=== PATIENT | male | born 1950 | race Caucasian/White ===

== ENCOUNTER 2022-03-29 06:35 | Outpatient (CLI) | payer OTHER, SELFPAY | END 2022-03-29 06:36 | disposition home or self-care (01) | LOC: AMB 04-11 11:48 | PROVIDERS: Visit Provider Family Medicine | DX: R55 Syncope and collapse (principal) | CPT/HCPCS: A0425; A0427 ==

== ENCOUNTER 2022-03-29 07:03 | Observation (INO) | payer OTHER, SELFPAY ==
[2022-03-29] VITALS (44 sets, daily range): BP systolic 79–157; BP diastolic 50–88; PULSE 47–65; RESP 16–18; TEMP 36.1–36.7; O2SAT 91–99; BMI 30.6
--- NOTE | 2022-03-29 07:11 | CRLHL7_ITS ---
For Patients: As a result of the Century Cures Act, medical imaging exams and procedure reports are released immediately into your electronic medical record. You may view this report before your referring provider. If you have questions, please contact your health care provider. INDICATION: lightheadedness TECHNIQUE: Chest 1 view COMPARISON: 09/25/2012 FINDINGS: Cardiovascular and mediastinum: Cardiac silhouette upper limits of normal with slight tortuosity of the aorta and mild vascular calcifications. Lungs and pleural spaces: Lungs are clear. No sign of infiltrate or mass. No sign of pleural effusion. No pneumothorax. Bones and soft tissues: Bilateral shoulder replacement hardware. IMPRESSION: No acute cardiopulmonary disease. Dictated by Torsten Ruffin MD @ 03/29/2022 8:18:11 AM (Electronically Signed)
--- NOTE | 2022-03-29 07:13 | ED.GENADULT ---
HPI - General Adult General Time Seen by Provider: 07:13 Date Seen: 03/29/22 Chief complaint: Dizziness/Vertigo Stated complaint: Low heartrate Time Seen by Provider: 03/29/22 07:11 Source: patient, EMS and RN notes reviewed Mode of arrival: ambulatory Limitations: no limitations History of Present Illness HPI narrative: 72-year-old male history of coronary stents who presents today by EMS for lightheadedness. Patient said he was fatigued and slept all day yesterday. Today he was at work became lightheaded and sweaty. He took 2 nitroglycerin and EMS was called. Per EMS on arrival patient's heart rate was in the 50s with hypotension. Atropine was given for concern of symptomatic bradycardia the patient was brought to the emergency department. Patient denies shortness of breath, chest pain, nausea, vomiting, diarrhea, abdominal pain, lower extremity swelling. He denies recent falls or injuries. No black or tarry stools. No new medications. Does note a little bit of a cough and has a history of pneumonia a couple months ago. Related Data Home Medications Medication Instructions Recorded Confirmed albuterol sulfate 90 mcg/actuation 2 puff inhalation Q4-6H PRN 01/02/22 03/29/22 aerosol inhaler atorvastatin 80 mg tablet 80 mg PO QDAY 01/02/22 03/29/22 clopidogrel 75 mg tablet 75 mg PO QDAY 01/02/22 03/29/22 isosorbide mononitrate 60 mg 60 mg PO DAILY 01/02/22 03/29/22 tablet,extended release 24 hr lisinopril 20 mg tablet 20 mg PO QDAY 01/02/22 03/29/22 metoprolol succinate 25 mg 25 mg PO DAILY 01/02/22 03/29/22 tablet,extended release 24 hr nitroglycerin 0.4 mg sublingual 0.4 mg sublingual Q5M PRN 01/02/22 03/29/22 tablet aspirin 81 mg tablet,delayed 81 mg PO DAILY 03/29/22 03/29/22 release (Adult Low Dose Aspirin) Allergies Allergy/AdvReac Type Severity Reaction Status Date / Time No Known Allergies Allergy Unknown Unverified 01/02/22 15:10 [facility] Medical History (Updated 03/29/22 @ 08:14 by Trino Hernandez MD) Nonmalignant tumors Surgical History (Updated 01/02/22 @ 15:18 by Alicia Dean) H/O laminectomy History of appendectomy History of bladder surgery History of intravascular stent placement History of tonsillectomy History of total replacement of left shoulder joint (05/17/14) History of total replacement of right shoulder joint (05/07/13) Family History (Updated 01/02/22 @ 15:05 by Bina Dan CMA) Father Liver cancer Sister Liver cancer Brother Heart disease Social History (Updated 01/02/22 @ 15:06 by Bina Dan CMA) Smoking Status: Current every day smoker What tobacco products do you use: cigarettes Do you use any of these nicotine containing products: None Second hand tobacco smoke exposure: No How often do you have a drink containing alcohol: never AUDIT-C Alcohol total score: 0 Non-prescribed substance use: denies use Are you now , , , , never or living with a partner: Social isolation score (0-1 are the most socially isolated patients): 0 Exam Narrative: Exam Narrative: General: Well-developed and well-nourished, no acute distress Head: Atraumatic and normocephalic Eyes: Pupils are equal reactive, extraocular motions intact, conjunctiva clear ENT: External nose and ears are normal, posterior pharynx without erythema or exudate Neck: No midline cervical tenderness, full spontaneous range of motion the neck, trachea midline, no adenopathy Heart: Regular rate and rhythm no murmurs or thrills Lungs: Clear to auscultation bilaterally without wheezes or crackles Abdomen: Soft, nontender, nondistended with active bowel sounds Musculoskeletal: No tenderness, deformity, or edema Neurologic: Awake, alert, and oriented x3, no gross focal neurologic deficits, cranial nerves intact as tested Psych: Mood and affect are appropriate Skin: No rashes Const: Vital Signs, click to edit/add: Vital Signs - 24 hr 03/29/22 07:11 03/29/22 07:16 03/29/22 07:19 Temperature 96.9 F L Pulse Rate 62 63 Pulse Rate [Right Radial] 50 L Respiratory Rate 18 Blood Pressure 94/62 Blood Pressure [Ri ght Upper Arm] 113/65 Pulse Oximetry 96 92 92 Oxygen Delivery Me thod Room Air 03/29/22 07:20 03/29/22 07:25 03/29/22 07:29 Temperature Pulse Rate 65 60 61 Pulse Rate [Right Radial] Respiratory Rate Blood Pressure 79/50 L Blood Pressure [Ri ght Upper Arm] Pulse Oximetry 91 92 95 Oxygen Delivery Me thod 03/29/22 07:30 03/29/22 07:32 03/29/22 07:35 Temperature Pulse Rate 64 65 55 L Pulse Rate [Right Radial] Respiratory Rate Blood Pressure 95/57 L Blood Pressure [Ri ght Upper Arm] Pulse Oximetry 96 98 98 Oxygen Delivery Me thod 03/29/22 07:37 03/29/22 07:40 03/29/22 07:42 Temperature Pulse Rate 54 L 53 L 56 L Pulse Rate [Right Radial] Respiratory Rate Blood Pressure 108/59 L 108/59 L Blood Pressure [Ri ght Upper Arm] Pulse Oximetry 98 98 99 Oxygen Delivery Me thod 03/29/22 07:45 03/29/22 07:47 03/29/22 07:50 Temperature Pulse Rate 54 L 57 L 51 L Pulse Rate [Right Radial] Respiratory Rate Blood Pressure 108/60 Blood Pressure [Ri ght Upper Arm] Pulse Oximetry 99 99 99 Oxygen Delivery Me thod Course Course Hospital Course: Patient seen immediately on arrival, prior records reviewed. Differential diagnosis includes but not limited to acute coronary syndrome, dysrhythmia, symptomatic bradycardia, electrolyte disturbance, medication reaction, sepsis. Patient presents with near-syncope/lightheadedness at work, and also fatigue yesterday. Patient took 2 nitroglycerin prior to EMS arrival was found to be hypotensive little bradycardic. He is feeling better now, in the emergency department heart rate in the 60s and blood pressure initially 110s over 60s. No focal findings on exam. EKG and labs are ordered. Will monitor in the emergency department, IV fluids are given for hypotension although this may have been related to his self nitroglycerin administration and the bradycardia could be from vasovagal response. EKG with right bundle venus block no acute ischemic changes. Home medications reviewed include Lipitor, Plavix, Imdur, lisinopril, metoprolol, nitroglycerin Reevaluation(s) Reevaluation #1: Patient's blood pressures are drifting down although heart rate remains in the 60s. IV fluids have been initiated. Reviewed prior outpatient records, no diagnosis of heart failure, no echocardiogram but patient is not on a diuretic so in absence diagnosis of heart failure, will proceed with fluid resuscitation. Time: 07:32 Reevaluation #2: Troponin is negative, blood pressures remain 100s over 50s to 60s, heart rate stable around 50. Lactate is normal, remaining labs and chest x-ray are pending. Anticipate sign out to oncoming provider. Spoke about code status with the patient, he does not want to be intubated but would be agreeable to resuscitation otherwise. Time: 07:50 Reevaluation #3: Care discussed with Dr. Morales, patient accepted for admission. COVID test is positive which may be the source of his generalized weakness and lack of appetite. Time: 08:11 Vital Signs Vital signs: Initial Vital Signs Temperature 96.9 F L 03/29/22 07:11 Temperature Source Temporal Artery Scan 03/29/22 07:11 Pulse Rate 50 L 03/29/22 07:11 Pulse Rhythm 03/29/22 07:11 Respiratory Rate 18 03/29/22 07:11 Blood Pressure 113/65 03/29/22 07:11 Blood Pressure Mean 81 03/29/22 07:11 Blood Pressure Position Semi-Fowlers 03/29/22 07:11 Pulse Oximetry 96 03/29/22 07:11 Oxygen Delivery Method 03/29/22 07:11 Vital Signs Temperature 96.9 F L 03/29/22 07:11 Pulse Rate 50 L 03/29/22 07:11 Respiratory Rate 18 03/29/22 07:11 Blood Pressure 113/65 03/29/22 07:11 Pulse Oximetry 96 03/29/22 07:11 Oxygen Delivery Method 03/29/22 07:11 Temperature 96.9 F L 03/29/22 07:11 Pulse Rate 51 L 03/29/22 07:50 Respiratory Rate 18 03/29/22 07:11 Blood Pressure 108/60 03/29/22 07:47 Pulse Oximetry 99 03/29/22 07:50 Oxygen Delivery Method 03/29/22 07:11 Medical Decision Making Lab Data Labs: Lab Results 03/29/22 03/29/22 03/29/22 Range/Units 07:17 07:24 07:24 WBC 5.37 (4.50-11.00) K/uL RBC 4.83 (4.30-5.90) m/uL Hgb 14.3 (13.5-17.5) gm/dL Hct 42.7 (37.0-53.0) % MCV 88 (80-100) fL MCH 30 (26-34) pg MCHC 34 (32-36) gm/dL RDW Coeff of Alin 13.0 (11.5-15.5) % Plt Count 178 (140-440) K/uL Neut % (Auto) 70.2 (42.0-72.0) % Lymph % (Auto) 17.3 L (20-44) % [place] % (Auto) 11.7 H (0.0-11.0) % Eos % (Auto) 0.0 (0.0-7.0) % Baso % (Auto) 0.4 (0.0-3.0) % Neut # (Auto) 3.77 (1.7-7.0) K/uL Lymph # (Auto) 0.90 (0.90-2.90) K/uL [place] # (Auto) 0.60 (0.00-0.90) K/UL Eos # (Auto) 0.00 (0.00-0.50) K/uL Baso # (Auto) 0.02 (0.00-0.30) K/uL Abs Immat Gran (auto) 0.02 (0.00-0.30) K/uL Imm/Tot Granulo (auto) 0.4 % Sodium 137 (135-149) mmol/L Potassium 4.4 (3.6-5.1) mmol/L Chloride 104 (96-114) mmol/L Carbon Dioxide 29 (20-32) mmol/L BUN 23 (7-30) mg/dL Creatinine 1.0 (0.5-1.5) mg/dL Estimated GFR 79 ml/min Glucose 111 (60-115) mg/dL Lactate (0.5-1.9) mmol/L Calcium 8.9 (8.4-10.6) mg/dL Magnesium (1.5-2.6) mg/dL NT-Pro-B Natriuret Pep (0-125) PG/mL SARS-CoV-2 (PCR) POSITIVE SARS-CoV-2 A (Negative) Influenza Type A (PCR) Negative PCR FLU A (Negative) Influenza Type B (PCR) Negative PCR FLU B (Negative) POC Troponin I (0.01-0.04) ng/ml 03/29/22 03/29/22 03/29/22 Range/Units 07:24 07:24 07:24 WBC (4.50-11.00) K/uL RBC (4.30-5.90) m/uL Hgb (13.5-17.5) gm/dL Hct (37.0-53.0) % MCV (80-100) fL MCH (26-34) pg MCHC (32-36) gm/dL RDW Coeff of Alin (11.5-15.5) % Plt Count (140-440) K/uL Neut % (Auto) (42.0-72.0) % Lymph % (Auto) (20-44) % [place] % (Auto) (0.0-11.0) % Eos % (Auto) (0.0-7.0) % Baso % (Auto) (0.0-3.0) % Neut # (Auto) (1.7-7.0) K/uL Lymph # (Auto) (0.90-2.90) K/uL [place] # (Auto) (0.00-0.90) K/UL Eos # (Auto) (0.00-0.50) K/uL Baso # (Auto) (0.00-0.30) K/uL Abs Immat Gran (auto) (0.00-0.30) K/uL Imm/Tot Granulo (auto) % Sodium (135-149) mmol/L Potassium (3.6-5.1) mmol/L Chloride (96-114) mmol/L Carbon Dioxide (20-32) mmol/L BUN (7-30) mg/dL Creatinine (0.5-1.5) mg/dL Estimated GFR ml/min Glucose (60-115) mg/dL Lactate 1.3 (0.5-1.9) mmol/L Calcium (8.4-10.6) mg/dL Magnesium (1.5-2.6) mg/dL NT-Pro-B Natriuret Pep 206 H (0-125) PG/mL SARS-CoV-2 (PCR) (Negative) Influenza Type A (PCR) (Negative) Influenza Type B (PCR) (Negative) POC Troponin I 0.00 L (0.01-0.04) ng/ml 03/29/22 Range/Units 07:24 WBC (4.50-11.00) K/uL RBC (4.30-5.90) m/uL Hgb (13.5-17.5) gm/dL Hct (37.0-53.0) % MCV (80-100) fL MCH (26-34) pg MCHC (32-36) gm/dL RDW Coeff of Alin (11.5-15.5) % Plt Count (140-440) K/uL Neut % (Auto) (42.0-72.0) % Lymph % (Auto) (20-44) % [place] % (Auto) (0.0-11.0) % Eos % (Auto) (0.0-7.0) % Baso % (Auto) (0.0-3.0) % Neut # (Auto) (1.7-7.0) K/uL Lymph # (Auto) (0.90-2.90) K/uL [place] # (Auto) (0.00-0.90) K/UL Eos # (Auto) (0.00-0.50) K/uL Baso # (Auto) (0.00-0.30) K/uL Abs Immat Gran (auto) (0.00-0.30) K/uL Imm/Tot Granulo (auto) % Sodium (135-149) mmol/L Potassium (3.6-5.1) mmol/L Chloride (96-114) mmol/L Carbon Dioxide (20-32) mmol/L BUN (7-30) mg/dL Creatinine (0.5-1.5) mg/dL Estimated GFR ml/min Glucose (60-115) mg/dL Lactate (0.5-1.9) mmol/L Calcium (8.4-10.6) mg/dL Magnesium 1.9 (1.5-2.6) mg/dL NT-Pro-B Natriuret Pep (0-125) PG/mL SARS-CoV-2 (PCR) (Negative) Influenza Type A (PCR) (Negative) Influenza Type B (PCR) (Negative) POC Troponin I (0.01-0.04) ng/ml ECG Data Attestation: I personally reviewed and interpreted this ECG as follows: Prior ECG tracings: available for review Interpretation: Normal sinus rhythm rate 70, no acute ST elevations or depressions, normal axis, right bundle-branch block, [place] 176. Compared to prior of 2013, right bundle-branch block is new. Discharge Plan Discharge Clinical Impression: Acute hypotension, COVID, Near syncope Prescriptions: No Action clopidogrel 75 mg tablet 75 mg PO QDAY lisinopril 20 mg tablet 20 mg PO QDAY isosorbide mononitrate 60 mg tablet extended release 24 hr 60 mg PO DAILY nitroglycerin 0.4 mg tablet, sublingual 0.4 mg sublingual Q5M PRN albuterol sulfate 90 mcg/actuation HFA aerosol inhaler 2 puff inhalation Q4-6H PRN atorvastatin 80 mg tablet 80 mg PO QDAY metoprolol succinate 25 mg tablet extended release 24 hr 25 mg PO DAILY aspirin [Adult Low Dose Aspirin] 81 mg tablet,delayed release (DR/EC) 81 mg PO DAILY Follow Up/Referrals: Provider,Not a Local [Primary Care Provider] -
[2022-03-29] MEDS: 0.9 % SODIUM CHLORIDE 1000 ml 1,000 ML IV (07:22)
[2022-03-29 07:33] LABS: Lactate* 1.3 mmol/L (0.5-1.9)
[2022-03-29 07:40] LABS: Basophils Absolute Auto 0.02 K/uL (0.00-0.30); Basophils Percent Auto 0.4 % (0.0-3.0); Hematocrit 42.7 % (37.0-53.0); Hemoglobin* 14.3 gm/dL (13.5-17.5); Immature Granulocytes Abs Auto 0.02 K/uL (0.00-0.30); Immature Granulocytes Pct Auto 0.4 %; Lymphocytes Percent Auto 17.3 % (20-44); Mean Corpuscular HGB Conc 34 gm/dL (32-36); Mean Corpuscular Hemoglobin 30 pg (26-34); Mean Corpuscular Volume 88 fL (80-100); Monocytes Percent Auto 11.7 % (0.0-11.0); Neutrophils Absolute Auto 3.77 K/uL (1.7-7.0); Neutrophils Percent Auto 70.2 % (42.0-72.0); Platelet Count* 178 K/uL (140-440); Red Blood Count 4.83 m/uL (4.30-5.90); White Blood Count* 5.37 K/uL (4.50-11.00)
--- OUTSIDE RECORDS SUMMARY | 2022-03-29 07:43 | XMS_ITS | Encounter Summary ---
:1950 Author Organization [facility] Address [address] [place] [address] Care Team Providers Name Role Phone Faiza Truong D.O. Primary Care Provider [phone] Reason for Referral Outpatient (Routine) - Closed Specialty Diagnoses / Procedures Referred By Contact Refer red To Contact Diagnoses Pre[facility]am [facility] 12 Lead D.OBhavesh [address] [place] [address] [phone] Referral ID Status Reason Start Date Expiration Date Visits Requ ested Visits Authorized [id number] Closed 03/20/2022 03/20/2023 1 1 T ROOM ATTENDANT Reason for Visit Reason Comments Pre-op Exam Pre op physical for colonosc opy scheduled for 04/09/2022 at [facility] with Dr Calvin Appointment Request (Routine) - Closed Specialty Diagnoses / Procedures Referred By Contact Refer red To Contact Family Medicine Faiza Truong D.O. [address] [place] [phone] Referral ID Status Reason Start Date Expiration Date Visits Requ ested Visits Authorized [id number] Closed 01/15/2022 01/15/2023 1 Encounter Details Date Type Department Care Team Description 03/20/2022 Office Visit Department of [facility] Preoperativ e Exam (Primary Dx); Internal Medicine in , [place] Abuse Tobacco Smoking; [place], [place] [address] Coronary Stent Status Post; [address] [place], [place] Hypertensive Heart And Chron ic Kidney Disease Without Heart Failure And With Stage 2 (Mild) Chronic Kidney Disease[facility] [place] [address] Tobacco Abuse Counseling; [phone] Hyperlipidemia Social History Tobacco Use Types Packs/Day Years Used Date Smoking Tobacco: Some Days Cigarettes 0.3 52 Smokeless Tobacco: Never Tobacco Cessation: Ready to Quit: No; Co unseling Given: Yes Comments: does have a few cigarettes per week. Alcohol Use Standard Drinks/Week Comments No 0 (1 standard drink = 0.6 oz pure alcoho l) Alcohol Habits Answer Date Recorded How often do you have a drink containing alcohol? Monthly or less 04/16/2019 How many drinks containing alcohol do you have on a 1 or 2 04/16/2019 typical day when you are drinking? How often do you have six or more drinks on one Never 04/16/2019 occasion? Social Isolation Answer Date Recorded In a typical week, how many times do you talk on the phone N ever 04/16/2019 with family, friends, or neighbors? How often do you get together with friends or relatives? Twi ce a week 04/16/2019 How often do you attend jehovah's witness or confucianism services? Never 04/16/2019 Do you belong to any clubs or organizations such as jehovah's witness N o 04/16/2019 groups, unions, fraternal or athletic groups, or school groups? How often do you attend meetings of the clubs or Not asked organizations you belong to? Are you now , , , , never Not asked or living with a partner? Physical Activity Answer Date Recorded On average, how many days per week do you engage in moderate 3 days 04/16/2019 to strenuous exercise (like walking fast, running, jogging, dancing, swimming, biking, or other activities that cause a light or heavy sweat)? On average, how many minutes do you engage in exercise at No t asked this level? Financial Resource Strain Answer Date Recorded How hard is it for you to pay for the very basics like Not h renata at all 04/16/2019 food, housing, medical care, and heating? Intimate Partner Violence Answer Date Recorded Within the last year, have you been afraid of your partner o r No 04/16/2019 ex-partner? Within the last year, have you been humiliated or emotionall y No 04/16/2019 abused in other ways by your partner or ex-partner? Within the last year, have you been kicked, hit, slapped, or No 04/16/2019 otherwise physically hurt by your partner or ex-partner? Within the last year, have you been raped or forced to have any No 04/16/2019 kind of sexual activity by your partner or ex-partner? Food Insecurity Answer Date Recorded Within the past 12 months, you worried that your food would Never true 04/16/2019 run out before you got money to buy more. Within the past 12 months, the food you bought just didn't N ever true 04/16/2019 last and you didn't have money to get more. Transportation Needs Answer Date Recorded In the past 12 months, has lack of transportation kept you f rom No 04/16/2019 medical appointments or from getting medications? In the past 12 months, has lack of transportation kept you f rom No 04/16/2019 meetings, work, or getting things needed for daily living? Education Answer Date Recorded What is the highest level of school Bachelor's degree (e.g., BA, AB, 04/16/2019 you have completed or the highest BS) degree you have received? 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 documented as of this encounter Last Filed Vital Signs Vital Sign Reading Time Taken Comments Blood Pressure 133/76 03/20/2022 3:13 PM GUEST ROOM ATTENDANT Pulse 80 03/20/2022 3:13 PM GUEST ROOM ATTENDANT Temperature 36.8 ??C (98.3 ??F) 03/20/2022 3:13 PM GUEST ROOM ATTENDANT Respiratory Rate 20 03/20/2022 3:13 PM GUEST ROOM ATTENDANT Oxygen Saturation 95% 03/20/2022 3:13 PM GUEST ROOM ATTENDANT room ai r Inhaled Oxygen Concentration - - Weight 92.5 kg (203 lb 14.8 oz) 03/20/2022 3:13 PM GUEST ROOM ATTENDANT Height 172 cm (5' 7.72) 03/20/2022 3:13 PM GUEST ROOM ATTENDANT Body Mass Index 31.27 03/20/2022 3:13 PM GUEST ROOM ATTENDANT documented in this encounter Patient Instructions Patient InstructionsFaiza Truong D.O. - 03/20/2022 3:30 PM GUEST ROOM ATTENDANT Stop Plavix 5 days before procedure Continue with the aspirin due to coronary stents T ROOM ATTENDANT documented in this encounter H&P Notes Faiza Truong D.O. - 03/20/2022 3:30 PM CST INTERNAL MEDICINE PREOPERATIVE EXAM: DATE OF SERVICE 03/20/[address] [facility] CHIEF COMPLAINT/REASON FOR VISIT Preoperative exam Chief Complaint Patient presents with Pre-op Exam Pre op physical for colonoscopy scheduled for 04/09/2022 at [facility] with Dr Calvin REFERRED BY/ SURGEON: HISTORY OF PRESENT ILLNESS Seven Salazar is a pleasant 72-year-old male with a the past medical history significant for coronary disease status post stenting 2016, history of ongoing tobacco use, hyperlipidemia presents today for his preoperative evaluation to undergo screening colonoscopy. From a cardiovascular standpoint, the patient has had history of coronary disease with stable angina. He has had multiple stents placed back in 2017 this was followed by a non ST elevation IA in July of 2017 with repeat coronary angiogram revealing nonobstructive but diffuse coronary artery disease. . He has been managed with dual antiplatelet therapy Imdur beta-muna and dietary modifications. Unfortunately he continues to smoke but has decreased his tobacco use significantly to 1 pack a week. He was provided with counseling on importance of complete cessation due to his history. The patient rod his feet most of the day, continues to be active and work at [employer]. Can perform more than 4 Mets with no significant cardiopulmonary symptoms. He denies any melena or hematochezia he denies any new GI symptoms, no upper respiratory infection genitourinary symptoms. We discussed stopping Plavix 5 days prior to procedure but he will continue with aspirin. He can otherwise continue the rest of his o ther medications. No history of PE DVT no history of anesthesia reaction. 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 Per X-Ray Depression Anxiety 03/25/2016 DJD (OA) Knee Guy 09/30/2013 Elevated Sedimentation Rate 02/15/2010 Erosions Antral 07/03/2015 Hernia Diaphragmatic Without Obstruction 12/24/2011 Hyperlipidemia 05/15/2015 Hypertensive Heart And Chronic Kidney Disease Without Heart Failure And With Stage 2 (Mild) ChronicKidney Disease 03/31/2017 Impaired Fasting Glucose 04/16/2019 Insomnia 08/26/2016 Lipoma Skin 02/12/2010 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[facility]) 03/18/2010 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, status post excision Mass Kidney 03/15/2015 Migraine Headache 07/01/2011 Myalgia 04/17/2015 Non-ST Elevation Myocardial Infarction ([facility]) 03/31/2017 Obesity NOS 02/15/2010 Pain Back 07/03/2015 Polymyalgia Rheumatica ([facility]) 04/17/2015 Presbyopia 10/07/2011 Reflux Esophageal 12/24/2011 Seizure Partial Complex ([facility]) 03/23/2004 Stricture Urethra 02/05/2016 Stroke ([facility]) 03/23/2004 Past Surgical History: Procedure Laterality Date APPENDECTOMY 02/23/1968 ARTHROPLASTY OF SHOULDER Right 05/07/2013 CATARACT EXTRACTION AND INSERTION OF INTRAOCULAR LENS Right 08/16/2008 CATARACT EXTRACTION AND INSERTION OF INTRAOCULAR LENS Left 02/22/2009 CERVICAL LAMINECTOMY 05/31/1999 Left C5-C6 foraminotomy and hemilaminectomy, left C6-C7 foraminotomy and hemilaminectomy and diskectomy. COLONOSCOPY 2005 COLONOSCOPY 11/26/2011 Repeat in 10 years CORONARY STENT PLACEMENT 03/22/2017 RCA and left circumflex CORONARY STENT PLACEMENT 03/24/2017 mid LAD EXCISION LIPOMA 02/19/2010 EXCISION LIPOMA Posterior 07/16/1999 >Excision of large back lipoma. EXCISION OF LESION OF SKIN 06/04/2013 Dermal nevus on left cheek/nasolabial fold HEAD & NECK SKIN LESION EXCISIONAL BIOPSY 04/11/1998 Excision of benign lesion of scalp and neck SQUAMOUS CELL CARCINOMA EXCISION 12/31/2017 Left superior helix TRANSURETHRAL RESECTION OF BLADDER TUMOR 02/19/2010 Non invasive papillary urothelial carcinoma, Grade 1 of 3 Family History Problem Relation Age of Onset Hypertension Mother Cataracts Mother Glaucoma Mother Cancer Father Hearing loss Father Parkinsons disease Father Pancreatic cancer Father Liver cancer Father Cancer Sister Lung cancer Sister Hypertension Brother Asthma Brother Coronary artery disease Brother Heart attack Brother Social History Socioeconomic History Marital status: Spouse name: Not on file Number of children: Not on file Years of education: Not on file Highest education level: Bachelor's degree (e.g., BA, AB, BS) Occupational History Not on file Tobacco Use Smoking status: Some Days Packs/day: 0.25 Years: 52.00 Pack years: 13.00 Types: Cigarettes Smokeless tobacco: Never Tobacco comments: does have a few cigarettes per week. Vaping Use Vaping Use: never used Substance and Sexual Activity Alcohol use: No Drug use: No Sexual activity: Defer Other Topics Concern Not on file Social History Narrative Caffeine: 2 cups coffee daily Social Determinants of Health Financial Resource Strain: Not on file Food Insecurity: Not on file Transportation Needs: Not on file Physical Activity: Not on file Stress: Not on file Social Connections: Not on file Intimate Partner Violence: Not on file Housing Stability: Not on file Social History Social History Narrative Caffeine: 2 cups coffee daily Current Outpatient Medications on File Prior to Visit Medication Sig Dispense Refill albuterol 90 mcg/actuation inhaler INHALE 2 PUFFS BY MOUTH 4 TIMES DAILY NEEDED FOR WHEEZING FORSHORTNESS OF BREATH 54 g [address] tablet Take 81 mg by mouth daily. atorvastatin (LIPITOR) 80 mg tablet Take 1 tablet (80 mg total) by mouth at bedtime. 90 tablet 3 clopidogreL (PLAVIX) 75 mg tablet Take 1 tablet by mouth once daily 90 tablet 3 isosorbide mononitrate (IMDUR) 60 mg 24 hr tablet TAKE 1 TABLET BY MOUTH ONCE DAILY IN THE MORNING 90 tablet 3 lisinopriL (PRINIVIL,ZESTRIL) 20 mg tablet Take 1 tablet (20 mg total) by mouth every morning. 90 tablet 3 metoprolol succinate (TOPROL-XL) 25 mg 24 hr tablet Take 1 tablet (25 mg total) by mouth daily. Do not crush or chew. 90 tablet 3 nitroglycerin (NITROSTAT) 0.[address] 1 tablet (0.4 mg total) under the tongue every 5 (five) minutes as needed for chest pain. Place 1 tab under the tongue at first sign of chest pain. Repeat dose every 5 min up to 2 additional doses if chest pain continues. If no relief in 5 min, call 911. 25 tablet 11 No current facility-administered medications on file prior to visit. SYSTEMS REVIEW A comprehensive review of systems is negative except for those items stated within the content of the HPI. Blood pressure 133/76, pulse 80, temperature 36.8 ??C, temperature source Temporal, resp. rate 20, height 172 cm, weight 92.5 kg, SpO2 95 %. PHYSICAL EXAMINATION GENERAL: Well-nourished, well-developed 72 y.o. year old in no apparent distress. Awake, alert, age appropriate. HEENT: Head is normocephalic, atraumatic. Bilateral pupils are equal, reactive to light, and accommodation. EOMs intact. Conjunctivae and sclera are clear. Bilateral external ears nontender to manipulation with clear canals. Bilateral TMs normal. Hearing is grossly normal. Nares patent with normal mucosa. Oropharynx pink and moist without exudate or erythema. NECK: Neck is supple. Thyroid is normal size and shape. Trachea is midline. CARDIOVASCULAR: Regular rate and rhythm. S1, S2 without murmurs. No rubs or gallops. No Lower extremity edema LUNGS: Clear to auscultation in bilateral anterior and posterior chest with easy respirations. ABDOMEN: Bowel sounds present throughout. Rounded, soft, without tenderness to palpation with no organomegaly. SKIN: Warm, pink, and dry. No rashes, excoriations, open areas. MUSCULOSKELETAL: normal musculature, and joint structure, Normal range of motion in all extremities.5/5 strength in bilateral upper and lower extremities with full ROM. LYMPHATIC: No cervical, submandibular, supraclavicular adenopathy. NEUROLOGIC: Alert and oriented x 3. CN II-XII grossly intact. Bilateral brachioradialis, patellar, and Achilles tendon DTRs 2+/4+ bilaterally. Strength and tone normal in upper and lower extremities. Reflexes are symmetric DIAGNOSTICS: Lab Results Component Value Date WBC 11.2 (H) 12/09/2021 HGB 14.2 12/09/2021 HCT 41.7 12/09/2021 MCV 88 12/09/2021 PLT 211 12/09/2021 Lab Results Component Value Date NA 139 03/19/2022 CL 99 03/19/2022 CREATININE 0.98 03/19/2022 EGFR 81 03/19/2022 BUN 21 03/19/2022 ANIONGAP 10 03/19/2022 GLUCOSE 70 03/19/2022 GLUCOSE CANCELED 03/19/2022 CALCIUM 10.2 03/19/2022 Latest Reference Range & Units 03/19/22 14:56 Sodium, P 135 - 145 mmol/L 139 Potassium, P 3.6 - 5.2 mmol/L 4.6 Chloride, P 98 - 107 mmol/L 99 Bicarbonate, P 22 - 29 mmol/L 30 (H) Anion Gap, P 7 - 15 10 BUN (Blood Urea Nitrogen), P 8 - 24 mg/dL 21 Creatinine 0.74 - 1.35 mg/dL 0.98 Estimated GFR (eGFR) >=60 mL/min/BSA 81 Calcium, Total, P 8.8 - 10.2 mg/dL 10.2 Glucose 70 - 100 mg/dL 70 Glucose, P mg/dL CANCELED (H): Data is abnormally high EKG 03/20/2022: Normal sinus rhythm Premature atrial complexes Low voltage QRS Right bundle branch block with secondary ST-T abnormalities When compared with ECG of 02-MAR-2018 12:39, No significant change was found Reviewed by LETTY Singh IMPRESSION/REPORT/PLAN Seven was seen today for pre-op exam. Diagnoses and all orders for this visit: Preoperative Exam Abuse Tobacco Smoking Coronary Stent Status Post Hypertensive Heart And Chronic Kidney Disease Without Heart Failure And With Stage 2 (Mild) Chronic Kidney Disease Tobacco Abuse Counseling Hyperlipidemia rom a cardiovascular standpoint, the patient has had history of coronary disease with stable angina.He has had multiple stents placed back in 2017 this was followed by a non ST elevation IA in July of 2017 with repeat coronary angiogram revealing nonobstructive but diffuse coronary artery disease. .He has been managed with dual antiplatelet therapy Imdur beta-muna and dietary modifications. Unfortunately he continues to smoke but has decreased his tobacco use significantly to 1 pack a week. Hewas provided with counseling on importance of complete cessation due to his history. The patient is on his feet most of the day, continues to be active and work at [employer]. Can perform more than 4 Mets with no significant cardiopulmonary symptoms. He denies any melena or hematochezia he denies any newGI symptoms, no upper respiratory infection genitourinary symptoms. We discussed stopping Plavix 5 days prior to procedure but he will continue with aspirin. He can otherwise continue the rest of his ot her medications. No history of PE DVT no history of anesthesia reaction. Seven Salazar presented today for preoperative examination. Based on his history and examination they are medically optimized for surgical intervention from the perspectiveof internal medicine. No further workup is required at this time. Electronically signed by: Faiza Truong D.O. 03/20/22 3:27 PM GUEST ROOM ATTENDANT T ROOM ATTENDANT documented in this encounter Plan of Treatment Upcoming Encounters Date Type Specialty Care Team Description 04/12/2022 Office Visit Cardiovascular Disease Simone Gooden AP RN, C.N.P. [address] [address] [phone] (Wo rk) documented as of this encounter Results ECG 12 Lead (03/20/2022 4:21 PM GUEST ROOM ATTENDANT) P athologist Signature Ventricular Rate 72 BPM MUSE ECG/Min [place] Interval 194 ms MUSE QRSD Interval 130 ms MUSE QT Interval 424 ms MUSE QTC Interval 464 ms MUSE P [place] 81 degrees MUSE R [place] 20 degrees MUSE T Wave [place] 50 degrees MUSE Specimen Anatomical Collection Method Collection Time Receive d Time (Source) Location / / Volume Laterality 03/20/2022 4:21 PM 4:32 GUEST ROOM ATTENDANT PM GUEST ROOM ATTENDANT Impressions MUSE - 03/20/2022 4:32 PM GUEST ROOM ATTENDANT Normal sinus rhythm Premature atrial complexes Low voltage QRS Right bundle branch block with secondary ST-T abnormalities When compared with ECG of 02-MAR-2018 12 :39, No significant change was found Reviewed by LETTY Singh Narrative This result has an attachment that is no t available. Procedure Note Javi Dow M.D. - 03/20/2022Format ting of this note might be different from the original. IMPRESSION: Normal sinus rhythm Premature atrial complexes Low voltage QRS Right bundle branch block with secondary ST-T abnormalities When compared with ECG of 02-MAR-2018 12 :39, No significant change was found Reviewed by LETTY Singh Faiza Truong D.O. ECG ORDERABLES Performing Organization Address City/State/ZIP Code Phon e Number MUSE MUSE NA documented in this encounter Visit Diagnoses Diagnosis Preoperative Exam - Primary Abuse Tobacco Smoking Coronary Stent Status Post Hypertensive Heart And Chronic Kidney Di sease Without Heart Failure And With Stage 2 (Mild) Chronic Kidney Disease Tobacco Abuse Counseling Hyperlipidemia Preoperative Exam documented in this encounter Additional Health Concerns Assessment Noted Time PHQ-9 Depression Total Score: 3 10/31/2020 10:00 AM CD T documented as of this encounter Care Teams Travel Freight And Passenger Agent Relationship Specialty Start Date End Date Faiza Truong D.O. PCP - General Internal Medicine 10/19/19 [address] [place] [phone] documented as of this encounter
--- OUTSIDE RECORDS SUMMARY | 2022-03-29 07:43 | XMS_ITS | Encounter Summary ---
:1950 Author Organization [facility] Address [address] [place] [address] Care Team Providers Name Role Phone Faiza Truong D.O. Primary Care Provider [phone] Reason for Visit Reason Comments Med Refill Encounter Details Date Type Department Care Team Description 01/14/2022 Refill Department of Internal Jillian Gil M.D. Med Refill Medicine in [facility] [address] [place] [address] [address] [place] [address] [facility] [phone] Social History Tobacco Use Types Packs/Day Years Used Date Smoking Tobacco: Some Days Cigarettes 0.3 52 Smokeless Tobacco: Never Comments: does have a few cigarettes per [...] week 04/16/2019 How often do you attend buddhist or scientology services? 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 [address] [phone] (Wo rk) documented as of this encounter Visit Diagnoses Not on filedocumented in this encounter Additional Health Concerns Assessment Noted Time PHQ-9 Depression Total Score: 3 10/31/2020 10:00 AM CD T documented as of this encounter Care Teams [place] Relationship Specialty Start Date End Date Faiza Truong D.O. PCP - General Internal Medicine 10/19/[address] [phone] documented as of this encounter
--- OUTSIDE RECORDS SUMMARY | 2022-03-29 07:43 | XMS_ITS | Clinical Summary ---
:1950 Author Organization [facility] Address [address] [place] [address] Care Team Providers Name Role Phone Faiza Truong D.O. Primary Care Provider [phone] Source Comments Patient records contain information from all sites at [facility]. For routine questions regarding patient records, call [phone] during business hours, M-F 8:00 AM - 5:00 PM Central Time. Record requests for emergency care only can be directed to [phone] at any time.[facility] Allergies Active Allergy Reactions Severity Noted Date Comments Bupropion Hcl Other (see comments) 02/06/2015 Eliceo listed no reactions. Suic idal thoughts. Citalopram Diarrhea 06/10/2016 Influenza Virus Vaccine Other (see comments) 5 Sickness, Bivalent Eliceo listed n o reactions. Pravastatin Myalgia, Other (see 03/20/2015 comments) Medications Medication Sig Dispensed Refills Start Date End Date Status aspirin [address] Take 81 mg by 0 Active tablet mouth daily. nitroglycerin Place 1 tablet 25 tablet 11 02/13/2021 Active (NITROSTAT) 0.4 mg SL (0.4 mg total) tablet under the tongue every 5 (five) minutes as needed for chest pain. Place 1 tab under the tongue at first sign of chest pain. Repeat dose every 5 min up to 2 additional doses if chest pain continues. If no relief in 5 min, call 466. lisinopriL Take 1 tablet (20 90 tablet 3 05/01/2021 Active (PRINIVIL,ZESTRIL) 20 mg total) by mg tabletIndications: mouth every Hypertensive Heart morning. And Chronic Kidney Disease Without Heart Failure And With Stage 2 (Mild) Chronic Kidney Disease atorvastatin Take 1 tablet (80 90 tablet 3 05/01/2021 05/01/20 22 Active (LIPITOR) 80 mg mg total) by tabletIndications: mouth at bedtime. Hyperlipidemia metoprolol succinate Take 1 tablet (25 90 tablet 3 05/01/2021 Active (TOPROL-XL) 25 mg 24 mg total) by hr tabletIndications: mouth daily. Do Hypertensive Heart not crush or And Chronic Kidney chew. Disease Without Heart Failure And With Stage 2 (Mild) Chronic Kidney Disease clopidogreL (PLAVIX) Take 1 tablet by 90 tablet 3 10/26/2021 Active 75 mg tablet mouth once daily albuterol 90 INHALE 2 PUFFS BY 54 g 3 01/16/2022 Active mcg/actuation inhaler MOUTH 4 TIMES DAILY NEEDED FOR WHEEZING FOR SHORTNESS OF BREATH isosorbide TAKE 1 TABLET BY 90 tablet 3 02/26/2022 A ctive mononitrate (IMDUR) MOUTH ONCE DAILY 60 mg 24 hr IN THE MORNING tabletIndications: Coronary Stent Status Post, Hypertensive Heart And Chronic Kidney Disease Without Heart Failure And With Stage 2 (Mild) Chronic Kidney Disease Active Problems Patient Care Coordination Note Formatting of this note might be differe nt from the original. 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 Anemia 03/31/2017 Tobacco Use 03/31/2017 Hypertensive Heart And Chronic Kidney Disease Without Heart Failure And 03/31/2017 With Stage 2 (Mild) Chronic Kidney Disease Pain Epigastric 03/31/2017 Insomnia 08/26/2016 Depression Anxiety 03/25/2016 Overview: Depression Anxiety Bronchitis Chronic 07/03/2015 Overview: Bronchitis Chronic Abuse Tobacco Smoking 07/03/2015 Arthralgia 07/03/2015 Arthritis Shoulder 07/03/2015 Erosions Antral 07/03/2015 Pain Back 07/03/2015 High Risk Medication 05/15/2015 Hyperlipidemia 05/15/2015 Leukocytosis 05/15/2015 Myalgia 04/17/2015 Cyst Renal 03/15/2015 Overview: There is a 2.2 x 2.5 x 2.7 cm partially exophytic anechoic structure arising from the inferior pole of the right kidney per ultrasound on 10/21/2011. Degeneration Disc Lumbar 09/30/2013 Overview: Per X-Ray Fatigue 09/30/2013 Primary Osteoarthritis Knee Bilateral 09/30/2013 Intraocular Lens Implant Status Post 09/30/2013 Tag Skin 09/30/2013 Tumor Skin Uncertain Behavior 04/30/2013 Reflux Esophageal 12/24/2011 Hernia Diaphragmatic Without Obstruction 12/24/2011 Presbyopia 10/07/2011 Migraine Headache 07/01/2011 Dyspnea NOS 02/11/2011 Pain Shoulder 03/26/2010 Malignant Neoplasm Of Bladder Lateral Wall 03/18/2010 Overview: Malignant Neoplasm of Lateral Wall of Ur inary Bladder Degeneration Disc Cervical 02/24/2010 Overview: Per X-Ray Elevated Sedimentation Rate 02/15/2010 Obesity NOS 02/15/2010 Lipoma Skin 02/12/2010 Resolved Problems Problem Noted Date Resolved Date Annual Medicare Examination Return 01/13/201804/21 Non-ST Elevation Myocardial Infarction 03/25/2017 0 05/07/2018 Corticosteroid Treatment Corporate Quality Manager Systemic 03/14/2017 05/07/2018 Unspecified Bulbous Urethral Stricture Male 02/05/2016 11/01/2019 Polymyalgia Rheumatica 04/17/2015 05/07/2018 Overview: Polymyalgia Rheumatica (PMR) Seizure Partial Complex 03/23/2004 05/07/2018 Stroke 03/23/2004 05/07/2018 Encounters Date Type Specialty Care Team Description 03/20/2022 [facility] Laboratory Medicine Carol Preoper ative Exam Encounter Faiza ceron D.O. 03/20/2022 Office Visit Count Includes [facility] Internal Carol Preopera tive Exam (Primary Dx); Medicine Faiza ceron, Abuse Tobacco S moking; D.O. Coronary Stent Status Post; Hypertensive He art And Chronic Kidney Disease Without Heart Failure And With Stage 2 (Mild) Chronic Kidney Disease; Tobacco Abuse C ounseling; Hyperlipidemia 03/19/2022 [facility] Laboratory Medicine Carol Screeni ng Examination Diabetes Mellitus; Encounter Faiza ceron, Monitoring For Therapeutic Drug Therapy D.O. 03/05/2022 Orders Only Carol Screening Exam ination Diabetes Mellitus; Faiza ceron, Monitoring For Therapeutic Drug Therapy D.O. 02/26/2022 Refill Cardiovascular Disease Simone Gooden R efill C, WIND OPERATIONS SUPERVISOR, C.N.P. 01/28/2022 Office Visit Urology Nell, Personal Histor y Of Malignant Neoplasm Of Bladder (Primary Dx); Javid Tobias Postprocedural Bulbous Urethral Stricture Male 01/28/2022 Ancillary Procedure 2022 [facility] Laboratory Medicine Nell, Personal History Of Encounter Javid Tobias Malignant Neopl asm Of Bladder 01/14/2022 Refill Count Includes [facility] Internal Jeffery, Med Refil l Benji Maguire M.D. from Last 3 Months Immunizations Name Administration Dates Next Due BCG 08/20/2010, 05/07/2010, 04/23/2010 DTaP (Infanrix, Tripedia) 02/12/2010 HZV (ZOSTAVAX) 05/01/2021 (Deferred: Patient decision) Influenza, Seasonal, Injectable 02/04/2012 Influenza, Unspecified 03/04/2014, 02/04/2012, 07/01/2011 PCV13 01/24/2015 PPSV23 02/05/2016, 01/17/2014 SARS-COV-2 (COVID-19) - PFIZER (12 03/06/2021, 07/28/2020, 0 07/07/2020 years or older) Tdap 10/31/2020, 02/12/2010, 02/12/2010 influenza high dose (65 years or 05/01/2021 (Deferred: Patie nt decision) older) (PF) Family History Medical History Relation Name Comments Asthma Brother Coronary artery disease Brother Heart attack Brother Hypertension Brother Cancer Father Hearing loss Father Liver cancer Father Pancreatic cancer Father Parkinsons disease Father Cataracts Mother Glaucoma Mother Hypertension Mother Cancer Sister Lung cancer Sister Relation Name Status Comments Brother Father Mother Sister Social History Tobacco Use Types Packs/Day Years [...] week 04/16/2019 How often do you attend sikh or yarsani services? 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 Last Filed Vital Signs Vital Sign Reading Time Taken Comments Blood Pressure 133/76 03/20/2022 3:13 PM DISTRIBUTION TRANSFORMER ASSEMBLER Pulse 80 03/20/2022 3:13 PM DISTRIBUTION TRANSFORMER ASSEMBLER Temperature 36.8 ??C (98.3 ??F) 03/20/2022 3:13 PM DISTRIBUTION TRANSFORMER ASSEMBLER Respiratory Rate 20 03/20/2022 3:13 PM DISTRIBUTION TRANSFORMER ASSEMBLER Oxygen Saturation 95% 03/20/2022 3:13 PM DISTRIBUTION TRANSFORMER ASSEMBLER room ai r Inhaled Oxygen Concentration - - Weight 92.5 kg (203 lb 14.8 oz) 03/20/2022 3:13 PM DISTRIBUTION TRANSFORMER ASSEMBLER Height 172 cm (5' 7.72) 03/20/2022 3:13 PM DISTRIBUTION TRANSFORMER ASSEMBLER Body Mass Index 31.27 03/20/2022 3:13 PM DISTRIBUTION TRANSFORMER ASSEMBLER Plan of Treatment Upcoming Encounters Date Type Specialty Care Team Description 04/12/2022 Office Visit Cardiovascular Disease Simone Gooden AP RN, C.N.P. [address] [phone] (Wo rk) Health Maintenance Due Date Last Done Comments CT Colonography 1950 Cologuard 1950 FIT 1950 Hepatitis A Vaccines (1 of 2 - 1951 Risk 2-dose series) Zoster Vaccines (1 of 2) 1999 Hepatitis B Vaccines (1 of 3 - 2009 Risk 3-dose series) COVID-19 Vaccine (4 - Booster for 05/01/2021 03/06/2021, , Pfizer series) 07/07/2020 Colonoscopy 11/25/2021 11/26/2011 Colorectal Cancer Screening 11/25/2021 Influenza Vaccine (#1) 2022 03/04/2014, 02/04/2012, 02/04/2012, Additional history exists Creatinine Level 03/19/2023 03/19/2022, 04/30/2021, 08/23/2020, Additional history exists Fasting Glucose for Diabetes 03/19/2023 03/19/2022, 04/30/ 021, Screening 08/23/2020, Additional history exists Potassium Level 03/19/2023 03/19/2022, 04/30/2021, 08/23/2020, Additional history exists Sodium Level 03/19/2023 03/19/2022, 04/30/2021, 08/23/2020, Additional history exists Office Visit for Blood Pressure 03/20/2023 03/20/2022 Check / Re-check Tobacco Cessation counseling 03/20/2023 03/20/2022 Visit: Chronic Disease, age 18+ 03/20/2023 03/20/2022 Lipid (Cholesterol) Screening 04/30/2026 04/30/2021, 2019, 04/12/2019, Additional history exists DTaP,Tdap,and Td Vaccines (3 - Td 10/31/2030 10/31/2020, , or Tdap) 02/12/2010, Additional history exists Hepatitis C Screening Completed 07/18/2015 Pneumococcal vaccine (65+ years) Completed 02/05/2016, , 01/17/2014 Abdominal Aortic Aneurysm (AAA) Completed 03/19/2017, 06/2014, Screen 01/24/2014, Additional history exists Fall Risk Screen (Annual) Completed 12/21/2021 Depression Screening (Annual Completed 03/20/2022 PHQ-2) Medical Devices Implanted Type Area Quality Assurance Manager Device Shelf Model / Identifier Expiration Serial / Date Lot Synergy 2.75 X 38 - Fernando [id number] Cardiac [place] Implanted: Qty: 1 on 03/22/2017 Stent Scientific Description: Device Quality Assurance Manager - [employer]mo [email or web address]. Device Status Text - [id number]. Alpine Stent 3.0 X 18 - Fernando [id number] Cardiac Stent [place]eller Implanted: Qty: 1 on 03/24/2017 Description: Device Quality Assurance Manager - Abbot t Vascular. Device Status Text - [id number]. Shoulder Implant Shoulder Implant Shoulder Procedures Procedure Name Priority Date/Time Associated Diagnosis Comme nts ECG Routine 03/20/2022 4:21 PM Preoperative Exam Resu lts for this DISTRIBUTION TRANSFORMER ASSEMBLER procedure are i n the results section. BASIC METABOLIC Routine 03/19/2022 2:56 PM Monitoring For Resu lts for this PANEL, S/P DISTRIBUTION TRANSFORMER ASSEMBLER Therapeutic Drug procedure a re in Therapy the results section. GLUCOSE, FASTING, Routine 03/19/2022 2:56 PM Screening Examina tion Results for this S/P DISTRIBUTION TRANSFORMER ASSEMBLER Diabetes Mellitus procedure are in the results section. UROLOGY IMAGE EXAM Routine 01/28/2022 9:35 AM Res ults for this CDT procedure are i n the results section. CYTOLOGY NON-CUSTOMER RELATIONS ASSISTANT Routine 2022 2:55 PM Personal History O f Results for this (SCHEDULED) CDT Malignant Neoplasm Of proced ure are in Bladder the results section. from Last 3 Months Results ECG 12 Lead (03/20/2022 4:21 PM DISTRIBUTION TRANSFORMER ASSEMBLER) P athologist Signature Ventricular Rate 72 BPM MUSE ECG/Min MT Interval 194 ms MUSE QRSD Interval 130 ms MUSE QT Interval 424 ms MUSE QTC Interval 464 ms MUSE P [place] 81 degrees MUSE R [place] 20 degrees MUSE T Wave [place] 50 degrees MUSE Specimen Anatomical Collection Method Collection Time Receive d Time (Source) Location / / Volume Laterality 03/20/2022 4:21 PM 4:32 DISTRIBUTION TRANSFORMER ASSEMBLER PM DISTRIBUTION TRANSFORMER ASSEMBLER Impressions MUSE - 03/20/2022 4:32 PM DISTRIBUTION TRANSFORMER ASSEMBLER Normal sinus rhythm Premature atrial complexes Low [...] found Reviewed by LETTY Singh Faiza Truong D.OBhavesh ECG ORDERABLES Performing Organization Address City/State/ZIP Code Phon e Number MUSE MUSE NA Glucose, Fasting (03/19/2022 2:56 PM DISTRIBUTION TRANSFORMER ASSEMBLER) P athologist Signature Glucose, P 70 70 - 100 03/19/2022 [place] mg/dL 6:48 PM DISTRIBUTION TRANSFORMER ASSEMBLER Specimen Anatomical Collection Method Collection Time Receive d Time (Source) Location / / Volume Laterality Blood (Blood, 03/19/2022 2:56 PM 03/19/20 6:16 Venous) DISTRIBUTION TRANSFORMER ASSEMBLER PM DISTRIBUTION TRANSFORMER ASSEMBLER Faiza Crystal.Naldo LAB BLOOD NON ADD-ON Performing Organization Address City/State/ZIP Code Phon e Number [facility]- [address] [place] [address] [facility] [place] [address] System in [place] [address] (ABNORMAL) Basic Metabolic Panel (03/19/2022 2:56 PM DISTRIBUTION TRANSFORMER ASSEMBLER) P athologist Signature Potassium, P 4.6 3.6 - 5.2 03/19/2022 [place] mmol/L 7:00 PM DISTRIBUTION TRANSFORMER ASSEMBLER Sodium, P 139 135 - 145 03/19/2022 [place] mmol/L 7:00 PM DISTRIBUTION TRANSFORMER ASSEMBLER Chloride, P 99 98 - 107 03/19/2022 [place] mmol/L 7:00 PM DISTRIBUTION TRANSFORMER ASSEMBLER Bicarbonate, P 30 (H) 22 - 29 03/19/2022 [place] mmol/L 7:00 PM DISTRIBUTION TRANSFORMER ASSEMBLER Anion Gap, P 10 7 - 15 03/19/2022 [place] 7:00 PM DISTRIBUTION TRANSFORMER ASSEMBLER BUN (Blood Urea 21 8 - 24 03/19/2022 [place] Nitrogen), P mg/dL 7:00 PM DISTRIBUTION TRANSFORMER ASSEMBLER Creatinine 0.98 0.74 - 03/19/2022 [place] 1.35 mg/dL 7:00 PM DISTRIBUTION TRANSFORMER ASSEMBLER Estimated GFR 81 >=60 03/19/2022 [place] (eGFR) mL/min/BSA 7:00 PM DISTRIBUTION TRANSFORMER ASSEMBLER Comment: Estimated GFR calculated using the 2020 CKD_EPI creatinine equation. Calcium, Total, P 10.2 8.8 - 10.2 mg/dL 03/19/2022 7:00 PM DISTRIBUTION TRANSFORMER ASSEMBLER [facility] Glucose, P CANCELED mg/dL 03/19/2022 6:17 PM DISTRIBUTION TRANSFORMER ASSEMBLER [facility] Comment: Duplicate test request. Result canceled by the ancillary. Specimen Anatomical Collection Method Collection Time Receive d Time (Source) Location / / Volume Laterality Blood (Blood, 03/19/2022 2:56 PM 03/19/20 6:17 Venous) DISTRIBUTION TRANSFORMER ASSEMBLER PM DISTRIBUTION TRANSFORMER ASSEMBLER Faiza Crystal.Naldo LAB BLOOD ADD-ON Performing Organization Address City/State/ZIP Code Phon e Number [facility]- [address] [place] [address] [facility] [place] [address] System in [place] [address] CYSTOSCOPY-Urology Image Exam (01/28/2022 9:35 AM CDT) Specimen (Source) Anatomical Location Collection Method / Collectio n Time Received Time / Laterality Volume Narrative IIMS - 01/28/2022 2:18 PM CDT This order has been created and auto-finalized to support the import of images acquired without order. The clini ming documentation to support these images can be found on the encounter lynda t produced images. Provider Not In System IMG NON RAD IMAGING PROCEDUR ES Performing Organization Address City/State/ZIP Code Phon e Number [facility] NA Cytology Non-CUSTOMER RELATIONS ASSISTANT (Scheduled) (2022 2:55 PM CDT) Component Value Ref [facility] Method Time Signature 01/24/2022 [facility] 2:10 PM CDT Fixative 50% reagent 01/24/2022 [facility] alcohol 2:10 PM CDT Report Heidy Elliott MD 01/24/2022 [facility] electronically 2:10 PM CDT signed by I verify that I have examined all relevant slides/materials for the specimen(s) and rendered or confirmed the diagnosis. Gross Description Received 60 01/24/2022 [facility] ml of yellow 2:10 PM CDT alcohol fixed fluid. Collection urine, 01/24/2022 [facility] Procedure midstream 2:10 PM CDT Source A. Urine, 01/24/2022 [facility] Clean Catch, 2:10 PM CDT voided Clinical History Z85.51 01/24/2022 [facility] 2:10 PM CDT Interpretation A. Urine, Clean Catch, voided (cytospin): Negative f or 01/24/2022 [facility] High-Grade Urothelial Carcinoma. 2:10 PM CDT Specimen Anatomical Collection Method Collection Time Receive d Time (Source) Location / / Volume Laterality Varies (Urine, 2022 2:55 PM 022 6:54 Clean Catch) CDT AM CDT Narrative This result has an attachment that is no t available. Jatinder Camejo M.D. LAB SURG PATH ORDERABLES Performing Organization Address City/State/ZIP Code Phon e Number [facility]- [address] [place] [address] [facility] [place] [address] [facility] Cytology [address] [facility] from Last 3 Months Insurance Payer Benefit Plan / Subscriber ID Effective Dates Phone Addre ss Type Group HUMANA HUMANA CHOICE [id number] 2017-Present [phone] [address] [address] [place] [address] (Home) [phone] Randy Roberson (Work) [phone] Care Teams Physical Medicine Teacher Relationship Specialty Start Date End Date Faiza Truong D.O. PCP - General Internal Medicine 10/19/19 [address] [address]
--- OUTSIDE RECORDS SUMMARY | 2022-03-29 07:43 | XMS_ITS | Encounter Summary ---
:1950 Author Organization [facility] Address [address] [place] [address] Care Team Providers Name Role Phone Faiza Truong D.O. Primary Care Provider [phone] Encounter Details Date Type Department Care Team Description 01/28/2022 Ancillary Procedure Department of Urology Social History Tobacco Use Types Packs/Day Years [...] week 04/16/2019 How often do you attend religious or anglican services? Never 04/16/2019 Do you belong to any clubs or organizations such as religious N o 04/16/2019 groups, unions, fraternal or [...] at Date Recorded Male 06/28/2019 8:47 AM ALL ROUND LOGGER documented as of this encounter Plan of Treatment Upcoming Encounters Date Type Specialty Care Team Description 04/12/2022 Office Visit Cardiovascular Disease Simone Gooden AP RN, C.N.P. [address] [phone] (Wo rk) documented as of this encounter Procedures Procedure Name Priority Date/Time Associated Diagnosis Comme nts UROLOGY IMAGE EXAM Routine 01/28/2022 9:35 AM Res ults for this CDT procedure are i n the results section. documented in this encounter Results CYSTOSCOPY-Urology Image Exam (01/28/2022 9:35 AM CDT) [...] Organization Address City/State/ZIP Code Phon e Number [facility] NA documented in this encounter Visit Diagnoses Not on filedocumented in this encounter Additional Health Concerns Assessment Noted Time PHQ-9 Depression Total Score: 3 10/31/2020 10:00 AM CD T documented as of this encounter Care Teams Instrument Worker Relationship Specialty Start Date End Date Faiza Truong D.O. PCP - General Internal Medicine 10/19/19 [address] [place] [phone] documented as of this encounter
--- OUTSIDE RECORDS SUMMARY | 2022-03-29 07:43 | XMS_ITS | Encounter Summary ---
:1950 Author Organization [facility] Address [address] [place] [address] Care Team Providers Name Role Phone Faiza Truong D.O. Primary Care Provider [phone] Reason for Referral Outpatient (Routine) - Closed Specialty Diagnoses / Procedures Referred By Contact Refer red To Contact Diagnoses Preoperative Exam Faiza Truong [facility] Region Procedures ECG 12 Lead D.O. [address] [place] [phone] Referral ID Status Reason Start Date Expiration Date Visits Requ ested Visits Authorized [id number] Closed 03/20/2022 03/20/2023 1 1 ULAR KNIFE MACHINE CUTTER Reason for Visit Outpatient (Routine) - Closed Specialty Diagnoses / Procedures Referred By Contact Refer red To Contact Diagnoses Preoperative Exam Faiza Truong [facility] Region Procedures ECG 12 Lead D.O. [address] [place] [phone] Referral ID Status Reason Start Date Expiration Date Visits Requ ested Visits Authorized [id number] Closed 03/20/2022 03/20/2023 1 1 Encounter Details Date Type Department Care Team Description 03/20/2022 Hospital Encounter Department of Dionne Preop erative Exam Laboratory Medicine in , Yohannes Kendall [place], [place] [address] [place] [phone] Social History Tobacco Use Types Packs/Day Years [...] week 04/16/2019 How often do you attend restoration or congregation services? Never 04/16/2019 Do you belong to any clubs or organizations such as restoration N o 04/16/2019 groups, unions, fraternal or [...] at Date Recorded Male 06/28/2019 8:47 AM CIRCULAR KNIFE MACHINE CUTTER documented as of this encounter Medications at Time of Discharge Medication Sig Dispensed Refills Start Date End Date albuterol 90 INHALE 2 PUFFS BY 54 g 3 01/16/2022 mcg/actuation inhaler MOUTH 4 TIMES DAILY NEEDED FOR WHEEZING FOR SHORTNESS OF BREATH aspirin [address] tablet Take 81 mg by mouth 0 daily. atorvastatin (LIPITOR) 80 Take 1 tablet (80 mg 90 tablet 3 05/01/2021 05/01/2022 mg tabletIndications: total) by mouth at Hyperlipidemia bedtime. clopidogreL (PLAVIX) 75 Take 1 tablet by 90 tablet 3 2021 mg tablet mouth once daily isosorbide mononitrate TAKE 1 TABLET BY 90 tablet 3 022 (IMDUR) 60 mg 24 hr MOUTH ONCE DAILY IN tabletIndications: THE MORNING Coronary Stent Status Post, Hypertensive Heart And Chronic Kidney Disease Without Heart Failure And With Stage 2 (Mild) Chronic Kidney Disease lisinopriL Take 1 tablet (20 mg 90 tablet 3 05/01/2021 (PRINIVIL,ZESTRIL) 20 mg total) by mouth tabletIndications: every morning. Hypertensive Heart And Chronic Kidney Disease Without Heart Failure And With Stage 2 (Mild) Chronic Kidney Disease metoprolol succinate Take 1 tablet (25 mg 90 tablet 3 05/01 (TOPROL-XL) 25 mg 24 hr total) by mouth tabletIndications: daily. Do not crush Hypertensive Heart And or chew. Chronic Kidney Disease Without Heart Failure And With Stage 2 (Mild) Chronic Kidney Disease nitroglycerin (NITROSTAT) Place 1 tablet (0.4 25 tablet 11 1 0.4 mg SL tablet mg total) under the tongue every 5 (five) minutes as needed for chest pain. Place 1 tab under the tongue at first sign of chest pain. Repeat dose every 5 min up to 2 additional doses if chest pain continues. If no relief in 5 min, call 911. documented as of this encounter Plan of Treatment Upcoming Encounters Date Type Specialty Care Team Description 04/12/2022 Office Visit Cardiovascular Disease Simone Gooden AP RN, C.N.P. [address] [place] [phone] (Wo rk) documented as of this encounter Procedures Procedure Name Priority Date/Time Associated Diagnosis Comme nts ECG Routine 03/20/2022 4:21 PM Preoperative Exam Resu lts for this CIRCULAR KNIFE MACHINE CUTTER procedure are i n the results section . documented in this encounter Results ECG 12 Lead (03/20/2022 4:21 PM CIRCULAR KNIFE MACHINE CUTTER) P athologist Signature Ventricular Rate 72 BPM MUSE ECG/Min [place] Interval 194 ms MUSE QRSD Interval 130 ms MUSE QT Interval 424 ms MUSE QTC Interval 464 ms MUSE P [place] 81 degrees MUSE R [place] 20 degrees MUSE T Wave [place] 50 degrees MUSE Specimen Anatomical Collection Method Collection Time Receive d Time (Source) Location / / Volume Laterality 03/20/2022 4:21 PM 4:32 CIRCULAR KNIFE MACHINE CUTTER PM CIRCULAR KNIFE MACHINE CUTTER Impressions MUSE - 03/20/2022 4:32 PM CIRCULAR KNIFE MACHINE CUTTER Normal sinus rhythm Premature atrial complexes Low [...] this encounter Visit Diagnoses Diagnosis Preoperative Exam documented in this encounter Additional Health Concerns Assessment Noted Time PHQ-9 Depression Total Score: 3 10/31/2020 10:00 AM CD T documented as of this encounter Care Teams Parts Runner Relationship Specialty Start Date End Date Faiza Truong D.O. PCP - General Internal Medicine 10/19/[address] [phone] documented as of this encounter
--- OUTSIDE RECORDS SUMMARY | 2022-03-29 07:43 | XMS_ITS | Encounter Summary ---
:1950 Author Organization [facility] Address [address] [place] [address] Care Team Providers Name Role Phone Faiza Truong D.O. Primary Care Provider [phone] Reason for Referral Outpatient (Routine) - Authorized Specialty Diagnoses / Procedures Referred By Contact Refer red To Contact Diagnoses Personal History Of Malignant Neoplasm Of Bladder Jatinder Camejo M.D. [facility] Procedures Cystoscopy (specific provider) [address] [place] [phone] Referral ID Status Reason Start Date Expiration Date Visits V isits Requested Authorized [id number] Authorized 01/28/2022 01/28/2023 1 1 Reason for Visit Reason Comments Bladder Cancer Bladder cancer surveillance Appointment Request (Routine) - Closed Specialty Diagnoses / Procedures Referred By Contact Refer red To Contact Urology Diagnoses [facility] Procedures Referral ID Status Reason Start Date Expiration Date Visits Requ ested Visits Authorized [id number] Closed 01/15/2022 01/15/2023 1 1 Encounter Details Date Type Department Care Team Description 01/28/2022 Office Visit Department of Urology Jatinder Camejo Per sonal History Of Malignant Neoplasm Of Bladder (Primary Dx); in [place]av[place] Postprocedural Bulbous Urethral Strictur e Male [place] [address] [place], [place] [phone] Social History Tobacco Use Types Packs/Day Years Used Date Smoking Tobacco: Some Days Cigarettes 0.3 52 Smokeless Tobacco: Never Tobacco Cessation: Ready to Quit: Not As ked; Counseling Given: Not Answered Comments: does have a few cigarettes per [...] week 04/16/2019 How often do you attend yazidism or nondenominational services? 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 - 01/28/2022 2:00 PM CDT CHIEF COMPLAINT/REASON FOR VISIT Cystoscopy. The patient was appropriately identified with at least two separate identifiers and the correct procedure was confirmed. Verbal consent was obtained. INDICATION: Bladder cancer surveillance February 2010: Initial Resection: low-grade noninvasive, multifocal. 6 weeks induction therapy of BCG. January 02, 2015: Repeat Resection: low-grade stage TA. 2nd induction course of BCG. February 2016: Repeat Resection: grade 1, stage TA. 3rd induction course of BCG with interferon. August 21, 2017: biopsies obtained in clinic were negative, this area was cauterized. May 20, 2018: Repeat resection: low grade stage TA, Mitomycin C given October 14, 2018: Repeat resection: negative for malignancy, Mitomycin C given. Last cystoscopy: August 23 2020 which was negative. Urine cytology dated 2022 is negative for high-grade cells. INSTRUMENT: Flexible cystourethroscope. ANESTHESIA: 2% aqueous lidocaine jelly introduced into the urethra. PROCEDURE: The patient was placed in a supine position. The genitalia were prepped and draped sterilely. The urethra was anesthetized with 2% aqueous lidocaine jelly. The cystoscope was advanced into the urethra. FINDINGS: Meatus: Normal. Urethra: notable for urethral stricture not requiring dilation, stricture calibrate to [id number] [place]. This was dilated by passage of the cystoscope. Prostate: Length: 3 cm centimeters. Lateral Lobes: Mild hypertrophy with no visual obstruction. Small benign- appearing polyp in the prostatic urethra, 6 o'clock position, immediately proximal to the Veru, stable. This is suggestive of afibroepithelial polyp. Middle Lobe: absent. Bladder Neck: Normal. Residual Urine: Minimal (< 75 ml). Ureteral Orifices: Singular bilaterally, normal position on the trigone, slit- like in configuration and with clear efflux of urine noted bilaterally. Trabeculation: mild. Tumors: Multiple areas of inflammatory changes consistent with intravesical therapy. No obvious areas of malignancy or areas of concern are visualized. Essentially unchanged from prior cystoscopies. The procedure was well tolerated by the patient. He was discharged from the office in satisfactory condition. Post-cystoscopy instructions were reviewed with him. IMPRESSION: 1. History of transitional cell carcinoma the urinary bladder, low- grade and superficial. No cystoscopic, urine cytology was negative. 2. Bulbous urethral stricture, postprocedural, stable Plan: Return to clinic for bladder cancer surveillance in one year to include cytology and cystoscopy. The patient is anticipating having sequential right and left knee arthroplasties in June and July of next year. As a result I would like to obtain a urine cytology and culture shortly prior to thefirst one, recognizing we would need to wait six months after the second before we can do a routine diagnostic cystoscopy. Electronically signed by: Jatinder Camejo M.D. 01/28/22 2:15 PM CDT documented in this encounter Plan of Treatment Upcoming Encounters Date Type Specialty Care Team Description 04/12/2022 Office Visit Cardiovascular Disease Simone Gooden AP RN, C.N.P. [address] [phone] (Wo rk) Scheduled Orders Name Type Priority Associated Order Schedule Diagnoses Bacterial Culture, Microbiology Routine Personal History Of Ex pected: Aerobic + Susc, Malignant Neoplasm 2022 Urine Of Bladder (Approximate), Expires: 04/29/2023 Cytology Non-LOADING SHOVEL OILER Pathology and Routine Personal History Of Exp ected: (Scheduled) Cytology Malignant Neoplasm 3 Of Bladder (Approximate), Expires: 01/28/2023 Cytology Non-LOADING SHOVEL OILER Pathology and Routine Personal History Of Exp ected: (Scheduled) Cytology Malignant Neoplasm 3 Of Bladder (Approximate), Expires: 04/29/2023 documented as of this encounter Visit Diagnoses Diagnosis Personal History Of Malignant Neoplasm O f Bladder - Primary Postprocedural Bulbous Urethral Strictur e Male documented in this encounter Additional Health Concerns Assessment Noted Time PHQ-9 Depression Total Score: 3 10/31/2020 10:00 AM CD T documented as of this encounter Care Teams Core Drill Operator Helper Relationship Specialty Start Date End Date Faiza Truong D.O. PCP - General Internal Medicine 10/19/19 [address] [place] [address] documented as of this encounter
--- OUTSIDE RECORDS SUMMARY | 2022-03-29 07:43 | XMS_ITS | Encounter Summary ---
:1950 Author Organization [facility] Address [address] [place] [address] Care Team Providers Name Role Phone Faiza Truong D.O. Primary Care Provider [phone] Encounter Details Date Type Department Care Team Description 03/19/2022 Hospital Encounter Department of Claudio Screen ing Examination Diabetes Mellitus; Laboratory Medicine n, Ele [place] Monitoring For Therapeutic Drug Therapy in [facility] [address] [phone] Social History Tobacco Use Types Packs/Day Years [...] week 04/16/2019 How often do you attend nondenominational or mu-ism services? 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 [address] [phone] (Wo rk) documented as of this encounter Procedures Procedure Name Priority Date/Time Associated Diagnosis Comme nts GLUCOSE, FASTING, Routine 03/19/2022 2:56 PM Screening Resu lts for this S/P DOCUMENT PHOTOGRAPHER Examination Diabetes procedu re are in Mellitus the results section. BASIC METABOLIC Routine 03/19/2022 2:56 PM Monitoring For Resu lts for this PANEL, S/P DOCUMENT PHOTOGRAPHER Therapeutic Drug procedure a re in Therapy the results section. documented in this encounter Results (ABNORMAL) Basic Metabolic Panel (03/19/2022 2:56 PM DOCUMENT PHOTOGRAPHER) athologist Signature Potassium, P 4.6 3.6 - 5.2 03/19/2022 [place] mmol/L 7:00 PM DOCUMENT PHOTOGRAPHER Sodium, P 139 135 - 145 03/19/2022 [place] mmol/L 7:00 PM DOCUMENT PHOTOGRAPHER Chloride, P 99 98 - 107 03/19/2022 [place] mmol/L 7:00 PM DOCUMENT PHOTOGRAPHER Bicarbonate, P 30 (H) 22 - 29 03/19/2022 [place] mmol/L 7:00 PM DOCUMENT PHOTOGRAPHER Anion Gap, P 10 7 - 15 03/19/2022 [place] 7:00 PM DOCUMENT PHOTOGRAPHER BUN (Blood Urea 21 8 - 24 03/19/2022 [place] Nitrogen), P mg/dL 7:00 PM DOCUMENT PHOTOGRAPHER Creatinine 0.98 0.74 - 03/19/2022 [place] 1.35 mg/dL 7:00 PM DOCUMENT PHOTOGRAPHER Estimated GFR 81 >=60 03/19/2022 [place] (eGFR) mL/min/BSA 7:00 PM DOCUMENT PHOTOGRAPHER Comment: Estimated GFR calculated using the 2020 CKD_EPI creatinine equation. Calcium, Total, P 10.2 8.8 - 10.2 mg/dL 03/19/2022 7:00 PM DOCUMENT PHOTOGRAPHER [place] Glucose, P CANCELED mg/dL 03/19/2022 6:17 PM DOCUMENT PHOTOGRAPHER [place] Comment: Duplicate test request. Result canceled by the ancillary. Specimen Anatomical Collection Method Collection Time Receive d Time (Source) Location / / Volume Laterality Blood (Blood, 03/19/2022 2:56 PM 03/19/20 6:17 Venous) DOCUMENT PHOTOGRAPHER PM DOCUMENT PHOTOGRAPHER Faiza Truong D.O. LAB BLOOD ADD-ON Performing Organization Address City/State/ZIP Code Phon e Number [facility]- [address] [facility] [place] [place] [address] [place] [address] System in [place] [address] Glucose, Fasting (03/19/2022 2:56 PM DOCUMENT PHOTOGRAPHER) P athologist Signature Glucose, P 70 70 - 100 03/19/2022 [place] mg/dL 6:48 PM DOCUMENT PHOTOGRAPHER Specimen Anatomical Collection Method Collection Time Receive d Time (Source) Location / / Volume Laterality Blood (Blood, 03/19/2022 2:56 PM 03/19/20 6:16 Venous) DOCUMENT PHOTOGRAPHER PM DOCUMENT PHOTOGRAPHER Faiza Truong D.O. LAB BLOOD NON ADD-ON Performing Organization Address City/State/ZIP Code Phon e Number [facility]- [address] [place] [facility] [place] [address] [place] [address] System in [place] [address] documented in this encounter Visit Diagnoses Diagnosis Screening Examination Diabetes Mellitus Monitoring For Therapeutic Drug Therapy documented in this encounter Additional Health Concerns Assessment Noted Time PHQ-9 Depression Total Score: 3 10/31/2020 10:00 AM CD T documented as of this encounter Care Teams Stake Driver Relationship Specialty Start Date End Date Faiza Truong D.O. PCP - General Internal Medicine 10/19/[address] [place] [address] documented as of this encounter
--- OUTSIDE RECORDS SUMMARY | 2022-03-29 07:43 | XMS_ITS | Encounter Summary ---
:1950 Author Organization [facility] Address [address] [place] [address] Care Team Providers Name Role Phone Faiza Truong D.O. Primary Care Provider [phone] Encounter Details Date Type Department Care Team Description 2022 Hospital Encounter Department of Nell, Personal History Of Laboratory Medicine Javid Tobias Malignant Neoplasm Of in [place], [address] [place] [phone] Social History Tobacco Use Types Packs/Day Years [...] week 04/16/2019 How often do you attend scientologist or synagogue services? 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 isosorbide mononitrate Take 1 tablet (60 mg 90 tablet 3 04/202102/26/2022 (IMDUR) 60 mg 24 hr total) by mouth tabletIndications: every morning. Coronary Stent Status Post, Hypertensive Heart And Chronic Kidney Disease Without Heart Failure And With Stage 2 (Mild) Chronic Kidney Disease documented as of this encounter Plan of Treatment Upcoming Encounters Date Type Specialty Care Team Description 04/12/2022 Office Visit Cardiovascular Disease Simone Gooden AP RN, C.N.P. [address] [phone] (Wo rk) documented as of this encounter Procedures Procedure Name Priority Date/Time Associated Diagnosis Comme nts CYTOLOGY NON-TURNING AND BEADING MACHINE OPERATOR Routine 2022 2:55 PM Personal History O f Results for this (SCHEDULED) CDT Malignant Neoplasm procedure are in Of Bladder the results section. documented in this encounter Results Cytology Non-TURNING AND BEADING MACHINE OPERATOR (Scheduled) (2022 2:55 PM CDT) Component Value Ref Test Analysis Performed At [facility] gist Range Method Time Signature 01/24/2022 [facility] [...] Organization Address City/State/ZIP Code Phon e Number [facility]- [address] [place] [address] [place] [place] [address] [facility] Cytology [address] [place] [address] documented in this encounter Visit Diagnoses Diagnosis Personal History Of Malignant Neoplasm O f Bladder documented in this encounter Additional Health Concerns Assessment Noted Time PHQ-9 Depression Total Score: 3 10/31/2020 10:00 AM CD T documented as of this encounter Care Teams Manager File Relationship Specialty Start Date End Date Faiza Truong D.O. PCP - General Internal Medicine 10/19/[address] [phone] documented as of this encounter
--- OUTSIDE RECORDS SUMMARY | 2022-03-29 07:43 | XMS_ITS | Encounter Summary ---
:1950 Author Organization [facility] Address [address] [place] [address] Care Team Providers Name Role Phone Faiza Truong D.O. Primary Care Provider [phone] Encounter Details Date Type Department Care Team Description 03/05/2022 Orders Only [facility] [place] Truong creening Examination Diabetes Mellitus; Yohannes Kendall Monitoring For Therapeutic Drug Therapy [address] [place] [phone] Social History Tobacco Use Types Packs/Day Years [...] week 04/16/2019 How often do you attend buddhism or orthodoxy services? 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 [address] [facility] [phone] (Wo rk) documented as of this encounter Results (ABNORMAL) Basic Metabolic Panel (03/19/2022 2:56 PM DISTRICT OPERATIONS MANAGER) P athologist Signature Potassium, P 4.6 3.6 - 5.2 03/19/2022 [place] mmol/L 7:00 PM DISTRICT OPERATIONS MANAGER Sodium, P 139 135 - 145 03/19/2022 [place] mmol/L 7:00 PM DISTRICT OPERATIONS MANAGER Chloride, P 99 98 - 107 03/19/2022 [place] mmol/L 7:00 PM DISTRICT OPERATIONS MANAGER Bicarbonate, P 30 (H) 22 - 29 03/19/2022 [place] mmol/L 7:00 PM DISTRICT OPERATIONS MANAGER Anion Gap, P 10 7 - 15 03/19/2022 [place] 7:00 PM DISTRICT OPERATIONS MANAGER BUN (Blood Urea 21 8 - 24 03/19/2022 [place] Nitrogen), P mg/dL 7:00 PM DISTRICT OPERATIONS MANAGER Creatinine 0.98 0.74 - 03/19/2022 [place] 1.35 mg/dL 7:00 PM DISTRICT OPERATIONS MANAGER Estimated GFR 81 >=60 03/19/2022 [place] (eGFR) mL/min/BSA 7:00 PM DISTRICT OPERATIONS MANAGER Comment: Estimated GFR calculated using the 2020 CKD_EPI creatinine equation. Calcium, Total, P 10.2 8.8 - 10.2 mg/dL 03/19/2022 7:00 PM DISTRICT OPERATIONS MANAGER [place] Glucose, P CANCELED mg/dL 03/19/2022 6:17 PM DISTRICT OPERATIONS MANAGER [place] Comment: Duplicate test request. Result canceled by the ancillary. Specimen Anatomical Collection Method Collection Time Receive d Time (Source) Location / / Volume Laterality Blood (Blood, 03/19/2022 2:56 PM 03/19/20 6:17 Venous) DISTRICT OPERATIONS MANAGER PM DISTRICT OPERATIONS MANAGER Faiza Truong D.O. LAB BLOOD ADD-ON Performing Organization Address City/State/ZIP Code Phon e Number [facility]- [address] [facility] [place] [address] [place] [address] System in [place] [address] [facility] Glucose, Fasting (03/19/2022 2:56 PM DISTRICT OPERATIONS MANAGER) P athologist Signature Glucose, P 70 70 - 100 03/19/2022 [place] mg/dL 6:48 PM DISTRICT OPERATIONS MANAGER Specimen Anatomical Collection Method Collection Time Receive d Time (Source) Location / / Volume Laterality Blood (Blood, 03/19/2022 2:56 PM 03/19/20 6:16 Venous) DISTRICT OPERATIONS MANAGER PM DISTRICT OPERATIONS MANAGER Faiza Truong D.O. LAB BLOOD NON ADD-ON Performing Organization Address City/State/ZIP Code Phon e Number [facility]- [address] [facility] [place] [address] [place] [address] System in [place] [address] [facility] documented in this encounter Visit Diagnoses Diagnosis Screening Examination Diabetes Mellitus Monitoring For Therapeutic Drug Therapy documented in this encounter Additional Health Concerns Assessment Noted Time PHQ-9 Depression Total Score: 3 10/31/2020 10:00 AM CD T documented as of this encounter Care Teams Philosophy Professor Relationship Specialty Start Date End Date Faiza Truong D.O. PCP - General Internal Medicine 10/19/[address]199 [place] [address] documented as of this encounter
--- OUTSIDE RECORDS SUMMARY | 2022-03-29 07:43 | XMS_ITS | Encounter Summary ---
:1950 Author Organization [facility] Address [address] [place] [address] Care Team Providers Name Role Phone Faiza Truong D.O. Primary Care Provider [phone] Reason for Visit Reason Comments Med Refill Encounter Details Date Type Department Care Team Description 02/26/2022 Refill Department of Cardiovascular Simone Gooden APRN, Med Refill Diseases in [place], [place] C.N.P. [address] [place] [address] [place], [place] [phone] (Wo rk) Social History Tobacco Use Types Packs/Day Years [...] week 04/16/2019 How often do you attend shinto or sabianism services? 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 [address] [phone] (Wo rk) documented as of this encounter Visit Diagnoses Diagnosis Coronary Stent Status Post Hypertensive Heart And Chronic Kidney Di sease Without Heart Failure And With Stage 2 (Mild) Chronic Kidney Disease documented in this encounter Additional Health Concerns Assessment Noted Time PHQ-9 Depression Total Score: 3 10/31/2020 10:00 AM CD T documented as of this encounter Care Teams Clam Sorter Relationship Specialty Start Date End Date Faiza Truong D.O. PCP - General Internal Medicine 10/19/[address] [phone] documented as of this encounter
--- OUTSIDE RECORDS SUMMARY | 2022-03-29 07:43 | XMS_ITS | Encounter Summary ---
:1950 Author Organization [facility] Address [address] [place] [address] Care Team Providers Name Role Phone Faiza Truong D.O. Primary Care Provider [phone] Encounter Details Date Type Department Care Team Description 12/21/2021 Clinical Communication Department of Internal [facility] [place] D[place]O . [place] [address] [place] [phone] Social History Tobacco Use Types Packs/Day Years [...] week 04/16/2019 How often do you attend episcopalian or alevism services? 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 [address] [phone] (Wo rk) documented as of this encounter Visit Diagnoses Not on filedocumented in this encounter Additional Health Concerns Assessment Noted Time PHQ-9 Depression Total Score: 3 10/31/2020 10:00 AM CD T documented as of this encounter Care Teams Community Health Representative Relationship Specialty Start Date End Date Faiza rTuong D.O. PCP - General Internal Medicine 10/19/192199 [address] [phone] documented as of this encounter
--- OUTSIDE RECORDS SUMMARY | 2022-03-29 07:43 | XMS_ITS | Clinical Summary ---
:1950 Author Organization [facility] [place] [address] Care Team Providers Name Role Phone Ambrosiopenny Ambrosiopatrick WADE Unavailable None Primary Care Provider Unavailable Allergies Active Allergy Reactions Severity Noted Date Comments Bupropion *Unknown 09/21/2018 Citalopram Diarrhea 06/10/2016 Influenza Virus Other - Describe In 02/19/2016 Got i ll after Vaccines Comment Field vaccination Influenza Virus *Unknown 09/21/2018 Vaccines Pravastatin Myalgia 02/19/2016 Bupropion Emotional Disturbance 02/03/2015 Became suicidal and homicidal Medications Medication Sig Dispensed Refills Start Date End Date Status albuterol HFA (PRO-AIR; Inhale 2 Puffs by 0 Active VENTOLIN; PROVENTIL) 90 mouth every 4 mcg/actuation inhaler hours if needed (wheezing or shortness of breath). atorvastatin (LIPITOR) Take 80 mg by 0 Active 80 mg mouth at bedtime. tabletIndications: hyperlipidemia aspirin chewable 81 mg Chew 81 mg by 0 Active chewable mouth once daily tabletIndications: with a meal. myocardial infarction prevention nitroglycerin Place 0.4 mg 0 Act nini (NITROSTAT) 0.4 mg under the tongue sublingual every 5 minutes tabletIndications: if needed. angina lisinopril (PRINIVIL; Take 20 mg by 0 Active ZESTRIL) 20 mg mouth once daily. tabletIndications: hypertension clopidogreL (PLAVIX) 75 Take 75 mg by 0 Active mg tablet mouth once daily. metoprolol succinate Take 25 mg by 0 05/01/2021 Active (TOPROL XL) 25 mg mouth once daily. Sustained-Release tablet Active Problems Problem Noted Date DNR (do not resuscitate) 12/08/2021 Overview: wants natural Pneumonia 12/08/2021 Chest pain 12/08/2021 Severe back pain 03/07/2015 Acute cystitis with hematuria 03/07/2015 Urinary bladder cancer 02/03/2015 Overview: chemotherapy Leukocytosis 02/03/2015 Resolved Problems Problem Noted Date Resolved Date Confusion 02/03/2015 03/07/2015 Hyponatremia 02/03/2015 03/07/2015 Fever 02/03/2015 03/07/2015 Immunizations Name Administration Dates Next Due DTaP 02/12/2010 Pneumococcal Poly,23-Valent (Pneumovax) 02/05/2016 Pneumococcal conj 13-Valent (Prevnar 13) 01/24/2015 Family History Medical History Relation Name Comments Heart Disease Brother age 72 Heart Disease Mother age 92 Relation Name Status Comments Brother Father Mother Social History Tobacco Use Types Packs/Day Years Used Date Former Smoker Quit: 08/04/19 Smokeless Tobacco: Never Used Tobacco Cessation: Ready to Quit: No; Co unseling Given: No Alcohol Use Standard Drinks/Week Comments Not Currently 0 (1 standard drink = 0.6 oz pure alcoho l) 3 per week Alcohol Habits Answer Date Recorded How often do you have a drink containing alcohol? Not asked How many drinks containing alcohol do you have on a typical Not asked day when you are drinking? How often do you have six or more drinks on one occasion? No t asked Comment: 3 per week 05/20/2018 Sex Assigned at Date Recorded Not on file Obstetrics History Last Filed Vital Signs Vital Sign Reading Time Taken Comments Blood Pressure 158/82 12/09/2021 7:56 AM CDT Pulse 73 12/09/2021 7:56 AM CDT Temperature 36.7 ??C (98 ??F) 12/09/2021 7:56 AM CDT Respiratory Rate 16 12/09/2021 7:56 AM CDT Oxygen Saturation 90% 12/09/2021 7:56 AM CDT Inhaled Oxygen Concentration - - Weight 90.8 kg (200 lb 3.2 oz) 12/08/2021 4:44 AM CDT Height 172.7 cm (5' 8) 12/08/2021 1:12 AM CDT Body Mass Index 30.44 12/08/2021 1:12 AM CDT Plan of Treatment Upcoming Encounters Date Type Specialty Care Team Description 04/09/2022 Hospital Encounter Fadia Calvin MD [address] [place], [place] [phone] (Wo rk) 04/09/2022 Surgery Michael Calvin MD COLONOSCOPY [address] [place], [place] [phone] (Wo rk) Scheduled Procedures Name Priority Associated Diagnoses Date/Time COLONOSCOPY SCREENING 04/09/2022 12:04 PM REGISTERED RESPIRATORY THERAPIST Health Maintenance Due Date Last Done Comments Tdap 01/24/1960 BMI (ht and wt on same day) for age 0901/23/1967 18+ Hepatitis C screening for age 18-79 1967 Tetanus booster 1969 Colonoscopy through age 75 1994 Lipids for age 45-75 1994 Zoster (shingles) series for age 50+ 1999 (1 of 2) Depression screening for age 12+ 04/15/2018 04/15/2017 COVID-19 vaccine series (4 - Booster 05/01/2021 03/06/2021, 07/28/2020, for Pfizer series) 07/07/2020 Influenza for age 65+ 01/03/2022 Pneumococcal series for age 65+ Completed 02/05/2016, 01/04 AAA screening age 55-77 Completed 03/19/2017, 03/06/2015 Medical Devices Implanted Type Area [employer] Professor Device Shelf Model / Serial Identifier Expiration / Lot Date [id number] - [id number] Left: [employer] -[id number] / Implanted: Qty: 1 on 05/17/2014 by Semaj Ortiz MD at [facility] Shoulder / [id number] Description: UNIVERS ll Humeral head Results Not on filefrom Last 3 Months Insurance Payer Benefit Plan / Subscriber ID Effective Dates Phone Addre ss Type Group MEDICARE PART A MEDICARE PART A [id number] 2014-Present ATTN: CLAIMS - HB USE ONLY HB ONLY [address] [place] [address] HUMANA GOLD MR HUMANA CHOICE [id number] 2020-Present [address] [address] PPO NIKOLAS MARROQUIN [phone] UN IT 2 (Home) [address] [facility] [place] [address] Advance Directives Latest Code Status on File Code Status Date Activated Date Inactivated Comments DNR 12/08/2021 1:55 AM 12/09/2021 11:44 AM Code Status Discussion: Reviewed Preferences Full Code 10/14/2018 6:03 AM 10/14/2018 12:53 PM Full Code 05/20/2018 10:17 AM 05/20/2018 7:28 PM Full Code 12/31/2017 10:53 AM 12/31/2017 4:32 PM Full Code 02/21/2016 6:43 AM 02/22/2016 2:31 AM Care Teams Crime Lab Analyst Relationship Specialty Start Date End Date None PCP - General 08/23/20 . Leta Sanchez MBBS Internal Medicine 07/10/13
--- OUTSIDE RECORDS SUMMARY | 2022-03-29 07:44 | XMS_ITS | Encounter Summary ---
:1950 Author Organization [facility] Address [address] [place] [address] Care Team Providers Name Role Phone Faiza Truong D.O. Primary Care Provider [phone] Reason for Referral Specialty Diagnoses / Procedures Referred By Contact Refer red To Contact Daniel Truong D.O. [facility] [address], [place] [address] Referral ID Status Reason Start Date Expiration Date Visits Requ ested Visits Authorized Encounter Details Date Type Department Care Team Description 09/19/2021 Orders Only [facility] P[facility] Waleska Truong D.O. [address], [place] [phone] (Wo rk) Social History Tobacco Use Types Packs/Day Years Used Date Smoking Tobacco: Some Days Cigarettes 0.2 Smokeless Tobacco: Never Comments: 4 cigarettes per day Alcohol Use Standard Drinks/Week Comments No 0 [...] week 04/16/2019 How often do you attend baptism or mosque services? 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 [address] [phone] (Wo rk) Scheduled Referrals Name Type Priority Associated Order Schedule Diagnoses Covid immunization Outpatient Referral Routine Ex pected: office visit Booster 022 (Approximate), Expires: 09/19/2022 documented as of this encounter Visit Diagnoses Not on filedocumented in this encounter Additional Health Concerns Assessment Noted Time PHQ-9 Depression Total Score: 3 10/31/2020 10:00 AM CD T documented as of this encounter Care Teams Cable Armorer Operator Relationship Specialty Start Date End Date Faiza Truong D.O. PCP - General Internal Medicine 10/19/[address] [phone] documented as of this encounter
--- OUTSIDE RECORDS SUMMARY | 2022-03-29 07:44 | XMS_ITS | Encounter Summary ---
:1950 Author Organization [facility] Address [address] [place] [address] Care Team Providers Name Role Phone Faiza Truong D.O. Primary Care Provider [phone] Reason for Referral Outpatient (Routine) - Closed Specialty Diagnoses / Procedures Referred By Contact Refer red To Contact Cardiovascular Disease Simone Gooden [facility] FACILITIES CLERK, C.N.P. 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 [address] [phone] Referral ID Status Reason Start Date Expiration Date Visits Requ ested Visits Authorized [id number] Closed 02/13/2021 02/13/2022 1 1 Encounter Details Date Type Department Care Team Description 03/27/2021 Office Visit Department of Simone Gooden Coronary Arter y Disease With Stable Angina (HCC) (Primary Dx); Cardiovascular Diseases Andrez, CASEY, Abus e Tobacco Smoking; [place], [place] g[place] CatalanN.Alysa Hyperlipidemia [address] [phone] [phone] [place] [phone] Social History Tobacco Use Types Packs/Day Years [...] week 04/16/2019 How often do you attend pentecostal or sikh services? 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P. - 03/27/2021 9:00 AM CST SUBJECTIVE CHIEF COMPLAINT/REASON FOR VISIT Follow-up stable angina. HISTORY OF PRESENT ILLNESS Seven Salazar is seen today to follow-up on his underlying coronary artery disease with stable angina. At his last visit he had described an episode of epigastric discomfort that improved after theuse of sublingual nitroglycerin about 4-5 days prior to his clinic visit February 13. He has known coronary artery disease and had multiple stents placed back in 2016. This was followed by a NSTEMI in July of 2017 with a repeat coronary angiogram revealing nonobstructive but diffuse coronary artery disease. Medical management was recommended. He then had an emergency room visit in August of this year with follow-up nuclear stress testing that came back showing no evidence of ischemia or infarction. At his last visit I increased his isosorbide from 30 mg per day up to 60 mg per day and he is here for a review. He tells me that since we up the dose of his isosorbide he has done well. He has not been having any recurrent chest or epigastric chest pains. He has continued on dual anti-platelet therapy without any bleeding issues as he carries an elevated ACC DAPT risk score, mostly in the setting ofbeing a continued tobacco user. CURRENT MEDICATIONS Current Outpatient Medications: ??? albuterol sulfate (PROAIR RESPICLICK) 90 mcg/actuation aerosol powdr breath activated inhaler, Inhale 2 puffs 4 (four) times a day as needed (for shortness of breath and wheezing- Use with spacer chamber.)., Disp: 1 each, Rfl: 11 ??? aspirin [address] tablet, Take 81 mg by mouth daily., Disp: , Rfl: ??? atorvastatin (LIPITOR) 80 mg tablet, Take 1 tablet (80 mg total) by mouth at bedtime., Disp: 90 tablet, Rfl: 3 ??? clopidogreL (PLAVIX) 75 mg tablet, Take 1 tablet by mouth once daily, Disp: 90 tablet, Rfl: 3 ??? isosorbide mononitrate (IMDUR) 60 mg 24 hr tablet, Take 1 tablet (60 mg total) by mouth every morning., Disp: 90 tablet, Rfl: 3 ??? lisinopriL (PRINIVIL,ZESTRIL) 20 mg tablet, Take 1 tablet (20 mg total) by mouth every morning.,Disp: 90 tablet, Rfl: 3 ??? metoprolol succinate (TOPROL-XL) 25 mg 24 hr tablet, Take 1 tablet (25 mg total) by mouth daily., Disp: 90 tablet, Rfl: 3 ??? nitroglycerin (NITROSTAT) 0.4 mg SL tablet, Place 1 tablet (0.4 mg total) under the tongue every5 (five) minutes as needed for chest pain. Place 1 tab under the tongue at first sign of chest pain.Repeat dose every 5 min up to 2 additional doses if chest pain continues. If no relief in 5 min, call 911., Disp: 25 tablet, Rfl: 11 ALLERGIES Allergies Allergen Reactions ??? Bupropion Hcl Other (see comments) Elieco listed no reactions. Suicidal thoughts. ??? Citalopram Diarrhea ??? Influenza Virus Vaccine Bivalent Other (see comments) Sickness, Cerner listed no reactions. ??? Pravastatin Myalgia and Other (see comments) MEDICAL HISTORY Past Medical History: Diagnosis Date ??? Abuse Tobacco Smoking 07/03/2015 ??? Anemia 03/31/2017 ??? Arthralgia 07/03/2015 ??? Arthritis Shoulder 07/03/2015 ??? Bronchitis Chronic (HCC) 07/03/2015 ??? Coronary Artery Disease (Unspecified) 06/12/2017 ??? Coronary Artery Disease Cheesh-Na Vessel 06/12/2017 ??? Corticosteroid Treatment Physical Therapy Coordinator Systemic 03/14/2017 ??? Cyst Renal 02/05/2016 ??? 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 Depression Anxiety 03/25/2016 ??? DJD (OA) Knee Guy 09/30/2013 ??? Elevated Sedimentation Rate 02/15/2010 ??? Erosions Antral 07/03/2015 ??? Hernia Diaphragmatic Without Obstruction 12/24/2011 ??? Hyperlipidemia 05/15/2015 ??? Hypertensive Heart And Chronic Kidney Disease Without Heart Failure And With Stage 2 (Mild) Chronic Kidney Disease 03/31/2017 ??? Impaired Fasting Glucose 04/16/2019 ??? Insomnia 08/26/2016 ??? Lipoma Skin 02/12/2010 ??? 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HCC) 03/18/2010 ??? 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 Migraine Headache 07/01/2011 ??? Myalgia 04/17/2015 ??? Non-ST Elevation Myocardial Infarction (HCC) 03/31/2017 ??? Obesity NOS 02/15/2010 ??? Pain Back 07/03/2015 ??? Polymyalgia Rheumatica (HCC) 04/17/2015 ??? Presbyopia 10/07/2011 ??? Reflux Esophageal 12/24/2011 ??? Seizure Partial Complex (HCC) 03/23/2004 ??? 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 Stroke (HCC) 03/23/2004 SURGICAL HISTORY Past Surgical History: Procedure Laterality Date ??? APPENDECTOMY 02/23/1968 ??? ARTHROPLASTY OF SHOULDER Right 05/07/2013 ??? CATARACT EXTRACTION AND INSERTION OF INTRAOCULAR LENS Right 08/16/2008 ??? CATARACT EXTRACTION AND INSERTION OF INTRAOCULAR LENS Left 02/22/2009 ??? CERVICAL LAMINECTOMY 05/31/1999 Left C5-C6 foraminotomy and hemilaminectomy, left C6-C7 foraminotomy and hemilaminectomy and diskectomy. ??? COLONOSCOPY 2005 ??? COLONOSCOPY 11/26/2011 Repeat in 10 years ??? CORONARY STENT PLACEMENT 03/22/2017 RCA and left circumflex ??? CORONARY STENT PLACEMENT 03/24/2017 mid LAD ??? EXCISION LIPOMA 02/19/2010 ??? EXCISION LIPOMA Posterior 07/16/1999 >Excision of large back lipoma. ??? EXCISION OF LESION OF SKIN 06/04/2013 Dermal nevus on left cheek/nasolabial fold ? ? HEAD & NECK SKIN LESION EXCISIONAL BIOPSY 04/11/1998 Excision of benign lesion of scalp and neck ??? SQUAMOUS CELL CARCINOMA EXCISION 12/31/2017 Left superior helix ??? TRANSURETHRAL RESECTION OF BLADDER TUMOR 02/19/2010 Non invasive papillary urothelial carcinoma, Grade 1 of 3 OBJECTIVE VITAL SIGNS BP (!) 150/94 (BP Location: Right arm, Patient Position: Sitting, Cuff Size: Regular) Pulse 66 Temp 36.4 ??C (Temporal) Wt 95.3 kg SpO2 97% BMI 32.03 kg/m?? PHYSICAL EXAMINATION General: Well appearing in no acute distress, alert and oriented x 3. Vessels: No JVD or carotid bruits. Heart: Regular rate and rhythm. Normal S1-S2. No murmurs. Lungs: Clear bilaterally. ASSESSMENT / PLAN #1 Coronary Artery Disease With Stable Angina (HCC) #2 Abuse Tobacco Smoking #3 Hyperlipidemia He has known coronary artery disease with a history of stable angina. He is on good medical therapy without recurrences from our visit last month. We will continue with the increased dose of isosorbidealong with the rest of his medical therapy. I again advised tobacco cessation and we discussed that this is his single greatest risk factor for recurrent issues from a cardiovascular standpoint. He is also due for repeat lipid panel and I have ordered this to be completed at the time of his upcoming labs prior to his primary care visit with Dr. Serrato. I will arrange a six month follow-up with Cardiology in if he has any new or concerning symptoms in the meantime he will let me know and I will see him sooner. In case of continued stable angina not responding to medical therapy or for any concerns of unstable angina he would likely need a coronary angiogram for reassessment. 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 [address] [place] [phone] (Wo rk) Scheduled Referrals Name Type Priority Associated Order Schedule Diagnoses Cardiovascular Disease Outpatient Referral Routine Expected: office visit (clinic) 2021 (Approximate), Expires: 06/27/2022 documented as of this encounter Visit Diagnoses Diagnosis Coronary Artery Disease With Stable Gladis na (HCC) - Primary Abuse Tobacco Smoking Hyperlipidemia documented in this encounter Additional Health Concerns Assessment Noted Time PHQ-9 Depression Total Score: 3 10/31/2020 10:00 AM CD T documented as of this encounter Care Teams Doctor Of Nursing Practice Relationship Specialty Start Date End Date Faiza Truong D.O. PCP - General Internal Medicine 10/19/[address] [phone] documented as of this encounter
--- OUTSIDE RECORDS SUMMARY | 2022-03-29 07:44 | XMS_ITS | Encounter Summary ---
:1950 Author Organization [facility] Address [address] [place] [address] Care Team Providers Name Role Phone Faiza Truong D.O. Primary Care Provider [phone] Reason for Referral Outpatient (Routine) - Closed Specialty Diagnoses / Procedures Referred By Contact Refer red To Contact Diagnoses Pneumonia Faiza Truong, [facility] Region Procedures DX Chest AP or PA and Lateral 2 Views DX Chest AP or PA and Lateral 2 Views D.O. [address] [place] [phone] Referral ID Status Reason Start Date Expiration Date Visits Requ ested Visits Authorized [id number] Closed 12/14/2021 12/14/2022 1 1 Outpatient (Routine) - Closed Specialty Diagnoses / Procedures Referred By Contact Refer red To Contact Daniel Truong D.O. [facility] Region [address] [place] [phone] Referral ID Status Reason Start Date Expiration Date Visits Requ ested Visits Authorized [id number] Closed 12/14/2021 12/14/2022 1 1 Outpatient (Routine) - Closed Specialty Diagnoses / Procedures Referred By Contact Refer red To Contact Orthopedic Surgery Diagnoses [facility] K[facility] Bonilla Kendall.OBhavesh [address] [place] [address] Referral ID Status Reason Start Date Expiration Date Visits Requ ested Visits Authorized [id number] Closed 12/14/2021 12/14/2022 1 1 Scheduling Instructions Ortho internal referral panel order, karoline ging before Consult visit Outpatient (Routine) - Closed Specialty Diagnoses / Procedures Referred By Contact Refer red To Contact Diagnoses Pain Knee Left Faiza Truong [facility] Procedures DX Knee Left 3 Views D.O. [address] [place] [phone] Referral ID Status Reason Start Date Expiration Date Visits Requ ested Visits Authorized [id number] Closed 12/14/2021 12/14/2022 1 1 Reason for Visit Reason Comments Post Hospital Follow-up LLL pneumonia Appointment Request (Routine) - Closed Specialty Diagnoses / Procedures Referred By Contact Refer red To Contact Community Internal Medicine Referral ID Status Reason Start Date Expiration Date Visits Requ ested Visits Authorized [id number] Closed 12/09/2021 12/09/2022 1 Encounter Details Date Type Department Care Team Description 12/14/2021 Office Visit Department of Internal Wayne Truong (Primary Dx); Medicine in [facility] Danielga, D.O Bhavesh Pain Knee Left; [place] [address] Bronchitis Chronic (HCC); [address] [place], [place] 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 - 12/14/2021 11:30 AM CDT SUBJECTIVE CHIEF COMPLAINT / REASON FOR VISIT Seven Salazar is a 71 y.o. male who presents for evaluation of Post Hospital Follow-up (LLL pneumonia). HISTORY OF PRESENT ILLNESS Seven Salazar is a very pleasant 71-year-old male with past medical history significant for tobacco use disorder, hyperlipidemia, history of coronary artery stent, hypertension presents today to follow-up after an ER visit secondary to pneumonia. The patient presented to the emergency room with left-sided chest pain radiating to the shoulder andshortness of breath with wheezing. The patient does have a history of coronary disease and PCI. He had a thorough workup to rule out acute coronary syndrome. He was evaluated with a chest x-ray procalcitonin D-dimer CT angio serial troponins, EKG. His COVID was negative and his cardiac markers were negative. He was found to have an infiltrate concerning for community-acquired pneumonia for which he was admitted and treated. Today, he presents to the clinic for follow-up stating that his symptoms have significantly improved. He denies any shortness of breath or chest pain. His oxygen saturation is 95% now on room air his cough has subsided. He finished his treatment outpatient. We will check a chest x-ray next week to ensure resolution. He has a new concern of severe left-sided knee pain. He states in the past he has had swelling in the knee that required fluid removal. On exam, I do not appreciate a large fluid collection. He does have significant tenderness over the patellar region. He does have a history of advanced osteoarthritis. I recommended we proceed with an x-ray today and possibly a visit with Orthopedics if they do have availability. He has been using occasional Tylenol ibuprofen. He is able to bear weight and walk on the knee without difficulty. In fact he states walking on it does not hurt it is, trying to bend it that is painful. The following portions of the patient's history were reviewed and updated as appropriate: allergies,current medications, family history, medical history, social history, surgical history, and problem list. REVIEW OF SYSTEMS A ten point ROS is otherwise negative OBJECTIVE BP (!) 166/77 (BP Location: Right arm, Patient Position: Sitting, Cuff Size: Regular) Pulse 64 Temp 36.3 ??C (Temporal) Resp 20 Wt 90.8 kg SpO2 95% BMI 30.51 kg/m?? PHYSICAL EXAM General: Patient alert and oriented, appearing in no acute distress. Well groomed and dressed appropriately. Head: Normocephalic, atraumatic. Eyes: Sclerae clear without injection. Conjunctivae without drainage, erythema or matting. Ears/Nose/Throat: External ear canals patent. TMs pearly chanel bilaterally. Neck: Supple without lymphadenopathy. Trachea midline. Respiratory: Clear to auscultation bilaterally posteriorly without rhonchi, wheezes, or crackles. Nocough on exam today. Respirations are easy and unlabored. Cardiac: S1 and S2 present with regular rate and rhythm. No murmurs or S3, S4 auscultated. No carotid bruits Abdomen:Soft, nondistended and nontender to palpation without palpable masses or organomegaly. Normoactive bowel sounds. Musculoskeletal: Slight knee swelling noted on the left side, he does have some redness over the patellar region but no temperature change concerning for cellulitis., he does have difficulty with flexion extension at the knee joint. He can bear weight on the knee. Neurologic: Alert and Oriented x3. Responds appropriately to questions. Follows commands without difficulty. Pupils equal and reactive to light. Cranial nerves II through XII grossly intact. EOMs intact. No unilateral or focal weakness, no involuntary movements. Adequate coordination. Skin: Warm and dry. Intact and without rashes on visible areas. 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 The patient does have a history of coronary disease and PCI. He had a thorough workup to rule out acute coronary syndrome. He was evaluated with a chest x-ray procalcitonin D-dimer CT angio serial troponins, EKG. His COVID was negative and his cardiac markers were negative. He was found to have an infiltrate concerning for community-acquired pneumonia for which he was admitted and treated. Today, he presents to the clinic for follow-up stating that his symptoms have significantly improved. He denies any shortness of breath or chest pain. His oxygen saturation is 95% now on room air his cough has subsided. He finished his treatment outpatient. We will check a chest x-ray next week to ensure resolution. He has a new concern of severe left-sided knee pain. He states in the past he has had swelling in the knee that required fluid removal. On exam, I do not appreciate a large fluid collection. He does have significant tenderness over the patellar region. He does have a history of advanced osteoarthritis. I recommended we proceed with an x-ray today and possibly a visit with Orthopedics if they do have availability. He has been using occasional Tylenol ibuprofen. He is able to bear weight and walk on the knee without difficulty. In fact he states walking on it does not hurt it is, trying to bend it that is painful. Orders Placed This Encounter DX Knee Left 3 Views Standing Status: Future Number of Occurrences: 1 Standing Expiration Date: 03/16/2023 Order Specific Question: Clinical question to be answered Answer: Left knee pain Order Specific Question: Select View Answer: Per Protocol Order Specific Question: Select Position Answer: Per Protocol Order Specific Question: Region Answer: [facility] [[id number]] Order Specific Question: Should the communication of this result to the patient???s portal be released immediately? Answer: Release Immediately DX Chest AP or PA and Lateral 2 Views Standing Status: Future Standing Expiration Date: 12/14/2022 Order Specific Question: Clinical question to be answered Answer: pneumonia follow up Order Specific Question: Region: Answer: [facility] [[id number]] Order Specific Question: Should the communication of this result to the patient???s portal be released immediately? Answer: Release Immediately Orthopedic Surgery - Knee non surgical consult (clinic) Standing Status: Future Number of Occurrences: 1 Standing Expiration Date: 03/16/2023 Referral Priority: Routine Referral Type: Outpatient Referral Location: [facility] Requested Specialty: Orthopedic Surgery Number of Visits Requested: 1 Primary Care nurse visit (clinic) - [facility]; Vital signs, BP check; BP check w/ education(RN) Blood pressure evaluation Standing Status: Future Standing Expiration Date: 03/16/2023 Referral Priority: Routine Referral Type: Outpatient Referral Location: [facility] Number of Visits Requested: 1 Symptoms: if symptoms are getting worse or patient develops fever/chills or new symptoms: advise patient to come back and see a provider immediately. PATIENT EDUCATION Patient Education: Ready to learn, no apparent learning barriers were identified; learning preferences include listening. Explained diagnosis and treatment plan; patient expressed understanding of the content. Time spent 36 minutes Electronically signed by: Faiza Truong D.O. 12/14/21 4:45 PM CDT documented in this encounter Plan of Treatment Upcoming Encounters Date Type Specialty Care Team Description 04/12/2022 Office Visit Cardiovascular Disease Simone Gooden AP RN, C.N.P. [address] [place] [phone] (Wo rk) Scheduled Referrals Name Type Priority Associated Order Schedule Diagnoses Orthopedic Surgery - Outpatient Referral Routine Pain Knee Lef t Expected: Knee non surgical 12/14/2021 consult (clinic) (Approximat e), Expires: 03/16/2023 Primary Care nurse Outpatient Referral Routine Ex pected: visit (clinic) - 12/21/2021 [facility] Region; (Approxim ate), Vital signs, BP Expires: check; BP check w 3 education (RN) documented as of this encounter Results DX Chest AP or PA and Lateral 2 Views (12/21/2021 10:52 AM CDT) Anatomical Region Laterality Modality Chest, Thoracic RST LOS, Thoracic ARZ LOS, Thoracic N/A Digital Radiography FLA LOS Specimen (Source) Anatomical Collection Method Collection Time Re ceived Time Location / / Volume Laterality 12/21/2021 12:06 PM CDT Impressions 12/21/2021 12:07 PM CDT AP portable technique. No definite change. No dense consolidation. No pleural effusion. Cardiac silhouette and pulmonary vascula rity within normal limits. No pneumothorax. Aortic calcification. Postoperative change both shoulders. Thoracic spondylosis. Chronic trace wedging of lower thoracic vertebra. Comparison with 06/14/2019. Narrative 12/21/2021 12:07 PM CDT EXAM: DX CHEST AP OR PA AND LATERAL 2 VIEWS Procedure Note Isidro Latif M.D. - 12/21/2021Formatt ing of this note might be different from the original. EXAM: DX CHEST AP OR PA AND LATERAL 2 EWS IMPRESSION: AP portable technique. No definite cook e. No dense consolidation. No pleural effusion. Cardiac silhouette and pulmonary vascula rity within normal limits. No pneumothorax. Aortic calcification. Postoperative change both shoulders. Thoracic spondylosis. Chronic trace wedging of lower thoracic vertebra. Comparison with 06/14/2019. Faiza Truong D.O. [facility] PROC ED[facility] DX Knee Left 3 Views (12/14/2021 12:35 PM CDT) Anatomical Region Laterality Modality Lower Extremity, Knee, Musculoskeletal RST LOS, Left Digital Radiography Musculoskeletal ARZ LOS, Muskuloskeletal FLA LOS Specimen (Source) Anatomical Collection Method Collection Time Re ceived Time Location / / Volume Laterality 12/14/2021 2:07 PM CDT Impressions 12/14/2021 2:07 PM CDT Advanced bilateral knee medial compartment osteoarthritis. Bilateral knee chondrocalcinosis, right greater than le ft. Moderate bilateral patellofemoral degeneration. Zodn-hf-[id number] bilateral knee lateral compartment degeneration. Moderate left knee joint effusion. Scattered vascular calcifications. No di slocation. Negative for acute fracture. Narrative 12/14/2021 2:07 PM CDT EXAM: DX KNEE LEFT 3 VIEWS Procedure Note Simone Guzman M.D. - 12/14/2021Formattin g of this note might be different from the original. EXAM: DX KNEE LEFT 3 VIEWS IMPRESSION: Advanced bilateral knee medial compartme nt osteoarthritis. Bilateral knee chondrocalcinosis, right greater than le ft. Moderate bilateral patellofemoral degeneration. Gybm-cb-gqsspbrr bilateral knee lateral compartment degeneration. Moderate left knee joint effusion. Scattered vascular calcifications. No di slocation. Negative for acute fracture. Faiza [facility] PROC EDURES documented in this encounter Visit Diagnoses Diagnosis Pneumonia - Primary Pain Knee Left Bronchitis Chronic (HCC) Malignant Neoplasm Of Bladder Lateral Wa ll (HCC) History Of Falling Tobacco Use Pain Knee Left Pneumonia documented in this encounter Additional Health Concerns Assessment Noted Time PHQ-9 Depression Total Score: 3 10/31/2020 10:00 AM CD T documented as of this encounter Care Teams Corrections Lieutenant Relationship Specialty Start Date End Date Faiza Truong D.O. PCP - General Internal Medicine 10/19/19 [address] [place] [phone] documented as of this encounter
--- OUTSIDE RECORDS SUMMARY | 2022-03-29 07:44 | XMS_ITS | Encounter Summary ---
:1950 Author Organization [facility] Address [address] [place] [address] Care Team Providers Name Role Phone Fiaza Truong D.O. Primary Care Provider [phone] Reason for Visit Reason Comments Hypertension Outpatient (Routine) - Closed Specialty Diagnoses / Procedures Referred By Contact Refer red To Contact Daniel Truong D.O. [facility] [address] [place] [address] Referral ID Status Reason Start Date Expiration Date Visits Requ ested Visits Authorized [id number] Closed 12/14/2021 12/14/2022 1 1 Encounter Details Date Type Department Care Team Description 12/21/2021 Nurse Only Department of Family Faiza Weller D.O. [address] [place] [phone] Hypertension Medicine, [facility], Anni Ace R.NBhavesh in [facility] [address], [place] [phone] Social History Tobacco Use Types Packs/Day Years [...] week 04/16/2019 How often do you attend sikhism or mandaen services? 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 - 12/21/2021 10:00 AM CDT Mik is seen today for a blood pressure visit as ordered by Dr. Serrato. Visit was conducted in clinic. Today's blood pressure reading and prior two readings: BP Readings from Last 3 Encounters: 12/21/21 123/73 12/14/21 (!) 166/77 09/25/21 129/68 . Medication list was reconciled, and patient is taking their blood pressure medication as prescribed. The patient reports no acute symptoms of hypertension Patient's blood pressure goal is 140/90. Blood pressure has decreased since last visit. Medication Compliance: has been taking medications as prescribed. Patient identified the following lifestyle choices they would like to focus on during this visit Diet: does not add salt to food, rarely eats out, drinks 5 cups of coffee/ caffeine per day, and tries to eat chicken, fish, turkey, fruits and vegetables. Exercise: Yes Tobacco Use: Yes, smokes a few cigarettes per week. Stress management: denies stressors. Patient identified the following personal goals at this visit: patient wants to continue to be active and eat fairly well. Recommendations given to: limit caffeine intake and continue to get exercise and try to eat a healthy diet. The provider will be notified of today's visit and the patient was dismissed. Patient is requested to follow up with provider as recommended. documented in this encounter Plan of Treatment Upcoming Encounters Date Type Specialty Care Team Description 04/12/2022 Office Visit Cardiovascular Disease Simone Gooden AP RN, C.N.P. [address], [place] [phone] (Wo rk) documented as of this encounter Visit Diagnoses Diagnosis Elevated Blood Pressure - Primary documented in this encounter Additional Health Concerns Assessment Noted Time PHQ-9 Depression Total Score: 3 10/31/2020 10:00 AM CD T documented as of this encounter Care Teams Oven Attendant Relationship Specialty Start Date End Date Faiza Truong D.O. PCP - General Internal Medicine 10/19/19 [address] [phone] documented as of this encounter
--- OUTSIDE RECORDS SUMMARY | 2022-03-29 07:44 | XMS_ITS | Encounter Summary ---
:1950 Author Organization [facility] Address [address] [place] [address] Care Team Providers Name Role Phone Faiza Truong D.O. Primary Care Provider [phone] Reason for Visit Reason Comments Med Refill Encounter Details Date Type Department Care Team Description 10/22/2021 Refill Department of Internal Medicine Faiza Atkinson, Med Refill in [place], Mame ta D.O. [address] [place] [address] [place] [phone] (Wo rk) Social History Tobacco Use Types [...] week 04/16/2019 How often do you attend christian or gnosticism services? 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 - 10/22/2021 6:35 PM CDT All prescriptions approved. Telephone Encounter - Michael Jones - 10/22/2021 1:52 PM CDT Images from the original note were not included. Nurse review: Unable to forward request to provider; Drug Change Request Primary Provider: Faiza Truong D.O. documented in this encounter Plan of Treatment Upcoming Encounters Date Type Specialty Care Team Description 04/12/2022 Office Visit Cardiovascular Disease Simone Gooden AP RN, C.N.P. [address] [phone] (Wo rk) documented as of this encounter Visit Diagnoses Not on filedocumented in this encounter Additional Health Concerns Assessment Noted Time PHQ-9 Depression Total Score: 3 10/31/2020 10:00 AM CD T documented as of this encounter Care Teams Fabrication Mig Welder Relationship Specialty Start Date End Date Faiza Truong D.O. PCP - General Internal Medicine 10/19/[address] [phone] documented as of this encounter
--- OUTSIDE RECORDS SUMMARY | 2022-03-29 07:44 | XMS_ITS | Encounter Summary ---
:1950 Author Organization [facility] Address [address] [place] [address] Care Team Providers Name Role Phone Faiza Truong D.O. Primary Care Provider [phone] Encounter Details Date Type Department Care Team Description 02/20/2021 Orders Only [facility] - Luis Manuel Truong, [address] , [facility] [address] [place] [address] [phone] [place] [address] (Wo rk) Social History Tobacco Use [...] week 04/16/2019 How often do you attend lutheran or buddhist services? 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 [address] [phone] (Wo rk) documented as of this encounter Visit Diagnoses Not on filedocumented in this encounter Additional Health Concerns Assessment Noted Time PHQ-9 Depression Total Score: 3 10/31/2020 10:00 AM CD T documented as of this encounter Care Teams Public Relations Assistant Relationship Specialty Start Date End Date Faiza Truong D.O. PCP - General Internal Medicine 10/19/[address] [phone] documented as of this encounter
--- OUTSIDE RECORDS SUMMARY | 2022-03-29 07:44 | XMS_ITS | Encounter Summary ---
:1950 Author Organization [facility] Address [address] [place] [address] Care Team Providers Name Role Phone Faiza Truong D.O. Primary Care Provider [phone] Encounter Details Date Type Department Care Team Description 03/06/2021 Immunization Department of [facility] Kathryn Koo M.D. [facility], [facility] [address] [place] [phone] [place] [address] [place] [address] [facility] [phone] Social History Tobacco Use Types Packs/Day Years [...] week 04/16/2019 How often do you attend rastafarian or christian services? 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 [address] [phone] (Wo rk) documented as of this encounter Visit Diagnoses Not on filedocumented in this encounter Additional Health Concerns Assessment Noted Time PHQ-9 Depression Total Score: 3 10/31/2020 10:00 AM CD T documented as of this encounter Care Teams Advanced Practice Nurse Psychotherapist Relationship Specialty Start Date End Date Faiza Truong D.O. PCP - General Internal Medicine 10/19/[address] [phone] documented as of this encounter
--- OUTSIDE RECORDS SUMMARY | 2022-03-29 07:44 | XMS_ITS | Encounter Summary ---
:1950 Author Organization [facility] Address [address] [place] [address] Care Team Providers Name Role Phone Faiza Truong D.O. Primary Care Provider [phone] Encounter Details Date Type Department Care Team Description 02/16/2021 Orders Only Pharmacy Prior Auth [place] Dionne, Yohannes Kendall [address] [place] [address] (Wo rk) Social History Tobacco [...] week 04/16/2019 How often do you attend anglican or anglican services? 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 [address] [phone] (Wo rk) documented as of this encounter Visit Diagnoses Not on filedocumented in this encounter Additional Health Concerns Assessment Noted Time PHQ-9 Depression Total Score: 3 10/31/2020 10:00 AM CD T documented as of this encounter Care Teams Clinic Lpn Relationship Specialty Start Date End Date Faiza Truong D.O. PCP - General Internal Medicine 10/19/[address] [phone] documented as of this encounter
--- OUTSIDE RECORDS SUMMARY | 2022-03-29 07:44 | XMS_ITS | Encounter Summary ---
:1950 Author Organization [facility] Address [address] [place] [address] Care Team Providers Name Role Phone Faiza Truong D.O. Primary Care Provider [phone] Reason for Referral Outpatient (Routine) - Closed Specialty Diagnoses / Procedures Referred By Contact Refer red To Contact Diagnoses Pain Knee Left Faiza Truong [facility] [place] [facility] Procedures DX Knee Left 3 Views D.O. [address] [place] [address] Referral ID Status Reason Start Date Expiration Date Visits Requ ested Visits Authorized [id number] Closed 12/14/2021 12/14/2022 1 1 Reason for Visit Outpatient (Routine) - Closed Specialty Diagnoses / Procedures Referred By Contact Refer red To Contact Diagnoses Pain Knee Left Faiza Truong [facility] [place] [facility] Procedures DX Knee Left 3 Views D.O. [address] [place] [address] Referral ID Status Reason Start Date Expiration Date Visits Requ ested Visits Authorized [id number] Closed 12/14/2021 12/14/2022 1 1 Encounter Details Date Type Department Care Team Description 12/14/2021 Hospital Encounter Department of Radiology Rahul chávez, Pain Knee Left in [place] White D.O. [address] [phone] [place] [phone] [address] Social History Tobacco Use Types Packs/Day Years Used Date Smoking Tobacco: Former Cigarettes Smokeless Tobacco: Never Comments: Quit in August 2021 - does occa sionally have 1 or 2 per week [...] week 04/16/2019 How often do you attend amish or latter day services? 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 albuterol (ProAir HFA) 90 Inhale 2 puffs 4 18 g 3 10/0401/15/2022 mcg/actuation inhaler (four) times a day as needed for wheezing or shortness of breath. isosorbide mononitrate Take 1 tablet (60 mg [...] Cardiovascular Disease Simone Gooden AP RN, C.N.P. [address] [phone] (Wo rk) documented as of this encounter Procedures Procedure Name Priority Date/Time Associated Comments Diagnosis DX KNEE LEFT 3 RAD - Routine 12/14/2021 12:35 Pain Knee Left Result s for this VIEWS (most inpatients PM CDT procedure a re in and all the results outpatients) section. documented in this encounter Results DX Knee Left 3 Views (12/14/2021 12:35 [...] than le ft. Moderate bilateral patellofemoral degeneration. Hwwb-kx-[id number] bilateral knee lateral compartment degeneration. Moderate left [...] than le ft. Moderate bilateral patellofemoral degeneration. Morb-se-zpbmxrgi bilateral knee lateral compartment degeneration. Moderate left knee joint effusion. Scattered vascular calcifications. No di slocation. Negative for acute fracture. Faiza Truong D.O. [facility] PROC EDURES documented in this encounter Visit Diagnoses Diagnosis Pain Knee Left documented in this encounter Additional Health Concerns Assessment Noted Time PHQ-9 Depression Total Score: 3 10/31/2020 10:00 AM CD T documented as of this encounter Care Teams Inside Tester Relationship Specialty Start Date End Date Faiza Truong D.O. PCP - General Internal Medicine 10/19/19 [address] [place] [phone] documented as of this encounter
--- OUTSIDE RECORDS SUMMARY | 2022-03-29 07:44 | XMS_ITS | Encounter Summary ---
:1950 Author Organization [facility] Address [address] [place] [address] Care Team Providers Name Role Phone Faiza Truong D.O. Primary Care Provider [phone] Reason for Visit Reason Comments Follow-up 6 month bladder cancer surve illance Outpatient (Routine) - Canceled Specialty Diagnoses / Procedures Referred By Contact Refer red To Contact Diagnoses Malignant Neoplasm Of Bladder (HCC) Jatinder Camejo M.D. [facility] Procedures Cystoscopy (specific provider) [address] [place] [phone] Referral ID Status Reason Start Date Expiration Date Visits V isits Requested Authorized [id number] Canceled 07/09/2021 07/09/2022 1 1 Encounter Details Date Type Department Care Team Description 08/23/2021 Office Visit Department of Urology Jatinder Camejo Per rory History Of Malignant Neoplasm Of Bladder (Primary Dx); in [place] Postprocedural Bulbous Urethral Strictur e Male [place] [address] [place], [place] [phone] Social History Tobacco Use Types Packs/Day Years [...] week 04/16/2019 How often do you attend denominational or spiritism services? 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 - 08/23/2021 3:30 PM CDT CHIEF COMPLAINT/REASON FOR VISIT Cystoscopy. ?? The patient was appropriately identified with at least two separate identifiers and the correct procedure was confirmed. ??Verbal consent was obtained. ?? INDICATION: ??Bladder cancer surveillance ?? February 2010:??Initial Resection:??low-grade noninvasive, multifocal. ?? 6 weeks induction therapy of BCG. ?? January 02, 2015: Repeat Resection:??low-grade stage TA. ?? 2nd induction course of BCG. ?? February 2016: Repeat Resection:??grade 1, stage TA. ?? 3rd induction course of BCG with interferon. August 21, 2017:?biopsies obtained in clinic were negative,??this area was cauterized. May 20, 2018: Repeat resection: low grade stage TA, Mitomycin C given October 14, 2018: ??Repeat resection: negative for malignancy, Mitomycin C given. Last cystoscopy: ?January 29, 2021 which was negative. ?? Urine cytology dated?? August 16, 2021 is negative for high-grade cells. ? INSTRUMENT: ??Flexible cystourethroscope. ANESTHESIA: ??2% aqueous lidocaine jelly introduced into the urethra. ?? PROCEDURE: ??The patient was placed in a supine position. ??The genitalia were prepped and draped sterilely. ??The urethra was anesthetized with 2% aqueous lidocaine jelly. ??The cystoscope was advanced into the urethra. ?? FINDINGS: ?? Meatus: ??Normal. ?? Urethra: ??notable for urethral stricture not requiring dilation,??stricture calibrate to approximately 14-16??Khmer.?This was dilated by passage of the cystoscope. Prostate: Length: ??3 cm??centimeters. ?Lateral Lobes: ??Mild hypertrophy with no visual obstruction. ??Small benign-appearing polyp in the prostatic urethra, 6 o'clock position, immediately proximal to the Veru, stable.?This is suggestive of a fibroepithelial polyp. ?Middle Lobe: ?absent. ?? Bladder Neck: ??Normal. ?Residual Urine: ??Minimal (<??75 ml). ?? Ureteral Orifices: Singular bilaterally, normal position on the trigone, slit- like in configuration and with clear efflux of urine noted bilaterally. ?? Trabeculation: ??mild. ? Tumors: ?Multiple areas of inflammatory changes consistent with intravesical therapy. ??No obvious areas of malignancy or areas of concern are visualized.?Essentially unchanged from prior cystoscopies. ?? The procedure was well tolerated by the patient. ? He was discharged from the office in satisfactory condition. ??Post-cystoscopy instructions were reviewed with him. ?? IMPRESSION: ?1.??History of transitional cell carcinoma the urinary bladder, low-grade and superficial. ??No cystoscopic,??urine cytology was negative. 2. Bulbous urethral stricture, postprocedural, stable? Plan:?return to clinic for bladder cancer surveillance to include urine cytology and cystoscopyin 9-12 months. Electronically signed by: Jatinder Camejo M.D. 08/23/21 3:42 PM CDT documented in this encounter Plan of Treatment Upcoming Encounters Date Type Specialty Care Team Description 04/12/2022 Office Visit Cardiovascular Disease Simone Gooden AP RN, C.N.P. [address] [phone] (Wo rk) documented as of this encounter Results Cytology Non-HYDROLOGY TEACHER (Scheduled) (2022 2:55 PM CDT) Component Value Ref Test Analysis Performed At [facility] Range Method Time Signature 01/24/2022 HKCY 2:10 [...] Organization Address City/State/ZIP Code Phon e Number [facility]- [address] [place], [place] [id number] [place] [address] [place] [address] [facility] Cytology [address] [facility] documented in this encounter Visit Diagnoses Diagnosis Personal History Of Malignant Neoplasm O f Bladder - Primary Postprocedural Bulbous Urethral Strictur e Male documented in this encounter Additional Health Concerns Assessment Noted Time PHQ-9 Depression Total Score: 3 10/31/2020 10:00 AM CD T documented as of this encounter Care Teams Car Chaser Relationship Specialty Start Date End Date Faiza Truong D.O. PCP - General Internal Medicine 10/19/[address] [phone] documented as of this encounter
--- OUTSIDE RECORDS SUMMARY | 2022-03-29 07:44 | XMS_ITS | Encounter Summary ---
:1950 Author Organization [facility] Address [address] [place] [address] Care Team Providers Name Role Phone Faiza Truong D.O. Primary Care Provider [phone] Reason for Referral Outpatient (Routine) - Authorized Specialty Diagnoses / Procedures Referred By Contact Refer red To Contact Cardiovascular Disease Simone Gooden [facility], C.N.P. [address] [phone] Referral ID Status Reason Start Date Expiration Date Visits V isits Requested Authorized [id number] Authorized 09/25/2021 09/25/2022 1 1 Reason for Visit Reason Comments Coronary Artery Disease Outpatient (Routine) - Closed Specialty Diagnoses / Procedures Referred By Contact Refer red To Contact Cardiovascular Disease Simone Gooden [facility], C.N.P. [address] [address] Referral ID Status Reason Start Date Expiration Date Visits Requ ested Visits Authorized [id number] Closed 03/27/2021 03/27/2022 1 1 Encounter Details Date Type Department Care Team Description 09/25/2021 Office Visit Department of Simone Gooden Coronary Arter y Disease With Stable Angina (HCC) (Primary Dx); Cardiovascular Diseases CASEY Maguire Coro nary Stent Status Post; in [place] gopal C.N.P. Abuse Tobacco Smoking; [address] Hyperlipidemia; [place] [phone] Hypertensive Heart And Chronic Kidney Di sease Without Heart Failure And With Stage 2 (Mild) Chronic Kidney Disease [phone] [place] [phone] Social History Tobacco Use Types Packs/Day [...] week 04/16/2019 How often do you attend roman catholic or taoism services? 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 - 09/25/2021 2:30 PM CDT SUBJECTIVE CHIEF COMPLAINT/REASON FOR VISIT Follow-up coronary artery disease. HISTORY OF PRESENT ILLNESS Seven Salazar is seen today to follow-up on his underlying coronary artery disease and stable angina. I last saw him back in March. He reports that he has been feeling well over the last six months without any significant spells that would be consistent with angina. He denies any sublingual nitroglycerin use over the last six months. He continues to feel that he is an active person and is working at [employer] on a regular basis. He reports recently being able to do a bunch of yard work to [place] from the winter and he has tolerated this well without any significant cardiopulmonary symptoms. He denies any recent problems with chest pains, palpitations, shortness of breath, PND or orthopnea. He is on isosorbide for angina control and he has continued with dual anti-platelet therapy though his last stents were placed back in 2016. He has not had any problems with bleeding or bruising in as preferred to continue with dual anti- platelet therapy secondary to his increased risk of recurrent ischemic heart disease and continued tobacco use. He has known coronary artery disease and his heart history dates back to March of 2017. At that time he was seen for epigastric abdominal discomfort and ended up having an abnormal ECG and abnormal troponin level in the outpatient setting. He was sent directly to [facility] Emergency Room where he had ST changes in the inferior leads and a coronary angiogram revealed obstructive disease in the LAD, RCA and circumflex arteries. 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 He presented again in July of 2017 with symptoms of unstable angina and was diagnosed with an NSTEMI with a repeat coronary angiogram that revealed diffuse coronary artery disease but no focal areas of stenosis for intervention. CURRENT MEDICATIONS Current Outpatient Medications: ??? albuterol [...] mouth once daily, Disp: 90 tablet, Rfl: 0 ??? isosorbide mononitrate (IMDUR) 60 mg 24 hr tablet, Take 1 tablet (60 mg total) by mouth every morning., Disp: 90 tablet, Rfl: 3 ??? lisinopriL (PRINIVIL,ZESTRIL) 20 mg tablet, Take 1 tablet (20 mg total) by mouth every morning.,Disp: 90 tablet, Rfl: 3 ??? metoprolol succinate (TOPROL-XL) 25 mg 24 hr tablet, Take 1 tablet (25 mg total) by mouth daily.Do not crush or chew., Disp: 90 tablet, Rfl: 3 ??? nitroglycerin [...] Reactions ??? Bupropion Hcl Other (see comments) Ceranusha listed no reactions. Suicidal thoughts. ??? Citalopram [...] Disease (Unspecified) 06/12/2017 ??? Coronary Artery Disease [place] Vessel 06/12/2017 ??? Corticosteroid Treatment Half-Way Systemic 03/14/2017 ??? Cyst Renal 02/05/2016 ??? [...] 03/23/2004 ??? 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 Stroke ([facility]) 03/23/2004 SURGICAL HISTORY Past Surgical History: Procedure [...] 1 of 3 OBJECTIVE VITAL SIGNS BP 129/68 (BP Location: Right arm, Patient Position: Sitting, Cuff Size: Regular) Pulse 75 Wt 98kg SpO2 95% BMI 32.93 kg/m?? PHYSICAL EXAMINATION General: Well-appearing in no acute distress, alert and oriented x 3. Vessels: No JVD or carotid bruits. Heart: Regular rate and rhythm. Normal S1-S2. No murmurs. Lungs: Scattered rhonchi, no rales or wheezing. Abdomen: Nondistended. Extremities: Warm without pitting edema. DIAGNOSTICS Lab Results Component Value Date CREATININE 0.95 04/30/2021 BUN 20 04/30/2021 NA 136 04/30/2021 KSERUM 4.0 08/23/2020 KPLASMA 4.6 04/30/2021 CL 99 04/30/2021 CO2 27 08/23/2020 Lab Results Component Value Date CHOL 121 04/30/2021 Lab Results Component Value Date HDL 46 04/30/2021 Lab Results Component Value Date LDLCALC 61 04/30/2021 Lab Results Component Value Date TRIG 70 04/30/2021 Lab Results Component Value Date TTLCHOLHDLRT 2.08 04/26/2015 ASSESSMENT / PLAN #1 Coronary Artery Disease With Stable Angina (HCC) #2 Coronary Stent Status Post He seems to be doing well over the last six months. He has not had any problems with angina and has not been utilizing sublingual nitroglycerin. He continues to be active both at home and at work without any exertional symptoms. He remains on high-intensity statin therapy along with dual anti-platelettherapy. We have previously discussed the potential benefits and risks of continued dual anti-platelet therapy since his last stent intervention in 2016. With his continued tobacco use and prior history of multiple stenting he does have an elevated ACC DAPT score and prefers to continue with dual anti-platelet therapy. If he develops any issues with bleeding his Plavix should be discontinued. We willcontinue to reassess this issue at future follow-up visits. #3 Abuse Tobacco Smoking Tobacco cessation has been reviewed inpatient continues to be an active tobacco user. #4 Hyperlipidemia His lipid panel from April of 2021 was reviewed and his LDL is excellent at 61. The rest of his numbers are at goal. 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 He will continue his current medications and we will plan for a follow-up visit again in six months. documented in this encounter Plan of Treatment Upcoming Encounters Date Type Specialty Care Team Description 04/12/2022 Office Visit Cardiovascular Disease Simone Gooden, KELLY RN, C.N.P. [address] [phone] (Wo rk) Scheduled Referrals Name Type Priority Associated Order Schedule Diagnoses Cardiovascular Disease Outpatient Referral Routine Expected: office visit (clinic) 2021 (Approximate), Expires: 12/26/2022 documented as of this encounter Visit Diagnoses Diagnosis Coronary Artery Disease With Stable Gladis na (HCC) - Primary Coronary Stent Status Post Abuse Tobacco Smoking Hyperlipidemia Hypertensive Heart And Chronic Kidney Di sease Without Heart Failure And With Stage 2 (Mild) Chronic Kidney Disease documented in this encounter Additional Health Concerns Assessment Noted Time PHQ-9 Depression Total Score: 3 10/31/2020 10:00 AM CD T documented as of this encounter Care Teams Oven Equipment Repairer Relationship Specialty Start Date End Date Faiza Truong D.O. PCP - General Internal Medicine 10/19/[address] [phone] documented as of this encounter
--- OUTSIDE RECORDS SUMMARY | 2022-03-29 07:44 | XMS_ITS | Encounter Summary ---
:1950 Author Organization [facility] Address [address] [place] [address] Care Team Providers Name Role Phone Faiza Truong D.O. Primary Care Provider [phone] Encounter Details Date Type Department Care Team Description 02/19/2021 Orders Only Pharmacy Prior Auth RO Dionne, Yohannes Kendall [address] [place] [address] (Wo rk) Social History Tobacco [...] week 04/16/2019 How often do you attend yazidi or alevism services? 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 [address] [phone] (Wo rk) documented as of this encounter Visit Diagnoses Not on filedocumented in this encounter Additional Health Concerns Assessment Noted Time PHQ-9 Depression Total Score: 3 10/31/2020 10:00 AM CD T documented as of this encounter Care Teams Scale Operator Relationship Specialty Start Date End Date Faiza Truong D.O. PCP - General Internal Medicine 10/19/[address] [phone] documented as of this encounter
--- OUTSIDE RECORDS SUMMARY | 2022-03-29 07:44 | XMS_ITS | Encounter Summary ---
:1950 Author Organization [facility] Address [address] [place] [address] Care Team Providers Name Role Phone Faiza Truong D.O. Primary Care Provider [phone] Encounter Details Date Type Department Care Team Description 04/30/2021 Hospital Encounter Department of Carol Nelson nsumm Essential Primary; Laboratory Medicine Faiza ceron Screenin g Examination Prostate Cancer; in [place] Screening Examination Diabetes Mellitus; [place] [address] Coronary Artery Disease With Stable Angina (HCC); [address] [facility] [place] [phone] Social History Tobacco Use Types Packs/Day [...] week 04/16/2019 How often do you attend mosque or gnosticist services? 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 [address] 1 tablet (0.4 25 tablet 11 02/13/2021 (NITROSTAT) 0.4 mg SL mg total) under the tablet tongue every 5 (five) minutes as needed for chest pain. Place 1 tab under the tongue at first sign of chest pain. Repeat dose every 5 min up to 2 additional doses if chest pain continues. If no relief in 5 min, call 911. albuterol sulfate Inhale 2 puffs 4 1 each 11 02/13/2021 0 10/22/2021 (PROAIR RESPICLICK) 90 (four) times a day as mcg/actuation aerosol needed (for shortness powdr breath activated of breath and inhaler wheezing- Use with spacer chamber.). atorvastatin (LIPITOR) Take 1 tablet (80 mg 90 tablet 3 05/01/2021 80 mg tablet total) by mouth at bedtime. clopidogreL (PLAVIX) 75 Take 1 tablet by 90 tablet 3 202008/01/2021 mg tablet mouth once daily isosorbide mononitrate Take 1 tablet (60 mg 90 tablet 3 04/202102/26/2022 (IMDUR) 60 mg 24 hr total) by mouth every tabletIndications: morning. 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 metoprolol succinate Take 1 tablet by 90 tablet 3 1 05/01/2021 (TOPROL-XL) 25 mg 24 hr mouth once daily tabletIndications: Hypertensive Heart And Chronic Kidney Disease Without Heart Failure And With Stage 2 (Mild) Chronic Kidney Disease documented as of this encounter Plan of Treatment Upcoming Encounters Date Type Specialty Care Team Description 04/12/2022 Office Visit Cardiovascular Disease Brandl, Simone C, AP RN, C.N.P. [address] [phone] (Wo rk) documented as of this encounter Procedures Procedure Name Priority Date/Time Associated Diagnosis Comme nts LIPID PANEL, S Routine 04/30/2021 1:42 PM Coronary Artery Resu lts for this GAS ANALYST Disease With Stable procedur e are in Angina (HCC) the results Hyperlipidemia section. PROSTATE-SPECIFIC Routine 04/30/2021 1:42 PM Screening Examina tion Results for this AG (PSA) SCRN, S GAS ANALYST Prostate Cancer procedur e are in the results section. GLUCOSE, FASTING, Routine 04/30/2021 1:42 PM Screening Examina tion Results for this S/P GAS ANALYST Diabetes Mellitus procedure are in the results section. BASIC METABOLIC Routine 04/30/2021 1:42 PM Hypertension Result s for this PANEL, S/P GAS ANALYST Essential Primary procedure are in the results section. documented in this encounter Results Lipid Panel (04/30/2021 1:42 PM GAS ANALYST) athologist Signature Cholesterol, 121 mg/dL 04/30/2021 [place] Total 4:18 PM GAS ANALYST Comment: ----REFERENCE VALUE---- Desirable: < 200 Borderline high: 200 - 239 High: > or = 240 Triglycerides 70 mg/dL 04/30/2021 4:18 PM GAS ANALYST O[place] T Comment: ----REFERENCE VALUE---- Normal: <150 Borderline high: 150-199 High: 200-499 Very high: > or =500 Cholesterol, HDL 46 >=40 mg/dL 04/30/2021 4:18 PM GAS ANALYST [place] Calculated LDL 61 mg/dL 04/30/2021 4:18 PM GAS ANALYST [place] Comment: ----REFERENCE VALUE---- Desirable: <100 mg/dL Above Desirable: 100-129 mg/dL Borderline High: 130-159 mg/dL High: 160-189 mg/dL Very High: >=190 mg/dL Cholesterol, Non-HDL, Calculated 75 mg/dL 021 4:18 PM GAS ANALYST [place] Comment: ----REFERENCE VALUE---- Desirable: <130 Above Desirable: 130-159 Borderline high: 160-189 High: 190-219 Very high: > or =220 Specimen Anatomical Collection Method Collection Time Receive d Time (Source) Location / / Volume Laterality Blood (Blood, 04/30/2021 1:42 PM 04/30/20 3:36 Venous) GAS ANALYST PM GAS ANALYST Simone Gooden APRN, C.N.P. LAB BLOOD ADD-ON Performing Organization Address City/State/ZIP Code Phon e Number [facility] [address] [place] [address] [place] [address] System in [place] [address] Glucose, Fasting (04/30/2021 1:42 PM GAS ANALYST) athologist Signature Glucose, P 78 70 - 100 04/30/2021 [place] mg/dL 4:30 PM GAS ANALYST Last Intake 22 hr 04/30/2021 [place] 3:37 PM GAS ANALYST Specimen Anatomical Collection Method Collection Time Receive d Time (Source) Location / / Volume Laterality Blood (Blood, 04/30/2021 1:42 PM 04/30/20 3:37 Venous) GAS ANALYST PM GAS ANALYST Faiza Truong D.O. LAB BLOOD NON ADD-ON Performing Organization Address City/State/ZIP Code Phon e Number [facility]- [address] [place] [address] [place] [address] System in [place] [address] PSA (Prostate-Specific Antigen) Screen (04/30/2021 1:42 PM GAS ANALYST) athologist Signature Prostate-Specif 2.0 <=6.5 ng/mL 04/30/2021 [place] ic Ag 4:15 PM GAS ANALYST Comment: ----ADDITIONAL INFORMATION---- The testing method is an electrochemilum inescence assay manufactured by [employer] and performed on the Modular or Alexis system . Values obtained with different assay met hods or kits may be different and cannot be used inte rchangeably. Test results cannot be interpreted as ab solute evidence for the presence or absence of malignant disease. Specimen Anatomical Collection Method Collection Time Receive d Time (Source) Location / / Volume Laterality Blood (Blood, 04/30/2021 1:42 PM 04/30/20 3:37 Venous) GAS ANALYST PM GAS ANALYST Faiza Truong D.O. LAB BLOOD ADD-ON Performing Organization Address City/State/ZIP Code Phon e Number [facility]- [address] [place] [address] [place] [address] System in [place] [address] Metabolic Panel (04/30/2021 1:42 PM GAS ANALYST) P athologist Signature Potassium, P 4.6 3.6 - 5.2 04/30/2021 [place] mmol/L 4:19 PM GAS ANALYST Sodium, P 136 135 - 145 04/30/2021 [place] mmol/L 4:19 PM GAS ANALYST Chloride, P 99 98 - 107 04/30/2021 [place] mmol/L 4:19 PM GAS ANALYST Bicarbonate, P 28 22 - 29 04/30/2021 [place] mmol/L 4:18 PM GAS ANALYST Anion Gap, P 9 7 - 15 04/30/2021 [place] 4:19 PM GAS ANALYST BUN (Blood Urea 20 8 - 24 04/30/2021 [place] Nitrogen), P mg/dL 4:18 PM GAS ANALYST Creatinine 0.95 0.74 - 04/30/2021 [place] 1.35 mg/dL 4:18 PM GAS ANALYST eGFR-Black/Afric >90 >=60 04/30/2021 [place] an Afghan mL/min/BSA 4:18 PM GAS ANALYST Comment: ----ADDITIONAL INFORMATION---- Estimated GFR calculated using the 2009 CKD_EPI creatinine equation. eGFR Non-Black/ 80 >=60 mL/min/BSA 4:18 PM GAS ANALYST [place] Comment: ----ADDITIONAL INFORMATION---- Estimated GFR calculated using the 2009 CKD_EPI creatinine equation. Calcium, Total, P 9.8 8.8 - 10.2 mg/dL 04/30/2021 4:18 PM GAS ANALYST [place] Glucose, P CANCELED mg/dL 04/30/2021 3:37 PM GAS ANALYST [place] Comment: Test not performed. See Fasting Glucose result. Result canceled by the ancillary. Specimen Anatomical Collection Method Collection Time Receive d Time (Source) Location / / Volume Laterality Blood (Blood, 04/30/2021 1:42 PM 04/30/20 3:36 Venous) GAS ANALYST PM GAS ANALYST Faiza Truong D.O. LAB BLOOD ADD-ON Performing Organization Address City/State/ZIP Code Phon e Number [facility] [address] [place] [address] [place] [address] System in [place] [address] documented in this encounter Visit Diagnoses Diagnosis Hypertension Essential Primary Screening Examination Prostate Cancer Screening Examination Diabetes Mellitus Coronary Artery Disease With Stable Gladis na (HCC) Hyperlipidemia documented in this encounter Additional Health Concerns Assessment Noted Time PHQ-9 Depression Total Score: 3 10/31/2020 10:00 AM CD T documented as of this encounter Care Teams Hand Wood Sander Relationship Specialty Start Date End Date Faiza Truong D.O. PCP - General Internal Medicine 10/19/[address] [place] [phone] documented as of this encounter
--- OUTSIDE RECORDS SUMMARY | 2022-03-29 07:44 | XMS_ITS | Encounter Summary ---
:1950 Author Organization [facility] Address [address] [place] [address] Care Team Providers Name Role Phone Faiza Truong D.O. Primary Care Provider [phone] Reason for Visit Reason Comments Med Refill Encounter Details Date Type Department Care Team Description 10/25/2021 Refill Department of Cardiovascular Simone Gooden APRN, Med Refill Diseases in [place], [place] C.N.P. [address] [place] [address] [place], [place] [phone] (Wo rk) Social History Tobacco Use [...] week 04/16/2019 How often do you attend adventism or christian services? 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 [address] [phone] (Wo rk) documented as of this encounter Visit Diagnoses Not on filedocumented in this encounter Additional Health Concerns Assessment Noted Time PHQ-9 Depression Total Score: 3 10/31/2020 10:00 AM CD T documented as of this encounter Care Teams Recruiting And Selection Consultant Relationship Specialty Start Date End Date Faiza Truong D.O. PCP - General Internal Medicine 10/19/[address] [phone] documented as of this encounter
--- OUTSIDE RECORDS SUMMARY | 2022-03-29 07:44 | XMS_ITS | Encounter Summary ---
:1950 Author Organization [facility] Address [address] [place] [address] Care Team Providers Name Role Phone Faiza Truong D.O. Primary Care Provider [phone] Reason for Visit Reason Comments Med Refill Encounter Details Date Type Department Care Team Description 07/31/2021 Refill Department of Cardiovascular Simone Gooden APRN, Med Refill Diseases in [place], [place] C.N.P. [address] [place] [address] [place], [place] [phone] (Wo rk) Social History Tobacco Use [...] week 04/16/2019 How often do you attend yarsanism or gnosticism services? 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 [address] [phone] (Wo rk) documented as of this encounter Visit Diagnoses Not on filedocumented in this encounter Additional Health Concerns Assessment Noted Time PHQ-9 Depression Total Score: 3 10/31/2020 10:00 AM CD T documented as of this encounter Care Teams Adult Caregiver Relationship Specialty Start Date End Date Faiza Truong D.O. PCP - General Internal Medicine 10/19/[address] [phone] documented as of this encounter
--- OUTSIDE RECORDS SUMMARY | 2022-03-29 07:44 | XMS_ITS | Encounter Summary ---
:1950 Author Organization [facility] Address [address] [place] [address] Care Team Providers Name Role Phone Faiza Truong D.O. Primary Care Provider [phone] Reason for Referral Outpatient (Routine) - Closed Specialty Diagnoses / Procedures Referred By Contact Refer red To Contact Diagnoses Pneumonia Faiza Truong [facility] [place] [facility] Procedures DX Chest AP or PA and Lateral 2 Views DX Chest AP or PA and Lateral 2 Views D.O. [address] [place] [phone] Referral ID Status Reason Start Date Expiration Date Visits Requ ested Visits Authorized [id number] Closed 12/14/2021 12/14/2022 1 1 Reason for Visit Outpatient (Routine) - Closed Specialty Diagnoses / Procedures Referred By Contact Refer red To Contact Diagnoses Pneumonia Faiza Truong [facility] [place] [facility] Procedures DX Chest AP or PA and Lateral 2 Views DX Chest AP or PA and Lateral 2 Views D.O. [address] [place] [phone] Referral ID Status Reason Start Date Expiration Date Visits Requ ested Visits Authorized [id number] Closed 12/14/2021 12/14/2022 1 1 Encounter Details Date Type Department Care Team Description 12/21/2021 Hospital Encounter Department of Radiology Rahul chávez, Pneumonia in [place] gopal Kendall D.O. [address] [phone] [place] [phone] Social History Tobacco Use Types Packs/Day [...] week 04/16/2019 How often do you attend rastafari or congregation services? 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 - 12/26/2021 12:29 PM CDT Good news, your chest x-ray looks stable. Electronically signed by: Faiza Truong D.O. 12/26/21 12:29 PM CDT documented in this encounter Plan of Treatment Upcoming Encounters Date Type Specialty Care Team Description 04/12/2022 Office Visit Cardiovascular Disease Simone Gooden AP RN, C.N.P. [address] [phone] (Wo rk) documented as of this encounter Procedures Procedure Name Priority Date/Time Associated Comments Diagnosis DX CHEST AP OR PA RAD - Routine 12/21/2021 10:52 Pneumonia Resul ts for this AND LATERAL 2 (most inpatients AM CDT procedure are in VIEWS and all the results outpatients) section. documented in this encounter Results DX Chest AP or [...] vertebra. Comparison with 06/14/2019. Faiza Truong D.O. IM DIAGNOSTIC IMAGING PROC EDURES documented in this encounter Visit Diagnoses Diagnosis Pneumonia documented in this encounter Additional Health Concerns Assessment Noted Time PHQ-9 Depression Total Score: 3 10/31/2020 10:00 AM CD T documented as of this encounter Care Teams Tea Blender Relationship Specialty Start Date End Date Faiza Truong D.O. PCP - General Internal Medicine 10/19/19 [address], [place] [phone] documented as of this encounter
--- OUTSIDE RECORDS SUMMARY | 2022-03-29 07:44 | XMS_ITS | Encounter Summary ---
:1950 Author Organization [facility] Address [address] [place] [address] Care Team Providers Name Role Phone Faiza Truong D.O. Primary Care Provider [phone] Reason for Visit Reason Comments Diabetes Mellitus Hypertension Outpatient (Routine) - Closed Specialty Diagnoses / Procedures Referred By Contact Refer red To Contact Community Internal YAIR Truong [facility] Yohannes Kendall [address], [place] [address] Referral ID Status Reason Start Date Expiration Date Visits Requ ested Visits Authorized [id number] Closed 10/31/2020 10/31/2021 1 1 Encounter Details Date Type Department Care Team Description 05/01/2021 Office Visit Department of Internal Andrez Truong oronary Artery Disease Without Angina Pectoris (Primary Dx); Medicine in Faiza Tirado D.O . Abuse Tobacco Smoking; [place] [address] [place] [address] Hyperlipidemia; [address] [place], [place] Hypertensive Heart And Chron ic Kidney Disease Without Heart Failure And With Stage 2 (Mild) Chronic Kidney Disease; [place] [address] Counseling Diet [phone] Social History Tobacco Use Types Packs/Day [...] week 04/16/2019 How often do you attend yazdanism or hinduism services? 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 documented as of this encounter Last Filed Vital Signs Vital Sign Reading Time Taken Comments Blood Pressure 137/73 05/01/2021 12:59 PM CONSUMER LOAN SPECIALIST Pulse 75 05/01/2021 12:59 PM CONSUMER LOAN SPECIALIST Temperature 36.8 ??C (98.2 ??F) 05/01/2021 12:59 PM CONSUMER LOAN SPECIALIST Respiratory Rate - - Oxygen Saturation 96% 05/01/2021 12:59 PM CONSUMER LOAN SPECIALIST Inhaled Oxygen Concentration - - Weight 96.1 kg (211 lb 13.8 oz) 05/01/2021 12:59 PM CONSUMER LOAN SPECIALIST Height - - Body Mass Index 32.3 10/31/2020 10:43 AM CDT documented in this encounter Progress Notes Faiza Truong D.O. - 05/01/2021 1:00 PM CST SUBJECTIVE CHIEF COMPLAINT / REASON FOR VISIT Seven Salazar is a 71 y.o. male who presents for evaluation of Diabetes Mellitus and Hypertension. HISTORY OF PRESENT ILLNESS Seven Salazar is a 71 y.o. male with past medical history significant for coronary artery disease with stable angina, history of coronary artery stenting, hypertension, CKD stage 2, impaired fasting glucose,??and??tobacco use who presents today for follow-up multiple medical issues. Right now he has mild nasal/chest congestion, but is otherwise doing well. Right away in the morninghe has more congestion but it improves throughout the day as he gets moving. He has been using his inhaler occasionally. He is not taking anything over the counter for this. He had been eating a sweet roll every morning for breakfast, but 3 months ago he cut this out. He has also cut back on all sweets in his diet. For exercise he walks and remains active with full-time work. Since October 2020 he has lost 3.9 kg The following portions of the patient's history were reviewed and updated as appropriate: allergies,current medications, family history, medical history, social history, surgical history, and problem list. REVIEW OF SYSTEMS A ten point ROS is otherwise negative OBJECTIVE BP 137/73 (BP Location: Right arm, Patient Position: Sitting, Cuff Size: Regular) Pulse 75 Temp 36.8 ??C (Temporal) Wt 96.1 kg SpO2 96% BMI 32.30 kg/m?? PHYSICAL EXAMINATION General Appearance: healthy, alert, no distress. Skin: skin color, texture, turgor normal, no suspicious rashes or lesions. Head: normocephalic, no masses, lesions, tenderness or abnormalities. Neck: Supple, no adenopathy; thyroid symmetric, normal size, no bruits. Lungs: clear to auscultation, no wheezing or rhonchi. Upper airway congestion. Heart: RRR without murmur, gallop, or rubs. No ectopy, No carotid bruits. Extremities: DTRs: Patella and Achilles 2+ bilaterally and symmetric. No edema, cyanosis or calf tenderness.. Hospital Outpatient Visit on 04/30/2021 Component Date Value Ref Range Status ??? Potassium, P 04/30/2021 4.6 3.6 - 5.2 mmol/L Final ??? Sodium, P 04/30/2021 136 135 - 145 mmol/L Final ??? Chloride, P 04/30/2021 99 98 - 107 mmol/L Final ??? Bicarbonate, P 04/30/2021 28 22 - 29 mmol/L Final ??? Anion Gap, P 04/30/2021 9 7 - 15 Final ??? BUN (Blood Urea Nitrogen), P 04/30/2021 20 8 - 24 mg/dL Final ??? Creatinine, P 04/30/2021 0.95 0.74 - 1.35 mg/dL Final ? ? eGFR-Black/ 04/30/2021 >90 >=60 mL/min/BSA Final ? ? eGFR Non-Black/ 04/30/2021 80 >=60 mL/min/BSA Final ??? Calcium, Total, P 04/30/2021 9.8 8.8 - 10.2 mg/dL Final ??? Glucose, P 04/30/2021 CANCELED mg/dL Final ? ? Prostate-Specific Ag 04/30/2021 2.0 <=6.5 ng/mL Final ??? Glucose, P 04/30/2021 78 70 - 100 mg/dL Final ??? Last Intake 04/30/2021 22 hr Final ??? Cholesterol, Total, P 04/30/2021 121 mg/dL Final ??? Triglycerides, Fasting, P 04/30/2021 70 mg/dL Final ? ? Cholesterol, HDL, P 04/30/2021 46 >=40 mg/dL Final ??? Calculated LDL 04/30/2021 61 mg/dL Final ??? Non HDL Cholesterol 04/30/2021 75 mg/dL Final ASSESSMENT / PLAN #1 Coronary Artery Disease Without Angina Pectoris Asymptomatic. He denies any chest pain, shortness of breath. He remains active with regular walking and with work. PLAN: Continue aggressive risk factor modification- on statin, aspirin, Plavix, Imdur. Also on beta-muna and ANTHONY-I. Encouraged smoking cessation. #2 Abuse Tobacco Smoking PLAN: Encouraged smoking cessation. He can reach at out any point if he would like assistance. #3 Hyperlipidemia on treatment #4 Counseling Diet Well controlled with lipid panel 04/30/2021- LDL 61, total cholesterol 121. PLAN: Continue atorvastatin 80 mg daily. Commended him on dietary changes and reducing sweets. 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 PLAN: Continue metoprolol succinate 25 mg daily and lisinopril 20 mg daily. He denies any chest pain, shortness of breath, or headaches. Continue to monitor blood pressure, goal less than 140/80. Last creatinine 0.95 on 04/30/2021. - lisinopriL (PRINIVIL,ZESTRIL) 20 mg tablet; Take 1 tablet (20 mg total) by mouth every morning., Starting Fri05/01/2021, Normal - metoprolol succinate (TOPROL-XL) 25 mg 24 hr tablet; Take 1 tablet (25 mg total) by mouth daily. Do not crush or chew., Starting Fri05/01/2021, Normal #5 Follow-up Visit PLAN: Return to the clinic in 6 months. PATIENT EDUCATION Patient Education: Ready to learn, no apparent learning barriers were identified; learning preferences include listening. Explained diagnosis and treatment plan; patient expressed understanding of the context. This document serves as a record of services personally performed by Faiza Truong D.O.. Itwas created on their behalf by Jillian Aguirre, a trained manager of medical. The creation of this record is based on the scribe remotely listening to the visit and the provider's statements to them. This document has been checked and approved by the attending provider. Time spent 31 minutes UMER LOAN SPECIALIST documented in this encounter Plan of Treatment Upcoming Encounters Date Type Specialty Care Team Description 04/12/2022 Office Visit Cardiovascular Disease Simone Gooden AP RN, C.N.P. [address] [phone] (Wo rk) documented as of this encounter Visit Diagnoses Diagnosis Coronary Artery Disease Without Angina P ectoris - Primary Abuse Tobacco Smoking Hyperlipidemia Hypertensive Heart And Chronic Kidney Di sease Without Heart Failure And With Stage 2 (Mild) Chronic Kidney Disease Counseling Diet documented in this encounter Additional Health Concerns Assessment Noted Time PHQ-9 Depression Total Score: 3 10/31/2020 10:00 AM CD T documented as of this encounter Care Teams Cae Engineer Relationship Specialty Start Date End Date Faiza Truong D.O. PCP - General Internal Medicine 10/19/[address] [phone] documented as of this encounter
--- OUTSIDE RECORDS SUMMARY | 2022-03-29 07:44 | XMS_ITS | Encounter Summary ---
:1950 Author Organization [facility] Address [address] [place] [address] Care Team Providers Name Role Phone Faiza Truong D.O. Primary Care Provider [phone] Encounter Details Date Type Department Care Team Description 08/23/2021 Ancillary Procedure Department of Urology Social History [...] week 04/16/2019 How often do you attend mu-ism or shinto services? 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 [address] [phone] (Wo rk) documented as of this encounter Procedures Procedure Name Priority Date/Time Associated Diagnosis Comme nts UROLOGY IMAGE EXAM Routine 08/23/2021 11:15 AM Re sults for this CDT procedure are i n the results section. documented in this encounter Results CYSTOSCOPY-Urology Image Exam (08/23/2021 11:15 AM CDT) Specimen (Source) Anatomical Location Collection Method / Collectio n Time Received Time / Laterality Volume Narrative IIMS - 08/23/2021 3:52 PM CDT This order has been created [...] documented as of this encounter Care Teams Hospital Staff Pharmacist Relationship Specialty Start Date End Date Faiza Truong D.O. PCP - General Internal Medicine 10/19/19 [address] [place] [phone] documented as of this encounter
--- OUTSIDE RECORDS SUMMARY | 2022-03-29 07:44 | XMS_ITS | Encounter Summary ---
:1950 Author Organization [facility] Address [address] [place] [address] Care Team Providers Name Role Phone Faiza Truong D.O. Primary Care Provider [phone] Encounter Details Date Type Department Care Team Description 08/16/2021 Hospital Encounter Department of Dawna Camejo Neoplasm Of Laboratory Medicine Javid Tobias Bladder (HCC) in [facility] [address] [phone] [phone] Social History Tobacco Use Types Packs/Day Years [...] How often do you attend religious or zoroastrianism services? 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 atorvastatin (LIPITOR) 80 Take 1 tablet (80 mg 90 tablet 3 05/01/2021 05/01/2022 mg tabletIndications: total) by mouth at Hyperlipidemia bedtime. lisinopriL Take 1 tablet (20 mg 90 [...] in 5 min, call 911. albuterol sulfate (PROAIR Inhale 2 puffs 4 1 each 11 02/0210/22/2021 RESPICLICK) 90 (four) times a day mcg/actuation aerosol as needed (for powdr breath activated shortness of breath inhaler and wheezing- Use with spacer chamber.). clopidogreL (PLAVIX) 75 Take 1 tablet by 90 tablet 0 202110/26/2021 mg tablet mouth once daily isosorbide mononitrate [...] Disease Brandl, Simone C, AP RN, C.N.P. [address] [phone] (Wo rk) documented as of this encounter Procedures Procedure Name Priority Date/Time Associated Diagnosis Comme nts CYTOLOGY NON-FRAME STRIPPER Routine 08/16/2021 2:56 PM Malignant Neoplasm Results for this (SCHEDULED) CDT Of Bladder (HCC) procedure a re in the results section. documented in this encounter Results Cytology Non-FRAME STRIPPER (Scheduled) (08/16/2021 2:56 PM CDT) Component Value Ref Test Analysis Performed At [facility] Range Method Time Signature 08/17/2021 [facility] 1:43 PM CDT Fixative Yes 08/17/2021 [facility] 1:43 PM CDT Report Lucius Mancia MD 08/17/2021 [facility] electronically 1:43 PM CDT signed by I verify that I have examined all relevant slides/materials for the specimen(s) and rendered or confirmed the diagnosis. Gross Description Received 60 08/17/2021 [facility] cc's of 1:43 PM CDT anderson yellow alcohol fixed fluid. Collection voided 08/17/2021 [facility] Procedure 1:43 PM CDT Source A. Urine, 08/17/2021 [facility] voided 1:43 PM CDT Clinical History C67.9 08/17/2021 [facility] 1:43 PM CDT Interpretation A. Urine, voided (cytospin): Negative for High-Grade 08/17/2021 [facility] Urothelial Carcinoma. 1:43 PM CDT Specimen Anatomical Collection Method Collection Time Receive d Time (Source) Location / / Volume Laterality Varies 08/16/2021 2:56 PM CDT 10:25 AM CDT Narrative This result has an attachment that is no t available. Jatinder Camejo M.D. LAB SURG PATH ORDERABLES Performing Organization Address City/State/ZIP Code Phon e Number [facility]- [address] [place] [id number] [place] [address] [employer] [facility] [address] [place] [address] documented in this encounter Visit Diagnoses Diagnosis Malignant Neoplasm Of Bladder (HCC) documented in this encounter Additional Health Concerns Assessment Noted Time PHQ-9 Depression Total Score: 3 10/31/2020 10:00 AM CD T documented as of this encounter Care Teams Seconds Inspector Relationship Specialty Start Date End Date Faiza Truong D.O. PCP - General Internal Medicine 10/19/[address] [phone] documented as of this encounter
--- OUTSIDE RECORDS SUMMARY | 2022-03-29 07:44 | XMS_ITS | Encounter Summary ---
:1950 Author Organization [facility] Address [address] [place] [address] Care Team Providers Name Role Phone Faiza Truong D.O. Primary Care Provider [phone] Encounter Details Date Type Department Care Team Description 02/15/2021 Clinical Communication Department of Internal Nakia Dockery Medicine [place] D[place] . [place] [address] [place] [phone] Social History Tobacco Use Types Packs/Day Years [...] How often do you attend buddhist or worship services? 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 - 02/16/2021 2:14 PM CDT Called and spoke to pharmacy- I provided v/o for inhaler per directions in the EMR. They will fill rx and notify pt when it is ready. Telephone Encounter - Aurora Palomino - 02/16/2021 2:02 PM CDT Patient received last message. The pharmacy says they cannot fill the rx for him to pay out of pocket because they have not received it yet. Please call patient back. Ok to leave a detailed message. Telephone Encounter - Narda Tineo - 02/15/2021 4:14 PM CDT Reason for Communication: Patient called regarding the inhaler that was denied coverage from his insurance, he would like it sent to the pharmacy and will pay for it out of pocket Current Can Nursing/Provider leave a detailed message?: yes Did the patient refuse triage through Nurse line? (for symptom based concerns): na Action Needed: please advise when it has been sent over to [facility] in [place] Name of Medication (if relevant): albuterol sulfate (PROAIR RESPICLICK) 90 mcg/actuation aerosol powdr breath activated inhaler Please send all scheduling replies to scheduling pool. documented in this encounter Plan of Treatment Upcoming Encounters Date Type Specialty Care Team Description 04/12/2022 Office Visit Cardiovascular Disease Simone Gooden AP RN, C.N.P. [address] [phone] (Wo rk) documented as of this encounter Visit Diagnoses Not on filedocumented in this encounter Additional Health Concerns Assessment Noted Time PHQ-9 Depression Total Score: 3 10/31/2020 10:00 AM CD T documented as of this encounter Care Teams Room Service Waiter/Waitress Relationship Specialty Start Date End Date Faiza Truong D.O. PCP - General Internal Medicine 10/19/[address] [phone] documented as of this encounter
--- OUTSIDE RECORDS SUMMARY | 2022-03-29 07:44 | XMS_ITS | Encounter Summary ---
:1950 Author Organization [facility] Address [address] [place] [address] Care Team Providers Name Role Phone Faiza Truong D.O. Primary Care Provider [phone] Encounter Details Date Type Department Care Team Description 07/09/2021 Clinical Communication Department of Urology Jatinder Camejo in [place]ame Tirado M.D. [address] [place] [address] [place], [place] [phone] Social History Tobacco Use Types Packs/Day [...] How often do you attend restoration or uatsdin services? 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 - 07/09/2021 4:00 PM CST Patient is due to see Dr. Camejo end of July 2021 for a 6 month bladder cancer surveillance. Willforward to schedulers to contact patient, schedule appointment with Dr. Camejo and non charge rn cytology urine test to be done one week prior to Dr. Camejo appointment. ER Telephone Encounter - Narda Tineo - 07/09/2021 3:38 PM CST Reason for Communication: Patient called stating he is due to have a cytology and cystoscopy but no orders are available for scheduling Current Can Nursing/Provider leave a detailed message?: yes Did the patient refuse triage through Nurse line? (for symptom based concerns): na Action Needed: please place appropriate orders and inform the patient when the orders are ready for scheduling Name of Medication (if relevant): Please send all scheduling replies to scheduling pool. ER documented in this encounter Plan of Treatment Upcoming Encounters Date Type Specialty Care Team Description 04/12/2022 Office Visit Cardiovascular Disease Simone Gooden AP RN, C.N.P. [address], [place] [phone] (Wo rk) documented as of this encounter Visit Diagnoses Not on filedocumented in this encounter Additional Health Concerns Assessment Noted Time PHQ-9 Depression Total Score: 3 10/31/2020 10:00 AM CD T documented as of this encounter Care Teams Investigator Operator Relationship Specialty Start Date End Date Faiza Truong D.O. PCP - General Internal Medicine [address], [place] [address] [phone] (work) documented as of this encounter
--- OUTSIDE RECORDS SUMMARY | 2022-03-29 07:44 | XMS_ITS | Encounter Summary ---
:1950 Author Organization [facility] Address [address] [place] [address] Care Team Providers Name Role Phone Faiza Truong D.O. Primary Care Provider [phone] Encounter Details Date Type Department Care Team Description 02/16/2021 Orders Only Pharmacy Prior Auth [place] [phone] Yohannes Kendall [address] [place] [phone] (Wo rk) Social History Tobacco [...] How often do you attend rastafarian or zoroastrianism services? 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 [address] [phone] (Wo rk) documented as of this encounter Visit Diagnoses Not on filedocumented in this encounter Additional Health Concerns Assessment Noted Time PHQ-9 Depression Total Score: 3 10/31/2020 10:00 AM CD T documented as of this encounter Care Teams Noodle Catalyst Maker Relationship Specialty Start Date End Date Faiza Truong D.O. PCP - General Internal Medicine 10/19/[address] [phone] documented as of this encounter
--- OUTSIDE RECORDS SUMMARY | 2022-03-29 07:44 | XMS_ITS | Encounter Summary ---
:1950 Author Organization [facility] Address [address] [place] [address] Care Team Providers Name Role Phone Faiza Truong D.O. Primary Care Provider [phone] Reason for Visit Reason Comments Pain Outpatient (Routine) - Closed Specialty Diagnoses / Procedures Referred By Contact Refer red To Contact Orthopedic Surgery Diagnoses Pain Knee Left YAIR Truong [facility] Yohannes Kendall [address] [place] [address] Referral ID Status Reason Start Date Expiration Date Visits Requ ested Visits Authorized [id number] Closed 12/14/2021 12/14/2022 1 1 Encounter Details Date Type Department Care Team Description 12/14/2021 Comprehensive Visit Department of Torsten Handley, Pain Knee Left Orthopedic Surgery in [place], [place] [address] [place] [address] [address] [place] [phone] Social History Tobacco Use Types Packs/Day Years [...] How often do you attend episcopalian or islam services? 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 - 12/14/2021 2:30 PM CDT Seven Salazar is seen at the request of Dr. Truong for left knee pain. HISTORY OF PRESENT ILLNESS Patient is a 71-year-old male who has had left knee pain, throbbing, kind of constant achy pain evenwith sitting over the last week or 2. It has bothered him on and off before that. 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 There is a real tender spot there. No redness or warmth or swelling. Allergies, past medical/surgical history, and medications were reviewed as per chart. He is on Plavix. OBJECTIVE PHYSICAL EXAMINATION General : He is a well-developed, well-nourished, pleasant, 71-year-old male, no acute distress. Oriented x3. Mood and affect are normal. Vital Signs: As per nurse's note that were taken today. Extremities: Left knee has range of motion 0 to about 100 degrees. It is painful to palpation right over his patella, more kind of mid superior part, no redness or warmth. The ligaments are stable. He has some varus malalignment to the left knee. No specific joint line tenderness. Good range of motionof his left hip. Motor and sensation are intact in bilateral lower extremities. Bilateral feet are pink and warm. ASSESSMENT / PLAN Anterior knee pain, which is more of a prepatellar bursitis pain. I think probably a superficial nerve is probably very irritated. Nothing surgical. I would recommend ice or heat or Voltaren gel. Give it time to resolve. He does not have any arthritic symptoms right now, but he does have those at times. I will see him back if his whole knee pain worsens. documented in this encounter Plan of Treatment Upcoming Encounters Date Type Specialty Care Team Description 04/12/2022 Office Visit Cardiovascular Disease Simone Gooden AP RN, C.N.P. [address], [place] [phone] (Wo rk) documented as of this encounter Visit Diagnoses Diagnosis Pain Knee Left documented in this encounter Additional Health Concerns Assessment Noted Time PHQ-9 Depression Total Score: 3 10/31/2020 10:00 AM CD T documented as of this encounter Care Teams Commission Associate Relationship Specialty Start Date End Date Faiza Truong D.O. PCP - General Internal Medicine 10/19/[address] [phone] documented as of this encounter
--- OUTSIDE RECORDS SUMMARY | 2022-03-29 07:44 | XMS_ITS | Encounter Summary ---
:1950 Author Organization [facility] Address [address] [place] [address] Care Team Providers Name Role Phone Faiza Truong D.O. Primary Care Provider [phone] Encounter Details Date Type Department Care Team Description 08/23/2021 Clinical Communication Department of Urology Jatinder Camejo in [place]ame Tirado M.D. [address] [place] [address] [place], [place] [phone] Social History Tobacco Use Types Packs/Day [...] How often do you attend sikh or taoism services? 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 [address] [phone] (Wo rk) documented as of this encounter Visit Diagnoses Not on filedocumented in this encounter Additional Health Concerns Assessment Noted Time PHQ-9 Depression Total Score: 3 10/31/2020 10:00 AM CD T documented as of this encounter Care Teams Inoculator Relationship Specialty Start Date End Date Faiza Truong D.O. PCP - General Internal Medicine 10/19/[address] [phone] documented as of this encounter
--- OUTSIDE RECORDS SUMMARY | 2022-03-29 07:44 | XMS_ITS | Encounter Summary ---
:1950 Author Organization [facility] Address [address] [place] [address] Care Team Providers Name Role Phone Faiza Truong D.O. Primary Care Provider [phone] Reason for Visit Reason Comments Med Refill Encounter Details Date Type Department Care Team Description 04/24/2021 Refill Department of Internal Medicine Faiza Atkinson, Med Refill in [place], Mame ta D.O. [address] [place] [address] [place] [phone] (Wo rk) Social History Tobacco Use Types [...] week 04/16/2019 How often do you attend hindu or amish services? 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 PCP - General Internal Medicine 10/19/[address] [phone] documented as of this encounter
[2022-03-29 07:45] LABS: Slide Review Reflex No
--- OUTSIDE RECORDS SUMMARY | 2022-03-29 07:45 | XMS_ITS | Encounter Summary ---
:1950 Author Organization [facility] Address [address] [place] [address] Care Team Providers Name Role Phone Faiza Truong D.O. Primary Care Provider [phone] Reason for Referral Outpatient (Routine) - Closed Specialty Diagnoses / Procedures Referred By Contact Refer red To Contact Cardiovascular Disease Diagnoses Simone Gooden [facility] Procedures VOCATIONAL CHILDCARE TEACHER, C.N.P. [address] [address] Referral ID Status Reason Start Date Expiration Date Visits Requ ested Visits Authorized [id number] Closed 05/18/2020 05/18/2021 1 1 ACE TAPPER Reason for Visit Reason Comments Follow-up Outpatient (Routine) - Closed Specialty Diagnoses / Procedures Referred By Contact Refer red To Contact Cardiovascular Disease Diagnoses par Simone Gooden [facility] VOCATIONAL CHILDCARE TEACHER, C.N.P. [address] [address] Referral ID Status Reason Start Date Expiration Date Visits Requ ested Visits Authorized [id number] Closed 07/12/2019 07/11/2020 1 1 Encounter Details Date Type Department Care Team Description 05/18/2020 Office Visit Department of Simone Gooden Coronary Arter y Disease With Stable Angina (HCC) (Primary Dx); Cardiovascular Diseases CASEY Maguire Coro nary Stent Status Post; in [place]ame White gopal CatalanNTonja Hypertension Essential Primary; [address] Hyperlipidemia; [place] [phone] Abuse Tobacco Smoking [phone] [place] [address] Social History Tobacco Use [...] How often do you attend yarsanism or mosque services? Never 04/16/2019 Do you [...] at Date Recorded Male 06/28/2019 8:47 AM FURNACE TAPPER documented as of this encounter Last Filed Vital Signs Vital Sign Reading Time Taken Comments Blood Pressure 138/70 05/18/2020 8:17 AM FURNACE TAPPER Pulse 61 05/18/2020 8:17 AM FURNACE TAPPER Temperature - - Respiratory Rate - - Oxygen Saturation 96% 05/18/2020 8:17 AM FURNACE TAPPER Inhaled Oxygen Concentration - - Weight 99.4 kg (219 lb 2.2 oz) 05/18/2020 8:17 AM FURNACE TAPPER Height - - Body Mass Index 33.6 04/16/2019 9:50 AM FURNACE TAPPER documented in this encounter Progress Notes Simone Goodne, CASEY, C.N.P. - 05/18/2020 8:30 AM CST SUBJECTIVE CHIEF COMPLAINT/REASON FOR VISIT Follow-up heart disease HISTORY OF PRESENT ILLNESS Seven Garret Salazar is seen today for follow-up. We were planning on a six month follow-up from our last visit in July but the patient postpone this until today. He tells me that he has been feeling well and has not developed any new symptoms. He does have a history of chronic stable angina any reportsthat he has had at most, two episodes of angina in the last year. His last episode occurred about two and half months ago. He states that he gets his typical epigastric to substernal chest pressure that is typically fairly quickly relieved with a sublingual nitroglycerin. He continues to try to be active. He lifts light weights 2-3 days a week and he walks about 2-1/2 miles daily. He has not had any exertional chest pains. He also denies any shortness of breath, palpitations, PND, or orthopnea. He does tell me that he continues to smoke about 4-5 cigarettes per day. His heart history dates back to March of 2017. He had been following with his primary care physician for epigastric abdominal pain and as part of this evaluation he had an ECG and troponin level. These both came back abnormal and he was sent to the emergency room and subsequently transferred to [facility]. He had an elevated troponin and ST changes in the inferior leads on his ECG. A coronary angiogram revealed obstructive disease in the LAD, RCA, and circumflex arteries. He had PTCA and stenting to the RCA and circumflex on March 22, 2017 and then returned to the recyclable materials distributor on March 24, 2017 for a staged stenting in the LAD. He did well until July of 2017 when he presented with symptoms of unstable angina. He was diagnosedwith an NSTEMI at that time and a repeat coronary angiogram revealed diffuse coronary artery diseasebut no focal areas of stenosis for intervention. Shortly after his angiogram he tested positive for influenza A after becoming fever I will while in the hospital. He has been treated medically since. CURRENT MEDICATIONS Current Outpatient Medications: ??? albuterol sulfate 90 mcg/actuation aerosol powdr breath activated, Inhale 2 puffs 4 (four) timesa day as needed (for shortness of breath and wheezing- Use with spacer chamber.)., Disp: 1 each, Rfl: 11 ??? aspirin [address] tablet, Take 81 mg by mouth daily., Disp: , Rfl: ??? atorvastatin (LIPITOR) 80 mg tablet, Take 1 tablet (80 mg total) by mouth at bedtime., Disp: 90 tablet, Rfl: 3 ??? clopidogreL (PLAVIX) 75 mg tablet, Take 1 tablet (75 mg total) by mouth daily., Disp: 90 tablet,Rfl: 3 ??? isosorbide mononitrate (IMDUR) 30 mg 24 hr tablet, Take 1 tablet (30 mg total) by mouth every morning., Disp: 90 tablet, Rfl: 3 ??? lisinopriL (PRINIVIL,ZESTRIL) 20 mg tablet, TAKE 1 TABLET BY MOUTH ONCE DAILY IN THE MORNING, Disp: 90 tablet, Rfl: 3 ??? metoprolol succinate [...] Reactions ??? Bupropion Hcl Other (see comments) Eliceo listed no reactions. Suicidal thoughts. ??? Citalopram Diarrhea ??? Influenza Virus Vaccine Bivalent Other (see comments) Sickness, Ceranusha listed no reactions. ??? Pravastatin Myalgia and Other (see comments) MEDICAL HISTORY Past Medical History: Diagnosis Date ??? Abuse Tobacco Smoking 07/03/2015 ??? Anemia 03/31/2017 ??? Arthralgia 07/03/2015 ??? Arthritis Shoulder 07/03/2015 ??? Bronchitis Chronic (HCC) 07/03/2015 ??? Coronary Artery Disease (Unspecified) 06/12/2017 ??? Coronary Artery Disease [place] Vessel 06/12/2017 ??? Corticosteroid Treatment Half-Way Systemic [...] Reflux Esophageal 12/24/2011 ??? Seizure Partial Complex ([facility]) 03/23/2004 ??? 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 Stroke ([facility]) 03/23/2004 Past Surgical History: Procedure Laterality Date ??? [...] 1 of 3 OBJECTIVE VITAL SIGNS BP 138/70 (BP Location: Right arm, Patient Position: Sitting, Cuff Size: Large) Pulse 61 Wt 99.4kg SpO2 96% BMI 33.60 kg/m?? PHYSICAL EXAMINATION General: Well-developed male in no acute distress, alert and oriented x3. Vessels: No JVD. Heart: Regular rate and rhythm. Normal S1-S2. No murmurs. Lungs: Clear bilaterally. Abdomen: Nondistended. Extremities: Warm without pitting edema. DIAGNOSTICS Lab Results Component Value Date CREATININE 1.07 04/17/2020 BUN 21 04/17/2020 NA 140 04/17/2020 KSERUM 4.3 04/12/2019 KPLASMA 5.0 04/17/2020 CL 103 04/17/2020 CO2 27 03/04/2017 Lab Results Component Value Date WBC 6.5 04/17/2020 HGB 15.8 04/17/2020 HCT 47.2 04/17/2020 MCV 87.6 04/17/2020 PLT 251 04/17/2020 Lab Results Component Value Date CHOL 107 04/17/2020 Lab Results Component Value Date HDL 47 04/17/2020 Lab Results Component Value Date LDLCALC 50 04/17/2020 Lab Results Component Value Date TRIG 48 04/17/2020 Lab Results Component Value Date TTLCHOLHDLRT 2.08 04/26/2015 ASSESSMENT / PLAN #1 Coronary Artery Disease With Stable Angina (HCC) #2 Coronary Stent Status Post He has been doing fairly well with some infrequent episodes of angina without repeated exertional angina. He knows he can do a bit better with his diet but he feels that he is doing an excellent job with activity level/exercise and I would agree. We discussed the importance of tobacco cessation but heis a bit ambivalent to developing a plan. He continues on dual anti-platelet therapy and we are going to rediscuss this last fall but he postponed his visit until today. His DAPT risk score is three, particularly because he continues to smoke. His risk factors remains suboptimally managed. We again discussed the potential benefits verses risk of continuing with dual anti-platelet therapy. After discus sing these risks, it is his preference to continue with aspirin and clopidogrel. If at any point in time he has any bleeding problems, we will discontinue the clopidogrel otherwise we will rediscuss this again in follow-up next year. I strongly advised that he quit smoking in the meantime. His nitroglycerin was renewed and he was educated again on its use. If he has any unstable type symptoms he will present to the emergency room, if he has an increase in frequency of his angina, or if he begins to experience exertional angina, he is to let me know so that he has follow-up promptly. #3 Hypertension Essential Primary His blood pressure is borderline elevated today but he has seen better numbers outside of the clinicand he was in a few weeks ago and his blood pressure was in the normal range. This can be monitored,would recommend changes to his medication regimen if blood pressure is consistently greater than 130/80. #4 Hyperlipidemia I reviewed his lipid panel with him from last month and his numbers are excellent. He will continue with the 80 mg of atorvastatin and this was renewed for him today. #5 Abuse Tobacco Smoking We spent time discussing tobacco cessation and I counseled him on this. He is not ready to develop aquit plan but has gotten himself down to 4-5 cigarettes per day. He is in an ideal position to make a quit attempt. [id number] patient visit today 35 minutes. Plan for follow-up: Recommend follow-up by Simone Gooden APRN, C.N.P. in one year. ACE TAPPER documented in this encounter Plan of Treatment Upcoming Encounters Date Type Specialty Care Team Description 04/12/2022 Office Visit Cardiovascular Disease Simone Gooden AP RN, C.N.P. [address] [phone] (Wo rk) Scheduled Referrals Name Type Priority Associated Order Schedule Diagnoses Cardiovascular Disease Outpatient Referral Routine Expected: office visit (clinic) 2021 (Approximate), Expires: 05/18/2023 documented as of this encounter Visit Diagnoses Diagnosis Coronary Artery Disease With Stable Gladis na (HCC) - Primary Coronary Stent Status Post Hypertension Essential Primary Hyperlipidemia Abuse Tobacco Smoking documented in this encounter Additional Health Concerns Assessment Noted Time PHQ-9 Depression Total Score: 12 04/16/2019 9:45 AM CS T documented as of this encounter Care Teams Integration Manager Relationship Specialty Start Date End Date Faiza Truong D.O. PCP - General Internal Medicine 10/19/[address] [phone] documented as of this encounter
--- OUTSIDE RECORDS SUMMARY | 2022-03-29 07:45 | XMS_ITS | Encounter Summary ---
:[address] [facility] Address [address] [place] [address] Care Team Providers Name Role Phone Faiza Truong D.O. Primary Care Provider [phone] Reason for Visit Reason Comments Med Refill Encounter Details Date Type Department Care Team Description 08/07/2020 Refill Department of Cardiovascular Hel Mukul de jesus D.O. Med Refill Diseases in [place], [place] [address] [place] [address] [place] [address] [phone] Social History Tobacco Use Types Packs/Day Years [...] week 04/16/2019 How often do you attend pentecostalism or moravian services? Never 04/16/2019 Do you belong to any clubs or organizations such as pentecostalism N o 04/16/2019 groups, unions, fraternal or [...] at Date Recorded Male 06/28/2019 8:47 AM CITY SECRETARY documented as of this encounter Plan of Treatment Upcoming Encounters Date Type Specialty Care Team Description 04/12/2022 Office Visit Cardiovascular Disease Simone Gooden AP RN, C.N.P. [address] [phone] (Wo rk) documented as of this encounter Visit Diagnoses Not on filedocumented in this encounter Additional Health Concerns Assessment Noted Time PHQ-9 Depression Total Score: 12 04/16/2019 9:45 AM CS T documented as of this encounter Care Teams Senior Software Developer Relationship Specialty Start Date End Date Faiza Truong D.O. PCP - General Internal Medicine 10/19/192[address] [address] documented as of this encounter
--- OUTSIDE RECORDS SUMMARY | 2022-03-29 07:45 | XMS_ITS | Encounter Summary ---
:1950 Author Organization [facility] Address [address] [place] [address] Care Team Providers Name Role Phone Faiza Truong D.O. Primary Care Provider [phone] Encounter Details Date Type Department Care Team Description 01/22/2021 Hospital Encounter Department of Dawna Camejo Neoplasm Of Laboratory Medicine Javid Tobias Bladder (HCC) in [facility] [address] [phone] [phone] Social History Tobacco Use Types Packs/Day Years [...] week 04/16/2019 How often do you attend jainism or church services? Never 04/16/2019 Do you belong to any clubs or organizations such as jainism N o 04/16/2019 groups, unions, fraternal or [...] at Date Recorded Male 06/28/2019 8:47 AM PLATFORM MAN documented as of this encounter Medications at Time of Discharge Medication Sig Dispensed Refills Start Date End Date aspirin [address] tablet Take 81 mg by mouth 0 daily. albuterol sulfate 90 Inhale 2 puffs 4 1 each 11 7 02/13/2021 mcg/actuation aerosol (four) times a day as powdr breath activated needed (for shortness of breath and wheezing- Use with spacer chamber.). atorvastatin (LIPITOR) Take 1 tablet (80 mg 90 tablet 3 05/01/2021 80 mg tablet total) by mouth at bedtime. clopidogreL (PLAVIX) 75 Take 1 tablet by 90 tablet 3 202008/01/2021 mg tablet mouth once daily isosorbide mononitrate Take 1 tablet (30 mg 90 tablet 3 02/13/2021 (IMDUR) 30 mg 24 hr total) by mouth every tabletIndications: morning. 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 metoprolol succinate Take 1 tablet (25 mg 90 tablet 3 04/2104/25/2021 (TOPROL-XL) 25 mg 24 hr total) by mouth tabletIndications: daily. 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 [address], [place] [phone] (Wo rk) documented as of this encounter Procedures Procedure Name Priority Date/Time Associated Diagnosis Comme nts CYTOLOGY NON-TISSUE RECOVERY TECHNICIAN Routine 01/22/2021 10:50 AM Malignant Neoplas m Results for this (SCHEDULED) CDT Of Bladder (HCC) procedure a re in the results section. documented in this encounter Results Cytology Non-TISSUE RECOVERY TECHNICIAN (Scheduled) (01/22/2021 10:50 AM CDT) Component Value Ref Test Analysis Performed At [facility] gist Range Method Time Signature 2021 [facility] 9:28 AM CDT Fixative 50% reagent 2021 [facility] alcohol 9:28 AM CDT Report Miroslava LEXY Weems. Ch.B. 2021 [facility] electronically 9:28 AM CDT signed by I verify that I have examined all relevant slides/materials for the specimen(s) and rendered or confirmed the diagnosis. Gross Description Received 90 2021 [facility] ml of pale 9:28 AM CDT yellow alcohol fixed fluid. Collection urine void 2021 [facility] Procedure 9:28 AM CDT Source A. Urine, 2021 [facility] Clean Catch, 9:28 AM CDT voided Clinical History c67.9 2021 [facility] 9:28 AM CDT Interpretation A. Urine, Clean Catch, voided (cytospin): Negative f or 2021 [facility] High-Grade Urothelial Carcinoma. 9:28 AM CDT Specimen Anatomical Collection Method Collection Time Receive d Time (Source) Location / / Volume Laterality Varies (Urine, 01/22/2021 10:50 7:18 Clean Catch) AM CDT AM CDT Narrative This result has an attachment that is no t available. Jatinder Camejo M.D. LAB SURG PATH ORDERABLES Performing Organization Address City/State/ZIP Code Phon e Number [facility] [place] [address] [place] [address] [facility] Cytology [facility] documented in this encounter Visit Diagnoses Diagnosis Malignant Neoplasm Of Bladder (HCC) documented in this encounter Additional Health Concerns Assessment Noted Time PHQ-9 Depression Total Score: 3 10/31/2020 10:00 AM CD T documented as of this encounter Care Teams Artist'S Model Relationship Specialty Start Date End Date Faiza Truong D.O. PCP - General Internal Medicine 10/19/[address] [phone] documented as of this encounter
--- OUTSIDE RECORDS SUMMARY | 2022-03-29 07:45 | XMS_ITS | Encounter Summary ---
:1950 Author Organization [facility] Address [address] [place] [address] Care Team Providers Name Role Phone Faiza Truong D.O. Primary Care Provider [phone] Reason for Visit Reason Comments Rx Prior Authorization PA DENIED PROAIR RESPICLICK Encounter Details Date Type Department Care Team Description 02/14/2021 Clinical Communication Department of [facility] Internal Medicine Faiza rea Authorizat ion (PA in [place] DBhaveshOBhavesh DENIED PROAIR [place] [address] ) [address] [place] [phone] Social History Tobacco Use Types Packs/Day [...] week 04/16/2019 How often do you attend jain or episcopalian services? 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 The patient's health insurer has denied prior authorization for PROAIR RESPICLICK . A quick view of the denial reason is in this communication message. To view the electronic denial message: 1. Go to Snapshot 2. Go to the purple Medications box 3. Click on the blue Prior Authorizations link 4. Under Denied, click on the blue medication link to open and view the attachment. As the prescriber, your options are: ??? Appeal the decision by contacting the insurer directly. We have not received a denial letter containing appeal information at this time. ??? Write a new Rx for an alternative medication therapy. ??? Release the Rx to the pharmacy so the patient can pay out of pocket if they desire. To Release Rx: Open this encounter, go to Meds & Orders, click on the medication, and click the blue ???Release Rx?? button. PLEASE NOTE: If the ???Release Rx?? button is not visible, the Rx has already been released to the pharmacy. If you have questions, please reply via QuickNote to Wayne MATUTE. Thank you, The OPP[facility] Team documented in this encounter Plan of Treatment Upcoming Encounters Date Type Specialty Care Team Description 04/12/2022 Office Visit Cardiovascular Disease Simone Gooden AP RN, C.N.P. [address] [phone] (Wo rk) documented as of this encounter Visit Diagnoses Not on filedocumented in this encounter Additional Health Concerns Assessment Noted Time PHQ-9 Depression Total Score: 3 10/31/2020 10:00 AM CD T documented as of this encounter Care Teams Typo Machine Operator Relationship Specialty Start Date End Date Bakkali-Derksen, Salwa, D.O. PCP - General Internal Medicine 10/19/[address] [phone] documented as of this encounter
--- OUTSIDE RECORDS SUMMARY | 2022-03-29 07:45 | XMS_ITS | Encounter Summary ---
:1950 Author Organization [facility] Address [address] [place] [address] Care Team Providers Name Role Phone Faiza Truong D.O. Primary Care Provider [phone] Reason for Visit Reason Comments Bladder Cancer no concerns today with any urination Follow-up 6 month Outpatient (Routine) - Closed Specialty Diagnoses / Procedures Referred By Contact Refer red To Contact Diagnoses Malignant Neoplasm Of Bladder (HCC) Jatinder Camejo M.D. [facility] Procedures Cystoscopy (specific provider) [address] [place] [phone] Referral ID Status Reason Start Date Expiration Date Visits Requ ested Visits Authorized [id number] Closed 07/20/2020 07/20/2021 1 1 Encounter Details Date Type Department Care Team Description 01/29/2021 Office Visit Department of Urology Jatinder Camejo Pos tprocedural Bulbous Urethral Stricture Male (Primary Dx); in Javid White Malignant Neoplasm Of Bladder (HCC) [place] [address] [place], [place] [phone] Social History Tobacco Use Types Packs/Day Years [...] How often do you attend denominational or buddhism services? 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 - 01/29/2021 9:15 AM CDT CHIEF COMPLAINT/REASON FOR VISIT Cystoscopy. ?? [...] for malignancy, Mitomycin C given. Last cystoscopy: ?July 20, 2020 which was negative. ?? Urine cytology dated?? 2020 which was negative. ? INSTRUMENT: ??Flexible cystourethroscope. ANESTHESIA: ??2% aqueous lidocaine jelly introduced into the urethra. ?? PROCEDURE: ??The patient was placed in a supine position. ??The genitalia were prepped and draped sterilely. ??The urethra was anesthetized with 2% aqueous lidocaine jelly. ??The cystoscope was advanced into the urethra. ?? FINDINGS: ?? Meatus: ??Normal. ?? Urethra: ??notable for urethral stricture not requiring dilation,??stricture calibrate to approximately 14-16??Romanian.?This was dilated by passage of the cystoscope. Prostate: Length: ??3 cm??centimeters. ?Lateral Lobes: ??Mild hypertrophy with no visual obstruction. ??Small benign-appearing polyp in the prostatic urethra, 6 o'clock position, immediately proximal to the Veru.?Middle Lobe: ?absent. ?? Bladder Neck: ??Normal. ?Residual [...] negative. 2. Bulbous urethral stricture, postprocedural, stable? Plan: ?? return to clinic for bladder cancer surveillance to include urine cytology and cystoscopy in 6 months. Electronically signed by: Jatinder Camejo M.D. 01/29/21 9:18 AM CDT documented in this encounter Plan of Treatment Upcoming Encounters Date Type Specialty Care Team Description 04/12/2022 Office Visit Cardiovascular Disease Simone Gooden AP RN, C.N.P. [address] [phone] (Wo rk) documented as of this encounter Visit Diagnoses Diagnosis Postprocedural Bulbous Urethral Strictur e Male - Primary Malignant Neoplasm Of Bladder (HCC) documented in this encounter Additional Health Concerns Assessment Noted Time PHQ-9 Depression Total Score: 3 10/31/2020 10:00 AM CD T documented as of this encounter Care Teams [place] Gold Attendant Relationship Specialty Start Date End Date Faiza Truong D.O. PCP - General Internal Medicine 10/19/[address] [phone] documented as of this encounter
--- OUTSIDE RECORDS SUMMARY | 2022-03-29 07:45 | XMS_ITS | Encounter Summary ---
:1950 Author Organization [facility] Address [address] [place] [address] Care Team Providers Name Role Phone Faiza Truong D.O. Primary Care Provider [phone] Encounter Details Date Type Department Care Team Description 07/06/2020 Hospital Encounter Department of Dawna Camejo Neoplasm Of Laboratory Medicine Javid Tobias Bladder (HCC) in [facility] [address] [phone] Social History Tobacco Use Types Packs/Day Years [...] week 04/16/2019 How often do you attend latter-day or shinto services? Never 04/16/2019 Do you belong to any clubs or organizations such as latter-day N o 04/16/2019 groups, unions, fraternal or [...] at Date Recorded Male 06/28/2019 8:47 AM ACCOUNT COORDINATOR documented as of this encounter Medications at [...] bedtime. clopidogreL (PLAVIX) 75 Take 1 tablet (75 mg 90 tablet 3 08/09/2020 mg tablet total) by mouth daily. isosorbide mononitrate Take 1 tablet (30 mg 90 tablet 3 02/13/2021 (IMDUR) 30 mg 24 hr total) by mouth every tabletIndications: morning. Coronary Stent Status Post, Hypertensive Heart And Chronic Kidney Disease Without Heart Failure And With Stage 2 (Mild) Chronic Kidney Disease lisinopriL TAKE 1 TABLET BY 90 tablet 3 07/08/2019 08/04/19 21 (PRINIVIL,ZESTRIL) 20 mg MOUTH ONCE DAILY IN tablet THE MORNING metoprolol succinate Take 1 tablet (25 mg [...] Simone Gooden, KELLY RN, C.N.P. [address], [place] [phone] (Wo rk) documented as of this encounter Procedures Procedure Name Priority Date/Time Associated Diagnosis Comme nts CYTOLOGY NON-STREETCAR REPAIRER HELPER Routine 07/06/2020 10:30 AM Malignant Neoplas m Results for this (SCHEDULED) ACCOUNT COORDINATOR Of Bladder (HCC) procedure a re in the results section. documented in this encounter Results Cytology Non-STREETCAR REPAIRER HELPER (Scheduled) (07/06/2020 10:30 AM ACCOUNT COORDINATOR) Component Value Ref Test Analysis Performed At [facility] gist Range Method Time Signature 07/11/2020 [facility] 1:52 PM ACCOUNT COORDINATOR Fixative 50% reagent 07/11/2020 [facility] alcohol 1:52 PM ACCOUNT COORDINATOR Report Azeb Gustafson MD 07/11/2020 [facility] electronically I verify that I have examined all relevant slides/ma terials 1:52 PM ACCOUNT COORDINATOR signed by for the specimen(s) and rendered or confirmed the diagnosis. Gross Description 100 ml of 07/11/2020 [facility] clear, anderson 1:52 PM ACCOUNT COORDINATOR yellow alcohol fixed fluid received. Collection urine, clean 07/11/2020 [facility] Procedure catch 1:52 PM ACCOUNT COORDINATOR Source A. Urine, 07/11/2020 [facility] Clean Catch, 1:52 PM ACCOUNT COORDINATOR voided Clinical History Malignant 07/11/2020 [facility] Neoplasm Of 1:52 PM ACCOUNT COORDINATOR Bladder Interpretation A. 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 1:52 PM ACCOUNT COORDINATOR Specimen Anatomical Collection Method Collection Time Receive d Time (Source) Location / / Volume Laterality Varies (Urine, 07/06/2020 10:30 6:42 Clean Catch) AM ACCOUNT COORDINATOR AM ACCOUNT COORDINATOR Narrative This result has an attachment that is no t available. Jatinder Camejo M.D. LAB SURG PATH ORDERABLES Performing Organization Address City/State/ZIP Code Phon e Number [facility] [address] [place] [address] CYTOLOGY [facility] [place] [id number] [place] [address] [place] [address] documented in this encounter Visit Diagnoses Diagnosis Malignant Neoplasm Of Bladder (HCC) documented in this encounter Additional Health Concerns Assessment Noted Time PHQ-9 Depression Total Score: 12 04/16/2019 9:45 AM CS T documented as of this encounter Care Teams Braider Tender Relationship Specialty Start Date End Date Faiza Truong D.O. PCP - General Internal Medicine 10/19/[address] [phone] documented as of this encounter
--- OUTSIDE RECORDS SUMMARY | 2022-03-29 07:45 | XMS_ITS | Encounter Summary ---
:1950 Author Organization [facility] Address [address] [place] [address] Care Team Providers Name Role Phone Faiza Truong D.O. Primary Care Provider [phone] Reason for Visit Reason Comments Follow-up stress test Encounter Details Date Type Department Care Team Description 08/28/2020 Office Visit Department of Simone Gooden, Coronary Ar precious Disease With Stable Angina (HCC) (Primary Dx); Cardiovascular Diseases SURFACE WATER MANAGER, C. N.P. Diarrhea in [facility] trav [address] [place] [phone] Social History Tobacco Use Types Packs/Day [...] How often do you attend sikh or restorationism services? 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 - 08/28/2020 8:30 AM CDT SUBJECTIVE CHIEF COMPLAINT/REASON FOR VISIT ER follow-up chest pain HISTORY OF PRESENT ILLNESS Seven Salazar is seen today for an ER follow-up. I last saw him on May 18, 2020 and he was doing fairly well at that time. He does have known coronary artery disease and chronic stable angina for which he will occasionally utilize some sublingual nitroglycerin. He is also on long-acting isosorbide. His heart history dates back to March of 2017 when he was seen for epigastric abdominal pain and had an abnormal ECG and troponin in the outpatient setting. He was transferred to the emergency room in [facility] where he had ST changes in the inferior leads and a coronary angiogram revealed obstructive disease in the LAD, RCA, and circumflex arteries. 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 He presented again in July of 2017 with symptoms of unstable angina and was diagnosed with an NSTEMI and a repeat coronary angiogram revealed diffuse coronary artery disease but no focal areas of stenosis for intervention. More recently, he developed diarrhea. Also associated with his diarrhea was a feeling of diaphoresisand some chest discomfort. Due to the concern that he may have recurrent issues with his coronary arteries he went to the emergency room August 23, 2020. His evaluation was unremarkable for acute coronary syndrome with normal cardiac troponin x2, normal BNP, and an unchanged ECG along with stable basiclabs otherwise. The emergency room physician spoke with the television technician on-call at [facility] who felt that he could be best managed as an outpatient. He was set up for a stress test and ishere today to follow-up. He reports that he has not had any further episodes since dismissal from the emergency room. He denies any chest pains, palpitations, or new exertional dyspnea. He also has not had any further episodesof lightheadedness, diaphoresis, or diarrhea. CURRENT MEDICATIONS Current Outpatient Medications: ??? albuterol [...] tablet, Rfl: 3 ??? isosorbide mononitrate (IMDUR) 30 mg [...] Reactions ??? Bupropion Hcl Other (see comments) Cerner listed no reactions. Suicidal thoughts. ??? Citalopram [...] Disease (Unspecified) 06/12/2017 ??? Coronary Artery Disease [place] Vessel 06/12/2017 ??? Corticosteroid Treatment Atg Java Developer Systemic 03/14/2017 ??? Cyst Renal 02/05/2016 ??? [...] Stricture Urethra 02/05/2016 ??? Stroke (HCC) 03/23/2004 Past Surgical History: Procedure Laterality Date [...] 1 of 3 OBJECTIVE VITAL SIGNS BP 120/58 (BP Location: Left arm, Patient Position: Sitting, Cuff Size: Large) Pulse 66 Wt 98 kg SpO2 96% BMI 33.13 kg/m?? PHYSICAL EXAMINATION General: Well-developed male in no acute distress, alert and oriented x3. Vessels: No JVD. Heart: Regular rate and rhythm. Normal S1-S2. No murmurs. Lungs: Clear bilaterally. Abdomen: Nondistended. Extremities: No pitting edema. DIAGNOSTICS Labs as outlined in the HPI from [place] emergency room visit August 23, 2020 Nuclear stress test at [facility] August 25, 2020 FINDINGS: ??There is good uptake of activity by the left ventricle. ??No left ventricular enlargement is noted. ?? There is mild soft tissue attenuation. ??No other significant fixed or reversible defects are identified. ? 1. ??There is no evidence of significant myocardial ischemia or infarction. 2. ??Normal left ventricular ejection fraction of approximately 65 percent. ASSESSMENT / PLAN #1 Coronary Artery Disease With Stable Angina (HCC) #2 Diarrhea He had a bout of diarrhea with associated symptoms that included chest discomfort and diaphoresis. His evaluation for acute coronary syndrome in the ER came back negative, and a nuclear stress test came back negative for cardiac ischemia or infarction. It would seem unlikely that his symptoms were related to a cardiac event at this point in time. He is back to being active again and has not had any recurrent symptoms. At this point in time I think wecan continue with his medical management and I would ask him to follow up as previously planned (May 2021). He can certainly return sooner if any new symptoms develop. Patient visit today with a majority of the time spent in [id number] chart review of his ER visit and subsequent stress testin minutes documented in this encounter Plan of Treatment Upcoming Encounters Date Type Specialty Care Team Description 04/12/2022 Office Visit Cardiovascular Disease Simone Gooden, KELLY RN, C.N.P. [address] [phone] (Wo rk) documented as of this encounter Visit Diagnoses Diagnosis Coronary Artery Disease With Stable Gladis na (HCC) - Primary Diarrhea documented in this encounter Additional Health Concerns Assessment Noted Time PHQ-9 Depression Total Score: 12 04/16/2019 9:45 AM CS T documented as of this encounter Care Teams Grades 7 8 Tutor Relationship Specialty Start Date End Date Faiza Truong D.O. PCP - General Internal Medicine 10/19/[address] [phone] documented as of this encounter
--- OUTSIDE RECORDS SUMMARY | 2022-03-29 07:45 | XMS_ITS | Encounter Summary ---
:1950 Author Organization [facility] Address [address] [place] [address] Care Team Providers Name Role Phone Faiza Truong D.O. Primary Care Provider [phone] Reason for Referral Outpatient (Routine) - Closed Specialty Diagnoses / Procedures Referred By Contact Refer kendall To Contact [facility] Internal YAIR Truong [facility] Medicine Yohannes Kendall [address] [place] [address] Referral ID Status Reason Start Date Expiration Date Visits Requ ested Visits Authorized [id number] Closed 10/31/2020 10/31/2021 1 1 Reason for Visit Reason Comments Annual Exam 70 years old Appointment Request (Routine) - Closed Specialty Diagnoses / Procedures Referred By Contact Refer kendall To Contact [facility] Internal Medicine Referral ID Status Reason Start Date Expiration Date Visits Requ ested Visits Authorized [id number] Closed 09/29/2020 09/29/2021 1 1 Encounter Details Date Type Department Care Team Description 10/31/2020 Comprehensive Visit Department of Carol Lehman ing Examination Prostate Cancer (Primary Dx); Internal Medicine in [place], Abuse T obacco Smoking; [place], [place] D.O. Hypertension Essential Primary; [address] Coronary Stent Status Post; [facility] Hypertensive Heart And Chronic Kidney Di sease Without Heart Failure And With Stage 2 (Mild) Chronic Kidney Disease; [id number] JAYNA Tirado Screening Examination Diabet es Mellitus; [phone] [id number] Bronchitis Chronic (HCC); [phone] Coronary Artery Disease With Stable Angina (HCC); (Work) Myalgia Social History Tobacco Use Types Packs/Day Years [...] How often do you attend scientologist or yazidism services? 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 - 10/31/2020 11:00 AM CDT Images from the original note were not included. Patient Education Advanced Leg Exercises Do these exercises holding on to a counter top, table or back of a chair. ?? Repeat each exercise 10 to 20 times. ?? Do each exercise slow and controlled. ?? Do each exercise with both legs. Holding a stable object, rise up on your toes. Now rock back on your heels. Standing straight, move your leg back as far as possible. Bring your leg back to starting position. Standing straight, slowly bring one leg out to the side. Bring your leg slowly back to center. Standing straight, march in place lifting your knees as high as you can. With your feet shoulder-width apart, bend your knees to a comfortable position. Return to start. Straighten your leg and try to hold it for two seconds. Use 1 to 5 pounds on your ankle. Repeat withyour other leg. This material is for your education and information only. This content does not replace medical advice, diagnosis or treatment. New medical research may change this information. If you have questions about a medical condition, always talk with your health care provider. ? 2016 [employer] ([employer]). All rights reserved. [id number] documented in this encounter H&P Notes Faiza Truong D.O. - 10/31/2020 11:00 AM CDT SUBJECTIVE INTERNAL MEDICINE ROUTINE ANNUAL PHYSICAL EXAMINATION DATE OF EXAMINATION 10/31/2020 LOCATION OF EXAMINATION [facility] CHIEF COMPLAINT/REASON FOR VISIT Annual examination. HISTORY OF PRESENT ILLNESS Seven Salazar presents today for routine annual physical examination. Seven Salazar is a 70 y.o. male with past medical history significant for coronary artery disease with stable angina, history of coronary artery stenting, hypertension, CKD stage 2, impaired fasting glucose, and abuse tobacco smoking who presents today for a complete physical examination. I last saw the patient on 04/21/2020. 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 He is on his feet all day. At the end of the day he finds that he has increased leg achiness and they feel very heavy.The patient does not have any numbness or tingling in the feet. No radiculopathy symptoms or low back pain. We discussed that this is likely sec ondary to deconditioning and not working those muscles specifically. Seven mentions mainly his quads and difficulties at the end the day. The patient and I discussed multiple stretches that he can do to work on strengthening his legs. We reviewed his preventive health maintenance, and updated screening tests. We also, conducted rectal exam with no significant findings. There are no further concerns at this time. Advanced Care plan on file : not on file. History of Diabetes: none. History of Hypertension: yes, blood pressure today of 140/72 mmHg. History of Hyperlipidemia: on Lipitor 80 mg by mouth daily. History of depression : yes; doing well off of medication. History of Tobacco use : current every day smoker. Last Colonoscopy : Due for repeat in 2021. Prostate Cancer screening history: PSA within normal limits on 04/17/2020. Special diets : none. Exercise : none. Home safety concerns : none. Sexual Health concerns : none. IMMUNIZATIONS Reviewed and updated on medication list per EMR. Social History Socioeconomic History ??? Marital status: Spouse name: None ??? Number of children: None ??? Years of education: None ??? Highest education level: Bachelor's degree (e.g., BA, AB, BS) Occupational History ??? None Tobacco Use ??? Smoking status: Current Some Day Smoker Packs/day: 0.20 Types: Cigarettes ??? Smokeless tobacco: Never Used ??? Tobacco comment: 4 cigarettes per day Substance and Sexual Activity ??? Alcohol use: No ??? Drug use: No ??? Sexual activity: Defer Other Topics Concern ??? None Social History Narrative Caffeine: 2 cups coffee daily Social Determinants of Health Financial Resource Strain: ??? Difficulty of Paying Living Expenses: Food Insecurity: ??? Worried About Running Out of Food in the Last Year: ??? Ran Out of Food in the Last Year: Transportation Needs: ??? Lack of Transportation (Medical): ??? Lack of Transportation (Non-Medical): Physical Activity: ??? Days of Exercise per Week: ??? Minutes of Exercise per Session: Stress: ??? Feeling of Stress : Social Connections: ??? Frequency of Communication with Friends and Family: ??? Frequency of Social Gatherings with Friends and Family: ??? Attends Orthodoxy Services: ??? Active Member of Clubs or Organizations: ??? Attends Club or Organization Meetings: ??? Marital Status: Intimate Partner Violence: ??? Fear of Current or Ex-Partner: ??? Emotionally Abused: ??? Physically Abused: ??? Sexually Abused: Family History Problem Relation Age of Onset ??? Hypertension Mother ??? Cataracts Mother ??? Glaucoma Mother ??? Hypertension Brother ??? Asthma Brother ??? Coronary artery disease Brother ??? Heart attack Brother ??? Hearing loss Father ??? Parkinsons disease Father ??? Pancreatic cancer Father ??? Liver cancer Father ??? Lung cancer Sister Past Medical History: Diagnosis Date ??? Abuse Tobacco Smoking 07/03/2015 ??? Anemia 03/31/2017 ??? Arthralgia 07/03/2015 ??? Arthritis Shoulder 07/03/2015 ??? Bronchitis Chronic (HCC) 07/03/2015 ??? Coronary Artery Disease (Unspecified) 06/12/2017 ??? Coronary Artery Disease [place] Vessel 06/12/2017 ??? 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 Cyst Renal 02/05/2016 ??? 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 Depression Anxiety 03/25/2016 ??? DJD (OA) Knee Ugy 09/30/2013 ??? Elevated Sedimentation Rate 02/15/2010 ??? [...] Reflux Esophageal 12/24/2011 ??? Seizure Partial Complex ([facility]) 03/23/2004 ??? 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 Stroke ([facility]) 03/23/2004 Current Outpatient Medications on File Prior to Visit Medication Sig Dispense Refill ??? albuterol sulfate 90 mcg/actuation aerosol powdr breath activated Inhale 2 puffs 4 (four) times a day as needed (for shortness of breath and wheezing- Use with spacer chamber.). 1 each ??? aspirin [address] tablet Take 81 mg by mouth daily. ??? atorvastatin (LIPITOR) 80 mg tablet Take 1 tablet (80 mg total) by mouth at bedtime. 90 tablet 3 ??? clopidogreL (PLAVIX) 75 mg tablet Take 1 tablet by mouth once daily 90 tablet 3 ??? isosorbide mononitrate (IMDUR) 30 mg 24 hr tablet Take 1 tablet (30 mg total) by mouth every morning. 90 tablet 3 ??? lisinopriL (PRINIVIL,ZESTRIL) 20 mg tablet Take 1 tablet (20 mg total) by mouth every morning. 90 tablet 3 ??? metoprolol succinate (TOPROL-XL) 25 mg 24 hr tablet Take 1 tablet (25 mg total) by mouth daily. 90 tablet 3 ??? nitroglycerin (NITROSTAT) 0.[address] 1 tablet (0.4 mg total) under the tongue every 5 (five) minutes as needed for chest pain. Place 1 tab under the tongue at first sign of chest pain. Repeat dose every 5 min up to 2 additional doses if chest pain continues. If no relief in 5 min, [id number]. 25 tablet 11 No current facility-administered medications on file prior to visit. Allergies Allergen Reactions ??? Bupropion Hcl Other (see comments) Otilioner listed no reactions. Suicidal thoughts. ??? Citalopram Diarrhea ??? Influenza Virus Vaccine Bivalent Other (see comments) Sickness, Cerner listed no reactions. ??? Pravastatin Myalgia and Other (see comments) REVIEW OF SYSTEMS: GENERAL: No fever, chills, or fatigue ENDOCRINE: No weight loss or weight gain. No heat or cold intolerances. No increased thirst. HEENT: No problems with head, eyes, ears, nose, throat. No colds. No visual changes. No troubles hearing. No troubles swallowing. RESPIRATORY: No cough or shortness of breath HEART: No fast or slow heart rate. No chest pain. MUSCULOSKELETAL: No aches or pains. No numbness or tingling. ABDOMEN: No abdominal pain. GI: No nausea, vomiting, diarrhea, or constipation. No change in bowel movements. No black or tarry stools or blood in the stool. : No increased frequency or urgency. No hematuria. PSYCH: No anxiety or depression. No suicidal ideation. SKIN: No rashes or lesions. NEURO: Denies numbness or tingling of extremities. Denies migraines or history of TIA or CVA. OBJECTIVE PHYSICAL EXAMINATION Blood pressure 140/72, pulse 70, temperature 36.8 ??C, temperature source Temporal, height 172.5 cm,weight 100 kg, SpO2 96 %. Body mass index is 33.64 kg/m??. GENERAL: Healthy, alert, no distress. EYES: Eyelids, conjunctiva, and sclera were normal. Pupils were normal. Cornea, iris, and lens were normal bilaterally. HEAD, EARS, NOSE, MOUTH, AND THROAT: Head and face were normal. Hearing was normal to voice and the ears were normal to external exam. NECK: Neck appearance was normal. There were no neck masses and the thyroid was not enlarged. Trachea midline. RESPIRATORY: Breathing pattern was normal and the chest moved symmetrically. Lung sounds were normalwithout crackles, wheezes or rales. CARDIOVASCULAR: Heart rate and rhythm were normal. S1 and S2 were normal and there were no extra sounds or murmurs. Peripheral pulses in arms and legs were normal. Jugular venous pressure was normal. There was no peripheral edema. GASTROINTESTINAL: The abdomen was normal in contour. Bowel sounds were present. Percussion detected no organ enlargement or tenderness. Palpation detected no tenderness, mass, or enlarged organs. RECTAL: Good sphincter tone without palpable masses. Prostate normal in size without induration or nodules. MUSCULOSKELETAL: Skeletal configuration was normal and muscle mass was normal for age. Joint appearance was overall normal. LYMPHATIC: No occipital, cervical, submandibular, or supraclavicular adenopathy SKIN/HAIR/NAILS: Skin color was normal. There were no skin lesions. Hair and nails were normal. NEUROLOGIC: The patient was alert and oriented to person, place, time, and circumstance. Speech was normal. Cranial nerves were normal. Motor strength was normal for age. The patient was normally coordinated. PSYCHIATRIC: Mood and affect were normal and the patient had normal recent and remote memory. The patient's judgment and insight were normal. ASSESSMENT / PLAN #1 General Medical Examination. #2 Screening Examination Prostate Cancer #3 Screening Examination Diabetes Mellitus PLAN: The following labs are ordered today: - PSA (Prostate-Specific Antigen) Screen; Future; Expected date: 05/02/2021 - Glucose, Fasting; Future; Expected date: 05/02/2021 The patient will be notified of the results when available. Immunizations are reviewed. Tdap updatedtoday [10/31/2020]. Encouraged annual influenza vaccinations. Colonoscopy has been reviewed and is up to date at this time; due for repeat in 2021. Prostate cancer screening guidelines were also discussed and after an informed decision making conversation the patient has elected to perform ANALI, and PSA testing at this time. Age appropriate screening and preventative care have been addressed today. Patient has been advised to follow a balanced diet with reduction in cholesterol, and reasonable portion sizes. They have been advised to undertake routine aerobic activity and they were counseled on healthy weight maintenance. They will follow up for annual physical again in one year. #4 Coronary Artery Disease With Stable Angina (HCC) #5 Coronary Stent Status Post #6 Hypertensive Heart And Chronic Kidney Disease Without Heart Failure And With Stage 2 (Mild) Chronic Kidney Disease PLAN: Stable. No signs of volume overload. Blood pressure today is 140/72 mmHg. He denies any chest pain, shortness of breath, or headaches. Continue on current regimen including Plavix 75 mg by mouth daily, Imdur 30 mg by mouth daily, lisinopril 20 mg by mouth daily and metoprolol succinate 25 mg by mouth daily as well as Lipitor 80 mg by mouth daily. Continue risk factor modifications including smoking cessation. Encouraged pushing fluids [greater than 64 ounces of water] and avoiding NSAIDs. Creatinine was 0.87 on 08/23/2020. Follow-up with Cardiology per their recommendations. Follow-up with stephany 6 months. #7 Hypertension Essential Primary; well controlled. PLAN: Blood pressure today is 140/72 mmHg. He denies any chest pain, shortness of breath, or headaches. Doing well on current regimen of lisinopril 20 mg by mouth daily and metoprolol succinate 25 mg by mouth daily. Continue to monitor blood pressure readings with a goal of <140/80 mmHg. Creatininewas 0.87 on 08/23/2020. Repeat BMP is ordered to be completed prior to our follow-up in 6 months: - Basic Metabolic Panel; Future; Expected date: 05/02/2021 (Before next visit) #8 Hyperlipidemia; on statin. PLAN: Continue Lipitor 80 mg by mouth daily. Encouraged ongoing efforts at aggressive lifestyle modifications including regular exercise and a healthy diet. #9 Abuse Tobacco Smoking. PLAN: Strongly encouraged smoking cessation. Patient remains precontemplative. Offered assistance atany time. #10 Bronchitis Chronic (HCC). PLAN: Stressed importance of smoking cessation. Continue on current medication regimen. #11 Personal History Of Malignant Neoplasm Of Bladder #12 Cyst Renal PLAN: PSA was within normal limits on 04/17/2020. Follow-up with Urology per their recommendations. #13 Deconditioning. #14 Myalgias; lower extremities. PLAN: We discussed that this is likely secondary to deconditioning and not working those muscles specifically. He does not have any numbness or tingling in the feet. No radiculopathy symptoms or low back pain. The patient and I discussed multiple stretches that he can do to work on strengthening his legs. A hand out of information was provided for his review. Notify me with any questions or concerns. PATIENT EDUCATION Patient Education: Ready to learn, no apparent learning barriers were identified; learning preferences include listening. Explained diagnosis and treatment plan; patient expressed understanding of the context. This document serves as a record of services personally performed by Faiza Truong D.O.. Itwas created on their behalf by Janina Hoover, a trained medical data analyst. The creation of this recordis based on the scribe remotely listening to the visit and the provider's statements to them. This do cument has been checked and approved by the attending provider. Electronically signed by: Faiza Truong D.O. 10/31/20 2:24 PM CDT documented in this encounter Plan of Treatment Upcoming Encounters Date Type Specialty Care Team Description 04/12/2022 Office Visit Cardiovascular Disease Simone Gooden AP RN, C.N.P. [address] [place], [place] [phone] (Wo rk) Scheduled Referrals Name Type Priority Associated Diagnoses Order S [facility] Internal Outpatient Referral Routine Ex pected: Medicine office 05/02/2021 visit (clinic) (Approximate) , Expires: 11/01/2023 documented as of this encounter Results Glucose, Fasting (04/30/2021 1:42 PM TOP LIFTER) athologist Signature Glucose, P 78 70 - 100 04/30/2021 [place] mg/dL 4:30 PM TOP LIFTER Last Intake 22 hr 04/30/2021 [place] 3:37 PM TOP LIFTER Specimen Anatomical Collection Method Collection Time Receive d Time (Source) Location / / Volume Laterality Blood (Blood, 04/30/2021 1:42 PM 04/30/20 3:37 Venous) TOP LIFTER PM TOP LIFTER Faiza Truong D.O. LAB BLOOD NON ADD-ON Performing Organization Address City/State/ZIP Code Phon e Number [facility]- [address] [place] [address] [facility] [place] [address] System in [place] [address] PSA (Prostate-Specific Antigen) Screen (04/30/2021 1:42 PM TOP LIFTER) athologist Signature Prostate-Specif 2.0 <=6.5 ng/mL 04/30/2021 [place] ic Ag 4:15 PM TOP LIFTER Comment: ----ADDITIONAL INFORMATION---- The testing method is [...] (Blood, 04/30/2021 1:42 PM 04/30/20 3:37 Venous) TOP LIFTER PM TOP LIFTER Faiza Truong D.O. LAB BLOOD ADD-ON Performing Organization Address City/State/ZIP Code Phon e Number [facility]- [address] [place] [address] [place] [address] System in [place] [address] [facility] Basic Metabolic Panel (04/30/2021 1:42 PM TOP LIFTER) P athologist Signature Potassium, P 4.6 3.6 - 5.2 04/30/2021 [place] mmol/L 4:19 PM TOP LIFTER Sodium, P 136 135 - 145 04/30/2021 [place] mmol/L 4:19 PM TOP LIFTER Chloride, P 99 98 - 107 04/30/2021 [place] mmol/L 4:19 PM TOP LIFTER Bicarbonate, P 28 22 - 29 04/30/2021 [place] mmol/L 4:18 PM TOP LIFTER Anion Gap, P 9 7 - 15 04/30/2021 [place] 4:19 PM TOP LIFTER BUN (Blood Urea 20 8 - 24 04/30/2021 [place] Nitrogen), P mg/dL 4:18 PM TOP LIFTER Creatinine 0.95 0.74 - 04/30/2021 [place] 1.35 mg/dL 4:18 PM TOP LIFTER eGFR-Black/Afric >90 >=60 04/30/2021 [place] an Citizen Of [place] mL/min/BSA 4:18 PM TOP LIFTER Comment: ----ADDITIONAL INFORMATION---- Estimated GFR calculated using the 2009 CKD_EPI creatinine equation. eGFR Non-Black/ 80 >=60 mL/min/BSA 4:18 PM TOP LIFTER [place] Comment: ----ADDITIONAL INFORMATION---- Estimated GFR calculated using the 2009 CKD_EPI creatinine equation. Calcium, Total, P 9.8 8.8 - 10.2 mg/dL 04/30/2021 4:18 PM TOP LIFTER [place] Glucose, P CANCELED mg/dL 04/30/2021 3:37 PM TOP LIFTER [place] Comment: Test not performed. See Fasting Glucose result. Result canceled by the ancillary. Specimen Anatomical Collection Method Collection Time Receive d Time (Source) Location / / Volume Laterality Blood (Blood, 04/30/2021 1:42 PM 04/30/20 3:36 Venous) TOP LIFTER PM TOP LIFTER Faiza Truong D.O. LAB BLOOD ADD-ON Performing Organization Address City/State/ZIP Code Phon e Number [facility]- [address] [place] [address] 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 PCP - General Internal Medicine 10/19/[address] [place] [id number] documented as of this encounter
--- OUTSIDE RECORDS SUMMARY | 2022-03-29 07:45 | XMS_ITS | Encounter Summary ---
:1950 Author Organization [facility] Address [address] [place] [address] Care Team Providers Name Role Phone Faiza Truong D.O. Primary Care Provider [phone] Reason for Visit Reason Onset Date Comments Outpatient COVID-19 Testing 01/12/2021 Encounter Details Date Type Department Care Team Description 01/12/2021 External Outreach Department of Mukul Mcfarland And Internal Medicine in J, D.O. (Suspected) Exposure [place], [place] [address] [facility] [facility] [address] To COVID-19 (Primary [address] [place], [place] Dx) [place] [phone] Social History Tobacco Use Types Packs/Day Years [...] week 04/16/2019 How often do you attend confucianism or mandaen services? 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 - 01/12/2021 8:44 AM CDT Encounter created for COVID-19 screening. documented in this encounter Plan of Treatment Upcoming Encounters Date Type Specialty Care Team Description 04/12/2022 Office Visit Cardiovascular Disease Simone Gooden AP RN, C.N.P. [address] [phone] (Wo rk) documented as of this encounter Procedures Procedure Name Priority Date/Time Associated Diagnosis Comme nts SARS CORONAVIRUS-2 Routine 01/12/2021 10:30 AM Contact With An d Results for this RNA, V CDT (Suspected) Exposure procedu re are in To COVID-19 the results section. documented in this encounter Results SARS Coronavirus-2 RNA, V Asymptomatic (01/12/2021 10:30 AM CDT) [facility] Method Time Signature SARS-CoV-2 Swab, 01/13/2021 [facility] Specimen Nasopharynx 2:04 AM CDT Source SARS CoV-2 Undetected Undetected 01/13/2021 [facility] RNA, TMA 2:04 AM CDT Comment: SARS-CoV-2 RNA absent. This result does not rule out COVID-19 in the patient, as the sensitivity of the test depends o n the timing of the specimen collection and the quality of the specim en. Result should be correlated with patient's history and clinical presentat ion. ----ADDITIONAL INFORMATION---- This molecular amplification test was pe rformed using the Aptima SARS-CoV-2 assay ([employer] on the Go2call.coms tem under emergency use authorization (EUA) by the U.S. Food and Drug Administ ration. Fact sheets for this EUA assay can be fo und at the following links: For Healthcare Providers: https://www.fd a.gov/media/096240/download For Patients: https://www.fda.gov/media/ 815333/download Specimen Anatomical Collection Method Collection Time Receive d Time (Source) Location / / Volume Laterality Varies 01/12/2021 10:30 01/12/2021 3:01 (Nasopharynx) AM CDT PM CDT Mukul Mcfarland D.O. LAB MICROBIOLOGY - GENERAL O RDERABLES Performing Organization Address City/State/ZIP [facility] Phon e Number [facility]- [address] [place] [address] [place] [address] [address] documented in this encounter Visit Diagnoses Diagnosis Contact With And (Suspected) Exposure To COVID-19 - Primary documented in this encounter Additional Health Concerns Infection Onset Date Last Indicated Resolved Time COVID19 Pending 01/12/2021 01/12/2021 01/13/2021 2:04 AM CDT Assessment Noted Time PHQ-9 Depression Total Score: 3 10/31/2020 10:00 AM CD T documented as of this encounter Care Teams Stenographic Court Reporter Relationship Specialty Start Date End Date Faiza Truong D.O. PCP - General Internal Medicine 10/19/[address] [phone] documented as of this encounter
--- OUTSIDE RECORDS SUMMARY | 2022-03-29 07:45 | XMS_ITS | Encounter Summary ---
:1950 Author Organization [facility] Address [address] [place] [address] Care Team Providers Name Role Phone Faiza Truong D.O. Primary Care Provider Encounter Details Date Type Department Care Team Description 01/29/2021 Ancillary Procedure Department of Urology Social History [...] week 04/16/2019 How often do you attend baptist or congregation services? 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 [address] [phone] (Wo rk) documented as of this encounter Procedures Procedure Name Priority Date/Time Associated Diagnosis Comme nts UROLOGY IMAGE EXAM Routine 01/29/2021 9:10 AM Res ults for this CDT procedure are i n the results section. documented in this encounter Results CYSTOSCOPY-Urology Image Exam (01/29/2021 9:10 AM CDT) Specimen (Source) Anatomical Collection Method Collection Time Re ceived Time Location / / Volume Laterality 01/29/2021 9:08 AM CDT Narrative [facility] - 01/29/2021 9:21 AM CDT This order has been created and [...] documented as of this encounter Care Teams Director Of First Impressions Relationship Specialty Start Date End Date Faiza Truong D.O. PCP - General Internal Medicine 10/19/19 [address] [place] [phone] documented as of this encounter
--- OUTSIDE RECORDS SUMMARY | 2022-03-29 07:45 | XMS_ITS | Encounter Summary ---
:1950 Author Organization [facility] Address [address] [place] [address] Care Team Providers Name Role Phone Faiza Truong D.O. Primary Care Provider [phone] Encounter Details Date Type Department Care Team Description 08/03/2020 Clinical Communication Department of Internal Nakia Dockery Medicine in [place] D.O . [place] [address] [place] [address] [phone] Social History Tobacco Use Types Packs/Day Years [...] week 04/16/2019 How often do you attend uatsdin or christianity services? 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 Next availableis 09/08/20. Patient stated that he is needing to be seen before then. Patient stated that he is having reoccurring flare up's and would like to know if he can be fit in. Please advise. Current Can Nursing/Provider leave a detailed message?: yes Did the patient refuse triage through Nurse line? (for symptom based concerns): na Action Needed: Please call Name of Medication (if relevant): na documented in this encounter Plan of Treatment Upcoming Encounters Date Type Specialty Care Team Description 04/12/2022 Office Visit Cardiovascular Disease Simone Gooden AP RN, C.N.P. [address] [phone] (Wo rk) documented as of this encounter Visit Diagnoses Not on filedocumented in this encounter Additional Health Concerns Assessment Noted Time PHQ-9 Depression Total Score: 12 04/16/2019 9:45 AM CS T documented as of this encounter Care Teams Administrative Office Manager Relationship Specialty Start Date End Date Faiza Truong D.O. PCP - General Internal Medicine 10/19/[address] [phone] documented as of this encounter
--- OUTSIDE RECORDS SUMMARY | 2022-03-29 07:45 | XMS_ITS | Encounter Summary ---
:1950 Author Organization [facility] Address [address] [place] [address] Care Team Providers Name Role Phone Faiza Truong D.O. Primary Care Provider [phone] Reason for Visit Reason Comments Med Refill Encounter Details Date Type Department Care Team Description 08/03/2020 Refill Department of Internal Medicine Faiza Atkinson, Med Refill in [place], Mame ta D.O. [address] [place] [address] [address] [place] [phone] (Wo rk) Social History Tobacco Use Types [...] week 04/16/2019 How often do you attend temple or bahai services? 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 [address] [phone] (Wo rk) documented as of this encounter Visit Diagnoses Not on filedocumented in this encounter Additional Health Concerns Assessment Noted Time PHQ-9 Depression Total Score: 12 04/16/2019 9:45 AM CS T documented as of this encounter Care Teams House Builder Relationship Specialty Start Date End Date Faiza Truong D.O. PCP - General Internal Medicine 10/19/[address] [phone] documented as of this encounter
--- OUTSIDE RECORDS SUMMARY | 2022-03-29 07:45 | XMS_ITS | Encounter Summary ---
:1950 Author Organization [facility] Address [address] [place] [address] Care Team Providers Name Role Phone Faiza Truong D.O. Primary Care Provider [phone] Encounter Details Date Type Department Care Team Description 07/18/2020 Hospital Encounter Department of Claudio Hypert ensive Heart Laboratory Medicine n, Ele [place] And Chronic Kidney in [place] Disease With[address] t Heart [place] [address] Failure And With [address] [place], [place] Stage 2 (Mild) [place] [address] Chronic Kidney [address] Disease Social History Tobacco Use Types Packs/Day Years [...] How often do you attend sikh or anabaptism services? 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 [address] [phone] (Wo rk) documented as of this encounter Procedures Procedure Name Priority Date/Time Associated Diagnosis Comme nts RENAL FUNCTION Routine 07/18/2020 8:23 AM Hypertensive Heart R esults for this PANEL, S CDT And Chronic Kidney procedure are in Disease Without Heart the re sults Failure And With section. Stage 2 (Mild) Chronic Kidney Disease documented in this encounter Results (ABNORMAL) Renal Function Panel (07/18/2020 8:23 AM CDT) P athologist Signature Potassium, P 4.6 3.6 - 5.2 07/18/2020 [place] mmol/L 10:46 AM CDT Sodium, P 138 135 - 145 07/18/2020 [place] mmol/L 10:46 AM CDT Chloride, P 102 98 - 107 07/18/2020 [place] mmol/L 10:57 AM CDT Bicarbonate, P 30 (H) 22 - 29 07/18/2020 [place] mmol/L 10:46 AM CDT Anion Gap, P 6 (L) 7 - 15 07/18/2020 [place] 10:57 AM CDT BUN (Blood Urea 16 8 - 24 07/18/2020 [place] Nitrogen), P mg/dL 10:46 AM CDT Creatinine 0.92 0.74 - 07/18/2020 [place] 1.35 mg/dL 10:46 AM CDT eGFR-Black/Afri >90 >=60 07/18/2020 [facility] can Lithuanian mL/min/BSA 10:46 AM CDT Comment: ----ADDITIONAL INFORMATION---- Estimated GFR calculated using the 2009 CKD_EPI creatinine equation. eGFR Non-Black/ 83 >=60 mL/min/BSA 07/18/2020 10:46 AM CDT [facility] Comment: ----ADDITIONAL INFORMATION---- Estimated GFR calculated using the 2009 CKD_EPI creatinine equation. Calcium, Total, P 9.5 8.8 - 10.2 mg/dL 07/18/2020 10:4 6 AM CDT [place] Glucose, P 85 70 - 140 mg/dL 07/18/2020 10:46 AM CDT [place] Albumin, P 4.2 3.5 - 5.0 g/dL 07/18/2020 10:46 AM CDT [facility] Phosphorus (Inorganic), P 3.1 2.5 - 4.5 mg/dL 07/19/19 4:33 PM CDT [facility] Specimen Anatomical Collection Method Collection Time Receive d Time (Source) Location / / Volume Laterality Blood (Blood, 07/18/2020 8:23 AM 07/19/19 Venous) CDT 10:23 AM CDT Narrative [facility] - 07/18/2020 4:33 PM CDT Specimen Information: Specimen ID: [id number] Specimen Type: Blood Specimen Collection Start Date: 07/19/19 ??8:23 AM Specimen Received Date: 07/18/2020 10:23 AM Specimen ID: [id number] Specimen Type: Blood Specimen Collection Start Date: 07/19/19 ??8:23 AM Specimen Received Date: 07/18/2020 ??3:5 7 PM Faiza Truong D.O. 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 PCP - General Internal Medicine 10/19/[address], [place] [address] documented as of this encounter
--- OUTSIDE RECORDS SUMMARY | 2022-03-29 07:45 | XMS_ITS | Encounter Summary ---
:1950 Author Organization [facility] Address [address] [place] [address] Care Team Providers Name Role Phone Faiza Truong D.O. Primary Care Provider [phone] Reason for Visit Reason Comments Chest Pain Encounter Details Date Type Department Care Team Description 08/23/2020 Nurse Triage Department of Internal Velvet Niño , Chest Pain Medicine in [facility] [address] [place] [address] [facility] [phone] Social History Tobacco Use Types Packs/Day Years [...] How often do you attend mu-ism or buddhism services? 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 - 08/23/2020 8:20 AM CDT Chief Complaint / Reason for Call Patient is a 70 y.o. male calling regarding Chest Pain. Assessment Concern: Caller started having chest pain last night at 1900. He reports he has been sweating, lightheaded and has had diarrhea. The pain radiates to his neck. The pain comes and goes and is a 7/10 when he has the pain. The episodes lasted 20 at at time. He feels like he is was having heartburn. He states this is how he felt when he has his heart attack and had 6 stents placed. Present for: 13 hours Home cares tried: None Calling to request: Appointment The recommended disposition is Call EMS 911 Now. Care Advice Patient/Caregiver understands and will follow care advice?: Yes, able to teach back CALL EMS 911 NOW: Reason for Disposition ? ? [1] Chest pain lasts > 5 minutes AND [2] age > 50 Protocols used: CHEST [id number] documented in this encounter Plan of Treatment Upcoming Encounters Date Type Specialty Care Team Description 04/12/2022 Office Visit Cardiovascular Disease Simone Gooden AP RN, C.N.P. [address] [place] [phone] (Wo rk) documented as of this encounter Visit Diagnoses Not on filedocumented in this encounter Additional Health Concerns Assessment Noted Time PHQ-9 Depression Total Score: 12 04/16/2019 9:45 AM CS T documented as of this encounter Care Teams Plugman Relationship Specialty Start Date End Date Faiza Truong D.O. PCP - General Internal Medicine 10/19/19 [address] [place] [phone] documented as of this encounter
--- OUTSIDE RECORDS SUMMARY | 2022-03-29 07:45 | XMS_ITS | Encounter Summary ---
:1950 Author Organization [facility] Address [address] [place] [address] Care Team Providers Name Role Phone Faiza Truong D.O. Primary Care Provider [phone] Encounter Details Date Type Department Care Team Description 02/13/2021 Clinical Communication Department of Internal Nakia Dockery Medicine in [place] D.O . [place] [address] [place] [phone] [phone] Social History Tobacco Use Types Packs/Day Years [...] week 04/16/2019 How often do you attend yarsani or cheondoism services? 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 [address] [phone] (Wo rk) documented as of this encounter Visit Diagnoses Not on filedocumented in this encounter Additional Health Concerns Assessment Noted Time PHQ-9 Depression Total Score: 3 10/31/2020 10:00 AM CD T documented as of this encounter Care Teams Publications Editor Relationship Specialty Start Date End Date Faiza Truong D.O. PCP - General Internal Medicine 10/19/[address] [phone] documented as of this encounter
--- OUTSIDE RECORDS SUMMARY | 2022-03-29 07:45 | XMS_ITS | Encounter Summary ---
:1950 Author Organization [facility] Address [address] [place] [address] Care Team Providers Name Role Phone Faiza Truong D.O. Primary Care Provider [phone] Encounter Details Date Type Department Care Team Description 06/29/2020 Orders Only [facility] PCP [facility] Sa sarahi Bae M.D. [address] [place], [place] [phone] (Wo rk) Social History Tobacco Use Types [...] week 04/16/2019 How often do you attend adventist or hindu services? 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 [address], [place] [phone] (Wo rk) documented as of this encounter Visit Diagnoses Not on filedocumented in this encounter Additional Health Concerns Assessment Noted Time PHQ-9 Depression Total Score: 04/16/2019 9:45 AM CS T documented as of this encounter Care Teams Speed Belt Sander Tender Relationship Specialty Start Date End Date Faiza Truong D.O. PCP - General Internal Medicine 10/[address] [phone] documented as of this encounter
--- OUTSIDE RECORDS SUMMARY | 2022-03-29 07:45 | XMS_ITS | Encounter Summary ---
:1950 Author Organization [facility] Address [address] [place] [address] Care Team Providers Name Role Phone Faiza Truong D.O. Primary Care Provider [phone] Encounter Details Date Type Department Care Team Description 05/09/2020 Clinical Communication Department of Internal Simone Gooden, Medicine in [facility] [address] [place] [phone] Social History Tobacco Use Types Packs/Day Years [...] week 04/16/2019 How often do you attend cheondoism or scientologist services? 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 documented as of this encounter Miscellaneous Notes Telephone Encounter - Kamlesh Veronica Randy - 05/09/2020 8:26 AM CST What is the purpose of the call?: Standard Appointment Process Standard Appointment Process Have you tested positive for COVID-19 in the last 20 days OR do you have a pending COVID-19 test because you had symptoms?: No, neither apply What region is the appointment being requested?: Less than 20 days [facility], SWWI or [facility] In the past 14 days are any of the following symptoms new to you and not related to an existing health condition?: No symptoms noted In the past 14 days have you had close contact* with a person who has a LABORATORY CONFIRMED case ofCOVID-19?: No exposure noted, follow appt process (End Screening) Testing Recommendation Endpoint Is testing recommended? : Not recommended to test Plan: Endpoint recommendation: Followed regional OTG *Reminder if sending patient for testing in [facility] or [facility], route encounter to the correct testing pool. CHUTE CROWN SEWER documented in this encounter Plan of Treatment Upcoming Encounters Date Type Specialty Care Team Description 04/12/2022 Office Visit Cardiovascular Disease Simone Gooden AP RN, C.N.P. [address] [place] [phone] (Wo rk) documented as of this encounter Visit Diagnoses Not on filedocumented in this encounter Additional Health Concerns Assessment Noted Time PHQ-9 Depression Total Score: 12 04/16/2019 9:45 AM CS T documented as of this encounter Care Teams Contact Center Associate Relationship Specialty Start Date End Date Faiza Truong D.O. PCP - General Internal Medicine 10/19/[address] [phone] documented as of this encounter
--- OUTSIDE RECORDS SUMMARY | 2022-03-29 07:45 | XMS_ITS | Encounter Summary ---
:1950 Author Organization [facility] Address [address] [place] [address] Care Team Providers Name Role Phone Faiza Truong D.O. Primary Care Provider [phone] Reason for Visit Reason Comments Med Refill Encounter Details Date Type Department Care Team Description 05/02/2020 Refill Department of Cardiovascular [place] Lucius anderson M.D. Med Refill Diseases in [place], [place] [address] [facility] [address] [place] [phone] [phone] (Wo rk) Social History Tobacco Use Types [...] week 04/16/2019 How often do you attend worship or mormon services? 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 [address] [place] [phone] (Wo rk) documented as of this encounter Visit Diagnoses Not on filedocumented in this encounter Additional Health Concerns Assessment Noted Time PHQ-9 Depression Total Score: 12 04/16/2019 9:45 AM CS T documented as of this encounter Care Teams Police Aide Relationship Specialty Start Date End Date Faiza Truong D.O. PCP - General Internal Medicine 10/19/[address] [phone] documented as of this encounter
--- OUTSIDE RECORDS SUMMARY | 2022-03-29 07:45 | XMS_ITS | Encounter Summary ---
:1950 Author Organization [facility] Address [address] [place] [address] Care Team Providers Name Role Phone Faiza Truong D.O. Primary Care Provider [phone] Reason for Referral Specialty Diagnoses / Procedures Referred By Contact Refer red To Contact Jillian Koo M.D. [facility] Region [address] [place] [address] Referral ID Status Reason Start Date Expiration Date Visits Requ ested Visits Authorized Encounter Details Date Type Department Care Team Description 01/29/2021 Orders Only [facility] PCP [facility] Sa sarahi Koo M.D. [address] [place] [address] [phone] (Wo rk) Social History Tobacco [...] week 04/16/2019 How often do you attend druze or anabaptism services? 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 [address] [phone] (Wo rk) Scheduled Referrals Name Type Priority Associated Order Schedule Diagnoses Covid immunization Outpatient Referral Routine Ex pected: office visit Booster 021 (Approximate), Expires: 01/29/2022 documented as of this encounter Visit Diagnoses Not on filedocumented in this encounter Additional Health Concerns Assessment Noted Time PHQ-9 Depression Total Score: 3 10/31/2020 10:00 AM CD T documented as of this encounter Care Teams Railcar Brake Operator Relationship Specialty Start Date End Date Faiza Truong D.O. PCP - General Internal Medicine 10/19/[address] [phone] documented as of this encounter
--- OUTSIDE RECORDS SUMMARY | 2022-03-29 07:45 | XMS_ITS | Encounter Summary ---
:1950 Author Organization [facility] Address [address] [place] [address] Care Team Providers Name Role Phone Faiza Truong D.O. Primary Care Provider [phone] Reason for Visit Reason Comments Follow-up Outpatient (Routine) - Closed Specialty Diagnoses / Procedures Referred By Contact Refer red To Contact Community Internal YAIR Truong JAYNA R egion Medicine Yohannes Kendall [address] [phone] Referral ID Status Reason Start Date Expiration Date Visits Requ ested Visits Authorized [id number] Closed 10/19/2019 10/18/2020 1 1 Encounter Details Date Type Department Care Team Description 04/21/2020 Office Visit Department of Internal Andrez Truong oronary Stent Status Post (Primary Dx); Medicine in Faiza Tirado D.O . Hypertensive Heart And Chronic Kidney Di sease Without Heart Failure And With Stage 2 (Mild) Chronic Kidney Disease [place] [address] [phone] Social History Tobacco Use Types Packs/Day Years Used Date Smoking Tobacco: Some Days Cigarettes 0.2 Smokeless Tobacco: Never Tobacco Cessation: Ready to Quit: No; Co unseling Given: No Comments: 4 cigarettes per day Alcohol Use [...] week 04/16/2019 How often do you attend samaritan or pentecostal services? 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 SPECIALIST documented as of this encounter Last Filed Vital Signs Vital Sign Reading Time Taken Comments Blood Pressure 122/72 04/21/2020 10:22 AM CHILD DEVELOPMENT SPECIALIST Pulse 92 04/21/2020 11:20 AM CHILD DEVELOPMENT SPECIALIST Temperature 36.1 ??C (97 ??F) 04/21/2020 10:22 AM CHILD DEVELOPMENT SPECIALIST Respiratory Rate - - Oxygen Saturation 96% 04/21/2020 10:22 AM CHILD DEVELOPMENT SPECIALIST Inhaled Oxygen Concentration - - Weight 99.7 kg (219 lb 12.8 oz) 04/21/2020 10:22 AM CHILD DEVELOPMENT SPECIALIST Height - - Body Mass Index 33.7 04/16/2019 9:50 AM CHILD DEVELOPMENT SPECIALIST documented in this encounter Progress Notes Faiza Truong D.O. - 04/21/2020 10:30 AM CST SUBJECTIVE CHIEF COMPLAINT / REASON FOR VISIT Seven Salazar is a 70 y.o. male who presents for evaluation of Follow-up. Seven Salazar is a 70 y.o. male with past medical history significant for coronary artery disease with stable angina, history of coronary artery stenting, hypertension, CKD stage 2, impaired fasting glucose, and abuse tobacco smoking who presents today for a medication review and follow-up. I lastsaw the patient on 10/19/2019 at which time we established care. Today the patient states that he is doing well overall. He has been working 16 hours a week at [employer]. 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 From the standpoint of his cardiac health, he denies any chest pain or shortness of breath. When working at [employer] he walks approximately 4 miles a day and he also has been lifting light weights athome. During the holiday season and the pandemic he has been indulging in sweets today. It is noted that his best friend of 58 years in March which has started to hit him harder this morning than it had any of the past days. He is coping relatively well but just notes that he is missing him particularly well today. There are no further concerns at this time. The following portions of the patient's history were reviewed and updated as appropriate: allergies,current medications, family history, medical history, social history, surgical history, and problem list. REVIEW OF SYSTEMS A ten point ROS is otherwise negative. OBJECTIVE BP 122/72 (BP Location: Right arm, Patient Position: Sitting, Cuff Size: Large) Pulse 104 Temp 36.1 ??C (Temporal) Wt 99.7 kg SpO2 96% BMI 33.70 kg/m?? PHYSICAL EXAMINATION General Appearance: healthy, alert, no distress. Skin: skin color, texture, turgor normal, no suspicious rashes or lesions. Head: normocephalic, no masses, lesions, tenderness or abnormalities. ENT: There is a moderate amount of cerumen noted in his ears bilaterally. Neck: Supple, no adenopathy; thyroid symmetric, normal size, no bruits. Lungs: clear to auscultation, no wheezing or rhonchi. Heart: RRR without murmur, gallop, or rubs. No ectopy, No carotid bruits. Extremities: DTRs: Patella and Achilles 2+ bilaterally and symmetric. No edema, cyanosis or calf tenderness.. DIAGNOSTICS Component Latest Ref Rng & Units 04/17/2020 Potassium, P 3.6 - 5.2 mmol/L 5.0 Sodium, P 135 - 145 mmol/L 140 Chloride, P 98 - 107 mmol/L 103 Bicarbonate, P 22 - 29 mmol/L 29 Anion Gap, P 7 - 15 8 BUN, P 8 - 24 mg/dL 21 Creatinine, P 0.74 - 1.35 mg/dL 1.07 eGFR Black >=60 mL/min/BSA 80 eGFR Non-Black >=60 mL/min/BSA 69 Calcium, Total, P 8.8 - 10.2 mg/dL 9.6 Glucose, P 70 - 140 mg/dL 99 Hemoglobin 13.2 - 16.6 g/dL 15.8 Hematocrit 38.3 - 48.6 % 47.2 Erythrocytes 4.35 - 5.65 x10(12)/L 5.39 MCV 78.2 - 97.9 fL 87.6 RBC Distrib Width 11.8 - 14.5 % 14.1 Platelet Count 135 - 317 x10(9)/L 251 White Blood Cell Count 3.4 - 9.6 x10(9)/L 6.5 Cholesterol, Total, P mg/dL 107 Triglycerides, Fasting, P mg/dL 48 Cholesterol, HDL, P >=40 mg/dL 47 Calculated LDL mg/dL 50 Non HDL Cholesterol mg/dL 60 Testosterone, Free, S 3.28 - 12.2 ng/dL 12.1 Testosterone, Total by Mass Spectrometry, Serum 240 - 950 ng/dL 576 Prostate-Specific Ag <=6.5 ng/mL 1.9 ASSESSMENT / PLAN #1. Coronary Artery Disease With Stable Angina (HCC); stable. #2. Coronary Stent Status Post. PLAN: Continue risk factor modifications. Blood pressure is well controlled. Continue to monitor. Seven is provided with a refill for Imdur 30 mg by mouth daily AM: - isosorbide mononitrate (IMDUR) 30 mg 24 hr tablet; Take 1 tablet (30 mg total) by mouth every morning., Starting Fri04/21/2020, Until 04/21/2021, Normal Reviewed the way this medication works and possible side effects. Follow-up with Cardiology per their recommendations. Discussed signs and symptoms that would prompt immediate re-evaluation. Follow-up with me in 3 months. Notify me with any questions or concerns. #3. 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 PLAN: Blood pressure is well controlled. Continue on his current medication regimen. A refill for Metoprolol 25 mg by mouth daily is given today: - metoprolol succinate (TOPROL-XL) 25 mg 24 hr tablet; Take 1 tablet (25 mg total) by mouth daily., Starting Fri04/21/2020, Until 04/21/2021, Normal Encouraged the patient to push fluids [at least 64 ounces of water daily] and the importance of avoiding NSAID use. Creatinine was 1.07 on 04/17/2020. Will repeat Renal Function labs prior to our next appointment: - Renal Function Panel; Future; Expected date: 07/20/2020 #4. Hyperlipidemia PLAN: Reviewed Fasting lipid panel from 04/17/2020. This is well controlled. Continue on Lipitor 80 mg by mouth at bedtime. Continue efforts at consuming a healthy diet and regular exercise. #5. Impaired Fasting Glucose PLAN: His last Hemoglobin A1c was 5.8% on 10/15/2019. Encouraged ongoing efforts at aggressive lifestyle modifications including regular exercise and a healthy diet. #6. Abuse Tobacco Smoking PLAN: Strongly encouraged smoking cessation; especially in light of his cardiac history. Patient remains precontemplative. Offered assistance at any time. #7. Personal History Of Malignant Neoplasm Of Bladder. PLAN: This is followed by Dr. Camejo [Urology]. Continue to follow-up with them per their recommendations. #8. Dysfunction Erectile PLAN: We previously discussed that some of his medications [Imdur, Lisinopril, and Metoprolol] are associated with decreased libido or erectile issues; although low percentages. In addition, increased age, obesity, smoking, and impaired fasting glucose are all contributing factors. Reviewed his lab work from 04/17/2020. Seven had been referred to the erectile dysfunction Clinic in [place]. It is noted that he is not a good candidate for Viagra, Cialis, or other phosphodiesterase type 5 inhibitorsdue to his cardiac history. This document serves as a record of services personally performed by Faiza Truong D.O.. Itwas created on their behalf by Janina Hoover, a trained medical technician assistant. The creation of this recordis based on the scribe remotely listening to the visit and the provider's statements to them. This do cument has been checked and approved by the attending provider. Electronically signed by: Faiza Truong D.O. 04/21/20 5:34 PM CHILD DEVELOPMENT SPECIALIST D DEVELOPMENT SPECIALIST documented in this encounter Plan of Treatment Upcoming Encounters Date Type Specialty Care Team Description 04/12/2022 Office Visit Cardiovascular Disease Simone Gooden AP RN, C.N.P. [address] [phone] (Wo rk) documented as of this encounter Results (ABNORMAL) Renal Function Panel [...] CDT eGFR-Black/Afri >90 >=60 07/18/2020 OWAT can [place] mL/min/BSA 10:46 AM CDT Comment: ----ADDITIONAL INFORMATION---- [...] 07/19/19 Venous) CDT 10:23 AM CDT Narrative [facility] - 07/18/2020 4:33 PM CDT Specimen Information: Specimen ID: [id number] Specimen Type: Blood Specimen Collection Start Date: 07/19/19 ??8:23 AM Specimen Received Date: 07/18/2020 10:23 AM Specimen ID: [id number] Specimen Type: Blood Specimen Collection Start Date: 07/19/19 ??8:23 AM Specimen Received Date: 07/18/2020 ??3:5 7 PM Faiza Truong D.O. LAB BLOOD ADD-ON Performing Organization Address City/State/ZIP Code Phon e Number [facility]- [address] [place] [address] [place] [address] System in [place] [address] [facility] - [address] documented in this encounter Visit Diagnoses Diagnosis Coronary Stent Status Post - Primary Hypertensive Heart And Chronic Kidney Di sease Without Heart Failure And With Stage 2 (Mild) Chronic Kidney Disease Hypertensive Heart And Chronic Kidney Di sease Without Heart Failure And With Stage 2 (Mild) Chronic Kidney Disease documented in this encounter Additional Health Concerns Assessment Noted Time PHQ-9 Depression Total Score: 12 04/16/2019 9:45 AM CS T documented as of this encounter Care Teams Exhibits Manager Relationship Specialty Start Date End Date Faiza Truong D.O. PCP - General Internal Medicine 10/19/[address] [place] [phone] documented as of this encounter
--- OUTSIDE RECORDS SUMMARY | 2022-03-29 07:45 | XMS_ITS | Encounter Summary ---
:1950 Author Organization [facility] Address [address] [place] [address] Care Team Providers Name Role Phone Faiza Truong D.O. Primary Care Provider [phone] Encounter Details Date Type Department Care Team Description 07/20/2020 Ancillary Procedure Department of Urology Social History [...] How often do you attend jainism or religion services? Never 04/16/2019 Do you belong to [...] at Date Recorded Male 06/28/2019 8:47 AM SHOT MAN documented as of this encounter Plan of Treatment Upcoming Encounters Date Type Specialty Care Team Description 04/12/2022 Office Visit Cardiovascular Disease Simone Gooden AP RN, C.N.P. [address] [phone] (Wo rk) documented as of this encounter Procedures Procedure Name Priority Date/Time Associated Diagnosis Comme nts UROLOGY IMAGE EXAM Routine 07/20/2020 9:05 AM Res ults for this CDT procedure are i n the results section. documented in this encounter Results CYSTOSCOPY-Urology Image Exam (07/20/2020 9:05 AM CDT) Specimen (Source) Anatomical Collection Method Collection Time Re ceived Time Location / / Volume Laterality 07/20/2020 9:01 AM CDT Narrative [facility] - 07/20/2020 9:10 AM CDT This order has been created [...] documented as of this encounter Care Teams Burglar Alarm Mechanic Relationship Specialty Start Date End Date Faiza Truong D.O. PCP - General Internal Medicine 10/19/19 [address] [place] [phone] documented as of this encounter
--- OUTSIDE RECORDS SUMMARY | 2022-03-29 07:45 | XMS_ITS | Encounter Summary ---
:1950 Author Organization [facility] Address [address] [place] [address] Care Team Providers Name Role Phone Faiza Truong D.O. Primary Care Provider [phone] Encounter Details Date Type Department Care Team Description 01/12/2021 Admin Visit Department of Family Medicine, [address] [phone] [facility] [phone] Social History Tobacco Use Types Packs/Day Years [...] week 04/16/2019 How often do you attend gnosticist or nondenominational services? 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 [address] [place] [phone] (Wo rk) documented as of this encounter Visit Diagnoses Not on filedocumented in this encounter Additional Health Concerns Infection Onset Date Last Indicated Resolved Time COVID19 Pending 01/12/2021 01/12/2021 01/13/2021 2:04 AM CDT Assessment Noted Time PHQ-9 Depression Total Score: 3 10/31/2020 10:00 AM CD T documented as of this encounter Care Teams Ferryboat Operator Relationship Specialty Start Date End Date Faiza Truong D.O. PCP - General Internal Medicine 10/19/[address] [phone] documented as of this encounter
--- OUTSIDE RECORDS SUMMARY | 2022-03-29 07:45 | XMS_ITS | Encounter Summary ---
:1950 Author Organization [facility] Address [address] [place] [address] Care Team Providers Name Role Phone Faiza Truong D.O. Primary Care Provider [phone] Reason for Referral Outpatient (Routine) - Closed Specialty Diagnoses / Procedures Referred By Contact Refer red To Contact Cardiovascular Disease Diagnoses Simone Gooden [facility] BOOKKEEPER, C.N.P. [address] [phone] Referral ID Status Reason Start Date Expiration Date Visits Requ ested Visits Authorized [id number] Closed 02/13/2021 02/13/2022 1 1 Reason for Visit Reason Comments Hyperlipidemia Hypertension Coronary Artery Disease Outpatient (Routine) - Closed Specialty Diagnoses / Procedures Referred By Contact Refer red To Contact Cardiovascular Disease Diagnoses Simone Gooden [facility] Procedures BOOKKEEPER, C.N.P. [address] [phone] Referral ID Status Reason Start Date Expiration Date Visits Requ ested Visits Authorized [id number] Closed 05/18/2020 05/18/2021 1 1 Encounter Details Date Type Department Care Team Description 02/13/2021 Office Visit Department of Simone Gooden Arter y Disease With Stable Angina (HCC) (Primary Dx); Cardiovascular Diseases CASEY Maguire Coro nary Stent Status Post; in aMme White gopal C.N.PBhavesh Hypertensive Heart And Chronic Kidney Di sease Without Heart Failure And With Stage 2 (Mild) Chronic Kidney Disease; [address] Abuse Tobacco Smoking; J[place] WHITE [phone] Hyperlipidemia [phone] [place] White [phone] Social History Tobacco Use Types Packs/Day Years [...] How often do you attend nondenominational or shinto services? 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 - 02/13/2021 8:45 AM CDT SUBJECTIVE CHIEF COMPLAINT/REASON FOR VISIT Follow-up heart disease. HISTORY OF PRESENT ILLNESS Seven Salazar is seen today for follow-up on his underlying heart disease. I last saw him on August 28, 2020 after he had been to the emergency room for an episode of chest discomfort. He has known coronary artery disease and his heart history dates back to March of 2017. At that time he was seen for epigastric abdominal discomfort and ended up having an abnormal ECG and abnormal troponin levelin the outpatient setting. He was sent directly to [facility] where he had ST changes in the inferior leads and a coronary angiogram revealed obstructive disease in the LAD, RCA and circumflex arteries. He had PTCA and stenting to the RCA and circumflex on March 22, 2017 and then return to the drop crew laborer on March 24, 2017 for a staged stenting to the LAD. He presented again in July of 2017 with symptoms of unstable angina and was diagnosed with an NSTEMI with a repeat coronary angiogram that revealed diffuse coronary artery disease but no focal areas of stenosis for intervention. After his emergency room visit back in August he was sent for a nuclear stress test. His nuclear stress test came back negative for evidence of ischemia or infarction. He had a normal LV size with an LVEF of 65%. This stress test was done at the [facility] in [place]. He tells me that he has done fairly well since that time frame but he did have another episode of epigastric discomfort that improved with the use of sublingual nitroglycerin about four or five days ago. He has not had any recurrences since. He described this discomfort as a pressure with some associat ed lightheadedness but no diaphoresis or shortness of breath. He is on isosorbide at 30 mg daily andhe had been taking his medications regularly. He also continues on dual anti-platelet therapy due toa DAPT risk score of three and a low bleeding risk. Unfortunately, he continues to be an active tobacco user smoking approximately 4-5 cigarettes per day. CURRENT MEDICATIONS Current Outpatient Medications: ??? albuterol [...] Disease (Unspecified) 06/12/2017 ??? Coronary Artery Disease [place] Vessel 06/12/2017 ??? Corticosteroid Treatment Ad Operations Specialist Systemic 03/14/2017 ??? Cyst Renal 02/05/2016 ??? [...] 03/23/2004 ??? 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 Stroke ([facility]) 03/23/2004 SURGICAL HISTORY Past Surgical History: [...] 1 of 3 OBJECTIVE VITAL SIGNS BP 127/67 (BP Location: Right arm, Patient Position: Sitting, Cuff Size: Large) Pulse (!) 56 Wt 96.6 kg BMI 32.46 kg/m?? PHYSICAL EXAMINATION General: Well-appearing in no acute distress, alert and oriented x 3. Vessels: No JVD or carotid bruits. Heart: Regular rate and rhythm. Normal S1-S2. No murmurs. Lungs: Clear bilaterally. Abdomen: Nondistended. Extremities: No edema. DIAGNOSTICS Nuclear stress test at [facility] August 25, 2020 FINDINGS: ??There is good uptake of activity by the left ventricle. ??No left ventricular enlargement is noted. ?? There is mild soft tissue attenuation. ??No other significant fixed or reversible defects are identified. ? 1. ??There is no evidence of significant myocardial ischemia or infarction. 2. ??Normal left ventricular ejection fraction of approximately 65 percent. 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 This episode just happens to have occurred within the last week. He has not had any recurrences since. He continues to be active and he works at [employer] without regularly triggering chest pain episodes. His most recent event did occur her with exertion when he was sweeping his garage. I also reviewed his stress test with him from August of this year as well as his coronary angiogram from 2018 that did show nonobstructive coronary artery disease but also a residual LAD lesion at 60%. His stress test did not show any ischemia in the LAD territory back in August. I would like to try to further optimize his medical management by increasing his isosorbide up to 60 mg daily and if this iswell tolerated we could go up to 90 or 120 mg daily if we want to. His symptom is most consistent with angina and so if medical management fails to alleviate symptoms I think a repeat coronary angiogram would be reasonable to reassess the LAD in particular. I also stressed the importance of tobacco cessation. I again discussed the pathophysiology of continued tobacco use and ASCVD. We discussed that this also may contribute to ongoing angina. I have askedhim to schedule a six week follow- up with myself and we can discuss continued medical management verses an invasive assessment at that time. We discussed what types of symptoms to look out for regarding unstable angina and how he should present to the emergency room if he experiences that situation. He will be due for repeat lipid panel this April and is numbers last year were at goal. Continue the 80 mg of atorvastatin. His blood pressure is slightly above goal on several recent clinic visits and so the increase in isosorbide may help this as well. PLAN FOR FOLLOW-UP: Recommend follow-up by Simone Gooden in six week. documented in this encounter Plan of Treatment Upcoming Encounters Date Type Specialty Care Team Description 04/12/2022 Office Visit Cardiovascular Disease Simone Gooden AP RN, C.N.P. [address] [phone] (Wo rk) Scheduled Referrals Name Type Priority Associated Order Schedule Diagnoses Cardiovascular Disease Outpatient Referral Routine Expected: office visit (clinic) 2020 (Approximate), Expires: 02/14/2024 documented as of this encounter Results Lipid Panel (04/30/2021 1:42 PM LABOR EXPEDITER) P athologist Signature Cholesterol, 121 mg/dL 04/30/2021 [place] Total 4:18 PM LABOR EXPEDITER Comment: ----REFERENCE VALUE---- Desirable: < 200 Borderline high: 200 - 239 High: > or = 240 Triglycerides 70 mg/dL 04/30/2021 4:18 PM LABOR EXPEDITER OWA T Comment: ----REFERENCE VALUE---- Normal: <150 Borderline high: 150-199 High: 200-499 Very high: > or =500 Cholesterol, HDL 46 >=40 mg/dL 04/30/2021 4:18 PM LABOR EXPEDITER [place] Calculated LDL 61 mg/dL 04/30/2021 4:18 PM LABOR EXPEDITER OW AT Comment: ----REFERENCE VALUE---- Desirable: <100 mg/dL Above Desirable: 100-129 mg/dL Borderline High: 130-159 mg/dL High: 160-189 mg/dL Very High: >=190 mg/dL Cholesterol, Non-HDL, Calculated 75 mg/dL 021 4:18 PM LABOR EXPEDITER [place] Comment: ----REFERENCE VALUE---- Desirable: <130 Above Desirable: 130-159 Borderline high: 160-189 High: 190-219 Very high: > or =220 Specimen Anatomical Collection Method Collection Time Receive d Time (Source) Location / / Volume Laterality Blood (Blood, 04/30/2021 1:42 PM 04/30/20 3:36 Venous) LABOR EXPEDITER PM LABOR EXPEDITER Simone Gooden APRN, C.N.P. 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 PCP - General Internal Medicine 10/19/[address] [place] [phone] documented as of this encounter
--- OUTSIDE RECORDS SUMMARY | 2022-03-29 07:45 | XMS_ITS | Encounter Summary ---
:1950 Author Organization [facility] Address [address] [place] [address] Care Team Providers Name Role Phone Faiza Truong D.O. Primary Care Provider [phone] Reason for Referral Outpatient (Routine) - Closed Specialty Diagnoses / Procedures Referred By Contact Refer red To Contact Diagnoses Malignant Neoplasm Of Bladder (HCC) Jatinder Camejo M.D. [facility] [place] [facility] Procedures Cystoscopy (specific provider) [address] [place] [address] Referral ID Status Reason Start Date Expiration Date Visits Requ ested Visits Authorized [id number] Closed 07/20/2020 07/20/2021 1 1 Reason for Visit Reason Comments Follow-up 4 month bladder cancer Outpatient (Routine) - Closed Specialty Diagnoses / Procedures Referred By Contact Refer red To Contact Diagnoses Malignant Neoplasm Of Bladder (HCC) Postprocedural Bulbous Urethral Stricture Male Jatinder Camejo M.D. [facility] [place] [facility] Procedures Cystoscopy (specific provider) [address] [place] [address] Referral ID Status Reason Start Date Expiration Date Visits Requ ested Visits Authorized [id number] Closed 03/06/2020 03/06/2021 1 1 Encounter Details Date Type Department Care Team Description 07/20/2020 Office Visit Department of Urology Jatinder Camejo Mal ignant Neoplasm Of Bladder (HCC); in [place] Postprocedural Bulbous Urethral Strictur e Male [place] [address] [place] [phone] Social History Tobacco Use Types Packs/Day Years [...] How often do you attend scientologist or zoroastrianism services? 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 - 07/20/2020 8:45 AM CDT CHIEF COMPLAINT/REASON FOR VISIT Cystoscopy. ?? The patient was appropriately identified with at least two separate identifiers and the correct procedure was confirmed. ??Verbal consent was obtained. ?? INDICATION: ??Bladder cancer surveillance February 2010:??Initial Resection:??low-grade noninvasive, multifocal. ?? 6 [...] for malignancy, Mitomycin C given. Last cystoscopy: ?March 06, 2020 which was negative. ?? Urine cytology dated July 06, 2020 which was negative. ? INSTRUMENT: ??Flexible [...] stricture not requiring dilation,??stricture calibrate to approximately 14-16??Albanian.?This was dilated by passage of the cystoscope. Prostate: Length: ??3 cm??centimeters. ?Lateral Lobes: ??Mild hypertrophy with no visual obstruction. ?Middle Lobe: ?absent. ?? Bladder Neck: ??Normal. [...] are visualized. Essentially unchanged from prior cystoscopies. ?? The procedure was well tolerated by the patient. ? He was discharged from the office in satisfactory condition. ??Post-cystoscopy instructions were reviewed with him. ?? IMPRESSION: ?1.??History of transitional cell carcinoma the urinary bladder, low-grade and superficial. ??No cystoscopic, urine cytology was atypical. 2. Bulbous urethral stricture, postprocedural, stable? Plan: return to clinic for bladder cancer surveillance to include urine cytology and cystoscopy in 6months. Electronically signed by: Jatinder Camejo M.D. 07/20/20 9:11 AM CDT documented in this encounter Plan of Treatment Upcoming Encounters Date Type Specialty Care Team Description 04/12/2022 Office Visit Cardiovascular Disease Simone Gooden AP RN, C.N.P. [address] [place] [phone] (Wo rk) documented as of this encounter Results Cytology Non-DIRECTOR SEARCH (Scheduled) (01/22/2021 10:50 AM CDT) Component Value Ref Test Analysis Performed At [facility] Method Time Signature 2021 HKCY 9:28 AM [...] Organization Address City/State/ZIP Code Phon e Number [facility] [address] [place], [place] [phone] [place] [address] [place] [phone] [place] [address] Cytology [facility] documented in this encounter Visit Diagnoses Diagnosis Malignant Neoplasm Of Bladder (HCC) Postprocedural Bulbous Urethral Strictur e Male documented in this encounter Additional Health Concerns Assessment Noted Time PHQ-9 Depression Total Score: 12 04/16/2019 9:45 AM CS T documented as of this encounter Care Teams Mgmt Analyst Relationship Specialty Start Date End Date Faiza Truong D.O. PCP - General Internal Medicine 10/19/[address] [phone] documented as of this encounter
--- OUTSIDE RECORDS SUMMARY | 2022-03-29 07:46 | XMS_ITS | Encounter Summary ---
:1950 Author Organization [facility] Address [address] [place] [address] Care Team Providers Name Role Phone Leta Sanchez M.D. Primary Care Provider Reason for Referral Outpatient (Routine) - Closed Specialty Diagnoses / Procedures Referred By Contact Refer red To Contact Cardiovascular Disease Diagnoses Simone Levin [facility] FERTILIZER MIXER, C.N.P. [address] [phone] Referral ID Status Reason Start Date Expiration Date Visits Requ ested Visits Authorized [id number] Closed 07/12/2019 07/11/2020 1 1 Reason for Visit Reason Comments Coronary Artery Disease Outpatient (Routine) - Closed Specialty Diagnoses / Procedures Referred By Contact Refer red To Contact Cardiovascular Disease Diagnoses Simone Levin [facility] FERTILIZER MIXER, C.N.P. 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 Hyperlipidemia; [address] Hypertension Essential Prima ry; J[place]ITE [phone] Abuse Tobacco Smoking [phone] [place] [phone] Social History Tobacco Use [...] week 04/16/2019 How often do you attend advent or orthodox services? 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 - 07/12/2019 1:30 PM CDT SUBJECTIVE CHIEF COMPLAINT/REASON FOR VISIT Coronary artery disease HISTORY OF PRESENT ILLNESS Seven Salazar is seen today to follow-up on his coronary artery disease.His history of heart disease dates back to March of 2017. He had been following with his primary care physician for abdominal pain and as part of that evaluation is sounds like he had an ECG and a troponin. The ECG was abnormal along with an abnormal troponin and he was told to go to the emergency room. [facility] with a significantly elevated troponin and ST-T changes in the inferior leads on his ECG. His coronary angiogram showed obstructive disease in the LAD, RCA and circumflex. He received PTCA and stenting to the RCA and circumflex on March 22, 2019 and he was brought back to the [facility] on March 24, 2019 where he received stenting to the LAD. He did well on medical therapy until July of 2017 when he presented with symptoms concerning for unstable angina and was hospitalized. He had a repeat coronary angiogram showing diffuse coronary arthrosclerosis but no focal stenosis. He was diagnosed with the NSTEMI in the setting of influenza A (he u ltimately tested positive for influenza A after he became febrile). He has been treated with medical management since. He reports that he has felt well since our last visit in January of 2019. He considers himself to be active. 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 He has had no symptoms of chest pain and denies any shortness of breath, PND orthopnea. He does wonder how long he should be taking Plavix because his current prescription is about to . MEDICATIONS Current Outpatient Medications: ??? albuterol sulfate [...] bedtime., Disp: 90 tablet, Rfl: 3 ??? isosorbide dinitrate (ISORDIL) 10 mg tablet, Take 1 tablet (10 mg total) by mouth 2 (two) times a day. Take 1 tablet in the morning and another 6 hr apart at noon., Disp: 180 tablet, Rfl: 3 ??? lisinopriL (PRINIVIL,ZESTRIL) 20 mg tablet, TAKE 1 TABLET BY MOUTH ONCE DAILY IN THE MORNING, Disp: 90 tablet, Rfl: 3 ??? metoprolol succinate (TOPROL-XL) 25 mg 24 hr tablet, Take 1 tablet (25 mg total) by mouth at bedtime., Disp: 90 tablet, Rfl: 3 ??? traZODone (DESYREL) 50 mg tablet, Take 2 tablets (100 mg total) by mouth at bedtime., Disp: 180 tablet, Rfl: 3 ??? clopidogreL (PLAVIX) 75 mg tablet, Take 1 tablet (75 mg total) by mouth daily., Disp: 90 tablet,Rfl: 1 ??? nitroglycerin (for_NITROSTAT) 0.4 mg SL tablet, Place 0.4 mg under the tongue every 5 (five) minutes as needed for chest pain. Place 1 tab under the tongue at first sign of chest pain. If no reliefin 5 min, call 911. Repeat dose every 5 min up to 2 additional doses if chest pain continues., Disp:, Rfl: ALLERGIES Allergies Allergen Reactions ??? Bupropion Hcl Other (see comments) Cerner listed no reactions. Suicidal thoughts. ??? Citalopram Diarrhea ??? Influenza Virus Vaccine Bivalent Other (see comments) Sickness, Cerner listed no reactions. ??? Pravastatin Myalgia and Other (see comments) PAST MEDICAL/SURGICAL HISTORY Past Medical History: Diagnosis Date ??? Abuse Tobacco Smoking 07/03/2015 ??? Anemia 03/31/2017 ??? Arthralgia 07/03/2015 ??? Arthritis Shoulder 07/03/2015 ??? Bronchitis Chronic (HCC) 07/03/2015 ??? Coronary Artery Disease (Unspecified) 06/12/2017 ??? Coronary Artery Disease [place] Vessel 06/12/2017 ??? Corticosteroid Treatment Long-Term Systemic 03/14/2017 ??? Cyst Renal 02/05/2016 ??? [...] 03/23/2004 ??? 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 Stroke ([facility]) 03/23/2004 Past Surgical History: Procedure Laterality Date [...] 1 of 3 OBJECTIVE VITAL SIGNS BP 138/66 (BP Location: Right arm, Patient Position: Sitting, Cuff Size: Large) Pulse 76 Wt 98.6kg BMI 33.33 kg/m?? PHYSICAL EXAMINATION GENERAL: Pleasant well-developed male in no acute distress, alert and oriented x3 VESSELS: No JVD HEART: Regular rate and rhythm, normal S1-S2. No murmurs LUNGS: Slightly diminished posteriorly bilaterally. No rales, rhonchi or wheezing ABDOMEN: Nondistended EXTREMITIES: Warm without pitting edema DIAGNOSTICS Lab Results Component Value Date CREATININE 0.90 04/12/2019 BUN 16 04/12/2019 NA 137 04/12/2019 K 4.3 04/12/2019 CL 98 04/12/2019 CO2 27 03/04/2017 Lab Results Component Value Date CHOL 115 04/12/2019 Lab Results Component Value Date HDL 41 04/12/2019 Lab Results Component Value Date LDLCALC 61 04/12/2019 Lab Results Component Value Date TRIG 66 04/12/2019 Lab Results Component Value Date TTLCHOLHDLRT 2.08 04/26/2015 IMPRESSION/REPORT/PLAN #1 Atherosclerotic Heart Disease [place] Coronary Artery With Other Forms 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 He has not been experiencing any significant symptoms of chest pains like he has previously. 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 We discussed ongoing lifestyle modification and the need to quit smoking. I reviewed his prior coronary angiograms and is residual moderate coronary artery disease. I reviewed with him continuing dual anti-platelet therapy verses discontinuing the Plavix and remaining on a low-dose aspirin. After calculating benefits and risks of bleeding, he carries a DAPT score of 3 and continuesto use tobacco products. After weighing the benefits and risks, he would like to continue with DAPT and I think this is reasonable. I have extended his prescription six months and we will discuss againat his next follow-up. #3 Hyperlipidemia I reviewed his lipid numbers from a couple of months ago and they are excellent. Continue with lifestyle modification and his 80 mg of atorvastatin. #4 Hypertension Essential Primary Blood pressure is borderline today, we would like to see a consistent blood pressure less than 130/80 and have room to increase his lisinopril if necessary. He has plans to lose 10 lb in the next couple of months which may continue to improve his blood pressure. He should check his blood pressure at least a couple of times per week and notify the clinic if blood pressures are consistently greater than 130/80. #5 Abuse Tobacco Smoking I educated and counseled today again on tobacco cessation. He is currently smoking about 1/2 to 3/4 of a pack of cigarettes per week then I would advise complete tobacco cessation. He is not ready to make a quit plan yet. documented in this encounter Plan of Treatment Upcoming Encounters Date Type Specialty Care Team Description 04/12/2022 Office Visit Cardiovascular Disease Simone Gooden AP RN, C.N.P. [address] [phone] ([facility]) Scheduled Referrals Name Type Priority Associated Order Schedule Diagnoses Cardiovascular Disease Outpatient Referral Routine Expected: office visit (clinic) 2019 (Approximate), Expires: 07/11/2022 documented as of this encounter Visit Diagnoses Diagnosis Atherosclerotic Heart Disease [place] Cor onary Artery With Other Forms Angina Pectoris (Stable Angina/Angina Of Exertion) ([facility]) - Primary Coronary Stent Status Post Hyperlipidemia Hypertension Essential Primary Abuse Tobacco Smoking documented in this encounter Additional Health Concerns Assessment Noted Time PHQ-9 Depression Total Score: 12 04/16/2019 9:45 AM CS T documented as of this encounter Care Teams Traffic Chief Relationship Specialty Start Date End Date Leta Sanchez M.D. PCP - General 10/17/16 10/18/19 documented as of this encounter
--- OUTSIDE RECORDS SUMMARY | 2022-03-29 07:46 | XMS_ITS | Encounter Summary ---
:1950 Author Organization [facility] Address [address] [place] [address] Care Team Providers Name Role Phone Faiza Truong D.O. Primary Care Provider [phone] Encounter Details Date Type Department Care Team Description 11/01/2019 Ancillary Procedure Department of Urology Social History [...] week 04/16/2019 How often do you attend voodoo or gnosticism services? 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 [address] [phone] ([place]) documented as of this encounter Procedures Procedure Name Priority Date/Time Associated Diagnosis Comme nts UROLOGY IMAGE EXAM Routine 11/01/2019 4:40 AM Res ults for this CDT procedure are i n the results section. documented in this encounter Results CYSTOSCOPY-Urology Image Exam (11/01/2019 4:40 AM CDT) Specimen (Source) Anatomical Collection Method Collection Time Re ceived Time Location / / Volume Laterality 11/01/2019 4:39 AM CDT Narrative [facility] - 11/01/2019 8:17 AM CDT This order has been created [...] documented as of this encounter Care Teams Composition Siding Worker Relationship Specialty Start Date End Date Faiza Truong D.O. PCP - General Internal Medicine 10/19/19 [address] [place] [phone] documented as of this encounter
--- OUTSIDE RECORDS SUMMARY | 2022-03-29 07:46 | XMS_ITS | Encounter Summary ---
:1950 Author Organization [facility] Address [address] [place] [address] Care Team Providers Name Role Phone Faiza Truong D.O. Primary Care Provider [phone] Encounter Details Date Type Department Care Team Description 02/28/2020 Hospital Encounter Department of Dawna Camejo Neoplasm Of Laboratory Medicine Javid Tobias Bladder (HCC) in [facility] [address] [facility] [address] [place] [phone] Social History Tobacco Use Types Packs/Day Years [...] How often do you attend pentecostalism or adventist services? 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 albuterol sulfate 90 Inhale 2 puffs 4 1 each 11 7 02/13/2021 mcg/actuation aerosol (four) times a day powdr breath activated as needed (for shortness of breath and wheezing- Use with spacer chamber.). atorvastatin (LIPITOR) Take 1 tablet (80 mg 90 tablet 3 06/201805/18/2020 80 mg tablet total) by mouth at bedtime. clopidogreL (PLAVIX) 75 Take 1 tablet by 90 tablet 0 201905/04/2020 mg tablet mouth once daily isosorbide dinitrate Take 1 tablet (10 mg 180 tablet 3 04/1604/21/2020 (ISORDIL) 10 mg total) by mouth 2 tabletIndications: (two) times a day. Coronary Artery Disease Take 1 tablet in the With Stable Angina (HCC) morning and another 6 hr apart at noon. isosorbide mononitrate Take 1 tablet (30 mg 90 tablet 3 12/201904/21/2020 (IMDUR) 30 mg 24 hr total) by mouth tablet every morning. lisinopriL TAKE 1 TABLET BY 90 tablet 3 07/08/2019 08/04/19 21 (PRINIVIL,ZESTRIL) 20 mg MOUTH ONCE DAILY IN tablet THE MORNING metoprolol succinate Take 1 tablet (25 mg 90 tablet 3 09/0804/21/2020 (TOPROL-XL) 25 mg 24 hr total) by mouth at tablet bedtime. nitroglycerin Place 0.4 mg under 0 (for_NITROSTAT) 0.4 mg the tongue every 5 SL tablet (five) minutes as needed for chest pain. Place 1 tab under the tongue at first sign of chest pain. If no relief in 5 min, call 911. Repeat dose every 5 min up to 2 additional doses if chest pain continues. traZODone (DESYREL) 50 Take 2 tablets (100 180 tablet 3 04/0404/21/2020 mg tabletIndications: mg total) by mouth Depression Anxiety, at bedtime. Insomnia documented as of this encounter Plan of Treatment Upcoming Encounters Date Type Specialty Care Team Description 04/12/2022 Office Visit Cardiovascular Disease Simone Gooden AP RN, C.N.P. [address] [phone] (Wo r[place]) documented as of this encounter Procedures Procedure Name Priority Date/Time Associated Diagnosis Comme nts CYTOLOGY NON-LUMBER STRAIGHTENED Routine 02/28/2020 8:05 AM Malignant Neoplasm Results for this (SCHEDULED) CDT Of Bladder (HCC) procedure a re in the results section. documented in this encounter Results (ABNORMAL) Cytology Non-LUMBER STRAIGHTENED (Scheduled) (02/28/2020 8:05 AM CDT) Component Value Ref Test Analysis Performed At [facility] gist Range Method Time Signature 02/29/2020 [facility] (A) 2:14 PM CDT Fixative 50% Alcohol 02/29/2020 [facility] (A) 2:14 PM CDT Report Azeb Gustafson MD 02/29/2020 [facility] electronically I verify that I have examined all relevant slides/ma terials 2:14 PM CDT signed by for the specimen(s) and rendered or confirmed the diagnosis. (A) Gross Description Received 100 02/29/2020 [facility] ml of yellow 2:14 PM CDT alcohol fixed fluid (A) Collection Urine (A) 02/29/2020 [facility] Procedure 2:14 PM CDT Source A. Urine, 02/29/2020 [facility] Clean Catch, 2:14 PM CDT voided (A) Clinical History Unknown (A) 02/29/2020 [facility] 2:14 PM CDT Interpretation A. Urine, Clean Catch, voided (cytospin): Atypical 02/29/2020 [facility] urothelial cells. 2:14 PM CDT (A) Specimen Anatomical Collection Method Collection Time Receive d Time (Source) Location / / Volume Laterality Varies (Urine, 02/28/2020 8:05 AM 020 7:22 Clean Catch) CDT AM CDT Narrative This result has an attachment that is no t available. Jatinder Camejo M.D. LAB SURG PATH ORDERABLES Performing Organization Address City/State/ZIP Code Phon e Number [facility] [address] [place] [address] [facility] [place] [address] [facility] [address] [facility] documented in this encounter Visit Diagnoses Diagnosis Malignant Neoplasm Of Bladder (HCC) documented in this encounter Additional Health Concerns Assessment Noted Time PHQ-9 Depression Total Score: 12 04/16/2019 9:45 AM CS T documented as of this encounter Care Teams Hearing Health Technician Relationship Specialty Start Date End Date Faiza Truong D.O. PCP - General Internal Medicine 10/19/[address] [phone] documented as of this encounter
--- OUTSIDE RECORDS SUMMARY | 2022-03-29 07:46 | XMS_ITS | Encounter Summary ---
:1950 Author Organization [facility] Address [address] [place] [address] Care Team Providers Name Role Phone Faiza Truong D.O. Primary Care Provider Encounter Details Date Type Department Care Team Description 04/17/2020 Hospital Encounter Department of Claudio Dysfun ction Erectile Laboratory Medicine n, [place] in [facility] [address] [address] [phone] Social History Tobacco Use Types Packs/Day Years [...] week 04/16/2019 How often do you attend faith or baptism services? Never 04/16/2019 Do you belong to any clubs or organizations such as faith N o 04/16/2019 groups, unions, fraternal or [...] at Date Recorded Male 06/28/2019 8:47 AM BOOK SHELVER documented as of this encounter Medications at [...] Cardiovascular Disease Simone Gooden AP RN, C.N.P. [address] [phone] (Wo rk) documented as of this encounter Procedures Procedure Name Priority Date/Time Associated Diagnosis Comme nts LIPID PANEL, S Routine 04/17/2020 8:06 AM Dysfunction Erectile Results for this BOOK SHELVER procedure are i n the results section. CBC WITHOUT Routine 04/17/2020 8:06 AM Dysfunction Erectile R esults for this DIFFERENTIAL, B BOOK SHELVER procedure ar e in the results section. TESTOSTERONE, TOT Routine 04/17/2020 8:06 AM Dysfunction Erect ile Results for this AND FR, S BOOK SHELVER procedure are i n the results section. PROSTATE-SPECIFIC Routine 04/17/2020 8:06 AM Dysfunction Erect ile Results for this AG (PSA) BOOK SHELVER procedure are i n DIAGNOSTIC, S the results section. BASIC METABOLIC Routine 04/17/2020 8:06 AM Dysfunction Erectil e Results for this PANEL, S/P BOOK SHELVER procedure are i n the results section. documented in this encounter Results PSA (Prostate-Specific Antigen), Diagnostic (04/17/2020 8:06 AM BOOK SHELVER) P athologist Signature Prostate-Specif 1.9 <=6.5 ng/mL 04/17/2020 OW[facility] ic Ag 10:59 AM BOOK SHELVER Comment: Biotin has been identified by the heri ellisonr as a potential interfering substance. ??Higher concentr ations of biotin may be found in multivitamins, hair/nail supple ments, and workout supplements. ??If the result does not [facility] clinical observations, repeat testing after patient refrains fr om the use of supplements for at least 12 hours. ----ADDITIONAL INFORMATION---- The testing method is an [...] Location / / Volume Laterality Blood (Blood, 04/17/2020 8:06 AM 04/17/20 20 Venous) BOOK SHELVER 10:26 AM BOOK SHELVER Faiza Truong D.O. LAB BLOOD ADD-ON Performing Organization Address City/State/ZIP Code Phon e Number [facility]- [address] [place] [address] [facility] [place] [address] System in [place] [address] Lipid Panel (04/17/2020 8:06 AM BOOK SHELVER) P athologist Signature Cholesterol, 107 mg/dL 04/17/2020 [facility] Total 10:47 AM BOOK SHELVER Comment: ----REFERENCE VALUE---- Desirable: < 200 Borderline high: 200 - 239 High: > or = 240 Triglycerides 48 mg/dL 04/17/2020 10:47 AM BOOK SHELVER OW [facility] Comment: ----REFERENCE VALUE---- Normal: <150 Borderline high: 150-199 High: 200-499 Very high: > or =500 Cholesterol, HDL 47 >=40 mg/dL 04/17/2020 10:47 AM CS T OW[facility] Calculated LDL 50 mg/dL 04/17/2020 10:47 AM BOOK SHELVER O SARAH Comment: ----REFERENCE VALUE---- Desirable: <100 Above Desirable: 100-129 Borderline high: 130-159 High: 160-189 Very high: > or =190 Cholesterol, Non-HDL, Calculated 60 mg/dL 020 10:47 AM BOOK SHELVER [facility] Comment: ----REFERENCE VALUE---- Desirable: <130 Above Desirable: 130-159 Borderline high: 160-189 High: 190-219 Very high: > or =220 Specimen Anatomical Collection Method Collection Time Receive d Time (Source) Location / / Volume Laterality Blood (Blood, 04/17/2020 8:06 AM 04/17/20 20 Venous) BOOK SHELVER 10:26 AM BOOK SHELVER Faiza Truong D.O. LAB BLOOD ADD-ON Performing Organization Address City/State/ZIP Code Phon e Number [facility]- [address] [place] [address] [facility] [place] [address] System in [place] [address] CBC without Differential (04/17/2020 8:06 AM BOOK SHELVER) athologist Signature Hemoglobin 15.8 13.2 - 04/17/2020 FB60 16.6 g/dL 9:01 AM BOOK SHELVER Hematocrit 47.2 38.3 - 04/17/2020 FB60 48.6 % 9:01 AM BOOK SHELVER Erythrocytes 5.39 4.35 - 04/17/2020 FB60 5.65 9:01 AM BOOK SHELVER x10(12)/L MCV 87.6 78.2 - 04/17/2020 FB60 97.9 fL 9:01 AM BOOK SHELVER RBC Distrib Width 14.1 11.8 - 04/17/2020 FB60 14.5 % 9:01 AM BOOK SHELVER Platelet Count 251 135 - 317 04/17/2020 FB60 x10(9)/L 9:01 AM BOOK SHELVER Leukocytes 6.5 3.4 - 9.6 04/17/2020 FB60 x10(9)/L 9:01 AM BOOK SHELVER Specimen Anatomical Collection Method Collection Time Receive d Time (Source) Location / / Volume Laterality Blood (Blood, 04/17/2020 8:06 AM 04/17/20 20 8:08 Venous) BOOK SHELVER AM BOOK SHELVER Faiza Truong D.O. LAB BLOOD ADD-ON Performing Organization Address City/State/ZIP Code Phon e Number [facility]- [address] [place] [address] [facility] [place] [address] Basic Metabolic Panel (04/17/2020 8:06 AM BOOK SHELVER) athologist Signature Potassium, P 5.0 3.6 - 5.2 04/17/2020 [facility] mmol/L 10:47 AM BOOK SHELVER Sodium, P 140 135 - 145 04/17/2020 [facility] mmol/L 10:47 AM BOOK SHELVER Chloride, P 103 98 - 107 04/17/2020 [facility] mmol/L 10:47 AM BOOK SHELVER Bicarbonate, P 29 22 - 29 04/17/2020 [facility] mmol/L 10:47 AM BOOK SHELVER Anion Gap, P 8 7 - 15 04/17/2020 [facility] 10:47 AM BOOK SHELVER BUN (Blood Urea 21 8 - 24 04/17/2020 OW[facility] Nitrogen), P mg/dL 10:47 AM BOOK SHELVER Creatinine 1.07 0.74 - 04/17/2020 [facility] 1.35 mg/dL 10:47 AM BOOK SHELVER eGFR-Black/Afric 80 >=60 04/17/2020 OW[facility] an [place] Zealander mL/min/BSA 10:47 AM BOOK SHELVER Comment: ----ADDITIONAL INFORMATION---- Estimated GFR calculated using the 2009 CKD_EPI creatinine equation. eGFR Non-Black/ 69 >=60 mL/min/BSA 04/17/2020 10:47 AM BOOK SHELVER OW[facility] Comment: ----ADDITIONAL INFORMATION---- Estimated GFR calculated using the 2009 CKD_EPI creatinine equation. Calcium, Total, P 9.6 8.8 - 10.2 mg/dL 04/17/2020 10:4 7 AM BOOK SHELVER [facility] Glucose, P 99 70 - 140 mg/dL 04/17/2020 10:47 AM BOOK SHELVER OW[facility] Specimen Anatomical Collection Method Collection Time Receive d Time (Source) Location / / Volume Laterality Blood (Blood, 04/17/2020 8:06 AM 04/17/20 20 Venous) BOOK SHELVER 10:26 AM BOOK SHELVER Faiza Truong D.O. LAB BLOOD ADD-ON Performing Organization Address City/State/ZIP Code Phon e Number [facility]- [address] [place] [address] [place] [address] System in [place] [address] Testosterone, Total and Free (04/17/2020 8:06 AM BOOK SHELVER) athologist Signature Testosterone, 12.1 3.28 - 12.2 04/19/2020 [facility] Free, S ng/dL 11:43 AM BOOK SHELVER Comment: ----ADDITIONAL INFORMATION---- Testing performed by Mary Jane Hammondi pablo. This test was developed and its performa nce characteristics determined by [facility] in a manner consistent with CLIA requirements. This test has not been cleared or approved by the [place] d and Drug Administration. Testosterone, Total by Mass 576 240 - 950 ng/dL 2019 4:13 PM BOOK SHELVER [facility]SC Spectrometry, Serum Comment: ----ADDITIONAL INFORMATION---- Testing performed by Liquid Chromatograp hy-Tandem Mass Spectrometry (LC-MS/MS). This test was developed and its performa nce characteristics determined by [facility] in a manner consistent with CLIA requirements. This test has not been cleared or approved by the [place] d and Drug Administration. Specimen Anatomical Collection Method Collection Time Receive d Time (Source) Location / / Volume Laterality Blood (Blood, 04/17/2020 8:06 AM 04/18/20 6:36 Venous) BOOK SHELVER AM BOOK SHELVER Faiza Truong D.O. LAB BLOOD NON ADD-ON Performing Organization Address City/State/ZIP Code Phon e Number [facility] [address] [place] [address] SU[facility] CENTER [facility] [place] [address] Laboratory Medicine and Pathology [address] [place] documented in this encounter Visit Diagnoses Diagnosis Dysfunction Erectile documented in this encounter Additional Health Concerns Assessment Noted Time PHQ-9 Depression Total Score: 12 04/16/2019 9:45 AM CS T documented as of this encounter Care Teams Channel Development Director Relationship Specialty Start Date End Date Faiza Truong D.O. PCP - General Internal Medicine 10/19/19 [address] [place] [address] documented as of this encounter
--- OUTSIDE RECORDS SUMMARY | 2022-03-29 07:46 | XMS_ITS | Encounter Summary ---
:1950 Author Organization [facility] Address [address] [place] [address] Care Team Providers Name Role Phone Leta Sanchez M.D. Primary Care Provider Reason for Visit Reason Comments Bladder Cancer Follow-up 4 month Outpatient (Routine) - Canceled Specialty Diagnoses / Procedures Referred By Contact Refer red To Contact Diagnoses Malignant Neoplasm Of Bladder (HCC) PAR Jatinder Camejo M.D. [facility] Procedures Cystoscopy (specific provider) [address] [place] [address] Referral ID Status Reason Start Date Expiration Date Visits V isits Requested Authorized [id number] Canceled 02/18/2019 02/18/2020 1 1 Encounter Details Date Type Department Care Team Description 06/28/2019 Procedure visit Department of Urology Jatinder Camejo, Unspecified Bulbous Urethral Stricture Male (Primary Dx); in Javid Tirado Malignant Neoplasm Of Bladder (HCC) [place] [address] [facility] [place] [phone] Social History Tobacco Use Types Packs/Day Years [...] week 04/16/2019 How often do you attend religion or zoroastrianism services? Never 04/16/2019 Do you belong to any clubs or organizations such as religion N o 04/16/2019 groups, unions, fraternal or [...] Date Recorded Male 06/28/2019 8:47 AM SUPERVISOR ENGINE ASSEMBLY documented as of this encounter Last Filed Vital Signs Vital Sign Reading Time Taken Comments Blood Pressure 132/71 06/28/2019 8:45 AM SUPERVISOR ENGINE ASSEMBLY Pulse 74 06/28/2019 8:45 AM SUPERVISOR ENGINE ASSEMBLY Temperature 36.9 ??C (98.4 ??F) 06/28/2019 8:45 AM SUPERVISOR ENGINE ASSEMBLY Respiratory Rate - - Oxygen Saturation - - Inhaled Oxygen Concentration - - Weight - - Height - - Body Mass Index - - documented in this encounter Procedure Notes Jatinder Camejo M.D. - 06/28/2019 9:00 AM CST CHIEF COMPLAINT/REASON FOR VISIT Cystoscopy. ?? The [...] for malignancy, Mitomycin C given. Last cystoscopy: February 18, 2019, negative. ? INSTRUMENT: ??Flexible cystourethroscope. ANESTHESIA: ??2% [...] stricture not requiring dilation,??stricture calibrate to approximately 14-16??Faroese.?This was dilated by passage of the cystoscope. [...] malignancy or areas of concern are visualized. ?? The procedure was well tolerated by the patient. ? He was discharged from the office in satisfactory condition. ??Post-cystoscopy instructions were reviewed with him. ?? IMPRESSION: ?1. History of transitional cell carcinoma the urinary bladder, low-grade and superficial. No cystoscopic evidence of recurrent disease. 2. Bulbous urethral stricture, postprocedural, stable ?? PLAN: Send an aliquot of urine for cytology. If this is negative, repeat bladder cancer surveillancein 4 months. Electronically signed by: Jatinder Camejo M.D. 06/28/19 9:05 AM SUPERVISOR ENGINE ASSEMBLY RVISOR ENGINE ASSEMBLY documented in this encounter Plan of Treatment Upcoming Encounters Date Type Specialty Care Team Description 04/12/2022 Office Visit Cardiovascular Disease Simone Gooden AP RN, C.N.P. [address] [phone] (Wo rk) documented as of this encounter Procedures Procedure Name Priority Date/Time Associated Diagnosis Comme nts CYTOLOGY NON-SALES MANAGEMENT INTERN Routine 06/28/2019 9:15 AM Malignant Neoplasm Results for this SUPERVISOR ENGINE ASSEMBLY Of Bladder (HCC) procedure a re in the results section. documented in this encounter Results Cytology Non-SALES MANAGEMENT INTERN (Scheduled) (10/26/2019 11:02 AM CDT) Component Value Ref Test Analysis Performed At [facility] gist Range Method Time Signature 10/27/2019 [facility] 9:24 AM CDT Fixative 50% Reagent 10/27/2019 [facility] Alcohol 9:24 AM CDT Report Oh Varma MD 10/27/2019 [facility] electronically I verify that I have examined all relevant slides/ma terials 9:24 AM CDT signed by for the specimen(s) and rendered or confirmed the diagnosis. Gross Description Received 80 10/27/2019 [facility] ml of yellow 9:24 AM CDT alcohol fixed fluid Collection Urine Void 10/27/2019 [facility] Procedure 9:24 AM CDT Source A. Urine, 10/27/2019 [facility] voided 9:24 AM CDT Clinical History C67.9 10/27/2019 [facility] 9:24 AM CDT Interpretation A. Urine, voided (cytospin): Negative for High-Grade 10/27/2019 [facility] Urothelial Carcinoma. 9:24 AM CDT Specimen Anatomical Collection Method Collection Time Receive d Time (Source) Location / / Volume Laterality Varies (Urine, 10/26/2019 11:02 0 6:39 Clean Catch) AM CDT AM CDT Narrative This result has an attachment that is no t available. Jatinder Camejo M.D. LAB SURG PATH ORDERABLES Performing Organization Address City/State/ZIP Code Phon e Number [facility]- [address] [place] [address] [facility] [place] [address] [facility] [address] [facility] (ABNORMAL) Cytology Non-SALES MANAGEMENT INTERN (06/28/2019 9:15 AM SUPERVISOR ENGINE ASSEMBLY) Component Value Ref Test Analysis Performed At [facility] gist Range Method Time Signature (A) 06/29/2019 [facility] 10:10 AM SUPERVISOR ENGINE ASSEMBLY Fixative 50% Reagent 06/29/2019 [facility] Alcohol (A) 10:10 AM SUPERVISOR ENGINE ASSEMBLY Report Lucius Mancia MD 06/29/2019 [facility] electronically I verify that I have examined all relevant slides/ma terials 10:10 AM signed by for the specimen(s) and rendered or confirmed the diagnosis. SUPERVISOR ENGINE ASSEMBLY (A) Gross Description Received 90 06/29/2019 [facility] ml of yellow 10:10 AM alcohol fixed SUPERVISOR ENGINE ASSEMBLY fluid. (A) Collection void (A) 06/29/2019 [facility] Procedure 10:10 AM SUPERVISOR ENGINE ASSEMBLY Source A. Urine, 06/29/2019 [facility] voided (A) 10:10 AM SUPERVISOR ENGINE ASSEMBLY Clinical History bladder 06/29/2019 [facility] cancer (A) 10:10 AM SUPERVISOR ENGINE ASSEMBLY Interpretation A. Urine, 06/29/2019 [facility] voided 10:10 AM (cytospin): SUPERVISOR ENGINE ASSEMBLY Atypical urothelial cells. (A) Specimen Anatomical Collection Method Collection Time Receive d Time (Source) Location / / Volume Laterality Varies 06/28/2019 9:15 AM 0 7:34 SUPERVISOR ENGINE ASSEMBLY AM SUPERVISOR ENGINE ASSEMBLY Narrative This result has an attachment that is no t available. Jatinder Camejo M.D. LAB SURG PATH ORDERABLES Performing Organization Address City/State/ZIP Code Phon e Number [facility]- [address] [place] [id number] [place] [address] [place] [address] [facility] [address] [place] [address] documented in this encounter Visit Diagnoses Diagnosis Unspecified Bulbous Urethral Stricture M adolph - Primary Malignant Neoplasm Of Bladder (HCC) documented in this encounter Additional Health Concerns Assessment Noted Time PHQ-9 Depression Total Score: 12 04/16/2019 9:45 AM CS T documented as of this encounter Care Teams Senior Security Analyst Relationship Specialty Start Date End Date Leta Sanchez M.D. PCP - General 10/17/16 10/18/19 documented as of this encounter
--- OUTSIDE RECORDS SUMMARY | 2022-03-29 07:46 | XMS_ITS | Encounter Summary ---
:1950 Author Organization [facility] Address [address] [place] [address] Care Team Providers Name Role Phone Leta Sanchez M.D. Primary Care Provider Reason for Visit Reason Comments Med Refill Encounter Details Date Type Department Care Team Description 08/11/2019 Refill Department of [facility] Amb[facility]io Sanchez M.D. Med Refill Internal Medicine in [address] [place] [address], [facility] [address] [place] [address] [address] [facility] [address] Social History Tobacco Use Types Packs/Day Years [...] week 04/16/2019 How often do you attend catholic or oriental orthodox services? Never 04/16/2019 Do you belong to any clubs or organizations such as catholic N o 04/16/2019 groups, unions, fraternal [...] at Date Recorded Male 06/28/2019 8:47 AM UTILIZATION MANAGER documented as of this encounter Miscellaneous Notes Telephone Encounter - Radha Collier R.N. - 08/11/2019 9:50 AM CDT SUBJECTIVE CHIEF COMPLAINT / REASON FOR CALL Med Refill Information Discussed Unable to pend medication as patient states that he takes 1/2 tablet (15mg) by mouth every morning. Please verify correct dose and send in refill. PLAN Disposition/Recommendation: notified provider and awaiting recommendations Information/Education: patient/caller able to teach back Caller agreeable to plan of care: yes The following references were used: nursing clinical judgment Telephone Encounter - Tanika Gonsalves - 08/11/2019 9:31 AM CDT Nurse Review: Unable to reconcile; directions differ from med list-see frequency Primary Provider: Leta Sanchez M.D. documented in this encounter Plan of Treatment Upcoming Encounters Date Type Specialty Care Team Description 04/12/2022 Office Visit Cardiovascular Disease Simone Gooden AP RN, C.N.P. [address] [phone] (Wo rk) documented as of this encounter Visit Diagnoses Not on filedocumented in this encounter Additional Health Concerns Assessment Noted Time PHQ-9 Depression Total Score: 12 04/16/2019 9:45 AM CS T documented as of this encounter Care Teams Surface Grinding Machine Hand Relationship Specialty Start Date End Date Leta Sanchez M.D. PCP - General 10/17/16 10/18/19 documented as of this encounter
--- OUTSIDE RECORDS SUMMARY | 2022-03-29 07:46 | XMS_ITS | Encounter Summary ---
:[address] [facility] Address [address] [place] [address] Care Team Providers Name Role Phone Leta Sanchez M.D. Primary Care Provider Reason for Visit Reason Comments Med Refill Encounter Details Date Type Department Care Team Description 07/08/2019 Refill [facility] Sanchez M.D. Med Refill Internal Medicine in [address] [place] [address], [facility] [address] [place] [address] 300 [facility] [address] Social History Tobacco Use Types [...] week 04/16/2019 How often do you attend bahai or alevism services? Never 04/16/2019 Do you belong to any clubs or organizations such as bahai N o 04/16/2019 groups, unions, fraternal or [...] for the very basics like Not h ernata at all 04/16/2019 food, housing, medical care, [...] at Date Recorded Male 06/28/2019 8:47 AM RAW SAMPLER documented as of this encounter Miscellaneous Notes Telephone Encounter - Courtney Randall - 07/08/2019 9:53 AM CST Nurse review: Unable to forward request to provider sent via [employer]; Clopidogrel is not on medication list. Note that a RX for lisinopril was just completed 06/14/2019 so he should not need a new RX at this time. Primary Provider: Leta Sanchez M.D. SAMPLER documented in this encounter Plan of Treatment Upcoming Encounters Date Type Specialty Care Team Description 04/12/2022 Office Visit Cardiovascular Disease Simone Gooden AP RN, C.N.P. [address] [phone] (Wo rk) documented as of this encounter Visit Diagnoses Not on filedocumented in this encounter Additional Health Concerns Assessment Noted Time PHQ-9 Depression Total Score: 12 04/16/2019 9:45 AM CS T documented as of this encounter Care Teams Edge Baster Relationship Specialty Start Date End Date Leta Sanchez M.D. PCP - General 10/17/16 10/18/19 documented as of this encounter
--- OUTSIDE RECORDS SUMMARY | 2022-03-29 07:46 | XMS_ITS | Encounter Summary ---
:1950 Author Organization [facility] Address [address] [place] [address] Care Team Providers Name Role Phone Faiza Truong D.O. Primary Care Provider Encounter Details Date Type Department Care Team Description 12/15/2019 Clinical Communication Department of Internal [facility]ia [facility]ery Medicine [place] . [place] [address] [place] [address] [phone] Social History Tobacco Use Types Packs/Day Years [...] week 04/16/2019 How often do you attend moravian or alevism services? Never 04/16/2019 Do you belong to any clubs or organizations such as moravian N o 04/16/2019 groups, unions, fraternal or [...] at Date Recorded Male 06/28/2019 8:47 AM LENS CLEANER documented as of this encounter Miscellaneous Notes Telephone Encounter - Shira Benito - 12/15/2019 1:03 PM CDT ([facility]ST and [place] [facility] locations only: If the patient is not having symptoms and is requesting COVID-19 Nasal Swab testing only, use the process listed in the COVID-19 Patient Requesting COVID PCR Test OTG COVID-19 [place] Patient Requesting COVID PCR Test). 1. Do you have a pending COVID test because you had symptoms or exposure to someone with COVID or you have tested positive for COVID in the last 30 days? no 2. In the past 14 days, do you, anyone in the household, or anyone you have had prolonged exposure have any of the following? a. Fever greater than or equal to 37.8 C (100.0 F)? no b. New symptoms (Specifically: headache, cough, shortness of breath, respiratory distress, sore throat, diarrhea, nausea, vomiting, chills and repeated shaking with chills, myalgia's (muscle aches), loss of smell, or change or loss of taste sensation)? no Route reply to: Scheduling Contact Number: documented in this encounter Plan of Treatment Upcoming Encounters Date Type Specialty Care Team Description 04/12/2022 Office Visit Cardiovascular Disease Simone Gooden AP RN, C.N.P. [address] [place] [phone] (Wo rk) documented as of this encounter Visit Diagnoses Not on filedocumented in this encounter Additional Health Concerns Assessment Noted Time PHQ-9 Depression Total Score: 12 04/16/2019 9:45 AM CS T documented as of this encounter Care Teams Painter And Body Mechanic Apprentice Relationship Specialty Start Date End Date Faiza Truong D.O. PCP - General Internal Medicine 10/19/[address] [phone] documented as of this encounter
--- OUTSIDE RECORDS SUMMARY | 2022-03-29 07:46 | XMS_ITS | Encounter Summary ---
:1950 Author Organization [facility] Address [address] [place] [address] Care Team Providers Name Role Phone Faiza Truong D.O. Primary Care Provider [phone] Reason for Referral Outpatient (Routine) - Closed Specialty Diagnoses / Procedures Referred By Contact Refer red To Contact Community Internal YAIR Truong [facility] access hospital Medicine Yohannes Kendall [address] [place] [phone] Referral ID Status Reason Start Date Expiration Date Visits Requ ested Visits Authorized [id number] Closed 10/19/2019 10/18/2020 1 1 Outpatient (Routine) - Closed Specialty Diagnoses / Procedures Referred By Contact Refer red To Contact Urology Diagnoses Dysfunction Erectile Faiza Truong [place] D.OBhavesh [address] [place] [phone] Referral ID Status Reason Start Date Expiration Date Visits Requ ested Visits Authorized [id number] Closed 10/19/2019 10/18/2020 1 1 Reason for Visit Reason Comments Follow-up Outpatient (Routine) - Closed Specialty Diagnoses / Procedures Referred By Contact Refer red To Contact Community Internal Diagnoses Annual Medicare Examination Return Bronchitis Chronic With Acute Exacerbation (HCC) Coronary Artery Disease With Stable Angina (HCC) Coronary Stent Status Post Leta Sanchez M.D. [facility] Medicine Hypertensive Heart And Chron ic Kidney Disease Without Heart Failure And With Stage 2 (Mild) Chronic Kidney Disease Hyperlipidemia Impaired Fasting Glucose Depression Anxiety Insomnia Abuse Tobacco Smoking [address], Personal History Of Malignan t Neoplasm Of Bladder Cyst Renal Leukocytosis Elevated Sedimentation Rate High Risk Medication [place] [address] [place] [address] Referral ID Status Reason Start Date Expiration Date Visits Requ ested Visits Authorized [id number] Closed 04/16/2019 04/15/2020 1 1 Encounter Details Date Type Department Care Team Description 10/19/2019 Office Visit Department of Internal Bonilla Truong ysfunction Erectile (Primary Dx); [place] . Coronary Artery Disease With Stable Gladis na (HCC); [place] [address] [facility] Coronary Stent Status Post; [address] [place], [place] Hypertensive Heart And Chron ic Kidney Disease Without Heart Failure And With Stage 2 (Mild) Chronic Kidney Disease; [place] [address] Hyperlipidemia; [phone] Impaired Fasting Glucose; Abuse Tobacco Smoking; [phone] Personal Histor y Of Malignant Neoplasm Of Bladder; (Fax) Cyst Renal Social History Tobacco Use Types Packs/Day Years Used Date Smoking Tobacco: Some Days Cigarettes 0.2 Smokeless Tobacco: Never Tobacco Cessation: Ready to Quit: No; Co unseling Given: Yes Comments: 4 cigarettes per day Alcohol Use [...] week 04/16/2019 How often do you attend jewish or christian services? Never 04/16/2019 Do you belong to any clubs or organizations such as jewish N o 04/16/2019 groups, unions, fraternal or [...] at Date Recorded Male 06/28/2019 8:47 AM LEGAL TRANSCRIBER documented as of this encounter Last Filed Vital Signs Vital Sign Reading Time Taken Comments Blood Pressure 116/63 10/19/2019 3:03 PM CDT Pulse 83 10/19/2019 3:03 PM CDT Temperature 36.7 ??C (98.1 ??F) 10/19/2019 3:03 PM CDT Respiratory Rate - - Oxygen Saturation 97% 10/19/2019 3:03 PM CDT Inhaled Oxygen Concentration - - Weight 97.1 kg (214 lb 1.1 oz) 10/19/2019 3:03 PM CDT Height - - Body Mass Index 32.82 04/16/2019 9:50 AM LEGAL TRANSCRIBER documented in this encounter Progress Notes Faiza Truong D.O. - 10/19/2019 3:30 PM CDT SUBJECTIVE CHIEF COMPLAINT / REASON FOR VISIT Seven Salazar is a 69 y.o. male who presents for evaluation of Follow-up. HISTORY OF PRESENT ILLNESS Seven is a pleasant 69-year-old male with past medical history significant for coronary coronary artery disease with stable angina, history of coronary artery stenting, hypertension, CKD stage 2, impaired fasting glucose, abuse tobacco smoking, presents today for medication review, lab review, establish care with new provider, and to discuss erectile dysfunction. In regards to patient chronic medical comorbidities, and recent blood work, patient has been stable he has no signs of anemia, normal CBC, his sodium potassium and kidney function are stable, his hemoglobin A1c has improved now to 5.8. Patient and I discussed dietary modifications and importance of weight loss. Denies any shortness of breath or chest pain. He has been stable from cardiac standpoint. We also discussed importance of tobacco cessation. Patient is attempting to decrease smoking. The patient has recently lost his primary care provider in [place]. He is interested in establishing care with Internal Medicine in [place]. He does have a history of malignant neoplasm of the bladder which she has been following up with Dr. Hernandez is with no evidence of recurrence. His main concern today is erectile dysfunction issues. The patient states that at time he is able tohave an maintaining erection other times he is unable to. We discussed that some of his medications including the Imdur lisinopril and metoprolol all other associated with decreased libido or erectile issues. Although, low percentages. In addition, increased age, obesity, smoking, and impaired fastingglucose are all contributing factors. We will check lipid panel, testosterone level and PSA, and refer patient erectile dysfunction Clinic in [place]. Unfortunately, he is not a good candidate for Viagra Cialis or other phosphodiesterase type 5 inhibitors due to his cardiac history. The following portions of the patient's history were reviewed and updated as appropriate: allergies,current medications, family history, medical history, social history, surgical history and problem list. REVIEW OF SYSTEMS A ten point ROS is otherwise negative OBJECTIVE BP 116/63 (BP Location: Right arm, Patient Position: Sitting, Cuff Size: Large) Pulse 83 Temp 36.7 ??C Wt 97.1 kg SpO2 97% BMI 32.82 kg/m?? PHYSICAL EXAM General Appearance: healthy. Skin: skin color, texture, turgor normal, no suspicious rashes or lesions. Head: normocephalic, no masses, lesions, tenderness or abnormalities. Lungs: clear to auscultation, no wheezing or rhonchi. Heart: RRR without murmur, gallop, or rubs. No ectopy, No carotid bruits. Extremities: No edema, cyanosis or calf tenderness. Musculoskeletal: No joint swelling, deformity, or tenderness. ASSESSMENT / PLAN #1 Coronary Artery Disease With Stable Angina (HCC #2 Coronary Stent Status Post #3 Hypertensive Heart And Chronic Kidney Disease Without Heart Failure And With Stage 2 (Mild) Chronic Kidney Disease #4 Hyperlipidemia #5 Impaired Fasting Glucose #6 Abuse Tobacco Smoking #7 Personal History Of Malignant Neoplasm Of Bladder #8 Cyst Renal #9 Dysfunction Erectile Seven is a pleasant 69-year-old male with past medical history significant for coronary coronary artery disease with stable angina, history of coronary artery stenting, hypertension, CKD stage 2, impaired fasting glucose, abuse tobacco smoking, presents today for medication review, lab review, establish care with new provider, and to discuss erectile dysfunction. In regards to patient chronic medical comorbidities, and recent blood work, patient has been stable he has no signs of anemia, normal CBC, his sodium potassium and kidney function are stable, his hemoglobin A1c has improved now to 5.8. Patient and I discussed dietary modifications and importance of weight loss. Denies any shortness of breath or chest pain. He has been stable from cardiac standpoint. We also discussed importance of tobacco cessation. Patient is attempting to decrease smoking. The patient has recently lost his primary care provider in [place]. He is interested in establishing care with Internal Medicine in [place]. He does have a history of malignant neoplasm of the bladder which she has been following up with Dr. Hernandez is with no evidence of recurrence. His main concern today is erectile dysfunction issues. The patient states that at time he is able tohave an maintaining erection other times he is unable to. We discussed that some of his medications including the Imdur lisinopril and metoprolol all other associated with decreased libido or erectile issues. Although, low percentages. In addition, increased age, obesity, smoking, and impaired fastingglucose are all contributing factors. We will check lipid panel, testosterone level and PSA, and refer patient erectile dysfunction Clinic in [place]. Unfortunately, he is not a good candidate for Viagra Cialis or other phosphodiesterase type 5 inhibitors due to his cardiac history. - Testosterone, Total and Free; Future; Expected date: 10/19/2019 - Basic Metabolic Panel; Future; Expected date: 10/18/2020 (Before next visit) - Urology - Male - sexual dysfunction consult (clinic); Future; Expected date: 10/19/2019 (Semi Urg - F2F only) - CBC without Differential; Future; Expected date: 10/19/2019 - Lipid Panel; Future; Expected date: 10/19/2019 - PSA (Prostate-Specific Antigen), Diagnostic; Future; Expected date: 10/19/2019 Other orders - Community Internal Medicine office visit (clinic) - Community Internal Medicine office visit (clinic); Future; Expected date: 04/19/2020 - Community Internal Medicine office visit (clinic); Future; Expected date: 04/19/2020 Electronically signed by: Faiza Truong D.O. 10/19/19 5:10 PM CDT documented in this encounter Plan of Treatment Upcoming Encounters Date Type Specialty Care Team Description 04/12/2022 Office Visit Cardiovascular Disease Simone Gooden AP RN, C.N.P. [address] [place], [place] [phone] (Wo rk) Scheduled Referrals Name Type Priority Associated Diagnoses Order S chedule Urology - Male - Outpatient Referral Routine Dysfunction Erect ile Expected: sexual dysfunction 0 consult (clinic) (Approximat e), Expires: 10/18/2022 Community Internal Outpatient Referral Routine Ex pected: Medicine office 04/19/2020 visit (clinic) (Approximate) , Expires: 10/18/2022 documented as of this encounter Results PSA (Prostate-Specific Antigen), Diagnostic (04/17/2020 8:06 AM LEGAL TRANSCRIBER) P athologist Signature Prostate-Specif 1.9 <=6.5 ng/mL 04/17/2020 [place] ic Ag 10:59 AM LEGAL TRANSCRIBER Comment: Biotin has been identified by the heri garcia as a potential interfering substance. ??Higher concentr ations of biotin may be found in multivitamins, hair/nail supple ments, and workout supplements. ??If the result does not [facility] clinical observations, repeat testing after patient [...] (Blood, 04/17/2020 8:06 AM 04/17/20 20 Venous) LEGAL TRANSCRIBER 10:26 AM LEGAL TRANSCRIBER Faiza Truong D.O. LAB BLOOD ADD-ON Performing Organization Address City/State/ZIP Code Phon e Number [facility]- [address] [place] [address] [place] [address] System in [place] [address] [facility] Lipid Panel (04/17/2020 8:06 AM LEGAL TRANSCRIBER) athologist Signature Cholesterol, 107 mg/dL 04/17/2020 [facility] Total 10:47 AM LEGAL TRANSCRIBER Comment: ----REFERENCE VALUE---- Desirable: < 200 Borderline high: 200 - 239 High: > or = 240 Triglycerides 48 mg/dL 04/17/2020 10:47 AM LEGAL TRANSCRIBER [facility] Comment: ----REFERENCE VALUE---- Normal: <150 Borderline high: 150-199 High: 200-499 Very high: > or =500 Cholesterol, HDL 47 >=40 mg/dL 04/17/2020 10:47 AM CS T [facility] Calculated LDL 50 mg/dL 04/17/2020 10:47 AM LEGAL TRANSCRIBER O SARAH Comment: ----REFERENCE VALUE---- Desirable: <100 Above Desirable: 100-129 Borderline high: 130-159 High: 160-189 Very high: > or =190 Cholesterol, Non-HDL, Calculated 60 mg/dL 020 10:47 AM LEGAL TRANSCRIBER [facility] Comment: ----REFERENCE VALUE---- Desirable: <130 Above Desirable: 130-159 Borderline high: 160-189 High: 190-219 Very high: > or =220 Specimen Anatomical Collection Method Collection Time Receive d Time (Source) Location / / Volume Laterality Blood (Blood, 04/17/2020 8:06 AM 04/17/20 20 Venous) LEGAL TRANSCRIBER 10:26 AM LEGAL TRANSCRIBER Faiza Truong D.O. LAB BLOOD ADD-ON Performing Organization Address City/State/ZIP Code Phon e Number [facility]- [address] [place] [address] [facility] [place] [address] System in [place] [address] [facility] CBC without Differential (04/17/2020 8:06 AM LEGAL TRANSCRIBER) athologist Signature Hemoglobin 15.8 13.2 - 04/17/2020 FB60 16.6 g/dL 9:01 AM LEGAL TRANSCRIBER Hematocrit 47.2 38.3 - 04/17/2020 FB60 48.6 % 9:01 AM LEGAL TRANSCRIBER Erythrocytes 5.39 4.35 - 04/17/2020 FB60 5.65 9:01 AM LEGAL TRANSCRIBER x10(12)/L MCV 87.6 78.2 - 04/17/2020 FB60 97.9 fL 9:01 AM LEGAL TRANSCRIBER RBC Distrib Width 14.1 11.8 - 04/17/2020 FB60 14.5 % 9:01 AM LEGAL TRANSCRIBER Platelet Count 251 135 - 317 04/17/2020 FB60 x10(9)/L 9:01 AM LEGAL TRANSCRIBER Leukocytes 6.5 3.4 - 9.6 04/17/2020 FB60 x10(9)/L 9:01 AM LEGAL TRANSCRIBER Specimen Anatomical Collection Method Collection Time Receive d Time (Source) Location / / Volume Laterality Blood (Blood, 04/17/2020 8:06 AM 04/17/20 20 8:08 Venous) LEGAL TRANSCRIBER AM LEGAL TRANSCRIBER Faiza Truong D.O. LAB BLOOD ADD-ON Performing Organization Address City/State/ZIP Code Phon e Number [facility]- [address] [place] [address] [facility] [place] [address] Basic Metabolic Panel (04/17/2020 8:06 AM LEGAL TRANSCRIBER) P athologist Signature Potassium, P 5.0 3.6 - 5.2 04/17/2020 [place] mmol/L 10:47 AM LEGAL TRANSCRIBER Sodium, P 140 135 - 145 04/17/2020 [place] mmol/L 10:47 AM LEGAL TRANSCRIBER Chloride, P 103 98 - 107 04/17/2020 [place] mmol/L 10:47 AM LEGAL TRANSCRIBER Bicarbonate, P 29 22 - 29 04/17/2020 [place] mmol/L 10:47 AM LEGAL TRANSCRIBER Anion Gap, P 8 7 - 15 04/17/2020 [place] 10:47 AM LEGAL TRANSCRIBER BUN (Blood Urea 21 8 - 24 04/17/2020 [facility] Nitrogen), P mg/dL 10:47 AM LEGAL TRANSCRIBER Creatinine 1.07 0.74 - 04/17/2020 [place] 1.35 mg/dL 10:47 AM LEGAL TRANSCRIBER eGFR-Black/Afric 80 >=60 04/17/2020 [facility] an Ecuadorean mL/min/BSA 10:47 AM LEGAL TRANSCRIBER Comment: ----ADDITIONAL INFORMATION---- Estimated GFR calculated using the 2009 CKD_EPI creatinine equation. eGFR Non-Black/ 69 >=60 mL/min/BSA 04/17/2020 10:47 AM LEGAL TRANSCRIBER [facility] Comment: ----ADDITIONAL INFORMATION---- Estimated GFR calculated using the 2009 CKD_EPI creatinine equation. Calcium, Total, P 9.6 8.8 - 10.2 mg/dL 04/17/2020 10:4 7 AM LEGAL TRANSCRIBER [facility] Glucose, P 99 70 - 140 mg/dL 04/17/2020 10:47 AM LEGAL TRANSCRIBER [facility] Specimen Anatomical Collection Method Collection Time Receive d Time (Source) Location / / Volume Laterality Blood (Blood, 04/17/2020 8:06 AM 04/17/20 20 Venous) LEGAL TRANSCRIBER 10:26 AM LEGAL TRANSCRIBER Faiza Truong D.O. LAB BLOOD ADD-ON Performing Organization Address City/State/ZIP Code Phon e Number [facility]- [address] [place] [address] [facility] [place] [address] System in [place] [address] Testosterone, Total and Free (04/17/2020 8:06 AM LEGAL TRANSCRIBER) athologist Signature Testosterone, 12.1 3.28 - 12.2 04/19/2020 [facility] Free, S ng/dL 11:43 AM LEGAL TRANSCRIBER Comment: ----ADDITIONAL INFORMATION---- Testing performed by Mary Jane thomas This test was developed and its performa nce characteristics determined by [facility] in a manner consistent with CLIA requirements. This test has not been cleared or approved by the [place] d and Drug Administration. Testosterone, Total by Mass 576 240 - 950 ng/dL 2019 4:13 PM LEGAL TRANSCRIBER [facility] Spectrometry, Serum Comment: ----ADDITIONAL INFORMATION---- Testing performed by Liquid Chromatograp hy-Tandem Mass Spectrometry (LC-MS/MS). This test was developed and its performa nce characteristics determined by [facility] in a manner consistent with CLIA requirements. This test has not been cleared or approved by the [place] d and Drug Administration. Specimen Anatomical Collection Method Collection Time Receive d Time (Source) Location / / Volume Laterality Blood (Blood, 04/17/2020 8:06 AM 04/18/20 6:36 Venous) LEGAL TRANSCRIBER AM LEGAL TRANSCRIBER Faiza Truong D.O. LAB BLOOD NON ADD-ON Performing Organization Address City/State/ZIP Code Phon e Number [facility] [address] [place], [place] [address] [address] [facility] [place] [place] [address] Laboratory Medicine and Pathology [address] [place] documented in this encounter Visit Diagnoses Diagnosis Dysfunction Erectile - Primary Coronary Artery Disease With Stable Gladis na (HCC) Coronary Stent Status Post Hypertensive Heart And Chronic Kidney Di sease Without Heart Failure And With Stage 2 (Mild) Chronic Kidney Disease Hyperlipidemia Impaired Fasting Glucose Abuse Tobacco Smoking Personal History Of Malignant Neoplasm O f Bladder Cyst Renal documented in this encounter Additional Health Concerns Assessment Noted Time PHQ-9 Depression Total Score: 12 04/16/2019 9:45 AM CS T documented as of this encounter Care Teams Fast Food Assistant Restaurant Manager Relationship Specialty Start Date End Date Faiza Truong D.O. PCP - General Internal Medicine 10/19/[address] [phone] documented as of this encounter
--- OUTSIDE RECORDS SUMMARY | 2022-03-29 07:46 | XMS_ITS | Encounter Summary ---
:1950 Author Organization [facility] Address [address] [place] [address] Care Team Providers Name Role Phone Faiza Truong D.O. Primary Care Provider [phone] Encounter Details Date Type Department Care Team Description 03/06/2020 Ancillary Procedure Department of Urology Social History [...] week 04/16/2019 How often do you attend restorationist or religion services? Never 04/16/2019 Do you belong to any clubs or organizations such as restorationist N o 04/16/2019 groups, unions, fraternal or [...] at Date Recorded Male 06/28/2019 8:47 AM [employer] OPERATOR documented as of this encounter Plan of Treatment Upcoming Encounters Date Type Specialty Care Team Description 04/12/2022 Office Visit Cardiovascular Disease Simone Gooden AP RN, C.N.P. [address] [phone] (Wo rk) documented as of this encounter Procedures Procedure Name Priority Date/Time Associated Diagnosis Comme nts UROLOGY IMAGE EXAM Routine 03/06/2020 9:25 AM Res ults for this [employer] OPERATOR procedure are i n the results section. documented in this encounter Results CYSTOSCOPY-Urology Image Exam (03/06/2020 9:25 AM [employer] OPERATOR) Specimen (Source) Anatomical Collection Method Collection Time Re ceived Time Location / / Volume Laterality 03/06/2020 10:16 AM [employer] OPERATOR Narrative [facility] - 03/06/2020 9:25 AM [employer] OPERATOR This order has been created and auto-finalized [...] documented as of this encounter Care Teams Real Property Appraiser Relationship Specialty Start Date End Date Faiza Truong D.O. PCP - General Internal Medicine 10/19/19 [address] [place] [phone] documented as of this encounter
--- OUTSIDE RECORDS SUMMARY | 2022-03-29 07:46 | XMS_ITS | Encounter Summary ---
:1950 Author Organization [facility] Address [address] [place] [address] Care Team Providers Name Role Phone Faiza Truong D.O. Primary Care Provider [phone] Reason for Referral Outpatient (Routine) - Closed Specialty Diagnoses / Procedures Referred By Contact Refer red To Contact Diagnoses Malignant Neoplasm Of Bladder (HCC) Postprocedural Bulbous Urethral Stricture Male Jatinder Camejo M.D. [facility] [place] [facility] Procedures Cystoscopy (specific provider) [address] [place] [phone] Referral ID Status Reason Start Date Expiration Date Visits Requ ested Visits Authorized [id number] Closed 03/06/2020 03/06/2021 1 1 LINING BANDER Reason for Visit Reason Comments Bladder Cancer 4 month no concerns today Follow-up Outpatient (Routine) - Closed Specialty Diagnoses / Procedures Referred By Contact Refer red To Contact Diagnoses Malignant Neoplasm Of Bladder (HCC) Postprocedural Bulbous Urethral Stricture Male Jatinder Camejo M.D. [facility] [place] [facility] Procedures Cystoscopy (specific provider) [address] [place] [address] [phone] Referral ID Status Reason Start Date Expiration Date Visits Requ ested Visits Authorized [id number] Closed 11/01/2019 10/31/2020 1 1 Encounter Details Date Type Department Care Team Description 03/06/2020 Procedure visit Department of Sneiders, Malignant N eoplasm Of Bladder (HCC); Urology in Jatinder White M.D. Postprocedural Bulbous Urethral Strictur e Male [place] [address] [facility] [place] [phone] Social History Tobacco Use Types Packs/Day Years [...] How often do you attend scientologist or church services? Never 04/16/2019 Do you [...] at Date Recorded Male 06/28/2019 8:47 AM BAND LINING BANDER documented as of this encounter Last Filed Vital Signs Vital Sign Reading Time Taken Comments Blood Pressure - - Pulse 72 03/06/2020 8:41 AM BAND LINING BANDER Temperature 36.6 ??C (97.9 ??F) 03/06/2020 8:41 AM BAND LINING BANDER Respiratory Rate - - Oxygen Saturation 97% 03/06/2020 8:41 AM BAND LINING BANDER Inhaled Oxygen Concentration - - Weight - - Height - - Body Mass Index - - documented in this encounter Procedure Notes Jatinder Camejo M.D. - 03/06/2020 8:45 AM CST Signed INDICATION: ??Bladder cancer surveillance ?? February 2010:??Initial [...] for malignancy, Mitomycin C given. Last cystoscopy: ?? November 01, 2019, negative. ?? Urine cytology dated February 28, 2020 was atypical. ? INSTRUMENT: ??Flexible cystourethroscope. ANESTHESIA: ??2% aqueous lidocaine jelly introduced into the urethra. ?? PROCEDURE: ??The patient was placed in a supine position. ??The genitalia were prepped and draped sterilely. ??The urethra was anesthetized with 2% aqueous lidocaine jelly. ??The cystoscope was advanced into the urethra. ?? FINDINGS: ?? Meatus: ??Normal. ?? Urethra: ??notable for urethral stricture not requiring dilation,??stricture calibrate to approximately 14-16??Indonesian.?This was dilated by passage of the cystoscope. [...] concern are visualized. Essentially unchanged from prior cystoscopy. ?? The procedure was well tolerated by the patient. ? He was discharged from the office in satisfactory condition. ??Post-cystoscopy instructions were reviewed with him. ?? IMPRESSION: ?1.??History of transitional cell carcinoma the urinary bladder, low-grade and superficial. ??No cystoscopic, urine cytology was atypical. 2. Bulbous urethral stricture, postprocedural, stable?? Plan: 1. Repeat urine cytology 2. If the next urine cytology is atypical, repeat was 1 more time. 3. Bladder cancer surveillance in 4 months to include cystoscopy and cytology. Electronically signed by: Jatinder Camejo M.D. 03/06/20 9:24 AM BAND LINING BANDER LINING BANDER documented in this encounter Plan of Treatment Upcoming Encounters Date Type Specialty Care Team Description 04/12/2022 Office Visit Cardiovascular Disease Simone Gooden AP RN, C.N.P. [address] [phone] (Wo rk) documented as of this encounter Procedures Procedure Name Priority Date/Time Associated Diagnosis Comme nts CYTOLOGY NON-SECURITY ALARM INSTALLER Routine 03/06/2020 9:27 AM Malignant Neoplasm Results for this BAND LINING BANDER Of Bladder (HCC) procedure are in Postprocedural the results Bulbous Urethral section. Stricture Male documented in this encounter Results Cytology Non-SECURITY ALARM INSTALLER (Scheduled) (07/06/2020 10:30 AM BAND LINING BANDER) Component Value Ref Test Analysis Performed At [facility] Range Method Time Signature 07/11/2020 [facility] 1:52 PM BAND LINING BANDER Fixative 50% reagent 07/11/2020 [facility] alcohol 1:52 PM BAND LINING BANDER Report Azeb Gustafson MD 07/11/2020 [facility] electronically I verify that I have examined all relevant slides/ma terials 1:52 PM BAND LINING BANDER signed by for the specimen(s) and rendered or confirmed the diagnosis. Gross Description 100 ml of 07/11/2020 [facility] clear, anderson 1:52 PM BAND LINING BANDER yellow alcohol fixed fluid received. Collection urine, clean 07/11/2020 [facility] Procedure catch 1:52 PM BAND LINING BANDER Source A. Urine, 07/11/2020 [facility] Clean Catch, 1:52 PM BAND LINING BANDER voided Clinical History Malignant 07/11/2020 [facility] Neoplasm Of 1:52 PM BAND LINING BANDER Bladder Interpretation A. 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 1:52 PM BAND LINING BANDER Specimen Anatomical Collection Method Collection Time Receive d Time (Source) Location / / Volume Laterality Varies (Urine, 07/06/2020 10:30 1 6:42 Clean Catch) AM BAND LINING BANDER AM BAND LINING BANDER Narrative This result has an attachment that is no t available. Jatinder Camejo M.D. LAB SURG PATH ORDERABLES Performing Organization Address City/State/ZIP Code Phon e Number [facility]- [address] CYTOLOGY [facility] [address] Cytology [address] [place] [address] Cytology Non-SECURITY ALARM INSTALLER (03/06/2020 9:27 AM BAND LINING BANDER) Component Value Ref Test Analysis Performed At [facility] gist Range Method Time Signature 03/07/2020 [facility] 10:42 AM BAND LINING BANDER Fixative none 03/07/2020 [facility] 10:42 AM BAND LINING BANDER Report Miroslava LEXY Weems. Ch.B. 03/07/2020 [facility] electronically I verify that I have examined all relevant slides/ma terials 10:42 AM signed by for the specimen(s) and rendered or confirmed the diagnosis. BAND LINING BANDER Gross Description Received 80 03/07/2020 [facility] ml of pale 10:42 AM yellow BAND LINING BANDER alcohol fixed fluid Collection Voided 03/07/2020 [facility] Procedure 10:42 AM BAND LINING BANDER Source A. Urine, 03/07/2020 [facility] voided 10:42 AM BAND LINING BANDER Clinical History Bladder 03/07/2020 [facility] Cancer 10:42 AM BAND LINING BANDER Interpretation A. Urine, voided (cytospin): Negative for High-Grade 03/07/2020 [facility] Urothelial Carcinoma. 10:42 AM BAND LINING BANDER Specimen Anatomical Collection Method Collection Time Receive d Time (Source) Location / / Volume Laterality Varies 03/06/2020 9:27 AM 0 7:05 BAND LINING BANDER AM BAND LINING BANDER Narrative This result has an attachment that is no t available. Jatinder Camejo M.D. LAB SURG PATH ORDERABLES Performing Organization Address City/State/ZIP Code Phon e Number [facility]- [address] [place] [address] [place] [address] [facility] Cytology [address] [facility] documented in this encounter Visit Diagnoses Diagnosis Malignant Neoplasm Of Bladder (HCC) Postprocedural Bulbous Urethral Strictur e Male documented in this encounter Additional Health Concerns Assessment Noted Time PHQ-9 Depression Total Score: 12 04/16/2019 9:45 AM CS T documented as of this encounter Care Teams Drug Enforcement Agent Relationship Specialty Start Date End Date Faiza Truong D.O. PCP - General Internal Medicine 10/19/19 [address] [place] [phone] documented as of this encounter
--- OUTSIDE RECORDS SUMMARY | 2022-03-29 07:46 | XMS_ITS | Encounter Summary ---
:1950 Author Organization [facility] Address [address] [place] [address] Care Team Providers Name Role Phone Faiza Truong D.O. Primary Care Provider [phone] Reason for Referral Outpatient (Routine) - Closed Specialty Diagnoses / Procedures Referred By Contact Refer red To Contact Diagnoses Malignant Neoplasm Of Bladder (HCC) Postprocedural Bulbous Urethral Stricture Male Jatinder Camejo M.D. [facility] Procedures Cystoscopy (specific provider) [address] [place] [phone] Referral ID Status Reason Start Date Expiration Date Visits Requ ested Visits Authorized [id number] Closed 11/01/2019 10/31/2020 1 1 Reason for Visit Reason Comments Bladder Cancer 4 month cystoscopy no concer ns today Outpatient (Routine) - Canceled Specialty Diagnoses / Procedures Referred By Contact Refer red To Contact Diagnoses Malignant Neoplasm Of Bladder (HCC) [facility]. [facility] Procedures Cystoscopy (specific provider) [address] [place] [phone] Referral ID Status Reason Start Date Expiration Date Visits V isits Requested Authorized [id number] Canceled 06/28/2019 06/27/2020 1 1 Encounter Details Date Type Department Care Team Description 11/01/2019 Procedure visit Department of Sneiders, Malignant N eoplasm Of Bladder (HCC); Urology in Jatinder White M.D. Postprocedural Bulbous Urethral Strictur e Male [place] [address] [facility] [place] [phone] Social History Tobacco Use Types Packs/Day Years [...] How often do you attend jainism or yazidism services? Never 04/16/2019 Do you [...] at Date Recorded Male 06/28/2019 8:47 AM NURSE CASE MANAGER documented as of this encounter Last Filed Vital Signs Vital Sign Reading Time Taken Comments Blood Pressure - - Pulse 65 11/01/2019 8:03 AM CDT Temperature 36.6 ??C (97.9 ??F) 11/01/2019 8:03 AM CDT Respiratory Rate - - Oxygen Saturation 97% 11/01/2019 8:03 AM CDT Inhaled Oxygen Concentration - - Weight - - Height - - Body Mass Index - - documented in this encounter Procedure Notes Jatinder Camejo M.D. - 11/01/2019 8:15 AM CDT INDICATION: ??Bladder cancer surveillance ?? February 2010:??Initial [...] for malignancy, Mitomycin C given. Last cystoscopy: June 28, 2019, negative. Urine cytology dated October 26, 2019 is negative. ? INSTRUMENT: ??Flexible cystourethroscope. ANESTHESIA: ??2% [...] stricture not requiring dilation,??stricture calibrate to approximately 14-16??Yakut.?This was dilated by passage of the cystoscope. [...] the urinary bladder, low-grade and superficial. ??No cystoscopic or urine cytology evidence of recurrent disease. 2. Bulbous urethral stricture, postprocedural, stable ? PLAN:?Repeat bladder cancer surveillance to include cystoscopy and urine cytology in 4 months. Electronically signed by: Jatinder Camejo M.D. 11/01/19 8:17 AM CDT documented in this encounter Plan of Treatment Upcoming Encounters Date Type Specialty Care Team Description 04/12/2022 Office Visit Cardiovascular Disease Simone Gooden AP RN, C.N.P. [address] [phone] (Wo rk) documented as of this encounter Results (ABNORMAL) Cytology Non-DEBURRING MACHINE OPERATOR (Scheduled) (02/28/2020 8:05 AM CDT) Component Value Ref Test Analysis Performed At [facility] Range Method Time Signature 02/29/2020 [facility] (A) 2:14 PM CDT Fixative 50% Alcohol 02/29/2020 [facility] (A) 2:14 PM CDT Report Azeb Gustafson MD 02/29/2020 [facility] electronically I verify that I have examined all relevant slides/ma terials 2:14 PM CDT signed by for the specimen(s) and rendered or confirmed the diagnosis. (A) Gross Description Received 100 02/29/2020 [facility] ml of yellow 2:14 PM CDT alcohol fixed fluid (A) Collection Urine (A) 02/29/2020 [facility] Procedure 2:14 PM CDT Source A. Urine, 02/29/2020 [facility] Clean Catch, 2:14 PM CDT voided (A) Clinical History Unknown (A) 02/29/2020 [facility] 2:14 PM CDT Interpretation A. Urine, Clean Catch, voided (cytospin): Atypical 02/29/2020 [facility] urothelial cells. 2:14 PM CDT (A) Specimen Anatomical Collection Method Collection Time Receive d Time (Source) Location / / Volume Laterality Varies (Urine, 02/28/2020 8:05 AM 020 7:22 Clean Catch) CDT AM CDT Narrative This result has an attachment that is no t available. Jatinder Camejo M.D. LAB SURG PATH ORDERABLES Performing Organization Address City/State/ZIP Code Phon e Number [facility]- [facility] [place] [address] [facility] [place] [address] [facility] Cytology [address] [place] [address] documented in this encounter Visit Diagnoses Diagnosis Malignant Neoplasm Of Bladder (HCC) Postprocedural Bulbous Urethral Strictur e Male documented in this encounter Additional Health Concerns Assessment Noted Time PHQ-9 Depression Total Score: 12 04/16/2019 9:45 AM CS T documented as of this encounter Care Teams Robot Technician Relationship Specialty Start Date End Date Faiza Truong D.O. PCP - General Internal Medicine 10/19/[address] [phone] documented as of this encounter
--- OUTSIDE RECORDS SUMMARY | 2022-03-29 07:46 | XMS_ITS | Encounter Summary ---
:1950 Author Organization [facility] Address [address] [place] [address] Care Team Providers Name Role Phone Leta Sanchez M.D. Primary Care Provider Encounter Details Date Type Department Care Team Description 06/28/2019 Ancillary Procedure Department of Urology Social History [...] How often do you attend mu-ism or temple services? Never 04/16/2019 Do you belong to [...] at Date Recorded Male 06/28/2019 8:47 AM SINTER PRESS OPERATOR documented as of this encounter Plan of Treatment Upcoming Encounters Date Type Specialty Care Team Description 04/12/2022 Office Visit Cardiovascular Disease Simone Gooden, KELLY RN, C.N.P. [address] [phone] (Wo rk) documented as of this encounter Procedures Procedure Name Priority Date/Time Associated Diagnosis Comme nts UROLOGY IMAGE EXAM Routine 06/28/2019 6:40 AM Res ults for this SINTER PRESS OPERATOR procedure are i n the results section. documented in this encounter Results CYSTOSCOPY-Urology Image Exam (06/28/2019 6:40 AM SINTER PRESS OPERATOR) Specimen (Source) Anatomical Collection Method Collection Time Re ceived Time Location / / Volume Laterality 06/28/2019 6:37 AM SINTER PRESS OPERATOR Narrative [facility] - 06/28/2019 9:08 AM SINTER PRESS OPERATOR This order has been created and [...] documented as of this encounter Care Teams Enamel Drier Relationship Specialty Start Date End Date Leta Sanchez M.D. PCP - General 10/17/16 10/18/19 documented as of this encounter
--- OUTSIDE RECORDS SUMMARY | 2022-03-29 07:46 | XMS_ITS | Encounter Summary ---
:1950 Author Organization [facility] Address [address] [place] [address] Care Team Providers Name Role Phone Leta Sanchez M.D. Primary Care Provider Encounter Details Date Type Department Care Team Description 10/15/2019 Hospital Encounter Department of Leta Sanchez, Coronary Artery Disease With Stable Angina (HCC); Laboratory Medicine [place] Hypertensive Heart And Chronic Kidney Di sease Without Heart Failure And With Stage 2 (Mild) Chronic Kidney Disease; in [address] High Risk Med ication; [facility], [facility] 204 Hyperlipidemia; [address] [facility], [place] Impaired Fasting Glucose; [place] [address] Elevated Sedimentation Rate [phone] Social History Tobacco Use Types Packs/Day [...] week 04/16/2019 How often do you attend orthodox or rastafarian services? 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 isosorbide dinitrate Take 1 tablet (10 mg [...] Cardiovascular Disease Simone Gooden AP RN, C.N.P. [address] [place], [place] [phone] (Wo rk) documented as of this encounter Procedures Procedure Name Priority Date/Time Associated Diagnosis Comme nts SEDIMENTATION RATE, B Routine 10/15/2019 3:36 Elevated Res ults for this PM CDT Sedimentation Ra te procedure are in High Risk Medication the res ults section. CBC WITHOUT Routine 10/15/2019 3:36 Coronary Artery Results f or this DIFFERENTIAL, B PM CDT Disease With Stable proce dure are in Angina (HCC) the results Hypertensive Heart section. And Chronic Kidney Disease Without Heart Failure And With Stage 2 (Mild) Chronic Kidney Disease High Risk Medication C-REACTIVE PROTEIN Routine 10/15/2019 3:36 Elevated Result s for this (CRP), S/P PM CDT Sedimentation Ra te procedure are in High Risk Medication the res ults section. ALANINE AMINOTRANSFERASE Routine 10/15/2019 3:36 Coronary Rosita ry Results for this (ALT), S/P PM CDT Disease With Stable procedur e are in Angina (HCC) the results Hypertensive Heart section. And Chronic Kidney Disease Without Heart Failure And With Stage 2 (Mild) Chronic Kidney Disease Hyperlipidemia High Risk Medication ASPARTATE Routine 10/15/2019 3:36 Coronary Artery Results f or this AMINOTRANSFERASE (AST), PM CDT Disease With Stab le procedure are in S/P Angina (HCC) the results Hypertensive Heart section. And Chronic Kidney Disease Without Heart Failure And With Stage 2 (Mild) Chronic Kidney Disease Hyperlipidemia High Risk Medication HEMOGLOBIN A1C, B Routine 10/15/2019 3:36 Impaired Fasting Res ults for this PM CDT Glucose procedure are in High Risk Medication the res ults section. CREATINE KINASE (CK), S Routine 10/15/2019 3:36 Coronary Arter y Results for this PM CDT Disease With Stable procedur e are in Angina (HCC) the results Hypertensive Heart section. And Chronic Kidney Disease Without Heart Failure And With Stage 2 (Mild) Chronic Kidney Disease Hyperlipidemia High Risk Medication BASIC METABOLIC PANEL, Routine 10/15/2019 3:36 Coronary Artery Results for this S/P PM CDT Disease With Stable procedur e are in Angina (HCC) the results Hypertensive Heart section. And Chronic Kidney Disease Without Heart Failure And With Stage 2 (Mild) Chronic Kidney Disease High Risk Medication documented in this encounter Results Sedimentation Rate (10/15/2019 3:36 PM CDT) Analysis Performed At Patho logist Time Signature Sedimentation 19 0 - 22 10/15/2019 FB[facility] Rate, B mm/1 h 4:14 PM CDT Specimen Anatomical Collection Method Collection Time Receive d Time (Source) Location / / Volume Laterality Blood (Blood, 10/15/2019 3:36 PM 10/15/19 20 3:37 Venous) CDT PM CDT Leta Sanchez M.D. LAB BLOOD ADD-ON Performing Organization Address City/State/ZIP Code Phon e Number [facility] [address] [place] [address] [facility] [place] [address] System [address] (ABNORMAL) CRP (C-Reactive Protein) (10/15/2019 3:36 PM CDT) athologist Signature C-Reactive 13.6 (H) <=8.0 mg/L 10/15/2019 [facility] Protein (CRP), 6:05 PM CDT Specimen Anatomical Collection Method Collection Time Receive d Time (Source) Location / / Volume Laterality Blood (Blood, 10/15/2019 3:36 PM 10/15/19 20 5:51 Venous) CDT PM CDT Leta Sanchez M.D. LAB BLOOD ADD-ON Performing Organization Address City/State/ZIP Code Phon e Number [facility]- [address] [place] [address] [facility] [address] System in [place] [address] (ABNORMAL) Hemoglobin A1c (10/15/2019 3:36 PM CDT) athologist Signature Hemoglobin A1c, 5.8 (H) 4.2 - 5.6 10/15/2019 [facility] B % 6:08 PM CDT Comment: Hemoglobin A1c values of 5.7-6.4 percent indicate an increased risk for developing diabetes m ellitus. In diabetic patients, HbA1c goals should be discussed with healthcare provider. Specimen Anatomical Collection Method Collection Time Receive d Time (Source) Location / / Volume Laterality Blood (Blood, 10/15/2019 3:36 PM 10/15/19 20 5:51 Venous) CDT PM CDT Phunt Phyo M.D. LAB BLOOD ADD-ON Performing Organization Address City/State/ZIP Code Phon e Number [facility]- [address] [place] [address] [facility] [place] [address] System in [place] [address] CK (Creatine Kinase) (10/15/2019 3:36 PM CDT) P athologist Signature Creatine 104 39 - 308 10/15/2019 [facility] Kinase, P U/L 9:47 PM CDT Specimen Anatomical Collection Method Collection Time Receive d Time (Source) Location / / Volume Laterality Blood (Blood, 10/15/2019 3:36 PM 10/15/19 20 9:34 Venous) CDT PM CDT Phunt Phyo M.D. LAB BLOOD ADD-ON Performing Organization Address City/State/ZIP Code Phon e Number [facility]- [address] [place] [address] [facility] [address] [facility] [address] ALT (Alanine Aminotransferase) (10/15/2019 3:36 PM CDT) Patholo gist Method Time Signature Alanine 17 7 - 55 10/15/2019 [facility] Aminotransferase U/L 6:05 PM CDT (ALT), P Specimen Anatomical Collection Method Collection Time Receive d Time (Source) Location / / Volume Laterality Blood (Blood, 10/15/2019 3:36 PM 10/15/19 20 5:51 Venous) CDT PM CDT Phunt Phyo M.D. LAB BLOOD ADD-ON Performing Organization Address City/State/ZIP Code Phon e Number [facility]- [address] [place] [address] [facility] [address] System in [place] [address] [facility] AST (Aspartate Aminotransferase) (10/15/2019 3:36 PM CDT) Patholo gist Method Time Signature Aspartate 30 8 - 48 10/15/2019 [facility] Aminotransferase U/L 6:05 PM CDT (AST), P Specimen Anatomical Collection Method Collection Time Receive d Time (Source) Location / / Volume Laterality Blood (Blood, 10/15/2019 3:36 PM 10/15/19 20 5:51 Venous) CDT PM CDT Leta Sanchez M.D. LAB BLOOD ADD-ON Performing Organization Address City/State/ZIP Code Phon e Number [facility]- [address] [place] [address] [facility] [address] System in [place] [address] [facility] Basic Metabolic Panel (10/15/2019 3:36 PM CDT) P athologist Signature Potassium, P 4.4 3.6 - 5.2 10/15/2019 [facility] mmol/L 6:05 PM CDT Sodium, P 135 135 - 145 10/15/2019 [facility] mmol/L 6:05 PM CDT Chloride, P 99 98 - 107 10/15/2019 [facility] mmol/L 6:05 PM CDT Bicarbonate, P 25 22 - 29 10/15/2019 [facility] mmol/L 6:05 PM CDT Anion Gap, P 11 7 - 15 10/15/2019 [facility] 6:05 PM CDT BUN (Blood Urea 20 8 - 24 10/15/2019 [facility] Nitrogen), P mg/dL 6:05 PM CDT Creatinine 0.91 0.74 - 10/15/2019 [facility] 1.35 mg/dL 6:05 PM CDT eGFR-Black/Afric >90 >=60 10/15/2019 [facility] an [place]ican mL/min/BSA 6:05 PM CDT Comment: ----ADDITIONAL INFORMATION---- Estimated GFR calculated using the 2009 CKD_EPI creatinine equation. eGFR Non-Black/ 85 >=60 mL/min/BSA 6:05 PM CDT [facility] Comment: ----ADDITIONAL INFORMATION---- Estimated GFR calculated using the 2009 CKD_EPI creatinine equation. Calcium, Total, P 9.4 8.8 - 10.2 mg/dL 10/15/2019 6:05 PM CDT [facility] Glucose, P 100 70 - 140 mg/dL 10/15/2019 6:05 PM CDT O SARAH Specimen Anatomical Collection Method Collection Time Receive d Time (Source) Location / / Volume Laterality Blood (Blood, 10/15/2019 3:36 PM 10/15/19 20 5:51 Venous) CDT PM CDT Leta Sanchez M.D. LAB BLOOD ADD-ON Performing Organization Address City/State/ZIP Code Phon e Number [facility]- [address] [place] [address] [place] [place] [address] System in [place] [address] (ABNORMAL) CBC without Differential (10/15/2019 3:36 PM CDT) [facility] gist Method Time Signature Hemoglobin 14.9 13.2 - 10/15/2019 FB60 16.6 g/dL 4:05 PM CDT Hematocrit 44.6 38.3 - 10/15/2019 FB60 48.6 % 4:05 PM CDT Erythrocytes 5.09 4.35 - 10/15/2019 FB60 5.65 4:05 PM CDT x10(12)/L MCV 87.6 78.2 - 10/15/2019 FB60 97.9 fL 4:05 PM CDT RBC Distrib Width 14.7 (H) 11.8 - 10/15/2019 FB60 14.5 % 4:05 PM CDT Platelet Count 229 135 - 317 10/15/2019 FB60 x10(9)/L 4:05 PM CDT Leukocytes 9.7 (H) 3.4 - 9.6 10/15/2019 FB60 x10(9)/L 4:05 PM CDT Specimen Anatomical Collection Method Collection Time Receive d Time (Source) Location / / Volume Laterality Blood (Blood, 10/15/2019 3:36 PM 10/15/19 20 3:37 Venous) CDT PM CDT Leta Sanchez M.D. 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 PCP - General 10/17/16 10/18/19 documented as of this encounter
--- OUTSIDE RECORDS SUMMARY | 2022-03-29 07:46 | XMS_ITS | Encounter Summary ---
:1950 Author Organization [facility] Address [address] [place] [address] Care Team Providers Name Role Phone Leta Sanchez M.D. Primary Care Provider Encounter Details Date Type Department Care Team Description 07/14/2019 Clinical Communication Department of Urology Jatinder Camejo in [place], [place] M.D. [address] [place] [address] [place], [place] [phone] Social History Tobacco Use Types Packs/Day Years [...] week 04/16/2019 How often do you attend orthodoxy or zoroastrian services? 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 - 07/14/2019 3:46 PM CDT Patient was called back, rescheduled non motivational speaker 07/13/19 to 07/20/19 in [facility]. Telephone Encounter - Tania Booker - 07/14/2019 1:34 PM CDT Reason for Communication: Patient is calling to schedule labs that he was informed that Dr. Galvan placed, but there is nothing to schedule for labs in active requests. Current Can Nursing/Provider leave a detailed message: Action Needed: Please review and call back patient. Name of Medication (if relevant): documented in this encounter Plan of Treatment Upcoming Encounters Date Type Specialty Care Team Description 04/12/2022 Office Visit Cardiovascular Disease Simone Gooden AP RN, C.N.P. [address] [place] [phone] (Wo rk) documented as of this encounter Visit Diagnoses Not on filedocumented in this encounter Additional Health Concerns Assessment Noted Time PHQ-9 Depression Total Score: 12 04/16/2019 9:45 AM CS T documented as of this encounter Care Teams Wrapper Operator Relationship Specialty Start Date End Date Leta Sanchez M.D. PCP - General 10/17/16 10/18/19 documented as of this encounter
--- OUTSIDE RECORDS SUMMARY | 2022-03-29 07:46 | XMS_ITS | Encounter Summary ---
:1950 Author Organization [facility] Address [address] [place] [address] Care Team Providers Name Role Phone Faiza Truong D.O. Primary Care Provider [phone] Reason for Visit Reason Comments Med Refill Encounter Details Date Type Department Care Team Description 01/11/2020 Refill Department of Cardiovascular Simone Gooden APRN, Med Refill Diseases in [place], [place] C.N.P. [address] [place] [address] [place], [place] [phone] (Wo rk) Social History Tobacco Use [...] How often do you attend yarsani or voodoo services? 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 [address] [phone] (Wo rk) documented as of this encounter Visit Diagnoses Not on filedocumented in this encounter Additional Health Concerns Assessment Noted Time PHQ-9 Depression Total Score: 12 04/16/2019 9:45 AM CS T documented as of this encounter Care Teams Electric Meter Technician Relationship Specialty Start Date End Date Faiza Truong D.O. PCP - General Internal Medicine 10/19/[address]199 [address] [phone] documented as of this encounter
--- OUTSIDE RECORDS SUMMARY | 2022-03-29 07:46 | XMS_ITS | Encounter Summary ---
:1950 Author Organization [facility] Address [address] [place] [address] Care Team Providers Name Role Phone Leta Sanchez M.D. Primary Care Provider Encounter Details Date Type Department Care Team Description 07/20/2019 Hospital Encounter Department of Dawna Camejo Neoplasm Of Laboratory Medicine Javid Tobias Bladder Lateral Wall in [place], [address] ([facility]) [address] [phone] [phone] Social History Tobacco Use Types Packs/Day Years [...] week 04/16/2019 How often do you attend taoism or christian services? 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 albuterol sulfate 90 Inhale 2 puffs 4 1 each 7 02/13/2021 mcg/actuation aerosol (four) times a [...] and another 6 hr apart at noon. lisinopriL TAKE 1 TABLET BY 90 tablet [...] Simone Gooden AP RN, C.N.P. [address] [place], [place] [phone] (Wo rk) documented as of this encounter Procedures Procedure Name Priority Date/Time Associated Diagnosis Comme nts CYTOLOGY NON-WAISTLINE JOINER LOCKSTITCH Routine 07/20/2019 2:03 PM Malignant Neoplasm Results for this (SCHEDULED) CDT Of Bladder Lateral procedure are in Wall (HCC) the results section. documented in this encounter Results Cytology Non-WAISTLINE JOINER LOCKSTITCH (Scheduled) (07/20/2019 2:03 PM CDT) Component Value Ref Test Analysis Performed At [facility] gist Range Method Time Signature 07/21/2019 [facility] 2:07 PM CDT Fixative Yes 07/21/2019 [facility] 2:07 PM CDT Report Azeb Gustafson MD 07/21/2019 [facility] electronically I verify that I have examined all relevant slides/ma terials 2:07 PM CDT signed by for the specimen(s) and rendered or confirmed the diagnosis. Gross Description Received 80 07/21/2019 [facility] ml of yellow 2:07 PM CDT alcohol fixed fluid Collection voided 07/21/2019 [facility] Procedure 2:07 PM CDT Source A. Urine, 07/21/2019 [facility] voided 2:07 PM CDT Clinical History C67.2 07/21/2019 [facility] 2:07 PM CDT Interpretation A. Urine, voided (cytospin): Negative for High-Grade 07/21/2019 [facility] Urothelial Carcinoma. 2:07 PM CDT Specimen Anatomical Collection Method Collection Time Receive d Time (Source) Location / / Volume Laterality Varies (Urine, 07/20/2019 2:03 PM 020 8:37 Clean Catch) CDT AM CDT Narrative This result has an attachment that is no t available. Jatinder Camejo M.D. 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 PCP - General 10/17/16 10/18/19 documented as of this encounter
--- OUTSIDE RECORDS SUMMARY | 2022-03-29 07:46 | XMS_ITS | Encounter Summary ---
:1950 Author Organization [facility] Address [address] [place] [address] Care Team Providers Name Role Phone Leta Sanchez M.D. Primary Care Provider Reason for Visit Reason Comments Med Refill Encounter Details Date Type Department Care Team Description 07/21/2019 Refill Department of [facility] Ambrosio Sanchez M.D. Med Refill Internal Medicine in [address] [place] [address], [facility] [address] [place] [address] 300 [facility] [place] [address] Social History Tobacco Use Types [...] How often do you attend voodoo or sikhism services? 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 04/05/2019 #90 3 refills documented in this encounter Plan of Treatment Upcoming Encounters Date Type Specialty Care Team Description 04/12/2022 Office Visit Cardiovascular Disease Simone Gooden AP RN, C.N.P. [address] [phone] (Wo rk) documented as of this encounter Visit Diagnoses Not on filedocumented in this encounter Additional Health Concerns Assessment Noted Time PHQ-9 Depression Total Score: 04/16/2019 9:45 AM CS T documented as of this encounter Care Teams Resin Filterer Relationship Specialty Start Date End Date Leta Sanchez M.D. PCP - General 10/17/16 10/18/19 documented as of this encounter
--- OUTSIDE RECORDS SUMMARY | 2022-03-29 07:46 | XMS_ITS | Encounter Summary ---
:1950 Author Organization [facility] Address [address] [place] [address] Care Team Providers Name Role Phone Leta Sanchez M.D. Primary Care Provider Encounter Details Date Type Department Care Team Description 06/29/2019 Orders Only Department of Urology Jatinder Camejo Mal ignant Neoplasm Of in Mame Tirado M.D. Bladder Lateral Wall [address] (HCC) (Primary Dx) [place] [address] [address] [place] [phone] [phone] Social History Tobacco Use Types Packs/Day [...] How often do you attend gnosticism or mu-ism services? 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 [address] [place] [phone] (Wo rk) documented as of this encounter Results Cytology Non-SOCIAL SCIENCE TEACHER (Scheduled) (07/20/2019 2:03 PM CDT) Component Value Ref Test Analysis Performed At [facility] gist Range Method Time Signature 07/21/2019 [facility] 2:07 PM CDT Fixative Yes 07/21/2019 [facility] 2:07 PM CDT Report Azeb Gustafson MD [...] Urine, voided (cytospin): Negative for High-Grade 07/21/2019 [facility] Urothelial Carcinoma. 2:07 PM CDT Specimen Anatomical Collection Method Collection Time Receive d Time (Source) Location / / Volume Laterality Varies (Urine, 07/20/2019 2:03 PM 020 8:37 Clean Catch) CDT AM CDT Narrative This result has an attachment that is no t available. Jatinder Camejo M.D. 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 PCP - General 10/17/16 10/18/19 documented as of this encounter
--- OUTSIDE RECORDS SUMMARY | 2022-03-29 07:46 | XMS_ITS | Encounter Summary ---
:1950 Author Organization [facility] Address [address] [place] [address] Care Team Providers Name Role Phone Faiza Truong D.O. Primary Care Provider [phone] Encounter Details Date Type Department Care Team Description 10/26/2019 Hospital Encounter Department of Dawna Camejo Neoplasm Of Laboratory Medicine Javid Tobias Bladder (HCC) in [facility] [address] [place] [address] [address] [place] [phone] Social History Tobacco Use Types Packs/Day Years [...] How often do you attend gnosticism or alevism services? 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 [address] [phone] (Wo rk) documented as of this encounter Procedures Procedure Name Priority Date/Time Associated Diagnosis Comme nts CYTOLOGY NON-CLOUD SECURITY ARCHITECT Routine 10/26/2019 11:02 AM Malignant Neoplas m Results for this (SCHEDULED) CDT Of Bladder (HCC) procedure a re in the results section. documented in this encounter Results Cytology Non-CLOUD SECURITY ARCHITECT (Scheduled) (10/26/2019 11:02 AM CDT) Component Value Ref Test Analysis Performed At [facility] gist Range Method Time Signature 10/27/2019 [facility] 9:24 AM CDT Fixative 50% Reagent 10/27/2019 [facility] Alcohol 9:24 AM CDT Report Oh Varma MD 10/27/2019 [facility] electronically I verify that I have examined all relevant slides/ma terials 9:24 AM CDT signed by for the specimen(s) and rendered or confirmed the diagnosis. Gross Description Received 80 10/27/2019 [facility] of yellow 9:24 AM CDT alcohol fixed fluid Collection Urine Void 10/27/2019 [facility] Procedure 9:24 AM CDT Source A. Urine, 10/27/2019 [facility] voided 9:24 AM CDT Clinical History C67.9 10/27/2019 [facility] 9:24 AM CDT Interpretation A. Urine, voided (cytospin): Negative for High-Grade 10/27/2019 [facility] Urothelial Carcinoma. 9:24 AM CDT Specimen Anatomical Collection Method Collection Time Receive d Time (Source) Location / / Volume Laterality Varies (Urine, 10/26/2019 11:02 0 6:39 Clean Catch) AM CDT AM CDT Narrative This result has an attachment that is no t available. Jatinder Camejo M.D. LAB SURG PATH ORDERABLES Performing Organization Address City/State/ZIP Code Phon e Number [facility] [address] [place] [address] [facility] [place] [address] [facility] [address] [facility] documented in this encounter Visit Diagnoses Diagnosis Malignant Neoplasm Of Bladder (HCC) documented in this encounter Additional Health Concerns Assessment Noted Time PHQ-9 Depression Total Score: 12 04/16/2019 9:45 AM CS T documented as of this encounter Care Teams Jointer Machine Operator Relationship Specialty Start Date End Date Faiza Truong D.O. PCP - General Internal Medicine 10/19/[address] [phone] documented as of this encounter
--- OUTSIDE RECORDS SUMMARY | 2022-03-29 07:46 | XMS_ITS | Encounter Summary ---
:1950 Author Organization [facility] Address [address] [place] [address] Care Team Providers Name Role Phone Leta Sanchez M.D. Primary Care Provider Encounter Details Date Type Department Care Team Description 06/14/2019 Hospital Encounter Department of Leta Sanchez M.D. Imbalance Non Orthopedic; Radiology in [address] [place] Bronchitis Chr onic (HCC); Romi Thibodeaux, [place] [address] Tobacco Use [address] [address] JAYNA THIBODEAUX [phone] [address] (Fax) [phone] Social History Tobacco Use Types Packs/Day Years [...] week 04/16/2019 How often do you attend methodist or jain services? 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 isosorbide dinitrate Take 1 tablet (10 mg 180 tablet 3 04/1604/21/2020 (ISORDIL) 10 mg total) by mouth 2 tabletIndications: (two) times a day. Coronary Artery Disease Take 1 tablet in the With Stable Angina (HCC) morning and another 6 hr apart at noon. lisinopril Take 1 tablet (20 mg 90 tablet 3 06/14/2019 03/0 09/2019 (PRINIVIL,ZESTRIL) 20 mg total) by mouth tablet every morning. metoprolol succinate Take 1 tablet (25 [...] Simone Gooden AP RN, C.N.P. [address] [phone] (Wo rk) documented as of this encounter Procedures Procedure Name Priority Date/Time Associated Comments Diagnosis DX CHEST AP OR PA RAD - Routine 06/14/2019 4:29 Imbalance Non Resul ts for this AND LATERAL 2 (most inpatients PM CUSTOMS INSPECTOR Orthopedic procedure are in VIEWS and all Bronchitis the results outpatients) Chronic (HCC) section. Tobacco Use documented in this encounter Results DX Chest AP or PA and Lateral 2 Views (06/14/2019 4:29 PM CUSTOMS INSPECTOR) Anatomical Region Laterality Modality Chest, Thoracic RST LOS, Thoracic ARZ LOS, Thoracic N/A Digital Radiography FLA LOS Specimen (Source) Anatomical Collection Method Collection Time Re ceived Time Location / / Volume Laterality 06/14/2019 4:40 PM CUSTOMS INSPECTOR Impressions 06/14/2019 4:42 PM CUSTOMS INSPECTOR IMPRESSION: Chronic changes. No evidence of acute cardiopulmonary process. Narrative 06/14/2019 4:42 PM CUSTOMS INSPECTOR EXAM: DX CHEST AP OR PA AND LATERAL 2 VIEWS COMPARISON: Plain film images of the [facility] dated March 02, 2018, September 21, 2017, March 21, 2017. FINDINGS: The heart is normal in size. N o evidence of pneumothorax or pleural effusion. Previous bilateral shoulder ar throdesis. There are spondylitic changes throughout and these are greater in the lower thoracic spine toward the right. Suggestion of a large body habitus. Procedure Note Monserrat Coates M.D. - 06/14/2019Forma tting of this note might be different from the original. EXAM: DX CHEST AP OR PA AND LATERAL 2 EWS COMPARISON: Plain film images of the [facility] dated March 02, 2018, September 21, 2017, March 21, 2017. FINDINGS: The heart is normal in size. N o evidence of pneumothorax or pleural effusion. Previous bilateral shoulder ar throdesis. There are spondylitic changes throughout and these are greater in the lower thoracic spine toward the right. Suggestion of a large body habitus. IMPRESSION: IMPRESSION: Chronic changes. No evidenc e of acute cardiopulmonary process. Leta Sanchez M.D. IMG DIAGNOSTIC IMAGING PROCE DIMITRIOS documented in this encounter Visit Diagnoses Diagnosis Imbalance Non Orthopedic Bronchitis Chronic (HCC) Tobacco Use documented in this encounter Additional Health Concerns Assessment Noted Time PHQ-9 Depression Total Score: 12 04/16/2019 9:45 AM CS T documented as of this encounter Care Teams Corporate Development Associate Relationship Specialty Start Date End Date Leta Sanchez M.D. PCP - General 10/17/16 10/18/19 documented as of this encounter
--- OUTSIDE RECORDS SUMMARY | 2022-03-29 07:47 | XMS_ITS | Encounter Summary ---
:[address] [facility] Address [address] [place] [address] Care Team Providers Name Role Phone Leta Sanchez M.D. Primary Care Provider Reason for Visit Reason Onset Date Comments R knee swelling 01/13/2019 Encounter Details Date Type Department Care Team Description 01/13/2019 Clinical Department of Physical Brendan, Denny Hutchins kn ee swelling Communication Medicine and D.O. [place] in [id number] [place] [address] [place] [phone] Social History Tobacco Use Types Packs/Day Years [...] week 04/16/2019 How often do you attend congregation or voodoo services? Never 04/16/2019 Do you belong to any clubs or organizations such as congregation N o 04/16/2019 groups, unions, fraternal or [...] or getting things needed for daily living? 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 - 01/13/2019 10:22 AM CDT See previous note Telephone Encounter - Tania Booker - 01/13/2019 8:20 AM CDT Reason for Communication: Patient called in with concerns of swelling within his R knee. Patient is wanting to see Dr. Cardona for this concern. Needing an order to schedule off of. Patient has previously seen Dr. Cardona. Current Can Nursing/Provider leave a detailed message: Action Needed: Please place order and advise when ready for scheudling. Name of Medication (if relevant): documented in this encounter Plan of Treatment Upcoming Encounters Date Type Specialty Care Team Description 04/12/2022 Office Visit Cardiovascular Disease Simone Gooden AP RN, C.N.P. [address] [phone] (Wo rk) documented as of this encounter Visit Diagnoses Not on filedocumented in this encounter Additional Health Concerns Assessment Noted Time PHQ-9 Depression Total Score: 18 06/23/2018 8:30 AM CS T documented as of this encounter Care Teams Appraiser Real Estate Relationship Specialty Start Date End Date Leta Sanchez M.D. PCP - General 10/17/16 10/18/19 documented as of this encounter
--- OUTSIDE RECORDS SUMMARY | 2022-03-29 07:47 | XMS_ITS | Encounter Summary ---
:1950 Author Organization [facility] Address [address] [place] [address] Care Team Providers Name Role Phone Leta Sanchez M.D. Primary Care Provider Encounter Details Date Type Department Care Team Description 12/17/2018 Nurse Triage Department of [facility] Jeri James , [facility], [facility], R.N. in [place], [place] [address] [place] [address] [place] [address] [place] [address] [phone] Social History Tobacco Use Types Packs/Day Years [...] How often do you attend gnosticist or temple services? 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 [address] [phone] (Wo rk) documented as of this encounter Visit Diagnoses Not on filedocumented in this encounter Additional Health Concerns Assessment Noted Time PHQ-9 Depression Total Score: 18 06/23/2018 8:30 AM CS T documented as of this encounter Care Teams Pasteurizing Machine Operator Relationship Specialty Start Date End Date Leta Sanchez M.D. PCP - General 10/17/16 10/18/19 documented as of this encounter
--- OUTSIDE RECORDS SUMMARY | 2022-03-29 07:47 | XMS_ITS | Encounter Summary ---
:1950 Author Organization [facility] Address [address] [place] [address] Care Team Providers Name Role Phone Leta Sanchez M.D. Primary Care Provider Reason for Referral Medication Prior Authorization (Routine) - Closed Specialty Diagnoses / Procedures Referred By Contact Refer red To Contact Leta Sanchez M.D. [address], [facility] [address] [place] [address] Referral ID Status Reason Start Date Expiration Date Visits Requ ested Visits Authorized [id number] Closed TRONIC SCANNER OPERATOR Encounter Details Date Type Department Care Team Description 04/16/2019 Clinical Communication Department of Gareth Sanchez M.D. Community Internal [address]os, [facility] in [address] [facility] [id number] [place] [phone] Social History Tobacco Use Types Packs/Day [...] week 04/16/2019 How often do you attend caodaism or sikh services? 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 - 04/16/2019 12:12 PM ELECTRONIC SCANNER OPERATOR SUBJECTIVE CHIEF COMPLAINT / REASON FOR CALL No chief complaint on file. Information Discussed Called and spoke with pharmacist at [facility]. Informed her of the typo and that their was a new prescription on the way. PLAN Disposition/Recommendation: fill script with a #7 Information/Education: patient/caller able to teach back Caller agreeable to plan of care: yes The following references were used: provider Laura TRONIC SCANNER OPERATOR Telephone Encounter - Leta Sanchez M.D. - 04/16/2019 12:09 PM CST Please call. It should be 7 tablets. Not 77 tablets. It was typo error. I sent a new prescription. TRONIC SCANNER OPERATOR Telephone Encounter - Gerardo Couch - 04/16/2019 11:25 AM CST Reason for Communication: [facility] in [place] called in. They have questions regarding the recent script for prednisone. The quantity prescribed does not make sense with the directions given. Current Can Nursing/Provider leave a detailed message: Did the patient refuse triage through Nurse line? (for symptom based concerns): Action Needed: Please call [facility] [place] back and advise. Name of Medication (if relevant): Prednisone TRONIC SCANNER OPERATOR documented in this encounter Plan of Treatment Upcoming Encounters Date Type Specialty Care Team Description 04/12/2022 Office Visit Cardiovascular Disease Simone Gooden AP RN, C.N.P. [address] [phone] (Wo rk) documented as of this encounter Visit Diagnoses Not on filedocumented in this encounter Additional Health Concerns Assessment Noted Time PHQ-9 Depression Total Score: 12 04/16/2019 9:45 AM CS T documented as of this encounter Care Teams Insulation Cutter And Former Relationship Specialty Start Date End Date Leta Sanchez M.D. PCP - General 10/17/16 10/18/19 documented as of this encounter
--- OUTSIDE RECORDS SUMMARY | 2022-03-29 07:47 | XMS_ITS | Encounter Summary ---
:1950 Author Organization [facility] Address [address] [place] [address] Care Team Providers Name Role Phone Leta Sanchez M.D. Primary Care Provider Reason for Referral Outpatient (Routine) - Closed Specialty Diagnoses / Procedures Referred By Contact Refer red To Contact Cardiovascular Disease Diagnoses PAR Simone Gooden [facility] MACHINE OPERATOR, C.N.P. [address] [place] [address] Referral ID Status Reason Start Date Expiration Date Visits Requ ested Visits Authorized [id number] Closed 01/11/2019 01/11/2020 1 1 Reason for Visit Reason Comments Coronary Artery Disease Outpatient (Routine) - Closed Specialty Diagnoses / Procedures Referred By Contact Refer red To Contact Cardiovascular Disease Diagnoses PAR REVIEW Salomón Ruiz [facility] Procedures CVD EST LONG M.DBhavesh [address] [place] [address] Referral ID Status Reason Start Date Expiration Date Visits Requ ested Visits Authorized [id number] Closed 08/07/2018 08/07/2019 1 1 Encounter Details Date Type Department Care Team Description 01/11/2019 Office Visit Department of Simone Gooden Arter y Disease With Stable Angina (HCC) (Primary Dx); Cardiovascular Diseases Andrez, MACHINE OPERATOR, Abus e Tobacco Smoking; in [facility] gopal C.N.P. Hyperlipidemia; [address] NW Hypertensive Heart And Chron ic Kidney Disease Without Heart Failure And With Stage 2 (Mild) Chronic Kidney Disease JAYNA WHITE [phone] [phone] JAYNA White [phone] Social History Tobacco Use Types Packs/Day Years [...] How often do you attend moravian or sikh services? 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 - 01/11/2019 11:00 AM CDT SUBJECTIVE CHIEF COMPLAINT/REASON FOR VISIT Coronary artery disease HISTORY OF PRESENT ILLNESS Seven Salazar seen today to follow-up on his underlying coronary artery disease. This is my 1st time meeting him, he had been followed by Dr. Ruiz with his most recent visit August 07, 2018. His history of heart disease dates back to March of 2017. He had been following with his primary care physician for abdominal pain and as part of that evaluation is sounds like he had an ECG and a troponin. The ECG was abnormal along with an abnormal troponin and he was told to go to the emergency room.He was subsequently sent to [facility] in [place] with a significantly elevated troponin and ST-T changes in the inferior leads on his ECG. His coronary angiogram showed obstructive disease in the LAD, RCA and circumflex. He received PTCA and stenting to the RCA and circumflex on March 22, 2019and he was brought back to the [facility] on March 24, 2019 where he received stenting to the LAD. He did well on medical therapy until July of 2017 when he presented with symptoms concerning for unst able angina and was hospitalized. He had a repeat coronary angiogram showing diffuse coronary arthrosclerosis but no focal stenosis. He was diagnosed with the NSTEMI in the setting of influenza A (he ultimately tested positive for influenza A after he became febrile). He had some chest pain symptoms and underwent a stress test in March 2018 this showed a small area of ischemia in the apex (stress test done at [facility]). When he saw Dr. Ruiz in March of 2018 for follow-up, medical management was recommended. He had been intolerant of Imdur due to headaches but was switched to isosorbide dinitrate and has tolerated it well since. He has had very little anginal symptoms since the 2018. He does report two occasions in the last month where he used to sublingual nitroglycerin. Both times he experienced the same ???heaviness?? in his chest and bothtimes required two sublingual nitroglycerin to resolve the symptom. He had been essentially at rest during these episodes, but was at work. He works at [employer] and states that he walks about 6 miles during his shift. He has not been experiencing any exertional symptoms. Since the time of his episodes of chest heaviness, he has had no recurrence and has maintained at least a moderate level of physicalactivity without any new symptoms. He denies lightheadedness, dizziness, palpitations, PND, orthopnea or new lower extremity edema. He is an active tobacco user but reports he is still trying to quit. He states he has smoked about four cigarettes in the last eight days. He has continued on dual anti-platelet therapy without any side effects. He has been followed by Urology for bladder cancer but has had no recent problems with bleeding. MEDICATIONS Current Outpatient Medications: ??? albuterol sulfate 90 mcg/actuation aerosol powdr breath activated, Inhale 2 puffs 4 (four) timesa day as needed (for shortness of breath and wheezing- Use with spacer chamber.)., Disp: 1 each, Rfl: 11 ??? aspirin 81 mg chewable tablet, Chew 81 mg daily., Disp: , Rfl: ??? atorvastatin (LIPITOR) [...] noon., Disp: 180 tablet, Rfl: 3 ??? lisinopril (PRINIVIL,ZESTRIL) 20 mg tablet, Take 1 tablet (20 mg total) by mouth every morning.,Disp: 90 tablet, Rfl: 3 ??? metoprolol succinate (TOPROL-XL) 25 mg 24 hr tablet, Take 1 tablet (25 mg total) by mouth at bedtime., Disp: 90 tablet, Rfl: 3 ??? nitroglycerin (for_NITROSTAT) 0.4 mg SL tablet, Place 0.4 mg under the tongue every 5 (five) minutes as needed for chest pain. Place 1 tab under the tongue at first sign of chest pain. If no reliefin 5 min, call 911. Repeat dose every 5 min up to 2 additional doses if chest pain continues., Disp:, Rfl: ??? traZODone (DESYREL) 50 mg tablet, Take 1 tablet (50 mg total) by mouth at bedtime as needed for sleep., Disp: , Rfl: ALLERGIES Allergies Allergen Reactions ??? Bupropion [...] Disease (Unspecified) 06/12/2017 ??? Coronary Artery Disease [place] 06/12/2017 ??? Corticosteroid Treatment Help Desk Intern Systemic 03/14/2017 ??? Cyst Renal 02/05/2016 ??? [...] 2 (Mild) Chronic Kidney Disease 03/31/2017 ??? Insomnia 08/26/2016 ??? Lipoma Skin 02/12/2010 [...] Reflux Esophageal 12/24/2011 ??? Seizure Partial Complex ([facility]) 03/23/2004 ??? 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 Stroke ([facility]) 03/23/2004 Past Surgical History: [...] 1 of 3 OBJECTIVE VITAL SIGNS BP 126/64 (BP Location: Right arm, Patient Position: Sitting, Cuff Size: Large) Pulse (!) 56 Resp 20 Wt 95.4 kg BMI 31.88 kg/m?? PHYSICAL EXAMINATION GENERAL: Well-developed male in no acute distress, alert and oriented x3 VESSELS: No JVD HEART: Regular rate, regular rhythm with occasional ectopy. Normal S1-S2. No murmurs LUNGS: Diminished in the bases bilaterally. 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 He had two episodes of chest pain in the last six months and they were somewhat atypical. He has otherwise maintained at least a moderate level of exertional capacity without any exertional symptoms in the last six months. Encourage ongoing lifestyle modification and secondary prevention. His greatest risk factor for recurrent vascular disease is his ongoing tobacco use. I strongly encouraged complete cessation. His blood pressure appears to be well controlled in the clinic, I do not think we need to make any additional medication changes. He is on high-dose, high-intensity statin therapy and will be due for a lipid panel next month.This has been ordered by his primary care physician already. He knows to remain on low-dose aspirin indefinitely. We will plan to see him back again in six months for follow-up, sooner if needed. He is educated on what types of symptoms to look out for with regard to progressive or unstable angina. He states he knows when to seek emergency care. documented in this encounter Plan of Treatment Upcoming Encounters Date Type Specialty Care Team Description 04/12/2022 Office Visit Cardiovascular Disease Simone Gooden, KELLY RN, C.N.P. [address] [phone] (Wo rk) Scheduled Referrals Name Type Priority Associated Order Schedule Diagnoses Cardiovascular Disease Outpatient Referral Routine Expected: office visit (clinic) 2019 (Approximate), Expires: 01/11/2022 documented as of this encounter Visit Diagnoses Diagnosis Coronary Artery Disease With Stable Gladis na (HCC) - Primary Abuse Tobacco Smoking Hyperlipidemia Hypertensive Heart And Chronic Kidney Di sease Without Heart Failure And With Stage 2 (Mild) Chronic Kidney Disease documented in this encounter Additional Health Concerns Assessment Noted Time PHQ-9 Depression Total Score: 18 06/23/2018 8:30 AM CS T documented as of this encounter Care Teams Registered Representative Relationship Specialty Start Date End Date Leta Sanchez M.D. PCP - General 10/17/16 10/18/19 documented as of this encounter
--- OUTSIDE RECORDS SUMMARY | 2022-03-29 07:47 | XMS_ITS | Encounter Summary ---
:1950 Author Organization [facility] Address [address] [place] [address] Care Team Providers Name Role Phone Leta Sanchez M.D. Primary Care Provider Encounter Details Date Type Department Care Team Description 12/02/2018 Hospital Encounter Department of Gil Cardona, Pain Kn ee Bilateral Radiology in [place], [address] [place], [place] [address] [address] [facility] [place] [phone] (Work) [phone] Social History Tobacco Use Types Packs/Day Years [...] How often do you attend sikhism or restorationist services? 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 aspirin 81 mg chewable Chew 81 mg daily. 0 04/16/2019 tablet atorvastatin (LIPITOR) Take 1 tablet (80 mg 90 tablet 3 04/05/2019 80 mg tablet total) by mouth at bedtime. isosorbide dinitrate Take 1 tablet (10 mg 180 tablet 3 03/1604/16/2019 (ISORDIL) 10 mg tablet total) by mouth 2 (two) times a day. Take 1 tablet in the morning and another 6 hr apart at noon. lisinopril Take 1 tablet (20 mg 90 tablet 3 05/28/201806/05 (PRINIVIL,ZESTRIL) 20 mg total) by mouth tablet [...] chest pain continues. traZODone (DESYREL) 50 Take 1 tablet (50 mg 0 07/201804/16/2019 mg tabletIndications: total) by mouth at Depression Anxiety, bedtime as needed Insomnia for sleep. documented as of this encounter Plan of Treatment Upcoming Encounters Date Type Specialty Care Team Description 04/12/2022 Office Visit Cardiovascular Disease Simone Gooden AP RN, C.N.P. [address] [phone] (Wo rk) documented as of this encounter Procedures Procedure Name Priority Date/Time Associated Comments Diagnosis DX KNEE RIGHT 3 RAD - Routine 12/02/2018 4:47 Pain Knee Results for this VIEWS (most inpatients PM CDT Bilateral procedure a re in and all the results outpatients) section. documented in this encounter Results DX Knee Right 3 Views (12/02/2018 4:47 PM CDT) Anatomical Region Laterality Modality Lower Extremity, Knee, Musculoskeletal RST LOS, Right Digital Radiography Musculoskeletal ARZ LOS, Muskuloskeletal FLA LOS Specimen (Source) Anatomical Collection Method Collection Time Re ceived Time Location / / Volume Laterality 12/02/2018 4:49 PM CDT Impressions 12/02/2018 4:50 PM CDT Moderate right knee joint effusion or synovitis. Degenerative arthritis of the right knee with medial compartment joint space loss and tricompartmental spurring. Chondrocalcin osis. Vascular calcifications. Narrative 12/02/2018 4:50 PM CDT EXAM: DX KNEE RIGHT 3 VIEWS Procedure Note Rey Caceres M.D. - 12/02/2018For matting of this note might be different from the original. EXAM: DX KNEE RIGHT 3 VIEWS IMPRESSION: Moderate right knee joint effusion or sy novitis. Degenerative arthritis of the right knee with medial compartment joint space loss and tricompartmental spurring. Chondrocalcin osis. Vascular calcifications. Gil [facility] PROCE DIMITRIOS documented in this encounter Visit Diagnoses Diagnosis Pain Knee Bilateral documented in this encounter Additional Health Concerns Assessment Noted Time PHQ-9 Depression Total Score: 18 06/23/2018 8:30 AM CS T documented as of this encounter Care Teams Warehouse Distribution Associate Relationship Specialty Start Date End Date Leta Sanchez M.D. PCP - General 10/17/16 10/18/19 documented as of this encounter
--- OUTSIDE RECORDS SUMMARY | 2022-03-29 07:47 | XMS_ITS | Encounter Summary ---
:1950 Author Organization [facility] Address [address] [place] [address] Care Team Providers Name Role Phone Leta Sanchez M.D. Primary Care Provider Encounter Details Date Type Department Care Team Description 04/12/2019 Hospital Encounter Department of Leta Sanchez M.D. 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 [address] [place] [phone] (Wo rk) documented as of this encounter Procedures Procedure Name Priority Date/Time Associated Comments Diagnosis LIPID PANEL, S Routine 04/12/2019 8:01 Coronary Artery Results for this AM LIGHT ARMORED RECONNAISSANCE OFFICER Disease With Stable procedur e are in Angina (HCC) the results Hyperlipidemia section. SEDIMENTATION RATE, B Routine 04/12/2019 8:01 Hypertensive Hea rt Results for this AM LIGHT ARMORED RECONNAISSANCE OFFICER And Chronic Kidney procedure are in Disease Without the results Heart Failure And section. With Stage 2 (Mild) Chronic Kidney Disease 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HCC) CBC WITHOUT Routine 04/12/2019 8:01 Coronary Artery Results f or this DIFFERENTIAL, B AM LIGHT ARMORED RECONNAISSANCE OFFICER Disease With Stable proce dure are in Angina (HCC) the results Hypertensive Heart section. 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 Medication Hyperlipidemia ASPARTATE Routine 04/12/2019 8:01 Coronary Artery Results f or this AMINOTRANSFERASE (AST), AM LIGHT ARMORED RECONNAISSANCE OFFICER Disease With Stab le procedure are in S/P Angina (HCC) the results High Risk section. Medication Hyperlipidemia THYROID-STIMULATING Routine 04/12/2019 8:01 Coronary Artery Re sults for this HORMONE-SENSITIVE AM LIGHT ARMORED RECONNAISSANCE OFFICER Disease With Stable pro cedure are in (S-TSH) Angina (HCC) the results Hypertensive Heart section. 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 HEMOGLOBIN A1C, B Routine 04/12/2019 8:01 Coronary Artery Resu lts for this AM LIGHT ARMORED RECONNAISSANCE OFFICER Disease With Stable procedur e are in Angina (HCC) the results Hypertensive Heart section. 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 Medication Hyperlipidemia BASIC METABOLIC PANEL, Routine 04/12/2019 8:01 Coronary Artery Results for this S/P AM LIGHT ARMORED RECONNAISSANCE OFFICER Disease With Stable procedur e are in Angina (HCC) the results Hypertensive Heart section. 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 ??Higher concentr ations of biotin may be found in multivitamins, hair/nail supple ments, and workout supplements. ??If the result does not ma [facility] clinical observations, repeat testing after patient refrains [...] Location / / Volume Laterality Blood (Blood, 04/12/2019 8:01 AM 04/12/20 19 Venous) LIGHT ARMORED RECONNAISSANCE OFFICER 11:18 AM LIGHT ARMORED RECONNAISSANCE OFFICER Leta Sanchez M.D. LAB BLOOD ADD-ON Performing Organization Address City/[facility]/ZIP Code Phon e Number [facility]- [address] [place] [address] [place] [address] System in [place] [address] (ABNORMAL) Sedimentation Rate (04/12/2019 8:01 AM LIGHT ARMORED RECONNAISSANCE OFFICER) Patholo gist Method Time Signature Sedimentation 35 (H) 0 - 22 04/12/2019 FB60 Rate, B mm/1 h 9:32 AM LIGHT ARMORED RECONNAISSANCE OFFICER Specimen Anatomical Collection Method Collection Time Receive d Time (Source) Location / / Volume Laterality Blood (Blood, 04/12/2019 8:01 AM 04/12/20 19 8:01 Venous) LIGHT ARMORED RECONNAISSANCE OFFICER AM LIGHT ARMORED RECONNAISSANCE OFFICER Leta Sanchez M.D. LAB BLOOD ADD-ON Performing Organization Address City/[facility]/ZIP Code Phon e Number [facility]- [address] [place] [address] [facility] [place] [address] System in [place] [address] S-TSH (Thyroid-Stimulating Hormone - Sensitive) (04/12/2019 8:01 AM LIGHT ARMORED RECONNAISSANCE OFFICER) athologist Signature TSH, Sensitive 1.5 0.3 - 4.2 04/12/2019 OWAT mIU/L 12:24 PM LIGHT ARMORED RECONNAISSANCE OFFICER Comment: Biotin has been identified by the heri garcia as a potential interfering substance. ??Higher concentr ations of biotin may be found in multivitamins, hair/nail supple ments, and workout supplements. ??If the result does not ma tch clinical observations, repeat testing after patient refrains fr om the use of supplements for at least 12 hours. Specimen Anatomical Collection Method Collection Time Receive d Time (Source) Location / / Volume Laterality Blood (Blood, 04/12/2019 8:01 AM 04/12/20 19 Venous) LIGHT ARMORED RECONNAISSANCE OFFICER 11:18 AM LIGHT ARMORED RECONNAISSANCE OFFICER Leta Sanchez M.D. LAB BLOOD ADD-ON Performing Organization Address City/State/ZIP Code Phon e Number [facility]- [address] [place] [address] [facility] [address] System in [place] [address] [facility] Lipid Panel (04/12/2019 8:01 AM LIGHT ARMORED RECONNAISSANCE OFFICER) athologist Signature Cholesterol, 115 mg/dL 04/12/2019 OW[place] Total 12:58 PM LIGHT ARMORED RECONNAISSANCE OFFICER Comment: ----REFERENCE VALUE---- Desirable: < 200 Borderline high: 200 - 239 High: > or = 240 Triglycerides 66 mg/dL 04/12/2019 12:58 PM LIGHT ARMORED RECONNAISSANCE OFFICER OW AT Comment: ----REFERENCE VALUE---- Normal: <150 Borderline high: 150-199 High: 200-499 Very high: > or =500 Cholesterol, HDL, S 41 >=40 mg/dL 04/12/2019 12:58 PM LIGHT ARMORED RECONNAISSANCE OFFICER OWAT Calculated LDL 61 mg/dL 04/12/2019 12:58 PM LIGHT ARMORED RECONNAISSANCE OFFICER O SARAH Comment: ----REFERENCE VALUE---- Desirable: <100 Above Desirable: 100-129 Borderline high: 130-159 High: 160-189 Very high: > or =190 Cholesterol, Non-HDL, Calculated 74 mg/dL 019 12:58 PM LIGHT ARMORED RECONNAISSANCE OFFICER OWAT Comment: ----REFERENCE VALUE---- Desirable: <130 Above Desirable: 130-159 Borderline high: 160-189 High: 190-219 Very high: > or =220 Specimen Anatomical Collection Method Collection Time Receive d Time (Source) Location / / Volume Laterality Blood (Blood, 04/12/2019 8:01 AM 04/12/20 Venous) LIGHT ARMORED RECONNAISSANCE OFFICER 11:18 AM LIGHT ARMORED RECONNAISSANCE OFFICER Leta Sanchez M.D. LAB BLOOD ADD-ON Performing Organization Address City/State/ZIP Code Phon e Number [facility]- [address] [place] [address] [facility] [place] [address] System in [place] [address] (ABNORMAL) Hemoglobin A1c (04/12/2019 8:01 AM LIGHT ARMORED RECONNAISSANCE OFFICER) P athologist Signature Hemoglobin A1c, 6.0 (H) 4.2 - 5.6 04/12/2019 OW[place] B % 12:13 PM LIGHT ARMORED RECONNAISSANCE OFFICER Comment: Hemoglobin A1c values of 5.7-6.4 percent indicate an increased risk for developing diabetes m ellitus. In diabetic patients, HbA1c goals should be discussed with healthcare provider. Specimen Anatomical Collection Method Collection Time Receive d Time (Source) Location / / Volume Laterality Blood (Blood, 04/12/2019 8:01 AM 04/12/20 Venous) LIGHT ARMORED RECONNAISSANCE OFFICER 11:16 AM LIGHT ARMORED RECONNAISSANCE OFFICER Leta Sanchez M.D. LAB BLOOD ADD-ON Performing Organization Address City/State/ZIP Code Phon e Number [facility]- [address] [place] [address] [facility] [facility] [place] [address] System in [place] [address] CK (Creatine Kinase) (04/12/2019 8:01 AM LIGHT ARMORED RECONNAISSANCE OFFICER) P athologist Signature Creatine Kinase 78 39 - 308 04/12/2019 AUST (CK), S U/L 4:38 PM LIGHT ARMORED RECONNAISSANCE OFFICER Specimen Anatomical Collection Method Collection Time Receive d Time (Source) Location / / Volume Laterality Blood (Blood, 04/12/2019 8:01 AM 04/12/20 4:04 Venous) LIGHT ARMORED RECONNAISSANCE OFFICER PM LIGHT ARMORED RECONNAISSANCE OFFICER Phunt Phyo M.D. LAB BLOOD ADD-ON Performing Organization Address City/State/ZIP Code Phon e Number [facility]- [address] [place] [address] [facility] [place] [address] [facility] [address] ALT (Alanine Aminotransferase) (04/12/2019 8:01 AM LIGHT ARMORED RECONNAISSANCE OFFICER) [facility] gist Method Time Signature Alanine 14 7 - 55 04/12/2019 OW[place] Aminotransferase U/L 12:58 PM LIGHT ARMORED RECONNAISSANCE OFFICER (ALT), S Specimen Anatomical Collection Method Collection Time Receive d Time (Source) Location / / Volume Laterality Blood (Blood, 04/12/2019 8:01 AM 04/12/20 Venous) LIGHT ARMORED RECONNAISSANCE OFFICER 11:18 AM LIGHT ARMORED RECONNAISSANCE OFFICER Phunt Phyo M.D. LAB BLOOD ADD-ON Performing Organization Address City/[facility]/ZIP Code Phon e Number [facility]- [address] [place] [address] [place] [address] System in [place] [address] AST (Aspartate Aminotransferase) (04/12/2019 8:01 AM LIGHT ARMORED RECONNAISSANCE OFFICER) [facility] gist Method Time Signature Aspartate 22 8 - 48 04/12/2019 [place] Aminotransferase U/L 12:58 PM LIGHT ARMORED RECONNAISSANCE OFFICER (AST), S Specimen Anatomical Collection Method Collection Time Receive d Time (Source) Location / / Volume Laterality Blood (Blood, 04/12/2019 8:01 AM 04/12/20 Venous) LIGHT ARMORED RECONNAISSANCE OFFICER 11:18 AM LIGHT ARMORED RECONNAISSANCE OFFICER Phunt Phyo M.D. LAB BLOOD ADD-ON Performing Organization Address City/State/ZIP Code Phon e Number [facility]- [address] [place] [address] [place] [address] System in [place] [address] Basic Metabolic Panel (04/12/2019 8:01 AM LIGHT ARMORED RECONNAISSANCE OFFICER) P athologist Signature Potassium, S 4.3 3.6 - 5.2 04/12/2019 OW[place] mmol/L 12:58 PM LIGHT ARMORED RECONNAISSANCE OFFICER Sodium, S 137 135 - 145 04/12/2019 OWAT mmol/L 12:58 PM LIGHT ARMORED RECONNAISSANCE OFFICER Chloride, S 98 98 - 107 04/12/2019 OW[place] mmol/L 12:58 PM LIGHT ARMORED RECONNAISSANCE OFFICER Bicarbonate, S 29 22 - 29 04/12/2019 OW[place] mmol/L 12:58 PM LIGHT ARMORED RECONNAISSANCE OFFICER Anion Gap 10 7 - 15 04/12/2019 OWAT 12:58 PM LIGHT ARMORED RECONNAISSANCE OFFICER BUN (Blood Urea 16 8 - 24 04/12/2019 OWAT Nitrogen), S mg/dL 12:58 PM LIGHT ARMORED RECONNAISSANCE OFFICER Creatinine 0.90 0.74 - 04/12/2019 [place] 1.35 mg/dL 12:58 PM LIGHT ARMORED RECONNAISSANCE OFFICER eGFR-Non 86 >=60 04/12/2019 OWAT Black/ mL/min/BSA 12:58 PM LIGHT ARMORED RECONNAISSANCE OFFICER Jamaican Comment: ----ADDITIONAL INFORMATION---- Estimated GFR calculated using the 2009 CKD_EPI creatinine equation. eGFR-Black/ >90 >=60 mL/min/BSA 2018 12:58 PM LIGHT ARMORED RECONNAISSANCE OFFICER OW[place] Comment: ----ADDITIONAL INFORMATION---- Estimated GFR calculated using the 2009 CKD_EPI creatinine equation. Calcium, Total, S 9.9 8.8 - 10.2 mg/dL 04/12/2019 12:5 8 PM LIGHT ARMORED RECONNAISSANCE OFFICER OWAT Glucose, S 90 70 - 140 mg/dL 04/12/2019 12:58 PM LIGHT ARMORED RECONNAISSANCE OFFICER OWAT Specimen Anatomical Collection Method Collection Time Receive d Time (Source) Location / / Volume Laterality Blood (Blood, 04/12/2019 8:01 AM 04/12/20 19 Venous) LIGHT ARMORED RECONNAISSANCE OFFICER 11:18 AM LIGHT ARMORED RECONNAISSANCE OFFICER Leta Sanchez M.D. LAB BLOOD ADD-ON Performing Organization Address City/State/ZIP Code Phon e Number [facility]- [address] [place] [address] [place] [address] System in [place] [address] (ABNORMAL) CBC without Differential (04/12/2019 8:01 AM LIGHT ARMORED RECONNAISSANCE OFFICER) [facility] gist Method Time Signature Hemoglobin 15.6 13.2 - 04/12/2019 FB60 16.6 g/dL 9:19 AM LIGHT ARMORED RECONNAISSANCE OFFICER Hematocrit 48.5 38.3 - 04/12/2019 FB60 48.6 % 9:19 AM LIGHT ARMORED RECONNAISSANCE OFFICER Erythrocytes 5.47 4.35 - 04/12/2019 FB60 5.65 9:19 AM LIGHT ARMORED RECONNAISSANCE OFFICER x10(12)/L MCV 88.7 78.2 - 04/12/2019 FB60 97.9 fL 9:19 AM LIGHT ARMORED RECONNAISSANCE OFFICER RBC Distrib Width 14.1 11.8 - 04/12/2019 FB60 14.5 % 9:19 AM LIGHT ARMORED RECONNAISSANCE OFFICER Platelet Count 315 135 - 317 04/12/2019 FB60 x10(9)/L 9:19 AM LIGHT ARMORED RECONNAISSANCE OFFICER Leukocytes 10.6 (H) 3.4 - 9.6 04/12/2019 FB60 x10(9)/L 9:19 AM LIGHT ARMORED RECONNAISSANCE OFFICER Specimen Anatomical Collection Method Collection Time Receive d Time (Source) Location / / Volume Laterality Blood (Blood, 04/12/2019 8:01 AM 04/12/20 8:01 Venous) LIGHT ARMORED RECONNAISSANCE OFFICER AM LIGHT ARMORED RECONNAISSANCE OFFICER Leta Sanchez M.D. LAB BLOOD ADD-ON Performing Organization Address City/State/ZIP Code Phon e Number [address] [place] [address] [facility] [address] [place] [address] System [address] documented in this encounter Visit Diagnoses Diagnosis Coronary Artery Disease With Stable Gladis na (HCC) Hypertensive Heart And Chronic Kidney Di sease Without Heart Failure And With Stage 2 (Mild) Chronic Kidney Disease Hyperlipidemia High Risk Medication Malignant Neoplasm Of Bladder Lateral Wa ll (HCC) documented in this encounter Additional Health Concerns Assessment Noted Time PHQ-9 Depression Total Score: 18 06/23/2018 8:30 AM CS T documented as of this encounter Care Teams Coin Machine Collector Supervisor Relationship Specialty Start Date End Date Leta Sanchez M.D. PCP - General 10/17/16 10/18/19 documented as of this encounter
--- OUTSIDE RECORDS SUMMARY | 2022-03-29 07:47 | XMS_ITS | Encounter Summary ---
:1950 Author Organization [facility] Address [address] [place] [address] Care Team Providers Name Role Phone Leta Sanchez M.D. Primary Care Provider Encounter Details Date Type Department Care Team Description 12/28/2018 Clinical Communication Department of [facility] Leta Sanchez M.D. [address], [id number] [place] [phone] Social History Tobacco Use Types Packs/Day [...] How often do you attend scientologist or quaker services? 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 [address] [place], [place] [phone] (Wo rk) documented as of this encounter Visit Diagnoses Not on filedocumented in this encounter Additional Health Concerns Assessment Noted Time PHQ-9 Depression Total Score: 18 06/23/2018 8:30 AM CS T documented as of this encounter Care Teams Metal Refiner Relationship Specialty Start Date End Date Leta Sanchez M.D. PCP - General 10/17/16 10/18/19 documented as of this encounter
--- OUTSIDE RECORDS SUMMARY | 2022-03-29 07:47 | XMS_ITS | Encounter Summary ---
:1950 Author Organization [facility] Address [address] [place] [address] Care Team Providers Name Role Phone Leta Sanchez M.D. Primary Care Provider Reason for Visit Reason Comments Injection Visit bilateral knee with possible aspiration Outpatient (Routine) - Closed Specialty Diagnoses / Procedures Referred By Contact Refer red To Contact Diagnoses Pain Knee Bilateral Arthritis Knee Chondrocalcinosis Knee Left Gil Cardona, D.O. [facility] Region Procedures PMR Peripheral injection/USGI (Procedure Only) [id number] [place] [address] Referral ID Status Reason Start Date Expiration Date Visits Requ ested Visits Authorized [id number] Closed 12/02/2018 12/02/2019 1 1 Encounter Details Date Type Department Care Team Description 12/07/2018 Procedure visit Department of Gil Cardona Pain Knee Bilateral (Primary Dx); Physical Medicine and D.O. Arthritis Knee; [place] [address] Jas alcinosis Knee Left; [place], [place] Chondrocalcinosis Knee Right; [address] [place], [place] Swelling Knee Left; [place] [address] Swelling Knee Right [id number] Social History Tobacco Use Types Packs/Day [...] How often do you attend taoism or nondenominational services? 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 - 12/07/2018 11:15 AM CDT Follow-Up Plan: ?? __ Prescription medications: None ?? __ Weight loss ?? __ Referrals/labs/imaging/procedures/DME (orders): Proceed with ordered formal physical therapy and initiate home exercises for further treatment purposes; bilateral knee intra-articular aspirations/corticosteroid injections with ultrasound guidance completed in clinic today ?? __ Follow-up phone call: 2 weeks with results of pain log to review to determine appropriate furthermedical care moving forward ?? __ Follow-up clinic appointment: As needed at this time for further evaluation/medical care ?? __ Scheduling desk Post Procedure Home Care Instructions Activity: -Avoid strenuous activity for 24-48 hours -Return to work today if you feel comfortable doing so -Resume normal day to day activities and physical therapy/home exercises if applicable tomorrow -May shower, however no swimming, tub baths, or hot tubs for 24-48 hours following the procedure Pain: -May experience injection site soreness for 1-2 days -Use ice 20 minutes every hour as needed for the first 24-48 hours -Do not apply heat to the area -May use Acetaminophen up to 3-4 grams/day, Ibuprofen 3200 mg/day, or other pain medications as directed Common Side Effects: -Increased blood sugars in diabetic patients, flushed face, feeling of warmth, etc Contact Office: -Fevers, signs of infection (fevers, chills, redness, warmth, swelling, or draining), etc. -If you need immediate attention, recommend hospital emergency room evaluation or dialing 911 documented in this encounter Procedure Notes Gil Cardona D.O. - 12/07/2018 11:15 AM CDTAssociated Order(s): PMR Peripheral injection/USGI (Procedure Only): Bilat knee joint Pre-Procedure Diagnose(s): Pain Knee Bilateral; Arthritis Knee; Chondrocalcinosis Knee Left Post-Procedure Diagnose(s): Pain Knee Bilateral; Arthritis Knee; Chondrocalcinosis Knee Left Knee site- Bilat knee joint : aspiration and diagnostic-therapeutic injection Date/Time: 12/07/2018 11:10 AM Performed by: Gil Cardona D.O. Authorized by: Gil Cardona D.O. PROCEDURE DETAILS Pre procedure pain score: 2/10 Post procedure pain score: 0/10 Procedure Location knee Knee site: Bilat knee joint Patient position: supine Procedural approach: anterior Procedure performed: aspiration and diagnostic-therapeutic injection Needle gauge: 19 G, length: 2 in Image guidance Ultrasound The use of direct ultrasound visualization of the needle was required (rather than a non-guided injection) to ensure accurate injection delivery and to maximize clinical benefit beyond that obtained with a non-guided injection. Additionally, there can be diagnostic specificity when evaluating effectiveness of the injection, and for safety purposes to minimize risk of bleeding or injury to surroundingstructures. Images saved: yes Pre-procedure image guidance used to localize target and identify at risk structures, and plan approach and site was marked using indelible marker. Probe: linear high-frequency Needle approach: lateral to medial Ultrasound visualization: in-plane SPECIMENS Aspirate volume right (mL): 27, appearance: straw color Right aspirate sent for: no testing requested Aspirate volume left (mL): 69, appearance: straw color Left aspirate sent for: no testing requested Procedural Medication The following medications were administered at the target site(s) On the right: Local anesthetic: 4 mL ropivacaine (PF) 2 mg/mL (0.2 %) Corticosteroid: 40 mg methylPREDNISolone acetate 40 mg/mL On the left: Local anesthetic: 4 mL ropivacaine (PF) 2 mg/mL (0.2 %) Corticosteroid: 40 mg methylPREDNISolone acetate 40 mg/mL CONSENT Consent obtained: written PRE-PROCEDURE DETAILS Procedure purpose: therapeutic Skin preparation: chlorhexidine SEDATION / ANESTHESIA Anesthesia method: local infiltration Local infiltrate type: lidocaine POST-PROCEDURE DETAILS Procedure completed successfully: yes Complications: no apparent complications Post-procedure instructions: avoid strenuous activity for 2 days, avoid submersion of procedure sitefor 48 hours and post-procedure activity instructions provided documented in this encounter Plan of Treatment Upcoming Encounters Date Type Specialty Care Team Description 04/12/2022 Office Visit Cardiovascular Disease Simone Gooden AP RN, C.N.P. [address] [place] [address] [phone] (Wo rk) documented as of this encounter Procedures Procedure Name Priority Date/Time Associated Diagnosis Comme nts NV ARTHCS ASP/INJ Routine 12/07/2018 11:15 AM Pain Knee Bilateral Results for this [facility] JT W US CDT Arthritis Knee procedure are in Chondrocalcinosis the result s Knee Left section. documented in this encounter Results NV ARTHCS ASP/INJ [facility] JT W US (12/07/2018 11:15 AM CDT) Specimen (Source) Anatomical Location Collection Method / Collectio n Time Received Time / Laterality Volume Narrative MMODAL - 12/07/2018 11:15 AM CDT Gil Cardona D.O. ? 12/07/2018 12:20 PM Knee site- Bilat knee joint : aspiration and diagnostic-therapeutic injection Date/Time: 12/07/2018 11:10 AM Performed by: Gil Cardona D.O. Authorized by: Gil Cardona D.O. PROCEDURE DETAILS Pre procedure pain score: 2/10 Post procedure pain score: 0/10 Procedure Location knee Knee site: Bilat knee joint Patient position: supine Procedural approach: anterior Procedure performed: aspiration and diag nostic-therapeutic injection Needle gauge: 19 G, length: 2 in Image guidance Ultrasound The use of direct ultrasound visualizati on of the needle was required (rather than a non-guided injection) to ensure accurate injection delivery and to maximize clinical benefit beyond that obtained with a non-guided injection. ??Additionally, there can be diagnostic specificity when evaluating effectiveness of the injectio n, and for safety purposes to minimize risk of bleeding or injury to s urrounding structures. Images saved: yes Pre-procedure image guidance used to loc graciela target and identify at risk structures, and plan approach and site w as marked using indelible marker. Probe: linear high-frequency Needle approach: lateral to medial Ultrasound visualization: in-plane SPECIMENS Aspirate volume right (mL): 27, appearan ce: straw color Right aspirate sent for: no testing requ ested Aspirate volume left (mL): 69, appearanc e: straw color Left aspirate sent for: no testing reque sted Procedural Medication The following medications were administe red at the target site(s) On the right: Local anesthetic: 4 mL ropivacaine (PF) 2 mg/mL (0.2 %) Corticosteroid: 40 mg methylPREDNISolone acetate 40 mg/mL On the left: Local anesthetic: 4 mL ropivacaine (PF) 2 mg/mL (0.2 %) Corticosteroid: 40 mg methylPREDNISolone acetate 40 mg/mL CONSENT Consent obtained: written PRE-PROCEDURE DETAILS Procedure purpose: therapeutic Skin preparation: chlorhexidine SEDATION / ANESTHESIA Anesthesia method: local infiltration Local infiltrate type: lidocaine POST-PROCEDURE DETAILS Procedure completed successfully: yes Complications: no apparent complications ?? Post-procedure instructions: avoid stren uous activity for 2 days, avoid submersion of procedure site for 48 hour s and post-procedure activity instructions provided Gil Cardona D.O. PROCEDURE/MINOR SURGICAL ORD ERABLES Performing Organization Address City/State/ZIP Code Phon e Number MMODAL MMODAL NA documented in this encounter Visit Diagnoses Diagnosis Pain Knee Bilateral - Primary Arthritis Knee Chondrocalcinosis Knee Left Chondrocalcinosis Knee Right Swelling Knee Left Swelling Knee Right documented in this encounter Administered Medications Inactive Administered Medications - up to 3 most recent administrations Medication Order MAR Action Action Date Dose Rate Site methylPREDNISolone acetate Given 12/07/2018 11:10 AM CDT 40 mg injection 40 mg (DEPO-Medrol) 40 mg, intra-articular, One-Time Injection, Starting on Fri12/07/18 at 1110, For 1 dose methylPREDNISolone acetate injection 40 mg Given 12/07/2018 11:1 0 AM CDT 40 mg (DEPO-Medrol) 40 mg, intra-articular, One-Time Injection, Starting on Fri12/07/18 at 1110, For 1 dose ropivacaine (PF) 2 mg/mL (0.2 %) injection 4 Given 9 11:10 AM CDT 4 mL mL (NAROPIN) 4 mL, One-Time Injection, Starting on Fri12/07/18 at 1110, For 1 dose ropivacaine (PF) 2 mg/mL (0.2 %) injection 4 Given 9 11:10 AM CDT 4 mL mL (NAROPIN) 4 mL, One-Time Injection, Starting on Fri12/07/18 at 1110, For 1 dose documented in this encounter Additional Health Concerns Assessment Noted Time PHQ-9 Depression Total Score: 18 06/23/2018 8:30 AM CS T documented as of this encounter Care Teams Music Adapter Relationship Specialty Start Date End Date Leta Sanchez M.D. PCP - General 10/17/16 10/18/19 documented as of this encounter
--- OUTSIDE RECORDS SUMMARY | 2022-03-29 07:47 | XMS_ITS | Encounter Summary ---
:1950 Author Organization [facility] Address [address] [place] [address] Care Team Providers Name Role Phone Leta Sanchez M.D. Primary Care Provider Encounter Details Date Type Department Care Team Description 02/18/2019 Ancillary Procedure Department of Urology Social History [...] How often do you attend jain or holiness services? 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 [address] [phone] (Wo rk) documented as of this encounter Procedures Procedure Name Priority Date/Time Associated Diagnosis Comme nts UROLOGY IMAGE EXAM Routine 02/18/2019 1:50 PM Res ults for this CDT procedure are i n the results section. documented in this encounter Results CYSTOSCOPY-Urology Image Exam (02/18/2019 1:50 PM CDT) Specimen (Source) Anatomical Collection Method Collection Time Re ceived Time Location / / Volume Laterality 02/18/2019 1:49 PM CDT Narrative [facility] - 02/18/2019 1:53 PM CDT This order has been created [...] documented as of this encounter Care Teams Stave Block Roller Relationship Specialty Start Date End Date Leta Sanchez M.D. PCP - General 10/17/16 10/18/19 documented as of this encounter
--- OUTSIDE RECORDS SUMMARY | 2022-03-29 07:47 | XMS_ITS | Encounter Summary ---
:1950 Author Organization [facility] Address [address] [place] [address] Care Team Providers Name Role Phone Leta Sanchez M.D. Primary Care Provider Reason for Referral Outpatient (Routine) - Closed Specialty Diagnoses / Procedures Referred By Contact Refer red To Contact Physical Therapy Diagnoses Imbalance Non Orthopedic Tremor Weakness Leg Leta Sanchez M.D. 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 Imbalance Non Orthopedic (Primary Dx); Community Internal [address]; Medicine in [facility] [address] Tremor; [place], [place] Bronchitis Chronic (HCC); [place] [address] [address] Tobacco Use; [place], [place] Hyperten sive Heart And Chronic Kidney Disease Without Heart Failure And With Stage 2 (Mild) Chronic Kidney Disease [id number] Social History Tobacco Use Types Packs/Day [...] week 04/16/2019 How often do you attend mandaen or sikhism services? 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 - 06/14/2019 4:15 PM CST SUBJECTIVE CHIEF COMPLAINT/ REASON FOR VISIT 1. Problem with balance and lower extremities weakness 2. Bilateral hand tremors HISTORY OF PRESENT ILLNESS Seven Salazar is a 69 y.o. male who presents to the clinic today for above complaints. He is having balance issue with lower extremity weakness for the last 6 months. He also complaining of tremor in both hands. He is physically active. He does not have problem with physical activity. He has problem with balance when he stands for a while. He also noticed weakness in lower extremity and he has tograb something to prevent fall. He does not have recent injury or trauma. He denies low back pain, hip pain or knee pain. He has family history of Parkinson. He drinks enough water. He denies dizziness, lightheadedness, chest pain, shortness of breath or palpitation. He has bronchitis and he continuedto smoke tobacco. There is no increased cough or hemoptysis. He has good appetite. There is no weight loss. He has hypertension and he takes antihypertensive medication. He has urinary bladder cancer and follow with Urology. I reviewed and updated medical record. Medication reconciliation was done. I answered all of their questions. Patient does not have additional questions, concerns, or complaints. MEDICATIONS Current Outpatient Medications Medication Sig Dispense Refill ??? albuterol sulfate 90 mcg/actuation aerosol powdr breath activated Inhale 2 puffs 4 (four) times a day as needed (for shortness of breath and wheezing- Use with spacer chamber.). 1 each 11 ??? aspirin [address] tablet Take 81 mg by mouth daily. ??? atorvastatin (LIPITOR) 80 mg tablet Take 1 tablet (80 mg total) by mouth at bedtime. 90 tablet 3 ??? isosorbide dinitrate (ISORDIL) 10 mg tablet Take 1 tablet (10 mg total) by mouth 2 (two) times aday. Take 1 tablet in the morning and another 6 hr apart at noon. 180 tablet 3 ??? metoprolol succinate (TOPROL-XL) 25 mg 24 hr tablet Take 1 tablet (25 mg total) by mouth at bedtime. 90 tablet 3 ??? nitroglycerin (for_NITROSTAT) 0.[address] 0.4 mg under the tongue every 5 (five) minutes as needed for chest pain. Place 1 tab under the tongue at first sign of chest pain. If no relief in 5 min, call 911. Repeat dose every 5 min up to 2 additional doses if chest pain continues. ??? traZODone (DESYREL) 50 mg tablet Take 2 tablets (100 mg total) by mouth at bedtime. 180 tablet 3 ??? lisinopril (PRINIVIL,ZESTRIL) 20 mg tablet Take 1 tablet (20 mg total) by mouth every morning. 90 tablet 3 No current facility-administered medications for this visit. ALLERGIES/CONTRAINDICATIONS Allergies Allergen Reactions ??? Bupropion Hcl Other (see comments) Eliceo listed no reactions. Suicidal thoughts. ??? Citalopram Diarrhea ??? Influenza Virus Vaccine Bivalent Other (see comments) Sickness, Cerner listed no reactions. ??? Pravastatin Myalgia and Other (see comments) SYSTEMS REVIEW Please see history of present illness for pertinent positives, otherwise rest of review of systems negative. MEDICAL HISTORY Past Medical History: Diagnosis Date ??? Abuse Tobacco Smoking 07/03/2015 ??? Anemia 03/31/2017 ??? Arthralgia 07/03/2015 ??? Arthritis Shoulder 07/03/2015 ??? Bronchitis Chronic (HCC) 07/03/2015 ??? Coronary Artery Disease (Unspecified) 06/12/2017 ??? Coronary Artery Disease [place] Vessel 06/12/2017 ??? 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 Cyst Renal 02/05/2016 ??? [...] papillary urothelial carcinoma, Grade 1 of 3 SOCIAL HISTORY Social History Socioeconomic History ??? Marital status: Spouse name: None ??? Number of children: None ??? Years of education: None ??? Highest education level: Bachelor's degree (e.g., BA, AB, BS) Occupational History ??? None Social Needs ??? Financial resource strain: Not hard at all ??? Food insecurity Worry: Never true Inability: Never true ??? Transportation needs Medical: No Non-medical: No Tobacco Use ??? Smoking status: Current Some Day Smoker Packs/day: 0.20 Types: Cigarettes ??? Smokeless tobacco: Never Used ??? Tobacco comment: 4 cigarettes per day Substance and Sexual Activity ??? Alcohol use: No Frequency: Monthly or less Drinks per session: 1 or 2 Binge frequency: Never ??? Drug use: No ??? Sexual activity: Defer Lifestyle ??? Physical activity Days per week: 3 days Minutes per session: None ??? Stress: None Relationships ??? Social connections Talks on phone: Never Gets together: Twice a week Attends sikhism service: Never Active member of club or organization: No Attends meetings of clubs or organizations: None Relationship status: None ??? Intimate partner violence Fear of current or ex partner: No Emotionally abused: No Physically abused: No Forced sexual activity: No Other Topics Concern ??? None Social History Narrative Caffeine: 2 cups coffee daily Social History Substance and Sexual Activity Drug Use No Social History Substance and Sexual Activity Alcohol Use No ??? Frequency: Monthly or less ??? Drinks per session: 1 or 2 ??? Binge frequency: Never FAMILY HISTORY Family History Problem Relation Age of Onset ??? Hypertension Mother ??? Cataracts Mother ??? Glaucoma Mother ??? Hypertension Brother ??? Asthma Brother ??? Coronary artery disease Brother ??? Heart attack Brother ??? Hearing loss Father ??? Parkinsons disease Father ??? Pancreatic cancer Father ??? Liver cancer Father ??? Lung cancer Sister OBJECTIVE VITAL SIGNS Vitals: 06/14/19 1556 BP: 134/67 Patient Position: Sitting Pulse: 64 Resp: 20 Weight: 99.9 kg PHYSICAL EXAMINATION General: Patient is sitting. No distress. Able to talk without interruption. Head: No facial rash or asymmetry. Eyes: PERRLA. EOMI. No pallor, icterus or conjunctivitis. ENT: No nasal congestion, discharge or bleeding. Tongue is moist and midline. No oral lesions. Lymph nodes: No cervical or supraclavicular lymphadenopathy. Peripheral vessels: Good radial pulses. Heart: No carotid bruit. No JVD. Regular rhythm. There is no S3, gallop, murmur or thrill. Lungs: Normal respiratory effort. Clear to auscultation. Abdomen: Moves with respiration. Bowel sounds present. Soft. No rebound tenderness, guarding or rigidity. Extremities: No clubbing, cyanosis, edema, infection or calf tenderness. There is no obvious hand tremors. Gait: No abnormal gait. Mental: Alert and oriented x 3. Normal mood and affect. Neuro: Intact cranial nerves. Grossly intact sensory and motor. Grossly nonfocal exam. ASSESSMENT / PLAN #1 Imbalance Non Orthopedic #2 Weakness Leg Bilateral #3 Tremor Hands He does not have arthritis pain. We discussed possibly etiologies, further evaluation and management. It was decided to get physical therapy evaluation and treatment for imbalance and bilateral leg weakness. Advised him to make an appointment to see Neurology for further evaluation. 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 Advised him to continue current medications, sodium restriction diet and cardiovascular risk factor modification. Blood pressure goal should be less than 130/80 mm Hg. #7 Today Studies Following studies were done today: Chest x-ray. #8 Referral And Future Studies Physical therapy and neurology consultation. #9 Follow-up Visit Return to the clinic after physical therapy and neurology consultation. GION TEACHER documented in this encounter Plan of Treatment Upcoming Encounters Date Type Specialty Care Team Description 04/12/2022 Office Visit Cardiovascular Disease Simone Gooden AP RN, C.N.P. [address] [phone] (Wo rk) documented as of this encounter Results DX Chest AP or PA and Lateral 2 Views (06/14/2019 4:29 PM RELIGION TEACHER) Anatomical Region Laterality Modality Chest, Thoracic RST LOS, Thoracic ARZ LOS, Thoracic N/A Digital Radiography FLA LOS Specimen (Source) Anatomical Collection Method Collection Time Re ceived Time Location / / Volume Laterality 06/14/2019 4:40 PM RELIGION TEACHER Impressions 06/14/2019 4:42 PM RELIGION TEACHER IMPRESSION: Chronic changes. No evidence of acute cardiopulmonary process. Narrative 06/14/2019 4:42 PM RELIGION TEACHER EXAM: DX CHEST AP OR PA AND LATERAL 2 VIEWS COMPARISON: Plain film images of the [facility] dated March 02, 2018, September 21, [...] EWS COMPARISON: Plain film images of the [facility] dated March 02, 2018, September 21, [...] Leta Sanchez M.D. IMG DIAGNOSTIC IMAGING PROCE DURHANNAH documented in this encounter Visit Diagnoses Diagnosis Imbalance Non Orthopedic - Primary Weakness Leg Tremor Bronchitis Chronic (HCC) Tobacco Use Hypertensive Heart And Chronic Kidney Di sease Without Heart Failure And With Stage 2 (Mild) Chronic Kidney Disease Imbalance Non Orthopedic Bronchitis Chronic (HCC) Tobacco Use documented in this encounter Additional Health Concerns Assessment Noted Time PHQ-9 Depression Total Score: 12 04/16/2019 9:45 AM CS T documented as of this encounter Care Teams Developmental Services Worker Relationship Specialty Start Date End Date Leta Sanchez M.D. PCP - General 10/17/16 10/18/19 documented as of this encounter
--- OUTSIDE RECORDS SUMMARY | 2022-03-29 07:47 | XMS_ITS | Encounter Summary ---
:1950 Author Organization [facility] Address [address] [place] [address] Care Team Providers Name Role Phone Leta Sanchez M.D. Primary Care Provider Reason for Referral Outpatient (Routine) - Closed Specialty Diagnoses / Procedures Referred By Contact Refer red To Contact Community Internal Diagnoses Annual Medicare Examination Return Bronchitis Chronic With Acute Exacerbation (HCC) Coronary Artery Disease With Stable Angina (HCC) Coronary Stent Status Post Leta Sanchez M.D. 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 Need blood tests fe w days before appointment. TMENT COORDINATOR Reason for Visit Reason Comments Medicare Annual Wellness Visit Subsequent Outpatient (Routine) - Closed Specialty Diagnoses / Procedures Referred By Contact Refer red To Contact Community Internal Diagnoses par Leta Sanchez M.D. [facility] [address], [address] [place] [address] Referral ID Status Reason Start Date Expiration Date Visits Requ ested Visits Authorized [id number] Closed 01/07/2019 01/07/2020 1 1 Encounter Details Date Type Department Care Team Description 04/16/2019 Comprehensive Visit Department of Phyo, Leta, Annual Medicare Examination Return (Primary Dx); Community Internal M.D. Bronchitis Chronic With Acute Exacerbati on (HCC); Medicine in [address] Coronary Arter y Disease With Stable Angina (HCC); [address] [place], [address] Coronary Stent Status Post; [facility] [place] [place] Hypertensive Heart And Chron ic Kidney Disease Without Heart Failure And With Stage 2 (Mild) Chronic Kidney Disease; [address] [address] Hyperlipidemia; ANASTASIIAARCHANA JAYNA [phone] Impaired Fasti ng Glucose; [phone] (Fax) Depression Anxiety; [phone] Insomnia; Abuse Tobacco S moking; Personal Histor y Of Malignant Neoplasm Of Bladder; Cyst Renal; Leukocytosis; Elevated Sedime ntation Rate; High Risk Medic ation Social History Tobacco Use Types Packs/Day Years [...] How often do you attend gnosticism or jainism services? Never 04/16/2019 Do you belong to [...] at Date Recorded Male 06/28/2019 8:47 AM TREATMENT COORDINATOR documented as of this encounter Last Filed Vital Signs Vital Sign Reading Time Taken Comments Blood Pressure 115/65 04/16/2019 9:50 AM TREATMENT COORDINATOR Pulse 110 04/16/2019 9:50 AM TREATMENT COORDINATOR Temperature - - Respiratory Rate 12 04/16/2019 9:50 AM TREATMENT COORDINATOR Oxygen Saturation 96% 04/16/2019 9:50 AM TREATMENT COORDINATOR Inhaled Oxygen Concentration - - Weight 96.3 kg (212 lb 4.9 oz) 04/16/2019 9:50 AM TREATMENT COORDINATOR Height 172 cm (5' 7.72) 04/16/2019 9:50 AM TREATMENT COORDINATOR Body Mass Index 32.55 04/16/2019 9:50 AM TREATMENT COORDINATOR documented in this encounter H&P Notes Leta Sanchez M.D. - 04/16/2019 10:15 AM CST SUBJECTIVE CHIEF COMPLAINT/REASON FOR VISIT 1. Medicare annual wellness visit 2. Review medical problems 3. Discuss test results 4. Renew medication HISTORY OF PRESENT ILLNESS Seven Salazar is a 69 y.o. male who presents to the clinic today for above complaints. We discussed Medicare annual wellness visit preventative screening services. He had Prevnar 13 on 01/24/2015, Pneumovax 23 on 02/05/2016 and Tetanus vaccine on 02/12/2010. He had colonoscopy on 11/26/2011. He was advised to repeat screening colonoscopy in 10 years. He had negative hepatitis C virus antibody screening on 07/18/2015. Because of cold symptoms, he is coughing and he has fever. He hasn't smoked cigarettes for 7 days. He has chronic bronchitis. He has coronary artery disease. He denies exertional chest pain or increased shortness of breath. He had coronary artery stent placement. He has hypertension. He denies dizziness or lightheadedness. He has been eating. He has fatigue and sinus congestion. He has discomfort in chest with excessive coughing. He has joint aches and pain. He has urinary frequency. He denies dysuria. He takes atorvastatin for hyperlipidemia. He has impaired fasting glucose. He has depression, anxiety and insomnia. Today PHQ-9 score is 12. He does not have suicidal or homicidal idea. He would like to continue current medication. He does not want to adjust the medication. He takes trazodone for sleep which seemed to help. 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 He had history of polymyalgia rheumatica. We monitor sedimentation rate. He does not have significant problem with neck pain or neck stiffness. We discussed lab results from 04/12/2019. WBC was 10.6. Sedimentation rate was slightly high at 35. Hemoglobin A1c was 6. PSA was marlee l. TSH was normal. He does not have problem with hearing. He does not need assistance to do daily activities. He fell once in last 12 months. There are throw rugs on the floor at home. There are hand rails on steps and stairs in his house. There are grab bars in the bathroom. There are functioning smoke alarms at home. He has a working fire extinguisher at home. He uses seatbelts when traveling in a car. His dentist was retired recently. He hasn't seen eye doctor for a while. I reviewed and updated medical record. Medication reconciliation was done. I answered all of their questions. Patient does not have additional questions, concerns, or complaints. MEDICATIONS Current Outpatient Medications Medication Sig Dispense Refill ??? aspirin [address] tablet Take 81 mg by mouth daily. ??? albuterol sulfate 90 mcg/actuation aerosol powdr breath activated Inhale 2 puffs 4 (four) times a day as needed (for shortness of breath and wheezing- Use with spacer chamber.). 1 each 11 ??? atorvastatin (LIPITOR) 80 mg tablet Take 1 tablet (80 mg total) by mouth at bedtime. 90 tablet 3 ??? azithromycin (Zithromax Z-Handy) 250 mg tablet Take 2 tablets the first day, then 1 tablet daily for 4 days. 6 tablet 0 ??? isosorbide dinitrate (ISORDIL) 10 mg tablet Take 1 tablet (10 mg total) by mouth 2 (two) times aday. Take 1 tablet in the morning and another 6 hr apart at noon. 180 tablet 3 ??? lisinopril (PRINIVIL,ZESTRIL) 20 [...] additional doses if chest pain continues. ??? predniSONE (DELTASONE) 50 mg tablet Take 1 tablet (50 mg total) by mouth daily for 7 days. With food 7 tablet 0 ??? traZODone (DESYREL) 50 mg tablet Take 2 tablets (100 mg total) by mouth at bedtime. 180 tablet 3 No current facility-administered medications for [...] Disease (Unspecified) 06/12/2017 ??? Coronary Artery Disease [place] Vessel 06/12/2017 ??? Corticosteroid Treatment [employer] 03/14/2017 ??? Cyst Renal 02/05/2016 ??? [...] 12/24/2011 ??? Seizure Partial Complex ([facility]) 03/23/2004 ??? 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 Stroke ([facility]) 03/23/2004 SURGICAL HISTORY Past Surgical History: Procedure [...] papillary urothelial carcinoma, Grade 1 of 3 PREVENTIVE SERVICES Immunization History Administered Date(s) Administered ??? BCG 04/23/2010, 05/07/2010, 08/20/2010 ??? DTaP (Infanrix, [employer]) 02/12/2010 ??? Influenza, Seasonal, Injectable 02/04/2012 ??? Influenza, Unspecified 07/01/2011, 02/04/2012, 03/04/2014 ??? PCV13 01/24/2015 ??? PPSV23 01/17/2014, 02/05/2016 ??? Tdap 02/12/2010, 02/12/2010 Health Maintenance Topic Date Due ??? Influenza Vaccine (1) 02/02/2019 ??? Zoster Vaccines (1 of 2) 05/19/2019 (Originally 1999) ??? Depression Monitoring (PHQ-9) 08/16/2019 ??? DTaP,Tdap,and Td Vaccines (2 - Td) 02/13/2020 ??? Creatinine Level 04/12/2020 ??? Potassium Level 04/12/2020 ??? Fasting Glucose for Diabetes Screening 04/12/2020 ??? Office Visit for Blood Pressure Check / Re-check 04/16/2020 ??? Colon Cancer Screening/Surveillance 11/25/2021 ??? Fasting Lipid Panel 04/12/2024 ??? Fall Risk Screen (Annual) Completed ??? Pneumococcal vaccine (65+ years) Completed ??? Abdominal Aortic Aneurysm (AAA) Screen Completed ??? Hepatitis C Screening Completed SOCIAL HISTORY Social History Socioeconomic History ??? [...] Never Gets together: Twice a week Attends jainism service: Never Active member of club or [...] Lung cancer Sister OBJECTIVE VITAL SIGNS Vitals: 04/16/19 0950 BP: 115/65 Patient Position: Sitting Pulse: 110 Resp: 12 Height: 172 cm Weight: 96.3 kg SpO2: 96% PHYSICAL EXAM General: Patient is sitting. No distress. Able to talk without interruption. Skin: No rash, bruise or nodules. Head: No facial rash, asymmetry or sinus tenderness. Eyes: PERRLA. EOMI. No pallor, icterus or conjunctivitis. ENT: No nasal congestion, discharge or bleeding. There is no ear infection or discharge. No mastoid tenderness. Tongue is moist and midline. No oral lesions. Lymph nodes: No cervical, supraclavicular, axillary, inguinal or femoral lymphadenopathy. Thyroid: No thyromegaly. No thyroid thrill or bruit. Breasts: No palpable breast mass or tenderness. Peripheral vessels: Good radial and pedal pulses. Heart: No carotid bruit. No JVD. Regular rhythm. There is no S3, gallop, murmur or thrill. Lungs: Normal respiratory effort. Clear to auscultation. Abdomen: Moves with respiration. Bowel sounds present. Soft. No rebound tenderness, guarding or rigidity. No organomegaly. Genitalia: No urethral discharge. Normal testicles. No hydrocele or hernia. Extremities: No clubbing, cyanosis, edema, infection or calf tenderness. Gait: No abnormal gait. Mental: Alert and oriented x 3. Normal mood and affect. Neuro: Intact cranial nerves. Grossly intact sensory and motor. Grossly nonfocal exam. ASSESSMENT / PLAN #1 Annual Medicare Examination Return We discussed Medicare annual wellness visit preventive screening services. He needs to eat healthy diet and exercise regularly to maintain healthy body weight and body mass index. Today his Body mass index is 32.55 kg/m??. PHQ-9 score is 12. His immunization record is up to date except for influenza vaccination and Shingrix. Need to repeat screening colonoscopy on or after 11/26/2021. Advised to see eye doctor once a year and dentist every six months. He needs health maintenance exam every year. #2 Bronchitis Chronic With Acute Exacerbation (HCC) Advised him to take Z-Handy for 5 days and prednisone 50 mg by mouth daily for 7 days with food. He should continue albuterol inhaler as needed. He should drink plenty of fluid. Advised him not to smoke cigarette. He should contact our office if he has worsening of symptoms. #3 Coronary Artery Disease With Stable Angina (HCC) #4 Coronary Stent Status Post He is stable from cardiac standpoint. There is no angina. Needs to continue current medication and cardiovascular risk factor modification. #5 Hypertensive Heart And Chronic Kidney Disease Without Heart Failure And With Stage 2 (Mild) Chronic Kidney Disease His blood pressure is controlled. Advised him to continue current medications, sodium restriction diet and cardiovascular risk factor modification. Blood pressure goal should be less than 130/80 mm Hg. #6 Hyperlipidemia We discussed lipid profile from 04/12/2019. He will continue low-cholesterol diet, low-fat diet, regular exercise and atorvastatin. Need to repeat lipid profile after 04/13/2020. #7 Impaired Fasting Glucose There is no symptom and sign suggestive of diabetes mellitus. Today his Body mass index is 32.55 kg/m??. He will cut back calories, carbohydrates and portion of meals. He needs to do regular exercise to maintain healthy body weight and body mass index. We should check hemoglobin A1c every 6 months. #8 Depression Anxiety #9 Insomnia It is stable with current medications. He does not want to adjust medication. He will continue current medications. #10 Abuse Tobacco Smoking We discussed smoking cessation. #11 Personal History Of Malignant Neoplasm Of Bladder #12 Cyst Renal He saw Urology on 02/18/2019. He has cystoscopy on the day. He will follow with urologist. #13 Leukocytosis It is most likely due to infection. Need to monitor. #14 Elevated Sedimentation Rate He had slightly elevated sed rate. It is most likely due to infection. We need to monitor. #15 Renew Medications The following medications were renewed: Trazodone. #16 Discussed Test Results I reviewed test results from 04/12/2019. All questions were answered. #17 Follow-up Visit Return to the clinic in 1 month to do following test: CBC, C reactive protein and sedimentation rate. six months for review medical problems and discuss test results. He needs to do following tests fewdays before the appointment: ALT, AST, BMP, CBC, CK, C reactive protein, hemoglobin A1c and sedimentation rate. TMENT COORDINATOR documented in this encounter Plan of Treatment Upcoming Encounters Date Type Specialty Care Team Description 04/12/2022 Office Visit Cardiovascular Disease Simone Gooden AP RN, C.N.P. [address] [phone] (Wo rk) Scheduled Referrals Name Type Priority Associated Diagnoses Order S [facility] Internal Outpatient Referral Routine Annual Medicare Expected: Medicine office Examination Retu rn 10/16/2019 visit (clinic) Bronchitis Chronic (Approx imate), With Acute Expires: Exacerbation (HC C) 04/16/2022 Coronary Artery Disease With Stable Angina (HCC) Coronary Stent Status Post Hypertensive Heart And Chronic Kidney Disease Without Heart Failure And With Stage 2 (Mild) Chronic Kidney Disease Hyperlipidemia Impaired Fasting Glucose Depression Anxie ty Insomnia Abuse Tobacco Sm oking Personal History Of Malignant Neoplasm Of Bladder Cyst Renal Leukocytosis Elevated Sedimentation Rate High Risk Medication documented as of this encounter Results Sedimentation Rate (10/15/2019 3:36 [...] Organization Address City/State/ZIP Code Phon e Number [facility]- [address] [place] [address] [facility] [address] [place] [address] System in [place] [address] (ABNORMAL) CRP (C-Reactive Protein) (10/15/2019 3:36 PM CDT) P athologist Signature C-Reactive 13.6 (H) <=8.0 mg/L 10/15/2019 [facility] Protein (CRP), 6:05 PM CDT P Specimen Anatomical Collection Method Collection Time Receive d Time (Source) Location / / Volume Laterality Blood (Blood, 10/15/2019 3:36 PM 10/15/19 20 5:51 Venous) CDT PM CDT Phunt Ambrosioyo M.D. LAB BLOOD ADD-ON Performing Organization Address City/State/ZIP Code Phon e Number [facility]- [address] [place] [address] [place] [address] System in [place] [address] (ABNORMAL) Hemoglobin A1c (10/15/2019 3:36 [...] 10/15/19 20 5:51 Venous) CDT PM CDT Phpatrick Phyo M.D. LAB BLOOD ADD-ON Performing Organization Address City/[facility]/ZIP Code Phon e Number [facility]- [address] [place] [address] [place] [address] System in [place] [address] CK (Creatine Kinase) [...] Organization Address City/State/ZIP Code Phon e Number [facility]- [address] [place] [address] [facility] [place] [address] [facility] [address] ALT (Alanine [...] Organization Address City/State/ZIP Code Phon e Number [facility]- [address] [place] [address] [place] [address] System in [place] [address] AST (Aspartate Aminotransferase) (10/15/2019 3:36 PM CDT) [facility] Method Time Signature Aspartate 30 8 - 48 10/15/2019 [place] Aminotransferase U/L 6:05 PM CDT (AST), P Specimen Anatomical Collection Method Collection Time Receive d Time (Source) Location / / Volume Laterality Blood (Blood, 10/15/2019 3:36 PM 10/15/19 20 5:51 Venous) CDT PM CDT Leta Sanchez M.D. LAB BLOOD ADD-ON Performing Organization Address City/State/ZIP Code Phon e Number [facility]- [address] [place] [address] [place] [address] System in [place] [address] Basic Metabolic Panel (10/15/2019 3:36 PM CDT) [...] CDT eGFR-Black/Afric >90 >=60 10/15/2019 [place] an Maltese mL/min/BSA 6:05 PM CDT Comment: ----ADDITIONAL INFORMATION---- [...] Organization Address City/State/ZIP Code Phon e Number [facility]- [address] [place] [address] [place] [address] System in [place] [address] (ABNORMAL) CBC without Differential (10/15/2019 3:36 PM CDT) [facility] Method Time Signature Hemoglobin 14.9 13.2 - [...] Laterality Blood (Blood, 10/15/2019 3:36 PM 10/15/19 3:37 Venous) CDT PM CDT Leta Sanchez M.D. LAB BLOOD ADD-ON Performing Organization Address City/State/ZIP Code Phon e Number [facility] [address] [place] [address] [facility] [address] [place] [address] System in [place] [address] [facility] [address] documented in this encounter Visit Diagnoses Diagnosis Annual Medicare Examination Return - Ceci alla Bronchitis Chronic With Acute Exacerbati on (HCC) Coronary Artery Disease With Stable Gladis na (HCC) Coronary Stent Status Post Hypertensive Heart And Chronic Kidney Di sease Without Heart Failure And With Stage 2 (Mild) Chronic Kidney Disease Hyperlipidemia Impaired Fasting Glucose Depression Anxiety Insomnia Abuse Tobacco Smoking Personal History Of Malignant Neoplasm O f Bladder Cyst Renal Leukocytosis Elevated Sedimentation Rate High Risk Medication documented in this encounter Additional Health Concerns Assessment Noted Time PHQ-9 Depression Total Score: 12 04/16/2019 9:45 AM CS T documented as of this encounter Care Teams Pot Press Operator Relationship Specialty Start Date End Date Leta Sanchez M.D. PCP - General 10/17/16 10/18/19 documented as of this encounter
--- OUTSIDE RECORDS SUMMARY | 2022-03-29 07:47 | XMS_ITS | Encounter Summary ---
:1950 Author Organization [facility] Address [address] [place] [address] Care Team Providers Name Role Phone Leta Sanchez M.D. Primary Care Provider Reason for Referral Outpatient (Routine) - Closed Specialty Diagnoses / Procedures Referred By Contact Refer red To Contact [facility] Internal Diagnoses par Leta Sanchez M.D. [facility] [address], [facility] [address] [place] [address] Referral ID Status Reason Start Date Expiration Date Visits Requ ested Visits Authorized [id number] Closed 01/07/2019 01/07/2020 1 1 Scheduling Instructions Annual physical, review medical problems and renew Rx. Need fasting blood tests few days before appointment. Reason for Visit Reason Comments Follow-up 10/05/18 Outpatient (Routine) - Closed Specialty Diagnoses / Procedures Referred By Contact Sherri argueta To Contact [facility] Internal Leta Sanchez M.D. [facility] [address], [place] [address] [place] [address] Referral ID Status Reason Start Date Expiration Date Visits Requ ested Visits Authorized [id number] Closed 10/05/2018 10/05/2019 1 1 Encounter Details Date Type Department Care Team Description 01/07/2019 Office Visit Department of Leta Sanchez M.D . Coronary Artery Disease With Stable Gladis na (HCC) (Primary Dx); [facility] Internal [address], Cor onary Stent Status Post; Medicine in [place] [address] Hypertensive Heart And Chronic Kidney Di sease Without Heart Failure And With Stage 2 (Mild) Chronic Kidney Disease; [place], [place], [place] Malignant Neoplasm Of Bladde r Lateral Wall (HCC); [address] [address] Bronchitis Chronic (HCC); JAYNA THIBODEAUX Abuse To bacco Smoking; [id number] Insomnia; [phone] Primary Osteoar thritis Knee Bilateral; Hyperlipidemia; High Risk Medic ation Social History Tobacco [...] How often do you attend pentecostalism or yazdanism services? 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 - 01/07/2019 10:45 AM CDT SUBJECTIVE CHIEF COMPLAINT/ REASON FOR VISIT 1. Follow-up medical problems HISTORY OF PRESENT ILLNESS Seven Salazar is a 68 y.o. male who presents to the clinic today for above complaint. I saw him on 08/07/2018. He is doing fine. He does not have acute complaint. He is still having problem with knee pain. He saw Dr. Cardona, physical medicine and rehabilitation physician on 12/07/2018. He had bilateral knee joint aspiration and injection. He notice improvement for few days then he started having knee pain again. He did not make follow-up appointment with Dr. Cardona yet. 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 He has coronary artery disease with stent placement. He denies exertional chest pain. He has follow-up appointment with Cardiology on 01/11/2019. Hesmoked tobacco. He has not smoked since Friday. He has chronic bronchitis. There is no recent exacerbation. He does not need to use albuterol inhaler. He takes trazodone for insomnia and it is helping.He takes atorvastatin for hyperlipidemia. I reviewed and updated medical record. Medication [...] 1 each 11 ??? aspirin 81 mg chewable tablet Chew 81 mg daily. ??? atorvastatin (LIPITOR) 80 mg tablet [...] ??? traZODone (DESYREL) 50 mg tablet Take 1 tablet (50 mg total) by mouth at bedtime as needed for sleep. No current facility-administered medications for this visit. [...] Disease (Unspecified) 06/12/2017 ??? Coronary Artery Disease [place] Vessel 06/12/2017 ??? 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 Cyst Renal 02/05/2016 ??? [...] ??? Pain Back 07/03/2015 ??? Polymyalgia Rheumatica ([facility]) 04/17/2015 ??? Presbyopia 10/07/2011 ??? Reflux Esophageal 12/24/2011 ??? Seizure Partial Complex ([facility]) 03/23/2004 ??? 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 Stroke ([facility]) 03/23/2004 SURGICAL HISTORY Past Surgical History: [...] of education: None ??? Highest education level: None Occupational History ??? None Social Needs ??? Financial resource strain: None ??? Food insecurity: Worry: None Inability: None ??? Transportation needs: Medical: None Non-medical: None Tobacco Use ??? Smoking status: Current Some Day Smoker Packs/day: 0.20 Types: Cigarettes ??? Smokeless tobacco: Never Used ??? Tobacco comment: 4 cigarettes per day Substance and Sexual Activity ??? Alcohol use: No ??? Drug use: No ??? Sexual activity: Defer Lifestyle ??? Physical activity: Days per week: None Minutes per session: None ??? Stress: None Relationships ??? Social connections: Talks on phone: None Gets together: None Attends yazdanism service: None Active member of club or organization: None Attends meetings of clubs or organizations: None Relationship status: None ??? Intimate partner violence: Fear of current or ex partner: None Emotionally abused: None Physically abused: None Forced sexual activity: None Other Topics Concern ??? None Social History Narrative Caffeine: 2 cups coffee daily Social History Substance and Sexual Activity Drug Use No Social History Substance and Sexual Activity Alcohol Use No FAMILY HISTORY Family History Problem Relation Age of Onset ??? Hypertension Mother ??? Cataracts Mother ??? Glaucoma Mother ??? Hypertension Brother ??? Asthma Brother ??? Coronary artery disease Brother ??? Heart attack Brother ??? Hearing loss Father ??? Parkinsons disease Father ??? Pancreatic cancer Father ??? Liver cancer Father ??? Lung cancer Sister OBJECTIVE VITAL SIGNS Vitals: 01/07/19 1025 01/07/19 1030 BP: 141/62 129/64 Patient Position: Sitting Sitting Pulse: 71 Resp: 20 Weight: 96.5 kg PHYSICAL EXAMINATION General: Obese. Patient is sitting. No distress. Able to talk without interruption. Head: No facial rash, asymmetry or sinus tenderness. Eyes: PERRLA. EOMI. No pallor, icterus or conjunctivitis. Bilateral knee Joints: He has small joint effusion. No decreased range of motion. Extremities: No clubbing, cyanosis, edema, infection or calf tenderness. Mental: Alert and oriented x 3. Normal mood and affect. ASSESSMENT / PLAN #1 Coronary Artery Disease With Stable Angina (HCC) #2 Coronary Stent Status Post He is stable from cardiac standpoint. There is no angina. Needs to continue current medication and cardiovascular risk factor modification. He will follow with Cardiology on 01/11/2019. 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 Advised him to continue current medications, sodium restriction diet and cardiovascular risk factor modification. Blood pressure goal should be less than 130/80 mm Hg. 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 Advised him to quit smoking tobacco. #5 Bronchitis Chronic (HCC) #6 Abuse Tobacco Smoking He is stable from respiratory standpoint. He does not need to use albuterol inhaler. Advised him to quit smoking tobacco. #7 Insomnia He will continue current dose of trazodone. #8 Primary Osteoarthritis Knee Bilateral He saw Dr. Cardona, physical medicine and rehabilitation physician on 12/07/2018. He had bilateral knee joint aspiration and intra-articular steroid injection. He continued to have knee pain. We discussed management of osteoarthritis. He should follow with Dr. Cardona. He needs to lose weight. Today his Body mass index is 32.24 kg/m??. #9 Hyperlipidemia He will continue low-cholesterol diet, low-fat diet, regular exercise and atorvastatin. Need to repeat lipid profile in 3 months. #10 Follow-up Visit Return to the clinic in three months for annual physical exam, review medical problems, discuss testresults and renew medication. He needs to do following tests few days before the appointment: ALT, AST, BMP, CBC, CK, hemoglobin A1c, lipid panel, PSA, TSH and sedimentation rate. documented in this encounter Plan of Treatment Upcoming Encounters Date Type Specialty Care Team Description 04/12/2022 Office Visit Cardiovascular Disease Simone Gooden AP RN, C.N.P. [address] [phone] (Wo rk) Scheduled Referrals Name Type Priority Associated Diagnoses Order S [facility] Internal Outpatient Referral Routine Ex pected: Medicine office 04/08/2019 visit (clinic) (Approximate) , Expires: 01/07/2022 documented as of this encounter Results PSA (Prostate-Specific Antigen), Diagnostic (04/12/2019 8:01 AM SALES AND PRODUCTION MANAGER) P athologist Signature Prostate-Specif 2.3 <=6.5 ng/mL 04/12/2019 [place] ic Ag 12:24 PM SALES AND PRODUCTION MANAGER Comment: Biotin has been identified by the heri garcia as a potential interfering substance. ??Higher concentr ations of biotin may be found in multivitamins, hair/nail supple ments, and workout supplements. ??If the result does not ma [facility] clinical observations, repeat testing after patient refrains [...] (Blood, 04/12/2019 8:01 AM 04/12/20 19 Venous) SALES AND PRODUCTION MANAGER 11:18 AM SALES AND PRODUCTION MANAGER Leta Sanchez M.D. LAB BLOOD ADD-ON Performing Organization Address City/State/ZIP Code Phon e Number [facility]- [address] [place] [address] [facility] [place] [address] System in [place] [address] (ABNORMAL) Sedimentation Rate (04/12/2019 8:01 AM SALES AND PRODUCTION MANAGER) Patholo gist Method Time Signature Sedimentation 35 (H) 0 - 22 04/12/2019 FB60 Rate, B mm/1 h 9:32 AM SALES AND PRODUCTION MANAGER Specimen Anatomical Collection Method Collection Time Receive d Time (Source) Location / / Volume Laterality Blood (Blood, 04/12/2019 8:01 AM 04/12/20 19 8:01 Venous) SALES AND PRODUCTION MANAGER AM SALES AND PRODUCTION MANAGER Leta Sanchez M.D. LAB BLOOD ADD-ON Performing Organization Address City/[facility]/ZIP Code Phon e Number [facility]- [address] [place] [address] [facility] [address] [place] [address] System [address] S-TSH (Thyroid-Stimulating Hormone - Sensitive) (04/12/2019 8:01 AM SALES AND PRODUCTION MANAGER) P athologist Signature TSH, Sensitive 1.5 0.3 - 4.2 04/12/2019 [place] mIU/L 12:24 PM SALES AND PRODUCTION MANAGER Comment: Biotin has been identified by the heri garcia as a potential interfering substance. ??Higher concentr ations of biotin may be found in multivitamins, hair/nail supple ments, and workout supplements. ??If the result does not ma [facility] clinical observations, repeat testing after patient refrains fr om the use of supplements for at least 12 hours. Specimen Anatomical Collection Method Collection Time Receive d Time (Source) Location / / Volume Laterality Blood (Blood, 04/12/2019 8:01 AM 04/12/20 19 Venous) SALES AND PRODUCTION MANAGER 11:18 AM SALES AND PRODUCTION MANAGER Leta Sanchez M.D. LAB BLOOD ADD-ON Performing Organization Address City/State/ZIP Code Phon e Number [facility]- [address] [place] [address] [facility] [place] [address] System in [place] [address] [facility] Lipid Panel (04/12/2019 8:01 AM SALES AND PRODUCTION MANAGER) athologist Signature Cholesterol, 115 mg/dL 04/12/2019 [place] Total 12:58 PM SALES AND PRODUCTION MANAGER Comment: ----REFERENCE VALUE---- Desirable: < 200 Borderline high: 200 - 239 High: > or = 240 Triglycerides 66 mg/dL 04/12/2019 12:58 PM SALES AND PRODUCTION MANAGER OW AT Comment: ----REFERENCE VALUE---- Normal: <150 Borderline high: 150-199 High: 200-499 Very high: > or =500 Cholesterol, HDL, S 41 >=40 mg/dL 04/12/2019 12:58 PM SALES AND PRODUCTION MANAGER [place] Calculated LDL 61 mg/dL 04/12/2019 12:58 PM SALES AND PRODUCTION MANAGER O SARAH Comment: ----REFERENCE VALUE---- Desirable: <100 Above Desirable: 100-129 Borderline high: 130-159 High: 160-189 Very high: > or =190 Cholesterol, Non-HDL, Calculated 74 mg/dL 019 12:58 PM SALES AND PRODUCTION MANAGER [place] Comment: ----REFERENCE VALUE---- Desirable: <130 Above Desirable: 130-159 Borderline high: 160-189 High: 190-219 Very high: > or =220 Specimen Anatomical Collection Method Collection Time Receive d Time (Source) Location / / Volume Laterality Blood (Blood, 04/12/2019 8:01 AM 04/12/20 19 Venous) SALES AND PRODUCTION MANAGER 11:18 AM SALES AND PRODUCTION MANAGER Leta Sanchez M.D. LAB BLOOD ADD-ON Performing Organization Address City/State/ZIP Code Phon e Number [facility]- [address] [place] [address] [facility] [place] [address] System in [place] [address] (ABNORMAL) Hemoglobin A1c (04/12/2019 8:01 AM SALES AND PRODUCTION MANAGER) athologist Signature Hemoglobin A1c, 6.0 (H) 4.2 - 5.6 04/12/2019 [place] B % 12:13 PM SALES AND PRODUCTION MANAGER Comment: Hemoglobin A1c values of 5.7-6.4 percent indicate an increased risk for developing diabetes m ermabrodie. In diabetic patients, HbA1c goals should be discussed with healthcare provider. Specimen Anatomical Collection Method Collection Time Receive d Time (Source) Location / / Volume Laterality Blood (Blood, 04/12/2019 8:01 AM 04/12/20 19 Venous) SALES AND PRODUCTION MANAGER 11:16 AM SALES AND PRODUCTION MANAGER Phunt Phyo M.D. LAB BLOOD ADD-ON Performing Organization Address City/State/ZIP Code Phon e Number [facility]- [address] [place] [address] [facility] [place] [address] System in [place] [address] CK (Creatine Kinase) (04/12/2019 8:01 AM SALES AND PRODUCTION MANAGER) athologist Signature Creatine Kinase 78 39 - 308 04/12/2019 AUST (CK), S U/L 4:38 PM SALES AND PRODUCTION MANAGER Specimen Anatomical Collection Method Collection Time Receive d Time (Source) Location / / Volume Laterality Blood (Blood, 04/12/2019 8:01 AM 04/12/20 19 4:04 Venous) SALES AND PRODUCTION MANAGER PM SALES AND PRODUCTION MANAGER Phunt Phyo M.D. LAB BLOOD ADD-ON Performing Organization Address City/State/ZIP Code Phon e Number [facility]- [address] [place] [address] [facility] [place] [address] [facility] [address] ALT (Alanine Aminotransferase) (04/12/2019 8:01 AM SALES AND PRODUCTION MANAGER) Patholo gist Method Time Signature Alanine 14 7 - 55 04/12/2019 [place] Aminotransferase U/L 12:58 PM SALES AND PRODUCTION MANAGER (ALT), S Specimen Anatomical Collection Method Collection Time Receive d Time (Source) Location / / Volume Laterality Blood (Blood, 04/12/2019 8:01 AM 04/12/20 19 Venous) SALES AND PRODUCTION MANAGER 11:18 AM SALES AND PRODUCTION MANAGER Leta Sanchez M.D. LAB BLOOD ADD-ON Performing Organization Address City/State/ZIP Code Phon e Number [facility]- [address] [place] [address] [facility] [place] [address] System in [place] [address] AST (Aspartate Aminotransferase) (04/12/2019 8:01 AM SALES AND PRODUCTION MANAGER) Patholo gist Method Time Signature Aspartate 22 8 - 48 04/12/2019 [place] Aminotransferase U/L 12:58 PM SALES AND PRODUCTION MANAGER (AST), S Specimen Anatomical Collection Method Collection Time Receive d Time (Source) Location / / Volume Laterality Blood (Blood, 04/12/2019 8:01 AM 04/12/20 19 Venous) SALES AND PRODUCTION MANAGER 11:18 AM SALES AND PRODUCTION MANAGER Leta Sanchez M.D. LAB BLOOD ADD-ON Performing Organization Address City/State/[facility] Code Phon e Number [facility]- [address] [place] [address] [place] [place] [address] System in [place] [address] Basic Metabolic Panel (04/12/2019 8:01 AM SALES AND PRODUCTION MANAGER) P athologist Signature Potassium, S 4.3 3.6 - 5.2 04/12/2019 [place] mmol/L 12:58 PM SALES AND PRODUCTION MANAGER Sodium, S 137 135 - 145 04/12/2019 [place] mmol/L 12:58 PM SALES AND PRODUCTION MANAGER Chloride, S 98 98 - 107 04/12/2019 [place] mmol/L 12:58 PM SALES AND PRODUCTION MANAGER Bicarbonate, S 29 22 - 29 04/12/2019 [place] mmol/L 12:58 PM SALES AND PRODUCTION MANAGER Anion Gap 10 7 - 15 04/12/2019 [place] 12:58 PM SALES AND PRODUCTION MANAGER BUN (Blood Urea 16 8 - 24 04/12/2019 [place] Nitrogen), S mg/dL 12:58 PM SALES AND PRODUCTION MANAGER Creatinine 0.90 0.74 - 04/12/2019 [place] 1.35 mg/dL 12:58 PM SALES AND PRODUCTION MANAGER eGFR-Non 86 >=60 04/12/2019 [place] Black/ mL/min/BSA 12:58 PM SALES AND PRODUCTION MANAGER [place] Comment: ----ADDITIONAL INFORMATION---- Estimated GFR calculated using the 2009 CKD_EPI creatinine equation. eGFR-Black/ >90 >=60 mL/min/BSA 2018 12:58 PM SALES AND PRODUCTION MANAGER [facility] Comment: ----ADDITIONAL INFORMATION---- Estimated GFR calculated using the 2009 CKD_EPI creatinine equation. Calcium, Total, S 9.9 8.8 - 10.2 mg/dL 04/12/2019 12:5 8 PM SALES AND PRODUCTION MANAGER [facility] Glucose, S 90 70 - 140 mg/dL 04/12/2019 12:58 PM SALES AND PRODUCTION MANAGER [place] Specimen Anatomical Collection Method Collection Time Receive d Time (Source) Location / / Volume Laterality Blood (Blood, 04/12/2019 8:01 AM 04/12/20 19 Venous) SALES AND PRODUCTION MANAGER 11:18 AM SALES AND PRODUCTION MANAGER Leta Sanchez M.D. LAB BLOOD ADD-ON Performing Organization Address City/State/ZIP Code Phon e Number [facility]- [address] [place] [address] [facility] [address] System in [place] [address] (ABNORMAL) CBC without Differential (04/12/2019 8:01 AM SALES AND PRODUCTION MANAGER) [facility] gist Method Time Signature Hemoglobin 15.6 13.2 - 04/12/2019 FB60 16.6 g/dL 9:19 AM SALES AND PRODUCTION MANAGER Hematocrit 48.5 38.3 - 04/12/2019 FB60 48.6 % 9:19 AM SALES AND PRODUCTION MANAGER Erythrocytes 5.47 4.35 - 04/12/2019 FB60 5.65 9:19 AM SALES AND PRODUCTION MANAGER x10(12)/L MCV 88.7 78.2 - 04/12/2019 FB60 97.9 fL 9:19 AM SALES AND PRODUCTION MANAGER RBC Distrib Width 14.1 11.8 - 04/12/2019 FB60 14.5 % 9:19 AM SALES AND PRODUCTION MANAGER Platelet Count 315 135 - 317 04/12/2019 FB60 x10(9)/L 9:19 AM SALES AND PRODUCTION MANAGER Leukocytes 10.6 (H) 3.4 - 9.6 04/12/2019 FB60 x10(9)/L 9:19 AM SALES AND PRODUCTION MANAGER Specimen Anatomical Collection Method Collection Time Receive d Time (Source) Location / / Volume Laterality Blood (Blood, 04/12/2019 8:01 AM 04/12/20 8:01 Venous) SALES AND PRODUCTION MANAGER AM SALES AND PRODUCTION MANAGER Leta Sanchez M.D. LAB BLOOD ADD-ON Performing Organization Address City/State/ZIP Code Phon e Number [facility] [address] [place] [address] [facility] [address] [place] [address] System [address] documented in this encounter Visit Diagnoses Diagnosis Coronary Artery Disease With Stable Gladis na (HCC) - Primary Coronary Stent Status Post Hypertensive Heart And Chronic Kidney Di sease Without Heart Failure And With Stage 2 (Mild) Chronic Kidney Disease Malignant Neoplasm Of Bladder Lateral Wa ll (HCC) Bronchitis Chronic (HCC) Abuse Tobacco Smoking Insomnia Primary Osteoarthritis Knee Bilateral Hyperlipidemia High Risk Medication documented in this encounter Additional Health Concerns Assessment Noted Time PHQ-9 Depression Total Score: 18 06/23/2018 8:30 AM CS T documented as of this encounter Care Teams Citizenship Teacher Relationship Specialty Start Date End Date Leta Sanchez M.D. PCP - General 10/17/16 10/18/19 documented as of this encounter
--- OUTSIDE RECORDS SUMMARY | 2022-03-29 07:47 | XMS_ITS | Encounter Summary ---
:1950 Author Organization [facility] Address [address] [place] [address] Care Team Providers Name Role Phone Leta Sanchez M.D. Primary Care Provider Reason for Visit Reason Onset Date Comments injection follow up 12/23/2018 Encounter Details Date Type Department Care Team Description 12/23/2018 Clinical Department of Physical greg Quinn follow Communication Medicine and [facility] in [place], [place] [address] [place] [phone] Social History Tobacco Use Types Packs/Day [...] How often do you attend uatsdin or anglican services? 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 - 12/31/2018 9:59 AM CDT Message left for patient to return my call. Letter mailed to patient as well. Telephone Encounter - Kenia Quinn L.P.N. - 12/30/2018 11:58 AM CDT Message left for patient to return my call. Telephone Encounter - Mary Melendez - 12/28/2018 2:53 PM CDT Reason for Communication: Patient returned your call Current Can Nursing/Provider leave a detailed message: Did the patient refuse triage through Nurse line? (for symptom based concerns): Action Needed: Please call again Name of Medication (if relevant): Telephone Encounter - Kenia Quinn L.P.N. - 12/23/2018 2:10 PM CDT Message left for patient to return my call. documented in this encounter Plan of Treatment Upcoming Encounters Date Type Specialty Care Team Description 04/12/2022 Office Visit Cardiovascular Disease Simone Gooden AP RN, C.N.P. [address] [place] [phone] (Wo rk) documented as of this encounter Visit Diagnoses Not on filedocumented in this encounter Additional Health Concerns Assessment Noted Time PHQ-9 Depression Total Score: 18 06/23/2018 8:30 AM CS T documented as of this encounter Care Teams Demo Event Specialist Relationship Specialty Start Date End Date Leta Sanchez M.D. PCP - General 10/17/16 10/18/19 documented as of this encounter
--- OUTSIDE RECORDS SUMMARY | 2022-03-29 07:47 | XMS_ITS | Encounter Summary ---
:1950 Author Organization [facility] Address [address] [place] [address] Care Team Providers Name Role Phone Leta Sanchez M.D. Primary Care Provider Reason for Referral Physical Therapy (Routine) - Closed Specialty Diagnoses / Procedures Referred By Contact Refer red To Contact Diagnoses Pain Knee Bilateral Arthritis Knee Chondrocalcinosis Knee Left Chondrocalcinosis Knee Right Swelling Knee Right Obesity Body Mass Index 30-39.9 Adult Gil Cardona D.O. [facility] [address] [place] [address] [place] [address] Phone: [phone] Referral ID Status Reason Start Date Expiration Visits Visits Date Requested Authorized [id number] Closed Patient 01/13/2019 01/13/2020 1 1 Preference Reason for Visit Reason Comments Results Encounter Details Date Type Department Care Team Description 01/07/2019 Clinical Communication Department of Physical Anish Cardona A, Results Medicine [place] [address] [place] [place], [place] [address] [facility] [address] [facility] [place] [phone] [address] (Work) [phone] Social History Tobacco Use Types Packs/Day Years [...] How often do you attend buddhism or protestant services? 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 - 01/14/2019 8:28 AM CDT Given information. Not sure what to do going forward and wants to think it over. Will call back and let us know how he would like to proceed. Telephone Encounter - Gil Cardona D.O. - 01/13/2019 5:39 PM CDT New referral placed initiate formal physical therapy at [facility] - have him call [phone] to schedule his physical therapy appointment(s). Too soon to repeat his right knee intra-articular aspiration/corticosteroid injection with ultrasound guidance for further treatment purposes. Additional injection treatment options include a right knee intra-articular aspiration/viscosupplementation injection with ultrasound guidance and a right knee intra-articular platelet rich plasma injection with ultrasound guidance for further treatment purposes. Happy to see the patient back in clinic to address his right knee pain, but please inform that if he is interested in moving forward with a different injection treatment option that neither of these injections would be able to be completed during that same day as his next clinical visit. Would have to obtain prior authorization if interestedin doing a viscosupplementation injection for the right knee and bring in the proper equipment to complete the right knee platelet rich plasma injection with ultrasound guidance in clinic, which costs $1000 out of pocket for the patient. Please inform the patient of the above information and let me know how he would like to proceed moving forward. Gil Cardona DO, CAQSM Rice Cleaning Machine Tender Parcel Post Weigher Physical Medicine & Rehabilitation Telephone Encounter - Kenia Quinn L.P.N. - 01/13/2019 10:19 AM CDT Has not done PT. Did not like staff at [facility]. Would like to try [facility] instead if possible.No weight loss. Has been taking tylenol and using ice for pain. Right knee is worse and states it's full of fluid that he would like to have drained. Current pain level for right knee is 8-9. Left kneeis doing pretty good with a current pain level of 2-3. Would like to have an appt to address right knee and have fluid removed. Stated that it is okay to leave a detailed message on his voicemail if there is no answer. Telephone Encounter - Gil Cardona D.O. - 01/12/2019 9:16 PM CDT Please attempt to call the patient again to inform of information below. Gil Cardona DO, CAQSM Rice Cleaning Machine Tender Parcel Post Weigher Physical Medicine & Rehabilitation Telephone Encounter - Kenia Quinn L.P.N. - 01/08/2019 11:43 AM CDT Message left for patient to return my call. Telephone Encounter - Rebekah Del Real - 01/08/2019 9:31 AM CDT Patient returned call [phone] Telephone Encounter - Kenia Quinn L.P.N. - 01/07/2019 1:54 PM CDT Message left for patient to return my call. Telephone Encounter - Gil Cardona D.O. - 01/07/2019 12:53 PM CDT Pain log received from bilateral knee intra-articular aspirations/corticosteroid injections with US guidance on 12/07/2018. Pain was noted to be 5/10 before/after the procedures, 3/10 1 hour and 6 hours after procedures, and 1/10 the morning after/1 week/2 weeks after the procedures. On 01/07/2019 the patient states that his knees are hurting again, 7 sometimes worse. Recommended Tylenol/ice as needed for improvement of pain/discomfort. Avoid nonsteroidal anti-inflammatory medications because of his Zestril blood pressure medication. Asked if started physical therapy at [facility] for further treatment purposes. Ask if any weight changes since the patient's last clinical visit. Please obtain answers to the above questions to help determine appropriate further medical care moving forward. Gil Cardona DO, CAQSM Rice Cleaning Machine Tender Parcel Post Weigher Physical Medicine & Rehabilitation documented in this encounter Plan of Treatment Upcoming Encounters Date Type Specialty Care Team Description 04/12/2022 Office Visit Cardiovascular Disease Simone Gooden AP RN, C.N.P. [address] [phone] (Wo rk) documented as of this encounter Visit Diagnoses Diagnosis Pain Knee Bilateral - Primary Arthritis Knee Chondrocalcinosis Knee Left Chondrocalcinosis Knee Right Swelling Knee Right Obesity Body Mass Index 30-39.9 Adult documented in this encounter Additional Health Concerns Assessment Noted Time PHQ-9 Depression Total Score: 18 06/23/2018 8:30 AM CS T documented as of this encounter Care Teams Industrial Psychology Professor Relationship Specialty Start Date End Date Leta Sanchez M.D. PCP - General 10/17/16 10/18/19 documented as of this encounter
--- OUTSIDE RECORDS SUMMARY | 2022-03-29 07:47 | XMS_ITS | Encounter Summary ---
:1950 Author Organization [facility] Address [address] [place] [address] Care Team Providers Name Role Phone Leta Sanchez M.D. Primary Care Provider Reason for Visit Reason Comments Med Refill Encounter Details Date Type Department Care Team Description 04/05/2019 Refill Department of [facility] Ambrosio Sanchez M.D. Med Refill Internal Medicine in [address] [place] [address], [facility] [address] [place] [address] [facility] [address] Social History Tobacco Use Types [...] How often do you attend taoism or sabianist services? 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 [address] [place], [place] [phone] (Wo rk) documented as of this encounter Visit Diagnoses Not on filedocumented in this encounter Additional Health Concerns Assessment Noted Time PHQ-9 Depression Total Score: 18 06/23/2018 8:30 AM CS T documented as of this encounter Care Teams Machine Gunner Relationship Specialty Start Date End Date Leta Sanchez M.D. PCP - General 10/17/16 10/18/19 documented as of this encounter
--- OUTSIDE RECORDS SUMMARY | 2022-03-29 07:47 | XMS_ITS | Encounter Summary ---
:1950 Author Organization [facility] Address [address] [place] [address] Care Team Providers Name Role Phone Leta Sanchez M.D. Primary Care Provider Reason for Visit Reason Comments Follow-up post op bladder biopsies Outpatient (Routine) - Closed Specialty Diagnoses / Procedures Referred By Contact Refer red To Contact Urology Diagnoses PAR REVIEW Jatinder Camejo M.D. [facility] [address] [place] [address] Referral ID Status Reason Start Date Expiration Date Visits Requ ested Visits Authorized [id number] Closed 09/07/2018 09/07/2019 1 1 Encounter Details Date Type Department Care Team Description 10/19/2018 Office Visit Department of Urology Katlyn Crawford, Malignant Neoplasm Of in [facility] CASEY, C.N.P. Bladder (HCC) [place] [address] (Primary Dx) [address] [place] [address] [phone] Social History Tobacco Use Types Packs/Day Years [...] How often do you attend scientologist or mandaeism services? 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 - 10/19/2018 9:30 AM CDT SUBJECTIVE CHIEF COMPLAINT/REASON FOR VISIT Bladder Cancer, s/p bladder biopsies HISTORY OF PRESENT ILLNESS Mik is a very pleasant 68 year old male here today for a postoperative visit after bladder biopsies and mitomycin-C placement in the operating room with Dr. Camejo. He has a history of transitional cell carcinoma the urinary bladder, left lateral wall with three recurrences. He is also here to have his catheter removed. This is completed with the nursing staff, his catheteris removed and he is able to urinate without complication. Bladder Cancer History February 2010: Initial Resection: low-grade noninvasive, multifocal. ?? 6 weeks induction therapy of BCG. ?? January 02, 2015: Repeat Resection: low-grade stage TA. ?? 2nd induction course of BCG. ?? February 2016: Repeat Resection: grade 1, stage TA. ?? 3rd induction course of BCG with interferon. August 21, 2017: biopsies obtained in clinic were negative, this area was cauterized. May 20, 2018: Repeat resection: low grade stage TA, Mitomycin C given October 14, 2018: Repeat resection: negative for malignancy, Mitomycin C given. The following portions of the patient's history were reviewed and updated as appropriate: allergies,current medications, family history, medical history, social history, surgical history and problem list. REVIEW OF SYSTEMS Gastrointestinal: Negative for constipation. Genitourinary: Negative for incontinence, difficulty urinating, pain with urination, hematuria, urgency and frequent urination. OBJECTIVE Vitals: 10/19/18 0921 BP: 134/73 Patient Position: Sitting Pulse: 78 Temp: 37.1 ??C TempSrc: Temporal PHYSICAL EXAM Vitals and nursing note reviewed. General: Well developed, well nourished, well groomed male in no acute distress. Neurological: Alert, cooperative, oriented x3. Appropriate mood and affect. Head: Normal appearance, no abnormalities, normocephalic. Neck: Symmetrical and supple, trachea is midline. Cardiac: regular rate, regular rhythm Respiratory: Respirations are unlabored with normal respiratory rate and normal respiratory movements. Normal chest wall expansion without use of accessory muscles. Abdomen: Soft, non-tender, non-distended Extremities: Warm, without edema or ulcerations. PATH TISSUE EXAM Resulted: 10/15/2018 4:42 PM [facility] Component Name Value Ref Range Case Report Pathology Report?Case: [id number]? Authorizing Provider:?Jatinder Camejo MD? Collected:? 10/14/2018 0758? Ordering Location: [facility]?Received:?10/14/2018 1036? Pathologist: Tom Blount MD? Final Diagnosis A) BLADDER, SUSPICIOUS AREA LEFT LATERAL WALL, TRANSURETHRAL RESECTION: 1. Mild chronic cystitis, nonspecific 2. Sampling includes: Urothelium, lamina propria, muscularis propria 3. Negative for atypia and malignancy B) BLADDER, DOME, BIOPSY: 1. Chronic cystitis with surface ulceration and reactive urothelial atypia 2. Sampling includes: Urothelium, lamina propria 3. Negative for malignancy C) BLADDER, RIGHT LATERAL WALL, BIOPSY: 1. Mild chronic cystitis, nonspecific 2. Sampling includes: Urothelium, lamina propria, muscularis propria 3. Negative for atypia and malignancy D) PROSTATIC URETHRA, BIOPSY: 1. Mild chronic urethritis, nonspecific 2. Negative for atypia and malignancy ASSESSMENT / PLAN #1 Bladder Cancer, non-invasive papillary urothelial carcinoma, low grade He is very pleased with his biopsy results, he also received a dose of mitomycin-C. He will return to clinic in approximately 4 months for repeat cystoscopy for bladder cancer surveillance. If he has any issues prior to that time, he will contact us. Signed by: Katlyn Crawford APRN, C.N.PBhavesh 10/19/2018 9:41 AM documented in this encounter Plan of Treatment Upcoming Encounters Date Type Specialty Care Team Description 04/12/2022 Office Visit Cardiovascular Disease Simone Gooden AP RN, C.N.P. [address] [place], [place] [phone] (Wo rk) documented as of this encounter Visit Diagnoses Diagnosis Malignant Neoplasm Of Bladder (HCC) - Pr imary documented in this encounter Additional Health Concerns Assessment Noted Time PHQ-9 Depression Total Score: 18 06/23/2018 8:30 AM CS T documented as of this encounter Care Teams Assistant Printer Floor Covering Relationship Specialty Start Date End Date Leta Sanchez M.D. PCP - General 10/17/16 10/18/19 documented as of this encounter
--- OUTSIDE RECORDS SUMMARY | 2022-03-29 07:47 | XMS_ITS | Encounter Summary ---
:1950 Author Organization [facility] Address [address] [place] [address] Care Team Providers Name Role Phone Leta Sanchez M.D. Primary Care Provider Encounter Details Date Type Department Care Team Description 01/07/2019 Clinical Communication Department of Jatinder Evans Medicine, [facility], in [facility] [place], [place] [address] [facility] [place] [address] [place], [place] [phone] [address] (Work) [phone] Social History Tobacco Use Types Packs/Day Years [...] How often do you attend orthodox or cheondoism services? 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 Telephone Encounter - Ondina Powers R.N. - 01/07/2019 12:17 PM CDT Unsure why patient is scheduled for April. Per order and last urology visit note, patient is to be seen for 4 month follow up which would be mid February. April appointment should be rescheduled to mid February with Dr. Camejo. Thank you! Telephone Encounter - Aurora Man - 01/07/2019 11:35 AM CDT Mik is scheduled for a cystoscopy in April. He is currently on a wait list per call center but ishoping to be seen sooner for this since he is actually due mid-February. Please call Mik at [phone]. documented in this encounter Plan of Treatment Upcoming Encounters Date Type Specialty Care Team Description 04/12/2022 Office Visit Cardiovascular Disease Simone Gooden AP RN, C.N.P. [address] [phone] ([place]o ) documented as of this encounter Visit Diagnoses Not on filedocumented in this encounter Additional Health Concerns Assessment Noted Time PHQ-9 Depression Total Score: 18 06/23/2018 8:30 AM CS T documented as of this encounter Care Teams Machine Set Up Technician Relationship Specialty Start Date End Date Leta Sanchez M.D. PCP - General 10/17/16 10/18/19 documented as of this encounter
--- OUTSIDE RECORDS SUMMARY | 2022-03-29 07:47 | XMS_ITS | Encounter Summary ---
:1950 Author Organization [facility] Address [address] [place] [address] Care Team Providers Name Role Phone Leta Sanchez M.D. Primary Care Provider Encounter Details Date Type Department Care Team Description 12/07/2018 Ancillary Procedure Department of Physical Medicine and Rehab Social History Tobacco Use Types Packs/Day Years [...] How often do you attend denominational or yazidism services? 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 [address] [place] [phone] (Wo rk) documented as of this encounter Procedures Procedure Name Priority Date/Time Associated Diagnosis Comme [facility] PHYSICAL MEDICINE Routine 12/07/2018 10:35 AM Res ults for this AND REHAB IMAGE CDT procedure ar e in EXAM the results section. documented in this encounter Results Non-Radiology Image-Physical Medicine And Rehab Image Exam (12/07/2018 10:35 AM CDT) Specimen (Source) Anatomical Collection Method Collection Time Re ceived Time Location / / Volume Laterality 12/07/2018 10:35 AM CDT Narrative [facility] - 12/07/2018 12:11 PM CDT This order has been created and auto-finalized to support the import of images acquired without order. The clini ming documentation to support these images can be found on the encounter lynda t produced images. Provider Not In System IMG NON RAD IMAGING PROCEDUR ES Performing Organization Address City/State/ZIP Code Phon e Number [facility] NA documented in this encounter Visit Diagnoses Not on filedocumented in this encounter Additional Health Concerns Assessment Noted Time PHQ-9 Depression Total Score: 18 06/23/2018 8:30 AM CS T documented as of this encounter Care Teams Lens Assorter Relationship Specialty Start Date End Date Leta Sanchez M.D. PCP - General 10/17/16 10/18/19 documented as of this encounter
--- OUTSIDE RECORDS SUMMARY | 2022-03-29 07:47 | XMS_ITS | Encounter Summary ---
:[address] [facility] Address [address] [place] [address] Care Team Providers Name Role Phone Leta Sanchez M.D. Primary Care Provider Reason for Visit Reason Comments [facility] 4 month[facility] ([facility]) - Canceled Specialty Diagnoses / Procedures Referred By Contact Refer red To Contact Diagnoses Malignant Neoplasm Of Bladder (HCC) PAR Katlyn Crawford, MAIL HANDLER SORTER, [facility] Procedures Cystoscopy (specific provider) C.N.P. [address] [place] [address] Referral ID Status Reason Start Date Expiration Date Visits V isits Requested Authorized [id number] Canceled 10/19/2018 10/19/2019 1 1 Encounter Details Date Type Department Care Team Description 02/18/2019 Office Visit Department of Urology Jatinder Camejo Mal ignant Neoplasm Of in [facility] M.[facility]. Bladder (HCC) [address] [place] [phone] Social History Tobacco Use Types Packs/Day [...] How often do you attend jewish or voodoo services? 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 - 02/18/2019 1:45 PM CDT CHIEF COMPLAINT/REASON FOR VISIT Cystoscopy. ?? The patient was appropriately identified with at least two separate identifiers and the correct procedure was confirmed. ??Verbal consent was obtained. ?? INDICATION: ??Bladder cancer surveillance February 2010: Initial Resection: low-grade [...] resection: negative for malignancy, Mitomycin C given. ? INSTRUMENT: ??Flexible cystourethroscope. ANESTHESIA: ??2% aqueous lidocaine jelly introduced into the urethra. ?? PROCEDURE: ??The patient was placed in a supine position. ??The genitalia were prepped and draped sterilely. ??The urethra was anesthetized with 2% aqueous lidocaine jelly. ??The cystoscope was advanced into the urethra. ?? FINDINGS: ?? Meatus: ??Normal. ?? Urethra: ??notable for urethral stricture not requiring dilation,??stricture calibrate to approximately 14-16 Pashto.?? This was dilated by passage of the [...] instructions were reviewed with him. ?? IMPRESSION: ?History of transitional cell carcinoma the urinary bladder, low-grade and superficial. No cystoscopic evidence of recurrent disease. ?? PLAN: Send an aliquot of urine for cytology. If this is negative, repeat bladder cancer surveillancein 4 months. Electronically signed by: Jatinder Camejo M.D. 02/18/19 1:55 PM documented in this encounter Plan of Treatment Upcoming Encounters Date Type Specialty Care Team Description 04/12/2022 Office Visit Cardiovascular Disease Simone Gooden AP RN, C.N.P. [address] [phone] ([facility]) documented as of this encounter Procedures Procedure Name Priority Date/Time Associated Diagnosis Comme nts CYTOLOGY NON-RADIO PROGRAM CHECKER Routine 02/18/2019 2:29 PM Malignant Neoplasm Results for this CDT Of Bladder (HCC) procedure a re in the results section. documented in this encounter Results Cytology Non-RADIO PROGRAM CHECKER (02/18/2019 2:29 PM CDT) Component Value Ref Test Analysis Performed At [facility] gist Range Method Time Signature 02/19/2019 [facility] 9:33 AM CDT Fixative 50% REAGENT 02/19/2019 [facility] ALCOHOL 9:33 AM CDT Report Oh Varma MD 02/19/2019 [facility] electronically I verify that I have examined all relevant slides/ma terials 9:33 AM CDT signed by for the specimen(s) and rendered or confirmed the diagnosis. Gross Description Received 100 02/19/2019 [facility] ml of yellow 9:33 AM CDT alcohol fixed fluid Collection void 02/19/2019 [facility] Procedure 9:33 AM CDT Source A. Urine, 02/19/2019 [facility] voided 9:33 AM CDT Clinical History bladder 02/19/2019 [facility] cancer 9:33 AM CDT Interpretation A. Urine, voided (cytospin): Negative for High-Grade 02/19/2019 [facility] Urothelial Carcinoma. 9:33 AM CDT Specimen Anatomical Collection Method Collection Time Receive d Time (Source) Location / / Volume Laterality Varies 02/18/2019 2:29 PM 9 6:48 CDT AM CDT Narrative This result has an attachment that is no t available. Jatinder Camejo M.D. LAB SURG PATH ORDERABLES Performing Organization Address City/State/ZIP Code Phon e Number [facility]- [address] [place] [id number] [place] [address] [place] [address] [facility] Cytology [address] [place] [address] documented in this encounter Visit Diagnoses Diagnosis Malignant Neoplasm Of Bladder (HCC) documented in this encounter Additional Health Concerns Assessment Noted Time PHQ-9 Depression Total Score: 18 06/23/2018 8:30 AM CS T documented as of this encounter Care Teams Program Manufacturing Leader Relationship Specialty Start Date End Date Leta Sanchez M.D. PCP - General 10/17/16 10/18/19 documented as of this encounter
--- OUTSIDE RECORDS SUMMARY | 2022-03-29 07:47 | XMS_ITS | Encounter Summary ---
:1950 Author Organization [facility] Address [address] [place] [address] Care Team Providers Name Role Phone Leta Sanchez M.D. Primary Care Provider Encounter Details Date Type Department Care Team Description 04/02/2019 Orders Only Department of Family Carlene Love Ann ual Medicare Medicine, [facility], in [place], [address] (Primary Dx) [place], [place] [address] [address] [address] [place], [place] [phone] [address] (Work) [phone] Social History Tobacco Use Types Packs/Day Years [...] How often do you attend buddhism or taoist services? 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 [address] [place], [place] [phone] (Wo rk) documented as of this encounter Visit Diagnoses Diagnosis Annual Medicare Examination Return - Ceci alla documented in this encounter Additional Health Concerns Assessment Noted Time PHQ-9 Depression Total Score: 18 06/23/2018 8:30 AM CS T documented as of this encounter Care Teams Actuary Relationship Specialty Start Date End Date Leta Sanchez M.D. PCP - General 10/17/16 10/18/19 documented as of this encounter
--- OUTSIDE RECORDS SUMMARY | 2022-03-29 07:47 | XMS_ITS | Encounter Summary ---
:1950 Author Organization [facility] Address [address] [place] [address] Care Team Providers Name Role Phone Leta Sanchez M.D. Primary Care Provider Reason for Referral Physical Therapy (Routine) - Closed Specialty Diagnoses / Procedures Referred By Contact Refer red To Contact Diagnoses Pain Knee Bilateral Arthritis Knee Chondrocalcinosis Knee Left Obesity Body Mass Index 30-39.9 Adult Gil Cardona [place].O. [address] [place] [address] Referral ID Status Reason Start Date Expiration Visits Visits Date Requested Authorized [id number] Closed Patient 12/02/2018 12/02/2019 12 12 Preference utpatient (Routine) - Closed Specialty Diagnoses / Procedures Referred By Contact Refer red To Contact Diagnoses Pain Knee Bilateral Arthritis Knee Chondrocalcinosis Knee Left Gil Cardona D.O. [facility] [place] [facility] Procedures PMR Peripheral injection/USGI (Procedure Only) [address] [place] [address] Referral ID Status Reason Start Date Expiration Date Visits Requ ested Visits Authorized [id number] Closed 12/02/2018 12/02/2019 1 1 Reason for Visit Reason Comments Bilateral knee pain Ref. Osteoarthritis left knee Outpatient (Routine) - Closed Specialty Diagnoses / Procedures Referred By Referred To Contact Contact Physical Medicine and Diagnoses Primary Osteoarthritis Knee Left PAR REVIEW Leta Sanchez M.D. [facility] Rehabilitation Procedures PMR [address] [facility] [place] [address] [place] [address] Referral ID Status Reason Start Date Expiration Date Visits Requ ested Visits Authorized [id number] Closed 10/05/2018 10/05/2019 1 1 Encounter Details Date Type Department Care Team Description 12/02/2018 Comprehensive Visit Department of Gil Cardona, [place] K nee Bilateral (Primary Dx); Physical Medicine D.O. Arthritis Knee; and Rehabilitation [address] Chondro calcinosis Knee Left; in [place], [place] Swelling Knee Left; [place], [place] Swelling Knee Right; [address] [place] [address] AVE [address] Obesity Body Mass Index 30-39.9 Adult JAYNA THIBODEAUX [phone] [address] (Work) [phone] Social History Tobacco Use Types Packs/Day Years [...] How often do you attend jainism or sikhism services? 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 - 12/02/2018 3:30 PM CDT Follow-Up Plan: __ Prescription medications: None __ Weight loss __ Referrals/labs/imaging/procedures/DME (orders): [facility] - call [phone] to schedule your physical therapy appointment(s); right knee x-rays in Radiology __ Follow-up phone call/portal message: 1-2 business days upon completion of further diagnostic imaging to review results to determine appropriate further medical care moving forward __ Follow-up clinic appointment: For bilateral knee intra-articular aspirations/corticosteroid injections with ultrasound guidance __ Scheduling desk Please feel free to call ([phone]) or message me on the [facility] Patient Portal if you have any questions. I want to thank you for coming into the clinic today. I enjoyed meeting you and am happy that you have trusted us to provide medical care for you today and beyond. I take pride in getting to know to mypatients and understanding their medical history and conditions. This allows me to work with each individual patient on designing an individualized treatment plan to provide the best medical care to optimize improving pain and/or function. As a PM&R (physical medicine & rehabilitation) and sports medicine physician/tubing assembler (expert in bone, muscle, and nerve), my main goal is to help patients like you restore movement and function so you can remain as active as possible. I treat non-surgical/non-operative musculoskeletal, orthopedic, and sports medicine conditions including, but not limited to: ??? Neck pain (disc disease/arthritis, herniated disc, spinal stenosis, strain) ??? Shoulder pain (rotator cuff tears, tendonitis, bursitis, frozen shoulder, impingement) ??? Elbow pain (tennis elbow, golfers elbow, bursitis) ??? Wrist/hand pain (tendonitis, trigger finger, ganglion cysts) ??? Low back pain (disc disease/arthritis, herniated disc, spinal stenosis, strain) ??? Hip pain (bursitis, tendonitis, piriformis syndrome, impingement, strain) ??? Foot/ankle pain (sprains, tendonitis, plantar fasciitis, parra splints) ??? Fractures (stress fractures, compression fractures) ??? Arthritis (knee, shoulder, hip, wrist/hand, elbow, foot/ankle) ??? Adult and pediatric sports medicine ??? Sports-related concussions ??? Ligament, joint and tendon injuries, conditions and disorders ??? Nerve disorders (sciatica, carpal tunnel, tarsal tunnel) Advanced technology that I use to treat patients like yourself includes musculoskeletal ultrasound, steroid injections, platelet rich plasma injections, and TENEX, that have benefits that include improving pain and providing faster recovery times. For more information about the services I offer or for my full profile, I invite you to visit [email or web address]. If you are in need of a clinic appointment for any of the additional services I provide, please call to schedule an appointment at your convenience. documented in this encounter Consult Notes Gil Cardona D.O. - 12/02/2018 3:30 PM CDT Physical Medicine & Rehabilitation Clinic Note Seven Salazar (Seven) is a 68 y.o. right handed male who is seen in consultation at the request Leta Sanchez M.D. for evaluation of bilateral medial knee pain, right greater than the left SUBJECTIVE Symptoms began several years ago without acute precipitating event. Does notes several fall/injuriesover the course of time. Symptoms have been getting worse. Notes bilateral medial knee pain, right greater than the left. Pain is 9/10 at its worst and 3/10 at its best. Symptoms are worse with walkingactivities and better with ice. Notes stiffness of the bilateral knees. Notes weakness of the bilateral knees. Denies any locking, catching, clicking, bruising, swelling, redness, or warmth of the bilateral knees. Notes swelling of the bilateral knees. Notes stiffness of the knees. Notes difficulty sleeping due to pain/discomfort. Treatment has included Aleve and ice. Previously has had his knees drained bilaterally by Dr. Acuña and at [facility] and states he previously had a right kneecorticosteroid [place] [address] King with no relief of symptoms. Notes falls in the last year.. Constitutional: Negative for fever. Skin: Negative for skin rash. Eyes: Negative for visual problems. ENT: Negative for difficulty hearing. Respiratory: Negative for dyspnea. Cardiovascular: Negative for chest pain, pressure or tightness. Gastrointestinal: Negative for constipation. Genitourinary: Negative for difficulty urinating. Hematologic: Negative for bruises or bleeds easily. Musculoskeletal: Positive for joint swelling. The following portions of the patient's history were reviewed and updated as appropriate: allergies,surgical history, current medications, problem list, family history, medical history and social history OBJECTIVE Vitals: 12/02/18 1523 BP: 122/58 Pulse: 80 Resp: 20 Temp: 37.2 ??C BMI Readings from Last 3 Encounters: 10/05/18 31.78 kg/m?? 08/31/18 33.18 kg/m?? 08/07/18 33.84 kg/m?? Wt Readings from Last 3 Encounters: 10/05/18 95.1 kg 08/31/18 95.9 kg 08/07/18 97.8 kg Physical Exam General: alert, obese, and in no acute distress Skin: no suspicious lesions or rashes Psych: mentation appears normal HEENT: no scleral icterus Cardiovascular: no pedal edema Respiratory: normal respiratory effort without conversational dyspnea Neurologic: motor strength as noted below Musculoskeletal: Left knee Inspection: Swelling present without erythema or Palpation: Tenderness - medial femoral condyle No tenderness - patellar tendon, patella, lateral femoral condyle, medial joint line, lateral joint line, medial tibial plateau and lateral tibial plateau Effusion - present Patellofemoral crepitus - present Active Range of Motion: -10 0 extension Passive Range of Motion: 110 0 flexion Strength: Quadriceps - 5/5 Extensor mechanism intact Special Tests: Positive: patellar grind, ballottment and valgus stress test Negative: patella apprehension, Carol's, Nicole's and varus stress test Right knee Inspection: Swelling present without erythema or ecchymosis Palpation: Tenderness - none No tenderness - patellar tendon, patella, lateral femoral condyle, medial femoral condyle, medial joint line, lateral joint line, medial tibial plateau and lateral tibial plateau Effusion - present Patellofemoral crepitus - present Active Range of Motion: -10 0 extension Passive Range of Motion: 120 0 flexion Strength: Quadriceps - 5/5 Extensor mechanism intact Special Tests: Positive: patellar grind, ballottment, valgus stress test and varus stress test Negative: Carol's, Nicole's and bounce home Diagnostics previous film(s) were reviewed today, independent interpretation/visualization of images was completed, and results were discussed with the patient Left tibia/fibula/ankle x-rays - 08/31/2018 IMPRESSION: Chondrocalcinosis and moderate to advanced degenerative change of the left knee. Inferior/superior calcaneal spurs. Bone spurring/narrowing of the medial portion of the tibiotalar joint. Likely degenerative changes noted of the midfoot region. Vascular calcifications present. Lab Results Component Value Date HGBA1C 6.0 (H) 03/04/2017 ASSESSMENT / PLAN #1 Bilateral knee pain #2 Bilateral knee swelling #3 Left knee osteoarthrosis #4 Chondrocalcinosis of the left knee #5 Bilateral knee instability #6 Non morbid obesity Recommended Tylenol/ice as needed for improvement of pain/discomfort. Instructed to avoid nonsteroidal anti-inflammatory medications because of his Zestril blood pressure medication. Discussed formal physical therapy, aqua therapy, etc, and the [facility] with referral placed. Plain radiographs of the right knee ordered for further evaluation. Wished to proceed with bilateral knee intra-articular aspirations/corticosteroid injections with ultrasound guidance with referral placed. Discussed importance of weight loss, including decreased oral intake and increased physical activity. [facility] patient e ducation regarding Treating Your Knee Pain was given to the patient. Telephone call 1-2 business days upon completion of further diagnostic imaging to review results to determine further appropriate medical care moving forward. Follow-up for bilateral knee intra-articular aspirations/corticosteroid injections with ultrasound guidance for further treatment purposes. Gil Cardona DO, MICHAELM Biomass Plant Manager Accounting Software Specialist Department of Physical Medicine & Rehabilitation documented in this encounter Plan of Treatment Upcoming Encounters Date Type Specialty Care Team Description 04/12/2022 Office Visit Cardiovascular Disease Simone Gooden AP RN, C.N.P. [address] [phone] (Wo rk) documented as of this encounter Results ID ARTHCS ASP/INJ MJR JT W US (12/07/2018 [...] Code Phon e Number MMODAL MMODAL NA DX Knee Right 3 Views (12/02/2018 4:47 [...] tricompartmental spurring. Chondrocalcin osis. Vascular calcifications. Gil Cardona D.O. [facility] AMY PLUNKETT documented in this encounter Visit Diagnoses Diagnosis Pain Knee Bilateral - Primary Arthritis Knee Chondrocalcinosis Knee Left Swelling Knee Left Swelling Knee Right Obesity Body Mass Index 30-39.9 Adult Pain Knee Bilateral Pain Knee Bilateral - Primary Arthritis Knee Chondrocalcinosis Knee Left Chondrocalcinosis Knee Right Swelling Knee Left Swelling Knee Right documented in this encounter Additional Health Concerns Assessment Noted Time PHQ-9 Depression Total Score: 18 06/23/2018 8:30 AM CS T documented as of this encounter Care Teams Building Construction Estimator Relationship Specialty Start Date End Date Leta Sanchez M.D. PCP - General 10/17/16 10/18/19 documented as of this encounter
--- OUTSIDE RECORDS SUMMARY | 2022-03-29 07:48 | XMS_ITS | Encounter Summary ---
:1950 Author Organization [facility] Address [address] [place] [address] Care Team Providers Name Role Phone Leta Sanchez M.D. Primary Care Provider Reason for Visit Reason Comments Med Refill Encounter Details Date Type Department Care Team Description 05/28/2018 Refill Department of [facility] Ambrosio Sanchez M.D. Med Refill Internal Medicine in [address] [place] [address], [facility] [[email or web address] [address] [place] [address] [address] [facility] [place] [address] Social History Tobacco Use Types [...] How often do you attend christian or scientologist services? 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 [address] [place], [place] [phone] (Wo rk) documented as of this encounter Visit Diagnoses Not on filedocumented in this encounter Care Teams Sap Portal Architect Relationship Specialty Start Date End Date Leta Sanchez M.D. PCP - General 10/17/16 10/18/19 documented as of this encounter
--- OUTSIDE RECORDS SUMMARY | 2022-03-29 07:48 | XMS_ITS | Encounter Summary ---
:1950 Author Organization [facility] Address [address] [place] [address] Care Team Providers Name Role Phone Leta Sanchez M.D. Primary Care Provider Encounter Details Date Type Department Care Team Description 05/07/2018 Clinical Communication Department of Gareth Sanchez M.D. [facility], Medicine in [address] [facility] [address] [address] [place] [address] Social History Tobacco Use Types Packs/Day [...] week 04/16/2019 How often do you attend presybeterian or protestant services? 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 - 05/08/2018 11:01 AM CST SUBJECTIVE CHIEF COMPLAINT / REASON FOR CALL No chief complaint on file. Patient is requesting the following information: Hold rx PLAN The following information was provided : patient notifed of results and Doctors recommendations Information: patient/caller able to repeat back in their own words The following references were used: provider scout POLISHER Telephone Encounter - Edwin Gabriel C.MDale - 05/08/2018 9:18 AM LAP POLISHER Attempted to contact patient and left a voicemail with call back number. POLISHER Telephone Encounter - Edwin Gabriel C.MDale - 05/07/2018 12:45 PM LAP POLISHER Attempted to contact patient and left a voicemail with call back number. POLISHER Telephone Encounter - Leta Sanchez M.D. - 05/07/2018 12:29 PM CST Please call the patient with Dr. Ruiz's recommendations (please see below). He should continue aspirin. He needs to hold Plavix 5 days prior to the procedure, then restart after the procedure. POLISHER Telephone Encounter - Salomón Ruiz M.D. - 05/07/2018 8:30 AM CST Since his revascularization took place more than a year ago and as his subsequent coronary event occurred more than 6 months ago (managed medically), I believe he should be safe to hold Plavix for 5 days prior to surgery and continue low-dose aspirin in the perioperative period. I would recommend resum ing Plavix as soon as safe from an urological standpoint after the procedure. Thank you both for your help, Salomón POLISHER Telephone Encounter - Jatinder Camejo M.D. - 05/07/2018 8:25 AM CST I would prefer him to hold the Plavix, he can stay on the aspirin. POLISHER Telephone Encounter - Leta Sanchez M.D. - 05/07/2018 8:[address] Ruiz, He is scheduled to have Transurethral resection of bladder tumor and biopsies with mitomycin-c placement on 05/20/[address] [facility]. He takes aspirin 81 mg daily and still taking Plavix 75 mg daily. Does he need to hold aspirin and Plavix prior to procedure? Otherwise he is doing fine and there is no angina. He has been tolerating isosorbide dinitrate. Thank you. Leta POLISHER documented in this encounter Plan of Treatment Upcoming Encounters Date Type Specialty Care Team Description 04/12/2022 Office Visit Cardiovascular Disease Simone Gooden AP RN, C.N.P. [address] [phone] (Wo rk) documented as of this encounter Visit Diagnoses Not on filedocumented in this encounter Care Teams Data Modeling Architect Relationship Specialty Start Date End Date Leta Sanchez M.D. PCP - General 10/17/16 10/18/19 documented as of this encounter
--- OUTSIDE RECORDS SUMMARY | 2022-03-29 07:48 | XMS_ITS | Encounter Summary ---
:1950 Author Organization [facility] Address [address] [place] [address] Care Team Providers Name Role Phone Leta Sanchez M.D. Primary Care Provider Encounter Details Date Type Department Care Team Description 05/08/2018 Clinical Communication [facility] Juany Hebert, Internal Medicine in [place], [place] [address] [place] [phone] Social History Tobacco Use Types Packs/Day Years [...] week 04/16/2019 How often do you attend sabianist or anabaptist services? 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 - 05/08/2018 8:18 AM CST Patient's pre-op information including office note from 05/07/2018 and [facility]ANG faxed to [facility] for patient's upcoming surgery on 05/20/2018. ANICAL OPERATOR documented in this encounter Plan of Treatment Upcoming Encounters Date Type Specialty Care Team Description 04/12/2022 Office Visit Cardiovascular Disease Simone Gooden AP RN, C.N.P. [address] [phone] (Wo rk) documented as of this encounter Visit Diagnoses Not on filedocumented in this encounter Care Teams Retail Operations Manager Relationship Specialty Start Date End Date Leta Sanchez M.D. PCP - General 10/17/16 10/18/19 documented as of this encounter
--- OUTSIDE RECORDS SUMMARY | 2022-03-29 07:48 | XMS_ITS | Encounter Summary ---
:1950 Author Organization [facility] Address [address] [place] [address] Care Team Providers Name Role Phone Riley Sanchez M.D. Primary Care Provider Encounter Details Date Type Department Care Team Description 09/07/2018 Office Visit Department of Family Danyelle Parker Tag Skin (Primary Dx) Medicine, [facility], in [place], [place] [address] [place] [phone] Social History Tobacco Use Types Packs/Day Years [...] week 04/16/2019 How often do you attend restorationism or muslim services? 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 - 09/07/2018 9:00 AM CDTAssociated Order(s): SUTURE REMOVAL Post-Procedure Diagnose(s): Tag Skin Suture Removal Date/Time: 09/07/2018 2:14 PM Performed by: DANYELLE PARKER Authorized by: RILEY SANCHEZ Pre-procedure details: Sutures were placed at [facility] facility: yes Indicaton: scheduled suture removal Location: Trunk Trunk location: Back Procedure details: Wound appearance: No signs of infection Number of sutures removed: 1 Post-procedure details: Procedure completed successfully: yes Complications: no immediate complications Post-removal: No dressing applied Associated attestation - Riley Sanchez M.D. - 09/07/2018 3:16 PM CDT documented in this encounter Plan of Treatment Upcoming Encounters Date Type Specialty Care Team Description 04/12/2022 Office Visit Cardiovascular Disease Simone Gooden AP RN, C.N.P. [address] [phone] (Wo rk) documented as of this encounter Procedures Procedure Name Priority Date/Time Associated Diagnosis Comme nts SUTURE REMOVAL Routine 09/07/2018 9:00 AM Tag Skin Results for this CDT procedure are i n the results section . documented in this encounter Results SUTURE REMOVAL (09/07/2018 9:00 AM CDT) Narrative MMODAL - 09/07/2018 9:00 AM CDT Danyelle Parker, L.P.N. ? 09/07/2018 ??2:17 PM Suture Removal Date/Time: 09/07/2018 2:14 PM Performed by: DANYELLE PARKER Authorized by: RILEY SANCHEZ Pre-procedure details: ??Sutures were placed at [facility] facility: yes ?Indicaton: scheduled suture removal ?Location: ??Trunk ??Trunk location: ??Back Procedure details: ??Wound appearance: ??No signs of infec tion ??Number of sutures removed: ??1 Post-procedure details: ??Procedure completed successfully: yes ?Complications: no immediate complicat ions ?Post-removal: ??No dressing applied Riley Sanchez M.D. PROCEDURE/MINOR SURGICAL ORD ERABLES Performing Organization Address City/State/ZIP Code Phon e Number MMODAL MMODAL NA documented in this encounter Visit Diagnoses Diagnosis Tag Skin - Primary documented in this encounter Additional Health Concerns Assessment Noted Time PHQ-9 Depression Total Score: 18 06/23/2018 8:30 AM CS T documented as of this encounter Care Teams Accounts Payable Professional Relationship Specialty Start Date End Date Riley Sanchez M.D. PCP - General 10/17/16 10/18/19 documented as of this encounter
--- OUTSIDE RECORDS SUMMARY | 2022-03-29 07:48 | XMS_ITS | Encounter Summary ---
:1950 Author Organization [facility] Address [address] [place] [address] Care Team Providers Name Role Phone Leta Sanchez M.D. Primary Care Provider Reason for Visit Reason Comments Med Refill Encounter Details Date Type Department Care Team Description 09/07/2018 Refill Department of [facility] Ambrosio Sanchez M.D. Med Refill Internal Medicine in [address] [place] [address], [facility] [address] [place] [address] 300 [facility] [place] [address] Social History Tobacco Use Types [...] week 04/16/2019 How often do you attend anabaptism or oriental orthodox services? 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 [address] [place], [place] [phone] (Wo rk) documented as of this encounter Visit Diagnoses Not on filedocumented in this encounter Additional Health Concerns Assessment Noted Time PHQ-9 Depression Total Score: 18 06/23/2018 8:30 AM CS T documented as of this encounter Care Teams Gypsum Roofer Relationship Specialty Start Date End Date Leta Sanchez M.D. PCP - General 10/17/16 10/18/19 documented as of this encounter
--- OUTSIDE RECORDS SUMMARY | 2022-03-29 07:48 | XMS_ITS | Encounter Summary ---
:1950 Author Organization [facility] Address [address] [place] [address] Care Team Providers Name Role Phone Leta Sanchez M.D. Primary Care Provider Reason for Visit Reason Onset Date Comments SURGERY DATE 09/07/2018 Encounter Details Date Type Department Care Team Description 09/07/2018 Clinical Communication Department of Urology Jatinder Camejo, SURGERY DATE in Mame Tirado M.D. [address] [place] [phone] Social History Tobacco Use Types Packs/Day Years [...] How often do you attend methodist or buddhism services? 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 - 09/14/2018 11:11 AM CDT Noted in desk interstate planner. Telephone Encounter - Christelle Alcazar - 09/14/2018 10:39 AM CDT SURGEON: DR CAMEJO PRE Op: 10-05-[address] SANCHEZ SURGERY DATE: 10-14-18 (CRISTINE FROM 09/23) PROCEDURES: 1). TRANSURETHRAL RESECTION OF BLADDER TUMOR 2). RANDOM BLADDER BIOPSIES 3). MITOMYCIN-C PLACEMENT ANESTHESIA: [facility] WILL CALL WITH ARRIVAL TIME Telephone Encounter - Ondina Powers R.N. - 09/07/2018 11:57 AM CDT Noted in desk interstate planner Telephone Encounter - Christelle Alcazar - 09/07/2018 11:49 AM CDT SURGEON: DR CAMEJO PRE Op: 09-14-[address] SANCHEZ SURGERY DATE: 09-23-18 PROCEDURES: 1). TRANSURETHRAL RESECTION OF BLADDER TUMOR 2). RANDOM BLADDER BIOPSIES 3). MITOMYCIN-C PLACEMENT ANESTHESIA: [facility] WILL CALL WITH ARRIVAL TIME documented in this encounter Plan of Treatment Upcoming Encounters Date Type Specialty Care Team Description 04/12/2022 Office Visit Cardiovascular Disease Simone Gooden AP RN, C.N.P. [address] [place] [phone] (Wo rk) documented as of this encounter Visit Diagnoses Not on filedocumented in this encounter Additional Health Concerns Assessment Noted Time PHQ-9 Depression Total Score: 18 06/23/2018 8:30 AM CS T documented as of this encounter Care Teams Pot Reliner Relationship Specialty Start Date End Date Leta Sanchez M.D. PCP - General 10/17/16 10/18/19 documented as of this encounter
--- OUTSIDE RECORDS SUMMARY | 2022-03-29 07:48 | XMS_ITS | Encounter Summary ---
:1950 Author Organization [facility] Address [address] [place] [address] Care Team Providers Name Role Phone Leta Sanchez M.D. Primary Care Provider Reason for Visit Reason Comments Follow-up 4 month cancer surveillance Encounter Details Date Type Department Care Team Description 04/30/2018 Procedure visit Department of Urology Jatinder Camejo, Unspecified Bulbous Urethral Stricture Male (Primary Dx); in Javid Tirado Malignant Neoplasm Of Bladder Lateral [facility] (HCC) [place] [address] [place] [phone] Social History Tobacco Use Types [...] week 04/16/2019 How often do you attend congregational or zoroastrianism services? 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 - 04/30/2018 3:30 PM CST CHIEF COMPLAINT/REASON FOR VISIT Cystoscopy. ?? The patient was appropriately identified with at least two separate identifiers and the correct procedure was confirmed. ??Verbal consent was obtained. ?? INDICATION: ??Bladder cancer surveillance ?? 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 ??He had 6 weeks of BCG. ??He had a recurrence resected January 02, 2015 also Grade I, stage Ta. ??He then had a second 6 weeks of BCG. ??A second recurrence in February 2016, also Grade I, Stag e Ta. ??He then had 6 weeks of BCG plus alpha-interferon. ??He is known to have a wide-bore non-obstructing bulbous urethral stricture. Cystoscopy on August 21, 2017 suggested regrowth located on the left lateral wall. Biopsies were obtained in this area was cauterized. Biopsies were benign. He had a negative cystoscopy on November 24, 2017. ?? INSTRUMENT: ??Flexible cystourethroscope. ANESTHESIA: ??2% aqueous lidocaine jelly introduced into the urethra. ?? PROCEDURE: ??The patient was placed in a supine position. ??The genitalia were prepped and draped sterilely. ??The urethra was anesthetized with 2% aqueous lidocaine jelly. ??The cystoscope was advanced into the urethra. ?? FINDINGS: ?? Meatus: ??Normal. ?? Urethra: ??notable for urethral stricture not requiring dilation, stricture calibrate to approximately 16-18 Argentine. Prostate: Length: ??3 cm??centimeters. ?Lateral Lobes: ??Mild hypertrophy with no visual obstruction. ?Middle Lobe: ?absent. ?? Bladder Neck: ??Normal. ?Residual Urine: ??Minimal (< 75 ml). ?? Ureteral Orifices: Singular bilaterally, normal position on the trigone, slit- like in configuration and with clear efflux of urine noted bilaterally. ?? Trabeculation: ??mild. ? Tumors: On the right lateral wall there were several areas of concern for recurrence, the largest isperhaps 5 mm. 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 This does significantly enhance with narrow beam light. Slightly raised and has a hint of papillary appearance. ?? The procedure was well tolerated by the patient. ? He was discharged from the office in satisfactory condition. ??Post-cystoscopy instructions were reviewed with him. ?? IMPRESSION: ?? history of transitional cell carcinoma the urinary bladder, probable recurrence. ?? PLAN: ??I am recommending that we proceed to the operating room for bladder biopsies and fulguration. This will also include instillation of mitomycin-C chemotherapy. There is a possibility that this will be urothelial hyperplasia, but I am concerned that this may represent recurrent urothelial carcinoma or carcinoma in situ. The patient was informed that he may need additional intravesical therapy. If this is necessary, I would be inclined to consider gemcitabine. Given the visual findings in his bladder, I see no reason to send his urine for cytology and Urovysion??? fluorescence in situ hybridization (FISH or FUROC) as it will not change our plan of action. Electronically signed by: Jatinder Camejo M.D. 04/30/18 3:55 PM SPORTATION MANAGER documented in this encounter Plan of Treatment Upcoming Encounters Date Type Specialty Care Team Description 04/12/2022 Office Visit Cardiovascular Disease Simone Gooden AP RN, C.N.P. [address] [place], [place] [phone] (Wo rk) documented as of this encounter Visit Diagnoses Diagnosis Unspecified Bulbous Urethral Stricture M adolph - Primary Malignant Neoplasm Of Bladder Lateral Wa ll (HCC) documented in this encounter Care Teams Front Desk Associate Relationship Specialty Start Date End Date Leta Sanchez M.D. PCP - General 10/17/16 10/18/19 documented as of this encounter
--- OUTSIDE RECORDS SUMMARY | 2022-03-29 07:48 | XMS_ITS | Encounter Summary ---
:1950 Author Organization [facility] Address [address] [place] [address] Care Team Providers Name Role Phone Leta Sanchez M.D. Primary Care Provider Encounter Details Date Type Department Care Team Description 09/04/2018 Clinical Communication Department of Gareth Sanchez M.D. [facility] Internal [facility], Medicine in [address] [facility] [address] [address] [place] [address] Social History Tobacco Use Types [...] How often do you attend shinto or amish services? 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 (for symptom based concerns):na Action Needed: please call him back Name of Medication (if relevant): na documented in this encounter Plan of Treatment Upcoming Encounters Date Type Specialty Care Team Description 04/12/2022 Office Visit Cardiovascular Disease Simone Gooden AP RN, C.N.P. [address] [place] [phone] (Wo ) documented as of this encounter Visit Diagnoses Not on filedocumented in this encounter Additional Health Concerns Assessment Noted Time PHQ-9 Depression Total Score: 18 06/23/2018 8:30 AM CS T documented as of this encounter Care Teams Sr. Logistics Analyst Relationship Specialty Start Date End Date Leta Sanchez M.D. PCP - General 10/17/16 10/18/19 documented as of this encounter
--- OUTSIDE RECORDS SUMMARY | 2022-03-29 07:48 | XMS_ITS | Encounter Summary ---
:1950 Author Organization [facility] Address [address] [place] [address] Care Team Providers Name Role Phone Leta Sanchez M.D. Primary Care Provider Reason for Visit Outpatient (Routine) - Canceled Specialty Diagnoses / Procedures Referred By Contact Refer red To Contact Diagnoses Malignant Neoplasm Of Bladder (HCC) Jatinder Camejo M.D. [facility] Region Procedures [place] Fluoro Less Than 1 Hour TN FLUOROSCOPY EXAM UP TO 1 HR HC FLUOROSCOPY EXAM UP TO 1 HR TN FLUOROSCOPY EXAM UP TO 1 HR [address] [place] [phone] Referral ID Status Reason Start Date Expiration Date Visits V isits Requested Authorized [id number] Canceled 10/14/2018 10/14/2019 1 1 Encounter Details Date Type Department Care Team Description 10/14/2018 Hospital Encounter Department of Dawna Camejo Neoplasm Of Radiology in Javid Tobias Bladder (HCC) [place], [place] [address] [place] [phone] Social History Tobacco Use Types Packs/Day Years [...] How often do you attend scientologist or moravian services? 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 HYDROcodone-acetaminophe 0 05/20/2018 10/19/2018 n (NORCO) 5-325 mg per tablet isosorbide dinitrate Take 1 tablet (10 mg [...] Disease Simone Gooden AP RN, C.N.P. [address] [phone] (Wo rk) documented as of this encounter Visit Diagnoses Diagnosis Malignant Neoplasm Of Bladder (HCC) documented in this encounter Additional Health Concerns Assessment Noted Time PHQ-9 Depression Total Score: 18 06/23/2018 8:30 AM CS T documented as of this encounter Care Teams Gear Repairer Relationship Specialty Start Date End Date Leta Sanchez M.D. PCP - General 10/17/16 10/18/19 documented as of this encounter
--- OUTSIDE RECORDS SUMMARY | 2022-03-29 07:48 | XMS_ITS | Encounter Summary ---
:1950 Author Organization [facility] Address [address] [place] [address] Care Team Providers Name Role Phone Leta Sanchez M.D. Primary Care Provider Reason for Visit Reason Comments Med Refill Encounter Details Date Type Department Care Team Description 05/28/2018 Refill Department of [facility] Ambrosio Sanchez M.D. Med Refill Internal Medicine in [address] [place] [address], [facility] [address] [place] [address] 300 [facility] [place] [address] Social History Tobacco Use Types [...] week 04/16/2019 How often do you attend mormon or mandaeism services? 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 [address] [place], [place] [phone] (Wo rk) documented as of this encounter Visit Diagnoses Not on filedocumented in this encounter Care Teams Mortgage Consultant Relationship Specialty Start Date End Date Leta Sanchez M.D. PCP - General 10/17/16 10/18/19 documented as of this encounter
--- OUTSIDE RECORDS SUMMARY | 2022-03-29 07:48 | XMS_ITS | Encounter Summary ---
:1950 Author Organization [facility] Address [address] [place] [address] Care Team Providers Name Role Phone Leta Sanchez M.D. Primary Care Provider Reason for Referral Outpatient (Routine) - Closed Specialty Diagnoses / Procedures Referred By Contact Refer red To Contact Urology Diagnoses PAR REVIEW Jatinder Camejo M.D. [facility] [address] [phone] Referral ID Status Reason Start Date Expiration Date Visits Requ ested Visits Authorized [id number] Closed 09/07/2018 09/07/2019 1 1 utpatient (Routine) - Closed Specialty Diagnoses / Procedures Referred By Contact Refer red To Contact Family Medicine Diagnoses 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HCC) Jatinder Camejo M.D. [facility] [address] [phone] Referral ID Status Reason Start Date Expiration Date Visits Requ ested Visits Authorized [id number] Closed 09/07/2018 09/07/2019 1 1 Reason for Visit Reason Comments Follow-up cystoscopy, 3 month bladder cancer surveillance Appointment Request (Routine) - Closed Specialty Diagnoses / Procedures Referred By Contact Refer red To Contact Urology Diagnoses PAR Review [facility] [place] Region Procedures URO EST LONG Referral ID Status Reason Start Date Expiration Date Visits Requ ested Visits Authorized [id number] Closed 05/25/2018 05/25/2019 1 1 Encounter Details Date Type Department Care Team Description 09/07/2018 Office Visit Department of Urology Jatinder Camejo Mal ignjolie Neoplasm Of Bladder Lateral Wall (HCC) (Primary Dx); in Mame Tirado M.D. Malignant Neoplasm Of Bladder (HCC); [address] Unspecified Bulbous [place] [phone] Social History Tobacco Use Types Packs/Day Years [...] How often do you attend lutheran or yazdanism services? 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 - 09/07/2018 11:00 AM CDT CHIEF COMPLAINT/REASON FOR VISIT Cystoscopy. ?? The patient was appropriately identified with at least two separate identifiers and the correct procedure was confirmed. ??Verbal consent was obtained. ?? INDICATION: ??Bladder cancer surveillance ?? This is a 68-year-old male who has a history of transitional cell carcinoma the urinary bladder which was originally resected in February 2010. This was low- grade noninvasive, although multifocal. He received 6 weeks induction therapy of BCG. He had a 2nd resection on January 02, 2015, also low-grade stage TA. He then received a 2nd induction course of BCG. A 2nd recurrence was identified in February 2016, also grade 1, stage TA. He then had a 3rd induction course of BCG combined with interferon. Cystoscopy on August 21, 2017 suggested a regrowth on the left lateral wall, a biopsies obtained in the clinic were negative in this area was cauterized. On May 20, 2018 he was taken to the operating roomfor a repeat resection. He is here to review the pathology. Mitomycin-C was given. This is his initial cystoscopy, following the resection of May 20, 2018. He reports dark colored urine starting this morning. Urine was collected for cytology this morning, on my inspection it looks light pink. ?? INSTRUMENT: ??Flexible cystourethroscope. ANESTHESIA: ??2% aqueous [...] not requiring dilation,??stricture calibrate to approximately 14-16 Marshallese.?? This was dilated by passage of the cystoscope. Prostate: Length: ??3 cm??centimeters. ?Lateral Lobes: ??Mild hypertrophy with no visual obstruction. ?Middle Lobe: ?absent. ?? Bladder Neck: ??Normal. ?Residual Urine: ??Minimal (<??75 ml). ?? Ureteral Orifices: Singular bilaterally, normal position on the trigone, slit- like in configuration and with clear efflux of urine noted bilaterally. ?? Trabeculation: ??mild. ? 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 A portion of this area appears to be actively bleeding. This does significantly enhance with narrow beam light. Slightly rais ed and has a hint of papillary appearance. ?? The procedure was well tolerated by the patient. ? He was discharged from the office in satisfactory condition. ??Post-cystoscopy instructions were reviewed with him. ?? IMPRESSION: ? history of transitional cell carcinoma the urinary bladder, probable recurrence. ?? PLAN: ??I am recommending that we proceed to the operating room for bladder biopsies and fulguration. This will also include instillation of mitomycin-C chemotherapy. There is a possibility that this will be urothelial hyperplasia, but I am concerned that this may represent recurrent urothelial carcinoma or carcinoma in situ. ?? The patient was informed that he may need additional intravesical therapy. If this is necessary, I will recommend gemcitabine. ?? We will send a cytology. Electronically signed by: Jatinder Camejo M.D. 09/07/18 11:24 AM documented in this encounter Plan of Treatment Upcoming Encounters Date Type Specialty Care Team Description 04/12/2022 Office Visit Cardiovascular Disease Simone Gooden AP RN, C.N.P. [address] [phone] (Wo rk) Scheduled Referrals Name Type Priority Associated Diagnoses Order S chedule Primary Care - CAPRICE Outpatient Referral Routine Malignant Neopl asm Expected: consult (clinic) Of Bladder Lateral 09/07 [place] (HCC) (Approximate), Expires: 09/07/2021 Urology office Outpatient Referral Routine Expect ed: visit (clinic) - 09/28/2018 PRIS[place]A (Approximate), Expires: 09/07/2021 documented as of this encounter Procedures Procedure Name Priority Date/Time Associated Diagnosis Comme nts CYTOLOGY NON-CRATER AND PACKER Routine 09/07/2018 11:27 AM Malignant Neoplas m Results for this CDT Of Bladder Lateral procedure are in Wall (HCC) the results section. documented in this encounter Results (ABNORMAL) Cytology Non-CRATER AND PACKER (09/07/2018 11:27 AM CDT) Component Value Ref Test Analysis Performed At [facility] Range Method Time Signature Gross Description Received 100 09/08/2018 [place] [facility] ml of dark 1:27 PM CDT [facility] alcohol fixed [place] fluid (A) CYTOLOGY Collection voided (A) 09/08/2018 [facility] Procedure 1:27 PM [facility] CYTOLOGY Fixative none (A) 09/08/2018 [facility] 1:27 PM [facility] CYTOLOGY Source A. Urine, 09/08/2018 [facility] voided (A) 1:27 PM [facility] CYTOLOGY Clinical History bladder 09/08/2018 [facility] cancer (A) 1:27 PM [facility] CYTOLOGY Report Azeb Gustafson MD 09/08/2018 [place] [facility] electronically I verify that I have examined all relevant slides/ma terials 1:27 PM [facility] signed by for the specimen(s) and rendered or confirmed the [facility]osi [facility] ([facility]) [place] CYTOLOGY (A) 09/08/2018 [facility] 1:27 PM [facility] CYTOLOGY Interpretation A. Urine, voided (cytospin): Atypical urothelial jordan ls. 09/08/2018 [facility] Blood present. 1:27 PM [facility] (A) [facility] CYTOLOGY Specimen Anatomical Collection Method Collection Time Receive d Time (Source) Location / / Volume Laterality Varies 09/07/2018 11:27 09/07/2018 2:46 AM CDT PM CDT Narrative This result has an attachment that is no t available. Jatinder Camejo M.D. LAB SURG PATH ORDERABLES Performing Organization Address City/State/ZIP Code Phon e Number [facility] [address] [place] [address] CYTOLOGY documented in this encounter Visit Diagnoses Diagnosis Malignant Neoplasm Of Bladder Lateral Wa ll (HCC) - Primary Malignant Neoplasm Of Bladder (HCC) Unspecified Bulbous Urethral Stricture M adolph documented in this encounter Additional Health Concerns Assessment Noted Time PHQ-9 Depression Total Score: 18 06/23/2018 8:30 AM CS T documented as of this encounter Care Teams Crate Liner Relationship Specialty Start Date End Date Leta Sanchez M.D. PCP - General 10/17/16 10/18/19 documented as of this encounter
--- OUTSIDE RECORDS SUMMARY | 2022-03-29 07:48 | XMS_ITS | Encounter Summary ---
:[address] [facility] Address [address] [place] [address] Care Team Providers Name Role Phone Leta Sanchez M.D. Primary Care Provider Reason for Referral Outpatient (Routine) - Closed Specialty Diagnoses / Procedures Referred By Contact Refer red To Contact Cardiovascular Disease Diagnoses PAR REVIEW Salomón Ruiz [facility] Procedures CVD EST LONG M.DBhavesh [address] [place] [address] Referral ID Status Reason Start Date Expiration Date Visits Requ ested Visits Authorized [id number] Closed 08/07/2018 08/07/2019 1 1 Reason for Visit Reason Comments Coronary Artery Disease Hypertension Hyperlipidemia Outpatient (Routine) - Closed Specialty Diagnoses / Procedures Referred By Contact Refer red To Contact Cardiovascular Disease Diagnoses par Salomón Ruiz [facility] Procedures cvd M.D. [address] [place] [address] Referral ID Status Reason Start Date Expiration Date Visits Requ ested Visits Authorized [id number] Closed 03/16/2018 03/16/2019 1 1 Encounter Details Date Type Department Care Team Description 08/07/2018 Office Visit Department of Salomón Ruiz Tobac co Smoking (Primary Dx); Cardiovascular Diseases S, M.DBhavesh [facility]) [facility] [address] [place], [place] [phone] Social History Tobacco Use Types Packs/Day Years [...] How often do you attend mosque or religion services? 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 - 08/07/2018 12:00 PM CDT ASSESSMENT / PLAN 1. ??Coronary artery disease. ?- NSTEMI 07/2017 (C 07/2017 80% Dx2, otherwise, <70% stenosis; medical Rx; type 2 [facility] in the setting of flu) and 03/2017 (s/p RENETTA to the RCA, LCX, mid and pLAD). - NST 03/05/2018 [facility]: small area of mild ischemia at the apex, LVEF 68%.? - Headaches on higher dosages of isosorbide mononitrate, able to tolerate isosorbide dinitrate. Aware of the need to avoid combining PDE 5 inhibitors (which he currently does not take) with nitrates. 2. ??Hypertension. 3. ??Hyperlipidemia. 4. ??Influenza A on 07/2017. 5. ??Chronic bronchitis. 6. ??Tobacco use. 7. ??Post prandial epigastric pain, resolved since his coronary revascularization 03/2017 (as per patient). 8. ??Depression/Anxiety. 9. ??Obesity, BMI 34. 10. ??Ectopy, atrial. 11. ??Polymyalgia rheumatica, as per chart 03/2017. 12. ??Bladder cancer, diagnosed 2009. - Recurrences in 2014, 2015 and 2018, status post resections.? 13. GERD. ?? Coronary artery disease. ??Residual obstructive coronary disease on the 2nd diagonal. Recurrence chest discomfort reported during our last visit has been managed medically. He has not had any recurrences since. He is doing well, active without limitations. Compliant with medication without problems. In case of recurrences, I will consider further up titration nitrates or even the addition of ranolazine to his regimen. No significant bleeding abnormalities. Continue dual antiplatelet therapy. This was briefly stopped for his bladder surgery but has since been resumed. No cardiovascular complicationsduring that procedure. Irregular pulse, chronic issue. This is secondary to atrial ectopy as documented on his latest electrocardiogram. As previously discussed, atrial ectopy is unlikely to cause cardiomyopathy and an echocardiogram is not needed as new symptoms develop. This is not currently the case. ?? Hypertension. Levels are elevated in the office today but apparently well controlled in the outpatient setting. Patient states that he monitors his blood pressure pharmacy and adequate ranges reported,see below. Continue follow-up and management with primary care provider. ??Hyperlipidemia. ??Excellent lipids last year on high-intensity statin therapy. His LDL was 46. He will be seeing Dr. Leta Sanchez M.D. the later on today and labs may be updated at that time. ?? Tobacco use disorder. ??Complete smoking cessation strongly encouraged again today. He states he smoking only 4-5 cigarettes a day and is interested in quitting. A will discuss this in more detail withhis internal medicine doctor today. ? PLAN: 1. Continue current cardiovascular therapy. 2. Follow up with my colleague, Simone Gooden, in 6 months or call us sooner in case of questions concerns or problems. The patient expressed understanding and agreement with the plan. CARDIOLOGY SUBSEQUENT VISIT Location: [facility] CHIEF COMPLAINT Office follow-up. HISTORY OF PRESENT ILLNESS Mr. Seven Salazar is a very pleasant 68 y.o. male who presents to [facility] for follow up. His primary care provider is Leta Sanchez M.D.. Last seen by me on March 2018. Presenting unaccompanied by family. The patient presents today for follow-up stating that he is doing extremely well. He has not had anycardiovascular problems over the past couple of months. He is active without limitations. He works part-time [employer]. He likes [employer] and states that the spring is his time of the year. He was seen by primary care provider May 2018 for preoperative assessment prior to surgical removal of malignancy of his a bladder wall. He checked with me in regards to antiplatelet therapy. Clopidogrel was briefly discontinued without complications. Aspirin was continued throughout perioperative period. The patient did have bleeding issues but did not require transfusion. No cardiovascular complications the perioperative period have been reported. 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 Mitomycin C administered. Seen by primary practitioner June 2018 in view of insomnia with depression. Trazodone was initiated. Patient states he monitors his blood pressure regularly at the pharmacy and generally ranges from 95-100 10/50 to 60 mmHg. PERTINENT CARDIAC (OR RELATED) STUDIES REVIEWED: Electrocardiogram February 2018: Poor data quality Sinus bradycardia, 58 ppm, Premature atrial complexes Low voltage QRS Right bundle branch block Nonspecific ST and T wave abnormality When compared with ECG of 13-OCT-2017 11:22, Right bundle branch block has replaced Incomplete right bundle branch block. Current Outpatient Medications Medication Sig ??? albuterol sulfate 90 mcg/actuation aerosol powdr breath activated Inhale 2 puffs 4 (four) times a day as needed (for shortness of breath and wheezing- Use with spacer chamber.). ??? aspirin 81 mg chewable tablet Chew 81 mg daily. ??? atorvastatin (LIPITOR) 80 mg tablet Take 1 tablet (80 mg total) by mouth at bedtime. ??? clopidogrel (PLAVIX) 75 mg tablet Take 1 tablet (75 mg total) by mouth daily. ??? HYDROcodone-acetaminophen (NORCO) 5-325 mg per tablet ??? isosorbide dinitrate (ISORDIL) 10 mg tablet Take 1 tablet (10 mg total) by mouth 2 (two) times aday. Take 1 tablet in the morning and another 6 hr apart at noon. ??? lisinopril (PRINIVIL,ZESTRIL) 20 mg tablet Take 1 tablet (20 mg total) by mouth every morning. ??? nitroglycerin (for_NITROSTAT) 0.4 mg SL tablet [...] tablet (50 mg total) by mouth at bedtime. ??? metoprolol succinate (for_TOPROL-XL) 25 mg 24 hr tablet Take 1 tablet (25 mg total) by mouth at bedtime. Do not crush or chew. Allergies Allergen Reactions ??? Bupropion Hcl Other (see comments) Eliceo listed no reactions. Suicidal thoughts. ??? Citalopram Diarrhea ??? Influenza Virus Vaccine Bivalent Other (see comments) Sickness, Eliceo listed no reactions. ??? Pravastatin Myalgia and Other (see comments) REVIEW OF SYSTEMS The following systems were negative: Constitutional, Skin, Eyes, ENT, CV, Respiratory, GI, , Hematologic, Musculoskeletal, Neuro, Psych The following portions of the patient's history were reviewed and updated as appropriate: allergies,current medications, family history, medical history, social history, surgical history and problem list. OBJECTIVE Vitals: 08/07/18 1151 08/07/18 1155 08/07/18 1158 BP: 153/62 148/57 (!) 139/52 BP Location: Right arm Left arm Right arm Patient Position: Sitting Sitting Sitting Cuff Size: Large Large Large Pulse: (!) 58 (!) 50 SpO2: 97% Weight: 97.8 kg Height: 170 cm BP Readings from Last 3 Encounters: 08/07/18 (!) 139/52 06/23/18 114/65 05/25/18 150/62 Body mass index is 33.84 kg/m??. PHYSICAL EXAMINATION GENERAL: Patient is awake, alert, oriented x3. No acute distress. EYES: No pallor. No icterus. CHEST/LUNGS: No chest deformity. Normal respiratory effort. Coarse breath sounds with coarse anterior crackles on left hemithorax, mobilized by cough. CARDIOVASCULAR: Normal rate and regular rhythm with ectopy. Normal S1 and S2. No murmurs, rubs, or gallops. LOWER EXTREMITIES: Lower extremity warm with trace edema. UPPER EXTREMITIES: 2+ Radial pulses bilaterally. Normal capillary refill. No cyanosis. DIAGNOSTICS I have reviewed the patient's current laboratory, imaging, and other diagnostic studies. Pertinent laboratory studies have been reviewed and are notable for: Hospital Outpatient Visit on 07/22/2018 Component Date Value ??? Hemoglobin 07/22/2018 14.9 ??? Hematocrit 07/22/2018 44.4 ??? Erythrocytes 07/22/2018 5.12 ??? MCV 07/22/2018 86.7 ??? RBC Distrib Width 07/22/2018 14.8* ??? Platelet Count 07/22/2018 266 ??? Leukocytes 07/22/2018 8.6 ??? Potassium, S 07/22/2018 4.6 ??? Sodium, S 07/22/2018 137 ??? Chloride, S 07/22/2018 101 ??? Bicarbonate, S 07/22/2018 26 ??? Anion Gap 07/22/2018 10 ??? Bld Urea Nitrog(BUN), S 07/22/2018 27* ??? Creatinine, S 07/22/2018 1.18 ??? eGFR-Non Black 07/22/2018 63 ??? eGFR-Black 07/22/2018 72 ??? Calcium, Total 07/22/2018 9.9 ??? Glucose, S 07/22/2018 99 ??? Bilirubin, Total, S 07/22/2018 0.4 ? ? Bilirubin, Direct, S 07/22/2018 <0.2 ??? Aspartate Aminotransfera* 07/22/2018 20 ??? Alanine Aminotransferase* 07/22/2018 15 ??? Alkaline Phosphatase, S 07/22/2018 115 ??? Albumin, S 07/22/2018 4.5 ??? Protein, Total, S 07/22/2018 7.0 ??? Creatine Kinase (CK), S 07/22/2018 122 ??? Sedimentation Rate, B 07/22/2018 24* Office Visit on 03/02/2018 Component Date Value ??? Hemoglobin 03/02/2018 13.7 ??? Hematocrit 03/02/2018 41.8 ??? Erythrocytes 03/02/2018 4.76 ??? MCV 03/02/2018 87.8 ??? RBC Distrib Width 03/02/2018 14.7* ??? Platelet Count 03/02/2018 262 ??? Leukocytes 03/02/2018 7.7 ??? Potassium, S 03/02/2018 4.6 ??? Sodium, S 03/02/2018 141 ??? Chloride, S 03/02/2018 102 ??? Bicarbonate, S 03/02/2018 30* ??? Anion Gap 03/02/2018 9 ??? Bld Urea Nitrog(BUN), S 03/02/2018 15 ??? Creatinine, S 03/02/2018 0.96 ??? eGFR-Non Black 03/02/2018 80 ? ? eGFR-Black 03/02/2018 >90 ??? Calcium, Total 03/02/2018 9.5 ??? Glucose, S 03/02/2018 79 ??? Ventricular Rate ECG/Min 03/02/2018 58 ??? IN Interval 03/02/2018 190 ??? QRSD Interval 03/02/2018 122 ??? QT Interval 03/02/2018 452 ??? QTC Interval 03/02/2018 443 ??? P [place] 03/02/2018 55 ??? R [place] 03/02/2018 30 ??? T Wave [place] 03/02/2018 37 ??? Test Name 03/02/2018 Troponin I ??? Result 03/02/2018 See Scanned Report Lab Results Component Value Date CHOL 92 07/22/2017 TRIG 75 07/22/2017 HDL 31 (L) 07/22/2017 HDL 78 04/26/2015 IMPRESSION/REPORT/PLAN See above. documented in this encounter Plan of Treatment Upcoming Encounters Date Type Specialty Care Team Description 04/12/2022 Office Visit Cardiovascular Disease Simone Gooden AP RN, C.N.P. [address] [phone] (Wo rk) Scheduled Referrals Name Type Priority Associated Order Schedule Diagnoses Cardiovascular Disease Outpatient Referral Routine Expected: office visit (clinic) 2018 (Approximate), Expires: 08/07/2021 documented as of this encounter Visit Diagnoses Diagnosis Abuse Tobacco Smoking - Primary Coronary Artery Disease (Unspecified) documented in this encounter Additional Health Concerns Assessment Noted Time PHQ-9 Depression Total Score: 18 06/23/2018 8:30 AM CS T documented as of this encounter Care Teams Soaking Pits Supervisor Relationship Specialty Start Date End Date Leta Sanchez M.D. PCP - General 10/17/16 10/18/19 documented as of this encounter
--- OUTSIDE RECORDS SUMMARY | 2022-03-29 07:48 | XMS_ITS | Encounter Summary ---
:1950 Author Organization [facility] Address [address] [place] [address] Care Team Providers Name Role Phone Leta Sanchez M.D. Primary Care Provider Reason for Visit Reason Comments Follow-up one week post op, bladder bi opsies Appointment Request (Routine) - Closed Specialty Diagnoses / Procedures Referred By Contact Refer red To Contact Urology Diagnoses par [facility] Procedures post op Referral ID Status Reason Start Date Expiration Date Visits Requ ested Visits Authorized [id number] Closed 05/01/2018 05/01/2019 1 1 Encounter Details Date Type Department Care Team Description 05/25/2018 Office Visit Department of Urology Jatinder Camejo Mal ignant Neoplasm Of in Mame Tirado M.D. Bladder (HCC) (Primary [address] Dx) [place] [phone] Social History Tobacco Use Types Packs/Day Years [...] How often do you attend catholic or taoist services? 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 - 05/25/2018 9:15 AM CST CHIEF COMPLAINT/REASON FOR VISIT Bladder cancer ?? HISTORY OF PRESENT ILLNESS This is a 68-year-old male who has [...] review the pathology. Mitomycin-C was given. This was his 1st course of mitomycin. ?? MEDICATIONS Current Outpatient Prescriptions Medication Sig Dispense Refill ??? albuterol sulfate 90 mcg/actuation aerosol powdr breath activated Inhale 2 puffs 4 (four) times a day as needed (for shortness of breath and wheezing- Use with spacer chamber.). 1 each ??? aspirin 81 mg chewable tablet Chew 81 mg daily. ??? atorvastatin (for_LIPITOR) 80 mg tablet Take 1 tablet (80 mg total) by mouth at bedtime. From [facility] on 03/25. 90 tablet 3 ??? cefUROXime (CEFTIN) 250 mg tablet Take 250 mg by mouth. ??? isosorbide dinitrate (ISORDIL) 10 mg tablet Take 1 tablet (10 mg total) by mouth 2 (two) times aday. Take 1 tablet in the morning and another 6 hr apart at noon. 180 tablet 3 ??? lisinopril (for_PRINIVIL,ZESTRIL) 20 mg tablet Take 1 tablet (20 mg total) by mouth every morning. 90 tablet 3 ??? metoprolol succinate (for_TOPROL-XL) 25 mg 24 hr tablet Take 1 tablet (25 mg total) by mouth at bedtime. Do not crush or chew. 90 tablet 3 ??? nitroglycerin (for_NITROSTAT) 0.[address] 0.4 mg under the tongue every 5 (five) minutes as needed for chest pain. Place 1 tab under the tongue at first sign of chest pain. If no relief in 5 min, call 911. Repeat dose every 5 min up to 2 additional doses if chest pain continues. ??? clopidogrel (for_PLAVIX) 75 mg tablet Take 1 tablet (75 mg total) by mouth daily. For 1 year until 03/24/2018. 90 tablet 3 ??? HYDROcodone-acetaminophen (NORCO) 5-325 mg per tablet No current facility-administered medications for this visit. ?? ALLERGIES Allergies Allergen Reactions ??? Bupropion Hcl Other (see comments) Eliceo listed no reactions. Suicidal thoughts. ??? Citalopram Diarrhea ??? Influenza Virus Vaccine Bivalent Other (see comments) Sickness, Eliceo listed no reactions. ??? Pravastatin Myalgia and Other (see comments) ? VITAL SIGNS BP 150/62 (BP Location: Right arm, Patient Position: Sitting, Cuff Size: Large) Pulse 64 Temp 37??C The patient's bladder was filled, via his catheter, with approximately 100 mL of fluid. This irrigated light pink. He was then given the opportunity to void any voided essentially all of the fluid witha residual of approximately 30 mL. ) URINARY BLADDER, RIGHT LATERAL WALL, BIOPSY: 1. Polypoid chronic cystitis, nonspecific 2. Sampling includes: Urothelium, lamina propria, muscularis propria 3. No evidence of atypia or malignancy B) URINARY BLADDER, ANTERIOR WALL, RANDOM, BIOPSY: 1. Mild chronic cystitis, nonspecific, with largely denuded urothelial layer 2. Sampling includes: Urothelium, lamina propria, muscularis propria 3. Negative for atypia or malignancy C) URINARY BLADDER, POSTERIOR WALL, RANDOM, BIOPSY: 1. No diagnostic alterations 2. Sampling includes: Urothelium, lamina propria, muscularis propria 3. Negative for atypia or malignancy D) URINARY BLADDER, LEFT LATERAL WALL CONCERNING AREA, TRANSURETHRAL RESECTION: 1. Non-invasive papillary urothelial carcinoma, low grade ? (WHO 2016 terminology) 2. Muscularis propria: Present 3. Negative for associated flat carcinoma in situ ? IMPRESSION/REPORT/PLAN Urothelial carcinoma of the urinary bladder, left lateral wall, recurrent, low- grade, noninvasive. Would appear that this is resistant to BCG therapy. ?? PLAN: Given that he received a course of mitomycin, and this is low-grade, I have asked the patient to return to clinic in 3 months for bladder cancer surveillance to include cystoscopy. If he has a relatively frequent recurrence, I would be inclined to recommend either more mitomycin-C or gemcitabine intrav esical therapy. Electronically signed by: Jatinder Camejo M.D. 05/25/18 9:24 AM Answers for HPI/ROS submitted by the patient on 05/25/2018 No general issues: Yes No eye issues: Yes No ENT issues: Yes No heart issues: Yes No respiratory issues: Yes No GI issues: Yes No muscle/bone issues: Yes No skin issues: Yes No neurologic issues: Yes No mental health issues: Yes No blood/lymph issues: Yes No urinary/reproductive issues: Yes GER PLAN documented in this encounter Plan of Treatment Upcoming Encounters Date Type Specialty Care Team Description 04/12/2022 Office Visit Cardiovascular Disease Simone Gooden AP RN, C.N.P. [address] [phone] (Wo rk) documented as of this encounter Visit Diagnoses Diagnosis Malignant Neoplasm Of Bladder (HCC) - Pr imary documented in this encounter Care Teams Steel Wheel Engraver Relationship Specialty Start Date End Date Leta Sanchez M.D. PCP - General 10/17/16 10/18/19 documented as of this encounter
--- OUTSIDE RECORDS SUMMARY | 2022-03-29 07:48 | XMS_ITS | Encounter Summary ---
:[address] [facility] Address [address] [place] [address] Care Team Providers Name Role Phone Leta Sanchez M.D. Primary Care Provider Encounter Details Date Type Department Care Team Description 07/22/2018 Hospital Encounter Department of Leta Sanchez M.D. 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 clopidogrel (PLAVIX) 75 Take 1 tablet (75 mg 90 tablet 3 10/05/2018 mg tablet total) by mouth daily. HYDROcodone-acetaminophe 0 05/20/2018 10/19/2018 n (NORCO) 5-325 [...] 1 tablet (25 mg 90 tablet 3 07/2809/07/2018 (for_TOPROL-XL) 25 mg 24 total) by mouth at hr tablet bedtime. Do not crush or chew. nitroglycerin Place 0.4 mg under 0 (for_NITROSTAT) [...] (DESYREL) 50 Take 1 tablet (50 mg 30 tablet 11 10/05/2018 mg tabletIndications: total) by mouth at Depression Anxiety, bedtime. Insomnia documented as of this encounter Plan of Treatment Upcoming Encounters Date Type Specialty Care Team Description 04/12/2022 Office Visit Cardiovascular Disease Simone Gooden AP RN, C.N.P. [address] [facility] [place] [place] [phone] (Wo rk) documented as of this encounter Procedures Procedure Name Priority Date/Time Associated Diagnosis Comme nts HEPATIC FUNCTION Routine 07/22/2018 2:27 Coronary Artery Resul ts for this PANEL, S PM CDT Disease procedure are i n (Unspecified) the results Hyperlipidemia section. High Risk Medication SEDIMENTATION RATE, B Routine 07/22/2018 2:27 Polymyalgia Res ults for this PM CDT Rheumatica (HCC) procedure a re in the results section. CBC WITHOUT Routine 07/22/2018 2:27 Anemia Results for this DIFFERENTIAL, B PM CDT Hypertensive Heart proced ure are in And Chronic Kidney the resul ts Disease Without section. Heart Failure And With Stage 2 (Mild) Chronic Kidney Disease Coronary Artery Disease (Unspecified) CREATINE KINASE (CK), Routine 07/22/2018 2:27 Coronary Artery Results for this S PM CDT Disease procedure are i n (Unspecified) the results Hyperlipidemia section. High Risk Medication BASIC METABOLIC PANEL, Routine 07/22/2018 2:27 Hypertensive He art Results for this S/P PM CDT And Chronic Kidney procedure are in Disease Without the results Heart Failure And section. With Stage 2 (Mild) Chronic Kidney Disease Coronary Artery Disease (Unspecified) Hyperlipidemia documented in this encounter Results (ABNORMAL) Sedimentation Rate (07/22/2018 2:27 PM CDT) Patholo gist Method Time Signature Sedimentation 24 (H) 0 - 22 07/22/2018 [facility] Rate, B mm/1 h 3:09 PM CDT [facility] Specimen Anatomical Collection Method Collection Time Receive d Time (Source) Location / / Volume Laterality Blood (Blood, 07/22/2018 2:27 PM 07/23/19 19 2:27 Venous) CDT PM CDT Leta Sanchez M.D. LAB BLOOD ADD-ON Performing Organization Address City/State/ZIP Code Phon e Number [facility] [address] [place] [address] LAB CK (Creatine Kinase) (07/22/2018 2:27 PM CDT) athologist Signature Creatine Kinase 122 39 - 308 07/22/2018 [facility] (CK), S U/L 9:29 PM CDT [facility] [place] LAB Specimen Anatomical Collection Method Collection Time Receive d Time (Source) Location / / Volume Laterality Blood (Blood, 07/22/2018 2:27 PM 07/23/19 19 9:09 Venous) CDT PM CDT Leta Sanchez M.D. LAB BLOOD ADD-ON Performing Organization Address City/State/ZIP Code Phon e Number [facility]- [address] [place] [address] [place] LAB Hepatic Function Panel (07/22/2018 2:27 PM CDT) [facility] gist Method Time Signature Bilirubin, Total, S 0.4 <=1.2 07/22/2018 [facility] mg/dL 7:01 PM CDT [facility] [place] [facility] Bilirubin, Direct, S <0.2 0.0 - 0.3 07/22/2018 [facility] mg/dL 7:29 PM CDT [facility] [place] [facility] Aspartate 20 8 - 48 07/22/2018 [facility] Aminotransferase U/L 7:01 PM CDT [facility] [place] [facility] Alanine 15 7 - 55 07/22/2018 [facility] Aminotransferase U/L 7:[address] [facility] [place] [facility] Alkaline 115 40 - 129 07/22/2018 [facility] Phosphatase, S U/L 7:01 PM T [facility] [place] [facility] Albumin, S 4.5 3.5 - 5.0 07/22/2018 [facility] g/dL 7:01 PM CDT [facility] [place] [facility] Protein, Total, S 7.0 6.3 - 7.9 07/22/2018 [facility] g/dL 7:01 PM T [facility] Specimen Anatomical Collection Method Collection Time Receive d Time (Source) Location / / Volume Laterality Blood (Blood, 07/22/2018 2:27 PM 07/23/19 19 6:48 Venous) CDT PM CDT Leta Sanchez M.D. LAB BLOOD ADD-ON Performing Organization Address City/State/ZIP Code Phon e Number [facility] [place] [address] [place] [address] LAB (ABNORMAL) Basic Metabolic Panel (07/22/2018 2:27 PM CDT) P athologist Signature Potassium, S 4.6 3.6 - 5.2 07/22/2018 [facility] mmol/L 7:01 PM [facility] Sodium, S 137 135 - 145 07/22/2018 [facility] mmol/L 7:01 PM [facility] Chloride, S 101 98 - 107 07/22/2018 [facility] mmol/L 7:01 PM [facility] Bicarbonate, S 26 22 - 29 07/22/2018 [facility] mmol/L 7:01 PM [facility] Anion Gap 10 7 - 15 07/22/2018 [facility] 7:01 PM [facility] BUN (Blood Urea 27 (H) 8 - 24 07/22/2018 [facility] Nitrogen), S mg/dL 7:01 PM [facility] Creatinine 1.18 0.74 - 07/22/2018 [facility] 1.35 mg/dL 7:01 PM [facility] eGFR-Non 63 >=60 07/22/2018 [facility] Black/ mL/min/BSA 7:01 PM [facility] [place] [facility] Comment: ----ADDITIONAL INFORMATION---- Estimated GFR calculated using the 2009 CKD_EPI creatinine equation. eGFR-Black/ 72 >=60 mL/min/BSA 2018 7:01 PM [facility] [place] [facility] Comment: ----ADDITIONAL INFORMATION---- Estimated GFR calculated using the 2009 CKD_EPI creatinine equation. Calcium, Total, S 9.9 8.8 - 10.2 mg/dL 07/22/2018 7 :01 PM T [facility] Glucose, S 99 70 - 140 mg/dL 07/22/2018 7:[address] [facility] [place] Specimen Anatomical Collection Method Collection Time Receive d Time (Source) Location / / Volume Laterality Blood (Blood, 07/22/2018 2:27 PM 07/23/19 19 6:48 Venous) CDT PM CDT Leta Sanchez M.D. LAB BLOOD ADD-ON Performing Organization Address City/State/ZIP Code Phon e Number [facility] [address] [place] [address] LAB (ABNORMAL) CBC without Differential (07/22/2018 2:27 PM CDT) [facility] gist Method Time Signature Hemoglobin 14.9 13.2 - 07/22/2018 [facility] 16.6 g/dL 2:35 PM CDT [facility] Hematocrit 44.4 38.3 - 07/22/2018 [facility] 48.6 % 2:36 PM CDT [facility] LAB Erythrocytes 5.12 4.35 - 07/22/2018 [facility] 5.65 2:36 PM CDT HEALTH x10(12)/L [facility] MCV 86.7 78.2 - 07/22/2018 [facility] 97.9 fL 2:36 PM CDT [facility] LAB RBC Distrib Width 14.8 (H) 11.8 - 07/22/2018 [facility] 14.5 % 2:36 PM CDT [facility] LAB Platelet Count 266 135 - 317 07/22/2018 [facility] x10(9)/L 2:36 PM CDT [facility] LAB Leukocytes 8.6 3.4 - 9.6 07/22/2018 [facility] x10(9)/L 2:36 PM CDT [facility] LAB Specimen Anatomical Collection Method Collection Time Receive d Time (Source) Location / / Volume Laterality Blood (Blood, 07/22/2018 2:27 PM 07/23/19 19 2:27 Venous) CDT PM CDT Leta Sanchez M.D. LAB BLOOD ADD-ON Performing Organization Address City/State/ZIP Code Phon e Number [facility] [address] [place] [address] LAB documented in this encounter Visit Diagnoses Diagnosis Anemia Hypertensive Heart And Chronic Kidney Di sease Without Heart Failure And With Stage 2 (Mild) Chronic Kidney Disease Coronary Artery Disease (Unspecified) Hyperlipidemia High Risk Medication Polymyalgia Rheumatica (HCC) documented in this encounter Additional Health Concerns Assessment Noted Time PHQ-9 Depression Total Score: 18 06/23/2018 8:30 AM CS T documented as of this encounter Care Teams Lumber Sales Supervisor Relationship Specialty Start Date End Date Leta Sanchez M.D. PCP - General 10/17/16 10/18/19 documented as of this encounter
--- OUTSIDE RECORDS SUMMARY | 2022-03-29 07:48 | XMS_ITS | Encounter Summary ---
:1950 Author Organization [facility] Address [address] [place] [address] Care Team Providers Name Role Phone Leta Sanchez M.D. Primary Care Provider Reason for Referral Outpatient (Routine) - Closed Specialty Diagnoses / Procedures Referred By Contact Refer red To Contact Community Internal Diagnoses CIM EST Leta Sanchez M.D. [facility] Medicine [address], [place] [address] [place] [address] Referral ID Status Reason Start Date Expiration Date Visits Requ ested Visits Authorized [id number] Closed 08/07/2018 08/07/2019 1 1 Scheduling Instructions To remove skin tag on mid back Reason for Visit Reason Comments Follow-up 6 month follow up.Labs done 07/22/18 Encounter Details Date Type Department Care Team Description 08/07/2018 Office Visit Department of Leta Sanchez M.D . Hypertensive Heart And Chronic Kidney Di sease Without Heart Failure And With Stage 2 (Mild) Chronic Kidney Disease (Primary Dx); Community Internal [address], Cor onary Artery Disease [place] Vessel; Medicine in [place] [address] Coronary Stent Status Post; [facility] [place] Abuse Tobacco Smoking; [address] [address] Insomnia; JAYNA THIBODEAUX Cancer B ladder Personal History; [address] Elevated Sedimentation Rate; [phone] Tag Skin Social History Tobacco Use Types Packs/Day Years [...] week 04/16/2019 How often do you attend sabianism or synagogue services? 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 - 08/07/2018 3:30 PM CDT SUBJECTIVE CHIEF COMPLAINT/ REASON FOR VISIT 1. Follow-up medical problems 2. Discuss test results HISTORY OF PRESENT ILLNESS Seven Salazar is a 68 y.o. male who presents to the clinic today for above complaints. I saw himon 01/15/2018 for Medicare annual wellness visit and review medical problems. He had transurethral resection of bladder tumor and biopsy with mitomycin-c placement on 05/20/2018 at the [facility] for recurrence bladder wall cancer. He saw Urology on 05/25/2018. He was advised to come back in 3 months for bladder cancer surveillance and repeat cystoscopy. It should be noted that he continued tosmoke cigarette. He saw Maritza Banda on 06/23/2018. He does not notice improvement from citalopram therapy, which he takes for depression. He is given trazodone and he feels better. He would like to continue trazodone. He had blood tests on 07/22/2018. He saw , cardiology today. I reviewed fiberglass boat builder recommendations. He was advised to come back in 6 months for cardiology follow-up. He isdoing fine today. He denies chest pain or decreased exercise tolerance. His blood pressure is slightly high. He takes medication regularly. He has a skin tag on mid back, which is irritating. He would like to have it removed. We discussed lab results from 07/22/2018. CBC was normal. Sedimentation rate was 24. Basic metabolicpanel and hepatic function panel were normal. CK was normal. I reviewed and updated medical record. Medication reconciliation was done. I answered all of their questions. Patient does not have additional questions, concerns, or complaints. MEDICATIONS Current Outpatient Prescriptions Medication Sig Dispense [...] mouth at bedtime. 90 tablet 3 ??? clopidogrel (PLAVIX) 75 mg tablet Take 1 tablet (75 mg total) by mouth daily. 90 tablet 3 ??? HYDROcodone-acetaminophen (NORCO) 5-325 [...] (50 mg total) by mouth at bedtime. 30 tablet 11 No current facility-administered medications for this visit. [...] Disease (Unspecified) 06/12/2017 ??? Coronary Artery Disease [place] Vessel 06/12/2017 ??? Corticosteroid Treatment Real Estate Teacher Systemic 03/14/2017 ??? Cyst Renal 02/05/2016 ??? [...] 1 of 3 SOCIAL HISTORY Social History Social History ??? Marital status: Spouse name: N/A ??? Number of children: N/A ??? Years of education: N/A Social History Main Topics ??? Smoking status: Current Some Day Smoker Packs/day: 0.20 Types: Cigarettes ??? Smokeless tobacco: Never Used Comment: 4 cigarettes per day ??? Alcohol use No ??? Drug use: Unknown ??? Sexual activity: Defer Other Topics Concern ??? None Social History Narrative Caffeine: 2 cups coffee daily History Drug Use Unknown History Alcohol Use No FAMILY HISTORY Family History Problem Relation Age of Onset ??? Hypertension Mother ??? Cataracts Mother ??? Glaucoma Mother ??? Hypertension Brother ??? Asthma Brother ??? Coronary artery disease Brother ??? Heart attack Brother ??? Hearing loss Father ??? Parkinsons disease Father ??? Pancreatic cancer Father ??? Liver cancer Father ??? Lung cancer Sister OBJECTIVE VITAL SIGNS Vitals: 08/07/18 1504 08/07/18 1509 08/07/18 1525 BP: (!) 172/67 (!) 168/59 136/60 Patient Position: Sitting Sitting Sitting Pulse: (!) 49 (!) 46 Resp: 20 PHYSICAL EXAMINATION General: Patient is sitting. No distress. Able to talk without interruption. Skin: No rash, bruise or nodules. He has skin tag on mid back. Head: No facial rash, asymmetry or sinus tenderness. Eyes: PERRLA. EOMI. No pallor, icterus or conjunctivitis. ENT: No nasal congestion, discharge or bleeding. There is no ear infection or discharge. No mastoid tenderness. Tongue is moist and midline. No oral lesions. Lymph nodes: No cervical or supraclavicular lymphadenopathy. Heart: No carotid bruit. No JVD. Regular rhythm. There is no S3, gallop, murmur or thrill. Lungs: Normal respiratory effort. Clear to auscultation. Abdomen: Moves with respiration. Bowel sounds present. Soft. No rebound tenderness, guarding or rigidity. Extremities: No clubbing, cyanosis, edema, infection or calf tenderness. Mental: Alert and oriented x 3. Normal mood and affect. Neuro: Grossly nonfocal exam. DIAGNOSTICS LABORATORY: 07/22/2018 14:27 Hemoglobin 14.9 HEMATOCRIT 44.4 Erythrocytes 5.12 MCV 86.7 RBC Distrib Width 14.8 (H) Platelet Count 266 White Blood Cell Count 8.6 Sedimentation Rate, B 24 (H) Sodium, S 137 Potassium, S 4.6 Chloride, S 101 Bicarbonate, S 26 Anion Gap 10 Bld Urea Nitrog(BUN), S 27 (H) Creatinine, S 1.18 eGFR-Non Black 63 eGFR-Black 72 Calcium, Total 9.9 Glucose, S 99 Bilirubin, Total, S 0.4 Bilirubin, Direct, S <0.2 Alanine Aminotransferase (ALT), S 15 Aspartate Aminotransferase (AST), S 20 Alkaline Phosphatase, S 115 Protein, Total, S 7.0 Albumin, S 4.5 Creatine Kinase (CK), S 122 ASSESSMENT / PLAN #1 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 Repeated blood pressure is fairly controlled. Advised him to continue current medications, sodium restriction diet and cardiovascular risk factor modification. Blood pressure goal should be less than 130/80 mm Hg. He will follow with fiberglass boat builder. #2 Coronary Artery Disease [place] Vessel #3 Coronary Stent Status Post He is stable from cardiac standpoint. There is no angina. Needs to continue current medication and cardiovascular risk factor modification. Advised him to follow with fiberglass boat builder. #4 Abuse Tobacco Smoking We discussed smoking cessation. He is not ready to quit yet. He is trying to cut back amount of Sacred he is smoking. #5 Insomnia It is better since he has been taking trazodone. He will continue 50 mg by mouth daily at bedtime. If it is needed he can increase to 100 mg by mouth daily at bedtime. #6 Cancer Bladder Personal History He had transurethral resection of bladder tumor and biopsies with mitomycin-c placement on 05/20/2018 at the [facility]. He is aware that he needs to quit smoking. He will follow with Dr. Camejo, urology. #7 Elevated Sedimentation Rate Sed rate is just above normal. Will monitor. #8 Tag Skin Mid Back He would like to come back to removed skin tag because of irritation. #9 Discussed Test Results I reviewed test results from 07/22/2018. All questions were answered. #10 Follow-up Visit Return to the clinic to remove skin tag. He needs to come back in six months for follow-up. documented in this encounter Plan of Treatment Upcoming Encounters Date Type Specialty Care Team Description 04/12/2022 Office Visit Cardiovascular Disease Simone Gooden AP RN, C.N.P. [address] [address] [phone] (Wo rk) Scheduled Referrals Name Type Priority Associated Diagnoses Order S [facility] Internal Outpatient Referral Routine Ex pected: Medicine office 08/07/2018 visit (clinic) (Approximate) , Expires: 08/07/2021 documented as of this encounter Visit Diagnoses Diagnosis Hypertensive Heart And Chronic Kidney Di sease Without Heart Failure And With Stage 2 (Mild) Chronic Kidney Disease - Primary Coronary Artery Disease [place] Vessel Coronary Stent Status Post Abuse Tobacco Smoking Insomnia Personal History Of Malignant Neoplasm O f Bladder Elevated Sedimentation Rate Tag Skin documented in this encounter Additional Health Concerns Assessment Noted Time PHQ-9 Depression Total Score: 18 06/23/2018 8:30 AM CS T documented as of this encounter Care Teams Ceramist Relationship Specialty Start Date End Date Leta Sanchez M.D. PCP - General 10/17/16 10/18/19 documented as of this encounter
--- OUTSIDE RECORDS SUMMARY | 2022-03-29 07:48 | XMS_ITS | Encounter Summary ---
:1950 Author Organization [facility] Address [address] [place] [address] Care Team Providers Name Role Phone Leta Sanchez M.D. Primary Care Provider Reason for Visit Reason Onset Date Comments return call 05/08/2018 Encounter Details Date Type Department Care Team Description 05/08/2018 Clinical Communication Department of [facility] Leta Sanchez M.D. return call [address], in [address], [place] [address] [address] [place] [address] Social History Tobacco Use Types [...] week 04/16/2019 How often do you attend muslim or jew services? 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 - 05/08/2018 11:01 AM CST See other message ROAD POLICE OFFICER Telephone Encounter - Mary Melnedez - 05/08/2018 10:35 AM CST Reason for Communication: Patient returned your call please call again Current Can Nursing/Provider leave a detailed message: No Did the patient refuse triage through Nurse line? (for symptom based concerns)NA Action Needed: please call Name of Medication (if relevant): see note ROAD POLICE OFFICER documented in this encounter Plan of Treatment Upcoming Encounters Date Type Specialty Care Team Description 04/12/2022 Office Visit Cardiovascular Disease Simone Gooden AP RN, C.N.P. [address] [phone] (Wo rk) documented as of this encounter Visit Diagnoses Not on filedocumented in this encounter Care Teams Cargo Vessel Stewardess Relationship Specialty Start Date End Date Leta Sanchez M.D. PCP - General 10/17/16 10/18/19 documented as of this encounter
--- OUTSIDE RECORDS SUMMARY | 2022-03-29 07:48 | XMS_ITS | Encounter Summary ---
:1950 Author Organization [facility] Address [address] [place] [address] Care Team Providers Name Role Phone Leta Sanchez M.D. Primary Care Provider Reason for Visit Reason Comments Pre-op Exam transuretheral resection of bladder tumor/biopsies/mitomycin-c placement with Dr. Camejo on 019 at the [facility] Appointment Request (Routine) - Closed Specialty Diagnoses / Procedures Referred By Contact Refer red To Contact Family Medicine Diagnoses FAM EST [facility] Region Procedures [facility] EST Referral ID Status Reason Start Date Expiration Date Visits Requ ested Visits Authorized [id number] Closed 04/30/2018 04/30/2019 1 1 Encounter Details Date Type Department Care Team Description 05/07/2018 Office Visit Department of Leta Sanchez M.D . Preoperative Exam (Primary Dx); Community Internal [address], [place] ign[place] Neoplasm Of Bladder Lateral Wall (HCC); Medicine in [facility] [place] 204 Bronchitis Chronic (HCC); [place], [place], [place] Coronary Artery Disease; [address] [address] Coronary Stent Status Post; JAYNA THIBODEAUX Hyperten sive Heart And Chronic Kidney Disease Without Heart Failure And With Stage 2 (Mild) Chronic Kidney Disease; [address] Abuse Tobacco Smoking [phone] Social History Tobacco Use Types Packs/Day Years [...] How often do you attend gnosticist or mandaeism services? Never 04/16/2019 Do you [...] at Date Recorded Male 06/28/2019 8:47 AM SECONDARY SET UP MAN documented as of this encounter Last Filed Vital Signs Vital Sign Reading Time Taken Comments Blood Pressure 108/55 05/07/2018 7:48 AM SECONDARY SET UP MAN Pulse 63 05/07/2018 7:48 AM SECONDARY SET UP MAN Temperature 36.4 ??C (97.6 ??F) 05/07/2018 7:48 AM SECONDARY SET UP MAN Respiratory Rate 16 05/07/2018 7:48 AM SECONDARY SET UP MAN Oxygen Saturation 98% 05/07/2018 7:48 AM SECONDARY SET UP MAN Inhaled Oxygen Concentration - - Weight 95.1 kg (209 lb 10.5 oz) 05/07/2018 7:48 AM SECONDARY SET UP MAN Height 170 cm (5' 6.93) 05/07/2018 7:48 AM SECONDARY SET UP MAN Body Mass Index 32.91 05/07/2018 7:48 AM SECONDARY SET UP MAN documented in this encounter Patient Instructions Patient InstructionsLeta Sanchez M.D. - 05/07/2018 8:00 AM CST We will check with Dr. Ruiz, cardiology regarding aspirin and Plavix therapy prior to surgery. We will contact you with form grader operator's recommendations. Please continue current medications for now. Return to clinic as previously scheduled on 07/17/2018. NDARY SET UP MAN documented in this encounter Consult Notes Leta Sanchez M.D. - 05/07/2018 8:00 AM CST SUBJECTIVE CHIEF COMPLAINT/REASON FOR VISIT Proposed surgery date: 05/20/2018 Surgeon: Dr. Camejo Proposed surgery: Transurethral resection of bladder tumor biopsies and mitomycin-c placement Location: [facility] HISTORY OF PRESENT ILLNESS Seven Salazar is a 68 y.o. male who presents to the clinic today for a preanesthetic medical evaluation. I am asked by Dr. Camejo to assess whether Seven Salazar is an adequate candidate for anesthesia for transurethral resection of bladder tumor biopsies and mitomycin-c placement on 05/20/2018. They discussed with Dr. Camejo regarding risks, benefits, alternative therapy. Patient is willing to proceed because the benefits outweigh the risks. He has history of bladder cancer. He has been followed with Urology regularly. He had cystoscopy on 04/30/2018. He was noted to have tumors on the right lateral wall which were concern for recurrence of bladder cancer. He continues to smoke tobacco. He does not have hematuria, dysuria or problem with urination at this time. He saw Cardiology on 03/16/2018 for follow-up. He had non ST elevation myocardial infarction on 03/21/2017. He underwent successful PCI with RENETTA to the RCA and the LCx on 03/22/2017. He was admitted [facility] on 07/22/2017. He underwent cardiac catheterization on 07/24/2017, which showed diffuse coronary arthrosclerosis without focal stenosis. At the time of discharge, he was advised to continue aspirin Plavix dual antiplatelet therapy for 1 year. He needs to take Plavix until 07/24/2018. He is doing fine. There is no exertional chest pain or shortness of breath on exertion. He is physically active. He has been tolerating isosorbide dinitrate. He denies orthopnea, paroxysmal nocturnal, palpitation, or peripheral edema. He denies dizziness or lightheadedness. He has chronic bronchitis. There is no recent exacerbation. He does not need to use bronchodilator regularly We discussed smoking cessation. He denies nausea, vomiting, abdominal pain, change in bowel movement, cough, chest congestion or wheezing. There have been no complications during or after previous surgeries. Patient denies any personal or family history intolerance to general anesthesia. He denies any reaction to blood transfusions. Thereis no personal history of hepatitis, jaundice, bleeding disorder, or drug resistant infection like MRSA or VRE. There was no family or personal history of blood clots in legs or lungs. There are no additional questions, concerns or complaints. CURRENT MEDICATIONS Current Outpatient Prescriptions Medication Sig Dispense [...] mg total) by mouth at bedtime. From [place]'s discharge on 03/25. 90 tablet 3 ??? clopidogrel (for_PLAVIX) 75 mg tablet Take 1 tablet (75 mg total) by mouth daily. For 1 year until 03/24/2018. 90 tablet 3 ??? isosorbide dinitrate (ISORDIL) [...] 2 additional doses if chest pain continues. No current facility-administered medications for this visit. ALLERGIES/CONTRAINDICATIONS Allergies Allergen Reactions ??? Bupropion Hcl Other (see comments) Cerner listed no reactions. Suicidal thoughts. ??? Citalopram Diarrhea ??? Influenza Virus Vaccine Bivalent Other (see comments) Sickness, Cerner listed no reactions. ??? Pravastatin Myalgia and Other (see comments) REVIEW OF SYSTEMS Please see history of present illness for pertinent positives, otherwise rest of review of systems negative. MEDICAL HISTORY Past Medical History: Diagnosis Date ??? Abuse Tobacco Smoking 07/03/2015 ??? Anemia 03/31/2017 ??? Arthralgia 07/03/2015 ??? Arthritis Shoulder 07/03/2015 ??? Bronchitis Chronic (HCC) 07/03/2015 ??? Coronary Artery Disease 06/12/2017 ??? Corticosteroid Treatment Group Home Systemic 03/14/2017 ??? Cyst Renal 02/05/2016 ??? [...] Reflux Esophageal 12/24/2011 ??? Seizure Partial Complex ([facility]) 03/23/2004 ??? 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 Stroke ([facility]) 03/23/2004 SURGICAL HISTORY Past Surgical [...] History Narrative Caffeine: 2 cups coffee daily FAMILY HISTORY Family History Problem Relation Age of Onset ??? Hypertension Mother ??? Cataracts Mother ??? Glaucoma Mother ??? Hypertension Brother ??? Asthma Brother ??? Coronary artery disease Brother ??? Heart attack Brother ??? Hearing loss Father ??? Parkinsons disease Father ??? Pancreatic cancer Father ??? Liver cancer Father ??? Lung cancer Sister OBJECTIVE VITAL SIGNS Vitals: 05/07/18 0748 BP: 108/55 Patient Position: Sitting Pulse: 63 Temp: 36.4 ??C Resp: 16 Height: 170 cm Weight: 95.1 kg SpO2: 98% TempSrc: Temporal PHYSICAL EXAMINATION General: Patient is sitting. No [...] rebound tenderness, guarding or rigidity. No organomegaly. Spine: No scoliosis or kyphosis. No spinous tenderness or mass. Joints: No joint swelling or deformity. No decreased range of motion. Extremities: No clubbing, cyanosis, edema, infection or calf tenderness. Gait: No abnormal gait. Mental: Alert and oriented x 3. Normal mood and affect. Neuro: Grossly nonfocal. ASSESSMENT / PLAN #1 Preoperative Exam #2 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HCC) He is scheduled to have transurethral resection of bladder tumor and biopsies with mitomycin-c placement on 05/20/2018 at the [facility] for recurrence bladder wall cancer. He is stable from a cardiac and respiratory standpoint. There is no absolute contraindication for planned procedure. He discussed with Dr. Camejo regarding risks, benefits, alternative therapy. He is willing to proceed because the benefits outweigh the risks. Because of dual antiplatelet therapy for coronary artery stentplacement on 03/22/2017, I checked with Dr. Ruiz, form grader operator regarding stopping these medications prior to the procedure. It was suggested to continue Aspirin and hold Plavix 5 days prior to the procedure and restart Plavix as soon as safe from an urological standpoint after the procedure. #3 Bronchitis Chronic (HCC) He is stable from respiratory standpoint. 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 He is stable from cardiac standpoint. He has no angina. There is no evidence of CHF. He will continue sodium controlled diet and current medications. Blood pressure goal is less than 130/80 mmHg. We need to continue cardiovascular risk factors modification. He will be notified Dr. Ruiz's recommendation about Aspirin and Plavix therapy. #7 Abuse Tobacco Smoking He needs to quit smoking. We discussed smoking cessation. #8 Followup Visit Return to the clinic in July 2018 as previously scheduled. Administrative Billing 25 minutes of this 33 minute visit was spent in face to face counseling and coordination of care. Please send a copy to Dr. Camejo and [facility]. Thank you for allowing me to participate in the care of this patient. NDARY SET UP MAN documented in this encounter Plan of Treatment Upcoming Encounters Date Type Specialty Care Team Description 04/12/2022 Office Visit Cardiovascular Disease Simone Gooden AP RN, C.N.P. [address] [phone] (Wo rk) documented as of this encounter Visit Diagnoses Diagnosis Preoperative Exam - Primary Malignant Neoplasm Of Bladder Lateral Wa ll (HCC) Bronchitis Chronic (HCC) Coronary Artery Disease (Unspecified) Coronary Stent Status Post Hypertensive Heart And Chronic Kidney Di sease Without Heart Failure And With Stage 2 (Mild) Chronic Kidney Disease Abuse Tobacco Smoking documented in this encounter Care Teams Manager Six Sigma Relationship Specialty Start Date End Date Leta Sanchez M.D. PCP - General 10/17/16 10/18/19 documented as of this encounter
--- OUTSIDE RECORDS SUMMARY | 2022-03-29 07:48 | XMS_ITS | Encounter Summary ---
:1950 Author Organization [facility] Address [address] [place] [address] Care Team Providers Name Role Phone Leta Sanchez M.D. Primary Care Provider Reason for Visit Reason Comments Follow-up Biopsy, tissue 05/20/18. Had retention issues and stomach issue(Friday, and Friday) is impr oving. Needs return to work. Appointment Request (Routine) - Closed Specialty Diagnoses / Procedures Referred By Contact Refer red To Contact [facility] Internal Diagnoses CIM EST [facility] Medicine Procedures CIM EST Referral ID Status Reason Start Date Expiration Date Visits Requ ested Visits Authorized [id number] Closed 06/18/2018 06/18/2019 1 1 Encounter Details Date Type Department Care Team Description 06/23/2018 Office Visit Department of Maritza Banda V., Depressio n Anxiety (Primary Dx); Community Internal OUTER DIAMETER TECHNICIAN, C.N.P. Insomnia Medicine in [address] [address] [place], [place] [phone] (Work) [phone] Social History Tobacco Use Types Packs/Day Years [...] week 04/16/2019 How often do you attend zoroastrianism or confucianism services? 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 documented as of this encounter Last Filed Vital Signs Vital Sign Reading Time Taken Comments Blood Pressure 114/65 06/23/2018 8:28 AM VEHICLE AND EQUIPMENT CLEANER Pulse 67 06/23/2018 8:28 AM VEHICLE AND EQUIPMENT CLEANER Temperature 36.9 ??C (98.4 ??F) 06/23/2018 8:28 AM VEHICLE AND EQUIPMENT CLEANER Respiratory Rate 20 06/23/2018 8:28 AM VEHICLE AND EQUIPMENT CLEANER Oxygen Saturation - - Inhaled Oxygen Concentration - - Weight 94.8 kg (208 lb 15.9 oz) 06/23/2018 8:28 AM VEHICLE AND EQUIPMENT CLEANER Height - - Body Mass Index 32.8 05/07/2018 7:48 AM VEHICLE AND EQUIPMENT CLEANER documented in this encounter Patient Instructions Patient InstructionsDuntMaritza fisher APRN, C.N.P. - 06/23/2018 8:30 AM VEHICLE AND EQUIPMENT CLEANER Start Trazodone 50 mg every bedtime. You may double the dose if needed. You may return to work Tuesday June 26, 2018 CLE AND EQUIPMENT CLEANER documented in this encounter Progress Notes Maritza Banda APRN, C.N.P. - 06/23/2018 8:30 AM CST Chief Complaint Patient presents with ??? Follow-up Biopsy, tissue 05/20/18. Had retention issues and stomach issue(Friday, and Friday) is improving. Needs return to work. Seven Salazar is a 68 y.o. male who presents to clinic today requesting a note to return to work. He was off of work from [employer] in [place] for treatment for bladder cancer. 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 He is also complaining of not being able to sleep and of depression. He has had depression in the past and Dr. Sanchez placed him on citalopram. He was unable to tolerate the citalopram and did not need anything else once he came off of that. He has serial followups with Dr. Hernandez is a Neurology following my mitotocin C treatment. He denies any headaches fevers chills or night sweats. Denies any cardiac complaints including chestpain, palpitations, or angina. He has no respiratory complaints including orthopnea, dyspnea PND. Hehas no abdominal complaints including nausea, vomiting, diarrhea. He has had some hematuria following the biopsies that were recently done. He states this is clearingup any has no urinary complaints. He has no musculoskeletal complaints or neurological complaints. Current Outpatient Prescriptions: ??? albuterol sulfate 90 mcg/actuation aerosol powdr [...] bedtime., Disp: 90 tablet, Rfl: 3 ??? clopidogrel (PLAVIX) 75 mg tablet, Take 1 tablet (75 mg total) by mouth daily., Disp: 90 tablet,Rfl: 3 ??? isosorbide dinitrate (ISORDIL) 10 mg tablet, Take 1 tablet (10 mg total) by mouth 2 (two) times a day. Take 1 tablet in the morning and another 6 hr apart at noon., Disp: 180 tablet, Rfl: 3 ??? lisinopril (PRINIVIL,ZESTRIL) 20 mg tablet, Take 1 tablet (20 mg total) by mouth every morning.,Disp: 90 tablet, Rfl: 3 ??? metoprolol succinate (for_TOPROL-XL) 25 mg 24 hr tablet, Take 1 tablet (25 mg total) by mouth atbedtime. Do not crush or chew., Disp: 90 tablet, [...] if chest pain continues., Disp:, Rfl: ??? HYDROcodone-acetaminophen (NORCO) 5-325 mg per tablet, , Disp: , Rfl: ??? traZODone (DESYREL) 50 mg tablet, Take 1 tablet (50 mg total) by mouth at bedtime., Disp: 30 tablet, Rfl: 11 Allergies Allergen Reactions ??? Bupropion Hcl Other (see comments) Ceranusha listed no reactions. Suicidal thoughts. ??? Citalopram Diarrhea ??? Influenza Virus Vaccine Bivalent Other (see comments) Sickness, Cerner listed no reactions. ??? Pravastatin Myalgia and Other (see comments) Past Medical History: Diagnosis Date ??? Abuse Tobacco Smoking 07/03/2015 ??? Anemia 03/31/2017 ??? Arthralgia 07/03/2015 ??? Arthritis Shoulder 07/03/2015 ??? Bronchitis Chronic (HCC) 07/03/2015 ??? Coronary Artery Disease 06/12/2017 ??? Corticosteroid Treatment Snf Systemic 03/14/2017 ??? Cyst Renal 02/05/2016 ??? [...] 03/23/2004 ??? 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 Stroke ([facility]) 03/23/2004 Past Surgical History: Procedure Laterality [...] papillary urothelial carcinoma, Grade 1 of 3 Social History Social History ??? Marital status: Spouse name: N/A ??? Number of children: N/A ??? Years of education: N/A Occupational History ??? Not on file. Social History Main Topics ??? Smoking status: Current Some Day Smoker Packs/day: 0.20 Types: Cigarettes ??? Smokeless tobacco: Never Used Comment: 4 cigarettes per day ??? Alcohol use No ??? Drug use: Unknown ??? Sexual activity: Defer Other Topics Concern ??? Not on file Social History Narrative Caffeine: 2 cups coffee daily BP 114/65 (BP Location: Left arm, Patient Position: Sitting, Cuff Size: Regular) Pulse 67 Temp 36.9 ??C (Temporal) Resp 20 Wt 94.8 kg BMI 32.80 kg/m?? 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 No edema noted Neurological: Cranial nerves II-XII grossly intact ASSESSMENT/PLAN 1. Insomnia with depression. He will be placed on trazodone 50 mg at bedtime. He may repeat the dose if needed. If he does repeatthe dose he can take 100 mg at bedtime. He will start tonight as a trial to see how he tolerates themedication before he returns to work on Friday. 2. Return to work I gave him a return to work slip following his biopsies in bladder cancer treatment. He is 2 months post biopsy. He will follow up with Dr. Hernandez is a scheduled. Answers for HPI/ROS submitted by the patient on 05/25/2018 No general issues: Yes No eye issues: Yes No ENT issues: Yes No heart issues: Yes No respiratory issues: Yes No GI issues: Yes No muscle/bone issues: Yes No skin issues: Yes No neurologic issues: Yes No mental health issues: Yes No blood/lymph issues: Yes No urinary/reproductive issues: Yes CLE AND EQUIPMENT CLEANER documented in this encounter Plan of Treatment Upcoming Encounters Date Type Specialty Care Team Description 04/12/2022 Office Visit Cardiovascular Disease Simone Gooden AP RN, C.N.P. [address] [phone] (Wo rk) documented as of this encounter Visit Diagnoses Diagnosis Depression Anxiety - Primary Insomnia documented in this encounter Additional Health Concerns Assessment Noted Time PHQ-9 Depression Total Score: 18 06/23/2018 8:30 AM CS T documented as of this encounter Care Teams Continuity Coordinator Relationship Specialty Start Date End Date Leta Sanchez M.D. PCP - General 10/17/16 10/18/19 documented as of this encounter
--- OUTSIDE RECORDS SUMMARY | 2022-03-29 07:48 | XMS_ITS | Encounter Summary ---
:1950 Author Organization [facility] Address [address] [place] [address] Care Team Providers Name Role Phone Leta Sanchez M.D. Primary Care Provider Reason for Visit Reason Onset Date Comments cancel pre-op and surgery 09/14/2018 Encounter Details Date Type Department Care Team Description 09/14/2018 Clinical Department of Leta Sanchez cancel pre-op and Communication [facility] Internal M.DBhavesh surgery Medicine in [address] [place] [address] Romi Roberson, [facility] [address] [place], [place] [address] [facility] [address] [place] [phone] [address] (Fax) [phone] Social History Tobacco Use Types Packs/Day Years [...] week 04/16/2019 How often do you attend christianity or christian services? 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 PT called to cancel pre-op this morning- with Dr Sanchez. Current Can Nursing/Provider leave a detailed message: Did the patient refuse triage through Nurse line? (for symptom based concerns): Action Needed: call to reschedule surgery/ pre-op Name of Medication (if relevant): documented in this encounter Plan of Treatment Upcoming Encounters Date Type Specialty Care Team Description 04/12/2022 Office Visit Cardiovascular Disease Simone Gooden AP RN, C.N.P. [address] [phone] (Wo rk) documented as of this encounter Visit Diagnoses Not on filedocumented in this encounter Additional Health Concerns Assessment Noted Time PHQ-9 Depression Total Score: 18 06/23/2018 8:30 AM CS T documented as of this encounter Care Teams Rail Technician Relationship Specialty Start Date End Date Leta Sanchez M.D. PCP - General 10/17/16 10/18/19 documented as of this encounter
--- OUTSIDE RECORDS SUMMARY | 2022-03-29 07:48 | XMS_ITS | Encounter Summary ---
:1950 Author Organization [facility] Address [address] [place] [address] Care Team Providers Name Role Phone Leta Sanchez M.D. Primary Care Provider Encounter Details Date Type Department Care Team Description 08/31/2018 Clinical Communication Department of Urology Jatinder Camejo in [place], [place] M.D. [address] [place] [address] [place], [place] [phone] Social History Tobacco Use Types Packs/Day Years [...] How often do you attend yazidism or zoroastrianism services? 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 - 08/31/2018 11:19 AM CDT Patient was contacted and rescheduled to 09/07/18. Telephone Encounter - Jennifer Funk - 08/31/2018 7:10 AM CDT Reason for Communication: Patient calling in and had to reschedule his appt with Dr. Camejo today 08/31/18. is booking out until 10/19/18 (which patient was ok with waiting until that date). Sending a message to see if that is ok to have patient wait that long for a f/up visit for bladder cancer survillance. Please advise. Current Can Nursing/Provider leave a detailed message: Did the patient refuse triage through Nurse line? (for symptom based concerns): Action Needed: Call back if a earlier appt is needed. Name of Medication (if relevant): documented in this encounter Plan of Treatment Upcoming Encounters Date Type Specialty Care Team Description 04/12/2022 Office Visit Cardiovascular Disease Simone Gooden AP RN, C.N.P. [address] [phone] (Wo rk) documented as of this encounter Visit Diagnoses Not on filedocumented in this encounter Additional Health Concerns Assessment Noted Time PHQ-9 Depression Total Score: 18 06/23/2018 8:30 AM CS T documented as of this encounter Care Teams Dance Instructor Relationship Specialty Start Date End Date Leta Sanchez M.D. PCP - General 10/17/16 10/18/19 documented as of this encounter
--- OUTSIDE RECORDS SUMMARY | 2022-03-29 07:48 | XMS_ITS | Encounter Summary ---
:1950 Author Organization [facility] Address [address] [place] [address] Care Team Providers Name Role Phone Leta Sanchez M.D. Primary Care Provider Reason for Visit Reason Onset Date Comments SURGERY DATE 05/01/2018 Encounter Details Date Type Department Care Team Description 05/01/2018 Clinical Communication Department of Urology Jatinder Camejo, SURGERY DATE in Mame Tirado M.D. [address] [place] [phone] Social History Tobacco Use Types Packs/Day Years [...] How often do you attend buddhism or episcopal services? Never 04/16/2019 Do you belong to [...] at Date Recorded Male 06/28/2019 8:47 AM CLINICAL TRIAL EDUCATOR documented as of this encounter Miscellaneous Notes Telephone Encounter - Ondina Powers R.N. - 05/04/2018 7:35 AM CST Noted in desk senior production planner. ICAL TRIAL EDUCATOR Telephone Encounter - YunielsherriChristelle johnston - 05/01/2018 2:03 PM CST SURGEON: DR CAMEJO PRE Op: 05-07-[address] SANCHEZ SURGERY DATE: 05-20-18 PROCEDURES: 1). TRANSURETHRAL RESECTION OF BLADDER TUMOR 2). RANDOM BLADDER BIOPSIES 3). MITOMYCIN-C PLACEMENT ANESTHESIA: GENERAL/[facility] WILL CALL WITH ARRIVAL TIME ICAL TRIAL EDUCATOR documented in this encounter Plan of Treatment Upcoming Encounters Date Type Specialty Care Team Description 04/12/2022 Office Visit Cardiovascular Disease Simone Gooden AP RN, C.N.P. [address] [phone] (Wo rk) documented as of this encounter Visit Diagnoses Not on filedocumented in this encounter Care Teams Highway Engineering Technician Relationship Specialty Start Date End Date Leta Sanchez M.D. PCP - General 10/17/16 10/18/19 documented as of this encounter
--- OUTSIDE RECORDS SUMMARY | 2022-03-29 07:48 | XMS_ITS | Encounter Summary ---
:1950 Author Organization [facility] Address [address] [place] [address] Care Team Providers Name Role Phone Leta Sanchez M.D. Primary Care Provider Encounter Details Date Type Department Care Team Description 09/07/2018 Ancillary Procedure Department of Urology Social History [...] How often do you attend scientologist or hoahaoism services? 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 [address] [phone] (Wo rk) documented as of this encounter Procedures Procedure Name Priority Date/Time Associated Diagnosis Comme nts UROLOGY IMAGE EXAM Routine 09/07/2018 8:15 AM Res ults for this CDT procedure are i n the results section. documented in this encounter Results CYST0-Urology Image Exam (09/07/2018 8:15 AM CDT) Specimen (Source) Anatomical Collection Method Collection Time Re ceived Time Location / / Volume Laterality 09/07/2018 8:13 AM CDT Narrative [facility] - 09/07/2018 11:21 AM CDT This order has been created and auto-finalized to support the import of images acquired without order. The clini ming documentation to support these images can be found on the encounter lynda t produced images. Provider Not In System IMG NON RAD IMAGING PROCEDUR ES Performing Organization Address City/State/ZIP Code Phon e Number IIVA IIVA NA documented in this encounter Visit Diagnoses Not on filedocumented in this encounter Additional Health Concerns Assessment Noted Time PHQ-9 Depression Total Score: 18 06/23/2018 8:30 AM CS T documented as of this encounter Care Teams Lumber Planer Relationship Specialty Start Date End Date Leta Sanchez M.D. PCP - General 10/17/16 10/18/19 documented as of this encounter
--- OUTSIDE RECORDS SUMMARY | 2022-03-29 07:48 | XMS_ITS | Encounter Summary ---
:1950 Author Organization [facility] Address [address] [place] [address] Care Team Providers Name Role Phone Leta Sanchez M.D. Primary Care Provider Reason for Referral Outpatient (Routine) - Closed Specialty Diagnoses / Procedures Referred By Contact Refer red To Contact Cardiovascular Disease Diagnoses par Salomón Ruiz [facility] Procedures [address] [place] [address] Referral ID Status Reason Start Date Expiration Date Visits Requ ested Visits Authorized [id number] Closed 03/16/2018 03/16/2019 1 1 NESS RELATIONSHIP MANAGER Reason for Visit Reason Comments Follow-up 10/13/17 Outpatient (Routine) - Closed Specialty Diagnoses / Referred By Contact Referred To Contact Procedures Cardiovascular Diseases / Diagnoses Coronary Artery Disease (Unspecified) Leta Sanchez M.D. [facility] Cardiovascular Disease [address] [facility] [address] [place] [address] Referral ID Status Reason Start Date Expiration Date Visits Requ ested Visits Authorized [id number] Closed 03/06/2018 03/06/2019 1 1 Encounter Details Date Type Department Care Team Description 03/16/2018 Office Visit Department of Salomón Ruiz Tobacco Use (Primary Dx); Cardiovascular Diseases S MBhaveshDBhavesh Coronary Artery Disease in [facility] [address] [place] [phone] Social History Tobacco Use Types Packs/Day Years [...] week 04/16/2019 How often do you attend episcopal or confucianism services? Never 04/16/2019 Do you belong to any clubs or organizations such as episcopal N o 04/16/2019 groups, unions, fraternal or [...] at Date Recorded Male 06/28/2019 8:47 AM BUSINESS RELATIONSHIP MANAGER documented as of this encounter Last Filed Vital Signs Vital Sign Reading Time Taken Comments Blood Pressure 135/57 03/16/2018 9:34 AM BUSINESS RELATIONSHIP MANAGER Pulse 52 03/16/2018 9:34 AM BUSINESS RELATIONSHIP MANAGER Temperature - - Respiratory Rate - - Oxygen Saturation 99% 03/16/2018 9:34 AM BUSINESS RELATIONSHIP MANAGER Inhaled Oxygen Concentration - - Weight 94.2 kg (207 lb 10.8 oz) 03/16/2018 9:34 AM BUSINESS RELATIONSHIP MANAGER Height 170 cm (5' 6.93) 03/16/2018 9:34 AM BUSINESS RELATIONSHIP MANAGER Body Mass Index 32.6 03/16/2018 9:34 AM BUSINESS RELATIONSHIP MANAGER documented in this encounter Progress Notes Salomón Ruiz M.D. - 03/16/2018 9:45 AM CST ASSESSMENT / PLAN 1. Coronary artery disease. - NSTEMI 07/2017 (C 07/2017 80% Dx2, otherwise, <70% stenosis; medical Rx) and 03/2017 (s/p RENETTA to the RCA, LCX, mid and pLAD). - NST 03/05/2018 [facility]: small area of mild ischemia in the apex, LVEF 68%.? 2. Hypertension. 3. Hyperlipidemia. 4. Influenza A on 07/2017. 5. Chronic bronchitis. 6. Tobacco use. 7. Post prandial epigastric pain, resolved since his coronary revascularization 03/2017 (as per patient). 8. Depression/Anxiety. 9. Obesity, BMI 33. 10. Ectopy, atrial. 11. Polymyalgia rheumatica, as per chart 03/2017. 12. Bladder cancer, diagnosed 2009 with to recurrences in 2014 and 2015. 13. GERD. Coronary artery disease. Status post revascularization percutaneously March [address]-elevation myocardial infarction July 2017, likely type 2 secondary to influenza A. Residual obstructive coronary disease on the 2nd diagonal. Recurrence chest discomfort is not typical for ischemia even though features of similar to his prior events. Nuclear stress test showed small area of mild ischemia and preserved ejection fraction March 2018. In view of that, we decided to further up titrate his medical therapy. He is unable to tolerate isosorbide mononitrate at higher dosage due to headaches butthat has been taking SL nitroglycerin without any side effects. In view of that, I will change the re giment to isosorbide dinitrate to see if that will help improve symptoms without worsening headaches. The patient is well aware of the need to avoid combining PDE 5 inhibitors (which he currently does not take) with nitrates. No further titration beta-muna since the patient is bradycardic. I have consider adding ranolazine to his regimen but since symptoms are not typical for ischemia we decided to postpone at this time. His QT was normal at 443 milliseconds in February. Continue dual antiplatelettherapy and risk modification, see below. We educated the patient on when to seek emergency help. Some ectopy on exam but recent electrocardiogram is reassuring. Atrial ectopy is unlikely to cause cardi omyopathy. An echocardiogram is not needed at this time but may be considered in case new symptoms such as shortness of breath or heart failure developed. ?? Hypertension. Well controlled. Hyperlipidemia. Excellent lipids on high- intensity statin therapy. Continue management with his internal medicine doctor. ?? Tobacco use disorder. Complete smoking cessation strongly encouraged again today. this is the most important residual risk factor the patient has an may adversely impact his prognosis as we discussed today. He will continue working on that. ?? PLAN: 1. Stop isosorbide mononitrate. Start isosorbide dinitrate 10 mg twice a day, in the morning and at noon time. 2. Follow up with Cardiology in 3 months or sooner if needed. May post once to 6 months if symptoms are controlled with medical therapy. Patient expressed understanding and agreement with the plan. CARDIOLOGY SUBSEQUENT VISIT Location: [facility] CHIEF COMPLAINT Office follow-up. HISTORY OF PRESENT ILLNESS Mr. Seven Salazar is a very pleasant 68 y.o. male who presents to [facility] for follow-up. His primary care provider is Leta Sanchez M.D.. Last seen by me October 2017. Presentingunaccompanied by family. Patient presents today for evaluation of chest discomfort. This has been present for past 3 months, no chest pain for the last 9 days. He describes substernal chest ???harsh?? sensation which is 4 to 5/10 intensity but not severe. No other associated symptoms. Tends to occur during the daytime when active at home work. However, he does not have chest discomfort when exercising 4 days a week or walking at a fast pace. He does exercise but lifting weight and does aerobic exercise as well without problems or limitations. When he developed chest discomfort he has use nitroglycerin up to 3 tablets but in general he requires 1-2. No headaches with that. He does have headaches with higher dose of isosorb devonte mononitrate, currently taking 15 mg daily. He states he rest and symptoms tend to resolve after 30-45 minutes. He describes some increasing discomfort with deep breathing. No shortness of breath orother symptoms associated though. He was seen by his internal medicine provider March 02, 2018 with chest discomfort, abdominal discomfort diarrhea. Nuclear stress test ordered at [facility] and to isosorbide 30 mg daily started. Labs performed including troponin was done, reassuring results. We reviewed nuclear results with the patient. No side effects with current medication regiment. No bleeding abnormalities reported. Patient continues to smoke approximately 1 pack a week. He did stop for 4 days last week though and is continuing to work on quitting. PERTINENT CARDIAC (OR RELATED) STUDIES REVIEWED: Nuclear stress test, pharmacologic 03/05/2018 [facility]: 1.?There is a small area of mild ischemia in the apex.? 2.?Normal left ventricular ejection fraction of 68 percent.? No electrocardiographic evidence of inducible ischemia. Current Outpatient Medications Medication Sig ??? albuterol sulfate 90 mcg/actuation aerosol powdr breath activated Inhale 2 puffs 4 (four) times a day as needed (for shortness of breath and wheezing- Use with spacer chamber.). ??? aspirin 81 mg chewable tablet Chew 81 mg daily. ??? atorvastatin (for_LIPITOR) 80 mg tablet Take 1 tablet (80 mg total) by mouth at bedtime. From [facility] on 03/25. ??? clopidogrel (for_PLAVIX) 75 mg tablet Take 1 tablet (75 mg total) by mouth daily. For 1 year until 03/24/2018. ??? isosorbide mononitrate (IMDUR) 30 mg 24 hr tablet Take 0.5 tablets (15 mg total) by mouth every morning. ??? lisinopril (for_PRINIVIL,ZESTRIL) 20 mg tablet Take 1 tablet (20 mg total) by mouth every morning. ??? metoprolol succinate (for_TOPROL-XL) 25 mg 24 hr tablet Take 1 tablet (25 mg total) by mouth at bedtime. Do not crush or chew. ??? nitroglycerin (for_NITROSTAT) 0.[address] 0.4 mg under the tongue every 5 (five) minutes as needed for chest pain. Place 1 tab under the tongue at first sign of chest pain. If no relief in 5 min, call 911. Repeat dose every 5 min up to 2 additional doses if chest pain continues. Allergies Allergen Reactions ??? Bupropion Hcl Other (see comments) Eliceo listed no reactions. Suicidal thoughts. ??? Citalopram Diarrhea ??? Influenza Virus Vaccine Bivalent Other (see comments) Sickness, Eliceo listed no reactions. ??? Pravastatin Myalgia and Other (see comments) REVIEW OF SYSTEMS Cardiovascular: Positive for chest pain, pressure or tightness. Gastrointestinal: Positive for diarrhea. Hematologic: Negative for bruises or bleeds easily. All other systems reviewed and are negative. The following portions of the patient's history were reviewed and updated as appropriate: allergies,current medications, family history, medical history, social history and problem list. OBJECTIVE Vitals: 03/16/18 0934 BP: 135/57 BP Location: Left arm Patient Position: Sitting Cuff Size: Regular Pulse: (!) 52 SpO2: 99% Weight: 94.2 kg Height: 170 cm BP Readings from Last 3 Encounters: 03/16/18 135/57 03/09/18 136/55 03/02/18 139/75 Body mass index is 32.6 kg/m??. PHYSICAL EXAMINATION GENERAL: Patient is awake, alert, oriented x3. No acute distress. EYES: No pallor. No icterus. No xanthelasma. NECK: No jugular venous distention. No carotid bruits. CHEST/LUNGS: No chest deformity. Normal respiratory effort. Good entry bilaterally. No adventitious sounds. CARDIOVASCULAR: Normal rate and regular rhythm. Normal S1 and S2. No murmurs, rubs, or gallops. ABDOMEN: Exam deferred. LOWER EXTREMITIES: Lower extremity warm with trace let and 1+ right pitting edema. UPPER EXTREMITIES: 2+ Radial pulses bilaterally. Normal capillary refill. No cyanosis. NEUROLOGIC: Exam deferred. DIAGNOSTICS I have reviewed the patient's current laboratory, imaging, and other diagnostic studies. Pertinent laboratory studies have been reviewed and are notable for: Office Visit on 03/02/2018 Component Date Value [...] ??? Ventricular Rate ECG/Min 03/02/2018 58 ??? CT Interval 03/02/2018 190 ??? QRSD Interval 03/02/2018 122 ??? QT Interval 03/02/2018 452 ??? QTC Interval 03/02/2018 443 ??? P [facility] 03/02/2018 55 ??? R [facility] 03/02/2018 30 ??? T Wave [facility] 03/02/2018 37 ??? Test Name 03/02/2018 Troponin I ??? Result 03/02/2018 See Scanned Report Lab Results Component Value Date CHOL 92 07/22/2017 TRIG 75 07/22/2017 HDL 31 (L) 07/22/2017 HDL 78 04/26/2015 Electrocardiogram March 02, 2018: Sinus bradycardia, 58 bpm, premature atrial complexes, Low-voltage QRS, right bundle-branch block, nonspecific ST and T-wave abnormality, When compared to October 2017, right bundle-branch block as replace incomplete right bundle-branch block. IMPRESSION/REPORT/PLAN See above. Note: Dictated portions of this note were done using [employer] front-end speech recognition software. NESS RELATIONSHIP MANAGER documented in this encounter Plan of Treatment Upcoming Encounters Date Type Specialty Care Team Description 04/12/2022 Office Visit Cardiovascular Disease Simone Gooden AP RN, C.N.P. [address] [phone] (Wo rk) Scheduled Referrals Name Type Priority Associated Order Schedule Diagnoses Cardiovascular Disease Outpatient Referral Routine Expected: office visit (clinic) 2018 (Approximate), Expires: 03/16/2021 documented as of this encounter Visit Diagnoses Diagnosis Tobacco Use - Primary Coronary Artery Disease (Unspecified) documented in this encounter Care Teams Industrial Twisting Machine Operator Relationship Specialty Start Date End Date Leta Sanchez M.D. PCP - General 10/17/16 10/18/19 documented as of this encounter
--- OUTSIDE RECORDS SUMMARY | 2022-03-29 07:48 | XMS_ITS | Encounter Summary ---
:1950 Author Organization [facility] Address [address] [place] [address] Care Team Providers Name Role Phone Leta Sanchez M.D. Primary Care Provider Encounter Details Date Type Department Care Team Description 08/31/2018 Hospital Encounter Department of Leta Sanchez M.D. Pain Leg Left; Radiology in [address] [facility]; Romi Thibodeaux, [place] [address] [place], [place] [address] [address] JAYNA THIBODEAUX [phone] (Fax) [phone] Social History Tobacco Use Types Packs/Day Years [...] How often do you attend uatsdin or temple services? 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 Insomnia documented as of this encounter Progress Notes Micheline Mart, C.M.A. - 08/31/2018 11:59 PM CDT Left message for Patient to call back Micheline Mart C.M.A. - 08/31/2018 11:59 PM CDT Name of person contacted: Patient Relationship to patient: Not applicable Call back number: [phone] Tie In Machine Operator: Not applicable Information provided: left message per patient request with results. Let him know if he has any questions to call me back at the clinic well service floorperson/patient received and understood education/information provided: Yes well service floorperson/patient agreed to the Plan of Care: Yes documented in this encounter Plan of Treatment Upcoming Encounters Date Type Specialty Care Team Description 04/12/2022 Office Visit Cardiovascular Disease Simone Gooden AP RN, C.N.P. [address] [phone] (Wo rk) documented as of this encounter Procedures Procedure Name Priority Date/Time Associated Comments Diagnosis DX ANKLE LEFT 3+ RAD - Routine 08/31/2018 4:23 Pain Leg Left Results for this VIEWS (most inpatients PM CDT Pain Ankle Left procedure are in and all History Of the results outpatients) Falling section. DX TIBIA FIBULA RAD - Routine 08/31/2018 4:23 Pain Leg Left Results for this LEFT 2 VIEWS (most inpatients PM CDT Pain Ankle Left procedure are in and all History Of the results outpatients) Falling section. documented in this encounter Results DX Tibia Fibula Left 2 Views (08/31/2018 4:23 PM CDT) Anatomical Region Laterality Modality Lower Extremity, TibFib, Musculoskeletal RST LOS, Left Digital Radiography Musculoskeletal ARZ LOS, Muskuloskeletal FLA LOS Specimen (Source) Anatomical Collection Method Collection Time Re ceived Time Location / / Volume Laterality 08/31/2018 4:42 PM CDT Impressions 08/31/2018 4:44 PM CDT IMPRESSION: Chondrocalcinosis and moderate to advanced degenerative change left knee. Narrative 08/31/2018 4:44 PM CDT EXAM: DX ANKLE LEFT 3+ VIEWS, DX TIBIA FIBULA LEFT 2 VIEWS COMPARISON: None FINDINGS: Chondrocalcinosis and moderate to advanced degenerative change left knee most prominently involving the medi al compartment. ??Scattered vascular calcifications. ??Left posterior calcane al spur. ??Left ankle otherwise unremarkable. ??No acute fracture or sof t tissue abnormality. Procedure Note Jarret Kwon M.D. - 08/31/2018Formatti ng of this note might be different from the original. EXAM: DX ANKLE LEFT 3+ VIEWS, DX TIBIA F IBULA LEFT 2 VIEWS COMPARISON: None FINDINGS: Chondrocalcinosis and moderate to advanced degenerative change left knee most prominently involving the medi al compartment. Scattered vascular calcifications. Left posterior calcaneal spur. Left ankle otherwise unremarkable. No acute fracture or soft tissue abnormality. IMPRESSION: Chondrocalcinosis and modera te to advanced degenerative change left knee. Leta Sanchez M.D. IMG DIAGNOSTIC IMAGING PROCE DIMITRIOS DX Ankle Left 3+ Views (08/31/2018 4:23 PM CDT) Anatomical Region Laterality Modality Lower Extremity, Ankle, Musculoskeletal RST LOS, Left Digital Radiography Musculoskeletal ARZ LOS, Muskuloskeletal FLA LOS Specimen (Source) Anatomical Collection Method Collection Time Re ceived Time Location / / Volume Laterality 08/31/2018 4:42 PM CDT Impressions 08/31/2018 4:44 PM CDT IMPRESSION: Chondrocalcinosis and moderate to advanced degenerative change left knee. Narrative 08/31/2018 4:44 PM CDT EXAM: DX ANKLE LEFT 3+ VIEWS, DX TIBIA FIBULA LEFT 2 VIEWS COMPARISON: None FINDINGS: Chondrocalcinosis and moderate to advanced degenerative change left knee most prominently involving the medi al compartment. ??Scattered vascular calcifications. ??Left posterior calcane al spur. ??Left ankle otherwise unremarkable. ??No acute fracture or sof t tissue abnormality. Procedure Note Jarret Kwon M.D. - 08/31/2018Formatti ng of this note might be different from the original. EXAM: DX ANKLE LEFT 3+ VIEWS, DX TIBIA F IBULA LEFT 2 VIEWS COMPARISON: None FINDINGS: Chondrocalcinosis and moderate to advanced degenerative change left knee most prominently involving the medi al compartment. Scattered vascular calcifications. Left posterior calcaneal spur. Left ankle otherwise unremarkable. No acute fracture or soft tissue abnormality. IMPRESSION: Chondrocalcinosis and modera te to advanced degenerative change left knee. Leta Sanchez M.D. IMG DIAGNOSTIC IMAGING PROCE DIMITRIOS documented in this encounter Visit Diagnoses Diagnosis Pain Leg Left Pain Ankle Left History Of Falling documented in this encounter Additional Health Concerns Assessment Noted Time PHQ-9 Depression Total Score: 18 06/23/2018 8:30 AM CS T documented as of this encounter Care Teams Manager Of Enterprise Relationship Specialty Start Date End Date Leta Sanchez M.D. PCP - General 10/17/16 10/18/19 documented as of this encounter
--- OUTSIDE RECORDS SUMMARY | 2022-03-29 07:48 | XMS_ITS | Encounter Summary ---
:1950 Author Organization [facility] Address [address] [place] [address] Care Team Providers Name Role Phone Leta Sanchez M.D. Primary Care Provider Reason for Referral Outpatient (Routine) - Closed Specialty Diagnoses / Procedures Referred By Contact Refer red To Contact Community Internal Leta Sanchez M.D. [facility] Medicine [address] [facility], [facility] [address] [place] [address] Referral ID Status Reason Start Date Expiration Date Visits Requ ested Visits Authorized [id number] Closed 10/05/2018 10/05/2019 1 1 Scheduling Instructions Three month follow-up. utpatient (Routine) - Closed Specialty Diagnoses / Procedures Referred By Referred To Contact Contact Physical Medicine and Diagnoses Primary Osteoarthritis Knee Left PAR REVIEW Let[facility] M.D. [facility] Rehabilitation Procedures PMR [address], [place] [address] [place] [address] Referral ID Status Reason Start Date Expiration Date Visits Requ ested Visits Authorized [id number] Closed 10/05/2018 10/05/2019 1 1 Reason for Visit Reason Comments Pre-op Exam Transurethral resection of b ladder tumor, bladder bx, mitomycin-C placement with Dr. Camejo on 10/14/2018 at [facility] Results would like the results of hi s x-rays Outpatient (Routine) - Closed Specialty Diagnoses / Procedures Referred By Contact Refer red To Contact Family Medicine Diagnoses 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HCC) Jatinder Camejo M.D. [facility] Region [address] [place] [address] Referral ID Status Reason Start Date Expiration Date Visits Requ ested Visits Authorized [id number] Closed 09/07/2018 09/07/2019 1 1 Encounter Details Date Type Department Care Team Description 10/05/2018 Office Visit Department of Leta Sanchez M.D . 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 - 10/05/2018 10:00 AM CDT SUBJECTIVE CHIEF COMPLAINT/REASON FOR VISIT Proposed surgery date: 10/14/2018 Surgeon: Dr. Jatinder Camejo Proposed surgery: Transurethral resection of bladder tumor with random bladder biopsies and Mitomycin-C placement Location: [facility] HISTORY OF PRESENT ILLNESS Seven Salazar is a 68 y.o. male who presents to the clinic today for a preanesthetic medical evaluation. I am asked by Dr. Jatinder Camejo to assess whether Seven Salazar is an adequate candidatefor anesthesia for Transurethral resection of bladder tumor with random bladder biopsies and Mitomycin-C placement on 10/14/2018. Patient discussed with Dr. Jatinder Camejo regarding risks, benefits, andalternative therapy. Patient is willing to proceed because the benefits outweigh the risks. He follows with Urology for recurrent bladder cancer. He continued to smoke tobacco. He is doing fine today. He does not have acute complaint. He has coronary artery disease with stable angina. He doesnot have chest pain unless he exerts himself in usually relieved by rest and sublingual nitroglycerin. He has not taken sublingual nitroglycerin for a while. He follows with electronics mechanic. He had cardiac stent placement in March 2017. He completed Plavix therapy. He takes aspirin daily. He has depression, anxiety and insomnia. He stopped taking trazodone because he is able to sleep without medication. He is complaining of pain in the left knee. He had x-ray of left tibia fibular and left ankle on 0 08/31/2018. We discussed x-ray findings. He has chondrocalcinosis and moderate to advanced degenerative changes of the left knee, scattered vascular calcification and left posterior calcaneal spur. He continued to have problem with knee joint. It was decided to get physical medicine and rehabilitation consultation. There have been no complications during or after previous surgeries. Patient denies any personal or family history intolerance to general anesthesia. Patient denies any reaction to blood transfusions. There is no personal history of hepatitis, jaundice, bleeding disorder, or drug resistant infection like MRSA or VRE. There was no family or personal history of blood clots in legs or lungs. I reviewed and updated medical record. Medication [...] additional doses if chest pain continues. ??? HYDROcodone-acetaminophen (NORCO) 5-325 mg per tablet ??? traZODone (DESYREL) 50 mg tablet Take [...] Disease (Unspecified) 06/12/2017 ??? Coronary Artery Disease [place] Vessel 06/12/2017 ??? Corticosteroid Treatment Geek Squad Manager Systemic 03/14/2017 ??? Cyst Renal 02/05/2016 ??? [...] 02/12/2010 Health Maintenance Topic Date Due ??? Fall Risk Screen (Annual) 05/05/2018 ??? Influenza Vaccine (1) 05/19/2019 (Originally 12/03/2017) ??? Zoster Vaccines (1 of 2) 05/19/2019 (Originally 1999) ??? Depression Monitoring (PHQ-9) 10/21/2018 ??? Creatinine Level 07/23/2019 ??? Potassium Level 07/23/2019 ??? Office Visit for Blood Pressure Check / Re-check 09/08/2019 ??? DTaP,Tdap,and Td Vaccines (2 - Td) 02/13/2020 ??? Fasting Glucose for Diabetes Screening 07/22/2021 ??? Colon Cancer Screening 11/25/2021 ??? Fasting Lipid Panel 07/22/2022 ??? Abdominal Aortic Aneurysm (AAA) Screen Completed ??? Pneumococcal High/Highest Risk Adult 65+ Completed ??? Hepatitis C Screening Completed SOCIAL [...] on phone: None Gets together: None Attends baptist service: None Active member of club or [...] Lung cancer Sister OBJECTIVE VITAL SIGNS Vitals: 10/05/18 0956 10/05/18 0959 BP: (!) 141/53 129/62 Patient Position: Sitting Sitting Pulse: 71 72 Temp: 36.8 ??C Resp: 16 Height: 173 cm Weight: 95.1 kg SpO2: 95% TempSrc: Temporal PHYSICAL EXAM General: Patient is sitting. No distress. Able to talk without interruption. Skin: No rash, bruise or nodules. Head: No facial rash, asymmetry or sinus tenderness. Eyes: PERRLA. EOMI. No pallor, icterus or conjunctivitis. ENT: No nasal congestion, discharge or bleeding. Tongue is moist and midline. No oral lesions. Lymph nodes: No cervical or supraclavicular lymphadenopathy. Thyroid: No thyromegaly. No thyroid thrill or bruit. Peripheral vessels: Good radial pulses. Heart: No carotid bruit. No JVD. Regular rhythm. There is no S3, gallop, murmur or thrill. Lungs: Normal respiratory effort. Clear to auscultation. Abdomen: Moves with respiration. Bowel sounds present. Soft. No rebound tenderness, guarding or rigidity. Spine: No spinous tenderness or mass. Joints: No joint swelling or deformity. No decreased range of motion. Extremities: No clubbing, cyanosis, edema, infection or calf tenderness. Mental: Alert and oriented x 3. Normal mood and affect. Neuro: Grossly nonfocal. ASSESSMENT / PLAN #1 Preoperative Exam #2 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HCC) He is here today for preoperative medical evaluation prior to Transurethral resection of bladder tumor with random bladder biopsies and Mitomycin-C placement on 10/14/2018. The patient is stable from acardiac and respiratory standpoint. There is no absolute contraindication for planned procedure. Patient discussed with Dr. Jatinder Camejo regarding risks, benefits, and alternative therapy. Patient is willing to proceed because the benefits outweigh the risks. EKG from 03/02/2018 showed sinus bradycardia with premature atrial complexes and right bundle branch block. Ventricular rate was 58 beats per minute. Need to be nothing by mouth the night before surgery. Patient will take morning medications with a sip of water the morning of surgery and restart all medications after surgery. #3 Coronary Artery Disease With Stable Angina (HCC) #4 Coronary Stent Status Post On March 2017 He is stable from cardiac standpoint. There [...] be less than 130/80 mm Hg. #6 Depression Anxiety #7 Insomnia He is doing fine. He does not need medication at this time. He can take trazodone as needed for sleep. #8 Abuse Tobacco Smoking Advised him to quit smoking tobacco. #9 Primary Osteoarthritis Knee Left We discussed x-ray findings of left tibia, fibula and left ankle. Referred him to see Dr. Cardona, physical medicine and rehabilitation physician for consultation. #10 Renew Medications The following medications were renewed: #11 Followup Visit Return to the clinic in January 2019 for follow-up. Please send a copy to Dr. Jatinder Camejo and [facility]. Thank you for allowing me to participate in the care of this patient. documented in this encounter Plan of Treatment Upcoming Encounters Date Type Specialty Care Team Description 04/12/2022 Office Visit Cardiovascular Disease Simone Gooden AP RN, C.N.P. [address] [phone] (Wo rk) Scheduled Referrals Name Type Priority Associated Diagnoses [facility] and Outpatient Routine Primary Expect ed: Rehabilitation - Referral Osteoarthritis Knee 07/2018 General consult Left (Approximate ), (clinic) Expires: 10/05/2021 Community Internal Outpatient Routine Expected: Medicine office visit Referral 2018 (clinic) (Approximate), Expires: 10/05/2021 documented as of this encounter Visit Diagnoses Diagnosis Preoperative Exam - Primary Malignant Neoplasm Of Bladder Lateral Wa ll (HCC) Coronary Artery Disease With Stable Gladis na (HCC) Coronary Stent Status Post 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 PCP - General 10/17/16 10/18/19 documented as of this encounter
--- OUTSIDE RECORDS SUMMARY | 2022-03-29 07:49 | XMS_ITS | Encounter Summary ---
:1950 Author Organization [facility] Address [address] [place] [address] Care Team Providers Name Role Phone Leta Sanchez M.D. Primary Care Provider Reason for Visit Reason Comments Follow-up Isosorbide is causing headac hes Outpatient (Routine) - Closed Specialty Diagnoses / Procedures Referred By Contact Refer red To Contact [facility] Internal Diagnoses CIM EST Leta Sanchez M.D. [facility] Medicine [address] [facility] [place] [address] [place] [address] Referral ID Status Reason Start Date Expiration Date Visits Requ ested Visits Authorized [id number] Closed 03/02/2018 03/02/2019 1 1 Encounter Details Date Type Department Care Team Description 03/09/2018 Office Visit Department of Leta Sanchez M.D . Pain Chest (Primary Dx); Community Internal [address] [place], Cor onary Artery Disease; Medicine in [email or web address] [address] Coronary Stent Status Post; [place], [place], [place] Hypertensive Heart And Chron ic Kidney Disease Without Heart Failure And With Stage 2 (Mild) Chronic Kidney Disease; [address] [address] Abuse Tobacco Smoking; JAYNA THIBODEAUX Headache [id number] Social History Tobacco Use Types Packs/Day [...] How often do you attend gnosticism or sabianism services? 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 documented as of this encounter Last Filed Vital Signs Vital Sign Reading Time Taken Comments Blood Pressure 136/55 03/09/2018 1:12 PM RECREATION SUPERVISOR Pulse 82 03/09/2018 1:12 PM RECREATION SUPERVISOR Temperature - - Respiratory Rate 16 03/09/2018 1:12 PM RECREATION SUPERVISOR Oxygen Saturation - - Inhaled Oxygen Concentration - - Weight 93.9 kg (207 lb 0.2 oz) 03/09/2018 1:12 PM RECREATION SUPERVISOR Height 170 cm (5' 6.93) 03/09/2018 1:12 PM RECREATION SUPERVISOR Body Mass Index 32.49 03/09/2018 1:12 PM RECREATION SUPERVISOR documented in this encounter Patient Instructions Patient InstructionsLeta Sanchez M.D. - 03/09/2018 1:30 PM CST You may cut back isosorbide mononitrate dose, 15 mg (1/2 tablets of 30 mg pill) by mouth daily in the morning if you have severe headache from that medication. You can take Tylenol as needed for headache. Please follow with power electronics research engineer next Friday for further evaluation management of coronary artery disease and positive stress test. Please avoid strenuous activities for the time being and take nitroglycerin under the tongue as needed, as instructed for chest pain and call 911 and go to emergency department if there is recurrent persistent chest pain. Please continue current medications and not to smoke tobacco. Return to clinic after completion of cardiology evaluation. EATION SUPERVISOR documented in this encounter Progress Notes Leta Sanchez M.D. - 03/09/2018 1:30 PM CST SUBJECTIVE CHIEF COMPLAINT/REASON FOR VISIT Discuss stress test results. HISTORY OF PRESENT ILLNESS Seven Salazar is a 68 y.o. male who presents to the clinic today to discuss stress test results. I recently saw him on 03/02/2018 for pain in his abdomen and chest. Because of his history of coronary artery disease with stents placement in 03/2017 and non- ST elevation myocardial infarction likely secondary to influenza A in 07/2017, cardiac workup and stress test were ordered. Imdur was started. Chest x-ray and labs were normal. EKG was sinus bradycardia. He had stress test on 03/04/2018. It showed a small area of mild ischemia in the apex. Ejection fraction 68%. He was contacted with results and advised to see cardiology. Patient has appointment with Dr. Salomón Ruiz, Stitch Bonding Machine Operator, next week. He had to take a couple of Nitro on Friday [03/07/2018] for chest pain, which resolved his symptoms. He is having headaches since taking Imdur. On a pain scale, his headaches are ranging from 4-8/10.He has not smoked for two days. I reviewed and updated his medication list. We discussed potential side effects. There are no additional questions, concerns, or complaints. CURRENT MEDICATIONS Current Outpatient Prescriptions [...] mg total) by mouth at bedtime. From [facility]'s discharge on 03/25. 90 tablet 3 ??? clopidogrel (for_PLAVIX) 75 mg tablet Take 1 tablet (75 mg total) by mouth daily. For 1 year until 03/24/2018. 90 tablet 3 ??? isosorbide mononitrate (IMDUR) 30 mg 24 hr tablet Take 0.5 tablets (15 mg total) by mouth every morning. 45 tablet 3 ??? lisinopril (for_PRINIVIL,ZESTRIL) 20 mg [...] Coronary Artery Disease 06/12/2017 ??? Corticosteroid Treatment Linoleum Floor Layer Systemic 03/14/2017 ??? Cyst Renal 02/05/2016 ??? [...] Complex (HCC) 03/23/2004 ??? Stricture Urethra 02/05/2016 SURGICAL HISTORY Past Surgical History: Procedure Laterality [...] Lung cancer Sister OBJECTIVE VITAL SIGNS Vitals: 03/09/18 1312 BP: 136/55 Patient Position: Sitting Pulse: 82 Resp: 16 Height: 170 cm Weight: 93.9 kg PHYSICAL EXAMINATION General: Patient is sitting. No distress. Able to talk without interruption. ASSESSMENT / PLAN #1 Pain Chest #2 Coronary Artery Disease #3 Coronary Stent Status Post PCI With RENETTA To RCA And LCx On 03/22/2017 #4 Hypertensive Heart And Chronic Kidney Disease Without Heart Failure And With Stage 2 (Mild) Chronic Kidney Disease #5 Abuse Tobacco Smoking PLAN: His stress test on 03/04/2018 showed a small area of mild ischemia in the apex. He was advisedto keep appointment with Dr. Ruiz, Stitch Bonding Machine Operator, on 03/16/2018 for further evaluation and management. Because of headaches, he can decrease Imdur to 15 mg daily. Need to continue other medication and cardiovascular risk factor modification. He needs to quit smoking completely. He was advised to take it easy. If he has recurrent chest pain, he should take Nitroglycerin every 5 minutes up to three doses. He should call 911 and go to hospital ER if he has recurrent, persistent chest pain. #6 Headache PLAN: He can decrease Imdur from 30 to 15 mg daily if he has severe headaches. Patient can take Tylenol as needed, not to exceed Acetaminophen 4000 mg in 24 hours. #7 Followup Visit PLAN: Return to the clinic after cardiology evaluation. This document serves as a record of services personally performed by Dr. Leta Sanchez. It was created on their behalf by Juan Ramos, a trained medical imaging specialist. The creation of this record is based on the scribe's personal observations and the provider's statements to them. This document has been checked and approved by the attending provider. EATION SUPERVISOR documented in this encounter Plan of Treatment Upcoming Encounters Date Type Specialty Care Team Description 04/12/2022 Office Visit Cardiovascular Disease Simone Gooden AP RN, C.N.P. 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 PCP - General 10/17/16 10/18/19 documented as of this encounter
--- OUTSIDE RECORDS SUMMARY | 2022-03-29 07:49 | XMS_ITS | Encounter Summary ---
:1950 Author Organization [facility] Address [address] [place] [address] Care Team Providers Name Role Phone Leta Sanchez M.D. Primary Care Provider Encounter Details Date Type Department Care Team Description 03/02/2018 Clinical Communication Department of Gareth Sanchez M.D. [facility], Medicine in [address] [address] [place] [address] Social History Tobacco Use Types [...] How often do you attend congregation or confucianist services? 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 - 03/02/2018 4:58 PM CDT Order completed and faxed to [facility] along with face sheet and [facility] Imaging Prior Authorization Checklist. Telephone Encounter - Leta Sanchez M.D. - 03/02/2018 11:49 AM CDT Please call [address] to schedule nuclear stress test with sestamibi scan this week. Diagnosis: Chest pain, coronary artery disease, status post coronary artery stent. documented in this encounter Plan of Treatment Upcoming Encounters Date Type Specialty Care Team Description 04/12/2022 Office Visit Cardiovascular Disease Simone Gooden AP RN, C.N.P. [address] [phone] (Wo rk) documented as of this encounter Visit Diagnoses Not on filedocumented in this encounter Care Teams Flange Turner Relationship Specialty Start Date End Date Leta Sanchez M.D. PCP - General 10/17/16 10/18/19 documented as of this encounter
--- OUTSIDE RECORDS SUMMARY | 2022-03-29 07:49 | XMS_ITS | Encounter Summary ---
:1950 Author Organization [facility] Address [address] [place] [address] Care Team Providers Name Role Phone Leta Sanchez M.D. Primary Care Provider Reason for Visit Reason Comments Injury DOI 09/28/17, fell in backyar d, hit ankle on landscaping stone Pain Injury Outpatient (Routine) - Closed Specialty Diagnoses / Procedures Referred By Contact Refer red To Contact Orthopedic Surgery Diagnoses Pain Leg Leta Sanchez M.D. [facility] Region [address] [facility], [place] [address] [place] [address] Referral ID Status Reason Start Date Expiration Date Visits Requ ested Visits Authorized [id number] Closed 10/10/2017 10/10/2018 1 1 Encounter Details Date Type Department Care Team Description 10/16/2017 Comprehensive Visit Department of Alfredo Vargas Contu sion Leg Initial Right (Primary Dx); Orthopedic Surgery M.Ele Pain Leg in [place], [address] [facility], [facility] [address] [place] [id number] [phone] Social History Tobacco Use Types Packs/Day Years Used Date Smoking Tobacco: Heavy Cigarettes Last attempted to quit: Smoker 03/27/2017 Smokeless Tobacco: Never Comments: 4 cigarettes per [...] Date Recorded 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 - 10/16/2017 2:30 PM CDT SUBJECTIVE Pain reported: Site 1 Pain Score: 3, Pain Location: Ankle, Pain Orientation: Right, Pain Descriptors: Aching, Sore, Pain Frequency: Constant/continuous, (10/16/17 1400 : Carolyn Blue L.P.N.) REASON FOR CONSULT Seven Salazar is a 67 y.o. male who presents for evaluation of Pain and Injury of the Right Ankle and Injury (DOI 09/28/17, fell in backyard, hit ankle on landscaping stone) and is under the care ofLeta Sanchez M.D.. HISTORY OF PRESENT ILLNESS This is a 67-year-old man with complaints of right lower leg pain. He had an injury about 4 weeks ago in which she fell in his right leg fell onto some landscaping type stone in material. He was able to get up and hobble around on the leg. He does think there was some swelling in the leg after this occurred. 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 Without Obstruction #18 High Risk Medication #19 Hyperlipidemia #20 Insomnia #21 Leukocytosis #22 Lipoma Skin #23 Mass Kidney #24 Migraine Headache #25 Myalgia #26 Obesity NOS #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 #28 Pain Back #29 Pain Shoulder #30 Presbyopia #31 Intraocular Lens Implant Status Post #32 Tumor Skin Uncertain Behavior #33 Tag Skin #34 Dyspnea NOS #35 Stricture Urethra #36 Non-ST Elevation Myocardial Infarction (HCC) #37 Coronary Stent Status Post #38 Anemia #39 Tobacco Use #40 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 APPENDECTOMY 02/23/1968 ??? ARTHROPLASTY OF SHOULDER Right 05/07/2013 ??? CATARACT EXTRACTION AND INSERTION OF INTRAOCULAR LENS Right 08/16/2008 ??? CATARACT EXTRACTION AND INSERTION OF INTRAOCULAR LENS Left 02/22/2009 ??? CERVICAL LAMINECTOMY 05/31/1999 Left C5-C6 foraminotomy and hemilaminectomy, left C6-C7 foraminotomy and hemilaminectomy and diskectomy. ??? COLONOSCOPY 2005 ??? COLONOSCOPY 11/26/2011 ??? EXCISION LIPOMA 02/19/2010 ??? EXCISION LIPOMA Posterior 07/16/1999 >Excision of large back lipoma. ??? EXCISION OF LESION OF SKIN 06/04/2013 Dermal nevus on left cheek/nasolabial fold ? ? HEAD & NECK SKIN LESION EXCISIONAL BIOPSY 04/11/1998 Excision of benign lesion of scalp and neck ??? TRANSURETHRAL RESECTION OF BLADDER TUMOR 02/19/2010 Non invasive papillary urothelial carcinoma, Grade 1 of 3 Tobacco history is History Smoking Status ??? Heavy Tobacco Smoker ??? Types: Cigarettes ??? Last attempt to quit: 03/27/2017 Smokeless Tobacco ??? Never Used Comment: 4 cigarettes per day . The following portions of the patient's history were reviewed and updated as appropriate: allergies,current medications, family history, medical history, social history, surgical history and problem list. REVIEW OF SYSTEMS Review of Systems OBJECTIVE PHYSICAL EXAM Ortho Exam Exam the patient is a generally fit appearing man pleasant and cooperative in no acute distress. Hisright ankle has no deformity. He has good ankle range of motion. He does have some mild pitting edema from his mid tibial region up towards his knee. He has some puft-tv-ejezavax tenderness with palpation over the distal fibular shaft. He has no medial tenderness. DIAGNOSTICS INR Date Value Ref Range Status 07/22/2017 1.2 0.9 - 1.1 Final Comment: ADDITIONAL INFORMATION Standard intensity warfarin therapeutic range: 2.0 to 3.0 High intensity warfarin therapeutic range: 2.5 to 3.5 03/21/2017 1.0 0.9 - 1.1 Final Comment: ADDITIONAL INFORMATION Standard intensity warfarin therapeutic range: 2.0 to 3.0 High intensity warfarin therapeutic range: 2.5 to 3.5 Hemoglobin A1c, B Date Value Ref Range Status 03/04/2017 6.0 (H) <=5.6 A1C Final Sedimentation Rate, B Date Value Ref Range Status 03/04/2017 33 (H) 0 - 22 MMHR Final C-Reactive Protein (CRP), S Date Value Ref Range Status 05/01/2017 39.4 (H) <=8.0 mg/L Final IMAGING Patient did have x-rays taken recently which I reviewed personally independently. There is a very tiny avulsion injury probably old involving the tip of his medial malleolus. No lateral injuries noted.He does have diffuse degenerative changes throughout his foot and also involving his knee. ASSESSMENT / PLAN #1 Pain Leg I suspect that his injuries related to a bone contusion. He is unable to take oral NSAIDs because ofof blood thinners he is on from a stent placed recently. Recommended simple conservative care with heat and ice and restriction of activity as needed. I did offer an suggest physical therapy but the patient indicated he does not have time for that. Follow-up in a couple of months if problems persist. documented in this encounter Plan of Treatment Upcoming Encounters Date Type Specialty Care Team Description 04/12/2022 Office Visit Cardiovascular Disease Smione Gooden AP RN, C.N.P. [address] [phone] (Wo rk) documented as of this encounter Visit Diagnoses Diagnosis Contusion Leg Initial Right - Primary Pain Leg documented in this encounter Additional Health Concerns Assessment Noted Time PHQ-9 Depression Total Score: 5 07/23/2017 9:28 AM CDT documented as of this encounter Care Teams Braider Operator Relationship Specialty Start Date End Date Leta Sanchez M.D. PCP - General 10/17/16 10/18/19 documented as of this encounter
--- OUTSIDE RECORDS SUMMARY | 2022-03-29 07:49 | XMS_ITS | Encounter Summary ---
:1950 Author Organization [facility] Address [address] [place] [address] Care Team Providers Name Role Phone Riley Sanchez M.D. Primary Care Provider Reason for Referral Outpatient (Routine) - Closed Specialty Diagnoses / Referred By Contact Referred To Contact Procedures Cardiovascular Diseases / Diagnoses Coronary Artery Disease (Unspecified) Riley Sanchez M.D. [facility] Cardiovascular Disease [address], [address] [address] Referral ID Status Reason Start Date Expiration Date Visits Requ ested Visits Authorized [id number] Closed 03/06/2018 03/06/2019 1 1 Encounter Details Date Type Department Care Team Description 03/05/2018 Clinical Communication Department of Gareth Sanchez M.D. [facility] [address] [facility] [address] [address] [place] [address] Social History Tobacco Use Types [...] How often do you attend cheondoism or moravian services? 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 Ruiz 03/16/18. Telephone Encounter - Micheline Mart C.M.A. - 03/06/2018 1:22 PM CDT Please call patient and schedule appt with Dr. Dahl Addendum Note - Riley Sanchez M.D. - 03/06/2018 12:21 PM CDT Addended by: RILEY SANCHEZ on: 03/06/2018 12:21 PM Modules accepted: Orders Telephone Encounter - Riley Sanchez M.D. - 03/06/2018 12:20 PM CDT Order is in EHR. Telephone Encounter - Juany Hebert L.P.N. - 03/06/2018 10:51 AM CDT SUBJECTIVE CHIEF COMPLAINT / REASON FOR CALL No chief complaint on file. INFORMATION DISCUSSED Stress Test Results. Patient advised of results and Dr. Sanchez's recommendations as listed below. Patient agreed to see Cardiology and would like to see Dr. Salvador in [place]. Please place the order for patient to schedule. PLAN Disposition/Recommendation: patient to schedule appointment Information: patient/caller able to repeat back in their own words Caller agreeable to plan of care: yes The following references were used: provider Laura Telephone Encounter - Edwin Gabriel V. C.M.A. - 03/05/2018 3:49 PM CDT Attempted to contact patient and left a voicemail with call back number. Telephone Encounter - Riley Sanchez M.D. - 03/05/2018 2:53 PM CDT Please call. Stress test from 03/04/2018 showed a small area of mild ischemia in the apex. He may have small blockage. He should see press operator assistant. If he can drive to [facility] I will refer him to see press operator assistant in [place]. Otherwise he can see 1 of the cardiologists here in [facility]. Please let me know what he decides. documented in this encounter Plan of Treatment Upcoming Encounters Date Type Specialty Care Team Description 04/12/2022 Office Visit Cardiovascular Disease Simone Gooden AP RN, C.N.P. [address] [phone] ([facility]) Scheduled Referrals Name Type Priority Associated Order Schedule Diagnoses Cardiovascular Disease Outpatient Referral Routine Coronary Ar precious Expected: - General consultative Disease 03/06 cardiology consult (Approxim ate), (clinic) Expires: 03/06/2021 documented as of this encounter Visit Diagnoses Diagnosis Coronary Artery Disease (Unspecified) - Primary documented in this encounter Care Teams Pound Attendant Relationship Specialty Start Date End Date Riley Sanchez M.D. PCP - General 10/17/16 10/18/19 documented as of this encounter
--- OUTSIDE RECORDS SUMMARY | 2022-03-29 07:49 | XMS_ITS | Encounter Summary ---
:1950 Author Organization [facility] Address [address] [place] [address] Care Team Providers Name Role Phone Leta Sanchez M.D. Primary Care Provider Encounter Details Date Type Department Care Team Description 01/15/2018 Clinical Communication Department of Gareth Sanchez M.D. [facility] Internal [facility], Medicine in [address] [address] [facility] [place] [address] Social History Tobacco Use Types [...] week 04/16/2019 How often do you attend alevism or worship services? 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 [address] [phone] (Wo rk) documented as of this encounter Visit Diagnoses Not on filedocumented in this encounter Care Teams Photographer Finish Relationship Specialty Start Date End Date Leta Sanchez M.D. PCP - General 10/17/16 10/18/19 documented as of this encounter
--- OUTSIDE RECORDS SUMMARY | 2022-03-29 07:49 | XMS_ITS | Encounter Summary ---
:1950 Author Organization [facility] Address [address] [place] [address] Care Team Providers Name Role Phone Leta Sanchez M.D. Primary Care Provider Encounter Details Date Type Department Care Team Description 03/02/2018 Hospital Encounter Department of Leta Sanchez M.D. Pain Chest; Radiology in [address] Abdominal Pain ; [place], [place] [address] Diarrhea; [place], [place] Coronary Artery Disease [address] [address] [place] [phone] [address] (Fax) [phone] Social History Tobacco Use Types Packs/Day Years [...] week 04/16/2019 How often do you attend latter day or adventism services? 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 0 04/16/2019 tablet atorvastatin Take 1 tablet (80 mg 90 tablet 3 05/20/2017 (for_LIPITOR) 80 mg total) by mouth at tablet bedtime. From [place]'s discharge on 03/25. clopidogrel (for_PLAVIX) Take 1 tablet (75 mg 90 tablet 3 0 05/20/2017 05/28/2018 75 mg tablet total) by mouth daily. For 1 year until 03/24/2018. isosorbide mononitrate Take 1 tablet (30 mg 90 tablet 3 03/09/2018 (IMDUR) 30 mg 24 hr total) by mouth every tablet morning. lisinopril Take 1 tablet (20 mg 90 tablet 3 05/20/201705/06 (for_PRINIVIL,ZESTRIL) total) by mouth every 20 mg tablet morning. metoprolol succinate Take 1 tablet [...] 2 additional doses if chest pain continues. documented as of this encounter Plan of Treatment Upcoming Encounters Date Type Specialty Care Team Description 04/12/2022 Office Visit Cardiovascular Disease Simone Gooden AP RN, C.N.P. [address] [place], [place] [phone] (Wo rk) documented as of this encounter Procedures Procedure Name Priority Date/Time Associated Comments Diagnosis DX CHEST AP OR PA RAD - Routine 03/02/2018 12:13 Pain Chest Results for this AND LATERAL 2 (most inpatients PM CDT Abdominal Pain procedure are in VIEWS and all Diarrhea the results outpatients) Coronary Artery section. Disease documented in this encounter Results DX Chest AP or PA and Lateral 2 Views (03/02/2018 12:13 PM CDT) Anatomical Region Laterality Modality Chest, Thoracic RST LOS, Thoracic ARZ LOS, Thoracic N/A Digital Radiography FLA LOS Specimen (Source) Anatomical Collection Method Collection Time Re ceived Time Location / / Volume Laterality 03/02/2018 12:18 PM CDT Impressions 03/02/2018 12:25 PM CDT IMPRESSION: No evidence of acute cardiopulmonary abnormality. No focal pulmonary consolidation or pleural effusion. Samara l heart size. Thoracic spine degeneration. Comparison July 22, 2017. Bilateral shoulder arthroplasties. Narrative 03/02/2018 12:25 PM CDT EXAM: DX CHEST AP OR PA AND LATERAL 2 VIEWS Procedure Note Simone Guzman M.D. - 03/02/2018Formattin g of this note might be different from the original. EXAM: DX CHEST AP OR PA AND LATERAL 2 EWS IMPRESSION: No evidence of acute cardiop ulmonary abnormality. No focal pulmonary consolidation or pleural effusion. Samara l heart size. Thoracic spine degeneration. Comparison July 22, 2017. Bilateral shoulder arthroplasties. Leta Sanchez M.D. [facility] AMY PLUNKETT documented in this encounter Visit Diagnoses Diagnosis Pain Chest Abdominal Pain Diarrhea Coronary Artery Disease (Unspecified) documented in this encounter Care Teams Toy Trains And Accessories Salesperson Relationship Specialty Start Date End Date Leta Sanchez M.D. PCP - General 10/17/16 10/18/19 documented as of this encounter
--- OUTSIDE RECORDS SUMMARY | 2022-03-29 07:49 | XMS_ITS | Encounter Summary ---
:1950 Author Organization [facility] Address [address] [place] [address] Care Team Providers Name Role Phone Leta Sanchez M.D. Primary Care Provider Encounter Details Date Type Department Care Team Description 10/09/2017 Hospital Encounter Department of Radiology Leta Sanchez M.D. Pain Leg in [facility] trav [address], [address] [place] [address] [place], [place] [phone] Social History Tobacco Use Types Packs/Day Years Used Date Smoking Tobacco: Heavy Cigarettes Last attempted to quit: Smoker 03/27/2017 Smokeless Tobacco: Never Alcohol Habits Answer Date Recorded How often [...] How often do you attend mormon or anabaptist services? 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 From [place]'s discharge on 03/25. clopidogrel (for_PLAVIX) Take 1 tablet (75 mg 90 tablet 3 0 05/20/2017 05/28/2018 75 mg tablet total) by mouth daily. For 1 year until 03/24/2018. lisinopril Take 1 tablet (20 mg 90 [...] 2 additional doses if chest pain continues. nortriptyline Take 1 capsule (25 mg 0 03/31/2017 10/13/2017 (for_PAMELOR) 25 mg total) by mouth at capsule bedtime. predniSONE Take 1 tablet by 0 06/10/2016 10/14/19 18 (for_DELTASONE) 5 mg mouth every morning. tablet psyllium, with Take 1 Dose by mouth 90 Dose 11 03/21/2017 01/07/2018 aspartame, 3 (three) times a (for_METAMUCIL) 3.4 day. gram/5.8 gram oral powder documented as of this encounter Progress Notes Leta Sanchez M.D. - 10/09/2017 11:59 PM CDT Please call. Right ankle x-ray show age-indeterminate, probable chronic appearing small avulsion fracture fragment near the tip of the right medial malleolus. Right tibia fibula x-ray show no acute finding. Juany Hebert L.PBhaveshN. - 10/09/2017 11:59 PM CDT Patient notified of results. Per Dr. Sanchez patient will follow with Ortho. Patient transferred to scheduling. documented in this encounter Plan of Treatment Upcoming Encounters Date Type Specialty Care Team Description 04/12/2022 Office Visit Cardiovascular Disease Simone Gooden AP RN, C.N.P. [address] [phone] (Wo rk) documented as of this encounter Procedures Procedure Name Priority Date/Time Associated Comments Diagnosis DX ANKLE RIGHT 3+ RAD - Routine 10/09/2017 5:12 Pain Leg Result s for this VIEWS (most inpatients PM CDT procedure a re in and all the results outpatients) section. DX TIBIA FIBULA RAD - Routine 10/09/2017 5:12 Pain Leg Results for this RIGHT 2 VIEWS (most inpatients PM CDT procedure are in and all the results outpatients) section. documented in this encounter Results DX Ankle Right 3+ Views (10/09/2017 5:12 PM CDT) Anatomical Region Laterality Modality Lower Extremity, Ankle, Musculoskeletal RST LOS Right Computed Radiography Specimen (Source) Anatomical Collection Method Collection Time Re ceived Time Location / / Volume Laterality 10/10/2017 6:32 AM CDT Impressions 10/10/2017 6:33 AM CDT IMPRESSION: Age-indeterminate, probable chronic appearing small avulsion fracture fragment near the tip of the ri ght medial malleolus. Narrative 10/10/2017 6:33 AM CDT EXAM: DX ANKLE RIGHT 3+ VIEWS COMPARISON: None FINDINGS: Age-indeterminate, probable ch ronic appearing small avulsion fracture fragment near the tip of the right media l malleolus. Normal mineralization. Normal appearance of the ankle joint mortise. Medium/large right calcaneal and Zenobia s heel spurs. If pain persists consider follow-up imag ing. Procedure Note Gil Louise M.D. - 10/10/2017Forma tting of this note might be different from the original. EXAM: DX ANKLE RIGHT 3+ VIEWS COMPARISON: None FINDINGS: Age-indeterminate, probable ch ronic appearing small avulsion fracture fragment near the tip of the right media l malleolus. Normal mineralization. Normal appearance of the ankle joint mortise. Medium/large right calcaneal and Zenobia s heel spurs. If pain persists consider follow-up imag ing. IMPRESSION: Age-indeterminate, probable chronic appearing small avulsion fracture fragment near the tip of the ri ght medial malleolus. Leta Sanchez M.D. I[facility] DI[facility]NO[facility] IMAG[facility] PROCE DIMITRIOS DX Tibia Fibula Right 2 Views (10/09/2017 5:12 PM CDT) Anatomical Region Laterality Modality Lower Extremity, TibFib, Musculoskeletal RST LOS Right Computed Radiography Specimen (Source) Anatomical Collection Method Collection Time Re ceived Time Location / / Volume Laterality 10/10/2017 6:37 AM CDT Impressions 10/10/2017 6:38 AM CDT IMPRESSION: No acute findings. Narrative 10/10/2017 6:38 AM CDT EXAM: DX TIBIA FIBULA RIGHT 2 VIEWS COMPARISON: March 27, 2010. FINDINGS: Chondrocalcinosis of the right medial, lateral knee joint compartments. Moderately prominent degen erative changes of the right knee with tricompartmental joint space narrowing. Evgvh-kmiofy-xobrw right knee joint effu yareli/synovitis. Medium-sized right calcaneal and Zenobia s heel spurs. No appreciable acute osseous injury of t he right tibia or fibula. If pain persists consider follow-up imag ing. Procedure Note Gil Louise M.D. - 10/10/2017Forma tting of this note might be different from the original. EXAM: DX TIBIA FIBULA RIGHT 2 VIEWS COMPARISON: March 27, 2010. FINDINGS: Chondrocalcinosis of the right medial, lateral knee joint compartments. Moderately prominent degen erative changes of the right knee with tricompartmental joint space narrowing. Hykup-lsrpbo-kmtny right knee joint effu yareli/synovitis. Medium-sized right calcaneal and Zenobia s heel spurs. No appreciable acute osseous injury of t he right tibia or fibula. If pain persists consider follow-up imag ing. IMPRESSION: No acute findings. Leta Sanchez M.D. IMG DIAGNOSTIC IMAGING AMY PLUNKETT documented in this encounter Visit Diagnoses Diagnosis Pain Leg documented in this encounter Additional Health Concerns Assessment Noted Time PHQ-9 Depression Total Score: 5 07/23/2017 9:28 AM CDT documented as of this encounter Care Teams [employer] [address] Relationship Specialty Start Date End Date Leta Sanchez M.D. PCP - General 10/17/16 10/18/19 documented as of this encounter
--- OUTSIDE RECORDS SUMMARY | 2022-03-29 07:49 | XMS_ITS | Encounter Summary ---
:1950 Author Organization [facility] Address [address] [place] [address] Care Team Providers Name Role Phone Leta Sanchez M.D. Primary Care Provider Encounter Details Date Type Department Care Team Description 10/10/2017 Clinical Communication Department of Gareth Sanchez M.D. [facility], Medicine in [address] [address] [address] [place] [address] Social History Tobacco Use Types [...] How often do you attend mu-ism or holiness services? 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 Please refer to result note dated 10/09/2017. Telephone Encounter - Anabella Phillips - 10/10/2017 12:42 PM CDT Patient is calling for the results of his x-rays - please call him back at [phone] documented in this encounter Plan of Treatment Upcoming Encounters Date Type Specialty Care Team Description 04/12/2022 Office Visit Cardiovascular Disease Simone Gooden AP RN, C.N.P. [address] [phone] (Wo rk) documented as of this encounter Visit Diagnoses Not on filedocumented in this encounter Additional Health Concerns Assessment Noted Time PHQ-9 Depression Total Score: 5 07/23/2017 9:28 AM CDT documented as of this encounter Care Teams Scouring Train Operator Chief Relationship Specialty Start Date End Date Leta Sanchez M.D. PCP - General 10/17/16 10/18/19 documented as of this encounter
--- OUTSIDE RECORDS SUMMARY | 2022-03-29 07:49 | XMS_ITS | Encounter Summary ---
:1950 Author Organization [facility] Address [address] [place] [address] Care Team Providers Name Role Phone Leta Sanchez M.D. Primary Care Provider Reason for Visit Reason Comments Pre-op Exam Nodule removed from ear. Outpatient (Routine) - Closed Specialty Diagnoses / Procedures Referred By Contact Refer red To Contact Family Medicine Diagnoses Lesion Skin Ear [facility] Kathryn Alex, [facility] [address] [phone] Referral ID Status Reason Start Date Expiration Date Visits Requ ested Visits Authorized [id number] Closed 12/15/2017 12/15/2018 1 1 Encounter Details Date Type Department Care Team Description 12/26/2017 Office Visit Department of Internal Andrez Truong erumen Impacted Bilateral (Primary Dx); Medicine in [place] . Lesion Skin Ear; [place] [address] [place] [address] Preoperative Exam [address] [place] [phone] Social History Tobacco Use Types Packs/Day Years Used Date Smoking Tobacco: Every Day Cigarettes 0.2 L ast attempted to quit: 03/27/2017 Smokeless Tobacco: Never Comments: 4 cigarettes [...] How often do you attend mosque or synagogue services? 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 The patient noticed a skin lesion on his left ear 3 months ago. He states that it first started likea scab and than started growing. 1 week ago he tried to remove it on his own with a razor but he ended having bleeding pain and stopped. The growth almost tripled in size in the three months. He denieda history of melanoma , squamous cell or basal carcinoma of the skin. Oncologic history 67-year old male with a history of [...] this area was cauterized. Biopsies were benign. Otherwise, the patient works at [employer] , he is very active. He exercises 5 times per week and liftsweighs and walks 6 miles per day. He denies a history of PE, DVT, arrythmias. No chest pain or shortness of breath. No history of anesthesia reaction , no history of post op bleeding. The patient has a history of NSTEMI on 07/2017 (([facility] 07/2017 80% Dx2, otherwise, <70% stenosis; medical Rx) )and 03/2017 S/P (s/p RENETTA to the RCA, LCX, mid and pLAD). He is on plavix . And had cardiology follow up with Dr Ruiz without issues. PMH 1. Coronary artery disease. - NSTEMI 07/2017 ([facility] 07/2017 80% Dx2, otherwise, <70% stenosis; medical Rx) and 03/2017 (s/p RENETTA to the RCA, LCX, mid and pLAD). 2. Hypertension. 3. Hyperlipidemia. 4. Influenza A on 07/2017. 5. Chronic bronchitis. 6. Tobacco use. - planned smoking cessation for November 05 2017. 7. Post prandial epigastric pain, resolved since his coronary revascularization March 2017 (as per patient). 8. Depression/Anxiety. 9. Obesity, BMI 32. 10. Ectopy. 11. Polymyalgia rheumatica, as per chart 03/2017. 12. Bladder cancer, diagnosed 2010 with to recurrences in 2014 and 2015. Past Surgical History: Procedure Laterality Date ??? [...] Liver cancer Father ??? Lung cancer Sister Social History Social History ??? Marital status: Spouse name: N/A ??? Number of children: N/A ??? Years of education: N/A Occupational History ??? Not on file. Social History Main Topics ??? Smoking status: Current Every Day Smoker Packs/day: 0.20 Types: Cigarettes Last attempt to quit: 03/27/2017 ??? Smokeless tobacco: Never Used Comment: 4 cigarettes per day ??? Alcohol use No ??? Drug use: Unknown ??? Sexual activity: Defer Other Topics Concern ??? Not on file Social History Narrative Caffeine: 2 cups coffee daily Social History Social History Narrative Caffeine: 2 cups coffee daily SYSTEMS REVIEW A comprehensive review of systems is negative except for those items stated within the content of the HPI. Blood pressure 138/66, pulse (!) 58, temperature 36.7 ??C, weight 93.9 kg. PHYSICAL EXAMINATION GENERAL: Well-nourished, well-developed 67 y.o. year old in no apparent distress. Awake, alert, age appropriate. HEENT: Head is normocephalic, atraumatic. Bilateral pupils are equal, reactive to light, and accommodation. EOMs intact. Conjunctivae and sclera are clear. Bilateral external ears nontender to manipulation with bilat cerumen. Hearing is grossly normal. Nares patent with normal mucosa. Oropharynx pink and moist without exudate or erythema. 1 cm *2 cm growth on patient Left ear with vascularity NECK: Neck is supple. Thyroid is normal [...] upper and lower extremities with full ROM. LYLMPHATIC: No cervical, submandibular, supraclavicular adenopathy. NEUROLOGIC: Alert and oriented x 3. CN II-XII grossly intact. Bilateral brachioradialis, patellar, and Achilles tendon DTRs 2+/4+ bilaterally. Strength and tone normal in upper and lower extremities. Reflexes are symmetric DIAGNOSTICS: Lab Results Component Value Date WBC 8.0 09/08/2017 HGB 12.9 (L) 09/08/2017 HCT 39.4 09/08/2017 MCV 83.3 09/08/2017 PLT 362 (H) 09/08/2017 Lab Results Component Value Date NA 143 09/08/2017 K 4.4 09/08/2017 CL 101 09/08/2017 HCO3 30 (H) 09/08/2017 CREATININE 0.88 09/08/2017 EGFR 88 09/08/2017 BUN 20 09/08/2017 ANIONGAP 12 09/08/2017 GLUCOSE 88 09/08/2017 CALCIUM 9.8 09/08/2017 EKG 12/26/2017: IMPRESSION/REPORT/PLAN Preoperative Exam 1. Lesion Skin Ear suspicious For Squamous cell The patient works at [employer] , he is very active. He exercises 5 times per week and lifts weighs andwalks 6 miles per day. He denies a history of PE, DVT, arrythmias. No chest pain or shortness of breath. No history of anesthesia reaction , no history of post op bleeding. The patient has a history of NSTEMI on 07/2017 (([facility] 07/2017 80% Dx2, otherwise, <70% stenosis; medical Rx) )and 03/2017 S/P (s/p RENETTA to the RCA, LCX, mid and pLAD). He is on plavix . And had cardiology follow up with Dr Ruiz without issues. He had an ECG on 12/26/17 which looks unchanged and stable with sinus bradycardia and RBBB. His CBC and BMP was updated 09/08/17 and was stable. Patient hasn't completed a year with his stent and therefore should continue with plavix , especially that he is undergoing a low risk surgery. He can continue taking his medications as usual unless otherwise instructed by dermatology . Cerumen Impacted Bilateral - Ear cerumen removal Seven Salazar presented today for preoperative examination. Based on his history and examination they are medically optimized for surgical intervention from the perspectiveof internal medicine. No further workup is required at this time. Electronically signed by: Faiza Truong D.O. 12/26/17 4:13 PM documented in this encounter Plan of Treatment Upcoming Encounters Date Type Specialty Care Team Description 04/12/2022 Office Visit Cardiovascular Disease Simone Gooden AP RN, C.N.P. [address] [phone] (Wo rk) Scheduled Orders Name Type Priority Associated Diagnoses Order S chedule Ear cerumen removal Procedures Routine Cerumen Impacted Orde red: 12/26/2017 Bilateral documented as of this encounter Procedures Procedure Name Priority Date/Time Associated Diagnosis Comme nts CBC WITH Routine 12/26/2017 5:10 PM Preoperative Exam Resu lts for this DIFFERENTIAL, B CDT procedure ar e in the results section. documented in this encounter Results (ABNORMAL) CBC with Differential, Blood (12/26/2017 5:10 PM CDT) [facility] Time Signature Hemoglobin 14.5 13.2 - 12/26/2017 [facility] 16.6 g/dL 5:23 PM CDT [facility] Hematocrit 43.4 38.3 - 12/26/2017 [facility] 48.6 % 5:23 PM CDT [facility] Erythrocytes 5.06 4.35 - 12/26/2017 [facility] 5.65 5:23 PM CDT [facility] MCV 85.8 78.2 - 12/26/2017 [facility] 97.9 fL 5:23 PM CDT [facility] RBC Distrib Width 14.7 (H) 11.8 - 12/26/2017 [facility] 14.5 % 5:23 PM CDT [facility] Platelet Count 329 (H) 135 - 317 12/26/2017 [facility] x10(9)/L 5:23 PM CDT [facility] Leukocytes 9.0 3.4 - 9.6 12/26/2017 [facility] x10(9)/L 5:23 PM CDT [facility] Neutrophils 5.49 1.56 - 12/26/2017 [facility] 6.45 5:23 PM CDT [facility] Lymphocytes 2.04 0.95 - 12/26/2017 [facility] 3.07 5:23 PM CDT [facility] Monocytes 0.96 (H) 0.26 - 12/26/2017 [facility] 0.81 5:23 PM CDT [facility] Eosinophils 0.41 0.03 - 12/26/2017 [facility] 0.48 5:23 PM CDT [facility] Basophils 0.06 0.01 - 12/26/2017 [facility] 0.08 5:23 PM CDT [facility] Specimen Anatomical Collection Method Collection Time Receive d Time (Source) Location / / Volume Laterality Blood (Blood, 12/26/2017 5:10 PM 12/27/19 18 5:13 Venous) CDT PM CDT Faiza Truong D.O. LAB BLOOD ADD-ON Performing Organization Address City/State/ZIP Code Phon e Number [facility] [address] [place] [address] LAB documented in this encounter Visit Diagnoses Diagnosis Cerumen Impacted Bilateral - Primary Lesion Skin Ear Preoperative Exam documented in this encounter Additional Health Concerns Assessment Noted Time PHQ-9 Depression Total Score: 6 12/26/2017 3:56 PM CDT documented as of this encounter Care Teams Toll Collector Relationship Specialty Start Date End Date Leta Sanchez M.D. PCP - General 10/17/16 10/18/19 documented as of this encounter
--- OUTSIDE RECORDS SUMMARY | 2022-03-29 07:49 | XMS_ITS | Encounter Summary ---
:1950 Author Organization [facility] Address [address] [place] [address] Care Team Providers Name Role Phone Leta Sanchez M.D. Primary Care Provider Reason for Visit Reason Onset Date Comments SURGERY DATE 12/16/2017 Encounter Details Date Type Department Care Team Description 12/16/2017 Clinical Communication Department of Jessica Hughes, SURGERY DATE Medicine, Candida Hua [facility], [facility] [address] [place], [place] [address] [address] [place], [place] [phone] (Work) [phone] Social History Tobacco Use Types Packs/Day Years [...] How often do you attend anabaptism or episcopal services? 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 - 12/16/2017 12:46 PM CDT Noted Telephone Encounter - Tanika Frazier - 12/16/2017 12:33 PM CDT PHYSICIAN: DR ELLIS REASON FOR CALL: PREOP 12-26-17 CECILIA S: SURG DATE: 12-31-[address] EAR N[address] ELLIS B: REQUEST FOR SURG: A: ANESTHESIA: GENERAL R: HOSP WILL CALL WITH TIME documented in this encounter Plan of Treatment Upcoming Encounters Date Type Specialty Care Team Description 04/12/2022 Office Visit Cardiovascular Disease Simone Gooden AP RN, C.N.P. [address] [phone] (Wo rk) documented as of this encounter Visit Diagnoses Not on filedocumented in this encounter Additional Health Concerns Assessment Noted Time PHQ-9 Depression Total Score: 5 07/23/2017 9:28 AM CDT documented as of this encounter Care Teams Financial Compliance Officer Relationship Specialty Start Date End Date Leta Sanchez M.D. PCP - General 10/17/16 10/18/19 documented as of this encounter
--- OUTSIDE RECORDS SUMMARY | 2022-03-29 07:49 | XMS_ITS | Encounter Summary ---
:[address] [facility] Address [address] [place] [address] Care Team Providers Name Role Phone Leta Sanchez M.D. Primary Care Provider Reason for Referral Outpatient (Routine) - Closed Specialty Diagnoses / Procedures Referred By Contact Refer red To Contact Orthopedic Surgery Diagnoses Pain Leg Let[facility] Sanchez M.D. [facility] [address], [facility] [address] [place] [address] Referral ID Status Reason Start Date Expiration Date Visits Requ ested Visits Authorized [id number] Closed 10/10/2017 10/10/2018 1 1 Scheduling Instructions Schedule before ortho consult utpatient (Routine) - Closed Specialty Diagnoses / Procedures Referred By Contact Refer red To Contact Community Internal Diagnoses [facility] PHYS Leta Sanchez M.D. [facility] [address], [facility] [address] [place] [address] Referral ID Status Reason Start Date Expiration Date Visits Requ ested Visits Authorized [id number] Closed 10/09/2017 10/09/2018 1 1 Scheduling Instructions Medicare annual wellness visit, review m edical problems and renew medication Reason for Visit Reason Comments Ankle Pain ankle pain and swelling for the last three weeks following a fall Encounter Details Date Type Department Care Team Description 10/09/2017 Office Visit Department of Leta Sanchez M.D . Pain Leg (Primary Dx); Community Internal [address], Shefali cannon; Medicine in [place] [address] Hypertensive Heart And Chronic Kidney Di sease Without Heart Failure And With Stage 2 (Mild) Chronic Kidney Disease; Abraham Thibodeaux [place], [place] Coronary Artery Disease; [address] [id number] Cancer Bladder Personal History; JAYNA THIBODEAUX High Ris k Medication [id number] Social History Tobacco Use Types Packs/Day [...] How often do you attend muslim or taoism services? 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 - 10/09/2017 4:15 PM CDT SUBJECTIVE CHIEF COMPLAINT/REASON FOR VISIT Right ankle pain. HISTORY OF PRESENT ILLNESS Seven Salazar is a 67 y.o. male who presents to the clinic today for right ankle pain. He has right ankle pain and swelling for the last three weeks after he fell. He was trying to push [employer] plant with his foot, which turned out to be heavier than he thought. He turned, fell, and hit his right lower leg on landscape stones. He has no problems with walking. He has pain when turning and when laying in bed. Initially, he thought it was a high ankle sprain. Overall, his pain is improving. Additionally, he had blood tests on 09/08/2017. Results were remarkable for hemoglobin 12.9, platelets 362, normal electrolytes, liver enzymes, CK, TSH, and PSA. He was due for physical exam in September buthe had to cancel due to a . He has anemia, which is stable. He denies any bleeding symptoms or chest pain. There are no additional questions, concerns, or [...] mg total) by mouth at bedtime. From [place]'s discharge on 03/25. 90 tablet 3 ??? clopidogrel (for_PLAVIX) 75 mg tablet Take 1 tablet (75 mg total) by mouth daily. For 1 year until 03/24/2018. 90 tablet 3 ??? lisinopril (for_PRINIVIL,ZESTRIL) 20 mg [...] additional doses if chest pain continues. ??? nortriptyline (for_PAMELOR) 25 mg capsule Take 1 capsule (25 mg total) by mouth at bedtime. ??? predniSONE (for_DELTASONE) 5 mg tablet Take 1 tablet by mouth every morning. ??? psyllium, with aspartame, (for_METAMUCIL) 3.4 gram/5.8 gram oral powder Take 1 Dose by mouth 3 (three) times a day. 90 Dose 11 No current facility-administered medications for this [...] otherwise rest of review of systems negative. PAST MEDICAL/SURGICAL HISTORY Past Medical History: Diagnosis Date ??? Abuse Tobacco Smoking 07/03/2015 ??? Anemia 03/31/2017 ??? Arthralgia 07/03/2015 ??? Arthritis Shoulder 07/03/2015 ??? Bronchitis Chronic (HCC) 07/03/2015 ??? Coronary Artery Disease 06/12/2017 ??? 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 Cyst Renal 02/05/2016 ??? [...] Of Bladder Lateral Wall (HCC) 03/18/2010 ??? 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 Migraine Headache 07/01/2011 ??? Myalgia 04/17/2015 ??? Non-ST Elevation Myocardial Infarction (HCC) 03/31/2017 ??? Obesity NOS 02/15/2010 ??? Pain Back 07/03/2015 ??? Polymyalgia Rheumatica (HCC) 04/17/2015 ??? Presbyopia 10/07/2011 ??? Reflux Esophageal 12/24/2011 ??? Seizure Partial Complex (HCC) 03/23/2004 ??? Stricture Urethra 02/05/2016 Past Surgical History: Procedure Laterality Date ??? [...] Social History Main Topics ??? Smoking status: Heavy Tobacco Smoker Types: Cigarettes Last attempt to quit: 03/27/2017 ??? Smokeless tobacco: Never Used ??? Alcohol use None ??? Drug use: Unknown ??? Sexual activity: Not Asked Other Topics Concern ??? None Social History Narrative ??? None FAMILY HISTORY Family History Problem Relation Age of Onset ??? Hypertension Mother ??? Cataracts Mother ??? Glaucoma Mother ??? Hypertension Brother ??? Asthma Brother ??? Coronary artery disease Brother ??? Heart attack Brother ??? Hearing loss Father ??? Parkinsons disease Father ??? Pancreatic cancer Father ??? Liver cancer Father ??? Lung cancer Sister OBJECTIVE VITAL SIGNS Vitals: 10/09/17 1554 BP: (!) 137/51 Patient Position: Sitting Pulse: 80 Resp: 16 Weight: 95.7 kg PHYSICAL EXAMINATION GENERAL: Patient is sitting. No distress. Able to talk without interruption. SKIN: He has swelling and redness on anterior aspect of right distal lower extremity. No laceration. PERIPHERAL VESSELS: Good pedal pulses. JOINTS: No joint swelling or deformity. No decreased range of motion. EXTREMITIES: No clubbing, cyanosis, edema, infection or calf tenderness. GAIT: No abnormal gait. MENTAL: Alert and oriented x 3. Normal mood and affect. NEURO: Grossly nonfocal. DIAGNOSTICS LABORATORY: 09/08/2017 07:42 Hemoglobin 12.9 (L) Hematocrit 39.4 Erythrocytes 4.73 MCV 83.3 RBC Distrib Width 16.4 (H) Platelet Count 362 (H) Leukocytes 8.0 Sodium, S 143 Potassium, S 4.4 Chloride, S 101 Bicarbonate, S 30 (H) Anion Gap 12 Bld Urea Nitrog(BUN), S 20 Creatinine, S 0.88 eGFR-Non Black 88 eGFR-Black >90 Calcium, Total 9.8 Glucose, S 88 Bilirubin, Total, S 0.2 Bilirubin, Direct, S <0.2 Alanine Aminotransferase (ALT), S 10 Aspartate Aminotransferase (AST), S 19 Alkaline Phosphatase, S 108 Protein, Total, S 6.9 Albumin, S 4.0 Creatine Kinase (CK), S 130 TSH, Sensitive, S 1.9 Prostate-Specific Ag Screen, S 1.5 ASSESSMENT / PLAN #1 Pain Leg Right Distal It is gradually improving. We will check x-rays of the right ankle, tibia, and fibula today and follow these results. He was advised to rest, ice, and elevate his ankle. Patient can take Tylenol as needed, not to exceed Acetaminophen 4000 mg in 24 hours. He should contact me if there is no improvementor worsening of symptoms. #2 Anemia It is stable. There was no evidence of bleeding. Need to watch for bleeding. We will monitor CBC at subsequent visit. 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 Patient is stable from a cardiac standpoint. Need to continue sodium controlled diet and current medications. Monitor blood pressure regularly at home. Blood pressure goal is less than 140/90 mmHg. Need to continue cardiovascular risk factors modification. #4 Coronary Artery Disease He is stable from a cardiac standpoint. There is no angina. Patient does not need to take Nitroglycerin. Need to continue current medications and cardiovascular risk factor modification. He will followwith Dr. Ruiz, Leadlighter, on 10/13/2017. #5 Cancer Bladder Personal History He will follow with Dr. Camejo, Urologist, on 11/24/2017 for cystoscopy. He needs to quit smoking tobacco. #6 Discussed Test Results I reviewed test results from 09/08/2017. All questions were answered. #7 Today Studies Patient had following studies done today: Right tibia/fibula x-ray and Right ankle x-ray. Patient will be notified with results & recommendations. #8 Followup Visit Return to the clinic in 3 months for Medicare annual wellness exam, review medical problems, medication renewal, and following tests prior to appointment: ALT, AST, BMP, CBC, and CK. This document serves as a record of services personally performed by Dr. Leta Sanchez. It was created on their behalf by Juan Ramos, a trained medical sales. The creation of this record is based on the scribe's personal observations and the provider's statements to them. This document has been checked and approved by the attending provider. documented in this encounter Plan of Treatment Upcoming Encounters Date Type Specialty Care Team Description 04/12/2022 Office Visit Cardiovascular Disease Simone Gooden AP RN, C.N.P. [address] [address] [phone] (Wo [phone]) Scheduled Referrals Name Type Priority Associated Order Schedule Diagnoses Community Internal Outpatient Referral Routine Ex pected: Medicine office 01/09/2018 visit (clinic) (Approximate) , Expires: 10/09/2020 Orthopedic Surgery - Outpatient Referral Routine Pain Leg Expected: Foot/Ankle non 10/10/2017, surgical consult Expires: (clinic) 10/10/2020 documented as of this encounter Results CK (Creatine Kinase) (01/13/2018 3:16 PM CDT) P athologist Signature Creatine Kinase 101 39 - 308 01/13/2018 [facility] (CK), S U/L 9:42 PM CDT [facility] Specimen Anatomical Collection Method Collection Time Receive d Time (Source) Location / / Volume Laterality Blood (Blood, 01/13/2018 3:16 PM 01/14/20 18 9:26 Venous) CDT PM CDT Phunt Phyo M.D. LAB BLOOD ADD-ON Performing Organization Address City/State/ZIP Code Phon e Number [facility] [address] [place] [address] [facility] ALT (Alanine Aminotransferase) (01/13/2018 3:16 PM CDT) [facility] Method Time Signature Alanine 15 7 - 55 01/13/2018 [facility] Aminotransferase U/L 6:18 PM CDT [facility] (ALT), S SYSTEM- [place] LAB Specimen Anatomical Collection Method Collection Time Receive d Time (Source) Location / / Volume Laterality Blood (Blood, 01/13/2018 3:16 PM 01/14/20 18 6:04 Venous) CDT PM CDT Phunt Phyo M.D. LAB BLOOD ADD-ON Performing Organization Address City/[facility]/ZIP Code Phon e Number [facility] [place] [address] [place] [address] LAB AST (Aspartate Aminotransferase) (01/13/2018 3:16 PM CDT) [facility] Method Time Signature Aspartate 23 8 - 48 01/13/2018 [facility] Aminotransferase U/L 6:18 PM CDT [facility] (AST), S SYSTEM- [facility] Specimen Anatomical Collection Method Collection Time Receive d Time (Source) Location / / Volume Laterality Blood (Blood, 01/13/2018 3:16 PM 01/14/20 18 6:04 Venous) CDT PM CDT Phunt Phyo M.D. LAB BLOOD ADD-ON Performing Organization Address City/State/ZIP Code Phon e Number [facility] [place] [address] [place] [address] LAB Basic Metabolic Panel (01/13/2018 3:16 PM CDT) P athologist Signature Potassium, S 4.4 3.6 - 5.2 01/13/2018 [facility] mmol/L 6:18 PM CDT [facility] Sodium, S 140 135 - 145 01/13/2018 [facility] mmol/L 6:18 PM CDT [facility] Chloride, S 103 98 - 107 01/13/2018 [facility] mmol/L 6:18 PM [facility] Bicarbonate, S 28 22 - 29 01/13/2018 [facility] mmol/L 6:18 PM T [facility] Anion Gap 9 7 - 15 01/13/2018 [facility] 6:18 PM CDT [facility] BUN (Blood Urea 21 8 - 24 01/13/2018 [facility] Nitrogen), S mg/dL 6:18 PM T [facility] Creatinine 1.03 0.74 - 01/13/2018 [facility] 1.35 mg/dL 6:18 PM [facility] eGFR-Non 74 >=60 01/13/2018 [facility] Black/ mL/min/BSA 6:18 PM [facility] Comment: ----ADDITIONAL INFORMATION---- Estimated GFR calculated using the 2009 CKD_EPI creatinine equation. eGFR-Black/ 86 >=60 mL/min/BSA 2017 6:18 PM [facility] LAB Comment: ----ADDITIONAL INFORMATION---- Estimated GFR calculated using the 2009 CKD_EPI creatinine equation. Calcium, Total, S 9.5 8.8 - 10.2 mg/dL 01/13/2018 6 :18 PM CDT [facility] Glucose, S 77 70 - 140 mg/dL 01/13/2018 6:[address] [facility] LAB Specimen Anatomical Collection Method Collection Time Receive d Time (Source) Location / / Volume Laterality Blood (Blood, 01/13/2018 3:16 PM 01/14/20 18 6:04 Venous) CDT PM CDT Leta Sanchez M.D. LAB BLOOD ADD-ON Performing Organization Address City/State/ZIP Code Phon e Number [facility] [address] [place] [address] LAB (ABNORMAL) CBC without Differential (01/13/2018 3:16 PM CDT) [facility] Method Time Signature Hemoglobin 13.8 13.2 - 01/13/2018 [facility] 16.6 g/dL 3:33 PM CDT [facility] Hematocrit 41.4 38.3 - 01/13/2018 [facility] 48.6 % 3:33 PM CDT [facility] Erythrocytes 4.80 4.35 - 01/13/2018 [facility] 5.65 3:33 PM CDT HEALTH x10(12)/L [facility] MCV 86.3 78.2 - 01/13/2018 [facility] 97.9 fL 3:33 PM CDT [facility] RBC Distrib Width 14.8 (H) 11.8 - 01/13/2018 [facility] 14.5 % 3:33 PM CDT [facility] Platelet Count 264 135 - 317 01/13/2018 [facility] x10(9)/L 3:33 PM CDT [facility] Leukocytes 8.8 3.4 - 9.6 01/13/2018 [facility] x10(9)/L 3:33 PM CDT [facility] Specimen Anatomical Collection Method Collection Time Receive d Time (Source) Location / / Volume Laterality Blood (Blood, 01/13/2018 3:16 PM 01/14/20 18 3:16 Venous) CDT PM CDT Leta Sanchez M.D. LAB BLOOD ADD-ON Performing Organization Address City/State/ZIP Code Phon e Number [facility] [address] [place], [place] [id number] [place] [address] LAB [facility] [address] [place], [place] [address] DX Ankle Right 3+ Views (10/09/2017 5:12 [...] ankle joint mortise. Medium/large right calcaneal and [place] s heel spurs. If pain persists consider [...] right knee with tricompartmental joint space narrowing. Pnwzd-[id number]-[id number] right knee joint effu yareli/synovitis. Medium-sized right calcaneal and [place] s heel spurs. No appreciable acute osseous [...] right knee with tricompartmental joint space narrowing. Vezif-etupzw-lcnhy right knee joint effu yareli/synovitis. Medium-sized right calcaneal and [place] s heel spurs. No appreciable acute osseous injury of t he right tibia or fibula. If pain persists consider follow-up imag ing. IMPRESSION: No acute findings. Leta Sanchez M.D. 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 PCP - General 10/17/16 10/18/19 documented as of this encounter
--- OUTSIDE RECORDS SUMMARY | 2022-03-29 07:49 | XMS_ITS | Encounter Summary ---
:1950 Author Organization [facility] Address [address] [place] [address] Care Team Providers Name Role Phone Leta Sanchez M.D. Primary Care Provider Reason for Referral Outpatient (Routine) - Closed Specialty Diagnoses / Procedures Referred By Contact Refer red To Contact Diagnoses Coronary Artery Disease (Unspecified) Salomón Ruiz M.D. [facility] Procedures ECG 12 Lead LA EKG 12 LEAD TRACE ONLY LA EKG I&R ONLY [address] [place] [phone] Referral ID Status Reason Start Date Expiration Date Visits Requ ested Visits Authorized [id number] Closed 10/13/2017 10/13/2018 1 1 Reason for Visit Reason Comments Coronary Artery Disease Encounter Details Date Type Department Care Team Description 10/13/2017 Office Visit Department of Salomón Ruiz Coronary Ar precious Disease (Primary Dx); Cardiovascular Diseases Javid Galeano Hypertensive Heart And Chronic Kidney Di sease Without Heart Failure And With Stage 2 (Mild) Chronic Kidney Disease; in [place] [facility]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 - 10/13/2017 9:45 AM CDT ASSESSMENT / PLAN 1. Coronary artery disease. [...] with to recurrences in 2014 and 2015. Coronary artery disease. Status post revascularization percutaneously March 2017. Non ST-elevation myocardial infarction July 2017, likely type 2 secondary to influenza A. No significant obstructive coronary artery disease, continue medical management and dual antiplatelet therapy (for at least 1 year, uninterruptedly), particularly since the patient is asymptomatic. Focus on risk modification, see below. No dyspnea so, no echocardiogram indicated at this time. Hypertension. Well controlled by his internal medicine doctor. No changes needed. Hyperlipidemia. Excellent lipids on high-intensity statin therapy. Continue management with his internal medicine doctor. Tobacco use disorder. Smoking cessation strongly encouraged. The patient plans on quitting November 05, 2017. This was strongly emphasized as that seems to be the 1 residual risk factor that is still to be modified. Cardiac ectopy observed on exam. Unsure if atrial or ventricular. An electrocardiogram will be performed to documented. He did have atrial ectopy on electrocardiogram done July 2017. If atrial ectopy,no additional changes or workup is recommended. However, in case of frequent ventricular ectopy the p atient could be at increased risk of PVC induced cardiomyopathy. If that is the case Holter and echocardiogram may be indicated. Follow up with Cardiology in 1 year or sooner if needed. Continue regular follow-up with his primarycare provider. The patient expressed understanding and agreement with the plan. CARDIOLOGY CONSULTATION Location: [facility] Referring Provider: Dr. Sanchez. CHIEF COMPLAINT/REASON FOR CONSULT Coronary Artery Disease HISTORY OF PRESENT ILLNESS Mr. Seven Salazar is a very pleasant 67 y.o. male who presents to [facility] for presenting to establish care post hospital discharge. His primary care provider is Leta Sanchez M.D.. Presenting unaccompanied by family. The patient presents today to establish care after admission to [facility] for possible unstable angina/non ST elevation myocardial infarction July 2017. He does not recall details of his admission very well. He states he was having diarrhea and GI problems while standing up talking to friends developed lightheadedness, diaphoresis and loss of consciousness. He was taken to the hospital and then transferred to [facility]. We reviewed admission records including his coronary angiography. He was managed medically at the time. He has not had any chest pain, shortness of breath, lightheadedness, palpitations or loss of consciousness since discharge. He is compliant with medication without side effects reported. No bleeding abnormalities on dual antiplatelet therapy. He smoking but plans on quitting November 05, 2017. The patient did have a recent the trauma to the right leg without associated loss ofconsciousness and has a fracture on the right. He will be seen orthopedics in the near future. Not cu rrently on prednisone. Cardiovascular Risk Factors: 1. Smoking status: currently smokes 0.5 packs per day 2. Type II Diabetes Mellitus: no. No components found for: HEMOGLOBIN A1C 3. Hypertension: yes 4. Dyslipidemia: yes. No components found for: LIPIDS, TOTAL, SERUM 5. Family history of early Coronary Artery Disease in a first degree relative (Male less than 55 years of age; Female less than 65 years of age): no 6. Obesity and/or Metabolic Syndrome: yes 7. Sedentary lifestyle: no 8. Menopausal status: N/A Current Outpatient Medications Medication Sig ??? albuterol sulfate 90 mcg/actuation aerosol powdr breath activated Inhale 2 puffs 4 (four) times a day as needed (for shortness of breath and wheezing- Use with spacer chamber.). ??? aspirin 81 mg chewable tablet Chew 81 mg daily. ??? atorvastatin (for_LIPITOR) 80 mg tablet Take 1 tablet (80 mg total) by mouth at bedtime. From [place]'s discharge on 03/25. ??? clopidogrel (for_PLAVIX) 75 mg tablet Take 1 tablet (75 mg total) by mouth daily. For 1 year until 03/24/2018. ??? lisinopril (for_PRINIVIL,ZESTRIL) 20 mg tablet Take [...] additional doses if chest pain continues. ??? psyllium, with aspartame, (for_METAMUCIL) 3.4 gram/5.8 gram oral powder Take 1 Dose by mouth 3 (three) times a day. Allergies Allergen Reactions ??? Bupropion Hcl Other (see comments) Eliceo listed no reactions. Suicidal thoughts. ??? Citalopram Diarrhea ??? Influenza Virus Vaccine Bivalent Other (see comments) Sickness, Cerner listed no reactions. ??? Pravastatin Myalgia and Other (see comments) Social History Social History ??? Marital status: Spouse name: N/A ??? Number of children: N/A ??? Years of education: N/A Social History Main Topics ??? Smoking status: Heavy Tobacco Smoker Types: Cigarettes Last attempt to quit: 03/27/2017 ??? Smokeless tobacco: Never Used ??? Alcohol use No ??? Drug use: Unknown ??? Sexual activity: Not Asked Other Topics Concern ??? None Social History Narrative Caffeine: 2 cups coffee daily He reports exercising 5 days a week. Family History Problem Relation Age of Onset ??? Hypertension Mother ??? Cataracts Mother ??? Glaucoma Mother ??? Hypertension Brother ??? Asthma Brother ??? Coronary artery disease Brother ??? Heart attack Brother ??? Hearing loss Father ??? Parkinsons disease Father ??? Pancreatic cancer Father ??? Liver cancer Father ??? Lung cancer Sister Brother had revascularization at age 71 dying suddenly 42 days later. REVIEW OF SYSTEMS Constitutional: Negative for fatigue, fever, weight gain of more than 10 pounds, weight loss of morethan 10 pounds and generalized weakness. Skin: Negative for skin rash. Eyes: Negative for double vision and visual problems. ENT: Negative for persistent hoarse voice. Respiratory: Negative for coughing up blood, coughing up mucus (phlegm), dry cough, dyspnea and sleep disturbances due to breathing. Cardiovascular: Negative for chest pain, pressure or tightness, swelling in the legs or feet, rapid or fluttering heart beat, pain in the calf muscles when walking and shortness of breath when lying flat. Gastrointestinal: Negative for abdominal (belly) pain or cramping, blood in stool, heartburn and difficulty swallowing. Genitourinary: Negative for hematuria. Hematologic: Negative for bruises or bleeds easily. Musculoskeletal: Positive for arthralgias, pain or stiffness in the joints and muscle pain/stiffness. Neurological: Negative for seizures, loss of consciousness, light-headedness, numbness or shooting pain in hands, arms, legs, or feet, excessive daytime sleepiness, loss of balance or tendency to fall easily, headaches and weakness in arms or legs. Psychiatric/Behavioral: Negative for excessive daytime sleepiness/tiredness, snores loudly and stop breathing, choking, or gasping while asleep. The following portions of the patient's history were reviewed and updated as appropriate: allergies,current medications, family history, medical history, social history, surgical history and problem list. OBJECTIVE Vitals: 10/13/17 0943 BP: 134/56 BP Location: Left arm Patient Position: Sitting Cuff Size: Large Pulse: 90 SpO2: 97% Weight: 95.4 kg Height: 173 cm BP Readings from Last 3 Encounters: 10/13/17 134/56 10/09/17 (!) 137/51 08/21/17 (!) 167/65 Body mass index is 31.88 kg/m??. PHYSICAL EXAMINATION GENERAL: Patient is awake, alert, oriented x3. No acute distress. EYES: Pupils are equal and symmetric in size, normal extraocular movements. No pallor. No icterus. No xanthelasma. ENT: Dentures, tongue is not enlarged. No drainage from the ear canals bilaterally. NECK: No jugular venous distention. No carotid bruits. CHEST/LUNGS: No chest deformity. Normal respiratory effort. Coarse breath sounds. No adventitious sounds. CARDIOVASCULAR: Normal rate and regular rhythm with frequent ectopy. Normal S1 and S2. No murmurs, rubs, or gallops. Negative hepatojugular reflux. ABDOMEN: Soft, nontender, nondistended. No pulsatile masses. LOWER EXTREMITIES: Lower extremity warm with trace edema on the right lower extremity, tender after fracture. UPPER EXTREMITIES: 2+ Radial pulses bilaterally. Normal capillary refill. No cyanosis. NEUROLOGIC: No focal motor findings in upper or lower extremities. DIAGNOSTICS I have reviewed the patient's current laboratory, imaging, and other diagnostic studies. Pertinent laboratory studies have been reviewed and are notable for: . Hospital Outpatient Visit on 09/08/2017 Component Date Value ??? Hemoglobin 09/08/2017 12.9* ??? Hematocrit 09/08/2017 39.4 ??? Erythrocytes 09/08/2017 4.73 ??? MCV 09/08/2017 83.3 ??? RBC Distrib Width 09/08/2017 16.4* ??? Platelet Count 09/08/2017 362* ??? Leukocytes 09/08/2017 8.0 ??? Creatine Kinase (CK), S 09/08/2017 130 ??? Potassium, S 09/08/2017 4.4 ??? Sodium, S 09/08/2017 143 ??? Chloride, S 09/08/2017 101 ??? Bicarbonate, S 09/08/2017 30* ??? Anion Gap 09/08/2017 12 ??? Bld Urea Nitrog(BUN), S 09/08/2017 20 ??? Creatinine, S 09/08/2017 0.88 ??? eGFR-Non Black 09/08/2017 88 ? ? eGFR-Black 09/08/2017 >90 ??? Calcium, Total 09/08/2017 9.8 ??? Glucose, S 09/08/2017 88 ??? Bilirubin, Total, S 09/08/2017 0.2 ? ? Bilirubin, Direct, S 09/08/2017 <0.2 ??? Aspartate Aminotransfera* 09/08/2017 19 ??? Alanine Aminotransferase* 09/08/2017 10 ??? Alkaline Phosphatase, S 09/08/2017 108 ??? Albumin, S 09/08/2017 4.0 ??? Protein, Total, S 09/08/2017 6.9 ??? TSH, Sensitive, S 09/08/2017 1.9 ??? Prostate-Specific Ag Scr* 09/08/2017 1.5 Office Visit on 08/21/2017 Component Date Value ??? Report electronically si* 08/21/2017 Lucius Mancia MD ??? Case Number 08/21/2017 [id number] ??? Specimen Received 08/21/2017 A. Bladder biopsy, Left lateral wall ??? Clinical History 08/21/2017 Malignant neoplasm of lateral bladder wall. ??? Gross Desscription 08/21/2017 Value:Submitted as left lateral wall bladder biopsy are two tiny white biopsies aggregating 0.1 cm. ESB, one block. EAEpp ??? Final Diagnosis 08/21/2017 Value:Bladder, left lateral wall biopsy: Benign urothelium. There is no muscularis propria. Electrocardiogram July 24, 2017: Sinus bradycardia, 55 BPM, Pac Low voltage in limb leads Right bundle branch block Pertinent imaging studies have been reviewed and are notable for: Coronary angiography July 2017: Coronary artery dominance is right. The middle left anterior descending artery is 60% obstructed by a tubular lesion. The first diagonal branch is 60% obstructed by a discrete lesion. The second diagonal branch is 80% obstructed by a discrete lesion. The first obtuse marginal is 50% obstructed by a discrete lesion. The proximal right coronary artery is 30% obstructed by a discrete lesion. The middle right coronary artery is 30% obstructed by a discrete lesion. IMPRESSION/REPORT/PLAN See above. Note: Dictated portions of this note were done using [employer] front-end speech recognition software. documented in this encounter Plan of Treatment Upcoming Encounters Date Type Specialty Care Team Description 04/12/2022 Office Visit Cardiovascular Disease Simone Gooden AP RN, C.N.P. [address] [phone] (Wo rk) documented as of this encounter Procedures Procedure Name Priority Date/Time Associated Diagnosis Comme nts ECG Routine 10/13/2017 11:22 AM Coronary Artery Resul ts for this CDT Disease procedure are i n the results section . documented in this encounter Results ECG 12 Lead (10/13/2017 11:22 AM CDT) P athologist Signature Ventricular Rate 50 BPM MUSE ECG/Min LA Interval 180 ms MUSE QRSD Interval 108 ms MUSE QT Interval 430 ms MUSE QTC Interval 392 ms MUSE R [place] -13 degrees MUSE T Wave [place] 24 degrees MUSE Specimen Anatomical Collection Method Collection Time Receive d Time (Source) Location / / Volume Laterality 10/13/2017 11:22 10/13/2017 AM CDT 11:31 AM CDT Impressions MUSE - 10/13/2017 11:32 AM CDT Poor data quality Sinus bradycardia Premature atrial complexes Low voltage QRS Incomplete right bundle branch block When compared with ECG of 24-JUL-2017 11 :40, No significant change in data has occurr ed Narrative This result has an attachment that is no t available. Salomón Ruiz M.D. 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 PCP - General 10/17/16 10/18/19 documented as of this encounter
--- OUTSIDE RECORDS SUMMARY | 2022-03-29 07:49 | XMS_ITS | Encounter Summary ---
:1950 Author Organization [facility] Address [address] [place] [address] Care Team Providers Name Role Phone Leta Sanchez M.D. Primary Care Provider Encounter Details Date Type Department Care Team Description 01/13/2018 Hospital Encounter Department of Leta Sanchez M.D. Anemia; Laboratory Medicine [address] Hyperte nsive Heart And Chronic Kidney Disease Without Heart Failure And With Stage 2 (Mild) Chronic Kidney Disease; [place] [facility] [address] Coronary Artery Disease; [place], [place] High Risk Medication [address] [address] [place] [phone] [address] (Fax) [phone] Social History Tobacco Use Types Packs/Day Years [...] How often do you attend voodoo or restorationist services? 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 From [place]'s discharge on 03/25. clopidogrel (for_PLAVIX) Take 1 [...] Cardiovascular Disease Simone Gooden AP RN, C.N.P. [address] [place], [place] [phone] (Wo rk) documented as of this encounter Procedures Procedure Name Priority Date/Time Associated Comments Diagnosis CBC WITHOUT Routine 01/13/2018 3:16 Anemia Results for this DIFFERENTIAL, B PM CDT Hypertensive Heart proced ure are in And Chronic Kidney the resul ts Disease Without section. Heart Failure And With Stage 2 (Mild) Chronic Kidney Disease Coronary Artery Disease ALANINE AMINOTRANSFERASE Routine 01/13/2018 3:16 Hypertensive Heart Results for this (ALT), S/P PM CDT And Chronic Kidney procedure are in Disease Without the results Heart Failure And section. With Stage 2 (Mild) Chronic Kidney Disease Coronary Artery Disease High Risk Medication ASPARTATE Routine 01/13/2018 3:16 Hypertensive Heart Result s for this AMINOTRANSFERASE (AST), PM CDT And Chronic Kidne y procedure are in S/P Disease Without the results Heart Failure And section. With Stage 2 (Mild) Chronic Kidney Disease Coronary Artery Disease High Risk Medication CREATINE KINASE (CK), S Routine 01/13/2018 3:16 Hypertensive H eart Results for this PM CDT And Chronic Kidney procedure are in Disease Without the results Heart Failure And section. With Stage 2 (Mild) Chronic Kidney Disease Coronary Artery Disease High Risk Medication BASIC METABOLIC PANEL, Routine 01/13/2018 3:16 Hypertensive He art Results for this S/P PM CDT And Chronic Kidney procedure are in Disease Without the results Heart Failure And section. With Stage 2 (Mild) Chronic Kidney Disease Coronary Artery Disease documented in this encounter Results CK (Creatine Kinase) (01/13/2018 3:16 PM CDT) athologist Signature Creatine Kinase 101 39 - 308 01/13/2018 [facility] (CK), S U/L 9:42 PM CDT [facility] LAB Specimen Anatomical Collection Method Collection Time Receive d Time (Source) Location / / Volume Laterality Blood (Blood, 01/13/2018 3:16 PM 01/14/20 18 9:26 Venous) CDT PM CDT Leta Sanchez M.D. LAB BLOOD ADD-ON Performing Organization Address City/State/ZIP Code Phon e Number [facility]- [address] [place] [address] [place] LAB ALT (Alanine Aminotransferase) (01/13/2018 3:16 PM CDT) [facility] Method Time Signature Alanine 15 7 - 55 01/13/2018 [facility] Aminotransferase U/L 6:18 PM CDT [facility] (ALT), S [facility]- [place] LAB Specimen Anatomical Collection Method Collection Time Receive d Time (Source) Location / / Volume Laterality Blood (Blood, 01/13/2018 3:16 PM 01/14/20 18 6:04 Venous) CDT PM CDT Leta Sanchez M.D. LAB BLOOD ADD-ON Performing Organization Address City/State/ZIP Code Phon e Number [facility] [place] [address] [place] [address] LAB AST (Aspartate Aminotransferase) (01/13/2018 3:16 PM CDT) Patholo gist Method Time Signature Aspartate 23 8 - 48 01/13/2018 [facility] Aminotransferase U/L 6:18 PM CDT [facility] (AST), [facility]- [place] LAB Specimen Anatomical Collection Method Collection Time Receive d Time (Source) Location / / Volume Laterality Blood (Blood, 01/13/2018 3:16 PM 01/14/20 18 6:04 Venous) CDT PM CDT Leta Sanchez M.D. LAB BLOOD ADD-ON Performing Organization Address City/State/ZIP Code Phon e Number [facility] [place] [address] [place] [address] LAB Basic Metabolic Panel (01/13/2018 3:16 PM CDT) P athologist Signature Potassium, S 4.4 3.6 - 5.2 01/13/2018 [facility] mmol/L 6:[address] [facility] [place] [facility] Sodium, S 140 135 - 145 01/13/2018 [facility] mmol/L 6:[address] [facility] [place] [facility] Chloride, S 103 98 - 107 01/13/2018 [facility] mmol/L 6:[address] [facility] [place] [facility] Bicarbonate, S 28 22 - 29 01/13/2018 [facility] mmol/L 6:[address] [facility] [place] [facility] Anion Gap 9 7 - 15 01/13/2018 [facility] 6:[address] [facility] [place] [facility] BUN (Blood Urea 21 8 - 24 01/13/2018 [facility] Nitrogen), S mg/dL 6:[address] [facility] [place] [facility] Creatinine 1.03 0.74 - 01/13/2018 [facility] 1.35 mg/dL 6:[address] [facility] [place] [facility] eGFR-Non 74 >=60 01/13/2018 [facility] Black/ mL/min/BSA 6:[address] [facility] [place] [facility] Comment: ----ADDITIONAL INFORMATION---- Estimated GFR calculated using the 2009 CKD_EPI creatinine equation. eGFR-Black/ 86 >=60 mL/min/BSA 2017 6:18 PM [facility] [place] [facility] Comment: ----ADDITIONAL INFORMATION---- Estimated GFR calculated using the 2009 CKD_EPI creatinine equation. Calcium, Total, S 9.5 8.8 - 10.2 mg/dL 01/13/2018 6 :18 PM CDT [facility] Glucose, S 77 70 - 140 mg/dL 01/13/2018 6:18 PM CDT [facility] Specimen Anatomical Collection Method Collection Time Receive d Time (Source) Location / / Volume Laterality Blood (Blood, 01/13/2018 3:16 PM 01/14/20 18 6:04 Venous) CDT PM CDT Leta Sanchez M.D. LAB BLOOD ADD-ON Performing Organization Address City/State/ZIP Code Phon e Number [facility] [address] [place] [address] LAB (ABNORMAL) CBC without Differential (01/13/2018 3:16 PM CDT) [facility] Method Time Signature Hemoglobin 13.8 13.2 - 01/13/2018 [facility] 16.6 g/dL 3:33 PM CDT [facility] LAB Hematocrit 41.4 38.3 - 01/13/2018 [facility] 48.6 % 3:33 PM CDT [email or web address] LAB Erythrocytes 4.80 4.35 - 01/13/2018 [facility] 5.65 3:33 PM CDT HEALTH x10(12)/L SYSTEM [facility] LAB MCV 86.3 78.2 - 01/13/2018 [facility] 97.9 fL 3:33 PM CDT [facility] RBC Distrib Width 14.8 (H) 11.8 - 01/13/2018 [facility] 14.5 % 3:[address] [facility] Platelet Count 264 135 - 317 01/13/2018 [facility] x10(9)/L 3:33 PM CDT [facility] Leukocytes 8.8 3.4 - 9.6 01/13/2018 [facility] x10(9)/L 3:[address] [facility] LAB Specimen Anatomical Collection Method Collection Time Receive d Time (Source) Location / / Volume Laterality Blood (Blood, 01/13/2018 3:16 PM 01/14/20 18 3:16 Venous) CDT PM CDT Leta Sanchez M.D. LAB BLOOD ADD-ON Performing Organization Address City/State/ZIP Code Phon e Number [facility] [address] [place] [address] [facility] [address] [place], [place] [address] [place] [address] [email or web address] LAB documented in this encounter Visit Diagnoses Diagnosis Anemia Hypertensive Heart And Chronic Kidney Di sease Without Heart Failure And With Stage 2 (Mild) Chronic Kidney Disease Coronary Artery Disease (Unspecified) High Risk Medication documented in this encounter Additional Health Concerns Assessment Noted Time PHQ-9 Depression Total Score: 6 12/26/2017 3:56 PM CDT documented as of this encounter Care Teams [employer]ire 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 PCP - General 10/17/16 10/18/19 documented as of this encounter
--- OUTSIDE RECORDS SUMMARY | 2022-03-29 07:49 | XMS_ITS | Encounter Summary ---
:1950 Author Organization [facility] Address [address] [place] [address] Care Team Providers Name Role Phone Leta Sanchez M.D. Primary Care Provider Reason for Visit Reason Comments Post-op 7 days post op-patient state s he is doing well Outpatient (Routine) - Closed Specialty Diagnoses / Procedures Referred By Contact Refer red To Contact Otorhinolaryngology Diagnoses PAR REVIEW Kathryn Mascorro [facility] [address] [place] [address] Referral ID Status Reason Start Date Expiration Date Visits Requ ested Visits Authorized [id number] Closed 12/15/2017 12/15/2018 1 1 Encounter Details Date Type Department Care Team Description 01/07/2018 Office Visit Department of Kathryn Mascorro Follow Up Exa mination Status Post Surgery (Primary Dx); Otorhinolaryngology in [facility], [facility] . Malignant Neoplasm Of Ear Squamous Cell [place], [place] [address] [place] [address] [place] [address] [phone] Social History Tobacco Use Types Packs/Day [...] How often do you attend yazidism or jehovah's witness services? 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 - 01/07/2018 12:00 PM CDT CHIEF COMPLAINT/REASON FOR VISIT Postop check HISTORY OF PRESENT ILLNESS Mr. Salazar presents the clinic today for 1 week postoperative check. 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 Frozen pathology revealed clear margins.He has been doing well over this last week. Pain has been minimal. No drainage or significant bleeding. He has been applying antibiotic ointment. He was quite pleased with the procedure. PHYSICAL EXAMINATION Patient is alert, in no acute distress. There is still some Dermabond both anteriorly and posteriorly over the left external ear. This was easily removed with pickups, and the simple interrupted nylon sutures were then removed without difficulty. Edges of wound are well approximated. No drainage, erythema, abnormal edema, or sign of secondary infection. This appears to be healing quite well. IMPRESSION/REPORT/PLAN 1. Postop check, left ear squamous cell carcinoma excision Patient is reassured regarding today's findings. He will see us within a week or 2 if he has concerns. We discussed signs of infection, he will let us know if any of these arise. Discussed importance of having this ear examined every 6-12 months in the future to assure that there are no lesions recurring. He agrees to have this done either by us, or at his regular checkups with his primary care provider. Kathryn Mascorro P.A.-C. documented in this encounter Plan of Treatment Upcoming Encounters Date Type Specialty Care Team Description 04/12/2022 Office Visit Cardiovascular Disease Simone Gooden AP RN, C.N.P. [address] [phone] (Wo rk) documented as of this encounter Visit Diagnoses Diagnosis Follow Up Examination Status Post Surger y - Primary Malignant Neoplasm Of Skin Of Ear Latera lity Unknown Squamous Cell documented in this encounter Additional Health Concerns Assessment Noted Time PHQ-9 Depression Total Score: 6 12/26/2017 3:56 PM CDT documented as of this encounter Care Teams Trouble Locater Relationship Specialty Start Date End Date Leta Sanchez M.D. PCP - General 10/17/16 10/18/19 documented as of this encounter
--- OUTSIDE RECORDS SUMMARY | 2022-03-29 07:49 | XMS_ITS | Encounter Summary ---
:1950 Author Organization [facility] Address [address] [place] [address] Care Team Providers Name Role Phone Leta Sanchez M.D. Primary Care Provider Encounter Details Date Type Department Care Team Description 01/26/2018 Hospital Encounter Department of Radiology Leta Sanchez M.D. 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 From [place]'s discharge on 03/25. clopidogrel (for_PLAVIX) Take 1 [...] pain continues. documented as of this encounter Progress Notes Edwin Gabriel C.MDale - 01/26/2018 11:59 PM CDT Contacted patient in regards to results, patient showed an understanding of results. Ana Su C.M.A. - 01/26/2018 2:29 PM CDT Left message for patient to call back. Leta Sanchez M.D. - 01/26/2018 1:26 PM CDT Please call. Kidney ultrasound show stable simple cyst right kidney. documented in this encounter Plan of Treatment Upcoming Encounters Date Type Specialty Care Team Description 04/12/2022 Office Visit Cardiovascular Disease Simone Gooden AP RN, C.N.P. [address] [phone] (Wo rk) documented as of this encounter Procedures Procedure Name Priority Date/Time Associated Comments Diagnosis US KIDNEYS RAD - Routine 01/26/2018 10:54 Cyst Renal Results fo r this BILATERAL WITH (most inpatients AM CDT procedure are in BLADDER and all the results outpatients) section. documented in this encounter Results US Retroperitoneum Kidney Bilateral (01/26/2018 10:54 AM CDT) Anatomical Region Laterality Modality Abdomen, Renal, Ultrasound RST LOS, Ultrasound ARZ LOS, Bila teral Ultrasound Ultrasound FLA LOS Specimen (Source) Anatomical Collection Method Collection Time Re ceived Time Location / / Volume Laterality 01/26/2018 10:58 AM CDT Impressions 01/26/2018 11:07 AM CDT IMPRESSION: Stable simple cyst right kid el. Narrative 01/26/2018 11:07 AM CDT EXAM: US RETROPERITONEUM KIDNEY BILATERAL COMPARISON: CT angiogram abdomen 05/30/17 . FINDINGS: Right kidney Length: 10.6 cm Cortical thickness: Normal Parenchymal echogenicity: Normal Collecting system: Not dilated. Masses: Stable 3.8 cm simple cyst superi or pole. No additional follow-up for this is recommended. Left kidney: Length: 10.7 cm Cortical thickness: Normal Parenchymal echogenicity: Normal Collecting system: Not dilated. Masses: None detected. Bladder: Normal. Normal bilateral ureter jets into the bl adder. Procedure Note Torsten Weldon M.D. - 01/26/2018 EXAM: US RETROPERITONEUM KIDNEY BILATERA L COMPARISON: CT angiogram abdomen 05/30/17 . FINDINGS: Right kidney Length: 10.6 cm Cortical thickness: Normal Parenchymal echogenicity: Normal Collecting system: Not dilated. Masses: Stable 3.8 cm simple cyst superi or pole. No additional follow-up for this is recommended. Left kidney: Length: 10.7 cm Cortical thickness: Normal Parenchymal echogenicity: Normal Collecting system: Not dilated. Masses: None detected. Bladder: Normal. Normal bilateral ureter jets into the bl adder. IMPRESSION: Stable simple cyst right kid el. Leta Sanchez M.D. IMG US PROCEDURES documented in this encounter Visit Diagnoses Diagnosis Cyst Renal documented in this encounter Care Teams Insurance Service Representative Relationship Specialty Start Date End Date Leta Sanchez M.D. PCP - General 10/17/16 10/18/19 documented as of this encounter
--- OUTSIDE RECORDS SUMMARY | 2022-03-29 07:49 | XMS_ITS | Encounter Summary ---
:1950 Author Organization [facility] Address [address] [place] [address] Care Team Providers Name Role Phone Leta Sanchez M.D. 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 [facility] Procedures Cystoscopy (specific provider) URO PROC CYSTOSCOPY [facility] [address] [place] [address] Referral ID Status Reason Start Date Expiration Date Visits Requ ested Visits Authorized [id number] Closed 08/21/2017 02/17/2018 1 1 Encounter Details Date Type Department Care Team Description 11/24/2017 Procedure visit Department of Urology Jatinder Camejo, Stricture Urethra (Primary Dx); in [place] Malignant Neoplasm Of Bladder Lateral Wa ll (HCC) [place] [address] [place], [place] [phone] Social History Tobacco Use Types Packs/Day Years [...] How often do you attend anabaptism or rastafarian services? 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 - 11/24/2017 9:00 AM CDT CHIEF COMPLAINT/REASON FOR VISIT Cystoscopy. ?? The patient was appropriately identified with at least two separate identifiers and the correct procedure was confirmed. Verbal consent was obtained. ?? INDICATION: Bladder cancer surveillance ?? 67-year old male with [...] this area was cauterized. Biopsies were benign. ?? INSTRUMENT: Flexible cystourethroscope. ANESTHESIA: 2% aqueous lidocaine jelly introduced into the urethra. ?? PROCEDURE: The patient was placed in a supine position. The genitalia were prepped and draped sterilely. The urethra was anesthetized with 2% aqueous lidocaine jelly. The cystoscope was advanced into the urethra. ?? FINDINGS: Meatus: Normal. 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 Prostate: Length: 3 cm centimeters. Lateral Lobes: Mild hypertrophy with no visual obstruction. Middle Lobe: absent. Bladder Neck: Normal. Residual Urine: Minimal (< 75 ml). Ureteral Orifices: Singular bilaterally, normal position on the trigone, slit- like in configuration and with clear efflux of urine noted bilaterally. Trabeculation: mild. Tumors: On the left lateral wall there is a area measuring approximately 1 cm which is suggestive ofurothelial hyperplasia, cannot entirely exclude recurrent tumor, this did not enhance with blue light cystoscopy. ?? The procedure was well tolerated by the patient. ?? He was discharged from the office in satisfactory condition. Post-cystoscopy instructions were reviewed with him. ?? IMPRESSION: history of bladder cancer.. ?? PLAN: send urine for Urovysion??? fluorescence in situ hybridization (FISH or FUROC) and urine cytology. If either test is abnormal, we will proceed with cystoscopy in the operating room to include bladder biopsies. Otherwise the patient will return to clinic in 4 months for bladder cancer surveillance. Patient is not overly anxious to proceed with biopsies in the operating room, and less absolutely necessary. Patient expresses comfort with this plan of action. Electronically signed by: Jatinder Camejo M.D. 11/24/17 9:08 AM documented in this encounter Plan of Treatment Upcoming Encounters Date Type Specialty Care Team Description 04/12/2022 Office Visit Cardiovascular Disease Simone Gooden AP RN, C.N.P. [address] [phone] (Wo rk) Scheduled Orders Name Type Priority Associated Diagnoses Order S chedule UROGYN Cystoscopy OB Routine Malignant Neoplasm Of E xpected: 03/16/2018 Bladder Lateral Wall (HCC) ( Approximate), Expires: 11/24/2020 documented as of this encounter Procedures Procedure Name Priority Date/Time Associated Diagnosis Comme nts CYTOLOGY NON-DESIGNER ARCHITECT Routine 11/24/2017 9:23 AM Malignant Neoplasm Results for this CDT Of Bladder Lateral procedure are in [place] (HCC) the results section. UROVYSION (R) FOR Routine 11/24/2017 9:23 AM Malignant Neoplas m Results for this BLADDER CANCER CDT Of Bladder Lateral procedu re are in [place] (HCC) the results section. documented in this encounter Results UroVysion for Detection of Bladder Cancer, Urine (11/24/2017 9:23 AM CDT) Component Value Ref Test Analysis Performed At [facility] Range Method Time Signature Result Summary Negative 12/02/2017 [facility] 11:28 AM LABORATORIES - [facility] Karyotype No evidence of 12/02/2017 [facility] urothelial 11:28 AM LABORATORIES - carcinoma. [facility] Reason for Evaluate for 12/02/2017 [facility] referral urothelial 11:28 AM LABORATORIES - carcinoma. [facility] Specimen Varies 12/02/2017 [facility] 11:28 AM LABORATORIES - [facility] Source Voided 12/02/2017 [facility] 11:28 AM LABORATORIES - [facility] Released By Yamilka Muller, 12/02/2017 [facility] M.[facility]. [id number] 11:28 AM [facility]ATORIES - [facility] Interpretation This test result does not rule out the possibility t hat the 12/02/2017 [facility] patient may have a low-grade (i.e. grade 1 or 2) 11:28 AM LABORATORIES - non-invasive papillary urothelial carcinoma. Some patients [facility] with low grade non-invasive papillary urothelial carcinoma CAMPUS do not have abnormalities with this FISH test. Comment: ----ADDITIONAL INFORMATION---- Fluorescence in situ hybridization (FISH ) with centromere probes for chromosomes 3 (D3Z1), 7(D7Z1), 17(D17Z1) , and a locus specific probe for 9p21. This test has been modified from the man ufacturer's instructions. Its performance characteristics were determi herbert by [facility] in a manner consistent with CLIA requirements. This test has not been cleared or approved by the U.S. Food and Drug Administration . Specimen Anatomical Collection Method Collection Time Receive d Time (Source) Location / / Volume Laterality Varies (Urine, 11/24/2017 9:23 AM 07/24/2 018 8:25 Voided) CDT AM CDT Narrative This result has an attachment that is no t available. Jatinder Camejo M.D. LAB GENETIC TESTING Performing Organization Address City/[facility]/ZIP Code Phon e Number [facility] LABORATORIES - [address] [place], [place] [address] [facility] Pathology Non-DESIGNER ARCHITECT Cytology (11/24/2017 9:23 AM CDT) Component Value Ref Test Analysis Performed At [facility] Range Method Time Signature Gross Description Received 20 11/25/2017 [facility] IC ml of yellow 11:34 AM HEALTH alcohol fixed CDT SYSTEM- fluid [facility] Collection Voided 11/25/2017 [facility] Procedure 11:34 AM HEALTH CDT [facility] Fixative no 11/25/2017 [facility] 11:34 AM JetaportT [facility] Source A. Urine, 11/25/2017 [facility] voided 11:34 AM JetaportT [facility] Clinical History History of 11/25/2017 [facility] bladder 11:34 AM OGPlanet cancer [employer] [facility] CYT[facility] Report Oh Varma MD 11/25/2017 [facility] electronically I verify that I have examined all relevant slides/ma terials 11:34 AM HEALTH signed by for the specimen(s) and rendered or confirmed the diagnosi s. [facility] 11/25/2017 [facility] 11:34 AM [employer]T [facility] CYTOLOGY Interpretation A. Urine, voided (cytospin): Negative for High-Grade 11/25/2017 [facility] Urothelial Carcinoma. 11:34 AM SMS [employer] [facility] CYTOLOGY Specimen Anatomical Collection Method Collection Time Receive d Time (Source) Location / / Volume Laterality Varies 11/24/2017 9:23 AM 8 8:22 CDT AM CDT Narrative This result has an attachment that is no t available. Jatinder Camejo M.D. LAB SURG PATH ORDERABLES Performing Organization Address City/[facility]/ZIP Code Phon e Number [facility] [address] [place] [address] CYTOLOGY documented in this encounter Visit Diagnoses Diagnosis Stricture Urethra - Primary Malignant Neoplasm Of Bladder Lateral Wa ll (HCC) documented in this encounter Additional Health Concerns Assessment Noted Time PHQ-9 Depression Total Score: 5 07/23/2017 9:28 AM CDT documented as of this encounter Care Teams Sticker On Relationship Specialty Start Date End Date Leta Sanchez M.D. PCP - General 10/17/16 10/18/19 documented as of this encounter
--- OUTSIDE RECORDS SUMMARY | 2022-03-29 07:49 | XMS_ITS | Encounter Summary ---
:1950 Author Organization [facility] Address [address] [place] [address] Care Team Providers Name Role Phone Leta Sanchez M.D. Primary Care Provider Reason for Referral Outpatient (Routine) - Closed Specialty Diagnoses / Procedures Referred By Contact Refer red To Contact Otorhinolaryngology Diagnoses Kathryn Lazo [facility] [address] [phone] Referral ID Status Reason Start Date Expiration Date Visits Requ ested Visits Authorized [id number] Closed 12/15/2017 12/15/2018 1 1 Scheduling Instructions Schedule 7-10 days post-op, please confi rm date of surgery. Outpatient (Routine) - Closed Specialty Diagnoses / Procedures Referred By Contact Refer red To Contact Family Medicine Diagnoses Lesion Skin Ear CIM Kathryn Alex [facility] [address] [address] Referral ID Status Reason Start Date Expiration Date Visits Requ ested Visits Authorized [id number] Closed 12/15/2017 12/15/2018 1 1 Reason for Visit Reason Comments Ear Problem cyst on left ear - appeared acouple of months ago - hurtful, sleeps on left side Encounter Details Date Type Department Care Team Description 12/15/2017 Comprehensive Visit Department of Subha, Lesion Skin Ear Otorhinolaryngology in Kathryn Headley, (Prim fely Dx) [place], [place] P.A.-C. [address] [place] [address] [phone] [place] [address] Social History Tobacco Use Types Packs/Day Years [...] week 04/16/2019 How often do you attend jew or mandaen services? 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 - 12/15/2017 10:00 AM CDT CHIEF COMPLAINT/REASON FOR VISIT Left ear lesion HISTORY OF PRESENT ILLNESS Mr. Salazar is a self-referred 67-year-old male here to have his ear evaluated. To 3 months ago he began to notice a lesion in the left helix. This is then increase in size. It is extremely tender, but it has not been draining or bleeding. He did try squeezing and poking at a little bit, but was not able to elicit any drainage. No personal history of skin cancer, or similar lesions. PHYSICAL EXAMINATION Patient is alert, in no acute distress. On the left superior helix he has a raised, nodular lesion approximately 1.2 x 1.3 cm in size. This is firm, with a small amount of superficial ulceration and some scabbing on the top portion. No surrounding skin erythema, no drainage, remainder of ear exam is otherwise normal. No cervical or periauricular adenopathy. IMPRESSION/REPORT/PLAN 1. Left ear skin lesion, helix Discussed involved anatomy and findings. Discussed possibility of malignancy versus other benign cystic lesion, or pyogenic granuloma. He is interested in proceeding with excision of this lesion under general anesthesia. We discussed this procedure in detail including goals, risks, and potential complications. He is aware that this is a low risk procedure. This will require a preoperative physical toassess anesthetic and surgical risk. We discussed having frozen pathology available during this procedure. His questions are answered in orders are filled out accordingly. Kathryn Mascorro P.A.-C. documented in this encounter Plan of Treatment Upcoming Encounters Date Type Specialty Care Team Description 04/12/2022 Office Visit Cardiovascular Disease Simone Gooden AP RN, C.N.P. [address] [phone] (Wo rk) Scheduled Referrals Name Type Priority Associated Order Schedule Diagnoses Primary Care - CAPRICE consult Outpatient Routine Lesion Skin Ea r Expected: (clinic) Referral 12/15/2017 (Approximate), Expires: 12/15/2020 Otorhinolaryngology office Outpatient Routine E xpected: visit (clinic) Referral 12/22/2017 (Approximate), Expires: 12/15/2020 documented as of this encounter Visit Diagnoses Diagnosis Lesion Skin Ear - Primary documented in this encounter Additional Health Concerns Assessment Noted Time PHQ-9 Depression Total Score: 5 07/23/2017 9:28 AM CDT documented as of this encounter Care Teams Mosaic Floor Layer Relationship Specialty Start Date End Date Leta Sanchez M.D. PCP - General 10/17/16 10/18/19 documented as of this encounter
--- OUTSIDE RECORDS SUMMARY | 2022-03-29 07:49 | XMS_ITS | Encounter Summary ---
:1950 Author Organization [facility] Address [address] [place] [address] Care Team Providers Name Role Phone Leta Sanchez M.D. Primary Care Provider Reason for Visit Reason Comments Follow-up Patient in for 3 month follo w up from 10/09/2017 Medicare Annual Wellness Visit Subsequent Annual Medic are Wellness Outpatient (Routine) - Closed Specialty Diagnoses / Procedures Referred By Contact Refer red To Contact Community Internal Diagnoses CIM PHYS Leta Sanchez M.D. [facility] [address] [facility] [place] [address] Referral ID Status Reason Start Date Expiration Date Visits Requ ested Visits Authorized [id number] Closed 10/09/2017 10/09/2018 1 1 Encounter Details Date Type Department Care Team Description 01/15/2018 Comprehensive Visit Department of Leta Sanchez, Annual Medicare Examination Return (Primary Dx); Community Internal MRoldan Anemia; Medicine in [address] [place] Polymyalgia Rh eumatica (HCC); Romi Roberson, [address] Bronchitis Chronic (HCC); [place], [place] Hypertensive Heart And Chron ic Kidney Disease Without Heart Failure And With Stage 2 (Mild) Chronic Kidney Disease; [address] [place] [address] [address] [id number] Coronary Artery Disease; ANASTASIIAJAYNA MAGAÑA [phone] Coronary Stent Status Post; [phone] (Fax) Hyperlipidemia; [phone] Abuse Tobacco S moking; Depression Anxi ety; Insomnia; Reflux Esophage al; Cyst Renal; Cancer Bladder Personal History; High Risk Medic ation Social History Tobacco [...] How often do you attend voodoo or uatsdin services? 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 - 01/15/2018 4:00 PM CDT Please check with pharmacist regarding insurance coverage for new shingle vaccination (Shingrix). Please continue current medications and try to quit smoking tobacco. Return to clinic in 6 months for follow-up. Please do blood test few days prior to the appointment. documented in this encounter H&P Notes Leta Sanchez M.D. - 01/15/2018 4:00 PM CDT SUBJECTIVE CHIEF COMPLAINT/REASON FOR VISIT 1. Medicare annual wellness visit. 2. Review chronic medical problems. 3. Discuss test results. HISTORY OF PRESENT ILLNESS Seven Salazar is a 67 y.o. male who presents to the clinic today for the above complaints. I last saw him on 10/09/2017. He is doing well overall. He saw Dr. Salomón Ruiz, Security Business Analyst, on 10/13/2017 to establish care. He has hypertension, hyperlipidemia, and coronary artery disease with stents placement in 03/2017 and non-ST elevation myocardial infarction in 07/2017. Medication therapy was continued and advised to return in 1 year. He deniesany chest pain or shortness of breath. He still smokes cigarettes and has had one cigarette so far today. He saw ENT on 12/15/2017 for left ear lesion. 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 We discussed test results from 01/13/2018. Results were remarkable for normal CBC and electrolytes, EGFR 74, glucose 77, and CK 101. Patient has history of bladder cancer and is followed by Dr. Camejo. He denies any problems with urination. No hematuria. He had normal PSA in September 2017. He had followup cystoscopy on 11/24/2017. We discussed Medicare annual wellness visit preventive screening services. I reviewed and updated medical and surgical history, family history, immunizations, allergies, and medications. He is overdue for eye exam. He does not see dentist regularly. His last colonoscopy was done on 11/26/2011. He is lo w risk. Need to repeat screening colonoscopy after 11/26/2021. There were no problems with bowel movement. He wants return to work note today. There are no additional questions, concerns, or [...] mg total) by mouth at bedtime. From Ponce's discharge on 03/25. 90 tablet 3 ??? [...] Coronary Artery Disease 06/12/2017 ??? 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 Cyst Renal 02/05/2016 [...] 02/12/2010 Health Maintenance Topic Date Due ??? Zoster Vaccines (1 of 2 - Shingrix) 03/31/2018 (Originally 02/22/1999) ??? Influenza Vaccine (1) 05/01/2018 (Originally 01/03/2018) ??? Depression Monitoring (PHQ-9) 05/17/2018 ??? Fall Risk Assessment 01/15/2019 ??? Blood Pressure Check / Re-check 01/15/2019 ??? DTaP,Tdap,and Td Vaccines (2 - Td) 02/13/2020 ??? Diabetes Screening 01/13/2021 ??? Colon Cancer Screening 11/25/2021 ??? Lipid Panel 07/22/2022 ??? Abdominal Aortic Aneurysm (AAA) Screen Completed ??? Pneumococcal High/Highest Risk Adult 65+ Completed ??? Hepatitis C Screening Completed SOCIAL HISTORY Social History Social History ??? [...] Lung cancer Sister OBJECTIVE VITAL SIGNS Vitals: 01/15/18 1545 01/15/18 1552 BP: (!) 127/52 (!) 120/50 Patient Position: Sitting Sitting Pulse: 72 63 Resp: 24 Height: 170 cm Weight: 92.4 kg PHYSICAL EXAMINATION General: Patient is sitting. No distress. Able to talk without interruption. Skin: No rash, bruise or nodules. Head: No facial rash, asymmetry or sinus tenderness. Eyes: PERRLA. EOMI. No pallor, icterus or conjunctivitis. He had bilateral cataract surgery. ENT: No nasal congestion, discharge or bleeding. There is no ear infection or discharge. No mastoid tenderness. Tongue is moist and midline. No oral lesions. Lymph nodes: No cervical, supraclavicular, axillary, inguinal or femoral lymphadenopathy. Thyroid: No thyromegaly. No thyroid thrill or bruit. Peripheral vessels: Good radial, femoral and pedal pulses. Heart: No carotid bruit. No JVD. Regular rhythm. There is no S3, gallop, murmur or thrill. Lungs: Normal respiratory effort. Clear to auscultation. Normal percussion. Abdomen: Moves with respiration. Bowel sounds present. Soft. No rebound tenderness, guarding or rigidity. No organomegaly. Rectum: Intact anal sphincter tone. No hemorrhoid or rectal mass. Stool guaiac negative. Prostate: Appropriate for age. No tenderness. Smooth surface. Firm in consistency. Genitalia: No urethral discharge. Normal testicles. No hydrocele or hernia. Spine: No scoliosis or kyphosis. No spinous tenderness or mass. Joints: No joint swelling or deformity. No decreased range of motion. Extremities: No clubbing, cyanosis, edema, infection or calf tenderness. Gait: No abnormal gait. Mental: Alert and oriented x 3. Normal mood and affect. Neuro: Grossly nonfocal. DIAGNOSTICS LABORATORY: 01/13/2018 15:16 Hemoglobin 13.8 HEMATOCRIT 41.4 Erythrocytes 4.80 MCV 86.3 RBC Distrib Width 14.8 (H) Platelet Count 264 Leukocytes 8.8 Sodium, S 140 Potassium, S 4.4 Chloride, S 103 Bicarbonate, S 28 Anion Gap 9 Bld Urea Nitrog(BUN), S 21 Creatinine, S 1.03 eGFR-Non Black 74 eGFR-Black 86 Calcium, Total 9.5 Glucose, S 77 Alanine Aminotransferase (ALT), S 15 Aspartate Aminotransferase (AST), S 23 Creatine Kinase (CK), S 101 ASSESSMENT / PLAN #1 Annual Medicare Examination Return PLAN: We discussed Medicare annual wellness visit preventive screening services. Patient answered patient screening questionnaire and safety screen. Mini Cog scoring was done. It is normal. Please see copies scanned into the electronic health record. Need to eat healthy diet and exercise regularly to maintain healthy body weight and BMI. Today Body mass index is 31.97 kg/m??. PHQ-9 score is 0. He will check with his insurance regarding Shingrix. Otherwise, immunization record is up to date. Advised to see eye doctor once a year and dentist every six months. Need health maintenance exam every year. #2 Anemia PLAN: It is resolved. His hemoglobin and hematocrit are normal. There was no evidence of bleeding. Need to watch for bleeding. We will monitor CBC at subsequent visit. #3 Polymyalgia Rheumatica (HCC) PLAN: It is controlled. He has no symptoms. We will monitor with sedimentation rate at subsequent visit. #4 Bronchitis Chronic (HCC) PLAN: Patient is stable from respiratory standpoint. He will continue Albuterol inhaler as needed. 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 Patient is stable from a cardiac standpoint. Need to continue sodium controlled diet and current medication. Monitor blood pressure regularly at home. Blood pressuregoal is less than 140/90 mmHg. Need to continue cardiovascular risk factors modification. #6 Coronary Artery Disease #7 Coronary Stent Status Post PLAN: He is stable from a cardiac standpoint. There is no angina. Patient does not need to take Nitroglycerin. Need to continue current medications and cardiovascular risk factor modification. He will follow with Dr. Ruiz, Security Business Analyst. #8 Hyperlipidemia PLAN: There are no side effects from Atorvastatin. Patient was advised to continue low cholesterol, low fat diet, regular exercise, and current medication. Need to check fasting lipid profile every 12 months. #9 Abuse Tobacco Smoking PLAN: I recommended complete smoking cessation. We discussed complications. #10 Depression Anxiety PLAN: It is stable. Today PHQ-9 score is 0. He should contact me if there is worsening of symptoms. #11 Insomnia PLAN: He is sleeping well. He does not need to sleep medication at this time. #12 Reflux Esophageal PLAN: It is controlled without medication. Patient will continue antireflux measures. #13 Cyst Renal Right PLAN: He has a 2.2 x 2.5 x 2.7 cm partially exophytic anechoic structure arising from the inferior pole of the right kidney per ultrasound on 10/21/2011. He is asymptomatic. Since his last ultrasound was done in 2014, it was decided to schedule kidney ultrasound at his earliest convenience. #14 Cancer Bladder Personal History PLAN: He will follow with Dr. Camejo, Urologist. He needs to quit smoking tobacco. #15 Discussed Test Results PLAN: I reviewed test results from 01/13/2018. All questions were answered. #16 Followup Visit PLAN: Return to the clinic in 6 months for followup with following tests prior to appointment: BMP, CBC, CK, HFP, and Sed rate. This document serves as a record of services personally performed by Dr. Leta Sanchez. It was created on their behalf by Juan Ramos, a trained medical doctor md. The creation of this record is based on the scribe's personal observations and the provider's statements to them. This document has been checked and approved by the attending provider. documented in this encounter Plan of Treatment Upcoming Encounters Date Type Specialty Care Team Description 04/12/2022 Office Visit Cardiovascular Disease Simone Gooden AP RN, C.N.P. [address] [phone] (Wo rk) documented as of this encounter Results (ABNORMAL) Sedimentation Rate (07/22/2018 2:27 PM CDT) [facility] gist Method Time Signature Sedimentation 24 (H) 0 - 22 07/22/2018 [facility] Rate, B mm/1 h 3:09 PM CDT [facility] LAB Specimen Anatomical Collection Method Collection Time Receive d Time (Source) Location / / Volume Laterality Blood (Blood, 07/22/2018 2:27 PM 07/23/19 19 2:27 Venous) CDT PM CDT Leta Sanchez M.D. LAB BLOOD ADD-ON Performing Organization Address City/State/ZIP Code Phon e Number [facility] [address] [place] [address] LAB CK (Creatine Kinase) (07/22/2018 2:27 PM CDT) athologist Signature Creatine Kinase 122 39 - 308 07/22/2018 [facility] (CK), S U/L 9:29 PM CDT [facility] LAB Specimen Anatomical Collection Method Collection Time Receive d Time (Source) Location / / Volume Laterality Blood (Blood, 07/22/2018 2:27 PM 07/23/19 19 9:09 Venous) CDT PM CDT Leta Sanchez M.D. LAB BLOOD ADD-ON Performing Organization Address City/State/ZIP Code Phon e Number [facility] [address] [place] [address] [facility] LAB Hepatic Function Panel (07/22/2018 2:27 PM CDT) [facility] Method Time Signature Bilirubin, Total, S 0.4 <=1.2 07/22/2018 [facility] mg/dL 7:01 PM CDT [facility] Bilirubin, Direct, S <0.2 0.0 - 0.3 07/22/2018 [facility] mg/dL 7:29 PM CDT [facility] [place] [facility] Aspartate 20 8 - 48 07/22/2018 [facility] Aminotransferase U/L 7:01 PM T [facility] Alanine 15 7 - 55 07/22/2018 [facility] Aminotransferase U/L 7:01 PM [facility] Alkaline 115 40 - 129 07/22/2018 [facility] Phosphatase, S U/L 7:01 PM [facility] Albumin, S 4.5 3.5 - 5.0 07/22/2018 [facility] g/dL 7:01 PM CDT [facility] Protein, Total, S 7.0 6.3 - 7.9 07/22/2018 [facility] g/dL 7:01 PM T [facility] LAB Specimen Anatomical Collection Method Collection Time Receive d Time (Source) Location / / Volume Laterality Blood (Blood, 07/22/2018 2:27 PM 07/23/19 19 6:48 Venous) CDT PM CDT Leta Sanchez M.D. LAB BLOOD ADD-ON Performing Organization Address City/State/ZIP Code Phon e Number [facility] [place] [address] [place] [address] LAB (ABNORMAL) Basic Metabolic Panel (07/22/2018 2:27 PM CDT) P athologist Signature Potassium, S 4.6 3.6 - 5.2 07/22/2018 [facility] mmol/L 7:01 PM [facility] [place] [facility] Sodium, S 137 135 - 145 07/22/2018 [facility] mmol/L 7:01 PM [facility] Chloride, S 101 98 - 107 07/22/2018 [facility] mmol/L 7:01 PM [facility] Bicarbonate, S 26 22 - 29 07/22/2018 [facility] mmol/L 7:01 PM [facility] Anion Gap 10 7 - 15 07/22/2018 [facility] 7:01 PM [facility] BUN (Blood Urea 27 (H) 8 - 24 07/22/2018 [facility] Nitrogen), S mg/dL 7:01 PM [facility] Creatinine 1.18 0.74 - 07/22/2018 [facility] 1.35 mg/dL 7:01 PM [facility] [place] [facility] eGFR-Non 63 >=60 07/22/2018 [facility] Black/ mL/min/BSA 7:01 PM [facility] [place] [facility] Comment: ----ADDITIONAL INFORMATION---- Estimated GFR calculated using the 2009 CKD_EPI creatinine equation. eGFR-Black/ 72 >=60 mL/min/BSA 2018 7:01 PM [facility] [place] [facility] Comment: ----ADDITIONAL INFORMATION---- Estimated GFR calculated using the 2009 CKD_EPI creatinine equation. Calcium, Total, S 9.9 8.8 - 10.2 mg/dL 07/22/2018 7 :01 PM T [facility] [place] [facility] Glucose, S 99 70 - 140 mg/dL 07/22/2018 7:01 PM T [facility] [place] [facility] Specimen Anatomical Collection Method Collection Time Receive d Time (Source) Location / / Volume Laterality Blood (Blood, 07/22/2018 2:27 PM 07/23/19 19 6:48 Venous) CDT PM CDT Phunt Phyo M.D. LAB BLOOD ADD-ON Performing Organization Address City/State/ZIP Code Phon e Number [facility] [address] [place] [address] LAB (ABNORMAL) CBC without Differential (07/22/2018 2:27 PM CDT) [facility] gist Method Time Signature Hemoglobin 14.9 13.2 - 07/22/2018 [facility] 16.6 g/dL 2:35 PM CDT [facility] LAB Hematocrit 44.4 38.3 - 07/22/2018 [facility] 48.6 % 2:36 PM CDT [facility] LAB Erythrocytes 5.12 4.35 - 07/22/2018 [facility] 5.65 2:36 PM CDT HEALTH x10(12)/L [facility] LAB MCV 86.7 78.2 - 07/22/2018 [facility] 97.9 fL 2:36 PM CDT [facility] LAB RBC Distrib Width 14.8 (H) 11.8 - 07/22/2018 [facility] 14.5 % 2:36 PM CDT [facility] LAB Platelet Count 266 135 - 317 07/22/2018 [facility] x10(9)/L 2:36 PM CDT [facility] LAB Leukocytes 8.6 3.4 - 9.6 07/22/2018 [facility] x10(9)/L 2:36 PM CDT [facility] LAB Specimen Anatomical Collection Method Collection Time Receive d Time (Source) Location / / Volume Laterality Blood (Blood, 07/22/2018 2:27 PM 07/23/19 19 2:27 Venous) CDT PM CDT Leta Sanchez M.D. LAB BLOOD ADD-ON Performing Organization Address City/[facility]/ZIP Code Phon e Number [facility] [address] [place] [address] LAB US Retroperitoneum Kidney Bilateral (01/26/2018 10:54 AM [...] Annual Medicare Examination Return - Ceci alla Anemia Polymyalgia Rheumatica (HCC) Bronchitis Chronic (HCC) Hypertensive Heart And Chronic Kidney Di sease Without Heart Failure And With Stage 2 (Mild) Chronic Kidney Disease Coronary Artery Disease (Unspecified) Coronary Stent Status Post Hyperlipidemia Abuse Tobacco Smoking Depression Anxiety Insomnia Reflux Esophageal Cyst Renal Personal History Of Malignant Neoplasm O f Bladder High Risk Medication Cyst Renal documented in this encounter Care Teams Photographer News Relationship Specialty Start Date End Date Leta Sanchez M.D. PCP - General 10/17/16 10/18/19 documented as of this encounter
--- OUTSIDE RECORDS SUMMARY | 2022-03-29 07:49 | XMS_ITS | Encounter Summary ---
:1950 Author Organization [facility] Address [address] [place] [address] Care Team Providers Name Role Phone Leta Sanchez M.D. Primary Care Provider Reason for Referral Outpatient (Routine) - Closed Specialty Diagnoses / Procedures Referred By Contact Refer red To Contact Community Internal Diagnoses CIM EST Leta Sanchez M.D. [facility] Medicine [address] [place], [facility] [address] [place] [address] Referral ID Status Reason Start Date Expiration Date Visits Requ ested Visits Authorized [id number] Closed 03/02/2018 03/02/2019 1 1 Scheduling Instructions Follow-up after nuclear stress test. utpatient (Routine) - Closed Specialty Diagnoses / Procedures Referred By Contact Refer red To Contact Diagnoses Pain Chest Abdominal Pain Diarrhea Coronary Artery Disease (Unspecified) Let[facility] M.D. [facility] Procedures ECG 12 Lead MD EKG 12 LEAD TRACE ONLY MD EKG I&R ONLY [address], [place] [address] [place] [address] Referral ID Status Reason Start Date Expiration Date Visits Requ ested Visits Authorized [id number] Closed 03/02/2018 03/02/2019 1 1 Reason for Visit Reason Comments Abdominal Pain Patient reports having stoma ch issues, says that he had the same symptoms when he had a heart attack. No nausea/cramping, some bad diarrhea on occasions withou t pain. Last this happened, he had stents put in heart due to a series of heart attack. Appointment Request (Routine) - Closed Specialty Diagnoses / Procedures Referred By Contact Refer red To Contact [facility] Internal Diagnoses [facility] Medicine Procedures CIM EST Referral ID Status Reason Start Date Expiration Date Visits Requ ested Visits Authorized [id number] Closed 02/26/2018 02/26/2019 1 1 Encounter Details Date Type Department Care Team Description 03/02/2018 Office Visit Department of Leta Sanchez M.D . Pain Chest (Primary Dx); Community Internal [address], Abd ominal Pain; Medicine in [place] [address] Diarrhea; [place], [place] Coronary Artery Disease; [address] [address] Coronary Stent Status Post; JAYNA THIBODEAUX Hyperten sive Heart And Chronic Kidney Disease Without Heart Failure And With Stage 2 (Mild) Chronic Kidney Disease; [id number] Abuse Tobacco Smoking [phone] Social History Tobacco Use Types Packs/Day Years [...] How often do you attend lutheran or anabaptism services? Never 04/16/2019 Do you [...] at Date Recorded Male 06/28/2019 8:47 AM [employer] documented as of this encounter Last Filed Vital Signs Vital Sign Reading Time Taken Comments Blood Pressure 139/75 03/02/2018 11:19 AM CDT Pulse 62 03/02/2018 11:19 AM CDT Temperature - - Respiratory Rate - - Oxygen Saturation - - Inhaled Oxygen Concentration - - Weight 94.6 kg (208 lb 8.9 oz) 03/02/2018 11:16 AM CDT Height 170 cm (5' 6.93) 03/02/2018 11:16 AM CDT Body Mass Index 32.73 03/02/2018 11:16 AM CDT documented in this encounter Patient Instructions Patient InstructionsLeta Sanchez M.D. - 03/02/2018 11:30 AM CDT Please take nitroglycerin under the tongue every 5 min up to 3 doses, for chest pain. You should call 911 and go to emergency department if you continue to have chest pain. Please start isosorbide mononitrate 30 mg by mouth daily in the morning for coronary artery disease with chest pain. Please contact our office if you notice side effect from isosorbide mononitrate. [address] [facility], time and instruction for nuclear stress test with sestamibi scan. Return to clinic after completion of stress test. documented in this encounter Progress Notes Leta Sanchez M.D. - 03/02/2018 11:30 AM CDT SUBJECTIVE CHIEF COMPLAINT/REASON FOR VISIT Abdominal pain. HISTORY OF PRESENT ILLNESS Seven Salazar is a 68 y.o. male who presents to the clinic today for abdominal pain. He has stomach discomfort and occasional diarrhea. He had similar symptoms when he had his heart attack. He has had intermittent chest discomfort. He took Nitroglycerin last week at work which resolvedhis pain. He has history of coronary artery disease with stents placement in 03/2017 and non-ST elevation myocardial infarction likely secondary to influenza A in 07/2017. I reviewed his cardiac catheterization report from 07/24/2017: Coronary artery dominance is right. The middle [...] is 30% obstructed by a discrete lesion. He needs a form filled out for work. Please see copy scanned into his medical record. I reviewed andupdated his medication list. We discussed potential side effects. There are no additional questions,concerns, or complaints. CURRENT MEDICATIONS Current Outpatient Prescriptions [...] mg total) by mouth at bedtime. From [facility] discharge on 03/25. 90 tablet 3 [...] additional doses if chest pain continues. ??? isosorbide mononitrate (IMDUR) 30 mg 24 [...] Coronary Artery Disease 06/12/2017 ??? Corticosteroid Treatment Winding Inspector Systemic 03/14/2017 ??? Cyst Renal 02/05/2016 ??? [...] Reflux Esophageal 12/24/2011 ??? Seizure Partial Complex ([facility]) 03/23/2004 ??? Stricture Urethra 02/05/2016 SURGICAL HISTORY [...] Lung cancer Sister OBJECTIVE VITAL SIGNS Vitals: 03/02/18 1116 03/02/18 1119 BP: 152/60 139/75 Patient Position: Sitting Sitting Pulse: (!) 48 62 Height: 170 cm Weight: 94.6 kg PHYSICAL EXAMINATION General: Patient is sitting. [...] Neuro: Grossly nonfocal. 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 There is no acute abdomen clinically. Since hehad similar symptoms with his myocardial infarction in July 2017, he needs cardiac workup. Need to check EKG, chest x-ray, and cardiac enzyme today. We will schedule nuclear stress test with sestamibiscan at [facility]. Patient was advised to start Imdur 30 mg daily in the morning. Need to continue current medications and cardiovascular risk factor modification. He needs toquit smoking. He should contact me if he develops side effects to new prescription medication. If hehas recurrent chest pain, he should take Nitroglycerin every 5 minutes up to three doses He should call 911 and go to hospital ER if he continues to have chest pain. #8 Today Studies PLAN: Patient had following studies done today: BMP, CBC, Troponin I, EKG, and Chest x-ray. Patient will be notified with results & recommendations. #9 Followup Visit PLAN: Return to the clinic after stress test. Administrative Billing 25 minutes of this 35 minute visit was spent in face to face counseling and coordination of care. This document serves as a record of services personally performed by Dr. Leta Sanchez. It was created on their behalf by Juan Ramos, a trained biomedical equipment technician. The creation of this record is based on the scribe's personal observations and the provider's statements to them. This document has been checked and approved by the attending provider. Edwin Gabriel C.M.A. - 03/02/2018 11:30 AM CDT Attempted to contact patient and left a voicemail with call back number. Edwin Gabriel C.M.A. - 03/02/2018 11:30 AM CDT Contacted and discussed with patient recent test results, patient did show an understanding of results. documented in this encounter Plan of Treatment Upcoming Encounters Date Type Specialty Care Team Description 04/12/2022 Office Visit Cardiovascular Disease Simone Gooden AP RN, C.N.P. [address] [address] [phone] (Wo rk) Scheduled Referrals Name Type Priority Associated Diagnoses Order S [facility] Internal Outpatient Referral Routine Ex pected: Medicine office 03/02/2018 visit (clinic) (Approximate) , Expires: 03/02/2021 documented as of this encounter Procedures Procedure Name Priority Date/Time Associated Diagnosis Comme nts MARCY THIBODEAUX STAT 03/02/2018 12:40 PM Resu lts for this [facility] 1 CDT procedure a re in the results section. ECG Routine 03/02/2018 12:39 PM Pain Chest Results for this CDT Abdominal Pain procedure are in Diarrhea the results Coronary Artery section. Disease BASIC METABOLIC Routine 03/02/2018 12:33 PM Pain Chest Results for this PANEL, S/P CDT Abdominal Pain procedure are in Diarrhea the results Coronary Artery section. Disease CBC WITHOUT Routine 03/02/2018 12:32 PM Pain Chest Results for this DIFFERENTIAL, B CDT Abdominal Pain procedure are in Diarrhea the results Coronary Artery section. Disease documented in this encounter Results Marcy Fitchibault Misc STAT Test 1 (03/02/2018 12:40 PM CDT) P athologist Signature Test Name Troponin I 03/02/[address] [facility] 1:36 PM CDT - [facility] Intermedia Result See Scanned 03/02/2018 [facility] Report 1:36 PM CDT - [facility] Specimen Anatomical Collection Method Collection Time Receive d Time (Source) Location / / Volume Laterality Varies 03/02/2018 12:40 03/02/2018 PM CDT 12:40 PM CDT Narrative This result has an attachment that is no t available. Leta Sanchez M.D. LAB MISC ORDERABLES Performing Organization Address City/[facility]/ZIP Code Phon e Number [facility] [place] [place] [phone] [phone] ECG 12 Lead (03/02/2018 12:39 PM CDT) P athologist Signature Ventricular Rate 58 BPM MUSE ECG/Min MD Interval 190 ms MUSE QRSD Interval 122 ms MUSE QT Interval 452 ms MUSE QTC Interval 443 ms MUSE P Craig 55 degrees MUSE R Craig 30 degrees MUSE T Wave Craig 37 degrees MUSE Specimen Anatomical Collection Method Collection Time Receive d Time (Source) Location / / Volume Laterality 03/02/2018 12:39 03/02/2018 PM CDT 12:48 PM CDT Impressions MUSE - 03/02/2018 12:48 PM CDT Poor data quality Sinus bradycardia Premature atrial complexes Low voltage QRS Right bundle branch block Nonspecific ST and T wave abnormality When compared with ECG of 13-OCT-2017 11 :22, Right bundle branch block has replaced I ncomplete right bundle branch block Narrative This result has an attachment that is no t available. Procedure Note Mani Whitlock M.D. - 03/02/2018Formatt ing of this note might be different from the original. IMPRESSION: Poor data quality Sinus bradycardia Premature atrial complexes Low voltage QRS Right bundle branch block Nonspecific ST and T wave abnormality When compared with ECG of 13-OCT-2017 11 :22, Right bundle branch block has replaced I ncomplete right bundle branch block Leta Sanchez M.D. ECG ORDERABLES Performing Organization Address City/State/ZIP Code Phon e Number MUSE MUSE NA (ABNORMAL) Basic Metabolic Panel (03/02/2018 12:33 PM CDT) P athologist Signature Potassium, S 4.6 3.6 - 5.2 03/02/2018 [facility] mmol/L 4:13 PM T [facility] [place] [facility] Sodium, S 141 135 - 145 03/02/2018 [facility] mmol/L 4:13 PM T [facility] [place] [facility] Chloride, S 102 98 - 107 03/02/2018 [facility] mmol/L 4:13 PM T [facility] [place] [facility] Bicarbonate, S 30 (H) 22 - 29 03/02/2018 [facility] mmol/L 4:[address] [facility] [place] [facility] Anion Gap 9 7 - 15 03/02/2018 [facility] 4:13 PM T [facility] [place] [facility] BUN (Blood Urea 15 8 - 24 03/02/2018 [facility] Nitrogen), S mg/dL 4:13 PM T [facility] [place] [facility] Creatinine 0.96 0.74 - 03/02/2018 [facility] 1.35 mg/dL 4:[address] [facility] [place] [facility] eGFR-Non 80 >=60 03/02/2018 [facility] Black/ mL/min/BSA 4:13 PM T [facility] [place] [facility] Comment: ----ADDITIONAL INFORMATION---- Estimated GFR calculated using the 2009 CKD_EPI creatinine equation. eGFR-Black/ >90 >=60 mL/min/BSA 2017 4:13 PM M [facility] [place] [facility] Comment: ----ADDITIONAL INFORMATION---- Estimated GFR calculated using the 2009 CKD_EPI creatinine equation. Calcium, Total, S 9.5 8.8 - 10.2 mg/dL 03/02/2018 4 :13 PM CDT [facility] [place] [facility] Glucose, S 79 70 - 140 mg/dL 03/02/2018 4:13 PM CDT [facility] [place] [facility] Specimen Anatomical Collection Method Collection Time Receive d Time (Source) Location / / Volume Laterality Blood (Blood, 03/02/2018 12:33 03/02/2018 3:33 Venous) PM CDT PM CDT Leta Sanchez M.D. LAB BLOOD ADD-ON Performing Organization Address City/State/ZIP Code Phon e Number [facility] [address] [place] [address] LAB (ABNORMAL) CBC without Differential (03/02/2018 12:32 PM CDT) [facility] gist Method Time Signature Hemoglobin 13.7 13.2 - 03/02/2018 [facility] 16.6 g/dL 1:01 PM CDT [facility] Hematocrit 41.8 38.3 - 03/02/2018 [facility] 48.6 % 1:01 PM CDT [facility] Erythrocytes 4.76 4.35 - 03/02/2018 [facility] 5.65 1:01 PM CDT HEALTH x10(12)/L [facility] MCV 87.8 78.2 - 03/02/2018 [facility] 97.9 fL 1:01 PM CDT [facility] RBC Distrib Width 14.7 (H) 11.8 - 03/02/2018 [facility] 14.5 % 1:01 PM CDT [facility] Platelet Count 262 135 - 317 03/02/2018 [facility] x10(9)/L 1:01 PM CDT [facility] Leukocytes 7.7 3.4 - 9.6 03/02/2018 [facility] x10(9)/L 1:01 PM CDT [facility] Specimen Anatomical Collection Method Collection Time Receive d Time (Source) Location / / Volume Laterality Blood (Blood, 03/02/2018 12:32 03/02/2018 Venous) PM CDT 12:41 PM CDT Leta Sanchez M.D. LAB BLOOD ADD-ON Performing Organization Address City/State/ZIP Code Phon e Number [facility] [address] [place] [address] LAB DX Chest AP or PA and Lateral [...] arthroplasties. Leta Sanchez M.D. IMG DIAGNOSTIC IMAGING PROCE DIMITRIOS documented in this encounter Visit Diagnoses Diagnosis Pain Chest - Primary Abdominal Pain Diarrhea Coronary Artery Disease (Unspecified) Coronary Stent Status Post Hypertensive Heart And Chronic Kidney Di sease Without Heart Failure And With Stage 2 (Mild) Chronic Kidney Disease Abuse Tobacco Smoking Pain Chest Abdominal Pain Diarrhea Coronary Artery Disease (Unspecified) documented in this encounter Care Teams Crm Marketing Executive Relationship Specialty Start Date End Date Leta Sanchez M.D. PCP - General 10/17/16 10/18/19 documented as of this encounter
--- OUTSIDE RECORDS SUMMARY | 2022-03-29 07:50 | XMS_ITS | Encounter Summary ---
:1950 Author Organization [facility] Address [address] [place] [address] Care Team Providers Name Role Phone Leta Sanchez M.D. Primary Care Provider Reason for Visit Reason Comments Communication Encounter Details Date Type Department Care Team Description 07/28/2017 Clinical Communication Department of Internal Jatinder Camejo, Communication Medicine in [place] [address] [place] [phone] Social History Tobacco Use Types Packs/Day Years [...] How often do you attend nondenominational or buddhist services? 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 - 07/29/2017 4:13 PM CDT Patient scheduled with Dr. Camejo 08-21. Telephone Encounter - Katlyn Crawford APRN, C.NTonja - 07/29/2017 1:10 PM CDT He was due for cysto in June. Telephone Encounter - Shellie Fitzgerald L.P.N. - 07/29/2017 12:39 PM CDT Patient states he did not have any urinary issues, no urgency or blood in the urine. Does patient need to up his appointment. Telephone Encounter - Pat Manzanares - 07/28/2017 3:34 PM CDT Patient is scheduled with Dr Camejo on October 02. Does this appt need to be scheduled sooner? Please advise, and contact pt with any changes needed, thank you. documented in this encounter Plan of Treatment Upcoming Encounters Date Type Specialty Care Team Description 04/12/2022 Office Visit Cardiovascular Disease Simone Gooden AP RN, C.N.P. [address] [phone] (Wo rk) documented as of this encounter Visit Diagnoses Not on filedocumented in this encounter Additional Health Concerns Assessment Noted Time PHQ-9 Depression Total Score: 5 07/23/2017 9:28 AM CDT documented as of this encounter Care Teams School Transportation Director Relationship Specialty Start Date End Date Leta Sanchez M.D. PCP - General 10/17/16 10/18/19 documented as of this encounter
--- OUTSIDE RECORDS SUMMARY | 2022-03-29 07:50 | XMS_ITS | Encounter Summary ---
:1950 Author Organization [facility] Address [address] [place] [address] Care Team Providers Name Role Phone Leta Sanchez M.D. Primary Care Provider Reason for Visit Reason Comments Follow-up one month follow-up from - nose bleed yesterday Outpatient (Routine) - Closed Specialty Diagnoses / Procedures Referred By Contact Refer red To Contact [facility] Internal Diagnoses par review Leta Sanchez M.D. [facility] Medicine Procedures CIM EST [address], [address] [place] [address] Referral ID Status Reason Start Date Expiration Date Visits Requ ested Visits Authorized [id number] Closed 05/01/2017 10/28/2017 1 1 Encounter Details Date Type Department Care Team Description 06/02/2017 Office Visit Department of Leta Sanchez M.D . Coronary Artery Disease (Primary Dx); [facility] [address], Cor onary Stent Status Post; Medicine in [place] [address] Hypertensive Heart And Chronic Kidney Di sease Without Heart Failure And With Stage 2 (Mild) Chronic Kidney Disease; [place], [place] Hyperlipidemia; [address] [address] Malignant Neoplasm Of Bladder Lateral Wa ll (HCC); [place] Screenin g Examination Prostate Cancer; [address] Screening Examination Diabet es Mellitus; [phone] High Risk Medic ation Social History Tobacco Use Types Packs/Day Years Used Date Smoking Tobacco: Some Days Cigarettes L ast attempted to quit: 03/27/2017 Smokeless Tobacco: Never Alcohol Habits Answer [...] How often do you attend adventism or latter day services? 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 documented as of this encounter Last Filed Vital Signs Vital Sign Reading Time Taken Comments Blood Pressure 135/68 06/02/2017 10:47 AM EPIC AMBULATORY ANALYSTS Pulse 75 06/02/2017 10:47 AM EPIC AMBULATORY ANALYSTS Temperature - - Respiratory Rate 16 06/02/2017 10:47 AM EPIC AMBULATORY ANALYSTS Oxygen Saturation - - Inhaled Oxygen Concentration - - Weight 96.6 kg (212 lb 15.4 oz) 06/02/2017 10:47 AM EPIC AMBULATORY ANALYSTS Height 173 cm (5' 8.11) 06/02/2017 10:50 AM EPIC AMBULATORY ANALYSTS Body Mass Index 32.28 06/02/2017 10:47 AM EPIC AMBULATORY ANALYSTS documented in this encounter Progress Notes Leta Sanchez M.D. - 06/02/2017 11:00 AM CST SUBJECTIVE CHIEF COMPLAINT/REASON FOR VISIT 1. Followup on chronic medical problems. 2. Discuss CT results. HISTORY OF PRESENT ILLNESS Seven Salazar is a 67 y.o. male who presents to the clinic today for a one month followup from 05/01/2017. At his last visit, we ordered CT angiogram of the abdomen and pelvis to look for underlying mesenteric ischemia causing epigastric pain. CT angiogram of the abdomen and pelvis from 05/30/2017 showed: 1. Widely patent celiac artery, SMA, and SYLVIA, as well as the portal and mesenteric veins. No evidence of mesenteric ischemia. 2. Mild colonic diverticulosis without evidence of diverticulitis. 3. Extensive coronary artery calcifications. He has no epigastric pain. He denies any chest pain. He goes to cardiac rehab three times a week forcoronary artery disease and lifts weights three times a week. He mentioned that he had a left-sided nosebleed yesterday morning that occurred intermittently for six hours. He used ice packs on his nose, which seemed to help. He has urinary bladder cancer and follows with urologist. He has no symptoms, but he continues to smoke tobacco. Additionally, he is due for physical exam. There are no additional questions, concerns, or [...] mg total) by mouth at bedtime. From [place] discharge on 03/25. 90 tablet 3 ??? clopidogrel (for_PLAVIX) 75 mg tablet Take 1 tablet (75 mg total) by mouth daily. For 1 year until 03/24/2018. 90 tablet 3 ??? lisinopril (for_PRINIVIL,ZESTRIL) 20 mg tablet Take 1 tablet (20 mg total) by mouth every morning. 90 tablet 3 ??? metoprolol succinate (for_TOPROL-XL) 25 mg 24 hr tablet Take 12.5 mg by mouth at bedtime. Do notcrush or chew. ??? nitroglycerin (for_NITROSTAT) 0.4 mg [...] 07/03/2015 ??? Bronchitis Chronic (HCC) 07/03/2015 ??? 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 Cyst Renal 02/05/2016 ??? [...] Kidney Disease 03/31/2017 ??? Insomnia 08/26/2016 ??? Ischemia Mesenteric Chronic (HCC) 03/31/2017 ??? Lipoma Skin 02/12/2010 ??? 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HCC) 03/18/2010 ??? 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 Migraine Headache 07/01/2011 ??? Myalgia 04/17/2015 ??? Non-ST Elevation Myocardial Infarction (HCC) 03/31/2017 ??? Obesity NOS 02/15/2010 ??? Pain Back 07/03/2015 ??? Polymyalgia Rheumatica (HCC) 04/17/2015 ??? Presbyopia 10/07/2011 ??? Reflux Esophageal 12/24/2011 ??? Stricture Urethra 02/05/2016 Past Surgical History: [...] 11/26/2011 ??? EXCISION LIPOMA 02/19/2010 ??? EXCISION OF LESION OF SKIN 06/04/2013 Dermal nevus on left cheek/nasolabial fold ??? EXCISION OF LIPOMA 07/16/1999 ? ? HEAD & NECK SKIN LESION EXCISIONAL BIOPSY 04/11/1998 Excision of benign lesion of scalp and neck ??? TRANSURETHRAL RESECTION OF BLADDER TUMOR 02/19/2010 Non invasive papillary urothelial carcinoma, Grade 1 of 3 SOCIAL HISTORY Social History ??? Marital status: Spouse name: N/A ??? Number of children: N/A ??? Years of education: N/A Social History Main Topics ??? Smoking status: Current Some Day Smoker Types: Cigarettes Last attempt to quit: 03/27/2017 ??? Smokeless tobacco: Never Used ??? Alcohol use None ??? Drug use: Unknown ??? Sexual activity: Not Asked FAMILY HISTORY Family History Problem Relation Age of Onset ??? Hypertension Mother ??? Cataracts Mother ??? Glaucoma Mother ??? Hypertension Brother ??? Asthma Brother ??? Coronary artery disease Brother ??? Heart attack Brother ??? Hearing loss Father ??? Parkinsons disease Father ??? Pancreatic cancer Father ??? Liver cancer Father ??? Lung cancer Sister OBJECTIVE VITAL SIGNS Vitals: 06/02/17 1047 06/02/17 1050 BP: 135/68 Patient Position: Sitting Pulse: 75 Resp: 16 Height: 173 cm Weight: 96.6 kg PHYSICAL EXAMINATION GENERAL: Patient is sitting. No distress. Able to talk without interruption. HEAD: No facial rash, asymmetry or sinus tenderness. ENT: No nasal congestion, discharge or bleeding. There is a speck of dried blood in left nostril. DIAGNOSTICS LABORATORY: 05/26/2017 08:33 Sodium, S 139 Potassium, S 5.0 Chloride, S 102 Bicarbonate, S 25 Anion Gap 12 Bld Urea Nitrog(BUN), S 24 Creatinine 0.96 Calcium, Total, S 9.8 Glucose 100 eGFR Non- 81 eGFR- >90 ASSESSMENT / PLAN #1 Coronary Artery Disease #2 Status Post Coronary Stent with RENETTA to the RCA and the LCX on 03/22/2017 and to proximal and middle LAD on 03/24/2017 at [facility] He is stable from a cardiac standpoint. There is no evidence of mesenteric ischemia per CT angiogramof the abdomen and pelvis. There is no angina. Patient does not need to take Nitroglycerin. Need to continue current medications and cardiovascular risk factor modification. He needs to take Plavix 75 mg daily for 1 year (until 03/24/2018). 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 Patient is stable from a cardiac standpoint. Need to continue sodium controlled diet and current medication. Monitor blood pressure regularly at home. Blood pressure goal is less than 140/90 mmHg. Need to continue cardiovascular risk factors modification. #4 Hyperlipidemia There are no side effects from Lipitor. Patient was advised to continue low cholesterol, low fat diet, regular exercise, and current medication. Need to check fasting lipid profile every 12 months. #5 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HCC) He has no symptoms. He needs to follow with Dr. Camejo, Urologist, regularly. I advised him to quit smoking. #6 Followup Visit Return to the clinic in 3 months for Medicare annual wellness exam, review medical problems, medication renewal, and following tests prior to appointment: BMP, CBC, CK, HFP, PSA, and TSH. This document serves as a record of services personally performed by Dr. Leta Sanchez. It was created on their behalf by Juan Ramos, a trained medical registrar. The creation of this record is based on the scribe's personal observations and the provider's statements to them. This document has been checked and approved by the attending provider. AMBULATORY ANALYSTS documented in this encounter Plan of Treatment Upcoming Encounters Date Type Specialty Care Team Description 04/12/2022 Office Visit Cardiovascular Disease Simone Gooden AP RN, C.N.P. [address] [phone] (Wo rk) documented as of this encounter Results PSA (Prostate-Specific Antigen) Screen (09/08/2017 7:42 AM CDT) athologist Signature Prostate-Specif 1.5 <=4.5 09/08/2017 [facility] ic Ag ng/mL 11:34 AM CDT [facility] Comment: Biotin has been identified by the heri garcia as a potential interfering substance. ??Higher concentr ations of biotin may be found in multivitamins, hair/nail supple ments, and workout supplements. ??If the result does not ma [facility] clinical observations, repeat testing after patient refrains fr om the use of supplements for at least 12 hours. ----ADDITIONAL INFORMATION---- The testing method is an electrochemilum inescence assay manufactured by [employer] and performed on the Modular or Alexis system . Values obtained with different assay met hods or kits may be different and cannot be used inte rchangeably. Test results cannot be interpreted as ab solute evidence for the presence or absence of malignant disease. Specimen Anatomical Collection Method Collection Time Receive d Time (Source) Location / / Volume Laterality Blood 09/08/2017 7:42 AM 8 CDT 10:51 AM CDT Leta Sanchez M.D. LAB BLOOD ADD-ON Performing Organization Address City/State/ZIP Code Phon e Number [facility] [address] [place] [address] LAB S-TSH (Thyroid-Stimulating Hormone - Sensitive) (09/08/2017 7:42 AM CDT) athologist Signature TSH, Sensitive 1.9 0.3 - 4.2 09/08/2017 [facility] mIU/L 11:34 AM CDT [facility] Comment: Biotin has been identified by the heri garcia as a potential interfering substance. ??Higher concentr ations of biotin may be found in multivitamins, hair/nail supple ments, and workout supplements. ??If the result does not ma [facility] clinical observations, repeat testing after patient refrains fr om the use of supplements for at least 12 hours. Specimen Anatomical Collection Method Collection Time Receive d Time (Source) Location / / Volume Laterality Blood 09/08/2017 7:42 AM 8 CDT 10:51 AM CDT Leta Sanchez M.D. LAB BLOOD ADD-ON Performing Organization Address City/State/ZIP Code Phon e Number [facility] [address] [place] [address] LAB Hepatic Function Panel (09/08/2017 7:42 AM CDT) Patholo gist Method Time Signature Bilirubin, Total, S 0.2 <=1.2 09/08/2017 [facility] mg/dL 11:46 AM CDT [facility] Bilirubin, Direct, S <0.2 0.0 - 0.3 09/08/2017 [facility] mg/dL 11:49 AM CDT [facility] Aspartate 19 8 - 48 09/08/2017 [facility] Aminotransferase U/L 11:46 AM [facility] Alanine 10 7 - 55 09/08/2017 [facility] Aminotransferase U/L 11:46 AM [facility] Alkaline 108 45 - 115 09/08/2017 [facility] Phosphatase, S U/L 11:46 AM T [facility] Albumin, S 4.0 3.5 - 5.0 09/08/2017 [facility] g/dL 11:46 AM CDT [facility] Protein, Total, S 6.9 6.3 - 7.9 09/08/2017 [facility] g/dL 11:46 AM T [facility] Specimen Anatomical Collection Method Collection Time Receive d Time (Source) Location / / Volume Laterality Blood 09/08/2017 7:42 AM 8 CDT 10:51 AM CDT Leta Sanchez M.D. LAB BLOOD ADD-ON Performing Organization Address City/State/ZIP Code Phon e Number [facility] [address] [place] [address] LAB (ABNORMAL) BMP (Basic Metabolic Panel) (09/08/2017 7:42 AM CDT) P athologist Signature Potassium, S 4.4 3.6 - 5.2 09/08/2017 [facility] mmol/L 11:46 AM [facility] [employer] [facility] Sodium, S 143 135 - 145 09/08/2017 [facility] mmol/L 11:46 AM [facility] Chloride, S 101 98 - 107 09/08/2017 [facility] mmol/L 11:46 AM [facility] [employer] [facility] Bicarbonate, S 30 (H) 22 - 29 09/08/2017 [facility] mmol/L 11:46 AM [facility] [employer] [facility] Anion Gap 12 7 - 15 09/08/2017 [facility] 11:46 AM [facility] [employer] [facility] BUN (Blood Urea 20 8 - 24 09/08/2017 [facility] Nitrogen), S mg/dL 11:46 AM [facility] [employer] Creatinine 0.88 0.74 - 09/08/2017 [facility] 1.35 mg/dL 11:46 AM [facility]- [employer] LAB eGFR-Non 88 >=60 09/08/2017 [facility] Black/ mL/min/BSA 11:46 AM [facility] [employer] [facility] [place] [employer] [facility] Comment: ----ADDITIONAL INFORMATION---- Estimated GFR calculated using the 2009 CKD_EPI creatinine equation. eGFR-Black/ >90 >=60 mL/min/BSA 2017 11:46 [facility]- [facility] Comment: ----ADDITIONAL INFORMATION---- Estimated GFR calculated using the 2009 CKD_EPI creatinine equation. Calcium, Total, S 9.8 8.8 - 10.2 mg/dL 09/08/2017 11:4 6 AM [facility] [employer] [facility] Glucose, S 88 70 - 140 mg/dL 09/08/2017 11:46 AM [facility] [employer] [facility] Specimen Anatomical Collection Method Collection Time Receive d Time (Source) Location / / Volume Laterality Blood 09/08/2017 7:42 AM 8 CDT 10:51 AM CDT Leta Sanchez M.D. LAB BLOOD ADD-ON Performing Organization Address City/State/ZIP Code Phon e Number [facility] [address] [place] [address] LAB CK (Creatine Kinase) (09/08/2017 7:42 AM CDT) P athologist Signature Creatine Kinase 130 39 - 308 09/08/2017 [facility] (CK), S U/L 2:06 PM T [facility] Specimen Anatomical Collection Method Collection Time Receive d Time (Source) Location / / Volume Laterality Blood 09/08/2017 7:42 AM 8 1:45 CDT PM CDT Leta Sanchez M.D. LAB BLOOD ADD-ON Performing Organization Address City/State/ZIP Code Phon e Number [facility]- [address] [place] [address] KIP LAB (ABNORMAL) CBC without Differential (09/08/2017 7:42 AM CDT) [facility] Method Time Signature Hemoglobin 12.9 (L) 13.2 - 09/08/2017 [facility] 16.6 g/dL 9:31 AM [facility] Hematocrit 39.4 38.3 - 09/08/2017 [facility] 48.6 % 9:31 AM [facility] Erythrocytes 4.73 4.35 - 09/08/2017 [facility] 5.65 9:31 AM [facility] x10(12)/L [facility] MCV 83.3 78.2 - 09/08/2017 [facility] 97.9 fL 9:31 AM LAB RBC Distrib Width 16.4 (H) 11.8 - 09/08/2017 [facility] 14.5 % 9:31 AM [facility] Platelet Count 362 (H) 135 - 317 09/08/2017 [facility] x10(9)/L 9:31 AM [facility] Leukocytes 8.0 3.4 - 9.6 09/08/2017 [facility] x10(9)/L 9:31 AM LAB Specimen Anatomical Collection Method Collection Time Receive d Time (Source) Location / / Volume Laterality Blood 09/08/2017 7:42 AM 8 7:44 CDT AM CDT Leta Sanchez M.D. 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 PCP - General 10/17/16 10/18/19 documented as of this encounter
--- OUTSIDE RECORDS SUMMARY | 2022-03-29 07:50 | XMS_ITS | Encounter Summary ---
:1950 Author Organization [facility] Address [address] [place] [address] Care Team Providers Name Role Phone Leta Sanchez M.D. Primary Care Provider Encounter Details Date Type Department Care Team Description 07/22/2017 Nurse Triage Department of Kelley Espinoza [facility], [facility], R.N. in [place], [place] [address] [facility] [address] [address] [place] [address] [phone] Social History Tobacco Use Types Packs/Day Years [...] How often do you attend adventism or episcopal services? 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 [address] [address] [phone] (Wo rk) documented as of this encounter Visit Diagnoses Not on filedocumented in this encounter Additional Health Concerns Assessment Noted Time PHQ-9 Depression Total Score: 2 05/01/2017 8:09 AM PICKER OPERATOR documented as of this encounter Care Teams Quality Improvement Coordinator (Rn) Relationship Specialty Start Date End Date Leta Sanchez M.D. PCP - General 10/17/16 10/18/19 documented as of this encounter
--- OUTSIDE RECORDS SUMMARY | 2022-03-29 07:50 | XMS_ITS | Encounter Summary ---
:1950 Author Organization [facility] Address [address] [place] [address] Care Team Providers Name Role Phone Leta Sanchez M.D. Primary Care Provider Reason for Visit Reason Onset Date Comments Medicare Annual Wellness Visit Subsequent 06/26/2017 Encounter Details Date Type Department Care Team Description 06/26/2017 Clinical Communication Department of Carlene Love Annual [facility] L, R.N. Wellness Visit Medicine in [address] [place], [place] [address] [facility] [place] [address] [place], [place] [phone] [address] (Work) [phone] Social History Tobacco Use Types Packs/Day Years [...] week 04/16/2019 How often do you attend tenriism or jewish services? 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 - 06/26/2017 5:27 PM CST 09/08/2017 appointment is for Medicare annual wellness visit, review medical problems and renew medications. He will do fasting blood test on 09/01/2017. STIAN SCIENCE PRACTITIONER Telephone Encounter - Carlene Love R.N. - 06/26/2017 2:58 PM CST Patient is scheduled to see you on 09/08/17. He has Labs ordered and is scheduled for Lab appointment on 09/01/17. His last Annual Wellness visit with you was on 02/05/16. His September appointment is only a 3 month check. Do you want to add any labs and change this to his annual wellness visit? STIAN SCIENCE PRACTITIONER documented in this encounter Plan of Treatment Upcoming Encounters Date Type Specialty Care Team Description 04/12/2022 Office Visit Cardiovascular Disease Simone Gooden AP RN, C.N.P. [address] [address] [phone] (Wo rk) documented as of this encounter Visit Diagnoses Not on filedocumented in this encounter Additional Health Concerns Assessment Noted Time PHQ-9 Depression Total Score: 2 05/01/2017 8:09 AM CHRISTIAN SCIENCE PRACTITIONER documented as of this encounter Care Teams Principal Process Engineer Relationship Specialty Start Date End Date Leta Sanchez M.D. PCP - General 10/17/16 10/18/19 documented as of this encounter
--- OUTSIDE RECORDS SUMMARY | 2022-03-29 07:50 | XMS_ITS | Encounter Summary ---
:1950 Author Organization [facility] Address [address] [place] [address] Care Team Providers Name Role Phone Leta Sanchez M.D. Primary Care Provider Encounter Details Date Type Department Care Team Description 09/08/2017 Hospital Encounter Department of Leta Sanchez M.D. 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 From [place] discharge on 03/25. clopidogrel (for_PLAVIX) Take 1 [...] oral powder documented as of this encounter Plan of Treatment Upcoming Encounters Date Type Specialty Care Team Description 04/12/2022 Office Visit Cardiovascular Disease Simone Gooden AP RN, C.N.P. [address] [phone] (Wo rk) documented as of this encounter Procedures Procedure Name Priority Date/Time Associated Diagnosis Comme nts HEPATIC FUNCTION Routine 09/08/2017 7:42 AM Coronary Artery Re sults for this PANEL, S CDT Disease procedure are in Hypertensive Heart the resul ts And Chronic Kidney section. Disease Without Heart Failure And With Stage 2 (Mild) Chronic Kidney Disease Hyperlipidemia High Risk Medication PROSTATE-SPECIFIC Routine 09/08/2017 7:42 AM Screening Examina tion Results for this AG (PSA) SCRN, S CDT Prostate Cancer procedur e are in the results section. CBC WITHOUT Routine 09/08/2017 7:42 AM Coronary Artery Result s for this DIFFERENTIAL, B CDT Disease procedure are in Hypertensive Heart the resul ts And Chronic Kidney section. Disease Without Heart Failure And With Stage 2 (Mild) Chronic Kidney Disease THYROID-STIMULATING Routine 09/08/2017 7:42 AM Hypertensive He art Results for this HORMONE-SENSITIVE CDT And Chronic Kidney proc edure are in (S-TSH) Disease Without Heart the re sults Failure And With section. Stage 2 (Mild) Chronic Kidney Disease Hyperlipidemia CREATINE KINASE Routine 09/08/2017 7:42 AM Coronary Artery Res ults for this (CK), S CDT Disease procedure are in Hypertensive Heart the resul ts And Chronic Kidney section. Disease Without Heart Failure And With Stage 2 (Mild) Chronic Kidney Disease Hyperlipidemia High Risk Medication BASIC METABOLIC Routine 09/08/2017 7:42 AM Coronary Artery Res ults for this PANEL, S/P CDT Disease procedure are in Hypertensive Heart the resul ts And Chronic Kidney section. Disease Without Heart Failure And With Stage 2 (Mild) Chronic Kidney Disease Hyperlipidemia High Risk Medica tion Screening Examination Diabetes Mellitus documented in this encounter Results PSA (Prostate-Specific Antigen) Screen (09/08/2017 7:42 AM CDT) P athologist Signature Prostate-Specif 1.5 <=4.5 09/08/2017 [facility] ic Ag ng/mL 11:34 AM CDT [facility] Comment: Biotin has been identified by the heri garcia as a potential interfering substance. ??Higher concentr ations of biotin may be found in multivitamins, hair/nail supple ments, and workout supplements. ??If the result does not ma tc clinical observations, repeat testing after patient refrains [...] M.D. LAB BLOOD ADD-ON Performing Organization Address [facility] Phon e Number [facility] [address] [place] [id number] LAB S-TSH (Thyroid-Stimulating Hormone - Sensitive) (09/08/2017 7:42 AM CDT) P athologist Signature TSH, Sensitive 1.9 0.3 - 4.2 09/08/2017 [facility] mIU/L 11:34 AM CDT [facility] Comment: Biotin has been identified by the heri garcia as a potential interfering substance. ??Higher concentr ations of biotin may be found in multivitamins, hair/nail supple ments, and workout supplements. ??If the result does not ma tc clinical observations, repeat testing after patient refrains fr om the use of supplements for at least 12 hours. Specimen Anatomical Collection Method Collection Time Receive d Time (Source) Location / / Volume Laterality Blood 09/08/2017 7:42 AM 8 CDT 10:51 AM CDT Leta Sanchez M.D. LAB BLOOD ADD-ON Performing Organization Address [facility] Phon e Number [facility] [address] [place] [id number] LAB Hepatic Function Panel (09/08/2017 7:42 AM CDT) Patholo gist Method Time Signature Bilirubin, Total, S 0.2 <=1.2 09/08/2017 [facility] mg/dL 11:46 AM CDT [facility] Bilirubin, Direct, S <0.2 0.0 - 0.3 09/08/2017 [facility] mg/dL 11:49 AM CDT [facility] Aspartate 19 8 - 48 09/08/2017 [facility] Aminotransferase U/L 11:46 AM CDT [facility] Alanine 10 7 - 55 09/08/2017 [facility] Aminotransferase U/L 11:46 AM CDT [facility] Alkaline 108 45 - 115 09/08/2017 [facility] Phosphatase, S U/L 11:46 AM CDT [facility] Albumin, S 4.0 3.5 - 5.0 09/08/2017 [facility] g/dL 11:46 AM T [facility] Protein, Total, S 6.9 6.3 - 7.9 09/08/2017 [facility] g/dL 11:46 AM T [facility] Specimen Anatomical Collection Method Collection Time Receive d Time (Source) Location / / Volume Laterality Blood 09/08/2017 7:42 AM 8 CDT 10:51 AM CDT Leta Sanchez M.D. LAB BLOOD ADD-ON Performing Organization Address City/State/ZIP Code Phon e Number [facility] [address] [place] [phone] LAB (ABNORMAL) BMP (Basic Metabolic Panel) (09/08/2017 7:42 AM CDT) P athologist Signature Potassium, S 4.4 3.6 - 5.2 09/08/2017 [facility] mmol/L 11:46 AM CDT [facility] Sodium, S 143 135 - 145 09/08/2017 [facility] mmol/L 11:46 AM CDT [facility] Chloride, S 101 98 - 107 09/08/2017 [facility] mmol/L 11:46 AM CDT [facility] Bicarbonate, S 30 (H) 22 - 29 09/08/2017 [facility] mmol/L 11:46 AM [facility] [employer] LAB Anion Gap 12 7 - 15 09/08/2017 [facility] 11:46 AM [facility] BUN (Blood Urea 20 8 - 24 09/08/2017 [facility] Nitrogen), S mg/dL 11:46 AM [facility] [employer] LAB Creatinine 0.88 0.74 - 09/08/2017 [facility] 1.35 mg/dL 11:46 AM [facility] eGFR-Non 88 >=60 09/08/2017 [facility] Black/ mL/min/BSA 11:46 AM [facility] [employer]two [facility] Malaysian [facility] MedicalATOImage[facility]isionA LAB Comment: ----ADDITIONAL INFORMATION---- Estimated GFR calculated using the 2009 CKD_EPI creatinine equation. eGFR-Black/ >90 >=60 mL/min/BSA 2017 11:46 [facility]- [employer] LAB Comment: ----ADDITIONAL INFORMATION---- Estimated GFR calculated using the 2009 CKD_EPI creatinine equation. Calcium, Total, S 9.8 8.8 - 10.2 mg/dL 09/08/2017 11:4 6 AM [facility] [employer] LAB Glucose, S 88 70 - 140 mg/dL 09/08/2017 11:46 AM [facility] Specimen Anatomical Collection Method Collection Time Receive d Time (Source) Location / / Volume Laterality Blood 09/08/2017 7:42 AM 8 CDT 10:51 AM CDT Leta Sanchez M.D. LAB BLOOD ADD-ON Performing Organization Address City/State/ZIP Code Phon e Number [facility] [address] [place] [address] LAB CK (Creatine Kinase) (09/08/2017 7:42 AM CDT) P athologist Signature Creatine Kinase 130 39 - 308 09/08/2017 [facility] (CK), S U/L 2:06 PM [facility] Specimen Anatomical Collection Method Collection Time Receive d Time (Source) Location / / Volume Laterality Blood 09/08/2017 7:42 AM 8 1:45 CDT PM CDT Leta Sanchez M.D. LAB BLOOD ADD-ON Performing Organization Address City/State/ZIP Code Phon e Number [facility]- [address] [place] [address] [place] LAB (ABNORMAL) CBC without Differential (09/08/2017 7:42 AM CDT) [facility] gist Method Time Signature Hemoglobin 12.9 (L) 13.2 - 09/08/2017 [facility] 16.6 g/dL 9:31 AM CDT [facility] Hematocrit 39.4 38.3 - 09/08/2017 [facility] 48.6 % 9:31 AM CDT [facility] Erythrocytes 4.73 4.35 - 09/08/2017 [facility] 5.65 9:31 AM CDT [facility] x10(12)/L [facility] MCV 83.3 78.2 - 09/08/2017 [facility] 97.9 fL 9:31 AM T [facility] [employer] LAB RBC Distrib Width 16.4 (H) 11.8 - 09/08/2017 [facility] 14.5 % 9:31 AM T [facility] [employer] LAB Platelet Count 362 (H) 135 - 317 09/08/2017 [facility] x10(9)/L 9:31 AM T [facility] Leukocytes 8.0 3.4 - 9.6 09/08/2017 [facility] x10(9)/L 9:31 AM T [facility] Specimen Anatomical Collection Method Collection Time Receive d Time (Source) Location / / Volume Laterality Blood 09/08/2017 7:42 AM 8 7:44 CDT AM CDT Leta Sanchez M.D. LAB BLOOD ADD-ON Performing Organization Address City/State/ZIP Code Phon e Number [facility]- [address] [place] [address] [place] [facility]- [address] [place], [place] [address] , [facility] documented in this encounter Visit Diagnoses Diagnosis Coronary Artery Disease (Unspecified) Hypertensive Heart And Chronic Kidney Di sease Without Heart Failure And With Stage 2 (Mild) Chronic Kidney Disease Hyperlipidemia High Risk Medication Screening Examination Diabetes Mellitus Screening Examination Prostate Cancer documented in this encounter Additional Health Concerns Assessment Noted Time PHQ-9 Depression Total Score: 5 07/23/2017 9:28 AM CDT documented as of this encounter Care Teams Pourer Relationship Specialty Start Date End Date Leta Sanchez M.D. PCP - General 10/17/16 10/18/19 documented as of this encounter
--- OUTSIDE RECORDS SUMMARY | 2022-03-29 07:50 | XMS_ITS | Encounter Summary ---
:1950 Author Organization [facility] Address [address] [place] [address] Care Team Providers Name Role Phone Leta Sanchez M.D. Primary Care Provider Reason for Visit Reason Comments Communication Encounter Details Date Type Department Care Team Description 07/25/2017 Clinical Communication Department of [facility] Leta Sanchez M.D. Communication Medicine[address] [place], [place] [address] [address] [place], [place] [phone] (Fax) [phone] Social History Tobacco Use Types Packs/Day Years [...] How often do you attend anglican or baptism services? 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 - 07/25/2017 2:42 PM CDT See post Hospital Follow up communication message dated 07/25/17. Telephone Encounter - Ra Ramiroquel Moe - 07/25/2017 2:02 PM CDT Patient returning phone call, please advise. documented in this encounter Plan of Treatment Upcoming Encounters Date Type Specialty Care Team Description 04/12/2022 Office Visit Cardiovascular Disease Simone Gooden AP RN, C.N.P. [address] [phone] ( rk) documented as of this encounter Visit Diagnoses Not on filedocumented in this encounter Additional Health Concerns Assessment Noted Time PHQ-9 Depression Total Score: 5 07/23/2017 9:28 AM CDT documented as of this encounter Care Teams Electric Deicer Assembler Relationship Specialty Start Date End Date Leta Sanchez M.D. PCP - General 10/17/16 10/18/19 documented as of this encounter
--- OUTSIDE RECORDS SUMMARY | 2022-03-29 07:50 | XMS_ITS | Encounter Summary ---
:1950 Author Organization [facility] Address [address] [place] [address] Care Team Providers Name Role Phone Leta Sanchez M.D. Primary Care Provider Reason for Visit Reason Onset Date Comments Post Hospital Follow-up 07/25/2017 [facility] - NSTEMI Encounter Details Date Type Department Care Team Description 07/25/2017 Clinical Communication Department of [facility] Internal L, R.N. Follow-up Medicine in [address] ([facility] 07/24/17 - NSTEMI) [place], [place] [address] [facility] [address] [place], [place] [phone] [phone] (Work) [phone] Social History Tobacco Use Types Packs/Day Years [...] How often do you attend pentecostalism or pentecostalism services? 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 - 07/25/2017 9:37 AM CDT SUBJECTIVE REASON FOR CALL Post-Hospital follow-up phone call with patient after [facility] Salazar discharge on 07/24/17 for NSTEMI. 1st attempt 07/25/17 @ 9:46 am. Left message to return call. General Health [facility] Salazar notes today he is feeling better than when he left the hospital. Patient confirms that the condition for which he was admitted has resolved. Home management assessment post discharge: Patient states he has no questions or concerns. Actions taken: none Infection related to a resistant organism: no Surgical/Procedural Follow-up Medication Status Medication status assessment: is taking new medications as prescribed Medication management: Patient states medication is self managed. MTM Referral warranted: no Patient's understanding of medication's side effects: Patient recalls and understands all side effects and reactions relating to new medication(s). Medications concerns: none Is patient taking any of the following: Controlled substances: no Taking as instructed: n/a Experiencing side effects: n/a Antibiotics: no Labs scheduled: n/a Taking as instructed:n/a Experiencing side effects: n/a Diabetic medications: no Type: n/a Home glucose monitoring: n/a Difficulties managing diabetes since discharge: n/a Anticoagulants: no Type: Antiplatelet therapy: Plavis and Aspirin. Taking as instructed: yes Home Care/Equipment Home care ordered: no Activities of Daily Living Has activities of daily living changed since hospitalization: no Ambulation Has ambulation changed since hospitalization: no Difficulty ambulating: no Follow-Up Appointment Follow-up appointment scheduled? yes Date of appointment: 07/28/17 Does patient plan to go to the appointment?: yes Concerns about getting to the appointment: issues getting to your appointment: none General Care and Feedback Actions: none Patient is doing well, went to work this morning, did encourage him to take it easy and get some rest. He agreed. He does want to discuss supportive measures with tobacco cessation, he is currently 5 days tobacco free. He did inquire about being overdue for his cystoscopy with Dr. Camejo, I did talk with scheduling and they are working on it, the order from [facility] did not roll over to [facility]. Will hopefully have resolution and be able to schedule when he is in on Friday. Post-Hospital Assessment: Areas for hospital feedback: Post hospital near miss assessment: none documented in this encounter Plan of Treatment Upcoming Encounters Date Type Specialty Care Team Description 04/12/2022 Office Visit Cardiovascular Disease Simone Gooden AP RN, C.N.P. [address] [phone] (Wo rk) documented as of this encounter Visit Diagnoses Not on filedocumented in this encounter Additional Health Concerns Assessment Noted Time PHQ-9 Depression Total Score: 5 07/23/2017 9:28 AM CDT documented as of this encounter Care Teams Starcher And Tenter Range Feeder Relationship Specialty Start Date End Date Leta Sanchez M.D. PCP - General 10/17/16 10/18/19 documented as of this encounter
--- OUTSIDE RECORDS SUMMARY | 2022-03-29 07:50 | XMS_ITS | Encounter Summary ---
:1950 Author Organization [facility] Address [address] [place] [address] Care Team Providers Name Role Phone Leta Sanchez M.D. Primary Care Provider Encounter Details Date Type Department Care Team Description 07/22/2017 - Hospital Encounter HX [facility] Evan Vasquez, 07/24/2017 Javid, Ph.D. [address] [place] [address] Social History Tobacco Use Types Packs/Day Years [...] How often do you attend tenriism or jain services? 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 Pulse 64 07/24/2017 2:30 PM Value from artplus. CDT Temperature - - Respiratory Rate 23 07/24/2017 3:00 PM Value from C hartplus. CDT Oxygen Saturation - - Inhaled Oxygen - - Concentration Weight 91.9 kg (202 lb 9.6 07/24/2017 7:15 AM Value fro m Chartplus. oz) CDT Height 171.5 cm (5' 7.52) 07/22/2017 3:00 PM CDT Body Mass Index 31.25 07/22/2017 3:00 PM CDT documented in this encounter Medications at Time of Discharge [...] total) by mouth at tablet bedtime. From [facility] discharge on 03/25. clopidogrel (for_PLAVIX) Take 1 tablet (75 mg 90 tablet 3 0 05/20/2017 05/28/2018 75 mg tablet total) by mouth daily. For 1 year until 03/24/2018. lisinopril Take 1 tablet (20 mg 90 tablet 3 05/20/201705/06 (for_PRINIVIL,ZESTRIL) total) by mouth every 20 mg tablet morning. metoprolol succinate Take 0.5 tablets 45 tablet 3 8 07/28/2017 (for_TOPROL-XL) 25 mg 24 (12.5 mg total) by hr tablet mouth at bedtime. Do not crush or chew. nitroglycerin [...] mg total) by mouth at capsule bedtime. oseltamivir Take 75 mg by mouth 2 0 07/23/2017 (for_TAMIFLU) 75 mg (two) times a day. capsule Prescribed at [facility] 07/24/17 predniSONE Take 1 tablet by 0 06/10/2016 [...] Gooden AP RN, C.N.P. [address] [place] [phone] (Wo rk) documented as of this encounter Procedures Procedure Name Priority Date/Time Associated Comments Diagnosis ECG Routine 07/24/2017 11:40 Results for this AM CDT procedure are i n the results section. ELECTROLYTE (CHEM 4) Routine 07/24/2017 6:35 AM R esults for this PANEL, S/P CDT procedure are i n the results section. HEPARIN LEVEL ANTI-XA Routine 07/24/2017 6:35 AM Results for this ASSAY, P CDT procedure are i n the results section. CBC WITH DIFFERENTIAL, Routine 07/24/2017 6:35 AM Results for this B CDT procedure are i n the results section. ELECTROLYTE (CHEM 4) Routine 07/23/2017 6:58 AM R esults for this PANEL, S/P CDT procedure are i n the results section. HEPARIN LEVEL ANTI-XA Routine 07/23/2017 6:58 AM Results for this ASSAY, P CDT procedure are i n the results section. CBC WITH DIFFERENTIAL, Routine 07/23/2017 6:58 AM Results for this B CDT procedure are i n the results section. MICROSCOPIC MANUAL Routine 07/23/2017 12:38 Resul ts for this AM CDT procedure are i n the results section. GRAM'S ST, U Routine 07/23/2017 12:38 Results for this AM CDT procedure are i n the results section. URINALYSIS WITH Routine 07/23/2017 12:38 Results for this MICROSCOPIC AM CDT procedure are i n the results section. PROCALCITONIN, S Routine 07/22/2017 11:05 Results for this PM CDT procedure are i n the results section. HEPARIN LEVEL ANTI-XA Routine 07/22/2017 11:05 Re sults for this ASSAY, P PM CDT procedure are i n the results section. INFLUENZA A/B AND RSV, Routine 07/22/2017 9:18 PM Results for this PCR, MISC CDT procedure are i n the results section. HX MICROBIOLOGY REPORTS Routine 07/22/2017 8:26 PM Results for this CDT procedure are i n the results section. HX MICROBIOLOGY REPORTS Routine 07/22/2017 8:12 PM Results for this CDT procedure are i n the results section. ECG Routine 07/22/2017 7:02 PM Results f or this CDT procedure are i n the results section. CARDIAC BIOMARKER Routine 07/22/2017 5:53 PM Resu lts for this PANEL, S CDT procedure are i n the results section. ECG Routine 07/22/2017 5:19 PM Results f or this CDT procedure are i n the results section. LIPID PANEL, S Routine 07/22/2017 4:53 PM Results for this CDT procedure are i n the results section. ELECTROLYTE (CHEM 4) Routine 07/22/2017 4:53 PM R esults for this PANEL, S/P CDT procedure are i n the results section. ACTIVATED PARTIAL Routine 07/22/2017 4:53 PM Resu lts for this THROMBOPLASTIN TIME CDT procedur e are in (APTT), P the results section. PROTHROMBIN TIME (PT), Routine 07/22/2017 4:53 PM Results for this P CDT procedure are i n the results section. CBC WITH DIFFERENTIAL, Routine 07/22/2017 4:53 PM Results for this B CDT procedure are i n the results section. documented in this encounter Results ECG 12 Lead (07/24/2017 11:40 AM CDT) Specimen (Source) Anatomical Collection Method Collection Time Re ceived Time Location / / Volume Laterality 07/24/2017 11:40 AM CDT Narrative HX [facility] CONVERSION - 07/24/2017 12: 21 PM CDT 24Jul2017 11:40 VENTRICULAR RATE 55 Sinus bradycardia Premature atrial complexes Low voltage QRS in limb leads Right bundle branch block When compared with ECG of 22-JUL-2017 19 :02, QRS axis has changed Revised Report [id number]^FATOUMATA DEWEY^ASHER Procedure Note Asher Whitlock M.D., Ph.D. - 8 24Jul2017 11:40 VENTRICULAR RATE 55 Sinus bradycardia Premature atrial complexes Low voltage QRS in limb leads Right bundle branch block When compared with ECG of 22-JUL-2017 19 :02, QRS axis has changed Revised Report [id number]^FATOUMATA DEWEY^ASHER Estiven Martinez M.D. ECG ORDERABLES Performing Organization Address City/State/ZIP Code Phon e Number HX [facility] Heparin Anti-Xa Assay (07/24/2017 6:35 AM CDT) athologist Signature Heparin 0.44 IU/ML [facility] Anti-Xa Assay, [facility] Comment: UFH therapeutic range: ? 0.30-0.70 IU/mL ? LMWH therapeutic range: ? 0.50-1.00 IU/mL ? 0.50-1.00 IU/mL for twice daily dosing ? 1.00-2.00 IU/mL for once daily dosing ? (sample obtained 4-6 hours following sub cutaneous injection) ? LMWH prophylactic range:0.10-0.30 IU/mL ? ADDITIONAL INFORMATIO N ? Heparin Anti-Xa is used to measure hepar in concentrations ? in patients receiving low molecular weig ht heparin (LMWH) ? or unfractionated heparin (UFH). ? Specimen Anatomical Collection Method Collection Time Receive d Time (Source) Location / / Volume Laterality 07/24/2017 6:35 AM 8 6:35 CDT AM CDT Estiven Matrinez M.D. LAB BLOOD NON ADD-ON Performing Organization Address City/State/ZIP Code Phon e Number [facility] LABORATORIES - [address] [place], [place] [address] [facility] (ABNORMAL) CBC with Differential (07/24/2017 6:35 AM CDT) [facility] gist Method Time Signature Erythrocytes 4.77 4.32 - [facility] 5.72 LABORATORIES - X10(12)/L [facility] MCV 82.4 81.2 - [facility] 95.1 FL [facility] RBC Distrib 15.0 11.8 - [facility] Width 15.6 % [facility] Platelet Count 222 150 - 450 [facility] X10(9)/L [facility] Leukocytes 2.9 (L) 3.5 - [facility] 10.5 LABORATORIES - X10(9)/L [facility] Neutrophils 1.21 (L) 1.70 - [facility] 7.00 LABORATORIES - X10(9)/L [facility] Lymphocytes 1.25 0.90 - [facility] 2.90 LABORATORIES - X10(9)/L [facility] Monocytes 0.38 0.30 - [facility] 0.90 LABORATORIES - X10(9)/L [facility] Eosinophils <0.03 (L) 0.05 - [facility] 0.50 LABORATORIES - X10(9)/L [facility] Basophils 0.03 0.00 - [facility] 0.30 LABORATORIES - X10(9)/L [facility] Hemoglobin 12.9 (L) 13.5 - [facility] 17.5 G/DL [facility] Hematocrit 39.3 38.8 - [facility] 50.0 % [facility] Specimen Anatomical Collection Method Collection Time Receive d Time (Source) Location / / Volume Laterality 07/24/2017 6:35 AM 8 6:35 CDT AM CDT Estiven Martinez M.D. LAB BLOOD ADD-ON Performing Organization Address City/[facility] Code Phon e Number [facility] LABORATORIES - [address] [place] [phone] [facility] Electrolyte (Chem 4) Panel (07/24/2017 6:35 AM CDT) Analysis Performed At Patho logist Time Signature Sodium, S 137 135 - 145 [facility] MMOL/L LABORATORIES - [facility] Potassium, S 4.7 3.6 - 5.2 [facility] MMOL/L LABORATORIES - [facility] Creatinine 1.1 0.8 - 1.3 [facility] MG/DL LABORATORIES - [facility] eGFR >60 >60 [facility] Non-Black/Afric ML/MIN/BSA LABORATORIES - [facility] Anion Gap 13 7 - 15 [facility] Glucose, S 75 70 - 140 [facility] MG/DL LABORATORIES - [facility] Chloride, S 101 98 - 107 [facility] MMOL/L LABORATORIES - [facility] HX Bicarbonate, 23 22 - 29 [facility] P/S MMOL/L LABORATORIES - [facility] eGFR >60 >60 [facility] Black/ ML/MIN/BSA LABORATORIES - [facility] BUN (Blood Urea 19 8 - 24 [facility] Nitrogen), S MG/DL [facility] - [facility] Creatinine 1.1 0.8 - 1.3 [facility] MG/DL LABORATORIES - [facility] eGFR >60 >60 [facility] Non-Black/Afric ML/MIN/BSA LABORATORIES - [facility] eGFR-Black/Afri >60 >60 [facility] can Samoan ML/MIN/BSA LABORATORIES - [facility] Specimen Anatomical Collection Method Collection Time Receive d Time (Source) Location / / Volume Laterality 07/24/2017 6:35 AM 8 6:35 CDT AM CDT Estiven Martinez M.D. LAB BLOOD ADD-ON Performing Organization Address City/[facility] Code Phon e Number [facility] LABORATORIES - [address] [place] [phone] [facility] (ABNORMAL) CBC with Differential (07/23/2017 6:58 AM CDT) Patholo gist Method Time Signature Hemoglobin 12.8 (L) 13.5 - [facility] 17.5 G/DL LABORATORIES - [facility] Hematocrit 37.9 (L) 38.8 - [facility] 50.0 % LABORATORIES - [facility] Erythrocytes 4.67 4.32 - [facility] 5.72 LABORATORIES - X10(12)/L [facility] MCV 81.2 81.2 - [facility] 95.1 FL LABORATORIES - [facility] Leukocytes 3.5 3.5 - [facility] 10.5 LABORATORIES - X10(9)/L [facility] Neutrophils 1.64 (L) 1.70 - [facility] 7.00 LABORATORIES - X10(9)/L [facility] Lymphocytes 1.07 0.90 - [facility] 2.90 LABORATORIES - X10(9)/L [facility] Monocytes 0.77 0.30 - [facility] 0.90 LABORATORIES - X10(9)/L [facility] Eosinophils <0.03 (L) 0.05 - [facility] 0.50 LABORATORIES - X10(9)/L [facility] Basophils 0.03 0.00 - [facility] 0.30 LABORATORIES - X10(9)/L [facility] RBC Distrib 15.0 11.8 - [facility] Width 15.6 % LABORATORIES - [facility] Platelet Count 202 150 - 450 [facility] X10(9)/L LABORATORIES - [facility] Specimen Anatomical Collection Method Collection Time Receive d Time (Source) Location / / Volume Laterality 07/23/2017 6:58 AM 8 6:58 CDT AM CDT Estiven Martinez M.D. LAB BLOOD ADD-ON Performing Organization Address City/State/ZIP Code Phon e Number [facility] LABORATORIES - [address] [place], [place] [address] [facility] (ABNORMAL) Electrolyte (Chem 4) Panel (07/23/2017 6:58 AM CDT) [facility] Method Time Signature Sodium, S 133 (L) 135 - 145 [facility] MMOL/L LABORATORIES - [facility] Potassium, S 4.3 3.6 - 5.2 [facility] MMOL/L LABORATORIES - [facility] Creatinine 1.2 0.8 - 1.3 [facility] MG/DL LABORATORIES - [facility] eGFR >60 >60 [facility] Non-Black/Afric ML/MIN/BS LABORATORIES - an Samoan A [facility] eGFR >60 >60 [facility] Black/ ML/MIN/BS LABORATORIES - Samoan A [facility] BUN (Blood Urea 23 8 - 24 [facility] Nitrogen), S MG/DL LABORATORIES - [facility] Anion Gap 13 7 - 15 [facility] LABORATORIES - [facility] Glucose, S 85 70 - 140 [facility] MG/DL LABORATORIES - [facility] Chloride, S 96 (L) 98 - 107 [facility] MMOL/L LABORATORIES - [facility] HX Bicarbonate, 24 22 - 29 [facility] P/S MMOL/L LABORATORIES - [facility] Creatinine 1.2 0.8 - 1.3 [facility] MG/DL LABORATORIES - [facility] eGFR >60 >60 [facility] Non-Black/Afric ML/MIN/BS LABORATORIES - an Samoan A [facility] eGFR-Black/Afri >60 >60 [facility] can Samoan ML/MIN/BS LABORATORIES - A [facility] Specimen Anatomical Collection Method Collection Time Receive d Time (Source) Location / / Volume Laterality 07/23/2017 6:58 AM 8 6:58 CDT AM CDT Estvien Martinez M.D. LAB BLOOD ADD-ON Performing Organization Address City/State/ZIP Code Phon e Number [facility] LABORATORIES - [address] [place], [place] [address] [facility] Heparin Anti-Xa Assay (07/23/2017 6:58 AM CDT) athologist Signature Heparin 0.38 IU/ML [facility] Anti-Xa Assay, LABORATORIES - P [facility] Comment: UFH therapeutic range: ? 0.30-0.70 IU/mL ? LMWH therapeutic range: ? 0.50-1.00 IU/mL ? 0.50-1.00 IU/mL for twice daily dosing ? 1.00-2.00 IU/mL for once daily dosing ? (sample obtained 4-6 hours following sub cutaneous injection) ? LMWH prophylactic range:0.10-0.30 IU/mL ? ADDITIONAL INFORMATIO N ? Heparin Anti-Xa is used to measure hepar in concentrations ? in patients receiving low molecular weig ht heparin (LMWH) ? or unfractionated heparin (UFH). ? Specimen Anatomical Collection Method Collection Time Receive d Time (Source) Location / / Volume Laterality 07/23/2017 6:58 AM 8 6:58 CDT AM CDT Estiven Martinez M.D. LAB BLOOD NON ADD-ON Performing Organization Address City/State/ZIP Code Phon e Number [facility] - [address] [place], [place] [address] [facility] (ABNORMAL) Urinalysis with Microscopic (07/23/2017 12:38 AM CDT) P athologist Signature pH, 24 HR, U 5.3 4.5 - 8.0 [facility] Comment: ? ADDITIONAL INFORMATIO N ? This test was developed and its performa nce characteristics determined by ? [facility] in a manner consistent with CLIA requirements. This test has not ? been cleared or approved by the U.S. Shira d and Drug Administration. ? Appearance Normal Normal [facility] LABORAT ORIES [facility] Protein/Osmolality 0.45 (H) <0.42 [facility] Comment: ? ADDITIONAL INFORMATIO N ? On 10/29/2016 the total protein assay me thod changed resulting ? in approximately a 15% increase in prote in values. ? Predicted 24 Hr Protein 439 MG/24 H [facility] S Predicted Range 139-1382 MG/24 H [facility] S Hemoglobin, QL Negative Negative [facility] S Source Midstream [facility] LABORATO [facility] S Osmolality, 24 HR, U 624 150 - 1150 MOSM/KG [facility] S Glucose 11 0 - 15 MG/DL [facility] S Protein, U 28 (H) <26 MG/DL [facility] LABORAT [facility] S Comment: ? ADDITIONAL INFORMATIO N ? On 10/29/2016 the total protein assay me thod changed resulting ? in approximately a 15% increase in prote in values. ? Specimen Anatomical Collection Method Collection Time Receive d Time (Source) Location / / Volume Laterality 07/23/2017 12:38 07/23/2017 AM CDT 12:38 AM CDT Rhona Roldan M.D. LAB URINE ORDERABLES Performing Organization Address City/State/ZIP Code Phon e Number [facility] LABORATORIES - [address] [place], [place] [address] [facility] Microscopic Manual (07/23/2017 12:38 AM CDT) Patholo gist Method Time Signature Microscopy Normal [facility] Blood <3 <3 /HPF [facility] WBC 1-3 1-3 [facility] (Males); LABORATORIES - 1-10 [facility] (Females[facility] /HPF Squamous 1-3 /HPF [facility] Epithelial LABORATORIES [facility] Specimen Anatomical Collection Method Collection Time Receive d Time (Source) Location / / Volume Laterality 07/23/2017 12:38 07/23/2017 AM CDT 12:38 AM CDT Rhona Roldan M.D. LAB URINE ORDERABLES Performing Organization Address City/State/ZIP Code Phon e Number [facility] LABORATORIES - [address] [place], [place] [address] [facility] Gram Stain, Urine (07/23/2017 12:38 AM CDT) [facility] gist Method Time Signature Gram's Stain, Negative [facility] Screen, U LABORATORIES - [facility] Comment: ? ADDITIONAL INFORMATIO N ? This test has been modified from the man ufvenitar's ? instructions. Its performance characteri stics were ? determined by [facility] in a manner co nsistent with ? CLIA requirements. This test has not bee n cleared or ? approved by the U.S. Food and Drug Admin istration. ? Specimen Anatomical Collection Method Collection Time Receive d Time (Source) Location / / Volume Laterality 07/23/2017 12:38 07/23/2017 AM CDT 12:38 AM CDT Rhona Roldan M.D. LAB URINE ORDERABLES Performing Organization Address City/State/ZIP Code Phon e Number [facility] LABORATORIES - [address] [place], [place] [address] [facility] Heparin Anti-Xa Assay (07/22/2017 11:05 PM CDT) athologist Signature Heparin 0.44 IU/ML [facility] Anti-Xa Assay, [facility] Comment: UFH therapeutic range: ? 0.30-0.70 IU/mL ? LMWH therapeutic range: ? 0.50-1.00 IU/mL ? 0.50-1.00 IU/mL for twice daily dosing ? 1.00-2.00 IU/mL for once daily dosing ? (sample obtained 4-6 hours following sub cutaneous injection) ? LMWH prophylactic range:0.10-0.30 IU/mL ? ADDITIONAL INFORMATIO N ? Heparin Anti-Xa is used to measure hepar in concentrations ? in patients receiving low molecular weig ht heparin (LMWH) ? or unfractionated heparin (UFH). ? Specimen Anatomical Collection Method Collection Time Receive d Time (Source) Location / / Volume Laterality 07/22/2017 11:05 07/22/2017 PM CDT 11:05 PM CDT Rhona Roldan M.D. LAB BLOOD NON ADD-ON Performing Organization Address City/State/ZIP Code Phon e Number [facility] LABORATORIES - [address] [place], [place] [address] [facility] Procalcitonin (07/22/2017 11:05 PM CDT) P athologist Signature Procalcitonin, 0.13 <=0.15 [facility] S NG/ML LABORATORIES - [facility] Specimen Anatomical Collection Method Collection Time Receive d Time (Source) Location / / Volume Laterality 07/22/2017 11:05 07/22/2017 PM CDT 11:05 PM CDT Rhona Roldan M.D. LAB BLOOD ADD-ON Performing Organization Address City/State/ZIP Code Phon e Number [facility] LABORATORIES - [address] [place], [place] [address] [facility] (ABNORMAL) Influenza A/B And RSV, PCR, [facility] (07/22/2017 9:18 PM CDT) [facility] Method Time Signature Specimen [facility] (FLU A/B RSV, LABORATORIES - [facility]) [facility] Influenza A, Positive Negative [facility] PCR (A) LABORATORIES - [facility] Influenza B, Negative Negative [facility] PCR LABORATORIES - [facility] Respiratory Negative Negative [facility] Syncytial LABORATORIES - Virus, PCR [facility] Comment: ? ADDITIONAL INFORMATIO N ? This test has been modified from the man richelle's instructions. Its ? performance characteristics were determi herbert by [facility] in a manner ? consistent with CLIA requirements. This test has not been cleared or approved ? by the U.S. Food and Drug Administration . ? Specimen Anatomical Collection Method Collection Time Receive d Time (Source) Location / / Volume Laterality 07/22/2017 9:18 PM 8 9:18 CDT PM CDT Rhona Roldan M.D. LAB MICROBIOLOGY - GENERAL O RDERABLES Performing Organization Address City/State/ZIP Code Phon e Number [facility] - [address] [place], [place] [address] [facility] Microbiology Reports (07/22/2017 8:26 PM CDT) Specimen Anatomical Collection Method Collection Time Receive d Time (Source) Location / / Volume Laterality 07/22/2017 8:26 PM 8 8:26 CDT PM CDT Narrative [facility] - 07/27/2017 9:02 PM CDT 22-JUL-2017 BLOOD, ? SoftOrd# [id number] ?(Ordered 22-JUL-2017; Collec joe 22-JUL-2017 20:26; Received 22-JUL-2017 21:01) ?[facility] ?BACTERIA/KALIA CULTURE, BLOOD ? (Reported 27-JUL-2017 21:02) FINAL ?No growth after 5 days of in cubation. Procedure Note 09/02/2017 22-JUL-2017 BLOOD, SoftOrd# [id number] (Ordered 22-JUL-2017; Collected 2017 20:26; Received 22-JUL-2017 21:01) [facility] BACTERIA/KALIA CULTURE, BLOOD (Repor joe 27-JUL-2017 21:02) FINAL No growth after 5 days of incubation. Rhona Roldan M.D. LAB MICROBIOLOGY - GENERAL O RDERABLES Performing Organization Address City/State/[facility] Code Phon e Number [facility] - [address] [place] [phone] [facility] Microbiology Reports (07/22/2017 8:12 PM CDT) Specimen Anatomical Collection Method Collection Time Receive d Time (Source) Location / / Volume Laterality 07/22/2017 8:12 PM 8 8:12 CDT PM CDT Narrative [facility] - [facility] - 07/27/2017 9:02 PM CDT 22-JUL-2017 BLOOD, ? SoftOrd# [id number] ?(Ordered 22-JUL-2017; Collec joe 22-JUL-2017 20:12; Received 22-JUL-2017 21:00) ?[facility] ?BACTERIA/KALIA CULTURE, BLOOD ? (Reported 27-JUL-2017 21:02) FINAL ?No growth after 5 days of in cubation. Procedure Note 09/02/2017 22-JUL-2017 BLOOD, SoftOrd# [id number] (Ordered 22-JUL-2017; Collected 2017 20:12; Received 22-JUL-2017 21:00) [facility] BACTERIA/KALIA CULTURE, BLOOD (Repor joe 27-JUL-2017 21:02) FINAL No growth after 5 days of incubation. Estiven Martinez M.D. LAB MICROBIOLOGY - GENERAL ORDERABLES Performing Organization Address City/State/ZIP Code Phon e Number [facility] LABORATORIES - [address] [place] [phone] [facility] ECG 12 Lead (07/22/2017 7:02 PM CDT) Specimen (Source) Anatomical Collection Method Collection Time Re ceived Time Location / / Volume Laterality 07/22/2017 7:02 PM CDT Narrative [place] CONVERSION - 07/22/2017 7:0 6 PM CDT 22Jul2017 19:02 VENTRICULAR RATE 94 Normal sinus rhythm Right superior axis deviation Premature atrial complexes Right bundle branch block with secondary ST-T abnormalities When compared with ECG of 22-JUL-2017 17 :19, QRS axis shifted left [id number]^JENNY DEWEY^GILLIAN Procedure Note Gillian Lui M.D. - 08/28/2017Forma tting of this note might be different from the original. 22Jul2017 19:02 VENTRICULAR RATE 94 Normal sinus rhythm Right superior axis deviation Premature atrial complexes Right bundle branch block with secondary ST-T abnormalities When compared with ECG of 22-JUL-2017 17 :19, QRS axis shifted left [id number]^JENNY DEWEY^GILLIAN Estiven Martinez M.D. ECG ORDERABLES Performing Organization Address City/[facility]/ZIP Code Phon e Number [place]X [place] CONVERSION (ABNORMAL) Cardiac Biomarker Panel (07/22/2017 5:53 PM CDT) [facility] Method Time Signature Troponin T, 35 (H) <=15 NG/L [facility] Baseline, 5th LABORATORIES - gen [facility] Troponin T, 2 35 (H) <=15 NG/L [facility] hr, 5th gen LABORATORIES - [facility] Troponin T, 6 . [facility] hr, 5th gen LABORATORIES - [facility] 2H Delta 0 NG/L [facility] LABORATORIES - [facility] 2H Delta No Change [facility] Interp LABORATORIES - [facility] Specimen Anatomical Collection Method Collection Time Receive d Time (Source) Location / / Volume Laterality 07/22/2017 5:53 PM 8 5:53 CDT PM CDT Estiven Mratinez M.D. LAB BLOOD ADD-ON Performing Organization Address City/[facility]/ZIP [facility] Phon e Number [facility] LABORATORIES - [address] [place], [place] [address] [facility] ECG 12 Lead (07/22/2017 5:19 PM CDT) Specimen (Source) Anatomical Collection Method Collection Time Re ceived Time Location / / Volume Laterality 07/22/2017 5:19 PM CDT Narrative [place]X [place] CONVERSION - 07/22/2017 5:2 8 PM CDT 22Jul2017 17:19 VENTRICULAR RATE 75 Sinus rhythm Premature atrial complexes Right bundle branch block with secondary ST-T abnormalities When compared with ECG of 21-MAR-2017 20 :56, No significant change was found [id number]^JENNY DEWEY^GILLIAN Procedure Note Gillian Lui M.D. - 08/28/2017Forma tting of this note might be different from the original. 22Jul2017 17:19 VENTRICULAR RATE 75 Sinus rhythm Premature atrial complexes Right bundle branch block with secondary ST-T abnormalities When compared with ECG of 21-MAR-2017 20 :56, No significant change was found [id number]^JENNY DEWEY^GILLIAN Estiven Martinez M.D. ECG ORDERABLES Performing Organization Address City/[facility] Phon e Number [facility] CONVERSION (ABNORMAL) Electrolyte (Chem 4) Panel (07/22/2017 4:53 PM CDT) [facility] Method Time Signature Chloride, S 92 (L) 98 - 107 [facility] MMOL/L LABORATORIES - [facility] HX Bicarbonate, 26 22 - 29 [facility] P/S MMOL/L LABORATORIES - [facility] Creatinine 1.2 0.8 - 1.3 [facility] MG/DL LABORATORIES - [facility] eGFR >60 >60 [facility] Non-Black/Afric ML/MIN/BS LABORATORIES - an Samoan A [facility] eGFR >60 >60 [facility] Black/ ML/MIN/BS LABORATORIES - Samoan A [facility] BUN (Blood Urea 21 8 - 24 [facility] Nitrogen), S MG/DL LABORATORIES - [facility] Anion Gap 14 7 - 15 [facility] - [facility] Glucose, S 76 70 - 140 [facility] MG/DL LABORATORIES - [facility] Sodium, S 132 (L) 135 - 145 [facility] MMOL/L LABORATORIES - [facility] Potassium, S 4.5 3.6 - 5.2 [facility] MMOL/L LABORATORIES - [facility] Creatinine 1.2 0.8 - 1.3 [facility] MG/DL LABORATORIES - [facility] eGFR >60 >60 [facility] Non-Black/Afric ML/MIN/BS LABORATORIES - Samoan A [facility] eGFR-Black/Afri >60 >60 [facility] can Samoan ML/MIN/BS LABORATORIES - [facility] Specimen Anatomical Collection Method Collection Time Receive d Time (Source) Location / / Volume Laterality 07/22/2017 4:53 PM 8 4:53 CDT PM CDT Estiven Martinez M.D. LAB BLOOD ADD-ON Performing Organization Address City/[facility]/ZIP Code Phon e Number [facility] LABORATORIES - [address] [place] [address] [facility] APTT (Activated Partial Thromboplastin Time) (07/22/2017 4:53 PM CDT) P athologist Signature APTT, P 30 25 - 37 SEC [facility] Specimen Anatomical Collection Method Collection Time Receive d Time (Source) Location / / Volume Laterality 07/22/2017 4:53 PM 8 4:53 CDT PM CDT Estiven Martinez M.D. LAB BLOOD ADD-ON Performing Organization Address City/[facility] Phon e Number [facility] LABORATORIES - [address] [place] [address] [facility] (ABNORMAL) Lipid Panel (07/22/2017 4:53 PM CDT) Patholo gist Method Time Signature Cholesterol, 92 SeeComment [facility] Total MG/DL LABORATORIES - [facility] Comment: ? REFERENCE VALUE------ ? Desirable: < 200 ? Borderline high: 200 - 239 ? High: > or = 240 ? Triglycerides 75 SeeComment MG/DL [facility] - [facility] Comment: ? REFERENCE VALUE------ ? Normal: <150 ? Borderline high: 150-199 ? High: 200-499 ? Very high: > or =500 ? Cholesterol, Non-HDL, 61 SeeComment MG/DL M [facility] - Calculated [facility] Comment: ? REFERENCE VALUE------ ? Desirable: <130 ? Above Desirable: 130-159 ? Borderline high: 160-189 ? High: 190-219 ? Very high: > or =220 ? Cholesterol, HDL, S 31 (L) >=40 MG/DL [facility] S Calculated LDL 46 SeeComment MG/DL [facility] S Comment: ? REFERENCE VALUE------ ? Desirable: <100 ? Above Desirable: 100-129 ? Borderline high: 130-159 ? High: 160-189 ? Very high: > or =190 ? Specimen Anatomical Collection Method Collection Time Receive d Time (Source) Location / / Volume Laterality 07/22/2017 4:53 PM 07/22/201 8 4:53 CDT PM CDT Estiven Martinez M.D. LAB BLOOD ADD-ON Performing Organization Address City/State/ZIP Code Phon e Number [facility] - [address] [place], [place] [address] [facility] (ABNORMAL) PT (Prothrombin Time) with INR (07/22/2017 4:53 PM CDT) [facility] Method Time Signature Prothrombin 12.8 (H) 9.4 - [facility] Time, P 12.5 SEC [facility] INR 1.2 0.9 - 1.1 [facility] Comment: ? ADDITIONAL INFORMATIO N ? Standard intensity warfarin therapeutic range: 2.0 to 3.0 ? High intensity warfarin therapeutic rang e: 2.5 to 3.5 ? Specimen Anatomical Collection Method Collection Time Receive d Time (Source) Location / / Volume Laterality 07/22/2017 4:53 PM 8 4:53 CDT PM CDT Estiven Martinez M.D. LAB BLOOD ADD-ON Performing Organization Address City/State/ZIP Code Phon e Number [facility] LABORATORIES - [address] [place], [place] [address] [facility] (ABNORMAL) CBC with Differential (07/22/2017 4:53 PM CDT) [facility] Method Time Signature Hemoglobin 13.6 13.5 - [facility] 17.5 G/DL LABORATORIES [facility] Hematocrit 40.4 38.8 - [facility] 50.0 % LABORATORIES [facility] RBC Distrib 14.8 11.8 - [facility] Width 15.6 % LABORATORIES [facility] Platelet Count 237 150 - 450 [facility] X10(9)/L LABORATORIES [facility] Lymphocytes 0.84 (L) 0.90 - [facility] 2.90 LABORATORIES - X10(9)/L [facility] Monocytes 0.93 (H) 0.30 - [facility] 0.90 LABORATORIES - X10(9)/L [facility] Erythrocytes 4.98 4.32 - [facility] 5.72 LABORATORIES - X10(12)/L [facility] MCV 81.1 (L) 81.2 - [facility] 95.1 FL LABORATORIES [facility] Leukocytes 4.2 3.5 - [facility] 10.5 LABORATORIES - X10(9)/L [facility] Neutrophils 2.44 1.70 - [facility] 7.00 LABORATORIES - X10(9)/L [facility] Eosinophils <0.03 (L) 0.05 - [facility] 0.50 LABORATORIES - X10(9)/L [facility] Basophils <0.03 0.00 - [facility] 0.30 LABORATORIES - X10(9)/L [facility] Specimen Anatomical Collection Method Collection Time Receive d Time (Source) Location / / Volume Laterality 07/22/2017 4:53 PM 8 4:53 CDT PM CDT Estiven Martinez M.D. 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 PCP - General 10/17/16 10/18/19 documented as of this encounter
--- OUTSIDE RECORDS SUMMARY | 2022-03-29 07:50 | XMS_ITS | Encounter Summary ---
:[address] [facility] Address [address] [place] [address] Care Team Providers Name Role Phone Leta Sanchez M.D. Primary Care Provider Reason for Referral Outpatient (Routine) - Closed Specialty Diagnoses / Procedures Referred By Contact Refer red To Contact Diagnoses 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HCC) - 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HCC) Jatinder Camejo M.D. [facility] Procedures Cystoscopy (specific provider) URO PROC CYSTOSCOPY SPECIAL [address] [place] [address] Referral ID Status Reason Start Date Expiration Date Visits Requ ested Visits Authorized [id number] Closed 08/21/2017 02/17/2018 1 1 Reason for Visit Reason Comments Bladder Cancer cysto Outpatient (Routine) - Closed Specialty Diagnoses / Procedures Referred By Contact Refer red To Contact Urology Diagnoses 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HCC) PAR REVIEW Leta Sanchez M.D. [facility] [place] [facility] Procedures URO EST [address], [address] [place] [address] Referral ID Status Reason Start Date Expiration Date Visits Requ ested Visits Authorized [id number] Closed 07/28/2017 01/24/2018 1 1 Encounter Details Date Type Department Care Team Description 08/21/2017 Office Visit Department of Urology Maryjo Sanchez M.D. [address], [address] [place] [address] Cancer Bladder Personal History; in Nell Tirado Alex, M.D. [address] [place] [address] Malignant Neoplasm Of Bladder Lateral Wa ll (HCC) [place] [address] [place] [address] Social History Tobacco Use Types [...] How often do you attend restorationist or moravian services? 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 - 08/21/2017 11:30 AM CDT CHIEF COMPLAINT/REASON FOR VISIT Cystoscopy. The patient was appropriately identified with at least two separate identifiers and the correct procedure was confirmed. Verbal consent was obtained. 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 He had 6 weeks of BCG. He had a recurrence resected January 02, 2015 also Grade I, stage Ta. He then had a second 6 weeks of BCG. A second recurrence in February 2016, also Grade I, Stage Ta. He then had 6 weeks of BCG plus alpha-interferon. He is known to have a wide-bore non- obstructing bulbous urethral stricture. INSTRUMENT: Flexible cystourethroscope. ANESTHESIA: 2% aqueous lidocaine jelly introduced into the urethra. PROCEDURE: The patient was placed in a supine position. The genitalia were prepped and draped sterilely. The urethra was anesthetized with 2% aqueous lidocaine jelly. The cystoscope was advanced into the urethra. FINDINGS: Meatus: Normal. Urethra: notable for urethral stricture requiring dilation, the stricture was dilated from 12 Frenchto 16 Telugu. Prostate: Length: 3 cm centimeters. Lateral Lobes: Mild hypertrophy with no visual obstruction. Middle Lobe: absent. Bladder Neck: Normal. Residual Urine: Minimal (< 75 ml). Ureteral Orifices: Singular bilaterally, normal position on the trigone, slit- like in configuration and with clear efflux of urine noted bilaterally. Trabeculation: mild. Tumors: 2 small tumors located on the left lateral wall, these are adjacent, together this represents approximately a 1 cm area. Both of the primary areas were biopsied with a cold cup biopsy forceps and sent as a single specimen. A Bugbee electrode is then introduced and the entire area is cauterized. Total cauterization area is approximately 1.5 cm in diameter. The procedure was well tolerated by the patient. He was discharged from the office in satisfactory condition. Post-cystoscopy instructions were reviewed with him. IMPRESSION: Personal history of bladder cancer, recurrent. PLAN: Send biopsy for surgical pathology. Assuming this is low-grade recurrent bladder cancer, we will anticipate repeat cystoscopy and bladder cancer surveillance in 3 months. If he goes on to have rapid recurrences will need to entertain additional intravesical treatment. If this is high-grade, willalso need to entertain additional treatment. Jatinder Camejo M.D. 08/21/17 12:06 PM documented in this encounter Plan of Treatment Upcoming Encounters Date Type Specialty Care Team Description 04/12/2022 Office Visit Cardiovascular Disease Simone Gooden AP RN, C.N.P. [address] [phone] (Wo rk) documented as of this encounter Procedures Procedure Name Priority Date/Time Associated Diagnosis Comme nts SURGICAL PATHOLOGY Routine 08/21/2017 12:05 PM Malignant Neopl asm Results for this CDT Of Bladder Lateral procedure are in Wall (HCC) the results section. documented in this encounter Results Surgical Pathology (08/21/2017 12:05 PM CDT) Component Value Ref Test Analysis Performed At [facility] Range Method Time Signature Report Lucius Mancia, 08/22/2017 [facility] electronically 12:23 PM HEALTH signed by CDT [facility] 08/22/2017 [facility] 12:23 PM HEALTH CDT [facility] Specimen Received A. Bladder 08/22/2017 [facility] biopsy, Left 12:23 PM HEALTH lateral wall CDT [facility] Clinical History Malignant 08/22/2017 [facility] neoplasm of 12:23 PM HEALTH lateral CDT SYSTEM- bladder wall. [facility] Gross Description Submitted as left lateral wall bladder biopsy are two tiny 08/22/2017 [facility] white biopsies aggregating 0.1 cm. ??ESB, one block. 12:23 PM HEALTH EAEpp CDT [facility] Interpretation Bladder, left lateral wall biopsy: ??Benign urotheli um. 08/22/2017 [facility] There is no muscularis propria. 12:23 PM HEALTH CDT [facility] Comment: Interpreted by: Lucius Mancia MD, Signed on 08/22/2017 at 12:23 Specimen Anatomical Collection Method Collection Time Receive d Time (Source) Location / / Volume Laterality Varies 08/21/2017 12:05 08/21/2017 2:34 PM CDT PM CDT Narrative This result has an attachment that is no t available. Jatinder Camejo M.D. LAB SURG PATH ORDERABLES Performing Organization Address City/State/ZIP Code Phon e Number [facility] [address] [place] [address] LAB documented in this encounter Visit Diagnoses Diagnosis Personal History Of Malignant Neoplasm O f Bladder Malignant Neoplasm Of Bladder Lateral Wa ll (HCC) documented in this encounter Additional Health Concerns Assessment Noted Time PHQ-9 Depression Total Score: 5 07/23/2017 9:28 AM CDT documented as of this encounter Care Teams Confidential Investigator Relationship Specialty Start Date End Date Leta Sanchez M.D. PCP - General 10/17/16 10/18/19 documented as of this encounter
--- OUTSIDE RECORDS SUMMARY | 2022-03-29 07:50 | XMS_ITS | Encounter Summary ---
:1950 Author Organization [facility] Address [address] [place] [address] Care Team Providers Name Role Phone Leta Sanchez M.D. Primary Care Provider Reason for Visit Reason Comments Communication Encounter Details Date Type Department Care Team Description 07/23/2017 Clinical Communication Department of [facility] Leta Sanchez M.D. Communication Medicine[address] [place], [place] [address] [address] [place], [place] [phone] [address] (Fax) [phone] Social History Tobacco Use Types Packs/Day Years [...] How often do you attend samaritan or episcopal services? 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 [address] [phone] (Wo rk) documented as of this encounter Visit Diagnoses Not on filedocumented in this encounter Additional Health Concerns Assessment Noted Time PHQ-9 Depression Total Score: 5 07/23/2017 9:28 AM CDT documented as of this encounter Care Teams Metal Riveting Machine Operator Relationship Specialty Start Date End Date Leta Sanchez M.D. PCP - General 10/17/16 10/18/19 documented as of this encounter
--- OUTSIDE RECORDS SUMMARY | 2022-03-29 07:50 | XMS_ITS | Encounter Summary ---
:1950 Author Organization [facility] Address [address] [place] [address] Care Team Providers Name Role Phone Leta Sanchez M.D. Primary Care Provider Reason for Visit Reason Comments Med Refill Encounter Details Date Type Department Care Team Description 07/16/2017 Refill Department of [facility] Ambrosio Sanchez M.D. Med Refill Internal Medicine in [address] [place] [address], [address] [place] [address] [address] [facility] [place] [address] Social History Tobacco Use [...] How often do you attend tenriism or yazidi services? 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 [address] [phone] (Wo rk) documented as of this encounter Visit Diagnoses Not on filedocumented in this encounter Additional Health Concerns Assessment Noted Time PHQ-9 Depression Total Score: 2 05/01/2017 8:09 AM CLAIMS CUSTOMER SERVICE REPRESENTATIVE documented as of this encounter Care Teams Cabinet Worker Relationship Specialty Start Date End Date Leta Sanchez M.D. PCP - General 10/17/16 10/18/19 documented as of this encounter
--- OUTSIDE RECORDS SUMMARY | 2022-03-29 07:50 | XMS_ITS | Encounter Summary ---
:1950 Author Organization [facility] Address [address] [place] [address] Care Team Providers Name Role Phone Leta Sanchez M.D. Primary Care Provider Reason for Visit Reason Onset Date Comments Blood Pressure Check 08/04/2017 Encounter Details Date Type Department Care Team Description 08/04/2017 Clinical Department of Dilcia Schulz Blood Pres sure Communication Community Internal J, L.P.N. Check Medicine in [address] [place], [place] [address] [facility] [address] [facility], [place] [phone] [address] (Work) [phone] Social History Tobacco Use Types Packs/Day Years [...] How often do you attend catholic or sikhism services? 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 - 08/04/2017 12:26 PM CDT Please call him. His blood pressure is slightly high. He needs to come back in 7-10 days to repeat blood pressure. Telephone Encounter - Dilcia Schulz L.P.N. - 08/04/2017 10:48 AM CDT Patient was in for a BP check. BP 165/59 P 54 BP 152/57 P 51 BP 146/64 P 51 documented in this encounter Plan of Treatment Upcoming Encounters Date Type Specialty Care Team Description 04/12/2022 Office Visit Cardiovascular Disease Simone Gooden AP RN, C.N.P. [address] [phone] (Wo rk) documented as of this encounter Visit Diagnoses Not on filedocumented in this encounter Additional Health Concerns Assessment Noted Time PHQ-9 Depression Total Score: 5 07/23/2017 9:28 AM CDT documented as of this encounter Care Teams Separator Tender Relationship Specialty Start Date End Date Leta Sanchez M.D. PCP - General 10/17/16 10/18/19 documented as of this encounter
--- OUTSIDE RECORDS SUMMARY | 2022-03-29 07:50 | XMS_ITS | Encounter Summary ---
:1950 Author Organization [facility] Address [address] [place] [address] Care Team Providers Name Role Phone Leta Sanchez M.D. Primary Care Provider Encounter Details Date Type Department Care Team Description 07/22/2017 Hospital Encounter HX NO MAPPING Social History Tobacco Use Types Packs/Day Years [...] How often do you attend scientologist or cheondoism services? 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 From [place]'s discharge on 03/25. clopidogrel (for_PLAVIX) Take 1 [...] Cardiovascular Disease Simone Gooden AP RN, C.N.P. [address] [phone] (Wo rk) documented as of this encounter Visit Diagnoses Not on filedocumented in this encounter Additional Health Concerns Assessment Noted Time PHQ-9 Depression Total Score: 2 05/01/2017 8:09 AM FLOORWORKER documented as of this encounter Care Teams Frame Catcher Relationship Specialty Start Date End Date Leta Sanchez M.D. PCP - General 10/17/16 10/18/19 documented as of this encounter
--- OUTSIDE RECORDS SUMMARY | 2022-03-29 07:50 | XMS_ITS | Encounter Summary ---
:1950 Author Organization [facility] Address [address] [place] [address] Care Team Providers Name Role Phone Leta Sanchez M.D. Primary Care Provider Reason for Visit Reason Comments Communication Encounter Details Date Type Department Care Team Description 07/28/2017 Clinical Communication Department of Gareth Sanchez M.D. Communication [facility] Internal [address] 300 [facility] [address] [place], [place] [phone] [address] (Fax) [phone] Social History Tobacco Use Types Packs/Day Years [...] How often do you attend christianity or adventism services? 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 [address] [phone] (Wo rk) documented as of this encounter Visit Diagnoses Not on filedocumented in this encounter Additional Health Concerns Assessment Noted Time PHQ-9 Depression Total Score: 5 07/23/2017 9:28 AM CDT documented as of this encounter Care Teams Senior Civil Engineer Relationship Specialty Start Date End Date Leta Sanchez M.D. PCP - General 10/17/16 10/18/19 documented as of this encounter
--- OUTSIDE RECORDS SUMMARY | 2022-03-29 07:50 | XMS_ITS | Encounter Summary ---
:1950 Author Organization [facility] Address [address] [place] [address] Care Team Providers Name Role Phone Leta Sanchez M.D. 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 [facility] Procedures URO EST [address], [facility] [address] [place] [address] Referral ID Status Reason Start Date Expiration Date Visits Requ ested Visits Authorized Closed 07/28/2017 01/24/2018 1 1 Scheduling Instructions Please schedule with Dr. 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 [facility] Medicine Procedures CIM EST NURSE [address], [place] [address] [place] [address] Referral ID Status Reason Start Date Expiration Date Visits Requ ested Visits Authorized Closed 07/28/2017 01/24/2018 1 1 Reason for Visit Reason Comments TCM Encounter Details Date Type Department Care Team Description 07/28/2017 Office Visit Department of Leta Sanchez M.D . Non-ST Elevation Myocardial Infarction ( HCC) (Primary Dx); Community Internal [address], [place] christopherhitis Chronic (HCC); Medicine in [place] [address] Hypertensive Heart And Chronic Kidney Di sease Without Heart Failure And With Stage 2 (Mild) Chronic Kidney Disease; Abraham Roberson [place], [place] Hyperlipidemia; [address] [address] Influenza; [place] Abuse To bacco Smoking; [id number] Malignant Neoplasm Of Bladde r Lateral Wall (HCC); [phone] High Risk Medic ation Social History Tobacco [...] week 04/16/2019 How often do you attend quaker or buddhism services? 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 - 07/28/2017 3:00 PM CDT SUBJECTIVE CHIEF COMPLAINT/REASON FOR VISIT Post hospital follow-up HISTORY OF PRESENT ILLNESS Seven Salazar is a 67 y.o. male who presents to the clinic today for post hospital follow-up. Kearas admitted to [facility] on 07/22/[address] elevation myocardial infarction. He was discharged on 07/24/2017. Carlene Love R.N from our office contacted himon 07/25/2017 for post hospital follow-up phone call. I review interval history including dismissal summary and lab results from [facility]. He is doing well since discharge from hospital. He does not have exertional chest pain or dyspnea exertion. He has been taking medication regularly as prescribed. He denies dizziness, lightheadedness, orthopnea, proximal nocturnal dyspnea, palpitation or peripheral edema. During hospitalization EKG showed no acute ischemic changes. He was noted to have elevated troponin I without significant change at 2 hours. He was diagnosed with influenza A infection and treated withTamiflu. He was started on heparin infusion along with aspirin and loading dose of Plavix. He underwent cardiac catheterization on 07/24/2017. He has diffuse coronary arthrosclerosis but no focal stenosis. There was no stent placed. He completed Tamiflu therapy. He had fasting lipid profile at [facility] on 07/22/2017. He does not want cardiac rehabilitation. He will like to go back to work with no restriction. He has follow-up appointment to see hunter guide at [facility] in [place] on 10/13/2017. He has history of urinary bladder wall cancer. He missed follow-up appointment with urologist. He needs to reschedule. I review and updated his past medical history, past surgical history, social history and family history. Medication reconciliation was done. I answered all of his questions. He does not have additionalquestion, concern or complaint. CURRENT MEDICATIONS Current Outpatient Prescriptions Medication Sig [...] mg total) by mouth at bedtime. From [place]'s discharge on 03/25. 90 tablet 3 ??? [...] Virus Vaccine Bivalent Other (see comments) Sickness, Otilioner listed no reactions. ??? Pravastatin Myalgia and [...] Coronary Artery Disease 06/12/2017 ??? Corticosteroid Treatment Detailer Systemic 03/14/2017 ??? Cyst Renal 02/05/2016 ??? [...] benign lesion of scalp and neck ??? OTHER CONVERTED SHX (SEE COMMENT) N/A 05/31/1999 >Partial hemilaminectomy, fifth-cervical. Total hemilaminectomy, sixth-cervical. ??? OTHER CONVERTED SHX (SEE COMMENT) N/A 07/16/1999 >Excision of large back lipoma. ??? TRANSURETHRAL RESECTION OF BLADDER TUMOR 02/19/2010 [...] Lung cancer Sister OBJECTIVE VITAL SIGNS Vitals: 07/28/17 1446 07/28/17 1450 BP: 142/61 130/69 Patient Position: Sitting Sitting Pulse: 99 Resp: 24 Weight: 93.5 kg PHYSICAL EXAMINATION GENERAL: Patient is sitting. No distress. Able to talk without interruption. SKIN: No rash, bruise or nodules. HEAD: No facial rash, asymmetry or sinus tenderness. EYES: PERRLA. EOMI. No pallor, icterus or conjunctivitis. ENT: No nasal congestion, discharge or bleeding. There is no ear infection or discharge. No mastoid tenderness. Tongue is moist and midline. No oral lesions. LYMPH NODES: No cervical or supraclavicular lymphadenopathy. THYROID: No thyromegaly. No thyroid thrill or bruit. PERIPHERAL VESSELS: Good radial pulses. HEART: No carotid bruit. No JVD. Regular rhythm. There is no S3, gallop, murmur or thrill. LUNGS: Normal respiratory effort. Clear to auscultation. Normal percussion. ABDOMEN: Moves with respiration. Bowel sounds present. Soft. No rebound tenderness, guarding or rigidity. No organomegaly. SPINE: No scoliosis or kyphosis. No spinous tenderness or mass. JOINTS: No joint swelling or deformity. No decreased range of motion. EXTREMITIES: No clubbing, cyanosis, edema, infection or calf tenderness. GAIT: No abnormal gait. MENTAL: Alert and oriented x 3. Normal mood and affect. NEURO: Grossly nonfocal. DIAGNOSTICS CORONARY DIAGNOSTIC SUMMARY 07/24/2017 Coronary artery dominance is right. The middle [...] is 30% obstructed by a discrete lesion. 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 I review dismissal summary and hunter guide recommendation. He no longer has chest pain. He denies dyspnea exertion. His blood pressure was slightly high on arrival. Repeated blood pressure is good. He needs to take Bea vix for 1 year. He needs to take aspirin indefinitely. He should continue atorvastatin, we need to up titrate is inhibitor and beta muna as tolerated. He declined cardiac rehabilitation. He would like to go back to work with no restriction. He will continue current medications and cardiovascular risk factor modification. We discussed smoking cessation. He will follow with hunter guide at [facility] in [place] on 10/13/2017. #3 Bronchitis Chronic (HCC) #4 Influenza A He is stable from respiratory standpoint. Currently he has no symptom. He completed Tamiflu therapy. #5 Hyperlipidemia He needs to continue atorvastatin 80 mg by mouth daily. Lipid profile was done at [facility] on 07/22/2017. Total cholesterol 92, triglycerides 75, HDL 31 and LDL 46. We need to repeat lipidprofile every 12 months. #6 Abuse Tobacco Smoking We discussed smoking cessation. He is planning to quit. 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 Again it is very important for him to quit smoking tobacco. #8 Renew Medication Metoprolol succinate was renewed. #9 Follow-up Visit Return to clinic in September 2017 for Medicare annual wellness visit, review medical problems and renew medication. He needs to do following blood tests few days prior to the appointment: Complete blood count, CK, basic metabolic panel, hepatic function panel, TSH and screening PSA. documented in this encounter Plan of Treatment Upcoming Encounters Date Type Specialty Care Team Description 04/12/2022 Office Visit Cardiovascular Disease Simone Gooden AP RN, C.N.P. [address], [place] [phone] (Wo rk) Scheduled Referrals Name Type Priority Associated Diagnoses Order S [facility] Internal Outpatient Referral Routine Hypertensive He art Expected: Medicine nurse And Chronic Kidney 018 visit (clinic) Disease Without Heart (Stephan roximate), Failure And With Expires: Stage 2 (Mild) 07/28/2020 Chronic Kidney Disease Urology - Oncology Outpatient Referral Routine Malignant Neopl asm Of Expected: - bladder / urethra Bladder Lateral Wall 07/28/2017 consult (clinic) (HCC) (Approximat e), Expires: 07/28/2020 documented as of this encounter Visit Diagnoses Diagnosis Non-ST Elevation Myocardial Infarction ( HCC) - Primary Bronchitis Chronic (HCC) Hypertensive Heart And Chronic Kidney Di sease Without Heart Failure And With Stage 2 (Mild) Chronic Kidney Disease Hyperlipidemia Influenza Abuse Tobacco Smoking Malignant Neoplasm Of Bladder Lateral Wa ll (HCC) High Risk Medication documented in this encounter Additional Health Concerns Assessment Noted Time PHQ-9 Depression Total Score: 5 07/23/2017 9:28 AM CDT documented as of this encounter Care Teams Yarn Washer Relationship Specialty Start Date End Date Leta Sanchez M.D. PCP - General 10/17/16 10/18/19 documented as of this encounter
--- OUTSIDE RECORDS SUMMARY | 2022-03-29 07:50 | XMS_ITS | Encounter Summary ---
:1950 Author Organization [facility] Address [address] [place] [address] Care Team Providers Name Role Phone Leta Sanchez M.D. 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 [facility] Medicine Procedures CIM EST NURSE [address] [place] [address] [place] [address] Referral ID Status Reason Start Date Expiration Date Visits Requ ested Visits Authorized [id number] Closed 07/28/2017 01/24/2018 1 1 Encounter Details Date Type Department Care Team Description 08/04/2017 Nurse Only Department of Family eLta Sanchez M.D. [address] [facility] [address] [place] [address] Blood Pressure Check Medicine, [place] Dilcia Schulz L.PBhaveshNBhavesh [address] [phone] [facility], in [place] [address] [place] [address] Social History Tobacco Use Types Packs/Day [...] How often do you attend amish or scientology services? 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 [address] [phone] (Wo rk) documented as of this encounter Visit Diagnoses Diagnosis Hypertensive Heart And Chronic Kidney Di sease Without Heart Failure And With Stage 2 (Mild) Chronic Kidney Disease documented in this encounter Additional Health Concerns Assessment Noted Time PHQ-9 Depression Total Score: 5 07/23/2017 9:28 AM CDT documented as of this encounter Care Teams Director Biostatistics Relationship Specialty Start Date End Date Leta Sanchez M.D. PCP - General 10/17/16 10/18/19 documented as of this encounter
--- OUTSIDE RECORDS SUMMARY | 2022-03-29 07:51 | XMS_ITS | Encounter Summary ---
:1950 Author Organization [facility] Address [address] [place] [address] Care Team Providers Name Role Phone Leta Sanchez M.D. Primary Care Provider Reason for Visit Reason Comments Med Refill Encounter Details Date Type Department Care Team Description 04/24/2017 Refill Department of [facility] Ambrosio Sanchez M.D. Med Refill Internal Medicine in [address] [place] [address], [facility] [address] [place] [address] 300 [facility] [place] [address] Social History Tobacco Use Types Packs/Day Years Used Date Smoking Tobacco: Former Cigarettes Quit : 03/27/2017 Smokeless Tobacco: Never Alcohol Habits Answer [...] How often do you attend jain or synagogue services? 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 [address] [phone] (Wo rk) documented as of this encounter Visit Diagnoses Not on filedocumented in this encounter Additional Health Concerns Assessment Noted Time PHQ-9 Depression Total Score: 3 03/21/2017 11:44 AM CS T documented as of this encounter Care Teams Information And Data Architect Analyst Relationship Specialty Start Date End Date Leta Sanchez M.D. PCP - General 10/17/16 10/18/19 documented as of this encounter
--- OUTSIDE RECORDS SUMMARY | 2022-03-29 07:51 | XMS_ITS | Encounter Summary ---
:1950 Author Organization [facility] Address [address] [place] [address] Care Team Providers Name Role Phone Riley Sanchez M.D. Primary Care Provider Reason for Visit Reason Comments Med Refill Encounter Details Date Type Department Care Team Description 04/25/2017 Refill Department of [facility] Ambrosio Sanchez M.D. Med Refill Internal Medicine in [address] [place] [address], [facility] [address] [place] [address] 300 [facility] ANASTASIIAABRA[facility] [place] [address] Social History Tobacco Use [...] How often do you attend pentecostalism or latter-day services? 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 - 04/25/2017 5:32 PM CST Pharmacy will notify patient of prescription refill. IOLOGY TECHNICIAN Addendum Note - Riley Sanchez M.D. - 04/25/2017 5:27 PM CARDIOLOGY TECHNICIAN Addended by: RILEY SANCHEZ on: 04/25/2017 05:27 PM Modules accepted: Orders IOLOGY TECHNICIAN Telephone Encounter - Riley Sanchez M.D. - 04/25/2017 5:26 PM CST Please call him. I sent new prescription for albuterol inhaler. IOLOGY TECHNICIAN Telephone Encounter - Sanaz Webster R.N. - 04/25/2017 3:17 PM CST Please see message IOLOGY TECHNICIAN Telephone Encounter - Vira Jeong - 04/25/2017 2:48 PM CST Nurse Review: Pharmacy Communication Provider: Dr. Sanchez Medication: ProAir Respimat Inhaler Pharmacy Comment: Respimat inhaler not covered by insurance. Can we please get a new Rx for regular ProAir or Ventolin? Please advise. Thank you. IOLOGY TECHNICIAN documented in this encounter Plan of Treatment Upcoming Encounters Date Type Specialty Care Team Description 04/12/2022 Office Visit Cardiovascular Disease Simone Gooden AP RN, C.N.P. [address] [phone] (Wo rk) documented as of this encounter Visit Diagnoses Not on filedocumented in this encounter Additional Health Concerns Assessment Noted Time PHQ-9 Depression Total Score: 3 03/21/2017 11:44 AM CS T documented as of this encounter Care Teams Telecommunications Officer Relationship Specialty Start Date End Date Riley Sanchez M.D. PCP - General 10/17/16 10/18/19 documented as of this encounter
--- OUTSIDE RECORDS SUMMARY | 2022-03-29 07:51 | XMS_ITS | Encounter Summary ---
:1950 Author Organization [facility] Address [address] [place] [address] Care Team Providers Name Role Phone Leta Sanchez M.D. Primary Care Provider Reason for Visit Reason Comments Communication Encounter Details Date Type Department Care Team Description 03/26/2017 Clinical Communication Department of Sandhya Cheng, Communication Medicine, [place], R.NBhavesh [facility], in [address] [phone] Social History Tobacco Use Types Packs/Day Years Used Date Smoking Tobacco: Every Day Cigarettes Smokeless Tobacco: Never Alcohol Habits Answer Date [...] How often do you attend sikhism or spiritism services? Never 04/16/2019 Do you [...] Date Recorded Male 06/28/2019 8:47 AM LEAD CARGOMAN documented as of this encounter Miscellaneous Notes Telephone Encounter - Xenia Young - 03/26/2017 2:13 PM CST Pt called, please call Back CARGOMAN Telephone Encounter - Eva Rodriguez - 03/26/2017 10:53 AM CST Patient returned call. Please call [phone] CARGOMAN Telephone Encounter - Aury Hebert RJames. - 03/26/2017 9:46 AM CST @SUBJECTIVEBEGIN@ REASON FOR CALL Post-Hospital follow-up phone call with patient after Seven Salazar discharge on 03/25/2017 for NSTEMI. Attempted to call patient 03/26 @ 947 & 03/26 @ 130. Follow-Up Appointment Follow-up appointment scheduled? yes Date of appointment: 03/31/2017 @ 945 CARGOMAN documented in this encounter Plan of Treatment Upcoming Encounters Date Type Specialty Care Team Description 04/12/2022 Office Visit Cardiovascular Disease Simone Gooden AP RN, C.N.P. [address] [place] [phone] (Wo rk) documented as of this encounter Visit Diagnoses Not on filedocumented in this encounter Additional Health Concerns Assessment Noted Time PHQ-9 Depression Total Score: 3 03/21/2017 11:44 AM CS T documented as of this encounter Care Teams Slate Roofer Relationship Specialty Start Date End Date Leta Sanchez M.D. PCP - General 10/17/16 10/18/19 documented as of this encounter
--- OUTSIDE RECORDS SUMMARY | 2022-03-29 07:51 | XMS_ITS | Encounter Summary ---
:1950 Author Organization [facility] Address [address] [place] [address] Care Team Providers Name Role Phone Leta Sanchez M.D. Primary Care Provider Reason for Visit Reason Comments Communication Encounter Details Date Type Department Care Team Description 05/06/2017 Clinical Communication Department of [facility] Mart [facility] Internal C.M.A. Medicine in [address] [place], [place] 300 [facility] [address] [place], [place] [phone] [address] (Work) [phone] Social History Tobacco Use Types Packs/Day Years [...] How often do you attend worship or samaritan services? Never 04/16/2019 Do you belong to [...] at Date Recorded Male 06/28/2019 8:47 AM BRAND MARKETING INTERN documented as of this encounter Miscellaneous Notes Telephone Encounter - Elvia Whitley - 05/06/2017 2:58 PM BRAND MARKETING INTERN Done. D MARKETING INTERN Telephone Encounter - Micheline Mart C.M.A. - 05/06/2017 2:18 PM CST Ok to put BMP on 05/26/17 labs D MARKETING INTERN Telephone Encounter - Leta Sanchez M.D. - 05/06/2017 2:15 PM CST It is okay to wait until 05/26/2017. In that case, we need to hold CT angiogram until the time. D MARKETING INTERN Telephone Encounter - Micheline Mart C.M.A. - 05/06/2017 2:06 PM CST Please advise if ok to wait for BMP on May 26 D MARKETING INTERN Telephone Encounter - Elvia Whitley - 05/06/2017 1:42 PM BRAND MARKETING INTERN He has labs scheduled for May 26. Is it ok to add this BMP lab to that appointment? D MARKETING INTERN Telephone Encounter - Micheline Mart C.M.A. - 05/06/2017 1:31 PM CST Please call patient and schedule labs he needs to do a BMP orders are in. D MARKETING INTERN documented in this encounter Plan of Treatment Upcoming Encounters Date Type Specialty Care Team Description 04/12/2022 Office Visit Cardiovascular Disease Simone Gooden AP RN, C.N.P. [address] [place] [phone] (Wo rk) documented as of this encounter Visit Diagnoses Not on filedocumented in this encounter Additional Health Concerns Assessment Noted Time PHQ-9 Depression Total Score: 2 05/01/2017 8:09 AM BRAND MARKETING INTERN documented as of this encounter Care Teams Bike Technician Relationship Specialty Start Date End Date Leta Sanchez M.D. PCP - General 10/17/16 10/18/19 documented as of this encounter
--- OUTSIDE RECORDS SUMMARY | 2022-03-29 07:51 | XMS_ITS | Encounter Summary ---
:1950 Author Organization [facility] Address [address] [place] [address] Care Team Providers Name Role Phone Leta Sanchez M.D. Primary Care Provider Reason for Visit Reason Comments Communication Encounter Details Date Type Department Care Team Description 05/20/2017 Clinical Communication Department of Gareth Sanchez M.D. Communication Formerly [facility] Internal [facility] [facility] [address] [place], [place] [phone] (Fax) [phone] Social History Tobacco Use Types Packs/Day Years [...] week 04/16/2019 How often do you attend evangelical or taoism services? Never 04/16/2019 Do you belong to any clubs or organizations such as evangelical N o 04/16/2019 groups, unions, fraternal or [...] at Date Recorded Male 06/28/2019 8:47 AM HOG RINGER documented as of this encounter Miscellaneous Notes Telephone Encounter - Juany Hebert L.P.N. - 05/20/2017 6:28 PM CST Patient notified of Dr. Sanchez's recommendatons. RINGER Telephone Encounter - Leta Sanchez M.D. - 05/20/2017 5:52 PM CST Please call him to come in this week to 2 basic metabolic profile. We need to check it few days prior to CT angiogram of the abdomen. Order is in EHR. RINGER documented in this encounter Plan of Treatment Upcoming Encounters Date Type Specialty Care Team Description 04/12/2022 Office Visit Cardiovascular Disease Simone Gooden AP RN, C.N.P. [address] [phone] ([facility]) documented as of this encounter Visit Diagnoses Diagnosis Hypertensive Heart And Chronic Kidney Di sease Without Heart Failure And With Unspecified Stage Chronic Kidney Disease - Primary documented in this encounter Additional Health Concerns Assessment Noted Time PHQ-9 Depression Total Score: 2 05/01/2017 8:09 AM HOG RINGER documented as of this encounter Care Teams Motor Grader Operator Relationship Specialty Start Date End Date Leta Sanchez M.D. PCP - General 10/17/16 10/18/19 documented as of this encounter
--- OUTSIDE RECORDS SUMMARY | 2022-03-29 07:51 | XMS_ITS | Encounter Summary ---
:1950 Author Organization [facility] Address [address] [place] [address] Care Team Providers Name Role Phone Leta Sanchez M.D. Primary Care Provider Reason for Visit Reason Comments Communication Encounter Details Date Type Department Care Team Description 05/01/2017 Clinical Communication Department of Lucretia Zuleta [facility] Laboratory Medicine R, BILINGUAL INSIDE SALES REPRESENTATIVE(ASCP) in [facility] [address] [place], [place] [address] [facility] [place] [address] [place], [place] [phone] (Work) [phone] Social History Tobacco Use Types Packs/Day Years [...] How often do you attend yarsani or nondenominational services? Never 04/16/2019 Do you [...] at Date Recorded Male 06/28/2019 8:47 AM RECRUITING AND SELECTION CONSULTANT documented as of this encounter Miscellaneous Notes Telephone Encounter - Juany Hebert L.P.N. - 05/09/2017 8:44 AM CST Called and spoke with patient. Patient states his pharmacy was able to fill Ventolin for him which he has been using and it is working well. UITING AND SELECTION CONSULTANT Telephone Encounter - Leta Sanchez M.D. - 05/08/2017 8:11 PM CST Please call the patient and inform him about his insurance denial. Please check with pharmacy regarding alternative medications. UITING AND SELECTION CONSULTANT Telephone Encounter - Leta Sanchez M.D. - 05/08/2017 8:11 PM CST ----- Message from Alessandro [place] sent at 05/08/2017 3:55 PM RECRUITING AND SELECTION CONSULTANT ----- Regarding: DENIAL The patients??? health insurance provider has denied the medication prior authorization for the following medication: PROAIR RESPICLICK INHALER. SHORTNESS OF BREATH IS NOT AN FDA APPROVED OFF-LABEL USEOF THIS DRUG . You may choose to appeal the decision by: Reaching out to the patients??? insurer directly (see prior auth history for appeal information.) Consider changing the patient???s medication therapy. Patient may choose to pay out of pocket; however, clinician must release new medication to the pharmacy. Thank you UITING AND SELECTION CONSULTANT documented in this encounter Plan of Treatment Upcoming Encounters Date Type Specialty Care Team Description 04/12/2022 Office Visit Cardiovascular Disease Simone Gooden AP RN, C.N.P. [address] [phone] (Wo rk) documented as of this encounter Visit Diagnoses Not on filedocumented in this encounter Additional Health Concerns Assessment Noted Time PHQ-9 Depression Total Score: 2 05/01/2017 8:09 AM RECRUITING AND SELECTION CONSULTANT documented as of this encounter Care Teams Environmental Field Technician Relationship Specialty Start Date End Date Leta Sanchez M.D. PCP - General 10/17/16 10/18/19 documented as of this encounter
--- OUTSIDE RECORDS SUMMARY | 2022-03-29 07:51 | XMS_ITS | Encounter Summary ---
:1950 Author Organization [facility] Address [address] [place] [address] Care Team Providers Name Role Phone Leta Sanchez M.D. Primary Care Provider Encounter Details Date Type Department Care Team Description 05/04/2017 Orders Only Department of Leta Sanchez M.D . Hypertension [facility] Internal [address] Cec[address]lanos (Primary Dx) Medicine in [address] [address] [facility] [place] [address] Social History Tobacco Use Types [...] How often do you attend religion or restorationist services? Never 04/16/2019 Do you [...] at Date Recorded Male 06/28/2019 8:47 AM NEUROLOGY SPECIALIST documented as of this encounter Plan of Treatment Upcoming Encounters Date Type Specialty Care Team Description 04/12/2022 Office Visit Cardiovascular Disease Simone Gooden AP RN, C.N.P. [address] [phone] (Wo rk) documented as of this encounter Results BMP (Basic Metabolic Panel) (05/26/2017 8:33 AM NEUROLOGY SPECIALIST) P athologist Signature Potassium, S 5.0 3.6 - 5.2 05/26/2017 [facility] mmol/L 12:07 PM [facility] [place] Sodium, S 139 135 - 145 05/26/2017 [facility] mmol/L 12:07 PM [facility] [place] [facility] Chloride, S 102 98 - 107 05/26/2017 [facility] mmol/L 12:[address] [facility] Bicarbonate, S 25 22 - 29 05/26/2017 [facility] mmol/L 12:07 PM [facility] [place] Anion Gap 12 7 - 15 05/26/2017 [facility] 12:[address] [facility] [place] BUN (Blood Urea 24 8 - 24 05/26/2017 [facility] Nitrogen), S mg/dL 12:[address] [facility] Creatinine 0.96 0.74 - 05/26/2017 [facility] 1.35 mg/dL 12:07 PM [facility] [place] [facility] eGFR 81 >=60 05/26/2017 [facility] Non-Black/Afric mL/min/BSA 12:07 PM [facility] [place] [facility] Comment: ----ADDITIONAL INFORMATION---- Estimated GFR calculated using the 2009 CKD_EPI creatinine equation. eGFR Black/ >90 >=60 mL/min/BSA 05/26/2017 12:0 7 PM [facility] [place] [facility] Comment: ----ADDITIONAL INFORMATION---- Estimated GFR calculated using the 2009 CKD_EPI creatinine equation. Calcium, Total, S 9.8 8.9 - 10.1 mg/dL 05/26/2017 12:0 7 PM [facility] [place] [facility] Glucose, S 100 70 - 140 mg/dL 05/26/2017 12:07 PM [facility] [place] [facility] Specimen Anatomical Collection Method Collection Time Receive d Time (Source) Location / / Volume Laterality Blood 05/26/2017 8:33 AM 8 NEUROLOGY SPECIALIST 11:26 AM NEUROLOGY SPECIALIST Leta Sanchez M.D. LAB BLOOD ADD-ON Performing Organization Address City/State/ZIP Code Phon e Number [facility] [address] [place] [address] LAB documented in this encounter Visit Diagnoses Diagnosis Hypertension Essential Primary - Primary documented in this encounter Additional Health Concerns Assessment Noted Time PHQ-9 Depression Total Score: 2 05/01/2017 8:09 AM NEUROLOGY SPECIALIST documented as of this encounter Care Teams Nurse Practitioner Manager Relationship Specialty Start Date End Date Leta Sanchez M.D. PCP - General 10/17/16 10/18/19 documented as of this encounter
--- OUTSIDE RECORDS SUMMARY | 2022-03-29 07:51 | XMS_ITS | Encounter Summary ---
:[address] [facility] Address [address] [place] [address] Care Team Providers Name Role Phone Leta Sanchez M.D. Primary Care Provider Reason for Referral Outpatient (Routine) - Closed Specialty Diagnoses / Procedures Referred By Contact Sherri argueta To Contact Community Internal Diagnoses PAR Review Leta Sanchez M.D. [place] [phone] [facility] [address] [place] [address] Referral ID Status Reason Start Date Expiration Date Visits Requ ested Visits Authorized [id number] Closed 03/31/2017 09/27/2017 1 1 Scheduling Instructions 1 month follow up. Need fasting blood te sts before appt. EF OPERATOR Reason for Visit Reason Comments Post Hospital Follow-up TCM- [facility]- discharged on 03/25/2017- NSTEMI Heartburn Appointment Request (Routine) - Closed Specialty Diagnoses / Procedures Referred By Contact Sherri argueta To Contact Community Internal Diagnoses PAR Review [facility] Procedures [facility] Referral ID Status Reason Start Date Expiration Date Visits Requ ested Visits Authorized [id number] Closed 03/24/2017 09/20/2017 1 1 Encounter Details Date Type Department Care Team Description 03/31/2017 Office Visit Department of Torsten Stout M.D. [address] [place] [id number] Non-ST Elevation Myocardial Infarction ( HCC) (Primary Dx); Community Internal Leta Sanchez M.D. [address], [place] [address] [place] [address] Ischemia Mesenteric Chronic (HCC); Medicine in Polymyalgia Rhe umatica (HCC); [place], [place] Coronary Stent Status Post; [address] Hypertensive Heart And Chron ic Kidney Disease Without Heart Failure And With Stage 2 (Mild) Chronic Kidney Disease; [place], [place] Hyperlipidemia ; [address] Pain Epigastric; [phone] Anemia; Tobacco Use; High Risk Medic ation Social History Tobacco [...] How often do you attend shinto or denominational services? Never 04/16/2019 Do you belong to [...] at Date Recorded Male 06/28/2019 8:47 AM RELIEF OPERATOR documented as of this encounter Last Filed Vital Signs Vital Sign Reading Time Taken Comments Blood Pressure 129/55 03/31/2017 10:07 AM RELIEF OPERATOR Pulse - - Temperature 37.2 ??C (99 ??F) 03/31/2017 10:07 AM RELIEF OPERATOR Respiratory Rate 16 03/31/2017 10:07 AM RELIEF OPERATOR Oxygen Saturation 97% 03/31/2017 10:07 AM RELIEF OPERATOR Inhaled Oxygen Concentration - - Weight 101 kg (221 lb 10.8 oz) 03/31/2017 10:07 AM RELIEF OPERATOR Height 173 cm (5' 8.11) 03/31/2017 10:07 AM RELIEF OPERATOR Body Mass Index 33.6 03/31/2017 10:07 AM RELIEF OPERATOR documented in this encounter Progress Leta Sauer M.D. - 03/31/2017 10:15 AM CST CHIEF COMPLAINT/REASON FOR VISIT 1. Hospital followup. 2. Transitional care management within 7 days after hospital discharge. HISTORY OF PRESENT ILLNESS Seven Salazar is a 67 y.o. male who presents to the clinic today for a hospital followup. He was hospitalized at [facility] [place], from 03/21/2017 to 03/25/2017 fornon-ST elevation myocardial infarction. He had hospitalization followup phone call on 03/26/2017. I am seeing him today for followup. He was sent to [facility] ER on 03/21/2017 because of positive troponin. EKG showed normal sinus rhythm, stable right bundle branch block, new T wave inversions. Troponins ranged from 4.38 to 3.65. He was given Aspirin and Nitroglycerin but continued to have chest pain and wasgiven Morphine. He was transferred to [facility] [place] for acute coronary syndrome. On admission to [facility] [place], he was hemodynamically stable. He was diagnosed with NSTEMI and left heart catheterization was scheduled. On 03/22/2017 during left heart catheterization, he underwent successful drug eluting stent placement with 3 in the right coronary artery and 1 in the circumflex artery. He required further intervention and underwent successful drug eluting stent placement to left anterior descending artery on 03/24/2017. He tolerated procedures well and considered medically stable for discharge. He was started on Aspirin 81 mg daily, Plavix 75 mg daily for 1 year, and Atorvastatin 80 mg daily. Lisinopril was changed to 20 mg daily and Toprol-XL 12.5 mg twice a day. Hydrochlorothiazide was discontinued. I reviewed hospital record and recommendations. He is feeling better today. He still has minor indigestion. He mentioned that he usually hiccups about ten times after eating. He quit smoking a few days ago. He finds that he becomes tired after walking and working. He mentioned that his brother 42 days after stent placement and is worried aboutthat. Reassurance was given. There was no orthopnea, paroxysmal nocturnal dyspnea, palpitation, or peripheral edema. Because of epigastric pain related to meals it was suggested to have further evaluation for chronic mesenteric ischemia. It was decided to have workup in subsequent visit because there is potential risk of kidney damage with repeat CT scan with IV contrast dye. He has no problem with urination. He was started on generic Lipitor 80 mg by mouth daily at bedtime. So far he does not notice any side effects. We need to repeat lipid profile in subsequent visit. I reviewed and updated his medication list. We discussed potential side effects. There are no additional questions, concerns, or complaints. MEDICATIONS Current Outpatient Prescriptions Medication Sig Dispense Refill ??? albuterol sulfate 90 mcg/actuation aerosol powdr breath activated Inhale 2 puffs every 4 (four) hours as needed. ??? aspirin 81 mg chewable tablet Chew 81 mg daily. ??? atorvastatin (for_LIPITOR) 80 mg tablet Take 80 mg by mouth at bedtime. ??? clopidogrel (for_PLAVIX) 75 mg tablet Take 75 mg by mouth daily. For 1 year until [...] (three) times a day. 90 Dose 11 ??? metoprolol succinate (for_TOPROL-XL) 25 mg 24 hr tablet Take 12.5 mg by mouth at bedtime. Do notcrush or chew. ALLERGIES Allergies Allergen Reactions ??? Bupropion Hcl [...] Bronchitis Chronic (HCC) 07/03/2015 ??? Corticosteroid Treatment [facility] 03/14/2017 ??? Cyst Renal 02/05/2016 ??? [...] Social History Main Topics ??? Smoking status: Former Smoker Types: Cigarettes Quit date: 03/27/2017 ??? Smokeless tobacco: Never Used ??? [...] Liver cancer Father ??? Lung cancer Sister VITAL SIGNS Vitals: 03/31/17 [facility] BP: 129/55 Patient Position: Sitting Temp: 37.2 ??C Resp: 16 Height: 173 cm Weight: 100.5 kg SpO2: 97% PHYSICAL EXAMINATION GENERAL: Patient is sitting. No [...] LYMPH NODES: No cervical or supraclavicular lymphadenopathy. PERIPHERAL VESSELS: Good radial pulses. HEART: No carotid bruit. No JVD. Regular rhythm. There is no S3, gallop, murmur or thrill. LUNGS: Normal respiratory effort. Clear to auscultation. Normal percussion. ABDOMEN: Moves with respiration. Bowel sounds present. Soft. No rebound tenderness, guarding or rigidity. No organomegaly. EXTREMITIES: No clubbing, cyanosis, edema, infection or calf tenderness. MENTAL: Alert and oriented x 3. Normal mood and affect. NEURO: Grossly nonfocal. ASSESSMENT / PLAN #1 Non-ST Elevation Myocardial Infarction (HCC) #2 Status Post Coronary Stent with RENETTA to the RCA and the LCx on 03/22/2017 and to proximal and middle LAD on 03/24/2017 at [facility]. I reviewed hospital summary and recommendations. He is doing well today. Patient is stable from a cardiac standpoint. There is no angina. Patient does not need to take Nitroglycerin. He needs to continue Aspirin 81 mg daily, Atorvastatin 80 mg daily, and Plavix 75 mg daily for 1 year (until 03/24/2018). We will set up cardiac rehabilitation. He was given return to work note. Need to continue cardiovascular risk factor modifications. #3 Ischemia Mesenteric Chronic (HCC) #4 Pain Epigastric His abdominal pain is improved. Specialists are [facility] thought it may be due to mesenteric ischemia or peptic ulcer disease. It was recommended to schedule CT angiography of the abdomen.We will hold for now. We need to repeat renal function before proceeding CT angiography of the abdomen. #5 Polymyalgia Rheumatica (HCC) He will continue Prednisone 5 mg daily. If he does not have polymyalgia rheumatica symptoms??along with normal inflammatory markers, we may cut back prednisone dose 1 mg every month. 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 Patient is stable from a cardiac standpoint. Need to continue sodium controlled diet and current medications. Monitor blood pressure regularly at home. Blood pressure goalis less than 140/90 mmHg. Need to continue cardiovascular risk factors modification. #7 Hyperlipidemia He was started on Atorvastatin 80 mg daily in the hospital. There are no side effects from medication. Patient was advised to continue low cholesterol, low fat diet, regular exercise, and current medication. Need to check fasting lipid profile again in 1 month. #8 Anemia He has anemia. Last hemoglobin was 12 and hematocrit was 35.5 on 03/24/2017. There was no evidence of bleeding. Need to watch for bleeding. We will monitor CBC at subsequent visit. #9 Tobacco Use He quit smoking a few days ago. I congratulated him on this. He needs to stay quit. #10 Followup Visit Return to the clinic in 1 month for followup with following tests prior to appointment: CBC, CK, CRP, HFP, and Lipids. This document serves as a record of services personally performed by Dr. Leta Sanchez. It was created on their behalf by Juan Ramos, a trained medical aides teacher. The creation of this record is based on the scribe's personal observations and the provider's statements to them. This document has been checked and approved by the attending provider. EF OPERATOR documented in this encounter Plan of Treatment Upcoming Encounters Date Type Specialty Care Team Description 04/12/2022 Office Visit Cardiovascular Disease Simone Gooden AP RN, C.N.P. [address] [place] [address] [phone] (Wo rk) Scheduled Referrals Name Type Priority Associated Diagnoses Order S [facility] Internal Outpatient Referral Routine Ex pected: Medicine office 04/30/2017 visit (clinic) (Approximate) , Expires: 03/31/2020 documented as of this encounter Results (ABNORMAL) CRP (C-Reactive Protein) (05/01/2017 9:05 AM RELIEF OPERATOR) athologist Signature C-Reactive 39.4 (H) <=8.0 mg/L 05/01/2017 [facility] Protein (CRP), 1:56 PM [facility] Specimen Anatomical Collection Method Collection Time Receive d Time (Source) Location / / Volume Laterality Blood (Blood, 05/01/2017 9:05 AM 05/01/20 17 Venous) RELIEF OPERATOR 12:48 PM RELIEF OPERATOR Leta Sanchez M.D. LAB BLOOD ADD-ON Performing Organization Address City/State/ZIP Code Phon e Number [facility] [address] [place] [address] [place] [facility] Hepatic Function Panel (05/01/2017 9:05 AM RELIEF OPERATOR) [facility] Method Time Signature Bilirubin, Total, S 0.4 <=1.2 05/01/2017 [facility] mg/dL 11:45 AM [facility] Bilirubin, Direct, S <0.2 0.0 - 0.3 05/01/2017 [facility] mg/dL 11:45 AM [facility] Aspartate 19 8 - 48 05/01/2017 [facility] Aminotransferase U/L 11:45 AM [facility] Alanine 9 7 - 55 05/01/2017 [facility] Aminotransferase U/L 11:45 AM [facility] ([facility] Alkaline 99 45 - 115 05/01/2017 [facility] Phosphatase, S U/L 11:45 AM [facility] Albumin, S 4.0 3.5 - 5.0 05/01/2017 [facility] g/dL 11:45 AM [facility] Protein, Total, S 6.9 6.3 - 7.9 05/01/2017 [facility] g/dL 11:45 AM [facility] Specimen Anatomical Collection Method Collection Time Receive d Time (Source) Location / / Volume Laterality Blood (Blood, 05/01/2017 9:05 AM 05/01/20 17 Venous) RELIEF OPERATOR 10:53 AM RELIEF OPERATOR Leta Sanchez M.D. LAB BLOOD ADD-ON Performing Organization Address City/State/ZIP Code Phon e Number [facility] [address] [place] [address] LAB CK (Creatine Kinase) (05/01/2017 9:05 AM RELIEF OPERATOR) athologist Signature Creatine Kinase 93 52 - 336 05/01/2017 [facility] (CK), S U/L 1:56 PM [facility] Specimen Anatomical Collection Method Collection Time Receive d Time (Source) Location / / Volume Laterality Blood (Blood, 05/01/2017 9:05 AM 05/01/20 17 Venous) RELIEF OPERATOR 12:48 PM RELIEF OPERATOR Leta Phyo MBhaveshDBhavesh LAB BLOOD ADD-ON Performing Organization Address City/State/ZIP Code Phon e Number [facility] [address] [place] [address] [place] [facility] (ABNORMAL) CBC without Differential (05/01/2017 9:05 AM RELIEF OPERATOR) [facility] Method Time Signature Hemoglobin 12.2 (L) 13.2 - 05/01/2017 [facility] 16.6 g/dL 9:22 AM [facility] Hematocrit 37.6 (L) 38.3 - 05/01/2017 [facility] 48.6 % 9:22 AM [facility] [employer] [facility] Erythrocytes 4.31 (L) 4.35 - 05/01/2017 [facility] 5.65 9:22 AM [facility] x10(12)/L [facility] [employer] [facility] MCV 87.2 78.2 - 05/01/2017 [facility] 97.9 fL 9:22 AM [facility] RBC Distrib Width 14.1 11.8 - 05/01/2017 [facility] 14.5 % 9:22 AM [facility] Platelet Count 354 (H) 135 - 317 05/01/2017 [facility] x10(9)/L 9:22 AM [facility] Leukocytes 7.2 3.4 - 9.6 05/01/2017 [facility] x10(9)/L 9:22 AM [facility] Specimen Anatomical Collection Method Collection Time Receive d Time (Source) Location / / Volume Laterality Blood (Blood, 05/01/2017 9:05 AM 05/01/20 17 9:07 Venous) RELIEF OPERATOR AM [facility] Leta Sanchez M.D. LAB BLOOD ADD-ON Performing Organization Address City/State/ZIP Code Phon e Number [facility] [address] [place] [address] [place] [facility]- [address] [place] [address] [place], [place] [address] [facility] (ABNORMAL) Lipid Panel (05/01/2017 9:05 AM [facility]) athologist Signature Cholesterol, 93 mg/dL 05/01/2017 [facility] Total 11:45 AM [facility] [place] [facility] Comment: ----REFERENCE VALUE---- Desirable: < 200 Borderline high: 200 - 239 High: > or = 240 Triglycerides 88 mg/dL 05/01/2017 11:45 AM [facility] [place] [facility] Comment: ----REFERENCE VALUE---- Normal: <150 Borderline high: 150-199 High: 200-499 Very high: > or =500 Cholesterol, HDL, S 34 (L) >=40 mg/dL 05/01/2017 11:45 AM [facility] [place] [facility] Calculated LDL 41 mg/dL 05/01/2017 11:45 AM [address] [facility] [place] [facility] Comment: ----REFERENCE VALUE---- Desirable: <100 Above Desirable: 100-129 Borderline high: 130-159 High: 160-189 Very high: > or =190 Cholesterol, Non-HDL, 59 mg/dL 05/01/2017 11:45 A M RELIEF OPERATOR [facility] [place] [facility] Comment: ----REFERENCE VALUE---- Desirable: <130 Above Desirable: 130-159 Borderline high: 160-189 High: 190-219 Very high: > or =220 Specimen Anatomical Collection Method Collection Time Receive d Time (Source) Location / / Volume Laterality Blood (Blood, 05/01/2017 9:05 AM 05/01/20 17 Venous) RELIEF OPERATOR 10:53 AM RELIEF OPERATOR Leta Sanchez M.D. LAB BLOOD ADD-ON Performing Organization Address City/State/ZIP Code Phon e Number [facility] [address] [place] [address] LAB documented in this encounter Visit Diagnoses Diagnosis Non-ST Elevation Myocardial Infarction ( HCC) - Primary Ischemia Mesenteric Chronic (HCC) Polymyalgia Rheumatica (HCC) Coronary Stent Status Post Hypertensive Heart And Chronic Kidney Di sease Without Heart Failure And With Stage 2 (Mild) Chronic Kidney Disease Hyperlipidemia Pain Epigastric Anemia Tobacco Use High Risk Medication documented in this encounter Additional Health Concerns Assessment Noted Time PHQ-9 Depression Total Score: 3 03/21/2017 11:44 AM CS T documented as of this encounter Care Teams Air Chipper Relationship Specialty Start Date End Date Leta Sanchez M.D. PCP - General 10/17/16 10/18/19 documented as of this encounter
--- OUTSIDE RECORDS SUMMARY | 2022-03-29 07:51 | XMS_ITS | Encounter Summary ---
:1950 Author Organization [facility] Address [address] [place] [address] Care Team Providers Name Role Phone Leta Sanchez M.D. Primary Care Provider Reason for Visit Reason Comments Communication Encounter Details Date Type Department Care Team Description 05/23/2017 Clinical Communication Department of [facility] Leta Sanchez M.D. Communication Medicine[address] [place], [place] [address] [address] [place], [place] [phone] (Fax) [phone] Social History Tobacco Use Types Packs/Day Years [...] How often do you attend congregation or sabianist services? Never 04/16/2019 Do you [...] at Date Recorded Male 06/28/2019 8:47 AM RHIC SYSTEMS SAFETY ENGINEER documented as of this encounter Miscellaneous Notes Telephone Encounter - Juany Hebert L.P.N. - 05/23/2017 1:[address] Sanchez called and spoke with patient personally. Patient was advised he needed to have kidney functions assessed prior to his CT Urogram. SYSTEMS SAFETY ENGINEER Telephone Encounter - Carlene Webster - 05/23/2017 11:07 AM CST Patient called back unable able to reach nurse. He said he was retuning a call to Juany. SYSTEMS SAFETY ENGINEER documented in this encounter Plan of Treatment Upcoming Encounters Date Type Specialty Care Team Description 04/12/2022 Office Visit Cardiovascular Disease Simone Gooden AP RN, C.N.P. [address] [phone] ( rk) documented as of this encounter Visit Diagnoses Not on filedocumented in this encounter Additional Health Concerns Assessment Noted Time PHQ-9 Depression Total Score: 2 05/01/2017 8:09 AM RHIC SYSTEMS SAFETY ENGINEER documented as of this encounter Care Teams Pilot Control Operator Relationship Specialty Start Date End Date Leta Sanchez M.D. PCP - General 10/17/16 10/18/19 documented as of this encounter
--- OUTSIDE RECORDS SUMMARY | 2022-03-29 07:51 | XMS_ITS | Encounter Summary ---
:1950 Author Organization [facility] Address [address] [place] [address] Care Team Providers Name Role Phone Leta Sanchez M.D. Primary Care Provider Encounter Details Date Type Department Care Team Description 05/08/2017 Orders Only [facility], Tamiko Phelps D.O. [facility], [address] [phone] Social History Tobacco Use Types Packs/Day Years [...] How often do you attend anabaptism or tenriism services? 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 [address] [phone] (Wo rk) documented as of this encounter Visit Diagnoses Not on filedocumented in this encounter Additional Health Concerns Assessment Noted Time PHQ-9 Depression Total Score: 2 05/01/2017 8:09 AM INSPECTOR WATCH TRAIN documented as of this encounter Care Teams Saxophone Teacher Relationship Specialty Start Date End Date Leta Sanchez M.D. PCP - General 10/17/16 10/18/19 documented as of this encounter
--- OUTSIDE RECORDS SUMMARY | 2022-03-29 07:51 | XMS_ITS | Encounter Summary ---
:1950 Author Organization [facility] Address [address] [place] [address] Care Team Providers Name Role Phone Leta Sanchez M.D. 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 - 05/12/2017 2:40 PM CST Spoke with Jatinder and he notes that the patient's Respiclick inhaler is now on the formulary list and he can get it without a PA or appeal. Per conversation with Juany on 05/09/17, patient's medication was changed to Ventolin and is working well. Nothing else is needed at this time. TRONICS ENGINEERING PROFESSOR Telephone Encounter - Tiffany Joe - 05/12/2017 12:01 PM CST Jatinder is calling to state that the pt does not need a PA for this inhaler for the year 2017. He wouldlike a call back as to what it is you would like to do with the PA request. Please call Jatinder at [phone] ext [phone] TRONICS ENGINEERING PROFESSOR documented in this encounter Plan of Treatment Upcoming Encounters Date Type Specialty Care Team Description 04/12/2022 Office Visit Cardiovascular Disease Simone Gooden AP RN, C.N.P. [address] [phone] (Wo rk) documented as of this encounter Visit Diagnoses Not on filedocumented in this encounter Additional Health Concerns Assessment Noted Time PHQ-9 Depression Total Score: 2 05/01/2017 8:09 AM ELECTRONICS ENGINEERING PROFESSOR documented as of this encounter Care Teams Industrial Safety And Health Specialist Relationship Specialty Start Date End Date Leta Sanchez M.D. PCP - General 10/17/16 10/18/19 documented as of this encounter
--- OUTSIDE RECORDS SUMMARY | 2022-03-29 07:51 | XMS_ITS | Encounter Summary ---
:1950 Author Organization [facility] Address [address] [place] [address] Care Team Providers Name Role Phone Leta Sanchez M.D. Primary Care Provider Encounter Details Date Type Department Care Team Description 05/26/2017 Hospital Encounter Department of Leta Sanchez M.D. Hypertension Laboratory Medicine 1518 [facility] in [place], [place], [facility] [id number] [place], [place] [address] [phone] (Fax) [phone] Social History Tobacco Use Types Packs/Day Years [...] week 04/16/2019 How often do you attend hoahaoism or alevism services? 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 From [facility] discharge on 03/25. clopidogrel (for_PLAVIX) Take 1 tablet (75 mg 90 tablet 3 0 05/20/2017 05/28/2018 75 mg tablet total) by mouth daily. For 1 year until 03/24/2018. lisinopril Take 1 tablet (20 mg 90 tablet 3 05/20/201705/06 (for_PRINIVIL,ZESTRIL) total) by mouth every 20 mg tablet morning. metoprolol succinate Take 12.5 mg by mouth 0 07/16/2017 (for_TOPROL-XL) 25 mg 24 at bedtime. Do not hr tablet crush or chew. nitroglycerin Place 0.4 mg [...] documented as of this encounter Progress Notes Juany Hebert, L.P.N. - 05/26/2017 11:59 PM CST Patient notified of results and Dr. Sanchez's recommendations. Patient expressed understanding. Leta Newton M.D. - 05/26/2017 12:41 PM CST Please call him. Electrolytes and kidney functions are normal. He needs to drink plenty of fluid before and after CT angiogram to check mesenteric ischemia. ICAL TESTING SUPERVISOR documented in this encounter Plan of Treatment Upcoming Encounters Date Type Specialty Care Team Description 04/12/2022 Office Visit Cardiovascular Disease Simone Gooden AP RN, C.N.P. 0[address], [place] [phone] (Wo rk) documented as of this encounter Procedures Procedure Name Priority Date/Time Associated Diagnosis Comme nts BASIC METABOLIC Routine 05/26/2017 8:33 AM Hypertension Result s for this PANEL, S/P PHYSICAL TESTING SUPERVISOR Essential Primary procedure are in the results section. documented in this encounter Results BMP (Basic Metabolic Panel) (05/26/2017 8:33 AM PHYSICAL TESTING SUPERVISOR) athologist Signature Potassium, S 5.0 3.6 - 5.2 05/26/[address] [facility] mmol/L 12:07 PM [facility] Sodium, S 139 135 - 145 05/26/[address] [facility] mmol/L 12:07 PM [facility] Chloride, S 102 98 - 107 05/26/[address] [facility] mmol/L 12:07 PM [facility] Bicarbonate, S 25 22 - 29 05/26/[address] [facility] mmol/L 12:07 PM [facility] Anion Gap 12 7 - 15 05/26/[address] [facility] 12:07 PM [facility] BUN (Blood Urea 24 8 - 24 05/26/[address] [facility] Nitrogen), S mg/dL 12:07 PM [facility] Creatinine 0.96 0.74 - 05/26/[address] [facility] 1.35 mg/dL 12:07 PM [facility] eGFR 81 >=60 05/26/[address] [facility] Non-Black/Afric mL/min/BSA 12:07 PM PHYSICAL TESTING SUPERVISOR [facility] [place] Comment: ----ADDITIONAL INFORMATION---- Estimated GFR calculated using the 2009 CKD_EPI creatinine equation. eGFR Black/ >90 >=60 mL/min/BSA 05/26/2017 12:0 7 PM [facility] [place] [facility] Comment: ----ADDITIONAL INFORMATION---- Estimated GFR calculated using the 2009 CKD_EPI creatinine equation. Calcium, Total, S 9.8 8.9 - 10.1 mg/dL 05/26/2017 12:0 7 PM [facility] [place] [facility] Glucose, S 100 70 - 140 mg/dL 05/26/2017 12:07 PM [facility] [place] [facility] Specimen Anatomical Collection Method Collection Time Receive d Time (Source) Location / / Volume Laterality Blood 05/26/2017 8:33 AM 8 PHYSICAL TESTING SUPERVISOR 11:26 AM PHYSICAL TESTING SUPERVISOR Leta Sanchez M.D. LAB BLOOD ADD-ON Performing Organization Address City/State/ZIP Code Phon e Number [facility] [address] [place] [id number] LAB documented in this encounter Visit Diagnoses Diagnosis Hypertension Essential Primary documented in this encounter Additional Health Concerns Assessment Noted Time PHQ-9 Depression Total Score: 2 05/01/2017 8:09 AM PHYSICAL TESTING SUPERVISOR documented as of this encounter Care Teams Infrastructure Solutions Architect Relationship Specialty Start Date End Date Leta Sanchez M.D. PCP - General 10/17/16 10/18/19 documented as of this encounter
--- OUTSIDE RECORDS SUMMARY | 2022-03-29 07:51 | XMS_ITS | Encounter Summary ---
:1950 Author Organization [facility] Address [address] [place] [address] Care Team Providers Name Role Phone Leta Sanchez M.D. Primary Care Provider Reason for Visit Reason Comments Communication returning call Encounter Details Date Type Department Care Team Description 05/21/2017 Clinical Department of Leta Sanchez, Communication Communication Family MedicineJavid (returning call) [facility], [address] [place] [address] in [facility] [id number] [place] [address] [phone] (Fax) [phone] Social History Tobacco Use Types Packs/Day Years [...] How often do you attend druze or oriental orthodox services? 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 - 05/21/2017 1:42 PM ROBOTIC WELDER Patient calling in regards to checking on medication refills. [facility] No further questions. TIC WELDER Telephone Encounter - Taryn Estrella - 05/21/2017 12:27 PM CST Patient returning nurses call, know's Dr. Sanchez out today. TIC WELDER documented in this encounter Plan of Treatment Upcoming Encounters Date Type Specialty Care Team Description 04/12/2022 Office Visit Cardiovascular Disease Simone Gooden AP RN, C.N.P. [address] [phone] (Wo rk) documented as of this encounter Visit Diagnoses Not on filedocumented in this encounter Additional Health Concerns Assessment Noted Time PHQ-9 Depression Total Score: 2 05/01/2017 8:09 AM ROBOTIC WELDER documented as of this encounter Care Teams Transportation Museum Helper Relationship Specialty Start Date End Date Leta Sanchez M.D. PCP - General 10/17/16 10/18/19 documented as of this encounter
--- OUTSIDE RECORDS SUMMARY | 2022-03-29 07:51 | XMS_ITS | Encounter Summary ---
:1950 Author Organization [facility] Address [address] [place] [address] Care Team Providers Name Role Phone Leta Sanchez M.D. Primary Care Provider Reason for Visit Reason Comments Communication Encounter Details Date Type Department Care Team Description 03/31/2017 Clinical Communication Department of Gareth Sanchez M.D. Communication [facility]ly [facility], [facility] Internal [facility] [address] [facility] [address] [place], [place] [phone] (Fax) [phone] Social History Tobacco Use Types Packs/Day Years [...] How often do you attend pentecostal or yarsanism services? 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 - 03/31/2017 1:06 PM CST Created for letter. T METAL SHOP SUPERVISOR documented in this encounter Plan of Treatment Upcoming Encounters Date Type Specialty Care Team Description 04/12/2022 Office Visit Cardiovascular Disease Simone Gooden AP RN, C.N.P. [address] [phone] (Wo rk) documented as of this encounter Visit Diagnoses Not on filedocumented in this encounter Additional Health Concerns Assessment Noted Time PHQ-9 Depression Total Score: 3 03/21/2017 11:44 AM CS T documented as of this encounter Care Teams Ecotherapist Relationship Specialty Start Date End Date Leta Sanchez M.D. PCP - General 10/17/16 10/18/19 documented as of this encounter
--- OUTSIDE RECORDS SUMMARY | 2022-03-29 07:51 | XMS_ITS | Encounter Summary ---
:1950 Author Organization [facility] Address [address] [place] [address] Care Team Providers Name Role Phone Leta Sanchez M.D. Primary Care Provider Reason for Referral Outpatient (Routine) - Closed Specialty Diagnoses / Procedures Referred By Contact Refer kendall To Contact Community Internal Diagnoses par review Leta Sanchez M.D. [facility] Medicine Procedures CIM EST [address], [place] [address] [place] [address] Referral ID Status Reason Start Date Expiration Date Visits Requ ested Visits Authorized [id number] Closed 05/01/2017 10/28/2017 1 1 Scheduling Instructions 1 month follow up. MIX OPERATOR Reason for Visit Reason Comments Follow-up follow-up from 03/31/2017 - DC on 03/22/2017 - one week ago had a day where his heart was pounding, so me SOB, and chest pain- nitro and baby aspirin gave no relief. pain resolve d on its own the next day Outpatient (Routine) - Closed Specialty Diagnoses / Procedures Referred By Contact Refer kendall To Contact Community Internal Diagnoses PAR Review Leta Sanchez M.D. [facility] Medicine [address], [place] [address] [place] [address] Referral ID Status Reason Start Date Expiration Date Visits Requ ested Visits Authorized [id number] Closed 03/31/2017 09/27/2017 1 1 Encounter Details Date Type Department Care Team Description 05/01/2017 Office Visit Department of Leta Sanchez M.D . Non-ST Elevation Myocardial Infarction ( HCC) (Primary Dx); Community Internal [address], Cor onary Stent Status Post; Medicine in [place] [address] Pain Chest; [place], [place], [place] Ischemia Mesenteric Chronic (HCC); [address] [address] Pain Epigastric; JAYNA THIBODEAUX Polymyal daniel Rheumatica (HCC); [id number] Hypertensive Heart And Chron ic Kidney Disease Without Heart Failure And With Stage 2 (Mild) Chronic Kidney Disease; [phone] Anemia; Abuse Tobacco S moking; Hyperlipidemia; High Risk Medic ation Social History [...] How often do you attend buddhism or jewish services? 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 MIX OPERATOR documented as of this encounter Last Filed Vital Signs Vital Sign Reading Time Taken Comments Blood Pressure 132/63 05/01/2017 8:04 AM BATH MIX OPERATOR Pulse 69 05/01/2017 8:04 AM BATH MIX OPERATOR Temperature - - Respiratory Rate 16 05/01/2017 8:04 AM BATH MIX OPERATOR Oxygen Saturation - - Inhaled Oxygen Concentration - - Weight 99.7 kg (219 lb 12.8 oz) 05/01/2017 8:04 AM BATH MIX OPERATOR Height 173 cm (5' 8.11) 05/01/2017 8:04 AM BATH MIX OPERATOR Body Mass Index 33.31 05/01/2017 8:04 AM BATH MIX OPERATOR documented in this encounter Patient Instructions Patient InstructionsLeta Sanchez M.D. - 05/01/2017 8:15 AM CST We will do blood tests today including blood tests for heart attack. Please take 4 tablets of chewable aspirin when you have chest pain along with sublingual nitroglycerin every 5 minutes up to 3 dosesand call 911 if you continue to have chest pain. We will schedule CT scan with IV contrast at [facility] if your kidney function is withinnormal range, to look for underlying mesenteric ischemia causing epigastric pain. Return to clinic in 1 month for follow-up. MIX OPERATOR documented in this encounter Progress Notes Leta Sanchez M.D. - 05/01/2017 8:15 AM CST SUBJECTIVE CHIEF COMPLAINT/REASON FOR VISIT Followup on chronic medical problems. HISTORY OF PRESENT ILLNESS Seven Salazar is a 67 y.o. male who presents to the clinic today for a one month followup from 03/31/2017. At his last visit, he was seen for a hospital followup after non-ST elevation myocardial infarction with placement of stents . One week ago, he had throbbing pain in his anterior chest. He took two Nitro about two hours apart without relief. He also took a baby Aspirin. His chest pain resolved on its own the next day. He denies any chest pain or shortness of breath today. He smokes a few cigarettes occasionally. His blood pressure is controlled. His stomach pain is almost gone. He denies any problems with bowel movement. We discussed scheduling CT scan for workup of mesenteric ischemia. We need to check his kidney function today. In terms of his polymyalgia rheumatica, he feels it is controlled. He is on Prednisone. There are noadditional questions, concerns, or complaints. CURRENT MEDICATIONS Current [...] (three) times a day. 90 Dose 11 ALLERGIES/CONTRAINDICATIONS Allergies Allergen Reactions ??? Bupropion Hcl [...] Bronchitis Chronic (HCC) 07/03/2015 ??? Corticosteroid Treatment Wig Stylist Systemic 03/14/2017 ??? Cyst Renal 02/05/2016 ??? [...] Lung cancer Sister OBJECTIVE VITAL SIGNS Vitals: 05/01/17 0804 BP: 132/63 Patient Position: Sitting Pulse: 69 Resp: 16 Height: 173 cm Weight: 99.7 kg PHYSICAL EXAMINATION GENERAL: Patient is sitting. [...] proximal and middle LAD on 03/24/2017 at [facility] #3 Chest Pain He had throbbing chest pain one week ago. He took Nitro and Aspirin without relief. His symptoms resolved the next day. He has no recurrent chest pain since then. We discussed that he should take 4 chewable Aspirin and sublingual Nitroglycerin every 5 minutes up to 3 doses as needed for chest pain. Cartereeds to call 911 and go to the hospital at that time. It was decided to check troponin I and CK today. Patient is stable from a cardiac standpoint on exam. He needs to continue Aspirin 81 mg daily, Atorvastatin 80 mg daily, and Plavix 75 mg daily for 1 year (until 03/24/2018). He will continue cardiac rehabilitation. Need to continue cardiovascular risk factor modifications. #4 Ischemia Mesenteric Chronic (HCC) Possible #5 Pain Epigastric His abdominal pain is improved. We will schedule CT scan of the abdomen with IV contrast at [facility] if his kidney function is within normal range, to look for underlying mesenteric ischemia causing epigastric pain. #6 Polymyalgia Rheumatica (HCC) He will continue Prednisone 5 mg daily. If he does not have polymyalgia rheumatica symptoms??along with normal inflammatory markers, we may cut back prednisone dose 1 mg every month. We will check CRP today. 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 Need to continue sodium controlled diet and current medication. Monitor blood pressure regularly at home. Blood pressure goal is less than 140/90 mmHg. Need to continue cardiovascular risk factors modification. #8 Anemia There was no evidence of bleeding. Need to watch for bleeding. We will check CBC today. #9 Abuse Tobacco Smoking He smokes cigarettes very occasionally. He needs to quit completely. We discussed complications. #10 Hyperlipidemia There are no side effects from Atorvastatin. Patient was advised to continue low cholesterol, low fat diet, regular exercise, and current medication. Need to check lipid profile again today. #11 Renew Medications The following medications were renewed: Albuterol sulfate. #12 Today Studies Patient had following studies done today: CBC, CK, CRP, HFP, Lipids, and Troponin I. Patient will benotified with results & recommendations. #13 Followup Visit Return to the clinic in 1 month for followup. This document serves as a record of services personally performed by Dr. Leta Sanchez. It was created on their behalf by Juan Ramos, a trained medical dosimetrist. The creation of this record is based on the scribe's personal observations and the provider's statements to them. This document has been checked and approved by the attending provider. MIX OPERATOR Leta Sanchez M.D. - 05/01/2017 8:15 AM CST Please call him. Troponin I and CK are normal. There is no evidence of heart attack. C reactive protein is still high, but improved from a month ago. He needs to continue current dose of prednisone. Cholesterols are okay. Liver enzymes are normal. Blood counts show slightly low hemoglobin and hematocrit. He needs to watch for bleeding. We need to do basic metabolic profile, which was not done. Pleasetell him to come in to do basic metabolic profile this week. Order is in EHR. We need to schedule CTangiogram of abdomen at [address] if renal function is normal, to look for mesenteric ischemia. MIX OPERATOR documented in this encounter Plan of Treatment Upcoming Encounters Date Type Specialty Care Team Description 04/12/2022 Office Visit Cardiovascular Disease Simone Gooden AP RN, C.N.P. [address] [phone] (Wo rk) Scheduled Referrals Name Type Priority Associated Diagnoses Order S [facility] Internal Outpatient Referral Routine Ex pected: Medicine office 07/30/2017 visit (clinic) (Approximate) , Expires: 05/01/2020 documented as of this encounter Procedures Procedure Name Priority Date/Time Associated Diagnosis Comme nts MARCY SEAMANULT Routine 05/01/2017 9:07 AM Resul ts for this MISC STAT TEST 1 BATH MIX OPERATOR procedure a re in the results section. LIPID PANEL, S Routine 05/01/2017 9:05 AM Non-ST Elevation Res ults for this BATH MIX OPERATOR Myocardial procedure are i n Infarction (HCC) the results section. HEPATIC FUNCTION Routine 05/01/2017 9:05 AM Non-ST Elevation R esults for this PANEL, S BATH MIX OPERATOR Myocardial procedure are i n Infarction (HCC) the results Hyperlipidemia section. High Risk Medication CBC WITHOUT Routine 05/01/2017 9:05 AM Non-ST Elevation Resul ts for this DIFFERENTIAL, B BATH MIX OPERATOR Myocardial procedure ar e in Infarction (HCC) the results Anemia section. C-REACTIVE PROTEIN Routine 05/01/2017 9:05 AM Polymyalgia Res ults for this (CRP), S/P BATH MIX OPERATOR Rheumatica (HCC) procedure a re in the results section. CREATINE KINASE Routine 05/01/2017 9:05 AM Non-ST Elevation Re sults for this (CK), S BATH MIX OPERATOR Myocardial procedure are i n Infarction (HCC) the results Hyperlipidemia section. High Risk Medication documented in this encounter Results Marcy Thibodeaux Misc STAT Test 1 (05/01/2017 9:07 AM BATH MIX OPERATOR) athologist Signature Test Name TROPONIN 05/01/2017 [facility] 10:35 AM BATH MIX OPERATOR - [employer] Result See Scanned 05/01/2017 [facility] Report 10:35 AM BATH MIX OPERATOR - [employer] Specimen Anatomical Collection Method Collection Time Receive d Time (Source) Location / / Volume Laterality Varies 05/01/2017 9:07 AM 7 9:07 BATH MIX OPERATOR AM BATH MIX OPERATOR Narrative This result has an attachment that is no t available. Leta Sanchez M.D. LAB MISC ORDERABLES Performing Organization Address City/State/ZIP Code Phon e Number [facility] - [employer] [address] [place], [place] [phone] (ABNORMAL) CRP (C-Reactive Protein) (05/01/2017 9:05 AM BATH MIX OPERATOR) athologist [facility] C-Reactive 39.4 (H) <=8.0 mg/L 05/01/2017 [facility] Protein (CRP), 1:56 PM [facility] [employer]oom [facility] LAB Specimen Anatomical Collection Method Collection Time Receive d Time (Source) Location / / Volume Laterality Blood (Blood, 05/01/2017 9:05 AM 05/01/20 17 Venous) BATH MIX OPERATOR 12:48 PM BATH MIX OPERATOR Leta Sanchez M.D. LAB BLOOD ADD-ON Performing Organization Address City/State/ZIP Code Phon e Number [facility]- [address] [place] [address] KIP LAB Hepatic Function Panel (05/01/2017 9:05 AM BATH MIX OPERATOR) [facility] gist Method Time Signature Bilirubin, Total, S 0.4 <=1.2 05/01/2017 [facility] mg/dL 11:45 AM [facility] [employer] LAB Bilirubin, Direct, S <0.2 0.0 - 0.3 05/01/2017 [facility] mg/dL 11:45 AM [facility] [employer] LAB Aspartate 19 8 - 48 05/01/2017 [facility] Aminotransferase U/L 11:45 AM [facility] Et3arraf (AST), [facility] LAB Alanine 9 7 - 55 05/01/2017 [facility] Aminotransferase U/L 11:45 AM [facility] (ALT), [facility] LAB Alkaline 99 45 - 115 05/01/2017 [facility] Phosphatase, S U/L 11:45 AM [facility] LAB Albumin, S 4.0 3.5 - 5.0 05/01/2017 [facility] g/dL 11:45 AM [facility] LAB Protein, Total, S 6.9 6.3 - 7.9 05/01/2017 [facility] g/dL 11:45 AM [facility] LAB Specimen Anatomical Collection Method Collection Time Receive d Time (Source) Location / / Volume Laterality Blood (Blood, 05/01/2017 9:05 AM 05/01/20 17 Venous) BATH MIX OPERATOR 10:53 AM BATH MIX OPERATOR Leta Sanchez M.D. LAB BLOOD ADD-ON Performing Organization Address City/State/ZIP Code Phon e Number [facility] [address] [place] [address] LAB CK (Creatine Kinase) (05/01/2017 9:05 AM BATH MIX OPERATOR) P athologist Signature Creatine Kinase 93 52 - 336 05/01/2017 [facility] (CK), S U/L 1:56 PM [facility] LAB Specimen Anatomical Collection Method Collection Time Receive d Time (Source) Location / / Volume Laterality Blood (Blood, 05/01/2017 9:05 AM 05/01/20 17 Venous) BATH MIX OPERATOR 12:48 PM BATH MIX OPERATOR Leta Sanchez MRoldan LAB BLOOD ADD-ON Performing Organization Address City/State/ZIP Code Phon e Number [facility]- [address] [place] [address] KIP LAB (ABNORMAL) CBC without Differential (05/01/2017 9:05 AM BATH MIX OPERATOR) [facility] gist Method Time Signature Hemoglobin 12.2 (L) 13.2 - 05/01/2017 [facility] 16.6 g/dL 9:22 AM [facility] LAB Hematocrit 37.6 (L) 38.3 - 05/01/2017 [facility] 48.6 % 9:22 AM [facility] LAB Erythrocytes 4.31 (L) 4.35 - 05/01/2017 [facility] 5.65 9:22 AM [facility] x10(12)/L [facility] MCV 87.2 78.2 - 05/01/2017 [facility] 97.9 fL 9:22 AM [facility] RBC Distrib Width 14.1 11.8 - 05/01/2017 [facility] 14.5 % 9:22 AM [facility] LAB Platelet Count 354 (H) 135 - 317 05/01/2017 [facility] x10(9)/L 9:22 AM [facility] Leukocytes 7.2 3.4 - 9.6 05/01/2017 [facility] x10(9)/L 9:22 AM [facility] Specimen Anatomical Collection Method Collection Time Receive d Time (Source) Location / / Volume Laterality Blood (Blood, 05/01/2017 9:05 AM 05/01/20 17 9:07 Venous) BATH MIX OPERATOR AM BATH MIX OPERATOR Leta Sanchez M.D. LAB BLOOD ADD-ON Performing Organization Address City/State/ZIP Code Phon e Number [facility]- [address] [place] [address] [facility]- [address] [place], [place] [address] [employer] LAB (ABNORMAL) Lipid Panel (05/01/2017 9:05 AM [facility]) athologist Signature Cholesterol, 93 mg/dL 05/01/2017 [facility] Total 11:45 AM [facility] [place] LAB Comment: ----REFERENCE VALUE---- Desirable: < 200 Borderline high: 200 - 239 High: > or = 240 Triglycerides 88 mg/dL 05/01/2017 11:45 AM [facility] [place] [facility] Comment: ----REFERENCE VALUE---- Normal: <150 Borderline high: 150-199 High: 200-499 Very high: > or =500 Cholesterol, HDL, S 34 (L) >=40 mg/dL 05/01/2017 11:45 AM [facility] [place] [facility] Calculated LDL 41 mg/dL 05/01/2017 11:45 AM [facility] [place] [facility] Comment: ----REFERENCE VALUE---- Desirable: <100 Above Desirable: 100-129 Borderline high: 130-159 High: 160-189 Very high: > or =190 Cholesterol, Non-HDL, 59 mg/dL 05/01/2017 11:45 A M BATH MIX OPERATOR [facility] CHRISTOPHER DALJIT Lomeli Comment: ----REFERENCE VALUE---- Desirable: <130 Above Desirable: 130-159 Borderline high: 160-189 High: 190-219 Very high: > or =220 Specimen Anatomical Collection Method Collection Time Receive d Time (Source) Location / / Volume Laterality Blood (Blood, 05/01/2017 9:05 AM 05/01/20 17 Venous) BATH MIX OPERATOR 10:53 AM BATH MIX OPERATOR Leta Sanchez M.D. LAB BLOOD ADD-ON Performing Organization Address City/State/ZIP Code Phon e Number [facility] [address] [place] [address] LAB documented in this encounter Visit Diagnoses Diagnosis Non-ST Elevation Myocardial Infarction ( HCC) - Primary Coronary Stent Status Post Pain Chest Ischemia Mesenteric Chronic (HCC) Pain Epigastric Polymyalgia Rheumatica (HCC) Hypertensive Heart And Chronic Kidney Di sease Without Heart Failure And With Stage 2 (Mild) Chronic Kidney Disease Anemia Abuse Tobacco Smoking Hyperlipidemia High Risk Medication documented in this encounter Additional Health Concerns Assessment Noted Time PHQ-9 Depression Total Score: 2 05/01/2017 8:09 AM BATH MIX OPERATOR documented as of this encounter Care Teams Reception Specialist Relationship Specialty Start Date End Date Leta Sanchez M.D. PCP - General 10/17/16 10/18/19 documented as of this encounter
--- OUTSIDE RECORDS SUMMARY | 2022-03-29 07:51 | XMS_ITS | Encounter Summary ---
:1950 Author Organization [facility] Address [address] [place] [address] Care Team Providers Name Role Phone Leta Sanchez M.D. Primary Care Provider Reason for Visit Reason Comments Med Refill Encounter Details Date Type Department Care Team Description 05/20/2017 Refill Department of [facility] Ambrosio Sanchez M.D. Med Refill Internal Medicine in [address] [place] [address], [facility] [address] [place] [address] [address] [facility] [place] [address] Social History Tobacco Use [...] How often do you attend taoism or denominational services? 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 [address] [phone] (Wo rk) documented as of this encounter Visit Diagnoses Not on filedocumented in this encounter Additional Health Concerns Assessment Noted Time PHQ-9 Depression Total Score: 2 05/01/2017 8:09 AM BURIAL VAULT DELIVERER AND INSTALLER documented as of this encounter Care Teams Population Health Manager Relationship Specialty Start Date End Date Leta Sanchez M.D. PCP - General 10/17/16 10/18/19 documented as of this encounter
--- OUTSIDE RECORDS SUMMARY | 2022-03-29 07:51 | XMS_ITS | Encounter Summary ---
:1950 Author Organization [facility] Address [address] [place] [address] Care Team Providers Name Role Phone Leta Sanchez M.D. Primary Care Provider Reason for Visit Reason Comments Communication Encounter Details Date Type Department Care Team Description 05/02/2017 Clinical Communication Department of Gareth Sanchez M.D. Communication [facility] Internal [facility] 300 [facility] [address] [place], [place] [phone] [address] (Fax) [phone] Social History Tobacco Use Types Packs/Day Years [...] How often do you attend bahai or yarsanism services? Never 04/16/2019 Do you [...] at Date Recorded Male 06/28/2019 8:47 AM WARM IN WORKER documented as of this encounter Miscellaneous Notes Telephone Encounter - Micheline Mart CBhaveshM.ABhavesh - 05/06/2017 2:50 PM CST Results were all ready given see other message IN WORKER Telephone Encounter - Leta Sanchez M.D. - 05/02/2017 7:23 PM CST Please call. Troponin I is normal. IN WORKER documented in this encounter Plan of Treatment Upcoming Encounters Date Type Specialty Care Team Description 04/12/2022 Office Visit Cardiovascular Disease Simone Gooden AP RN, C.N.P. [address] [phone] (Wo rk) documented as of this encounter Visit Diagnoses Not on filedocumented in this encounter Additional Health Concerns Assessment Noted Time PHQ-9 Depression Total Score: 2 05/01/2017 8:09 AM WARM IN WORKER documented as of this encounter Care Teams Alodize Machine Helper Relationship Specialty Start Date End Date Leta Sanchez M.D. PCP - General 10/17/16 10/18/19 documented as of this encounter
--- OUTSIDE RECORDS SUMMARY | 2022-03-29 07:51 | XMS_ITS | Encounter Summary ---
:1950 Author Organization [facility] Address [address] [place] [address] Care Team Providers Name Role Phone Leta Sanchez M.D. Primary Care Provider Reason for Visit Reason Comments Communication Encounter Details Date Type Department Care Team Description 04/24/2017 Clinical Communication Department of [facility] Leta Sanchez M.D. Communication Medicine[address] [place], [place] [address] [address] [place], [place] [phone] [address] (Fax) [phone] Social History Tobacco Use Types Packs/Day Years [...] How often do you attend jainism or mandaen services? 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 - 04/24/2017 3:21 PM CST Called and informed patient that his paperwork has been completed and faxed to [employer] at [phone]. RAFT PNEUDRAULIC SYSTEMS MECHANIC Telephone Encounter - Leta Sanchez M.D. - 04/24/2017 3:20 PM CST I filled it out this morning. Please fax it he is employer. RAFT PNEUDRAULIC SYSTEMS MECHANIC Telephone Encounter - Juany Hebert L.P.N. - 04/24/2017 1:29 PM CST Please advise. RAFT PNEUDRAULIC SYSTEMS MECHANIC Telephone Encounter - Anabella Phillips - 04/24/2017 12:31 PM CST Patient called to ask about the paperwork that was dropped off on the to be completed for his employer. Please call him back at [phone] RAFT PNEUDRAULIC SYSTEMS MECHANIC documented in this encounter Plan of Treatment Upcoming Encounters Date Type Specialty Care Team Description 04/12/2022 Office Visit Cardiovascular Disease Simone Gooden AP RN, C.N.P. [address] [phone] ([facility]) documented as of this encounter Visit Diagnoses Not on filedocumented in this encounter Additional Health Concerns Assessment Noted Time PHQ-9 Depression Total Score: 3 03/21/2017 11:44 AM CS T documented as of this encounter Care Teams Property Insurance Claims Examiner Relationship Specialty Start Date End Date Leta Sanchez M.D. PCP - General 10/17/16 10/18/19 documented as of this encounter
--- OUTSIDE RECORDS SUMMARY | 2022-03-29 07:51 | XMS_ITS | Encounter Summary ---
:1950 Author Organization [facility] Address [address] [place] [address] Care Team Providers Name Role Phone Leta Sanchez M.D. Primary Care Provider Reason for Visit Reason Comments Med Refill Encounter Details Date Type Department Care Team Description 05/20/2017 Refill Department of [facility] Ambrosio Sanchez M.D. Med Refill Internal Medicine in [address] [place] [address], [facility] [address] [place] [address] [address] [facility] [place] [address] Social History Tobacco Use [...] How often do you attend denominational or holiness services? Never 04/16/2019 Do you [...] at Date Recorded Male 06/28/2019 8:47 AM LOCKMAKER documented as of this encounter Plan of Treatment Upcoming Encounters Date Type Specialty Care Team Description 04/12/2022 Office Visit Cardiovascular Disease Simone Gooden AP RN, C.N.P. [address] [phone] (Wo rk) documented as of this encounter Visit Diagnoses Not on filedocumented in this encounter Additional Health Concerns Assessment Noted Time PHQ-9 Depression Total Score: 2 05/01/2017 8:09 AM LOCKMAKER documented as of this encounter Care Teams Nipple Threader Relationship Specialty Start Date End Date Leta Sanchez M.D. PCP - General 10/17/16 10/18/19 documented as of this encounter
--- OUTSIDE RECORDS SUMMARY | 2022-03-29 07:52 | XMS_ITS | Encounter Summary ---
:1950 Author Organization [facility] Address [address] [place] [address] Care Team Providers Name Role Phone Leta Sanchez M.D. Primary Care Provider Encounter Details Date Type Department Care Team Description 11/25/2016 Hospital Encounter HX [facility] Leta Sanchez M.D. [address] [facility], [facility] [address] [place] [phone] Social History Tobacco Use Types Packs/Day Years Used Date Smoking Tobacco: Every Day Alcohol Habits Answer Date Recorded How often [...] How often do you attend pentecostal or baptism services? 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 azithromycin (ZITHROMAX) 250 Zithromax 250 mg 0 0 08/26/2016 03/14/2017 mg tablet oral tablet See Instructions, 2 tablets on day 1, then 1 tablet on day 2 to 5. PO As Directed, 6 tab(s), 0 Refill(s) hydroCHLOROthiazide Take 1 tablet by 0 06/10/2016 03/31/2017 (for_HYDRODIURIL) 25 mg mouth every tablet morning. lisinopril Take 0.5 tablets 0 06/10/2016 03/31/20 17 (for_PRINIVIL,ZESTRIL) 40 mg by mouth every tablet morning. melatonin 10 mg capsule Take 1 capsule by 0 06/1003/31/2017 mouth at bedtime. nortriptyline (for_PAMELOR) Take 2 capsules 0 10/201603/31/2017 25 mg capsule by mouth at bedtime. predniSONE (for_DELTASONE) 5 Take 1 tablet by 0 0 06/10/2016 10/13/2017 mg tablet mouth every morning. documented as of this encounter Miscellaneous Notes Miscellaneous - Leta Sanchez M.D. - 11/25/2016 2:01 PM CDT Normal Results Letter November 25, 2016 SEVEN SALAZAR [address] [facility] [address] Dear SEVEN SALAZAR, I am pleased to report that your results from the following diagnostic test(s) are stable. Please follow up with us as we discussed during your visit or sooner if you have any concerns. If you have questions or concerns, please do not hesitate to call our office. Would you like to see your lab results quickly? If you have an e-mail account, join the other [phone],000 [facility] patients who use the Patient Online Services to conveniently access their lab results by calling [phone] to sign up for an account. It just takes a few minutes! Result Name Current Result Previous Result Normal Range Sodium Lvl (mmol/L) 136 11/25/2016 137 08/13/2016 135 - 145 Potassium Lvl (mmol/L) 4.2 11/25/2016 4.5 08/13/2016 3.6 - 5.2 Chloride (mmol/L) (L) 96 11/25/2016 (L) 95 08/13/2016 98 - 107 CO2 (mmol/L) (H) 30 11/25/2016 29 08/13/2016 22 - 29 AGAP (mmol/L) 10 11/25/2016 13 08/13/2016 7 - 15 Glucose Fasting (mg/dL) (H) 103 11/25/2016 90 01/29/2016 70 - 99 Creatinine (mg/dL) 1.00 11/25/2016 1.02 08/13/2016 0.80 - 1.30 EGFR (MDRD) (mL/min/1.73m2) >60 11/25/2016 >60 08/13/2016 >=60 - EGFR (MDRD) (mL/min/1.73m2) >60 11/25/2016 >60 08/13/2016 >=60 - [id number] (mg/dL) (H) 30 11/25/2016 19 08/13/2016 8 - 24 Calcium Lvl (mg/dL) 9.9 11/25/2016 9.8 08/13/2016 8.8 - 10.3 Hgb (g/dL) 14.6 11/25/2016 15.9 11/04/2016 13.5 - 17.5 Hct (%) 42.5 11/25/2016 46.1 11/04/2016 38.8 - 50.0 WBC (x10(9)/L) (H) 12.0 11/25/2016 (H) 11.5 11/04/2016 3.5 - 10.5 RBC (x10(12)/L) 4.89 11/25/2016 5.29 11/04/2016 4.32 - 5.72 MCV (fL) 86.9 11/25/2016 87.1 11/04/2016 81.0 - 95.0 RDW (%) 14.6 11/25/2016 14.3 11/04/2016 11.8 - 15.6 Platelet (x10(9)/L) 289 11/25/2016 306 11/04/2016 150 - 450 Neutro Absolute (10(9)/L) (H) 8.10 11/25/2016 (H) 8.32 11/04/2016 1.70 - 7.00 Lymph Absolute (x10(9)/L) 2.24 11/25/2016 1.92 11/04/2016 0.90 - 2.90 [place] Absolute (x10(9)/L) (H) 1.20 11/25/2016 0.90 11/04/2016 0.30 - 0.90 Eos Absolute (x10(9)/L) 0.41 11/25/2016 0.28 11/04/2016 0.05 - 0.50 Baso Absolute (x10(9)/L) 0.05 11/25/2016 0.04 11/04/2016 0.00 - 0.30 Sed Rate (mm/hr) 15 11/25/2016 (H) 24 11/04/2016 0 - 22 Sincerely, MARYCHUY CHAUDHARI [address] [place], [place] [id number] Electronic Signature Electronically Signed By: MARYCHUY CHAUDHARI APRN, CNP On: November 25, 2016 This document has images extracted. Source: [facility] POWERCHART Document Id: [id number] Electronically signed by Conversion, [facility] Core Maker Helper [id number] at 12/04/2016 12:31 AM CDT documented in this encounter Plan of Treatment Upcoming Encounters Date Type Specialty Care Team Description 04/12/2022 Office Visit Cardiovascular Disease Simone Gooden AP RN, C.N.P. [address] [phone] (Wo rk) documented as of this encounter Procedures Procedure Name Priority Date/Time Associated Comments Diagnosis AUTOMATED Routine 11/25/2016 8:33 AM Results f or this DIFFERENTIAL, B CDT procedure ar e in the results section. SEDIMENTATION RATE, B Routine 11/25/2016 8:33 AM Results for this CDT procedure are i n the results section. CBC WITH DIFFERENTIAL, Routine 11/25/2016 8:33 AM Results for this B CDT procedure are i n the results section. BASIC METABOLIC PANEL, Routine 11/25/2016 8:33 AM Results for this S/P CDT procedure are i n the results section. documented in this encounter Results (ABNORMAL) Automated Differential (11/25/2016 8:33 AM CDT) [facility] Method Time Signature Absolute 8.10 (H) 1.70 - POWERCHART Neutrophils 7.00 109L Lymphocytes 2.24 0.90 - POWERCHART 2.90 X109L Monocytes 1.20 (H) 0.30 - POWERCHART 0.90 X109L Eosinophils 0.41 0.05 - POWERCHART 0.50 X109L Absolute 0.05 0.00 - POWERCHART Basophil 0.30 X109L Specimen Anatomical Collection Method Collection Time Receive d Time (Source) Location / / Volume Laterality Blood 11/25/2016 8:33 AM 201 7 8:33 CDT AM CDT [facility] LAB BLOOD ADD-ON Performing Organization Address City/[facility]/ZIP Code Phon e Number POWERCHART POWERCHART NA Sedimentation Rate (11/25/2016 8:33 AM CDT) Analysis Performed At [facility] Time Signature Sedimentation 15 0 - 22 POWERCHART Rate, B MMHR Specimen (Source) Anatomical Collection Method Collection Time Re ceived Time Location / / Volume Laterality Blood 11/25/2016 8:33 AM CDT Leta Sanchez M.D. LAB BLOOD ADD-ON Performing Organization Address City/[facility]/ZIP Code Phon e Number POWERCHART POWERCHART NA (ABNORMAL) CBC with Differential (11/25/2016 8:33 AM CDT) Analysis Performed At [facility] Time Signature Leukocytes 12.0 (H) 3.5 - 10.5 POWERCHART X109L Erythrocytes 4.89 4.32 - POWERCHART 5.72 [id number] Hemoglobin 14.6 13.5 - POWERCHART 17.5 GDL Hematocrit 42.5 38.8 - POWERCHART 50.0 MCV 86.9 81.0 - POWERCHART 95.0 FL HX RDW 14.6 11.8 - POWERCHART 15.6 Platelet Count 289 150 - 450 POWERCHART X109L Specimen (Source) Anatomical Collection Method Collection Time Re ceived Time Location / / Volume Laterality Blood 11/25/2016 8:33 AM CDT Phpatrick Sanchez M.D. LAB BLOOD ADD-ON Performing Organization Address City/State/ZIP Code Phon e Number POWERCHART POWERCHART NA (ABNORMAL) BMP (Basic Metabolic Panel) (11/25/2016 8:33 AM CDT) P athologist Signature Sodium, S 136 135 - 145 POWERCHART MMOLL Potassium, S 4.2 3.6 - 5.2 POWERCHART MMOLL Chloride, S 96 (L) 98 - 107 POWERCHART MMOLL CO2 Total 30 (H) 22 - 29 POWERCHART MMOLL Comment: Reference ranges have not been established for patients that are <12 months of age. Glucose, Fasting, S 103 (H) 70 - 99 MGDL POWERCH ART BUN (Blood Urea Nitrogen), S 30 (H) 8 - 24 MGDL POWERCHART Creatinine 1.00 0.80 - 1.30 MGDL POWERCHART Calcium, Total, S 9.9 8.8 - 10.3 MGDL POWERC ARIZA Anion Gap 10 7 - 15 MMOLL POWERCHART HXeGFR (MDRD) >60 >=60 [id number] POWERCHART eGFR Black/ >60 >=60 [id number] POWERCHART Specimen (Source) Anatomical Collection Method Collection Time Re ceived Time Location / / Volume Laterality Blood 11/25/2016 8:33 AM CDT Leta Sanchez M.D. LAB BLOOD ADD-ON Performing Organization Address City/State/ZIP Code Phon e Number POWERCHART POWERCHART NA documented in this encounter Visit Diagnoses Not on filedocumented in this encounter Care Teams Terrazzo Supervisor Relationship Specialty Start Date End Date Leta Sanchez M.D. PCP - General 10/17/16 10/18/19 documented as of this encounter
--- OUTSIDE RECORDS SUMMARY | 2022-03-29 07:52 | XMS_ITS | Encounter Summary ---
:1950 Author Organization [facility] Address [address] [place] [address] Care Team Providers Name Role Phone Riley Sanchez M.D. Primary Care Provider Encounter Details Date Type Department Care Team Description 03/04/2017 Hospital Encounter HX [facility] INTERNMED Riley Sanchez M.D. [address] [facility], [facility] [address] [id number] Social History Tobacco Use Types Packs/Day [...] How often do you attend yazdanism or sikhism services? 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 documented as of this encounter Progress Notes Riley Sanchez M.D. - 03/04/2017 11:09 AM CDT [id number] CHIEF COMPLAINT/REASON FOR VISIT Abdominal pain and diarrhea. HISTORY OF PRESENT ILLNESS Mik is a 67-year-old male who presents to the clinic today for abdominal pain and diarrhea. He had throbbing pain in his upper stomach a couple of months ago. He tried medication for heartburnwithout relief. About three weeks ago, he had diarrhea and sharper stomach pain, which eventually resolved. This past Friday afternoon [02/28/2017], he developed diarrhea and abdominal pain again. It continued over the weekend. It is a bit better today. He has minor throbbing abdominal pain now. He has nausea, no vomiting. He has had one bowel movement today. It was watery. No blood or mucous. He hada low grade fever occasionally. He feels weak overall. No dizziness, lightheadedness, or dry mouth. He notices that his urine is occasionally dark yellow color. He had negative cystoscopy on 02/20/2017. There is no change in diet or medication. There is no one else sick at home. He denies any recent travel outside the [place]. He has not taken antibiotic recently. He had colonoscopy on 11/26/2011, which showed diverticulosis. He feels that his anxiety and depression is pretty well controlled. His PHQ-9 score is 1 today. He smokes 4 or 5 cigarettes a day. He denies any exertional chest pain, shortness of breath, or cough. Mik feels that his polymyalgia rheumatica is controlled as well. I reviewed and updated his medication list. We discussed potential side effects. There are no additional questions, concerns, or complaints. MEDICATIONS Albuterol CFC free 90 mcg/inh 2 puffs every 4 hours as needed. Hydrochlorothiazide 25 mg by mouth daily in the morning. Levaquin 500 mg by mouth daily for 10 days. Lisinopril 40 mg by mouth daily in the morning. Melatonin 10 mg by mouth at bedtime. Nortriptyline 50 mg by mouth at bedtime Prednisone 5 mg by mouth daily in the morning. ALLERGIES Influenza vaccine. Citalopram causes diarrhea. Pravastatin causes myalgia, arthralgia. Wellbutrin causes suicidal thoughts. SYSTEMS REVIEW Please see HPI for pertinent positives, otherwise rest of ROS negative. 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 Status post transurethral resection of bladder tumor, 02/19/2010. 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 Status post bladder biopsy, 01/02/2015. History of hypokalemia. Obesity. Tobacco use. History of partial complex seizures, currently asymptomatic. History of migraine headache. Hyperlipidemia. Depression. Hypertension. Chronic bronchitis. History of enteritis, esophagitis, and peptic ulcer. History of duodenitis, gastroesophageal reflux disease, 2 cm hiatal hernia. Diverticulosis. 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 Degenerative disk disease of cervical spine and lumbar spine. History of polymyalgia rheumatica. Insomnia. History of right kidney cyst per ultrasound, 10/21/2011 and 03/17/2015. Urethra stricture. Elevated sedimentation rate. Status post circumcision. Status post appendectomy, 1967. 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 Status post left C5-C6 foraminotomy and hemilaminectomy, left C6-C7 foraminotomy and hemilaminectomyand diskectomy, 05/31/1999. Status post lipoma excision from back, 07/16/1999. Status post right cataract extraction, 08/16/2008. Status post right cataract extraction, 2008. Status post excision of lipoma from anterior abdominal wall, 02/19/2010. Status post esophagogastroduodenoscopy, 11/25 1012. Status post colonoscopy, 11/26/2011. Status post right shoulder arthroplasty, 05/07/2013. Status post excision of skin lesion on dermal nevus on left cheek/nasolabial fold, 06/04/2013. PREVENTATIVE SERVICES Colonoscopy: 11/26/2011. Repeat in 10 years. PSA: 01/29/2016. Pneumovax: 02/05/2016. Prevnar: 01/24/2015. Tetanus booster: 02/12/2010. Influenza: Declined. SOCIAL HISTORY He is single. He lives alone. He has 7 children. He has one adopted daughter that lives in [place]. He smokes cigarettes, but wants to quit. He denies drug abuse. He drinks alcohol once a week. He is physically active. He works at [employer] in [place], [place]. FAMILY HISTORY Asthma in brother. Father had liver, lung, and pancreas cancer. Lung cancer in sister. Mother has cataract and glaucoma. Hearing loss in father. Hypertension in mother and brother. Myocardial infarction in older brother. Parkinsons disease in father. No family history of colon cancer or glaucoma. VITAL SIGNS HEIGHT: 173 cm. WEIGHT: 104.9 kg. BMI: 35.05 kg/m2. TEMP: 36.6 Deg C. PULSE: 90 /min. RESP: 18 /min. O2SAT: 97 %. SYSTOLIC: 133 mmHg. DIASTOLIC: 62 mmHg. PHYSICAL EXAMINATION GENERAL: Patient is sitting. No distress. Able to talk without interruption. SKIN: No rash, bruise, or nodules. HEAD: No facial rash, asymmetry, or sinus tenderness. EYES: PERRLA. EOMI. No pallor, icterus, or conjunctivitis. ENT: No nasal congestion, discharge, or bleeding. There is no ear infection or discharge. No mastoidtenderness. Tongue is moist and midline. No oral lesions. LYMPH NODES: No cervical or supraclavicular lymphadenopathy. PERIPHERAL VESSELS: Good radial pulses. HEART: No carotid bruit. No JVD. Regular rhythm. There is no S3, gallop, murmur, or thrill. LUNGS: Normal respiratory effort. He has dry crackles at base of lungs. ABDOMEN: Moves with respiration. Bowel sounds present. Soft. No rebound tenderness, guarding, or rigidity. No organomegaly. SPINE: No scoliosis or kyphosis. No spinous tenderness or mass. JOINTS: No joint swelling or deformity. No decreased range of motion. EXTREMITIES: No clubbing, cyanosis, edema, infection, or calf tenderness. MENTAL: Alert and oriented x 3. Normal mood and affect. NEURO: Grossly nonfocal exam. IMPRESSION/REPORT/PLAN 1. Abdominal pain and diarrhea with history of diverticulosis. There is no acute abdomen clinically.We discussed possible etiologies and further evaluation and management. Most likely he has diverticulitis. We will check abdominal x-ray and GI pathogen panel today and notify him with results. Prescription was given for Levaquin 500 mg daily for 10 days to cover diverticulitis. He was advised to drink plenty of fluids like Gatorade and Pedialyte to replace electrolytes. If he continues to have diarrhea, he should stop Hydrochlorothiazide. If he continues to have problems, we need to check CT of theabdomen. 2. Urinary bladder cancer, grade 1 of 3 urothelial carcinoma. He had negative cystoscopy on 02/20/2017. He will follow with Dr. Camejo in June 2017. 3. Leukocytosis. His white blood cell has been elevated in the past secondary to Prednisone therapy.We will check WBC today. 4. Depression with anxiety. It is stable. Today PHQ-9 score is 1. He was advised to continue Nortriptyline 50 mg at bedtime. 5. Benign essential hypertension. Blood pressure is controlled. He is stable from a cardiac standpoint. Need to continue sodium controlled diet and current medication. Monitor blood pressure regularly at home. Blood pressure goal is less than 140/90 mmHg. Need to continue cardiovascular risk factors mo dification. 6. Polymyalgia rheumatica. It is controlled with medication. We discussed potential side effects. Hewill continue Prednisone 5 mg daily in the morning. We need to check sedimentation rate today. 7. Impaired fasting glucose. There are no symptoms and signs suggestive for type 2 diabetes mellitus. Patient was advised to cut back calories and carbohydrates. We will check glucose and hemoglobin A1c today. 8. Tobacco abuse. I strongly recommended smoking cessation. He is not ready yet. We discussed complications. He has dry crackles at bases of lungs today so we will check chest x-ray. Todays studies: BMP, CBC, Hemoglobin A1c, HFP, Sed rate, TSH, GI pathogen panel, Abdomen x-ray, and Chest x-ray. Patient will be notified with results & recommendations. Return to the clinic on , 03/06/2017, at 2:30 p.m. for followup. Administrative Billing 25 minutes of this 35 minute visit was spent in face to face counseling and coordination of care. This document serves as a record of services personally performed by Dr. Riley Sanchez. It was created on their behalf by Juan Ramos, a trained medical doctor. The creation of this record is based on the scribe's personal observations and the provider's statements to them. This document has been checked and approved by the attending provider. Riley Sanchez M.D./arti Electronically Signed By: RILEY SANCHEZ MD On: 03/06/2017 05:16 PM Modified by and Electronically Signed by: RILEY SANCHEZ MD On: 03/06/2017 05:16 PM Source: [facility] MHSDOLBEYNONRADSYS Document Id: [id number] documented in this encounter Miscellaneous Notes Miscellaneous - Riley Sanchez M.D. - 03/06/2017 1:37 PM CDT Follow up appointment Document Contains Addenda Addendum by STEPHANIE BLACKMON LPN on March 06, 2017 14:29:32 CDT [facility] From: RILEY SANCHEZ MD To: JOSE Sanchez Nurse; Sent: 03/06/2017 13:37:35 CDT ! Subject: Follow up appointment Actions: Notify patient- refer to General Message Please call him to find out how's he doing. I asked him to make an appointment today, 03/06/2017 for follow up diarrhea and abdominal pain. Source: [facility] POWERCHART Document Id: [id number] Telephone Encounter - Justin Zuleta MLT([facility]) - 03/05/2017 4:30 PM CDT From: JUSTIN ZULETA MLT([facility]) To: RILEY SANCHEZ MD; Sent: 03/05/2017 16:30:04 CDT Cancelled GIP panel, need to reorder as STO please and thank you Source: [facility] POWERCHART Document Id: [id number] Electronically signed by Justin Zuleta MLT([facility]) at 03/07/2017 3:14 PM CDT Miscellaneous - Riley Sanchez M.D. - 03/04/2017 4:51 PM CDT Results Notification Document Contains Addenda Addendum by ROCHELLE NIX CMA on March 05, 2017 11:47:39 CDT Spoke with: ( x ) Patient ( _ ) Parent ( _ ) Spouse ( _ ) Child ( ) Other: _ Call back telephone number: Reason for Call: -results Chief Complaint: patient notifed of results and Doctors recommendations Patient/Caller response to Education/Information given: ( _x ) Verbalizes understanding of instructions ( _ ) Provide intervention per provider instruction ( _ ) Reinforce information already given ( _ ) Reinforce Plan of Care ( _ ) Provide preprinted information by mail (if applicable) Source/Reference used (if applicable): carmen_ OK to leave message on voice mail? _ OK to send message via patient portal? _ Patient told to expect return call: ( _ ) today ( _ ) tomorrow ( _ ) next work day Callers preferred language for Healthcare discussion: macedonian Was an aerial photograph interpreter used for this call? _ Other ( --_x ) na Addendum by STEPHANIE BLACKMON LPN on March 05, 2017 09:31:53 CDT Left a message for patient to return our call From: RILEY SANCHEZ MD To: JOSE Sanchez Nurse; Sent: 03/04/2017 16:51:34 CDT Show up: 03/04/2017 16:51:00 CDT Subject: Results Notification Actions: Notify patient of results, Notify Patient of Future Order Please call him. He has borderline diabetes mellitus. It could be due to Prednisone therapy. He needs to cut back calories, carbohydrates and portion of meals. Results: Date Result Name Ind Value Ref Range 03/04/2017 12:10 Hgb A1c (H) 6.0 % A1C ( - <=5.6) 03/04/2017 12:10 Hgb 14.7 g/dL (13.5 - 17.5) 03/04/2017 12:10 Hct 45.2 % (38.8 - 50.0) 03/04/2017 12:10 WBC (H) 16.4 x10(9)/L (3.5 - 10.5) 03/04/2017 12:10 RBC 5.11 x10(12)/L (4.32 - 5.72) 03/04/2017 12:10 MCV 88.5 fL (81.0 - 95.0) 03/04/2017 12:10 RDW 14.2 % (11.8 - 15.6) 03/04/2017 12:10 Platelet 404 x10(9)/L (150 - 450) 03/04/2017 12:10 Platelet Estimate Adequate 03/04/2017 12:10 Lymph Absolute see comment x10(9)/L (0.90 - 2.90) 03/04/2017 12:10 Banner Absolute see comment x10(9)/L (0.30 - 0.90) 03/04/2017 12:10 Eos Absolute see comment x10(9)/L (0.05 - 0.50) 03/04/2017 12:10 Baso Absolute see comment x10(9)/L (0.00 - 0.30) 03/04/2017 12:10 Neutro Manual (H) 78 % (44 - 69) 03/04/2017 12:10 Lymph Manual (L) 13 % (18 - 44) 03/04/2017 12:10 Banner Manual 6 % (5 - 12) 03/04/2017 12:10 Eos Manual 3 % (1 - 3) 03/04/2017 12:10 RBC Morphology Normal Source: [facility] POWERCHART Document Id: [id number] Miscellaneous - Riley Sanchez M.D. - 03/04/2017 2:45 PM CDT Results Notification Document Contains Addenda Addendum by ALOK SINGH LPN on March 04, 2017 15:57:13 CDT Spoke with: ( _x ) Patient ( _ ) Parent ( _ ) Spouse ( _ ) Child ( ) Other: _ Call back telephone number: [phone] Reason for Call: -returned call Chief Complaint: result notification given. Patient/Caller response to Education/Information given: ( x_ ) Verbalizes understanding of instructions ( _ ) Provide intervention per provider instruction ( _ ) Reinforce information already given ( _ ) Reinforce Plan of Care ( _ ) Provide preprinted information by mail (if applicable) Source/Reference used (if applicable): _ OK to leave message on voice mail? n/a OK to send message via patient portal? n/a Patient told to expect return call: ( no further call back needed ) today ( _ ) tomorrow ( _ ) next work day Callers preferred language for Healthcare discussion: macedonian Was an aerial photograph interpreter used for this call? no Other ( --nothing further needed at this time ) Addendum by ALOK SINGH LPN on March 04, 2017 14:51:21 CDT Attempted to contact patient. Message left to return my call. From: RILEY SANCHEZ MD To: JOSE Sanchez Nurse; Sent: 03/04/2017 14:45:28 CDT Show up: 03/04/2017 14:43:00 CDT Subject: Results Notification Actions: Notify patient of results, Notify Patient of Future Order Please call. White blood cell is higher than before. It could be due to Prednisone and/or infection. Sed rate is high at this time. CXR and abdominal x-ray are OK. No pneumonia. He should take Levaquin daily as prescribed and go to ED if he has more abdominal pain with fever and chills. Otherwise, I'll see him this . Result type: XR Chest 2 Views Result date: March 04, 2017 12:40 CDT Result status: Auth (Verified) Result title: XR Chest 2 Views Performed by: GIL LOUISE MD on March 04, 2017 12:56 CDT Verified by: GIL LOUISE MD on March 04, 2017 12:56 CDT Encounter info: [id number], [facility], 03/04/2017 - * Final Report * Reason For Exam Abdominal pain. Diarrhea. Tobacco use. Hx of diverticulosis Report EXAM: XR Chest 2 Views. DEMOGRAPHICS: 67 years Male. INDICATION: Abdominal pain. Diarrhea. Tobacco use. Hx of diverticulosis. COMPARISON: February 05, 2016. FINDINGS: Normal cardiac silhouette. No focal areas consolidation. No pneumothorax. Postop changes bilateral shoulder arthroplasties. Moderately prominent scattered degenerative changes mid, lower thoracic spine. Chest otherwise negative for acute findings. IMPRESSION: No acute findings. Result type: XR Abdomen 2 Views Result date: March 04, 2017 12:40 CDT Result status: Auth (Verified) Result title: XR Abdomen 2 Views Performed by: GIL LOUISE MD on March 04, 2017 12:55 CDT Verified by: GIL LOUISE MD on March 04, 2017 12:55 CDT Encounter info: [id number], [facility], 03/04/2017 - * Final Report * Reason For Exam Abdominal pain. Diarrhea. Tobacco use. Hx of diverticulosis Report EXAM: XR Abdomen 2 Views. DEMOGRAPHICS: 67 years Male. INDICATION: Abdominal pain. Diarrhea. Tobacco use. Hx of diverticulosis. COMPARISON: October 21, 2011. FINDINGS: Nonspecific bowel gas pattern. No appreciable free intraperitoneal air. No evidence of intestinal or colonic obstruction. Multiple calcified pelvic phleboliths. Scattered degenerative changes throughout the visualized axial and appendicular skeleton. IMPRESSION: No acute findings. Results: Date Result Name Ind Value Ref Range 03/04/2017 12:10 Hgb 14.9 g/dL (13.5 - 17.5) 03/04/2017 12:10 Hct 45.1 % (38.8 - 50.0) 03/04/2017 12:10 WBC (H) 16.6 x10(9)/L (3.5 - 10.5) 03/04/2017 12:10 RBC 5.13 x10(12)/L (4.32 - 5.72) 03/04/2017 12:10 MCV 87.9 fL (81.0 - 95.0) 03/04/2017 12:10 RDW 14.5 % (11.8 - 15.6) 03/04/2017 12:10 Platelet 352 x10(9)/L (150 - 450) 03/04/2017 12:10 Neutro Absolute (H) 12.79 10(9)/L (1.70 - 7.00) 03/04/2017 12:10 Lymph Absolute 1.95 x10(9)/L (0.90 - 2.90) 03/04/2017 12:10 Banner Absolute (H) 1.12 x10(9)/L (0.30 - 0.90) 03/04/2017 12:10 Eos Absolute (H) 0.73 x10(9)/L (0.05 - 0.50) 03/04/2017 12:10 Baso Absolute 0.02 x10(9)/L (0.00 - 0.30) 03/04/2017 12:10 Sed Rate (H) 33 mm/hr (0 - 22) Source: [employer] Document Id: [id number] Miscellaneous - Riley Sanchez M.D. - 03/04/2017 11:57 AM CDT Ambulatory Patient Summary [facility] [address] [place] [address] [id number] Visit Information Name: SEVEN SALAZAR [facility] Number: [id number] Current Date: 03/04/2017 11:57:14 Physicians Attending Provider: RILEY SANCHEZ MD Primary Care Provider: RILEY SANCHEZ MD SEVEN SALAZAR has been given the following list of follow-up instructions, medication list, and patient education materials: Follow-up Instructions Your Medications Here is a list of your medications. It is important to take your medications as directed. Use a pillbox or chart to help remind you to take your medications. Please let your doctor or nurse know if you have problems taking your medications. Medication/Strength How to Take Indications/Special Instructions/Comments/Notes for Patient Medication Changes/Routing albuterol (albuterol CFC free 90 mcg/inh inhalation aerosol) 2 puff(s), Inhalation, every 4 hours asneeded for Shortness of breath / Wheezing use with spacer chamber hydroCHLOROthiazide (hydroCHLOROthiazide 25 mg oral tablet) 1 Tablet(s), Oral, once a day (in the morning) levoFLOXacin (Levaquin 500 mg oral tablet) 1 Tablet(s), Oral, once a day x 10 day(s) [place] [address] lisinopril (lisinopril 40 mg oral tablet) 1 Tablet(s), Oral, once a day (in the morning) melatonin (melatonin 10 mg oral capsule) 1 cap, Oral, once a day (at bedtime) For sleep. nortriptyline (nortriptyline 25 mg oral capsule) 2 cap, Oral, once a day (at bedtime) Dose increasedon 06/10/2016. / For depression. predniSONE (predniSONE 5 mg oral tablet) 1 Tablet(s), Oral, once a day (in the morning) with food ormilk / For polymyalgia rheumatica. May cut back to 10 mg(2 tablets of 5 mg pill) daily, 06/10/2016. Stop Taking the Following Medications: Medication list as of 03-04-17 11:57 Attention: If you have any medications at home that are not on this list, DO NOT take them until youcontact your provider for clarification. Give a copy of your medication list to your primary care provider. Update your medication list any time medications or doses are changed and carry your medication list at all times in case of emergency. Electronically Signed By: RILEY SANCHEZ MD Signed On:04-MAR-2017 11:57:09 Your Allergies & Intolerances Substance Reaction Symptoms Category Comments pravastatin Myalgia Drug pravastatin Arthralgia Drug citalopram Diarrhea Drug Wellbutrin Suicidal thoughts Drug Influenza Virus Vaccine Sickness Drug Your Problem List Problem Status Onset Comments Tobacco use Active 02/12/2010 Lipoma, Anterior abdominal wall (RLQ) Active 02/12/2010 Hypokalemia Active 02/12/2010 Malignant Neoplasm of Lateral Wall of Urinary Bladder Active 02/19/2010 Obesity, BMI 35 Active 02/15/2010 Elevated Sedimentation Rate Active 02/12/2010 Degenerative disc disease, L3-L4 through L5-S1 Active 02/12/2010 02/24/10 Per X-Ray Degenerative disc disease, C5-C6, C6-C7 Active 02/12/2010 02/24/10 Per X-Ray Pain in shoulder, Right > Left Active 03/26/2010 Weight gain due to prednison Rx Active 09/28/2010 Skin Tags Active 12/07/2010 Insomnia Active 02/11/2011 Fatigue* Active 02/11/2011 Snoring Active 02/11/2011 Weight loss Active 02/11/2011 Migraine headache Active 07/01/2011 Pseudophakia Active 10/07/2011 Presbyopia Active 10/07/2011 Renal cyst, Right 2.2 x 2.5 x 2.7 cm per USG Active 10/21/2011 Osteoarthritis, 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 GERD [Gastroesophageal reflux disease] Active Hiatal hernia, 2 cm Active Esophagitis, Per EGD Active 11/26/2011 Skin Lesion, Left nasolabial fold Active 04/30/2013 High Risk Medication Active Hypertension (HTN) Chronic Active Mass Kidney, Right upper pole Active Arthralgia Most likely due to Intravesical BCG Rx Active Polymyalgia Rheumatica (PMR) Active Myalgia NOS Active Cancer of urinary bladder, Grade 1 of 3 Urothelial carcinoma Active Hyperlipidemia NOS Active High Risk Medication Active Leukocytosis Active Erosions Antral (Antritis) Active Arthritis NOS Active Arthritis Shoulder Bilateral Active Pain Back NOS Active Bronchitis Chronic Active Malignant Neoplasm of Lateral Wall of Urinary Bladder Active Abuse Tobacco Smoking NOS Active Stricture Urethral Postoperative Male Active Hypertension (HTN) Essential Benign Active Stricture Urethra Non Obstructing Active Depression Major NOS Active Cyst Kidney Right Benign per Ultrasound 03/17/2015 Active Depression Anxiety Active Insomnia Active Cancer Bladder Pers Hx Active Your Upcoming Appointments Date Time Location Provider No Appointments found Attention: Contact your local Clinic if further appointment detail needed. Consider Using Patient Online Services Patient Online Services is a secure online and Mobile application that lets you: ?? View lab and test results ?? View portions of your medical record including clinical notes, immunizations and discharge summaries ?? Request an appointment or medication refill ?? Review your appointment schedule ?? Send secure messages to your care team Its easy to create an account if you dont have one. Go to [email or web address] and click on Create Your Account. Then, follow the directions to complete the online form. Youll be asked for your [facility] number which you can find at the top of this document. Your Goals/Additional instructions: Source: [facility] POWERCHART Document Id: [id number] Miscellaneous - Riley Sanchez M.D. - 03/04/2017 11:57 AM CDT Ambulatory Discharge Medication List [address] [id number] Visit Information Name: CHRISSILASFRANKI AVINA [facility] Number: [id number] Current Date: 03/04/2017 11:57:13 Attending Provider: RILEY SANCHEZ MD Primary Care Provider: RILEY SANCHEZ MD CHRISSILASFRANKI AVINA has been given the following list of medications: Your Medications It is important to take your medications as directed. Use a pill box or chart to help remind you to take your medications. Please let your doctor or nurse know if you have problems taking your medications. Medication/Strength How to Take Indications/Special Instructions/Comments/Notes for Patient Medication Changes/Routing albuterol (albuterol CFC free 90 mcg/inh inhalation aerosol) 2 puff(s), Inhalation, every 4 hours asneeded for Shortness of breath / Wheezing use with spacer chamber hydroCHLOROthiazide (hydroCHLOROthiazide 25 mg oral tablet) 1 Tablet(s), Oral, once a day (in the morning) levoFLOXacin (Levaquin 500 mg oral tablet) 1 Tablet(s), Oral, once a day x 10 day(s) New Routed to [address] [address] lisinopril (lisinopril 40 mg oral tablet) 1 Tablet(s), Oral, once a day (in the morning) melatonin (melatonin 10 mg oral capsule) 1 cap, Oral, once a day (at bedtime) For sleep. nortriptyline (nortriptyline 25 mg oral capsule) 2 cap, Oral, once a day (at bedtime) Dose increasedon 06/10/2016. / For depression. predniSONE (predniSONE 5 mg oral tablet) 1 Tablet(s), Oral, once a day (in the morning) with food ormilk / For polymyalgia rheumatica. May cut back to 10 mg(2 tablets of 5 mg pill) daily, 06/10/2016. Stop Taking the Following Medications: Medication list as of 03-04-17 11:57 Attention: If you have any medications at home that are not on this list, DO NOT take them until youcontact your provider for clarification. Give a copy of your medication list to your primary care provider. Update your medication list any time medications or doses are changed and carry your medication list at all times in case of emergency. Electronically Signed By: RILEY SANCHEZ MD Signed On:04-MAR-2017 11:57:09 Additional Information: Source: [employer] Document Id: [id number] Miscellaneous - Stephanie Blackmon L.P.N. - 03/04/2017 11:21 AM CDT PHQ-9 PHQ-9 Entered On: 03/04/2017 11:22 CDT Performed On: 03/04/2017 11:21 CDT by STEPHANIE BLACKMON LPN PHQ-9 Little interest or pleasure in doing things : Not at all Feeling down, depressed, or hopeless : Not at all Trouble falling or staying asleep, or sleeping too much : Not at all Feeling tired or having little energy : Not at all Poor appetite or overeating : Several days Feeling bad about yourself or that you are a failure : Not at all Trouble concentrating on things : Not at all Moving or speaking slowly; restless or fidgety : Not at all Thoughts that you would be better off /hurting self : Not at all PHQ-9 Calculated Score : 1 Problems make work, home, or dealing with others : Not difficult at all STEPHANIE BLACKMON LPN - 03/04/2017 11:21 CDT Source: [employer] Document Id: [id number] CDT!13 Miscellaneous - Stephanie Blackmon L.P.N. - 03/04/2017 11:20 AM CDT Health Assessment Health Assessment Entered On: 03/04/2017 11:21 CDT Performed On: 03/04/2017 11:20 CDT by STEPHANIE BLACKMON LPN Health Assessment Complete Health Assessment Complete or Modified : Annual Health Assessment Annual Health Assessment Completed : Yes STEPHANIE BLACKMON LPN - 03/04/2017 11:20 CDT Nutrition Nutrition Risk Factors by History Adult : None STEPHANIE BLACKMON LPN - 03/04/2017 11:20 CDT Functional Current Daily Living Assistance : None STEPHANIE BLACKMON LPN - 03/04/2017 11:20 CDT Dependent Habits Exposure to Tobacco Smoke : Patient smokes Smoking Status : Current every day smoker Tobacco 2A : Yes Tobacco Use/Currently Using : Yes Tobacco Use/Last 30 Days : Yes Tobacco Use/Last 12 months : Yes Type : Cigarettes: Less than 20 per day Tobacco Use/Advised to Quit : Yes Alcohol Use : Yes STEPHANIE BLACKMON LPN - 03/04/2017 11:20 CDT Caffeine Use Grid Caffeine Use : Current Type : Coffee, Tea Frequency : Daily Amount : 2 cup coffee/2 tea daily STEPHANIE BLACKMON LPN - 03/04/2017 11:20 CDT Recreational Drug Use Grid Drug Use : None STEPHANIE BLACKMON LPN - 03/04/2017 11:20 CDT AUDIT Tool How Often Do You Have A Drink : Monthly or less How Many Drinks in a Day When Drinking : 1 or 2 Six or More Drinks On One Occassion : Never Audit Phase 1 Score : 1 Not Able To Stop Drinking Once Started : Never Failed To Do What Is Normally Expected : Never Needed A First Drink In The Morning : Never Feeling of Guilt/Remorse After Drinking : Never Unable to Remember What Happened : Never Has Your Drinking Caused Injury : No Anyone Concerned About Your Drinking : No AUDIT Phase 2 Score : 0 AUDIT Score : 1 STEPHANIE BLACKMON LPN - 03/04/2017 11:20 CDT Psychosocial Domestic Abuse Concerns : None Behavioral Health Screen/Safety Assmt : No Orthodox Preference : Unknown STEPHANIE BLACKMON LPN - 03/04/2017 11:20 CDT Advance Directive Advanced Directives : No Advance Directive Additional Information : No STEPHANIE BLACKMON LPN - 03/04/2017 11:20 CDT Educ Needs Learning Style Preference Adult Grid Patient : None Family : None STEPHANIE BLACKMON LPN - 03/04/2017 11:20 CDT Source: [facility] POWERCHART Document Id: [id number] CDT!52 Miscellaneous - Stephanie Blackmon L.P.N. - 03/04/2017 11:18 AM CDT Adult Paperhanger Intake/History Adult Paperhanger Intake/History Entered On: 03/04/2017 11:20 CDT Performed On: 03/04/2017 11:18 CDT by STEPHANIE BLACKMON LPN Intake Chief Complaint : 1. Abd pain with diarrhea x 5 days Temperature Core : 36.6 DegC(Converted to: 97.9 DegF) Peripheral Pulse Rate : 90 /min Respiratory Rate : 18 /min Systolic Blood Pressure : 133 mmHg Diastolic Blood Pressure : 62 mmHg NIBP Mean : 86 mmHg BP Location : Left upper extremity Blood Pressure Cuff Size : Regular SpO2 : 97 % Oxygen Therapy : Room air Height : 173 cm(Converted to: 5 ft 8 inch(es), 68 inch(es)) Actual Weight : 104.90 kg(Converted to: 231 lb 4 oz) Weight Source : Standing scale Dosing Weight Clinic : 104.9 kg Clinic BSA : 2.25 Body Mass Index : 35.05 kg/m2 STEPHANIE BLACKMON LPN - 03/04/2017 11:18 CDT General Info Information Given By : Patient Preferred Communication Mode : Verbal, Written Languages : [place] Is Patient Female and 13-50 no hysterectomy : No STEPHANIE BLACKMON LPN - 03/04/2017 11:18 CDT Subjective Pain Symptoms : Yes STEPHANIE BLACKMON LPN - 03/04/2017 11:18 CDT Pain Scale Pain Scale Verbal 0-10 : Open STEPHANIE BLACKMON LPN - 03/04/2017 11:18 CDT Pain Pain Assessment Grid Pain 1 Location : Abdomen STEPHANIE BLACKMON [facility] - 03/04/2017 11:18 CDT Dependent Habits Exposure to Tobacco Smoke : Patient smokes Smoking Status : Current every day smoker Tobacco 2A : Yes Tobacco Use/Currently Using : Yes Tobacco Use/Last 30 Days : Yes Tobacco Use/Last 12 months : Yes Type : Cigarettes: Less than 20 per day Tobacco Use/Advised to Quit : Yes LORRI STEPHANIE Rosa [facility] - 03/04/2017 11:18 CDT Caffeine Use Grid Caffeine Use : Current Type : Coffee, Tea Frequency : Daily Amount : 2 cup coffee/2 tea daily LORRI STEPHANIE Rosa [facility] - 03/04/2017 11:18 CDT Recreational Drug Use Grid Drug Use : None STEPHANIE BLACKMON [employer] - 03/04/2017 11:18 CDT Source: [employer] Document Id: [id number] CDT!50 documented in this encounter Plan of Treatment Upcoming Encounters Date Type Specialty Care Team Description 04/12/2022 Office Visit Cardiovascular Disease Simone Gooden AP RN, C.N.P. [address] [phone] (Wo rk) documented as of this encounter Procedures Procedure Name Priority Date/Time Associated Comments Diagnosis HXMANUAL DIFFERENTIAL Routine 03/04/2017 12:10 Re sults for this PM CDT procedure are i n the results section. HEPATIC FUNCTION Routine 03/04/2017 12:10 Results for this PANEL, S PM CDT procedure are i n the results section. AUTOMATED Routine 03/04/2017 12:10 Results for this DIFFERENTIAL, B PM CDT procedure ar e in the results section. SEDIMENTATION RATE, B Routine 03/04/2017 12:10 Re sults for this PM CDT procedure are i n the results section. CBC WITH DIFFERENTIAL, Routine 03/04/2017 12:10 R esults for this B PM CDT procedure are i n the results section. THYROID-STIMULATING Routine 03/04/2017 12:10 Resu lts for this HORMONE-SENSITIVE PM CDT procedure are in (S-TSH) the results section. HEMOGLOBIN A1C, B Routine 03/04/2017 12:10 Result s for this PM CDT procedure are i n the results section. BASIC METABOLIC PANEL, Routine 03/04/2017 12:10 R esults for this S/P PM CDT procedure are i n the results section. DX ABDOMEN SUPINE WITH Routine 03/04/2017 12:09 R esults for this UPRIGHT OR DECUBITUS 2 PM CDT proce dure are in VIEWS the results section. DX CHEST AP OR PA AND Routine 03/04/2017 12:09 Re sults for this LATERAL 2 VIEWS PM CDT procedure ar e in the results section. documented in this encounter Results (ABNORMAL) HXMANUAL DIFFERENTIAL (03/04/2017 12:10 PM CDT) Analysis Performed At Patho logist Time Signature Absolute 78 (H) 44 - 69 POWERCHART Neutrophil Count HX Lymph Manual 13 (L) 18 - 44 POWERCHART Monocytes 6 5 - 12 POWERCHART HX Eos Manual 3 1 - 3 POWERCHART PLT Estimate Adequate POWERCHART RBC Morphology Normal POWERCHART Specimen Anatomical Collection Method Collection Time Receive d Time (Source) Location / / Volume Laterality Blood 03/04/2017 12:10 03/04/2017 PM CDT 12:56 PM CDT Phunt Phyo M.D. LAB HISTORICAL ORDERS Performing Organization Address City/[facility]/ZIP Code Phon e Number POWERCHART POWERCHART NA (ABNORMAL) Automated Differential (03/04/2017 12:10 PM CDT) Patholo gist Method Time Signature Absolute 12.79 (H) 1.70 - POWERCHART Neutrophils 7.00 109L Lymphocytes see comment 0.90 - POWERCHART 2.90 X109L Comment: see manual differential Monocytes see comment 0.30 - 0.90 X109L POWERCHART Comment: see manual differential Eosinophils see comment 0.05 - 0.50 X109L POWERCHA RT Comment: see manual differential Absolute Basophil see comment 0.00 - 0.30 X109L PO WERCHART Comment: see manual differential Specimen Anatomical Collection Method Collection Time Receive d Time (Source) Location / / Volume Laterality Blood 03/04/2017 12:10 03/04/2017 PM CDT 12:10 PM CDT Phunt Phyo M.D. LAB BLOOD ADD-ON Performing Organization Address City/State/ZIP Code Phon e Number POWERCHART POWERCHART NA (ABNORMAL) Sedimentation Rate (03/04/2017 12:10 PM CDT) Patholo gist Method Time Signature Sedimentation 33 (H) 0 - 22 POWERCHART Rate, B MMHR Specimen (Source) Anatomical Collection Method Collection Time Re ceived Time Location / / Volume Laterality Blood 03/04/2017 12:10 PM CDT Riley Sanchez M.D. LAB BLOOD ADD-ON Performing Organization Address City/[facility] Code Phon e Number POWERCHART POWERCHART NA (ABNORMAL) CBC with Differential (03/04/2017 12:10 PM CDT) Analysis Performed At Patho logist Time Signature Leukocytes 16.4 (H) 3.5 - 10.5 POWERCHART X109L Erythrocytes 5.11 4.32 - POWERCHART 5.72 [id number] Hemoglobin 14.7 13.5 - POWERCHART 17.5 GDL Hematocrit 45.2 38.8 - POWERCHART 50.0 MCV 88.5 81.0 - POWERCHART 95.0 FL HX RDW 14.2 11.8 - POWERCHART 15.6 Platelet Count 404 150 - 450 POWERCHART X109L Specimen (Source) Anatomical Collection Method Collection Time Re ceived Time Location / / Volume Laterality Blood 03/04/2017 12:10 PM CDT Riley Sanchez M.D. LAB BLOOD ADD-ON Performing Organization Address [facility] Code Phon e Number POWERCHART POWERCHART NA S-TSH (Thyroid-Stimulating Hormone - Sensitive) (03/04/2017 12:10 PM CDT) P athologist Signature TSH 0.91 0.27 - 4.20 POWERCHART (Thyrotropin) KATALINA Comment: Biotin has been identified by the heri cturer as a potential interfering substance. Higher concentrations of biotin may be found in multivitamins, hair/nail supplements, and workout supplements. If the result does not match clinical observat ions, repeat testing after patient refrains from the use of supplements for at least 12 hours. Specimen (Source) Anatomical Collection Method Collection Time Re ceived Time Location / / Volume Laterality Blood 03/04/2017 12:10 PM CDT Riley Sanchez M.D. LAB BLOOD ADD-ON Performing Organization Address City/[facility]/ZIP Code Phon e Number POWERCHART POWERCHART NA Hepatic Function Panel (03/04/2017 12:10 PM CDT) Patholo gist Method Time Signature Alanine 11 7 - 55 POWERCHART Amniotransferase, LD UNITL Albumin, S 4.2 3.2 - 5.2 POWERCHART GDL Alkaline 102 40 - 130 POWERCHART Phosphatase, S UL Aspartate 18 8 - 48 POWERCHART Aminotransferase UNITL (AST), S Bilirubin, Direct, S <0.2 <=0.3 POWERCHAR T MGDL Bilirubin, Total, S 0.2 <=1.2 POWERCHART MGDL Total Protein, S 7.5 6.4 - 8.3 POWERCHART GDL Specimen (Source) Anatomical Collection Method Collection Time Re ceived Time Location / / Volume Laterality Blood 03/04/2017 12:10 PM CDT [facility] M.D. LAB BLOOD ADD-ON Performing Organization Address [facility] Phon e Number POWERCHART POWERCHART NA (ABNORMAL) Hemoglobin A1c (03/04/2017 12:10 PM CDT) athologist Signature Hemoglobin A1c, 6.0 (H) <=5.6 A1C POWERCHART B Specimen (Source) Anatomical Collection Method Collection Time Re ceived Time Location / / Volume Laterality Blood 03/04/2017 12:10 PM CDT [facility] M.D. LAB BLOOD ADD-ON Performing Organization Address City/[facility] Phon e Number POWERCHART POWERCHART NA (ABNORMAL) BMP (Basic Metabolic Panel) (03/04/2017 12:10 PM CDT) P athologist Signature Sodium, S 138 135 - 145 POWERCHART MMOLL Potassium, S 4.6 3.6 - 5.2 POWERCHART MMOLL Chloride, S 95 (L) 98 - 107 POWERCHART MMOLL CO2 Total 27 22 - 29 POWERCHART MMOLL Comment: Reference ranges have not been established for patients that are <12 months of age. BUN (Blood Urea Nitrogen), S 26 (H) 8 - 24 MGDL POWERCHART Creatinine 1.12 0.80 - 1.30 MGDL POWERCHART Calcium, Total, S 10.1 8.8 - 10.3 MGDL POWERC ARIZA Anion Gap 16 (H) 7 - 15 MMOLL POWERCHART HXeGFR (MDRD) >60 >=60 [id number] POWERCHART eGFR Black/ >60 >=60 [id number] POWERCHART Glucose 109 70 - 139 MGDL POWERCHART Specimen (Source) Anatomical Collection Method Collection Time Re ceived Time Location / / Volume Laterality Blood 03/04/2017 12:10 PM CDT Riley Sanchez M.D. LAB BLOOD ADD-ON Performing Organization Address City/State/ZIP Code Phon e Number POWERCHART POWERCHART NA DX Abdomen Supine with Upright or Decubitus 2 Views (03/04/2017 12:09 PM CDT) Anatomical Region Laterality Modality Abdomen Right Radiographic Imaging Specimen (Source) Anatomical Collection Method Collection Time Re ceived Time Location / / Volume Laterality 03/04/2017 12:09 PM CDT Addenda Addendum by Provider, Javid Samson 03/04/2017 12:09 PM CDT RAD^^^OW XR Abdomen 2 Views 03/04/2017 12:09:31 XR Abdomen 2 Views Impressions 03/04/2017 12:55 PM CDT No acute findings. Narrative 03/04/2017 12:55 PM CDT EXAM: ??XR Abdomen 2 Views. DEMOGRAPHICS: ??67 years Male. INDICATION: ??Abdominal pain. Diarrhea. Tobacco use. Hx of diverticulosis. COMPARISON: ??October 21, 2011. FINDINGS: ??Nonspecific bowel gas patter n. No appreciable free intraperitoneal air. No evidence of inte stinal or colonic obstruction. Multiple calcified pelvic phleboliths. S cattered degenerative changes throughout the visualized axial and appe ndicular skeleton. Procedure Note Gil Louise M.D. / ProviderEverett M.D. - 03/06/2017 EXAM: XR Abdomen 2 Views. DEMOGRAPHICS: 67 years Male. INDICATION: Abdominal pain. Diarrhea. To bacco use. Hx of diverticulosis. COMPARISON: October 21, 2011. FINDINGS: Nonspecific bowel gas pattern. No appreciable free intraperitoneal air. No evidence of inte stinal or colonic obstruction. Multiple calcified pelvic phleboliths. S cattered degenerative changes throughout the visualized axial and appe ndicular skeleton. IMPRESSION: No acute findings. Radha Byrd(R), R.TBhavesh(R)(M) IMG DIAGNOSTIC IMAGING PROCEDURES DX Chest AP or PA and Lateral 2 Views (03/04/2017 12:09 PM CDT) Anatomical Region Laterality Modality Chest N/A Radiographic Imaging Specimen (Source) Anatomical Collection Method Collection Time Re ceived Time Location / / Volume Laterality 03/04/2017 12:09 PM CDT Addenda Addendum by Provider, Javid Samson 03/04/2017 12:09 PM CDT RAD^^^OW XR Chest 2 Views 03/04/2017 12:09:31 XR Chest 2 Views Impressions 03/04/2017 12:56 PM CDT No acute findings. Narrative 03/04/2017 12:56 PM CDT EXAM: ??XR Chest 2 Views. DEMOGRAPHICS: ??67 years Male. INDICATION: ??Abdominal pain. Diarrhea. Tobacco use. Hx of diverticulosis. COMPARISON: ??February 05, 2016. FINDINGS: Normal cardiac silhouette. No focal areas consolidation. No pneumothorax. Postop changes bilateral shoulder arthro plasties. Moderately prominent scattered degenerat nini changes mid, lower thoracic spine. Chest otherwise negative for acute findings. Procedure Note Gil Louise M.D. / Provider, Everett agosto M.D. - 03/06/2017 EXAM: XR Chest 2 Views. DEMOGRAPHICS: 67 years Male. INDICATION: Abdominal pain. Diarrhea. To bacco use. Hx of diverticulosis. COMPARISON: February 05, 2016. FINDINGS: Normal cardiac silhouette. No focal areas consolidation. No pneumothorax. Postop changes bilateral shoulder arthro plasties. Moderately prominent scattered degenerat nini changes mid, lower thoracic spine. Chest otherwise negative for acute findings. IMPRESSION: No acute findings. Radha Byrd(R), Rochelle(R)(M) IMG DIAGNOSTIC IMAGING PROCEDURES documented in this encounter Visit Diagnoses Not on filedocumented in this encounter Additional Health Concerns Assessment Noted Time PHQ-9 Depression Total Score: 1 03/04/2017 11:21 AM CD T documented as of this encounter Care Teams Regulator Pin Inserter Relationship Specialty Start Date End Date Riley Sanchez M.D. PCP - General 10/17/16 10/18/19 documented as of this encounter
--- OUTSIDE RECORDS SUMMARY | 2022-03-29 07:52 | XMS_ITS | Encounter Summary ---
:1950 Author Organization [facility] Address [address] [place] [address] Care Team Providers Name Role Phone Leta Sanchez M.D. Primary Care Provider Encounter Details Date Type Department Care Team Description 03/07/2017 Abstract Department of Family Medicine, Provider, Historical [facility], in [place], [place] [address] [place] [address] [facility] [phone] Social History Tobacco Use Types Packs/Day Years [...] at Date Recorded Male 06/28/2019 8:47 AM SHED HAND documented as of this encounter Plan of Treatment Upcoming Encounters Date Type Specialty Care Team Description 04/12/2022 Office Visit Cardiovascular Disease Simone Gooden AP RN, C.N.P. [address] [phone] (Wo rk) documented as of this encounter Visit Diagnoses Not on filedocumented in this encounter Additional Health Concerns Assessment Noted Time PHQ-9 Depression Total Score: 1 03/04/2017 11:21 AM CD T documented as of this encounter Care Teams Senior Executive Compensation Analyst Relationship Specialty Start Date End Date Leta Sanchez M.D. PCP - General 10/17/16 10/18/19 documented as of this encounter
--- OUTSIDE RECORDS SUMMARY | 2022-03-29 07:52 | XMS_ITS | Encounter Summary ---
:1950 Author Organization [facility] Address [address] [place] [address] Care Team Providers Name Role Phone Leta Sanchez M.D. Primary Care Provider Reason for Visit Reason Comments Follow-up CT Scan Appointment Request (Routine) - Closed Specialty Diagnoses / Procedures Referred By Contact Refer red To Contact Community Internal Medicine Referral ID Status Reason Start Date Expiration Date Visits Requ ested Visits Authorized [id number] Closed 03/17/2017 09/13/2017 1 1 Encounter Details Date Type Department Care Team Description 03/21/2017 Office Visit Department of Leta Sanchez M.D . Pain Epigastric; Community Internal [address], Div erticulitis Colon; Medicine in [place] [address] Constipation; [place], [place], [place] Diarrhea; [address] [address] Leukocytosis; JAYNA THIBODEAUX Polymyal daniel Rheumatica (HCC); [id number] Calcification Coronary Arter y [phone] Social History Tobacco Use Types Packs/Day Years Used Date Smoking Tobacco: Every Day Cigarettes Smokeless Tobacco: Never Tobacco Cessation: Ready to Quit: No; Co unseling Given: No Alcohol Habits Answer Date Recorded How often [...] How often do you attend latter-day or mormonism services? 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 - 03/21/2017 11:45 AM CST CHIEF COMPLAINT/REASON FOR VISIT 1. Followup on chronic medical problems. 2. Discuss test results. 3. Discuss CT scan results. HISTORY OF PRESENT ILLNESS Seven Salazar is a 67 y.o. male who presents to the clinic today for a followup from 03/14/2017. He had blood tests on 03/14/2017. Results were remarkable for hemoglobin 13.9, hematocrit 40.9, leukocytes 11.4, BUN 49, creatinine 1.74, calcium 10.2, EGFR 39, glucose 85, and CRP 66.6. His labs showed decline in kidney function so he was advised to stop Hydrochlorothiazide and drink Pedialyte or Gatorade for fluid replacement. We scheduled CT of the abdomen and pelvis with IV contrast at [facility] because of abdominal pain and diarrhea. Patient had CT of the abdomen and pelvis on 03/19/2017: Findings: Clear included lung bases. Coronary artery calcifications. The unenhanced liver, spleen, pancreas, partly contracted gallbladder, both adrenal glands, and left kidney are within normal limits. There terri stable 3.7 cm right renal cyst. Vascular calcifications in each renal hilus. There is a moderate-sized duodenal diverticulum arising from the 2nd or 3rd portion of the duodenum measuring 3.4 x 3.8 cmon image 56 series 2 not significantly changed. This contains particulate matter and high-density material likely oral contrast. The stomach although incompletely distended is within normal limits. There is no evidence for small or large bowel obstruction or ileus. Surgically absent appendix. The urinary bladder is largely decompressed but grossly unremarkable. Mild prostatic enlargement. Normal seminal vesicles. Degenerative disc disease of the lumbar spine. Degenerative facet arthropathy. Minor anterolisthesis of L4 in relationship to L5 likely secondary to pars defects. Impression: 1. No acute abdominopelvic process identified. 2. Moderate-sized duodenal diverticulum similar to the prior study. 3. Arterial vascular calcifications in the chest, abdomen, and pelvis. Right renal cyst. Absent appendix. He continues to have throbbing upper abdominal pain, more with exertion. He denies any diarrhea. He has not had bowel movement for the last four or five days. He has been unable to collet stool sample.No nausea, vomiting, fever, or chills. He passes gas occasionally. He had oatmeal and banana this morning. We discussed symptoms and signs of diverticulum and looked at several images on the web for assistance. He denies personal history of heart disease or heart attack. He does not recall having a stress test in the past. Because of exertional nature of his epigastric pain and coronary artery calcification per CT scan, it was decided to check cardiac enzyme to make sure he doesn't have myocardial is chemia. Mik has history of polymyalgia rheumatica and takes Prednisone 5 mg daily in the morning. Because ofhigh inflammatory marker, he needs to continue Prednisone for now. I reviewed and updated his medication list. We discussed potential side effects. There are no additional questions, concerns, or complaints. MEDICATIONS Medication Sig Dispense Refill ??? albuterol sulfate 90 mcg/actuation aerosol powdr breath activated Inhale 2 puffs every 4 (four) hours as needed. ??? lisinopril (for_PRINIVIL,ZESTRIL) 40 mg tablet Take 1 tablet by mouth every morning. ??? nortriptyline (for_PAMELOR) 25 mg capsule Take 2 capsules by mouth at bedtime. ??? predniSONE (for_DELTASONE) 5 mg tablet Take 1 tablet by mouth every morning. ??? hydroCHLOROthiazide (for_HYDRODIURIL) 25 mg tablet Take 1 tablet by mouth every morning. ??? melatonin 10 mg capsule Take 1 capsule by mouth at bedtime. ??? psyllium, with aspartame, (for_METAMUCIL) 3.4 gram/5.8 gram oral powder Take 1 Dose by mouth 3 (three) times a day. 90 Dose 11 ALLERGIES Allergen Reactions ??? Bupropion Hcl Other (see comments) Ceranusha listed no reactions. Suicidal thoughts. ??? Citalopram Diarrhea ??? Influenza Virus Vaccine Bivalent Other (see comments) Sickness, Cerner listed no reactions. ??? Pravastatin Myalgia and Other (see comments) REVIEW OF SYSTEMS Please see history of present illness for pertinent positives, otherwise rest of review of systems negative. PAST MEDICAL/SURGICAL HISTORY Diagnosis ??? Bronchitis Chronic (HCC) ??? Polymyalgia Rheumatica (HCC) ??? 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 Hypertension Chronic ??? Malignant Neoplasm Of Bladder (HCC) ??? Depression Anxiety ??? Depression Major ??? Hypertension Essential Benign ??? 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 Corticosteroid Treatment [facility] Systemic ??? Abuse Tobacco Smoking ??? Arthralgia ??? Arthritis Shoulder ??? Cancer Bladder Personal History ??? Cyst Renal ??? Degeneration Disc Cervical ??? Degeneration Disc Lumbar ??? Elevated Sedimentation Rate ??? Erosions Antral ??? Fatigue ??? Reflux Esophageal ??? Hernia Diaphragmatic Without Obstruction ??? High Risk Medication ??? Hyperlipidemia ??? Insomnia ??? Leukocytosis ??? Lipoma Skin ??? Mass Kidney ??? Migraine Headache ??? Myalgia ??? Obesity NOS ??? DJD (OA) Knee Guy ??? Pain Back ??? Pain Shoulder ??? Presbyopia ??? Intraocular Lens Implant Status Post ??? Tumor Skin Uncertain Behavior ??? Tag Skin ??? Dyspnea NOS ??? Stricture Urethra Procedure Laterality Date ??? APPENDECTOMY N/A 02/23/1968 ??? ARTHROPLASTY OF SHOULDER N/A 05/07/2013 ??? CATARACT EXTRACTION AND INSERTION OF INTRAOCULAR LENS N/A 08/16/2008 ??? CATARACT EXTRACTION AND INSERTION OF INTRAOCULAR LENS N/A 02/22/2009 ??? EXCISION LIPOMA 02/19/2010 ??? EXCISION OF LESION OF SKIN N/A 06/04/2013 ??? EXCISION OF LIPOMA N/A 07/16/1999 ??? LAMINECTOMY N/A 05/31/1999 ??? OTHER SURGICAL HISTORY N/A 04/11/1998 Excision of benign lesion of scalp and neck ??? TRANSURETHRAL RESECTION OF BLADDER NEOPLASM N/A 02/19/2010 SOCIAL HISTORY ??? Marital status: Spouse name: N/A ??? Number of children: N/A ??? Years of education: N/A Social History Main Topics ??? Smoking status: Current Every Day Smoker Types: Cigarettes ??? Smokeless tobacco: Never Used ??? Alcohol use None ??? Drug use: Unknown ??? Sexual activity: Not Asked FAMILY HISTORY Problem Relation Age of Onset ??? Hypertension Mother ??? Cataracts Mother ??? Glaucoma Mother ??? Hypertension Brother ??? Asthma Brother ??? Coronary artery disease Brother ??? Heart attack Brother ??? Hearing loss Father ??? Parkinsons disease Father ??? Pancreatic cancer Father ??? Liver cancer Father ??? Lung cancer Sister VITAL SIGNS 03/21/17 1139 BP: 104/64 Pulse: 76 Resp: 16 Weight: 104.5 kg PHYSICAL EXAMINATION GENERAL: Patient is sitting. No distress. Able to talk without interruption. HEAD: No facial rash, asymmetry or sinus tenderness. EYES: PERRLA. EOMI. No pallor, icterus or conjunctivitis. ENT: No mastoid tenderness. Tongue is moist and [...] oriented x 3. Normal mood and affect. ASSESSMENT/PLAN #1 Pain Epigastric #2 Diverticulitis Colon #3 Diarrhea #4 Constipation He continues to have throbbing epigastric abdominal pain. He no longer has diarrhea. Constipation could be contributing to his abdominal pain. He was advised to drink plenty of fluids and take Metamucil daily. There was no acute abdomen clinically. No evidence of bowel obstruction. CT of the abdomen showed duodenal diverticulum and arterial vascular calcifications in the chest, abdomen, and pelvis. To complete the workup, we need to make sure his symptoms are not related to his heart. We will check EKG and cardiac enzyme today. Need to schedule exercise stress test with Sestamibi scan as soon as possible at [facility]. We will follow these results. He should contact me if there is no improvement or worsening of symptoms. #5 Calcification Coronary Artery We discussed his abdominal CT scan results from 03/19/2017. We discussed atypical symptoms od coronary artery disease. We also discussed further evaluation and management. Need to schedule stress test as above. Need to continue cardiovascular risk factor modification. #6 Leukocytosis It is most likely related to infection and Prednisone therapy. We will monitor. #7 Polymyalgia Rheumatica (HCC) He has no complaints in this regard currently. He will continue Prednisone 5 mg daily. If he does not have polymyalgia rheumatica symptoms along with normal inflammatory markers, we may cut back prednisone dose 1 mg every month. #8 Discussed Test Results I reviewed test results from 03/14/[address] scan of abdomen and pelvis from 03/19/2017. All questions were answered. #9 Today Studies Patient had following studies done today: BMP, CBC, CK, Troponin I, an EKG. Patient will be notifiedwith results & recommendations. #10 Followup Visit Return to the clinic in 1 week for followup. This document serves as a record of services personally performed by Dr. Leta Sanchez. It was created on their behalf by Juan Ramos, a trained medical staff director. The creation of this record is based on the scribe's personal observations and the provider's statements to them. This document has been checked and approved by the attending provider. GER documented in this encounter Plan of Treatment Upcoming Encounters Date Type Specialty Care Team Description 04/12/2022 Office Visit Cardiovascular Disease Simone Gooden AP RN, C.N.P. [address] [phone] (Wo rk) documented as of this encounter Procedures Procedure Name Priority Date/Time Associated Diagnosis Comme nts ECG Routine 03/21/2017 12:51 PM Pain Epigast leesa Results for this DRAGGER Calcification procedure are in Coronary Artery the results section. CBC WITHOUT Routine 03/21/2017 12:49 PM Pain Epigast leesa Results for this DIFFERENTIAL, B DRAGGER Calcification procedure a re in Coronary Artery the results section. CREATINE KINASE Routine 03/21/2017 12:49 PM Pain Epigast leesa Results for this (CK), S DRAGGER Calcification procedure are in Coronary Artery the results section. BASIC METABOLIC Routine 03/21/2017 12:49 PM Pain Epigast leesa Results for this PANEL, S/P DRAGGER Calcification procedure are in Coronary Artery the results section. [facility] Routine 03/21/2017 12:36 PM Resu lts for this MISC STAT TEST 1 DRAGGER procedure a re in the results section. documented in this encounter Results ECG 12 Lead (03/21/2017 12:51 PM DRAGGER) Patholo gist Method Time Signature Ventricular 76 BPM MUSE Rate ECG/Min IL Interval 172 ms MUSE QRSD Interval 130 ms MUSE QT Interval 412 ms MUSE QTC Interval 463 ms MUSE P [place] 49 degrees MUSE R [place] 22 degrees MUSE T Wave [place] 10 degrees MUSE Clinical Normal sinus rhythm MUSE Diagnosis Premature atrial complexes Right bundle branch block with secondary ST-T abnormalities When compared with ECG of 12-FEB-2016 12:17, T wave inversion now evident in Inferior leads Specimen Anatomical Collection Method Collection Time Receive d Time (Source) Location / / Volume Laterality 03/21/2017 12:51 03/21/2017 1:07 PM DRAGGER PM DRAGGER Narrative This result has an attachment that is no t available. Leta Sanchez M.D. ECG ORDERABLES Performing Organization Address City/State/ZIP Code Phon e Number MUSE MUSE NA CK (Creatine Kinase) (03/21/2017 12:49 PM DRAGGER) P athologist Signature Creatine Kinase 180 52 - 336 03/21/2017 [facility] (CK), S U/L 10:21 PM [facility] LAB Specimen Anatomical Collection Method Collection Time Receive d Time (Source) Location / / Volume Laterality Blood (Blood, 03/21/2017 12:49 03/21/2017 9:50 Venous) PM DRAGGER PM DRAGGER Leta Sanchez M.D. LAB BLOOD ADD-ON Performing Organization Address City/State/ZIP Code Phon e Number [facility]- [address] [place] [address] KIP LAB (ABNORMAL) BMP (Basic Metabolic Panel) (03/21/2017 12:49 PM [facility]) P athologist Signature Potassium, S 4.4 3.6 - 5.2 03/21/2017 [facility] mmol/L 5:43 PM [facility] [place] [facility] Sodium, S 136 135 - 145 03/21/2017 [facility] mmol/L 5:43 PM [facility] [place] [facility] Chloride, S 90 (L) 98 - 107 03/21/2017 [facility] mmol/L 5:43 PM [facility] [place] [facility] Bicarbonate, S 28 22 - 29 03/21/2017 [facility] mmol/L 5:43 PM [facility] [employer] [place] [facility] Anion Gap 18 (H) 7 - 15 03/21/2017 [facility] 5:43 PM [facility] [place] [facility] BUN (Blood Urea 18 8 - 24 03/21/2017 [facility] Nitrogen), S mg/dL 5:43 PM [facility] [place] [facility] Creatinine 1.24 0.74 - 03/21/2017 [facility] 1.35 mg/dL 5:43 PM [facility] [place] [facility] eGFR 59 (L) >=60 03/21/2017 [facility] Non-Black/Afric mL/min/BSA 5:43 PM [facility] [employer] [facility] EM- an [place] [facility] Comment: ----ADDITIONAL INFORMATION---- Estimated GFR calculated using the 2009 CKD_EPI creatinine equation. eGFR-Black/ 69 >=60 mL/min/BSA 2016 5:43 PM [facility] [place] [facility] Comment: ----ADDITIONAL INFORMATION---- Estimated GFR calculated using the 2009 CKD_EPI creatinine equation. Calcium, Total, S 10.3 (H) 8.9 - 10.1 mg/dL 03/21/2017 5 :43 PM [facility] [place] [facility] Glucose, S 78 70 - 140 mg/dL 03/21/2017 5:43 PM [facility] [place] [facility] Specimen Anatomical Collection Method Collection Time Receive d Time (Source) Location / / Volume Laterality Blood (Blood, 03/21/2017 12:49 03/21/2017 3:38 Venous) PM DRAGGER PM DRAGGER Leta Sanchez M.D. LAB BLOOD ADD-ON Performing Organization Address City/[facility]/ZIP Code Phon e Number [facility] [address] [place] [address] LAB (ABNORMAL) CBC without Differential (03/21/2017 12:49 PM DRAGGER) Patholo gist Method Time Signature Hemoglobin 13.8 13.2 - 03/21/2017 [facility] 16.6 g/dL 1:08 PM [facility] Hematocrit 40.9 38.3 - 03/21/2017 [facility] 48.6 % 1:08 PM [facility] LAB Erythrocytes 4.68 4.35 - 03/21/2017 [facility] 5.65 1:08 PM [facility] x10(12)/L [facility] LAB MCV 87.4 78.2 - 03/21/2017 [facility] 97.9 fL 1:08 PM [facility] RBC Distrib Width 14.3 11.8 - 03/21/2017 [facility] 14.5 % 1:08 PM [facility] LAB Platelet Count 323 (H) 135 - 317 03/21/2017 [facility] x10(9)/L 1:08 PM [facility] LAB Leukocytes 9.5 3.4 - 9.6 03/21/2017 [facility] x10(9)/L 1:08 PM [facility] LAB Specimen Anatomical Collection Method Collection Time Receive d Time (Source) Location / / Volume Laterality Blood (Blood, 03/21/2017 12:49 03/21/2017 Venous) PM DRAGGER 12:57 PM DRAGGER Leta Sanchez M.D. LAB BLOOD ADD-ON Performing Organization Address City/State/ZIP Code Phon e Number [facility]- [address] [place] [address] [facility]- [address] [place], [place] [address] Misc STAT Test 1 (03/21/2017 12:36 PM DRAGGER) P athologist Signature Test Name Troponin I 03/21/2017 [facility] 3:36 PM DRAGGER - G4S Result See Scanned 03/21/2017 [facility] Report 3:36 PM DRAGGER - G4S Specimen Anatomical Collection Method Collection Time Receive d Time (Source) Location / / Volume Laterality Varies 03/21/2017 12:36 03/21/2017 3:35 PM DRAGGER PM DRAGGER Leta Sanchez M.D. LAB MISC ORDERABLES Performing Organization Address City/State/ZIP Code Phon e Number [facility] - [employer] [address] [place] [address] [phone] documented in this encounter Visit Diagnoses Diagnosis Pain Epigastric Diverticulitis Colon Constipation Diarrhea Leukocytosis Polymyalgia Rheumatica (HCC) Calcification Coronary Artery documented in this encounter Additional Health Concerns Assessment Noted Time PHQ-9 Depression Total Score: 3 03/21/2017 11:44 AM CS T documented as of this encounter Care Teams Global Transportation Manager Relationship Specialty Start Date End Date Leta Sanchez M.D. PCP - General 10/17/16 10/18/19 documented as of this encounter
--- OUTSIDE RECORDS SUMMARY | 2022-03-29 07:52 | XMS_ITS | Encounter Summary ---
:1950 Author Organization [facility] Address [address] [place] [address] Care Team Providers Name Role Phone Riley Sanchez M.D. Primary Care Provider Encounter Details Date Type Department Care Team Description 11/04/2016 Hospital Encounter HX [facility] Riley Sanchez M.D. [address] [facility], [facility] [address] [phone] Social History Tobacco Use Types Packs/Day [...] How often do you attend bahai or orthodoxy services? 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 - 11/04/2016 11:01 AM CDT Sed rate 24 11/04/2016 Document Contains Addenda Addendum by CHUCKY DUNCAN LPN on November 08, 2016 12:02:57 CDT After several attempts I was unable to contact patient. This message was mailed to patient requesting he respond back to us. Addendum by KEYUR ALANIZ LPN on November 07, 2016 11:31:38 CDT Attemped to call patient no answer will try again later Addendum by EVERETT LEÓN on November 07, 2016 10:20:44 CDT the patient called back.. Addendum by CHUCKY DUNCAN LPN on November 07, 2016 09:35:45 CDT Left message for patient to return my call. Addendum by KEYUR ALANIZ LPN on November 06, 2016 10:03:15 CDT message left for patient to return call Addendum by CHUCKY DUNCAN LPN on November 04, 2016 11:06:57 CDT Left message for patient to return my call. From: RILEY SANCHEZ MD To: JOSE Sanchez Nurse; Sent: 11/04/2016 11:01:13 CDT Show up: 11/04/2016 11:00:00 CDT Subject: Sed rate 24 11/04/2016 Actions: Notify patient of results, Notify Patient of Future Order Please call. Sed rate has improved, but still high. How's he doing? Any symptoms of polymyalgia rheumatica? If so, he needs to continue current dose of Prednisone Rx and recheck blood tests in 1 month. Results: Date Result Name Ind Value Ref Range 11/04/2016 10:19 Sed Rate (H) 24 mm/hr (0 - 22) Source: [facility] [employer] Document Id: [id number] Electronically signed by Rivka [facility] Pickling Operator [id number] at 11/09/2016 2:13 AM CDT Miscellaneous - Riley Sanchez M.D. - 11/04/2016 10:58 AM CDT Results Notification 11/04/2016 Document Contains Addenda Addendum by CHUCKY DUNCAN LPN on November 08, 2016 12:03:24 CDT After several attempts I was unable to contact patient. Message mailed to patient's home address. Addendum by KEYUR ALANIZ LPN on November 07, 2016 11:31:24 CDT Attemped to call patient no answer will try again later Addendum by CHUCKY DUNCAN LPN on November 07, 2016 09:35:54 CDT Left message for patient to return my call. Addendum by KEYUR ALANIZ LPN on November 06, 2016 14:10:49 CDT message left for patient to return call Addendum by CHUCKY DUNCAN LPN on November 04, 2016 11:07:09 CDT Left message for patient to return my call. From: RILEY SANCHEZ MD To: JOSE Sanchez Nurse; Sent: 11/04/2016 10:58:17 CDT Show up: 11/04/2016 10:58:00 CDT Subject: Results Notification 11/04/2016 Actions: Notify patient of results Please call. CBC is OK except for high WBC, most likely due to Prednisone Rx. Results: Date Result Name Ind Value Ref Range 11/04/2016 10:19 Hgb 15.9 g/dL (13.5 - 17.5) 11/04/2016 10:19 Hct 46.1 % (38.8 - 50.0) 11/04/2016 10:19 WBC (H) 11.5 x10(9)/L (3.5 - 10.5) 11/04/2016 10:19 RBC 5.29 x10(12)/L (4.32 - 5.72) 11/04/2016 10:19 MCV 87.1 fL (81.0 - 95.0) 11/04/2016 10:19 RDW 14.3 % (11.8 - 15.6) 11/04/2016 10:19 Platelet 306 x10(9)/L (150 - 450) 11/04/2016 10:19 Neutro Absolute (H) 8.32 10(9)/L (1.70 - 7.00) 11/04/2016 10:19 Lymph Absolute 1.92 x10(9)/L (0.90 - 2.90) 11/04/2016 10:19 [place] Absolute 0.90 x10(9)/L (0.30 - 0.90) 11/04/2016 10:19 Eos Absolute 0.28 x10(9)/L (0.05 - 0.50) 11/04/2016 10:19 Baso Absolute 0.04 x10(9)/L (0.00 - 0.30) Source: [facility] [employer] Document Id: [id number] Electronically signed by Conversion, [facility] Pickling Operator [id number] at 11/09/2016 2:13 AM CDT documented in this encounter Plan of Treatment Upcoming Encounters Date Type Specialty Care Team Description 04/12/2022 Office Visit Cardiovascular Disease Simone oGoden AP RN, C.N.P. [address] [phone] (Wo rk) documented as of this encounter Procedures Procedure Name Priority Date/Time Associated Comments Diagnosis AUTOMATED Routine 11/04/2016 10:19 Results for this DIFFERENTIAL, B AM CDT procedure ar e in the results section. SEDIMENTATION RATE, B Routine 11/04/2016 10:19 Re sults for this AM CDT procedure are i n the results section. CBC WITH DIFFERENTIAL, Routine 11/04/2016 10:19 R esults for this B AM CDT procedure are i n the results section. documented in this encounter Results (ABNORMAL) Automated Differential (11/04/2016 10:19 AM CDT) [facility] gist Method Time Signature Absolute 8.32 (H) 1.70 - POWERCHART Neutrophils 7.00 109L Lymphocytes 1.92 0.90 - POWERCHART 2.90 X109L Monocytes 0.90 0.30 - POWERCHART 0.90 X109L Eosinophils 0.28 0.05 - POWERCHART 0.50 X109L Absolute 0.04 0.00 - POWERCHART Basophil 0.30 X109L Specimen Anatomical Collection Method Collection Time Receive d Time (Source) Location / / Volume Laterality Blood 11/04/2016 10:19 11/04/2016 AM CDT 10:19 AM CDT Riley Sanchez M.D. LAB BLOOD ADD-ON Performing Organization Address City/State/ZIP Code Phon e Number POWERCHART (ABNORMAL) Sedimentation Rate (11/04/2016 10:19 AM CDT) [facility] gist Method Time Signature Sedimentation 24 (H) 0 - 22 POWERCHART Rate, B MMHR Specimen (Source) Anatomical Collection Method Collection Time Re ceived Time Location / / Volume Laterality Blood 11/04/2016 10:19 AM CDT Riley Sanchez M.D. LAB BLOOD ADD-ON Performing Organization Address City/State/ZIP Code Phon e Number POWERCHART (ABNORMAL) CBC with Differential (11/04/2016 10:19 AM CDT) Analysis Performed At Path logist Time Signature Leukocytes 11.5 (H) 3.5 - 10.5 POWERCHART X109L Erythrocytes 5.29 4.32 - POWERCHART 5.72 X5745N Hemoglobin 15.9 13.5 - POWERCHART 17.5 GDL Hematocrit 46.1 38.8 - POWERCHART 50.0 MCV 87.1 81.0 - POWERCHART 95.0 FL HX RDW 14.3 11.8 - POWERCHART 15.6 Platelet Count 306 150 - 450 POWERCHART X109L Specimen (Source) Anatomical Collection Method Collection Time Re ceived Time Location / / Volume Laterality Blood 11/04/2016 10:19 AM CDT Riley Sanchez M.D. LAB BLOOD ADD-ON Performing Organization Address City/State/ZIP Code Phon e Number POWERCHART documented in this encounter Visit Diagnoses Not on filedocumented in this encounter Care Teams Real Estate Job Titles Relationship Specialty Start Date End Date Riley Sanchez M.D. PCP - General 10/17/16 10/18/19 documented as of this encounter
--- OUTSIDE RECORDS SUMMARY | 2022-03-29 07:52 | XMS_ITS | Encounter Summary ---
:1950 Author Organization [facility] Address [address] [place] [address] Care Team Providers Name Role Phone Unavailable Primary Care Provider Unavailable Encounter Details Date Type Department Care Team Description 10/07/2016 Hospital Encounter HX [facility] Tamika Camejo M.D. [address] [place] [phone] (Wo rk) Social History Tobacco [...] How often do you attend islam or mosque services? 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 documented as of this encounter Procedure Notes Tamika Camejo M.D. - 10/07/2016 10:46 AM CDT CYSTO CHIEF COMPLAINT / REASON FOR VISIT CYSTOSCOPY REPORT INDICATION 66 year old male with a history of grade [...] a wide-bore non- obstructing bulbous urethral stricture. He is currently taking Prednisone 5 mg daily. INSTRUMENT Flexible cystoscope. ANESTHESIA 2% aqueous lidocaine jelly introduced into the urethra. PROCEDURE During this procedure the universal protocol was utilized. The patient's identity was confirmed by no less than two patient identifiers, correct procedure was verified, correct site was verified and marked as applicable and a final pause was completed. The patient was placed in a supine position. The genitalia were prepped and draped sterilely. The urethra was anesthetized with 2% aqueous lidocaine jelly. The cystoscope was advanced into the urethra. FINDINGS Meatus: Normal. Urethra: A wide-bore non-obstructing bulbous urethral stricture is noted, no additional strictures noted. Prostate: Length: 3 cm. Lateral lobes: Mild lateral lobe hypertrophy without visual obstruction. Middle lobe: Absent. Bladder neck: Unremarkable. Bladder: Residual urine: Minimal. Ureteral orifices: Singular bilaterally, normal position on the trigone, slit- like in configurationand with clear efflux of urine noted bilaterally. Trabeculation: Mild. Foreign bodies: No evidence of stones, or other foreign bodies. Mild scattered inflammation, most notably near the dome of the bladder. COMMENTS The procedure was well tolerated by the patient. He was discharged from the office in satisfactory condition. Post-cystoscopy instructions were reviewed with him. IMPRESSION / REPORT / PLAN 1. Bladder cancer, no obvious recurrent lesions 2. Urethral stricture, stable and not-obstructing PLAN: Send urine for FISH and cytology, if negative repeat cystoscopy in 3 months. Consideration for additional BCG was given;however I am reluctant to proceed with BCG given the use of prednisone and his history poor tolerance. If cytology or FISH is positive he will need biopsies in the OR, likely with Mitomycin-C. Electronically Signed By: TAMIKA CAMEJO MD On: 10/07/2016 10:47 AM Source: [facility] [employer] Document Id: [id number] documented in this encounter Miscellaneous Notes Miscellaneous - Kyaw Crawford APRN, R.N. - 10/14/2016 4:23 PM CDT Results Notification Document Contains Addenda Addendum by SHELLIE IRWIN LPN on October 14, 2016 16:29:13 CDT Patient was informed of normal results. From: KYAW CRAWFORD APRN, RN To: Urology Nurse; Sent: 10/14/2016 16:23:16 CDT ! Show up: 10/14/2016 16:23:16 CDT Subject: Results Notification Actions: Notify patient of results Reminder Comments: FISH is negative Results: Date Result Name Value 10/07/2016 10:40 FUROC Result Sum-Mas Negative 10/07/2016 10:40 FUROC Result-Mas See Comment 10/07/2016 10:40 FUROC Interp-Mas See Comment 10/07/2016 10:40 FUROC Reason for Ref-Mas See Comment 10/07/2016 10:40 FUROC Spec-Mas Varies 10/07/2016 10:40 FUROC Source-[place] Urine, NOS 10/07/2016 10:40 FUROC Released By-[place] See Comment [facility] Document Id: [id number] Electronically signed by [employer], [facility] Senior Cyber Security Analyst [id number] at 11/06/2016 9:00 AM CDT Mook - Tamika Camejo M.D. - 10/08/2016 1:07 PM CDT Results Notification Document Contains Addenda Addendum by SHELLIE IRWIN LPN on October 14, 2016 16:24:34 CDT Patient was informed of normal results. Addendum by SHELLIE IRWIN LPN on October 08, 2016 15:48:12 CDT Fish pending. From: TAMIKA CAMEJO MD To: Urology Nurse; Sent: 10/08/2016 13:07:07 CDT ! Show up: 10/08/2016 13:07:07 CDT Subject: Results Notification Actions: Notify patient of results Reminder Comments: cyto is neg Results: Date Result Type Result Name 10/08/2016 12:18 Document - DOC Non-HEATING PLANT SUPERINTENDENT Cytology Source: [employer] Document Id: [id number] Electronically signed by [employer], [facility] Senior Cyber Security Analyst [id number] at 11/06/2016 9:00 AM CDT Tamika Wallace M.D. - 10/07/2016 10:45 AM CDT Ambulatory Patient Summary [facility] [address] [place], [place] [phone] Visit Information Name: SEVEN SALAZAR [facility] Number: [id number] Current Date: 10/07/2016 10:45:55 Physicians Attending Provider: TAMIKA CAMEJO MD Primary Care Provider: RILEY SANCHEZ MD [...] breath / Wheezing use with spacer chamber azithromycin (Zithromax 250 mg oral tablet) See Instructions 2 tablets on day 1, then 1 tablet on day 2 to 5. PO As Directed hydroCHLOROthiazide (hydroCHLOROthiazide 25 mg oral tablet) 1 Tablet(s), Oral, once a day (in the morning) lisinopril (lisinopril 40 mg oral tablet) 1 [...] the Following Medications: Medication list as of 10-07-16 10:45 Attention: If you have any medications at home that are not on this list, DO NOT take them until youcontact your provider for clarification. Give a copy of your medication list to your primary care provider. Update your medication list any time medications or doses are changed and carry your medication list at all times in case of emergency. Electronically Signed By: TAMIKA CAMEJO MD Signed On:07-OCT-2016 10:45:50 Your Allergies & Intolerances Substance Reaction Symptoms [...] 03/17/2015 Active Depression Anxiety Active Insomnia Active Your Upcoming Appointments Date Time Location Provider 10/25/2016 08:15 [facility] Lab [facility] 11/25/2016 08:15 [facility] Lab [facility] 12/02/2016 08:00 [facility] Intern[facility] Riley Sanchez MD Attention: Contact your local Clinic if further [...] if you dont have one. Go to [email or web address] and click on Create Your Account. Then, follow the directions to complete the online form. Youll be asked for your [facility] number which you can find at the top of this document. Your Goals/Additional instructions: Source: [facility] [employer]ART Document Id: [id number] Miscellaneous - Tamika Camejo M.D. - 10/07/2016 10:45 AM CDT Ambulatory Discharge Medication List [facility] [address] [place] [phone] Visit Information Name: SEVEN SALAZAR [facility] Number: [id number] Current Date: 10/07/2016 10:45:54 Attending Provider: TAMIKA CAMEJO MD Primary Care Provider: RILEY SANCHEZ MD CHRISSEVEN has been given the following list of [...] breath / Wheezing use with spacer chamber azithromycin (Zithromax 250 mg oral tablet) See Instructions 2 tablets on day 1, then 1 tablet on day 2 to 5. PO As Directed hydroCHLOROthiazide (hydroCHLOROthiazide 25 mg oral tablet) 1 Tablet(s), Oral, once a day (in the morning) lisinopril (lisinopril 40 mg oral tablet) 1 [...] the Following Medications: Medication list as of 10-07-16 10:45 Attention: If you have any medications at home that are not on this list, DO NOT take them until youcontact your provider for clarification. Give a copy of your medication list to your primary care provider. Update your medication list any time medications or doses are changed and carry your medication list at all times in case of emergency. Electronically Signed By: TAMIKA CAMEJO MD Signed On:07-OCT-2016 10:45:50 Additional Information: Source: [facility] [employer]ART Document Id: [id number] Miscellaneous - Shellie Irwin, L.P.N. - 10/07/2016 10:27 AM CDT Adult Manager Net Intake/History Adult Manager Net Intake/History Entered On: 10/07/2016 10:30 CDT Performed On: 10/07/2016 10:27 CDT by SHELLIE IRWIN LPN Intake Chief Complaint : recheck cystoscopy-history of bladder cancer patient states no problems Temperature Core : 36.5 DegC(Converted to: 97.7 DegF) Peripheral Pulse Rate : 80 /min Systolic Blood Pressure : 126 mmHg Diastolic Blood Pressure : 72 mmHg NIBP Mean : 90 mmHg BP Location : Left upper extremity Blood Pressure Cuff Size : Regular Height : 173 cm(Converted to: 5 ft 8 inch(es), 68 inch(es)) SHELLIE IRWIN [facility] - 10/07/2016 10:27 CDT General Info Information Given By : Patient Preferred Communication Mode : Verbal Languages : Singaporean Is Patient Female and 13-50 no hysterectomy : No SHELLIE IRWIN [facility] - 10/07/2016 10:27 CDT Subjective Pain Symptoms : No SHELLIE IRWIN [facility] - 10/07/2016 10:27 CDT Dependent Habits Exposure to Tobacco Smoke : Other: patient had quit but is now smoking some now and then Smoking Status : Current every day smoker Tobacco 2A : Yes Tobacco Use/Currently Using : Yes Tobacco Use/Last 30 Days : Yes Tobacco Use/Last 12 months : Yes Type : Cigarettes: Less than 20 per day Tobacco Use/Advised to Quit : Yes Alcohol Use : No SHELLIE IRWIN [facility] - 10/07/2016 10:27 CDT Caffeine Use Grid Caffeine Use : Current Type : Coffee, Tea Frequency : Daily Amount : 2 cup coffee/2 tea daily DCSHELLIE Declan [facility] - 10/07/2016 10:27 CDT Recreational Drug Use Grid Drug Use : None SHELLIE IRWIN [facility] - 10/07/2016 10:27 CDT [facility] Document Id: [id number]!37 documented in this encounter Plan of Treatment Upcoming Encounters Date Type Specialty Care Team Description 04/12/2022 Office Visit Cardiovascular Disease Simone Gooden AP RN, C.N.P. [address] [phone] (Wo rk) documented as of this encounter Procedures Procedure Name Priority Date/Time Associated Comments Diagnosis UROVYSION (R) FOR Routine 10/07/2016 10:40 Result s for this BLADDER CANCER AM CDT procedure are in the results section. ZZPATHOLOGY NON-HEATING PLANT SUPERINTENDENT Routine 10/07/2016 9:27 AM Re sults for this CYTOLOGY CDT procedure are i n the results section. documented in this encounter Results UroVysion for Detection of Bladder Cancer, Urine (10/07/2016 10:40 AM CDT) [facility] gist Method Time Signature HXFUROC Result Negative POWERCHART Sum-[place] HXFUROC See Comment POWERCHART Result-[place] Comment: RESULT: No evidence of urotheli al carcinoma. Interpretation See Comment POWERCHART Comment: This test result does not rule out the p ossibility that the patient may have a low-grade (i.e. grade 1 or 2) non-invasive papillary urothelial carcin joseph. Some patients with low grade non-invasive papillary ur othelial carcinoma do not have abnormalities with this FISH test. ADDITIONAL INFORMATIO N Fluorescence in situ hybridization (FISH ) with centromere probes for chromosomes 3 (D3Z1), 7(D7Z1) , 17(D17Z1), and a locus specific probe for 9p21. This test has been modified from the [place]'s instructions. Its performance characteri stics were determined by [facility] in a manner co nsistent with CLIA requirements. This test has not been anil ared or approved by the U.S. Food and Drug Administration. HX FUROC Reason for Ref See Comment AYAKA RCHART Comment: RESULT: Evaluate for urothelial carcinoma. HXFUROC Spec-[place] Varies POWERCHART HXFUROC Source-[place] Urine, NOS POWERCHAR T HXFUROC Released By-[place] See Comment GERALDINE ERCHART Comment: RESULT: Jillian Lora M.D. Test Performed by: [facility] - [address] [address] Specimen (Source) Anatomical Collection Method Collection Time Re ceived Time Location / / Volume Laterality Urine 10/07/2016 10:40 AM CDT Tamika Camejo M.D. LAB GENETIC TESTING Performing Organization Address City/State/ZIP Code Phon e Number POWERCHART ZZPATHOLOGY NON-HEATING PLANT SUPERINTENDENT CYTOLOGY (10/07/2016 9:27 AM CDT) Specimen (Source) Anatomical Collection Method Collection Time Re ceived Time Location / / Volume Laterality 10/07/2016 9:27 AM CDT Narrative [facility] - 10/08/2016 12:18 PM CDT [facility] [address] [place], [place] ??[id number] Patient Name: SEVEN SALAZAR Patient ID #: [id number] Collected: 10/07/2016 Address: [facility]/State/Zip: [address] [place], [place] ??[address] Received: Reported: 10/08/2016 10/08/2016 Soc. Sec. #: ?/Age/Sex 1 (Age: 66) ??M Physician(s): Declan CAMEJO MD Copy To: ? [facility] ?? [id number] [address] [facility], ??[place] ??[address] CYTOPATHOLOGY NON-HEATING PLANT SUPERINTENDENT REPORT FINAL CYTOLOGIC DIAGNOSIS Urine-VOIDED: NEGATIVE FOR HIGH-GRADE UROTHELIAL CARCINOMA SATISFACTORY SPECIMEN FOR EVALUATION. Electronically Signed By [facility]/10/08/2016 YUNI SARMIENTO M.D. AM [facility](ASCP) SPECIMEN(S) RECEIVED: Urine-VOIDED CLINICAL HISTORY: HISTORY OF BLADDER CANCER GROSS DESCRIPTION: 2 CYTOSPINS PREPARED FROM 75 ML ALCOHOL- FIXED, CLEAR YELLOW FLUID. Tamika Camejo M.D. LAB PATHOLOGY/CYTOLOGY ORDER IRVIN Performing Organization Address City/[facility]/ZIP Code Phon e Number [facility] documented in this encounter Visit Diagnoses Not on filedocumented in this encounter
--- OUTSIDE RECORDS SUMMARY | 2022-03-29 07:52 | XMS_ITS | Encounter Summary ---
:1950 Author Organization [facility] Address [address] [place] [address] Care Team Providers Name Role Phone Leta Sanchez M.D. Primary Care Provider Encounter Details Date Type Department Care Team Description 02/20/2017 Hospital Encounter HX [facility] Tamika Camejo M.D. [address] [place] [address] (Wo rk) Social History Tobacco [...] How often do you attend caodaism or moravian services? 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 - 02/20/2017 10:35 AM CDT CYSTO CHIEF COMPLAINT / REASON [...] a wide-bore non- obstructing bulbous urethral stricture. INSTRUMENT Flexible cystoscope. ANESTHESIA 2% aqueous lidocaine [...] and cytology, if negative repeat cystoscopy in 4 months. Electronically Signed By: TAMIKA CAMEJO MD On: 02/20/2017 10:37 AM Source: [facility] POWERRadarChile Document Id: [id number] documented in this encounter Miscellaneous Notes Miscellaneous - Tamika Camejo M.D. - 03/03/2017 11:11 AM CDT Results Notification Document Contains Addenda Addendum by NEELIMA RDZ CNA on March 03, 2017 12:14:17 CDT results sent in mail Addendum by SHELLIE IRWIN LPN on March 03, 2017 12:01:16 CDT Left message for patient to return call to clinic. From: TAMIKA CAMEJO MD To: Urology Nurse; Sent: 03/03/2017 11:11:15 CDT ! Show up: 03/03/2017 11:11:15 CDT Subject: Results Notification Actions: Notify patient of results Reminder Comments: Urovysion??? fluorescence in situ hybridization (FISH or FUROC) is negative Results: Date Result Name Value 02/20/2017 10:10 FUROC Result Sum-Mas Negative 02/20/2017 10:10 FUROC Result-Mas See Comment 02/20/2017 10:10 FUROC Interp-Mas See Comment 02/20/2017 10:10 FUROC Reason for Ref-Mas See Comment 02/20/2017 10:10 FUROC Spec-Mas Varies 02/20/2017 10:10 FUROC Source-Mas Urine, NOS 02/20/2017 10:10 FUROC Released By-[place] See Comment Source: [facility] 71lbs Document Id: [id number] Jodicelljen - Tamika Camejo M.D. - 02/24/2017 2:02 PM CDT Results Notification Document Contains Addenda Addendum by NEELIMA RDZ CNA on March 03, 2017 12:13:54 CDT results sent in mail Addendum by SHELLIE IRWIN LPN on February 24, 2017 16:00:43 CDT Fish pending. From: TAMIKA CAMEJO MD To: Urology Nurse; Sent: 02/24/2017 14:02:25 CDT ! Show up: 02/24/2017 14:02:25 CDT Subject: Results Notification Actions: Notify patient of results Reminder Comments: cyto is neg Results: Date Result Type Result Name 02/24/2017 12:20 Document - DOC Non-ANESTHESIOLOGY FELLOW Cytology [facility] Document Id: [id number] Miscellaneous - Shellie Irwin, L.P.N. - 02/20/2017 9:59 AM CDT Adult Campground Cleaning Attendant Intake/History Adult Campground Cleaning Attendant Intake/History Entered On: 02/20/2017 10:05 CDT Performed On: 02/20/2017 9:59 CDT by SHELLIE IRWIN LPN Intake Chief Complaint : cystoscopy-history of bladder cancer patient states no urgency or blood in urine Temperature Core : 36.7 DegC(Converted to: 98.1 DegF) Peripheral Pulse Rate : 88 /min Systolic Blood Pressure : 100 mmHg Diastolic Blood Pressure : 62 mmHg NIBP Mean : 75 mmHg BP Location : Left upper extremity Blood Pressure Cuff Size : Regular Height : 173 cm(Converted to: 5 ft 8 inch(es), 68 inch(es)) SHELLIE IRWIN [facility] - 02/20/2017 9:59 CDT General Info Information Given By : Patient Preferred Communication Mode : Verbal Languages : Thai Is Patient Female and 13-50 no hysterectomy : No SHELLIE IRWIN LPN - 02/20/2017 9:59 CDT Subjective Pain Symptoms : No SHELLIE IRWIN LPN - 02/20/2017 9:59 CDT Dependent Habits Exposure to Tobacco Smoke : Other: patient had quit but is now smoking some now and then Smoking Status : Current every day smoker Tobacco 2A : Yes Tobacco Use/Currently Using : Yes Tobacco Use/Last 30 Days : Yes Tobacco Use/Last 12 months : Yes Type : Cigarettes: Less than 20 per day Tobacco Use/Advised to Quit : Yes SHELLIE IRWIN LPN - 02/20/2017 9:59 CDT Caffeine Use Grid Caffeine Use : Current Type : Coffee, Tea Frequency : Daily Amount : 2 cup coffee/2 tea daily SHELLIE IRWIN MANAGER NIGHT - 02/20/2017 9:59 CDT Recreational Drug Use Grid Drug Use : None SHELLIE IRWIN MANAGER NIGHT - 02/20/2017 9:59 CDT Source: [facility] POWERCHART Document Id: [id number]!36 documented in this encounter Plan of Treatment Upcoming Encounters Date Type Specialty Care Team Description 04/12/2022 Office Visit Cardiovascular Disease Simone Gooden AP RN, C.N.P. [address] [phone] (Wo rk) documented as of this encounter Procedures Procedure Name Priority Date/Time Associated Comments Diagnosis UROVYSION (R) FOR Routine 02/20/2017 10:10 Result s for this BLADDER CANCER AM CDT procedure are in the results section. ZZPATHOLOGY NON-ANESTHESIOLOGY FELLOW Routine 02/20/2017 9:57 AM Re sults for this CYTOLOGY CDT procedure are i n the results section. documented in this encounter Results UroVysion for Detection of Bladder Cancer, Urine (02/20/2017 10:10 AM CDT) [facility] Method Time Signature HXFUROC Result Negative POWERCHART Sum-[place] HXFUROC See Comment POWERCHART Result-[place] Comment: RESULT: No evidence of urotheli al [...] from the man ufacturer's instructions. Its performance characteri stics were determined by [facility] in a manner co nsistent with CLIA requirements. This test has not been anil ared or approved by the U.S. Food and Drug Administration. HX FUROC Reason for Ref See Comment AYAKA RCHART Comment: RESULT: Evaluate for urothelial carcinoma. HXFUROC Spec-[place] Varies POWERCHART HXFUROC Source-[place] Urine, NOS POWERCHAR T HXFUROC Released By-[place] See Comment POW ERCHART Comment: RESULT: Alexis Francis M.D. [phone] Test Performed by: [facility] - [address] [address] Specimen (Source) Anatomical Collection Method Collection Time Re ceived Time Location / / Volume Laterality Urine 02/20/2017 10:10 AM CDT Tamika Camejo M.D. LAB GENETIC TESTING Performing Organization Address City/State/ZIP Code Phon e Number POWERCHART POWERCHART NA ZZPATHOLOGY NON-ANESTHESIOLOGY FELLOW CYTOLOGY (02/20/2017 9:57 AM CDT) Specimen (Source) Anatomical Collection Method Collection Time Re ceived Time Location / / Volume Laterality 02/20/2017 9:57 AM CDT Narrative [facility] - 02/24/2017 12:20 PM CDT [facility] [address] [place] [address] ??[phone] Patient Name: SEVEN SALAZAR Patient ID #: [id number] Collected: 02/20/2017 Address: City/State/Zip: [employer] [place] [address] ??[id number] Received: Reported: 02/24/2017 02/24/2017 Soc. Sec. #: ?/Age/Sex 1950 (Age: 67) ??M Physician(s): Declan CAMEJO MD Copy To: ? [facility] ?? [id number] [address] [facility] ??[place] ??[id number] CYTOPATHOLOGY NON-ANESTHESIOLOGY FELLOW REPORT FINAL CYTOLOGIC DIAGNOSIS Urine-VOIDED: NEGATIVE FOR HIGH-GRADE UROTHELIAL CARCINOMA SATISFACTORY SPECIMEN FOR EVALUATION. Electronically Signed By eae/02/24/2017 TREVA JOYA M.D. AJ Wawrzynaik ODETTE([facility]) SPECIMEN(S) RECEIVED: Urine-VOIDED CLINICAL HISTORY: HISTORY OF BLADDER CANCER GROSS DESCRIPTION: 2 CYTOSPINS PREPARED FROM 25 ML YELLOW A LCOHOL FIXED FLUID. Tamika Camejo M.D. LAB PATHOLOGY/CYTOLOGY ORDER IRVIN Performing Organization Address City/[facility]/ZIP Code Phon e Number [facility] documented in this encounter Visit Diagnoses Not on filedocumented in this encounter Care Teams Servicenow Administrator Relationship Specialty Start Date End Date Leta Sanchez M.D. PCP - General 10/17/16 10/18/19 documented as of this encounter
--- OUTSIDE RECORDS SUMMARY | 2022-03-29 07:52 | XMS_ITS | Encounter Summary ---
:1950 Author Organization [facility] Address [address] [place] [address] Care Team Providers Name Role Phone Leta Sacnhez M.D. Primary Care Provider Reason for Visit Reason Comments Follow-up 1 week follow up Abdominal Pain Outpatient (Routine) - Closed Specialty Diagnoses / Procedures Referred By Contact Refer red To Contact [facility] Leta Sanchez M.D. Medicine [address], [place] [address] [place] [address] Referral ID Status Reason Start Date Expiration Date Visits Requ ested Visits Authorized [id number] Closed 03/04/2017 08/31/2017 1 1 Encounter Details Date Type Department Care Team Description 03/14/2017 Office Visit Department of Leta Sanchez M.D . Diverticulitis Colon; [facility] [address], [place]; Medicine in [place] [address] Pain Epigastric; [place], [place] Polymyalgia Rheumatica (HCC) ; [address] [address] Elevated Sedimentation Rate; JAYNA THIBODEAUX Abnormal C Reactive Protein; [id number] Leukocytosis [phone] Social History Tobacco Use Types Packs/Day Years [...] How often do you attend amish or mandaeism services? 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 - 03/14/2017 3:45 PM CST CHIEF COMPLAINT/REASON FOR VISIT Follow-up abdominal pain with diarrhea. HISTORY OF PRESENT ILLNESS Seven Salazar is a 67 y.o. male who presents for follow-up from 03/06/2017. He was treated with Levaquin 500 mg by mouth daily for 10 days on 03/04/2017 for possible diverticulitis of the colon. When I saw him on 03/06/2017, he does not have abdominal pain no diarrhea. His symptoms improved. Because of that he was not able to collect stool specimen. Then he was fine until yesterday. He started having diarrhea since yesterday. He has had 4 bowel movements yesterday. There was no blood in the stool. He noticed mucus in the stool. He also notice abdominal pain and nausea. He does not have fever or, chills or vomiting. He has been eating. There is no dizziness, lightheadedness, dry mouth, or decreased urination. He would like to go back to work on Friday. He would like to get return to work note. I review blood test from 03/04/2017. He was noted to have mild leukocytosis. WBC was 16.4. Sedimentation rate was slightly high at 33. Basic metabolic profile was unremarkable. Hemoglobin A1c was 6. TSH was 0.91. He has history of polymyalgia rheumatica and he takes Prednisone 5 mg by mouth daily in the morning. He wants to know whether he can cut back Prednisone dose. We discussed management of polymyalgia rheumatica. If his inflammatory markers are normal and he is asymptomatic, we can gradually decrease Prednisone dose 1 mg every month. His recent high sedimentation rate, which may be related todiarrhea with abdominal pain most likely due to diverticulitis. Because of persistent abdominal painwith diarrhea and long-term Prednisone therapy, it was decided to proceed with CT scan of abdomen and pelvis. We will contact [facility] Radiology Department to schedule CT scan of abdomen and pelvis to make sure he does not have intra abdominal pathology and infection. I advised him to collect stool if he has diarrhea again. He should go to hospital emergency department if he has significant abdominal pain associated with nausea, vomiting, diarrhea, fever and chills or decreased urine output. All of his questions were answered. He does not have additional question, concern, or complaint. MEDICATIONS Medication Sig Dispense Refill ??? albuterol sulfate 90 mcg/actuation aerosol powdr breath activated Inhale 2 puffs every 4 (four) hours as needed. ??? hydroCHLOROthiazide (for_HYDRODIURIL) 25 mg tablet Take 1 tablet by mouth every morning. ??? lisinopril (for_PRINIVIL,ZESTRIL) 40 mg tablet Take 1 tablet by mouth every morning. ??? melatonin 10 mg capsule Take 1 capsule by mouth at bedtime. ??? nortriptyline (for_PAMELOR) 25 mg capsule Take 2 capsules by mouth at bedtime. ??? predniSONE (for_DELTASONE) 5 mg tablet Take 1 tablet by mouth every morning. ALLERGIES Allergen Reactions ??? Bupropion Hcl Other (see comments) Cerner listed no reactions. Suicidal thoughts. ??? Citalopram Diarrhea ??? Influenza Virus Vaccine Bivalent Other (see comments) Sickness, Cerner listed no reactions. ??? Pravastatin Myalgia and Other (see comments) SYSTEMS REVIEW Please see history of present illness for pertinent positives, otherwise rest of review of systems negative. PAST MEDICAL / SURGICAL HISTORY Reviewed and updated as per the EHR on 03/14/2017. PREVENTIVE SERVICES Reviewed and updated as per the EHR on 03/14/2017. SOCIAL HISTORY Social History ??? Marital status: [...] Father ??? Lung cancer Sister VITAL SIGNS BP 105/58 Pulse 80 Temp 36.7 ??C Resp 16 Wt 102.3 kg BMI 34.20 kg/m?? PHYSICAL EXAMINATION GENERAL: Patient is obese. Sitting. No distress. Able to talk without interruption. [...] No thyromegaly. No thyroid thrill or bruit. HEART: No carotid bruit. No JVD. Regular rhythm. There is no S3, gallop, murmur, or thrill. LUNGS: Normal respiratory effort. Clear to auscultation. ABDOMEN: Obese. Moves with respiration. Bowel sounds present. Soft. No rebound tenderness, guarding,or rigidity. No organomegaly. SPINE: No scoliosis or kyphosis. No spinous tenderness or mass. JOINTS: No joint swelling or deformity. EXTREMITIES: No clubbing, cyanosis, edema, infection, or calf tenderness. MENTAL: Alert and oriented x 3. Normal mood and affect. NEURO: Intact cranial nerves. Intact sensory and motor. Grossly nonfocal exam. LAB RESULTS Component Value Date NA 138 03/04/2017 K 4.6 03/04/2017 CL 95 (L) 03/04/2017 CREATININE 1.12 03/04/2017 BUN 26 (H) 03/04/2017 GLUCOSE 109 03/04/2017 CALCIUM 10.1 03/04/2017 Component Value Date HGBA1C 6.0 (H) 03/04/2017 Component Value Date TSH 0.91 03/04/2017 IMPRESSION/ REPORT/ PLAN #1 Diverticulitis Of Colon #2 Diarrhea #3 Pain Epigastric He is still having diarrhea with abdominal pain. He does not have acute abdomen clinically per todayexam. There is no evidence of bowel obstruction. Because of long-term Prednisone therapy, which can mask the intra-abdominal infection. He does not have symptoms and signs suggestive of dehydration. Wediscussed possible etiologies, further evaluation and management. After discussion, it was decided to proceed with CT scan of abdomen and pelvis. We will contact [facility] Radiology Department to schedule as soon as possible. He should go to hospital emergency department if he has persistent severe abdominal pain associated with nausea, vomiting, diarrhea, fever, chills and decreased urine output. He was advised to collect stool specimen at home if he has recurrent diarrhea. Patient agree with plan. #4 Polymyalgia Rheumatica (HCC) #5 Elevated Sedimentation Rate #6 Abnormal C Reactive Protein At this time his main problem is abdominal pain with diarrhea. He does not complain about polymyalgia rheumatica. His sedimentation rate was high. It could be related to infection. We need to repeat inflammatory markers. If he does not have polymyalgia rheumatica symptoms along with normal inflammatory markers, we may cut back prednisone dose 1 mg every month. #7 Leukocytosis It could be related to infection and Prednisone therapy. We need to monitor. #8 Follow-up appointment I advised him to come back next week after completion of CT scan of abdomen and pelvis. #9 Today's study: Complete blood count and C reactive protein. LIFT TRUCK OPERATOR Leta Sanchez M.D. - 03/14/2017 3:45 PM CST Please call the patient regarding his abnormal result. He has declined kidney function. He needs to stop Hydrochlorothiazide and drinks Pedialyte or Gatorade for fluid replacement. Please call [facility] about recent EGFR and creatinine level and inform them not to use IV contrast dye for CT scan of abdomen and pelvis. LIFT TRUCK OPERATOR documented in this encounter Plan of Treatment Upcoming Encounters Date Type Specialty Care Team Description 04/12/2022 Office Visit Cardiovascular Disease Simone Gooden AP RN, C.N.P. [address] [place], [place] [phone] (Wo rk) documented as of this encounter Procedures Procedure Name Priority Date/Time Associated Diagnosis Comme nts CBC WITHOUT Routine 03/14/2017 4:40 PM Pain Epigastr ic Results for this DIFFERENTIAL, B FORKLIFT TRUCK OPERATOR Diarrhea procedure are in Polymyalgia Rheumatica the r esults (HCC) section. Leukocytosis C-REACTIVE PROTEIN Routine 03/14/2017 4:40 PM Polymyalgia Rheu matica Results for this (CRP), S/P FORKLIFT TRUCK OPERATOR (HCC) procedure are in Elevated Sedimentation the r esults Rate section. Abnormal C Reactive Protein BASIC METABOLIC Routine 03/14/2017 4:40 PM Pain Epigastr ic Results for this PANEL, S/P FORKLIFT TRUCK OPERATOR Diarrhea procedure are in Polymyalgia Rheumatica the r esults (HCC) section. documented in this encounter Results (ABNORMAL) CRP (C-Reactive Protein) (03/14/2017 4:40 PM FORKLIFT TRUCK OPERATOR) athologist Signature C-Reactive 66.6 (H) <=8.0 mg/L 03/14/2017 [facility] Protein (CRP), 10:13 PM [facility] Specimen Anatomical Collection Method Collection Time Receive d Time (Source) Location / / Volume Laterality Blood (Blood, 03/14/2017 4:40 PM 03/14/20 17 9:52 Venous) FORKLIFT TRUCK OPERATOR PM FORKLIFT TRUCK OPERATOR Leta Sanchez M.D. LAB BLOOD ADD-ON Performing Organization Address City/State/ZIP Code Phon e Number [facility]- [address] [place] [address] [facility] (ABNORMAL) BMP (Basic Metabolic Panel) (03/14/2017 4:40 PM FORKLIFT TRUCK OPERATOR) Analysis Performed At Patho logist Time Signature Potassium, S 4.6 3.6 - 5.2 03/17/2017 [facility] mmol/L 11:30 AM [facility] Sodium, S 136 135 - 145 03/17/2017 [facility] mmol/L 11:30 AM FORKLIFT TRUCK OPERATOR [facility] [place] [facility] Chloride, S 94 (L) 98 - 107 03/17/2017 [facility] mmol/L 11:30 AM [facility] Bicarbonate, S 28 22 - 29 03/17/2017 [facility] mmol/L 11:30 AM [facility] Anion Gap 14 7 - 15 03/17/2017 [facility] 11:30 AM [facility] BUN (Blood Urea 49 (H) 8 - 24 03/17/2017 [facility] Nitrogen), S mg/dL 11:30 AM [facility] Creatinine 1.74 (H) 0.74 - 03/17/2017 [facility] 1.35 mg/dL 11:30 AM [facility] LAB eGFR 39 (L) >=60 03/17/2017 [facility] Non-Black/Afric mL/min/BSA 11:30 AM [facility] Comment: ----ADDITIONAL INFORMATION---- Estimated GFR calculated using the 2009 CKD_EPI creatinine equation. eGFR-Black/ 46 (L) >=60 mL/min/BSA 03/17/2017 11:3 0 [facility] Comment: ----ADDITIONAL INFORMATION---- Estimated GFR calculated using the 2009 CKD_EPI creatinine equation. Calcium, Total, S 10.2 (H) 8.9 - 10.1 mg/dL 03/17/2017 1 1:30 AM [email or web address] Glucose, S 85 70 - 140 mg/dL 03/17/2017 11:30 AM [email or web address] Specimen Anatomical Collection Method Collection Time Receive d Time (Source) Location / / Volume Laterality Blood (Blood, 03/14/2017 4:40 PM 03/17/20 17 Venous) FORKLIFT TRUCK OPERATOR 11:28 AM [facility] Leta Sanchez M.D. LAB BLOOD ADD-ON Performing Organization Address City/State/ZIP Code Phon e Number [email or web address] [address] [place] [address] LAB (ABNORMAL) CBC without Differential (03/14/2017 4:40 PM FORKLIFT TRUCK OPERATOR) Patholo gist Method Time Signature Hemoglobin 13.9 13.2 - 03/14/2017 [facility] 16.6 g/dL 4:50 PM [facility] Hematocrit 40.9 38.3 - 03/14/2017 [facility] 48.6 % 4:50 PM [facility] Erythrocytes 4.77 4.35 - 03/14/2017 [facility] 5.65 4:50 PM [facility] x10(12)/L [facility] LAB MCV 85.7 78.2 - 03/14/2017 [facility] 97.9 fL 4:50 PM [facility] RBC Distrib Width 14.4 11.8 - 03/14/2017 [facility] 14.5 % 4:50 PM [facility] Platelet Count 246 135 - 317 03/14/2017 [facility] x10(9)/L 4:50 PM [facility] LAB Leukocytes 11.4 (H) 3.4 - 9.6 03/14/2017 [facility] x10(9)/L 4:50 PM [facility] Specimen Anatomical Collection Method Collection Time Receive d Time (Source) Location / / Volume Laterality Blood (Blood, 03/14/2017 4:40 PM 03/14/20 17 4:41 Venous) FORKLIFT TRUCK OPERATOR PM FORKLIFT TRUCK OPERATOR Leta Sanchez M.D. LAB BLOOD ADD-ON Performing Organization Address City/State/ZIP Code Phon e Number [facility]- [address] [place] [address] [facility]- [address] [place] [address] [facility] documented in this encounter Visit Diagnoses Diagnosis Diverticulitis Colon Diarrhea Pain Epigastric Polymyalgia Rheumatica (HCC) Elevated Sedimentation Rate Abnormal C Reactive Protein Leukocytosis documented in this encounter Additional Health Concerns Assessment Noted Time PHQ-9 Depression Total Score: 1 03/04/2017 11:21 AM CD T documented as of this encounter Care Teams Stereo Map Plotter Operator Relationship Specialty Start Date End Date Leta Sanchez M.D. PCP - General 10/17/16 10/18/19 documented as of this encounter
--- OUTSIDE RECORDS SUMMARY | 2022-03-29 07:52 | XMS_ITS | Encounter Summary ---
:1950 Author Organization [facility] Address [address] [place] [address] Care Team Providers Name Role Phone Leta Sanchez M.D. Primary Care Provider Reason for Referral Outpatient (Routine) - Closed Specialty Diagnoses / Procedures Referred By Contact Refer red To Contact [facility] Internal Leta Sanchez M.D. Medicine [facility] [place] [id number] Referral ID Status Reason Start Date Expiration Date Visits Requ ested Visits Authorized [id number] Closed 03/06/2017 09/02/2017 1 1 utpatient (Routine) - Closed Specialty Diagnoses / Procedures Referred By Contact Refer kendall To Contact [facility] Leta Sanchez M.D. Medicine [address] [place], [place] [address] [address] Referral ID Status Reason Start Date Expiration Date Visits Requ ested Visits Authorized [id number] Closed 03/04/2017 08/31/2017 1 1 Encounter Details Date Type Department Care Team Description 03/04/2017 Orders Only Department of [facility] Ambrosio Sanchez M.D. Hyperlipidemia; Internal Medicine in [address] [place], [place] [address] [place] [address] [place] [address] [phone] Social History Tobacco Use Types Packs/Day Years [...] How often do you attend adventism or mormon services? 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 [address] [place] [phone] (Wo rk) Scheduled Referrals Name Type Priority Associated Diagnoses Order [facility] Internal Outpatient Referral Routine Ex pected: Medicine office 03/06/2017 visit (clinic) (Approximate) , Expires: 03/10/2022 [facility] Internal Outpatient Referral Routine Ex pected: Medicine office 03/13/2017 visit (clinic) (Approximate) , Expires: 03/17/2022 documented as of this encounter Visit Diagnoses Diagnosis Hyperlipidemia Diarrhea documented in this encounter Additional Health Concerns Assessment Noted Time PHQ-9 Depression Total Score: 1 03/04/2017 11:21 AM CD T documented as of this encounter Care Teams Dress Finisher Relationship Specialty Start Date End Date Leta Sanchez M.D. PCP - General 10/17/16 10/18/19 documented as of this encounter
--- OUTSIDE RECORDS SUMMARY | 2022-03-29 07:52 | XMS_ITS | Encounter Summary ---
:1950 Author Organization [facility] Address [address] [place] [address] Care Team Providers Name Role Phone Leta Sanchez M.D. Primary Care Provider Reason for Visit Reason Comments Communication Encounter Details Date Type Department Care Team Description 03/21/2017 Clinical Communication Department of Gareth Sanchez M.D. Communication [facility] Internal [address] 300 [facility] [address] [place], [place] [phone] [address] (Fax) [phone] Social History Tobacco Use Types Packs/Day Years [...] How often do you attend uatsdin or gnosticism services? 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 - 03/24/2017 8:43 AM LEAD BLENDER Order has been cancelled. BLENDER Telephone Encounter - Leta Sanchez M.D. - 03/21/2017 6:56 PM CST Yes. Please cancel. Electronically signed by: Leta Sanchez M.D. 03/21/17 6:56 PM BLENDER Telephone Encounter - Dilcia Schulz L.P.N. - 03/21/2017 4:44 PM LEAD BLENDER Do you want to cancel the order for the Sestamibi scan? BLENDER Telephone Encounter - Dilcia Schulz L.P.N. - 03/21/2017 2:27 PM LEAD BLENDER Patient was notified BLENDER Telephone Encounter - Leta Sanchez M.D. - 03/21/2017 2:13 PM CST Please call him to go to [facility] ED right away. His troponin I level came back high, 4.382. His pain is due to heart attack. He needs to be transferred to [facility]. EKG showed no acute change. Electronically signed by: Leta Sanchez M.D. 03/21/17 2:15 PM BLENDER Telephone Encounter - Dilcia Schulz L.P.N. - 03/21/2017 1:44 PM LEAD BLENDER Order faxed BLENDER Telephone Encounter - Leta Sanchez M.D. - 03/21/2017 12:24 PM CST Please call [facility] to schedule exercise test with Sestamibi scan, BRAD. Dx: Coronary artery calcification per CT scan of abdomen and epigastric pain with exertion. BLENDER documented in this encounter Plan of Treatment Upcoming Encounters Date Type Specialty Care Team Description 04/12/2022 Office Visit Cardiovascular Disease Simone Gooden AP RN, C.N.P. [address] [phone] (Wo rk) documented as of this encounter Visit Diagnoses Not on filedocumented in this encounter Additional Health Concerns Assessment Noted Time PHQ-9 Depression Total Score: 3 03/21/2017 11:44 AM CS T documented as of this encounter Care Teams Production Support Specialist Relationship Specialty Start Date End Date Leta Sanchez M.D. PCP - General 10/17/16 10/18/19 documented as of this encounter
--- OUTSIDE RECORDS SUMMARY | 2022-03-29 07:52 | XMS_ITS | Encounter Summary ---
:1950 Author Organization [facility] Address [address] [place] [address] Care Team Providers Name Role Phone Leta Sanchez M.D. Primary Care Provider Encounter Details Date Type Department Care Team Description 02/20/2017 Hospital Encounter HX NO MAPPING Darlene Camejo M.D. [address] [place], [place] [phone] (Wo rk) Social History [...] How often do you attend yazidi or mosque services? 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 However, the narrative phrase printed from the coding software may appear abbreviated, or result in slightly different terminology. Coded By: LEONEL LORENZANA Date Saved: 03/03/2017 09:12 am Source: [facility] POWERCHART Document Id: [id number] documented in this encounter Plan of Treatment Upcoming Encounters Date Type Specialty Care Team Description 04/12/2022 Office Visit Cardiovascular Disease Simone Gooden AP RN, C.N.P. [address] [phone] (Wo rk) documented as of this encounter Visit Diagnoses Not on filedocumented in this encounter Care Teams Honey Blender Relationship Specialty Start Date End Date Leta Sanchez M.D. PCP - General 10/17/16 10/18/19 documented as of this encounter
--- OUTSIDE RECORDS SUMMARY | 2022-03-29 07:52 | XMS_ITS | Encounter Summary ---
:1950 Author Organization [facility] Address [address] [place] [address] Care Team Providers Name Role Phone Leta Sanchez M.D. Primary Care Provider Reason for Visit Reason Onset Date Comments Post Hospital Follow-up 03/24/2017 Encounter Details Date Type Department Care Team Description 03/24/2017 Clinical Communication Department of [facility] Internal Torsten Padilla M.D. Follow-up Medicine in [address] [place] [address] [facility] [phone] [place], [place] (Work) [phone] Social History Tobacco Use Types Packs/Day [...] How often do you attend muslim or zoroastrian services? 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 General Health Seven Salazar notes today he is feeling better than when he left the hospital. Patient confirms that the condition for which he was admitted has improved. Home management assessment post discharge: Patient states he is doing okay, but has a few questions and concerns. Patient had an episode of indigestion and heartburn Friday(03/26) that continued until morning and was resolved with 2 Nitro. Actions taken: appointment ordered/scheduled as per TCM guidelines Infection related to a resistant organism: no [...] any of the following: Controlled substances: no Antibiotics: no Diabetic medications: no Anticoagulants: yes Type: Plavix Taking as instructed: yes Signs/symptoms of bleeding or clotting: no Home INR monitoring: n/a Medication management provider: Primary Care Provider - Dr. Sanchez Home Care/Equipment Home care ordered: no Activities of Daily Living Has activities of daily living changed since hospitalization: no Ambulation Has ambulation changed since hospitalization: no Difficulty ambulating: no Follow-Up Appointment Follow-up appointment scheduled? yes Date of appointment: 03/31/17 @ 10 Does patient plan to go to the appointment?: yes Concerns about getting to the appointment: issues getting to your appointment: none General Care and Feedback Patient expressed some concern related to his brother passing away after having a heart attack and has some fears that this will happen to him also. Patient reassured he is taking the correct steps to having a healthier heart but to discuss his concerns with Dr. Sanchez. Patient otherwise is feeling welland eager to get back to work and back to exercising. Patient advised if he has indigestion, heartburn, chest pain, abdominal pain not to wait as long as he did Friday- before taking a nitroand if not relieved by this to seek further medical attention, patient verbalized agreement. Post-Hospital Assessment: Areas for hospital feedback: Post hospital near miss assessment: none TY PROBATION OFFICER Telephone Encounter - Fransisca Shaver - 03/28/2017 10:14 AM CST Pt returning call please call back TY PROBATION OFFICER Telephone Encounter - Tanika Stewart - 03/24/2017 11:54 AM CST Seven has a post hospital follow-up scheduled: Date/Time: 03/31/2017 9:45 check-in / 10:00 provider Provider: Dr Bonilla Stout [facility]: [facility] Cardiology in Post Discharge date: 03/25/17 Reason: NE TY PROBATION OFFICER documented in this encounter Plan of Treatment Upcoming Encounters Date Type Specialty Care Team Description 04/12/2022 Office Visit Cardiovascular Disease Simone Gooden AP RN, C.N.P. [address] [phone] (Wo rk) documented as of this encounter Visit Diagnoses Not on filedocumented in this encounter Additional Health Concerns Assessment Noted Time PHQ-9 Depression Total Score: 3 03/21/2017 11:44 AM CS T documented as of this encounter Care Teams Tile Molder Hand Relationship Specialty Start Date End Date Leta Sanchez M.D. PCP - General 10/17/16 10/18/19 documented as of this encounter
--- OUTSIDE RECORDS SUMMARY | 2022-03-29 07:52 | XMS_ITS | Encounter Summary ---
:1950 Author Organization [facility] Address [address] [place] [address] Care Team Providers Name Role Phone Leta Sanchez M.D. Primary Care Provider Encounter Details Date Type Department Care Team Description 03/14/2017 Clinical Communication Department of Gareth Sanchez M.D. Formerly [facility] Internal [facility]8 [facility], Medicine in [address] [address] [place] [address] Social History Tobacco Use Types [...] week 04/16/2019 How often do you attend scientology or rastafarian services? 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 - 03/14/2017 4:30 PM CREDENTIALING ASSISTANT Order faxed to [facility] ENTIALING ASSISTANT documented in this encounter Plan of Treatment Upcoming Encounters Date Type Specialty Care Team Description 04/12/2022 Office Visit Cardiovascular Disease Simone Gooden AP RN, C.N.P. [address] [phone] (Wo rk) documented as of this encounter Visit Diagnoses Not on filedocumented in this encounter Additional Health Concerns Assessment Noted Time PHQ-9 Depression Total Score: 1 03/04/2017 11:21 AM CD T documented as of this encounter Care Teams Clip Coater Relationship Specialty Start Date End Date Leta Sanchez M.D. PCP - General 10/17/16 10/18/19 documented as of this encounter
--- OUTSIDE RECORDS SUMMARY | 2022-03-29 07:52 | XMS_ITS | Encounter Summary ---
:1950 Author Organization [facility] Address [address] [place] [address] Care Team Providers Name Role Phone Leta Sanchez M.D. Primary Care Provider Reason for Visit Reason Comments Communication Encounter Details Date Type Department Care Team Description 03/21/2017 Clinical Communication Department of Lucretia Zuleta [facility] Laboratory Medicine R, IT ENGINEER(ASCP) in [facility] [address] [place], [place] [address] [facility] [place] [address] [place], [place] [phone] [address] (Work) [phone] Social History Tobacco Use Types Packs/Day Years [...] How often do you attend amish or samaritan services? 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 [address] [address] [phone] (Wo rk) documented as of this encounter Visit Diagnoses Not on filedocumented in this encounter Additional Health Concerns Assessment Noted Time PHQ-9 Depression Total Score: 3 03/21/2017 11:44 AM CS T documented as of this encounter Care Teams Help Desk Agent Relationship Specialty Start Date End Date Leta Sanchez M.D. PCP - General 10/17/16 10/18/19 documented as of this encounter
--- OUTSIDE RECORDS SUMMARY | 2022-03-29 07:52 | XMS_ITS | Encounter Summary ---
:1950 Author Organization [facility] Address [address] [place] [address] Care Team Providers Name Role Phone Leta Sanchez M.D. Primary Care Provider Encounter Details Date Type Department Care Team Description 03/21/2017 - 03/25/2017 Hospital Encounter HX [facility]ST [place] [facility] Social History Tobacco Use Types Packs/Day Years [...] How often do you attend episcopalian or gnosticism services? Never 04/16/2019 Do you [...] at Date Recorded Male 06/28/2019 8:47 AM TERRITORY BUSINESS MANAGER documented as of this encounter Last Filed Vital Signs Vital Sign Reading Time Taken Comments Blood Pressure 98/85 03/25/2017 11:30 NIBP - Value fr om AM TERRITORY BUSINESS MANAGER [employer]. Pulse 71 03/25/2017 11:30 Value from Rosaline [facility]plus. AM TERRITORY BUSINESS MANAGER Temperature - - Respiratory Rate 18 03/25/2017 5:15 AM Value from Andrez shaw. TERRITORY BUSINESS MANAGER Oxygen Saturation - - Inhaled Oxygen - - Concentration Weight 105 kg (231 lb 7.7 03/25/2017 7:30 AM Value from [employer]. oz) TERRITORY BUSINESS MANAGER Height 171 cm (5' 7.32) 03/21/2017 7:51 PM TERRITORY BUSINESS MANAGER Body Mass Index 35.91 03/21/2017 7:51 PM TERRITORY BUSINESS MANAGER documented in this encounter Medications at Time of Discharge Medication Sig Dispensed Refills Start Date End Date albuterol sulfate 90 Inhale 2 puffs 0 03/11/2016 04/24/2017 mcg/actuation aerosol powdr every 4 (four) breath activated hours as needed. hydroCHLOROthiazide Take 1 tablet by 0 06/10/2016 [...] 06/10/2016 10/13/2017 mg tablet mouth every morning. psyllium, with aspartame, Take 1 Dose by 90 Dose 11 201601/07/2018 (for_METAMUCIL) 3.4 gram/5.8 mouth 3 (three) gram oral powder times a day. documented as of this encounter Plan of Treatment Upcoming Encounters Date Type Specialty Care Team Description 04/12/2022 Office Visit Cardiovascular Disease Simone Gooden AP RN, C.N.P. [address] [phone] ([facility]) documented as of this encounter Procedures Procedure Name Priority Date/Time Associated Comments Diagnosis POTASSIUM, S/P Routine 03/25/2017 5:16 AM Results for this TERRITORY BUSINESS MANAGER procedure are i n the results section. CREATININE WITH EGFR, Routine 03/25/2017 5:16 AM Results for this S/P TERRITORY BUSINESS MANAGER procedure are i n the results section. ACT, POCT, B Routine 03/24/2017 4:35 PM Results f or this TERRITORY BUSINESS MANAGER procedure are i n the results section. ACT, POCT, B Routine 03/24/2017 3:49 PM Results f or this TERRITORY BUSINESS MANAGER procedure are i n the results section. ACT, POCT, B Routine 03/24/2017 3:18 PM Results f or this TERRITORY BUSINESS MANAGER procedure are i n the results section. CBC WITHOUT Routine 03/24/2017 6:02 AM Results f or this DIFFERENTIAL, B TERRITORY BUSINESS MANAGER procedure ar e in the results section. CREATININE WITH EGFR, Routine 03/24/2017 6:02 AM Results for this S/P TERRITORY BUSINESS MANAGER procedure are i n the results section. ELECTROLYTE (CHEM 4) Routine 03/23/2017 5:28 AM R esults for this PANEL, S/P TERRITORY BUSINESS MANAGER procedure are i n the results section. CBC WITH DIFFERENTIAL, Routine 03/23/2017 5:28 AM Results for this B TERRITORY BUSINESS MANAGER procedure are i n the results section. ACT, POCT, B Routine 03/22/2017 12:29 Results for this PM TERRITORY BUSINESS MANAGER procedure are i n the results section. ACT, POCT, B Routine 03/22/2017 11:48 Results for this AM TERRITORY BUSINESS MANAGER procedure are i n the results section. HEPARIN LEVEL ANTI-XA Routine 03/22/2017 10:23 Re sults for this ASSAY, P AM TERRITORY BUSINESS MANAGER procedure are i n the results section. HEPARIN LEVEL ANTI-XA Routine 03/22/2017 3:09 AM Results for this ASSAY, P TERRITORY BUSINESS MANAGER procedure are i n the results section. CBC WITHOUT Routine 03/22/2017 3:09 AM Results f or this DIFFERENTIAL, B TERRITORY BUSINESS MANAGER procedure ar e in the results section. ECG Routine 03/21/2017 8:56 PM Results f or this TERRITORY BUSINESS MANAGER procedure are i n the results section. ELECTROLYTE (CHEM 4) Routine 03/21/2017 8:55 PM R esults for this PANEL, S/P TERRITORY BUSINESS MANAGER procedure are i n the results section. CARDIAC BIOMARKER Routine 03/21/2017 8:55 PM Resu lts for this PANEL, S TERRITORY BUSINESS MANAGER procedure are i n the results section. ACTIVATED PARTIAL Routine 03/21/2017 8:55 PM Resu lts for this THROMBOPLASTIN TIME TERRITORY BUSINESS MANAGER procedur e are in (APTT), P the results section. PROTHROMBIN TIME (PT), Routine 03/21/2017 8:55 PM Results for this P TERRITORY BUSINESS MANAGER procedure are i n the results section. CBC WITH DIFFERENTIAL, Routine 03/21/2017 8:55 PM Results for this B TERRITORY BUSINESS MANAGER procedure are i n the results section. DX CHEST AP OR PA AND Routine 03/21/2017 8:43 PM Results for this LATERAL 2 VIEWS TERRITORY BUSINESS MANAGER procedure ar e in the results section. documented in this encounter Results Potassium (03/25/2017 5:16 AM TERRITORY BUSINESS MANAGER) P athologist Signature Potassium, S 4.0 3.6 - 5.2 [facility] MMOL/L LABORATORIES - [facility] Specimen Anatomical Collection Method Collection Time Receive d Time (Source) Location / / Volume Laterality 03/25/2017 5:16 AM 7 5:16 TERRITORY BUSINESS MANAGER AM TERRITORY BUSINESS MANAGER Armani Kumar CRNA A.P.N.P. LAB BLOOD ADD-ON Performing Organization Address City/[facility]/ZIP Code Phon e Number [facility] LABORATORIES - [address] [phone] [facility] Creatinine with Estimated GFR (MDRD) (03/25/2017 5:16 AM TERRITORY BUSINESS MANAGER) Analysis Performed At Patho logist Time Signature Creatinine 1.1 0.8 - 1.3 [facility] MG/DL LABORATORIES - [facility] eGFR >60 >60 [facility] Non-Black/Afric ML/MIN/BSA LABORATORIES - an Cambodian [facility] eGFR-Black/Afri >60 >60 [facility] can Camb[place]ian ML/MIN/BSA LABORATORIES - [facility] Specimen Anatomical Collection Method Collection Time Receive d Time (Source) Location / / Volume Laterality 03/25/2017 5:16 AM 7 5:16 TERRITORY BUSINESS MANAGER AM TERRITORY BUSINESS MANAGER Declan Vergara CRNA.P.N.P. LAB BLOOD ADD-ON Performing Organization Address City/[facility]/ZIP Code Phon e Number [facility] LABORATORIES - [address] [phone] [facility] (ABNORMAL) ACT (Activated Clotting Time), POCT (03/24/2017 4:35 PM TERRITORY BUSINESS MANAGER) Patholo gist Method Time Signature Activated 255 (H) 84 - 139 [facility] Clotting Time, SEC LABORATORIES - POCT [facility] Specimen Anatomical Collection Method Collection Time Receive d Time (Source) Location / / Volume Laterality 03/24/2017 4:35 PM 7 4:35 TERRITORY BUSINESS MANAGER PM TERRITORY BUSINESS MANAGER Historical Provider LAB POCT ORDERABLES - DEVICE Performing Organization Address City/[facility]/ZIP [facility] Phon e Number [facility] LABORATORIES - [address] [phone] [facility] (ABNORMAL) ACT (Activated Clotting Time), POCT (03/24/2017 3:49 PM TERRITORY BUSINESS MANAGER) [facility] Method Time Signature Activated 290 (H) 84 - 139 [facility] Clotting Time, SEC LABORATORIES - POCT [facility] Specimen Anatomical Collection Method Collection Time Receive d Time (Source) Location / / Volume Laterality 03/24/2017 3:49 PM 7 3:49 TERRITORY BUSINESS MANAGER PM TERRITORY BUSINESS MANAGER Historical Provider LAB POCT ORDERABLES - DEVICE Performing Organization Address [facility] Phon e Number [facility] LABORATORIES - [address] [address] [facility] (ABNORMAL) ACT (Activated Clotting Time), POCT (03/24/2017 3:18 PM TERRITORY BUSINESS MANAGER) [facility] Method Time Signature Activated 319 (H) 84 - 139 [facility] Clotting Time, SEC LABORATORIES - POCT [facility] Specimen Anatomical Collection Method Collection Time Receive d Time (Source) Location / / Volume Laterality 03/24/2017 3:18 PM 7 3:18 TERRITORY BUSINESS MANAGER PM TERRITORY BUSINESS MANAGER Historical Provider LAB POCT ORDERABLES - DEVICE Performing Organization Address City/[facility] Code Phon e Number [facility] LABORATORIES - [address] [phone] [facility] (ABNORMAL) CBC without Differential (03/24/2017 6:02 AM TERRITORY BUSINESS MANAGER) [facility] Method Time Signature Hemoglobin 12.0 (L) 13.5 - [facility] 17.5 G/DL [facility] - [facility] Hematocrit 35.5 (L) 38.8 - [facility] 50.0 % LABORATORIES - [facility] RBC Distrib 13.4 11.8 - [facility] Width 15.6 % LABORATORIES - [facility] Platelet Count 261 150 - 450 [facility] X10(9)/L LABORATORIES - [facility] Leukocytes 8.1 3.5 - [facility] 10.5 LABORATORIES - X10(9)/L [facility] Erythrocytes 4.08 (L) 4.32 - [facility] 5.72 LABORATORIES - X10(12)/L [facility] MCV 87.0 81.2 - [facility] 95.1 [place] LABORATORIES - [facility] Specimen Anatomical Collection Method Collection Time Receive d Time (Source) Location / / Volume Laterality 03/24/2017 6:02 AM 7 6:02 TERRITORY BUSINESS MANAGER AM TERRITORY BUSINESS MANAGER Armani Kumar CRNA, A.P.N.P. LAB BLOOD ADD-ON Performing Organization Address City/[facility]/ZIP Code Phon e Number [facility] LABORATORIES - [address] [address] [facility] Creatinine with Estimated GFR (MDRD) (03/24/2017 6:02 AM TERRITORY BUSINESS MANAGER) Analysis Performed At [facility] logist Time Signature Creatinine 1.1 0.8 - 1.3 [facility] MG/DL LABORATORIES - [facility] eGFR >60 >60 [facility] Non-Black/Afric ML/MIN/BSA LABORATORIES - an [place]ian [facility] eGFR-Black/Afri >60 >60 [facility] can [place]ian ML/MIN/BSA LABORATORIES - [facility] Specimen Anatomical Collection Method Collection Time Receive d Time (Source) Location / / Volume Laterality 03/24/2017 6:02 AM 7 6:02 TERRITORY BUSINESS MANAGER AM TERRITORY BUSINESS MANAGER Armani Kumar CRNA, A.P.N.P. LAB BLOOD ADD-ON Performing Organization Address City/[facility] Code Phon e Number [facility] LABORATORIES - [address] [phone] [facility] (ABNORMAL) CBC with Differential (03/23/2017 5:28 AM TERRITORY BUSINESS MANAGER) [facility] gist Method Time Signature Hemoglobin 10.8 (L) 13.5 - [facility] 17.5 G/DL LABORATORIES - [facility] Hematocrit 32.8 (L) 38.8 - [facility] 50.0 % LABORATORIES - [facility] RBC Distrib 13.3 11.8 - [facility] Width 15.6 % LABORATORIES - [facility] Platelet Count 263 150 - 450 [facility] X10(9)/L LABORATORIES - [facility] Lymphocytes 1.84 0.90 - [facility] 2.90 LABORATORIES - X10(9)/L [facility] Monocytes 0.84 0.30 - [facility] 0.90 LABORATORIES - X10(9)/L [facility] Erythrocytes 3.73 (L) 4.32 - [facility] 5.72 LABORATORIES - X10(12)/L [facility] MCV 87.9 81.2 - [facility] 95.1 [place] LABORATORIES - [facility] Leukocytes 7.8 3.5 - [facility] 10.5 LABORATORIES - X10(9)/L [facility] Neutrophils 5.09 1.70 - [facility] 7.00 LABORATORIES - X10(9)/L [facility] Eosinophils <0.03 (L) 0.05 - [facility] 0.50 LABORATORIES - X10(9)/L [facility] Basophils 0.03 0.00 - [facility] 0.30 LABORATORIES - X10(9)/L [facility] Specimen Anatomical Collection Method Collection Time Receive d Time (Source) Location / / Volume Laterality 03/23/2017 5:28 AM 7 5:28 TERRITORY BUSINESS MANAGER AM TERRITORY BUSINESS MANAGER Almas Kearns LAB BLOOD ADD-ON Performing Organization Address City/[facility] Phon e Number [facility] LABORATORIES - [address] [phone] [facility] Electrolyte (Chem 4) Panel (03/23/2017 5:28 AM TERRITORY BUSINESS MANAGER) Analysis Performed At [facility] logist Time Signature Chloride, S 100 98 - 107 [facility] MMOL/L LABORATORIES - [facility] HX Bicarbonate, 23 22 - 29 [facility] P/S MMOL/L LABORATORIES - [facility] eGFR-Black/Afri >60 >60 [facility] can Camb[place]ian ML/MIN/BSA LABORATORIES - [facility] BUN (Blood Urea 22 8 - 24 [facility] Nitrogen), S MG/DL LABORATORIES - [facility] Sodium, S 137 135 - 145 [facility] MMOL/L LABORATORIES - [facility] Potassium, S 3.9 3.6 - 5.2 [facility] MMOL/L LABORATORIES - [facility] Creatinine 1.1 0.8 - 1.3 [facility] MG/DL LABORATORIES - [facility] eGFR >60 >60 [facility] Non-Black/Afric ML/MIN/BSA LABORATORIES - an [place]ian [facility] Anion Gap 14 7 - 15 [facility] LABORATORIES - [facility] Glucose, S 72 70 - 140 [facility] MG/DL LABORATORIES - [facility] Specimen Anatomical Collection Method Collection Time Receive d Time (Source) Location / / Volume Laterality 03/23/2017 5:28 AM 7 5:28 TERRITORY BUSINESS MANAGER AM TERRITORY BUSINESS MANAGER Almas Kearns LAB BLOOD ADD-ON Performing Organization Address City/[facility] Phon e Number [facility] LABORATORIES - [address] [phone] [facility] (ABNORMAL) ACT (Activated Clotting Time), POCT (03/22/2017 12:29 PM TERRITORY BUSINESS MANAGER) [facility] gist Method Time Signature Activated 290 (H) 84 - 139 [facility] Clotting Time, SEC LABORATORIES - POCT [facility] Specimen Anatomical Collection Method Collection Time Receive d Time (Source) Location / / Volume Laterality 03/22/2017 12:29 03/22/2017 PM TERRITORY BUSINESS MANAGER 12:29 PM TERRITORY BUSINESS MANAGER Historical Provider LAB POCT ORDERABLES - DEVICE Performing Organization Address [facility] Phon e Number [facility] LABORATORIES - [address] [phone] [facility] (ABNORMAL) ACT (Activated Clotting Time), POCT (03/22/2017 11:48 AM TERRITORY BUSINESS MANAGER) [facility] Method Time Signature Activated 299 (H) 84 - 139 [facility] Clotting Time, SEC LABORATORIES - POCT [facility] Specimen Anatomical Collection Method Collection Time Receive d Time (Source) Location / / Volume Laterality 03/22/2017 11:48 03/22/2017 AM TERRITORY BUSINESS MANAGER 11:48 AM TERRITORY BUSINESS MANAGER Historical Provider LAB POCT ORDERABLES - DEVICE Performing Organization Address City/[facility] Phon e Number [facility] LABORATORIES - [address] [address] [facility] Heparin Anti-Xa Assay (03/22/2017 10:23 AM TERRITORY BUSINESS MANAGER) P athologist Signature Heparin 0.36 IU/ML [facility] Anti-Xa Assay, LABORATORIES - P [facility] Comment: UFH therapeutic range: ? 0.30-0.70 IU/mL [...] Time (Source) Location / / Volume Laterality 03/22/2017 10:23 03/22/2017 AM TERRITORY BUSINESS MANAGER 10:23 AM TERRITORY BUSINESS MANAGER Earle Duncan M.D. LAB BLOOD NON ADD-ON Performing Organization Address City/State/ZIP Code Phon e Number [facility] LABORATORIES - [address] [place], [place] [address] [facility] Heparin Anti-Xa Assay (03/22/2017 3:09 AM TERRITORY BUSINESS MANAGER) athologist Signature Heparin 0.49 IU/ML [facility] Anti-Xa Assay, [facility] Comment: UFH therapeutic range: ? [...] Time (Source) Location / / Volume Laterality 03/22/2017 3:09 AM 7 3:09 TERRITORY BUSINESS MANAGER AM TERRITORY BUSINESS MANAGER Barrett Manzano M.D., M.S. LAB BLOOD NON ADD-ON Performing Organization Address City/State/[facility] Code Phon e Number [facility] LABORATORIES - [address] [place], [place] [address] [facility] (ABNORMAL) CBC without Differential (03/22/2017 3:09 AM TERRITORY BUSINESS MANAGER) [facility] Method Time Signature Erythrocytes 4.02 (L) 4.32 - [facility] 5.72 LABORATORIES - X10(12)/L [facility] MCV 86.6 81.2 - [facility] 95.1 [place] LABORATORIES [facility] Hemoglobin 11.9 (L) 13.5 - [facility] 17.5 G/DL LABORATORIES [facility] Hematocrit 34.8 (L) 38.8 - [facility] 50.0 % [facility] RBC Distrib 13.7 11.8 - [facility] Width 15.6 % [facility] Platelet Count 268 150 - 450 [facility] X10(9)/L [facility] Leukocytes 7.1 3.5 - [facility] 10.5 LABORATORIES - X10(9)/L [facility] Specimen Anatomical Collection Method Collection Time Receive d Time (Source) Location / / Volume Laterality 03/22/2017 3:09 AM 7 3:09 TERRITORY BUSINESS MANAGER AM TERRITORY BUSINESS MANAGER Barrett Manzano M.D., M.S. LAB BLOOD ADD-ON Performing Organization Address City/State/ZIP Code Phon e Number [facility] LABORATORIES - [address] [place], [place] [address] [facility] ECG 12 Lead (03/21/2017 8:56 PM TERRITORY BUSINESS MANAGER) Specimen (Source) Anatomical Collection Method Collection Time Re ceived Time Location / / Volume Laterality 03/21/2017 8:56 PM TERRITORY BUSINESS MANAGER Narrative HX [place] CONVERSION - 03/21/2017 9:0 3 PM TERRITORY BUSINESS MANAGER 21Mar2017 20:56 VENTRICULAR RATE 70 Sinus rhythm Premature atrial complexes Right bundle branch block with secondary ST-T abnormalities When compared with ECG of 21-MAR-2017 12 :51, No significant change was found [id number]^FATOUMATA DEWEY^ASHER Procedure Note Asher Whitlock M.D., Ph.D. 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 ECG ORDERABLES Performing Organization Address City/[facility]/ZIP Code Phon e Number HX [place] CONVERSION (ABNORMAL) CBC with Differential (03/21/2017 8:55 PM TERRITORY BUSINESS MANAGER) [facility] Method Time Signature Hemoglobin 13.2 (L) 13.5 - [facility] 17.5 G/DL LABORATORIES - [facility] Hematocrit 39.3 38.8 - [facility] 50.0 % LABORATORIES - [facility] RBC Distrib 13.8 11.8 - [facility] Width 15.6 % LABORATORIES [facility] Platelet Count 315 150 - 450 [facility] X10(9)/L LABORATORIES [facility] Lymphocytes 1.90 0.90 - [facility] 2.90 LABORATORIES - X10(9)/L [facility] Monocytes 0.75 0.30 - [facility] 0.90 LABORATORIES - X10(9)/L [facility] Erythrocytes 4.49 4.32 - [facility] 5.72 LABORATORIES - X10(12)/L [facility] MCV 87.5 81.2 - [facility] 95.1 [place] LABORATORIES - [facility] Leukocytes 7.2 3.5 - [facility] 10.5 LABORATORIES - X10(9)/L [facility] Neutrophils 4.52 1.70 - [facility] 7.00 LABORATORIES - X10(9)/L [facility] Eosinophils <0.03 (L) 0.05 - [facility] 0.50 LABORATORIES - X10(9)/L [facility] Basophils 0.04 0.00 - [facility] 0.30 LABORATORIES - X10(9)/L [facility] Specimen Anatomical Collection Method Collection Time Receive d Time (Source) Location / / Volume Laterality 03/21/2017 8:55 PM 7 8:55 TERRITORY BUSINESS MANAGER PM TERRITORY BUSINESS MANAGER Barrett Manzano M.D., M.S. LAB BLOOD ADD-ON Performing Organization Address City/[facility]/ZIP [facility] Phon e Number [facility] LABORATORIES - [address] [address] [facility] APTT (Activated Partial Thromboplastin Time) (03/21/2017 8:55 PM TERRITORY BUSINESS MANAGER) P athologist Signature APTT, P 30 25 - 37 SEC [facility] Specimen Anatomical Collection Method Collection Time Receive d Time (Source) Location / / Volume Laterality 03/21/2017 8:55 PM 7 8:55 TERRITORY BUSINESS MANAGER PM TERRITORY BUSINESS MANAGER Barrett Manzano M.D., M.S. LAB BLOOD ADD-ON Performing Organization Address City/[facility] Code Phon e Number [facility] LABORATORIES - [address] [phone] [facility] PT (Prothrombin Time) with INR (03/21/2017 8:55 PM TERRITORY BUSINESS MANAGER) Patholo gist Method Time Signature Prothrombin 11.4 9.4 - 12.5 [facility] Time, P SEC LABORATORIES [facility] INR 1.0 0.9 - 1.1 [facility] Comment: ? ADDITIONAL INFORMATIO N ? Standard intensity warfarin therapeutic range: 2.0 to 3.0 ? High intensity warfarin therapeutic rang e: 2.5 to 3.5 ? Specimen Anatomical Collection Method Collection Time Receive d Time (Source) Location / / Volume Laterality 03/21/2017 8:55 PM 7 8:55 TERRITORY BUSINESS MANAGER PM TERRITORY BUSINESS MANAGER Barrett Manzano M.D., M.S. LAB BLOOD ADD-ON Performing Organization Address City/State/ZIP Code Phon e Number [facility] - [address] [place], [place] [address] [facility] (ABNORMAL) Cardiac Biomarker Panel (03/21/2017 8:55 PM TERRITORY BUSINESS MANAGER) Analysis Performed At Patho logist Time Signature Delta Interp Not Sig [facility] Comment: No significant delta observed. Troponin Delta % 5.9 % [facility] Troponin T 6H, S 1.8 (H) <0.01 NG/ML [facility] Delta Interp Not Sig [facility] Comment: No significant delta observed. Troponin T, S 1.7 (H) <0.01 NG/ML [facility] LA [facility] Troponin T 3H, S 1.8 (H) <0.01 NG/ML [facility] - [facility] Troponin Delta % 5.9 % [facility] Specimen Anatomical Collection Method Collection Time Receive d Time (Source) Location / / Volume Laterality 03/21/2017 8:55 PM 7 8:55 TERRITORY BUSINESS MANAGER PM TERRITORY BUSINESS MANAGER Barrett Manzano M.D., M.S. LAB BLOOD ADD-ON Performing Organization Address City/State/ZIP Code Phon e Number [facility] - [address] [place], [place] [address] [facility] (ABNORMAL) Electrolyte (Chem 4) Panel (03/21/2017 8:55 PM TERRITORY BUSINESS MANAGER) [facility] gist Method Time Signature Sodium, S 140 135 - 145 [facility] MMOL/L LABORATORIES - [facility] Potassium, S 4.3 3.6 - 5.2 [facility] MMOL/L LABORATORIES [facility] Creatinine 1.3 0.8 - 1.3 [facility] MG/DL LABORATORIES - [facility] eGFR 55 (L) >60 [facility] Non-Black/Afric ML/MIN/BSA LABORATORIES - an Cambodian [facility] eGFR-Black/Afri >60 >60 [facility] can Cambodian ML/MIN/BSA LABORATORIES - [facility] BUN (Blood Urea 17 8 - 24 [facility] Nitrogen), S MG/DL LABORATORIES - [facility] Anion Gap 15 7 - 15 [facility] LABORATORIES - [facility] Glucose, S 76 70 - 140 [facility] MG/DL [facility] - [facility] Chloride, S 98 98 - 107 [facility] MMOL/L LABORATORIES - [facility] HX Bicarbonate, 27 22 - 29 [facility] P/S MMOL/L LABORATORIES - [facility] Specimen Anatomical Collection Method Collection Time Receive d Time (Source) Location / / Volume Laterality 03/21/2017 8:55 PM 7 8:55 TERRITORY BUSINESS MANAGER PM TERRITORY BUSINESS MANAGER Barrett Manzano M.D., M.S. LAB BLOOD ADD-ON Performing Organization Address City/State/ZIP Code Phon e Number [facility] - [address] [place] [phone] [facility] DX Chest AP or PA and Lateral 2 Views (03/21/2017 8:43 PM TERRITORY BUSINESS MANAGER) Anatomical Region Laterality Modality Chest N/A Radiographic Imaging Specimen (Source) Anatomical Collection Method Collection Time Re ceived Time Location / / Volume Laterality 03/21/2017 8:43 PM TERRITORY BUSINESS MANAGER Impressions 03/22/2017 7:20 AM TERRITORY BUSINESS MANAGER ??Anterior eventration of the right hemidiaphragm. Calcified aorta. Bilateral shoulder prostheses. Hypertrophic changes of the thoracic spine. Chest otherwise negative. Electronically signed by: ?? Andrez Tran MD [phone] 21-Mar-2017 20:54 I have reviewed the films/images and agr ee with the above interpretation. Electronically signed by: ?? Kathryn Arenas MD. ??[phone] 22-Mar-2017 07:2 0 Narrative 03/22/2017 7:20 AM TERRITORY BUSINESS MANAGER 21-Mar-2017 20:43:00 ??Exam: Chest-- 2 Views Indications: [facility] ORIGINAL REPORT - 21-Mar-2017 20:54:00 EXAM: ??Chest 2 views Procedure Note Coco Arenas M.D. - 07/30/2017Fo rmatting of this note might be different from the original. 21-Mar-2017 20:43:00 Exam: Chest-- 2 Vie ws Indications: [facility] ORIGINAL REPORT - 21-Mar-2017 20:54:00 EXAM: Chest 2 views IMPRESSION: Anterior eventration of the right hemidiaphragm. Calcified aorta. Bilateral shoulder prostheses. Hypertrophic changes of the thoracic spine. Chest otherwise negative. Electronically signed by: Andrez Tran MD [phone] 21-Mar-2017 20:54 I have reviewed the films/images and agr ee with the above interpretation. Electronically signed by: Kathryn Arenas MD. [phone] 22-Mar-2017 07:20 Barrett Manzano M.D., M.S. IMDemarco DIAGNOSTIC IMAGING PROCE DIMITRIOS documented in this encounter Visit Diagnoses Not on filedocumented in this encounter Additional Health Concerns Assessment Noted Time PHQ-9 Depression Total Score: 3 03/21/2017 11:44 AM CS T documented as of this encounter Care Teams Saw Handle Assembler Relationship Specialty Start Date End Date Leta Sanchez M.D. PCP - General 10/17/16 10/18/19 documented as of this encounter
--- OUTSIDE RECORDS SUMMARY | 2022-03-29 07:52 | XMS_ITS | Encounter Summary ---
:1950 Author Organization [facility] Address [address] [place] [address] Care Team Providers Name Role Phone Unavailable Primary Care Provider Unavailable Encounter Details Date Type Department Care Team Description 09/23/2016 Hospital Encounter HX [facility] Riley Sanchez M.D. [address] [facility], [facility] [address] [phone] Social History Tobacco Use Types Packs/Day [...] How often do you attend anabaptism or mandaen services? 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 - 10/06/2016 10:32 PM CDT Results Notification 09/23/2016 Document Contains Addenda Addendum by CHUCKY DUNCAN LPN on October 08, 2016 10:13:46 CDT Spoke with: ( x ) Patient ( _ ) Parent ( _ ) Spouse ( _ ) Child ( ) Other: _ Call back telephone number: [phone] Reason for Call: -Test Results Chief Complaint: Patient notified of results and Dr. Sanchez's recommendations. Patient denies any fever or signs of infection and will call us if he develops anything. _ Patient/Caller response to Education/Information given: ( x ) Verbalizes understanding of instructions ( _ ) Provide intervention per provider instruction ( _ ) Reinforce information already given ( _ ) Reinforce Plan of Care ( _ ) Provide preprinted information by mail (if applicable) Source/Reference used (if applicable): Laura OK to leave message on voice mail? NA OK to send message via patient portal? NA Patient told to expect return call: NA ( _ ) today ( _ ) tomorrow ( _ ) next work day Callers preferred language for Healthcare discussion: Bolivian Was an insurance examining clerk used for this call? No Other ( --x ) No further action needed at this time. Addendum by KEYUR ALANIZ LPN on October 07, 2016 08:49:32 CDT message left for patient to return call From: RILEY SANCHEZ MD To: JOSE Sanchez Nurse; Sent: 10/06/2016 22:32:30 CDT ! Show up: 10/06/2016 22:32:00 CDT Subject: Results Notification 09/23/2016 Actions: Notify patient of results, Notify Patient of Future Order Please call him wih following messages. Your WBC(White blood cell) slightly high, most likely due to Prednisone. Please contact us if you have fever or any symptoms and signs of infection. Sed rate(Test for inflammation) is slightly high. Please continue current dose of Prednisone. Need to check blood tests every month. Results: Date Result Name Ind Value Ref Range 09/23/2016 08:31 Hgb 14.6 g/dL (13.5 - 17.5) 09/23/2016 08:31 Hct 43.1 % (38.8 - 50.0) 09/23/2016 08:31 WBC (H) 13.1 x10(9)/L (3.5 - 10.5) 09/23/2016 08:31 RBC 4.95 x10(12)/L (4.32 - 5.72) 09/23/2016 08:31 MCV 87.1 fL (81.0 - 95.0) 09/23/2016 08:31 RDW 14.1 % (11.8 - 15.6) 09/23/2016 08:31 Platelet 334 x10(9)/L (150 - 450) 09/23/2016 08:31 Neutro Absolute (H) 8.23 10(9)/L (1.70 - 7.00) 09/23/2016 08:31 Lymph Absolute 2.70 x10(9)/L (0.90 - 2.90) 09/23/2016 08:31 [place] Absolute (H) 1.69 x10(9)/L (0.30 - 0.90) 09/23/2016 08:31 Eos Absolute 0.44 x10(9)/L (0.05 - 0.50) 09/23/2016 08:31 Baso Absolute 0.06 x10(9)/L (0.00 - 0.30) 09/23/2016 08:31 Sed Rate (H) 30 mm/hr (0 - 22) Source: [facility] Sciences-UCHART Document Id: [id number] Miscellaneous - Riley Sanchez M.D. - 10/06/2016 10:31 PM CDT Custom Result Letter October 06, 2016 SEVEN SALAZAR [address] [facility] [address] Dear SEVEN SALAZAR, Your WBC(White blood cell) slightly high, most likely due to Prednisone. Please contact us if you have fever or any symptoms and signs of infection. Sed rate(Test for inflammation) is slightly high. Please continue current dose of Prednisone. Please follow up with us as we discussed during your visit or sooner if you have any concerns. If you have questions or concerns, please do not hesitate to call our office. Result Name Current Result Normal Range Hgb (g/dL) 14.6 09/23/2016 13.5 - 17.5 Hct (%) 43.1 09/23/2016 38.8 - 50.0 WBC (x10(9)/L) (H) 13.1 09/23/2016 3.5 - 10.5 Platelet (x10(9)/L) 334 09/23/2016 150 - 450 Sed Rate (mm/hr) (H) 30 09/23/2016 0 - 22 Sincerely, RILEY SANCHEZ [address] [place] [address] Electronic Signature Electronically Signed By: RILEY SANCHEZ MD On: October 06, 2016 This document has images extracted. Source: [employer] Document Id: [id number] documented in this encounter Plan of Treatment Upcoming Encounters Date Type Specialty Care Team Description 04/12/2022 Office Visit Cardiovascular Disease Simone Gooden AP RN, C.N.P. [address] [phone] (Wo rk) documented as of this encounter Procedures Procedure Name Priority Date/Time Associated Comments Diagnosis AUTOMATED Routine 09/23/2016 8:31 AM Results f or this DIFFERENTIAL, B CDT procedure ar e in the results section. SEDIMENTATION RATE, B Routine 09/23/2016 8:31 AM Results for this CDT procedure are i n the results section. CBC WITH DIFFERENTIAL, Routine 09/23/2016 8:31 AM Results for this B CDT procedure are i n the results section. documented in this encounter Results (ABNORMAL) Automated Differential (09/23/2016 8:31 AM CDT) [employer] gist Method Time Signature Absolute 8.23 (H) 1.70 - POWERCHART Neutrophils 7.00 109L Lymphocytes 2.70 0.90 - POWERCHART 2.90 X109L Monocytes 1.69 (H) 0.30 - POWERCHART 0.90 X109L Eosinophils 0.44 0.05 - POWERCHART 0.50 X109L Absolute 0.06 0.00 - POWERCHART Basophil 0.30 X109L Specimen Anatomical Collection Method Collection Time Receive d Time (Source) Location / / Volume Laterality Blood 09/23/2016 8:31 AM 7 8:31 CDT AM CDT Riley Sanchez M.D. LAB BLOOD ADD-ON Performing Organization Address City/State/ZIP Code Phon e Number POWER[facility]ART (ABNORMAL) Sedimentation Rate (09/23/2016 8:31 AM CDT) [employer] gist Method Time Signature Sedimentation 30 (H) 0 - 22 POWER[facility]ART Rate, B MM[facility] Specimen (Source) Anatomical Collection Method Collection Time Re ceived Time Location / / Volume Laterality Blood 09/23/2016 8:31 AM CDT Riley Sanchez M.D. LAB BLOOD ADD-ON Performing Organization Address City/State/ZIP Code Phon e Number [facility] (ABNORMAL) CBC with Differential (09/23/2016 8:31 AM CDT) Analysis Performed At Patho logist Time Signature Leukocytes 13.1 (H) 3.5 - 10.5 POWERCHART X109L Erythrocytes 4.95 4.32 - POWERCHART 5.72 [id number] Hemoglobin 14.6 13.5 - POWERCHART 17.5 GDL Hematocrit 43.1 38.8 - POWERCHART 50.0 MCV 87.1 81.0 - POWERCHART 95.0 FL HX RDW 14.1 11.8 - POWERCHART 15.6 Platelet Count 334 150 - 450 POWERCHART X109L Specimen (Source) Anatomical Collection Method Collection Time Re ceived Time Location / / Volume Laterality Blood 09/23/2016 8:31 AM CDT Riley Sanchez M.D. LAB BLOOD ADD-ON Performing Organization Address City/State/ZIP Code Phon e Number P[facility]ART documented in this encounter Visit Diagnoses Not on filedocumented in this encounter
--- OUTSIDE RECORDS SUMMARY | 2022-03-29 07:52 | XMS_ITS | Encounter Summary ---
:1950 Author Organization [facility] Address [address] [place] [address] Care Team Providers Name Role Phone Riley Sanchez M.D. Primary Care Provider Encounter Details Date Type Department Care Team Description 03/06/2017 Hospital Encounter HX [facility] INTERNMED Riley Sanchez M.D. [address] [facility], [facility] [address] [phone] Social History Tobacco Use Types Packs/Day [...] How often do you attend anabaptism or confucianist services? 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 documented as of this encounter Progress Riley Sauer M.D. - 03/06/2017 2:29 PM CDT [id number] CHIEF COMPLAINT/REASON FOR VISIT 1. Followup on abdominal pain. 2. Discuss test results. HISTORY OF PRESENT ILLNESS Mik is a 67-year-old male who presents to the clinic today for a three day followup from 03/04/2017.He was prescribed Levaquin 500 mg daily for 10 days for abdominal pain and diarrhea with history of diverticulosis. Chest x-ray and abdominal x-ray were negative. Labs on 03/04/2017 were remarkable for alkaline phosphatase 102, glucose 109, creatinine 1.12, albumin 4.2, AST 18, ALT 11, normal bilirubin, hemoglobin A1c 6.0, TSH 0.91, hemoglobin 14.7, WBC 16.4, absolute neutrophiles 12.79, and sedimentation rate 33. His diarrhea is better today. He had rice bread and plain spaghetti for lunch today. He had bowel movement twice yesterday. No blood in stool. He denies any dry mouth or dizziness. He feels weak overall. He still has abdominal pain, but this is better as well. He is passing gas occasionally. There are no additional questions, concerns, or [...] rest of ROS negative. PAST MEDICAL/SURGICAL HISTORY Reviewed and updated as per the EHR on 03/06/2017. PREVENTIVE SERVICES Reviewed and updated as per the EHR on 03/06/2017. SOCIAL HISTORY Reviewed and updated as per the EHR on 03/06/2017. FAMILY HISTORY Reviewed and updated as per the EHR on 03/06/2017. VITAL SIGNS HEIGHT: 173 cm. WEIGHT: 103.1 kg. BMI: 34.45 kg/m2. TEMP: 36.1 Deg C. PULSE: 100 /min. RESP: 16 /min. O2SAT: 96 %. SYSTOLIC: 131 mmHg. DIASTOLIC: 58 mmHg. PHYSICAL EXAMINATION GENERAL: Patient is sitting. No distress. Able to talk without interruption. HEAD: No facial rash, asymmetry, or sinus [...] rebound tenderness, guarding, or rigidity. No organomegaly. EXTREMITIES: No clubbing, cyanosis, edema, infection, or calf tenderness. IMPRESSION/REPORT/PLAN 1. Abdominal pain and diarrhea with possible diverticulitis. His symptoms are improved after taking antibiotic. There was no acute abdomen clinically. He was advised to finish Levaquin, drink plenty offluids, and eat small, easily- digestible foods. I do not think he needs CT scan right now because hefeels better. He should hold Hydrochlorothiazide if he has diarrhea. He should go to hospital ER andhave abdominal CT if his symptoms worsen. Patient can return to work on 03/10/2017. 2. Impaired fasting glucose. It could be due to Prednisone therapy. There are no symptoms and signs suggestive for type 2 diabetes mellitus. Patient was advised to cut back calories and carbohydrates. We will monitor fasting glucose and hemoglobin A1c at subsequent visit. 3. Discussed test results. I reviewed test results from 03/04/2017. All questions were answered. Return to the clinic in 1 week for followup. This document serves as a record of services personally performed by Dr. Riley Sanchez. It was created on their behalf by Juan Ramos, a trained veterinary medical officer. The creation of this record is based on the scribe's personal observations and the provider's statements to them. This document has been checked and approved by the attending provider. Riley Sanchez M.D./arti Electronically Signed By: RILEY SANCHEZ MD On: 03/06/2017 04:46 PM Modified by and Electronically Signed by: RILEY SANCHEZ MD On: 03/06/2017 04:46 PM Source: [facility] [email or web address] Document Id: [id number] documented in this encounter Miscellaneous Notes Miscellaneous - Riley Sanchez M.D. - 03/06/2017 2:57 PM CDT Ambulatory Patient Summary [address] [id number] Visit Information Name: SEVEN SALAZAR [facility] Number: [id number] Current Date: 03/06/2017 14:57:30 Physicians Attending Provider: RILEY SANCHEZ MD Primary [...] Oral, once a day x 10 day(s) lisinopril (lisinopril 40 mg oral tablet) 1 [...] the Following Medications: Medication list as of 03-06-17 14:57 Attention: If you have any medications at [...] Electronically Signed By: RILEY SANCHEZ MD Signed On:06-MAR-2017 14:57:18 Your Allergies & Intolerances Substance Reaction Symptoms [...] if you dont have one. Go to [email or web address] and click on Create Your Account. Then, follow the directions to complete the online form. Youll be asked for your [facility] number which you can find at the top of this document. Your Goals/Additional instructions: Source: [facility] POWERCHART Document Id: [id number] Miscellaneous - Riley Sanchez M.D. - 03/06/2017 2:57 PM CDT Ambulatory Discharge Medication List [address] [id number] Visit Information Name: SEVEN SALAZAR [facility] Number: [id number] Current Date: 03/06/2017 14:57:29 Attending Provider: RILEY SANCHEZ MD Primary Care [...] Oral, once a day x 10 day(s) lisinopril (lisinopril 40 mg oral tablet) 1 [...] the Following Medications: Medication list as of 03-06-17 14:57 Attention: If you have any medications at [...] Electronically Signed By: RILEY SANCHEZ MD Signed On:06-MAR-2017 14:57:18 Additional Information: Source: [employer] Document Id: [id number] Miscellaneous - Riley Sanchez M.D. 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 - 03/06/2017 2:36 PM CDT Adult Parking Enforcement Technician Intake/History Document Has Been Updated Adult Parking Enforcement Technician Intake/History Entered On: 03/06/2017 14:39 CDT Performed On: 03/06/2017 14:36 CDT by DILCIA BLACKMON LPN Intake Chief Complaint : 1. Adb pain and diarrhea Temperature Core : 36.1 DegC(Converted to: 97.0 DegF) (LOW) Peripheral Pulse Rate : 100 /min Respiratory Rate : 16 /min Systolic Blood Pressure : 131 mmHg Diastolic Blood Pressure : 58 mmHg NIBP Mean : 82 mmHg BP Location : Left upper extremity Blood Pressure Cuff Size : Regular SpO2 : 96 % Oxygen Therapy : Room air Height : 173 cm(Converted to: 5 ft 8 inch(es), 68 inch(es)) Actual Weight : 103.10 kg(Converted to: 227 lb 5 oz) Weight Source : Standing scale Dosing Weight Clinic : 103.1 kg Clinic BSA : 2.23 Body Mass Index : 34.45 kg/m2 DILCIA BLACKMON LPN - 03/06/2017 14:36 CDT General Info Information Given By : Patient Preferred Communication Mode : Verbal, Written Languages : Welsh Is Patient Female and 13-50 no hysterectomy : No DILCIA BLACKMON LPN - 03/06/2017 14:36 CDT Subjective Pain Symptoms : Yes DILCIA BLACKMON LPN - 03/06/2017 14:36 CDT Pain Scale Pain Scale Verbal 0-10 : Open DILCIA BLACKMON LPN - 03/06/2017 14:36 CDT Pain Pain Assessment Grid Pain 1 Location : Abdomen DILCIA BLACKMON LPN - 03/06/2017 14:36 CDT Dependent Habits Exposure to Tobacco Smoke : Patient smokes Smoking Status : Current every day smoker Tobacco 2A : Yes Tobacco Use/Currently Using : Yes Tobacco Use/Last 30 Days : Yes Tobacco Use/Last 12 months : Yes Type : Cigarettes: Less than 20 per day Tobacco Use/Advised to Quit : Yes DILCIA BLACKMON LPN - 03/06/2017 14:36 CDT Caffeine Use Grid Caffeine Use : Current Type : Coffee, Tea Frequency : Daily Amount : 2 cup coffee/2 tea daily DILCIA BLACKMON LPN - 03/06/2017 14:36 CDT Recreational Drug Use Grid Drug Use : None DILCIA BLACKMON LPN - 03/06/2017 14:36 CDT Allergy (As Of: 03/06/2017 14:39:36 CDT) Allergies (Active) citalopram Estimated Onset Date: Unspecified ; Reactions: Diarrhea ; Created By: RILEY SANCHEZ MD; Reaction Status: Active ; Category: Drug ; Substance: citalopram ; Type: Allergy ; Updated By: RILEY SANCHEZ MD; Reviewed Date: 03/06/2017 14:36 CDT Influenza Virus Vaccine Estimated Onset Date: Unspecified ; Reactions: Sickness ; Created By: RILEY SANCHEZ MD; Reaction Status: Active ; Category: Drug ; Substance: Influenza Virus Vaccine ; Type: Allergy ; Updated By: RILEY SANCHEZ MD; Reviewed Date: 03/06/2017 14:36 CDT pravastatin Estimated Onset Date: Unspecified ; Reactions: Myalgia, Arthralgia ; Created By: RILEY SANCHEZ MD; Reaction Status: Active ; Category: Drug ; Substance: pravastatin ; Type: Allergy ; Updated By: RILEY SANCHEZ MD; Reviewed Date: 03/06/2017 14:36 CDT Wellbutrin Estimated Onset Date: Unspecified ; Reactions: Suicidal thoughts ; Created By: CHUCKY DUNCAN LPN; Reaction Status: Active ; Category: Drug ; Substance: Wellbutrin ; Type: Allergy ; Updated By: CHUCKY DUNCAN LPN; Reviewed Date: 03/06/2017 14:36 CDT Source: [facility] The Farmer[employer]CHART Document Id: [id number] CDT!50 documented in this encounter Plan of Treatment Upcoming Encounters Date Type Specialty Care Team Description 04/12/2022 Office Visit Cardiovascular Disease Simone Gooden AP RN, C.N.P. [address] [phone] (Wo rk) documented as of this encounter Visit Diagnoses Not on filedocumented in this encounter Additional Health Concerns Assessment Noted Time PHQ-9 Depression Total Score: 1 03/04/2017 11:21 AM CD T documented as of this encounter Care Teams Swimming Coach Or Instructor Relationship Specialty Start Date End Date Riley Sanchez M.D. PCP - General 10/17/16 10/18/19 documented as of this encounter
--- OUTSIDE RECORDS SUMMARY | 2022-03-29 07:52 | XMS_ITS | Encounter Summary ---
:1950 Author Organization [facility] Address [address] [place] [address] Care Team Providers Name Role Phone Leta Sanchez M.D. Primary Care Provider Encounter Details Date Type Department Care Team Description 03/14/2017 Hospital Encounter Department of Leta Sanchez M.D. Diarrhea; Laboratory Medicine [address] in Epigastric in [facility] [address] [place], [place] [address] [address] [place] [phone] Social History Tobacco Use Types [...] How often do you attend sabianism or sikhism services? 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 documented as of this encounter Plan of Treatment Upcoming Encounters Date Type Specialty Care Team Description 04/12/2022 Office Visit Cardiovascular Disease Simone Gooden AP RN, C.N.P. [address] [phone] (Wo rk) documented as of this encounter Visit Diagnoses Diagnosis Diarrhea Pain Epigastric documented in this encounter Additional Health Concerns Assessment Noted Time PHQ-9 Depression Total Score: 1 03/04/2017 11:21 AM CD T documented as of this encounter Care Teams Gambreler Helper Relationship Specialty Start Date End Date Leta Sanchez M.D. PCP - General 10/17/16 10/18/19 documented as of this encounter
--- OUTSIDE RECORDS SUMMARY | 2022-03-29 07:52 | XMS_ITS | Encounter Summary ---
:1950 Author Organization [facility] Address [address] [place] [address] Care Team Providers Name Role Phone Leta Sanchez M.D. Primary Care Provider Reason for Visit Reason Comments Communication Encounter Details Date Type Department Care Team Description 03/17/2017 Clinical Communication Department of Gareth Sanchez M.D. Communication [facility] [address] [facility] [address] [place], [place] [phone] [address] (Fax) [phone] Social History Tobacco Use Types Packs/Day Years [...] often do you attend jehovah's witness or church services? 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 - 03/18/2017 9:17 AM CST Order was sent via fax to [facility] 03/17/17. DER SET UP OPERATOR Telephone Encounter - Leta Sanchez M.D. - 03/17/2017 5:41 PM CST Please call [facility] to schedule CT of abdomen and pelvis with IV contrast, BRAD. Dx: Abdominal pain with diarrhea. Treated with antibiotic. He takes prednisone Rx for polymyalgia rheumatica. DER SET UP OPERATOR documented in this encounter Plan of Treatment Upcoming Encounters Date Type Specialty Care Team Description 04/12/2022 Office Visit Cardiovascular Disease Simone Gooden AP RN, C.N.P. [address] [phone] (Wo rk) documented as of this encounter Visit Diagnoses Not on filedocumented in this encounter Additional Health Concerns Assessment Noted Time PHQ-9 Depression Total Score: 1 03/04/2017 11:21 AM CD T documented as of this encounter Care Teams Warp Coiler Relationship Specialty Start Date End Date Leta Sanchez M.D. PCP - General 10/17/16 10/18/19 documented as of this encounter
--- OUTSIDE RECORDS SUMMARY | 2022-03-29 07:52 | XMS_ITS | Encounter Summary ---
:1950 Author Organization [facility] Address [address] [place] [address] Care Team Providers Name Role Phone Unavailable Primary Care Provider Unavailable Encounter Details Date Type Department Care Team Description 10/07/2016 Hospital Encounter HX NO MAPPING Darlene Camejo M.D. [address] [place], [place] [phone] (Wo rk) Social History [...] How often do you attend restorationist or buddhism services? 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 [address] [place] [phone] (Wo rk) documented as of this encounter Visit Diagnoses Not on filedocumented in this encounter
--- OUTSIDE RECORDS SUMMARY | 2022-03-29 07:53 | XMS_ITS | Encounter Summary ---
:1950 Author Organization [facility] Address [address] [place] [address] Care Team Providers Name Role Phone Unavailable Primary Care Provider Unavailable Encounter Details Date Type Department Care Team Description 06/10/2016 Hospital Encounter HX NO MAPPING Darlene Camejo M.D. [address] [place], [place] [phone] (Wo rk) Social History [...] How often do you attend christian or baptism services? 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 [address] [phone] (Wo rk) documented as of this encounter Visit Diagnoses Not on filedocumented in this encounter Additional Health Concerns Assessment Noted Time PHQ-9 Depression Total Score: 6 06/10/2016 8:13 AM PERFORMANCE SPECIALIST documented as of this encounter
--- OUTSIDE RECORDS SUMMARY | 2022-03-29 07:53 | XMS_ITS | Encounter Summary ---
:1950 Author Organization [facility] Address [address] [place] [address] Care Team Providers Name Role Phone Unavailable Primary Care Provider Unavailable Encounter Details Date Type Department Care Team Description 04/16/2016 Hospital Encounter HX [facility] Tarik Camejo M.D. [address] [place], [place] [phone] (Wo rk) Social History Tobacco Use Types Packs/Day Years Used Date Smoking Tobacco: Never Assessed Alcohol Habits Answer Date Recorded How often [...] How often do you attend orthodox or druze services? 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 documented as of this encounter Plan of Treatment Upcoming Encounters Date Type Specialty Care Team Description 04/12/2022 Office Visit Cardiovascular Disease Simone Gooden AP RN, C.N.P. [address] [place] [phone] (Wo rk) documented as of this encounter Procedures Procedure Name Priority Date/Time Associated Comments Diagnosis URINALYSIS WITH Routine 04/16/2016 9:58 AM Result s for this MICROSCOPIC CRIMINAL INVESTIGATIVE AGENT procedure are i n the results section. BACTERIAL CULTURE, Routine 04/16/2016 9:58 AM Res ults for this AEROBIC, URINE CRIMINAL INVESTIGATIVE AGENT procedure are in the results section. documented in this encounter Results (ABNORMAL) Urinalysis, Complete, Includes Microscopic (04/16/2016 9:58 AM CRIMINAL INVESTIGATIVE AGENT) [facility] [employer] Method Time Signature HXUR WBC. 51-100 (A) None Seen POWERCHART HPF HXUR RBC. Occ-2 None Seen POWERCHART HPF Casts, Hyaline 11-20 (A) None Seen POWERCHART LPF HXUr Color Yellow Yellow POWERCHART Clarity Clear Clear POWERCHART Glucose Negative Negative POWERCHART HXBILIRUBIN Negative Negative POWERCHART Ketones, QL(U) Negative Negative POWERCHART Specific 1.014 1.001 - POWERCHART [place], POCT, 1.035 U Comment: Reference Range Specific [place]: 1.000-1.035 pH, POCT, Urine 6.5 POWERCHART Comment: UA pH Reference Range pH: 5.0-8.0 Protein, Ur, Dip Negative Negative POWERCHART Urobilinogen 0.2 0.2 MGDL POWERCHART Comment: Reference Range Urobilinogen: 0.2-1.0 mg/dL HXNITRITE Negative Negative POWERCHART HXBLOOD Negative Negative POWERCHART Leukocyte Esterase Moderate (A) Negative POWERCHA RT Specimen (Source) Anatomical Collection Method Collection Time Re ceived Time Location / / Volume Laterality Urine, First 04/16/2016 9:58 AM Voided CRIMINAL INVESTIGATIVE AGENT Jatinder Camejo M.D. LAB URINE ORDERABLES Performing Organization Address City/State/ZIP Code Phon e Number POWERCHART Bacterial Culture, Aerobic, Urine (04/16/2016 9:58 AM CRIMINAL INVESTIGATIVE AGENT) Patholo gist Method Time Signature Bacterial POWERCHART Culture, Aerobic, Urine HXFinal 2,000 CFU/mL POWERCHART Gram Positive Cocci HXFinal No further POWERCHART studies done. Specimen (Source) Anatomical Collection Method Collection Time Re ceived Time Location / / Volume Laterality Urine, First 04/16/2016 9:58 AM Voided CRIMINAL INVESTIGATIVE AGENT Jatinder Camejo M.D. LAB MICROBIOLOGY - GENERAL O RDERABLES Performing Organization Address City/State/ZIP Code Phon e Number POWERCHART documented in this encounter Visit Diagnoses Not on filedocumented in this encounter Additional Health Concerns Assessment Noted Time PHQ-9 Depression Total Score: 10 03/11/2016 8:34 AM CS T documented as of this encounter
--- OUTSIDE RECORDS SUMMARY | 2022-03-29 07:53 | XMS_ITS | Encounter Summary ---
:1950 Author Organization [facility] Address [address] [place] [address] Care Team Providers Name Role Phone Unavailable Primary Care Provider Unavailable Encounter Details Date Type Department Care Team Description 07/08/2016 Hospital Encounter HX [facility] Riley Sanchez M.D. 1518 [facility], [facility] [address] [place] [phone] Social History Tobacco Use Types Packs/Day [...] week 04/16/2019 How often do you attend taoist or faith services? 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 - 07/14/2016 11:53 AM CDT Results Notification 07/08/2016 Document Contains Addenda Addendum by KHAI MCKENNA LPN on July 18, 2016 13:51:40 CDT Spoke with: ( X ) Patient ( _ ) Parent ( _ ) Spouse ( _ ) Child ( ) Other: _ Call back telephone number: _ Reason for Call: lab results Chief Complaint: Patient informed of message below. _ Patient/Caller response to Education/Information given: ( X ) Verbalizes understanding of instructions ( _ ) Provide intervention per provider instruction ( _ ) Reinforce information already given ( _ ) Reinforce Plan of Care ( _ ) Provide preprinted information by mail (if applicable) Source/Reference used (if applicable): Dr. Sanchez OK to leave message on voice mail? _ OK to send message via patient portal? _ Patient told to expect return call: ( _ ) today ( _ ) tomorrow ( _ ) next work day Callers preferred language for Healthcare discussion: _ Was an basket bottom machine operator used for this call? _ Other ( --_ ) Addendum by KEYUR ALANIZ LPN on July 16, 2016 12:53:06 CDT message left for patient to return call Addendum by PHOENIX LORENZANA on July 16, 2016 12:21:08 CDT pt returned your call plz call again Addendum by KEYUR ALANIZ LPN on July 16, 2016 08:17:50 CDT message left for patient to return call Addendum by KEYUR ALANIZ LPN on July 15, 2016 14:49:06 CDT message left for patient to return call Addendum by ROCHELLE NIX CMA on July 15, 2016 08:27:19 CDT left graceege with patient to call back From: RILEY SANCHEZ MD To: JOSE Sanchez Nurse; Sent: 07/14/2016 11:53:58 CDT ! Show up: 07/14/2016 12:54:00 CDT Subject: Results Notification 07/08/2016 Actions: Notify patient of results, Notify Patient of Future Order Please call him with following messages. Your tests for electrolytes, kidney function, blood counts and inflammation(Sed rate) are OK. You can decrease Prednisone dose to 5 mg daily if you are taking 10 mg daily, currently. Please follow up with us as we discussed during your visit or sooner if you have any concerns. If you have questions orconcerns, please do not hesitate to call our office. Results: Date Result Name Ind Value Ref Range 07/08/2016 09:14 Sodium Lvl 139 mmol/L (135 - 145) 07/08/2016 09:14 Potassium Lvl 4.2 mmol/L (3.6 - 5.2) 07/08/2016 09:14 Chloride 98 mmol/L (98 - 107) 07/08/2016 09:14 CO2 29 mmol/L (22 - 29) 07/08/2016 09:14 AGAP 12 mmol/L (7 - 15) 07/08/2016 09:14 Glucose Lvl 117 mg/dL (70 - 139) 07/08/2016 09:14 Creatinine 0.92 mg/dL (0.80 - 1.30) 07/08/2016 09:14 EGFR (MDRD) >60 mL/min/1.73m2 (>=60 - ) 07/08/2016 09:14 EGFR (MDRD) >60 mL/min/1.73m2 (>=60 - ) 07/08/2016 09:14 BUN 21 mg/dL (8 - 24) 07/08/2016 09:14 Calcium Lvl 10.1 mg/dL (8.8 - 10.3) 07/08/2016 09:14 Hgb 13.7 g/dL (13.5 - 17.5) 07/08/2016 09:14 Hct 40.9 % (38.8 - 50.0) 07/08/2016 09:14 WBC 10.2 x10(9)/L (3.5 - 10.5) 07/08/2016 09:14 RBC 4.73 x10(12)/L (4.32 - 5.72) 07/08/2016 09:14 MCV 86.5 fL (81.0 - 95.0) 07/08/2016 09:14 RDW (H) 16.8 % (11.8 - 15.6) 07/08/2016 09:14 Platelet 311 x10(9)/L (150 - 450) 07/08/2016 09:14 Neutro Absolute 6.38 10(9)/L (1.70 - 7.00) 07/08/2016 09:14 Lymph Absolute 2.23 x10(9)/L (0.90 - 2.90) 07/08/2016 09:14 [place] Absolute (H) 1.13 x10(9)/L (0.30 - 0.90) 07/08/2016 09:14 Eos Absolute 0.47 x10(9)/L (0.05 - 0.50) 07/08/2016 09:14 Baso Absolute 0.04 x10(9)/L (0.00 - 0.30) 07/08/2016 09:14 Sed Rate 22 mm/hr (0 - 22) Source: [facility] POWERCHART Document Id: [id number] Electronically signed by Conversion, [facility] Mattress Renovator [id number] at 10/15/2016 6:09 AM CDT Miscellaneous - Riley Sanchez M.D. - 07/14/2016 11:53 AM CDT Custom Result Letter July 14, 2016 SEVEN SALAZAR [address] [facility] [address] Dear SEVEN SALAZAR, Your tests for electrolytes, kidney function, blood counts and inflammation(Sed rate) are OK. You can decrease Prednisone dose to 5 mg daily if you are taking 10 mg daily, currently. Please follow up with us as we discussed during your visit or sooner if you have any concerns. If you have questions orconcerns, please do not hesitate to call our office. Result Name Current Result Normal Range Sodium Lvl (mmol/L) 139 07/08/2016 135 - 145 Potassium Lvl (mmol/L) 4.2 07/08/2016 3.6 - 5.2 Chloride (mmol/L) 98 07/08/2016 98 - 107 CO2 (mmol/L) 29 07/08/2016 22 - 29 Glucose Lvl (mg/dL) 117 07/08/2016 70 - 139 Creatinine (mg/dL) 0.92 07/08/2016 0.80 - 1.30 EGFR (MDRD) (mL/min/1.73m2) >60 07/08/2016 >=60 - BUN (mg/dL) 21 07/08/2016 8 - 24 Calcium Lvl (mg/dL) 10.1 07/08/2016 8.8 - 10.3 Hgb (g/dL) 13.7 07/08/2016 13.5 - 17.5 Hct (%) 40.9 07/08/2016 38.8 - 50.0 WBC (x10(9)/L) 10.2 07/08/2016 3.5 - 10.5 [id number] (x10(9)/L) 311 07/08/2016 150 - 450 Sed Rate (mm/hr) 22 07/08/2016 0 - 22 Sincerely, RILEY SANCHEZ [address] [place], [place] [id number] Electronic Signature Electronically Signed By: RILEY SANCHEZ MD On: July 14, 2016 This document has images extracted. Source: [facility] POWERCHART Document Id: [id number] documented in this encounter Plan of Treatment Upcoming Encounters Date Type Specialty Care Team Description 04/12/2022 Office Visit Cardiovascular Disease Simone Gooden AP RN, C.N.P. [address] [phone] (Wo rk) documented as of this encounter Procedures Procedure Name Priority Date/Time Associated Comments Diagnosis AUTOMATED Routine 07/08/2016 9:14 AM Results f or this DIFFERENTIAL, B WATER RESOURCES PROGRAM DIRECTOR procedure ar e in the results section. SEDIMENTATION RATE, B Routine 07/08/2016 9:14 AM Results for this WATER RESOURCES PROGRAM DIRECTOR procedure are i n the results section. CBC WITH DIFFERENTIAL, Routine 07/08/2016 9:14 AM Results for this B WATER RESOURCES PROGRAM DIRECTOR procedure are i n the results section. BASIC METABOLIC PANEL, Routine 07/08/2016 9:14 AM Results for this S/P WATER RESOURCES PROGRAM DIRECTOR procedure are i n the results section. documented in this encounter Results (ABNORMAL) Automated Differential (07/08/2016 9:14 AM WATER RESOURCES PROGRAM DIRECTOR) Patholo gist Method Time Signature Absolute 6.38 1.70 - POWERCHART Neutrophils 7.00 109L Lymphocytes 2.23 0.90 - POWERCHART 2.90 X109L Monocytes 1.13 (H) 0.30 - POWERCHART 0.90 X109L Eosinophils 0.47 0.05 - POWERCHART 0.50 X109L Absolute 0.04 0.00 - POWERCHART Basophil 0.30 X109L Specimen Anatomical Collection Method Collection Time Receive d Time (Source) Location / / Volume Laterality Blood 07/08/2016 9:14 AM 7 9:14 WATER RESOURCES PROGRAM DIRECTOR AM WATER RESOURCES PROGRAM DIRECTOR Riley Sanchez M.D. LAB BLOOD ADD-ON Performing Organization Address City/State/[facility] Code Phon e Number POWERCHART (ABNORMAL) CBC with Differential (07/08/2016 9:14 AM WATER RESOURCES PROGRAM DIRECTOR) Analysis Performed At Patho logist Time Signature Leukocytes 10.2 3.5 - 10.5 POWERCHART X109L Erythrocytes 4.73 4.32 - POWERCHART 5.72 [id number] Hemoglobin 13.7 13.5 - POWERCHART 17.5 GDL Hematocrit 40.9 38.8 - POWERCHART 50.0 MCV 86.5 81.0 - POWERCHART 95.0 FL HX RDW 16.8 (H) 11.8 - POWERCHART 15.6 Platelet Count 311 150 - 450 POWERCHART X109L Specimen (Source) Anatomical Collection Method Collection Time Re ceived Time Location / / Volume Laterality Blood 07/08/2016 9:14 AM WATER RESOURCES PROGRAM DIRECTOR Riley Sanchez M.D. LAB BLOOD ADD-ON Performing Organization Address City/State/[facility] Code Phon e Number POWERCHART Sedimentation Rate (07/08/2016 9:14 AM WATER RESOURCES PROGRAM DIRECTOR) Analysis Performed At Patho logist Time Signature Sedimentation 22 0 - 22 POWERCHART Rate, B MMHR Specimen (Source) Anatomical Collection Method Collection Time Re ceived Time Location / / Volume Laterality Blood 07/08/2016 9:14 AM WATER RESOURCES PROGRAM DIRECTOR Riley Sanchez M.D. LAB BLOOD ADD-ON Performing Organization Address City/State/ZIP Code Phon e Number POWERCHART BMP (Basic Metabolic Panel) (07/08/2016 9:14 AM WATER RESOURCES PROGRAM DIRECTOR) P athologist Signature Sodium, S 139 135 - 145 POWERCHART MMOLL Potassium, S 4.2 3.6 - 5.2 POWERCHART MMO[facility] Chloride, S 98 98 - 107 POWERCHART [facility] CO2 Total 29 22 - 29 POWERCHART MMOLL Comment: Reference ranges have not been established for patients that are <12 months of age. BUN (Blood Urea Nitrogen), S 21 8 - 24 MGDL POWERCHART Creatinine 0.92 0.80 - 1.30 MGDL POWERCHART Calcium, Total, S 10.1 8.8 - 10.3 MGDL POWERC ARIZA Anion Gap 12 7 - 15 MMOLL POWERCHART HXeGFR (MDRD) >60 >=60 [id number] POWERCHART eGFR Black/ >60 >=60 [id number] POWERCHART Glucose 117 70 - 139 MGDL POWERCHART Specimen (Source) Anatomical Collection Method Collection Time Re ceived Time Location / / Volume Laterality Blood 07/08/2016 9:14 AM WATER RESOURCES PROGRAM DIRECTOR Riley Sanchez M.D. LAB BLOOD ADD-ON Performing Organization Address City/State/ZIP Code Phon e Number POWERCHART documented in this encounter Visit Diagnoses Not on filedocumented in this encounter Additional Health Concerns Assessment Noted Time PHQ-9 Depression Total Score: 6 06/10/2016 8:13 AM WATER RESOURCES PROGRAM DIRECTOR documented as of this encounter
--- OUTSIDE RECORDS SUMMARY | 2022-03-29 07:53 | XMS_ITS | Encounter Summary ---
:1950 Author Organization [facility] Address [address] [place] [address] Care Team Providers Name Role Phone Unavailable Primary Care Provider Unavailable Encounter Details Date Type Department Care Team Description 04/23/2016 Hospital Encounter HX [facility] Jatinder Camejo M.D. [address] [place] [phone] (Wo rk) Social History Tobacco [...] How often do you attend nondenominational or gnosticism services? Never 04/16/2019 Do you [...] at Date Recorded Male 06/28/2019 8:47 AM OPERATION SHIFT SUPERVISOR documented as of this encounter Last Filed Vital Signs Vital Sign Reading Time Taken Comments Blood Pressure 92/58 04/23/2016 10:39 AM OPERATION SHIFT SUPERVISOR Pulse 80 04/23/2016 10:39 AM OPERATION SHIFT SUPERVISOR Temperature - - Respiratory Rate - - Oxygen Saturation - - Inhaled Oxygen Concentration - - Weight - - Height 173 cm (5' 8.11) 04/23/2016 10:39 AM OPERATION SHIFT SUPERVISOR Body Mass Index - - documented in this encounter Medications at Time of Discharge Medication Sig Dispensed Refills Start Date End Date albuterol sulfate 90 Inhale 2 puffs every 0 03/1104/24/2017 mcg/actuation aerosol 4 (four) hours as powdr breath activated needed. documented as of this encounter Nursing Notes Shellie Irwin L.P.N. - 04/23/2016 10:39 AM CST Nurse Only Documentation Nurse Only Documentation Entered On: 04/23/2016 10:42 OPERATION SHIFT SUPERVISOR Performed On: 04/23/2016 10:39 OPERATION SHIFT SUPERVISOR by SHELLIE IRWIN LPN Nurse Only Documentation Nurse Only Visit Documentation : 6 of 6 BCG with interferon-patient states feels well only symptoms that he is experiencing is tiredness and headaches SHELLIE IRWIN LPN - 04/23/2016 10:39 OPERATION SHIFT SUPERVISOR Vitals/Ht/Wt Temperature Core : 36.4 DegC(Converted to: 97.5 DegF) (LOW) Peripheral Pulse Rate : 80 /min Systolic Blood Pressure : 92 mmHg Diastolic Blood Pressure : 58 mmHg NIBP Mean : 69 mmHg BP Location : Left upper extremity Blood Pressure Cuff Size : Regular Height : 173 cm(Converted to: 5 ft 8 inch(es), 68 inch(es)) SHELLIE IRWIN LPN - 04/23/2016 10:39 OPERATION SHIFT SUPERVISOR Source: [employer] POWERCHART Document Id: [id number] OPERATION SHIFT SUPERVISOR!12 ATION SHIFT SUPERVISOR documented in this encounter Plan of Treatment Upcoming Encounters Date Type Specialty Care Team Description 04/12/2022 Office Visit Cardiovascular Disease Simone Gooden AP RN, C.N.P. [address] [phone] (Wo rk) documented as of this encounter Visit Diagnoses Not on filedocumented in this encounter Additional Health Concerns Assessment Noted Time PHQ-9 Depression Total Score: 10 03/11/2016 8:34 AM CS T documented as of this encounter
--- OUTSIDE RECORDS SUMMARY | 2022-03-29 07:53 | XMS_ITS | Encounter Summary ---
:[address] [facility] Address [address] [place] [address] Care Team Providers Name Role Phone Unavailable Primary Care Provider Unavailable Encounter Details Date Type Department Care Team Description 06/10/2016 Hospital Encounter HX [facility] Riley Jimenez M.D. [address] [facility], [facility] [address] [place] [id number] [phone] Social History Tobacco Use Types Packs/Day [...] How often do you attend mandaen or oriental orthodox services? Never 04/16/2019 Do [...] at Date Recorded Male 06/28/2019 8:47 AM AMBULETTE DRIVER documented as of this encounter Last Filed Vital Signs Vital Sign Reading Time Taken Comments Blood Pressure 134/61 06/10/2016 8:16 AM AMBULETTE DRIVER Pulse 81 06/10/2016 8:10 AM AMBULETTE DRIVER Temperature - - Respiratory Rate 16 06/10/2016 8:10 AM AMBULETTE DRIVER Oxygen Saturation - - Inhaled Oxygen Concentration - - Weight 98.6 kg (217 lb 7.7 oz) 06/10/2016 8:10 AM AMBULETTE DRIVER Height 173 cm (5' 8.11) 06/10/2016 8:16 AM AMBULETTE DRIVER Body Mass Index 32.96 06/10/2016 8:10 AM AMBULETTE DRIVER documented in this encounter Medications at Time [...] encounter Progress Notes Riley Sanchez M.D. - 06/10/2016 7:54 AM CST [id number] CHIEF COMPLAINT/REASON FOR VISIT 1. Followup on chronic medical problems. 2. Discuss test results. HISTORY OF PRESENT ILLNESS Mik is a 66-year-old male who presents to the clinic today for a one month followup from 05/13/2016. He quit taking Citalopram four days ago because he had diarrhea after taking medication. He no longer has diarrhea since stopping medication. At his last visit, we added Nortriptyline 25 mg at bedtime for his depression and anxiety. He denies any side effects like dry mouth or constipation. He mentioned that he still does not fall asleep well at night. His PHQ-9 score is improved from 9 to 6. We discussed increasing Nortriptyline. He has occasional burning sensation with urination. Last episode was about one week ago. He is following with Dr. Jatinder Camejo, Urologist later today for history of carcinoma of the urinary bladder, status post BCG treatment. He denies any gross hematuria. He is still smoking and knows it is a bad habit. He smokes about 5 cigarettes a day. He used to smoke 1 pack per day. He has a slight cough today. He denies any production, shortness of breath, wheezing, chest pain, or chest congestion. We discussed test results from 05/13/2016. Results were remarkable for WBC 16.9, platelets 511, and sedimentation rate 26. In regards to his polymyalgia rheumatica, he feels that his aches and pains are controlled with Prednisone. He is currently on 15 mg daily. He denies any abdominal pain. Of note, he had normal colonoscopy in 2011. I reviewed his CT scan of the chest/abdomen/pelvis from 02/18/2011, which showed 1. Negative CT of the chest. 2. Stable right renal cyst. Otherwise negative CT of the abdomen and pelvis. 3. Not mentioned in the above report is vertebral spondylosis, especially in the lower thoracic spine. I reviewed and updated his medication list. We discussed potential side effects. There are no additional questions, concerns, or complaints. MEDICATIONS Albuterol CFC free 90 mcg/inh 2 puffs every 4 hours as needed. Hydrochlorothiazide 25 mg by mouth daily in the morning. Lisinopril 40 mg by mouth daily in the morning. Melatonin 10 mg by mouth at bedtime. Nortriptyline 50 mg by mouth at bedtime Prednisone 10 mg by mouth daily. ALLERGIES Influenza vaccine. Citalopram causing diarrhea. Pravastatin causing myalgia, arthralgia. Wellbutrin causing suicidal thoughts. SYSTEMS REVIEW Please see HPI for pertinent positives, otherwise rest of ROS negative. PAST MEDICAL/SURGICAL HISTORY Reviewed and updated as per the EHR on 06/10/2016. PREVENTIVE SERVICES Reviewed and updated as per the EHR on 06/10/2016. SOCIAL HISTORY Reviewed and updated as per the EHR on 06/10/2016. FAMILY HISTORY Reviewed and updated as per the EHR on 06/10/2016. VITAL SIGNS HEIGHT: 173 cm. WEIGHT: 98.65 kg. BMI: 32.96 kg/m2. PULSE: 81 /min. RESP: 16 /min. SYSTOLIC: 143 mmHg. DIASTOLIC: 61 mmHg. SR: 134/61 mmHg. PHYSICAL EXAMINATION GENERAL: Patient is sitting. No distress. Able to talk without interruption. HEAD: No facial rash, asymmetry, or sinus tenderness. EYES: PERRLA. EOMI. No pallor, icterus, or conjunctivitis. ENT: No nasal congestion, discharge, or bleeding. There is no ear infection or discharge. No mastoidtenderness. Tongue is moist and midline. No oral lesions. LYMPH NODES: No cervical or supraclavicular lymphadenopathy. HEART: No carotid bruit. No JVD. Regular rhythm. There is no S3, gallop, murmur, or thrill. LUNGS: Normal respiratory effort. Clear to auscultation. Normal percussion. EXTREMITIES: No clubbing, cyanosis, edema, infection, or calf tenderness. MENTAL: Alert and oriented x 3. Normal mood and affect. IMPRESSION/REPORT/PLAN 1. Anxiety and depression with insomnia. It is improved. Today PHQ-9 score is 6. Since he stopped Citalopram, it was decided to increase Nortriptyline to 50 mg daily at bedtime. We discussed potential side effects from medication, including but not limited to, sleepiness and drowsiness. If he is stillunable to sleep, he can take over the counter Melatonin. 2. Polymyalgia rheumatica. It is controlled with Prednisone. We will decrease Prednisone to 10 mg daily. If he notices more aches and pains, he can increase back to 15 mg a day. We need to check sedimentation rate monthly. 3. Leukocytosis. His white blood cell is just above normal. There is no evidence of infection clinically. We will monitor. 4. Medication management issue. He quit taking Citalopram because he was experiencing diarrhea. Citalopram was updated in his allergy list. 5. Discussed test results. I reviewed test results from 05/13/2016. All questions were answered. 6. Renew medications. The following medications were renewed: Hydrochlorothiazide, Lisinopril, Nortriptyline, and Prednisone. Todays studies: CBC and Sedimentation rate. Patient will be notified with results & recommendations. The patient will return to the clinic in 1 month for following tests: BMP, CBC, and Sedimentation rate. The patient will return to the clinic in 2 months for followup with following tests prior to appointment: BMP, CBC, and Sedimentation rate. This document serves as a record of services personally performed by Dr. Riley Sanchez. It was created on their behalf by Juan Ramos, a trained medical office technician. The creation of this record is based on the scribe's personal observations and the provider's statements to them. This document has been checked and approved by the attending provider. Riley Sanchez M.D./arti Electronically Signed By: RILEY SANCHEZ MD On: 06/10/2016 09:28 AM Modified by and Electronically Signed by: RILEY SANCHEZ MD On: 06/10/2016 09:28 AM Source: [facility] MHSDOLBEYNONRADSYS Document Id: [id number] LETTE DRIVER documented in this encounter Miscellaneous Notes Miscellaneous - Riley Sanchez M.D. - 06/10/2016 4:09 PM CST Custom Result Letter June 10, 2016 SEVEN SALAZAR [address] [facility] [address] Dear SEVEN SALAZAR, Your blood counts is OK except for just above normal range WBC(White blood cell), most likely due toPrednisone. Sed rate(Test for inflammation) is slightly high, but stable. Please continue Jxjplriyxy20 mg by mouth daily with food. We will recheck blood tests in 1 months as we discussed. Please follow up with us as we discussed during your visit or sooner if you have any concerns. If you have questions or concerns, please do not hesitate to call our office. Result Name Current Result Normal Range Hgb (g/dL) 13.6 06/10/2016 13.5 - 17.5 Hct (%) 41.7 06/10/2016 38.8 - 50.0 WBC (x10(9)/L) (H) 11.2 06/10/2016 3.5 - 10.5 Platelet (x10(9)/L) 372 06/10/2016 150 - 450 Sed Rate (mm/hr) (H) 25 06/10/2016 0 - 22 Sincerely, RILEY SANCHEZ [address] [place] [address] Electronic Signature Electronically Signed By: RILEY SANCHEZ MD On: June 10, 2016 This document has images extracted. Source: [facility] POWERCHART Document Id: [id number] Electronically signed by Conversion, [facility] Administrative Assistant Office Manager [id number] at 10/14/2016 11:43 PM CDT Miscellaneous - Riley Sanchez M.D. - 06/10/2016 4:09 PM CST Results Notification 06/10/2016 Document Contains Addenda Addendum by JUANY DUNCAN LPN on June 11, 2016 09:58:53 AMBULETTE DRIVER Spoke with: ( x ) Patient ( _ ) Parent ( _ ) Spouse ( _ ) Child ( ) Other: _ Call back telephone number: [phone] Reason for Call: -Test Results Chief Complaint: Patient notified of test results listed below. _ Patient/Caller response to Education/Information given: [...] language for Healthcare discussion: _ Was an net software architect used for this call? _ Other ( --x ) No further action needed. Addendum by JUANY DUNCAN LPN on June 10, 2016 16:20:30 AMBULETTE DRIVER Left message for patient to return my call. From: RILEY SANCHEZ MD To: JOSE Sanchez Nurse; Sent: 06/10/2016 16:09:27 AMBULETTE DRIVER Show up: 06/10/2016 16:07:00 AMBULETTE DRIVER Subject: Results Notification 06/10/2016 Actions: Notify patient of results, Notify Patient of Future Order Please call him with following messages. Your blood counts is OK except for just above normal range WBC(White blood cell), most likely due toPrednisone. Sed rate(Test for inflammation) is slightly high, but stable. Please continue [id number] mg by mouth daily with food. We will recheck blood tests in 1 months as we discussed. Please follow up with us as we discussed during your visit or sooner if you have any concerns. If you have questions or concerns, please do not hesitate to call our office. Results: Date Result Name Ind Value Ref Range 06/10/2016 09:43 Hgb 13.6 g/dL (13.5 - 17.5) 06/10/2016 09:43 Hct 41.7 % (38.8 - 50.0) 06/10/2016 09:43 WBC (H) 11.2 x10(9)/L (3.5 - 10.5) 06/10/2016 09:43 RBC 4.85 x10(12)/L (4.32 - 5.72) 06/10/2016 09:43 MCV 86.0 fL (81.0 - 95.0) 06/10/2016 09:43 RDW (H) 15.8 % (11.8 - 15.6) 06/10/2016 09:43 Platelet 372 x10(9)/L (150 - 450) 06/10/2016 09:43 Neutro Absolute (H) 8.21 10(9)/L (1.70 - 7.00) 06/10/2016 09:43 Lymph Absolute 1.84 x10(9)/L (0.90 - 2.90) 06/10/2016 09:43 Weld Absolute (H) 1.07 x10(9)/L (0.30 - 0.90) 06/10/2016 09:43 Eos Absolute (L) 0.00 x10(9)/L (0.05 - 0.50) 06/10/2016 09:43 Baso Absolute 0.04 x10(9)/L (0.00 - 0.30) 06/10/2016 09:43 Sed Rate (H) 25 mm/hr (0 - 22) Source: [facility] POWERCHART Document Id: [id number] Electronically signed by Rivka [facility] Administrative Assistant Office Manager [id number] at 10/14/2016 11:43 PM CDT Miscellaneous - Riley Sanchez M.D. - 06/10/2016 8:34 AM CST Ambulatory Patient Summary [address] [place], [place] [id number] Visit Information Name: SEVEN SALAZAR [facility] Number: [id number] Current Date: 06/10/2016 08:34:22 Physicians Attending Provider: RILEY SANCHEZ MD Primary [...] Oral, once a day (in the morning) Routed to [address] [address] lisinopril (lisinopril 40 mg oral tablet) 1 Tablet(s), Oral, once a day (in the morning) Routed to [address] [address] melatonin (melatonin 10 mg oral capsule) 1 cap, Oral, once a day (at bedtime) For sleep. New nortriptyline (nortriptyline 25 mg oral capsule) 2 cap, Oral, once a day (at bedtime) Dose increasedon 06/10/2016. / For depression. This is a CHANGE Routed to [address] [address] predniSONE (predniSONE 5 mg oral tablet) 3 Tablet(s), Oral, once a day (in the morning) with food ormilk / For polymyalgia rheumatica. May cut back to 10 mg(2 tablets of 5 mg pill) daily, 06/10/2016. This is a CHANGE Routed to [address] [address] Stop Taking the Following Medications: citalopram (citalopram 20 mg oral tablet) Medication list as of 06-10-16 08:34 Attention: If you have any medications at [...] Electronically Signed By: RILEY SANCHEZ MD Signed On:10-JUN-2016 08:34:18 Your Allergies & Intolerances Substance Reaction Symptoms [...] per Ultrasound 03/17/2015 Active Depression Anxiety Active Your Upcoming Appointments Date Time Location Provider 06/10/2016 08:45 [facility] Urology Jatinder Camejo MD Attention: Contact your local Clinic if [...] if you dont have one. Go to [email or web address] and click on Create Your Account. Then, follow the directions to complete the online form. Youll be asked for your [facility] number which you can find at the top of this document. Your Goals/Additional instructions: Source: [facility] POWERCHART Document Id: [id number] LETTE DRIVER Miscellaneous - Riley Sanchez M.D. - 06/10/2016 8:34 AM CST Ambulatory Discharge Medication List [address] [id number] Visit Information Name: SEVEN SALAZAR [facility] Number: [id number] Current Date: 06/10/2016 08:34:21 Attending Provider: RILEY SANCHEZ MD Primary Care [...] Oral, once a day (in the morning) Routed to [place] [id number] lisinopril (lisinopril 40 mg oral tablet) 1 Tablet(s), Oral, once a day (in the morning) Routed to [place] [id number] melatonin (melatonin 10 mg oral capsule) 1 cap, Oral, once a day (at bedtime) For sleep. New nortriptyline (nortriptyline 25 mg oral capsule) 2 cap, Oral, once a day (at bedtime) Dose increasedon 06/10/2016. / For depression. This [place] [address] predniSONE (predniSONE 5 mg oral tablet) 3 Tablet(s), Oral, once a day (in the morning) with food ormilk / For polymyalgia rheumatica. May cut back to 10 mg(2 tablets of 5 mg pill) daily, 06/10/2016. This is a CHANGE Routed to [address] [address] Stop Taking the Following Medications: citalopram (citalopram 20 mg oral tablet) Medication list as of 06-10-16 08:34 Attention: If you have any medications at [...] Electronically Signed By: RILEY SANCHEZ MD Signed On:10-JUN-2016 08:34:18 Additional Information: Source: [facility] POWERCHART Document Id: [id number] LETTE DRIVER Miscellaneous - Juany Duncan, L.P.N. - 06/10/2016 8:16 AM CST Ambulatory Vitals Height Weight Ambulatory Vitals Height Weight Entered On: 06/10/2016 8:16 AMBULETTE DRIVER Performed On: 06/10/2016 8:16 AMBULETTE DRIVER by JUANY DUNCAN LPN Vitals/Ht/Wt Systolic Blood Pressure : 134 mmHg Diastolic Blood Pressure : 61 mmHg NIBP Mean : 85 mmHg BP Location : Left upper extremity Blood Pressure Cuff Size : Large Height : 173 cm(Converted to: 5 ft 8 inch(es), 68 inch(es)) JUANY DUNCAN LPN - 06/10/2016 8:16 AMBULETTE DRIVER Source: [employer] Document Id: [id number] AMBULETTE DRIVER!8 LETTE DRIVER Miscellaneous - Juany Duncan, L.P.N. - 06/10/2016 8:13 AM CST PHQ-9 PHQ-9 Entered On: 06/10/2016 8:16 AMBULETTE DRIVER Performed On: 06/10/2016 8:13 AMBULETTE DRIVER by JUANY DUNCAN LPN PHQ-9 Little interest or pleasure in doing things : Not at all Feeling down, depressed, or hopeless : Not at all Trouble falling or staying asleep, or sleeping too much : Nearly every day Feeling tired or having little energy : Not at all Poor appetite or overeating : Not at all Feeling bad about yourself or that you are a failure : Nearly every day Trouble concentrating on things : Not at all Moving or speaking slowly; restless or fidgety : Not at all Thoughts that you would be better off /hurting self : Not at all PHQ-9 Calculated Score : 6 Problems make work, home, or dealing with others : Not difficult at all JUANY DUNCAN LPN - 06/10/2016 8:13 AMBULETTE DRIVER Source: [employer] Document Id: [id number] AMBULETTE DRIVER!13 LETTE DRIVER Miscellaneous - Juany Duncan L.P.N. - 06/10/2016 8:10 AM CST Adult County Historian Intake/History Adult County Historian Intake/History Entered On: 06/10/2016 8:12 AMBULETTE DRIVER Performed On: 06/10/2016 8:10 AMBULETTE DRIVER by JUANY DUNCAN LPN Intake Chief Complaint : 1. One Month follow-up from 05/13/2016 Peripheral Pulse Rate : 81 /min Respiratory Rate : 16 /min Systolic Blood Pressure : 143 mmHg (HI) Diastolic Blood Pressure : 61 mmHg NIBP Mean : 88 mmHg BP Location : Left upper extremity Blood Pressure Cuff Size : Large Height : 173 cm(Converted to: 5 ft 8 inch(es), 68 inch(es)) Actual Weight : 98.65 kg(Converted to: 217 lb 8 oz) Weight Source : Standing scale Dosing Weight Clinic : 98.65 kg Clinic BSA : 2.18 Body Mass Index : 32.96 kg/m2 JUANY DUNCAN LPN - 06/10/2016 8:10 AMBULETTE DRIVER General Info Information Given By : Patient Preferred Communication Mode : Verbal, Written Languages : Maltese Is Patient Female and 13-50 no hysterectomy : No JUANY DUNCAN LPN - 06/10/2016 8:10 AMBULETTE DRIVER Subjective Pain Symptoms : No JUANY DUNCAN LPN - 06/10/2016 8:10 AMBULETTE DRIVER Dependent Habits Exposure to Tobacco Smoke : Other: patient had quit but is now smoking some now and then Smoking Status : Current every day smoker Tobacco 2A : Yes Tobacco Use/Currently Using : Yes Tobacco Use/Last 30 Days : Yes Tobacco Use/Last 12 months : Yes Type : Cigarettes: Less than 20 per day Tobacco Use/Advised to Quit : Yes JUANY DUNCAN LPN - 06/10/2016 8:10 AMBULETTE DRIVER Caffeine Use Grid Caffeine Use : Current Type : Coffee, Tea Frequency : Daily Amount : 2 cup coffee/2 tea daily JUANY DUNCAN LPN - 06/10/2016 8:10 AMBULETTE DRIVER Recreational Drug Use Grid Drug Use : None JUANY DUNCAN LPN - 06/10/2016 8:10 AMBULETTE DRIVER [facility] [employer] POWERCHART Document Id: [id number] AMBULETTE DRIVER!41 LETTE DRIVER documented in this encounter Plan of Treatment Upcoming Encounters Date Type Specialty Care Team Description 04/12/2022 Office Visit Cardiovascular Disease Simone Gooden AP RN, C.N.P. [address] [place] [address] [phone] (Wo rk) documented as of this encounter Procedures Procedure Name Priority Date/Time Associated Comments Diagnosis AUTOMATED Routine 06/10/2016 9:43 AM Results f or this DIFFERENTIAL, B AMBULETTE DRIVER procedure ar e in the results section. SEDIMENTATION RATE, B Routine 06/10/2016 9:43 AM Results for this AMBULETTE DRIVER procedure are i n the results section. CBC WITH DIFFERENTIAL, Routine 06/10/2016 9:43 AM Results for this B AMBULETTE DRIVER procedure are i n the results section. documented in this encounter Results (ABNORMAL) Automated Differential (06/10/2016 9:43 AM AMBULETTE DRIVER) [facility] Method Time Signature Absolute 8.21 (H) 1.70 - POWERCHART Neutrophils 7.00 109L Lymphocytes 1.84 0.90 - POWERCHART 2.90 X109L Monocytes 1.07 (H) 0.30 - POWERCHART 0.90 X109L Eosinophils 0.00 (L) 0.05 - POWERCHART 0.50 X109L Absolute 0.04 0.00 - POWERCHART Basophil 0.30 X109L Specimen Anatomical Collection Method Collection Time Receive d Time (Source) Location / / Volume Laterality Blood 06/10/2016 9:43 AM 7 9:43 AMBULETTE DRIVER AM AMBULETTE DRIVER Riley Sanchez M.D. LAB BLOOD ADD-ON Performing Organization Address City/State/ZIP Code Phon e Number POWERCHART (ABNORMAL) Sedimentation Rate (06/10/2016 9:43 AM AMBULETTE DRIVER) [facility] [place] Method Time Signature Sedimentation 25 (H) 0 - 22 POWERCHART Rate, B MMHR Specimen (Source) Anatomical Collection Method Collection Time Re ceived Time Location / / Volume Laterality Blood 06/10/2016 9:43 AM AMBULETTE DRIVER Riley Sanchez M.D. LAB BLOOD ADD-ON Performing Organization Address City/State/ZIP Code Phon e Number POWERCHART (ABNORMAL) CBC with Differential (06/10/2016 9:43 AM AMBULETTE DRIVER) Analysis Performed At Patho logist Time Signature Leukocytes 11.2 (H) 3.5 - 10.5 POWERCHART X109L Erythrocytes 4.85 4.32 - POWERCHART 5.72 [id number] Hemoglobin 13.6 13.5 - POWERCHART 17.5 GDL Hematocrit 41.7 38.8 - POWERCHART 50.0 MCV 86.0 81.0 - POWERCHART 95.0 FL HX RDW 15.8 (H) 11.8 - POWERCHART 15.6 Platelet Count 372 150 - 450 POWERCHART X109L Specimen (Source) Anatomical Collection Method Collection Time Re ceived Time Location / / Volume Laterality Blood 06/10/2016 9:43 AM AMBULETTE DRIVER Riley Sanchez M.D. LAB BLOOD ADD-ON Performing Organization Address City/[facility] Code Phon e Number POWERCHART documented in this encounter Visit Diagnoses Not on filedocumented in this encounter Additional Health Concerns Assessment Noted Time PHQ-9 Depression Total Score: 6 06/10/2016 8:13 AM AMBULETTE DRIVER documented as of this encounter
--- OUTSIDE RECORDS SUMMARY | 2022-03-29 07:53 | XMS_ITS | Encounter Summary ---
:1950 Author Organization [facility] Address [address] [place] [address] Care Team Providers Name Role Phone Unavailable Primary Care Provider Unavailable Encounter Details Date Type Department Care Team Description 04/02/2016 Hospital Encounter HX [facility] Tarik Camejo M.D. [address] [place], [place] [phone] (Wo rk) Social History [...] How often do you attend buddhism or confucianist services? Never 04/16/2019 Do you [...] Date Recorded Male 06/28/2019 8:47 AM AIR LIAISON AND SPECIAL STAFF documented as of this encounter Last Filed Vital Signs Vital Sign Reading Time Taken Comments Blood Pressure - - Pulse - - Temperature - - Respiratory Rate - - Oxygen Saturation - - Inhaled Oxygen Concentration - - Weight - - Height 173 cm (5' 8.11) 04/02/2016 9:38 AM AIR LIAISON AND SPECIAL STAFF Body Mass Index - - documented in this encounter Medications at Time of Discharge Medication Sig Dispensed Refills Start Date End Date albuterol sulfate 90 Inhale 2 puffs every 0 03/1104/24/2017 mcg/actuation aerosol 4 (four) hours as powdr breath activated needed. documented as of this encounter Miscellaneous Notes Miscellaneous - Kyaw Crawford APRN, R.N. - 04/03/2016 8:37 AM AIR LIAISON AND SPECIAL STAFF Results Notification Document Contains Addenda Addendum by ADILSON IRWIN LPN on April 04, 2016 16:56:16 AIR LIAISON AND SPECIAL STAFF Left second message for patient to return call to clinic. Patient was sent out a normal results letter. Addendum by ADILSON IRWIN LPN on April 03, 2016 10:01:00 AIR LIAISON AND SPECIAL STAFF Left message for patient to return call to clinic. From: KYAW CRAWFORD APRN, RN To: Urology Nurse; Sent: 04/03/2016 08:37:10 AIR LIAISON AND SPECIAL STAFF ! Show up: 04/03/2016 08:37:10 AIR LIAISON AND SPECIAL STAFF Subject: Results Notification Actions: Notify patient of results Reminder Comments: uc ok Results: Date Result Type Ind Result Name MBO Review Culture Urine Source: [facility] [place] Document Id: [id number] Electronically signed by Conversion, [facility] Safety Instructor [id number] at 09/28/2016 11:11 PM CDT documented in this encounter Plan of Treatment Upcoming Encounters Date Type Specialty Care Team Description 04/12/2022 Office Visit Cardiovascular Disease Simone Gooden AP RN, C.N.P. [address] [phone] (Wo rk) documented as of this encounter Procedures Procedure Name Priority Date/Time Associated Comments Diagnosis URINALYSIS WITH Routine 04/02/2016 9:39 AM Result s for this MICROSCOPIC AIR LIAISON AND SPECIAL STAFF procedure are i n the results section. BACTERIAL CULTURE, Routine 04/02/2016 9:39 AM Res ults for this AEROBIC, URINE AIR LIAISON AND SPECIAL STAFF procedure are in the results section. documented in this encounter Results (ABNORMAL) Urinalysis, Complete, Includes Microscopic (04/02/2016 9:39 AM AIR LIAISON AND SPECIAL STAFF) [facility] Method Time Signature HXUR WBC. 21-30 (A) None Seen POWERCHART HPF HXUR RBC. Occ-2 None Seen POWERCHART HPF Casts, Hyaline 1-3 (A) None Seen POWERCHART LPF Squamous Occ-3 (A) None Seen POWERCHART Epithelial HPF HXUr Color Yellow Yellow POWERCHART Clarity Clear Clear POWERCHART Glucose Negative Negative POWERCHART HXBILIRUBIN Negative Negative POWERCHART Ketones, QL(U) Negative Negative POWERCHART Specific 1.014 1.001 - POWERCHART [place], POCT, 1.035 U Comment: Reference Range Specific [place]: 1.000-1.035 pH, POCT, Urine 6.0 POWERCHART Comment: UA pH Reference Range pH: 5.0-8.0 Protein, Ur, Dip Negative Negative POWERCHART Urobilinogen 0.2 0.2 MGDL POWERCHART Comment: Reference Range Urobilinogen: 0.2-1.0 mg/dL HXNITRITE Negative Negative POWERCHART HXBLOOD Negative Negative POWERCHART Leukocyte Esterase Moderate (A) Negative POWERCHA RT Specimen (Source) Anatomical Collection Method Collection Time Re ceived Time Location / / Volume Laterality Urine, First 04/02/2016 9:39 AM Voided AIR LIAISON AND SPECIAL STAFF Jatinder Camejo M.D. LAB URINE ORDERABLES Performing Organization Address City/State/ZIP Code Phon e Number POWERCHART Bacterial Culture, Aerobic, Urine (04/02/2016 9:39 AM AIR LIAISON AND SPECIAL STAFF) [facility] gist Method Time Signature Bacterial POWERCHART Culture, Aerobic, Urine HXFinal Mixed magaly. No POWERCHART further studies unless notified. HXFinal Leroy POWERCHART Microbiology laboratory [phone]. Specimen (Source) Anatomical Collection Method Collection Time Re ceived Time Location / / Volume Laterality Urine, First 04/02/2016 9:39 AM Voided AIR LIAISON AND SPECIAL STAFF Jatinder Camejo M.D. LAB MICROBIOLOGY - GENERAL O RDERABLES Performing Organization Address City/State/ZIP Code Phon e Number POWERCHART documented in this encounter Visit Diagnoses Not on filedocumented in this encounter Additional Health Concerns Assessment Noted Time PHQ-9 Depression Total Score: 10 03/11/2016 8:34 AM CS T documented as of this encounter
--- OUTSIDE RECORDS SUMMARY | 2022-03-29 07:53 | XMS_ITS | Encounter Summary ---
:1950 Author Organization [facility] Address [address] [place] [address] Care Team Providers Name Role Phone Unavailable Primary Care Provider Unavailable Encounter Details Date Type Department Care Team Description 04/02/2016 Hospital Encounter HX NO MAPPING Darlene Camejo M.D. [address] [place], [place] [phone] (Wo rk) Social History [...] How often do you attend jew or spiritism services? Never 04/16/2019 Do you [...] at Date Recorded Male 06/28/2019 8:47 AM PARENT TRAINER documented as of this encounter Medications at Time of Discharge Medication Sig Dispensed Refills Start Date End Date albuterol sulfate 90 Inhale 2 puffs every 0 03/1104/24/2017 mcg/actuation aerosol 4 (four) hours as powdr breath activated needed. documented as of this encounter Miscellaneous Notes Miscellaneous - Conversion, Historical Provider Ser - 04/02/2016 11:59 PM PARENT TRAINER Coding Summary-Paper Based CODING DATE: 04/11/[address] [facility] STATUS: * Discharged to Home or Self Care PAYOR: Medicare ADMIT DX: REASON FOR VISIT DX: FINAL DX: PRINCIPAL: C67.9 Malignant neoplasm of bladder, unspecified SECONDARY: PROCEDURES DOCTOR NAME DATE NOTE: The code number assigned matches the documented diagnosis and / or procedure in the patient's chart. However, the narrative phrase printed from the coding software may appear abbreviated, or result in slightly different terminology. Coded By: MARGE BROWNING Date Saved: 04/11/2016 10:36 am Source: [employer] Document Id: [id number] documented in this encounter Plan of Treatment Upcoming Encounters Date Type Specialty Care Team Description 04/12/2022 Office Visit Cardiovascular Disease Simone Gooden AP RN, C.N.P. [address] [phone] (Wo rk) documented as of this encounter Visit Diagnoses Not on filedocumented in this encounter Additional Health Concerns Assessment Noted Time PHQ-9 Depression Total Score: 10 03/11/2016 8:34 AM CS T documented as of this encounter
--- OUTSIDE RECORDS SUMMARY | 2022-03-29 07:53 | XMS_ITS | Encounter Summary ---
:1950 Author Organization [facility] Address [address] [place] [address] Care Team Providers Name Role Phone Unavailable Primary Care Provider Unavailable Encounter Details Date Type Department Care Team Description 03/26/2016 Hospital Encounter HX [facility] Tarik Camejo M.D. [address] [place], [place] [phone] (Wo rk) Social History [...] How often do you attend methodist or jehovah's witness services? Never 04/16/2019 Do [...] Date Recorded Male 06/28/2019 8:47 AM SENIOR SALES REPRESENTATIVE documented as of this encounter Last Filed Vital Signs Vital Sign Reading Time Taken Comments Blood Pressure - - Pulse - - Temperature - - Respiratory Rate - - Oxygen Saturation - - Inhaled Oxygen Concentration - - Weight - - Height 173 cm (5' 8.11) 03/26/2016 9:54 AM SENIOR SALES REPRESENTATIVE Body Mass Index - - documented in this encounter Medications at Time of Discharge Medication Sig Dispensed Refills Start Date End Date albuterol sulfate 90 Inhale 2 puffs every 0 03/1104/24/2017 mcg/actuation aerosol 4 (four) hours as powdr breath activated needed. documented as of this encounter Miscellaneous Notes Miscellaneous - Tamika Camejo M.D. - 03/27/2016 11:09 AM CST Results Notification Document Contains Addenda Addendum by ADILSON IRWIN LPN on March 29, 2016 08:42:09 SENIOR SALES REPRESENTATIVE Patient was mailed out normal results. Addendum by ADILSON IRWIN LPN on March 27, 2016 11:46:07 SENIOR SALES REPRESENTATIVE Left message for patient to return call to clinic. From: TAMIKA CAMEJO MD To: Urology Nurse; Sent: 03/27/2016 11:09:29 SENIOR SALES REPRESENTATIVE ! Show up: 03/27/2016 11:09:29 SENIOR SALES REPRESENTATIVE Subject: Results Notification Actions: Notify patient of results Reminder Comments: uc neg Results: Date Result Type Ind Result Name MBO Review Culture Urine Source: [facility] [place] Document Id: [id number] Electronically signed by Rivka [facility] Electronic Bench Technician [id number] at 09/28/2016 11:11 PM CDT documented in this encounter Plan of Treatment Upcoming Encounters Date Type Specialty Care Team Description 04/12/2022 Office Visit Cardiovascular Disease Simone Gooden AP RN, C.N.P. [address] [phone] (Wo rk) documented as of this encounter Procedures Procedure Name Priority Date/Time Associated Comments Diagnosis URINALYSIS WITH Routine 03/26/2016 10:00 Results for this MICROSCOPIC AM SENIOR SALES REPRESENTATIVE procedure are i n the results section. BACTERIAL CULTURE, Routine 03/26/2016 10:00 Resul ts for this AEROBIC, URINE AM SENIOR SALES REPRESENTATIVE procedure are in the results section. documented in this encounter Results (ABNORMAL) Urinalysis, Complete, Includes Microscopic (03/26/2016 10:00 AM SENIOR SALES REPRESENTATIVE) [facility] Method Time Signature HXUR WBC. 4-10 (A) None Seen POWERCHART HPF HXUR RBC. Occ-2 None Seen POWERCHART HPF Casts, Hyaline 1-3 (A) None Seen POWERCHART LPF Squamous Occ-3 (A) None Seen POWERCHART Epithelial HPF HXUr Color Yellow Yellow POWERCHART Clarity Clear Clear POWERCHART Glucose Negative Negative POWERCHART HXBILIRUBIN Negative Negative POWERCHART Ketones, QL(U) Negative Negative POWERCHART Specific 1.011 1.001 - POWERCHART [place], POCT, 1.035 U Comment: Reference Range Specific [place]: 1.000-1.035 pH, POCT, Urine 5.0 POWERCHART Comment: UA pH Reference Range pH: 5.0-8.0 Protein, Ur, Dip Negative Negative POWERCHART Urobilinogen 0.2 0.2 MGDL POWERCHART Comment: Reference Range Urobilinogen: 0.2-1.0 mg/dL HXNITRITE Negative Negative POWERCHART HXBLOOD Trace (A) Negative POWERCHART Leukocyte Esterase Small (A) Negative POWERCHART Specimen (Source) Anatomical Collection Method Collection Time Re ceived Time Location / / Volume Laterality Urine, First 03/26/2016 10:00 Voided AM SENIOR SALES REPRESENTATIVE Tamika Camejo M.D. LAB URINE ORDERABLES Performing Organization Address City/State/ZIP Code Phon e Number POWERCHART Bacterial Culture, Aerobic, Urine (03/26/2016 10:00 AM SENIOR SALES REPRESENTATIVE) Analysis Performed At Patho logist Time Signature Bacterial POWERCHART Culture, Aerobic, Urine HXFinal No growth POWERCHART Specimen (Source) Anatomical Collection Method Collection Time Re ceived Time Location / / Volume Laterality Urine, First 03/26/2016 10:00 Voided AM SENIOR SALES REPRESENTATIVE Tamika Camejo M.D. LAB MICROBIOLOGY - GENERAL O RDERABLES Performing Organization Address City/State/ZIP Code Phon e Number POWERCHART documented in this encounter Visit Diagnoses Not on filedocumented in this encounter Additional Health Concerns Assessment Noted Time PHQ-9 Depression Total Score: 10 03/11/2016 8:34 AM CS T documented as of this encounter
--- OUTSIDE RECORDS SUMMARY | 2022-03-29 07:53 | XMS_ITS | Encounter Summary ---
:1950 Author Organization [facility] Address [address] [place] [address] Care Team Providers Name Role Phone Unavailable Primary Care Provider Unavailable Encounter Details Date Type Department Care Team Description 03/25/2016 Hospital Encounter HX [facility] Riley Jimenez M.D. [address] [facility], [facility] [address] [phone] Social History Tobacco Use Types Packs/Day [...] How often do you attend anabaptist or buddhist services? Never 04/16/2019 Do you [...] at Date Recorded Male 06/28/2019 8:47 AM ASSOCIATE PROGRAMMER ANALYST documented as of this encounter Last Filed Vital Signs Vital Sign Reading Time Taken Comments Blood Pressure 110/60 03/25/2016 2:04 PM ASSOCIATE PROGRAMMER ANALYST Pulse 65 03/25/2016 1:47 PM ASSOCIATE PROGRAMMER ANALYST Temperature - - Respiratory Rate 24 03/25/2016 1:47 PM ASSOCIATE PROGRAMMER ANALYST Oxygen Saturation - - Inhaled Oxygen Concentration - - Weight 95.3 kg (210 lb 1.6 oz) 03/25/2016 1:47 PM ASSOCIATE PROGRAMMER ANALYST Height 173 cm (5' 8.11) 03/25/2016 2:04 PM ASSOCIATE PROGRAMMER ANALYST Body Mass Index 31.84 03/25/2016 1:47 PM ASSOCIATE PROGRAMMER ANALYST documented in this encounter Medications at Time of Discharge Medication Sig Dispensed Refills Start Date End Date albuterol sulfate 90 Inhale 2 puffs every 0 03/1104/24/2017 mcg/actuation aerosol 4 (four) hours as powdr breath activated needed. documented as of this encounter Progress Notes Riley Sanchez M.D. - 03/25/2016 1:40 PM CST [id number] CHIEF COMPLAINT/REASON FOR VISIT Followup on chronic medical problems. HISTORY OF PRESENT ILLNESS Mik is a 66-year-old male who presents to the clinic today for a two week followup from 03/11/2016. At his last visit, we started Citalopram 20 mg daily for anxiety and depression. He has noticed minorimprovement. He had some stomach upset initially after taking medication. He received BCG and interferon treatment on 03/19/2016 for bladder cancer. He had a headache the twodays after therapy and then resolved. He denies any hematuria. He has had 5 cigarettes over the past week. He has noticed improvement in his breathing already. Hisblood pressure is lower normal range. He denies any dizziness or lightheadedness. I reviewed his medication list. We discussed potential side effects. There are no additional questions, concerns, or complaints. MEDICATIONS Albuterol CFC free 90 mcg/inh 2 puffs every 4 hours as needed. BCG 81 mg intravesical. Citalopram 20 mg by mouth daily in the morning. Hydrochlorothiazide 25 mg by mouth daily in the morning. Interferon 50 intl. units. Lisinopril 40 mg by mouth daily in the morning. ALLERGIES Influenza vaccine. Pravastatin causing myalgia, arthralgia. Wellbutrin causing suicidal thoughts. SYSTEMS REVIEW Please see HPI for pertinent positives, otherwise rest of ROS negative. PAST MEDICAL/SURGICAL HISTORY Reviewed and updated as per the EHR on 03/25/2016. PREVENTIVE SERVICES Reviewed and updated as per the EHR on 03/25/2016. SOCIAL HISTORY Reviewed and updated as per the EHR on 03/25/2016. FAMILY HISTORY Reviewed and updated as per the EHR on 03/25/2016. VITAL SIGNS HEIGHT: 173 cm. WEIGHT: 95.3 kg. BMI: 31.84 kg/m2. TEMP: 36.4 Deg C. PULSE: 65 /min. RESP: 24 /min. SYSTOLIC: 106 mmHg. DIASTOLIC: 51 mmHg. SR: 110/60 mmHg. PHYSICAL EXAMINATION GENERAL: Patient is sitting. No distress. Able to talk without interruption. IMPRESSION/REPORT/PLAN 1. Carcinoma of the urinary bladder, grade 1 of 3. He had BCG with interferon treatment on 03/19/2016. He will follow with Dr. Camejo. 2. Anxiety with depression. He will continue Citalopram 20 mg daily. There were no side effects frommedication. If needed, we can increase medication dose. 3. Benign essential hypertension. Blood pressure is controlled. He is stable from a cardiac standpoint. Need to continue sodium controlled diet and current medication. Blood pressure goal is less than 140/90 mmHg. Need to continue cardiovascular risk factors modification. 4. Tobacco abuse. He smoked 5 cigarettes over the last 7 days. I recommended complete smoking cessation. He will try to quit smoking. We discussed complications. The patient will return to the clinic in 1 month for followup. This document serves as a record of services personally performed by Dr. Riley Sanchez. It was created on their behalf by Juan Ramos, a trained bacteriologist medical. The creation of this record is based on the scribe's personal observations and the provider's statements to them. This document has been checked and approved by the attending provider. Riley Sanchez M.D./arti Electronically Signed By: RILEY SANCHEZ MD On: 03/31/2016 08:17 PM Modified by and Electronically Signed by: RILEY SANCHEZ MD On: 03/31/2016 08:16 PM Source: [facility] MHSDOLBEYNONRADSYS Document Id: [id number] CIATE PROGRAMMER ANALYST documented in this encounter Miscellaneous Notes Miscellaneous - Riley Sanchez M.D. - 03/25/2016 2:04 PM CST Ambulatory Patient Summary [address] [id number] Visit Information Name: SEVEN SALAZAR [facility] Number: [id number] Current Date: 03/25/2016 14:04:45 Physicians Attending Provider: RILEY SANCHEZ MD Primary Care Provider: RILEY SANCHEZ MD SEVEN SALAZARY has been given the following list of [...] breath / Wheezing use with spacer chamber citalopram (citalopram 20 mg oral tablet) 1 Tablet(s), Oral, once a day (in the morning) $10.00 for 90 days. This is a CHANGE hydrochlorothiazide (hydrochlorothiazide 25 mg oral tablet) 1 Tablet(s), Oral, once a day (in the morning) lisinopril (lisinopril 40 mg oral tablet) 1 Tablet(s), Oral, once a day (in the morning) Stop Taking the Following Medications: Medication list as of 03-25-16 14:04 Attention: If you have any medications at [...] Electronically Signed By: RILEY SANCHEZ MD Signed On:25-MAR-2016 14:04:37 Your Allergies & Intolerances Substance Reaction Symptoms Category Comments pravastatin Myalgia Drug pravastatin Arthralgia Drug Wellbutrin Suicidal thoughts Drug Influenza Virus [...] Your Upcoming Appointments Date Time Location Provider 03/26/2016 09:30 [facility] Lab [facility] 03/26/2016 10:00 [facility] Urology [facility] Urology Nurse 1 04/02/2016 09:30 [facility] Lab [facility] 04/02/2016 10:00 [facility] Urology [facility] Urology Nurse 1 04/09/2016 09:30 [facility] Lab [facility] Lab 04/09/2016 10:00 [facility] Urology [facility] Urology Nurse 1 04/16/2016 09:30 OW[facility] Lab [facility] Lab 04/16/2016 10:00 OW[facility] Urology [facility] Urology Nurse 1 04/23/2016 09:30 [facility] Lab [facility] Lab 04/23/2016 10:[address] [facility] Urology Nurse 1 Attention: Contact your local Clinic if further [...] if you dont have one. Go to [email or web address] and click on Create Your Account. Then, follow the directions to complete the online form. Youll be asked for your [facility] number which you can find at the top of this document. Your Goals/Additional instructions: Source: [facility] POWERCHART Document Id: [id number] CIATE PROGRAMMER ANALYST Miscellaneous - Riley Sanchez M.D. - 03/25/2016 2:04 PM CST Ambulatory Discharge Medication List [address] [id number] Visit Information Name: SEVEN SALAZAR [facility] Number: [id number] Current Date: 03/25/2016 14:04:44 Attending Provider: RILEY SANCHEZ MD Primary Care [...] breath / Wheezing use with spacer chamber citalopram (citalopram 20 mg oral tablet) 1 Tablet(s), Oral, once a day (in the morning) $10.00 for 90 days. This is a CHANGE hydrochlorothiazide (hydrochlorothiazide 25 mg oral tablet) 1 Tablet(s), Oral, once a day (in the morning) lisinopril (lisinopril 40 mg oral tablet) 1 Tablet(s), Oral, once a day (in the morning) Stop Taking the Following Medications: Medication list as of 03-25-16 14:04 Attention: If you have any medications at [...] Electronically Signed By: RILEY SANCHEZ MD Signed On:25-MAR-2016 14:04:37 Additional Information: Source: [facility] [employer] Document Id: [id number] CIATE PROGRAMMER ANALYST Jodicelljen - Riley Sanchez M.D. - 03/25/2016 2:04 PM CST Ambulatory Vitals Height Weight Ambulatory Vitals Height Weight Entered On: 03/25/2016 14:04 ASSOCIATE PROGRAMMER ANALYST Performed On: 03/25/2016 14:04 ASSOCIATE PROGRAMMER ANALYST by RILEY SANCHEZ MD Vitals/Ht/Wt Systolic Blood Pressure : 110 mmHg Diastolic Blood Pressure : 60 mmHg NIBP Mean : 77 mmHg BP Location : Left upper extremity Blood Pressure Cuff Size : Large Height : 173 cm(Converted to: 5 ft 8 inch(es), 68 inch(es)) RILEY SANCHEZ MD - 03/25/2016 14:04 ASSOCIATE PROGRAMMER ANALYST Source: [facility] [employer] Document Id: [id number] ASSOCIATE PROGRAMMER ANALYST!8 CIATE PROGRAMMER ANALYST Jodicelljen - Micheline Mart C.M.ABhavesh - 03/25/2016 1:47 PM CST Adult Karate Black Belt Intake/History Adult Karate Black Belt Intake/History Entered On: 03/25/2016 13:51 ASSOCIATE PROGRAMMER ANALYST Performed On: 03/25/2016 13:47 ASSOCIATE PROGRAMMER ANALYST by MICHELINE MART [facility] Intake Chief Complaint : 1: two week follow up from 03/11/16 follow up chronic medical problems Temperature Core : 36.4 DegC(Converted to: 97.5 DegF) (LOW) Peripheral Pulse Rate : 65 /min Respiratory Rate : 24 /min (HI) Systolic Blood Pressure : 106 mmHg Diastolic Blood Pressure : 51 mmHg NIBP Mean : 69 mmHg BP Location : Left upper extremity Blood Pressure Cuff Size : Large Height : 173 cm(Converted to: 5 ft 8 inch(es), 68 inch(es)) Actual Weight : 95.3 kg(Converted to: 210 lb 2 oz) Weight Source : Standing scale Dosing Weight Clinic : 95.3 kg Prosthetic device on during patient weight : No Clinic BSA : 2.14 Body Mass Index : 31.84 kg/m2 MICHELINE MART [facility] - 03/25/2016 13:47 ASSOCIATE PROGRAMMER ANALYST General Info Information Given By : Patient Languages : Austrian Is Patient Female and 13-50 no hysterectomy : No MICHELINE MART [facility] - 03/25/2016 13:47 ASSOCIATE PROGRAMMER ANALYST Subjective Pain Symptoms : No MICHELINE MART [facility] - 03/25/2016 13:47 ASSOCIATE PROGRAMMER ANALYST Dependent Habits Exposure to Tobacco Smoke : Other: patient had quit but is now smoking some now and then Smoking Status : Current every day smoker Tobacco 2A : Yes Tobacco Use/Currently Using : Yes Tobacco Use/Last 30 Days : Yes Tobacco Use/Last 12 months : Yes Type : Cigarettes: Less than 20 per day Tobacco Use/Advised to Quit : Yes MICHELINE MART [facility] - 03/25/2016 13:47 ASSOCIATE PROGRAMMER ANALYST Caffeine Use Grid Caffeine Use : Current Type : Coffee, Tea Frequency : Daily Amount : 2 cup coffee/2 tea daily MICHELINE MART [facility] - 03/25/2016 13:47 ASSOCIATE PROGRAMMER ANALYST Recreational Drug Use Grid Drug Use : None MICHELINE M[facility] - 03/25/2016 13:47 ASSOCIATE PROGRAMMER ANALYST Source: [facility] POWERCHART Document Id: [id number] ASSOCIATE PROGRAMMER ANALYST!42 CIATE PROGRAMMER ANALYST documented in this encounter Plan of Treatment Upcoming Encounters Date Type Specialty Care Team Description 04/12/2022 Office Visit Cardiovascular Disease Simone Gooden, KELLY RN, C.N.P. [address] [phone] (Wo rk) documented as of this encounter Visit Diagnoses Not on filedocumented in this encounter Additional Health Concerns Assessment Noted Time PHQ-9 Depression Total Score: 10 03/11/2016 8:34 AM CS T documented as of this encounter
--- OUTSIDE RECORDS SUMMARY | 2022-03-29 07:53 | XMS_ITS | Encounter Summary ---
:1950 Author Organization [facility] Address [address] [place] [address] Care Team Providers Name Role Phone Unavailable Primary Care Provider Unavailable Encounter Details Date Type Department Care Team Description 03/26/2016 Hospital Encounter HX NO MAPPING Darlene Camejo M.D. [address] [place], [place] [phone] (Wo rk) Social History [...] How often do you attend rastafari or uatsdin services? 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 documented as of this encounter Miscellaneous Notes Miscellaneous - Conversion, Historical Provider Ser - 03/26/2016 11:59 PM AUTOMATION DEVELOPER Coding Summary-Paper Based CODING DATE: 04/05/2016 FINAL [facility] STATUS: * Discharged to Home or Self [...] terminology. Coded By: MARGE BROWNING Date Saved: 04/05/2016 07:59 am Source: [employer]iga[employer] Document Id: [id number] documented in this encounter Plan of Treatment Upcoming Encounters Date Type Specialty Care Team Description 04/12/2022 Office Visit Cardiovascular Disease Simone Gooden AP RN, C.N.P. [address] [phone] (Wo rk) documented as of this encounter Visit Diagnoses Not on filedocumented in this encounter Additional Health Concerns Assessment Noted Time PHQ-9 Depression Total Score: 10 03/11/2016 8:34 AM CS T documented as of this encounter
--- OUTSIDE RECORDS SUMMARY | 2022-03-29 07:53 | XMS_ITS | Encounter Summary ---
:1950 Author Organization [facility] Address [address] [place] [address] Care Team Providers Name Role Phone Unavailable Primary Care Provider Unavailable Encounter Details Date Type Department Care Team Description 06/10/2016 Hospital Encounter HX NO MAPPING Darlene Camejo M.D. [address] [place], [place] [phone] (Wo rk) Social History [...] How often do you attend episcopalian or muslim services? 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 [address] [phone] (Wo rk) documented as of this encounter Visit Diagnoses Not on filedocumented in this encounter Additional Health Concerns Assessment Noted Time PHQ-9 Depression Total Score: 6 06/10/2016 8:13 AM DIRECTOR OF INSTITUTIONAL RESEARCH documented as of this encounter
--- OUTSIDE RECORDS SUMMARY | 2022-03-29 07:53 | XMS_ITS | Encounter Summary ---
:1950 Author Organization [facility] Address [address] [place] [address] Care Team Providers Name Role Phone Unavailable Primary Care Provider Unavailable Encounter Details Date Type Department Care Team Description 06/10/2016 Hospital Encounter HX [facility] Tamika Camejo M.D. [address] [place] [phone] (Wo rk) Social History Tobacco [...] How often do you attend mandaen or baptist services? Never 04/16/2019 Do you [...] at Date Recorded Male 06/28/2019 8:47 AM BENEFITS ADVISOR documented as of this encounter Last Filed Vital Signs Vital Sign Reading Time Taken Comments Blood Pressure 136/74 06/10/2016 9:01 AM BENEFITS ADVISOR Pulse 80 06/10/2016 9:01 AM BENEFITS ADVISOR Temperature - - Respiratory Rate - - Oxygen Saturation - - Inhaled Oxygen Concentration - - Weight - - Height 173 cm (5' 8.11) 06/10/2016 9:01 AM BENEFITS ADVISOR Body Mass Index - - documented in [...] as of this encounter Procedure Notes Tamika Camjeo M.D. - 06/10/2016 9:31 AM CST CYSTO CHIEF COMPLAINT / REASON FOR VISIT [...] urethral stricture. He is currently taking Prednisone 15 mg daily. INSTRUMENT Flexible cystoscope. ANESTHESIA 2% [...] foreign bodies. Mild scattered inflammation, most notably on the posterior wall. COMMENTS The procedure was well tolerated by [...] Electronically Signed By: TAMIKA CAMEJO MD On: 06/10/2016 09:37 AM Source: [facility] POWERCHART Document Id: [id number] FITS ADVISOR documented in this encounter Miscellaneous Notes Miscellaneous - Kyaw Crawford APRN, R.N. - 06/13/2016 4:36 PM BENEFITS ADVISOR Results Notification Document Contains Addenda Addendum by PRUDENCIO LOVE LPN on June 13, 2016 17:21:12 BENEFITS ADVISOR Notified. From: KYAW CRAWFORD APRN, RN To: Urology Nurse; Sent: 06/13/2016 16:36:19 BENEFITS ADVISOR ! Show up: 06/13/2016 16:36:19 BENEFITS ADVISOR Subject: Results Notification Actions: Notify patient of results Reminder Comments: fish negative Results: Date Result Name Value 06/10/2016 09:00 FUROC Result Sum-Mas Negative 06/10/2016 09:00 FUROC Result-Mas See Comment 06/10/2016 09:00 FUROC Interp-Mas See Comment 06/10/2016 09:00 FUROC Reason for Ref-Philippi See Comment 06/10/2016 09:00 FUROC Spec-Mas Varies 06/10/2016 09:00 FUROC Source-Mas Urine, NOS 06/10/2016 09:00 FUROC Released By-Philippi SHANNAN PONCE [facility] Document Id: [id number] Electronically signed by Conversion, [facility] Assistant Boys Track Coach [id number] at 10/14/2016 11:43 PM CDT JodicellTamika Woodson M.D. - 06/11/2016 12:18 PM CST Results Notification Document Contains Addenda Addendum by PRUDENCIO LOVE LPN on June 13, 2016 17:21:25 BENEFITS ADVISOR Notified. Addendum by SHELLIE FITZGERALD LPN on June 11, 2016 12:41:08 BENEFITS ADVISOR Fish pending. From: TAMIKA CAMEJO MD To: Urology Nurse; Sent: 06/11/2016 12:18:52 BENEFITS ADVISOR ! Show up: 06/11/2016 12:18:52 BENEFITS ADVISOR Subject: Results Notification Actions: Notify patient of results Reminder Comments: cyto is neg Results: Date Result Type Result Name 06/11/2016 11:31 Document - DOC Non-CLAIM PROCESSING SPECIALIST Cytology Source: [employer] Document Id: [id number] Electronically signed by Conversion, [facility] Assistant Boys Track Coach [id number] at 10/14/2016 11:43 PM CDT Jodicelljen - Tamika Camejo M.D. - 06/10/2016 9:37 AM CST Ambulatory Patient Summary [facility] [address] [place] [id number] Visit Information Name: SEVEN SALAZAR [facility] Number: [id number] Current Date: 06/10/2016 09:37:20 Physicians Attending Provider: TAMIKA CAMEJO MD Primary Care Provider: RILEY RIVERA MD SEVEN SALAZAR has been given the [...] depression. predniSONE (predniSONE 5 mg oral tablet) 3 Tablet(s), Oral, once a day (in the morning) with food ormilk / For polymyalgia rheumatica. May cut back to 10 mg(2 tablets of 5 mg pill) daily, 06/10/2016. Stop Taking the Following Medications: citalopram (citalopram 20 mg oral tablet) Medication list as of 06-10-16 09:37 Attention: If you have any medications at [...] Electronically Signed By: TAMIKA CAMEJO MD Signed On:10-JUN-2016 09:37:16 Your Allergies & Intolerances Substance Reaction Symptoms [...] if you dont have one. Go to [email or web address] and click on Create Your Account. Then, follow the directions to complete the online form. Youll be asked for your [facility] number which you can find at the top of this document. Your Goals/Additional instructions: Source: [facility] POWERCHART Document Id: [id number] FITS ADVISOR Miscellaneous - Tamika Camejo M.D. - 06/10/2016 9:37 AM CST Ambulatory Discharge Medication List [address] [id number] Visit Information Name: SEVEN SALAZAR [facility] Number: [id number] Current Date: 06/10/2016 09:37:19 Attending Provider: TAMIKA CAMEJO MD Primary Care Provider: RILEY RIVERA MD SEVEN SALAZAR has been given the [...] depression. predniSONE (predniSONE 5 mg oral tablet) 3 Tablet(s), Oral, once a day (in the morning) with food ormilk / For polymyalgia rheumatica. May cut back to 10 mg(2 tablets of 5 mg pill) daily, 06/10/2016. Stop Taking the Following Medications: citalopram (citalopram 20 mg oral tablet) Medication list as of 06-10-16 09:37 Attention: If you have any medications at [...] Electronically Signed By: TAMIKA CAMEJO MD Signed On:10-JUN-2016 09:37:16 Additional Information: Source: [facility] POWERCHART Document Id: [id number] FITS ADVISOR Miscellaneous - Shellie Fitzgerald, L.P.N. - 06/10/2016 9:01 AM CST Adult Sail Lay Out Worker Intake/History Adult Sail Lay Out Worker Intake/History Entered On: 06/10/2016 9:04 BENEFITS ADVISOR Performed On: 06/10/2016 9:01 BENEFITS ADVISOR by SHELLIE FITZGERALD LPN Intake Chief Complaint : cystoscopy-history of bladder cancer patient states no problems Temperature Core : 36.4 DegC(Converted to: 97.5 DegF) (LOW) Peripheral Pulse Rate : 80 /min Systolic Blood Pressure : 136 mmHg Diastolic Blood Pressure : 74 mmHg NIBP Mean : 95 mmHg BP Location : Right upper extremity Blood Pressure Cuff Size : Regular Height : 173 cm(Converted to: 5 ft 8 inch(es), 68 inch(es)) SHELLIE FITZGERALD LPN - 06/10/2016 9:01 BENEFITS ADVISOR General Info Information Given By : Patient Preferred Communication Mode : Verbal Languages : Martiniquais Is Patient Female and 13-50 no hysterectomy : No SHELLIE FITGZERALD LPN - 06/10/2016 9:01 BENEFITS ADVISOR Subjective Pain Symptoms : No SHELLIE FITZGERALD LPN - 06/10/2016 9:01 BENEFITS ADVISOR Dependent Habits Exposure to Tobacco Smoke : [...] : Yes Alcohol Use : No SHELLIE FITZGERALD [facility] - 06/10/2016 9:01 BENEFITS ADVISOR Caffeine Use Grid Caffeine Use : Current Type : Coffee, Tea Frequency : Daily Amount : 2 cup coffee/2 tea daily SHELLIE FITZGERALD [facility] - 06/10/2016 9:01 BENEFITS ADVISOR Recreational Drug Use Grid Drug Use : None SHELLIE FITZGERALD [facility] - 06/10/2016 9:01 BENEFITS ADVISOR Source: [facility] POWERCHART Document Id: [id number] BENEFITS ADVISOR!37 FITS ADVISOR documented in this encounter Plan of Treatment Upcoming Encounters Date Type Specialty Care Team Description 04/12/2022 Office Visit Cardiovascular Disease Simone Gooden AP RN, C.N.P. [address] [place] [phone] (Wo rk) documented as of this encounter Procedures Procedure Name Priority Date/Time Associated Comments Diagnosis UROVYSION (R) FOR Routine 06/10/2016 9:00 AM Resu lts for this BLADDER CANCER BENEFITS ADVISOR procedure are in the results section. ZZPATHOLOGY NON-CLAIM PROCESSING SPECIALIST Routine 06/10/2016 7:22 AM Re sults for this CYTOLOGY BENEFITS ADVISOR procedure are i n the results section. documented in this encounter Results UroVysion for Detection of Bladder Cancer, Urine (06/10/2016 9:00 AM BENEFITS ADVISOR) [facility] Method Time Signature HXFUROC Result Negative POWERCHART [facility] HXFUROC See Comment POWERCHART Result-Philippi Comment: RESULT: No evidence of urotheli al [...] and a locus specific probe for 9p21. Reason For Referral See Comment POWERCHA RT Comment: RESULT: Evaluate for urothelial carcinoma. HXFUROC Spec-Mas Varies POWERCHART HXFUROC Source-Philippi Urine, NOS POWERCHAR T HXFUROC Released By-Philippi SHANNAN VILLALOBOS Comment: Test Performed by: [facility] [place] [address] Fabric Cutter: Adiel Toledo II, M.D., Ph.D. Specimen (Source) Anatomical Collection Method Collection Time Re ceived Time Location / / Volume Laterality Urine 06/10/2016 9:00 AM BENEFITS ADVISOR Tamika Camejo M.D. LAB GENETIC TESTING Performing Organization Address City/State/ZIP Code Phon e Number POWERCHART ZZPATHOLOGY NON-CLAIM PROCESSING SPECIALIST CYTOLOGY (06/10/2016 7:22 AM BENEFITS ADVISOR) Specimen (Source) Anatomical Collection Method Collection Time Re ceived Time Location / / Volume Laterality 06/10/2016 7:22 AM BENEFITS ADVISOR Narrative [facility] - 06/11/2016 11:31 AM BENEFITS ADVISOR [facility] in [address] ??[phone] Patient Name: SEVEN SALAZAR Patient ID #: [id number] Collected: 06/10/2016 Address: City/State/Zip: [address] [place] [address] [place], [place] ??[address] Received: Reported: 06/11/2016 06/11/2016 Soc. Sec. #: ?/Age/Sex 1 (Age: 66) ??M Physician(s): Declan CAMEJO MD Copy To: ? [facility] ??[id number] [address] [place] [address] AVE [place], ??[place] ??[address] CYTOPATHOLOGY NON-CLAIM PROCESSING SPECIALIST REPORT FINAL CYTOLOGIC DIAGNOSIS Urine: NEGATIVE FOR MALIGNANCY SATISFACTORY SPECIMEN FOR EVALUATION. Electronically Signed By eae/06/11/2016 TREVA JOYA M.D. [facility](ASCP) SPECIMEN(S) RECEIVED: Urine CLINICAL HISTORY: HISTORY OF BLADDER CANCER GROSS DESCRIPTION: 2 CYTOSPINS PREPARED FROM 60 ML OF CLEAR PALE YELLOW ALCOHOL FIXED FLUID. Tamika Camejo M.D. LAB PATHOLOGY/CYTOLOGY ORDER IRVIN Performing Organization Address City/State/ZIP Code Phon e Number [facility] documented in this encounter Visit Diagnoses Not on filedocumented in this encounter Additional Health Concerns Assessment Noted Time PHQ-9 Depression Total Score: 6 06/10/2016 8:13 AM BENEFITS ADVISOR documented as of this encounter
--- OUTSIDE RECORDS SUMMARY | 2022-03-29 07:53 | XMS_ITS | Encounter Summary ---
:1950 Author Organization [facility] Address [address] [place] [address] Care Team Providers Name Role Phone Unavailable Primary Care Provider Unavailable Encounter Details Date Type Department Care Team Description 03/26/2016 Hospital Encounter HX [facility] Jatinder Camejo M.D. [address] [place] [address] (Wo rk) Social History Tobacco [...] How often do you attend taoism or voodoo services? 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 documented as of this encounter Last Filed Vital Signs Vital Sign Reading Time Taken Comments Blood Pressure 104/58 03/26/2016 10:27 AM SOCIAL SCIENCES PROFESSOR Pulse 88 03/26/2016 10:27 AM SOCIAL SCIENCES PROFESSOR Temperature - - Respiratory Rate - - Oxygen Saturation - - Inhaled Oxygen Concentration - - Weight - - Height 173 cm (5' 8.11) 03/26/2016 10:27 AM SOCIAL SCIENCES PROFESSOR Body Mass Index - - documented in this encounter Medications at Time of Discharge Medication Sig Dispensed Refills Start Date End Date albuterol sulfate 90 Inhale 2 puffs every 0 03/1104/24/2017 mcg/actuation aerosol 4 (four) hours as powdr breath activated needed. documented as of this encounter Nursing Notes Shellie Irwin L.P.N. - 03/26/2016 10:27 AM CST Nurse Only Documentation Nurse Only Documentation Entered On: 03/26/2016 10:29 SOCIAL SCIENCES PROFESSOR Performed On: 03/26/2016 10:27 SOCIAL SCIENCES PROFESSOR by SHELLIE IRWIN LPN Nurse Only Documentation Nurse Only Visit Documentation : 2 of 6 BCG with interferon-patient states only had a headache for afew days slight nothing bad SHELLIE IRWIN LPN - 03/26/2016 10:27 SOCIAL SCIENCES PROFESSOR Vitals/Ht/Wt Temperature Core : 35.8 DegC(Converted to: 96.4 DegF) (LOW) Peripheral Pulse Rate : 88 /min Systolic Blood Pressure : 104 mmHg Diastolic Blood Pressure : 58 mmHg NIBP Mean : 73 mmHg BP Location : Left upper extremity Blood Pressure Cuff Size : Regular Height : 173 cm(Converted to: 5 ft 8 inch(es), 68 inch(es)) SHELLIE IRWIN LPN - 03/26/2016 10:27 SOCIAL SCIENCES PROFESSOR Source: [employer] POWERCHART Document Id: [id number] SOCIAL SCIENCES PROFESSOR!12 AL SCIENCES PROFESSOR documented in this encounter Plan of Treatment Upcoming Encounters Date Type Specialty Care Team Description 04/12/2022 Office Visit Cardiovascular Disease Simone Gooden AP RN, C.N.P. [address] [phone] (Wo rk) documented as of this encounter Visit Diagnoses Not on filedocumented in this encounter Additional Health Concerns Assessment Noted Time PHQ-9 Depression Total Score: 10 03/11/2016 8:34 AM CS T documented as of this encounter
--- OUTSIDE RECORDS SUMMARY | 2022-03-29 07:53 | XMS_ITS | Encounter Summary ---
:1950 Author Organization [facility] Address [address] [place] [address] Care Team Providers Name Role Phone Unavailable Primary Care Provider Unavailable Encounter Details Date Type Department Care Team Description 04/09/2016 Hospital Encounter HX [facility] Jatinder Camejo M.D. [address] [place] [address] (Wo rk) Social History Tobacco [...] How often do you attend jewish or sabianist services? Never 04/16/2019 Do you [...] at Date Recorded Male 06/28/2019 8:47 AM ARBITRATOR documented as of this encounter Last Filed Vital Signs Vital Sign Reading Time Taken Comments Blood Pressure 116/70 04/09/2016 10:32 AM ARBITRATOR Pulse 76 04/09/2016 10:32 AM ARBITRATOR Temperature - - Respiratory Rate - - Oxygen Saturation - - Inhaled Oxygen Concentration - - Weight - - Height 173 cm (5' 8.11) 04/09/2016 10:32 AM ARBITRATOR Body Mass Index - - documented in this encounter Medications at Time of Discharge Medication Sig Dispensed Refills Start Date End Date albuterol sulfate 90 Inhale 2 puffs every 0 03/1104/24/2017 mcg/actuation aerosol 4 (four) hours as powdr breath activated needed. documented as of this encounter Nursing Notes Prudencio Cannon L.P.N. - 04/09/2016 10:32 AM CST Nurse Only Documentation Nurse Only Documentation Entered On: 04/09/2016 10:36 ARBITRATOR Performed On: 04/09/2016 10:32 ARBITRATOR by PRUDENCIO CANNON LPN Nurse Only Documentation Nurse Only Visit Documentation : BCG/Interferon 4 of 6 Treatment PRUDENCIO CANNON LPN - 04/09/2016 10:32 ARBITRATOR Vitals/Ht/Wt Temperature Core : 36.3 DegC(Converted to: 97.3 DegF) (LOW) Peripheral Pulse Rate : 76 /min Systolic Blood Pressure : 116 mmHg Diastolic Blood Pressure : 70 mmHg NIBP Mean : 85 mmHg BP Location : Left upper extremity Blood Pressure Cuff Size : Regular Height : 173 cm(Converted to: 5 ft 8 inch(es), 68 inch(es)) PRUDENCIO CANNON LPN - 04/09/2016 10:32 ARBITRATOR Source: [employer] Document Id: [id number] ARBITRATOR!12 TRATOR documented in this encounter Plan of Treatment Upcoming Encounters Date Type Specialty Care Team Description 04/12/2022 Office Visit Cardiovascular Disease Simone Gooden AP RN, C.N.P. [address] [place] [address] [phone] (Wo rk) documented as of this encounter Visit Diagnoses Not on filedocumented in this encounter Additional Health Concerns Assessment Noted Time PHQ-9 Depression Total Score: 10 03/11/2016 8:34 AM CS T documented as of this encounter
--- OUTSIDE RECORDS SUMMARY | 2022-03-29 07:53 | XMS_ITS | Encounter Summary ---
:1950 Author Organization [facility] Address [address] [place] [address] Care Team Providers Name Role Phone Unavailable Primary Care Provider Unavailable Encounter Details Date Type Department Care Team Description 05/13/2016 Hospital Encounter HX [facility] Riley Jimenez M.D. [address] [facility], [facility] [address] [phone] Social History Tobacco Use Types Packs/Day [...] How often do you attend baptism or congregation services? Never 04/16/2019 Do you [...] Date Recorded Male 06/28/2019 8:47 AM REGISTERED DIET TECHNICIAN documented as of this encounter Last Filed Vital Signs Vital Sign Reading Time Taken Comments Blood Pressure 126/61 05/13/2016 8:07 AM REGISTERED DIET TECHNICIAN Pulse 65 05/13/2016 8:07 AM REGISTERED DIET TECHNICIAN Temperature - - Respiratory Rate 16 05/13/2016 8:07 AM REGISTERED DIET TECHNICIAN Oxygen Saturation - - Inhaled Oxygen Concentration - - Weight 94.3 kg (207 lb 12.5 oz) 05/13/2016 8:07 AM REGISTERED DIET TECHNICIAN Height 173 cm (5' 8.11) 05/13/2016 8:07 AM REGISTERED DIET TECHNICIAN Body Mass Index 31.49 05/13/2016 8:07 AM REGISTERED DIET TECHNICIAN documented in this encounter Medications at Time of Discharge Medication Sig Dispensed Refills Start Date End Date albuterol sulfate 90 Inhale 2 puffs every 0 03/1104/24/2017 mcg/actuation aerosol 4 (four) hours as powdr breath activated needed. documented as of this encounter Progress Notes Riley Sanchez M.D. - 05/13/2016 7:55 AM CST [id number] CHIEF COMPLAINT/REASON FOR VISIT Followup on chronic medical problems. HISTORY OF PRESENT ILLNESS Mik is a 66-year-old male who presents to the clinic today for a one month followup from 03/25/2016. He completed BCG treatment on 04/21/2016 for bladder cancer. He then developed aches and pains, especially in the knees, hips, and ribs. He has been taking some left over Prednisone 15 mg and finds relief with that. There is no loss of vision, double vision, or jaw pain. He feels that his anxiety and depression is ok. He does not feel that his medication is improving his mood that much. Currently, he is on Citalopram 20 mg daily in the morning. His PHQ-9 score is 9 today. He is sleeping pretty well. We discussed increasing medication or changing medication. He did nottake Cymbalta in the past due to expense. Patient saw a psychiatrist in [place] a long time ago, maybe 10 years ago. He mentioned that he went to anger classes for a while as well. His blood pressure is controlled today. He continues to smoke cigarettes. I reviewed and updated hismedication list. We discussed potential side effects. There are no additional questions, concerns, or complaints. MEDICATIONS Albuterol CFC free 90 mcg/inh 2 puffs every 4 hours as needed. Citalopram 20 mg by mouth daily in the morning. Hydrochlorothiazide 25 mg by mouth daily in the morning. Lisinopril 40 mg by mouth daily in the morning. Nortriptyline 25 mg by mouth at bedtime Prednisone 15 mg by mouth daily. ALLERGIES Influenza vaccine. Pravastatin causing myalgia, arthralgia. Wellbutrin causing suicidal thoughts. SYSTEMS REVIEW Please see HPI for pertinent positives, otherwise rest of ROS negative. PAST MEDICAL/SURGICAL HISTORY Reviewed and updated as per the EHR on 05/13/2016. PREVENTIVE SERVICES Reviewed and updated as per the EHR on 05/13/2016. SOCIAL HISTORY Reviewed and updated as per the EHR on 05/13/2016. FAMILY HISTORY Reviewed and updated as per the EHR on 05/13/2016. VITAL SIGNS HEIGHT: 173 cm. WEIGHT: 94.25 kg. BMI: 31.49 kg/m2. PULSE: 65 /min. RESP: 16 /min. SYSTOLIC: 126 mmHg. DIASTOLIC: 61 mmHg. PHYSICAL EXAMINATION GENERAL: Patient is sitting. No distress. Able to talk without interruption. MENTAL: Alert and oriented x 3. Normal mood and affect. IMPRESSION/REPORT/PLAN 1. Carcinoma of the urinary bladder, grade 1 of 3. He completed BCG treatment. He will follow with urology next month. 2. Anxiety with depression. It is not optimally controlled. Today PHQ-9 score is 9. I do not want toincrease Citalopram because it can cause irregular heart rhythm. He will continue Citalopram 20 mg daily in the morning. After discussion, it was decided to add Nortriptyline 25 mg at bedtime. He should contact me if he develops side effects to new prescription medication. 3. Polymyalgia rheumatica with elevated sedimentation rate. We will restart Prednisone because of aches and pains. Prescription was done for Prednisone 15 mg daily in the morning. Need to check sedimentation rate today. 4. Benign essential hypertension. Blood pressure is controlled. He is stable from a cardiac standpoint. Need to continue sodium controlled diet and current medication. Blood pressure goal is less than 140/90 mmHg. Need to continue cardiovascular risk factors modification. 5. Tobacco abuse. I recommended smoking cessation. We discussed complications. 6. Renew medications. The following medications were renewed: Prednisone. Todays studies: BMP, CBC, and Sedimentation rate. Patient will be notified with results & recommendations. The patient will return to the clinic in 1 month for followup. This document serves as a record of services personally performed by Dr. Riley Sanchez. It was created on their behalf by Juan Ramos, a trained medical office manager. The creation of this record is based on the scribe's personal observations and the provider's statements to them. This document has been checked and approved by the attending provider. Riley Sanchez M.D./arti Electronically Signed By: RILEY SANCHEZ MD On: 05/31/2016 11:04 AM Modified by and Electronically Signed by: RILEY SANCHEZ MD On: 05/31/2016 11:04 AM Source: [facility] ROSA MARIA Document Id: [id number] STERED DIET TECHNICIAN documented in this encounter Miscellaneous Notes Miscellaneous - Riley Sanchez M.D. - 05/19/2016 10:07 AM CST Results Notification 05/13/2016 Document Contains Addenda Addendum by JUANY DUNCAN LPN on May 20, 2016 13:13:40 REGISTERED DIET TECHNICIAN Spoke with: ( x ) Patient ( _ ) Parent ( _ ) Spouse ( _ ) Child ( ) Other: _ Call back telephone number: [phone] Reason for Call: -Test Results Chief Complaint: Patient notified of test results and Dr. Sanchez's recommendations listed below. _ Patient/Caller response to Education/Information given: ( x ) Verbalizes understanding of instructions ( x ) Provide intervention per provider instruction ( [...] language for Healthcare discussion: _ Was an granite polisher machine used for this call? _ Other ( --x ) No further action needed. Addendum by PHOENIX LORENZANA on May 20, 2016 12:06:42 REGISTERED DIET TECHNICIAN Patient returned your call please call again Addendum by JUANY DUNCAN LPN on May 20, 2016 10:55:50 REGISTERED DIET TECHNICIAN Left message for patient to return my call. From: RILEY SANCHEZ MD To: JOSE Sanchez Nurse; Sent: 05/19/2016 10:07:48 REGISTERED DIET TECHNICIAN ! Show up: 05/19/2016 10:08:00 REGISTERED DIET TECHNICIAN Subject: Results Notification 05/13/2016 Actions: Notify patient of results, Notify Patient of Future Order Please call him with following messages. Your tests for electrolytes and kidney function are normal. Sed rate(Test for polymyalgia rheumatica) is slightly high, but better than last time. Blood counts showed high WBC and platelets, not serious. We will monitor. See you in June 2016 and will recheck blood tests at that time. Please follow up with us as we discussed during your visit or sooner if you have any concerns. If you have questions or concerns, please do not hesitate to call our office. Results: Date Result Name Ind Value Ref Range 05/13/2016 08:51 Sodium Lvl 137 mmol/L (135 - 145) 05/13/2016 08:51 Potassium Lvl 5.0 mmol/L (3.6 - 5.2) 05/13/2016 08:51 Chloride 98 mmol/L (98 - 107) 05/13/2016 08:51 CO2 25 mmol/L (22 - 29) 05/13/2016 08:51 AGAP 14 mmol/L (7 - 15) 05/13/2016 08:51 Glucose Lvl 138 mg/dL (70 - 139) 05/13/2016 08:51 Creatinine 0.90 mg/dL (0.80 - 1.30) 05/13/2016 08:51 EGFR (MDRD) >60 mL/min/1.73m2 (>=60 - ) 05/13/2016 08:51 EGFR (MDRD) >60 mL/min/1.73m2 (>=60 - ) 05/13/2016 08:51 BUN (H) 31 mg/dL (8 - 24) 05/13/2016 08:51 Calcium Lvl 10.3 mg/dL (8.8 - 10.3) 05/13/2016 08:51 Hgb 13.5 g/dL (13.5 - 17.5) 05/13/2016 08:51 Hct 41.8 % (38.8 - 50.0) 05/13/2016 08:51 WBC (H) 16.9 x10(9)/L (3.5 - 10.5) 05/13/2016 08:51 RBC 4.85 x10(12)/L (4.32 - 5.72) 05/13/2016 08:51 MCV 86.2 fL (81.0 - 95.0) 05/13/2016 08:51 RDW 14.6 % (11.8 - 15.6) 05/13/2016 08:51 Platelet (H) 511 x10(9)/L (150 - 450) 05/13/2016 08:51 Neutro Absolute (H) 14.18 10(9)/L (1.70 - 7.00) 05/13/2016 08:51 Lymph Absolute 1.77 x10(9)/L (0.90 - 2.90) 05/13/2016 08:51 [place] Absolute 0.85 x10(9)/L (0.30 - 0.90) 05/13/2016 08:51 Eos Absolute (L) 0.00 x10(9)/L (0.05 - 0.50) 05/13/2016 08:51 Baso Absolute 0.06 x10(9)/L (0.00 - 0.30) 05/13/2016 08:51 Sed Rate (H) 26 mm/hr (0 - 22) Source: [facility] POWERCHART Document Id: [id number] Electronically signed by Conversion, [facility] Racing Secretary [id number] at 10/14/2016 9:37 PM CDT Miscellaneous - Riley Sanchez M.D. - 05/19/2016 10:07 AM CST Custom Result Letter May 19, 2016 SEVEN SALAZAR [address] [facility] [address] Dear SEVEN SALAZAR, Your tests for electrolytes and kidney function are normal. Sed rate(Test for polymyalgia rheumatica) is slightly high, but better than last time. Blood counts showed high WBC and platelets, not serious. We will monitor. See you in June 2016 and will recheck blood tests at that time. Please follow up with us as we discussed during your visit or sooner if you have any concerns. If you have questions or concerns, please do not hesitate to call our office. Result Name Current Result Normal Range Sodium Lvl (mmol/L) 137 05/13/2016 135 - 145 Potassium Lvl (mmol/L) 5.0 05/13/2016 3.6 - 5.2 Chloride (mmol/L) 98 05/13/2016 98 - 107 CO2 (mmol/L) 25 05/13/2016 22 - 29 Glucose Lvl (mg/dL) 138 05/13/2016 70 - 139 Creatinine (mg/dL) 0.90 05/13/2016 0.80 - 1.30 EGFR (MDRD) (mL/min/1.73m2) >60 05/13/2016 >=60 - BUN (mg/dL) (H) 31 05/13/2016 8 - 24 Calcium Lvl (mg/dL) 10.3 05/13/2016 8.8 - 10.3 Hgb (g/dL) 13.5 05/13/2016 13.5 - 17.5 Hct (%) 41.8 05/13/2016 38.8 - 50.0 WBC (x10(9)/L) (H) 16.9 05/13/2016 3.5 - 10.5 [id number] (x10(9)/L) (H) 511 05/13/2016 150 - 450 Sed Rate (mm/hr) (H) 26 05/13/2016 0 - 22 Sincerely, RILEY SANCHEZ [address] [place] [address] Electronic Signature Electronically Signed By: RILEY SANCHEZ MD On: May 19, 2016 This document has images extracted. Source: [facility] POWERCHART Document Id: [id number] Miscellaneous - Riley Sanchez M.D. - 05/13/2016 8:41 AM CST Ambulatory Patient Summary [facility] [address] [place], [place] [id number] Visit Information Name: SEVEN SALAZAR [facility] Number: [id number] Current Date: 05/13/2016 08:41:57 Physicians Attending Provider: RILEY SANCHEZ MD Primary [...] (in the morning) $10.00 for 90 days. hydrochlorothiazide (hydrochlorothiazide 25 mg oral tablet) 1 Tablet(s), Oral, once a day (in the morning) lisinopril (lisinopril 40 mg oral tablet) 1 Tablet(s), Oral, once a day (in the morning) nortriptyline (nortriptyline 25 mg oral capsule) 1 cap, Oral, once a day (at bedtime) For depression. New Routed to [address] [address] predniSONE (predniSONE 5 mg oral tablet) 3 Tablet(s), Oral, once a day (in the morning) with food ormilk / For polymyalgia rheumatica. New Routed to [address] [address] Stop Taking the Following Medications: Medication list as of 05-13-16 08:41 Attention: If you have any medications at [...] Electronically Signed By: RILEY SANCHEZ MD Signed On:13-MAY-2016 08:41:52 Your Allergies & Intolerances Substance Reaction Symptoms [...] if you dont have one. Go to [email or web address] and click on Create Your Account. Then, follow the directions to complete the online form. Youll be asked for your [facility] number which you can find at the top of this document. Your Goals/Additional instructions: Source: [facility] POWERCHART Document Id: [id number] STERED DIET TECHNICIAN Miscellaneous - Riley Sanchez M.D. - 05/13/2016 8:41 AM CST Ambulatory Discharge Medication List [address] [id number] Visit Information Name: SEVEN SALAZAR [facility] Number: [id number] Current Date: 05/13/2016 08:41:56 Attending Provider: RILEY SANCHEZ MD Primary Care [...] (in the morning) $10.00 for 90 days. hydrochlorothiazide (hydrochlorothiazide 25 mg oral tablet) 1 Tablet(s), Oral, once a day (in the morning) lisinopril (lisinopril 40 mg oral tablet) 1 Tablet(s), Oral, once a day (in the morning) nortriptyline (nortriptyline 25 mg oral capsule) 1 cap, Oral, once a day (at bedtime) For depression. New Routed to [address] [address] predniSONE (predniSONE 5 mg oral tablet) 3 Tablet(s), Oral, once a day (in the morning) with food ormilk / For polymyalgia rheumatica. New Routed to [address] [address] Stop Taking the Following Medications: Medication list as of 05-13-16 08:41 Attention: If you have any medications at [...] Electronically Signed By: RILEY SANCHEZ MD Signed On:13-MAY-2016 08:41:52 Additional Information: Source: [employer] Document Id: [id number] STERED DIET TECHNICIAN Miscellaneous - Juany Duncan, LBhaveshP.N. - 05/13/2016 8:11 AM CST PHQ-9 PHQ-9 Entered On: 05/13/2016 8:14 REGISTERED DIET TECHNICIAN Performed On: 05/13/2016 8:11 REGISTERED DIET TECHNICIAN by JUANY DUNCAN LPN PHQ-9 Little interest or pleasure in doing things : Several days Feeling down, depressed, or hopeless : Not at all Trouble falling or staying asleep, or sleeping too much : Several days Feeling tired or having little energy : Not at all Poor appetite or overeating : More than half the days Feeling bad about yourself or that you are a failure : More than half the days Trouble concentrating on things : More than half the days Moving or speaking slowly; restless or fidgety : Several days Thoughts that you would be better off /hurting self : Not at all PHQ-9 Calculated Score : 9 Problems make work, home, or dealing with others : Not difficult at all JUANY DUNCAN LPN - 05/13/2016 8:11 REGISTERED DIET TECHNICIAN Source: [employer] Document Id: [id number] REGISTERED DIET TECHNICIAN!13 STERED DIET TECHNICIAN Miscellaneous - Juany Duncan L.P.N. - 05/13/2016 8:07 AM CST Adult Motivational Speaker Intake/History Adult Motivational Speaker Intake/History Entered On: 05/13/2016 8:11 REGISTERED DIET TECHNICIAN Performed On: 05/13/2016 8:07 REGISTERED DIET TECHNICIAN by JUANY DUNCAN LPN Intake Chief Complaint : 1. One month follow-up from 03/25/2016 - follow-up on chronic medical problems Peripheral Pulse Rate : 65 /min Respiratory Rate : 16 /min Systolic Blood Pressure : 126 mmHg Diastolic Blood Pressure : 61 mmHg NIBP Mean : 83 mmHg BP Location : Left upper extremity Blood Pressure Cuff Size : Regular Height : 173 cm(Converted to: 5 ft 8 inch(es), 68 inch(es)) Actual Weight : 94.25 kg(Converted to: 207 lb 13 oz) Weight Source : Standing scale Dosing Weight Clinic : 94.25 kg Clinic BSA : 2.13 Body Mass Index : 31.49 kg/m2 JUANY DUNCAN LPN - 05/13/2016 8:07 REGISTERED DIET TECHNICIAN General Info Information Given By : Patient Preferred Communication Mode : Verbal, Written Languages : Turkish Is Patient Female and 13-50 no hysterectomy : No JUANY DUNCAN LPN - 05/13/2016 8:07 REGISTERED DIET TECHNICIAN Subjective Pain Symptoms : Yes JUANY DUNCAN LPN - 05/13/2016 8:07 REGISTERED DIET TECHNICIAN Pain Scale Pain Scale Verbal 0-10 : Open JUANY DUNCAN LPN - 05/13/2016 8:07 REGISTERED DIET TECHNICIAN Pain Pain Assessment Grid Pain 1 Location : Other: arthritis pain JUANY DUNCAN LPN - 05/13/2016 8:07 REGISTERED DIET TECHNICIAN Dependent Habits Exposure to Tobacco Smoke : [...] Quit : Yes JUANY DUNCAN LPN - 05/13/2016 8:07 REGISTERED DIET TECHNICIAN Caffeine Use Grid Caffeine Use : Current Type : Coffee, Tea Frequency : Daily Amount : 2 cup coffee/2 tea daily JUANY DUNCAN REHABILITATION SERVICES AIDE - 05/13/2016 8:07 REGISTERED DIET TECHNICIAN Recreational Drug Use Grid Drug Use : None JUANY DUNCAN REHABILITATION SERVICES AIDE - 05/13/2016 8:07 REGISTERED DIET TECHNICIAN Source: [facility] POWERCHART Document Id: [id number] REGISTERED DIET TECHNICIAN!47 STERED DIET TECHNICIAN documented in this encounter Plan of Treatment Upcoming Encounters Date Type Specialty Care Team Description 04/12/2022 Office Visit Cardiovascular Disease Simone Gooden AP RN, C.N.P. [address] [phone] (Wo rk) documented as of this encounter Procedures Procedure Name Priority Date/Time Associated Comments Diagnosis AUTOMATED Routine 05/13/2016 8:51 AM Results f or this DIFFERENTIAL, B REGISTERED DIET TECHNICIAN procedure ar e in the results section. SEDIMENTATION RATE, B Routine 05/13/2016 8:51 AM Results for this REGISTERED DIET TECHNICIAN procedure are i n the results section. CBC WITH DIFFERENTIAL, Routine 05/13/2016 8:51 AM Results for this B REGISTERED DIET TECHNICIAN procedure are i n the results section. BASIC METABOLIC PANEL, Routine 05/13/2016 8:51 AM Results for this S/P REGISTERED DIET TECHNICIAN procedure are i n the results section. documented in this encounter Results (ABNORMAL) Automated Differential (05/13/2016 8:51 AM REGISTERED DIET TECHNICIAN) [facility] Method Time Signature Absolute 14.18 (H) 1.70 - POWERCHART Neutrophils 7.00 109L Lymphocytes 1.77 0.90 - POWERCHART 2.90 X109L Monocytes 0.85 0.30 - POWERCHART 0.90 X109L Eosinophils 0.00 (L) 0.05 - POWERCHART 0.50 X109L Absolute 0.06 0.00 - POWERCHART Basophil 0.30 X109L Specimen Anatomical Collection Method Collection Time Receive d Time (Source) Location / / Volume Laterality Blood 05/13/2016 8:51 AM 7 8:51 REGISTERED DIET TECHNICIAN AM REGISTERED DIET TECHNICIAN Riley Sanchez M.D. LAB BLOOD ADD-ON Performing Organization Address City/[facility]/ZIP [facility] Phon e Number POWERCHART (ABNORMAL) Sedimentation Rate (05/13/2016 8:51 AM REGISTERED DIET TECHNICIAN) Patholo gist Method Time Signature Sedimentation 26 (H) 0 - 22 POWERCHART Rate, B MMHR Specimen (Source) Anatomical Collection Method Collection Time Re ceived Time Location / / Volume Laterality Blood 05/13/2016 8:51 AM REGISTERED DIET TECHNICIAN Riley Sanchez Javid LAB BLOOD ADD-ON Performing Organization Address City/[facility] Phon e Number POWERCHART (ABNORMAL) CBC with Differential (05/13/2016 8:51 AM REGISTERED DIET TECHNICIAN) Analysis Performed At Patho logist Time Signature Leukocytes 16.9 (H) 3.5 - 10.5 POWERCHART X109L Erythrocytes 4.85 4.32 - POWERCHART 5.72 [id number] Hemoglobin 13.5 13.5 - POWERCHART 17.5 GDL Hematocrit 41.8 38.8 - POWERCHART 50.0 MCV 86.2 81.0 - POWERCHART 95.0 FL HX RDW 14.6 11.8 - POWERCHART 15.6 Platelet Count 511 (H) 150 - 450 POWERCHART X109L Specimen (Source) Anatomical Collection Method Collection Time Re ceived Time Location / / Volume Laterality Blood 05/13/2016 8:51 AM REGISTERED DIET TECHNICIAN Riley Sanchez Javid LAB BLOOD ADD-ON Performing Organization Address City/[facility] Phon e Number POWERCHART (ABNORMAL) BMP (Basic Metabolic Panel) (05/13/2016 8:51 AM REGISTERED DIET TECHNICIAN) P athologist Signature Sodium, S 137 135 - 145 POWERCHART MMOLL Potassium, S 5.0 3.6 - 5.2 POWERCHART MMOLL Chloride, S 98 98 - 107 POWERCHART MMOLL CO2 Total 25 22 - 29 POWERCHART MMOLL BUN (Blood Urea 31 (H) 8 - 24 POWERCHART Nitrogen), S MGDL Creatinine 0.90 0.80 - POWERCHART 1.30 MGDL Calcium, Total, 10.3 8.8 - 10.3 POWERCHART S MGDL Anion Gap 14 7 - 15 POWERCHART MMOLL HXeGFR (MDRD) >60 >=60 POWERCHART [id number] eGFR >60 >=60 POWERCHART Black/ [id number] Chilean Glucose 138 70 - 139 POWERCHART MGDL Specimen (Source) Anatomical Collection Method Collection Time Re ceived Time Location / / Volume Laterality Blood 05/13/2016 8:51 AM REGISTERED DIET TECHNICIAN Riley Sanchez M.D. LAB BLOOD ADD-ON Performing Organization Address City/State/ZIP Code Phon e Number POWERCHART documented in this encounter Visit Diagnoses Not on filedocumented in this encounter Additional Health Concerns Assessment Noted Time PHQ-9 Depression Total Score: 9 05/13/2016 8:11 AM REGISTERED DIET TECHNICIAN documented as of this encounter
--- OUTSIDE RECORDS SUMMARY | 2022-03-29 07:53 | XMS_ITS | Encounter Summary ---
:1950 Author Organization [facility] Address [address] [place] [address] Care Team Providers Name Role Phone Unavailable Primary Care Provider Unavailable Encounter Details Date Type Department Care Team Description 04/16/2016 Hospital Encounter HX [facility] Jatinder Camejo M.D. [address] [place] [phone] (Wo rk) Social History Tobacco [...] How often do you attend latter-day or latter-day services? Never 04/16/2019 Do you [...] at Date Recorded Male 06/28/2019 8:47 AM SECURITY ORDERLY documented as of this encounter Last Filed Vital Signs Vital Sign Reading Time Taken Comments Blood Pressure 106/60 04/16/2016 10:19 AM SECURITY ORDERLY Pulse 68 04/16/2016 10:19 AM SECURITY ORDERLY Temperature - - Respiratory Rate - - Oxygen Saturation - - Inhaled Oxygen Concentration - - Weight - - Height 173 cm (5' 8.11) 04/16/2016 10:19 AM SECURITY ORDERLY Body Mass Index - - documented in this encounter Medications at Time of Discharge Medication Sig Dispensed Refills Start Date End Date albuterol sulfate 90 Inhale 2 puffs every 0 03/1104/24/2017 mcg/actuation aerosol 4 (four) hours as powdr breath activated needed. documented as of this encounter Nursing Notes Shellie Irwin L.P.N. - 04/16/2016 10:19 AM CST Nurse Only Documentation Nurse Only Documentation Entered On: 04/16/2016 10:26 SECURITY ORDERLY Performed On: 04/16/2016 10:19 SECURITY ORDERLY by SHELLIE IRWIN LPN Nurse Only Documentation Nurse Only Visit Documentation : 5 of 6 BCG with interferon-patient states no problems and is feeling good SHELLIE IRWIN LPN - 04/16/2016 10:19 SECURITY ORDERLY Vitals/Ht/Wt Temperature Core : 36.1 DegC(Converted to: 97.0 DegF) (LOW) Peripheral Pulse Rate : 68 /min Systolic Blood Pressure : 106 mmHg Diastolic Blood Pressure : 60 mmHg NIBP Mean : 75 mmHg BP Location : Left upper extremity Blood Pressure Cuff Size : Regular Height : 173 cm(Converted to: 5 ft 8 inch(es), 68 inch(es)) SHELLIE IRWIN LPN - 04/16/2016 10:19 SECURITY ORDERLY [facility] POWER[facility] Document Id: [id number] SECURITY ORDERLY!12 RITY ORDERLY documented in this encounter Plan of Treatment Upcoming Encounters Date Type Specialty Care Team Description 04/12/2022 Office Visit Cardiovascular Disease Simone Gooden AP RN, C.N.P. [address] [phone] (Wo rk) documented as of this encounter Visit Diagnoses Not on filedocumented in this encounter Additional Health Concerns Assessment Noted Time PHQ-9 Depression Total Score: 10 03/11/2016 8:34 AM CS T documented as of this encounter
--- OUTSIDE RECORDS SUMMARY | 2022-03-29 07:53 | XMS_ITS | Encounter Summary ---
:1950 Author Organization [facility] Address [address] [place] [address] Care Team Providers Name Role Phone Unavailable Primary Care Provider Unavailable Encounter Details Date Type Department Care Team Description 04/16/2016 Hospital Encounter HX NO MAPPING Darlene Camejo M.D. [address] [place], [place] [phone] (Wo rk) Social History [...] How often do you attend buddhism or methodist services? 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 documented as of this encounter Miscellaneous Notes Miscellaneous - Conversion, Historical Provider Ser - 04/16/2016 11:59 PM ADULT CROSSING GUARD Coding Summary-Paper Based CODING DATE: 04/26/2016 FINAL [facility] STATUS: * Discharged to Home or Self [...] terminology. Coded By: MARGE BROWNING Date Saved: 04/26/2016 09:34 am Source: MedTest DX Document Id: [id number] documented in this encounter Plan of Treatment Upcoming Encounters Date Type Specialty Care Team Description 04/12/2022 Office Visit Cardiovascular Disease Simone Gooden AP RN, C.N.P. [address] [phone] (Wo rk) documented as of this encounter Visit Diagnoses Not on filedocumented in this encounter Additional Health Concerns Assessment Noted Time PHQ-9 Depression Total Score: 10 03/11/2016 8:34 AM CS T documented as of this encounter
--- OUTSIDE RECORDS SUMMARY | 2022-03-29 07:53 | XMS_ITS | Encounter Summary ---
:1950 Author Organization [facility] Address [address] [place] [address] Care Team Providers Name Role Phone Unavailable Primary Care Provider Unavailable Encounter Details Date Type Department Care Team Description 04/09/2016 Hospital Encounter HX [facility] Tarik Camejo M.D. [address] [place], [place] [phone] (Wo rk) Social History [...] week 04/16/2019 How often do you attend synagogue or methodist services? 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 [address] [place] [phone] (Wo rk) documented as of this encounter Procedures Procedure Name Priority Date/Time Associated Comments Diagnosis HXUR % DYSMORPHIC RBC Routine 04/09/2016 9:46 AM Results for this TANKER SERVICE ATTENDANT procedure are i n the results section. URINALYSIS WITH Routine 04/09/2016 9:46 AM Result s for this MICROSCOPIC TANKER SERVICE ATTENDANT procedure are i n the results section. BACTERIAL CULTURE, Routine 04/09/2016 9:46 AM Res ults for this AEROBIC, URINE TANKER SERVICE ATTENDANT procedure are in the results section. documented in this encounter Results HXUR % DYSMORPHIC RBC (04/09/2016 9:46 AM TANKER SERVICE ATTENDANT) athologist Signature Dysmorphic RBC <=25 <=25 POWERCHART Specimen Anatomical Collection Method Collection Time Receive d Time (Source) Location / / Volume Laterality Urine, First 04/09/2016 9:46 AM 6 9:46 Voided TANKER SERVICE ATTENDANT AM TANKER SERVICE ATTENDANT Jatinder Camejo M.D. LAB HISTORICAL ORDERS Performing Organization Address City/State/ZIP Code Phon e Number POWERCHART (ABNORMAL) Urinalysis, Complete, Includes Microscopic (04/09/2016 9:46 AM TANKER SERVICE ATTENDANT) [facility] gist Method Time Signature HXUR WBC. 31-40 (A) None Seen POWERCHART HPF HXUR RBC. 21-30 (A) None Seen POWERCHART HPF Casts, Hyaline 11-20 (A) None Seen POWERCHART LPF Squamous 4-10 (A) None Seen POWERCHART Epithelial HPF HXUr Color Yellow Yellow POWERCHART Clarity Clear Clear POWERCHART Glucose Negative Negative POWERCHART HXBILIRUBIN Negative Negative POWERCHART Ketones, QL(U) Negative Negative POWERCHART Specific 1.016 1.001 - POWERCHART Pitkin, POCT, 1.035 U Comment: Reference Range Specific [place]: 1.000-1.035 pH, POCT, Urine 6.0 POWERCHART Comment: UA pH Reference Range pH: 5.0-8.0 Protein, Ur, Dip Negative Negative POWERCHART Urobilinogen 0.2 0.2 MGDL POWERCHART Comment: Reference Range Urobilinogen: 0.2-1.0 mg/dL HXNITRITE Negative Negative POWERCHART HXBLOOD Moderate (A) Negative POWERCHART Leukocyte Esterase Moderate (A) Negative POWERCHA RT Specimen (Source) Anatomical Collection Method Collection Time Re ceived Time Location / / Volume Laterality Urine, First 04/09/2016 9:46 AM Voided TANKER SERVICE ATTENDANT Jatinder Camejo M.D. LAB URINE ORDERABLES Performing Organization Address City/State/ZIP Code Phon e Number POWERCHART Bacterial Culture, Aerobic, Urine (04/09/2016 9:46 AM TANKER SERVICE ATTENDANT) Analysis Performed At Patho logist Time Signature Bacterial POWERCHART Culture, Aerobic, Urine HXFinal No growth POWERCHART Specimen (Source) Anatomical Collection Method Collection Time Re ceived Time Location / / Volume Laterality Urine, First 04/09/2016 9:46 AM Voided TANKER SERVICE ATTENDANT Jatinder Camejo M.D. LAB MICROBIOLOGY - GENERAL O RDERABLES Performing Organization Address City/State/ZIP Code Phon e Number POWERCHART documented in this encounter Visit Diagnoses Not on filedocumented in this encounter Additional Health Concerns Assessment Noted Time PHQ-9 Depression Total Score: 10 03/11/2016 8:34 AM CS T documented as of this encounter
--- OUTSIDE RECORDS SUMMARY | 2022-03-29 07:53 | XMS_ITS | Encounter Summary ---
:1950 Author Organization [facility] Address [address] [place] [address] Care Team Providers Name Role Phone Unavailable Primary Care Provider Unavailable Encounter Details Date Type Department Care Team Description 08/13/2016 Hospital Encounter HX [facility] Leta Sanchez M.D. 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 [address] [phone] (Wo rk) documented as of this encounter Procedures Procedure Name Priority Date/Time Associated Comments Diagnosis AUTOMATED Routine 08/13/2016 3:55 PM Results f or this DIFFERENTIAL, B CDT procedure ar e in the results section. SEDIMENTATION RATE, B Routine 08/13/2016 3:55 PM Results for this CDT procedure are i n the results section. CBC WITH DIFFERENTIAL, Routine 08/13/2016 3:55 PM Results for this B CDT procedure are i n the results section. BASIC METABOLIC PANEL, Routine 08/13/2016 3:55 PM Results for this S/P CDT procedure are i n the results section. documented in this encounter Results (ABNORMAL) Automated Differential (08/13/2016 3:55 PM CDT) [facility] gist Method Time Signature Absolute 8.02 (H) 1.70 - POWERCHART Neutrophils 7.00 109L Lymphocytes 1.79 0.90 - POWERCHART 2.90 X109L Monocytes 0.77 0.30 - POWERCHART 0.90 X109L Eosinophils 0.04 (L) 0.05 - POWERCHART 0.50 X109L Absolute 0.04 0.00 - POWERCHART Basophil 0.30 X109L Specimen Anatomical Collection Method Collection Time Receive d Time (Source) Location / / Volume Laterality Blood 08/13/2016 3:55 PM 7 3:55 CDT PM CDT Leta Sanchez M.D. LAB BLOOD ADD-ON Performing Organization Address City/[facility]/ZIP Code Phon e Number POWERCHART Sedimentation Rate (08/13/2016 3:55 PM CDT) Analysis Performed At [facility] Time Signature Sedimentation 16 0 - 22 POWERCHART Rate, B MMHR Specimen (Source) Anatomical Collection Method Collection Time Re ceived Time Location / / Volume Laterality Blood 08/13/2016 3:55 PM CDT Leta Sanchez M.D. LAB BLOOD ADD-ON Performing Organization Address City/[facility]/ZIP Code Phon e Number POWERCHART (ABNORMAL) CBC with Differential (08/13/2016 3:55 PM CDT) Analysis Performed At [facility] Time Signature Leukocytes 10.7 (H) 3.5 - 10.5 POWERCHART X109L Erythrocytes 4.76 4.32 - POWERCHART 5.72 T4109X Hemoglobin 13.9 13.5 - POWERCHART 17.5 GDL Hematocrit 41.2 38.8 - POWERCHART 50.0 MCV 86.6 81.0 - POWERCHART 95.0 FL HX RDW 15.5 11.8 - POWERCHART 15.6 Platelet Count 298 150 - 450 POWERCHART X109L Specimen (Source) Anatomical Collection Method Collection Time Re ceived Time Location / / Volume Laterality Blood 08/13/2016 3:55 PM CDT Leta Sanchez M.D. LAB BLOOD ADD-ON Performing Organization Address City/[facility]/ZIP Code Phon e Number POWERCHART (ABNORMAL) BMP (Basic Metabolic Panel) (08/13/2016 3:55 PM CDT) P athologist Signature Sodium, S 137 135 - 145 POWERCHART MMOLL Potassium, S 4.5 3.6 - 5.2 POWERCHART MMOLL Chloride, S 95 (L) 98 - 107 POWERCHART MMOLL CO2 Total 29 22 - 29 POWERCHART MMOLL Comment: Reference ranges have not been established for patients that are <12 months of age. BUN (Blood Urea Nitrogen), S 19 8 - 24 MGDL POWERCHART Creatinine 1.02 0.80 - 1.30 MGDL POWERCHART Calcium, Total, S 9.8 8.8 - 10.3 MGDL POWERC ARIZA Anion Gap 13 7 - 15 MMOLL POWERCHART HXeGFR (MDRD) >60 >=60 [id number] POWERCHART eGFR Black/ >60 >=60 [id number] POWERCHART Glucose 93 70 - 139 MGDL POWERCHART Specimen (Source) Anatomical Collection Method Collection Time Re ceived Time Location / / Volume Laterality Blood 08/13/2016 3:55 PM CDT Leta Sanchez M.D. LAB BLOOD ADD-ON Performing Organization Address City/State/ZIP Code Phon e Number POWERCHART documented in this encounter Visit Diagnoses Not on filedocumented in this encounter Additional Health Concerns Assessment Noted Time PHQ-9 Depression Total Score: 6 06/10/2016 8:13 AM GLASSBLOWER documented as of this encounter
--- OUTSIDE RECORDS SUMMARY | 2022-03-29 07:53 | XMS_ITS | Encounter Summary ---
:1950 Author Organization [facility] Address [address] [place] [address] Care Team Providers Name Role Phone Unavailable Primary Care Provider Unavailable Encounter Details Date Type Department Care Team Description 04/09/2016 Hospital Encounter HX NO MAPPING Darlene Camejo M.D. [address] [place], [place] [phone] (Wo rk) Social History [...] How often do you attend confucianism or orthodoxy services? 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 documented as of this encounter Miscellaneous Notes Miscellaneous - Conversion, Historical Provider Ser - 04/09/2016 11:59 PM ELECTRONIC WARFARE LINGUIST Coding Summary-Paper Based CODING DATE: 04/19/2016 FINAL [facility] STATUS: * Discharged to Home or Self [...] terminology. Coded By: MARGE BROWNING Date Saved: 04/19/2016 11:20 am Source: Proxsys Document Id: [id number] documented in this encounter Plan of Treatment Upcoming Encounters Date Type Specialty Care Team Description 04/12/2022 Office Visit Cardiovascular Disease Simone Gooden AP RN, C.N.P. [address] [phone] (Wo rk) documented as of this encounter Visit Diagnoses Not on filedocumented in this encounter Additional Health Concerns Assessment Noted Time PHQ-9 Depression Total Score: 10 03/11/2016 8:34 AM CS T documented as of this encounter
--- OUTSIDE RECORDS SUMMARY | 2022-03-29 07:53 | XMS_ITS | Encounter Summary ---
:1950 Author Organization [facility] Address [address] [place] [address] Care Team Providers Name Role Phone Unavailable Primary Care Provider Unavailable Encounter Details Date Type Department Care Team Description 04/02/2016 Hospital Encounter HX [facility] Jatinder Camejo M.D. [address] [place] [phone] (Wo rk) Social History Tobacco [...] How often do you attend zoroastrianism or anabaptism services? 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 documented as of this encounter Last Filed Vital Signs Vital Sign Reading Time Taken Comments Blood Pressure 111/47 04/02/2016 10:46 AM COLD MEAT CHEF Pulse 80 04/02/2016 10:46 AM COLD MEAT CHEF Temperature - - Respiratory Rate - - Oxygen Saturation - - Inhaled Oxygen Concentration - - Weight - - Height 173 cm (5' 8.11) 04/02/2016 10:46 AM COLD MEAT CHEF Body Mass Index - - documented in this encounter Medications at Time of Discharge Medication Sig Dispensed Refills Start Date End Date albuterol sulfate 90 Inhale 2 puffs every 0 03/1104/24/2017 mcg/actuation aerosol 4 (four) hours as powdr breath activated needed. documented as of this encounter Nursing Notes Shellie Irwin L.P.N. - 04/02/2016 10:46 AM CST Nurse Only Documentation Nurse Only Documentation Entered On: 04/02/2016 10:50 COLD MEAT CHEF Performed On: 04/02/2016 10:46 COLD MEAT CHEF by SHELLIE IRWIN LPN Nurse Only Documentation Nurse Only Visit Documentation : 3of 6 BCG with interferon-patient states feeling well and only sideeffect was a mild headache SHELLIE IRWIN LPN - 04/02/2016 10:46 COLD MEAT CHEF Vitals/Ht/Wt Temperature Core : 36.1 DegC(Converted to: 97.0 DegF) (LOW) Peripheral Pulse Rate : 80 /min Systolic Blood Pressure : 111 mmHg Diastolic Blood Pressure : 47 mmHg (<LLOW) NIBP Mean : 68 mmHg BP Location : Left upper extremity Blood Pressure Cuff Size : Large Height : 173 cm(Converted to: 5 ft 8 inch(es), 68 inch(es)) SHELLIE IRWIN LPN - 04/02/2016 10:46 COLD MEAT CHEF [facility] Document Id: [id number] COLD MEAT CHEF!12 MEAT CHEF documented in this encounter Plan of Treatment Upcoming Encounters Date Type Specialty Care Team Description 04/12/2022 Office Visit Cardiovascular Disease Simone Gooden AP RN, C.N.P. [address] [phone] (Wo rk) documented as of this encounter Visit Diagnoses Not on filedocumented in this encounter Additional Health Concerns Assessment Noted Time PHQ-9 Depression Total Score: 10 03/11/2016 8:34 AM CS T documented as of this encounter
--- OUTSIDE RECORDS SUMMARY | 2022-03-29 07:53 | XMS_ITS | Encounter Summary ---
:1950 Author Organization [facility] Address [address] [place] [address] Care Team Providers Name Role Phone Unavailable Primary Care Provider Unavailable Encounter Details Date Type Department Care Team Description 08/26/2016 Hospital Encounter HX [facility] Riley Jimenez M.D. [address] [facility], [facility] [address] [phone] Social History Tobacco Use Types Packs/Day [...] How often do you attend christianity or episcopalian services? 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 - 08/26/2016 10:39 AM CDT [id number] CHIEF COMPLAINT/REASON FOR VISIT 1. Followup on chronic medical problems. 2. Discuss test results. HISTORY OF PRESENT ILLNESS Mik is a 66-year-old male who presents to the clinic today for a two month followup from 06/10/2016. He is doing well overall. He caught a cold last week after being caught in the rain. He has cough with nasal congestion and nasal drip. No shortness of breath, chest congestion, dizziness, or lightheadedness. We discussed test results from 08/13/2016. Results were remarkable for WBC 10.7 and sedimentation rate 16. He is currently taking Prednisone daily for polymyalgia rheumatica, but does not take it everyday. At his last visit, we stopped Citalopram and increased Nortriptyline to 50 mg daily at bedtime. He feels good in this regard. He has been keeping busy with work at [employer], fishing, and working out. Hehas been sleeping well. Patient had cystoscopy on 06/10/2016, performed by Dr. Jatinder Camejo, Urologist. There was no recurrent bladder cancer. I reviewed and updated his medication list. We discussed potential side effects. There are no additional questions, concerns, or complaints. MEDICATIONS Albuterol CFC free 90 mcg/inh 2 puffs every 4 hours as needed. Zithromax 250 mg by mouth as directed for 5 days. Hydrochlorothiazide 25 mg by mouth daily in the morning. Lisinopril 40 mg by mouth daily in the morning. Melatonin 10 mg by mouth at bedtime. Nortriptyline 50 mg by mouth at bedtime Prednisone 5 mg by mouth daily in the morning. ALLERGIES Influenza vaccine. Citalopram causing diarrhea. Pravastatin causing myalgia, arthralgia. Wellbutrin causing suicidal thoughts. SYSTEMS REVIEW Please see HPI for pertinent positives, otherwise rest of ROS negative. PAST MEDICAL/SURGICAL HISTORY Reviewed and updated as per the EHR on 08/26/2016. PREVENTIVE SERVICES Reviewed and updated as per the EHR on 08/26/2016. SOCIAL HISTORY Reviewed and updated as per the EHR on 08/26/2016. FAMILY HISTORY Reviewed and updated as per the EHR on 08/26/2016. VITAL SIGNS HEIGHT: 173 cm. WEIGHT: 104.5 kg. BMI: 34.92 kg/m2. TEMP: 36.7 Deg C. PULSE: 88 /min. RESP: 16 /min. O2SAT: 97 %. SYSTOLIC: 136 mmHg. DIASTOLIC: 68 mmHg. PHYSICAL EXAMINATION GENERAL: Patient is sitting. No distress. Able to talk without interruption. HEAD: No facial rash or asymmetry. He has frontal sinus tenderness. EYES: PERRLA. EOMI. No pallor, icterus, or conjunctivitis. He has bilateral cataract surgery. ENT: No nasal congestion, discharge, or bleeding. There is no ear infection or discharge. No mastoidtenderness. Tongue is moist and midline. No oral lesions. LYMPH NODES: No cervical or supraclavicular lymphadenopathy. HEART: No carotid bruit. No JVD. Regular rhythm. There is no S3, gallop, murmur, or thrill. LUNGS: Normal respiratory effort. Normal percussion. He has wheezing/rhonchi, more in right lung posteriorly. ABDOMEN: Moves with respiration. Bowel sounds present. Soft. No rebound tenderness, guarding, or rigidity. No organomegaly. EXTREMITIES: No clubbing, cyanosis, edema, infection, or calf tenderness. IMPRESSION/REPORT/PLAN 1. Cough due to acute bronchitis with frontal sinusitis. He has rhonchi and wheezing on exam. Otherwise, he is stable from a respiratory standpoint. There was no hypoxemia or tachypnea. It was decided to treat with Z-Handy for 5 days. He can take over the counter antihistamine either Zyrtec or Gege or Claritin as needed. I advised him to drink enough fluids. He should contact me if there is no improvement or worsening of symptoms or develops side effects to new prescription medication. 2. Leukocytosis. His white blood cell is just above normal secondary to Prednisone. We will monitor. 3. Anxiety and depression with insomnia. It is improved. Today PHQ-9 score is 0. He was advised to continue current medication. 4. Benign essential hypertension. Blood pressure is controlled. He is stable from a cardiac standpoint. Need to continue sodium controlled diet and current medication. Monitor blood pressure regularly at home. Blood pressure goal is less than 140/90 mmHg. Need to continue cardiovascular risk factors mo dification. 5. Polymyalgia rheumatica. It is controlled with Prednisone. He needs to take Prednisone 5 mg daily.We will gradually taper off 1 mg every month as long as sedimentation rate is ok. We need to check sedimentation rate monthly. 6. Discussed test results. I reviewed test results from 08/13/2016. All questions were answered. The patient will return to the clinic in 3 months for followup with following tests prior to appointment: Fasting BMP, CBC, and Sed rate. This document serves as a record of services personally performed by Dr. Riley Sanchez. It was created on their behalf by Juan Ramos, a trained mobile paramedical examiner. The creation of this record is based on the scribe's personal observations and the provider's statements to them. This document has been checked and approved by the attending provider. Riley Sanchez M.D./arti Electronically Signed By: RILEY SANCHEZ MD On: 08/26/2016 12:59 PM Modified by and Electronically Signed by: RILEY SANCHEZ MD On: 08/26/2016 12:59 PM Source: [facility] MHSDOLBEYNONJORGESYS Document Id: [id number] documented in this encounter Miscellaneous Notes Miscellaneous - Riley Sanchez M.D. - 08/26/2016 11:18 AM CDT Ambulatory Patient Summary [address] [id number] Visit Information Name: CHRISSILASFRANKI AVINA [facility] Number: [id number] Current Date: 08/26/2016 11:18:56 Physicians Attending Provider: RILEY SANCHEZ MD Primary Care Provider: RILEY SANCHEZ MD CHRISSEVEN FABRICE has been given the following list of [...] day 2 to 5. PO As Directed New Routed to [address] [address] hydroCHLOROthiazide (hydroCHLOROthiazide 25 mg oral tablet) 1 [...] pill) daily, 06/10/2016. This is a CHANGE Stop Taking the Following Medications: Medication list as of 08-26-16 11:18 Attention: If you have any medications at [...] Electronically Signed By: RILEY SANCHEZ MD Signed On:26-AUG-2016 11:18:12 Your Allergies & Intolerances Substance Reaction Symptoms [...] Your Upcoming Appointments Date Time Location Provider 10/07/2016 10:30 [facility] Urology Jatinder Camejo MD Attention: Contact [...] if you dont have one. Go to [email or web address] and click on Create Your Account. Then, follow the directions to complete the online form. Youll be asked for your [facility] number which you can find at the top of this document. Your Goals/Additional instructions: Source: [facility] POWERCHART Document Id: [id number] Miscellaneous - Riley Sanchez M.D. - 08/26/2016 11:18 AM CDT Ambulatory Discharge Medication List [address] [id number] Visit Information Name: SEVEN SALAZAR [facility] Number: [id number] Current Date: 08/26/2016 11:18:55 Attending Provider: RILEY SANCHEZ MD Primary Care [...] day 2 to 5. PO As [place] [address] hydroCHLOROthiazide (hydroCHLOROthiazide 25 mg oral tablet) 1 [...] pill) daily, 06/10/2016. This is a CHANGE Stop Taking the Following Medications: Medication list as of 08-26-16 11:18 Attention: If you have any medications at [...] Electronically Signed By: RILEY SANCHEZ MD Signed On:26-AUG-2016 11:18:12 Additional Information: Source: [facility] iJukeboxCHART Document Id: [id number] Keyur Zimmerman L.PCarmen - 08/26/2016 10:51 AM CDT PHQ-9 PHQ-9 Entered On: 08/26/2016 10:51 CDT Performed On: 08/26/2016 10:51 CDT by KEYUR LORENZ LPN PHQ-9 Thoughts that you would be better off /hurting self : Not at all PHQ-9 Calculated Score : 0 KEYUR LORENZ LPN - 08/26/2016 11:23 CDT Little interest or pleasure in doing things [...] restless or fidgety : Not at all Problems make work, home, or dealing with others : Not difficult at all KEYUR LORENZ LPN - 08/26/2016 10:51 CDT Source: [facility] [employer] Document Id: [id number] CDT!4 Keyur Zimmerman L.P.N. - 08/26/2016 10:48 AM CDT Adult Armor Officer Intake/History Adult Armor Officer Intake/History Entered On: 08/26/2016 10:51 CDT Performed On: 08/26/2016 10:48 CDT by KEYUR LORENZ LPN Intake SpO2 : 97 % Oxygen Therapy : Room air KEYUR LORENZ LPN - 08/26/2016 10:52 CDT Chief Complaint : 2 month follow up has had cold and cough times weeks Temperature Core : 36.7 DegC(Converted to: 98.1 DegF) Peripheral Pulse Rate : 88 /min Respiratory Rate : 16 /min Heart Rhythm : Regular Systolic Blood Pressure : 136 mmHg Diastolic Blood Pressure : 68 mmHg NIBP Mean : 91 mmHg BP Location : Left upper extremity Blood Pressure Cuff Size : Large Height : 173 cm(Converted to: 5 ft 8 inch(es), 68 inch(es)) Actual Weight : 104.50 kg(Converted to: 230 lb 6 oz) Weight Source : Standing scale Dosing Weight Clinic : 104.5 kg Clinic BSA : 2.24 Body Mass Index : 34.92 kg/m2 KEYUR LORENZ POSTAL SUPERINTENDENT - 08/26/2016 10:48 CDT General Info Information Given By : Patient Languages : Amharic Is Patient Female and 13-50 no hysterectomy : No KEYUR LORENZ POSTAL SUPERINTENDENT 08/26/2016 10:48 CDT Subjective Pain Symptoms : No KEYUR LORENZ LPN - 08/26/2016 10:48 CDT Dependent Habits Exposure to Tobacco Smoke : Other: patient had quit but is now smoking some now and then Smoking Status : Current every day smoker Tobacco 2A : Yes Tobacco Use/Currently Using : Yes Tobacco Use/Last 30 Days : Yes Tobacco Use/Last 12 months : Yes Type : Cigarettes: Less than 20 per day Tobacco Use/Advised to Quit : Yes KEYUR LORENZ POSTAL SUPERINTENDENT 08/26/2016 10:48 CDT Caffeine Use Grid Caffeine Use : Current Type : Coffee, Tea Frequency : Daily Amount : 2 cup coffee/2 tea daily KEYUR LORENZ LPN - 08/26/2016 10:48 CDT Recreational Drug Use Grid Drug Use : None KEYUR LORENZ LPN 08/26/2016 10:48 CDT Source: [facility] POWERCHART Document Id: [id number] CDT!4 documented in this encounter Plan of Treatment Upcoming Encounters Date Type Specialty Care Team Description 04/12/2022 Office Visit Cardiovascular Disease Simone Gooden AP RN, C.N.P. [address] [phone] (Wo rk) documented as of this encounter Visit Diagnoses Not on filedocumented in this encounter
--- OUTSIDE RECORDS SUMMARY | 2022-03-29 07:53 | XMS_ITS | Encounter Summary ---
:1950 Author Organization [facility] Address [address] [place] [address] Care Team Providers Name Role Phone Unavailable Primary Care Provider Unavailable Encounter Details Date Type Department Care Team Description 04/23/2016 Hospital Encounter HX [facility] Tarik Camejo M.D. [address] [place], [place] [phone] (Wo rk) Social History [...] How often do you attend restorationism or sabianist services? 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 [address] [phone] (Wo rk) documented as of this encounter Procedures Procedure Name Priority Date/Time Associated Comments Diagnosis HXUR % DYSMORPHIC RBC Routine 04/23/2016 9:57 AM Results for this JAVA MOBILE DEVELOPER procedure are i n the results section. URINALYSIS WITH Routine 04/23/2016 9:57 AM Result s for this MICROSCOPIC JAVA MOBILE DEVELOPER procedure are i n the results section. documented in this encounter Results HXUR % DYSMORPHIC RBC (04/23/2016 9:57 AM JAVA MOBILE DEVELOPER) athologist Signature Dysmorphic RBC <=25 <=25 POWERCHART Specimen Anatomical Collection Method Collection Time Receive d Time (Source) Location / / Volume Laterality Urine, First 04/23/2016 9:57 AM 6 9:57 Voided JAVA MOBILE DEVELOPER AM JAVA MOBILE DEVELOPER Jatinder Camejo M.D. LAB HISTORICAL ORDERS Performing Organization Address City/State/ZIP Code Phon e Number POWERCHART (ABNORMAL) Urinalysis, Complete, Includes Microscopic (04/23/2016 9:57 AM JAVA MOBILE DEVELOPER) [facility] gist Method Time Signature HXUR WBC. 31-40 (A) None Seen POWERCHART HPF HXUR RBC. 3-10 (A) None Seen POWERCHART HPF Transitional Occ-3 (A) None Seen POWERCHART Cells HPF Squamous Occ-3 (A) None Seen POWERCHART Epithelial HPF HXUr Color Yellow Yellow POWERCHART Clarity Cloudy (A) Clear POWERCHART Glucose Negative Negative POWERCHART HXBILIRUBIN Negative Negative POWERCHART Ketones, QL(U) Negative Negative POWERCHART Specific 1.010 1.001 - POWERCHART [place], POCT, U 1.035 Comment: Reference Range Specific [place]: 1.000-1.035 pH, POCT, Urine 6.5 POWERCHART Comment: UA pH Reference Range pH: 5.0-8.0 Protein, Ur, Dip Negative Negative POWERCHART Urobilinogen 0.2 0.2 MGDL POWERCHART Comment: Reference Range Urobilinogen: 0.2-1.0 mg/dL HXNITRITE Negative Negative POWERCHART HXBLOOD Small (A) Negative POWERCHART Leukocyte Esterase Small (A) Negative POWERCHART Specimen (Source) Anatomical Collection Method Collection Time Re ceived Time Location / / Volume Laterality Urine, First 04/23/2016 9:57 AM Voided JAVA MOBILE DEVELOPER Jatinder Camejo M.D. LAB URINE ORDERABLES Performing Organization Address City/State/ZIP Code Phon e Number POWERCHART documented in this encounter Visit Diagnoses Not on filedocumented in this encounter Additional Health Concerns Assessment Noted Time PHQ-9 Depression Total Score: 10 03/11/2016 8:34 AM CS T documented as of this encounter
[2022-03-29 07:54] LABS: Chloride* 104 mmol/L (96-114); Potassium* 4.4 mmol/L (3.6-5.1); Sodium* 137 mmol/L (135-149)
--- OUTSIDE RECORDS SUMMARY | 2022-03-29 07:54 | XMS_ITS | Encounter Summary ---
:1950 Author Organization [facility] Address [address] [place] [address] Care Team Providers Name Role Phone Unavailable Primary Care Provider Unavailable Encounter Details Date Type Department Care Team Description 10/31/2015 Hospital Encounter HX [facility] Tamika Camejo M.D. [address] [place] [phone] (Wo rk) Social History Tobacco [...] How often do you attend protestant or church services? 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 - 10/31/2015 10:37 AM CDT CYSTO Document Contains Addenda Addendum by TAMIKA CAMEJO MD on October 31, 2015 10:40:16 CDT Repeat cystoscopy in 3 months; no additional BCG planned at this time. 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 He had 6 weeks of BCG. He had a recurrence resected January 02, 2015 also Grade I, stage Ta. He then had a second 6 weeks of BCG. He is known to have a wide-bore non-obstructing bulbous urethral stricture. INSTRUMENT Flexible cystoscope. ANESTHESIA [...] Mild. Foreign bodies: No evidence of stones, tumors, exophytic lesions or other foreign bodies. Mild scattered inflammation. COMMENTS The procedure was well tolerated by the patient. He was discharged from the office in satisfactory condition. Post-cystoscopy instructions were reviewed with him. IMPRESSION / REPORT / PLAN 1. Bladder cancer, no evidence of active disease 2. Urethral stricture, stable and not-obstructing PLAN: Three more BCG treatments; repeat cystoscopy in 3 months. Electronically Signed By: TAMIKA CAMEJO MD On: 10/31/2015 10:38 AM Source: 5 CUPS and some sugar Document Id: [id number] documented in this encounter Miscellaneous Notes Miscellaneous - Tamika Camejo M.D. - 11/07/2015 7:25 AM CDT Results Notification Document Contains Addenda Addendum by SHELLIE FITZGERALD LPN on November 07, 2015 12:04:10 CDT Patient was informed of normal results. From: TAMIKA CAMEJO MD To: Urology Nurse; Sent: 11/07/2015 07:25:34 CDT ! Show up: 11/07/2015 07:25:34 CDT Subject: Results Notification Actions: Notify patient of results Reminder Comments: fish is neg Results: Date Result Name Value 10/31/2015 14:28 FUROC Result [employer] Negative 10/31/2015 14:28 FUROC Result-[employer] See Comment 10/31/2015 14:28 FUROC Interp-[employer] See Comment 10/31/2015 14:28 FUROC Reason for Ref-[employer] See Comment 10/31/2015 14:28 FUROC Spec-[employer] Varies 10/31/2015 14:28 FUROC Source-[employer] Urine, NOS 10/31/2015 14:28 FUROC Released By-[employer] See Comment Source: [facility] POWERCHART Document Id: [id number] Electronically signed by Rivka [facility] Coal Shooter [id number] at 09/28/2016 5:42 PM CDT Miscellaneous - Kyaw Crawford APRN, R.N. - 11/01/2015 12:47 PM CDT Results Notification Document Contains Addenda Addendum by SHELLIE FITZGERALD LPN on November 07, 2015 12:04:29 CDT Patient was informed of normal results. Addendum by PRUDENCIO LOVE LPN on November 01, 2015 17:25:08 CDT FISH pending Addendum by MONI HUTCHISON CMA on November 01, 2015 13:33:11 CDT lmtcb From: KYAW CRAWFORD APRN, RN To: Urology Nurse; Sent: 11/01/2015 12:47:47 CDT ! Show up: 11/01/2015 12:47:47 CDT Subject: Results Notification Actions: Notify patient of results Reminder Comments: negative cyto Results: Date Result Type Result Name 11/01/2015 12:08 Document - DOC Non-LEAD PROCESS ENGINEER Cytology Source: [facility] MirDeneg Document Id: [id number] Miscellaneous - Shellie Fitzgerald, L.P.N. - 10/31/2015 11:06 AM CDT Adult Flatbed Owner Operator Intake/History Adult Flatbed Owner Operator Intake/History Entered On: 10/31/2015 11:07 CDT Performed On: 10/31/2015 11:06 CDT by SHELLIE FITZGERALD LPN Intake Chief Complaint : history of bladder cancer-patient states no symptoms Temperature Core : 36.6 DegC(Converted to: 97.9 DegF) Peripheral Pulse Rate : 80 /min Systolic Blood Pressure : 112 mmHg Diastolic Blood Pressure : 66 mmHg NIBP Mean : 81 mmHg BP Location : Right upper extremity Blood Pressure Cuff Size : Large Height : 172 cm(Converted to: 5 ft 8 inch(es), 68 inch(es)) SHELLIE FITZGERALD LPN - 10/31/2015 11:06 CDT General Info Information Given By : Patient Preferred Communication Mode : Verbal Languages : Scottish Is Patient Female and 13-50 no hysterectomy : No SHELLIE FITZGERALD LPN - 10/31/2015 11:06 CDT Subjective Pain Symptoms : No SHELLIE FITZGERALD LPN - 10/31/2015 11:06 CDT Dependent Habits Exposure to Tobacco Smoke [...] Yes Alcohol Use : No SHELLIE FITZGERALD LPN - 10/31/2015 11:06 CDT Caffeine Use Grid Caffeine Use : Current Type : Coffee, Tea Frequency : Daily Amount : 2 cup coffee/2 tea daily SHELLIE FITZGERALD INTERNATIONAL BANK MANAGER - 10/31/2015 11:06 CDT Recreational Drug Use Grid Drug Use : None JERI FITZGERALDMERCEDES Manriquez INTERNATIONAL BANK MANAGER - 10/31/2015 11:06 CDT Source: [facility] POWERCHART Document Id: [id number] CDT!37 Miscellaneous - Tamika Camejo M.D. - 10/31/2015 10:39 AM CDT Ambulatory Patient Summary [facility] [address] [place], [place] [phone] Visit Information Name: SEVEN SALAZAR [facility] Number: [id number] Current Date: 10/31/2015 10:39:07 Physicians Attending Provider: TAMIKA CAMEJO MD Primary [...] you have problems taking your medications. Medication/Strength Dose Route Frequency Indications/Special Instructions/Comments/Notes predniSONE (predniSONE 5 mg oral tablet) 2.5 mg Oral once a day (in the morning) with food. Dose decreased on 10/16/2015. albuterol (albuterol CFC free 90 mcg/inh inhalation aerosol) 2 puff(s) Inhalation every 4 hours as needed for Shortness of breath / Wheezing use with spacer chamber hydrochlorothiazide (hydrochlorothiazide 25 mg oral tablet) 25 mg Oral once a day (in the morning) lisinopril (lisinopril 40 mg oral tablet) 40 mg Oral once a day (in the morning) Attention: If you have any medications at [...] Electronically Signed By: TAMIKA CAMEJO MD Signed On:31-OCT-2015 10:39:04 Your Allergies & Intolerances Substance Reaction Symptoms [...] NOS Active Stricture Urethral Postoperative Male Active Your Upcoming Appointments Date Time Location Provider 01/29/2016 08:15 [facility] 02/05/2016 08:00 [facility] Riley Sanchez MD Attention: Contact your [...] if you dont have one. Go to [email or web address] and click on Create Your Account. Then, follow the directions to complete the online form. Youll be asked for your [facility] number which you can find at the top of this document. Your Goals/Additional instructions: Source: [facility] POWERCHART Document Id: [id number] Miscellaneous - Tamika Camejo M.D. - 10/31/2015 10:39 AM CDT Ambulatory Discharge Medication List [facility] [address] [place] [id number] Visit Information Name: CHRISSEVEN FABRICE [facility] Number: [id number] Visit Date: 10/31/2015 10:39:06 Attending Provider: TAMIKA CAMEJO MD Primary Care Provider: RILEY SANCHEZ MD CHRIS SEVEN AVINA has been given the following list of medications: Your Medications It is important to take your medications as directed. Use a pill box or chart to help remind you to take your medications. Please let your doctor or nurse know if you have problems taking your medications. Medication/Strength Dose Route Frequency Indications/Special Instructions/Comments/Notes predniSONE (predniSONE 5 mg oral tablet) 2.5 mg Oral once a day (in the morning) with food. Dose decreased on 10/16/2015. albuterol (albuterol CFC free 90 mcg/inh inhalation aerosol) 2 puff(s) Inhalation every 4 hours as needed for Shortness of breath / Wheezing use with spacer chamber hydrochlorothiazide (hydrochlorothiazide 25 mg oral tablet) 25 mg Oral once a day (in the morning) lisinopril (lisinopril 40 mg oral tablet) 40 mg Oral once a day (in the morning) Attention: If you have any medications at [...] Electronically Signed By: TAMIKA CAMEJO MD Signed On:31-OCT-2015 10:39:04 Additional Information: Source: [facility] POWERCHART Document Id: [id number] documented in this encounter Plan of Treatment Upcoming Encounters Date Type Specialty Care Team Description 04/12/2022 Office Visit Cardiovascular Disease Simone Gooden AP RN, C.N.P. [address] [phone] (Wo rk) documented as of this encounter Procedures Procedure Name Priority Date/Time Associated Comments Diagnosis UROVYSION (R) FOR Routine 10/31/2015 2:28 PM Resu lts for this BLADDER CANCER CDT procedure are in the results section. ZZPATHOLOGY NON-LEAD PROCESS ENGINEER Routine 10/31/2015 9:18 AM Re sults for this CYTOLOGY CDT procedure are i n the results section. documented in this encounter Results UroVysion for Detection of Bladder Cancer, Urine (10/31/2015 2:28 PM CDT) [facility] Method Time Signature HXFUROC Result Negative POWERCHART [facility] HXFUROC See Comment POWERCHART Result-[employer] Comment: RESULT: No evidence of urotheli al [...] and a locus specific probe for 9p21. PDF Report available at: [email or web address] Reason For Referral See Comment POWERCHA RT Comment: RESULT: Evaluate for urothelial carcinoma. HXFUROC Spec-[employer] Varies POWERCHART HXFUROC Source-[employer] Urine, NOS POWERCHAR T HXFUROC Released By-[employer] See Comment POW ERCHART Comment: RESULT: Jillian Lora M.D. Test Performed by: [place] [address] Dry Man: Adiel Toledo II, M.D., Ph.D. Specimen (Source) Anatomical Collection Method Collection Time Re ceived Time Location / / Volume Laterality Urine 10/31/2015 2:28 PM CDT Tamika Camejo M.D. LAB GENETIC TESTING Performing Organization Address City/State/ZIP Code Phon e Number POWERCHART ZZPATHOLOGY NON-LEAD PROCESS ENGINEER CYTOLOGY (10/31/2015 9:18 AM CDT) Specimen (Source) Anatomical Collection Method Collection Time Re ceived Time Location / / Volume Laterality 10/31/2015 9:18 AM CDT Narrative [facility] - 11/01/2015 12:08 PM CDT [facility] [address] [place] [address] ??[phone] Patient Name: SEVEN SALAZAR Patient ID #: [id number] Collected: 10/31/2015 Address: City/State/Zip: [address] [place], [place] ??[id number] Received: Reported: 11/01/2015 11/01/2015 Soc. Sec. #: ?/Age/Sex 1950 (Age: 65) ??M Physician(s): A GRANT Copy To: ? [facility] ?? [id number] [address] [facility], ??[place] ??[address] CYTOPATHOLOGY NON-LEAD PROCESS ENGINEER REPORT FINAL CYTOLOGIC DIAGNOSIS Urine-VOIDED: NEGATIVE FOR MALIGNANCY SATISFACTORY SPECIMEN FOR EVALUATION. Electronically Signed By [facility]/11/01/2015 YUNI SARMIENTO M.D. AM Anyi PINO(ASCP) SPECIMEN(S) RECEIVED: Urine-VOIDED CLINICAL HISTORY: GROSS DESCRIPTION: 2 CYTOSPINS PREPARED FROM 40 ML ALCOHOL- FIXED, CLEAR YELLOW FLUID. Tamika Camejo M.D. LAB PATHOLOGY/CYTOLOGY ORDER IRVIN Performing Organization Address City/State/ZIP Code Phon e Number [facility] documented in this encounter Visit Diagnoses Not on filedocumented in this encounter Additional Health Concerns Assessment Noted Time PHQ-9 Depression Total Score: 17 01/24/2015 11:26 AM C DT documented as of this encounter
--- OUTSIDE RECORDS SUMMARY | 2022-03-29 07:54 | XMS_ITS | Encounter Summary ---
:1950 Author Organization [facility] Address [address] [place] [address] Care Team Providers Name Role Phone Unavailable Primary Care Provider Unavailable Encounter Details Date Type Department Care Team Description 03/19/2016 Hospital Encounter HX [facility] Jatinder Camejo M.D. [address] [place] [phone] (Wo rk) Social History Tobacco [...] week 04/16/2019 How often do you attend confucianist or confucianist services? 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 documented as of this encounter Last Filed Vital Signs Vital Sign Reading Time Taken Comments Blood Pressure 132/78 03/19/2016 10:30 AM SCHOOL BASED THERAPIST Pulse 80 03/19/2016 10:30 AM SCHOOL BASED THERAPIST Temperature - - Respiratory Rate - - Oxygen Saturation - - Inhaled Oxygen Concentration - - Weight - - Height 173 cm (5' 8.11) 03/19/2016 10:30 AM SCHOOL BASED THERAPIST Body Mass Index - - documented in this encounter Medications at Time of Discharge Medication Sig Dispensed Refills Start Date End Date albuterol sulfate 90 Inhale 2 puffs every 0 03/1104/24/2017 mcg/actuation aerosol 4 (four) hours as powdr breath activated needed. documented as of this encounter Nursing Notes Shellie Irwin L.P.N. - 03/19/2016 10:30 AM CST Nurse Only Documentation Nurse Only Documentation Entered On: 03/19/2016 10:35 SCHOOL BASED THERAPIST Performed On: 03/19/2016 10:30 SCHOOL BASED THERAPIST by SHELLIE IRWNI LPN Nurse Only Documentation Nurse Only Visit Documentation : 1 of 6 BCG with interfon-patient feels okay and no problems SHELLIE IRWIN LPN - 03/19/2016 10:30 SCHOOL BASED THERAPIST Vitals/Ht/Wt Temperature Core : 35.8 DegC(Converted to: 96.4 DegF) (LOW) Peripheral Pulse Rate : 80 /min Systolic Blood Pressure : 132 mmHg Diastolic Blood Pressure : 78 mmHg NIBP Mean : 96 mmHg BP Location : Right upper extremity Blood Pressure Cuff Size : Regular Height : 173 cm(Converted to: 5 ft 8 inch(es), 68 inch(es)) SHELLIE IRWIN LPN - 03/19/2016 10:30 SCHOOL BASED THERAPIST [facility] POWERCHART Document Id: [id number] SCHOOL BASED THERAPIST!12 OL BASED THERAPIST documented in this encounter Plan of Treatment Upcoming Encounters Date Type Specialty Care Team Description 04/12/2022 Office Visit Cardiovascular Disease Simone Gooden AP RN, C.N.P. [address] [phone] ( rk) documented as of this encounter Visit Diagnoses Not on filedocumented in this encounter Additional Health Concerns Assessment Noted Time PHQ-9 Depression Total Score: 10 03/11/2016 8:34 AM CS T documented as of this encounter
--- OUTSIDE RECORDS SUMMARY | 2022-03-29 07:54 | XMS_ITS | Encounter Summary ---
:1950 Author Organization [facility] Address [address] [place] [address] Care Team Providers Name Role Phone Unavailable Primary Care Provider Unavailable Encounter Details Date Type Department Care Team Description 02/06/2016 Hospital Encounter HX [facility] Tamika Camejo M.D. [address] [place] [phone] (Wo rk) Social History Tobacco [...] How often do you attend congregation or gnosticist services? 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 - 02/06/2016 9:41 AM CDT CYSTO & ANALI CHIEF COMPLAINT / REASON FOR VISIT CYSTOSCOPY [...] cystoscope was advanced into the urethra. FINDINGS Prostate ANALI: 35-40 grams, smooth, symmetric, no nodules. No able to feel seminal vesicles. Meatus: Normal. Urethra: A wide-bore non-obstructing bulbous [...] stones, or other foreign bodies. Mild scattered inflammation. Concerning area left lateral wall, 2-2.5 cm in greatest diameter, a few small surrounding lesions too. COMMENTS The procedure was well tolerated by the patient. He was discharged from the office in satisfactory condition. Post-cystoscopy instructions were reviewed with him. IMPRESSION / REPORT / PLAN 1. Bladder cancer, possible evidence of active disease 2. Urethral stricture, stable and not-obstructing PLAN: Proceed with biopsies in the OR. Return post biopsies to review pathology. Electronically Signed By: TAMIKA CAMEJO MD On: 02/06/2016 09:44 AM [facility] Document Id: [id number] documented in this encounter Miscellaneous Notes Miscellaneous - Tamika Camejo M.D. - 02/06/2016 9:41 AM CDT Ambulatory Patient Summary [facility] [address] [facility] [place] [phone] Visit Information Name: SEVEN SALAZAR [facility] Number: [id number] Current Date: 02/06/2016 09:41:13 Physicians Attending Provider: TAMIKA CAMEJO MD Primary Care Provider: RILEY RIVERA MD CHRIS SEVEN AVINA has been given [...] breath / Wheezing use with spacer chamber DULoxetine (DULoxetine 20 mg oral delayed release capsule) 1 cap, Oral, once a day hydrochlorothiazide (hydrochlorothiazide 25 mg oral tablet) 1 Tablet(s), Oral, once a day (in the morning) lisinopril (lisinopril 40 mg oral tablet) 1 Tablet(s), Oral, once a day (in the morning) Stop Taking the Following Medications: Medication list as of 02-06-16 09:41 Attention: If you have any medications at [...] Electronically Signed By: TAMIKA CAMEJO MD Signed On:06-FEB-2016 09:41:09 Your Allergies & Intolerances Substance Reaction Symptoms [...] Kidney Right Benign per Ultrasound 03/17/2015 Active Your Upcoming Appointments Date Time Location Provider 03/04/2016 09:15 [facility] 03/11/2016 09:15 [facility] Laura DEWEY, [place]unt Attention: Contact your local Clinic if further [...] if you dont have one. Go to [email or web address] and click on Create Your Account. Then, follow the directions to complete the online form. Youll be asked for your [facility] number which you can find at the top of this document. Your Goals/Additional instructions: Source: [facility] POWERCHART Document Id: [id number] Miscellaneous - Tamika Camejo M.D. - 02/06/2016 9:41 AM CDT Ambulatory Discharge Medication List [address] [phone] Visit Information Name: SEVEN SALAZAR [facility] Number: [id number] Current Date: 02/06/2016 09:41:11 Attending Provider: TAMIKA CAMEJO MD Primary Care [...] breath / Wheezing use with spacer chamber DULoxetine (DULoxetine 20 mg oral delayed release capsule) 1 cap, Oral, once a day hydrochlorothiazide (hydrochlorothiazide 25 mg oral tablet) 1 Tablet(s), Oral, once a day (in the morning) lisinopril (lisinopril 40 mg oral tablet) 1 Tablet(s), Oral, once a day (in the morning) Stop Taking the Following Medications: Medication list as of 02-06-16 09:41 Attention: If you have any medications at [...] Electronically Signed By: TAMIKA CAMEJO MD Signed On:06-FEB-2016 09:41:09 Additional Information: Source: [facility] POWERCHART Document Id: [id number] Miscellaneous - Shellie Irwin, L.P.N. - 02/06/2016 9:14 AM CDT Adult Manufacturing Engineer Automotive Intake/History Adult Manufacturing Engineer Automotive Intake/History Entered On: 02/06/2016 9:19 CDT Performed On: 02/06/2016 9:14 CDT by SHELLIE IRWIN LPN Intake Chief Complaint : cystoscopy-history of bladder cancer patient states no problems Temperature Core : 36.7 DegC(Converted to: 98.1 DegF) Peripheral Pulse Rate : 78 /min Systolic Blood Pressure : 122 mmHg Diastolic Blood Pressure : 76 mmHg NIBP Mean : 91 mmHg BP Location : Right upper extremity Blood Pressure Cuff Size : Large Height : 174 cm(Converted to: 5 ft 9 inch(es), 69 inch(es)) SHELLIE IRWIN LPN - 02/06/2016 9:14 CDT General Info Information Given By : Patient Preferred Communication Mode : Verbal Languages : Kiswahili Is Patient Female and 13-50 no hysterectomy : No SHELLIE IRWIN LPN - 02/06/2016 9:14 CDT Subjective Pain Symptoms : No SHELLIE IRWIN LPN - 02/06/2016 9:14 CDT Dependent Habits Exposure to Tobacco Smoke [...] Yes Alcohol Use : No SHELLIE IRWIN [facility] - 02/06/2016 9:14 CDT Caffeine Use Grid Caffeine Use : Current Type : Coffee, Tea Frequency : Daily Amount : 2 cup coffee/2 tea daily SHELLIE IRWIN [facility] - 02/06/2016 9:14 CDT Recreational Drug Use Grid Drug Use : None SHELLIE IRWIN [facility] - 02/06/2016 9:14 CDT [facility] Document Id: [id number] CDT!37 documented in this encounter Plan of Treatment Upcoming Encounters Date Type Specialty Care Team Description 04/12/2022 Office Visit Cardiovascular Disease Simone Gooden AP RN, C.N.P. [address] [phone] (Wo rk) documented as of this encounter Visit Diagnoses Not on filedocumented in this encounter Additional Health Concerns Assessment Noted Time PHQ-9 Depression Total Score: 12 02/05/2016 8:08 AM CD T documented as of this encounter
--- OUTSIDE RECORDS SUMMARY | 2022-03-29 07:54 | XMS_ITS | Encounter Summary ---
:1950 Author Organization [facility] Address [address] [place] [address] Care Team Providers Name Role Phone Unavailable Primary Care Provider Unavailable Encounter Details Date Type Department Care Team Description 07/18/2015 Hospital Encounter HX [facility] Leta Sanchez M.D. [address] [facility] [address] [phone] Social History Tobacco Use Types Packs/Day [...] How often do you attend confucianist or restorationist services? 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 - 07/19/2015 9:36 AM CDT Results Notification From: ISAK GEORGE MD To: [facility] Nurse; Sent: 07/19/2015 09:36:10 CDT ! Show up: 07/19/2015 09:36:10 CDT Subject: Results Notification Actions: Notify patient of results Reminder Comments: ok Results: Date Result Name Value Ref Range 07/18/2015 09:41 HCV Ab [facility] Negative (Negative - ) Source: [facility] POWERCHART Document Id: [id number] Electronically signed by Conversion, [facility] Special Assets Officer [id number] at 09/28/2016 4:24 PM CDT Miscellaneous - Isak George M.D. - 07/18/2015 5:40 PM CDT Results Notification Document Contains Addenda Addendum by KEYUR ALANIZ LPN on July 19, 2015 08:50:56 CDT called with results From: ISAK GEORGE MD To: [facility] Nurse; Sent: 07/18/2015 17:40:12 CDT ! Show up: 07/18/2015 17:40:12 CDT Subject: Results Notification Actions: Notify patient of results Reminder Comments: OK Results: Date Result Name Ind Value Ref Range 07/18/2015 09:41 Sodium Lvl 140 mmol/L (135 - 145) 07/18/2015 09:41 Potassium Lvl 4.6 mmol/L (3.6 - 5.2) 07/18/2015 09:41 Chloride (L) 96 mmol/L (98 - 107) 07/18/2015 09:41 CO2 (H) 32 mmol/L (22 - 29) 07/18/2015 09:41 AGAP 12 mmol/L (7 - 15) 07/18/2015 09:41 Glucose Lvl 111 mg/dL (70 - 139) 07/18/2015 09:41 Creatinine 0.9 mg/dL (0.8 - 1.3) 07/18/2015 09:41 EGFR (MDRD) >60 mL/min/1.73m2 (>=60 - ) 07/18/2015 09:41 EGFR (MDRD) >60 mL/min/1.73m2 (>=60 - ) 07/18/2015 09:41 BUN 17 mg/dL (8 - 24) 07/18/2015 09:41 Calcium Lvl 10.2 mg/dL (8.8 - 10.3) 07/18/2015 09:41 Sed Rate 15 mm/hr (0 - 22) Source: [facility] POWERCHART Document Id: [id number] Electronically signed by Conversion, [facility] Special Assets Officer [id number] at 09/28/2016 4:24 PM CDT documented in this encounter Plan of Treatment Upcoming Encounters Date Type Specialty Care Team Description 04/12/2022 Office Visit Cardiovascular Disease Simone Gooden AP RN, C.N.P. [address] [phone] (Wo rk) documented as of this encounter Procedures Procedure Name Priority Date/Time Associated Comments Diagnosis HCV AB SCRN W/REFLEX Routine 07/18/2015 9:41 AM R esults for this TO HCV PCR, S CDT procedure are in the results section. SEDIMENTATION RATE, B Routine 07/18/2015 9:41 AM Results for this CDT procedure are i n the results section. BASIC METABOLIC PANEL, Routine 07/18/2015 9:41 AM Results for this S/P CDT procedure are i n the results section. documented in this encounter Results Sedimentation Rate (07/18/2015 9:41 AM CDT) Analysis Performed At Patho logist Time Signature Sedimentation 15 0 - 22 POWERCHART Rate, B MMHR Specimen (Source) Anatomical Collection Method Collection Time Re ceived Time Location / / Volume Laterality Blood 07/18/2015 9:41 AM CDT Leta Sanchez M.D. LAB BLOOD ADD-ON Performing Organization Address City/State/ZIP Code Phon e Number POWERCHART HCV Ab w/Reflex to HCV PCR, S (medicare) (07/18/2015 9:41 AM CDT) P athologist Signature HXHCV Ab Negative Negative POWERCHART [facility] Comment: Quimxw-hj-ybxpjo ratio is <1.00. Test Performed by: [address] [address] Credit Risk Analytics Manager: Adiel Toledo II, M.D., Ph.D. Specimen (Source) Anatomical Collection Method Collection Time Re ceived Time Location / / Volume Laterality Blood 07/18/2015 9:41 AM CDT Leta Sanchez M.D. LAB MICROBIOLOGY - BLOOD ORD ERABLES Performing Organization Address City/State/ZIP Code Phon e Number POWERCHART (ABNORMAL) BMP (Basic Metabolic Panel) (07/18/2015 9:41 AM CDT) P athologist Signature Sodium, S 140 135 - 145 POWERCHART [facility] Potassium, S 4.6 3.6 - 5.2 POWERCHART [facility] Chloride, S 96 (L) 98 - 107 POWERCHART [facility] CO2 Total 32 (H) 22 - 29 POWERCHART [facility] BUN (Blood Urea 17 8 - 24 POWERCHART Nitrogen), S MGDL Creatinine 0.9 0.8 - 1.3 POWERCHART MGDL Calcium, Total, 10.2 8.8 - 10.3 POWERCHART S MGDL Anion Gap 12 7 - 15 POWERCHART [facility] HXeGFR (MDRD) >60 >=60 POWERCHART [id number] eGFR >60 >=60 POWERCHART Black/ [id number] [place] Glucose 111 70 - 139 POWERCHART MGDL Specimen (Source) Anatomical Collection Method Collection Time Re ceived Time Location / / Volume Laterality Blood 07/18/2015 9:41 AM CDT Leta Sanchez M.D. LAB BLOOD ADD-ON Performing Organization Address City/State/ZIP Code Phon e Number POWERCHART documented in this encounter Visit Diagnoses Not on filedocumented in this encounter Additional Health Concerns Assessment Noted Time PHQ-9 Depression Total Score: 17 01/24/2015 11:26 AM C DT documented as of this encounter
--- OUTSIDE RECORDS SUMMARY | 2022-03-29 07:54 | XMS_ITS | Encounter Summary ---
:1950 Author Organization [facility] Address [address] [place] [address] Care Team Providers Name Role Phone Unavailable Primary Care Provider Unavailable Encounter Details Date Type Department Care Team Description 07/18/2015 Hospital Encounter HX [facility] Riley Villegas M.D. [address] [phone] Social History Tobacco Use Types Packs/Day [...] How often do you attend yarsanism or rastafarian services? 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 - 07/18/2015 8:56 AM CDT *General Message Document Contains Addenda Addendum by JOHNY GEORGE MD on July 18, 2015 17:48:54 CDT From: JOHNY GEORGE MD To: BELINDA LEROY [facility]; Sent: 07/18/2015 17:48:54 CDT Subject: RE: *General Message Second pressure has improved. From: BELINDA LEROY [facility] To: RILEY RIVERA MD; Sent: 07/18/2015 08:56:49 CDT Subject: *General Message Patient was in for B/P check. B/P 142/71 Pulse 86 Five minutes later. B/P 138/65 Pulse 85 [facility] Document Id: [id number] Electronically signed by Rivka [facility] Mackay [id number] at 09/28/2016 4:24 PM CDT Miscellaneous - Belinda Leroy, C.M.A. - 07/18/2015 8:54 AM CDT Ambulatory Vitals Height Weight Ambulatory Vitals Height Weight Entered On: 07/18/2015 8:55 CDT Performed On: 07/18/2015 8:54 CDT by BELINDA LEROY [facility] Vitals/Ht/Wt Peripheral Pulse Rate : 85 /min Systolic Blood Pressure : 138 mmHg Diastolic Blood Pressure : 65 mmHg NIBP Mean : 89 mmHg BP Location : Left upper extremity Blood Pressure Cuff Size : Regular Height : 172 cm(Converted to: 5 ft 8 inch(es), 68 inch(es)) BELINDA LEROY [facility] - 07/18/2015 8:54 CDT [facility] Document Id: [id number] CDT!9 Miscellaneous - Belinda Leroy, C.M.A. - 07/18/2015 8:51 AM CDT Ambulatory Vitals Height Weight Ambulatory Vitals Height Weight Entered On: 07/18/2015 8:51 CDT Performed On: 07/18/2015 8:51 CDT by BELINDA LEROY CMA Vitals/Ht/Wt Peripheral Pulse Rate : 86 /min Systolic Blood Pressure : 142 mmHg (HI) Diastolic Blood Pressure : 71 mmHg NIBP Mean : 95 mmHg BP Location : Left upper extremity Blood Pressure Cuff Size : Regular Height : 172 cm(Converted to: 5 ft 8 inch(es), 68 inch(es)) BELINDA LEROY CMA - 07/18/2015 8:51 CDT Source: [employer] Document Id: [id number] CDT!9 documented in this encounter Plan of Treatment Upcoming Encounters Date Type Specialty Care Team Description 04/12/2022 Office Visit Cardiovascular Disease Simone Gooden AP RN, C.N.P. [address] [phone] (Wo rk) documented as of this encounter Visit Diagnoses Not on filedocumented in this encounter Additional Health Concerns Assessment Noted Time PHQ-9 Depression Total Score: 17 01/24/2015 11:26 AM C DT documented as of this encounter
--- OUTSIDE RECORDS SUMMARY | 2022-03-29 07:54 | XMS_ITS | Encounter Summary ---
:1950 Author Organization [facility] Address [address] [place] [address] Care Team Providers Name Role Phone Unavailable Primary Care Provider Unavailable Encounter Details Date Type Department Care Team Description 02/05/2016 Hospital Encounter HX [facility] Riley Jimenez M.D. [address] [facility], [facility] [address] [phone] Social History Tobacco Use Types Packs/Day [...] How often do you attend confucianism or episcopal services? 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 - 02/05/2016 7:56 AM CDT [id number] CHIEF COMPLAINT/REASON FOR VISIT 1. Medicare annual wellness visit. 2. Review chronic medical problems. 3. Discuss test results. 4. Renew medication. HISTORY OF PRESENT ILLNESS Mik is a 65-year-old male who presents to the clinic today for the above complaints. His last physical exam was done on 01/24/2015. We discussed test results from 01/29/2016. Results were remarkable for fasting glucose 90, PSA 2.6, and sedimentation rate 41. He has been having numb, cold, and puffy feeling feet at night. It is a pin and needle sensation andis worse after walking a lot that day. It is occasionally achy. He has had these symptoms intermittently for the last 60 days. He drinks alcohol once a week. He continues to smoke, 0.5 pack of cigarettes a day. Patient has history of bladder cancer, status post resection in 2009 and 2014 and BCG treatment x 2.He has been followed by Dr. Jatinder Camejo, Urologist. He had cystoscopy on 10/31/2015. No evidence of active disease at that time. Need to repeat cystoscopy tomorrow. He denies any hematuria. He goes the bathroom twice at night. He denies any problems with urine flow. He has been trying to drink more water. His sedimentation rate is high. He has not received BCG treatment for a while. He denies coughing up phlegm. He mentioned that he often has allergy-like symptoms during this time of year. He denies any sneezing or itchy eyes. He quit taking Prednisone 01/29/2016, as well as his Hydrochlorothiazide because he thought he only had to take it with Prednisone. There were no side effects from medications. His PHQ-9 score is 12 today. We discussed question #9. He denies any suicidal intention or plan. He continues to have stress. We discussed medications (Cymbalta) and side effects. He saw a psychiatrista long time ago. When he starts to feel down, he is able to talk to a friend for support. He noticesthat physical exercise and working out seems to help him feel better. Patient mentioned that he and his children do not keep in touch as much as they should for the last 7 years. He has an adopted daughter that lives in [place] that takes care of him frequently. Patient has history of right kidney cyst per ultrasound on 03/17/2015. It is benign. He takes Lisinopril for hypertension. He denies any cough or tongue/lip swelling. He denies any chest pain or shortness of breath. Patient has history of gastroesophageal reflux disease. He does not need to take over the counter Tums. He denies any acid reflux. He has history of hyperlipidemia. He is not on statin therapy. He did not tolerate Pravastatin in the past. He has lost 10 kg since May. We discussed Medicare annual wellness visit preventive screening services. He answered patient screening questionnaire and safety screen. Mini Cog scoring was done. It is normal. Please see copies scanned into EHR. I reviewed and updated patients medical and surgical history, family history, immunizations, allergies, and medications. His last colonoscopy was done on 11/26/2011. He is low risk. There is no family history of colon cancer. No personal history of colon polyps. Need to repeat screening colonoscopy after 11/26/2021. He has not had eye exam for a while. No family history of glaucoma. He has dentures. There are no additional questions, concerns, or complaints. MEDICATIONS Albuterol CFC free 90 mcg/inh 2 puffs every 4 hours as needed. Duloxetine 20 mg by mouth daily. Hydrochlorothiazide 25 mg by mouth daily in the morning. Lisinopril 40 mg by mouth daily in the morning. Prednisone 2.5 mg by mouth daily in the morning. [...] esophagogastroduodenoscopy, 11/25 1012. Status post colonoscopy, 11/26/2011. Repeat in 10 years. Status post right shoulder arthroplasty, 05/07/2013. Status post excision of skin lesion on dermal nevus on left cheek/nasolabial fold, 06/04/2013. PREVENTATIVE SERVICES Colonoscopy: 11/26/2011. PSA: 01/29/2016. Pneumovax: 02/05/2016. Prevnar: 01/24/2015. Tetanus booster: 02/12/2010. Influenza: Declined. SOCIAL HISTORY He is single. He lives alone. He has 7 children. He has one adopted daughter that lives in [place]. He smokes cigarettes, but wants to quit. He denies drug abuse. He drinks alcohol once a week. He is physically active. He works at [employer] in [place], [place]. FAMILY HISTORY Asthma in brother. Father had liver, lung, and pancreas cancer. Lung cancer in sister. Mother has cataract and glaucoma. Hearing loss in father. Hypertension in mother and brother. Myocardial infarction in older brother. Parkinsons disease in father. No family history of colon cancer or glaucoma. VITAL SIGNS HEIGHT: 174 cm. WEIGHT: 99 kg. BMI: 32.7 kg/m2. PULSE: 72 /min. RESP: 16 /min. SYSTOLIC: 136 mmHg. DIASTOLIC: 60 mmHg. PHYSICAL EXAMINATION GENERAL: Patient is sitting. No distress. Able to talk without interruption. SKIN: No rash, bruise, or nodules. HEAD: No facial rash, asymmetry, or sinus tenderness. EYES: PERRLA. EOMI. No pallor, icterus, or conjunctivitis. He had bilateral cataract extraction. ENT: No nasal congestion, discharge, or bleeding. There is no ear infection or discharge. No mastoidtenderness. Tongue is moist and midline. No oral lesions. LYMPH NODES: No cervical, supraclavicular, axillary, inguinal, or femoral lymphadenopathy. THYROID: No thyromegaly. No thyroid thrill or bruit. BREASTS: No nipple discharge or retraction. No palpable breast mass or tenderness. PERIPHERAL VESSELS: Good radial, femoral, and pedal pulses except for slight decreased dorsalis pedis bilaterally. HEART: No carotid bruit. No JVD. Regular rhythm. There is no S3, gallop, murmur, or thrill. LUNGS: Normal respiratory effort. There is rhonchi in left lung, anteriorly and posteriorly. ABDOMEN: Moves with respiration. Bowel sounds present. Soft. No rebound tenderness, guarding, or rigidity. No organomegaly. GENITALIA: No urethral discharge. Normal testicles. No hydrocele or hernia. Status post circumcision. SPINE: No scoliosis or kyphosis. No spinous tenderness or mass. JOINTS: No joint swelling or deformity. No decreased range of motion. EXTREMITIES: No clubbing, cyanosis, edema, infection, or calf tenderness. GAIT: No abnormal gait. MENTAL: Alert and oriented x 3. Normal mood and affect. NEURO: Intact cranial nerves. Intact sensory and motor. 2+ DTRs throughout. Equal on both sides. IMPRESSION/REPORT/PLAN 1. Medicare annual wellness visit. We discussed Medicare annual wellness visit preventive screening services. He answered patient screening questionnaire and safety screen. Mini Cog scoring was done. It is normal. Please see copies scanned into EHR. He needs to eat healthy diet and exercise regularly to maintain healthy body weight and BMI. Today BMI is 32.7 kg/m2. Today PHQ-9 score is 12. He declined flu shot today. He was given Pneumovax 23 today. Advised to see eye doctor once a year and dentist every six months. He needs health maintenance exam every year. 2. Depression. It is not controlled. Today PHQ-9 score is 12. He has no suicidal plan or intention. After discussion, it was decided to start generic Cymbalta (Duloxetine) 20 mg daily. He should contact me if there is no improvement or worsening of symptoms or develops side effects to new prescriptionmedication. We will recheck his status in 1 month. 3. Bilateral foot pain with feet numbness, most likely due to peripheral neuropathy. He will take Cymbalta as above. He should contact me if he has any side effects to new medication. We will check B12and folate level in 1 month. 4. Bladder cancer, grade 1 of 3 urothelial carcinoma. He has no symptoms. He will follow with Dr. Camejo for cystoscopy tomorrow, 02/06/2016. He needs to quit smoking. Prostate rectal exam was skipped today. He was advised to discuss with Dr. Cameoj whether doing cystoscopy is enough for prostate evaluation. 5. Urethra stricture, non-obstructing. He has no problems with urination. He is followed by Dr. Owens, Urologist. 6. Hyperlipidemia. Patient was advised to continue low cholesterol, low fat diet and regular exercise. Need to check fasting lipid profile every year. 7. Benign essential hypertension. Blood pressure is controlled. He is stable from a cardiac standpoint. Need to continue sodium controlled diet and current dose of Lisinopril. Blood pressure goal is less than 140/90 mmHg. Need to continue cardiovascular risk factors modification. 8. Gastroesophageal reflux disease. It is controlled without medication. Patient will continue antireflux measures. 9. Polymyalgia rheumatica. He stopped taking Prednisone. It is controlled currently. His symptoms should also be improved with taking Cymbalta. 10. Benign right kidney cyst per ultrasound 03/17/2015. He is asymptomatic. We will monitor clinically. 11. Elevated sedimentation rate. He has no symptoms. It could be partly due to recent Prednisone therapy. Need to recheck sedimentation rate in 1 month. 12. Abnormal lung exam. He has congestion in left lung per todays physical exam. Because of history of smoking, we will check chest x-ray today and follow these results. He needs to drink plenty of fluids and quit smoking. 13. Tobacco abuse. He is smoking 10 cigarettes a day. I recommended smoking cessation. He is not ready yet. We discussed complications. 14. Discussed test results. I reviewed test results from 01/29/2016. All questions were answered. 15. Renew medications. The following medications were renewed: Lisinopril. Todays studies: Chest x-ray. Patient will be notified with results & recommendations. The patient will return to the clinic in 1 month for followup after starting Cymbalta. He needs B12,Folate, and Sedimentation rate blood tests prior to this appointment. This document serves as a record of services personally performed by Dr. Riley Sanchez. It was created on their behalf by Juan Ramos, a trained lpn medical assistant. The creation of this record is based on the scribe's personal observations and the provider's statements to them. This document has been checked and approved by the attending provider. Riley Sanchez M.D./arti Electronically Signed By: RILEY SANCHEZ MD On: 03/01/2016 12:22 PM Modified by and Electronically Signed by: RILEY SANCHEZ MD On: 03/01/2016 12:21 PM Source: [facility] MHSDOLBEYNONRADSYS Document Id: [id number] documented in this encounter Nursing Notes Chucky Duncan L.P.NBhavesh - 02/15/2016 8:55 AM CDT Pre-op information faxed to [employer] Patient's pre-op information faxed to the [facility]. Information included: dictation, sleepapnea screening from , lab work from 01/29/2016, and chest x-ray from 02/05/2016. Electronically Signed By: CHUCKY DUNCAN LPN On: 02/15/2016 08:56 AM Source: [facility] POWERCHART Document Id: [id number] Riley Sanchez M.D. - 02/05/2016 9:21 AM CDT Ambulatory Patient Education The following Patient Education Materials have been given to the patient: Patient Education Materials: Source: [facility] POWERCHART Document Id: [id number] documented in this encounter Miscellaneous Notes Miscellaneous - Riley Sanchez M.D. - 02/08/2016 4:03 PM CDT CXR 02/05/2016 Document Contains Addenda Addendum by CHUCKY DUNCAN LPN on February 09, 2016 09:58:18 CDT Patient notified of results. Addendum by SU SINGH on February 09, 2016 09:11:27 CDT Pt called back unable to reach nurse please call him back. Addendum by CHUCKY DUNCAN LPN on February 08, 2016 16:20:04 CDT Left message for patient to return my call. From: RILEY SANCHEZ MD To: [facility] Nurse; Sent: 02/08/2016 16:03:55 CDT Show up: 02/08/2016 16:03:00 CDT Subject: CXR 02/05/2016 Actions: Notify patient of results, Notify Patient of Future Order Please call. CXR showed postop changes both shoulders, moderately prominent degenerative changes of the thoracic,upper lumbar spine. Chest otherwise negative for acute findings. Result type: XR Chest 2 Views Result date: February 05, 2016 9:45 CDT Result status: Auth (Verified) Result title: XR Chest 2 Views Performed by: GIL LOUISE MD on February 05, 2016 11:27 CDT Verified by: GIL LOUISE MD on February 05, 2016 11:27 CDT Encounter info: [id number], [facility], Clinic Outpatient, 02/05/2016 - * Final Report * Reason For Exam Tobacco use. Rhonchi in left lung. No respiratory symptoms. Report EXAM: XR Chest 2 Views AGE: [age] years old. GENDER: Male. INDICATION: Tobacco use. Rhonchi in left lung. No respiratory symptoms. COMPARISON: February 17, 2014. FINDINGS: Postop changes both shoulders. Moderately prominent degenerative changes of the thoracic, upper lumbar spine. Mild eventration of the central aspect of the right hemidiaphragm. Chest otherwise negative for acute findings. IMPRESSION: Please see above dictation. Source: [facility] POWERCHART Document Id: [id number] Miscellaneous - Riley Sanchez M.D. - 02/05/2016 9:22 AM CDT Ambulatory Patient Summary [address] [place] [id number] Visit Information Name: SEVEN SALAZAR [facility] Number: [id number] Current Date: 02/05/2016 09:22:09 Physicians Attending Provider: RILEY SANCHEZ MD Primary Care Provider: RILEY SANCHEZ MD SEVEN [facility]AZ[facility] FABRICE has been given the following list of follow-up instructions, medication list, and patient education materials: Follow-up Instructions With: Address: When: Will start Duloxetine for numbness in feet and depression. Call me if you notice side effects. See you in 1 month for follow up. We need to do blood tests before appointment. Your Medications Here is a list of [...] capsule) 1 cap, Oral, once a day New Routed to [address] [place], [place] [id number] hydrochlorothiazide (hydrochlorothiazide 25 mg oral tablet) 1 Tablet(s), Oral, once a day (in the morning) Routed to [facility] [address] [place], [place] [id number] lisinopril (lisinopril 40 mg oral tablet) 1 Tablet(s), Oral, once a day (in the morning) Routed to [address] [id number] Stop Taking the Following Medications: predniSONE (predniSONE 5 mg oral tablet) Medication list as of 02-05-16 09:22 Attention: If you have any medications at [...] Electronically Signed By: RILEY SANCHEZ MD Signed On:05-FEB-2016 09:20:52 Your Allergies & Intolerances Substance Reaction Symptoms [...] Your Upcoming Appointments Date Time Location Provider 02/06/2016 09:00 [facility] Urology Jatinder Camejo MD Attention: Contact your [...] if you dont have one. Go to [email or web address] and click on Create Your Account. Then, follow the directions to complete the online form. Youll be asked for your [facility] number which you can find at the top of this document. Your Goals/Additional instructions: Source: [facility] POWERCHART Document Id: [id number] Miscellaneous - Riley Sanchez M.D. - 02/05/2016 9:22 AM CDT Ambulatory Discharge Medication List [address] [id number] Visit Information Name: SE[facility] Number: [id number] Visit Date: 02/05/2016 09:22:08 Attending Provider: RILEY SANCHEZ MD Primary Care [...] capsule) 1 cap, Oral, once a day New Routed to [address] [id number] hydrochlorothiazide (hydrochlorothiazide 25 mg oral tablet) 1 Tablet(s), Oral, once a day (in the morning) Routed to [address] [id number] lisinopril (lisinopril 40 mg oral tablet) 1 Tablet(s), Oral, once a day (in the morning) Routed to [address] [id number] Stop Taking the Following Medications: predniSONE (predniSONE 5 mg oral tablet) Medication list as of 02-05-16 09:22 Attention: If you have any medications at [...] Electronically Signed By: RILEY SANCHEZ MD Signed On:05-FEB-2016 09:20:52 Additional Information: Source: [facility] POWERCHART Document Id: [id number] Miscellaneous - Chucky Duncan L.P.N. - 02/05/2016 8:23 AM CDT Adult Event Marketing Representative Intake/History Adult Event Marketing Representative Intake/History Entered On: 02/05/2016 8:26 CDT Performed On: 02/05/2016 8:23 CDT by CHUCKY DUNCAN LPN Intake Chief Complaint : 1. Medicare Annual Wellness 2. Numbness, pain, and coldness to feet bilaterally worse at night time Peripheral Pulse Rate : 72 /min Respiratory Rate : 16 /min Systolic Blood Pressure : 136 mmHg Diastolic Blood Pressure : 60 mmHg NIBP Mean : 85 mmHg BP Location : Right upper extremity Blood Pressure Cuff Size : Regular Height : 174 cm(Converted to: 5 ft 9 inch(es), 69 inch(es)) Actual Weight : 99 kg(Converted to: 218 lb 4 oz) Weight Source : Standing scale Dosing Weight Clinic : 99 kg Clinic BSA : 2.19 Body Mass Index : 32.7 kg/m2 CHUCKY DUNCAN SINDHU STATON - 02/05/2016 8:23 CDT General Info Information Given By : Patient Preferred Communication Mode : Verbal, Written Languages : Fijian Is Patient Female and 13-50 no hysterectomy : No CHUCKY DUNCAN LPN - 02/05/2016 8:23 CDT Subjective Pain Symptoms : Yes JOSE LUISAARON SheppardIJEOMA MANLEY LPN - 02/05/2016 8:23 CDT Pain Scale Pain Scale Verbal 0-10 : Open CHUCKY DUNCAN LPN - 02/05/2016 8:23 CDT Pain Pain Assessment Grid Pain 1 Location : Foot Laterality : Bilateral CHUCKY DUNCAN SINDHU STATON - 02/05/2016 8:23 CDT Dependent Habits Exposure to Tobacco Smoke [...] Quit : Yes Alcohol Use : Yes CHUCKY DUNCAN LPN - 02/05/2016 8:23 CDT Caffeine Use Grid Caffeine Use : Current Type : Coffee, Tea Frequency : Daily Amount : 2 cup coffee/2 tea daily CHUCKY DUNCAN LPN - 02/05/2016 8:23 CDT Recreational Drug Use Grid Drug Use : None CHUCKY DUNCAN LPN - 02/05/2016 8:23 CDT Source: [facility] POWERCHART Document Id: [id number] CDT!49 Miscellaneous - Chucky Duncan L.P.N. - 02/05/2016 8:20 AM CDT Health Assessment Health Assessment Entered On: 02/05/2016 8:22 CDT Performed On: 02/05/2016 8:20 CDT by CHUCKY DUNCAN LPN Health Assessment Complete Health Assessment Complete or Modified : Annual Health Assessment Annual Health Assessment Completed : Yes CHUCKY DUNCAN LPN - 02/05/2016 8:20 CDT Nutrition Nutrition Risk Factors by History Adult : None CHUCKY DUNCAN LPN - 02/05/2016 8:20 CDT Functional Living Situation : Home independently Current Daily Living Assistance : CHUCKY Davis LPN - 02/05/2016 8:20 CDT Dependent Habits Exposure to Tobacco Smoke [...] Quit : Yes Alcohol Use : Yes CHUCKY DUNCAN LPN - 02/05/2016 8:20 CDT Caffeine Use Grid Caffeine Use : Current Type : Coffee, Tea Frequency : Daily Amount : 2 cup coffee/2 tea daily CHUCKY DUNCAN LPN - 02/05/2016 8:20 CDT Recreational Drug Use Grid Drug Use : None CHUCKY DUNCAN LPN - 02/05/2016 8:20 CDT AUDIT Tool How Often Do You Have A Drink : Monthly or less How Many Drinks in a Day When Drinking : 3 or 4 Six or More Drinks On One Occassion : Never Audit Phase 1 Score : 2 CHUCKY DUNCAN LPN - 02/05/2016 8:20 CDT Psychosocial Domestic Abuse Concerns : None Behavioral Health Screen/Safety Assmt : No Mandaeism Preference : Unknown CHUCKY DUNCAN LPN - 02/05/2016 8:20 CDT Advance Directive Advanced Directives : No Advance Directive Additional Information : No CHUCKY DUNCAN SINDHU STATON - 02/05/2016 8:20 CDT Educ Needs Learning Style Preference Adult Grid Patient : Printed materials, Verbal explanation Family : None CHUCKY DUNCAN SINDHU STATON - 02/05/2016 8:20 CDT Source: [employer] Document Id: [id number] CDT!44 Miscellaneous - Chucky Duncan L.P.N. - 02/05/2016 8:08 AM CDT PHQ-9 PHQ-9 Entered On: 02/05/2016 8:09 CDT Performed On: 02/05/2016 8:08 CDT by CHUCKY DUNCAN LPN PHQ-9 Little interest or pleasure in doing things : More than half the days Feeling down, depressed, or hopeless : Several days Trouble falling or staying asleep, or sleeping too much : More than half the days Feeling tired or having little energy [...] would be better off /hurting self : Several days PHQ-9 Calculated Score : 12 Problems make work, home, or dealing with others : Somewhat difficult AARON DUNCANIJEOMA MANLEY LPN - 02/05/2016 8:08 CDT Source: [employer] Document Id: [id number] CDT!13 documented in this encounter Plan of Treatment Upcoming Encounters Date Type Specialty Care Team Description 04/12/2022 Office Visit Cardiovascular Disease Simone Gooden, KELLY RN, C.N.P. [address] [address] [phone] (Wo rk) documented as of this encounter Procedures Procedure Name Priority Date/Time Associated Diagnosis Comme nts DX CHEST AP OR PA Routine 02/05/2016 9:05 AM Resu lts for this AND LATERAL 2 VIEWS CDT procedur e are in the results section. documented in this encounter Results DX Chest Anterior Posterior or Posterior Anterior and Lateral 2 Views (02/05/2016 9:05 AM CDT) Anatomical Region Laterality Modality Chest N/A Radiographic Imaging Specimen (Source) Anatomical Collection Method Collection Time Re ceived Time Location / / Volume Laterality 02/05/2016 9:05 AM CDT Addenda Addendum by Provider, Javid Samson 02/05/2016 9:05 AM CDT RAD^^^OW XR Chest 2 Views 02/05/2016 09:05:20 Impressions 02/05/2016 11:27 AM CDT ??Please see above dictation. Narrative 02/05/2016 11:27 AM CDT EXAM: ??XR Chest 2 Views AGE: ??65 years old. GENDER: ??Male. INDICATION: ??Tobacco use. Rhonchi in le ft lung. No respiratory symptoms. COMPARISON: ??February 17, 2014. FINDINGS: ??Postop changes both shoulder s. Moderately prominent degenerative change s of the thoracic, upper lumbar spine. Mild eventration of the central aspect o f the right hemidiaphragm. Chest otherwise negative for acute findi ngs. Procedure Note Gil Louise M.D. / Provider, Everett agosto M.D. - 09/07/2016 EXAM: XR Chest 2 Views AGE: [age] years old. GENDER: Male. INDICATION: Tobacco use. Rhonchi in left lung. No respiratory symptoms. COMPARISON: February 17, 2014. FINDINGS: Postop changes both shoulders. Moderately prominent degenerative change s of the thoracic, upper lumbar spine. Mild eventration of the central aspect o f the right hemidiaphragm. Chest otherwise negative for acute findi ngs. IMPRESSION: Please see above dictation. Jennifer Erazo R.T.(R), R.T.(R)(M) IMG DIAGNOSTIC IM AGING PROCEDURES documented in this encounter Visit Diagnoses Not on filedocumented in this encounter Additional Health Concerns Assessment Noted Time PHQ-9 Depression Total Score: 12 02/05/2016 8:08 AM CD T documented as of this encounter
--- OUTSIDE RECORDS SUMMARY | 2022-03-29 07:54 | XMS_ITS | Encounter Summary ---
:1950 Author Organization [facility] Address [address] [place] [address] Care Team Providers Name Role Phone Unavailable Primary Care Provider Unavailable Encounter Details Date Type Department Care Team Description 02/21/2016 Hospital Encounter HX NO MAPPING Darlene Camejo M.D. [address] [place], [place] [phone] (Wo rk) Social History [...] How often do you attend evangelical or yazidism services? 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 [address] [phone] (Wo rk) documented as of this encounter Procedures Procedure Name Priority Date/Time Associated Diagnosis Comme [facility] SURGICAL PATHOLOGY Routine 02/21/2016 12:00 AM Re sults for this CDT procedure are i n the results section. SURGICAL PATHOLOGY Routine 02/21/2016 12:00 AM Re sults for this CDT procedure are i n the results section. documented in this encounter Results Pathology Surgical Pathology (02/21/2016 12:00 AM CDT) Specimen (Source) Anatomical Location Collection Method / Collectio n Time Received Time / Laterality Volume 02/21/[address] [facility] - 02/26/20 16 8:05 AM CDT Historical Provider LAB SURG PATH ORDERABLES Performing Organization Address City/[facility] Code Phon e Number [facility] NA Pathology Surgical Pathology (02/21/2016 12:00 AM CDT) Specimen (Source) Anatomical Location Collection Method / Collectio n Time Received Time / Laterality Volume 02/21/2016 [facility] - 02/26/20 16 8:05 AM CDT PATIENT IMAGES Choose the Image button to view related documents. Historical Provider LAB SURG PATH ORDERABLES Performing Organization Address City/[facility] Code Phon e Number [facility] NA documented in this encounter Visit Diagnoses Not on filedocumented in this encounter Additional Health Concerns Assessment Noted Time PHQ-9 Depression Total Score: 6 02/12/2016 11:18 AM CD T documented as of this encounter
--- OUTSIDE RECORDS SUMMARY | 2022-03-29 07:54 | XMS_ITS | Encounter Summary ---
:1950 Author Organization [facility] Address [address] [place] [address] Care Team Providers Name Role Phone Unavailable Primary Care Provider Unavailable Encounter Details Date Type Department Care Team Description 01/29/2016 Hospital Encounter HX [facility] Leta Sanchez M.D. [address] [facility], [facility] [address] [phone] Social History Tobacco Use Types Packs/Day [...] How often do you attend anglican or moravian services? 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 [address] [phone] (Wo rk) documented as of this encounter Procedures Procedure Name Priority Date/Time Associated Comments Diagnosis HEPATIC FUNCTION Routine 01/29/2016 8:15 AM Resul ts for this PANEL, S CDT procedure are i n the results section. PROSTATE-SPECIFIC AG Routine 01/29/2016 8:15 AM R esults for this (PSA) SCRN, S CDT procedure are in the results section. AUTOMATED Routine 01/29/2016 8:15 AM Results f or this DIFFERENTIAL, B CDT procedure ar e in the results section. SEDIMENTATION RATE, B Routine 01/29/2016 8:15 AM Results for this CDT procedure are i n the results section. CBC WITH DIFFERENTIAL, Routine 01/29/2016 8:15 AM Results for this B CDT procedure are i n the results section. THYROID-STIMULATING Routine 01/29/2016 8:15 AM Re sults for this HORMONE-SENSITIVE CDT procedure are in (S-TSH) the results section. BASIC METABOLIC PANEL, Routine 01/29/2016 8:15 AM Results for this S/P CDT procedure are i n the results section. documented in this encounter Results (ABNORMAL) Automated Differential (01/29/2016 8:15 AM CDT) [facility] Primekss Method Time Signature Absolute 4.92 1.70 - POWERCHART Neutrophils 7.00 109L Lymphocytes 2.02 0.90 - POWERCHART 2.90 X109L Monocytes 0.98 (H) 0.30 - POWERCHART 0.90 X109L Eosinophils 0.36 0.05 - POWERCHART 0.50 X109L Absolute 0.04 0.00 - POWERCHART Basophil 0.30 X109L Specimen Anatomical Collection Method Collection Time Receive d Time (Source) Location / / Volume Laterality Blood 01/29/2016 8:15 AM 6 8:15 CDT AM CDT Leta Sanchez M.D. LAB BLOOD ADD-ON Performing Organization Address City/State/ZIP Code Phon e Number POWERCHART (ABNORMAL) Sedimentation Rate (01/29/2016 8:15 AM CDT) [facility] gist Method Time Signature Sedimentation 41 (H) 0 - 22 POWERCHART Rate, B MMHR Specimen (Source) Anatomical Collection Method Collection Time Re ceived Time Location / / Volume Laterality Blood 01/29/2016 8:15 AM CDT [facility]io [place]. LAB BLOOD ADD-ON Performing Organization Address City/State/[facility] Code Phon e Number POWERCHART CBC with Differential (01/29/2016 8:15 AM CDT) P athologist Signature Leukocytes 8.3 3.5 - 10.5 POWERCHART X109L Erythrocytes 4.54 4.32 - 5.72 POWERCHART [id number] Hemoglobin 13.9 13.5 - 17.5 POWERCHART GDL Hematocrit 40.7 38.8 - 50.0 POWERCHART MCV 89.6 81.0 - 95.0 POWERCHART FL Platelet Count 333 150 - 450 POWERCHART X109L HX RDW 13.6 11.8 - 15.6 POWERCHART Specimen (Source) Anatomical Collection Method Collection Time Re ceived Time Location / / Volume Laterality Blood 01/29/2016 8:15 AM CDT Leta [facility] Javid LAB BLOOD ADD-ON Performing Organization Address City/[facility] Phon e Number POWERCHART Thyroid-Stimulating Hormone-Sensitive (s-TSH) (01/29/2016 8:15 AM CDT) P athologist Signature TSH 1.64 0.27 - 4.20 POWERCHART (Thyrotropin) MIUL Comment: Biotin has been identified by the heri garcia as a potential interfering substance. Higher concentrations of biotin may be found in multivitamins, hair/nail supplements, and workout supplements. If the result does not match clinical observat ions, repeat testing after patient refrains from the use of supplements for at least 12 hours. Specimen (Source) Anatomical Collection Method Collection Time Re ceived Time Location / / Volume Laterality Blood 01/29/2016 8:15 AM CDT [facility].[place]. LAB BLOOD ADD-ON Performing Organization Address City/[facility] Code Phon e Number POWERCHART PSA (Prostate-Specific Antigen) Screen (01/29/2016 8:15 AM CDT) P athologist Signature Prostate-Specif 2.6 0.0 - 4.5 POWERCHART ic Ag NGML Comment: Biotin has been identified by the [facility] cturer as a potential interfering substance. Higher concentrations of biotin may be found in multivitamins, hair/nail supplements, and workout supplements. If the result does not match clinical observat ions, repeat testing after patient refrains from the use of supplements for at least 12 hours. Specimen (Source) Anatomical Collection Method Collection Time Re ceived Time Location / / Volume Laterality Blood 01/29/2016 8:15 [facility] Performing Organization Address City/State/ZIP Code Phon e Number POWERCHART Hepatic Function Panel (01/29/2016 8:15 AM CDT) Patholo gist Method Time Signature Alanine 12 7 - 55 POWERCHART Amniotransferase, LD UNITL Albumin, S 4.3 3.2 - 5.2 POWERCHART GDL Alkaline 72 45 - 115 POWERCHART Phosphatase, S UNITL Aspartate 20 8 - 48 POWERCHART Aminotransferase UNITL (AST), S Bilirubin, Direct, S <0.20 <=0.30 POWERCHAR T MGDL Bilirubin, Total, S 0.3 <=1.2 POWERCHART MGDL Total Protein, S 7.0 6.3 - 7.9 POWERCHART GDL Specimen (Source) Anatomical Collection Method Collection Time Re ceived Time Location / / Volume Laterality Blood 01/29/2016 8:15 AM CDT [facility] Performing Organization Address City/[facility] Code Phon e Number POWERCHART (ABNORMAL) BMP (Basic Metabolic Panel) (01/29/2016 8:15 AM CDT) P athologist Signature Sodium, S 137 135 - 145 POWERCHART MMOLL Potassium, S 4.2 3.6 - 5.2 POWERCHART MMOLL Chloride, S 97 (L) 98 - 107 POWERCHART MMOLL CO2 Total 27 22 - 29 POWERCHART MMOLL Glucose, 90 70 - 99 POWERCHART Fasting, S MGDL BUN (Blood Urea 17 8 - 24 POWERCHART Nitrogen), S MGDL Creatinine 0.94 0.80 - POWERCHART 1.30 MGDL Calcium, Total, 10.0 8.8 - 10.3 POWERCHART S MGDL Anion Gap 13 7 - 15 POWERCHART MMOLL HXeGFR (MDRD) >60 >=60 POWERCHART [id number] eGFR >60 >=60 POWERCHART Black/ [id number] [place] Citizen Specimen (Source) Anatomical Collection Method Collection Time Re ceived Time Location / / Volume Laterality Blood 01/29/2016 8:15 AM CDT Leta Sanchez M.D. LAB BLOOD ADD-ON Performing Organization Address City/State/ZIP Code Phon e Number POWERCHART documented in this encounter Visit Diagnoses Not on filedocumented in this encounter Additional Health Concerns Assessment Noted Time PHQ-9 Depression Total Score: 17 01/24/2015 11:26 AM C DT documented as of this encounter
--- OUTSIDE RECORDS SUMMARY | 2022-03-29 07:54 | XMS_ITS | Encounter Summary ---
:1950 Author Organization [facility] Address [address] [place] [address] Care Team Providers Name Role Phone Unavailable Primary Care Provider Unavailable Encounter Details Date Type Department Care Team Description 07/24/2015 Hospital Encounter HX NO MAPPING Darlene Camejo M.D. [address] [place], [place] [phone] (Wo rk) Social History [...] How often do you attend confucianism or voodoo services? 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 [address] [phone] (Wo rk) documented as of this encounter Visit Diagnoses Not on filedocumented in this encounter Additional Health Concerns Assessment Noted Time PHQ-9 Depression Total Score: 17 01/24/2015 11:26 AM C DT documented as of this encounter
--- OUTSIDE RECORDS SUMMARY | 2022-03-29 07:54 | XMS_ITS | Encounter Summary ---
:1950 Author Organization [facility] Address [address] [place] [address] Care Team Providers Name Role Phone Unavailable Primary Care Provider Unavailable Encounter Details Date Type Department Care Team Description 10/09/2015 Hospital Encounter HX [facility] Riley Jimenez M.D. [address] [facility], [facility] [address] [phone] Social History Tobacco Use Types Packs/Day [...] How often do you attend congregation or pentecostal services? 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 - 10/09/2015 7:54 AM CDT [id number] CHIEF COMPLAINT/REASON FOR VISIT Followup on chronic medical problems. HISTORY OF PRESENT ILLNESS Mik is a 65-year-old male who presents to the clinic today for a three month followup from 07/03/2015. He is doing well. He is on Prednisone 5 mg daily for polymyalgia rheumatica. He has some aches in his knees. He denies any stomach upset or blood in stool. His blood pressure is controlled today. At his last visit, we started Hydrochlorothiazide 25 mg daily in the morning. He denies any gout attack. He continues to smoke cigarettes, 8-10 a day. He walks acouple of miles every day and is on his feet most of the day. He hasnt noticed any significant weight loss. 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 He had cystoscopy with Dr. Jatinder Camejo, Urologist on 07/24/2015. Cystoscopy was negative; no evidence of active disease. He denies any hematuria. Patient mentioned that he caught a cold last week. He is feeling better now. There are no additionalquestions, concerns, or complaints. MEDICATIONS Albuterol CFC 90 mcg/inh 2 puffs every 4 hours as needed. Hydrochlorothiazide 25 mg by mouth daily in the morning. Lisinopril 40 mg by mouth daily in the morning. Prednisone 5 mg by mouth daily in the morning. ALLERGIES Influenza vaccine. Pravastatin causing myalgia, arthralgia. Wellbutrin causing suicidal thoughts. SYSTEMS REVIEW Please see HPI for pertinent positives, otherwise rest of ROS negative. PAST MEDICAL/SURGICAL HISTORY Reviewed and updated as per the EHR on 10/09/2015. PREVENTIVE SERVICES Reviewed and updated as per the EHR on 10/09/2015. SOCIAL HISTORY Reviewed and updated as per the EHR on 10/09/2015. FAMILY HISTORY Reviewed and updated as per the EHR on 10/09/2015. VITAL SIGNS HEIGHT: 172 cm. WEIGHT: 107 kg. BMI: 36.17 kg/m2. PULSE: 90 /min. RESP: 18 /min. SYSTOLIC: 131 mmHg. DIASTOLIC: 78 mmHg. PHYSICAL EXAMINATION GENERAL: Patient is sitting. No distress. Able to talk without interruption. HEAD: No facial rash, asymmetry, or sinus tenderness. EYES: PERRLA. EOMI. No pallor, icterus, or conjunctivitis. He had bilateral cataract surgery. ENT: No nasal congestion, discharge, or bleeding. There is no ear infection or discharge. No mastoidtenderness. Tongue is moist and midline. No oral lesions. LYMPH NODES: No cervical or supraclavicular lymphadenopathy. HEART: No carotid bruit. No JVD. Regular rhythm. There is no S3, gallop, murmur, or thrill. LUNGS: Normal respiratory effort. Normal percussion. There is slight wheezing. EXTREMITIES: No clubbing, cyanosis, edema, infection, or calf tenderness. MENTAL: Alert and oriented x 3. Normal mood and affect. IMPRESSION/REPORT/PLAN 1. Bladder cancer, grade 1 of 3. He is asymptomatic. He had negative cystoscopy on 07/24/2015. He needs to quit smoking. Patient will follow with Dr. Camejo on 10/30/2015. 2. Leukocytosis. He has history of intermittent slight leukocytosis. There is no evidence of infection clinically. We will monitor. 3. Hypertension. Blood pressure is controlled. He is stable from a cardiac standpoint. Need to continue sodium controlled diet and current medication. Blood pressure goal is less than 140/90 mmHg. Needto continue cardiovascular risk factors modification. 4. Polymyalgia rheumatica. It is stable with Prednisone 5 mg daily. There were no side effects. We need to monitor BMP, CBC, and Sedimentation rate every month. 5. Tobacco abuse. I recommended smoking cessation. He is not ready yet. We discussed complications. Todays studies: BMP, CBC, and Sed rate. Patient will be notified with results & recommendations. The patient will return to the clinic in 4 months for Medicare annual wellness exam, review medical problems, renew medication, and following tests prior to appointment: Fasting BMP, CBC, HFP, PSA, Sedrate, and TSH. This document serves as a record of services personally performed by Dr. Riley Sanchez. It was created on their behalf by Juan Ramos, a trained medical records specialist. The creation of this record is based on the scribe's personal observations and the provider's statements to them. This document has been checked and approved by the attending provider. Riley Sanchez M.D./arti Electronically Signed By: RILEY SANCHEZ MD On: 10/09/2015 09:22 AM Modified by and Electronically Signed by: RILEY SANCHEZ MD On: 10/09/2015 09:22 AM Source: [facility] MHSDOLBEYNONRADSYS Document Id: [id number] documented in this encounter Miscellaneous Notes Telephone Encounter - Chucky Duncan L.P.N. - 11/21/2015 12:54 PM CDT *Phone Message Document Contains Addenda Addendum by CARISA JONES RN on November 21, 2015 13:15:06 CDT scripts filled From: CHUCKY DUNCAN LPN ([facility] Nurse) To: [facility] Medication Refill; Sent: 11/21/2015 12:54:03 CDT Subject: *Phone Message Caller is: ( x ) Patient ( ) Mother ( ) Father ( ) Spouse ( ) Daughter ( ) Son ( ) Pharmacy ( ) Other: Physician: Patient MRN #: Reason for Call: Message: Patient is requesting refills on his lisinopril and his hydrochlorothiazide. He would like this sent to [facility] in [place]. Advice/Action: Source used: ( ) Verbalizes understanding of instructions ( ) Instructed to call back if symptoms worsen or do not resolve ( ) Refused to see provider ( ) Appointment Scheduled ( ) OK to leave message on voice mail ( ) Patient told to expect return call: ( ) today ( ) tomorrow ( ) next work day ( ) Patient's email ( ) Patient told physician out of office, will call upon return call on ( ) ( ) Patient told physician out of office, routed to other physician ( ) Other ( ) Call back telephone number ( ) Call back cell phone number ( ) Source: [facility] POWERCHART Document Id: [id number] Electronically signed by Rivka [facility] Fre[facility] And Passenger Agent [id number] at 09/28/2016 8:24 PM CDT Miscellaneous - Riley Sanchez M.D. - 10/15/2015 8:09 PM CDT Results Notification 10/09/2015 Document Contains Addenda Addendum by CHUCKY DUNCAN LPN on October 17, 2015 10:12:17 CDT Patient notified. Addendum by RILEY SANCHEZ MD on October 16, 2015 20:08:34 CDT From: RILEY SANCHEZ MD To: Laura Nurse; Sent: 10/16/2015 20:08:34 CDT Show up: 10/16/2015 20:08:00 CDT Subject: RE: Results Notification 10/09/2015 Actions: Notify Patient of Future order I sent new Rx to [facility]. Addendum by CHUCKY DUNCAN LPN on October 16, 2015 12:01:53 CDT Patient notified of results and instructions for his prednisone. Patient would like a new prescription for prednisone sent to [facility] in [place]. Please advise. From: RILEY SANCHEZ MD To: [facility] Nurse; Sent: 10/15/2015 20:09:11 CDT Show up: 10/15/2015 20:08:00 CDT Subject: Results Notification 10/09/2015 Actions: Notify patient of results, Notify Patient of Future Order Please call him with following messages. Your tests for electrolytes, kidney function and blood counts are OK. Sed rate(Test for inflammation) is normal. Please cut back Prednisone dose to 2.5 mg(One half tablet of 5 mg pill) daily. We need to check Sed rate as every month, as we discussed. Results: Date Result Name Ind Value Ref Range 10/09/2015 09:01 Sodium Lvl 139 mmol/L (135 - 145) 10/09/2015 09:01 Potassium Lvl 4.0 mmol/L (3.6 - 5.2) 10/09/2015 09:01 Chloride (L) 95 mmol/L (98 - 107) 10/09/2015 09:01 CO2 (H) 31 mmol/L (22 - 29) 10/09/2015 09:01 AGAP 13 mmol/L (7 - 15) 10/09/2015 09:01 Glucose Lvl 109 mg/dL (70 - 139) 10/09/2015 09:01 Creatinine 1.0 mg/dL (0.8 - 1.3) 10/09/2015 09:01 EGFR (MDRD) >60 mL/min/1.73m2 (>=60 - ) 10/09/2015 09:01 EGFR (MDRD) >60 mL/min/1.73m2 (>=60 - ) 10/09/2015 09:01 BUN 16 mg/dL (8 - 24) 10/09/2015 09:01 Calcium Lvl 10.2 mg/dL (8.8 - 10.3) 10/09/2015 09:01 Hgb 16.0 g/dL (13.5 - 17.5) 10/09/2015 09:01 Hct 47.3 % (38.8 - 50.0) 10/09/2015 09:01 WBC 9.6 x10(9)/L (3.5 - 10.5) 10/09/2015 09:01 RBC 5.41 x10(12)/L (4.32 - 5.72) 10/09/2015 09:01 MCV 87.4 fL (81.0 - 95.0) 10/09/2015 09:01 RDW 14.5 % (11.8 - 15.6) 10/09/2015 09:01 Platelet 315 x10(9)/L (150 - 450) 10/09/2015 09:01 Neutro Absolute 6.43 10(9)/L (1.70 - 7.00) 10/09/2015 09:01 Lymph Absolute 1.86 x10(9)/L (0.90 - 2.90) 10/09/2015 09:01 [place] Absolute (H) 1.03 x10(9)/L (0.30 - 0.90) 10/09/2015 09:01 Eos Absolute 0.26 x10(9)/L (0.05 - 0.50) 10/09/2015 09:01 Baso Absolute 0.03 x10(9)/L (0.00 - 0.30) 10/09/2015 09:01 Sed Rate 18 mm/hr (0 - 22) Source: [facility] POWERCHART Document Id: [id number] Electronically signed by Conversion, [facility] Freight And Passenger Agent [id number] at 09/28/2016 8:24 PM CDT Miscellaneous - Riley Sanchez M.D. - 10/15/2015 8:07 PM CDT Custom Result Letter October 15, 2015 SEVEN [address]AR [address] [place] [id number] Dear SEVEN SALAZAR, Your tests for electrolytes, kidney function and blood counts are OK. Sed rate(Test for inflammation) is normal. Please cut back Prednisone dose to 2.5 mg(One half tablet of 5 mg pill) daily. We need to check Sed rate as every month, as we discussed. Please follow up with us as we discussed during your visit or sooner if you have any concerns. If you have questions or concerns, please do not hesitate to call our office. Result Name Current Result Normal Range Sodium Lvl (mmol/L) 139 10/09/2015 135 - 145 Potassium Lvl (mmol/L) 4.0 10/09/2015 3.6 - 5.2 Chloride (mmol/L) (L) 95 10/09/2015 98 - 107 CO2 (mmol/L) (H) 31 10/09/2015 22 - 29 Glucose Lvl (mg/dL) 109 10/09/2015 70 - 139 Creatinine (mg/dL) 1.0 10/09/2015 0.8 - 1.3 EGFR (MDRD) (mL/min/1.73m2) >60 10/09/2015 >=60 - BUN (mg/dL) 16 10/09/2015 8 - 24 Calcium Lvl (mg/dL) 10.2 10/09/2015 8.8 - 10.3 Hgb (g/dL) 16.0 10/09/2015 13.5 - 17.5 Hct (%) 47.3 10/09/2015 38.8 - 50.0 WBC (x10(9)/L) 9.6 10/09/2015 3.5 - 10.5 [id number] (x10(9)/L) 315 10/09/2015 150 - 450 Sed Rate (mm/hr) 18 10/09/2015 0 - 22 Sincerely, RILEY SANCHEZ [address] [place] [address] Electronic Signature Electronically Signed By: RILEY SANCHEZ MD On: October 15, 2015 This document has images extracted. Source: [facility] POWERCHART Document Id: [id number] Miscellaneous - Riley Sanchez M.D. - 10/09/2015 8:29 AM CDT Ambulatory Patient Summary [address] [facility] [place] [id number] Visit Information Name: SEVEN SALAZAR [facility] Number: [id number] Current Date: 10/09/2015 08:29:35 Physicians Attending Provider: RILEY SANCHEZ MD Primary [...] chamber hydrochlorothiazide (hydrochlorothiazide 25 mg oral tablet) 1 Tablet(s), Oral, once a day (in the morning) lisinopril (lisinopril 40 mg oral tablet) 1 Tablet(s), Oral, once a day (in the morning) predniSONE (predniSONE 5 mg oral tablet) 1 Tablet(s), Oral, once a day (in the morning) with food. Dose decreased on 08/16/2015. Stop Taking the Following Medications: Medication list as of 10-09-15 08:29 Attention: If you have any medications at [...] Electronically Signed By: RILEY SANCHEZ MD Signed On:09-OCT-2015 08:29:30 Your Allergies & Intolerances Substance Reaction Symptoms [...] Your Upcoming Appointments Date Time Location Provider 10/30/2015 14:15 [facility] Jatinder Camejo MD Attention: Contact [...] if you dont have one. Go to [email or web address] and click on Create Your Account. Then, follow the directions to complete the online form. Youll be asked for your [facility] number which you can find at the top of this document. Your Goals/Additional instructions: Source: [facility] POWERCHART Document Id: [id number] Miscellaneous - Riley Sanchez M.D. - 10/09/2015 8:29 AM CDT Ambulatory Discharge Medication List [address] [id number] Visit Information Name: SEVEN SALAZAR [facility] Number: [id number] Visit Date: 10/09/2015 08:29:34 Attending Provider: RILEY SANCHEZ MD Primary Care [...] chamber hydrochlorothiazide (hydrochlorothiazide 25 mg oral tablet) 1 Tablet(s), Oral, once a day (in the morning) lisinopril (lisinopril 40 mg oral tablet) 1 Tablet(s), Oral, once a day (in the morning) predniSONE (predniSONE 5 mg oral tablet) 1 Tablet(s), Oral, once a day (in the morning) with food. Dose decreased on 08/16/2015. Stop Taking the Following Medications: Medication list as of 10-09-15 08:29 Attention: If you have any medications at [...] Electronically Signed By: RILEY SANCHEZ MD Signed On:09-OCT-2015 08:29:30 Additional Information: Source: [facility] POWERCHART Document Id: [id number] Miscellaneous - Eder Qureshi, C.MDale - 10/09/2015 7:59 AM CDT Adult Holter Technician Intake/History Adult Holter Technician Intake/History Entered On: 10/09/2015 8:03 CDT Performed On: 10/09/2015 7:59 CDT by EDER QURESHI [facility] Intake Chief Complaint : 3 month follow up Peripheral Pulse Rate : 90 /min Respiratory Rate : 18 /min Heart Rhythm : Regular Systolic Blood Pressure : 131 mmHg Diastolic Blood Pressure : 78 mmHg NIBP Mean : 96 mmHg BP Location : Right upper extremity Blood Pressure Cuff Size : Large Height : 172 cm(Converted to: 5 ft 8 inch(es), 68 inch(es)) Actual Weight : 107 kg(Converted to: 235 lb 14 oz) Weight Source : Standing scale Dosing Weight Clinic : 107 kg Clinic BSA : 2.26 Body Mass Index : 36.17 kg/m2 EDER QURESHI CMA - 10/09/2015 7:59 CDT General Info Information Given By : Patient Preferred Communication Mode : Verbal Languages : Georgian Is Patient Female and 13-50 no hysterectomy : No EDER QURESHI CMA - 10/09/2015 7:59 CDT Subjective Pain Symptoms : No NITESH EDER Padilla [facility] - 10/09/2015 7:59 CDT Dependent Habits Exposure to Tobacco Smoke : Other: patient had quit but is now smoking some now and then Smoking Status : Current every day smoker Tobacco 2A : Yes Tobacco Use/Currently Using : Yes Tobacco Use/Last 30 Days : Yes Tobacco Use/Last 12 months : Yes Type : Cigarettes: Less than 20 per day Tobacco Use/Advised to Quit : Yes EDER QURESHI [facility] - 10/09/2015 7:59 CDT Caffeine Use Grid Caffeine Use : Current Type : Coffee, Tea Frequency : Daily Amount : 2 cup coffee/2 tea daily EDER QURESHI [facility] - 10/09/2015 7:59 CDT Recreational Drug Use Grid Drug Use : None EDER QURESHI [facility] - 10/09/2015 7:59 CDT Source: [facility] Idle GamingCHART Document Id: [id number] CDT!42 documented in this encounter Plan of Treatment Upcoming Encounters Date Type Specialty Care Team Description 04/12/2022 Office Visit Cardiovascular Disease Simone Gooden AP RN, C.N.P. [address] [phone] (Wo rk) documented as of this encounter Procedures Procedure Name Priority Date/Time Associated Comments Diagnosis AUTOMATED Routine 10/09/2015 9:01 AM Results f or this DIFFERENTIAL, B CDT procedure ar e in the results section. SEDIMENTATION RATE, B Routine 10/09/2015 9:01 AM Results for this CDT procedure are i n the results section. CBC WITH DIFFERENTIAL, Routine 10/09/2015 9:01 AM Results for this B CDT procedure are i n the results section. BASIC METABOLIC PANEL, Routine 10/09/2015 9:01 AM Results for this S/P CDT procedure are i n the results section. documented in this encounter Results (ABNORMAL) Automated Differential (10/09/2015 9:01 AM CDT) [facility] Method Time Signature Absolute 6.43 1.70 - POWERCHART Neutrophils 7.00 109L Lymphocytes 1.86 0.90 - POWERCHART 2.90 X109L Monocytes 1.03 (H) 0.30 - POWERCHART 0.90 X109L Eosinophils 0.26 0.05 - POWERCHART 0.50 X109L Absolute 0.03 0.00 - POWERCHART Basophil 0.30 X109L Specimen Anatomical Collection Method Collection Time Receive d Time (Source) Location / / Volume Laterality Blood 10/09/2015 9:01 AM 6 9:01 CDT AM CDT Riley Sanchez M.D. LAB BLOOD ADD-ON Performing Organization Address City/State/ZIP Code Phon e Number POWERCHART Sedimentation Rate (10/09/2015 9:01 AM CDT) Analysis Performed At Patho logist Time Signature Sedimentation 18 0 - 22 POWERCHART Rate, B MMHR Specimen (Source) Anatomical Collection Method Collection Time Re ceived Time Location / / Volume Laterality Blood 10/09/2015 9:01 AM CDT Riley Valente M.Bonilla. LAB BLOOD ADD-ON Performing Organization Address City/[facility] Code Phon e Number POWERCHART CBC with Differential (10/09/2015 9:01 AM CDT) P athologist Signature Leukocytes 9.6 3.5 - 10.5 POWERCHART X109L Erythrocytes 5.41 4.32 - 5.72 POWERCHART [id number] Hemoglobin 16.0 13.5 - 17.5 POWERCHART GDL Hematocrit 47.3 38.8 - 50.0 POWERCHART MCV 87.4 81.0 - 95.0 POWERCHART [place] Platelet Count 315 150 - 450 POWERCHART X109L HX RDW 14.5 11.8 - 15.6 POWERCHART Specimen (Source) Anatomical Collection Method Collection Time Re ceived Time Location / / Volume Laterality Blood 10/09/2015 9:01 AM CDT Riley Sanchez M.D. LAB BLOOD ADD-ON Performing Organization Address City/State/ZIP Code Phon e Number POWERCHART (ABNORMAL) BMP (Basic Metabolic Panel) (10/09/2015 9:01 AM CDT) P athologist Signature Sodium, S 139 135 - 145 POWERCHART MMOLL Potassium, S 4.0 3.6 - 5.2 POWERCHART MMOLL Chloride, S 95 (L) 98 - 107 POWERCHART MMOLL CO2 Total 31 (H) 22 - 29 POWERCHART MMOLL BUN (Blood Urea 16 8 - 24 POWERCHART Nitrogen), S MGDL Creatinine 1.0 0.8 - 1.3 POWERCHART MGDL Calcium, Total, 10.2 8.8 - 10.3 POWERCHART S MGDL Anion Gap 13 7 - 15 POWERCHART MMOLL HXeGFR (MDRD) >60 >=60 POWERCHART [id number] eGFR >60 >=60 POWERCHART Black/ [id number] [place] Glucose 109 70 - 139 POWERCHART MGDL Specimen (Source) Anatomical Collection Method Collection Time Re ceived Time Location / / Volume Laterality Blood 10/09/2015 9:01 AM CDT Riley Sanchez M.D. LAB BLOOD ADD-ON Performing Organization Address City/State/ZIP Code Phon e Number POWERCHART documented in this encounter Visit Diagnoses Not on filedocumented in this encounter Additional Health Concerns Assessment Noted Time PHQ-9 Depression Total Score: 17 01/24/2015 11:26 AM C DT documented as of this encounter
--- OUTSIDE RECORDS SUMMARY | 2022-03-29 07:54 | XMS_ITS | Encounter Summary ---
:1950 Author Organization [facility] Address [address] [place] [address] Care Team Providers Name Role Phone Unavailable Primary Care Provider Unavailable Encounter Details Date Type Department Care Team Description 08/14/2015 Hospital Encounter HX [facility] Riley Sanchez M.D. [address] [facility], [place] [address] [phone] Social History Tobacco Use Types Packs/Day [...] How often do you attend orthodox or episcopalian services? 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 - 08/16/2015 4:04 PM CDT Results Notification 08/14/2015 Document Contains Addenda Addendum by KEYUR ALANIZ LPN on August 16, 2015 16:25:53 CDT patient called From: RILEY SANCHEZ MD To: JOSE Sanchez Nurse; Sent: 08/16/2015 16:04:45 CDT Show up: 08/16/2015 16:03:00 CDT Subject: Results Notification 08/14/2015 Actions: Notify patient of results, Notify Patient of Future Order Please call. Sed rate is normal. He can decrease Prednisone dose to 5 mg daily. Tests for electrolytes and kidney function are OK. CBC is OK except for just above normal WBC, due to Prednisone Rx. Will recheck blood tests again on 09/11/2015. Results: Date Result Name Ind Value Ref Range 08/14/2015 09:15 Sodium Lvl 139 mmol/L (135 - 145) 08/14/2015 09:15 Potassium Lvl 4.4 mmol/L (3.6 - 5.2) 08/14/2015 09:15 Chloride (L) 96 mmol/L (98 - 107) 08/14/2015 09:15 CO2 (H) 33 mmol/L (22 - 29) 08/14/2015 09:15 AGAP 10 mmol/L (7 - 15) 08/14/2015 09:15 Glucose Lvl 114 mg/dL (70 - 139) 08/14/2015 09:15 Creatinine 0.9 mg/dL (0.8 - 1.3) 08/14/2015 09:15 EGFR (MDRD) >60 mL/min/1.73m2 (>=60 - ) 08/14/2015 09:15 EGFR (MDRD) >60 mL/min/1.73m2 (>=60 - ) 08/14/2015 09:15 BUN 16 mg/dL (8 - 24) 08/14/2015 09:15 Calcium Lvl 10.2 mg/dL (8.8 - 10.3) 08/14/2015 09:15 Hgb 15.3 g/dL (13.5 - 17.5) 08/14/2015 09:15 Hct 45.8 % (38.8 - 50.0) 08/14/2015 09:15 WBC (H) 10.6 x10(9)/L (3.5 - 10.5) 08/14/2015 09:15 RBC 5.13 x10(12)/L (4.32 - 5.72) 08/14/2015 09:15 MCV 89.3 fL (81.0 - 95.0) 08/14/2015 09:15 RDW 13.9 % (11.8 - 15.6) 08/14/2015 09:15 Platelet 322 x10(9)/L (150 - 450) 08/14/2015 09:15 Neutro Absolute (H) 7.95 10(9)/L (1.70 - 7.00) 08/14/2015 09:15 Lymph Absolute 1.61 x10(9)/L (0.90 - 2.90) 08/14/2015 09:15 [place] Absolute 0.88 x10(9)/L (0.30 - 0.90) 08/14/2015 09:15 Eos Absolute 0.16 x10(9)/L (0.05 - 0.50) 08/14/2015 09:15 Baso Absolute 0.03 x10(9)/L (0.00 - 0.30) 08/14/2015 09:15 Sed Rate 22 mm/hr (0 - 22) Source: [facility] POWERCHART Document Id: [id number] Electronically signed by Conversion, [facility] Warehouse General Laborer [id number] at 09/28/2016 6:59 PM CDT documented in this encounter Plan of Treatment Upcoming Encounters Date Type Specialty Care Team Description 04/12/2022 Office Visit Cardiovascular Disease Simone Gooden AP RN, C.N.P. [address] [phone] (Wo rk) documented as of this encounter Procedures Procedure Name Priority Date/Time Associated Comments Diagnosis AUTOMATED Routine 08/14/2015 9:15 AM Results f or this DIFFERENTIAL, B CDT procedure ar e in the results section. SEDIMENTATION RATE, B Routine 08/14/2015 9:15 AM Results for this CDT procedure are i n the results section. CBC WITH DIFFERENTIAL, Routine 08/14/2015 9:15 AM Results for this B CDT procedure are i n the results section. BASIC METABOLIC PANEL, Routine 08/14/2015 9:15 AM Results for this S/P CDT procedure are i n the results section. documented in this encounter Results (ABNORMAL) Automated Differential (08/14/2015 9:15 AM CDT) [facility] gist Method Time Signature Absolute 7.95 (H) 1.70 - POWERCHART Neutrophils 7.00 109L Lymphocytes 1.61 0.90 - POWERCHART 2.90 X109L Monocytes 0.88 0.30 - POWERCHART 0.90 X109L Eosinophils 0.16 0.05 - POWERCHART 0.50 X109L Absolute 0.03 0.00 - POWERCHART Basophil 0.30 X109L Specimen Anatomical Collection Method Collection Time Receive d Time (Source) Location / / Volume Laterality Blood 08/14/2015 9:15 AM 6 9:15 CDT AM CDT Riley Sanchez Javid LAB BLOOD ADD-ON Performing Organization Address [facility] [place] Phon e Number POWERCHART Sedimentation Rate (08/14/2015 9:15 AM CDT) Analysis Performed At [facility] Time Signature Sedimentation 22 0 - 22 POWERCHART Rate, B MMHR Specimen (Source) Anatomical Collection Method Collection Time Re ceived Time Location / / Volume Laterality Blood 08/14/2015 9:15 AM CDT Riley Sanchez Javid LAB BLOOD ADD-ON Performing Organization Address City[facility] [place] Phon e Number POWERCHART (ABNORMAL) CBC with Differential (08/14/2015 9:15 AM CDT) Analysis Performed At [facility] Time Signature Leukocytes 10.6 (H) 3.5 - 10.5 POWERCHART X109L Erythrocytes 5.13 4.32 - POWERCHART 5.72 [id number] Hemoglobin 15.3 13.5 - POWERCHART 17.5 GDL Hematocrit 45.8 38.8 - POWERCHART 50.0 MCV 89.3 81.0 - POWERCHART 95.0 FL Platelet Count 322 150 - 450 POWERCHART X109L HX RDW 13.9 11.8 - POWERCHART 15.6 Specimen (Source) Anatomical Collection Method Collection Time Re ceived Time Location / / Volume Laterality Blood 08/14/2015 9:15 AM CDT Riley PadillaRoldan LAB BLOOD ADD-ON Performing Organization Address City/State/ZIP Code Phon e Number POWERCHART (ABNORMAL) BMP (Basic Metabolic Panel) (08/14/2015 9:15 AM CDT) P athologist Signature Sodium, S 139 135 - 145 POWERCHART MMOLL Potassium, S 4.4 3.6 - 5.2 POWERCHART MMOLL Chloride, S 96 (L) 98 - 107 POWERCHART MMOLL CO2 Total 33 (H) 22 - 29 POWERCHART MMOLL BUN (Blood Urea 16 8 - 24 POWERCHART Nitrogen), S MGDL Creatinine 0.9 0.8 - 1.3 POWERCHART MGDL Calcium, Total, 10.2 8.8 - 10.3 POWERCHART S MGDL Anion Gap 10 7 - 15 POWERCHART MMOLL HXeGFR (MDRD) >60 >=60 POWERCHART [id number] eGFR >60 >=60 POWERCHART Black/ [id number] [place] Glucose 114 70 - 139 POWERCHART MGDL Specimen (Source) Anatomical Collection Method Collection Time Re ceived Time Location / / Volume Laterality Blood 08/14/2015 9:15 AM CDT Riley Sanchez M.D. LAB BLOOD ADD-ON Performing Organization Address City/State/ZIP Code Phon e Number POWERCHART documented in this encounter Visit Diagnoses Not on filedocumented in this encounter Additional Health Concerns Assessment Noted Time PHQ-9 Depression Total Score: 17 01/24/2015 11:26 AM C DT documented as of this encounter
--- OUTSIDE RECORDS SUMMARY | 2022-03-29 07:54 | XMS_ITS | Encounter Summary ---
:1950 Author Organization [facility] Address [address] [place] [address] Care Team Providers Name Role Phone Unavailable Primary Care Provider Unavailable Encounter Details Date Type Department Care Team Description 03/04/2016 Hospital Encounter HX [facility] LAB Riley Sanchez M.D. 1518 [facility], [facility] [address] [phone] Social History Tobacco Use Types Packs/Day [...] often do you attend roman catholic or baptist services? 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 - 03/10/2016 11:01 AM CST Results Notification 03/04/2016 Document Contains Addenda Addendum by CHUCKY DUNCAN LPN on March 11, 2016 09:51:47 RATE ANALYST Patient notified of results by Dr. Riley Sanchez. Patient was here for an office visit and results were discussed. From: RILEY SANCHEZ MD To: JOSE Sanchez Nurse; Sent: 03/10/2016 11:01:33 RATE ANALYST Show up: 03/10/2016 10:00:00 RATE ANALYST Subject: Results Notification 03/04/2016 Actions: Notify patient of results Please call. Vitamin B12 and folate are normal. Sed rate(Test for inflammation) is still high, but stable. It was41 on 01/29/2016. Results: Date Result Name Ind Value Ref Range 03/04/2016 09:11 Vitamin B12 Lvl 415 ng/L (180 - 914) 03/04/2016 09:11 Folate Lvl 13.6 mcg/L (>=4.6 - ) 03/04/2016 09:11 Sed Rate (H) 48 mm/hr (0 - 22) Source: [facility] POWERCHART Document Id: [id number] Electronically signed by Conversion, [facility] Development Rep [id number] at 09/29/2016 9:37 AM CDT documented in this encounter Plan of Treatment Upcoming Encounters Date Type Specialty Care Team Description 04/12/2022 Office Visit Cardiovascular Disease Simone Gooden AP RN, C.N.P. [address] [phone] (Wo rk) documented as of this encounter Procedures Procedure Name Priority Date/Time Associated Comments Diagnosis VITAMIN B12 AND Routine 03/04/2016 9:11 AM Result s for this FOLATE, S CDT procedure are i n the results section. SEDIMENTATION RATE, B Routine 03/04/2016 9:11 AM Results for this CDT procedure are i n the results section. documented in this encounter Results (ABNORMAL) Sedimentation Rate (03/04/2016 9:11 AM CDT) [facility] gist Method Time Signature Sedimentation 48 (H) 0 - 22 POWERCHART Rate, B MMHR Specimen (Source) Anatomical Collection Method Collection Time Re ceived Time Location / / Volume Laterality Blood 03/04/2016 9:11 AM CDT Riley Sanchez M.D. LAB BLOOD ADD-ON Performing Organization Address City/State/ZIP Code Phon e Number POWERCHART Vitamin B12 Level and Folate (03/04/2016 9:11 AM CDT) P athologist Signature Vitamin B12 415 660 - 517 POWERCHART Assay, S NGL Comment: Biotin has been identified by the [facility] ctoliviar as a potential interfering substance. Higher concentrations of biotin may be found in multivitamins, hair/nail supplements, and workout supplements. If the result does not match clinical observat ions, repeat testing after patient refrains from the use of supplements for at least 12 hours. Folate, S 13.6 >=4.6 MCGL POWERCHART Comment: Biotin has been identified by the [facility] ctoliviar as a potential interfering substance. Higher concentrations of biotin may be found in multivitamins, hair/nail supplements, and workout supplements. If the result does not match clinical observat ions, repeat testing after patient refrains from the use of supplements for at least 12 hours. Specimen (Source) Anatomical Collection Method Collection Time Re ceived Time Location / / Volume Laterality Blood 03/04/2016 9:11 AM CDT Riley Sanchez M.D. LAB BLOOD NON ADD-ON Performing Organization Address City/State/ZIP Code Phon e Number POWERCHART documented in this encounter Visit Diagnoses Not on filedocumented in this encounter Additional Health Concerns Assessment Noted Time PHQ-9 Depression Total Score: 6 02/12/2016 11:18 AM CD T documented as of this encounter
--- OUTSIDE RECORDS SUMMARY | 2022-03-29 07:54 | XMS_ITS | Encounter Summary ---
:1950 Author Organization [facility] Address [address] [place] [address] Care Team Providers Name Role Phone Unavailable Primary Care Provider Unavailable Encounter Details Date Type Department Care Team Description 06/26/2015 Hospital Encounter H[facility] LAB Tarik Camejo M.D. [address] [place], [place] [phone] (Wo rk) Social History [...] How often do you attend temple or orthodox services? 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 - 06/27/2015 10:50 AM CST Results Notification Document Contains Addenda Addendum by PRUDENCIO LOVE LPN on 27 June 2015 14:51:45 [employer]ACHUTE HARNESS RIGGER Patient notified by mail. From: TAMIKA CAMEJO MD To: Urology Nurse; Sent: 06/27/2015 10:50:23 PARACHUTE HARNESS RIGGER ! Show up: 06/27/2015 10:50:23 PARACHUTE HARNESS RIGGER Subject: Results Notification Actions: Notify patient of results Reminder Comments: ng Results: Date Result Type Ind Result Name MBO Review Culture Urine Source: [facility] POWERCHART Document Id: [id number] Electronically signed by Conversion, [facility] Manager Rn [id number] at 09/28/2016 8:18 AM CDT documented in this encounter Plan of Treatment Upcoming Encounters Date Type Specialty Care Team Description 04/12/2022 Office Visit Cardiovascular Disease Simone Gooden AP RN, C.N.P. [address] [phone] (Wo rk) documented as of this encounter Procedures Procedure Name Priority Date/Time Associated Diagnosis Comme nts BACTERIAL CULTURE, Routine 06/26/2015 8:51 AM Res ults for this AEROBIC, URINE [employer]ACH[employer] HARNESS RIGGER procedure are in the results section. documented in this encounter Results Bacterial Culture, Aerobic, Urine (06/26/2015 8:51 AM PARACHUTE HARNESS RIGGER) Analysis Performed At Patho logist Time Signature Bacterial POWERCHART Culture, Aerobic, Urine HXFinal No growth POWERCHART Specimen (Source) Anatomical Collection Method Collection Time Re ceived Time Location / / Volume Laterality Urine, First 06/26/2015 8:51 AM Voided [employer]ACHUTE HARNESS RIGGER Tamika Camejo M.D. LAB MICROBIOLOGY - GENERAL O RDERABLES Performing Organization Address City/State/ZIP Code Phon e Number POWERCHART documented in this encounter Visit Diagnoses Not on filedocumented in this encounter Additional Health Concerns Assessment Noted Time PHQ-9 Depression Total Score: 17 01/24/2015 11:26 AM C DT documented as of this encounter
--- OUTSIDE RECORDS SUMMARY | 2022-03-29 07:54 | XMS_ITS | Encounter Summary ---
:1950 Author Organization [facility] Address [address] [place] [address] Care Team Providers Name Role Phone Unavailable Primary Care Provider Unavailable Encounter Details Date Type Department Care Team Description 03/04/2016 Hospital Encounter HX NO MAPPING Raymond Palomino M.D. [address] [place], [place] [address] Social History Tobacco Use Types Packs/Day Years [...] How often do you attend anabaptist or jain services? 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 [address] [phone] (Wo rk) documented as of this encounter Visit Diagnoses Not on filedocumented in this encounter Additional Health Concerns Assessment Noted Time PHQ-9 Depression Total Score: 6 02/12/2016 11:18 AM CD T documented as of this encounter
--- OUTSIDE RECORDS SUMMARY | 2022-03-29 07:54 | XMS_ITS | Encounter Summary ---
:1950 Author Organization [facility] Address [address] [place] [address] Care Team Providers Name Role Phone Unavailable Primary Care Provider Unavailable Encounter Details Date Type Department Care Team Description 02/12/2016 Hospital Encounter HX [facility] Riley Jimenez M.D. [address] [facility], [facility] [address] [phone] Social History Tobacco Use Types Packs/Day [...] How often do you attend congregation or latter day services? 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 - 02/12/2016 11:07 AM CDT [id number] CHIEF COMPLAINT/REASON FOR VISIT Proposed surgery date: 02/21/2016. Surgeon: Dr. Jatinder Camejo. Proposed surgery: Cystoscopy with bladder biopsies. Location: [facility]. HISTORY OF PRESENT ILLNESS Mik is a 65-year-old male who presents to the clinic today for a preanesthetic medical evaluation. Neto asked by Dr. Camejo to assess whether Seven Salazar is an adequate candidate for anesthesia forcystoscopy with bladder biopsies on 02/21/2016. They discussed with Dr. Camejo regarding risks, benefits, alternative therapy. He is willing to proceed because the benefits outweigh the risks. He has history of bladder cancer, status post resection in 2009 and 2014 and BCG treatment x 2. He has been followed by Dr. Jatinder Camejo, Urologist. He had cystoscopy on 02/06/2016. There was possibleevidence of active disease with lesion on left lateral wall. It was decided to schedule cystoscopy with bladder biopsies in the OR. He denies any hematuria, dysuria, or urinary symptoms. He has been drinking more water. He needs to quit smoking. Patient mentioned that he did not start Cymbalta (Duloxetine) as recommended at his last visit because it was too expensive. He was given information pamphlet on [facility] Rx. He has had multiple cystoscopies in the past. There have been no complications during or after previous surgeries. Patient denies any personal or family history intolerance to general anesthesia. He denies any previous blood transfusions. There is no personal history of hepatitis, jaundice, bleeding di sorder, or drug resistant infection like MRSA or VRE. There was no family or personal history of blood clots in legs or lungs. Patient denies any chest pain, shortness of breath, dizziness, lightheadedness, coughing up blood or phlegm, or leg swelling. There are no additional questions, concerns, or [...] has one adopted daughter that lives in [place]. He smokes cigarettes, but wants to quit. He denies drug abuse. He drinks alcohol once a week. He is physically active. He works at [employer] in [place], [place]. FAMILY HISTORY Asthma in brother. Father had liver, lung, and pancreas cancer. Lung cancer in sister. Mother has cataract and glaucoma. Hearing loss in father. Hypertension in mother and brother. Myocardial infarction in older brother. Parkinsons disease in father. No family history of colon cancer or glaucoma. VITAL SIGNS HEIGHT: 173 cm. WEIGHT: 97 kg. BMI: 32.41 kg/m2. TEMP: 36.8 Deg C. PULSE: 86 /min. RESP: 16 /min. O2SAT: 96 %. SYSTOLIC: 119 mmHg. DIASTOLIC: 71 mmHg. PHYSICAL EXAMINATION GENERAL: Patient is sitting. [...] affect. NEURO: Grossly nonfocal exam. IMPRESSION/REPORT/PLAN 1. Preoperative medical evaluation prior to cystoscopy with bladder biopsies on 02/21/2016. The patient is stable from a cardiac and respiratory standpoint. There is no absolute contraindication for planned procedure. They discussed with Dr. Camejo regarding risks, benefits, alternative therapy. He is willing to proceed because the benefits outweigh the risks. Todays EKG showed normal sinus rhythm,premature atrial complexes, right superior axis deviation, right bundle branch block with secondary ST-T abnormalities, ventricular rate 85 BPM. He should be NPO the night before surgery. He will take no medication the morning of surgery. He can use Albuterol inhaler if needed. 2. Bladder lesion with history of bladder cancer. He had cystoscopy on 02/06/2016 that showed possible evidence of active disease. He will proceed with procedure outlined above. 3. Urethra stricture, non-obstructing. There were no problems with urination. He is followed by Dr. Camejo. 4. Benign essential hypertension. Blood pressure is controlled. He is stable from a cardiac standpoint. Chest x-ray was normal on 02/05/2016. Need to continue sodium controlled diet and current medication. Blood pressure goal is less than 140/90 mmHg. Need to continue cardiovascular risk factors modifi cation. 5. Tobacco abuse. I strongly recommended smoking cessation. He is not ready yet. We discussed complications. 6. Discussed test results. I reviewed test results from 01/29/2016. All questions were answered. Todays studies: EKG. Patient will be notified with results & recommendations. The patient will return to the clinic as previously scheduled for blood tests in February 2016 and followup in March 2016. Please send a copy to Dr. Camejo. Thank you for allowing me to participate in the care of this patient. This document serves as a record of services personally performed by Dr. Riley Sanchez. It was created on their behalf by Juan Ramos, a trained medical numerical control operator. The creation of this record is based on the scribe's personal observations and the provider's statements to them. This document has been checked and approved by the attending provider. Riley Sanchez M.D./arti Electronically Signed By: RILEY SANCHEZ MD On: 02/15/2016 08:50 AM Modified by and Electronically Signed by: RILEY SANCHEZ MD On: 02/15/2016 08:50 AM Source: [facility] MHSDOLBEYNONRADSYS Document Id: [id number] documented in this encounter Nursing Notes Riley Sanchez M.D. - 02/12/2016 11:48 AM CDT Ambulatory Patient Education The following Patient Education Materials have been given to the patient: Patient Education Materials: Source: [facility] POWERCHART Document Id: [id number] documented in this encounter Miscellaneous Notes Miscellaneous - Riley Sanchez M.D. - 02/12/2016 11:48 AM CDT Ambulatory Patient Summary [address] [id number] Visit Information Name: CHRISSILASFRANKI AVINA [facility] Number: [id number] Current Date: 02/12/2016 11:48:18 Physicians Attending Provider: RILEY SANCHEZ MD Primary Care Provider: RILEY SANCHEZ MD CHRIS SEVEN AVINA has been given the following list of follow-up instructions, medication list, and patient education materials: Follow-up Instructions With: Address: When: Do not eat or drink after 02/20/2016 midnight. Do not take oral medications on 02/21/2016 morning and take it after the surgery. You may use inhaler as needed prior to the surgery. Your Medications Here is a list of [...] the Following Medications: Medication list as of 02-12-16 11:48 Attention: If you have any medications at [...] Electronically Signed By: RILEY SANCHEZ MD Signed On:12-FEB-2016 11:46:23 Your Allergies & Intolerances Substance Reaction Symptoms [...] Your Upcoming Appointments Date Time Location Provider 02/29/2016 14:45 [facility] Jatinder Camejo MD 03/04/2016 09:15 [facility] 03/11/2016 09:15 [facility] Riley Sanchez MD Attention: Contact [...] if you dont have one. Go to [email or web address] and click on Create Your Account. Then, follow the directions to complete the online form. Youll be asked for your [facility] number which you can find at the top of this document. Your Goals/Additional instructions: Source: [facility] POWERCHART Document Id: [id number] Miscellaneous - Riley Sanchez M.D. - 02/12/2016 11:48 AM CDT Ambulatory Discharge Medication List [address] [id number] Visit Information Name: SEVEN SALAZAR [facility] Number: [id number] Current Date: 02/12/2016 11:48:17 Attending Provider: RILEY SANCHEZ MD Primary Care [...] the Following Medications: Medication list as of 02-12-16 11:48 Attention: If you have any medications at [...] Electronically Signed By: RILEY SANCHEZ MD Signed On:12-FEB-2016 11:46:23 Additional Information: Source: [employer] Document Id: [id number] Miscellaneous - Chucky Duncan L.P.N. - 02/12/2016 11:23 AM CDT Obstructive Sleep Apnea Obstructive Sleep Apnea Entered On: 02/12/2016 11:25 CDT Performed On: 02/12/2016 11:23 CDT by CHUCKY DUNCAN LPN MICKEY Screening Known Obstructive Sleep Apnea : No - NOT diagnosed with MICKEY MICKEY Score : No qualifying data available. MICKEY Results : No qualifying data available. CHUCKY DUNCAN LPN - 02/12/2016 11:23 CDT MICKEY Assessment Do you have high blood pressure or have you been told to take medication for high blood pressure? : Yes Frequency of Snoring HTN : Never Frequency of Gasping, Choking, Snorting HTN : Never Total Number of Historical Features HTN : 0 Neck Circumference - MICKEY - HTN : 46/47 Total Sleep Apnea Clinical Score HTN Calc : 21 CHUCKY DUNCAN LPN - 02/12/2016 11:23 CDT Source: [employer] Document Id: [id number] CDT!12 Mook - Chucky Duncan L.P.N. - 02/12/2016 11:18 AM CDT PHQ-9 PHQ-9 Entered On: 02/12/2016 11:20 CDT Performed On: 02/12/2016 11:18 CDT by CHUCKY DUNCAN LPN PHQ-9 Little interest or pleasure in doing things : Several days Feeling down, depressed, or hopeless : Several days Trouble falling or staying asleep, or sleeping too much : Several days Feeling tired or having little energy : Several days Poor appetite or overeating : Not at all Feeling bad about yourself or that you are a failure : Several days Trouble concentrating on things : Several days Moving or speaking slowly; restless or fidgety : Not at all Thoughts that you would be better off /hurting self : Not at all PHQ-9 Calculated Score : 6 Problems make work, home, or dealing with others : Somewhat difficult CHUCKY DUNCAN LPN - 02/12/2016 11:18 CDT Source: [employer] Document Id: [id number] CDT!13 Mook - Chucky Duncan L.PBhaveshNBhavesh - 02/12/2016 11:13 AM CDT 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 Pre-op: Cystoscopy with bladder biopsies - Dr. Camejo on 02/21/2016 at the [facility] Temperature Core : 36.8 DegC(Converted to: 98.2 DegF) Peripheral Pulse Rate : 86 /min Respiratory Rate : 16 /min Systolic Blood Pressure : 119 mmHg Diastolic Blood Pressure : 71 mmHg NIBP Mean : 87 mmHg BP Location : Left upper extremity Blood Pressure Cuff Size : Large SpO2 : 96 % Oxygen Therapy : Room air Height : 173 cm(Converted to: 5 ft 8 inch(es), 68 inch(es)) Actual Weight : 97 kg(Converted to: 213 lb 14 oz) Weight Source : Standing scale Dosing Weight Clinic : 97 kg Clinic BSA : 2.16 Body Mass Index : 32.41 kg/m2 CHUCKY DUNCAN LPN - 02/12/2016 11:13 CDT General Info Information Given By : Patient Preferred Communication Mode : Verbal, Written Languages : Sinhala Is Patient Female and 13-50 no hysterectomy : No CHUCKY DUNCAN LPN - 02/12/2016 11:13 CDT Subjective Pain Symptoms : No CHUCKY DUNCAN LPN - 02/12/2016 11:13 CDT Dependent Habits Exposure to Tobacco Smoke : Other: patient had quit but is now smoking some now and then Smoking Status : Current every day smoker Tobacco 2A : Yes Tobacco Use/Currently Using : Yes Tobacco Use/Last 30 Days : Yes Tobacco Use/Last 12 months : Yes Type : Cigarettes: Less than 20 per day Tobacco Use/Advised to Quit : Yes CHUCKY DUNCAN LPN - 02/12/2016 11:13 CDT Caffeine Use Grid Caffeine Use : Current Type : Coffee, Tea Frequency : Daily Amount : 2 cup coffee/2 tea daily CHUCKY DUNCAN [facility] - 02/12/2016 11:13 CDT Recreational Drug Use Grid Drug Use : None CHUCKY DUNCAN LPN - 02/12/2016 11:13 CDT Source: [facility] POWERCHART Document Id: [id number] CDT!44 documented in this encounter Plan of Treatment Upcoming Encounters Date Type Specialty Care Team Description 04/12/2022 Office Visit Cardiovascular Disease Simone Gooden AP RN, C.N.P. [address] [phone] (Wo rk) documented as of this encounter Procedures Procedure Name Priority Date/Time Associated Diagnosis Comme nts ECG Routine 02/12/2016 12:17 PM Results for this CDT procedure are i n the results section . documented in this encounter Results ECG 12 Lead (02/12/2016 12:17 PM CDT) Specimen (Source) Anatomical Collection Method Collection Time Re ceived Time Location / / Volume Laterality 02/12/2016 12:17 PM CDT Narrative [facility] - 02/12/2016 12:17 PM CDT Test Reason : HTN. PREOP Blood Pressure : / mmHG Vent. Rate : 085 BPM ? Atrial Rate : 085 BPM ?? P-R Int : 188 ms ?QRS D ur : 126 ms ?QT Int : 390 ms ? P-R-T Axe s : 039 195 047 degrees ?? QTc Int : 464 ms Poor data quality Normal sinus rhythm Premature atrial complexes Right superior axis deviation Right bundle branch block with secondary ST-T abnormalities When compared with ECG of 18-MAY-1999 10 :19, Significant changes have occurred ?? Referred By: RILEY SANCHEZ ? C onfirmed By:LOLI ANDERS MD Procedure Note Provider, Javid Samson - 09/19/2016F ormatting of this note might be different from the original. Test Reason : HTN. PREOP Blood Pressure : / mmHG Vent. Rate : 085 BPM Atrial Rate : 085 B PM P-R Int : 188 ms QRS Dur : 126 ms QT Int : 390 ms P-R-T Axes : 039 195 04 7 degrees QTc Int : 464 ms Poor data quality Normal sinus rhythm Premature atrial complexes Right superior axis deviation Right bundle branch block with secondary ST-T abnormalities When compared with ECG of 18-MAY-1999 10 :19, Significant changes have occurred Referred By: RILEY SANCHEZ Confirmed By:LACEY ANDERS MD Loli Anders M.D., M.B. ECG ORDERABLES Performing Organization Address City/State/ZIP Code Phon e Number [facility] [address] [place] [address] documented in this encounter Visit Diagnoses Not on filedocumented in this encounter Additional Health Concerns Assessment Noted Time PHQ-9 Depression Total Score: 6 02/12/2016 11:18 AM CD T documented as of this encounter
--- OUTSIDE RECORDS SUMMARY | 2022-03-29 07:54 | XMS_ITS | Encounter Summary ---
:1950 Author Organization [facility] Address [address] [place] [address] Care Team Providers Name Role Phone Unavailable Primary Care Provider Unavailable Encounter Details Date Type Department Care Team Description 02/29/2016 Hospital Encounter HX [facility] Tamika Camejo M.D. [address] [place] [phone] (Wo rk) Social History Tobacco [...] How often do you attend mandaen or mormonism services? 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 - 02/29/2016 2:35 PM CDT [id number] CHIEF COMPLAINT/REASON FOR VISIT Bladder cancer. 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 This was grade 1 stage TA transitional cell cancer. He had 6 weeks of BCG as inductiontherapy. The patient had a recurrence resected on January 02, 2015 which was also grade 1 stage TA and had a second 6- week course of BCG. Additionally he is known to have a wide bore bulbous urethral stricture which is not obstructing. Last week he was taken to the operating room and another lesion wasresected. This was again stage TA grade 1. It was a very early recurrence. IMPRESSION/REPORT/PLAN Bladder cancer, recurrent. This is his second recurrence. All lesions have been transitional cell carcinoma of the urinary bladder grade 1 stage TA. As I see it, there are 3 viable options. First option is continued observation with cystoscopy in 3 months. If he has a rapid recurrence proceed to options 2 or 3. [address] mit[address]-C in his bladder within the next week or so. By doing it relatively early, it would be a single instillation. We did discuss potential risks associated with this which would include bladder pain and discomfort for a few weeks to months afterward. The 3rd option is to do another 6-week induction course of intravesical BCG combined with mitomycin-C and then continuing with maintenance BCG. I would note that about a year ago while receiving BCG patient was admitted to [facility] with severe arthritic symptoms. It was not definitively confirmed whether this was simply a flare of his arthritis or whether this flare was secondary to the BCG. Patient would prefer to continue therapy with a known entity and hence has elected to proceed with BCG. Will make arrangements to start the BCG in the next week or 2. I plan on using a combination of BCG and interferon. If after the first treatment the patient's arthritic symptoms have gotten significantly worse the BCG will be discontinued and we will switch gears to a single instillation of mitomycin-C. In the event that we do the mitomycin C we will need to explore whether this can be done in theoffice setting or in ambulatory surgery at the hospital. Tamika Camejo M.D./susan cc: Riley Sanchez M.D. [facility] in [address] [place] [address]. [place] [address] Electronically Signed By: TAMIKA CAMEJO MD On: 03/04/2016 07:43 AM Source: [facility] MHSDOLBEYNONRADSYS Document Id: [id number] documented in this encounter Miscellaneous Notes Miscellaneous - Tamika Camejo M.D. - 02/29/2016 3:37 PM CDT Ambulatory Patient Summary [facility] [address] [place], [place] [id number] Visit Information Name: SEVEN SALAZAR [facility] Number: [id number] Current Date: 02/29/2016 15:37:21 Physicians Attending Provider: TAMIKA CAMEJO MD Primary [...] the Following Medications: Medication list as of 02-29-16 15:37 Attention: If you have any medications at [...] Electronically Signed By: TAMIKA CAMEJO MD Signed On:29-FEB-2016 15:37:17 Your Allergies & Intolerances Substance Reaction Symptoms [...] Appointments Date Time Location Provider 03/04/2016 09:15 [facility] 03/11/2016 09:15 [facility] Riley Sanchez MD Attention: Contact [...] if you dont have one. Go to [email or web address] and click on Create Your Account. Then, follow the directions to complete the online form. Youll be asked for your [facility] number which you can find at the top of this document. Your Goals/Additional instructions: Source: [facility] POWERCHART Document Id: [id number] Miscellaneous - Tamika Camejo M.D. - 02/29/2016 3:37 PM CDT Ambulatory Discharge Medication List [facility] [address] [place] [id number] Visit Information Name: SEVEN SALAZAR [facility] Number: [id number] Current Date: 02/29/2016 15:37:20 Attending Provider: TAMIKA CAMEJO MD Primary Care [...] the Following Medications: Medication list as of 02-29-16 15:37 Attention: If you have any medications at [...] Electronically Signed By: TAMIKA CAMEJO MD Signed On:29-FEB-2016 15:37:17 Additional Information: Source: [facility] POWERCHART Document Id: [id number] Miscellaneous - Shellie Irwin, LBhaveshP.N. 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 Adult Lab Associate Intake/History Entered On: 02/29/2016 14:49 CDT Performed On: 02/29/2016 14:45 CDT by SHELLIE IRWIN LPN Intake Chief Complaint : review pathology Temperature Core : 36.4 DegC(Converted to: 97.5 DegF) (LOW) Peripheral Pulse Rate : 80 /min Systolic Blood Pressure : 110 mmHg Diastolic Blood Pressure : 76 mmHg NIBP Mean : 87 mmHg BP Location : Left upper extremity Blood Pressure Cuff Size : Regular Height : 173 cm(Converted to: 5 ft 8 inch(es), 68 inch(es)) SHELLIE IRWIN LPN - 02/29/2016 14:45 CDT General Info Information Given By : Patient Preferred Communication Mode : Verbal Languages : [place]ese Is Patient Female and 13-50 no hysterectomy : No SHELLIE IRWIN LPN - 02/29/2016 14:45 CDT Subjective Pain Symptoms : No SHELLIE IRWIN LPN - 02/29/2016 14:45 CDT Dependent Habits Exposure to Tobacco Smoke [...] Quit : Yes Alcohol Use : Yes SHELLIE IRWIN [facility] - 02/29/2016 14:45 CDT Caffeine Use Grid Caffeine Use : Current Type : Coffee, Tea Frequency : Daily Amount : 2 cup coffee/2 tea daily SHELLIE IRWIN [facility] - 02/29/2016 14:45 CDT Recreational Drug Use Grid Drug Use : None SHELLIE IRWIN [facility] 02/29/2016 14:45 CDT Source: [employer] Document Id: [id number] CDT!37 documented in this encounter Plan of Treatment Upcoming Encounters Date Type Specialty Care Team Description 04/12/2022 Office Visit Cardiovascular Disease Simone Gooden AP RN, C.N.P. [address] [phone] (Wo rk) documented as of this encounter Visit Diagnoses Not on filedocumented in this encounter Additional Health Concerns Assessment Noted Time PHQ-9 Depression Total Score: 6 02/12/2016 11:18 AM CD T documented as of this encounter
--- OUTSIDE RECORDS SUMMARY | 2022-03-29 07:54 | XMS_ITS | Encounter Summary ---
:1950 Author Organization [facility] Address [address] [place] [address] Care Team Providers Name Role Phone Unavailable Primary Care Provider Unavailable Encounter Details Date Type Department Care Team Description 03/19/2016 Hospital Encounter HX [facility] Tarik Camejo M.D. [address] [place], [place] [phone] (Wo rk) Social History [...] How often do you attend hindu or cheondoism services? 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 documented as of this encounter Miscellaneous Notes Miscellaneous - Tamika Camejo M.D. - 03/19/2016 10:10 AM CST Results Notification Document Contains Addenda Addendum by ADILSON IRWIN LPN on March 19, 2016 11:46:41 SUBSTATION OPERATOR HELPER Patient received his BCG and interferon treatment today and was told results. From: TAMIKA CAMEJO MD To: Urology Nurse; Sent: 03/19/2016 10:10:20 SUBSTATION OPERATOR HELPER ! Show up: 03/19/2016 10:10:20 SUBSTATION OPERATOR HELPER Subject: Results Notification Actions: Notify patient of results Reminder Comments: ok, but get uc Results: Date Result Name Ind Value Ref Range 03/19/2016 09:43 UA Color Yellow (Yellow - ) 03/19/2016 09:43 UA Clarity Clear (Clear - ) 03/19/2016 09:43 UA Spec Grav 1.013 (1.001 - 1.035) 03/19/2016 09:43 UA pH 7.5 03/19/2016 09:43 UA Protein Negative (Negative - ) 03/19/2016 09:43 UA Glucose Negative (Negative - ) 03/19/2016 09:43 UA Ketones Negative (Negative - ) 03/19/2016 09:43 UA Bili Negative (Negative - ) 03/19/2016 09:43 UA Urobilinogen 0.2 mg/dL (0.2 - ) 03/19/2016 09:43 UA Blood Negative (Negative - ) 03/19/2016 09:43 UA Nitrite Negative (Negative - ) 03/19/2016 09:43 UA Leuk Est (*) Moderate (Negative - ) 03/19/2016 09:43 UR WBC (*) 11-20 /HPF (None Seen - ) 03/19/2016 09:43 UR RBC Occ-2 /HPF (None Seen - ) Source: [facility] POWERCHART Document Id: [id number] Electronically signed by Conversion, [facility] Call Center Consultant [id number] at 09/29/2016 7:15 AM CDT documented in this encounter Plan of Treatment Upcoming Encounters Date Type Specialty Care Team Description 04/12/2022 Office Visit Cardiovascular Disease Simone Gooden AP RN, C.N.P. [address] [facility] [phone] (Wo rk) documented as of this encounter Procedures Procedure Name Priority Date/Time Associated Comments Diagnosis URINALYSIS WITH Routine 03/19/2016 9:43 AM Result s for this MICROSCOPIC SUBSTATION OPERATOR HELPER procedure are i n the results section. BACTERIAL CULTURE, Routine 03/19/2016 9:43 AM Res ults for this AEROBIC, URINE SUBSTATION OPERATOR HELPER procedure are in the results section. documented in this encounter Results (ABNORMAL) Urinalysis, Complete, Includes Microscopic (03/19/2016 9:43 AM SUBSTATION OPERATOR HELPER) Patholo gist Method Time Signature HXUR WBC. 11-20 (A) None Seen POWERCHART HPF HXUR RBC. Occ-2 None Seen POWERCHART HPF HXUr Color Yellow Yellow POWERCHART Clarity Clear Clear POWERCHART Glucose Negative Negative POWERCHART HXBILIRUBIN Negative Negative POWERCHART Ketones, QL(U) Negative Negative POWERCHART Specific 1.013 1.001 - POWERCHART [place], POCT, 1.035 U Comment: Reference Range Specific [place]: 1.000-1.035 pH, POCT, Urine 7.5 POWERCHART Comment: UA pH Reference Range pH: 5.0-8.0 Protein, Ur, Dip Negative Negative POWERCHART Urobilinogen 0.2 0.2 MGDL POWERCHART Comment: Reference Range Urobilinogen: 0.2-1.0 mg/dL HXNITRITE Negative Negative POWERCHART HXBLOOD Negative Negative POWERCHART Leukocyte Esterase Moderate (A) Negative POWERCHA RT Specimen (Source) Anatomical Collection Method Collection Time Re ceived Time Location / / Volume Laterality Urine, First 03/19/2016 9:43 AM Voided SUBSTATION OPERATOR HELPER Tamika Camejo M.D. LAB URINE ORDERABLES Performing Organization Address City/State/ZIP Code Phon e Number POWERCHART Bacterial Culture, Aerobic, Urine (03/19/2016 9:43 AM SUBSTATION OPERATOR HELPER) Analysis Performed At Patho logist Time Signature Bacterial POWERCHART Culture, Aerobic, Urine HXFinal No growth POWERCHART Specimen (Source) Anatomical Collection Method Collection Time Re ceived Time Location / / Volume Laterality Urine, First 03/19/2016 9:43 AM Voided SUBSTATION OPERATOR HELPER Tamika Camejo M.D. LAB MICROBIOLOGY - GENERAL O RDERABLES Performing Organization Address City/State/ZIP Code Phon e Number POWERCHART documented in this encounter Visit Diagnoses Not on filedocumented in this encounter Additional Health Concerns Assessment Noted Time PHQ-9 Depression Total Score: 10 03/11/2016 8:34 AM CS T documented as of this encounter
--- OUTSIDE RECORDS SUMMARY | 2022-03-29 07:54 | XMS_ITS | Encounter Summary ---
:1950 Author Organization [facility] Address [address] [place] [address] Care Team Providers Name Role Phone Unavailable Primary Care Provider Unavailable Encounter Details Date Type Department Care Team Description 03/19/2016 Hospital Encounter HX NO MAPPING Darlene Camejo M.D. [address] [place], [place] [phone] (Wo rk) Social History [...] How often do you attend yarsani or caodaism services? 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 documented as of this encounter Miscellaneous Notes Miscellaneous - Conversion, Historical Provider Ser - 03/19/2016 11:59 PM RECYCLING OPERATOR Coding Summary-Paper Based CODING DATE: 03/29/2016 FINAL [facility] STATUS: * Discharged to Home or [...] terminology. Coded By: MARGE BROWNING Date Saved: 03/29/2016 06:45 am Source: Mila Document Id: [id number] documented in this encounter Plan of Treatment Upcoming Encounters Date Type Specialty Care Team Description 04/12/2022 Office Visit Cardiovascular Disease Simone Gooden AP RN, C.N.P. [address] [phone] (Wo rk) documented as of this encounter Visit Diagnoses Not on filedocumented in this encounter Additional Health Concerns Assessment Noted Time PHQ-9 Depression Total Score: 10 03/11/2016 8:34 AM CS T documented as of this encounter
--- OUTSIDE RECORDS SUMMARY | 2022-03-29 07:54 | XMS_ITS | Encounter Summary ---
:1950 Author Organization [facility] Address [address] [place] [address] Care Team Providers Name Role Phone Unavailable Primary Care Provider Unavailable Encounter Details Date Type Department Care Team Description 10/31/2015 Hospital Encounter HX NO MAPPING Darlene Camejo M.D. [address] [place], [place] [phone] (Wo rk) Social History [...] How often do you attend episcopal or hindu services? 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 [address] [place] [phone] (Wo rk) documented as of this encounter Visit Diagnoses Not on filedocumented in this encounter Additional Health Concerns Assessment Noted Time PHQ-9 Depression Total Score: 17 01/24/2015 11:26 AM C DT documented as of this encounter
--- OUTSIDE RECORDS SUMMARY | 2022-03-29 07:54 | XMS_ITS | Encounter Summary ---
:1950 Author Organization [facility] Address [address] [place] [address] Care Team Providers Name Role Phone Unavailable Primary Care Provider Unavailable Encounter Details Date Type Department Care Team Description 07/03/2015 Hospital Encounter HX [facility] Riley Jimenez M.D. [address] [facility] [address] [place] [phone] Social History Tobacco Use Types Packs/Day [...] How often do you attend restorationist or sikh services? 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 - 07/03/2015 8:03 AM CST [id number] CHIEF COMPLAINT/REASON FOR VISIT 1. Followup on chronic medical problems. 2. Discuss test results. HISTORY OF PRESENT ILLNESS Mik is a 65-year-old male who presents to the clinic today for a one month followup from 05/15/2015.We discussed test results from 06/15/2015. Results were remarkable for sedimentation rate 27. WBC was normal. He is doing well. He completed BCG treatment last 06/26/2015, for bladder cancer. He denies any hematuria. He is following with Dr. Jatinder Camejo, Urologist regularly. His aches and pains are OK. He has occasional arthritic pains. He feels some relief in muscle aches and pains after stopping Pravastatin. He is currently taking Prednisone 15 mg daily for polymyalgia rheumatica. His sedimentation rate is slightly elevated. His blood pressure is high today. He feels it is due to Prednisone. He took Lasix in the past for leg swelling. It was stopped because he no longer hat leg swelling. He also took Lisinopril-hydrochlorothiazide in the past. He was hospitalized on 02/06/2015 and after discharge, Lisinopril-hydrochlorothiazide was switched to Lisinopril only. He denies any leg swelling today. The patient denies any chest pain, shortness of breath, dizziness, lightheadedness, coughing up blood or phlegm, or leg swelling. He continues to smoke cigarettes, about five cigarettes a day. I reviewed and updated his medication list. We discussed potential side effects. There are no additional questions, concerns, or complaints. MEDICATIONS Albuterol CFC 90 mcg/inh 2 puffs every 4 hours as needed. Hydrochlorothiazide 25 mg by mouth daily in the morning. Lisinopril 40 mg by mouth daily in the morning. Prednisone 10 mg by mouth daily in the morning. ALLERGIES Influenza vaccine. Pravastatin. Wellbutrin. SYSTEMS REVIEW Please see HPI for pertinent positives, otherwise rest of ROS negative. PAST MEDICAL/SURGICAL HISTORY Reviewed and updated as per the EHR on 07/03/2015. PREVENTIVE SERVICES Reviewed and updated as per the EHR on 07/03/2015. SOCIAL HISTORY Reviewed and updated as per the EHR on 07/03/2015. FAMILY HISTORY Reviewed and updated as per the EHR on 07/03/2015. VITAL SIGNS HEIGHT: 172 cm. WEIGHT: 108 kg. BMI: 36.51 kg/m2. PULSE: 90 /min. RESP: 16 /min. SYSTOLIC: 158 mmHg. DIASTOLIC: 79 mmHg. SR: 158/93 mmHg. PHYSICAL EXAMINATION GENERAL: Patient is sitting. No distress. Able to talk without interruption. LYMPH NODES: No cervical or supraclavicular lymphadenopathy. PERIPHERAL VESSELS: Good radial pulses. HEART: No carotid bruit. No JVD. Regular rhythm. There is no S3, gallop, murmur, or thrill. LUNGS: Normal respiratory effort. Clear to auscultation. Normal percussion. EXTREMITIES: No clubbing, cyanosis, edema, infection, or calf tenderness. IMPRESSION/REPORT/PLAN 1. Urinary Bladder cancer, lateral Wall. He completed BCG therapy last week. He will follow with on 07/10/2015 with cystoscopy. 2. Leukocytosis. It is resolved. We will monitor clinically. 3. Chronic hypertension. Blood pressure is high secondary to Prednisone therapy, which can also cause weight gain, smoking, and fluid retention. He is stable from a cardiac standpoint. It was decided to start Hydrochlorothiazide 25 mg by mouth daily in the morning. We discussed potential side effects from medication, including but not limited to, gout. He will continue Lisinopril 40 mg by mouth dailyin the morning. Need to continue sodium controlled diet. Blood pressure goal is less than 140/90 mmHg. Need to continue cardiovascular risk factors modification. He will return in 2 weeks for blood pressure check with a nurse. 4. Polymyalgia rheumatica. It is stable with medication, currently Prednisone 15 mg daily. There were no side effects. We need to gradually decrease Prednisone. It was decided to decrease Prednisone to10 mg daily. If he tolerates lower dosage, we will continue to decrease Prednisone. We need to monitor BMP, CBC, and Sedimentation rate every month. 5. Tobacco abuse. He is working on cutting back. I recommended smoking cessation. We discussed complications. 6. Discussed test results. I reviewed test results from 06/15/2015. All questions were answered. The patient will return to the clinic in 2 weeks for blood pressure check and blood tests: BMP, HCV,and Sed rate. The patient will return to the clinic in 3 months for followup. This document serves as a record of services personally performed by Dr. Riley Sanchez. It was created on their behalf by Juan Ramos, a trained emergency medical service coordinator. The creation of this record is based on the scribe's personal observations and the provider's statements to them. This document has been checked and approved by the attending provider. Riley Sanchez M.D./arti Electronically Signed By: RILEY SANCHEZ MD On: 07/08/2015 10:19 PM Modified by and Electronically Signed by: RILEY SANCHEZ MD On: 07/08/2015 10:19 PM Source: [facility] [id number] Document Id: [id number] E CLERK CHECKER documented in this encounter Miscellaneous Notes Miscellaneous - Riley Sanchez M.D. - 07/03/2015 8:43 AM CST Ambulatory Patient Summary [address] [id number] Visit Information Name: [facility] Number: [id number] Current Date: 07/03/2015 08:43:15 Physicians Attending Provider: RILEY SANCHEZ MD Primary [...] Oral, once a day (in the morning) New Routed to [address] [phone] lisinopril (lisinopril 40 mg oral tablet) 1 Tablet(s), Oral, once a day (in the morning) predniSONE (predniSONE 20 mg oral tablet) 0.5 Tablet(s), Oral, once a day (in the morning) with food/ Dose decreased to 15 mg daily on 05/15/2015. predniSONE (predniSONE 5 mg oral tablet) 1 Tablet(s), Oral, once a day (in the morning) with food. Take with 0.5 tablet of 20 mg pill, total 15 mg daily. Stop Taking the Following Medications: BCG (BCG 81 mg intravesical irrigation) Misc Prescription (Misc Prescription) ubiquinone (Co-Q10 200 mg oral capsule) Medication list as of 07-03-15 08:43 Attention: If you have any medications at [...] Electronically Signed By: RILEY SANCHEZ MD Signed On:03-JUL-2015 08:43:08 Your Allergies & Intolerances Substance Reaction Symptoms [...] of Lateral Wall of Urinary Bladder Active Your Upcoming Appointments Date Time Location Provider 07/10/2015 09:45 [facility]rology Jatinder Camejo MD Attention: Contact [...] if you dont have one. Go to [email or web address] and click on Create Your Account. Then, follow the directions to complete the online form. Youll be asked for your [facility] number which you can find at the top of this document. Your Goals/Additional instructions: Source: [facility] POWERCHART Document Id: [id number] E CLERK CHECKER Miscellaneous - Riley Sanchez M.D. - 07/03/2015 8:43 AM CST Ambulatory Discharge Medication List [address] [place] [phone] Visit Information Name: [facility] Number: [id number] Visit Date: 07/03/2015 08:43:13 Attending Provider: RILEY SANCHEZ MD Primary Care [...] Oral, once a day (in the morning) New Routed to [address] [phone] lisinopril (lisinopril 40 mg oral tablet) 1 Tablet(s), Oral, once a day (in the morning) predniSONE (predniSONE 20 mg oral tablet) 0.5 Tablet(s), Oral, once a day (in the morning) with food/ Dose decreased to 15 mg daily on 05/15/2015. predniSONE (predniSONE 5 mg oral tablet) 1 Tablet(s), Oral, once a day (in the morning) with food. Take with 0.5 tablet of 20 mg pill, total 15 mg daily. Stop Taking the Following Medications: BCG (BCG 81 mg intravesical irrigation) Misc Prescription (Misc Prescription) ubiquinone (Co-Q10 200 mg oral capsule) Medication list as of 07-03-15 08:43 Attention: If you have any medications at [...] Electronically Signed By: RILEY SANCHEZ MD Signed On:03-JUL-2015 08:43:08 Additional Information: Source: [facility] YobbleCHART Document Id: [id number] E CLERK CHECKER Miscellaneous - Juany Duncan L.P.N. - 07/03/2015 8:16 AM CST Ambulatory Vitals Height Weight Ambulatory Vitals Height Weight Entered On: 07/03/2015 8:16 STORE CLERK CHECKER Performed On: 07/03/2015 8:16 STORE CLERK CHECKER by JUANY DUNCAN LPN Vitals/Ht/Wt Peripheral Pulse Rate : 88 /min Systolic Blood Pressure : 158 mmHg (HI) Diastolic Blood Pressure : 93 mmHg (>HHI) NIBP Mean : 115 mmHg BP Location : Right upper extremity Blood Pressure Cuff Size : Large Height : 172 cm(Converted to: 5 ft 8 inch(es), 68 inch(es)) JUAYN DUNCAN LPN - 07/03/2015 8:16 STORE CLERK CHECKER Source: [facility] CBTec Document Id: [id number] STORE CLERK CHECKER!9 E CLERK CHECKER Miscellaneous - Juany Duncan, L.P.N. - 07/03/2015 8:08 AM CST Adult [employer]ale [employer] Intake/History Adult [employer]ale [employer]er [employer] Intake/History Entered On: 07/03/2015 8:16 STORE CLERK CHECKER Performed On: 07/03/2015 8:08 STORE CLERK CHECKER by JUANY DUNCAN LPN Intake Chief Complaint : 1. One month follow-up from 05/15/2015 Peripheral Pulse Rate : 90 /min Respiratory Rate : 16 /min Systolic Blood Pressure : 158 mmHg (HI) Diastolic Blood Pressure : 79 mmHg NIBP Mean : 105 mmHg BP Location : Right upper extremity Blood Pressure Cuff Size : Large Height : 172 cm(Converted to: 5 ft 8 inch(es), 68 inch(es)) Actual Weight : 108 kg(Converted to: 238 lb 2 oz) Weight Source : Standing scale Dosing Weight Clinic : 108 kg Clinic BSA : 2.27 Body Mass Index : 36.51 kg/m2 JUANY DUNCAN LMSW - 07/03/2015 8:08 STORE CLERK CHECKER General Info Information Given By : Patient Preferred Communication Mode : Verbal, Written Languages : Greek Is Patient Female and 13-50 no hysterectomy : No JUANY DUNCAN LMSW - 07/03/2015 8:08 STORE CLERK CHECKER Subjective Pain Symptoms : No JUANY DUNCAN LMSW - 07/03/2015 8:08 STORE CLERK CHECKER Dependent Habits Exposure to Tobacco Smoke : Other: patient had quit but is now smoking some now and then Smoking Status : Current every day smoker Tobacco 2A : Yes Tobacco Use/Currently Using : Yes Tobacco Use/Last 30 Days : Yes Tobacco Use/Last 12 months : Yes Type : Cigarettes: Less than 20 per day Tobacco Use/Advised to Quit : Yes JUANY DUNCAN LMSW - 07/03/2015 8:08 STORE CLERK CHECKER Caffeine Use Grid Caffeine Use : Current Type : Coffee, Tea Frequency : Daily Amount : 2 cup coffee/2 tea daily JUANY DUNCAN LMSW - 07/03/2015 8:08 STORE CLERK CHECKER Recreational Drug Use Grid Drug Use : None JUANY DUNCAN LMSW - 07/03/2015 8:08 STORE CLERK CHECKER [facility] Document Id: [id number] STORE CLERK CHECKER!41 E CLERK CHECKER documented in this encounter Plan of Treatment Upcoming Encounters Date Type Specialty Care Team Description 04/12/2022 Office Visit Cardiovascular Disease Simone Gooden AP RN, C.N.P. [address] [phone] (Wo rk) documented as of this encounter Visit Diagnoses Not on filedocumented in this encounter Additional Health Concerns Assessment Noted Time PHQ-9 Depression Total Score: 17 01/24/2015 11:26 AM C DT documented as of this encounter
--- OUTSIDE RECORDS SUMMARY | 2022-03-29 07:54 | XMS_ITS | Encounter Summary ---
:1950 Author Organization [facility] Address [address] [place] [address] Care Team Providers Name Role Phone Unavailable Primary Care Provider Unavailable Encounter Details Date Type Department Care Team Description 07/24/2015 Hospital Encounter HX [facility] UROLOGY Tamika Camejo M.D. [address] [place] [phone] (Wo rk) Social History Tobacco [...] How often do you attend quaker or jainism services? 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 - 07/24/2015 9:38 AM CDT CYSTO CHIEF COMPLAINT / REASON [...] 2. Urethral stricture, stable and not-obstructing PLAN: Please see separately dictated clinic note, same date. Electronically Signed By: TAMIKA CAMEJO MD On: 07/24/2015 09:45 AM Source: [employer]al[employer] Document Id: [id number] documented in this encounter Miscellaneous Notes Miscellaneous - Tamika Camejo M.D. - 07/27/2015 1:42 PM CDT Results Notification Document Contains Addenda Addendum by PRUDENCOI CANNON LPN on August 02, 2015 12:19:27 CDT Patient aware. Addendum by SHELLIE IRWIN LPN on July 27, 2015 14:01:45 CDT Fish pending. From: TAMIKA CAMEJO MD To: Urology Nurse; Sent: 07/27/2015 13:42:59 CDT ! Show up: 07/27/2015 13:42:59 CDT Subject: Results Notification Actions: Notify patient of results Reminder Comments: cyto is neg Results: Date Result Type Result Name 07/27/2015 11:03 Document - DOC Non-MANAGER TECHNICAL Cytology Source: [employer] Document Id: [id number] Electronically signed by Conversion, [facility] Electronic Operator [id number] at 09/28/2016 3:14 PM CDT Miscellaneous - Tamika Camejo M.D. - 07/27/2015 10:40 AM CDT Results Notification Document Contains Addenda Addendum by PRUDENCIO CANNON LPN on July 27, 2015 11:31:53 CDT Patient notified by mail. From: TAMIKA CAMEJO MD To: Urology Nurse; Sent: 07/27/2015 10:40:50 CDT ! Show up: 07/27/2015 10:40:50 CDT Subject: Results Notification Actions: Notify patient of results Reminder Comments: fish is neg Results: Date Result Name Value 07/24/2015 09:46 FUROC Result Sum-Mas Negative 07/24/2015 09:46 FUROC Result-Mas See Comment 07/24/2015 09:46 FUROC Interp-Mas See Comment 07/24/2015 09:46 FUROC Reason for Ref-Mas See Comment 07/24/2015 09:46 FUROC Spec-Mas Varies 07/24/2015 09:46 FUROC Source-Mas Urine, NOS 07/24/2015 09:46 FUROC Released By-[place] See Comment Source: [employer] Document Id: [id number] Miscellaneous - Tamika Camejo M.D. - 07/24/2015 9:35 AM CDT Ambulatory Patient Summary [address] [id number] Visit Information Name: SEVEN SALAZAR [facility] Number: [id number] Current Date: 07/24/2015 09:35:56 Physicians Attending Provider: TAMIKA CAMEJO MD Primary [...] mg daily. Stop Taking the Following Medications: Medication list as of 07-24-15 09:35 Attention: If you have any medications at [...] Electronically Signed By: TAMIKA CAMEJO MD Signed On:24-JUL-2015 09:35:49 Your Allergies & Intolerances Substance Reaction Symptoms [...] Your Upcoming Appointments Date Time Location Provider 08/14/2015 08:45 [facility] 09/11/2015 08:45 [facility] 10/09/2015 08:00 [facility] Riley Sanchez MD Attention: [...] if you dont have one. Go to [email or web address] and click on Create Your Account. Then, follow the directions to complete the online form. Youll be asked for your [facility] number which you can find at the top of this document. Your Goals/Additional instructions: Source: [facility] POWERCHART Document Id: [id number] Miscellaneous - Tamika Camejo M.D. - 07/24/2015 9:35 AM CDT Ambulatory Discharge Medication List [address] [id number] Visit Information Name: CHRIS SEVEN AVINA [facility] Number: [id number] Visit Date: 07/24/2015 09:35:54 Attending Provider: TAMIKA CAMEJO MD Primary Care [...] mg daily. Stop Taking the Following Medications: Medication list as of 07-24-15 09:35 Attention: If you have any medications at [...] Electronically Signed By: TAMIKA CAMEJO MD Signed On:24-JUL-2015 09:35:49 Additional Information: Source: [facility] POWERCHART Document Id: [id number] Miscellaneous - Shellie Irwin, L.P.N. - 07/24/2015 9:16 AM CDT Adult Live Truck Technician Intake/History Adult Live Truck Technician Intake/History Entered On: 07/24/2015 9:17 CDT Performed On: 07/24/2015 9:16 CDT by SHELLIE IRWIN LPN Intake Chief Complaint : cystoscopy-history of bladder cancer Temperature Core : 36.8 DegC(Converted to: 98.2 DegF) Peripheral Pulse Rate : 88 /min Respiratory Rate : 16 /min Height : 172 cm(Converted to: 5 ft 8 inch(es), 68 inch(es)) SHELLIE IRWIN LPN - 07/24/2015 9:16 CDT General Info Information Given By : Patient Preferred Communication Mode : Verbal Languages : Estonian Is Patient Female and 13-50 no hysterectomy : No SHELLIE IRWIN LPN - 07/24/2015 9:16 CDT Subjective Pain Symptoms : No SHELLIE IRWIN LPN - 07/24/2015 9:16 CDT Dependent Habits Exposure to Tobacco Smoke [...] Yes Alcohol Use : Yes SHELLIE IRWIN SHEMAR - 07/24/2015 9:16 CDT Caffeine Use Grid Caffeine Use : Current Type : Coffee, Tea Frequency : Daily Amount : 2 cup coffee/2 tea daily SHELLIE IRWIN SHEMAR - 07/24/2015 9:16 CDT Recreational Drug Use Grid Drug Use : None SHELLIE IRWIN SHEMAR - 07/24/2015 9:16 CDT Source: [facility] [employer] Document Id: [id number] CDT!33 Miscellaneous - Prudencio Cannon L.P.N. - 07/03/2015 12:31 PM CST *General Message Document Contains Addenda Addendum by PRUDENCIO CANNON LPN on 03 July 2015 13:03:48 AUTO DAMAGE ESTIMATOR Appointment changed. From: PRUDENCIO CANNON LPN ( Urology Nurse) To: Urology Nurse; Sent: 07/03/2015 12:31:19 AUTO DAMAGE ESTIMATOR Subject: *General Message Left message to call back. Patient was ill during BCG cycle and needs to reschedule cystoscopy to .July 23 or . Source: [facility] POWERCHART Document Id: [id number] Electronically signed by [facility] Electronic Operator [id number] at 09/28/2016 3:14 PM CDT documented in this encounter Plan of Treatment Upcoming Encounters Date Type Specialty Care Team Description 04/12/2022 Office Visit Cardiovascular Disease Simone Gooden, KELLY RN, C.N.P. [address] [phone] (wo rk) documented as of this encounter Procedures Procedure Name Priority Date/Time Associated Comments Diagnosis UROVYSION (R) FOR Routine 07/24/2015 9:46 AM Resu lts for this BLADDER CANCER CDT procedure are in the results section. ZZPATHOLOGY NON-MANAGER TECHNICAL Routine 07/24/2015 8:53 AM Re sults for this CYTOLOGY CDT procedure are i n the results section. documented in this encounter Results UroVysion for Detection of Bladder Cancer, Urine (07/24/2015 9:46 AM CDT) [facility] Method Time Signature HXFUROC Result Negative POWERCHART Sum-[place] HXFUROC See Comment POWERCHART Result-[place] Comment: RESULT: No evidence of urotheli al [...] probe for 9p21. PDF Report available at: [email or web address] Reason For Referral See Comment POWERCHA RT Comment: RESULT: Evaluate for urothelial carcinoma. HXFUROC Spec-[place] Varies POWERCHART HXFUROC Source-[place] Urine, NOS POWERCHAR T HXFUROC Released By-[place] See Comment POW ERCHART Comment: RESULT: Benjamin Parada M.D., Ph.D. Test Performed by: [facility] - [address] [address] Battery Builder: Adiel Toledo II, M.D., Ph.D. Specimen (Source) Anatomical Collection Method Collection Time Re ceived Time Location / / Volume Laterality Urine 07/24/2015 9:46 AM CDT Tamika Camejo M.D. LAB GENETIC TESTING Performing Organization Address City/State/ZIP Code Phon e Number POWERCHART ZZPATHOLOGY NON-MANAGER TECHNICAL CYTOLOGY (07/24/2015 8:53 AM CDT) Specimen (Source) Anatomical Collection Method Collection Time Re ceived Time Location / / Volume Laterality 07/24/2015 8:53 AM CDT Narrative [facility] - 07/27/2015 11:03 AM CDT [facility] [place] [address] [place] [address] ??[phone] Patient Name: SEVEN SALAZAR Patient ID #: [id number] Collected: 07/24/2015 Address: City/State/Zip: [address] ??[phone] Received: Reported: 07/25/2015 07/27/2015 Soc. Sec. #: ?/Age/Sex 1950 (Age: 65) ??M Physician(s): A GRANT Copy To: ? [facility] ??[id number] [address] [facility] [place], ??[place] ??[address] CYTOPATHOLOGY NON-MANAGER TECHNICAL REPORT FINAL CYTOLOGIC DIAGNOSIS Urine-VOIDED: NEGATIVE FOR MALIGNANCY SATISFACTORY SPECIMEN FOR EVALUATION. Electronically Signed By [facility] [place]/07/27/2015 YUNI SARMIENTO M.D. AM [facility](ASCP) SPECIMEN(S) RECEIVED: Urine-VOIDED CLINICAL HISTORY: GROSS DESCRIPTION: 2 CYTOSPINS PREPARED FROM 30 ML ALCOHOL- FIXED, CLEAR YELLOW FLUID. Tamika Camejo M.D. LAB PATHOLOGY/CYTOLOGY ORDER IRVIN Performing Organization Address City/State/ZIP Code Phon e Number [facility] documented in this encounter Visit Diagnoses Not on filedocumented in this encounter Additional Health Concerns Assessment Noted Time PHQ-9 Depression Total Score: 17 01/24/2015 11:26 AM C DT documented as of this encounter
--- OUTSIDE RECORDS SUMMARY | 2022-03-29 07:54 | XMS_ITS | Encounter Summary ---
:1950 Author Organization [facility] Address [address] [place] [address] Care Team Providers Name Role Phone Unavailable Primary Care Provider Unavailable Encounter Details Date Type Department Care Team Description 03/11/2016 Hospital Encounter HX [facility] Riley Jimenez M.D. [address] [facility], [facility] [address] [phone] Social History Tobacco Use Types Packs/Day [...] How often do you attend baptist or oriental orthodox services? 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 documented as of this encounter Last Filed Vital Signs Vital Sign Reading Time Taken Comments Blood Pressure 129/57 03/11/2016 8:31 AM POWER STATION OPERATOR Pulse 68 03/11/2016 8:31 AM POWER STATION OPERATOR Temperature - - Respiratory Rate 16 03/11/2016 8:31 AM POWER STATION OPERATOR Oxygen Saturation - - Inhaled Oxygen Concentration - - Weight 95 kg (209 lb 7 oz) 03/11/2016 8:31 AM POWER STATION OPERATOR Height 173 cm (5' 8.11) 03/11/2016 8:31 AM POWER STATION OPERATOR Body Mass Index 31.74 03/11/2016 8:31 AM POWER STATION OPERATOR documented in this encounter Medications at Time of Discharge Medication Sig Dispensed Refills Start Date End Date albuterol sulfate 90 Inhale 2 puffs every 0 03/1104/24/2017 mcg/actuation aerosol 4 (four) hours as powdr breath activated needed. documented as of this encounter Progress Notes Riley Sanchez M.D. - 03/11/2016 8:11 AM CST [id number] CHIEF COMPLAINT/REASON FOR VISIT 1. Followup on chronic medical problems. 2. Discuss test results. HISTORY OF PRESENT ILLNESS Mik is a 66-year-old male who presents to the clinic today for a one month followup from 02/05/2016. He had cystoscopy with bladder biopsies on 02/21/2016, performed by Dr. Jatinder Camejo. One lesion was removed, showing recurrent grade 1 stage TA bladder cancer. It was decided to proceed with BCG and interferon treatment. He starts treatment next week, 03/19/2016. He denies any hematuria or dysuria. Patient thinks he would like to quit smoking. His quit date is 03/18. He has quit cold turkey in themist. We discussed medications and therapies. He did not tolerate Wellbutrin in the past. He tried Nicotine over 5 years ago. His PHQ-9 score is 10 today. He denies any suicidal or homicidal intention. He feels that it is improving. He felt a little down the few days after speaking with Dr. Camejo about his recurrent bladder cancer. Mik has a good friend that he speaks to often and is helpful and supportive. He feels that he has good support from family and friends. He is not taking Cymbalta because it is too expensive. We discussed test results from 03/04/2016. Results were remarkable for vitamin B12 415, folate 13.6,and sedimentation rate 48. I reviewed and updated his medication list. We discussed potential side effects. There are no additional questions, concerns, or complaints. MEDICATIONS Albuterol CFC free 90 mcg/inh 2 puffs every 4 hours as needed. Citalopram 20 mg by mouth daily. Hydrochlorothiazide 25 mg by mouth daily in the morning. Lisinopril 40 mg by mouth daily in the morning. ALLERGIES Influenza vaccine. Pravastatin causing myalgia, arthralgia. Wellbutrin causing suicidal thoughts. SYSTEMS REVIEW Please see HPI for pertinent positives, otherwise rest of ROS negative. PAST MEDICAL/SURGICAL HISTORY Reviewed and updated as per the EHR on 03/11/2016. PREVENTIVE SERVICES Reviewed and updated as per the EHR on 03/11/2016. SOCIAL HISTORY Reviewed and updated as per the EHR on 03/11/2016. FAMILY HISTORY Reviewed and updated as per the EHR on 03/11/2016. VITAL SIGNS HEIGHT: 173 cm. WEIGHT: 95 kg. BMI: 31.74 kg/m2. PULSE: 68 /min. RESP: 16 /min. SYSTOLIC: 129 mmHg. DIASTOLIC: 57 mmHg. PHYSICAL EXAMINATION GENERAL: Patient is sitting. No distress. Able to talk without interruption. MENTAL: Alert and oriented x 3. Normal mood and affect. IMPRESSION/REPORT/PLAN 1. Carcinoma of the urinary bladder, grade 1 of 3. He had cystoscopy on 02/21/2016. He will proceed with BCG and interferon treatment with Dr. Camejo. He should contact me if he develops side effectsto therapy. 2. Anxiety with depression. Today PHQ-9 score is 10. There was no suicidal or homicidal intention. He feels it is getting better. After discussion, it was decided to start Citalopram 20 mg daily. He should contact me if there is no improvement or worsening of symptoms or develops side effects to new pr escription medication. 3. Benign essential hypertension. Blood pressure is controlled. He is stable from a cardiac standpoint. Need to continue sodium controlled diet and current medication. Blood pressure goal is less than 140/90 mmHg. Need to continue cardiovascular risk factors modification. 4. Polymyalgia rheumatica. He is asymptomatic currently. If he develops symptoms, we can consider Prednisone. 5. Elevated sedimentation rate. It is due to polymyalgia rheumatica and bladder cancer. We will monitor. 6. Tobacco abuse. His quit date is 03/18. He was advised to follow through with plan. He will contact me if he wants medication to help him quit. 7. Discussed test results. I reviewed test results from 03/04/2016. All questions were answered. 8. Renew medications. The following medications were renewed: Albuterol. The patient will return to the clinic in 2 weeks for followup. This document serves as a record of services personally performed by Dr. Riley Sanchez. It was created on their behalf by Juan Ramos, a trained medical stenographer. The creation of this record is based on the scribe's personal observations and the provider's statements to them. This document has been checked and approved by the attending provider. Riley Sanchez M.D./arti Electronically Signed By: RILEY SANCHEZ MD On: 03/11/2016 10:18 AM Modified by and Electronically Signed by: RILEY SANCHEZ MD On: 03/11/2016 10:18 AM Source: [facility] [email or web address] Document Id: [id number] R STATION OPERATOR documented in this encounter Miscellaneous Notes Miscellaneous - Riley Sanchez M.D. - 03/11/2016 9:17 AM CST Ambulatory Patient Summary [address] [id number] Visit Information Name: SEVEN SALAZAR [facility] Number: [id number] Current Date: 03/11/2016 09:17:31 Physicians Attending Provider: RILEY SANCHEZ MD Primary [...] tablet) 1 Tablet(s), Oral, once a day $10.00 for 90 days. New Routed to [address] [address] hydrochlorothiazide (hydrochlorothiazide 25 mg oral tablet) 1 Tablet(s), Oral, once a day (in the morning) lisinopril (lisinopril 40 mg oral tablet) 1 Tablet(s), Oral, once a day (in the morning) Stop Taking the Following Medications: DULoxetine (DULoxetine 20 mg oral delayed release capsule) Medication list as of 03-11-16 09:17 Attention: If you have any medications at [...] Electronically Signed By: RILEY SANCHEZ MD Signed On:11-MAR-2016 09:17:21 Your Allergies & Intolerances Substance Reaction Symptoms [...] Your Upcoming Appointments Date Time Location Provider 03/19/2016 09:30 [facility] 03/19/2016 10:00 [facility] Urology [facility] Urology Nurse 1 03/26/2016 09:30 [facility] Lab [facility] Lab 03/26/2016 [...] 09:30 [facility] Lab [facility] Lab 04/23/2016 10:00 [facility] Urology [facility] Urology Nurse 1 Attention: Contact your local [...] if you dont have one. Go to [email or web address] and click on Create Your Account. Then, follow the directions to complete the online form. Youll be asked for your [facility] number which you can find at the top of this document. Your Goals/Additional instructions: Source: [facility] POWERCHART Document Id: [id number] R STATION OPERATOR Miscellaneous - Riley Sanchez M.D. - 03/11/2016 9:17 AM CST Ambulatory Discharge Medication List [address] [id number] Visit Information Name: SEVEN SALAZAR [facility] Number: [id number] Current Date: 03/11/2016 09:17:29 Attending Provider: RILEY SANCHEZ MD Primary Care [...] tablet) 1 Tablet(s), Oral, once a day $10.00 for 90 days. New Routed to [address] [address] hydrochlorothiazide (hydrochlorothiazide 25 mg oral tablet) 1 Tablet(s), Oral, once a day (in the morning) lisinopril (lisinopril 40 mg oral tablet) 1 Tablet(s), Oral, once a day (in the morning) Stop Taking the Following Medications: DULoxetine (DULoxetine 20 mg oral delayed release capsule) Medication list as of 03-11-16 09:17 Attention: If you have any medications at [...] Electronically Signed By: RILEY SANCHEZ MD Signed On:11-MAR-2016 09:17:21 Additional Information: Source: [facility] POWERCHART Document Id: [id number] R STATION OPERATOR Mook - Chucky Duncan L.P.NBhavesh - 03/11/2016 8:34 AM CST PHQ-9 PHQ-9 Entered On: 03/11/2016 8:35 POWER STATION OPERATOR Performed On: 03/11/2016 8:34 POWER STATION OPERATOR by CHUCKY DUNCAN LPN PHQ-9 Little interest or pleasure in doing things : More than half the days Feeling down, depressed, or hopeless : Several days Trouble falling or staying asleep, or sleeping too much : More than half the days Feeling tired or having little energy : More than half the days Poor appetite or overeating : Not at all Feeling bad about yourself or that you are a failure : Several days Trouble concentrating on things : Several days Moving or speaking slowly; restless or fidgety : Not at all Thoughts that you would be better off /hurting self : Several days PHQ-9 Calculated Score : 10 Problems make work, home, or dealing with others : Not difficult at all CHUCKY DUNCAN LPN - 03/11/2016 8:34 POWER STATION OPERATOR Source: [facility] DC DevicesCHART Document Id: [id number] POWER STATION OPERATOR!13 R STATION OPERATOR Mook - Chucky Duncan LBhaveshP.NBhavesh - 03/11/2016 8:31 AM CST Adult Sexologist Intake/History Adult Sexologist Intake/History Entered On: 03/11/2016 8:34 POWER STATION OPERATOR Performed On: 03/11/2016 8:31 POWER STATION OPERATOR by CHUCKY DUNCAN LPN Intake Chief Complaint : 1. One month follow-up from 02/05/2016 - patient is not taking Cymbalta it was tooexpensive. Peripheral Pulse Rate : 68 /min Respiratory Rate : 16 /min Systolic Blood Pressure : 129 mmHg Diastolic Blood Pressure : 57 mmHg NIBP Mean : 81 mmHg BP Location : Left upper extremity Blood Pressure Cuff Size : Large Height : 173 cm(Converted to: 5 ft 8 inch(es), 68 inch(es)) Actual Weight : 95 kg(Converted to: 209 lb 7 oz) Weight Source : Standing scale Dosing Weight Clinic : 95 kg Clinic BSA : 2.14 Body Mass Index : 31.74 kg/m2 PERLA CHUCKYIJEOMA MANLEY LPN - 03/11/2016 8:31 POWER STATION OPERATOR General Info Information Given By : Patient Preferred Communication Mode : Verbal, Written Languages : Spanish Is Patient Female and 13-50 no hysterectomy : No CHUCKY DUNCAN LPN - 03/11/2016 8:31 POWER STATION OPERATOR Subjective Pain Symptoms : No CHUCKY DUNCAN LPN - 03/11/2016 8:31 POWER STATION OPERATOR Dependent Habits Exposure to Tobacco Smoke : [...] Quit : Yes CHUCKY DUNCAN LPN - 03/11/2016 8:31 POWER STATION OPERATOR Caffeine Use Grid Caffeine Use : Current Type : Coffee, Tea Frequency : Daily Amount : 2 cup coffee/2 tea daily CHUCKY DUNCAN ASSET ADMINISTRATOR - 03/11/2016 8:31 POWER STATION OPERATOR Recreational Drug Use Grid Drug Use : None CHUCKY DUNCAN LPN - 03/11/2016 8:31 POWER STATION OPERATOR Source: [facility] POWERCHART Document Id: [id number] POWER STATION OPERATOR!41 R STATION OPERATOR documented in this encounter Plan of Treatment Upcoming Encounters Date Type Specialty Care Team Description 04/12/2022 Office Visit Cardiovascular Disease Simone Gooden AP RN, C.N.P. [address] [phone] (Wo rk) documented as of this encounter Visit Diagnoses Not on filedocumented in this encounter Additional Health Concerns Assessment Noted Time PHQ-9 Depression Total Score: 10 03/11/2016 8:34 AM CS T documented as of this encounter
--- OUTSIDE RECORDS SUMMARY | 2022-03-29 07:54 | XMS_ITS | Encounter Summary ---
:1950 Author Organization [facility] Address [address] [place] [address] Care Team Providers Name Role Phone Unavailable Primary Care Provider Unavailable Encounter Details Date Type Department Care Team Description 06/26/2015 Hospital Encounter HX NO MAPPING Darlene Camejo M.D. [address] [place], [place] [phone] (Wo rk) Social History [...] How often do you attend restorationism or zoroastrianism services? 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 Coded By: LEONEL LORENZANA Date Saved: 07/07/2015 10:42 am Source: [email or web address] Document Id: [id number] documented in this encounter Plan of Treatment Upcoming Encounters Date Type Specialty Care Team Description 04/12/2022 Office Visit Cardiovascular Disease Simone Gooden AP RN, C.N.P. [address] [phone] (Wo rk) documented as of this encounter Visit Diagnoses Not on filedocumented in this encounter Additional Health Concerns Assessment Noted Time PHQ-9 Depression Total Score: 17 01/24/2015 11:26 AM C DT documented as of this encounter
--- OUTSIDE RECORDS SUMMARY | 2022-03-29 07:55 | XMS_ITS | Encounter Summary ---
:1950 Author Organization [facility] Address [address] [place] [address] Care Team Providers Name Role Phone Unavailable Primary Care Provider Unavailable Encounter Details Date Type Department Care Team Description 05/29/[address] [facility] [place] Tarik Camejo M.D. [address] [place], [place] [phone] (Wo rk) Social History [...] How often do you attend samaritan or advent services? 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 [address] [phone] (Wo rk) documented as of this encounter Visit Diagnoses Not on filedocumented in this encounter Additional Health Concerns Assessment Noted Time PHQ-9 Depression Total Score: 17 01/24/2015 11:26 AM C DT documented as of this encounter
--- OUTSIDE RECORDS SUMMARY | 2022-03-29 07:55 | XMS_ITS | Encounter Summary ---
:1950 Author Organization [facility] Address [address] [place] [address] Care Team Providers Name Role Phone Unavailable Primary Care Provider Unavailable Encounter Details Date Type Department Care Team Description 05/15/2015 Hospital Encounter HX [facility] FB Riley Jimenez M.D. [address] [facility] [address] [phone] Social History Tobacco Use Types Packs/Day [...] How often do you attend religion or yarsanism services? 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 - 05/15/2015 12:53 PM CST [id number] CHIEF COMPLAINT/REASON FOR VISIT 1. Followup on chronic medical problems. 2. Discuss test results. HISTORY OF PRESENT ILLNESS Mik is a 65-year-old male who presents to the clinic today for a three month followup. I last saw him on 04/17/2015. We discussed test results from 04/26/2015, which were normal. His aches and pains are stable when he takes medication. He is currently on Prednisone 20 mg daily for polymyalgia rheumatica. We need to gradually decrease Prednisone. His blood pressure is high today and is unsure why. He has gradual weight gain since February despiteworking out more recently. He denies any constipation, fatigue, or dry skin. He continues to smoke cigarettes. The patient denies any chest pain, shortness of breath, dizziness, or leg swelling. He hasoccasional lightheadedness if he stands up too quickly. Patient has history of bladder cancer, status post BCG therapy. Per the patient, he is starting BCG therapy again next week with Dr. Jatinder Camejo, Urologist. I reviewed and updated his medication list. We discussed potential side effects. There are no additional questions, concerns, or complaints. MEDICATIONS Reviewed and updated as per the EHR on 05/15/2015. ALLERGIES Reviewed and updated as per the EHR on 05/15/2015. SYSTEMS REVIEW Please see HPI for pertinent positives, otherwise rest of ROS negative. PAST MEDICAL/SURGICAL HISTORY Reviewed and updated as per the EHR on 05/15/2015. PREVENTIVE SERVICES Reviewed and updated as per the EHR on 05/15/2015. SOCIAL HISTORY Reviewed and updated as per the EHR on 05/15/2015. FAMILY HISTORY Reviewed and updated as per the EHR on 05/15/2015. VITAL SIGNS HEIGHT: 172 cm. WEIGHT: 109 kg. BMI: 36.84 kg/m2. PULSE: 100 /min. RESP: 16 /min. SYSTOLIC: 150 mmHg. DIASTOLIC: 100 mmHg. SR: 159/91 mmHg. TR: 136/80 mmHg. PHYSICAL EXAMINATION GENERAL: Patient is sitting. No distress. Able to talk without interruption. EXTREMITIES: No clubbing, cyanosis, edema, infection, or calf tenderness. MENTAL: Alert and oriented x 3. Normal mood and affect. NEURO: Grossly nonfocal exam. IMPRESSION/REPORT/PLAN 1. Leukocytosis. His white blood cell is just above normal on 04/17/2015. There is no evidence of infection clinically. Most likely due to Prednisone therapy. We will monitor. 2. Hyperlipidemia. It is controlled. Fasting lipid profile was done on 04/26/2015. Total [id number], triglycerides 78, HDL 78, LDL 68. He didnt tolerate Pravastatin in the past. Patient was advised to continue low cholesterol, low fat diet, regular exercise, and Co-Q10. Need to check fasting lipid profile every 12 months. 3. Chronic hypertension. Blood pressure is high secondary to Prednisone therapy, weight gain, and smoking. He needs to quit smoking and lose weight. We will taper Prednisone. Otherwise, he is stable from a cardiac standpoint. Need to continue sodium controlled diet and current medication. Blood pressure goal is less than 140/90 mmHg. Need to continue cardiovascular risk factors modification. 4. Polymyalgia rheumatica. It is stable with medication, currently Prednisone 20 mg daily. He deniesany side effects. We need to gradually decrease Prednisone. It was decided to decrease Prednisone to15 mg daily. If he tolerates lower dosage, we will continue to decrease Prednisone. 5. Weight gain. He has gradual weight gain since February. He needs to lose weight. I explained to him that losing weight would also improve his blood pressure readings. Patient was advised to cut back calories, carbohydrates, and food portions. Need to exercise regularly. 6. Discussed test results. I reviewed test results from 04/26/2015. All questions were answered. 7. Renew medications. The following medications were renewed: Prednisone. The patient will return to the clinic in 1 month for followup with following tests: BMP, CBC, Sed rate, and TSH. This document serves as a record of services personally performed by Dr. Riley Sanchez. It was created on their behalf by Juan Ramos, a trained medical reimbursement specialist. The creation of this record is based on the scribe's personal observations and the provider's statements to them. This document has been checked and approved by the attending provider. Riley Sanchez M.D./arti Electronically Signed By: RILEY SANCHEZ MD On: 05/15/2015 01:40 PM Modified by and Electronically Signed by: RILEY SANCHEZ MD On: 05/15/2015 01:40 PM Source: [facility] [id number] Document Id: [id number] ESTATE ANALYST documented in this encounter Miscellaneous Notes Jodicelljen - Riley Sanchez M.D. - 05/15/2015 1:30 PM CST Prednison Rx Document Contains Addenda Addendum by JUANY DUNCAN LPN on 15 May 2015 14:50:26 REAL ESTATE ANALYST Pharmacist notified. From: RILEY SANCHEZ MD To: JOSE Sanchez Nurse; Sent: 05/15/2015 13:30:50 REAL ESTATE ANALYST Subject: Prednison Rx Please call [facility] in [place] pharmacy to give him Prednisone 5 mg, NOT Prednisolone 5 mg. Source: [facility] POWERCHART Document Id: [id number] Jodicellaneous - Riley Sanchez M.D. - 05/15/2015 1:25 PM CST Ambulatory Patient Summary [address] [id number] Visit Information Name: [facility] Number: [id number] Current Date: 05/15/2015 13:25:40 Physicians Attending Provider: RILEY SANCHEZ MD Primary [...] breath / Wheezing use with spacer chamber lisinopril (lisinopril 40 mg oral tablet) 1 Tablet(s), Oral, once a day (in the morning) Misc Prescription (Misc Prescription) BCG infusions once weekly naproxen (naproxen 500 mg oral tablet) 1 Tablet(s), Oral, two times a day with meals predniSONE (predniSONE 20 mg oral tablet) 0.5 Tablet(s), Oral, once a day (in the morning) with food/ Dose decreased to 15 mg daily on 05/15/2015. This is a CHANGE predniSONE (predniSONE 5 mg oral tablet) 1 Tablet(s), Oral, once a day (in the morning) with food. Take with 0.5 tablet of 20 mg pill, total 15 mg daily. This is a CHANGE Routed to [facility] [address] [place] [address] ubiquinone (Co-Q10 200 mg oral capsule) 1 cap, Oral, once a day Stop Taking the Following Medications: Medication list as of 05-15-15 13:25 Attention: If you have any medications at [...] Electronically Signed By: RILEY SANCHEZ MD Signed On:15-MAY-2015 13:25:33 Your Allergies & Intolerances Substance Reaction Symptoms Category Comments pravastatin Myalgia Drug pravastatin Arthralgia Drug Wellbutrin Suicidal thoughts Drug Influenza Virus Vaccine Sickness Drug Your Problem List Problem Status Onset Comments HTN [Hypertension] Active 02/12/2010 Tobacco use Active 02/12/2010 Lipoma, Anterior abdominal wall (RLQ) Active 02/12/2010 Leukocytosis Active 02/12/2010 Hypokalemia Active 02/12/2010 Malignant Neoplasm of Lateral Wall of Urinary Bladder Active 02/19/2010 Obesity, BMI 35 Active 02/15/2010 Elevated Sedimentation Rate Active 02/12/2010 Degenerative disc disease, L3-L4 through L5-S1 Active 02/12/2010 02/24/10 Per X-Ray Degenerative disc disease, C5-C6, C6-C7 Active 02/12/2010 02/24/10 Per X-Ray DJD, Right Shoulder Active 02/12/2010 02/24/10 Per X-Ray Back pain Active 03/09/2010 Cancer of urinary bladder, Grade 1 of 3 Urothelial carcinoma Active 02/19/2010 Pain in shoulder, Right > Left Active 03/26/2010 Arthritis Active 08/31/2010 Weight gain due to prednison Rx Active 09/28/2010 Skin Tags Active 12/07/2010 Insomnia Active 02/11/2011 Fatigue* Active 02/11/2011 Snoring Active 02/11/2011 Weight loss Active 02/11/2011 Migraine headache Active 07/01/2011 Pseudophakia Active 10/07/2011 Presbyopia Active 10/07/2011 Renal cyst, Right 2.2 x 2.5 x 2.7 cm per USG Active 10/21/2011 Osteoarthritis, 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 Arthritis, Bilateral shoulder Active 11/11/2011 GERD [Gastroesophageal reflux disease] Active Hiatal hernia, 2 cm Active Esophagitis, Per EGD Active 11/26/2011 Chronic Bronchitis Active Skin Lesion, Left nasolabial fold Active 04/30/2013 High Risk Medication Active Hypertension (HTN) Chronic Active Mass Kidney, Right upper pole Active Arthralgia Active Polymyalgia Rheumatica (PMR) Active Myalgia NOS Active Cancer of urinary bladder, Grade 1 of 3 Urothelial carcinoma Active Hyperlipidemia NOS Active High Risk Medication Active Leukocytosis Active Your Upcoming Appointments Date Time Location Provider 05/22/2015 08:30 [facility] 05/22/2015 08:30 [facility] 05/22/2015 09:00 [facility] Urology Nurse 1 05/29/2015 08:30 [facility] 05/29/2015 09:00 [facility] Urology Nurse 1 06/05/2015 08:30 [facility] 06/05/2015 08:30 [facility] 06/05/2015 09:00 [facility] Urology Nurse 1 07/10/2015 09:45 [facility] Jatinder Camejo MD [...] online form. Youll be asked for your [facility] number which you can find at the top of this document. Your Goals/Additional instructions: Source: [facility] POWERCHART Document Id: [id number] ESTATE ANALYST Miscellaneous - Riley Sanchez M.D. - 05/15/2015 1:25 PM CST Ambulatory Discharge Medication List [address] [id number] Visit Information Name: [facility] Number: [id number] Visit Date: 05/15/2015 13:25:38 Attending Provider: RILEY SANCHEZ MD Primary Care [...] breath / Wheezing use with spacer chamber lisinopril (lisinopril 40 mg oral tablet) 1 Tablet(s), Oral, once a day (in the morning) Misc Prescription (Misc Prescription) BCG infusions once weekly naproxen (naproxen 500 mg oral tablet) 1 Tablet(s), Oral, two times a day with meals predniSONE (predniSONE 20 mg oral tablet) 0.5 Tablet(s), Oral, once a day (in the morning) with food/ Dose decreased to 15 mg daily on 05/15/2015. This is a CHANGE predniSONE (predniSONE 5 mg oral tablet) 1 Tablet(s), Oral, once a day (in the morning) with food. Take with 0.5 tablet of 20 mg pill, total 15 mg daily. This is a CHANGE Routed to [facility] [address] [place] [address] ubiquinone (Co-Q10 200 mg oral capsule) 1 cap, Oral, once a day Stop Taking the Following Medications: Medication list as of 05-15-15 13:25 Attention: If you have any medications at [...] Electronically Signed By: RILEY SANCHEZ MD Signed On:15-MAY-2015 13:25:33 Additional Information: [facility] Document Id: [id number] ESTATE ANALYST Jodicelljen - Riley Sanchez M.D. - 05/15/2015 1:25 PM CST Ambulatory Vitals Height Weight Ambulatory Vitals Height Weight Entered On: 05/15/2015 13:25 REAL ESTATE ANALYST Performed On: 05/15/2015 13:25 REAL ESTATE ANALYST by RILEY SANCHEZ MD Vitals/Ht/Wt Systolic Blood Pressure : 136 mmHg Diastolic Blood Pressure : 80 mmHg NIBP Mean : 99 mmHg BP Location : Left upper extremity Blood Pressure Cuff Size : Large Height : 172 cm(Converted to: 5 ft 8 inch(es), 68 inch(es)) RILEY SANCHEZ MD - 05/15/2015 13:25 REAL ESTATE ANALYST Source: [facility] US Biologic Document Id: [id number] REAL ESTATE ANALYST!8 ESTATE ANALYST Miscellaneous - Juany Duncan, L.P.NBhavesh - 05/15/2015 1:06 PM CST Ambulatory Vitals Height Weight Ambulatory Vitals Height Weight Entered On: 05/15/2015 13:06 REAL ESTATE ANALYST Performed On: 05/15/2015 13:06 REAL ESTATE ANALYST by JUANY DUNCAN LPN Vitals/Ht/Wt Systolic Blood Pressure : 159 mmHg (HI) Diastolic Blood Pressure : 91 mmHg (>HHI) NIBP Mean : 114 mmHg BP Location : Right upper extremity Blood Pressure Cuff Size : Large Height : 172 cm(Converted to: 5 ft 8 inch(es), 68 inch(es)) JUANY DUNCAN LPN - 05/15/2015 13:06 REAL ESTATE ANALYST [facility] Document Id: [id number] REAL ESTATE ANALYST!8 ESTATE ANALYST Miscellaneous - Juany Duncan LBhaveshP.N. - 05/15/2015 12:58 PM CST Adult Director Digital Communications Intake/History Adult Director Digital Communications Intake/History Entered On: 05/15/2015 13:06 REAL ESTATE ANALYST Performed On: 05/15/2015 12:58 REAL ESTATE ANALYST by JUANY DUNCAN LPN Intake Chief Complaint : 1. Three month follow-up from 01/24/2015 Peripheral Pulse Rate : 100 /min Respiratory Rate : 16 /min Systolic Blood Pressure : 150 mmHg (HI) Diastolic Blood Pressure : 100 mmHg (>HHI) NIBP Mean : 117 mmHg BP Location : Right upper extremity Blood Pressure Cuff Size : Large Height : 172 cm(Converted to: 5 ft 8 inch(es), 68 inch(es)) Actual Weight : 109 kg(Converted to: 240 lb 5 oz) Weight Source : Standing scale Dosing Weight Clinic : 109 kg Clinic BSA : 2.28 Body Mass Index : 36.84 kg/m2 JUANY DUNCAN LPN - 05/15/2015 12:58 REAL ESTATE ANALYST General Info Information Given By : Patient Preferred Communication Mode : Verbal, Written Languages : Tamazight Is Patient Female and 13-50 no hysterectomy : No JUANY DUNCAN LPN - 05/15/2015 12:58 REAL ESTATE ANALYST Subjective Pain Symptoms : No JUANY DUNCAN SHEMAR - 05/15/2015 12:58 REAL ESTATE ANALYST Dependent Habits Exposure to Tobacco Smoke [...] Use/Advised to Quit : Yes JUANY DUNCAN NUCLEAR REACTOR ENGINEER - 05/15/2015 12:58 REAL ESTATE ANALYST Caffeine Use Grid Caffeine Use : Current Type : Coffee, Tea Frequency : Daily Amount : 2 cup coffee/2 tea daily JUANY DUNCAN [facility] - 05/15/2015 12:58 REAL ESTATE ANALYST Recreational Drug Use Grid Drug Use : None JUANY DUNCANLE NUCLEAR REACTOR ENGINEER - 05/15/2015 12:58 REAL ESTATE ANALYST Source: [facility] US [employer] Document Id: [id number] REAL ESTATE ANALYST!41 ESTATE ANALYST documented in this encounter Plan of Treatment Upcoming Encounters Date Type Specialty Care Team Description 04/12/2022 Office Visit Cardiovascular Disease Simone Gooden AP RN, C.N.P. [address] [phone] (Wo rk) documented as of this encounter Visit Diagnoses Not on filedocumented in this encounter Additional Health Concerns Assessment Noted Time PHQ-9 Depression Total Score: 17 01/24/2015 11:26 AM C DT documented as of this encounter
--- OUTSIDE RECORDS SUMMARY | 2022-03-29 07:55 | XMS_ITS | Encounter Summary ---
:1950 Author Organization [facility] Address [address] [place] [address] Care Team Providers Name Role Phone Unavailable Primary Care Provider Unavailable Encounter Details Date Type Department Care Team Description 06/05/2015 Hospital Encounter HX [facility] LAB Tarik Camejo M.D. [address] [place], [place] [phone] (Wo rk) Social History [...] How often do you attend pentecostalism or temple services? 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 - 06/07/2015 12:27 PM CST Results Notification Document Contains Addenda Addendum by SHERLYN HOFFMAN DAY CARE DIRECTOR on 07 June 2015 16:55:24 TEAM OTR TRUCK DRIVER Pt was notified. From: TAMIKA CAMEJO MD To: Urology Nurse; Sent: 06/07/2015 12:27:31 TEAM OTR TRUCK DRIVER ! Show up: 06/07/2015 12:27:31 TEAM OTR TRUCK DRIVER Subject: Results Notification Actions: Notify patient of results Reminder Comments: ng Results: Date Result Type Ind Result Name MBO Review Culture Urine Source: [facility] POWERCHART Document Id: [id number] Electronically signed by Conversion, [facility] Charging Manipulator [id number] at 09/28/2016 9:26 AM CDT documented in this encounter Plan of Treatment Upcoming Encounters Date Type Specialty Care Team Description 04/12/2022 Office Visit Cardiovascular Disease Simone Gooden AP RN, C.N.P. [address] [phone] (Wo rk) documented as of this encounter Procedures Procedure Name Priority Date/Time Associated Diagnosis Comme nts BACTERIAL CULTURE, Routine 06/05/2015 8:48 AM Res ults for this AEROBIC, URINE TEAM OTR TRUCK DRIVER procedure are in the results section. documented in this encounter Results Bacterial Culture, Aerobic, Urine (06/05/2015 8:48 AM TEAM OTR TRUCK DRIVER) Analysis Performed At Patho logist Time Signature Bacterial POWERCHART Culture, Aerobic, Urine HXPre No growth POWERCHART HXFinal No growth POWERCHART Specimen (Source) Anatomical Collection Method Collection Time Re ceived Time Location / / Volume Laterality Urine, First 06/05/2015 8:48 AM Voided TEAM OTR TRUCK DRIVER Tamika Camejo M.D. LAB MICROBIOLOGY - GENERAL O RDERABLES Performing Organization Address City/State/ZIP Code Phon e Number POWERCHART documented in this encounter Visit Diagnoses Not on filedocumented in this encounter Additional Health Concerns Assessment Noted Time PHQ-9 Depression Total Score: 17 01/24/2015 11:26 AM C DT documented as of this encounter
--- OUTSIDE RECORDS SUMMARY | 2022-03-29 07:55 | XMS_ITS | Encounter Summary ---
:1950 Author Organization [facility] Address [address] [place] [address] Care Team Providers Name Role Phone Unavailable Primary Care Provider Unavailable Encounter Details Date Type Department Care Team Description 02/27/2015 Hospital Encounter HX [facility] LAB Tarik Camejo M.D. [address] [place], [place] [phone] (Wo rk) Social History [...] How often do you attend baptist or worship services? Never 04/16/2019 Do you [...] - - Height 172 cm (5' 7.72) 02/27/2015 9:45 AM CDT Body Mass Index - - documented in this encounter Miscellaneous Notes Miscellaneous - Tamika Camejo M.D. - 02/28/2015 1:32 PM CDT Results Notification Document Contains Addenda Addendum by ADILSON IRWIN LPN on 28 February 2015 14:13:31 CDT Patient notified of normal results. From: TAMIKA CAMEJO MD To: Urology Nurse; Sent: 02/28/2015 13:32:06 CDT ! Show up: 02/28/2015 13:32:06 CDT Subject: Results Notification Actions: Notify patient of results Reminder Comments: uc ng Results: Date Result Type Ind Result Name MBO Review Culture Urine Source: [facility] POWERCHART Document Id: [id number] Electronically signed by Conversion, [facility] Rn Outpatient Surgery [id number] at 09/30/2016 4:10 AM CDT documented in this encounter Plan of Treatment Upcoming Encounters Date Type Specialty Care Team Description 04/12/2022 Office Visit Cardiovascular Disease Simone Gooden AP RN, C.N.P. [address] [phone] (Wo rk) documented as of this encounter Procedures Procedure Name Priority Date/Time Associated Comments Diagnosis BACTERIAL CULTURE, Routine 02/27/2015 9:52 AM Res ults for this AEROBIC, URINE CDT procedure are in the results section. URINALYSIS WITH Routine 02/27/2015 9:52 AM Result s for this MICROSCOPIC CDT procedure are i n the results section. documented in this encounter Results Bacterial Culture, Aerobic, Urine (02/27/2015 9:52 AM CDT) Analysis Performed At Patho logist Time Signature Bacterial POWERCHART Culture, Aerobic, Urine HXFinal No growth POWERCHART Specimen (Source) Anatomical Collection Method Collection Time Re ceived Time Location / / Volume Laterality Urine, First 02/27/2015 9:52 AM Voided CDT Tamika Camejo M.D. LAB MICROBIOLOGY - GENERAL O RDERABLES Performing Organization Address City/State/ZIP Code Phon e Number POWERCHART (ABNORMAL) Urinalysis, Complete, Includes Microscopic (02/27/2015 9:52 AM CDT) Patholo gist Method Time Signature HXUr Color Yellow Colorless POWERCHART Clarity Slightly Clear POWERCHART Cloudy (A) Glucose Negative Negative POWERCHART MGDL HXBILIRUBIN Negative Negative POWERCHART Ketones, QL(U) Negative Negative POWERCHART MGDL Specific 1.010 POWERCHART [place], POCT, U HXBLOOD Trace (A) Negative POWERCHART pH, POCT, Urine 6.0 <5.0 POWERCHART Protein, Ur, Negative Negative POWERCHART Dip MGDL Urobilinogen 0.2 0.2 MGDL POWERCHART HXNITRITE Negative Negative POWERCHART Leukocyte Moderate Negative POWERCHART Esterase (A) HXUR WBC. 11-20 (A) None Seen POWERCHART HPF HXUR RBC. Occ-2 None Seen POWERCHART HPF HXUR Bacteria, None Seen None Seen POWERCHART Squamous Occ-3 (A) None Seen POWERCHART Epithelial HPF Specimen (Source) Anatomical Collection Method Collection Time Re ceived Time Location / / Volume Laterality Urine, First 02/27/2015 9:52 AM Voided CDT Tamika Camejo M.D. LAB URINE ORDERABLES Performing Organization Address City/State/ZIP Code Phon e Number POWERCHART documented in this encounter Visit Diagnoses Not on filedocumented in this encounter Additional Health Concerns Assessment Noted Time PHQ-9 Depression Total Score: 17 01/24/2015 11:26 AM C DT documented as of this encounter
--- OUTSIDE RECORDS SUMMARY | 2022-03-29 07:55 | XMS_ITS | Encounter Summary ---
:1950 Author Organization [facility] Address [address] [place] [address] Care Team Providers Name Role Phone Unavailable Primary Care Provider Unavailable Encounter Details Date Type Department Care Team Description 06/05/2015 Hospital Encounter HX [facility] Tarik Camejo M.D. [address] [place], [place] [phone] (Wo rk) Social History [...] How often do you attend christian or hinduism services? Never 04/16/2019 Do you [...] at Date Recorded Male 06/28/2019 8:47 AM TEAR DOWN MAN documented as of this encounter Last Filed Vital Signs Vital Sign Reading Time Taken Comments Blood Pressure - - Pulse - - Temperature - - Respiratory Rate - - Oxygen Saturation - - Inhaled Oxygen Concentration - - Weight - - Height 172 cm (5' 7.72) 06/05/2015 8:36 AM TEAR DOWN MAN Body Mass Index - - documented in this encounter Miscellaneous Notes Miscellaneous - Tamika Camejo M.D. - 06/05/2015 8:57 AM CST Results Notification Document Contains Addenda Addendum by ADILSON IRWIN LPN on 05 June 2015 12:02:25 TEAR DOWN MAN Patient treated with BCG today From: TAMIKA CAMEJO MD To: OW Urology Nurse; Sent: 06/05/2015 08:57:39 TEAR DOWN MAN ! Show up: 06/05/2015 08:57:39 TEAR DOWN MAN Subject: Results Notification Actions: Notify patient of results Results: Date Result Name Value Ref Range 06/05/2015 08:47 UA Color Yellow (Colorless - ) 06/05/2015 08:47 UA Clarity Clear (Clear - ) 06/05/2015 08:47 UA Spec Grav 1.015 06/05/2015 08:47 UA pH 7.0 (<5.0 - ) 06/05/2015 08:47 UA Protein Negative mg/dL (Negative - ) 06/05/2015 08:47 UA Glucose Negative mg/dL (Negative - ) 06/05/2015 08:47 UA Ketones Negative mg/dL (Negative - ) 06/05/2015 08:47 UA Bili Negative (Negative - ) 06/05/2015 08:47 UA Urobilinogen 0.2 mg/dL (0.2 - ) 06/05/2015 08:47 UA Blood Negative (Negative - ) 06/05/2015 08:47 UA Nitrite Negative (Negative - ) 06/05/2015 08:47 UA Leuk Est Negative (Negative - ) 06/05/2015 08:47 UR WBC Occ-3 /HPF (None Seen - ) 06/05/2015 08:47 UR RBC None Seen /HPF (None Seen - ) Source: [facility] POWERCHART Document Id: [id number] Electronically signed by Conversion, [facility] Household Appliance Repairer [id number] at 09/28/2016 9:26 AM CDT documented in this encounter Plan of Treatment Upcoming Encounters Date Type Specialty Care Team Description 04/12/2022 Office Visit Cardiovascular Disease Simone Gooden AP RN, C.N.P. [address] [phone] (Wo rk) documented as of this encounter Procedures Procedure Name Priority Date/Time Associated Comments Diagnosis URINALYSIS WITH Routine 06/05/2015 8:47 AM Result s for this MICROSCOPIC TEAR DOWN MAN procedure are i n the results section. documented in this encounter Results Urinalysis, Complete, Includes Microscopic (06/05/2015 8:47 AM TEAR DOWN MAN) [facility] Method Time Signature Clarity Clear Clear POWERCHART HXUr Color Yellow Colorless POWERCHART Specific 1.015 POWERCHART Delong, POCT, U pH, POCT, Urine 7.0 <5.0 POWERCHART Protein, Ur, Dip Negative Negative POWERCHART MGDL Glucose Negative Negative POWERCHART MGDL Ketones, QL(U) Negative Negative POWERCHART MGDL HXBILIRUBIN Negative Negative POWERCHART HXBLOOD Negative Negative POWERCHART Leukocyte Negative Negative POWERCHART Esterase HXNITRITE Negative Negative POWERCHART Urobilinogen 0.2 0.2 MGDL POWERCHART HXUR WBC. Occ-3 None Seen POWERCHART HPF HXUR RBC. None Seen None Seen POWERCHART HPF Specimen (Source) Anatomical Collection Method Collection Time Re ceived Time Location / / Volume Laterality Urine, First 06/05/2015 8:47 AM Voided TEAR DOWN MAN Tamika Camejo M.D. LAB URINE ORDERABLES Performing Organization Address City/State/ZIP Code Phon e Number POWERCHART documented in this encounter Visit Diagnoses Not on filedocumented in this encounter Additional Health Concerns Assessment Noted Time PHQ-9 Depression Total Score: 17 01/24/2015 11:26 AM C DT documented as of this encounter
--- OUTSIDE RECORDS SUMMARY | 2022-03-29 07:55 | XMS_ITS | Encounter Summary ---
:1950 Author Organization [facility] Address [address] [place] [address] Care Team Providers Name Role Phone Unavailable Primary Care Provider Unavailable Encounter Details Date Type Department Care Team Description 04/10/2015 Hospital Encounter HX NO MAPPING Darlene Camejo M.D. [address] [place], [place] [phone] (Wo rk) Social History [...] How often do you attend pentecostal or rastafarian services? 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 However, the narrative phrase printed from the coding software may appear abbreviated, or result in slightly different terminology. Coded By: LEONORA SANDOVAL Date Saved: 04/19/2015 10:20 pm Source: [facility] Document Id: [id number] documented in this encounter Plan of Treatment Upcoming Encounters Date Type Specialty Care Team Description 04/12/2022 Office Visit Cardiovascular Disease Simone Gooden AP RN, C.N.P. [address] [phone] (Wo rk) documented as of this encounter Visit Diagnoses Not on filedocumented in this encounter Additional Health Concerns Assessment Noted Time PHQ-9 Depression Total Score: 17 01/24/2015 11:26 AM C DT documented as of this encounter
--- OUTSIDE RECORDS SUMMARY | 2022-03-29 07:55 | XMS_ITS | Encounter Summary ---
:1950 Author Organization [facility] Address [address] [place] [address] Care Team Providers Name Role Phone Unavailable Primary Care Provider Unavailable Encounter Details Date Type Department Care Team Description 06/26/2015 Hospital Encounter HX [facility] Jatinder Camejo M.D. [address] [place] [phone] (Wo rk) Social History Tobacco [...] How often do you attend denominational or voodoo services? 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 - 06/26/2015 3:40 PM CST Nurse Only Documentation Nurse Only Documentation Entered On: 06/26/2015 15:42 ASBESTOS WORKER Performed On: 06/26/2015 15:40 ASBESTOS WORKER by SHELLIE IRWIN LPN Nurse Only Documentation Nurse Only Visit Documentation : 3 of 3 BCG SHELLIE IRWIN LPN - 06/26/2015 15:40 ASBESTOS WORKER Vitals/Ht/Wt Temperature Core : 36.8 DegC(Converted to: 98.2 DegF) Peripheral Pulse Rate : 88 /min Systolic Blood Pressure : 150 mmHg (HI) Diastolic Blood Pressure : 72 mmHg NIBP Mean : 98 mmHg BP Location : Left upper extremity Blood Pressure Cuff Size : Large Height : 172 cm(Converted to: 5 ft 8 inch(es), 68 inch(es)) SHELLIE IRWIN LPN - 06/26/2015 15:40 ASBESTOS WORKER Source: [facility] POWERCHART Document Id: [id number] ASBESTOS WORKER!12 STOS WORKER documented in this encounter Plan of Treatment Upcoming Encounters Date Type Specialty Care Team Description 04/12/2022 Office Visit Cardiovascular Disease Simone Gooden AP RN, C.N.P. [address] [phone] (Wo rk) documented as of this encounter Visit Diagnoses Not on filedocumented in this encounter Additional Health Concerns Assessment Noted Time PHQ-9 Depression Total Score: 17 01/24/2015 11:26 AM C DT documented as of this encounter
--- OUTSIDE RECORDS SUMMARY | 2022-03-29 07:55 | XMS_ITS | Encounter Summary ---
:1950 Author Organization [facility] Address [address] [place] [address] Care Team Providers Name Role Phone Unavailable Primary Care Provider Unavailable Encounter Details Date Type Department Care Team Description 03/06/2015 Hospital Encounter HX NO MAPPING Darlene Camejo M.D. [address] [place], [place] [phone] (Wo rk) Social History [...] How often do you attend congregational or catholic services? 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 However, the narrative phrase printed from the coding software may appear abbreviated, or result in slightly different terminology. Coded By: LEONEL LORENZANA Date Saved: 03/16/2015 02:18 pm Source: [facility] Document Id: [id number] documented in this encounter Plan of Treatment Upcoming Encounters Date Type Specialty Care Team Description 04/12/2022 Office Visit Cardiovascular Disease Simone Gooden AP RN, C.N.P. [address] [phone] (Wo rk) documented as of this encounter Visit Diagnoses Not on filedocumented in this encounter Additional Health Concerns Assessment Noted Time PHQ-9 Depression Total Score: 17 01/24/2015 11:26 AM C DT documented as of this encounter
--- OUTSIDE RECORDS SUMMARY | 2022-03-29 07:55 | XMS_ITS | Encounter Summary ---
:1950 Author Organization [facility] Address [address] [place] [address] Care Team Providers Name Role Phone Unavailable Primary Care Provider Unavailable Encounter Details Date Type Department Care Team Description 06/26/2015 Hospital Encounter HX [facility] Jatinder Camejo M.D. [address] [place] [phone] (Wo rk) Social History Tobacco [...] How often do you attend episcopal or holiness services? 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 [address] [phone] (Wo rk) documented as of this encounter Visit Diagnoses Not on filedocumented in this encounter Additional Health Concerns Assessment Noted Time PHQ-9 Depression Total Score: 17 01/24/2015 11:26 AM C DT documented as of this encounter
--- OUTSIDE RECORDS SUMMARY | 2022-03-29 07:55 | XMS_ITS | Encounter Summary ---
:1950 Author Organization [facility] Address [address] [place] [address] Care Team Providers Name Role Phone Unavailable Primary Care Provider Unavailable Encounter Details Date Type Department Care Team Description 02/27/2015 Hospital Encounter HX NO MAPPING Darlene Camejo M.D. [address] [place], [place] [phone] (Wo rk) Social History [...] How often do you attend yarsani or zoroastrianism services? 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 Coded By: LEONEL LORENZANA Date Saved: 03/08/2015 11:33 am Source: [facility] Document Id: [id number] documented in this encounter Plan of Treatment Upcoming Encounters Date Type Specialty Care Team Description 04/12/2022 Office Visit Cardiovascular Disease Simone Gooden AP RN, C.N.P. [address] [phone] (Wo rk) documented as of this encounter Visit Diagnoses Not on filedocumented in this encounter Additional Health Concerns Assessment Noted Time PHQ-9 Depression Total Score: 17 01/24/2015 11:26 AM C DT documented as of this encounter
--- OUTSIDE RECORDS SUMMARY | 2022-03-29 07:55 | XMS_ITS | Encounter Summary ---
:1950 Author Organization [facility] Address [address] [place] [address] Care Team Providers Name Role Phone Unavailable Primary Care Provider Unavailable Encounter Details Date Type Department Care Team Description 04/10/2015 Hospital Encounter HX [facility] Tamika Camejo M.D. [address] [place] [phone] (Wo rk) Social History Tobacco [...] How often do you attend scientology or bahai services? Never 04/16/2019 Do you [...] at Date Recorded Male 06/28/2019 8:47 AM SOYBEAN GROWER documented as of this encounter Last Filed Vital Signs Vital Sign Reading Time Taken Comments Blood Pressure 136/84 04/10/2015 10:33 AM SOYBEAN GROWER Pulse 88 04/10/2015 10:33 AM SOYBEAN GROWER Temperature - - Respiratory Rate - - Oxygen Saturation - - Inhaled Oxygen Concentration - - Weight - - Height 172 cm (5' 7.72) 04/10/2015 10:33 AM SOYBEAN GROWER Body Mass Index - - documented in this encounter Procedure Notes Tamika Camejo M.D. - 04/10/2015 11:48 AM CST CYSTO Document Contains Addenda Addendum by TAMIKA CAMEJO MD on 10 April 2015 11:51:44 SOYBEAN GROWER Mild bulbous urethral stricture noted; easily dilated with the cystoscopy. Will follow at time of next cystoscopy. Modified by and Electronically Signed by: TAMIKA CAMEJO MD On: 04/10/2015 11:52 AM CHIEF COMPLAINT / REASON FOR VISIT CYSTOSCOPY REPORT INDICATION History of bladder cancer. 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 He completed six weeks of induction immunotherapy with BCG. He had a recurrence resected on Jan 02, 2015, also grade I, stage Ta. He received a s econd 6-week course of BCG which he is tolerating. INSTRUMENT Flexible cystoscope. ANESTHESIA 2% aqueous lidocaine [...] into the urethra. FINDINGS Meatus: Normal. Urethra: No strictures noted. Bulbous urethra and membranous urethra are normal. Prostate: Length: 3 cm. Lateral lobes: Mild lateral lobe hypertrophy without visual obstruction. Middle lobe: Absent. Bladder neck: Unremarkable. Bladder: Residual urine: Minimal. Ureteral orifices: Singular bilaterally, normal position on the trigone, slit- like in configurationand with clear efflux of urine noted bilaterally. Trabeculation: Mild. Foreign bodies: No evidence of stones, or other foreign bodies. No recurrent disease is seen. COMMENTS The procedure was well tolerated by the patient. He was discharged from the office in satisfactory condition. Post-cystoscopy instructions were reviewed with him. IMPRESSION / REPORT / PLAN 1. History of bladder cancer; no evidence of disease. PLAN: Send sample for cytology and FISH. If negative 3 weeks of BCG and repeat cystoscopy in 3 months. Electronically Signed By: TAMIKA CAMEJO MD On: 04/10/2015 11:51 AM Source: [facility] POWERCHART Document Id: [id number] EAN GROWER documented in this encounter Miscellaneous Notes Miscellaneous - Kyaw Crawford APRN, R.N. - 04/14/2015 4:38 PM SOYBEAN GROWER Results Notification Document Contains Addenda Addendum by ADILSON IRWIN LPN on 17 April 2015 08:43:14 SOYBEAN GROWER Patient was informed of normal results. Addendum by ADILSON IRWIN LPN on 17 April 2015 08:34:19 SOYBEAN GROWER Left message for patient to return clinic call. Addendum by ADILSON IRWIN LPN on 14 April 2015 17:39:11 SOYBEAN GROWER Left message for patient to return call to clinic. From: KYAW CRAWFORD OVERHEAD FOREMAN To: Urology Nurse; Sent: 04/14/2015 16:38:26 SOYBEAN GROWER ! Show up: 04/14/2015 16:38:26 SOYBEAN GROWER Subject: Results Notification Actions: Notify patient of results Reminder Comments: FISH is negative Results: Date Result Name Value 04/10/2015 11:15 FUROC Result [place] Negative 04/10/2015 11:15 FUROC Result-[place] See Comment 04/10/2015 11:15 FUROC Interp-[place] See Comment 04/10/2015 11:15 FUROC Reason for Ref-[place] See Comment 04/10/2015 11:15 FUROC Spec[facility] Varies 04/10/2015 11:15 FUROC Source[facility] Urine, NOS 04/10/2015 11:15 FUROC Released By[facility] DARREL BOND Source: [facility] POWERCHART Document Id: [id number] Miscellaneous - Tamika Camejo M.D. - 04/11/2015 12:31 PM CST Results Notification Document Contains Addenda Addendum by PRUDENCIO CANNON LPN on 11 April 2015 17:54:50 SOYBEAN GROWER Patient notified of cytology when BCG appointment schedule mailed. Addendum by ADILSON IRWIN LPN on 11 April 2015 13:22:13 SOYBEAN GROWER FISH pending. From: TAMIKA CAMEJO MD To: Urology Nurse; Sent: 04/11/2015 12:31:16 SOYBEAN GROWER ! Show up: 04/11/2015 12:31:16 SOYBEAN GROWER Subject: Results Notification Actions: Notify patient of results Reminder Comments: cyto is neg Results: Date Result Type Result Name 04/11/2015 12:01 Document - DOC Non-HEALTH TECHNICIAN HEARING Cytology Source: [facility] POWERCHART Document Id: [id number] Electronically signed by [facility] Sourcing Assistant [id number] at 09/30/2016 3:58 PM CDT Miscellaneous - Prudencio Cannon, LBhaveshPBhaveshN. - 04/10/2015 10:33 AM CST Adult Ged Instructor Intake/History Adult Ged Instructor Intake/History Entered On: 04/10/2015 10:41 SOYBEAN GROWER Performed On: 04/10/2015 10:33 SOYBEAN GROWER by PRUDENCIO CANNON LPN Intake Chief Complaint : cystoscopy Temperature Core : 37 DegC(Converted to: 98.6 DegF) Peripheral Pulse Rate : 88 /min Heart Rhythm : Regular Systolic Blood Pressure : 136 mmHg Diastolic Blood Pressure : 84 mmHg NIBP Mean : 101 mmHg BP Location : Right upper extremity Blood Pressure Cuff Size : Regular Height : 172 cm(Converted to: 5 ft 8 inch(es), 68 inch(es)) PRUDENCIO CANNON LPN - 04/10/2015 10:33 SOYBEAN GROWER General Info Information Given By : Patient Preferred Communication Mode : Verbal Languages : Tajik Is Patient Female and 13-50 no hysterectomy : No PRUDENCIO CANNON LPN - 04/10/2015 10:33 SOYBEAN GROWER Subjective Pain Symptoms : No PRUDENCIO CANNON LPN - 04/10/2015 10:33 SOYBEAN GROWER Dependent Habits Exposure to Tobacco Smoke : Other: patient had quit but is now smoking some now and then Smoking Status : Current every day smoker Tobacco 2A : Yes Tobacco Use/Currently Using : Yes Tobacco Use/Last 30 Days : Yes Tobacco Use/Last 12 months : Yes Type : Cigarettes: Less than 20 per day Tobacco Use/Advised to Quit : Yes PRUDENCIO CANNON LPN - 04/10/2015 10:33 SOYBEAN GROWER Caffeine Use Grid Caffeine Use : Current Type : Coffee, Tea Frequency : Daily Amount : 2 cup coffee/2 tea daily PRUDENCIO CANNON Andrez INTERNET MARKETING CONSULTANT - 04/10/2015 10:33 SOYBEAN GROWER Recreational Drug Use Grid Drug Use : None PRUDENCIO CANNON INTERNET MARKETING CONSULTANT - 04/10/2015 10:33 SOYBEAN GROWER Source: [facility] POWERCHART Document Id: [id number] SOYBEAN GROWER!37 EAN GROWER documented in this encounter Plan of Treatment Upcoming Encounters Date Type Specialty Care Team Description 04/12/2022 Office Visit Cardiovascular Disease Simone Gooden AP RN, C.N.P. [address] [phone] (Wo rk) documented as of this encounter Procedures Procedure Name Priority Date/Time Associated Comments Diagnosis UROVYSION (R) FOR Routine 04/10/2015 11:15 Result s for this BLADDER CANCER AM SOYBEAN GROWER procedure are in the results section. ZZPATHOLOGY NON-HEALTH TECHNICIAN HEARING Routine 04/10/2015 9:23 AM Re sults for this CYTOLOGY SOYBEAN GROWER procedure are i n the results section. documented in this encounter Results UroVysion for Detection of Bladder Cancer, Urine (04/10/2015 11:15 AM SOYBEAN GROWER) [facility] Method Time Signature HXFUROC Result Negative POWERCHART [facility] HXFUROC See Comment POWERCHART Result-[place] Comment: RESULT: No evidence of urotheli al [...] probe for 9p21. PDF Report available at: [email or web address] Reason For Referral See Comment POWERCHA RT Comment: RESULT: Evaluate for urothelial carcinoma. HXFUROC Spec-[place] Varies POWERCHART HXFUROC Source[facility] Urine, NOS POWERCHAR T HXFUROC Released By-[place] D[place]REL [place] Comment: Test Performed by: [facility] [place] [address] Distribution Spec: Adiel Toledo II, M.D., Ph.D. Specimen (Source) Anatomical Collection Method Collection Time Re ceived Time Location / / Volume Laterality Urine 04/10/2015 11:15 AM SOYBEAN GROWER Tamika Camejo M.D. LAB GENETIC TESTING Performing Organization Address City/State/ZIP Code Phon e Number POWERCHART ZZPATHOLOGY NON-HEALTH TECHNICIAN HEARING CYTOLOGY (04/10/2015 9:23 AM SOYBEAN GROWER) Specimen (Source) Anatomical Collection Method Collection Time Re ceived Time Location / / Volume Laterality 04/10/2015 9:23 AM SOYBEAN GROWER Narrative [facility] LAB - 04/11/2015 12:01 PM SOYBEAN GROWER [facility] in [address] ??[phone] Patient Name: SEVEN SALAZAR Patient ID #: [id number] Collected: 04/10/2015 Address: City/State/Zip: [address] [place] [address] ??[phone] Received: Reported: 04/11/2015 04/11/2015 Soc. Sec. #: ?/Age/Sex 1950 (Age: 65) ??M Physician(s): A GRANT Copy To: ? [facility] ??[id number] [address] [place] [address] A[place], ??[place] ??[address] CYTOPATHOLOGY NON-HEALTH TECHNICIAN HEARING REPORT FINAL CYTOLOGIC DIAGNOSIS Urine-VOIDED: NEGATIVE FOR MALIGNANCY SATISFACTORY SPECIMEN FOR EVALUATION. Electronically Signed By eae/04/11/2015 TREVA JOYA M.D. [facility](ASCP) SPECIMEN(S) RECEIVED: Urine-VOIDED CLINICAL HISTORY: HISTORY OF BLADDER CANCER GROSS DESCRIPTION: 2 CYTOSPINS PREPARED FROM 30 [...]
--- OUTSIDE RECORDS SUMMARY | 2022-03-29 07:55 | XMS_ITS | Encounter Summary ---
:1950 Author Organization [facility] Address [address] [place] [address] Care Team Providers Name Role Phone Unavailable Primary Care Provider Unavailable Encounter Details Date Type Department Care Team Description 06/05/2015 Hospital Encounter HX [facility] Jatinder Camejo M.D. [address] [place] [phone] (Wo rk) Social History Tobacco [...] How often do you attend quaker or druze services? Never 04/16/2019 Do you [...] Date Recorded Male 06/28/2019 8:47 AM BUSINESS CONTINUITY COORDINATOR documented as of this encounter Last Filed Vital Signs Vital Sign Reading Time Taken Comments Blood Pressure 136/78 06/05/2015 9:18 AM BUSINESS CONTINUITY COORDINATOR Pulse 84 06/05/2015 9:18 AM BUSINESS CONTINUITY COORDINATOR Temperature - - Respiratory Rate - - Oxygen Saturation - - Inhaled Oxygen Concentration - - Weight - - Height 172 cm (5' 7.72) 06/05/2015 9:18 AM BUSINESS CONTINUITY COORDINATOR Body Mass Index - - documented in this encounter Nursing Notes Prudencio Cannon L.PBhaveshN. - 06/05/2015 9:18 AM CST Nurse Only Documentation Nurse Only Documentation Entered On: 06/05/2015 9:21 BUSINESS CONTINUITY COORDINATOR Performed On: 06/05/2015 9:18 BUSINESS CONTINUITY COORDINATOR by PRUDENCIO CANNON LPN Nurse Only Documentation Nurse Only Visit Documentation : BCG 1 of 3 PRUDENCIO CANNON LPN - 06/05/2015 9:18 BUSINESS CONTINUITY COORDINATOR Vitals/Ht/Wt Temperature Core : 37 DegC(Converted to: 98.6 DegF) Peripheral Pulse Rate : 84 /min Systolic Blood Pressure : 136 mmHg Diastolic Blood Pressure : 78 mmHg NIBP Mean : 97 mmHg BP Location : Left upper extremity Blood Pressure Cuff Size : Large Height : 172 cm(Converted to: 5 ft 8 inch(es), 68 inch(es)) PRUDENCIO CANNON LPN - 06/05/2015 9:18 BUSINESS CONTINUITY COORDINATOR Source: [facility] InfobrightCHART Document Id: [id number] BUSINESS CONTINUITY COORDINATOR!12 NESS CONTINUITY COORDINATOR documented in this encounter Plan of Treatment Upcoming Encounters Date Type Specialty Care Team Description 04/12/2022 Office Visit Cardiovascular Disease Simone Gooden AP RN, C.N.P. [address] [phone] (Wo rk) documented as of this encounter Visit Diagnoses Not on filedocumented in this encounter Additional Health Concerns Assessment Noted Time PHQ-9 Depression Total Score: 17 01/24/2015 11:26 AM C DT documented as of this encounter
--- OUTSIDE RECORDS SUMMARY | 2022-03-29 07:55 | XMS_ITS | Encounter Summary ---
:1950 Author Organization [facility] Address [address] [place] [address] Care Team Providers Name Role Phone Unavailable Primary Care Provider Unavailable Encounter Details Date Type Department Care Team Description 06/26/2015 Hospital Encounter HX [facility] Tarik Camejo M.D. [address] [place], [place] [phone] (Wo rk) Social History [...] How often do you attend buddhist or adventist services? Never 04/16/2019 Do you [...] at Date Recorded Male 06/28/2019 8:47 AM CERTIFIED HYPERBARIC TECHNOLOGIST documented as of this encounter Last Filed Vital Signs Vital Sign Reading Time Taken Comments Blood Pressure - - Pulse - - Temperature - - Respiratory Rate - - Oxygen Saturation - - Inhaled Oxygen Concentration - - Weight - - Height 172 cm (5' 7.72) 06/26/2015 8:44 AM CERTIFIED HYPERBARIC TECHNOLOGIST Body Mass Index - - documented in this encounter Plan of Treatment Upcoming Encounters Date Type Specialty Care Team Description 04/12/2022 Office Visit Cardiovascular Disease Simone Gooden AP RN, C.N.P. [address] [phone] (Wo rk) documented as of this encounter Procedures Procedure Name Priority Date/Time Associated Comments Diagnosis URINALYSIS WITH Routine 06/26/2015 8:51 AM Result s for this MICROSCOPIC CERTIFIED HYPERBARIC TECHNOLOGIST procedure are i n the results section. documented in this encounter Results (ABNORMAL) Urinalysis, Complete, Includes Microscopic (06/26/2015 8:51 AM CERTIFIED HYPERBARIC TECHNOLOGIST) [facility] gist Method Time Signature Clarity Clear Clear POWERCHART HXUr Color Yellow Colorless POWERCHART Specific 1.015 POWERCHART Sumrall, POCT, U pH, POCT, Urine 7.0 <5.0 POWERCHART Protein, Ur, Dip Negative Negative POWERCHART MGDL Glucose Negative Negative POWERCHART MGDL Ketones, QL(U) Negative Negative POWERCHART MGDL HXBILIRUBIN Negative Negative POWERCHART HXBLOOD Trace (A) Negative POWERCHART Leukocyte Trace (A) Negative POWERCHART Esterase HXNITRITE Negative Negative POWERCHART Urobilinogen 0.2 0.2 MGDL POWERCHART HXUR WBC. 4-10 (A) None Seen POWERCHART HPF HXUR RBC. Occ-2 None Seen POWERCHART HPF Squamous Occ-3 (A) None Seen POWERCHART Epithelial HPF HXUR Bacteria, None Seen None Seen POWERCHART Specimen (Source) Anatomical Collection Method Collection Time Re ceived Time Location / / Volume Laterality Urine, First 06/26/2015 8:51 AM Voided CERTIFIED HYPERBARIC TECHNOLOGIST Jatinder Camejo M.D. LAB URINE ORDERABLES Performing Organization Address City/State/ZIP Code Phon e Number POWERCHART documented in this encounter Visit Diagnoses Not on filedocumented in this encounter Additional Health Concerns Assessment Noted Time PHQ-9 Depression Total Score: 17 01/24/2015 11:26 AM C DT documented as of this encounter
--- OUTSIDE RECORDS SUMMARY | 2022-03-29 07:55 | XMS_ITS | Encounter Summary ---
:1950 Author Organization [facility] Address [address] [place] [address] Care Team Providers Name Role Phone Unavailable Primary Care Provider Unavailable Encounter Details Date Type Department Care Team Description 03/06/2015 Hospital Encounter HX [facility] Jatinder Camejo M.D. [address] [place] [phone] (Wo rk) Social History Tobacco [...] How often do you attend druze or restoration services? Never 04/16/2019 Do you belong to [...] at Date Recorded Male 06/28/2019 8:47 AM INSTRUCTOR PSYCHIATRIC AIDE documented as of this encounter Last Filed Vital Signs Vital Sign Reading Time Taken Comments Blood Pressure 130/80 03/06/2015 9:21 AM INSTRUCTOR PSYCHIATRIC AIDE Pulse 88 03/06/2015 9:21 AM INSTRUCTOR PSYCHIATRIC AIDE Temperature - - Respiratory Rate 24 03/06/2015 9:21 AM INSTRUCTOR PSYCHIATRIC AIDE Oxygen Saturation - - Inhaled Oxygen Concentration - - Weight - - Height 172 cm (5' 7.72) 03/06/2015 9:21 AM INSTRUCTOR PSYCHIATRIC AIDE Body Mass Index - - documented in this encounter Nursing Notes Parul Kim L.P.N. - 03/06/2015 9:21 AM CST Nurse Only Documentation Nurse Only Documentation Entered On: 03/06/2015 9:23 INSTRUCTOR PSYCHIATRIC AIDE Performed On: 03/06/2015 9:21 INSTRUCTOR PSYCHIATRIC AIDE by PARUL KIM LPN Nurse Only Documentation Nurse Only Visit Documentation : PARUL MORELAND LPN - 03/06/2015 9:21 INSTRUCTOR PSYCHIATRIC AIDE Vitals/Ht/Wt Temperature Core : 37.4 DegC(Converted to: 99.3 DegF) Peripheral Pulse Rate : 88 /min Respiratory Rate : 24 /min (HI) Systolic Blood Pressure : 130 mmHg Diastolic Blood Pressure : 80 mmHg NIBP Mean : 97 mmHg BP Location : Left upper extremity Blood Pressure Cuff Size : Regular Oxygen Therapy : Room air Height : 172 cm(Converted to: 5 ft 8 inch(es), 68 inch(es)) PARUL KIM LPN - 03/06/2015 9:21 INSTRUCTOR PSYCHIATRIC AIDE Source: [facility] POWERCHART Document Id: [id number] INSTRUCTOR PSYCHIATRIC AIDE!14 RUCTOR PSYCHIATRIC AIDE documented in this encounter Miscellaneous Notes Telephone Encounter - Conversion, Historical Provider Ser - 03/16/2015 8:10 AM CST *Phone Message Document Contains Addenda Addendum by CHUCKY DUNCAN LPN on 16 March 2015 13:26:14 INSTRUCTOR PSYCHIATRIC AIDE Patient notified of prescription. Addendum by RILEY SANCHEZ MD on 16 March 2015 11:42:09 INSTRUCTOR PSYCHIATRIC AIDE From: RILEY SANCHEZ MD To: Laura Nurse; Sent: 03/16/2015 11:42:09 INSTRUCTOR PSYCHIATRIC AIDE Subject: RE: *Phone Message Actions: Notify patient- refer to General Message, Notify patient of Future Order Please see below ofr new Rx. Addendum by RILEY SANCHEZ MD on 16 March 2015 11:41:59 INSTRUCTOR PSYCHIATRIC AIDE Submitted: Order:predniSONE (predniSONE 20 mg oral tablet) 1 tab(s) PO Daily with food Qty: 10 tab(s) Duration: 10 day(s) Refills: 0 Substitutions Allowed Route To Pharmacy - [id number] Signed by RILEY SANCHEZ MD Addendum by CHUCKY DUNCAN LPN on 16 March 2015 11:05:32 INSTRUCTOR PSYCHIATRIC AIDE From: CHUCKY DUNCAN LPN ( Laura Nurse) To: RILEY SANCHEZ MD; Sent: 03/16/2015 11:05:32 INSTRUCTOR PSYCHIATRIC AIDE Subject: FW: *Phone Message Addendum by CHUCKY DUNCAN LPN on 16 March 2015 11:05:26 INSTRUCTOR PSYCHIATRIC AIDE Patient states that he was seen in the Emergency Room last friday for joint swelling. He was given a shot of Ketrolac and a prescription for prednisone 20mg daily. Patient completed the prednisone today. He states that it worked but by nighttime each night the swelling would start to return. Patient is scheduled to see you on Friday and would like prednisone to get him through until his appointment with you. Please advise. From: CHARMAINE RTALIFF ([facility] Agricultural Aircraft Pilot) To: JOSE Sanchez Nurse; Sent: 03/16/2015 08:10:14 INSTRUCTOR PSYCHIATRIC AIDE Subject: *Phone Message Caller is: ( x ) Patient ( ) Mother ( ) Father ( ) Spouse ( ) Daughter ( ) Son ( ) Pharmacy ( ) Other: Physician: Patient MRN #: Reason for Call: Patient needs a nurse to call him. He has questions and concerns regarding several things. [phone] Message: Advice/Action: Source used: ( ) Verbalizes understanding [...] back cell phone number ( ) Source: [facility] POWERCHART Document Id: [id number] documented in this encounter Plan of Treatment Upcoming Encounters Date Type Specialty Care Team Description 04/12/2022 Office Visit Cardiovascular Disease Simone Gooden AP RN, C.N.P. [address] [phone] (Wo rk) documented as of this encounter Visit Diagnoses Not on filedocumented in this encounter Additional Health Concerns Assessment Noted Time PHQ-9 Depression Total Score: 17 01/24/2015 11:26 AM C DT documented as of this encounter
--- OUTSIDE RECORDS SUMMARY | 2022-03-29 07:55 | XMS_ITS | Encounter Summary ---
:1950 Author Organization [facility] Address [address] [place] [address] Care Team Providers Name Role Phone Unavailable Primary Care Provider Unavailable Encounter Details Date Type Department Care Team Description 04/17/2015 Hospital Encounter HX [facility] Leta Sanchez M.D. [address] [facility] [address] [phone] Social History Tobacco Use Types Packs/Day [...] How often do you attend sabianism or taoist services? Never 04/16/2019 Do you [...] at Date Recorded Male 06/28/2019 8:47 AM LIFE GUARD documented as of this encounter Last Filed Vital Signs Vital Sign Reading Time Taken Comments Blood Pressure - - Pulse - - Temperature - - Respiratory Rate - - Oxygen Saturation - - Inhaled Oxygen Concentration - - Weight - - Height 172 cm (5' 7.72) 04/17/2015 10:07 AM LIFE GUARD Body Mass Index - - documented in this encounter Miscellaneous Notes Miscellaneous - Renee Gomez P.A.-C. - 04/20/2015 12:22 PM CST Results Notification Document Contains Addenda Addendum by CHUCKY DUNCAN LPN on 20 April 2015 13:17:42 LIFE GUARD Patient notified of results. From: RENEE GOMEZ PA-C To: JOSE Sanchez Nurse; Sent: 04/20/2015 12:22:08 LIFE GUARD ! Show up: 04/20/2015 12:22:08 LIFE GUARD Subject: Results Notification Actions: Note to Nurse Reminder Comments: OK. Follow up as scheduled Results: Date Result Name Ind Value Ref Range 04/17/2015 10:08 Sodium Lvl 140 mmol/L (135 - 145) 04/17/2015 10:08 Potassium Lvl 4.6 mmol/L (3.6 - 5.2) 04/17/2015 10:08 Chloride 99 mmol/L (98 - 107) 04/17/2015 10:08 CO2 (H) 30 mmol/L (22 - 29) 04/17/2015 10:08 AGAP 11 mmol/L (7 - 15) 04/17/2015 10:08 Glucose Lvl 89 mg/dL (70 - 139) 04/17/2015 10:08 Creatinine 0.8 mg/dL (0.8 - 1.3) 04/17/2015 10:08 EGFR (MDRD) >60 mL/min/1.73m2 (>=60 - ) 04/17/2015 10:08 EGFR (MDRD) >60 mL/min/1.73m2 (>=60 - ) 04/17/2015 10:08 BUN 19 mg/dL (8 - 24) 04/17/2015 10:08 Calcium Lvl 9.9 mg/dL (8.8 - 10.3) 04/17/2015 10:08 Hgb 14.3 g/dL (13.5 - 17.5) 04/17/2015 10:08 Hct 44.6 % (38.8 - 50.0) 04/17/2015 10:08 WBC (H) 11.2 x10(9)/L (3.5 - 10.5) 04/17/2015 10:08 RBC 5.06 x10(12)/L (4.32 - 5.72) 04/17/2015 10:08 MCV 88.1 fL (81.0 - 95.0) 04/17/2015 10:08 RDW (H) 15.8 % (11.8 - 15.6) 04/17/2015 10:08 Platelet 266 x10(9)/L (150 - 450) 04/17/2015 10:08 Neutro Absolute (H) 8.92 10(9)/L (1.70 - 7.00) 04/17/2015 10:08 Lymph Absolute 1.37 x10(9)/L (0.90 - 2.90) 04/17/2015 10:08 [place] Absolute 0.77 x10(9)/L (0.30 - 0.90) 04/17/2015 10:08 Eos Absolute 0.08 x10(9)/L (0.05 - 0.50) 04/17/2015 10:08 Baso Absolute 0.01 x10(9)/L (0.00 - 0.30) 04/17/2015 10:08 Sed Rate 19 mm/hr (0 - 22) Source: [facility] POWERCHART Document Id: [id number] Electronically signed by Conversion, [facility] Aligner Barrel And Receiver [id number] at 09/30/2016 3:58 PM CDT documented in this encounter Plan of Treatment Upcoming Encounters Date Type Specialty Care Team Description 04/12/2022 Office Visit Cardiovascular Disease Simone Gooden AP RN, C.N.P. [address] [phone] (Wo rk) documented as of this encounter Procedures Procedure Name Priority Date/Time Associated Comments Diagnosis AUTOMATED Routine 04/17/2015 10:08 Results for this DIFFERENTIAL, B AM LIFE GUARD procedure ar e in the results section. SEDIMENTATION RATE, B Routine 04/17/2015 10:08 Re sults for this AM LIFE GUARD procedure are i n the results section. CBC WITH DIFFERENTIAL, Routine 04/17/2015 10:08 R esults for this B AM LIFE GUARD procedure are i n the results section. BASIC METABOLIC PANEL, Routine 04/17/2015 10:08 R esults for this S/P AM LIFE GUARD procedure are i n the results section. documented in this encounter Results (ABNORMAL) Automated Differential (04/17/2015 10:08 AM LIFE GUARD) [facility] Method Time Signature Absolute 8.92 (H) 1.70 - POWERCHART Neutrophils 7.00 109L Lymphocytes 1.37 0.90 - POWERCHART 2.90 X109L Monocytes 0.77 0.30 - POWERCHART 0.90 X109L Eosinophils 0.08 0.05 - POWERCHART 0.50 X109L Absolute 0.01 0.00 - POWERCHART Basophil 0.30 X109L Specimen Anatomical Collection Method Collection Time Receive d Time (Source) Location / / Volume Laterality Blood 04/17/2015 10:08 04/17/2015 AM LIFE GUARD 10:08 AM LIFE GUARD patrick [facility].[place]. LAB BLOOD ADD-ON Performing Organization Address City/State/ZIP Code Phon e Number POWERCHART Sedimentation Rate (04/17/2015 10:08 AM LIFE GUARD) Analysis Performed At [facility] Signature Sedimentation 19 0 - 22 POWERCHART Rate, B MMHR Specimen (Source) Anatomical Collection Method Collection Time Re ceived Time Location / / Volume Laterality Blood 04/17/2015 10:[address] [facility].Ele LAB BLOOD ADD-ON Performing Organization Address City/[facility]/ZIP Code Phon e Number POWERCHART (ABNORMAL) CBC with Differential (04/17/2015 10:08 AM LIFE GUARD) Analysis Performed At [facility] Time Signature Leukocytes 11.2 (H) 3.5 - 10.5 POWERCHART X109L Erythrocytes 5.06 4.32 - POWERCHART 5.72 [id number] Hemoglobin 14.3 13.5 - POWERCHART 17.5 GDL Hematocrit 44.6 38.8 - POWERCHART 50.0 MCV 88.1 81.0 - POWERCHART 95.0 FL HX RDW 15.8 (H) 11.8 - POWERCHART 15.6 Platelet Count 266 150 - 450 POWERCHART X109L Specimen (Source) Anatomical Collection Method Collection Time Re ceived Time Location / / Volume Laterality Blood 04/17/2015 10:08 AM [facility] LAB BLOOD ADD-ON Performing Organization Address City/[facility]/ZIP Code Phon e Number POWERCHART (ABNORMAL) BMP (Basic Metabolic Panel) (04/17/2015 10:08 AM LIFE GUARD) athologist Signature Anion Gap 11 7 - 15 POWERCHART MMOLL BUN (Blood Urea 19 8 - 24 POWERCHART Nitrogen), S MGDL Chloride, S 99 98 - 107 POWERCHART MMOLL CO2 Total 30 (H) 22 - 29 POWERCHART MMOLL Creatinine 0.8 0.8 - 1.3 POWERCHART MGDL Glucose 89 70 - 139 POWERCHART MGDL Calcium, Total, 9.9 8.8 - 10.3 POWERCHART S MGDL Sodium, S 140 135 - 145 POWERCHART MMOLL Potassium, S 4.6 3.6 - 5.2 POWERCHART MMOLL HXeGFR (MDRD) >60 >=60 POWERCHART [id number] eGFR >60 >=60 POWERCHART Black/ [id number] Lebanese Specimen (Source) Anatomical Collection Method Collection Time Re ceived Time Location / / Volume Laterality Blood 04/17/2015 10:08 AM LIFE GUARD Leta Sanchez M.D. LAB BLOOD ADD-ON Performing Organization Address City/State/ZIP Code Phon e Number POWERCHART documented in this encounter Visit Diagnoses Not on filedocumented in this encounter Additional Health Concerns Assessment Noted Time PHQ-9 Depression Total Score: 17 01/24/2015 11:26 AM C DT documented as of this encounter
--- OUTSIDE RECORDS SUMMARY | 2022-03-29 07:55 | XMS_ITS | Encounter Summary ---
:1950 Author Organization [facility] Address [address] [place] [address] Care Team Providers Name Role Phone Unavailable Primary Care Provider Unavailable Encounter Details Date Type Department Care Team Description 02/27/2015 Hospital Encounter HX [facility] Jatinder Camejo M.D. [address] [place] [address] (Wo rk) Social History Tobacco [...] How often do you attend adventism or yarsanism services? Never 04/16/2019 Do you [...] at Date Recorded Male 06/28/2019 8:47 AM BOOTMAKER HAND documented as of this encounter Last Filed Vital Signs Vital Sign Reading Time Taken Comments Blood Pressure 126/78 02/27/2015 10:24 AM CDT Pulse 58 02/27/2015 10:24 AM CDT Temperature - - Respiratory Rate - - Oxygen Saturation - - Inhaled Oxygen Concentration - - Weight - - Height 172 cm (5' 7.72) 02/27/2015 10:24 AM CDT Body Mass Index - - documented in this encounter Nursing Notes Shellie Irwin, L.P.N. - 02/27/2015 10:24 AM CDT Nurse Only Documentation Nurse Only Documentation Entered On: 02/27/2015 10:26 CDT Performed On: 02/27/2015 10:24 CDT by SHELLIE IRWIN LPN Nurse Only Documentation Nurse Only Visit Documentation : 5 of 6 BCG SHELLIE IRWIN LPN - 02/27/2015 10:24 CDT Vitals/Ht/Wt Temperature Core : 37.1 DegC(Converted to: 98.8 DegF) Peripheral Pulse Rate : 58 /min (LOW) Systolic Blood Pressure : 126 mmHg Diastolic Blood Pressure : 78 mmHg NIBP Mean : 94 mmHg BP Location : Left upper extremity Blood Pressure Cuff Size : Regular Height : 172 cm(Converted to: 5 ft 8 inch(es), 68 inch(es)) SHELLIE IRWIN LPN - 02/27/2015 10:24 CDT Source: [place] Document Id: [id number] CDT!12 documented in this encounter Plan of Treatment Upcoming Encounters Date Type Specialty Care Team Description 04/12/2022 Office Visit Cardiovascular Disease Simone Gooden AP RN, C.N.P. [address] [phone] (Wo rk) documented as of this encounter Visit Diagnoses Not on filedocumented in this encounter Additional Health Concerns Assessment Noted Time PHQ-9 Depression Total Score: 17 01/24/2015 11:26 AM C DT documented as of this encounter
--- OUTSIDE RECORDS SUMMARY | 2022-03-29 07:55 | XMS_ITS | Encounter Summary ---
:1950 Author Organization [facility] Address [address] [place] [address] Care Team Providers Name Role Phone Unavailable Primary Care Provider Unavailable Encounter Details Date Type Department Care Team Description 04/17/2015 Hospital Encounter [facility] Riley Jimenez M.D. [address] [facility], [facility] [address] [phone] Social History Tobacco Use Types Packs/Day [...] How often do you attend islam or latter day services? Never 04/16/2019 Do [...] at Date Recorded Male 06/28/2019 8:47 AM PUBLICATIONS EDITOR documented as of this encounter Last Filed Vital Signs Vital Sign Reading Time Taken Comments Blood Pressure 138/82 04/17/2015 9:20 AM PUBLICATIONS EDITOR Pulse 89 04/17/2015 9:04 AM PUBLICATIONS EDITOR Temperature - - Respiratory Rate 16 04/17/2015 9:04 AM PUBLICATIONS EDITOR Oxygen Saturation - - Inhaled Oxygen Concentration - - Weight 107 kg (235 lb 14.3 oz) 04/17/2015 9:04 AM PUBLICATIONS EDITOR Height 172 cm (5' 7.72) 04/17/2015 9:20 AM PUBLICATIONS EDITOR Body Mass Index 36.17 04/17/2015 9:04 AM PUBLICATIONS EDITOR documented in this encounter Progress Notes Riley Sanchez M.D. - 04/17/2015 9:00 AM CST [id number] CHIEF COMPLAINT/ REASON FOR VISIT Followup of hospital stay. HISTORY OF PRESENT ILLNESS Seven is a 65-year-old male who presents to the clinic today for a two-week followup from 03/20/2015. He was hospitalized at [facility] on 03/06/2015 for severe back pain. Urine culture was abnormal, treated with Cipro 500 mg for 10 days. He was also given [place] and Naproxen for pain relief. He was discharged on 03/08/2015. This past Friday, he tried discontinuing Prednisone [on for polymyalgia rheumatica] because he does not like taking it, but had pain approximately 5-6 hours later. He notes that Prednisone does make a significant difference in his pain level. He has not had any side effects to Prednisone. Seven hasnot yet completed blood work today, specifically Sed rate. For his history of bladder cancer, he saw Dr. Camejo last week and completed cystoscopy on 04/10/2015, which was negative. His FISH testing was also negative. He was told that there was some inflammation in his urine bladder based on cystoscopy, and thus Dr. Camejo wanted to start Seven on treatment for this in 05/2015. No blood or pain in the urine. He has completed BCG therapy. He continues to smoke, stating that he is smoking and eating more with Prednisone use. He has had noticeable weight gain of 14 pounds per the patients report. He has started working out again. Intermittently, he will have leg and hand cramping. We discussed that this is most likely due to polymyalgia rheumatica or BCG therapy for history of bladder cancer. We reviewed immunizations today, and he declines flu shot given that he felt ill with previous vaccination. I reviewed and updated his medications. We discussed potential side effects. Otherwise, there are noother questions, concerns, or complaints. MEDICATIONS Reviewed and updated as per the EMR dated 04/17/2015. ALLERGIES Reviewed and updated as per the EMR dated 04/17/2015. SYSTEMS REVIEW As per the history of present illness. All other systems are reviewed and are negative. PAST MEDICAL/ SURGICAL HISTORY Reviewed and updated as per the EMR dated 04/17/2015. PREVENTIVE SERVICES Reviewed and updated as per the EMR dated 04/17/2015. SOCIAL HISTORY Reviewed and updated as per the EMR dated 04/17/2015. FAMILY HISTORY Reviewed and updated as per the EMR dated 04/17/2015. VITAL SIGNS HEIGHT: 172 cm. WEIGHT: 107 kg. BMI: 36.17 kg/m2. PULSE RATE: 89 /min. RESP RATE: 16 /min. SpO2: 99 %. SYSTOLIC: 168 mmHg. Repeat of 163 mmHg. Second repeat of 138 mmHg. DIASTOLIC: 99 mmHg. Repeat of 88 mmHg. Second repeat of 82 mmHg. PHYSICAL EXAMINATION GENERAL: Patient is sitting. No distress. Able to talk without interruption. IMPRESSION/ REPORT/ PLAN 1. Arthralgia, myalgia with history of polymyalgia rheumatica. It could be multifactorial, includingBCG therapy, Pravastatin, and recurrence polymyalgia rheumatica. Continue off Pravastatin and stay on over the counter Co-Q10 200 mg daily. We will check blood tests below. He did try discontinuing Prednisone approximately two days ago, but experienced pain five to six hours later. Ultimately, he feels better with Prednisone, and has not had any noticeable side effects to this. He will continue Prednisone 20 mg daily in the morning. 2. Hyperlipidemia. Continue on Co-Q10. Patient was advised to continue low cholesterol, low fat dietand regular exercise. 3. Hypertension. Blood pressure is high initially, but does improve with final blood pressure reading. He is a smoker and admits to smoking one cigarette prior to todays visit. He is also on Prednisonefor polymyalgia rheumatica, and we discussed that this can cause fluid retention leading to elevatedblood pressure. Advised him to watch his sodium intake. 4. History of bladder cancer. He recently had negative cystoscopy and FISH testing. As per the patient, he was told that he would need another treatment of BCG due to some inflammation noted of his urine bladder. He will check with Dr. Camejo as to why he needs another treatment of BCG therapy. 5. Cyst in right kidney, previously thought to be a kidney mass. He has no symptoms. I reviewed ultrasound report. Continue monitoring. 6. Myalgia of the hands and legs. Discussed possible etiologies today including intravesical BCG andpolymyalgia rheumatica. Continue monitoring. 7. Influenza immunization declined today. Advised him to continue with hand hygiene. 8. Renewed the following medication today: Prednisone. The patient will return to the clinic in 05/2015 for followup and will have the following labs completed prior to this visit: CK, ALT, AST, lipid panel, and BMP. Administrative Billing 40 minutes spent with greater than 50% counseling, coordination of care, answering the questions anddiscussing management of above medical problems. This document serves as a record of services personally performed by Dr. Riley Sanchez. It was created on their behalf by Eileen Stanley, a trained medical photographer. The creation of this record is based on the scribe's personal observations and the provider's statements to them. This document has been checked and approved by the attending provider. Riley Sanchez M.D./rosibel Electronically Signed By: RILEY SANCHEZ MD On: 04/25/2015 06:11 PM Modified by and Electronically Signed by: RILEY SANCHEZ MD On: 04/25/2015 06:11 PM Source: [facility] MHSDOLBEYNONRADSYS Document Id: [id number] ICATIONS EDITOR documented in this encounter Procedure Notes Riley Sanchez M.D. - 04/17/2015 9:18 AM CST Cancel Permanently Flu Vaccine Cancel Permanently Flu Vaccine Entered On: 04/17/2015 9:18 PUBLICATIONS EDITOR Performed On: 04/17/2015 9:18 PUBLICATIONS EDITOR by RILEY SANCHEZ MD Cancel Permanently Flu Vaccine Cancel Permanently Flu Vaccine : Allergy/Intolerance or interaction RILEY SANCHEZ MD - 04/17/2015 9:18 PUBLICATIONS EDITOR Source: [facility] POWERCHART Document Id: [id number] PUBLICATIONS EDITOR!3 ICATIONS EDITOR documented in this encounter Miscellaneous Notes Miscellaneous - Riley Sanchez M.D. - 04/17/2015 9:26 AM CST Ambulatory Patient Summary [place] [id number] Visit Information Name: SEVEN SALAZRA [facility] Number: [id number] Current Date: 04/17/2015 09:26:20 Physicians Attending Provider: RILEY SANCHEZ MD Primary [...] meals predniSONE (predniSONE 20 mg oral tablet) 1 Tablet(s), Oral, once a day (in the morning) with food Routed to 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 Go to [email or web address] and click on Create Your Account. Then, follow the directions to complete the online form. Youll be asked for your [facility] number which you can find at the top of this document. Your Goals/Additional instructions: Source: [facility] POWERCHART Document Id: [id number] ICATIONS EDITOR Miscellaneous - Riley Sanchez M.D. - 04/17/2015 9:26 AM CST Ambulatory Discharge Medication List [address] [id number] Visit Information Name: SEVEN SALAZAR [facility] Number: [id number] Visit Date: 04/17/2015 09:26:19 Attending Provider: RILEY SANCHEZ MD Primary Care [...] meals predniSONE (predniSONE 20 mg oral tablet) 1 Tablet(s), Oral, once a day (in the morning) with food Routed to [facility] [place] [address] ubiquinone (Co-Q10 200 mg oral capsule) 1 cap, Oral, once a day Stop Taking the Following Medications: HYDROcodone-acetaminophen (HYDROcodone-acetaminophen 5 mg-325 mg oral tablet) Medication list as of 04-17-15 09:26 Attention: If you have any medications at [...] Electronically Signed By: RILEY SANCHEZ MD Signed On:17-APR-2015 09:26:15 Additional Information: Source: [facility] POWERCHART Document Id: [id number] ICATIONS EDITOR Miscellaneous - Riley Sanchez M.D. - 04/17/2015 9:20 AM CST Ambulatory Vitals Height Weight Ambulatory Vitals Height Weight Entered On: 04/17/2015 9:21 PUBLICATIONS EDITOR Performed On: 04/17/2015 9:20 PUBLICATIONS EDITOR by RILEY SANCHEZ MD Vitals/Ht/Wt Systolic Blood Pressure : 138 mmHg Diastolic Blood Pressure : 82 mmHg NIBP Mean : 101 mmHg BP Location : Left upper extremity Blood Pressure Cuff Size : Large Height : 172 cm(Converted to: 5 ft 8 inch(es), 68 inch(es)) RILEY SANCHEZ MD - 04/17/2015 9:20 PUBLICATIONS EDITOR Source: [facility] Document Id: [id number] PUBLICATIONS EDITOR!8 ICATIONS EDITOR Miscellaneous - Juany Duncan LBhaveshP.NBhavesh - 04/17/2015 9:08 AM CST Ambulatory Vitals Height Weight Ambulatory Vitals Height Weight Entered On: 04/17/2015 9:09 PUBLICATIONS EDITOR Performed On: 04/17/2015 9:08 PUBLICATIONS EDITOR by JUANY DUNCAN LPN Vitals/Ht/Wt Systolic Blood Pressure : 163 mmHg (>HHI) Diastolic Blood Pressure : 88 mmHg NIBP Mean : 113 mmHg BP Location : Right upper extremity Blood Pressure Cuff Size : Large Height : 172 cm(Converted to: 5 ft 8 inch(es), 68 inch(es)) JUANY DUNCAN LPN - 04/17/2015 9:08 PUBLICATIONS EDITOR Source: [employer] Document Id: [id number] PUBLICATIONS EDITOR!8 ICATIONS EDITOR Jodicellaneous - Juany Duncan L.P.NBhavesh - 04/17/2015 9:04 AM CST Adult Voice Pathologist Intake/History Adult Voice Pathologist Intake/History Entered On: 04/17/2015 9:08 PUBLICATIONS EDITOR Performed On: 04/17/2015 9:04 PUBLICATIONS EDITOR by JUANY DUNCAN LPN Intake Chief Complaint : 1. Two week follow-up from 03/20/2015 Peripheral Pulse Rate : 89 /min Respiratory Rate : 16 /min Systolic Blood Pressure : 168 mmHg (>HHI) Diastolic Blood Pressure : 99 mmHg (>HHI) NIBP Mean : 122 mmHg BP Location : Right upper extremity Blood Pressure Cuff Size : Large SpO2 : 99 % Oxygen Therapy : Room air Height : 172 cm(Converted to: 5 ft 8 inch(es), 68 inch(es)) Actual Weight : 107 kg(Converted to: 235 lb 14 oz) Weight Source : Standing scale Dosing Weight Clinic : 107 kg Clinic BSA : 2.26 Body Mass Index : 36.17 kg/m2 JUANY DUNCAN [facility] - 04/17/2015 9:04 PUBLICATIONS EDITOR General Info Information Given By : Patient Preferred Communication Mode : Verbal, Written Languages : Tajik Is Patient Female and 13-50 no hysterectomy : No JUANY DUNCAN [facility] - 04/17/2015 9:04 PUBLICATIONS EDITOR Subjective Pain Symptoms : Yes JUANY DUNCAN [employer]IVE GAMES DEALER - 04/17/2015 9:04 PUBLICATIONS EDITOR Pain Scale Pain Scale Verbal 0-10 : Open JUANY DUNCAN [facility] - 04/17/2015 9:04 PUBLICATIONS EDITOR Pain Pain Assessment Grid Pain 1 Location : Other: joints JUANY DUNCAN [facility] - 04/17/2015 9:04 PUBLICATIONS EDITOR Dependent Habits Exposure to Tobacco Smoke : Other: patient had quit but is now smoking some now and then Smoking Status : Current every day smoker Tobacco 2A : Yes Tobacco Use/Currently Using : Yes Tobacco Use/Last 30 Days : Yes Tobacco Use/Last 12 months : Yes Type : Cigarettes: Less than 20 per day Tobacco Use/Advised to Quit : Yes JUANY DUNCAN [facility] - 04/17/2015 9:04 PUBLICATIONS EDITOR Caffeine Use Grid Caffeine Use : Current Type : Coffee, Tea Frequency : Daily Amount : 2 cup coffee/2 tea daily JUANY DUNCAN [facility] - 04/17/2015 9:04 PUBLICATIONS EDITOR Recreational Drug Use Grid Drug Use : None JUANY DUNCAN [facility] - 04/17/2015 9:04 PUBLICATIONS EDITOR Source: [facility] POWERCHART Document Id: [id number] PUBLICATIONS EDITOR!49 ICATIONS EDITOR documented in this encounter Plan of Treatment Upcoming Encounters Date Type Specialty Care Team Description 04/12/2022 Office Visit Cardiovascular Disease Simone Gooden AP RN, C.N.P. [address] [place] [phone] (Wo rk) documented as of this encounter Visit Diagnoses Not on filedocumented in this encounter Additional Health Concerns Assessment Noted Time PHQ-9 Depression Total Score: 17 01/24/2015 11:26 AM C DT documented as of this encounter
--- OUTSIDE RECORDS SUMMARY | 2022-03-29 07:55 | XMS_ITS | Encounter Summary ---
:1950 Author Organization [facility] Address [address] [place] [address] Care Team Providers Name Role Phone Unavailable Primary Care Provider Unavailable Encounter Details Date Type Department Care Team Description 06/15/2015 Hospital Encounter HX [facility] Riley Sanchez M.D. 15[address] [facility], [facility] [address] [phone] Social History Tobacco Use Types Packs/Day [...] How often do you attend yazdanism or yazdanism services? 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 - 06/22/2015 9:34 PM CST Custom Result Letter 22 June 2015 SEVEN SALAZAR [address] [facility] [address] [place] [id number] Dear SEVEN SALAZAR, Your tests for electrolytes, glucose, kidney function, thyroid and blood count are OK. Sed rate(Testfor inflammation) is slightly high. Please follow up with us as we discussed during your visit or sooner if you have any concerns. If you have questions or concerns, please do not hesitate to call our office. Result Name Current Result Normal Range Sodium Lvl (mmol/L) 140 06/15/2015 135 - 145 Potassium Lvl (mmol/L) 4.6 06/15/2015 3.6 - 5.2 Chloride (mmol/L) (L) 97 06/15/2015 98 - 107 CO2 (mmol/L) (H) 32 06/15/2015 22 - 29 Glucose Lvl (mg/dL) 87 06/15/2015 70 - 139 Creatinine (mg/dL) 0.9 06/15/2015 0.8 - 1.3 EGFR (MDRD) (mL/min/1.73m2) >60 06/15/2015 >=60 - BUN (mg/dL) 17 06/15/2015 8 - 24 Calcium Lvl (mg/dL) 10.1 06/15/2015 8.8 - 10.3 TSH (mIU/L) 0.98 06/15/2015 0.27 - 4.20 Hgb (g/dL) 14.8 06/15/2015 13.5 - 17.5 Hct (%) 46.3 06/15/2015 38.8 - 50.0 WBC (x10(9)/L) 10.3 06/15/2015 3.5 - 10.5 Platelet (x10(9)/L) 282 06/15/2015 150 - 450 Sed Rate (mm/hr) (H) 27 06/15/2015 0 - 22 Sincerely, RILEY SANCHEZ [address] [facility] [place] [address] Electronic Signature Electronically Signed By: RILEY SANCHEZ MD On: 22 June 2015 This document has images extracted. Source: [facility] POWERCHART Document Id: [id number] Electronically signed by Rivka [facility] Correctional Maintenance Technician [id number] at 09/28/2016 9:26 AM CDT documented in this encounter Plan of Treatment Upcoming Encounters Date Type Specialty Care Team Description 04/12/2022 Office Visit Cardiovascular Disease Simone Gooden AP RN, C.N.P. [address] [phone] (Wo rk) documented as of this encounter Procedures Procedure Name Priority Date/Time Associated Comments Diagnosis AUTOMATED Routine 06/15/2015 2:56 PM Results f or this DIFFERENTIAL, B AGRICULTURAL LOAN OFFICER procedure ar e in the results section. SEDIMENTATION RATE, B Routine 06/15/2015 2:56 PM Results for this AGRICULTURAL LOAN OFFICER procedure are i n the results section. CBC WITH DIFFERENTIAL, Routine 06/15/2015 2:56 PM Results for this B AGRICULTURAL LOAN OFFICER procedure are i n the results section. THYROID-STIMULATING Routine 06/15/2015 2:56 PM Re sults for this HORMONE-SENSITIVE AGRICULTURAL LOAN OFFICER procedure are in (S-TSH) the results section. BASIC METABOLIC PANEL, Routine 06/15/2015 2:56 PM Results for this S/P AGRICULTURAL LOAN OFFICER procedure are i n the results section. documented in this encounter Results (ABNORMAL) Automated Differential (06/15/2015 2:56 PM AGRICULTURAL LOAN OFFICER) [employer] Method Time Signature Absolute 7.23 (H) 1.70 - POWERCHART Neutrophils 7.00 109L Lymphocytes 1.88 0.90 - POWERCHART 2.90 X109L Monocytes 1.03 (H) 0.30 - POWERCHART 0.90 X109L Eosinophils 0.12 0.05 - POWERCHART 0.50 X109L Absolute 0.04 0.00 - POWERCHART Basophil 0.30 X109L Specimen Anatomical Collection Method Collection Time Receive d Time (Source) Location / / Volume Laterality Blood 06/15/2015 2:56 PM 6 2:56 AGRICULTURAL LOAN OFFICER PM AGRICULTURAL LOAN OFFICER Riley Sanchez M.D. LAB BLOOD ADD-ON Performing Organization Address City/State/ZIP Code Phon e Number POWERCHART (ABNORMAL) Sedimentation Rate (06/15/2015 2:56 PM AGRICULTURAL LOAN OFFICER) [facility] Method Time Signature Sedimentation 27 (H) 0 - 22 POWERCHART Rate, B MMHR Specimen (Source) Anatomical Collection Method Collection Time Re ceived Time Location / / Volume Laterality Blood 06/15/2015 2:56 PM AGRICULTURAL LOAN OFFICER Phunt Phyo M.D. LAB BLOOD ADD-ON Performing Organization Address City/State/ZIP Code Phon e Number POWERCHART CBC with Differential (06/15/2015 2:56 PM AGRICULTURAL LOAN OFFICER) athologist Signature Leukocytes 10.3 3.5 - 10.5 POWERCHART X109L Erythrocytes 5.24 4.32 - 5.72 POWERCHART [id number] Hemoglobin 14.8 13.5 - 17.5 POWERCHART GDL Hematocrit 46.3 38.8 - 50.0 POWERCHART MCV 88.4 81.0 - 95.0 POWERCHART FL Platelet Count 282 150 - 450 POWERCHART X109L HX RDW 15.2 11.8 - 15.6 POWERCHART Specimen (Source) Anatomical Collection Method Collection Time Re ceived Time Location / / Volume Laterality Blood 06/15/2015 2:56 PM AGRICULTURAL LOAN OFFICER Riley Sanchez M.D. LAB BLOOD ADD-ON Performing Organization Address City/[facility]/ZIP Code Phon e Number POWERCHART Thyroid-Stimulating Hormone-Sensitive (s-TSH) (06/15/2015 2:56 PM AGRICULTURAL LOAN OFFICER) athologist Signature TSH 0.98 0.27 - 4.20 POWERCHART (Thyrotropin) MIUL Specimen (Source) Anatomical Collection Method Collection Time Re ceived Time Location / / Volume Laterality Blood 06/15/2015 2:56 PM AGRICULTURAL LOAN OFFICER Riley Sanchez M.D. LAB BLOOD ADD-ON Performing Organization Address City/State/ZIP Code Phon e Number POWERCHART (ABNORMAL) BMP (Basic Metabolic Panel) (06/15/2015 2:56 PM AGRICULTURAL LOAN OFFICER) P athologist Signature Anion Gap 11 7 - 15 POWERCHART MMOLL BUN (Blood Urea 17 8 - 24 POWERCHART Nitrogen), S MGDL Chloride, S 97 (L) 98 - 107 POWERCHART MMOLL CO2 Total 32 (H) 22 - 29 POWERCHART MMOLL Creatinine 0.9 0.8 - 1.3 POWERCHART MGDL Glucose 87 70 - 139 POWERCHART MGDL Calcium, Total, 10.1 8.8 - 10.3 POWERCHART S MGDL Sodium, S 140 135 - 145 POWERCHART MMOLL Potassium, S 4.6 3.6 - 5.2 POWERCHART MMOLL HXeGFR (MDRD) >60 >=60 POWERCHART [id number] eGFR >60 >=60 POWERCHART Black/ [id number] Citizen Of [place] Specimen (Source) Anatomical Collection Method Collection Time Re ceived Time Location / / Volume Laterality Blood 06/15/2015 2:56 PM AGRICULTURAL LOAN OFFICER Riley Sanchez M.D. LAB BLOOD ADD-ON Performing Organization Address City/State/ZIP Code Phon e Number POWERCHART documented in this encounter Visit Diagnoses Not on filedocumented in this encounter Additional Health Concerns Assessment Noted Time PHQ-9 Depression Total Score: 17 01/24/2015 11:26 AM C DT documented as of this encounter
--- OUTSIDE RECORDS SUMMARY | 2022-03-29 07:55 | XMS_ITS | Encounter Summary ---
:1950 Author Organization [facility] Address [address] [place] [address] Care Team Providers Name Role Phone Unavailable Primary Care Provider Unavailable Encounter Details Date Type Department Care Team Description 03/06/2015 Hospital Encounter HX [facility] Tarik Camejo M.D. [address] [place], [place] [phone] (Wo rk) Social History [...] often do you attend jehovah's witness or uatsdin services? Never 04/16/2019 Do you [...] at Date Recorded Male 06/28/2019 8:47 AM ANALYTICS ASSOCIATE documented as of this encounter Last Filed Vital Signs Vital Sign Reading Time Taken Comments Blood Pressure - - Pulse - - Temperature - - Respiratory Rate - - Oxygen Saturation - - Inhaled Oxygen Concentration - - Weight - - Height 172 cm (5' 7.72) 03/06/2015 8:59 AM ANALYTICS ASSOCIATE Body Mass Index - - documented in this encounter Miscellaneous Notes Miscellaneous - Tamika Camejo M.D. - 03/07/2015 11:25 AM CST Results Notification Document Contains Addenda Addendum by ADILSON IRWIN LPN on 07 March 2015 12:52:38 ANALYTICS ASSOCIATE Results were mailed to patient. From: TAMIKA CAMEJO MD To: Urology Nurse; Sent: 03/07/2015 11:25:28 ANALYTICS ASSOCIATE ! Show up: 03/07/2015 11:25:28 ANALYTICS ASSOCIATE Subject: Results Notification Actions: Notify patient of results Reminder Comments: ng Results: Date Result Type Ind Result Name MBO Review Culture Urine Source: [facility] POWERCHART Document Id: [id number] Electronically signed by Conversion, [facility] Paraprofessional Aide Teacher [id number] at 09/30/2016 6:20 AM CDT documented in this encounter Plan of Treatment Upcoming Encounters Date Type Specialty Care Team Description 04/12/2022 Office Visit Cardiovascular Disease Simone Gooden AP RN, C.N.P. [address] [phone] (Wo rk) documented as of this encounter Procedures Procedure Name Priority Date/Time Associated Diagnosis Comme nts BACTERIAL CULTURE, Routine 03/06/2015 8:15 AM Res ults for this AEROBIC, URINE ANALYTICS ASSOCIATE procedure are in the results section. documented in this encounter Results Bacterial Culture, Aerobic, Urine (03/06/2015 8:15 AM ANALYTICS ASSOCIATE) Analysis Performed At [facility] Time Signature Bacterial POWERCHART Culture, Aerobic, Urine HXFinal No growth POWERCHART Specimen (Source) Anatomical Collection Method Collection Time Re ceived Time Location / / Volume Laterality Urine, First 03/06/2015 8:15 AM Voided ANALYTICS ASSOCIATE Tamika Camejo M.D. LAB MICROBIOLOGY - GENERAL O RDERABLES Performing Organization Address City/State/ZIP Code Phon e Number POWERCHART documented in this encounter Visit Diagnoses Not on filedocumented in this encounter Additional Health Concerns Assessment Noted Time PHQ-9 Depression Total Score: 17 01/24/2015 11:26 AM C DT documented as of this encounter
--- OUTSIDE RECORDS SUMMARY | 2022-03-29 07:55 | XMS_ITS | Encounter Summary ---
:1950 Author Organization [facility] Address [address] [place] [address] Care Team Providers Name Role Phone Unavailable Primary Care Provider Unavailable Encounter Details Date Type Department Care Team Description 03/06/2015 Hospital Encounter HX NO MAPPING Damian Stout M.D. [address] [place], [place] [address] (Wo rk) Social History Tobacco Use Types [...] How often do you attend sabianism or religion services? 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 [address] [phone] (Wo rk) documented as of this encounter Visit Diagnoses Not on filedocumented in this encounter Additional Health Concerns Assessment Noted Time PHQ-9 Depression Total Score: 17 01/24/2015 11:26 AM C DT documented as of this encounter
--- OUTSIDE RECORDS SUMMARY | 2022-03-29 07:55 | XMS_ITS | Encounter Summary ---
:1950 Author Organization [facility] Address [address] [place] [address] Care Team Providers Name Role Phone Unavailable Primary Care Provider Unavailable Encounter Details Date Type Department Care Team Description 03/20/2015 [facility] Riley Jimenez M.D. [address] [facility], [facility] [address] [phone] Social History Tobacco Use Types Packs/Day [...] How often do you attend congregational or jain services? Never 04/16/2019 Do you [...] Date Recorded Male 06/28/2019 8:47 AM INSURANCE ACCOUNT SPECIALIST documented as of this encounter Last Filed Vital Signs Vital Sign Reading Time Taken Comments Blood Pressure 138/81 03/20/2015 9:47 AM INSURANCE ACCOUNT SPECIALIST Pulse 92 03/20/2015 9:47 AM INSURANCE ACCOUNT SPECIALIST Temperature - - Respiratory Rate 16 03/20/2015 9:47 AM INSURANCE ACCOUNT SPECIALIST Oxygen Saturation - - Inhaled Oxygen Concentration - - Weight 101 kg (222 lb 10.6 oz) 03/20/2015 9:47 AM INSURANCE ACCOUNT SPECIALIST Height 172 cm (5' 7.72) 03/20/2015 9:47 AM INSURANCE ACCOUNT SPECIALIST Body Mass Index 34.14 03/20/2015 9:47 AM INSURANCE ACCOUNT SPECIALIST documented in this encounter Progress Notes Riley Sanchez M.D. - 03/20/2015 9:39 AM CST [id number] CHIEF COMPLAINT/REASON FOR VISIT Hospital followup. HISTORY OF PRESENT ILLNESS Mik is a pleasant 65-year-old male who presents to the clinic today for a hospital followup. He was hospitalized at [facility] on 03/06/2015 for severe back pain. Urine culturewas abnormal, treated with Cipro 500 mg for 10 days. He was also given Cary and Naproxen for pain relief. He was discharged on 03/08/2015. Abdomen/pelvis CT on 03/06/2015 was remarkable for: 1. Prostatomegaly. 2. Diffuse bladder wall thickening. Air identified in the nondependent portion the bladder. Correlate with recent catheterization or instrumentation. 3. Right L4 pars defect. 4. Grade 1 anterolisthesis of L4 over L5. His lumbar spine CT on 03/06/2015 showed: 1. No acute changes seen within the lumbar spine. 2. Degenerate changes of the lumbar spine. 3. Spinal stenosis at the L4-5 appears chronic due to annular disc protrusion posteriorly. 4. No evidence of metastatic disease. 5. 3.8 cm abnormality projecting from the upper pole of the right kidney, this could represent a benign finding, to exclude possible renal cell carcinoma, recommend IV contrast CT of the kidney or possible ultrasound. 6. Bladder gas, see discuss above. He has history of bladder cancer. It was recommended to schedule kidney ultrasound at [facility] for 3.8 cm mass from right kidney upper pole per CT of lumbar spine above. Per the patient, he had ultrasound on 03/17/2015. Patient was seen at [facility] ED on 03/11/2015 for bilateral leg pain and joint swelling. He was given Ketorolac injection and a prescription for prednisone 20 mg daily. Patient completed Prednisone on 03/16/2015. He noticed improvement in swelling with Prednisone. Prescription for Fqvewhxycn52 mg daily was renewed on 03/16. We discussed potential side effects from Prednisone, including butnot limited to, weight gain, elevated blood pressure, upset stomach, GI bleed, and bone loss. Today, he complains of pain and swelling in his feet, legs, knees, back, and neck. He had his last BCG was a week ago. He has some constant neck stiffness, but is improved. He has slight headache. He denies problems with his eyes, jaw pain, or pain over temporal arteries. His back pain is also improved today, but continues to be bothersome. He does take Pravastatin for hyperlipidemia, which can causemuscle aches and pains and weakness. He denies any hematuria. I reviewed and updated his medication list. We discussed potential side effects. Otherwise, there are no additional questions, concerns, or complaints. MEDICATIONS Reviewed and updated as per the EHR on 03/20/2015. ALLERGIES Reviewed and updated as per the EHR on 03/20/2015. SYSTEMS REVIEW Please see HPI for pertinent positives, otherwise rest of ROS negative. PAST MEDICAL/SURGICAL HISTORY Reviewed and updated as per the EHR on 03/20/2015. PREVENTIVE SERVICES Reviewed and updated as per the EHR on 03/20/2015. SOCIAL HISTORY Reviewed and updated as per the EHR on 03/20/2015. FAMILY HISTORY Reviewed and updated as per the EHR on 03/20/2015. VITAL SIGNS HEIGHT: 172 cm. WEIGHT: 101 kg. BMI: 34.14 kg/m2. TEMP: 37.0 Deg C. PULSE: 92 /min. RESP: 16 /min. SYSTOLIC: 138 mmHg. DIASTOLIC: 81 mmHg. PHYSICAL EXAMINATION GENERAL: Patient is sitting. No distress. Able to talk without interruption. HEAD: No facial rash, asymmetry, or sinus tenderness. No tenderness over temporal arteries. EYES: PERRLA. EOMI. No pallor, icterus, or [...] respiratory effort. Clear to auscultation. Normal percussion. SPINE: No scoliosis or kyphosis. No spinous tenderness or mass. JOINTS: No joint swelling or deformity. No decreased range of motion. He has tenderness over bilateral knee joints. EXTREMITIES: No clubbing, cyanosis, edema, infection, or calf tenderness. There is tenderness in bilateral thighs. He has puffiness on dorsum of feet. NEURO: Grossly nonfocal exam. IMPRESSION/REPORT/PLAN 1. Arthralgia, myalgia with history of polymyalgia rheumatica. It could be multifactorial, includingBCG therapy, Pravastatin, and recurrence polymyalgia rheumatica. We will stop Pravastatin, which cancause muscle aches and pains and weakness. Pravastatin was added to his allergy list. He was advisedto drink enough fluids, like water and cranberry juice. He can take over the counter Co- Q10 200 mg daily. We will check blood tests below. He feels better with Prednisone. We discussed side effects. Hewill continue Prednisone 20 mg daily in the morning. Prescription was filled today. There were no symptoms and signs suggestive for giant cell arteritis. 2. Hyperlipidemia. We will stop Pravastatin for the time being. He will take Co- Q10. Patient was advised to continue low cholesterol, low fat diet and regular exercise. Need to check fasting lipid profile again in 04/2015. 3. Right kidney mass per lumbar spine CT on 03/06/2015. He doesnt have symptoms. Patient has historyof bladder cancer. Need to check kidney ultrasound result from 03/17/2015 at [facility]. 4. Influenza immunization. We will hold flu shot for the time being and reevaluate in 2 weeks. Todays studies: BMP, CBC, CK, and Sed rate. Patient will be notified with results and recommendations. The patient will return to the clinic in 2 weeks for followup. This document serves as a record of services personally performed by Dr. Riley Sanchez. It was created on their behalf by Juan Ramos, a trained manager medical affairs. The creation of this record is based on the scribe's personal observations and the provider's statements to them. This document has been checked and approved by the attending provider. Riley Sanchez M.D./arti Electronically Signed By: RILEY SANCHEZ MD On: 03/20/2015 11:14 AM Modified by and Electronically Signed by: RILEY SANCHEZ MD On: 03/20/2015 11:14 AM Source: [facility] [id number] Document Id: [id number] RANCE ACCOUNT SPECIALIST documented in this encounter Miscellaneous Notes Miscellaneous - Riley Sanchez M.D. - 04/08/2015 9:19 AM CST Results Notification Document Contains Addenda Addendum by JUANY DUNCAN LPN on 10 April 2015 14:16:14 INSURANCE ACCOUNT SPECIALIST Patient notified of results and Dr. Sanchez's recommendations. Addendum by JUANY DUNCAN LPN on 10 April 2015 09:12:26 INSURANCE ACCOUNT SPECIALIST Left message for patient to return my call. From: RILEY SANCHEZ MD To: JOSE Sanchez Nurse; Sent: 04/08/2015 09:19:13 INSURANCE ACCOUNT SPECIALIST Show up: 04/08/2015 09:19:00 INSURANCE ACCOUNT SPECIALIST Subject: Results Notification Actions: Notify patient of results, Notify Patient of Future Order Please call him with following: Your tests for electrolytes, kidney function and muscle enzyme are normal. WBC(White Blood Cell) is high due to Prednisone. Sed rate(Test for inflammation) is high, which is related to polymyalgia rheumatica. Please continue current dose of Prednisone. We need to recheck blood test on 04/17/2015. Order is in EHR. Results: Date Result Name Ind Value Ref Range 03/20/2015 10:44 Sodium Lvl 135 mmol/L (135 - 145) 03/20/2015 10:44 Potassium Lvl 5.2 mmol/L (3.6 - 5.2) 03/20/2015 10:44 Chloride (L) 96 mmol/L (98 - 107) 03/20/2015 10:44 CO2 (H) 30 mmol/L (22 - 29) 03/20/2015 10:44 Glucose Lvl 106 mg/dL (70 - 139) 03/20/2015 10:44 Creatinine 0.9 mg/dL (0.8 - 1.3) 03/20/2015 10:44 EGFR (MDRD) >60 mL/min/1.73m2 (>=60 - ) 03/20/2015 10:44 EGFR (MDRD) >60 mL/min/1.73m2 (>=60 - ) 03/20/2015 10:44 BUN (H) 33 mg/dL (8 - 24) 03/20/2015 10:44 Calcium Lvl 10.3 mg/dL (8.8 - 10.3) 03/20/2015 10:44 CK (L) 37 IU/L (52 - 336) 03/20/2015 10:44 Hgb 13.7 g/dL (13.5 - 17.5) 03/20/2015 10:44 Hct 43.1 % (38.8 - 50.0) 03/20/2015 10:44 WBC (H) 18.3 x10(9)/L (3.5 - 10.5) 03/20/2015 10:44 RBC 4.94 x10(12)/L (4.32 - 5.72) 03/20/2015 10:44 MCV 87.2 fL (81.0 - 95.0) 03/20/2015 10:44 RDW 14.4 % (11.8 - 15.6) 03/20/2015 10:44 Platelet (H) 591 x10(9)/L (150 - 450) 03/20/2015 10:44 Neutro Absolute (H) 14.48 10(9)/L (1.70 - 7.00) 03/20/2015 10:44 Lymph Absolute 2.58 x10(9)/L (0.90 - 2.90) 03/20/2015 10:44 Coffee Absolute (H) 1.23 x10(9)/L (0.30 - 0.90) 03/20/2015 10:44 Eos Absolute (L) 0.03 x10(9)/L (0.05 - 0.50) 03/20/2015 10:44 Baso Absolute 0.01 x10(9)/L (0.00 - 0.30) 03/20/2015 10:44 Sed Rate (H) 59 mm/hr (0 - 22) Source: [facility] POWERCHART Document Id: [id number] Electronically signed by Conversion, [facility] Belt Maker Helper [id number] at 09/30/2016 5:16 AM CDT Miscellaneous - Riley Sanchez M.D. - 04/08/2015 9:18 AM CST Custom Result Letter 08 April 2015 SEVEN SALAZAR [address] [facility] [address] [place] [id number] Dear SEVEN SALAZAR, Your tests for electrolytes, kidney function and muscle enzyme are normal. WBC(White Blood Cell) is high due to Prednisone. Sed rate(Test for inflammation) is high, which is related to polymyalgia rheumatica. Please continue current dose of Prednisone. We need to recheck blood test on 04/17/2015. Please follow up with us as we discussed during your visit or sooner if you have any concerns. If you have questions or concerns, please do not hesitate to call our office. Result Name Current Result Normal Range Sodium Lvl (mmol/L) 135 03/20/2015 135 - 145 Potassium Lvl (mmol/L) 5.2 03/20/2015 3.6 - 5.2 Chloride (mmol/L) (L) 96 03/20/2015 98 - 107 CO2 (mmol/L) (H) 30 03/20/2015 22 - 29 Glucose Lvl (mg/dL) 106 03/20/2015 70 - 139 Creatinine (mg/dL) 0.9 03/20/2015 0.8 - 1.3 EGFR (MDRD) (mL/min/1.73m2) >60 03/20/2015 >=60 - BUN (mg/dL) (H) 33 03/20/2015 8 - 24 Calcium Lvl (mg/dL) 10.3 03/20/2015 8.8 - 10.3 CK (IU/L) (L) 37 03/20/2015 52 - 336 Hgb (g/dL) 13.7 03/20/2015 13.5 - 17.5 Hct (%) 43.1 03/20/2015 38.8 - 50.0 WBC (x10(9)/L) (H) 18.3 03/20/2015 3.5 - 10.5 Platelet (x10(9)/L) (H) 591 03/20/2015 150 - 450 Sed Rate (mm/hr) (H) 59 03/20/2015 0 - 22 Sincerely, RILEY SANCHEZ [address] [facility] [place] [address] Electronic Signature Electronically Signed By: RILEY SANCHEZ MD On: 08 April 2015 This document has images extracted. Source: [facility] POWERCHART Document Id: [id number] Electronically signed by Conversion, [facility] Belt Maker Helper [id number] at 09/30/2016 5:16 AM CDT Riley Rangel M.D. - 03/20/2015 10:34 AM CST Kidney ultrasound report from [facility] Document Contains Addenda Addendum by JUANY DUNCAN LPN on 20 March 2015 10:58:24 INSURANCE ACCOUNT SPECIALIST Requested records from [facility] they will fax over records. From: RILEY SANCHEZ MD To: JOSE Sanchez Nurse; Sent: 03/20/2015 10:34:11 INSURANCE ACCOUNT SPECIALIST Subject: Kidney ultrasound report from [facility] We need Kidney ultrasound report from [facility], which was done last 03/17/2015. Source: [facility] POWERCHART Document Id: [id number] Electronically signed by Conversion, [facility] Belt Maker Helper [id number] at 09/30/2016 5:16 AM CDT Riley Rangel M.D. - 03/20/2015 10:30 AM CST Ambulatory Patient Summary [address] [id number] Visit Information Name: SEVEN SALAZAR [facility] Number: [id number] Current Date: 03/20/2015 10:30:45 Physicians Attending Provider: RILEY SANCHEZ MD Primary [...] breath / Wheezing use with spacer chamber HYDROcodone-acetaminophen (HYDROcodone-acetaminophen 5 mg-325 mg oral tablet) 1 Tablet(s), Oral, every 4 hours as needed for Pain No more than 4,000mg acetaminophen/24hrs lisinopril (lisinopril 40 mg oral tablet) 1 Tablet(s), Oral, once a day (in the morning) Misc Prescription (Misc Prescription) BCG infusions once weekly naproxen (naproxen 500 mg oral tablet) 1 Tablet(s), Oral, two times a day with meals predniSONE (predniSONE 20 mg oral tablet) 1 Tablet(s), Oral, once a day (in the morning) with food This is a CHANGE Routed to [facility] [address] [place] [address] ubiquinone (Co-Q10 200 mg oral capsule) 1 cap, Oral, once a day Stop Taking the Following Medications: pravastatin (pravastatin 40 mg oral tablet) Medication list as of 03-20-15 10:30 Attention: If you have any medications at [...] Electronically Signed By: RILEY SANCHEZ MD Signed On:20-MAR-2015 10:30:27 Your Allergies & Intolerances Substance Reaction Symptoms Category Comments pravastatin Myalgia Drug pravastatin Arthralgia Drug Wellbutrin Suicidal thoughts Drug Your Problem List Problem Status Onset [...] Active Mass Kidney, Right upper pole Active Your Upcoming Appointments Date Time Location Provider 04/10/2015 10:30 [facility] Jatinder Camejo MD 04/26/2015 08:30 [facility] 05/08/2015 10:15 [facility] Laura DEWEY, Riley Attention: Contact your local Clinic if further appointment detail needed. Arthralgia Arthralgia is the term for pain in or around the joint. It is not a disease but a symptom. This may involve one or more joints. Sometimes arthralgias move from joint to joint. There are many causes for joint pain. These include: ?? Injury ?? Osteoarthritis (from wearing out of the joint surface) ?? Rheumatoid arthritis (an autoimmune disease) ?? Gout (inflammation of the joint due to crystals in the joint fluid) ?? Infection inside the joint ?? Bursitis (inflammation of the fluid-filled sacs around the joint) ?? Lupus and other collagen-vascular disease Home Care: ?? Rest the involved joint(s) until your symptoms improve. ?? You may use acetaminophen (Tylenol) or ibuprofen (Motrin, Advil) to control pain, unless another pain medicine was prescribed. [NOTE: If you have chronic liver or kidney disease or ever had a stomach ulcer or GI bleeding, talk with your doctor before using these medicines.] Follow Up with your doctor or as advised by our staff. [NOTE: If you had an X-ray it will be reviewed by a specialist. You will be notified of any new findings that may affect your care.] Return Promptly or contact your doctor if any of the following occurs: ?? Pain increases ?? Pain moves to other joints ?? New rash appears ?? Fever of 100.4?F (38?C) or higher, or as directed by your healthcare provider ?? [id number] [facility], [address] [place] [address], [place] [address]. All rights reserved. This information is not intended as a substitute for professional medical care. Always follow your healthcare professional's instructions. Back Care Tips These are things you can do to prevent a recurrence of acute back pain and to reduce symptoms from chronic back pain: ?? Maintain a healthy weight. If you are overweight, losing weight will help most types of back pain. ?? Exercise is an important part of recovery from most types of back pain. The back is supported by the muscles behind and in front of the spine. This means both the back muscles and the abdominal muscles must be strengthened to provide better support for your spine. ?? Swimming and brisk walking are good overall exercises to improve your fitness level. ?? Practice safe lifting methods (below). ?? Practice good posture when sitting, standing and walking. Avoid prolonged sitting. This puts morestress on the lower back than standing or walking. ?? Wear quality shoes with sufficient arch support. Foot and ankle alignment can affect back symptoms. Women should avoid high heels. ?? Therapeutic massage can help relieve acute and chronic back pain. ?? During the first two days after an acute injury or flare-up of chronic back pain, apply an ice pack to the painful area for 20 minutes every 2-4 hours. This will reduce swelling and pain. Heat (hot shower, hot bath, or heating pad) works well for muscle spasm. You can start with ice, then switch toheat after two days. Some patients feel best alternating ice and heat treatments. Use the one methodthat feels the best to you. ?? You may use acetaminophen (Tylenol) or ibuprofen (Motrin, Advil) to control pain, unless another medicine was prescribed. [NOTE: If you have chronic liver or kidney disease or ever had a stomach ulcer or GI bleeding, talk with your doctor before using these medicines.] Lumbar Stretch Here is a simple stretching exercise that will help relax muscle spasm and keep your back more limber. If exercise makes your back pain worse, dont do it. ?? Lie on your back with your knees bent and both feet on the ground. ?? Slowly raise your left knee to your chest as you flatten your lower back against the floor. Hold for 5 seconds. ?? Relax and repeat the exercise with your right knee. ?? Do 10 of these exercises for each leg. Safe Lifting Method ?? Dont bend over at the waist to lift an object off the floor. Instead, bend your knees and hips rodolfo squat. ?? Keep your back and head upright. ?? Hold the object close to your body, directly in front of you. ?? Straighten your legs to lift the object. ?? Lower the object to the floor in the reverse fashion. ?? If you must slide something across the floor, push it. Posture Tips SITTING Sit in chairs with straight backs or low-back support. Keep your knees a little higher than your hips. If necessary, use a low stool to prop your feet on, so your feet are resting on a solid surface. When driving, sit up straight. Adjust the seat forward so you are not leaning toward the steering wheel. A small pillow or rolled towel behind your lower back may help if you are driving long distances. ardSTANDING When standing for long periods, shift most of your weight to one leg at a time. Alternate legs everyfew minutes. SLEEPING The best way to sleep is on your side with your knees bent. Put a low pillow under your head to support your neck in a neutral spine position. Avoid thick pillows that bend your neck to one side. Put apillow between your legs to further relax your lower back. If you sleep on your back, put pillows under your knees to support your legs in a slightly flexed position. Use a firm mattress. If your mattress sags, replace it, or use a 1/2-inch plywood board under the mattress to add support. Follow Up with your doctor or as directed by our staff. [NOTE: If X-rays, a CT scan or an MRI scan were taken, they will be reviewed by a radiologist. You will be notified of any new findings that may affect your care.] Return Promptly or contact your doctor if any of the following occur: ?? Pain becomes worse or spreads to your arms or legs ?? Weakness or numbness in one or both arms or legs ?? Loss of bowel or bladder control ?? Numbness in the groin area ?? [id number] [facility], [address] [place] [address], [place] [address]. All rights reserved. This information is not intended as a substitute for professional medical care. Always follow your healthcare professional's instructions. Consider Using Patient Online Services Patient Online [...] if you dont have one. Go to [employer]/onlineservices and click on Create Your Account. Then, follow the directions to complete the online form. Youll be asked for your [facility] number which you can find at the top of this document. Your Goals/Additional instructions: This document has images extracted. Please consider using [employer] for all your patient education needs. Source: [facility] POWERCHART Document Id: [id number] RANCE ACCOUNT SPECIALIST Miscellaneous - Riley Sanchez M.D. - 03/20/2015 10:30 AM CST Ambulatory Discharge Medication List [address] [id number] Visit Information Name: SEVEN SALAZAR [facility] Number: [id number] Visit Date: 03/20/2015 10:30:43 Attending Provider: RILEY SANCHEZ MD Primary Care [...] breath / Wheezing use with spacer chamber HYDROcodone-acetaminophen (HYDROcodone-acetaminophen 5 mg-325 mg oral tablet) 1 Tablet(s), Oral, every 4 hours as needed for Pain No more than 4,000mg acetaminophen/24hrs lisinopril (lisinopril 40 mg oral tablet) 1 Tablet(s), Oral, once a day (in the morning) Misc Prescription (Misc Prescription) BCG infusions once weekly naproxen (naproxen 500 mg oral tablet) 1 Tablet(s), Oral, two times a day with meals predniSONE (predniSONE 20 mg oral tablet) 1 Tablet(s), Oral, once a day (in the morning) with food This is a CHANGE Routed to 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 post hospital - knee, leg, and back pain - swelling in feet Temperature Core : 37.0 DegC(Converted to: 98.6 DegF) Peripheral Pulse Rate : 92 /min Respiratory Rate : 16 /min Systolic Blood Pressure : 138 mmHg Diastolic Blood Pressure : 81 mmHg NIBP Mean : 100 mmHg Height : 172 cm(Converted to: 5 ft 8 inch(es), 68 inch(es)) Actual Weight : 101 kg(Converted to: 222 lb 11 oz) Weight Source : Standing scale Dosing Weight Clinic : 101 kg Clinic BSA : 2.2 Body Mass Index : 34.14 kg/m2 JUANY DUNCANTAMIKO STATON - 03/20/2015 9:47 INSURANCE ACCOUNT SPECIALIST General Info Information Given By : Patient Preferred Communication Mode : Verbal, Written Languages : Maltese Is Patient Female and 13-50 no hysterectomy : No JOSE LUISAARON SheppardIJEMOA MANLEY LPN - 03/20/2015 9:47 INSURANCE ACCOUNT SPECIALIST Subjective Pain Symptoms : Yes JEANNETTEREGINOJUANY Sheppard SINDHU STATON 03/20/2015 9:47 INSURANCE ACCOUNT SPECIALIST Pain Scale Pain Scale Verbal 0-10 : Open JUANY DUNCAN SINDHU STATON - 03/20/2015 9:47 INSURANCE ACCOUNT SPECIALIST Pain Pain Assessment Grid Pain 1 Location : Other: all joints JUANY DUNCAN SINDHU STATON 03/20/2015 9:47 INSURANCE ACCOUNT SPECIALIST Dependent Habits Tobacco Use/Currently Using : Yes Tobacco Use/Advised to Quit : Yes Exposure to Tobacco Smoke : Other: patient had quit but is now smoking some now and then Smoking Status : Current every day smoker JUANY DUNCAN SINDHU STATON - 03/20/2015 9:47 INSURANCE ACCOUNT SPECIALIST Tobacco Use Grid Type : Cigarettes Cigarette Use Packs/Day : 0.5 JUANY DUNCANTAMIKO STATON 03/20/2015 9:47 INSURANCE ACCOUNT SPECIALIST Caffeine Use Grid Caffeine Use : Current Type : Coffee, Tea Frequency : Daily Amount : 2 cup coffee/2 tea daily JUANY DUNCANTAMIKO STATON 03/20/2015 9:47 INSURANCE ACCOUNT SPECIALIST Recreational Drug Use Grid Drug Use : None JEANNETTEREGINOJUANY Sheppard SINDHU STATON - 03/20/2015 9:47 INSURANCE ACCOUNT SPECIALIST Source: [employer] POWERCHART Document Id: [id number] INSURANCE ACCOUNT SPECIALIST!46 RANCE ACCOUNT SPECIALIST documented in this encounter Plan of Treatment Upcoming Encounters Date Type Specialty Care Team Description 04/12/2022 Office Visit Cardiovascular Disease Simone Gooden AP RN, C.N.P. [address] [place] [phone] (Wo rk) documented as of this encounter Procedures Procedure Name Priority Date/Time Associated Comments Diagnosis AUTOMATED Routine 03/20/2015 10:44 Results for this DIFFERENTIAL, B AM INSURANCE ACCOUNT SPECIALIST procedure ar e in the results section. SEDIMENTATION RATE, B Routine 03/20/2015 10:44 Re sults for this AM INSURANCE ACCOUNT SPECIALIST procedure are i n the results section. CBC WITH DIFFERENTIAL, Routine 03/20/2015 10:44 R esults for this B AM INSURANCE ACCOUNT SPECIALIST procedure are i n the results section. CREATINE KINASE (CK), Routine 03/20/2015 10:44 Re sults for this S AM INSURANCE ACCOUNT SPECIALIST procedure are i n the results section. BASIC METABOLIC PANEL, Routine 03/20/2015 10:44 R esults for this S/P AM INSURANCE ACCOUNT SPECIALIST procedure are i n the results section. documented in this encounter Results (ABNORMAL) Automated Differential (03/20/2015 10:44 AM INSURANCE ACCOUNT SPECIALIST) [facility] gist Method Time Signature Absolute 14.48 (H) 1.70 - POWERCHART Neutrophils 7.00 109L Lymphocytes 2.58 0.90 - POWERCHART 2.90 X109L Monocytes 1.23 (H) 0.30 - POWERCHART 0.90 X109L Eosinophils 0.03 (L) 0.05 - POWERCHART 0.50 X109L Absolute 0.01 0.00 - POWERCHART Basophil 0.30 X109L Specimen Anatomical Collection Method Collection Time Receive d Time (Source) Location / / Volume Laterality Blood 03/20/2015 10:44 03/20/2015 AM INSURANCE ACCOUNT SPECIALIST 10:44 AM INSURANCE ACCOUNT SPECIALIST Riley Sanchez M.D. LAB BLOOD ADD-ON Performing Organization Address City/State/ZIP Code Phon e Number POWERCHART (ABNORMAL) CBC with Differential (03/20/2015 10:44 AM INSURANCE ACCOUNT SPECIALIST) Analysis Performed At Patho logist Time Signature Leukocytes 18.3 (H) 3.5 - 10.5 POWERCHART X109L Erythrocytes 4.94 4.32 - POWERCHART 5.72 [id number] Hemoglobin 13.7 13.5 - POWERCHART 17.5 GDL Hematocrit 43.1 38.8 - POWERCHART 50.0 MCV 87.2 81.0 - POWERCHART 95.0 FL HX RDW 14.4 11.8 - POWERCHART 15.6 Platelet Count 591 (H) 150 - 450 POWERCHART X109L Specimen (Source) Anatomical Collection Method Collection Time Re ceived Time Location / / Volume Laterality Blood 03/20/2015 10:44 AM INSURANCE ACCOUNT SPECIALIST Phunt Phyo M.D. LAB BLOOD ADD-ON Performing Organization Address City/State/ZIP Code Phon e Number POWERCHART (ABNORMAL) Sedimentation Rate (03/20/2015 10:44 AM INSURANCE ACCOUNT SPECIALIST) Patholo gist Method Time Signature Sedimentation 59 (H) 0 - 22 POWERCHART Rate, B MMHR Specimen (Source) Anatomical Collection Method Collection Time Re ceived Time Location / / Volume Laterality Blood 03/20/2015 10:44 AM INSURANCE ACCOUNT SPECIALIST Phpatrick Phyo M.D. LAB BLOOD ADD-ON Performing Organization Address City/State/ZIP Code Phon e Number POWERCHART (ABNORMAL) CK (Creatine Kinase) (03/20/2015 10:44 AM INSURANCE ACCOUNT SPECIALIST) P athologist Signature Creatine Kinase 37 (L) 52 - 336 POWERCHART (CK), S IUL Specimen (Source) Anatomical Collection Method Collection Time Re ceived Time Location / / Volume Laterality Blood 03/20/2015 10:44 AM INSURANCE ACCOUNT SPECIALIST Phunt Phyo M.D. LAB BLOOD ADD-ON Performing Organization Address City/State/ZIP Code Phon e Number POWERCHART (ABNORMAL) BMP (Basic Metabolic Panel) (03/20/2015 10:44 AM INSURANCE ACCOUNT SPECIALIST) P athologist Signature BUN (Blood Urea 33 (H) 8 - 24 POWERCHART Nitrogen), S MGDL Chloride, S 96 (L) 98 - 107 POWERCHART MMOLL CO2 Total 30 (H) 22 - 29 POWERCHART MMOLL Creatinine 0.9 0.8 - 1.3 POWERCHART MGDL Glucose 106 70 - 139 POWERCHART MGDL Calcium, Total, 10.3 8.8 - 10.3 POWERCHART S MGDL Sodium, S 135 135 - 145 POWERCHART MMOLL Potassium, S 5.2 3.6 - 5.2 POWERCHART MMOLL HXeGFR (MDRD) >60 >=60 POWERCHART [id number] eGFR >60 >=60 POWERCHART Black/ [id number] Jamaican Specimen (Source) Anatomical Collection Method Collection Time Re ceived Time Location / / Volume Laterality Blood 03/20/2015 10:44 AM INSURANCE ACCOUNT SPECIALIST Riley Sanchez M.D. LAB BLOOD ADD-ON Performing Organization Address City/State/ZIP Code Phon e Number POWERCHART documented in this encounter Visit Diagnoses Not on filedocumented in this encounter Additional Health Concerns Assessment Noted Time PHQ-9 Depression Total Score: 17 01/24/2015 11:26 AM C DT documented as of this encounter
--- OUTSIDE RECORDS SUMMARY | 2022-03-29 07:55 | XMS_ITS | Encounter Summary ---
:1950 Author Organization [facility] Address [address] [place] [address] Care Team Providers Name Role Phone Unavailable Primary Care Provider Unavailable Encounter Details Date Type Department Care Team Description 06/19/2015 Hospital Encounter HX NO MAPPING Darlene Camejo M.D. [address] [place], [place] [phone] (Wo rk) Social History [...] often do you attend roman catholic or presybeterian services? 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 Coded By: LEONEL LORENZANA Date Saved: 06/28/2015 02:02 pm [facility] Document Id: [id number] documented in this encounter Plan of Treatment Upcoming Encounters Date Type Specialty Care Team Description 04/12/2022 Office Visit Cardiovascular Disease Simone Gooden AP RN, C.N.P. [address] [phone] (Wo rk) documented as of this encounter Visit Diagnoses Not on filedocumented in this encounter Additional Health Concerns Assessment Noted Time PHQ-9 Depression Total Score: 17 01/24/2015 11:26 AM C DT documented as of this encounter
--- OUTSIDE RECORDS SUMMARY | 2022-03-29 07:55 | XMS_ITS | Encounter Summary ---
:1950 Author Organization [facility] Address [address] [place] [address] Care Team Providers Name Role Phone Unavailable Primary Care Provider Unavailable Encounter Details Date Type Department Care Team Description 04/26/2015 Hospital Encounter HX [facility] Leta Sanchez M.D. [address] [facility], [facility] [address] [place] [phone] Social History Tobacco Use Types Packs/Day [...] How often do you attend methodist or mandaeism services? 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 - 04/27/2015 12:53 PM CST Results Notification Document Contains Addenda Addendum by CHUCKY DUNCAN LPN on 02 May 2015 11:13:47 LIQUID WASTE TREATMENT PLANT OPERATOR Patient notified of results. Addendum by CHUCKY DUNCAN LPN on 02 May 2015 08:29:31 LIQUID WASTE TREATMENT PLANT OPERATOR Left message for patient to return my call. Addendum by KEYUR ALANIZ LPN on 27 April 2015 13:22:42 LIQUID WASTE TREATMENT PLANT OPERATOR Attemped to call patient no answer will try again later From: ISAK GEORGE MD [facility]; Sent: 04/27/2015 12:53:00 LIQUID WASTE TREATMENT PLANT OPERATOR ! Show up: 04/27/2015 12:53:00 LIQUID WASTE TREATMENT PLANT OPERATOR Subject: Results Notification Actions: Notify patient of results Reminder Comments: stable, seeing you in May Results: Date Result Name Ind Value Ref Range 04/26/2015 08:20 Sodium Lvl 140 mmol/L (135 - 145) 04/26/2015 08:20 Potassium Lvl 4.6 mmol/L (3.6 - 5.2) 04/26/2015 08:20 Chloride (L) 96 mmol/L (98 - 107) 04/26/2015 08:20 CO2 (H) 32 mmol/L (22 - 29) 04/26/2015 08:20 AGAP 12 mmol/L (7 - 15) 04/26/2015 08:20 Glucose Fasting 76 mg/dL (70 - 99) 04/26/2015 08:20 Creatinine 0.9 mg/dL (0.8 - 1.3) 04/26/2015 08:20 EGFR (MDRD) >60 mL/min/1.73m2 (>=60 - ) 04/26/2015 08:20 EGFR (MDRD) >60 mL/min/1.73m2 (>=60 - ) 04/26/2015 08:20 BUN 19 mg/dL (8 - 24) 04/26/2015 08:20 Calcium Lvl 10.2 mg/dL (8.8 - 10.3) 04/26/2015 08:20 AST 19 unit/L (8 - 48) 04/26/2015 08:20 ALT 17 unit/L (7 - 55) 04/26/2015 08:20 Cholesterol 162 mg/dL ( - <=199) 04/26/2015 08:20 Trig 78 mg/dL ( - <=149) 04/26/2015 08:20 HDL 78 mg/dL (>=40 - ) 04/26/2015 08:20 LDL Calculated 68 mg/dL ( - <=129) 04/26/2015 08:20 Chol/HDL Ratio 2.08 04/26/2015 08:20 LDL/HDL 1 04/26/2015 08:20 CK 82 IU/L (52 - 336) Source: [facility] POWERCHART Document Id: [id number] Electronically signed by Conversion, [facility] Neonatal Nurse Practitioner [id number] at 09/30/2016 8:27 AM CDT documented in this encounter Plan of Treatment Upcoming Encounters Date Type Specialty Care Team Description 04/12/2022 Office Visit Cardiovascular Disease Simone Gooden AP RN, C.N.P. [address] [phone] (Wo rk) documented as of this encounter Procedures Procedure Name Priority Date/Time Associated Comments Diagnosis LIPID PANEL, S Routine 04/26/2015 8:20 Results fo r this AM LIQUID WASTE TREATMENT PLANT OPERATOR procedure are i n the results section. ALANINE AMINOTRANSFERASE Routine 04/26/2015 8:20 Results for this (ALT), S/P AM LIQUID WASTE TREATMENT PLANT OPERATOR procedure are i n the results section. ASPARTATE Routine 04/26/2015 8:20 Results for this AMINOTRANSFERASE (AST), AM LIQUID WASTE TREATMENT PLANT OPERATOR proc edure are in S/P the results section. CREATINE KINASE (CK), S Routine 04/26/2015 8:20 R esults for this AM LIQUID WASTE TREATMENT PLANT OPERATOR procedure are i n the results section. BASIC METABOLIC PANEL, Routine 04/26/2015 8:20 Re sults for this S/P AM LIQUID WASTE TREATMENT PLANT OPERATOR procedure are i n the results section. documented in this encounter Results Lipid Panel (04/26/2015 8:20 AM LIQUID WASTE TREATMENT PLANT OPERATOR) P athologist Signature Calculated LDL 68 <=129 MGDL POWERCHART Comment: 2013 National Lipid Association recommen dations for LDL-C in adults ages 18 and up: Desirable <100 mg/dL Above desirable 100-129 mg/dL Borderline high 130-159 mg/dL High 160-189 mg/dL Very High 190 mg/dL 2014 National Lipid Association recommen dations for LDL-C in children ages 2 to 17. Acceptable <110 mg/dL Borderline High 110-129mg/dL High 130 mg/dL LDL-C >190mg/dL: The markedly elevated LDL level is suggestive of a genetic condition such as familial hypercholesterolemia(FH) or familial defective apolipoprotein B-100 (FDB). Molecular genetic t esting for FH and FDB is available myles leon [facility]: FH/ADH Genetic Reflex [place] el (test ADHP). Acquired (non-genetic) causes of markedly increased LDL cholesterol include cholestatic liver disease due to the presence of LpX. If a genetic form of hypercholesterolemia is suspected, family studies including biochemical testing fo r lipids (total cholesterol,triglycerides, LDL cholesterol and HDL cholesterol) are recommended. ??Please contact the laboratory at or the on-line test catalog at [employer] for information about how to order these jero ts or to speak with a genetic counselor. Further interpretation would require clinical information. Total Cholesterol/HDL Ratio 2.08 PO WERCHART Cholesterol, Total 162 <=199 MGDL POWERCHART Comment: 2014 National Lipid Association recommen dations for Total Cholesterol in adults ages 18 and up: Desirable <200 mg/dL Borderline high 200-239 mg/dL High 240 mg/dL 2014 National Lipid Association recommen dations for Total Cholesterol in children ages 2 to 17. Acceptable <170 mg/dL Borderline High 170-199 mg/dL High 200 mg/dL HX HDL 78 >=40 MGDL POWERCHART Comment: 2014 National Lipid Association recommen dations for HDL-C in adults ages 18 and up: Low <40 mg/dL (Men) Low <50 mg/dL (Women) 2014 National Lipid Association recommen dations for HDL-C in children ages 2 to 17. Low <40 mg/dL Borderline Low 40-45 mg/dL Acceptable >45 mg/dL Triglycerides 78 <=149 MGDL POWERCHART Comment: 2014 National Lipid Association recommen dations for Triglycerides in adults ages 18 and up: Normal <150 mg/dL Borderline High 150-199 mg/dL High 200-499 mg/dL Very High 500 mg/dL 2014 National Lipid Association recommen dations for Triglycerides in children ages 2 to 9. Acceptable <75 mg/dL Borderline High 75-99 mg/dL High 100 mg/dL 2014 National Lipid Association recommen dations for Triglycerides in children ages 10 to 17. Acceptable <90 mg/dL Borderline High 90-129 mg/dL High 130 mg/dL Trigs >400mg/dL: Triglycerides >400 mg/ dL. Calculated LDL cholesterol is not valid. Non-HDL cholesterol may be used for risk assessment when triglycerides are >400mg/dL. HXLDL/HDL 1 POWERCHART Specimen (Source) Anatomical Collection Method Collection Time Re ceived Time Location / / Volume Laterality Blood 04/26/2015 8:20 AM LIQUID WASTE TREATMENT PLANT OPERATOR Leta Sanchez M.D. LAB BLOOD ADD-ON Performing Organization Address City/State/ZIP Code Phon e Number POWERCHART CK (Creatine Kinase) (04/26/2015 8:20 AM LIQUID WASTE TREATMENT PLANT OPERATOR) P athologist Signature Creatine Kinase 82 52 - 336 POWERCHART (CK), S IUL Specimen (Source) Anatomical Collection Method Collection Time Re ceived Time Location / / Volume Laterality Blood 04/26/2015 8:20 AM LIQUID WASTE TREATMENT PLANT OPERATOR Leta Sanchez M.D. LAB BLOOD ADD-ON Performing Organization Address [facility]/ZIP Code Phon e Number POWERCHART ALT (Alanine Aminotransferase) (04/26/2015 8:20 AM LIQUID WASTE TREATMENT PLANT OPERATOR) P athologist Signature Alanine 17 7 - 55 POWERCHART Amniotransferas UNITL e, LD Specimen (Source) Anatomical Collection Method Collection Time Re ceived Time Location / / Volume Laterality Blood 04/26/2015 8:20 AM LIQUID WASTE TREATMENT PLANT OPERATOR Leta Sanchez M.D. LAB BLOOD ADD-ON Performing Organization Address City/[facility]/ZIP Code Phon e Number POWERCHART AST (Aspartate Aminotransferase) (04/26/2015 8:20 AM LIQUID WASTE TREATMENT PLANT OPERATOR) Patholo gist Method Time Signature Aspartate 19 8 - 48 POWERCHART Aminotransferase UNITL (AST), S Specimen (Source) Anatomical Collection Method Collection Time Re ceived Time Location / / Volume Laterality Blood 04/26/2015 8:20 AM LIQUID WASTE TREATMENT PLANT OPERATOR Leta Sanchez M.D. LAB BLOOD ADD-ON Performing Organization Address City/State/ZIP Code Phon e Number POWERCHART (ABNORMAL) BMP (Basic Metabolic Panel) (04/26/2015 8:20 AM LIQUID WASTE TREATMENT PLANT OPERATOR) P athologist Signature Anion Gap 12 7 - 15 POWERCHART MMOLL BUN (Blood Urea 19 8 - 24 POWERCHART Nitrogen), S MGDL Chloride, S 96 (L) 98 - 107 POWERCHART MMOLL CO2 Total 32 (H) 22 - 29 POWERCHART MMOLL Creatinine 0.9 0.8 - 1.3 POWERCHART MGDL Glucose, 76 70 - 99 POWERCHART Fasting, S MGDL Calcium, Total, 10.2 8.8 - 10.3 POWERCHART S MGDL Sodium, S 140 135 - 145 POWERCHART MMOLL Potassium, S 4.6 3.6 - 5.2 POWERCHART MMOLL HXeGFR (MDRD) >60 >=60 POWERCHART [id number] eGFR >60 >=60 POWERCHART Black/ [id number] Salvadorean Specimen (Source) Anatomical Collection Method Collection Time Re ceived Time Location / / Volume Laterality Blood 04/26/2015 8:20 AM LIQUID WASTE TREATMENT PLANT OPERATOR Leta Sanchez M.D. LAB BLOOD ADD-ON Performing Organization Address City/State/ZIP Code Phon e Number POWERCHART documented in this encounter Visit Diagnoses Not on filedocumented in this encounter Additional Health Concerns Assessment Noted Time PHQ-9 Depression Total Score: 17 01/24/2015 11:26 AM C DT documented as of this encounter
--- OUTSIDE RECORDS SUMMARY | 2022-03-29 07:55 | XMS_ITS | Encounter Summary ---
:1950 Author Organization [facility] Address [address] [place] [address] Care Team Providers Name Role Phone Unavailable Primary Care Provider Unavailable Encounter Details Date Type Department Care Team Description 06/19/2015 Hospital Encounter HX [facility] Jatinder Camejo M.D. [address] [place] [phone] (Wo rk) Social History Tobacco [...] How often do you attend moravian or buddhism services? 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 - 06/19/2015 9:44 AM CST Nurse Only Documentation Nurse Only Documentation Entered On: 06/19/2015 9:45 TRACK LAYING SUPERVISOR Performed On: 06/19/2015 9:44 TRACK LAYING SUPERVISOR by SHELLIE IRWIN LPN Nurse Only Documentation Nurse Only Visit Documentation : 2 of 3 BCG SHELLIE IRWIN LPN - 06/19/2015 9:44 TRACK LAYING SUPERVISOR Vitals/Ht/Wt Temperature Core : 36.8 DegC(Converted to: 98.2 DegF) Peripheral Pulse Rate : 88 /min Systolic Blood Pressure : 138 mmHg Diastolic Blood Pressure : 72 mmHg NIBP Mean : 94 mmHg BP Location : Left upper extremity Blood Pressure Cuff Size : Regular Height : 172 cm(Converted to: 5 ft 8 inch(es), 68 inch(es)) SHELLIE IRWIN LPN - 06/19/2015 9:44 TRACK LAYING SUPERVISOR [facility] Document Id: [id number] TRACK LAYING SUPERVISOR!12 K LAYING SUPERVISOR documented in this encounter Plan of Treatment Upcoming Encounters Date Type Specialty Care Team Description 04/12/2022 Office Visit Cardiovascular Disease Simone Gooden AP RN, C.N.P. [address] [phone] (Wo rk) documented as of this encounter Visit Diagnoses Not on filedocumented in this encounter Additional Health Concerns Assessment Noted Time PHQ-9 Depression Total Score: 17 01/24/2015 11:26 AM C DT documented as of this encounter
--- OUTSIDE RECORDS SUMMARY | 2022-03-29 07:55 | XMS_ITS | Encounter Summary ---
:1950 Author Organization [facility] Address [address] [place] [address] Care Team Providers Name Role Phone Unavailable Primary Care Provider Unavailable Encounter Details Date Type Department Care Team Description 05/29/2015 Hospital Encounter HX [facility] Tamika Camejo M.D. [address] [place] [phone] (Wo rk) Social History Tobacco [...] How often do you attend caodaism or yazidi services? Never 04/16/2019 Do you [...] at Date Recorded Male 06/28/2019 8:47 AM RN CCU documented as of this encounter Last Filed Vital Signs Vital Sign Reading Time Taken Comments Blood Pressure - - Pulse - - Temperature - - Respiratory Rate - - Oxygen Saturation - - Inhaled Oxygen Concentration - - Weight - - Height 172 cm (5' 7.72) 05/29/2015 8:53 AM RN CCU Body Mass Index - - documented in this encounter Miscellaneous Notes Miscellaneous - Prudencio Cannon L.P.N. - 05/29/2015 10:37 AM CST *General Message Document Contains Addenda Addendum by TAMIKA CAMEJO MD on 29 May 2015 11:11:45 RN CCU From: TAMIKA CAMEJO MD To: PRUDENCIO CANNON LPN; Sent: 05/29/2015 11:11:45 RN CCU Subject: RE: *General Message noted From: PRUDENCIO CANNON LPN To: TAMIKA CAMEJO MD; Sent: 05/29/2015 10:37:17 RN CCU Subject: *General Message Patient requested that BCG treatment scheduled today be cancelld . Patient states that he has not felt well for the past two weeks, head congestion and fever. Patient states that he thought he was better this morning but the longer he has been up the worse he feels. Patient states that he is going to see Dr Sanchez for evaluation. Source: [facility] POWERCHART Document Id: [id number] documented in this encounter Plan of Treatment Upcoming Encounters Date Type Specialty Care Team Description 04/12/2022 Office Visit Cardiovascular Disease Simone Gooden AP RN, C.N.P. [address] [phone] (Wo rk) documented as of this encounter Visit Diagnoses Not on filedocumented in this encounter Additional Health Concerns Assessment Noted Time PHQ-9 Depression Total Score: 17 01/24/2015 11:26 AM C DT documented as of this encounter
--- OUTSIDE RECORDS SUMMARY | 2022-03-29 07:55 | XMS_ITS | Encounter Summary ---
:1950 Author Organization [facility] Address [address] [place] [address] Care Team Providers Name Role Phone Unavailable Primary Care Provider Unavailable Encounter Details Date Type Department Care Team Description 06/05/2015 Hospital Encounter HX NO MAPPING Darlene Camejo M.D. [address] [place], [place] [phone] (Wo rk) Social History [...] How often do you attend quaker or shinto services? 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 STATUS: * Discharged to Home [...] terminology. Coded By: LEONEL LORENZANA Date Saved: 06/15/2015 02:17 pm Source: [facility] CENTERFind That File Document Id: [id number] documented in this encounter Plan of Treatment Upcoming Encounters Date Type Specialty Care Team Description 04/12/2022 Office Visit Cardiovascular Disease Simone Gooden AP RN, C.N.P. [address] [phone] (Wo rk) documented as of this encounter Visit Diagnoses Not on filedocumented in this encounter Additional Health Concerns Assessment Noted Time PHQ-9 Depression Total Score: 17 01/24/2015 11:26 AM C DT documented as of this encounter
--- OUTSIDE RECORDS SUMMARY | 2022-03-29 07:55 | XMS_ITS | Encounter Summary ---
:1950 Author Organization [facility] Address [address] [place] [address] Care Team Providers Name Role Phone Unavailable Primary Care Provider Unavailable Encounter Details Date Type Department Care Team Description 06/19/2015 Hospital Encounter HX [facility] LAB Tarik Camejo M.D. [address] [place], [place] [phone] (Wo rk) Social History [...] How often do you attend buddhism or mu-ism services? 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 - 06/20/2015 5:26 PM CST Results Notification Document Contains Addenda Addendum by ADILSON IRWIN LPN on 20 June 2015 17:45:43 VICE PRESIDENT PAYMENT Patient was informed of normal results. From: TAMIKA CAMEJO MD To: Urology Nurse; Sent: 06/20/2015 17:26:43 VICE PRESIDENT PAYMENT ! Show up: 06/20/2015 17:26:43 VICE PRESIDENT PAYMENT Subject: Results Notification Actions: Notify patient of results Reminder Comments: uc ng Results: Date Result Type Ind Result Name MBO Review Culture Urine Source: [facility] POWERCHART Document Id: [id number] Electronically signed by Conversion, [facility] Chain Hooker [id number] at 09/28/2016 9:26 AM CDT documented in this encounter Plan of Treatment Upcoming Encounters Date Type Specialty Care Team Description 04/12/2022 Office Visit Cardiovascular Disease Simone Gooden AP RN, C.N.P. [address] [phone] (Wo rk) documented as of this encounter Procedures Procedure Name Priority Date/Time Associated Comments Diagnosis BACTERIAL CULTURE, Routine 06/19/2015 8:35 AM Res ults for this AEROBIC, URINE VICE PRESIDENT PAYMENT procedure are in the results section. URINALYSIS WITH Routine 06/19/2015 8:34 AM Result s for this MICROSCOPIC VICE PRESIDENT PAYMENT procedure are i n the results section. documented in this encounter Results Bacterial Culture, Aerobic, Urine (06/19/2015 8:35 AM VICE PRESIDENT PAYMENT) Analysis Performed At Path logist Time Signature Bacterial POWERCHART Culture, Aerobic, Urine HXFinal No growth POWERCHART Specimen (Source) Anatomical Collection Method Collection Time Re ceived Time Location / / Volume Laterality Urine, First 06/19/2015 8:35 AM Voided VICE PRESIDENT PAYMENT Tamika Camejo M.D. LAB MICROBIOLOGY - GENERAL O RDERABLES Performing Organization Address City/State/ZIP Code Phon e Number POWERCHART (ABNORMAL) Urinalysis, Complete, Includes Microscopic (06/19/2015 8:34 AM VICE PRESIDENT PAYMENT) Patholo gist Method Time Signature Clarity Clear Clear POWERCHART HXUr Color Yellow Colorless POWERCHART Specific 1.020 POWERCHART [place], POCT, U pH, POCT, Urine 7.0 <5.0 POWERCHART Protein, Ur, Dip Negative Negative POWERCHART MGDL Glucose Negative Negative POWERCHART MGDL Ketones, QL(U) Negative Negative POWERCHART MGDL HXBILIRUBIN Negative Negative POWERCHART HXBLOOD Trace (A) Negative POWERCHART Leukocyte Negative Negative POWERCHART Esterase HXNITRITE Negative Negative POWERCHART Urobilinogen 0.2 0.2 MGDL POWERCHART HXUR WBC. Occ-3 None Seen POWERCHART HPF HXUR RBC. Occ-2 None Seen POWERCHART HPF Specimen (Source) Anatomical Collection Method Collection Time Re ceived Time Location / / Volume Laterality Urine, First 06/19/2015 8:34 AM Voided VICE PRESIDENT PAYMENT Tamika Camejo M.D. LAB URINE ORDERABLES Performing Organization Address City/State/ZIP Code Phon e Number POWERCHART documented in this encounter Visit Diagnoses Not on filedocumented in this encounter Additional Health Concerns Assessment Noted Time PHQ-9 Depression Total Score: 17 01/24/2015 11:26 AM C DT documented as of this encounter
--- OUTSIDE RECORDS SUMMARY | 2022-03-29 07:56 | XMS_ITS | Encounter Summary ---
:1950 Author Organization [facility] Address [address] [place] [address] Care Team Providers Name Role Phone Unavailable Primary Care Provider Unavailable Encounter Details Date Type Department Care Team Description 12/26/2014 Hospital Encounter HX NO MAPPING Darlene Camejo M.D. [address] [place], [place] [phone] (Wo rk) Social History [...] How often do you attend mosque or scientology services? 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 However, the narrative phrase printed from the coding software may appear abbreviated, or result in slightly different terminology. Coded By: LEONORA SANDOVAL Date Saved: 01/02/2015 02:49 pm [facility] Document Id: [id number] documented in this encounter Plan of Treatment Upcoming Encounters Date Type Specialty Care Team Description 04/12/2022 Office Visit Cardiovascular Disease Simone Gooden AP RN, C.N.P. [address] [phone] (Wo rk) documented as of this encounter Visit Diagnoses Not on filedocumented in this encounter Additional Health Concerns Assessment Noted Time PHQ-9 Depression Total Score: 3 01/17/2014 1:01 PM CDT documented as of this encounter
--- OUTSIDE RECORDS SUMMARY | 2022-03-29 07:56 | XMS_ITS | Encounter Summary ---
:1950 Author Organization [facility] Address [address] [place] [address] Care Team Providers Name Role Phone Unavailable Primary Care Provider Unavailable Encounter Details Date Type Department Care Team Description 02/13/2015 Hospital Encounter HX [facility] Jatinder Camejo M.D. [address] [place] [phone] (Wo rk) Social History Tobacco [...] How often do you attend mosque or sikhism services? 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 [address] [phone] (Wo rk) documented as of this encounter Visit Diagnoses Not on filedocumented in this encounter Additional Health Concerns Assessment Noted Time PHQ-9 Depression Total Score: 17 01/24/2015 11:26 AM C DT documented as of this encounter
--- OUTSIDE RECORDS SUMMARY | 2022-03-29 07:56 | XMS_ITS | Encounter Summary ---
:1950 Author Organization [facility] Address [address] [place] [address] Care Team Providers Name Role Phone Unavailable Primary Care Provider Unavailable Encounter Details Date Type Department Care Team Description 02/13/2015 Hospital Encounter [facility] Tarik Camejo M.D. [address] [place], [place] [phone] (Wo rk) Social History [...] How often do you attend gnosticism or sabianist services? 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 - 02/14/2015 2:14 PM CDT Results Notification Document Contains Addenda Addendum by ADILSON IRWIN LPN on 14 February 2015 15:52:24 CDT Patient notified of normal results. From: TAMIKA CAMEJO MD To: Urology Nurse; Sent: 02/14/2015 14:14:50 CDT ! Show up: 02/14/2015 14:14:50 CDT Subject: Results Notification Actions: Notify patient of results Reminder Comments: uc neg Results: Date Result Type Ind Result Name MBO Review Culture Urine Source: [facility] POWERCHART Document Id: [id number] Electronically signed by Conversion, [facility] Plastic Card Grader Cardroom [id number] at 09/30/2016 2:56 AM CDT documented in this encounter Plan of Treatment Upcoming Encounters Date Type Specialty Care Team Description 04/12/2022 Office Visit Cardiovascular Disease Simone Gooden AP RN, C.N.P. [address] [phone] (Wo rk) documented as of this encounter Procedures Procedure Name Priority Date/Time Associated Comments Diagnosis URINALYSIS WITH Routine 02/13/2015 9:36 AM Result s for this MICROSCOPIC CDT procedure are i n the results section. BACTERIAL CULTURE, Routine 02/13/2015 9:36 AM Res ults for this AEROBIC, URINE CDT procedure are in the results section. documented in this encounter Results (ABNORMAL) Urinalysis, Complete, Includes Microscopic (02/13/2015 9:36 AM CDT) [facility] Method Time Signature HXUr Color Yellow Colorless POWERCHART Clarity Clear Clear POWERCHART Glucose Negative Negative POWERCHART MGDL HXBILIRUBIN Negative Negative POWERCHART Ketones, QL(U) Negative Negative POWERCHART MGDL Specific 1.010 POWERCHART [place], POCT, U HXBLOOD Negative Negative POWERCHART pH, POCT, Urine 6.5 <5.0 POWERCHART Protein, Ur, Dip Negative Negative POWERCHART MGDL Urobilinogen 0.2 0.2 MGDL POWERCHART HXNITRITE Negative Negative POWERCHART Leukocyte Negative Negative POWERCHART Esterase HXUR WBC. Occ-3 None Seen POWERCHART HPF HXUR RBC. Occ-2 None Seen POWERCHART HPF Squamous Occ-3 (A) None Seen POWERCHART Epithelial HPF Specimen (Source) Anatomical Collection Method Collection Time Re ceived Time Location / / Volume Laterality Urine, First 02/13/2015 9:36 AM Voided CDT Tamika Camejo M.D. LAB URINE ORDERABLES Performing Organization Address City/State/ZIP Code Phon e Number POWERCHART Bacterial Culture, Aerobic, Urine (02/13/2015 9:36 AM CDT) [facility] Signature Bacterial POWERCHART Culture, Aerobic, Urine HXFinal No growth POWERCHART Specimen (Source) Anatomical Collection Method Collection Time Re ceived Time Location / / Volume Laterality Urine, First 02/13/2015 9:36 AM Voided CDT Tamika Camejo M.D. LAB MICROBIOLOGY - GENERAL O RDERABLES Performing Organization Address City/State/[facility] Code Phon e Number POWERCHART documented in this encounter Visit Diagnoses Not on filedocumented in this encounter Additional Health Concerns Assessment Noted Time PHQ-9 Depression Total Score: 17 01/24/2015 11:26 AM C DT documented as of this encounter
--- OUTSIDE RECORDS SUMMARY | 2022-03-29 07:56 | XMS_ITS | Encounter Summary ---
:1950 Author Organization [facility] Address [address] [place] [address] Care Team Providers Name Role Phone Unavailable Primary Care Provider Unavailable Encounter Details Date Type Department Care Team Description 01/30/2015 Hospital Encounter HX NO MAPPING Darlene Camejo M.D. [address] [place], [place] [phone] (Wo rk) Social History [...] How often do you attend rastafari or oriental orthodox services? 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 [address] [phone] (Wo rk) documented as of this encounter Visit Diagnoses Not on filedocumented in this encounter Additional Health Concerns Assessment Noted Time PHQ-9 Depression Total Score: 17 01/24/2015 11:26 AM C DT documented as of this encounter
--- OUTSIDE RECORDS SUMMARY | 2022-03-29 07:56 | XMS_ITS | Encounter Summary ---
:1950 Author Organization [facility] Address [address] [place] [address] Care Team Providers Name Role Phone Unavailable Primary Care Provider Unavailable Encounter Details Date Type Department Care Team Description 02/20/2015 Hospital Encounter HX NO MAPPING Darlene Camejo M.D. [address] [place], [place] [phone] (Wo rk) Social History [...] How often do you attend mu-ism or christianity services? 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 Coded By: LEONEL LORENZANA Date Saved: 03/01/2015 01:42 pm [facility] Document Id: [id number] documented in this encounter Plan of Treatment Upcoming Encounters Date Type Specialty Care Team Description 04/12/2022 Office Visit Cardiovascular Disease Simone Gooden AP RN, C.N.P. [address] [phone] (Wo rk) documented as of this encounter Visit Diagnoses Not on filedocumented in this encounter Additional Health Concerns Assessment Noted Time PHQ-9 Depression Total Score: 17 01/24/2015 11:26 AM C DT documented as of this encounter
--- OUTSIDE RECORDS SUMMARY | 2022-03-29 07:56 | XMS_ITS | Encounter Summary ---
:1950 Author Organization [facility] Address [address] [place] [address] Care Team Providers Name Role Phone Unavailable Primary Care Provider Unavailable Encounter Details Date Type Department Care Team Description 02/06/2015 Hospital Encounter HX [facility] FB Riley Jimenez M.D. [address] [facility], [place] [address] [phone] Social History Tobacco Use Types Packs/Day [...] How often do you attend rastafarian or adventist services? 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 - 02/06/2015 4:05 PM CDT [id number] CHIEF COMPLAINT/ REASON FOR VISIT Hospital followup. HISTORY OF PRESENT ILLNESS Mik is a pleasant 64-year-old male who presents to the clinic today for a hospital followup. He was seen at [facility] ED on 02/03/2015 for fever, headache, confusion, and suicidal and homicidal thoughts after starting Wellbutrin for smoking cessation. Wellbutrin was discontinued. EKG showed sinus rhythm, ventricular rate 90 BPM. His sodium was low (126), so Hydrochlorothiazide was stopped and Lisinopril was started. His WBC was high 14.3 on arrival; repeated WBC was 12.2 on02/04. Chest x-ray was normal on 02/03/2015, no evidence of infection. Head CT scan was normal on 02/03/2015. Lumbar puncture was normal. He was discharged the next day. He feels fine today. After taking Wellbutrin, he had headache, fever, and weird thoughts including suicidal and homicidal ideology. He no longer has these thoughts. He hasnt smoked for 8 days. Patient denies any loss of vision, double vision, speech impairment, jaw pain, or left or right sided weakness. He hasnt picked up prescription for Lisinopril, but has continued taking Lisinopril-Hydrochlorothiazide. His blood pressure is under control today. Patient has shortness of breath and productive cough with green phlegm for one week. He denies chestpain. He has wheezing, low grade fever, and slight headache. He denies any hematuria or dysuria. He doesnt use Tudorza inhaler. He uses Albuterol inhaler 2 puffs 3-5 times a day. I reviewed and updated his medication list. We discussed potential side effects. Otherwise, there are no additional questions, concerns, or complaints. MEDICATIONS Reviewed and updated as per the EHR on 02/06/2015. ALLERGIES Reviewed and updated as per the EHR on 02/06/2015. SYSTEMS REVIEW As per the history of present illness. All other systems are reviewed and are negative. PAST MEDICAL/ SURGICAL HISTORY Reviewed and updated as per the EHR on 02/06/2015. PREVENTIVE SERVICES Reviewed and updated as per the EHR on 02/06/2015. SOCIAL HISTORY Reviewed and updated as per the EHR on 02/06/2015. FAMILY HISTORY Reviewed and updated as per the EHR on 02/06/2015. VITAL SIGNS HEIGHT: 172 cm. WEIGHT: 98 kg. BMI: 33.13 kg/m2. TEMP: 37.4 Deg C. PULSE: 87 /min. O2SAT: 94 %. SYSTOLIC: 145 mmHg. DIASTOLIC: 82 mmHg. SR: 150/76 mmHg. PHYSICAL EXAMINATION GENERAL: Patient is sitting. [...] thrill. LUNGS: Normal respiratory effort. He has bilateral rhonchi at base of lungs, posteriorly and anteriorly. EXTREMITIES: No clubbing, cyanosis, edema, infection, or calf tenderness. MENTAL: Alert and oriented x 3. Normal mood and affect. NEURO: Grossly nonfocal exam. IMPRESSION/ REPORT/ PLAN 1. Confusion. It is resolved. I reviewed record from [facility]. All the workup done at [facility] was normal, including head CT and lumbar puncture. Probably it was related to Wellbutrin therapy. Wellbutrin was stopped. He is stable from a neurological standpoint. He was given work excuse from 02/02/2015 to 02/07/2015. He will return to work on 02/08/2015. 2. Leukocytosis. His white blood cell is just above normal while hospitalized. There is no evidence of infection clinically. We will monitor on Friday. 3. Hyponatremia. Patient is asymptomatic. It could be partly due to Hydrochlorothiazide therapy. We will stop Hydrochlorothiazide. Need to monitor electrolytes and renal function. 4. Chronic hypertension. Blood pressure is controlled. He is stable from a cardiac standpoint. Need to continue sodium controlled diet. He will stop Hydrochlorothiazide because of hyponatremia. He needs to [employer] Lisinopril prescription. Blood pressure goal is less than 140/90 mmHg. Need to continue c ardiovascular risk factors modification. 5. Acute exacerbation of chronic bronchitis with cough and dyspnea on exertion. He has bronchospasm and rhonchi. He is stable from respiratory s standpoint. There was no hypoxemia or tachypnea. We willtreat with Levaquin 500 mg by mouth daily for 7 days and Prednisone 50 mg by mouth daily with food for 7 days. I advised him to drink enough fluids. He can take over the counter Nyquil, Dayquil, or Robitussin. He uses Albuterol inhaler 2 puffs 3-5 times a day. He doesnt use Tudorza because of expense.He should contact me if there is no improvement or worsening of symptoms or develops side effects toprescription medication. The patient will return to the clinic on 02/10/2015 for followup with following tests: BMP and CBC. This document serves as a record of services personally performed by Dr. Riley Sanchez. It was created on their behalf by Juan Ramos, a trained medical billing associate. The creation of this record is based on the scribe's personal observations and the provider's statements to them. This document has been checked and approved by the attending provider. Riley Sanchez M.D./arti Electronically Signed By: RILEY SANCHEZ MD On: 02/11/2015 11:30 PM Modified by and Electronically Signed by: RILEY SANCHEZ MD On: 02/11/2015 11:30 PM Source: [facility] MHSDOLBEYNONRADSYS Document Id: [id number] documented in this encounter Miscellaneous Notes Miscellaneous - Riley Sanchez M.D. - 02/06/2015 5:16 PM CDT Ambulatory Patient Summary [address] [id number] Visit Information Name: SEVEN SALAZAR [facility] Number: [id number] Current Date: 02/06/2015 17:16:49 Physicians Attending Provider: RILEY SANCHEZ MD Primary [...] Take Indications/Special Instructions/Comments/Notes for Patient Medication Changes/Routing *aclidinium (Tudorza Pressair 400 mcg/inh inhalation powder) 1 puff(s), Inhalation, two times a day albuterol (albuterol CFC free 90 mcg/inh inhalation aerosol) 2 puff(s), Inhalation, every 4 hours asneeded for Shortness of breath / Wheezing use with spacer chamber levofloxacin (Levaquin 500 mg oral tablet) 1 Tablet(s), Oral, once a day x 7 day(s) New Routed to [address] [address] lisinopril (lisinopril 40 mg oral tablet) 1 Tablet(s), Oral, once a day pravastatin (pravastatin 40 mg oral tablet) 1 Tablet(s), Oral, once a day (at bedtime) predniSONE (predniSONE 50 mg oral tablet) 1 Tablet(s), Oral, once a day x 7 day(s) with food New Routed to [address] [address] * You have let us know that you are not taking this medication as listed. Please talk with your primary care provider or the health care provider who prescribed the medication as soon as possible. Stop Taking the Following Medications: buPROPion (Wellbutrin SR 150 mg/12 hours oral tablet, sustained release) lisinopril-hydrochlorothiazide (lisinopril-hydrochlorothiazide 20 mg-12.5 mg oral tablet) Medication list as of 02-06-15 17:16 Attention: If you have any medications at [...] Electronically Signed By: RILEY SANCHEZ MD Signed On:06-FEB-2015 17:16:33 Your Allergies & Intolerances Substance Reaction Symptoms Category Comments Wellbutrin Suicidal thoughts Drug Your Problem List [...] fold Active 04/30/2013 High Risk Medication Active Your Upcoming Appointments Date Time Location Provider 02/13/2015 10:00 [facility] 02/13/2015 10:30 [facility] Nurse 1 02/20/2015 10:00 [facility] 02/20/2015 10:30 [facility] U[facility] Nurse 1 02/23/2015 15:30 [facility] InternRiley Elizabeth MD 02/27/2015 10:00 [facility] 02/27/2015 10:30 [facility] U[facility] Nurse 1 04/10/2015 10:30 [facility] Jatinder Camejo MD 04/26/2015 08:30 [facility] Lab 05/08/2015 10:15 [facility] InternRiley Elizabeth MD Attention: Contact your local Clinic if [...] if you dont have one. Go to [email or web address] and click on Create Your Account. Then, follow the directions to complete the online form. Youll be asked for your [facility] number which you can find at the top of this document. Your Goals/Additional instructions: Source: [facility] POWERCHART Document Id: [id number] Miscellaneous - Riley Sanchez M.D. - 02/06/2015 5:16 PM CDT Ambulatory Discharge Medication List [address] [id number] Visit Information Name: SEVEN SALAZAR [facility] Number: [id number] Visit Date: 02/06/2015 17:16:47 Attending Provider: RILEY SANCHEZ MD Primary Care [...] Take Indications/Special Instructions/Comments/Notes for Patient Medication Changes/Routing *aclidinium (Tudorza Pressair 400 mcg/inh inhalation powder) 1 puff(s), Inhalation, two times a day albuterol (albuterol CFC free 90 mcg/inh inhalation aerosol) 2 puff(s), Inhalation, every 4 hours asneeded for Shortness of breath / Wheezing use with spacer chamber levofloxacin (Levaquin 500 mg oral tablet) 1 Tablet(s), Oral, once a day x 7 day(s) New Routed to [address] [address] lisinopril (lisinopril 40 mg oral tablet) 1 Tablet(s), Oral, once a day pravastatin (pravastatin 40 mg oral tablet) 1 Tablet(s), Oral, once a day (at bedtime) predniSONE (predniSONE 50 mg oral tablet) 1 Tablet(s), Oral, once a day x 7 day(s) with food New Routed to [address] [address] * You have let us know that you are not taking this medication as listed. Please talk with your primary care provider or the health care provider who prescribed the medication as soon as possible. Stop Taking the Following Medications: buPROPion (Wellbutrin SR 150 mg/12 hours oral tablet, sustained release) lisinopril-hydrochlorothiazide (lisinopril-hydrochlorothiazide 20 mg-12.5 mg oral tablet) Medication list as of 02-06-15 17:16 Attention: If you have any medications at [...] Electronically Signed By: RILEY SANCHEZ MD Signed On:06-FEB-2015 17:16:33 Additional Information: Source: [facility] POWERCHART Document Id: [id number] Jodicelljen - Riley Sanchez M.D. - 02/06/2015 5:14 PM CDT Work Excuse 06 February 2015 SEVEN [facility]AZAR [address] [id number] Dear SEVEN SALAZAR, You were examined in my office on: 02/06/2015 Reason for work excuse: Medical Illness ( X ) Yes ( _ ) No Injury ( _ ) Yes ( X ) No Is excused from all work: ( X ) Yes ( _ ) No Has work limitations: ( _ ) Yes ( _ ) No As follows: _ Limitations apply until: _ Follow-Up Appointment : ( _ ) Return to Work date: 02/08/2015. Notes: Work excuse from 02/02/2015 to 02/07/2015. Sincerely, RILEY SANCHEZ [address] [place] [address] Electronic Signature Electronically Signed By: RILEY SANCHEZ MD On: 06 February 2015 This document has images extracted. Source: [facility] [employer]Social Document Id: [id number] Electronically signed by Rivka [facility] Process Mold Technician [id number] at 09/30/2016 2:56 AM CDT Miscellaneous - Chucky Duncan, LBhaveshP.NBhavesh - 02/06/2015 4:17 PM CDT Ambulatory Vitals Height Weight Ambulatory Vitals Height Weight Entered On: 02/06/2015 16:19 CDT Performed On: 02/06/2015 16:17 CDT by CHUCKY DUNCAN LPN Vitals/Ht/Wt Peripheral Pulse Rate : 80 /min Systolic Blood Pressure : 150 mmHg (HI) Diastolic Blood Pressure : 76 mmHg NIBP Mean : 101 mmHg BP Location : Right upper extremity Blood Pressure Cuff Size : Large Height : 172 cm(Converted to: 5 ft 8 inch(es), 68 inch(es)) CHUCKY DUNCAN LPN - 02/06/2015 16:17 CDT Source: [facility] [employer] Document Id: [id number] CDT!9 Miscellaneous - Chucky Duncan L.P.N. - 02/06/2015 4:11 PM CDT Adult Nursing Aide Intake/History Adult Nursing Aide Intake/History Entered On: 02/06/2015 16:17 CDT Performed On: 02/06/2015 16:11 CDT by CHUCKY DUNCAN LPN Intake Chief Complaint : 1. Hospital Follow- up - possible reaction to Wellbutrin - caused suicidal thoughts 2. productive cough - green mucous, shortness of breath for one week Temperature Core : 37.4 DegC(Converted to: 99.3 DegF) Peripheral Pulse Rate : 87 /min Systolic Blood Pressure : 145 mmHg (HI) Diastolic Blood Pressure : 82 mmHg NIBP Mean : 103 mmHg BP Location : Right upper extremity Blood Pressure Cuff Size : Large SpO2 : 94 % Oxygen Therapy : Room air Height : 172 cm(Converted to: 5 ft 8 inch(es), 68 inch(es)) Actual Weight : 98 kg(Converted to: 216 lb 1 oz) Weight Source : Standing scale Dosing Weight Clinic : 98 kg Clinic BSA : 2.16 Body Mass Index : 33.13 kg/m2 CHUCKY DUNCAN LPN - 02/06/2015 16:11 CDT General Info Information Given By : Patient Preferred Communication Mode : Verbal, Written Languages : Filipino Is Patient Female and 13-50 no hysterectomy : No CHUCKY DUNCAN LPN - 02/06/2015 16:11 CDT Subjective Pain Symptoms : No CHUCKY DUNCAN LPN - 02/06/2015 16:11 CDT Dependent Habits Tobacco Use/Currently Using : No Tobacco Use/Last 12 months : Yes Exposure to Tobacco Smoke : Other: patient quit 8 days ago Smoking Status : Former smoker CHUCKY DUNCAN LPN - 02/06/2015 16:11 CDT Tobacco Use Grid Type : Cigarettes Cigarette Use Packs/Day : 0.5 CHUCKY DUNCAN LPN - 02/06/2015 16:11 CDT Caffeine Use Grid Caffeine Use : Current Type : Coffee, Tea Frequency : Daily Amount : 2 cup coffee/2 tea daily CHUCKY DUNCAN LPN - 02/06/2015 16:11 CDT Recreational Drug Use Grid Drug Use : None CHUCKY DUNCAN LPN - 02/06/2015 16:11 CDT [facility] Document Id: [id number] CDT!43 documented in this encounter Plan of Treatment [...]
--- OUTSIDE RECORDS SUMMARY | 2022-03-29 07:56 | XMS_ITS | Encounter Summary ---
:1950 Author Organization [facility] Address [address] [place] [address] Care Team Providers Name Role Phone Unavailable Primary Care Provider Unavailable Encounter Details Date Type Department Care Team Description 12/26/2014 Hospital Encounter HX [facility] Tamika Camejo M.D. 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 - 12/26/2014 10:21 AM CDT CYSTO CHIEF COMPLAINT / REASON FOR VISIT CYSTOSCOPY REPORT INDICATION History of bladder cancer. 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 He completed six weeks of induction immunotherapy with BCG. On his initial post-treatment cystoscopy, there were suspicious areas and he had another biopsy. There was no evidence of additional recurrence. He then went on maintenance for an additional three-week cycle. He developed some arthralgias related to the BCG and he has not had any further BCG. He denies any hematuria, dysuria, or any changes in his urination habits. INSTRUMENT Flexible cystoscope. ANESTHESIA 2% aqueous lidocaine [...] evidence of stones, or other foreign bodies. Probable early recurrence left lateral wall, area about 2-2.5 cm. COMMENTS The procedure was well tolerated by the patient. He was discharged from the office in satisfactory condition. Post-cystoscopy instructions were reviewed with him. IMPRESSION / REPORT / PLAN 1. History of bladder cancer; likely recurrence PLAN: Arrange for biopsy in the OR. Electronically Signed By: TAMIKA CAMEJO MD On: 12/26/2014 10:23 AM Source: [employer] Document Id: [id number] documented in this encounter Miscellaneous Notes Miscellaneous - Kyaw Crawford APRN, R.N. - 01/02/2015 1:13 PM CDT Work Excuse 02 January 2015 SEVEN SALAZAR [address] [facility] 2 [facility] [id number] Dear SEVEN SALAZAR, Kai underwent a procedure with Dr. Camejo on January 02, 2015 Reason for work excuse: Medical Illness ( X ) Yes ( _ ) No Injury ( _ ) Yes ( _ ) No Is excused from all work: ( X ) Yes ( _ ) No Return to Work date: January with no restrictions._ Notes: Sincerely, KYAW CRAWFORD [address] [place] [address] Electronic Signature Electronically Signed By: KYAW CRAWFORD CNP On: 02 January 2015 This document has images extracted. Source: [facility] POWERCHART Document Id: [id number] Miscellaneous - Kyaw Crawford APRN RCarmen - 01/02/2015 1:10 PM CDT Work Excuse 02 January 2015 SEVEN SALAZAR [address] [id number] Dear SEVEN SALAZAR, Kai had a procedure on January 02, [address] Camejo. Reason for work excuse: Medical Illness ( X ) Yes ( _ ) No Injury ( _ ) Yes ( _ ) No Is excused from all work: (X ) Yes ( _ ) No Return to Work date: You may return to work on January with no restrictions. Please call if you have any issues. Thank you Sincerely, KYAW CRAWFORD [address] [place] [address] Electronic Signature Electronically Signed By: KYAW CRAWFORD CNP On: 02 January 2015 This document has images extracted. Source: [facility] [employer] Document Id: [id number] Miscellaneous - Kyaw Crawford APRN RBhaveshNBhavesh - 12/27/2014 12:01 PM CDT Results Notification Document Contains Addenda Addendum by MONI HUTCHISON CMA on 28 December 2014 15:17:08 CDT noted. From: KYAW CRAWFORD [place] [employer] To: Urology Nurse; Sent: 12/27/2014 12:01:37 CDT ! Show up: 12/27/2014 12:01:37 CDT Subject: Results Notification Actions: Notify patient of results Reminder Comments: Urine cyto negative, waiting for FISH results Results: Date Result Type Result Name 12/27/2014 11:50 Document - DOC Non-SEWING LINE BALER Cytology Source: [facility] [employer] Document Id: [id number] Miscellaneous - Neelima Mays, C.N.A. - 12/26/2014 9:46 AM CDT Adult Director Mortgage Intake/History Adult Director Mortgage Intake/History Entered On: 12/26/2014 9:49 CDT Performed On: 12/26/2014 9:46 CDT by NEELIMA MAYS Intake Chief Complaint : CYSTO Temperature Core : 36.5 DegC(Converted to: 97.7 DegF) Peripheral Pulse Rate : 80 /min Respiratory Rate : 18 /min Systolic Blood Pressure : 118 mmHg Diastolic Blood Pressure : 78 mmHg NIBP Mean : 91 mmHg Height : 174 cm(Converted to: 5 ft 9 inch(es), 69 inch(es)) NEELIMA MAYS - 12/26/2014 9:46 CDT General Info Information Given By : Patient Languages : Cymro Is Patient Female and 13-50 no hysterectomy : No NEELIMA MAYS - 12/26/2014 9:46 CDT Subjective Pain Symptoms : NEELIMA Su - 12/26/2014 9:46 CDT Dependent Habits Tobacco Use/Currently Using : Yes Exposure to Tobacco Smoke : Patient smokes Smoking Status : Current every day smoker NEELIMA MAYS - 12/26/2014 9:46 CDT Tobacco Use Grid Type : Cigarettes Cigarette Use Packs/Day : 0.5 NEELIMA MAYS - 12/26/2014 9:46 CDT Caffeine Use Grid Caffeine Use : Current Type : Coffee, Tea Frequency : Daily Amount : 2 cup coffee/2 tea daily NEELIMA MAYS - 12/26/2014 9:46 CDT Recreational Drug Use Grid Drug Use : None NEELIMA MAYS - 12/26/2014 9:46 CDT Source: [employer] Document Id: [id number] CDT!33 documented in this encounter Plan of Treatment Upcoming Encounters Date Type Specialty Care Team Description 04/12/2022 Office Visit Cardiovascular Disease Simone Gooden AP RN, C.N.P. [address] [phone] (Wo rk) documented as of this encounter Procedures Procedure Name Priority Date/Time Associated Comments Diagnosis UROVYSION (R) FOR Routine 12/26/2014 9:58 AM Resu lts for this BLADDER CANCER CDT procedure are in the results section. ZZPATHOLOGY NON-SEWING LINE BALER Routine 12/26/2014 7:40 AM Re sults for this CYTOLOGY CDT procedure are i n the results section. documented in this encounter Results UroVysion for Detection of Bladder Cancer, Urine (12/26/2014 9:58 AM CDT) [facility] Method Time Signature HXFUROC Result Negative POWERCHART [facility] HXFUROC See Comment POWERCHART Result-[place] Comment: RESULT: No evidence of urotheli al [...] probe for 9p21. PDF Report available at: [email or web address] Reason For Referral See Comment POWERCHA RT Comment: RESULT: Evaluate for urothelial carcinoma. HXFUROC Spec-[place] Varies POWERCHART HXFUROC Source-[place] Urine, NOS POWERCHAR T HXFUROC Released By-[place] See Comment POW ERCHART Comment: RESULT: Benjamin Parada M.D., Ph.D. Test Performed by: [facility] [place] [address] Rn Relief Charge: Adiel Toledo II, M.D., Ph.D. Specimen (Source) Anatomical Collection Method Collection Time Re ceived Time Location / / Volume Laterality Urine 12/26/2014 9:58 AM CDT Tamika Camejo M.D. LAB GENETIC TESTING Performing Organization Address City/[facility]/ZIP Code Phon e Number POWERCHART ZZPATHOLOGY NON-SEWING LINE [facility]ER CYTOLOGY (12/26/2014 7:40 AM CDT) Specimen (Source) Anatomical Collection Method Collection Time Re ceived Time Location / / Volume Laterality 12/26/2014 7:40 AM CDT Narrative [facility] - 12/27/2014 11:50 AM CDT [facility] [address] [place], [place] ??[address] Patient Name: SEVEN SALAZAR Patient ID #: [id number] Collected: 12/26/2014 Address: [facility]/State/Zip: [address] ??[phone] Received: Reported: 12/27/2014 12/27/2014 Soc. Sec. #: ?/Age/Sex 1950 (Age: 64) ??M Physician(s): A GRANT Copy To: ? [facility] ??[id number] [address] [facility], ??[place] ??[address] CYTOPATHOLOGY NON-SEWING LINE BALER REPORT FINAL CYTOLOGIC DIAGNOSIS Urine-VOIDED: NEGATIVE FOR MALIGNANCY SATISFACTORY SPECIMEN FOR EVALUATION. Electronically Signed By [facility]/12/27/2014 YUNI SARMIENTO M.D. AM [facility](ASCP) SPECIMEN(S) RECEIVED: Urine-VOIDED CLINICAL HISTORY: GROSS DESCRIPTION: 2 CYTOSPINS PREPARED FROM 60 ML ALCOHOL- FIXED CLEAR YELLOW FLUID. Tamika Camejo M.D. LAB PATHOLOGY/CYTOLOGY ORDER IRVIN Performing Organization Address City/State/ZIP Code Phon e Number [facility] documented in this encounter Visit Diagnoses Not on filedocumented in this encounter Additional Health Concerns Assessment Noted Time PHQ-9 Depression Total Score: 3 01/17/2014 1:01 PM CDT documented as of this encounter
--- OUTSIDE RECORDS SUMMARY | 2022-03-29 07:56 | XMS_ITS | Encounter Summary ---
:1950 Author Organization [facility] Address [address] [place] [address] Care Team Providers Name Role Phone Unavailable Primary Care Provider Unavailable Encounter Details Date Type Department Care Team Description 02/20/2015 Hospital Encounter HX [facility] Tarik Camejo M.D. [address] [place], [place] [phone] (Wo rk) Social History [...] How often do you attend evangelical or zoroastrian services? 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 - 02/21/2015 11:09 AM CDT Results Notification Document Contains Addenda Addendum by ADILSON IRWIN LPN on 21 February 2015 12:17:10 CDT Patient was mailed letter with normal results. From: TAMIKA CAMEJO MD To: Urology Nurse; Sent: 02/21/2015 11:09:19 CDT ! Show up: 02/21/2015 11:09:19 CDT Subject: Results Notification Actions: Notify patient of results Reminder Comments: ng Results: Date Result Type Ind Result Name MBO Review Culture Urine Source: [facility] POWERCHART Document Id: [id number] Miscellaneous - Tamika Camejo M.D. - 02/20/2015 9:49 AM CDT Results Notification Document Contains Addenda Addendum by ADILSON IRWIN LPN on 20 February 2015 10:20:27 CDT Patient informed at appointment today. From: TAMIKA CAMEJO MD To: Urology Nurse; Sent: 02/20/2015 09:49:56 CDT ! Show up: 02/20/2015 09:49:56 CDT Subject: Results Notification Actions: Notify patient of results Reminder Comments: ok Results: Date Result Name Ind Value Ref Range 02/20/2015 09:29 UA Color Yellow (Colorless - ) 02/20/2015 09:29 UA Clarity Clear (Clear - ) 02/20/2015 09:29 UA Spec Grav 1.015 02/20/2015 09:29 UA pH 7.0 (<5.0 - ) 02/20/2015 09:29 UA Protein Negative mg/dL (Negative - ) 02/20/2015 09:29 UA Glucose Negative mg/dL (Negative - ) 02/20/2015 09:29 UA Ketones Negative mg/dL (Negative - ) 02/20/2015 09:29 UA Bili Negative (Negative - ) 02/20/2015 09:29 UA Urobilinogen 0.2 mg/dL (0.2 - ) 02/20/2015 09:29 UA Blood (*) Trace (Negative - ) 02/20/2015 09:29 UA Nitrite Negative (Negative - ) 02/20/2015 09:29 UA Leuk Est (*) Trace (Negative - ) 02/20/2015 09:29 UR WBC (*) 4-10 /HPF (None Seen - ) 02/20/2015 09:29 UR RBC Occ-2 /HPF (None Seen - ) 02/20/2015 09:29 UR Squamous Epi Cells (*) Occ-3 /HPF (None Seen - ) Source: [facility] POWERCHART Document Id: [id number] Electronically signed by Conversion, [facility] Telemetry Nurse [id number] at 09/30/2016 4:10 AM CDT documented in this encounter Plan of Treatment Upcoming Encounters Date Type Specialty Care Team Description 04/12/2022 Office Visit Cardiovascular Disease Simone Gooden AP RN, C.N.P. [address] [phone] (Wo rk) documented as of this encounter Procedures Procedure Name Priority Date/Time Associated Comments Diagnosis URINALYSIS WITH Routine 02/20/2015 9:29 AM Result s for this MICROSCOPIC CDT procedure are i n the results section. BACTERIAL CULTURE, Routine 02/20/2015 9:29 AM Res ults for this AEROBIC, URINE CDT procedure are in the results section. documented in this encounter Results (ABNORMAL) Urinalysis, Complete, Includes Microscopic (02/20/2015 9:29 AM CDT) [facility] Method Time Signature HXUR WBC. 4-10 (A) None Seen POWERCHART HPF HXUR RBC. Occ-2 None Seen POWERCHART HPF Squamous Occ-3 (A) None Seen POWERCHART Epithelial HPF HXUr Color Yellow Colorless POWERCHART Clarity Clear Clear POWERCHART Glucose Negative Negative POWERCHART MGDL HXBILIRUBIN Negative Negative POWERCHART Ketones, QL(U) Negative Negative POWERCHART MGDL Specific 1.015 POWERCHART Eugene, POCT, U HXBLOOD Trace (A) Negative POWERCHART pH, POCT, Urine 7.0 <5.0 POWERCHART Protein, Ur, Dip Negative Negative POWERCHART MGDL Urobilinogen 0.2 0.2 MGDL POWERCHART HXNITRITE Negative Negative POWERCHART Leukocyte Trace (A) Negative POWERCHART Esterase Specimen (Source) Anatomical Collection Method Collection Time Re ceived Time Location / / Volume Laterality Urine, First 02/20/2015 9:29 AM Voided CDT Tamika Camejo M.D. LAB URINE ORDERABLES Performing Organization Address City/State/ZIP Code Phon e Number POWERCHART Bacterial Culture, Aerobic, Urine (02/20/2015 9:29 AM CDT) [facility] Signature Bacterial POWERCHART Culture, Aerobic, Urine HXFinal No growth POWERCHART Specimen (Source) Anatomical Collection Method Collection Time Re ceived Time Location / / Volume Laterality Urine, First 02/20/2015 9:29 AM Voided CDT Tamika Camejo M.D. LAB MICROBIOLOGY - GENERAL O RDERABLES Performing Organization Address City/State/[facility] [[email or web address]] Code Phon e Number POWERCHART documented in this encounter Visit Diagnoses Not on filedocumented in this encounter Additional Health Concerns Assessment Noted Time PHQ-9 Depression Total Score: 17 01/24/2015 11:26 AM C DT documented as of this encounter
--- OUTSIDE RECORDS SUMMARY | 2022-03-29 07:56 | XMS_ITS | Encounter Summary ---
:1950 Author Organization [facility] Address [address] [place] [address] Care Team Providers Name Role Phone Unavailable Primary Care Provider Unavailable Encounter Details Date Type Department Care Team Description 02/20/2015 Hospital Encounter HX [facility] UROLOGY Jatinder Camejo M.D. [address] [place] [phone] (Wo rk) Social History Tobacco [...] How often do you attend baptist or orthodoxy services? 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 - 02/20/2015 10:26 AM CDT Nurse Only Documentation Nurse Only Documentation Entered On: 02/20/2015 10:29 CDT Performed On: 02/20/2015 10:26 CDT by PRUDENCIO CANNON LPN Nurse Only Documentation Nurse Only Visit Documentation : BCG 4 of 6 PRUDENCIO CANNON LPN - 02/20/2015 10:26 CDT Vitals/Ht/Wt Temperature Core : 36.5 DegC(Converted to: 97.7 DegF) Peripheral Pulse Rate : 84 /min Heart Rhythm : Regular Systolic Blood Pressure : 108 mmHg Diastolic Blood Pressure : 64 mmHg NIBP Mean : 79 mmHg BP Location : Left upper extremity Blood Pressure Cuff Size : Regular Height : 172 cm(Converted to: 5 ft 8 inch(es), 68 inch(es)) PRUDENCIO CANNON LPN - 02/20/2015 10:26 CDT Source: [employer] Document Id: [id number] CDT!13 documented in this encounter Plan of Treatment Upcoming Encounters Date Type Specialty Care Team Description 04/12/2022 Office Visit Cardiovascular Disease Simone Gooden AP RN, C.N.P. [address] [phone] (Wo rk) documented as of this encounter Visit Diagnoses Not on filedocumented in this encounter Additional Health Concerns Assessment Noted Time PHQ-9 Depression Total Score: 17 01/24/2015 11:26 AM C DT documented as of this encounter
--- OUTSIDE RECORDS SUMMARY | 2022-03-29 07:56 | XMS_ITS | Encounter Summary ---
:1950 Author Organization [facility] Address [address] [place] [address] Care Team Providers Name Role Phone Unavailable Primary Care Provider Unavailable Encounter Details Date Type Department Care Team Description 02/10/2015 Hospital Encounter [facility]X [facility] Riley Jimenez M.D. [address] [facility] [address] [phone] Social History Tobacco Use Types Packs/Day [...] How often do you attend jainism or baptism services? 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 - 02/10/2015 9:41 AM CDT [id number] CHIEF COMPLAINT/ REASON FOR VISIT Followup on chronic medical problems. HISTORY OF PRESENT ILLNESS Mik is a pleasant 64-year-old male who presents to the clinic today for a followup from 02/06/2015. He is doing well. He no longer has confusion. He was seen at [facility] ED on 02/03/2015 for fever, headache, confusion, and suicidal and homicidal thoughts after starting Wellbutrin. He has some shortness of breath, but is much better. His cough is improved as well. He deniesany chest congestion, wheezing, or dry mouth. His appetite is better. He has lost 5 pounds since January 2015. There is no stomach upset or hematuria. He returned to work on 02/08/2015 without difficulty. His systolic blood pressure is high today. He feels it is from taking Prednisone. He is taking all of his medications regularly. He denies any swelling in his feet. Patient mentioned that he smoked two cigarettes the other day. He doesnt have any cigarettes at home. Otherwise, he has quit smoking. He has COPD. He doesnt use Tudorza inhaler because it isnt covered by his insurance. We reviewed medications included in the MERCK program. I reviewed and updated his medication list. We discussed potential side effects. Otherwise, there are no additional questions, concerns, or complaints. MEDICATIONS Reviewed and updated as per the EHR on 02/10/2015. ALLERGIES Reviewed and updated as per the EHR on 02/10/2015. SYSTEMS REVIEW As per the history of present illness. All other systems are reviewed and are negative. PAST MEDICAL/ SURGICAL HISTORY Reviewed and updated as per the EHR on 02/10/2015. PREVENTIVE SERVICES Reviewed and updated as per the EHR on 02/10/2015. SOCIAL HISTORY Reviewed and updated as per the EHR on 02/10/2015. FAMILY HISTORY Reviewed and updated as per the EHR on 02/10/2015. VITAL SIGNS HEIGHT: 172 cm. WEIGHT: 98 kg. BMI: 33.13 kg/m2. PULSE: 67 /min. RESP: 20 /min. O2SAT: 95 %. SYSTOLIC: 178 mmHg. DIASTOLIC: 77 mmHg. SR: 187/88 mmHg. TR: 154/80 mmHg. PHYSICAL EXAMINATION GENERAL: Patient is sitting. No distress. Able to talk without interruption. LYMPH NODES: No cervical or supraclavicular lymphadenopathy. HEART: No carotid bruit. No JVD. Regular rhythm. There is no S3, gallop, murmur, or thrill. LUNGS: Normal respiratory effort. He has rhonchi in left posterior lung. EXTREMITIES: No clubbing, cyanosis, edema, infection, or calf tenderness. MENTAL: Alert and oriented x 3. Normal mood and affect. IMPRESSION/ REPORT/ PLAN 1. Leukocytosis. His white blood cell is just above normal while hospitalized. There is no evidence of infection clinically. CBC was rechecked today. 2. Hyponatremia. Patient is asymptomatic. Most likely from Hydrochlorothiazide; this was stopped at his last visit. BMP was done today. Need to monitor electrolytes and renal function regularly. 3. Hypertension, which is chronic. Blood pressure is high, especially systolic. It is most likely from Prednisone therapy. He is stable from a cardiac standpoint. Need to continue sodium controlled diet and current medication. Blood pressure goal is less than 140/90 mmHg. Need to continue cardiovascular risk factors modification. 4. COPD exacerbation. He is doing better. Patient is stable from respiratory standpoint. He will finish Levaquin and Prednisone therapy. He uses Albuterol inhaler 2 puffs 3-5 times a day. It is expensive. We discussed [employer] patient assistance program for Proventil inhaler instead of using Albuterol. He doesnt use Tudorza because of expense. He was given information on STRIDE program eligibility for Tudorza inhaler. He will let me know if it is covered. 5. Renew medications. The following medications were renewed: Lisinopril. Todays studies: BMP and CBC. Patient will be notified with results and recommendations. The patient will return to the clinic as previously scheduled. This document serves as a record of services personally performed by Dr. Riley Sanchez. It was created on their behalf by Jaun Ramos, a trained medical auditor. The creation of this record is based on the scribe's personal observations and the provider's statements to them. This document has been checked and approved by the attending provider. Riley Sanchez M.D./arti Electronically Signed By: RILEY SANCHEZ MD On: 02/12/2015 12:05 AM Modified by and Electronically Signed by: RILEY SANCHEZ MD On: 02/12/2015 12:05 AM Source: [facility] MHSDOLBEYNONRADSYS Document Id: [id number] documented in this encounter Miscellaneous Notes Miscellaneous - Riley Sanchez M.D. - 02/10/2015 10:50 AM CDT Ambulatory Patient Summary [address] [phone] Visit Information Name: [facility] Number: [id number] Current Date: 02/10/2015 10:50:58 Physicians Attending Provider: RILEY SANCHEZ MD Primary Care Provider: RILEY SANCHEZ MD CHRISSEVENY has been given the following list of [...] Oral, once a day x 7 day(s) lisinopril (lisinopril 40 mg oral tablet) 1 Tablet(s), Oral, once a day (in the morning) New Routed to [facility] [place] [address] pravastatin (pravastatin 40 mg oral tablet) 1 Tablet(s), Oral, once a day (at bedtime) predniSONE (predniSONE 50 mg oral tablet) 1 Tablet(s), Oral, once a day x 7 day(s) with food Stop Taking the Following Medications: aclidinium (Tudorza Pressair 400 mcg/inh inhalation powder) Medication list as of 02-10-15 10:50 Attention: If you have any medications at [...] Electronically Signed By: RILEY SANCHEZ MD Signed On:10-FEB-2015 10:50:46 Your Allergies & Intolerances Substance Reaction Symptoms [...] Risk Medication Active Hypertension (HTN) Chronic Active Your Upcoming Appointments Date Time Location Provider 02/13/2015 10:00 [facility] 02/13/2015 10:30 [facility] U[facility] Nurse 1 02/20/2015 10:00 [facility] 02/20/2015 10:30 [facility] U[facility] Nurse 1 02/23/2015 15:30 [facility] InternCarlos Sanchez MD, Phunt 02/27/2015 10:00 [facility] 02/27/2015 10:30 [facility] U[facility] Nurse 1 04/10/2015 10:30 [facility]rology Jatinder Camejo MD 04/26/2015 08:30 [facility] 05/08/2015 10:15 [facility] InternCarlos Sanchez MD, Riley Attention: Contact your local Clinic if further appointment detail needed. Bronchitis With Wheezing (Viral Or Bacterial: Adult) Bronchitis is an infection of the air passages. It often occurs during the common cold and is usually caused by a virus. Symptoms include cough with mucus (phlegm) and low-grade fever. If there is a lot of inflammation, air flow is restricted. The air passages may also go into spasm, especially if you are an asthmatic. This causes wheezing and difficulty breathing even in persons whodo not have asthma. Bronchitis usually lasts 7-14 days. The wheezing should improve with treatment during the first week. An inhaler is often prescribed to relax the air passages and stop wheezing. Antibiotics will be prescribed if your doctor thinks there is also a secondary bacterial infection. Home Care: ?? If symptoms are severe, rest at home for the first 2-3 days. When resuming activity, don't let yourself become overly tired. ?? Do not smoke and avoid exposure to the smoke of others. ?? You may use acetaminophen (Tylenol) or ibuprofen (Motrin, Advil) to control fever, unless anothermedicine was prescribed. [NOTE: If you have chronic liver or kidney disease or ever had a stomach ulcer or GI bleeding, talk with your doctor before using these medicines.] (Aspirin should never be used in anyone under 18 years of age who is ill with a fever. It may cause severe liver damage.) ?? Your appetite may be poor so a light diet is fine. Avoid dehydration by drinking 6-8 glasses of fluids per day (water, soft, drinks, juices, tea, soup, etc.). Extra fluids will help loosen secretions in the lungs. ?? Nihp-xfk-fzgzqre cough medicines that contain dextromethorphan (such as Robitussin DM) and decongestants (Actifed or Sudafed) may help relieve cough and congestion. [NOTE: Do not use decongestants if you have high blood pressure.] ?? If you were given an inhaler, use it exactly as directed. If you need to use it more often than prescribed, your condition may be worsening. Contact your doctor or this facility. ?? If prescribed, finish all antibiotic medicine, even if you are feeling better after only a few days. Follow Up With Your Doctor Or As Directed If You Are Not Starting To Feel Better After Three Days. [NOTE: If you are age 65 or older, or if you have chronic asthma or COPD, we recommend a pneumococcal vaccination every five years and a yearly influenza vaccination (flu shot) every . Ask your doctor about this. If you had an x-ray or EKG (electrocardiogram), it will be reviewed by a specialist. You will be notified of any new findings that may affect your care.] Get Prompt Medical Attention If Any Of The Following Occur: ?? Increased wheezing, shortness of breath or pain with breathing ?? Fever of 100.4?F (38?C) oral or higher, not better with fever medication ?? Coughing up blood or increasing amounts of colored sputum ?? Weakness, drowsiness, headache, facial pain, ear pain or a stiff neck ?? Lower leg swelling, tenderness, redness or pain ?? [id number] Dominic Vargas, [address] [place] [address], [place] [address]. All rights reserved. This information is not [...] if you dont have one. Go to [email or web address] and click on Create Your Account. Then, follow the directions to complete the online form. Youll be asked for your [facility] number which you can find at the top of this document. Your Goals/Additional instructions: This document has images extracted. Please consider using [employer] for all your patient education needs. Source: [facility] POWERCHART Document Id: [id number] Miscellaneous - Riley Sanchez M.D. - 02/10/2015 10:50 AM CDT Ambulatory Discharge Medication List [address] [id number] Visit Information Name: [facility] Number: [id number] Visit Date: 02/10/2015 10:50:56 Attending Provider: RILEY SANCHEZ MD Primary Care [...] Oral, once a day x 7 day(s) lisinopril (lisinopril 40 mg oral tablet) 1 Tablet(s), Oral, once a day (in the morning) New Routed to [facility] [address] [place] [address] pravastatin (pravastatin 40 mg oral tablet) 1 Tablet(s), Oral, once a day (at bedtime) predniSONE (predniSONE 50 mg oral tablet) 1 Tablet(s), Oral, once a day x 7 day(s) with food Stop Taking the Following Medications: aclidinium (Tudorza Pressair 400 mcg/inh inhalation powder) Medication list as of 02-10-15 10:50 Attention: If you have any medications at [...] Electronically Signed By: RILEY SANCHEZ MD Signed On:10-FEB-2015 10:50:46 Additional Information: Source: [facility] Document Id: [id number] Mook - Riley Sanchez M.D. - 02/10/2015 10:40 AM CDT Ambulatory Vitals Height Weight Ambulatory Vitals Height Weight Entered On: 02/10/2015 10:40 CDT Performed On: 02/10/2015 10:40 CDT by RILEY SANCHEZ MD Vitals/Ht/Wt Systolic Blood Pressure : 154 mmHg (HI) Diastolic Blood Pressure : 80 mmHg NIBP Mean : 105 mmHg BP Location : Right upper extremity Blood Pressure Cuff Size : Large Height : 172 cm(Converted to: 5 ft 8 inch(es), 68 inch(es)) RILEY SANCHEZ MD - 02/10/2015 10:40 CDT Source: [facility] Document Id: [id number] CDT!8 Mook - Juany Duncan, EmilyP.NBhavesh - 02/10/2015 9:52 AM CDT Ambulatory Vitals Height Weight Ambulatory Vitals Height Weight Entered On: 02/10/2015 9:55 CDT Performed On: 02/10/2015 9:52 CDT by JUANY DUNCAN LPN Vitals/Ht/Wt Peripheral Pulse Rate : 60 /min Systolic Blood Pressure : 187 mmHg (>HHI) Diastolic Blood Pressure : 88 mmHg NIBP Mean : 121 mmHg BP Location : Left upper extremity Blood Pressure Cuff Size : Large SpO2 : 95 % Oxygen Therapy : Room air Height : 172 cm(Converted to: 5 ft 8 inch(es), 68 inch(es)) JUANY DUNCAN LPN - 02/10/2015 9:52 CDT [facility] Document Id: [id number] CDT!11 Miscellaneous - Juany Duncan L.P.NBhavesh - 02/10/2015 9:45 AM CDT Adult Community Education Coordinator Intake/History Adult Community Education Coordinator Intake/History Entered On: 02/10/2015 9:52 CDT Performed On: 02/10/2015 9:45 CDT by JUANY DUNCAN LPN Intake Chief Complaint : 1. Follow-up from 02/06/2015 Peripheral Pulse Rate : 67 /min Respiratory Rate : 20 /min Systolic Blood Pressure : 178 mmHg (>HHI) Diastolic Blood Pressure : 77 mmHg NIBP Mean : 111 mmHg BP Location : Left upper extremity Blood Pressure Cuff Size : Large Height : 172 cm(Converted to: 5 ft 8 inch(es), 68 inch(es)) Actual Weight : 98 kg(Converted to: 216 lb 1 oz) Weight Source : Standing scale Dosing Weight Clinic : 98 kg Clinic BSA : 2.16 Body Mass Index : 33.13 kg/m2 JUANY DUNCAN LPN - 02/10/2015 9:45 CDT General Info Information Given By : Patient Preferred Communication Mode : Verbal, Written Languages : Azeri Is Patient Female and 12-50 no hysterectomy : No JUANY DUNCAN LPN - 02/10/2015 9:45 CDT Subjective Pain Symptoms : No JUANY DUNCAN LPN - 02/10/2015 9:45 CDT Dependent Habits Tobacco Use/Currently Using : No Tobacco Use/Last 12 months : Yes Exposure to Tobacco Smoke : Other: patient quit 8 days ago Smoking Status : Former smoker JUANY DUNCAN [facility] - 02/10/2015 9:45 CDT Tobacco Use Grid Type : Cigarettes Cigarette Use Packs/Day : 0.5 JUANY DUNCAN [facility] - 02/10/2015 9:45 CDT Caffeine Use Grid Caffeine Use : Current Type : Coffee, Tea Frequency : Daily Amount : 2 cup coffee/2 tea daily JUANY DUNCAN [facility] - 02/10/2015 9:45 CDT Recreational Drug Use Grid Drug Use : None JUANY DUNCAN [facility] - 02/10/2015 9:45 CDT Source: [facility] Document Id: [id number] CDT!41 documented in this encounter Plan of Treatment Upcoming Encounters Date Type Specialty Care Team Description 04/12/2022 Office Visit Cardiovascular Disease Simone Gooden AP RN, C.N.P. [address] [phone] (Wo rk) documented as of this encounter Visit Diagnoses Not on filedocumented in this encounter Additional Health Concerns Assessment Noted Time PHQ-9 Depression Total Score: 17 01/24/2015 11:26 AM C DT documented as of this encounter
--- OUTSIDE RECORDS SUMMARY | 2022-03-29 07:56 | XMS_ITS | Encounter Summary ---
:1950 Author Organization [facility] Address [address] [place] [address] Care Team Providers Name Role Phone Unavailable Primary Care Provider Unavailable Encounter Details Date Type Department Care Team Description 02/13/2015 Hospital Encounter HX NO MAPPING Darlene Camejo M.D. [address] [place], [place] [phone] (Wo rk) Social History [...] How often do you attend mormon or adventist services? 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 Coded By: LEONEL LORENZANA Date Saved: 02/25/2015 08:27 am Source: [facility]anaCHART Document Id: [id number] documented in this encounter Plan of Treatment Upcoming Encounters Date Type Specialty Care Team Description 04/12/2022 Office Visit Cardiovascular Disease Simone Gooden AP RN, C.N.P. [address] [phone] (Wo rk) documented as of this encounter Visit Diagnoses Not on filedocumented in this encounter Additional Health Concerns Assessment Noted Time PHQ-9 Depression Total Score: 17 01/24/2015 11:26 AM C DT documented as of this encounter
--- OUTSIDE RECORDS SUMMARY | 2022-03-29 07:56 | XMS_ITS | Encounter Summary ---
:1950 Author Organization [facility] Address [address] [place] [address] Care Team Providers Name Role Phone Unavailable Primary Care Provider Unavailable Encounter Details Date Type Department Care Team Description 02/10/2015 Hospital Encounter HX [facility] Leta Sanchez M.D. [address] [facility] [address] [place] [phone] Social History Tobacco Use Types Packs/Day [...] How often do you attend sikh or worship services? 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 [address] [phone] (Wo rk) documented as of this encounter Procedures Procedure Name Priority Date/Time Associated Diagnosis Comme nts AUTOMATED Routine 02/10/2015 9:43 AM Results f or this DIFFERENTIAL, B CDT procedure ar e in the results section. CBC WITH Routine 02/10/2015 9:43 AM Results f or this DIFFERENTIAL, B CDT procedure ar e in the results section. BASIC METABOLIC Routine 02/10/2015 9:43 AM Result s for this PANEL, S/P CDT procedure are i n the results section. documented in this encounter Results (ABNORMAL) Automated Differential (02/10/2015 9:43 AM CDT) Patholo gist Method Time Signature Absolute 9.96 (H) 1.70 - POWERCHART Neutrophils 7.00 109L Lymphocytes 1.36 0.90 - POWERCHART 2.90 X109L Monocytes 0.46 0.30 - POWERCHART 0.90 X109L Eosinophils 0.00 (L) 0.05 - POWERCHART 0.50 X109L Absolute 0.03 0.00 - POWERCHART Basophil 0.30 X109L Specimen Anatomical Collection Method Collection Time Receive d Time (Source) Location / / Volume Laterality Blood 02/10/2015 9:43 AM 5 9:43 CDT AM CDT Leta Sanchez M.D. LAB BLOOD ADD-ON Performing Organization Address City/State/ZIP Code Phon e Number POWERCHART (ABNORMAL) CBC with Differential (02/10/2015 9:43 AM CDT) Analysis Performed At Patho logist Time Signature Leukocytes 11.8 (H) 3.5 - 10.5 POWERCHART X109L Erythrocytes 5.25 4.32 - POWERCHART 5.72 P8733V Hemoglobin 15.2 13.5 - POWERCHART 17.5 GDL Hematocrit 45.1 38.8 - POWERCHART 50.0 MCV 85.9 81.0 - POWERCHART 95.0 FL HX RDW 13.3 11.8 - POWERCHART 15.6 Platelet Count 418 150 - 450 POWERCHART X109L Specimen (Source) Anatomical Collection Method Collection Time Re ceived Time Location / / Volume Laterality Blood 02/10/2015 9:43 AM CDT Leta Sanchez M.D. LAB BLOOD ADD-ON Performing Organization Address City/State/ZIP Code Phon e Number POWERCHART (ABNORMAL) BMP (Basic Metabolic Panel) (02/10/2015 9:43 AM CDT) Analysis Performed At [facility] Time Signature BUN (Blood Urea 15 8 - 24 POWERCHART Nitrogen), S MGDL Chloride, S 97 (L) 98 - 107 POWERCHART MMOLL CO2 Total 29 22 - 29 POWERCHART MMOLL Creatinine 0.9 0.8 - 1.3 POWERCHART MGDL Glucose 147 (H) 70 - 139 POWERCHART MGDL Calcium, Total, 10.8 (H) 8.8 - 10.3 POWERCHART S MGDL Sodium, S 137 135 - 145 POWERCHART MMOLL Potassium, S 5.0 3.6 - 5.2 POWERCHART MMOLL HXeGFR (MDRD) >60 >=60 POWERCHART [id number] eGFR >60 >=60 POWERCHART Black/ [id number] Samoan Specimen (Source) Anatomical Collection Method Collection Time Re ceived Time Location / / Volume Laterality Blood 02/10/2015 9:43 AM CDT Leta Sanchez M.D. LAB BLOOD ADD-ON Performing Organization Address City/State/ZIP Code Phon e Number POWERCHART documented in this encounter Visit Diagnoses Not on filedocumented in this encounter Additional Health Concerns Assessment Noted Time PHQ-9 Depression Total Score: 17 01/24/2015 11:26 AM C DT documented as of this encounter
--- OUTSIDE RECORDS SUMMARY | 2022-03-29 07:56 | XMS_ITS | Encounter Summary ---
:1950 Author Organization [facility] Address [address] [place] [address] Care Team Providers Name Role Phone Unavailable Primary Care Provider Unavailable Encounter Details Date Type Department Care Team Description 2015 Hospital Encounter HX [facility] Jatinder Camejo M.D. [address] [place] [phone] (Wo rk) Social History Tobacco [...] How often do you attend methodist or baptism services? 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 - 2015 10:29 AM CDT Nurse Only Documentation Nurse Only Documentation Entered On: 2015 10:33 CDT Performed On: 2015 10:29 CDT by SHELLIE IRWIN LPN Nurse Only Documentation Nurse Only Visit Documentation : 1 of 6 BCG SHELLIE IRWIN LPN - 2015 10:29 CDT Vitals/Ht/Wt Temperature Core : 36.8 DegC(Converted to: 98.2 DegF) Peripheral Pulse Rate : 80 /min Systolic Blood Pressure : 158 mmHg (HI) Diastolic Blood Pressure : 78 mmHg NIBP Mean : 105 mmHg BP Location : Left upper extremity Blood Pressure Cuff Size : Regular Height : 172 cm(Converted to: 5 ft 8 inch(es), 68 inch(es)) SHELLIE IRWIN LPN - 2015 10:29 CDT Source: [employer] POWERCHART Document Id: [id number] documented in this encounter Plan of Treatment Upcoming Encounters Date Type Specialty Care Team Description 04/12/2022 Office Visit Cardiovascular Disease Simone Gooden AP RN, C.N.P. [address] [phone] (Wo rk) documented as of this encounter Visit Diagnoses Not on filedocumented in this encounter Additional Health Concerns Assessment Noted Time PHQ-9 Depression Total Score: 3 01/17/2014 1:01 PM CDT documented as of this encounter
--- OUTSIDE RECORDS SUMMARY | 2022-03-29 07:56 | XMS_ITS | Encounter Summary ---
:1950 Author Organization [facility] Address [address] [place] [address] Care Team Providers Name Role Phone Unavailable Primary Care Provider Unavailable Encounter Details Date Type Department Care Team Description 2015 Hospital Encounter HX [facility] Tarik Camejo M.D. [address] [place], [place] [phone] (Wo rk) Social History [...] How often do you attend amish or tenriism services? 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 [address] [phone] (Wo rk) documented as of this encounter Procedures Procedure Name Priority Date/Time Associated Comments Diagnosis BACTERIAL CULTURE, Routine 2015 9:51 AM Res ults for this AEROBIC, URINE CDT procedure are in the results section. HXUR % DYSMORPHIC RBC Routine 2015 9:51 AM Results for this CDT procedure are i n the results section. URINALYSIS WITH Routine 2015 9:51 AM Result s for this MICROSCOPIC CDT procedure are i n the results section. documented in this encounter Results Bacterial Culture, Aerobic, Urine (2015 9:51 AM CDT) Analysis Performed At [facility] logist Time Signature Bacterial POWERCHART Culture, Aerobic, Urine HXFinal No growth POWERCHART Specimen (Source) Anatomical Collection Method Collection Time Re ceived Time Location / / Volume Laterality Urine, First 2015 9:51 AM Voided CDT Jatinder Camejo M.D. LAB MICROBIOLOGY - GENERAL O RDERABLES Performing Organization Address City/State/ZIP Code Phon e Number POWERCHART HXUR % DYSMORPHIC RBC (2015 9:51 AM CDT) athologist Signature Dysmorphic RBC <=25 <=25 POWERCHART Specimen Anatomical Collection Method Collection Time Receive d Time (Source) Location / / Volume Laterality Urine, First 2015 9:51 AM 5 9:51 Voided CDT AM CDT Jatinder Camejo M.D. LAB HISTORICAL ORDERS Performing Organization Address City/[facility]/ZIP Code Phon e Number POWERCHART (ABNORMAL) Urinalysis, Complete, Includes Microscopic (2015 9:51 AM CDT) [facility] gist Method Time Signature HXUr Color Yellow Colorless POWERCHART Clarity Slightly Clear POWERCHART Cloudy (A) Glucose Negative Negative POWERCHART MGDL HXBILIRUBIN Negative Negative POWERCHART Ketones, QL(U) Negative Negative POWERCHART MGDL Specific 1.015 POWERCHART [place], POCT, U HXBLOOD Small (A) Negative POWERCHART pH, POCT, Urine 7.0 <5.0 POWERCHART Protein, Ur, Negative Negative POWERCHART Dip MGDL Urobilinogen 0.2 0.2 MGDL POWERCHART HXNITRITE Negative Negative POWERCHART Leukocyte Small (A) Negative POWERCHART Esterase HXUR WBC. 4-10 (A) None Seen POWERCHART HPF HXUR RBC. 3-10 (A) None Seen POWERCHART HPF HXUR Bacteria, None Seen None Seen POWERCHART Squamous Occ-3 (A) None Seen POWERCHART Epithelial HPF Specimen (Source) Anatomical Collection Method Collection Time Re ceived Time Location / / Volume Laterality Urine, First 2015 9:51 AM Voided CDT Jatinder Camejo M.D. LAB URINE ORDERABLES Performing Organization Address City/State/ZIP Code Phon e Number POWERCHART documented in this encounter Visit Diagnoses Not on filedocumented in this encounter Additional Health Concerns Assessment Noted Time PHQ-9 Depression Total Score: 3 01/17/2014 1:01 PM CDT documented as of this encounter
--- OUTSIDE RECORDS SUMMARY | 2022-03-29 07:56 | XMS_ITS | Encounter Summary ---
:1950 Author Organization [facility] Address [address] [place] [address] Care Team Providers Name Role Phone Unavailable Primary Care Provider Unavailable Encounter Details Date Type Department Care Team Description 02/03/2015 Hospital Encounter HX NO MAPPING Damian Stout M.D. [address] [place], [place] [address] (Wo rk) Social History [...] How often do you attend temple or lutheran services? 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 [address] [phone] (Wo rk) documented as of this encounter Visit Diagnoses Not on filedocumented in this encounter Additional Health Concerns Assessment Noted Time PHQ-9 Depression Total Score: 17 01/24/2015 11:26 AM C DT documented as of this encounter
--- OUTSIDE RECORDS SUMMARY | 2022-03-29 07:56 | XMS_ITS | Encounter Summary ---
:1950 Author Organization [facility] Address [address] [place] [address] Care Team Providers Name Role Phone Unavailable Primary Care Provider Unavailable Encounter Details Date Type Department Care Team Description 2015 Hospital Encounter HX NO MAPPING Darlene Camejo M.D. [address] [place], [place] [phone] (Wo rk) Social History [...] How often do you attend sikh or zoroastrian services? 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 However, the narrative phrase printed from the coding software may appear abbreviated, or result in slightly different terminology. Coded By: LEONEL LORENZANA Date Saved: 02/01/2015 03:43 pm Source: [facility] CENTEROpen Air Publishing Document Id: [id number] documented in this encounter Plan of Treatment Upcoming Encounters Date Type Specialty Care Team Description 04/12/2022 Office Visit Cardiovascular Disease Simone Gooden AP RN, C.N.P. [address] [phone] (Wo rk) documented as of this encounter Visit Diagnoses Not on filedocumented in this encounter Additional Health Concerns Assessment Noted Time PHQ-9 Depression Total Score: 3 01/17/2014 1:01 PM CDT documented as of this encounter
--- OUTSIDE RECORDS SUMMARY | 2022-03-29 07:56 | XMS_ITS | Encounter Summary ---
:1950 Author Organization [facility] Address [address] [place] [address] Care Team Providers Name Role Phone Unavailable Primary Care Provider Unavailable Encounter Details Date Type Department Care Team Description 02/23/2015 Hospital Encounter HX [facility] Riley Jimenez M.D. [address] [facility] [place], [facility] [address] [phone] Social History Tobacco Use Types Packs/Day [...] How often do you attend rastafari or nondenominational services? 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 - 02/23/2015 3:04 PM CDT [id number] CHIEF COMPLAINT/ REASON FOR VISIT 1. Followup on chronic medical problems. 2. Discuss test results. HISTORY OF PRESENT ILLNESS Mik is a pleasant 65-year-old male who presents to the clinic today for a one month followup. We discussed test results from 02/10/2015. Results were remarkable for calcium 10.8 and WBC 11.8. Patient is doing well. He has history of COPD. He received medication insurance assistance for inhalers. His breathing and cough seem to be improving. He denies any fever or loss of appetite. He is sleeping better. His stress has improved as well. He is smoking once in a while. He has urge to smoke on days after BCG treatment. He has BCG every week, for two more weeks. He will receive influenza immunization after completion of BCG treatment. Otherwise, there are no additional questions, concerns, or complaints. MEDICATIONS Reviewed and updated as per the EHR on 02/23/2015. ALLERGIES Reviewed and updated as per the EHR on 02/23/2015. SYSTEMS REVIEW Please see HPI for pertinent positives, otherwise rest of ROS negative. PAST MEDICAL/ SURGICAL HISTORY Reviewed and updated as per the EHR on 02/23/2015. PREVENTIVE SERVICES Reviewed and updated as per the EHR on 02/23/2015. SOCIAL HISTORY Reviewed and updated as per the EHR on 02/23/2015. FAMILY HISTORY Reviewed and updated as per the EHR on 02/23/2015. VITAL SIGNS HEIGHT: 172 cm. WEIGHT: 100 kg. BMI: 33.8 kg/m2. PULSE: 81 /min. RESP: 16 /min. SYSTOLIC: 121 mmHg. DIASTOLIC: 62 mmHg. PHYSICAL EXAMINATION GENERAL: Patient is sitting. No distress. Able to talk without interruption. HEART: No carotid bruit. No JVD. Regular rhythm. There is no S3, gallop, murmur, or thrill. LUNGS: Normal respiratory effort. Clear to auscultation. Normal percussion. EXTREMITIES: No clubbing, cyanosis, edema, infection, or calf tenderness. MENTAL: Alert and oriented x 3. Normal mood and affect. IMPRESSION/ REPORT/ PLAN 1. Leukocytosis. His white blood cell is just above normal, but improved. There is no evidence of infection clinically. We will continue to monitor. 2. Hypercalcemia. He is asymptomatic. His calcium is just above normal range. Patient needs to drinkenough water. We will monitor electrolytes at subsequent visit. 3. COPD. His breathing is improved. Patient is stable from respiratory standpoint. There is no COPD exacerbation. He forgot to bring medication program assistance form for Proventil and Tudorza inhaler. He will bring forms on Friday. 4. Tobacco abuse. He smokes once in a while. I recommended smoking cessation. He is not ready yet. We discussed complications. 5. Influenza immunization. It was not given because of BCG treatment. We will wait 2 more weeks. 6. Discussed test results. I reviewed test results from 02/10/2015. All questions were answered. Todays studies: BMP and CBC. Patient will be notified with results and recommendations. The patient will return to the clinic as previously scheduled. This document serves as a record of services personally performed by Dr. Riley Sanchez. It was created on their behalf by Juan Ramos, a trained medical records coordinator. The creation of this record is based on the scribe's personal observations and the provider's statements to them. This document has been checked and approved by the attending provider. Riley Sanchez M.D./arti Electronically Signed By: RILEY SANCHEZ MD On: 02/23/2015 04:35 PM Modified by and Electronically Signed by: RILEY SANCHEZ MD On: 02/23/2015 04:35 PM Riley Sanchez M.D./arti Electronically Signed By: RILEY SANCHEZ MD On: 02/23/2015 04:35 PM Modified by and Electronically Signed by: RILEY SANCHEZ MD On: 02/23/2015 04:35 PM Source: [facility] MHSDOLBEYNONRADSYS Document Id: [id number] documented in this encounter Miscellaneous Notes Miscellaneous - Riley Sanchez M.D. - 03/24/2015 12:09 PM CST Kidney ultrasound 03/17/2015 at [facility] Document Contains Addenda Addendum by JUANY DUNCAN LPN on 24 March 2015 12:54:35 FILM WRITER Patient notified of results. From: RILEY SANCHEZ MD To: Laura Nurse; Sent: 03/24/2015 12:09:25 FILM WRITER Subject: Kidney ultrasound 03/17/2015 at [facility] Actions: Notify patient of results Please call him. Kidney ultrasound showed benign right kidney cyst. No kidney mass. FINDINGS: Right kidney: 11.4 x 5.5 x 6.2 cm. Benign 3.4 cm cyst anterior superior pole. Normal echotexture andcortex. No masses, stones, or hydronephrosis. Left kidney: 11.2 x 5.4 x 5.1 cm. Normal echotexture and cortex. No masses, stones, or hydronephrosis. Bladder: Normal in caliber and appearance. Prevoid volume 212 mL. Postvoid 24 mL. IMPRESSION: 1. Benign right renal cyst. Both kidneys are otherwise normal. No renal mass identified. 2. Bladder is normal in appearance. Source: [facility] POWERCHART Document Id: [id number] Miscellaneous - Riley Sanchez M.D. - 03/15/2015 11:[address] of lumbar spine done at [facility] 03/06/2015 Document Contains Addenda Addendum by EDER DOWLING CMA on 15 March 2015 11:26:07 FILM WRITER Patient was notified. He was sent to scheduling to schedule his kidney ultrasound. From: RILEY SANCHEZ MD To: Laura Nurse; Sent: 03/15/2015 11:19:44 FILM WRITER ! Subject: CT of lumbar spine done at [facility] 03/06/2015 Actions: Notify patient- refer to General Message, Notify patient of Future Order Please call him. He had CT of lumbar spine done at [facility] on 03/06/2015. He has 3.8 cm mass from right kidney upper pole. He had this before and ultrasound was done on 10/21/2011. We need to repeat kidney ultrasound. Order is in EHR. Source: [facility] POWERCHART Document Id: [id number] Electronically signed by Conversion, [facility] C D Still Operator [id number] at 09/30/2016 4:10 AM CDT Miscellaneous - Riley Sanchez M.D. - 02/25/2015 2:15 PM CDT Normal Results Letter 25 February 2015 SEVEN SALAZAR [address] [facility] [address] [place] [id number] Dear SEVEN SALAZAR, I am pleased to report that your tests for electrolytes, glucose, kidney function and blood count are normal. Please follow up with us as we discussed during your visit or sooner if you have any concerns. If you have questions or concerns, please do not hesitate to call our office. Result Name Current Result Normal Range Sodium Lvl (mmol/L) 140 02/23/2015 135 - 145 Potassium Lvl (mmol/L) 4.7 02/23/2015 3.6 - 5.2 Chloride (mmol/L) 99 02/23/2015 98 - 107 CO2 (mmol/L) (H) 31 02/23/2015 22 - 29 Glucose Lvl (mg/dL) 97 02/23/2015 70 - 139 Creatinine (mg/dL) 1.0 02/23/2015 0.8 - 1.3 EGFR (MDRD) (mL/min/1.73m2) >60 02/23/2015 >=60 - BUN (mg/dL) 20 02/23/2015 8 - 24 Calcium Lvl (mg/dL) 10.0 02/23/2015 8.8 - 10.3 Hgb (g/dL) 14.1 02/23/2015 13.5 - 17.5 Hct (%) 43.5 02/23/2015 38.8 - 50.0 WBC (x10(9)/L) 9.3 02/23/2015 3.5 - 10.5 Platelet (x10(9)/L) 315 02/23/2015 150 - 450 Sincerely, RILEY SANCHEZ [address] [place] [address] [place] [address] Electronic Signature Electronically Signed By: RILEY SANCHEZ MD On: 25 February 2015 This document has images extracted. Source: [facility] POWERCHART Document Id: [id number] Miscellaneous - Riley Sanchez M.D. - 02/23/2015 4:04 PM CDT Ambulatory Patient Summary [address] [place], [place] [phone] Visit Information Name: SEVEN SALAZAR FABRICE [facility] Number: [id number] Current Date: 02/23/2015 16:04:02 Physicians Attending Provider: RILEY SANCHEZ MD Primary Care Provider: RILEY SANCHEZ MD CHRISSEVEN PARSONS FABRICE has been given the following list [...] Prescription (Misc Prescription) BCG infusions once weekly pravastatin (pravastatin 40 mg oral tablet) 1 Tablet(s), Oral, once a day (at bedtime) Stop Taking the Following Medications: Medication list as of 02-23-15 16:04 Attention: If you have any medications at [...] Electronically Signed By: RILEY SANCHEZ MD Signed On:23-FEB-2015 16:03:56 Your Allergies & Intolerances Substance Reaction Symptoms [...] Your Upcoming Appointments Date Time Location Provider 02/27/2015 10:00 [facility] 02/27/2015 10:30 [facility] U[facility] Nurse 1 03/06/2015 09:30 [facility] 03/06/2015 10:00 [facility] Urology Nurse 1 04/10/2015 10:30 [facility] Jatinder Camejo MD 04/26/2015 08:30 [facility] 05/08/2015 10:15 [facility] Riley Sanchez MD Attention: Contact [...] you dont have one. Go to [email or web address] and click on Create Your Account. Then, follow the directions to complete the online form. Youll be asked for your [facility] number which you can find at the top of this document. Your Goals/Additional instructions: Source: [facility] POWERCHART Document Id: [id number] Miscellaneous - Riley Sanchez M.D. - 02/23/2015 4:04 PM CDT Ambulatory Discharge Medication List [address] [id number] Visit Information Name: SEVEN SALAZAR [facility] Number: [id number] Visit Date: 02/23/2015 16:04:00 Attending Provider: RILEY SANCHEZ MD Primary Care [...] Prescription (Misc Prescription) BCG infusions once weekly pravastatin (pravastatin 40 mg oral tablet) 1 Tablet(s), Oral, once a day (at bedtime) Stop Taking the Following Medications: Medication list as of 02-23-15 16:04 Attention: If you have any medications at [...] Electronically Signed By: RILEY SANCHEZ MD Signed On:23-FEB-2015 16:03:56 Additional Information: Source: [facility] POWERCHART Document Id: [id number] Miscellaneous - Juany Duncan L.P.NBhavesh - 02/23/2015 3:25 PM CDT Adult General Claims Agent Intake/History Adult General Claims Agent Intake/History Entered On: 02/23/2015 15:29 CDT Performed On: 02/23/2015 15:25 CDT by JUANY DUNCAN LPN Intake Chief Complaint : 1. One month follow-up from 01/24/2015 Peripheral Pulse Rate : 81 /min Respiratory Rate : 16 /min Systolic Blood Pressure : 121 mmHg Diastolic Blood Pressure : 62 mmHg NIBP Mean : 82 mmHg BP Location : Right upper extremity Blood Pressure Cuff Size : Large Height : 172 cm(Converted to: 5 ft 8 inch(es), 68 inch(es)) Actual Weight : 100 kg(Converted to: 220 lb 7 oz) Weight Source : Standing scale Dosing Weight Clinic : 100 kg Clinic BSA : 2.19 Body Mass Index : 33.8 kg/m2 JUANY DUNCAN LPN - 02/23/2015 15:25 CDT General Info Information Given By : Patient Preferred Communication Mode : Verbal, Written Languages : Sammarinese Is Patient Female and 13-50 no hysterectomy : No JUANY DUNCAN SHEMAR - 02/23/2015 15:25 CDT Subjective Pain Symptoms : No JUANY DUNCAN DIRECTOR MUSEUM OR ZOO - 02/23/2015 15:25 CDT Dependent Habits Tobacco Use/Currently Using : Yes Tobacco Use/Advised to Quit : Yes Exposure to Tobacco Smoke : Other: patient had quit but is now smoking some now and then Smoking Status : Current some day smoker JUANY DUNCAN DIRECTOR MUSEUM OR ZOO - 02/23/2015 15:25 CDT Tobacco Use Grid Type : Cigarettes Cigarette Use Packs/Day : 0.5 JUANY DUNCAN SHEMAR - 02/23/2015 15:25 CDT Caffeine Use Grid Caffeine Use : Current Type : Coffee, Tea Frequency : Daily Amount : 2 cup coffee/2 tea daily JUANY DUNCAN DIRECTOR MUSEUM OR ZOO - 02/23/2015 15:25 CDT Recreational Drug Use Grid Drug Use : None JUANY DUNCAN DIRECTOR MUSEUM OR ZOO - 02/23/2015 15:25 CDT Source: [employer] Document Id: [id number] CDT!41 documented in this encounter Plan of Treatment Upcoming Encounters Date Type Specialty Care Team Description 04/12/2022 Office Visit Cardiovascular Disease Simone Gooden AP RN, C.N.P. [address] [phone] (Wo rk) documented as of this encounter Procedures Procedure Name Priority Date/Time Associated Diagnosis Comme nts AUTOMATED Routine 02/23/2015 4:10 PM Results f or this DIFFERENTIAL, B CDT procedure ar e in the results section. CBC WITH Routine 02/23/2015 4:10 PM Results f or this DIFFERENTIAL, B CDT procedure ar e in the results section. BASIC METABOLIC Routine 02/23/2015 4:10 PM Result s for this PANEL, S/P CDT procedure are i n the results section. documented in this encounter Results (ABNORMAL) Automated Differential (02/23/2015 4:10 PM CDT) Patholo gist Method Time Signature Absolute 6.02 1.70 - POWERCHART Neutrophils 7.00 109L Lymphocytes 1.89 0.90 - POWERCHART 2.90 X109L Monocytes 1.06 (H) 0.30 - POWERCHART 0.90 X109L Eosinophils 0.31 0.05 - POWERCHART 0.50 X109L Absolute 0.02 0.00 - POWERCHART Basophil 0.30 X109L Specimen Anatomical Collection Method Collection Time Receive d Time (Source) Location / / Volume Laterality Blood 02/23/2015 4:10 PM 5 4:10 CDT PM CDT [facility].D. LAB BLOOD ADD-ON Performing Organization Address City/State/ZIP Code Phon e Number POWERCHART CBC with Differential (02/23/2015 4:10 PM CDT) athologist Signature Leukocytes 9.3 3.5 - 10.5 POWERCHART X109L Erythrocytes 4.95 4.32 - 5.72 POWERCHART [id number] Hemoglobin 14.1 13.5 - 17.5 POWERCHART GDL Hematocrit 43.5 38.8 - 50.0 POWERCHART MCV 87.9 81.0 - 95.0 POWERCHART FL HX RDW 14.2 11.8 - 15.6 POWERCHART Platelet Count 315 150 - 450 POWERCHART X109L Specimen (Source) Anatomical Collection Method Collection Time Re ceived Time Location / / Volume Laterality Blood 02/23/2015 4:10 PM CDT [facility].D. LAB BLOOD ADD-ON Performing Organization Address City/State/ZIP Code Phon e Number POWERCHART (ABNORMAL) BMP (Basic Metabolic Panel) (02/23/2015 4:10 PM CDT) P athologist Signature BUN (Blood Urea 20 8 - 24 POWERCHART Nitrogen), S MGDL Chloride, S 99 98 - 107 POWERCHART MMOLL CO2 Total 31 (H) 22 - 29 POWERCHART MMOLL Creatinine 1.0 0.8 - 1.3 POWERCHART MGDL Glucose 97 70 - 139 POWERCHART MGDL Calcium, Total, 10.0 8.8 - 10.3 POWERCHART S MGDL Sodium, S 140 135 - 145 POWERCHART MMOLL Potassium, S 4.7 3.6 - 5.2 POWERCHART MMOLL HXeGFR (MDRD) >60 >=60 POWERCHART [id number] eGFR >60 >=60 POWERCHART Black/ [id number] [place] Specimen (Source) Anatomical Collection Method Collection Time Re ceived Time Location / / Volume Laterality Blood 02/23/2015 4:10 PM CDT Riley Sanchez M.D. LAB BLOOD ADD-ON Performing Organization Address City/State/ZIP Code Phon e Number POWERCHART documented in this encounter Visit Diagnoses Not on filedocumented in this encounter Additional Health Concerns Assessment Noted Time PHQ-9 Depression Total Score: 17 01/24/2015 11:26 AM C DT documented as of this encounter
--- OUTSIDE RECORDS SUMMARY | 2022-03-29 07:56 | XMS_ITS | Encounter Summary ---
:1950 Author Organization [facility] Address [address] [place] [address] Care Team Providers Name Role Phone Unavailable Primary Care Provider Unavailable Encounter Details Date Type Department Care Team Description 01/30/2015 Hospital Encounter HX [facility] Tarik Camejo M.D. [address] [place], [place] [phone] (Wo rk) Social History [...] How often do you attend catholic or druze services? 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 - 01/31/2015 9:36 AM CDT Results Notification Document Contains Addenda Addendum by PRUDENCIO LOVE LPN on 02 February 2015 13:23:34 CDT Patient aware. Addendum by PRUDENCIO LOVE LPN on 31 January 2015 17:08:37 CDT Left message to call back. From: TAMIKA CAMEJO MD To: Urology Nurse; Sent: 01/31/2015 09:36:34 CDT ! Show up: 01/31/2015 09:36:34 CDT Subject: Results Notification Actions: Notify patient of results Reminder Comments: uc ng Results: Date Result Type Ind Result Name MBO Review Culture Urine Source: [facility] POWERCHART Document Id: [id number] Electronically signed by Rivka, [facility] Bindery Cutter Operator [id number] at 09/30/2016 10:34 AM CDT documented in this encounter Plan of Treatment Upcoming Encounters Date Type Specialty Care Team Description 04/12/2022 Office Visit Cardiovascular Disease Simone Gooden AP RN, C.N.P. [address] [phone] (Wo rk) documented as of this encounter Procedures Procedure Name Priority Date/Time Associated Comments Diagnosis URINALYSIS WITH Routine 01/30/2015 9:30 AM Result s for this MICROSCOPIC CDT procedure are i n the results section. BACTERIAL CULTURE, Routine 01/30/2015 9:30 AM Res ults for this AEROBIC, URINE CDT procedure are in the results section. documented in this encounter Results (ABNORMAL) Urinalysis, Complete, Includes Microscopic (01/30/2015 9:30 AM CDT) [facility] Method Time Signature HXUr Color Yellow Colorless POWERCHART Clarity Clear Clear POWERCHART Glucose Negative Negative POWERCHART MGDL HXBILIRUBIN Negative Negative POWERCHART Ketones, QL(U) Negative Negative POWERCHART MGDL Specific 1.015 POWERCHART [place], POCT, U HXBLOOD Trace (A) Negative POWERCHART pH, POCT, Urine 6.0 <5.0 POWERCHART Protein, Ur, Dip Negative Negative POWERCHART MGDL Urobilinogen 0.2 0.2 MGDL POWERCHART HXNITRITE Negative Negative POWERCHART Leukocyte Small (A) Negative POWERCHART Esterase HXUR WBC. 4-10 (A) None Seen POWERCHART HPF HXUR RBC. Occ-2 None Seen POWERCHART HPF Specimen (Source) Anatomical Collection Method Collection Time Re ceived Time Location / / Volume Laterality Urine, First 01/30/2015 9:30 AM Voided CDT Tamika Camejo M.D. LAB URINE ORDERABLES Performing Organization Address City/State/ZIP Code Phon e Number POWERCHART Bacterial Culture, Aerobic, Urine (01/30/2015 9:30 AM CDT) [facility] Signature Bacterial POWERCHART Culture, Aerobic, Urine HXFinal No growth POWERCHART Specimen (Source) Anatomical Collection Method Collection Time Re ceived Time Location / / Volume Laterality Urine, First 01/30/2015 9:30 AM Voided CDT Tamika Camejo M.D. LAB MICROBIOLOGY - GENERAL O RDERABLES Performing Organization Address City/State/ZIP Code Phon e Number POWERCHART documented in this encounter Visit Diagnoses Not on filedocumented in this encounter Additional Health Concerns Assessment Noted Time PHQ-9 Depression Total Score: 17 01/24/2015 11:26 AM C DT documented as of this encounter
--- OUTSIDE RECORDS SUMMARY | 2022-03-29 07:56 | XMS_ITS | Encounter Summary ---
:1950 Author Organization [facility] Address [address] [place] [address] Care Team Providers Name Role Phone Unavailable Primary Care Provider Unavailable Encounter Details Date Type Department Care Team Description 01/24/2015 Hospital Encounter HX [facility] Riley Jimenez M.D. [address] [facility], [facility] [address] [phone] Social History Tobacco Use Types Packs/Day [...] How often do you attend mormon or anabaptism services? 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 - 01/24/2015 11:01 AM CDT [id number] CHIEF COMPLAINT/ REASON FOR VISIT 1. Medicare annual wellness visit. 2. Review chronic medical problems. 3. Discuss test results. 4. Renew medication. HISTORY OF PRESENT ILLNESS Mik is a 64-year-old male who presents to the clinic today for the above complaints. His last physical exam was done on 01/17/2014. We discussed his test results from 01/19/2015, which were normal. We discussed Medicare visit preventive services. I updated his medical and surgical history, immunization record, family and social history, allergies, and medication list. He declines influenza immunization because he feels they dont work for him. He was given Prevnar 13 vaccine today. He needs Pneumovaxnext year because previous dose was given before age 64. His last colonoscopy was done on 11/26/2011. He is low risk. There is no family history of colon cancer. No personal history of colon polyps. Need to repeat screening colonoscopy after 11/26/2021. He is due to see eye doctor at [facility]. Patient last saw his dentist 1-1.5 years ago. He is active. He walks every day and exercises five times a week. There was no exertional chest pain or shortness of breath. He is pretty emotional today because his older brother recently due to a heart attack. Today, his PHQ-9 score was 17. He denies any homicidal or suicidal ideology. He feels that he has had issues with depression since . He feels sad, down and lethargic the past couple of months. He denies having depression in the past or taking medication for depression. We discussed possible etiologies, including but not limited to, thyroid disorder and electrolyte imbalance. TSH was normal on 01/19/2015. I reviewed with him possible medications and their side effects. He also wants to quit smoking. We discussed quit options. Patient saw Dr. Jatinder Camejo, Urologist on 01/10/2015 for followup on bladder cancer. BCG immunotherapy was restarted. His first, of six, BCG treatments was done on 2015. He needs screening for prostate cancer every year. His PSA was 4.3 on 01/19/2015. We reviewed his lipid profile and lipid profile goals. I discussed his ASCVD risk score of having heart attack/heart disease in the next 10 years. His risk score is 19.6%. If optimized, risk is 8.8%. If he quits smoking, risk decreases to 14.3%. If cholesterol is 160 and HDL is increased to 60, risk improves to 11.3%. We discussed starting medication to improve cholesterol and to decrease inflammation. Patient was advised to cut back calories, carbohydrates, and food portions. I reviewed and updated his medication list. We discussed potential side effects. Otherwise, there are no additional questions, concerns, or complaints. MEDICATIONS Tudorza 1 puff inhalation twice daily. Albuterol inhaler 2 puffs 4 times a day as needed. Wellbutrin 150 mg by mouth twice a day. Lisinopril/hydrochlorothiazide 20 mg/12.5 mg 2 tablets by mouth daily in the morning. Pravastatin 40 mg by mouth daily at bedtime. ALLERGIES No known drug allergies. SYSTEMS REVIEW As per the history of present illness. All other systems are reviewed and are negative. PAST MEDICAL/SURGICAL HISTORY History of right kidney cyst per ultrasound, 10/21/2011. 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 History of hypokalemia. Obesity. Tobacco use. History of partial complex seizures, currently asymptomatic. History of migraine headache. Hypertension. History of enteritis, esophagitis, and peptic ulcer. History of duodenitis, gastroesophageal reflux disease, 2 cm hiatal hernia. Diverticulosis. 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 Degenerative disk disease of cervical spine and lumbar spine. History of polymyalgia rheumatica. Insomnia. Elevated sedimentation rate. Status post appendectomy, 1967. 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 Status post left C5-C6 foraminotomy and hemilaminectomy, left C6-C7 foraminotomy and hemilaminectomyand diskectomy, 05/31/1999. Status post lipoma excision from back, 07/16/1999. Status post right cataract extraction, 08/16/2008. Status post right cataract extraction, 2008. Status post excision of lipoma from anterior abdominal wall, 02/19/2010. Status post transurethral resection of bladder tumor, 02/19/2010. 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 Status post esophagogastroduodenoscopy, 11/25 1012. Status post colonoscopy, 11/26/2011. Status post cystoscopy and bladder biopsy 02/01/2013. Status post right shoulder arthroplasty, 05/07/2013. Status post excision of skin lesion on dermal nevus on left cheek/nasolabial fold, 06/04/2013. PREVENTATIVE SERVICES Colonoscopy: 11/26/2011. PSA: 01/19/2015. Pneumovax: 01/17/2014. Tetanus booster: 02/12/2010. Influenza: Declined. Zostavax: N/A. SOCIAL HISTORY He is single. He lives alone. He smokes cigarettes, but wants to quit. He denies drug abuse. He drinks alcohol twice a month. He is physically active. He works at [employer] in [place], [place]. FAMILY HISTORY Asthma in brother. Father had liver, lung, and pancreas cancer. Lung cancer in sister. Mother has cataract and glaucoma. Hearing loss in father. Hypertension in mother and brother. Myocardial infarction in older brother. Parkinsons disease in father. VITAL SIGNS HEIGHT: 172 cm. WEIGHT: 100.5 kg. BMI: 33.97 kg/m2. PULSE: 76 /min. RESP: 16 /min. SYSTOLIC: 127 mmHg. DIASTOLIC: 68 mmHg. PHYSICAL EXAMINATION GENERAL: [...] PERIPHERAL VESSELS: Good radial, femoral, and pedal pulses. HEART: No carotid bruit. No JVD. Regular rhythm. There is no S3, gallop, murmur, or thrill. LUNGS: Normal respiratory effort. Clear to auscultation. Normal percussion. ABDOMEN: Moves with respiration. Bowel sounds present. Soft. No rebound tenderness, guarding, or rigidity. No organomegaly. RECTUM: Intact anal sphincter tone. No hemorrhoid or rectal mass. Stool guaiac negative. PROSTATE: Appropriate for age, slightly enlarged. No tenderness. Smooth surface. Firm in consistency. GENITALIA: No urethral discharge. Normal testicles. No hydrocele or hernia. SPINE: No scoliosis or kyphosis. No spinous tenderness or mass. JOINTS: No joint swelling or deformity. No decreased range of motion. EXTREMITIES: No clubbing, cyanosis, edema, infection, or calf tenderness. GAIT: No abnormal gait. MENTAL: Alert and oriented x 3. Normal mood and affect. NEURO: Intact cranial nerves. Intact sensory and motor. Grossly nonfocal exam. IMPRESSION/ REPORT/ PLAN 1. Medicare annual wellness visit. We discussed Medicare annual wellness visit preventive screening services. He answered patient screening questionnaire and safety screen. Mini Cog scoring was done. It is normal. Please see copies scanned into EHR. He needs to eat healthy diet and exercise regularly to maintain healthy body weight and BMI. Today BMI is 33.97 kg/m2. Today PHQ-9 score is 17. He declined influenza immunization today. Prevnar 13 vaccine was administered today. Advised to see eye doctoronce a year and dentist every six months. He needs health maintenance every year. 2. Hyperlipidemia. It is not controlled. Fasting lipid profile was done on 01/19/2015. Total cholesterol 185, triglycerides 89, HDL 47, LDL 120. We discussed his ASCVD risk score of having heart attack/heart disease in the next 10 years. His risk score is 19.6%. If optimized, risk is 8.8%. If he quits smoking, risk decreases to 14.3%. If cholesterol is 160 and HDL is increased to 60, risk decreases to 11.3%. We discussed starting medication to improve cholesterol and to decrease inflammation. It wasdecided to start Pravastatin 40 mg daily in the evening. He should contact me if he has side effectsor intolerance to new medication. Patient was advised to continue low cholesterol, low fat diet or regular exercise. Need to check fasting lipid profile again in 3 months after staring new medication. 3. Tobacco use. He wants to quit because of recurrent bladder cancer and his brother . Wediscussed quitting options. After discussion, it was decided to start Wellbutrin 150 mg by mouth twice a day. We discussed potential side effects from medication. 4. Adjustment disorder with depressed mood. He is feeling sad because of recurrent bladder cancer and passing of his brother. Today PHQ-9 score is 17. There were no homicidal or suicidal ideas or intention. He will take Wellbutrin as above. I initially wrote prescription for Sertraline but decided to do Wellbutrin to help him quit smoking. 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 We will recheck his status in 1 month. 5. Preventative services. He declined influenza immunization. He was given Prevnar 13 vaccine today. 6. Discussed test results. I reviewed test results from 01/19/2015. All questions were answered. The patient will return to the clinic in 1 month for followup. The patient will return to the clinic in 3 months for followup with following tests: ALT, AST, Fasting BMP, CK, and Lipid. This document serves as a record of services personally performed by Dr. Riley Sanchez. It was created on their behalf by Juan Ramos, a trained pediatric medical assistant. The creation of this record is based on the scribe's personal observations and the provider's statements to them. This document has been checked and approved by the attending provider. Riley Sanchez M.D./arti Electronically Signed By: RILEY SANCHEZ MD On: 02/11/2015 09:43 PM Modified by and Electronically Signed by: RILEY SANCHEZ MD On: 02/11/2015 09:43 PM Source: [facility] MHSDOLBEYNONRADSYS Document Id: [id number] documented in this encounter Miscellaneous Notes Miscellaneous - Riley Sanchez M.D. - 01/24/2015 12:23 PM CDT Ambulatory Patient Summary [address] [id number] Visit Information Name: CHRISSILASFRANKI REIDY [facility] Number: [id number] Current Date: 01/24/2015 12:23:27 Physicians Attending Provider: RILEY SANCHEZ MD Primary [...] Take Indications/Special Instructions/Comments/Notes for Patient Medication Changes/Routing aclidinium (Tudorza Pressair 400 mcg/inh inhalation powder) 1 puff(s), Inhalation, two times a day albuterol (albuterol CFC free 90 mcg/inh inhalation aerosol) 2 puff(s), Inhalation, every 4 hours asneeded for Shortness of breath / Wheezing use with spacer chamber buPROPion (Wellbutrin SR 150 mg/12 hours oral tablet, sustained release) 1 Tablet(s), Oral, two times a day New Routed to [facility] [address] [place] [address] lisinopril-hydrochlorothiazide (lisinopril-hydrochlorothiazide 20 mg-12.5 mg oral tablet) See Instructions 2 tab(s) PO Daily in AM. / (Zestoretic) pravastatin (pravastatin 40 mg oral tablet) 1 Tablet(s), Oral, once a day (at bedtime) New Routed [facility] [place] [address] Stop Taking the Following Medications: Medication list as of 01-24-15 12:23 Attention: If you have any medications at [...] Electronically Signed By: RILEY SANCHEZ MD Signed On:24-JAN-2015 12:23:15 Your Allergies & Intolerances Substance Reaction Symptoms Category Comments No Known Allergies Drug Your Problem List Problem Status Onset [...] Your Upcoming Appointments Date Time Location Provider 01/30/2015 10:00 [facility] 01/30/2015 10:30 [facility] U[facility] Nurse 1 02/06/2015 10:00 [facility] 02/06/2015 10:30 [facility] Urology Nurse 1 02/13/2015 10:00 [facility] 02/13/2015 10:30 [facility] U[facility] Nurse 1 02/20/2015 10:00 [facility] 02/20/2015 10:30 [facility] Urology Nurse 1 02/27/2015 10:00 [facility] 02/27/2015 10:30 [facility] Urology Nurse 1 04/10/2015 10:30 [facility] Jatinder Camejo MD Attention: Contact your local Clinic if further appointment detail needed. Grief Reaction Grief is the feeling that we all have when we lose someone that has been important in our life. Grief can last from months to years. The amount of time depends on different factors. These include how close the person was to you, and how much support you have through the grief process. Normal physical reactions to grief include loss of appetite or overeating, changes in weight, trouble getting to sleep or staying asleep, hair loss, stomach upset, cramping, diarrhea. Normal emotional reactions to grief include sadness, anxiety, feeling depressed or helpless, and difficulty concentrating. There may be a tendency to want to overwork or become so busy that you distract yourself from the intense pain you feel. Or you may lose all interest in work. Home Care: ?? Allow yourself to feel the pain of your loss. For some, this can be a graff part of healing grief. Talk about your pain with others who understand. Share good memories that involve the person you lost. ?? Take time for yourself. Make it a point to do things that you enjoy (gardening, walking in nature, going to a movie, etc.). ?? Take care of your physical body. Eat a balanced diet (low in saturated fat and high in fruits andvegetables) and establish an exercise plan at least 3 times a week for 30 minutes. Even mild-moderate exercise (like brisk walking) can make you feel better. Get plenty of sleep. ?? Avoid the use of alcohol and drugs to cover your emotional pain. This only slows down the emotional healing process. ?? Do not isolate yourself from others. Have daily contact with family or friends. Talk about your loss to those closest to you. ?? For additional support, meet with your galvanizing pot runner/professional shopper/rabbi, a counselor or therapist, or your owndoctor. ?? Consider joining a grief support group. Ask your doctor or our staff for information on how to find one in your area. ?? If you have been prescribed a medicine to help with your symptoms, take it only as directed. Do not use it with alcohol. Follow Up with your doctor or as advised by our staff if you feel that your grief reaction is not responding to self-help measures. You may benefit from working with a trained counselor or therapist. Get Prompt Medical Attention if any of the following occur: ?? Worsening symptoms ?? Unable to eat or sleep for three days in a row ?? Feeling extreme depression, fear, anxiety, or anger toward yourself or others ?? Feeling out of control ?? Feeling that you may try to harm yourself ?? [id number] [facility], [address] [place] [address], [place] [address]. All rights reserved. This information is not intended as a substitute for professional medical care. Always follow your healthcare professional's instructions. Health Effects of Smoking Health studies have shown that smoking can affect your heart as well as your lungs. Smoking also raises your risk of certain cancers. These are all good reasons to quit. How Smoking Affects Your Body Smoking has been linked with many serious illnesses. It also has been shown to increase signs of aging. A few of the health effects of smoking are listed below. Smoking can: ?? Increase your risk of lung cancer, bladder cancer, and cervical cancer. ?? Raise blood pressure, which increases your risk of heart attack or stroke. ?? Reduce blood flow, which can slow healing and cause wrinkles. ?? In women, cause bleeding problems, miscarriage, stillbirth, or defects. ?? In men, cause problems with erections. Facing Facts When you smoke, your breathing becomes shallow and your lungs fill with smoke. Smoking cigarettes also fills your body with chemicals, such as nicotine and tar. Smoke Cigarette smoke contains carbon monoxide. This gas takes the place of oxygen in your blood. Nicotine This drug raises your blood pressure and heart rate. It reduces blood flow to your arms and legs, and slows digestion. Tar Tar is whats left after tobacco is smoked. This sticky brown material gums up your lungs, so less oxygen gets into your bloodstream. Other Chemicals Cigarette smoke contains over 4,000 other chemicals, including formaldehyde, arsenic, and lead. Dozens of these chemicals are known to cause cancer. ?? [id number] [place] [address]. All rights reserved. This information is not [...] if you dont have one. Go to [facility]/onlineservices and click on Create Your Account. Then, follow the directions to complete the online form. Youll be asked for your [facility] number which you can find at the top of this document. Your Goals/Additional instructions: This document has images extracted. Please consider using [employer] for all your patient education needs. Source: [facility] POWERCHART Document Id: [id number] Miscellaneous - Riley Sanchez M.D. - 01/24/2015 12:23 PM CDT Ambulatory Discharge Medication List [address] [id number] Visit Information Name: SEVEN SALAZAR [facility] Number: [id number] Visit Date: 01/24/2015 12:23:25 Attending Provider: RILEY SANCHEZ MD Primary Care [...] Take Indications/Special Instructions/Comments/Notes for Patient Medication Changes/Routing aclidinium (Tudorza Pressair 400 mcg/inh inhalation powder) 1 puff(s), Inhalation, two times a day albuterol (albuterol CFC free 90 mcg/inh inhalation aerosol) 2 puff(s), Inhalation, every 4 hours asneeded for Shortness of breath / Wheezing use with spacer chamber buPROPion (Wellbutrin SR 150 mg/12 hours oral tablet, sustained release) 1 Tablet(s), Oral, two times a day New Routed to [facility] [address] [place], [place] [id number] lisinopril-hydrochlorothiazide (lisinopril-hydrochlorothiazide 20 mg-12.5 mg oral tablet) See Instructions 2 tab(s) PO Daily in AM. / (Zestoretic) pravastatin (pravastatin 40 mg oral tablet) 1 Tablet(s), Oral, once a day (at bedtime) New Routed [address] [id number] Stop Taking the Following Medications: Medication list as of 01-24-15 12:23 Attention: If you have any medications at [...] Electronically Signed By: RILEY SANCHEZ MD Signed On:24-JAN-2015 12:23:15 Additional Information: Source: [facility] POWERCHART Document Id: [id number] Miscellaneous - Chucky Duncan, L.P.N. - 01/24/2015 11:30 AM CDT Adult Director Surface Transportation Intake/History Adult Director Surface Transportation Intake/History Entered On: 01/24/2015 11:37 CDT Performed On: 01/24/2015 11:30 CDT by CHUCKY DUNCAN LPN Intake Chief Complaint : 1. Medicare Anual Wellness Visit Peripheral Pulse Rate : 76 /min Respiratory Rate : 16 /min Systolic Blood Pressure : 127 mmHg Diastolic Blood Pressure : 68 mmHg NIBP Mean : 88 mmHg Height : 172 cm(Converted to: 5 ft 8 inch(es), 68 inch(es)) Actual Weight : 100.5 kg(Converted to: 221 lb 9 oz) Weight Source : Standing scale Dosing Weight Clinic : 100.5 kg Clinic BSA : 2.19 Body Mass Index : 33.97 kg/m2 CHUCKY DUNCAN LPN - 01/24/2015 11:30 CDT General Info Information Given By : Patient Preferred Communication Mode : Verbal, Written Languages : Citizen Of [place] Is Patient Female and 13-50 no hysterectomy : No CHUCKY DUNCAN LPN - 01/24/2015 11:30 CDT Subjective Pain Symptoms : No CHUCKY DUNCAN LPN - 01/24/2015 11:30 CDT Dependent Habits Tobacco Use/Currently Using : Yes Tobacco Use/Advised to Quit : Yes Exposure to Tobacco Smoke : Patient smokes Smoking Status : Current every day smoker CHUCKY DUNCAN LPN - 01/24/2015 11:30 CDT Tobacco Use Grid Type : Cigarettes Cigarette Use Packs/Day : 0.5 CHUCKY DUNCAN LPN - 01/24/2015 11:30 CDT Caffeine Use Grid Caffeine Use : Current Type : Coffee, Tea Frequency : Daily Amount : 2 cup coffee/2 tea daily CHUCKY DUNCAN LPN - 01/24/2015 11:30 CDT Recreational Drug Use Grid Drug Use : None CHUCKY DUNCAN LPN - 01/24/2015 11:30 CDT Source: [facility] Document Id: [id number] CDT!39 Miscellaneous - Chucky Duncan, L.P.N. - 01/24/2015 11:26 AM CDT PHQ-9 PHQ-9 Entered On: 01/24/2015 11:28 CDT Performed On: 01/24/2015 11:26 CDT by CHUCKY DUNCAN LPN PHQ-9 Little interest or pleasure in doing things : Nearly every day Feeling down, depressed, or hopeless : Nearly every day Trouble falling or staying asleep, or sleeping too much : Nearly every day Feeling tired or having little energy : Nearly every day Poor appetite or overeating : Nearly every day Feeling bad about yourself or that you are a failure : Several days Trouble concentrating on things : Several days Moving or speaking slowly; restless or fidgety : Not at all Thoughts that you would be better off /hurting self : Not at all PHQ-9 Calculated Score : 17 Problems make work, home, or dealing with others : Somewhat difficult CHUCKY DUNCAN LPN - 01/24/2015 11:26 CDT [facility] Document Id: [id number] CDT!13 Miscellaneous - Chucky Duncan [email or web address].[email or web address] - 01/24/2015 11:22 AM CDT Health Assessment Health Assessment Entered On: 01/24/2015 11:25 CDT Performed On: 01/24/2015 11:22 CDT by CHUCKY DUNCAN LPN Health Assessment Complete Health Assessment Complete or Modified : Annual Health Assessment Annual Health Assessment Completed : Yes CHUCKY DUNCAN LPN - 01/24/2015 11:22 CDT Nutrition Nutrition Risk Factors by History Adult : None CHUCKY DUNCAN LPN - 01/24/2015 11:22 CDT Functional Current Daily Living Assistance : None CHUCKY DUNCAN LPN - 01/24/2015 11:22 CDT Dependent Habits Tobacco Use/Currently Using : Yes Tobacco Use/Advised to Quit : Yes Exposure to Tobacco Smoke : Patient smokes Smoking Status : Current every day smoker CHUCKY DUNCAN LPN - 01/24/2015 11:22 CDT Tobacco Use Grid Type : Cigarettes Cigarette Use Packs/Day : 0.5 CHUCKY DUNCAN LPN - 01/24/2015 11:22 CDT Caffeine Use Grid Caffeine Use : Current Type : Coffee, Tea Frequency : Daily Amount : 2 cup coffee/2 tea daily CHUCKY DUNCAN LPN - 01/24/2015 11:22 CDT Recreational Drug Use Grid Drug Use : None CHUCKY DUNCAN LPN - 01/24/2015 11:22 CDT Psychosocial Domestic Abuse Concerns : None Behavioral Health Screen/Safety Assmt : No Pentecostalism Preference : Unknown CHUCKY DUNCAN SHEMAR - 01/24/2015 11:22 CDT Advance Directive Advanced Directives : No Advance Directive Additional Information : No CHUCKY DUNCAN SHEMAR - 01/24/2015 11:22 CDT Educ Needs Learning Style Preference Adult Grid Patient : Printed materials, Verbal explanation Family : None JOSE LUISCHUCKY Sheppard SINDHU STATON - 01/24/2015 11:22 CDT Source: [facility] AcademyCH[facility] Document Id: [id number] CDT!37 documented in this encounter Plan of Treatment Upcoming Encounters Date Type Specialty Care Team Description 04/12/2022 Office Visit Cardiovascular Disease Simone Gooden, KELLY RN, C.N.P. [address] [phone] (Wo rk) documented as of this encounter Visit Diagnoses Not on filedocumented in this encounter Additional Health Concerns Assessment Noted Time PHQ-9 Depression Total Score: 17 01/24/2015 11:26 AM C DT documented as of this encounter
--- OUTSIDE RECORDS SUMMARY | 2022-03-29 07:56 | XMS_ITS | Encounter Summary ---
:1950 Author Organization [facility] Address [address] [place] [address] Care Team Providers Name Role Phone Unavailable Primary Care Provider Unavailable Encounter Details Date Type Department Care Team Description 02/13/2015 Hospital Encounter HX [facility] Jatinder Camejo M.D. [address] [place] [address] (Wo rk) Social History Tobacco [...] How often do you attend scientologist or gnosticism services? 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 - 02/13/2015 10:22 AM CDT Nurse Only Documentation Nurse Only Documentation Entered On: 02/13/2015 10:25 CDT Performed On: 02/13/2015 10:22 CDT by SHELLIE IRWIN LPN Nurse Only Documentation Nurse Only Visit Documentation : Bcg 3 of 4 last treatment patient no complaints SHELLIE IRWIN LPN - 02/13/2015 10:22 CDT Vitals/Ht/Wt Temperature Core : 36.8 DegC(Converted to: 98.2 DegF) Peripheral Pulse Rate : 88 /min Systolic Blood Pressure : 138 mmHg Diastolic Blood Pressure : 86 mmHg NIBP Mean : 103 mmHg BP Location : Left upper extremity Blood Pressure Cuff Size : Regular Height : 172 cm(Converted to: 5 ft 8 inch(es), 68 inch(es)) SHELLIE IRWIN LPN - 02/13/2015 10:22 CDT Source: [employer] Document Id: [id number] CDT!12 documented in this encounter Plan of Treatment Upcoming Encounters Date Type Specialty Care Team Description 04/12/2022 Office Visit Cardiovascular Disease Simone Gooden AP RN, C.N.P. [address] [phone] (Wo rk) documented as of this encounter Visit Diagnoses Not on filedocumented in this encounter Additional Health Concerns Assessment Noted Time PHQ-9 Depression Total Score: 17 01/24/2015 11:26 AM C DT documented as of this encounter
--- OUTSIDE RECORDS SUMMARY | 2022-03-29 07:56 | XMS_ITS | Encounter Summary ---
:1950 Author Organization [facility] Address [address] [place] [address] Care Team Providers Name Role Phone Unavailable Primary Care Provider Unavailable Encounter Details Date Type Department Care Team Description 01/10/2015 Hospital Encounter HX [facility] Tamika Camejo M.D. 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 - 01/10/2015 10:05 AM CDT [id number] CHIEF COMPLAINT/REASON FOR VISIT Bladder cancer. HISTORY OF PRESENT ILLNESS This is a 64-year-old male who has a history of grade I, stage TA, transitional cell carcinoma of the urinary bladder. He was taken to the operating room a week ago because of a recurrence. Biopsies revealed a minute focus of recurrent superficial bladder cancer on the left wall of the bladder. The patient previously had BCG. He completed his initial 6-week induction course and then was on maintenance. The patient complained to his primary physician about arthralgias and the possible relationship between these two led to his discontinuing the BCG after a total of approximately 9 treatments. The patient is of the opinion that his arthralgias did not improve or get worse as a result of the BCG and he would like to restart it. 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 PLAN: Restart BCG immunotherapy. He will need to restart induction with 6 weekly courses. We will plan on repeating office-based cystoscopy in 3 months' time. Tamika Camejo M.D./susan cc: Riley Sanchez M.D. [facility] in [address] [address] Electronically Signed By: TAMIKA CAMEJO MD On: 01/10/2015 01:39 PM Source: [facility] MHSDOLBEYNONRADSYS Document Id: [id number] documented in this encounter Miscellaneous Notes Miscellaneous - Tamika Camejo M.D. - 01/10/2015 10:34 AM CDT Ambulatory Patient Summary [facility] [address] [place], [place] [phone] Visit Information Name: SEVEN SALAZAR [facility] Number: [id number] Current Date: 01/10/2015 10:34:36 Physicians Attending Provider: TAMIKA CAMEJO MD Primary [...] breath / Wheezing use with spacer chamber lisinopril-hydrochlorothiazide (lisinopril-hydrochlorothiazide 20 mg-12.5 mg oral tablet) See Instructions 2 tab(s) PO Daily in AM. / (Zestoretic) Stop Taking the Following Medications: Medication list as of 01-10-15 10:34 Attention: If you have any medications at [...] Electronically Signed By: TAMIKA CAMEJO MD Signed On:10-JAN-2015 10:34:31 Your Allergies & Intolerances Substance Reaction Symptoms [...] Your Upcoming Appointments Date Time Location Provider 01/19/2015 08:45 [facility] 01/19/2015 09:15 [facility] Nurse Only [facility] Special Services Nurse 1 01/24/2015 11:15 [facility] Riley Sanchez MD Attention: Contact [...] if you dont have one. Go to [email or web address] and click on Create Your Account. Then, follow the directions to complete the online form. Youll be asked for your [facility] number which you can find at the top of this document. Your Goals/Additional instructions: Source: [facility] POWERCHART Document Id: [id number] Miscellaneous - Tamika Camejo M.D. - 01/10/2015 10:34 AM CDT Ambulatory Discharge Medication List [facility] [address] [place], [place] [id number] Visit Information Name: SEVEN SALAZAR [facility] Number: [id number] Visit Date: 01/10/2015 10:34:34 Attending Provider: TAMIKA CAMEJO MD Primary Care [...] breath / Wheezing use with spacer chamber lisinopril-hydrochlorothiazide (lisinopril-hydrochlorothiazide 20 mg-12.5 mg oral tablet) See Instructions 2 tab(s) PO Daily in AM. / (Zestoretic) Stop Taking the Following Medications: Medication list as of 01-10-15 10:34 Attention: If you have any medications at [...] Electronically Signed By: TAMIKA CAMEJO MD Signed On:10-JAN-2015 10:34:31 Additional Information: Source: [facility] POWERCHART Document Id: [id number] Miscellaneous - Shellie Irwin L.P.N. 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 Intake/History Entered On: 01/10/2015 10:21 CDT Performed On: 01/10/2015 10:16 CDT by SHELLIE IRWIN LPN Intake Chief Complaint : follow up results Temperature Core : 36.8 DegC(Converted to: 98.2 DegF) Peripheral Pulse Rate : 88 /min Systolic Blood Pressure : 132 mmHg Diastolic Blood Pressure : 78 mmHg NIBP Mean : 96 mmHg Height : 172 cm(Converted to: 5 ft 8 inch(es), 68 inch(es)) SHELLIE IRWIN [facility] - 01/10/2015 10:16 CDT General Info Information Given By : Patient Preferred Communication Mode : Verbal Languages : Kyrgyz Is Patient Female and 13-50 no hysterectomy : No SHELLIE IRWIN [facility] - 01/10/2015 10:16 CDT Subjective Pain Symptoms : No SHELLIE IRWIN [facility] - 01/10/2015 10:16 CDT Dependent Habits Tobacco Use/Currently Using : Yes Tobacco Use/Advised to Quit : Yes Exposure to Tobacco Smoke : Patient smokes Smoking Status : Current every day smoker SHELLIE IRWIN [facility] - 01/10/2015 10:16 CDT Tobacco Use Grid Type : Cigarettes Cigarette Use Packs/Day : 0.5 SHELLIE IRWIN [facility] - 01/10/2015 10:16 CDT Alcohol Use : Yes SHELLIE IRWIN [facility] - 01/10/2015 10:16 CDT Caffeine Use Grid Caffeine Use : Current Type : Coffee, Tea Frequency : Daily Amount : 2 cup coffee/2 tea daily SHELLIE IRWIN [facility] - 01/10/2015 10:16 CDT Recreational Drug Use Grid Drug Use : None SHELLIE IRWIN [facility] - 01/10/2015 10:16 CDT Source: [facility] POWERCHART Document Id: [id number] CDT!35 documented in this encounter Plan of Treatment Upcoming Encounters Date Type Specialty Care Team Description 04/12/2022 Office Visit Cardiovascular Disease Simone Gooden AP RN, C.N.P. [address] [phone] (Wo rk) documented as of this encounter Visit Diagnoses Not on filedocumented in this encounter Additional Health Concerns Assessment Noted Time PHQ-9 Depression Total Score: 3 01/17/2014 1:01 PM CDT documented as of this encounter
--- OUTSIDE RECORDS SUMMARY | 2022-03-29 07:56 | XMS_ITS | Encounter Summary ---
:1950 Author Organization [facility] Address [address] [place] [address] Care Team Providers Name Role Phone Unavailable Primary Care Provider Unavailable Encounter Details Date Type Department Care Team Description 01/30/2015 Hospital Encounter HX [facility] Jatinder Camejo M.D. [address] [place] [address] (Wo rk) Social History Tobacco [...] week 04/16/2019 How often do you attend judaism or episcopalian services? 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 - 01/30/2015 10:33 AM CDT Nurse Only Documentation Nurse Only Documentation Entered On: 01/30/2015 10:34 CDT Performed On: 01/30/2015 10:33 CDT by SHELLIE IRWIN LPN Nurse Only Documentation Nurse Only Visit Documentation : 2 of 3 BCG SHELLIE IRWIN LPN - 01/30/2015 10:33 CDT Vitals/Ht/Wt Temperature Core : 36.8 DegC(Converted to: 98.2 DegF) Peripheral Pulse Rate : 70 /min Systolic Blood Pressure : 110 mmHg Diastolic Blood Pressure : 68 mmHg NIBP Mean : 82 mmHg BP Location : Left upper extremity Blood Pressure Cuff Size : Regular Height : 172 cm(Converted to: 5 ft 8 inch(es), 68 inch(es)) SHELLIE IRWIN LPN - 01/30/2015 10:33 CDT Source: [facility] Document Id: [id number] CDT!12 documented in this encounter Plan of Treatment Upcoming Encounters Date Type Specialty Care Team Description 04/12/2022 Office Visit Cardiovascular Disease Simone Gooden AP RN, C.N.P. [address] [phone] (Wo rk) documented as of this encounter Visit Diagnoses Not on filedocumented in this encounter Additional Health Concerns Assessment Noted Time PHQ-9 Depression Total Score: 17 01/24/2015 11:26 AM C DT documented as of this encounter
--- OUTSIDE RECORDS SUMMARY | 2022-03-29 07:56 | XMS_ITS | Encounter Summary ---
:1950 Author Organization [facility] Address [address] [place] [address] Care Team Providers Name Role Phone Unavailable Primary Care Provider Unavailable Encounter Details Date Type Department Care Team Description 01/02/2015 Hospital Encounter HX NO MAPPING Darlene Camejo M.D. [address] [place], [place] [phone] (Wo rk) Social [...] How often do you attend restorationist or hinduism services? 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 [address] [phone] (Wo rk) documented as of this encounter Procedures Procedure Name Priority Date/Time Associated Diagnosis Comme [facility] SURGICAL PATHOLOGY Routine 01/02/2015 12:00 AM Re sults for this CDT procedure are i n the results section. SURGICAL PATHOLOGY Routine 01/02/2015 12:00 AM Re sults for this CDT procedure are i n the results section. documented in this encounter Results Pathology Surgical Pathology (01/02/2015 12:00 AM CDT) Specimen (Source) Anatomical Location Collection Method / Collectio n Time Received Time / Laterality Volume 01/02/2015 Narrative [facility] - 01/05/20 15 5:39 PM CDT Historical Provider LAB SURG PATH ORDERABLES Performing Organization Address City/[facility]/ZIP Code Phon e Number [facility] Pathology Surgical Pathology (01/02/2015 12:00 AM CDT) Specimen (Source) Anatomical Location Collection Method / Collectio n Time Received Time / Laterality Volume 01/02/2015 [facility] - 01/05/20 15 5:39 PM CDT PATIENT IMAGES Choose the Image button to view related documents. Historical Provider LAB SURG PATH ORDERABLES Performing Organization Address City/[facility]/ZIP Code Phon e Number [facility] documented in this encounter Visit Diagnoses Not on filedocumented in this encounter Additional Health Concerns Assessment Noted Time PHQ-9 Depression Total Score: 3 01/17/2014 1:01 PM CDT documented as of this encounter
--- OUTSIDE RECORDS SUMMARY | 2022-03-29 07:56 | XMS_ITS | Encounter Summary ---
:1950 Author Organization [facility] Address [address] [place] [address] Care Team Providers Name Role Phone Unavailable Primary Care Provider Unavailable Encounter Details Date Type Department Care Team Description 12/29/2014 Hospital Encounter HX [facility] Joaquín Fenton M.D. [address] [place], [place] [address] (Wo rk) Social History [...] How often do you attend lutheran or holiness services? 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 - 12/29/2014 9:43 AM CDT [id number] This is a patient of Dr. Calderon who is having a cystoscopy and potential biopsy under the aegis of Dr. Camejo on January 03. Patient has a history of bladder cancer. MEDICATIONS Lisinopril and hydrochlorothiazide 20/12.5, he takes 2 pills or 40/25 once a day. Tudorza 1 puff 2 times a day. Albuterol 2 puffs every 4 hours as needed. ALLERGIES None known to medicines. SYSTEMS REVIEW Specific presurgical review of systems: He is allergic to no known medications. He has no history ofbleeding complications or bleeding diatheses. No recent cortisone or prednisone. He has never had DVT or pulmonary emboli. No familial history of untoward reaction to anesthesia. The patient does not have glaucoma or use eyedrops. He does treat for hypertension and blood pressure is well controlled. He does not have angina, orthopnea, PND or palpitation. He has no pulmonary symptomatology currently, but he does have pulmonary disease and takes inhalers for it. Spirometry report from January 17, 2014, shows normal FEV1 to FVC ratio of 78%, and diminished FEV1 and FEC suggestive but not diagnostic of restrictive lung disease. No infective symptomatology. PAST MEDICAL/SURGICAL HISTORY He has had cystoscopies and biopsy before. He has had 2 shoulders replaced over the last 2 years without any operative complication. FAMILY HISTORY No untoward reactions to anesthesia anywhere in the family. SOCIAL HISTORY He does smoke about half a pack of cigarettes a day. PHYSICAL EXAMINATION VITAL SIGNS: Temperature is 36.8. Heart rate is 80. Respiratory rate is 16. Blood pressure 118/70. O2 saturation 97% room air. BMI 33.8. Sleep apnea score 15.0. HEENT: Eyes: Conjunctivae and lids normal. Pupils equal, round, reactive to light and accommodation.Extraocular movements normal. Sclerae nonicteric. Ophthalmologic exam grossly normal. ENT: Tympanic membranes look okay bilaterally. Nares without erythema or congestion. Mouth without erythema or exudate, no leuko or erythroplakia. [place] teeth top and bottom. Mallampati grade 3. NECK: Full extension and flexion of the neck. Carotid upstrokes brisk and without bruits. LUNGS: Clear to auscultation and percussion. Respiratory rate and effort are normal. CARDIAC: CVP is normal. Heart tones are in sinus rhythm without significant murmur, gallop or rub. ABDOMEN: Obese, soft, nondistended. No organomegaly. No focal mass or tenderness. EXTREMITIES: Warm, dry, noncyanotic. No clubbing or peripheral edema. NEUROLOGICAL: He is alert, oriented and grossly nonfocal. IMPRESSION/REPORT/PLAN Patient is [place] [employer]esthesi[employer] class 3 for surgery. He has no preoperative defectsthat require correction prior to surgery. His hypertension is well treated and so is his pulmonary disease. The instructions to the patient: 1. Medicines may be taken up through the day before surgery. 2. After midnight on the morning of surgery may take his inhalers, but otherwise be nothing by mouthand take no medication. Simply present to the hospital with an empty stomach. 3. Call promptly for any intercurrent medical illness between now and the time of surgery. 4. Any preoperative defects on his laboratories will be corrected prior to surgery. The patient did have a point of care BMP today, a CBC, a UA with micro and an EKG. These tests will be reviewed and he will be called with the results. 5. Listen very carefully to the instructions of surgeon on discharge as this will be a same-day surgery and follow them to the letter. Martha Stout M.D./susan Electronically Signed By: MARTHA STOUT MD On: 12/29/2014 10:55 AM Source: [facility] MHSDOLBEYNONRADSYS Document Id: [id number] documented in this encounter Nursing Notes Keyur Lorenz L.P.N. - 12/29/2014 1:36 PM CDT pre-op pre-op faxed to [facility] Electronically Signed By: KEYUR LORENZ LPN On: 12/29/2014 01:36 PM Source: [facility] POWERCHART Document Id: [id number] documented in this encounter Miscellaneous Notes Miscellaneous - Martha Stout M.D. - 12/29/2014 1:30 PM CDT Results Notification Document Contains Addenda Addendum by KEYUR LORENZ LPN on 29 December 2014 13:35:44 CDT called with results From: MARTHA STOUT MD To: JOSE Stout Nurse; Sent: 12/29/2014 13:30:15 CDT ! Show up: 12/29/2014 13:30:15 CDT Subject: Results Notification Actions: Notify patient of results Reminder Comments: ok Results: Date Result Name Ind Value Ref Range 12/29/2014 10:19 Hgb 15.2 g/dL (13.5 - 17.5) 12/29/2014 10:19 Hct 45.1 % (38.8 - 50.0) 12/29/2014 10:19 Hct 45.1 % (38.8 - 50.0) 12/29/2014 10:19 WBC 7.9 x10(9)/L (3.5 - 10.5) 12/29/2014 10:19 RBC 5.21 x10(12)/L (4.32 - 5.72) 12/29/2014 10:19 MCV 86.6 fL (81.0 - 95.0) 12/29/2014 10:19 RDW 14.0 % (11.8 - 15.6) 12/29/2014 10:19 Platelet 286 x10(9)/L (150 - 450) 12/29/2014 10:19 Neutro Absolute 5.27 10(9)/L (1.70 - 7.00) 12/29/2014 10:19 Lymph Absolute 1.77 x10(9)/L (0.90 - 2.90) 12/29/2014 10:19 [place] Absolute 0.82 x10(9)/L (0.30 - 0.90) 12/29/2014 10:19 Eos Absolute (L) 0.02 x10(9)/L (0.05 - 0.50) 12/29/2014 10:19 Baso Absolute 0.03 x10(9)/L (0.00 - 0.30) Source: [facility] POWERCHART Document Id: [id number] Miscellaneous - Martha Stout M.D. - 12/29/2014 10:39 AM CDT Results Notification Document Contains Addenda Addendum by KEYUR LORENZ LPN on 29 December 2014 13:34:59 CDT called with results From: MARTHA STOUT MD To: JOSE Stout Nurse; Sent: 12/29/2014 10:39:10 CDT ! Show up: 12/29/2014 10:39:10 CDT Subject: Results Notification Actions: Notify patient of results Reminder Comments: very high sugar see DR. Sanchez after surgery regarding aodm Results: Date Result Name Ind Value Ref Range 12/29/2014 10:19 Sodium Lvl (L) 135 mmol/L (138 - 146) 12/29/2014 10:19 Potassium Lvl 3.8 mmol/L (3.5 - 4.9) 12/29/2014 10:19 Chloride (L) 93 mmol/L (98 - 109) 12/29/2014 10:19 CO2 (H) 30 mmol/L (24 - 29) 12/29/2014 10:19 Glucose Lvl (H) 197 mg/dL (70 - 140) 12/29/2014 10:19 Creatinine 1.1 mg/dL (0.6 - 1.3) 12/29/2014 10:19 EGFR (MDRD) >60 mL/min/1.73m2 (>=60 - ) 12/29/2014 10:19 EGFR (MDRD) >60 mL/min/1.73m2 (>=60 - ) 12/29/2014 10:19 BUN 19 mg/dL (8 - 26) 12/29/2014 10:19 Calcium Ionized 4.7 mg/dL (4.5 - 5.3) Source: [facility] [employer] Document Id: [id number] Electronically signed by Conversion, [facility] Career Professional [id number] at 09/30/2016 1:35 AM CDT Martha Joshi M.D. - 12/29/2014 10:34 AM CDT Results Notification Document Contains Addenda Addendum by KEYUR LORENZ LPN on 29 December 2014 13:35:51 CDT called with results From: MARTHA STOUT MD To: JOSE Stout Nurse; Sent: 12/29/2014 10:34:05 CDT ! Show up: 12/29/2014 10:34:05 CDT Subject: Results Notification Actions: Notify patient of results Reminder Comments: ok Results: Date Result Name Ind Value Ref Range 12/29/2014 10:21 UA Color Yellow (Colorless - ) 12/29/2014 10:21 UA Clarity Clear (Clear - ) 12/29/2014 10:21 UA Spec Grav 1.015 12/29/2014 10:21 UA pH 7.0 (<5.0 - ) 12/29/2014 10:21 UA Protein Negative mg/dL (Negative - ) 12/29/2014 10:21 UA Glucose Negative mg/dL (Negative - ) 12/29/2014 10:21 UA Ketones Negative mg/dL (Negative - ) 12/29/2014 10:21 UA Bili Negative (Negative - ) 12/29/2014 10:21 UA Urobilinogen 1.0 mg/dL (0.2 - ) 12/29/2014 10:21 UA Blood Negative (Negative - ) 12/29/2014 10:21 UA Nitrite Negative (Negative - ) 12/29/2014 10:21 UA Leuk Est (*) Trace (Negative - ) [facility]: [facility] Document Id: [id number] Electronically signed by Conversion, [facility] Career Professional [id number] at 09/30/2016 1:35 AM CDT Martha Joshi M.D. - 12/29/2014 10:01 AM CDT Ambulatory Patient Summary [id number] [place], [place] [id number] Visit Information Name: [facility] Number: [id number] Current Date: 12/29/2014 10:01:30 Physicians Attending Provider: MARTHA STOUT MD Primary Care Provider: RILEY SANCHEZ MD [...] the Following Medications: Medication list as of 12-29-14 10:01 Attention: If you have any medications at home that are not on this list, DO NOT take them until youcontact your provider for clarification. Give a copy of your medication list to your primary care provider. Update your medication list any time medications or doses are changed and carry your medication list at all times in case of emergency. Electronically Signed By: MARTHA STOUT MD Signed On:29-DEC-2014 10:00:56 Your Allergies & Intolerances Substance Reaction Symptoms [...] [facility] Lab 01/19/2015 09:15 [facility] Nurse Only HB Special Services Nurse 1 01/24/2015 11:15 [facility] Laura DEWEY, Phunt Attention: Contact your local Clinic if further appointment detail needed. Grading of Bladder Cancer Once cancer has been diagnosed, the next step is to choose the best way to treat it. To help do this, your doctor checks what the cancer cells look like (the cancer grade). Grade: What the Cancer Cells Look Like The grade of bladder cancer is found by looking at cancer cells under a microscope. The grade is based on what the cancer cells look like and how many cells are multiplying. The higher the grade, the more uneven the cells are and the more cells are multiplying. High-grade cancers are more likely to grow and spread quickly. Knowing the grade can help your doctor predict how fast the cancer will grow and spread. keepnLow Grade Low-grade (well-differentiated) cells look relatively normal. A few of the cells vary in size. Some of the cells are multiplying. High Grade High-grade (poorly differentiated) cells are very uneven in shape. They vary widely in size. Almost all of the cells are multiplying. ?? [id number] [facility], [address] [place] [address], [place] [address]. All rights reserved. This information is not [...] you dont have one. Go to [email or web address] and click on Create Your Account. Then, follow the directions to complete the online form. Youll be asked for your [facility] number which you can find at the top of this document. Your Goals/Additional instructions: This document has images extracted. Please consider using [employer] for all your patient education needs. Source: [facility] POWERCHART Document Id: [id number] Miscellaneous - Martha Stout M.D. - 12/29/2014 10:01 AM CDT Ambulatory Discharge Medication List [address] [id number] Visit Information Name: [facility] Number: [id number] Visit Date: 12/29/2014 10:01:28 Attending Provider: MARTHA STOUT MD Primary Care Provider: RILEY SANCHEZ MD [...] the Following Medications: Medication list as of 12-29-14 10:01 Attention: If you have any medications at home that are not on this list, DO NOT take them until youcontact your provider for clarification. Give a copy of your medication list to your primary care provider. Update your medication list any time medications or doses are changed and carry your medication list at all times in case of emergency. Electronically Signed By: MARTHA STOUT MD Signed On:29-DEC-2014 10:00:56 Additional Information: Source: [facility] POWERCHART Document Id: [id number] Miscellaneous - Keyur Lorenz L.P.N. - 12/29/2014 9:51 AM CDT Obstructive Sleep Apnea Obstructive Sleep Apnea Entered On: 12/29/2014 9:52 CDT Performed On: 12/29/2014 9:51 CDT by KEYUR LORENZ LPN MICKEY Screening Known Obstructive Sleep Apnea : No - NOT diagnosed with MICKEY MICKEY Score : No qualifying data available. MICKEY Results : No qualifying data available. KEYUR LORENZ LPN - 12/29/2014 9:51 CDT MICKEY Assessment Do you have high blood pressure or have you been told to take medication for high blood pressure? : Yes Frequency of Snoring HTN : Never Frequency of Gasping, Choking, Snorting HTN : Never Total Number of Historical Features HTN : 0 Neck Circumference - MICKEY - HTN : 44/45 Total Sleep Apnea Clinical Score HTN Calc : 15 KEYUR LORENZ LPN - 12/29/2014 9:51 CDT [facility]: [facility] Document Id: [id number] CDT!12 Miscellaneous - Keyur Lorenz L.P.N. - 12/29/2014 9:48 AM CDT Adult Nurse Ortho Intake/History Adult Nurse Ortho Intake/History Entered On: 12/29/2014 9:51 CDT Performed On: 12/29/2014 9:48 CDT by KEYUR LORENZ LPN Intake Chief Complaint : pre-op Dr Hilliard 01/02/15 Temperature Core : 36.8 DegC(Converted to: 98.2 DegF) Peripheral Pulse Rate : 80 /min Respiratory Rate : 16 /min Heart Rhythm : Regular Systolic Blood Pressure : 118 mmHg Diastolic Blood Pressure : 70 mmHg NIBP Mean : 86 mmHg BP Location : Left upper extremity Blood Pressure Cuff Size : Large SpO2 : 97 % Oxygen Therapy : Room air Height : 172 cm(Converted to: 5 ft 8 inch(es), 68 inch(es)) Actual Weight : 100 kg(Converted to: 220 lb 7 oz) Weight Source : Standing scale Dosing Weight Clinic : 100 kg Clinic BSA : 2.19 Body Mass Index : 33.8 kg/m2 KEYUR LORENZ LPN - 12/29/2014 9:48 CDT General Info Information Given By : Patient Languages : Danish Is Patient Female and 13-50 no hysterectomy : No KEYUR LORENZ LPN - 12/29/2014 9:48 CDT Subjective Pain Symptoms : No KEYUR LORENZ LPN - 12/29/2014 9:48 CDT Dependent Habits Tobacco Use/Currently Using : Yes Tobacco Use/Advised to Quit : Yes Exposure to Tobacco Smoke : Patient smokes Smoking Status : Current every day smoker KEYUR LORENZ LPN - 12/29/2014 9:48 CDT Tobacco Use Grid Type : Cigarettes Cigarette Use Packs/Day : 0.5 KEYUR LORENZ PRODUCTION CLERK - 12/29/2014 9:48 CDT Alcohol Use : No KEYUR LORENZ PRODUCTION CLERK - 12/29/2014 9:48 CDT Caffeine Use Grid Caffeine Use : Current Type : Coffee, Tea Frequency : Daily Amount : 2 cup coffee/2 tea daily KEYUR LORENZ PRODUCTION CLERK - 12/29/2014 9:48 CDT Recreational Drug Use Grid Drug Use : None KEYUR LORENZ PRODUCTION CLERK - 12/29/2014 9:48 CDT Source: [facility] POWERCHART Document Id: [id number] CDT!45 documented in this encounter Plan of Treatment Upcoming Encounters Date Type Specialty Care Team Description 04/12/2022 Office Visit Cardiovascular Disease Simone Gooden AP RN, C.N.P. [phone] [phone] (Wo rk) documented as of this encounter Procedures Procedure Name Priority Date/Time Associated Comments Diagnosis URINALYSIS WITH Routine 12/29/2014 10:21 Results for this MICROSCOPIC AM CDT procedure are i n the results section. AUTOMATED Routine 12/29/2014 10:19 Results for this DIFFERENTIAL, B AM CDT procedure ar e in the results section. BASIC METABOLIC PANEL Routine 12/29/2014 10:19 Re sults for this (BMP), POCT, B AM CDT procedure are in the results section. CBC WITH Routine 12/29/2014 10:19 Results for this DIFFERENTIAL, B AM CDT procedure ar e in the results section. documented in this encounter Results (ABNORMAL) Urinalysis, Complete, Includes Microscopic (12/29/2014 10:21 AM CDT) [facility] Method Time Signature HXUr Color Yellow Colorless POWERCHART Clarity Clear Clear POWERCHART Glucose Negative Negative POWERCHART MGDL HXBILIRUBIN Negative Negative POWERCHART Ketones, QL(U) Negative Negative POWERCHART MGDL Specific 1.015 POWERCHART [place], POCT, U HXBLOOD Negative Negative POWERCHART pH, POCT, Urine 7.0 <5.0 POWERCHART Protein, Ur, Dip Negative Negative POWERCHART MGDL Urobilinogen 1.0 0.2 MGDL POWERCHART HXNITRITE Negative Negative POWERCHART Leukocyte Trace (A) Negative POWERCHART Esterase HXUR WBC. Occ-3 None Seen POWERCHART HPF HXUR RBC. Occ-2 None Seen POWERCHART HPF HXUR Bacteria, None Seen None Seen POWERCHART Squamous Occ-3 (A) None Seen POWERCHART Epithelial HPF Specimen (Source) Anatomical Collection Method Collection Time Re ceived Time Location / / Volume Laterality Urine, First 12/29/2014 10:21 Voided AM CDT Martha Stout M.D. LAB URINE ORDERABLES Performing Organization Address City/State/ZIP Code Phon e Number POWERCHART (ABNORMAL) Automated Differential (12/29/2014 10:19 AM CDT) Patholo gist Method Time Signature Absolute 5.27 1.70 - POWERCHART Neutrophils 7.00 109L Lymphocytes 1.77 0.90 - POWERCHART 2.90 X109L Monocytes 0.82 0.30 - POWERCHART 0.90 X109L Eosinophils 0.02 (L) 0.05 - POWERCHART 0.50 X109L Absolute 0.03 0.00 - POWERCHART Basophil 0.30 X109L Specimen Anatomical Collection Method Collection Time Receive d Time (Source) Location / / Volume Laterality Blood 12/29/2014 10:19 12/29/2014 AM CDT 10:19 AM CDT Martha Stout M.D. LAB BLOOD ADD-ON Performing Organization Address City/State/ZIP Code Phon e Number POWERCHART CBC with Differential (12/29/2014 10:19 AM CDT) P athologist Signature Leukocytes 7.9 3.5 - 10.5 POWERCHART X109L Erythrocytes 5.21 4.32 - 5.72 POWERCHART F1349N Hemoglobin 15.2 13.5 - 17.5 POWERCHART GDL Hematocrit 45.1 38.8 - 50.0 POWERCHART MCV 86.6 81.0 - 95.0 POWERCHART FL HX RDW 14.0 11.8 - 15.6 POWERCHART Platelet Count 286 150 - 450 POWERCHART X109L Specimen (Source) Anatomical Collection Method Collection Time Re ceived Time Location / / Volume Laterality Blood 12/29/2014 10:19 AM CDT Martha Stout M.D. LAB BLOOD ADD-ON Performing Organization Address City/State/ZIP Code Phon e Number POWERCHART BMP (Basic Metabolic Panel), POCT (12/29/2014 10:19 AM CDT) P athologist Signature Hematocrit 45.1 38.8 - 50.0 POWERCHART Specimen (Source) Anatomical Collection Method Collection Time Re ceived Time Location / / Volume Laterality Blood 12/29/2014 10:19 AM CDT Martha Stuot M.D. LAB POCT ORDERABLES - DEVICE Performing Organization Address City/State/ZIP Code Phon e Number POWERCHART documented in this encounter Visit Diagnoses Not on filedocumented in this encounter Additional Health Concerns Assessment Noted Time PHQ-9 Depression Total Score: 3 01/17/2014 1:01 PM CDT documented as of this encounter
--- OUTSIDE RECORDS SUMMARY | 2022-03-29 07:56 | XMS_ITS | Encounter Summary ---
:1950 Author Organization [facility] Address [address] [place] [address] Care Team Providers Name Role Phone Unavailable Primary Care Provider Unavailable Encounter Details Date Type Department Care Team Description 01/19/2015 Hospital Encounter HX [facility] Leta Sanchez M.D. [address] [facility], [facility] [address] [phone] Social History Tobacco Use Types Packs/Day [...] week 04/16/2019 How often do you attend zoroastrian or gnosticism services? 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 [address] [phone] (Wo rk) documented as of this encounter Procedures Procedure Name Priority Date/Time Associated Diagnosis Comme nts LIPID PANEL, S Routine 01/19/2015 8:46 AM Results for this CDT procedure are i n the results section. HEPATIC FUNCTION Routine 01/19/2015 8:46 AM Resul ts for this PANEL, S CDT procedure are i n the results section. PROSTATE-SPECIFIC Routine 01/19/2015 8:46 AM Resu lts for this AG (PSA) SCRN, S CDT procedure a re in the results section. AUTOMATED Routine 01/19/2015 8:46 AM Results f or this DIFFERENTIAL, B CDT procedure ar e in the results section. CBC WITH Routine 01/19/2015 8:46 AM Results f or this DIFFERENTIAL, B CDT procedure ar e in the results section. THYROID-STIMULATING Routine 01/19/2015 8:46 AM Re sults for this HORMONE-SENSITIVE CDT procedure are in (S-TSH) the results section. BASIC METABOLIC Routine 01/19/2015 8:46 AM Result s for this PANEL, S/P CDT procedure are i n the results section. documented in this encounter Results (ABNORMAL) Automated Differential (01/19/2015 8:46 AM CDT) Patholo gist Method Time Signature Absolute 4.51 1.70 - POWERCHART Neutrophils 7.00 109L Lymphocytes 1.90 0.90 - POWERCHART 2.90 X109L Monocytes 1.09 (H) 0.30 - POWERCHART 0.90 X109L Eosinophils 0.38 0.05 - POWERCHART 0.50 X109L Absolute 0.01 0.00 - POWERCHART Basophil 0.30 X109L Specimen Anatomical Collection Method Collection Time Receive d Time (Source) Location / / Volume Laterality Blood 01/19/2015 8:46 AM 5 8:46 CDT AM CDT Leta Sanchez M.D. LAB BLOOD ADD-ON Performing Organization Address City/State/ZIP Code Phon e Number POWERCHART CBC with Differential (01/19/2015 8:46 AM CDT) P athologist Signature Leukocytes 7.9 3.5 - 10.5 POWERCHART X109L Erythrocytes 5.25 4.32 - 5.72 POWERCHART [id number] Hemoglobin 15.5 13.5 - 17.5 POWERCHART GDL Hematocrit 45.7 38.8 - 50.0 POWERCHART MCV 87.0 81.0 - 95.0 POWERCHART FL HX RDW 13.8 11.8 - 15.6 POWERCHART Platelet Count 300 150 - 450 POWERCHART X109L Specimen (Source) Anatomical Collection Method Collection Time Re ceived Time Location / / Volume Laterality Blood 01/19/2015 8:46 AM CDT Leta Sanchez M.D. LAB BLOOD ADD-ON Performing Organization Address City/State/ZIP Code Phon e Number POWERCHART PSA (Prostate-Specific Antigen) Screen (01/19/2015 8:46 AM CDT) P athologist Signature Prostate-Specif 4.3 0.0 - 4.5 POWERCHART ic Ag NGML Specimen (Source) Anatomical Collection Method Collection Time Re ceived Time Location / / Volume Laterality Blood 01/19/2015 8:46 AM CDT Leta Sanchez M.D. LAB BLOOD ADD-ON Performing Organization Address City/State/ZIP Code Phon e Number POWERCHART Thyroid-Stimulating Hormone-Sensitive (s-TSH) (01/19/2015 8:46 AM CDT) P athologist Signature TSH 0.89 0.27 - 4.20 POWERCHART (Thyrotropin) MIUL Specimen (Source) Anatomical Collection Method Collection Time Re ceived Time Location / / Volume Laterality Blood 01/19/2015 8:46 AM CDT Leta Sanchez M.D. LAB BLOOD ADD-ON Performing Organization Address City/State/ZIP Code Phon e Number POWERCHART Lipid Panel (01/19/2015 8:46 AM CDT) P athologist Signature Calculated LDL 120 <=129 MGDL POWERCHART Comment: 2014 National Lipid Association [...] FH and FDB is available [facility]: FH/ADH Genetic Reflex [place] el (test ADHP). Acquired (non-genetic) causes of markedly increased LDL cholesterol include cholestatic liver disease due to the presence of LpX. If a genetic form of hypercholesterolemia is suspected, family studies including biochemical testing fo r lipids (total cholesterol,triglycerides, LDL cholesterol and HDL cholesterol) are recommended. ??Please contact the laboratory at or the on-line test catalog at [employer] for information about how to order these jero ts or to speak with a genetic counselor. Further interpretation would require clinical information. Total Cholesterol/HDL Ratio 3.94 PO WERCHART Cholesterol, Total 185 <=199 MGDL POWERCHART Comment: 2014 National Lipid Association recommen dations for Total Cholesterol in adults ages 18 and up: Desirable <200 mg/dL Borderline high 200-239 mg/dL High 240 mg/dL 2014 National Lipid Association recommen dations for Total Cholesterol in children ages 2 to 17. Acceptable <170 mg/dL Borderline High 170-199 mg/dL High 200 mg/dL HX HDL 47 >=40 MGDL POWERCHART Comment: 2014 National Lipid Association recommen dations for HDL-C in adults ages 18 and up: Low <40 mg/dL (Men) Low <50 mg/dL (Women) 2014 National Lipid Association recommen dations for HDL-C in children ages 2 to 17. Low <40 mg/dL Borderline Low 40-45 mg/dL Acceptable >45 mg/dL Triglycerides 89 <=149 MGDL POWERCHART Comment: 2014 National Lipid [...] risk assessment when triglycerides are >400mg/dL. HXLDL/HDL 3 POWERCHART Specimen (Source) Anatomical Collection Method Collection Time Re ceived Time Location / / Volume Laterality Blood 01/19/2015 8:46 AM [facility]T [facility] BLOOD ADD-ON Performing Organization Address City/State/ZIP Code Phon e Number POWERCHART Hepatic Function Panel (01/19/2015 8:46 AM CDT) Patholo gist Method Time Signature Alkaline 87 45 - 115 POWERCHART Phosphatase, S UNITL Alanine 12 7 - 55 POWERCHART Amniotransferase, LD UNITL Aspartate 20 8 - 48 POWERCHART Aminotransferase UNITL (AST), S Bilirubin, Direct, S <0.20 <=0.30 POWERCHAR T MGDL Bilirubin, Total, S 0.4 0.1 - 1.0 POWERCHART MGDL Total Protein, S 7.1 6.3 - 7.9 POWERCHART GDL Albumin, S 4.5 3.2 - 5.2 POWERCHART GDL HXGlobulin 3 POWERCHART Specimen (Source) Anatomical Collection Method Collection Time Re ceived Time Location / / Volume Laterality Blood 01/19/2015 8:46 AM CDT [facility] BLOOD ADD-ON Performing Organization Address City/[facility] Code Phon e Number POWERCHART (ABNORMAL) BMP (Basic Metabolic Panel) (01/19/2015 8:46 AM CDT) P athologist Signature BUN (Blood Urea 12 8 - 24 POWERCHART Nitrogen), S MGDL Chloride, S 96 (L) 98 - 107 POWERCHART MMOLL CO2 Total 29 22 - 29 POWERCHART MMOLL Creatinine 1.0 0.8 - 1.3 POWERCHART MGDL Glucose, 97 70 - 99 POWERCHART Fasting, S MGDL Calcium, Total, 9.7 8.8 - 10.3 POWERCHART S MGDL Sodium, S 137 135 - 145 POWERCHART MMOLL Potassium, S 4.2 3.6 - 5.2 POWERCHART MMOLL HXeGFR (MDRD) >60 >=60 POWERCHART [id number] eGFR >60 >=60 POWERCHART Black/ [id number] [place]ran Specimen (Source) Anatomical Collection Method Collection Time Re ceived Time Location / / Volume Laterality Blood 01/19/2015 8:46 AM CDT Leta Sanchez M.D. LAB BLOOD ADD-ON Performing Organization Address City/State/ZIP Code Phon e Number POWERCHART documented in this encounter Visit Diagnoses Not on filedocumented in this encounter Additional Health Concerns Assessment Noted Time PHQ-9 Depression Total Score: 3 01/17/2014 1:01 PM CDT documented as of this encounter
[2022-03-29 07:57] LABS: Blood Urea Nitrogen* 23 mg/dL (7-30); Calcium* 8.9 mg/dL (8.4-10.6); Carbon Dioxide* 29 mmol/L (20-32); Estimated Glomerular Filt Rate 79 ml/min; Glucose* 111 mg/dL (60-115)
--- OUTSIDE RECORDS SUMMARY | 2022-03-29 07:57 | XMS_ITS | Encounter Summary ---
:1950 Author Organization [facility] Address [address] [place] [address] Care Team Providers Name Role Phone Unavailable Primary Care Provider Unavailable Encounter Details Date Type Department Care Team Description 03/07/2014 Hospital Encounter HX [facility] Tamika Camejo M.D. 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 - 03/07/2014 2:09 PM CST CYSTO CHIEF COMPLAINT / REASON FOR [...] cm. Lateral lobes: Mild lateral lobe hypertrophy withou visual obstruction. Middle lobe: Absent. Bladder neck: Unremarkable. Bladder: Residual urine: Minimal. Ureteral orifices: Singular bilaterally, normal position on the trigone, slit- like in configurationand with clear efflux of urine noted bilaterally. Trabeculation: Mild. Foreign bodies: No evidence of stones, tumors, exophytic lesions or other foreign bodies. COMMENTS The procedure was well tolerated by the patient. He was discharged from the office in satisfactory condition. Post-cystoscopy instructions were reviewed with him. IMPRESSION / REPORT / PLAN 1. History of bladder cancer; no evidence of recurrent disease PLAN: Send urine for cytology and FISH; if negative repeat cystoscopy in 9 months. Electronically Signed By: TAMIKA CAMEJO MD On: 03/07/2014 02:12 PM Source: BPT Document Id: [id number] ISTICAL DEVELOPER documented in this encounter Miscellaneous Notes Miscellaneous - Delaney Baer P.A.-C. - 03/10/2014 4:49 PM CST Normal Results Letter 10 March 2014 SEVEN SALAZAR [address] [id number] Dear SEVEN SALAZAR, I am pleased to report that your results from the following diagnostic test(s) are normal. Please follow up with us as we discussed during your visit or sooner if you have any concerns. If you have questions or concerns, please do not hesitate to call our office. Result Name Current Result Cyto U Accn-Crumrod [id number] 03/07/2014 Cyto U FnlDiag-Crumrod See Comment 03/07/2014 Cyto U Sng Path-Crumrod See Comment 03/07/2014 Spec Desc-Crumrod See Comment 03/07/2014 UroCancer Spec-Crumrod Urine 03/07/2014 UroCancer SpecID-Crumrod 1,005,593 03/07/2014 UroCancer OrdDt-Crumrod See Comment 03/07/2014 UroCancer Method-Crumrod See Comment 03/07/2014 UroCancer Rsn-Crumrod See Comment 03/07/2014 UroCancer Rslt-Crumrod Negative. 03/07/2014 UroCancer Intrp-Crumrod See Comment 03/07/2014 UroCancer Cnslt-Crumrod See Comment 03/07/2014 UroCancer RptDt-Crumrod See Comment 03/07/2014 Sincerely, DELANEY BAER [address] [place] [id number] Electronic Signature Electronically Signed By: DELANEY BAER PAC On: 10 March 2014 This document has images extracted. Source: [facility] POWERCHART Document Id: [id number] Electronically signed by Rivka [facility] Senior Asic Design Engineer [id number] at 10/01/2016 8:57 PM CDT Miscellaneous - Delaney Baer P.A.-C. - 03/10/2014 4:39 PM CST Results Notification From: BENJAMINRYLIECEDSurya Headley PAC Sent: 03/10/2014 16:39:20 STATISTICAL DEVELOPER ! Show up: 03/10/2014 16:39:20 STATISTICAL DEVELOPER Subject: Results Notification Actions: Notify patient of results Reminder Comments: Neg Cyto/ Neg FISH Results: Date Result Name Value 03/07/2014 13:56 UroCancer Cnslt-Mas See Comment 03/07/2014 13:56 UroCancer Intrp-Mas See Comment 03/07/2014 13:56 UroCancer Method-Mas See Comment 03/07/2014 13:56 UroCancer OrdDt-Mas See Comment 03/07/2014 13:56 UroCancer RptDt-Mas See Comment 03/07/2014 13:56 UroCancer Rslt-Mas Negative. 03/07/2014 13:56 UroCancer Rsn-Mas See Comment 03/07/2014 13:56 UroCancer Spec-Mas Urine 03/07/2014 13:56 UroCancer SpecID-Mas 1,005,593 03/07/2014 13:56 Spec Desc-Mas See Comment 03/07/2014 13:56 Cyto U Accn-Mas [id number] 03/07/2014 13:56 Cyto U FnlDiag-Mas See Comment 03/07/2014 13:56 Cyto U Sng Path-Crumrod See Comment Source: [facility] POWERCHART Document Id: [id number] Electronically signed by Rivka [facility] Senior Asic Design Engineer [id number] at 10/01/2016 8:57 PM CDT Miscellaneous - Tamika Camejo M.D. - 03/07/2014 2:13 PM CST Ambulatory Patient Summary [facility] [address] [place] [id number] Visit Information Name: SEVEN SALAZAR [facility] Number: [id number] Current Date: 03/07/2014 14:13:29 Physicians Attending Provider: TAMIKA CAMEJO MD Primary [...] breath / Wheezing use with spacer chamber APAP/ASA/caffeine (Excedrin Migraine) 3 Tablet(s), Oral, once as needed for Headache calcium-vitamin D (Caltrate 600 with D 600 mg-400 intl units oral tablet) 1 Tablet(s), Oral, two times a day with food with plenty of water furosemide (furosemide 20 mg oral tablet) 1 Tablet(s), Oral, once a day (in the morning) lisinopril-hydrochlorothiazide (lisinopril-hydrochlorothiazide 20 mg-12.5 mg oral tablet) See Instructions 2 tab(s) PO Daily in AM. 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 Your Goals/Additional instructions: Source: [facility] POWERCHART Document Id: [id number] ISTICAL DEVELOPER Miscellaneous - Tamika Camejo M.D. - 03/07/2014 2:13 PM CST Ambulatory Discharge Medication List [address] [id number] Visit Information Name: SEVEN SALAZAR [facility] Number: [id number] Visit Date: 03/07/2014 14:13:27 Attending Provider: TAMIKA CAMEJO MD Primary Care [...] breath / Wheezing use with spacer chamber APAP/ASA/caffeine (Excedrin Migraine) 3 Tablet(s), Oral, once as needed for Headache calcium-vitamin D (Caltrate 600 with D 600 mg-400 intl units oral tablet) 1 Tablet(s), Oral, two times a day with food with plenty of water furosemide (furosemide 20 mg oral tablet) 1 Tablet(s), Oral, once a day (in the morning) lisinopril-hydrochlorothiazide (lisinopril-hydrochlorothiazide 20 mg-12.5 mg oral tablet) See Instructions 2 tab(s) PO Daily in AM. / (Zestoretic) Stop Taking the Following Medications: Medication list as of 03-07-14 14:13 Attention: If you have any medications at [...] Electronically Signed By: TAMIKA CAMEJO MD Signed On:07-MAR-2014 14:13:19 Additional Information: Source: [facility] POWERCHART Document Id: [id number] ISTICAL DEVELOPER Miscellaneous - Prudencio Cannon L.PBhaveshN. - 03/07/2014 1:48 PM CST Adult [facility] Intake/History Adult [facility] Intake/History Entered On: 03/07/2014 13:54 STATISTICAL DEVELOPER Performed On: 03/07/2014 13:48 STATISTICAL DEVELOPER by PRUDENCIO CANNON Intake Chief Complaint : cystoscopy Temperature Core : 36.9 DegC(Converted to: 98.4 DegF) Peripheral Pulse Rate : 84 /min Heart Rhythm : Regular Systolic Blood Pressure : 128 mmHg Diastolic Blood Pressure : 70 mmHg NIBP Mean : 89 mmHg BP Location : Right upper extremity Blood Pressure Cuff Size : Regular Height : 172 cm(Converted to: 5 ft 8 inch(es), 68 inch(es)) PRUDENCIO CANNON - 03/07/2014 13:48 STATISTICAL DEVELOPER General Info Information Given By : Patient Preferred Communication Mode : Verbal Languages : Frisian Is Patient Female and 13-50 no hysterectomy : No PRUDENCIO CANNON 03/07/2014 13:48 STATISTICAL DEVELOPER Subjective Pain Symptoms : No PRUDENCIO CANNON 03/07/2014 13:48 STATISTICAL DEVELOPER Dependent Habits Tobacco Use/Currently Using : Yes Tobacco Use/Advised to Quit : Yes Exposure to Tobacco Smoke : Patient smokes Smoking Status : Current every day smoker PRUDENCIO CANNON - 03/07/2014 13:48 STATISTICAL DEVELOPER Tobacco Use Grid Type : Cigarettes Cigarette Use Packs/Day : 0.5 Last Use : today PRUDENCIO CANNON 03/07/2014 13:48 STATISTICAL DEVELOPER Caffeine Use Grid Caffeine Use : Current Type : Coffee, Tea Frequency : Daily Amount : 2 cup coffee/2 tea daily PRUDENCIO CANNON - 03/07/2014 13:48 STATISTICAL DEVELOPER Recreational Drug Use Grid Drug Use : None PRUDENCIO CANNON 03/07/2014 13:48 STATISTICAL DEVELOPER ID Screen Drug Resistant Organism : No Travel Within Last 21 Days : No PRUDENCIO CANNON 03/07/2014 13:48 STATISTICAL DEVELOPER Source: [facility] POWERCHART Document Id: [id number] STATISTICAL DEVELOPER!41 ISTICAL DEVELOPER documented in this encounter Plan of Treatment Upcoming Encounters Date Type Specialty Care Team Description 04/12/2022 Office Visit Cardiovascular Disease Simone Gooden AP RN, C.N.P. [address] [phone] (Wo rk) documented as of this encounter Procedures Procedure Name Priority Date/Time Associated Diagnosis Comme nts UROVYSION (R) FOR Routine 03/07/2014 1:56 PM Resu lts for this BLADDER CANCER STATISTICAL DEVELOPER procedure are in the results section. CYTOLOGY, U Routine 03/07/2014 1:56 PM Results f or this STATISTICAL DEVELOPER procedure are i n the results section. documented in this encounter Results Cytology, Urine (03/07/2014 1:56 PM STATISTICAL DEVELOPER) [facility] Method Time Signature HX Spec See Comment POWERCHART [facility] Comment: RESULT: A. ??Urine, NOS: ??Received 35cc of yellow urine in PreservCyt Test Performed by: [place] [address] Payroll Technician: Randy Wooten Specimen (Source) Anatomical Collection Method Collection Time Re ceived Time Location / / Volume Laterality Urine 03/07/2014 1:56 PM STATISTICAL DEVELOPER Tamika Camejo M.D. LAB URINE ORDERABLES Performing Organization Address City/State/ZIP Code Phon e Number POWERCHART [facility] for Detection of Bladder Cancer, Urine (03/07/2014 1:56 PM STATISTICAL DEVELOPER) [facility] Method Time Signature HXUroCancer Urine POWERCHART Spec-Crumrod HXUroCancer [id number] [facility] HXUroCancer See Comment POWERCHART [facility] Comment: RESULT: 08 Mar 2014 07:48 Method See Comment POWERCHART Comment: Fluorescence in situ hybridization (FISH ) with centromere probes for chromosome 3 (D3Z1), 7 (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 HXUroCancer [facility] See Comment POWERCH ART Comment: RESULT: Rule out urothelial car cinoma [facility]Cancer ltFormerly [facility] Negative. POWERCHA RT [facility]Cancer IntrpFormerly [facility] See Comment POWER CHART Comment: No evidence of urothelial carcinoma. ??T his test result does not rule out the possibility that the pa tient may have a low grade (i.e. grade 1 or 2) non invasive p apillary urothelial carcinoma. ??Some patients with low grad e non invasive papillary urothelial carcinoma do not polanco ve abnormalities with this FISH test. In previous urinary tract specimens the results were: Date ?? %Abnormal ?Result 07/05/2013 ?? 0% ?Negative 01/25/2013 ?? 0% ?Negative 05/04/2012 ?? 0% ?Negative 10/07/2011 ?? 0% ?Negative 02/25/2011 ?? 0% ?Negative HXUroCancer Cnslt-Crumrod See Comment POWER CHART Comment: RESULT: Jillian Lora MD HXUroCancer RptDt-Crumrod See Comment POWER CHART Comment: RESULT: 10 Mar 2014 16:11 Test Performed by: [place] [address] Payroll Technician: Randy Wooten Specimen (Source) Anatomical Collection Method Collection Time Re ceived Time Location / / Volume Laterality Urine 03/07/2014 1:56 PM STATISTICAL DEVELOPER Tamika Camejo M.D. LAB GENETIC TESTING Performing Organization Address City/State/ZIP Code Phon e Number POWERCHART documented in this encounter Visit Diagnoses Not on filedocumented in this encounter Additional Health Concerns Assessment Noted Time PHQ-9 Depression Total Score: 3 01/17/2014 1:01 PM CDT documented as of this encounter
--- OUTSIDE RECORDS SUMMARY | 2022-03-29 07:57 | XMS_ITS | Encounter Summary ---
:1950 Author Organization [facility] Address [address] [place] [address] Care Team Providers Name Role Phone Unavailable Primary Care Provider Unavailable Encounter Details Date Type Department Care Team Description 04/30/2013 Hospital Encounter HX [facility] Riley Jimenez M.D. [address] [facility], [facility] [address] [id number] [phone] Social History Tobacco Use Types Packs/Day [...] How often do you attend jewish or holiness services? Never 04/16/2019 Do you [...] Date Recorded Male 06/28/2019 8:47 AM SUPERVISOR MOLDING documented as of this encounter Last Filed Vital Signs Vital Sign Reading Time Taken Comments Blood Pressure 118/60 04/30/2013 12:58 PM SUPERVISOR MOLDING Pulse 89 04/30/2013 12:58 PM SUPERVISOR MOLDING Temperature - - Respiratory Rate 20 04/30/2013 12:58 PM SUPERVISOR MOLDING Oxygen Saturation - - Inhaled Oxygen Concentration - - Weight 102 kg (225 lb 15.5 oz) 04/30/2013 12:58 PM SUPERVISOR MOLDING Height 173 cm (5' 8.11) 04/30/2013 12:58 PM SUPERVISOR MOLDING Body Mass Index 34.25 04/30/2013 12:58 PM SUPERVISOR MOLDING documented in this encounter H&P Notes Phyo, Phunt, M.D. - 04/30/2013 12:43 PM CST [id number] CHIEF COMPLAINT/REASON FOR VISIT This is a preoperative medical evaluation requested by Semaj Acuña MD orthopedic [facility]. HISTORY OF PRESENT ILLNESS Mr. Salazar is a 63-year-old man who came in today for preoperative medical evaluation. He has been followed with Dr. Semaj Acuña, orthopedic for bilateral shoulder pain. He has more problem with right shoulder than the left. He was seen by Dr. Acuña; he had MRI of right shoulder. He was advised to proceed with shoulder surgery. I do not have any record from [facility]. He believes he is going to have shoulder replacement surgery. We contacted [facility],request information to be sent to my office. He saw Dr. Acuña on December 24, 2012. He had MRI of right shoulder on December 28, 2012. MRI showed moderate supraspinatus, infraspinatus and subscapularis tendinopathy. There was no evidence of discrete tear. He has severe osteoarthritis of glenohumeral joint. Moderately advance AC joint arthrosis with moderate inferior hypertrophic changes. Intra-articularbiceps tendinosis. As per Dr. Acuña progress note, most likely he is scheduled to have total shoulder arthroplasty. Patient lives in [place], surgery was scheduled in [facility]. Patient discussed with Dr. Acuña regarding risks, benefits, alternative therapy. He is willing to proceed because benefits outweigh the risks. He has had surgical operations in the past. There was no armond- or postoperative complications. He denies history of hepatitis, jaundice, bleeding tendencies blood transfusions or drug resistant infection. He did not use steroid long time. Patient smoke tobacco. He does not use bronchodilator therapy. Recently he get over cold. There was no exertional chest pain, short of breath, orthopnea, paroxysmal nocturnal dyspnea palpitations, peripheral edema. There was no chest congestion, wheezing. He does not have fever or chills. He has been eating, no nausea, vomiting, abdominal pain. There was no dysuria or hematuria. He has been followed with Jatinder Camejo M.D. urologist for recurrent urinary bladder cancer. MEDICATIONS 1. Albuterol inhaler 2 puffs 4 times a day as needed. 2. Combivent inhaler 1 puff 4 times a day. 3. Lisinopril/hydrochlorothiazide 20 mg/12.5 mg 2 tablets by mouth daily in the morning. 4. Calcium with vitamin D 1 tablet by mouth twice a day. ALLERGIES No known drug allergies. SYSTEMS REVIEW As per the history of present illness. Other systems are reviewed and are negative. PAST MEDICAL/SURGICAL HISTORY 1. History of right kidney cyst per ultrasound, 10/21/2011. 2. 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 3. History of hypokalemia. 4. Obesity. 5. Tobacco use. 6. History of partial complex seizures, currently asymptomatic. 7. History of migraine headache. 8. Hypertension. 9. History of enteritis, esophagitis, and peptic ulcer. 10. History of duodenitis, gastroesophageal reflux disease, 2 cm hiatal hernia. 11. Diverticulosis. 12. Degenerative joint disease of the shoulder. 13. Degenerative joint disease of knee joint. 14. Degenerative disk disease of cervical spine and lumbar spine. 15. History of polymyalgia rheumatica. 16. Insomnia. 17. Elevated sedimentation rate. 18. Status post appendectomy, 1967. 19. 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 20. Status post left C5-C6 foraminotomy and hemilaminectomy, left C6-C7 foraminotomy and hemilaminectomy and diskectomy, 05/31/1999. 21. Status post lipoma excision from back, 07/16/1999. 22. Status post right cataract extraction, 08/16/2008. 23. Status post right cataract extraction, 2008. 24. Status post excision of lipoma from anterior abdominal wall, 02/19/2010. 25. Status post transurethral resection of bladder tumor, 02/19/2010. 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 26. Status post esophagogastroduodenoscopy, 11/25 1012. 27. Status post colonoscopy, 11/26/2011. 28. Status post cystoscopy with biopsy of urinary bladder lesions 02/01/2013. PREVENTIVE SERVICES: Reviewed and updated as per the EMR. SOCIAL HISTORY He is single. He lives alone. He smokes cigarettes. He denies alcohol or drug abuse. He does not do exercise but he is physically active. He is still working at [employer] [place], [place]. FAMILY HISTORY Asthma in brother. Father had liver and pancreas cancer, lung cancer in sister. Mother has cataract and glaucoma, hearing loss in father. Hypertension in mother and brother. Parkinson disease in father. VITAL SIGNS HEIGHT: 173 cm. WEIGHT: 102.5 kg. BMI: 34.25. TEMPERATURE: 36.6. PULSE: 89. RESPIRATIONS: 20. OXYGEN SATURATION: 95% room air. BLOOD PRESSURE: 118/60, left arm, sitting. PHYSICAL EXAMINATION GENERAL: Patient is sitting. No distress. Able to talk without interruption. SKIN: No rash, bruise or nodules. HEAD: No facial rash, asymmetry or sinus tenderness. EYES: PERRLA. EOMI. No pallor, icterus or conjunctivitis. Status post cataract extractions. ENT: No nasal congestion, discharge or bleeding. There is no ear infection or discharge. No mastoid tenderness. Tongue is moist and midline. No oral lesions. LYMPH NODES: No cervical or supraclavicular lymphadenopathy. THYROID: No thyromegaly. No thyroid thrill or bruit. BREASTS: No nipple discharge or retraction. No palpable breast mass or tenderness. PERIPHERAL VESSELS: Good radial, femoral and pedal pulses. HEART: No carotid bruit. No JVD. Regular rhythm. There is no S3, gallop, murmur or thrill. LUNGS: Normal respiratory effort. Clear to auscultation. Normal percussion. ABDOMEN: Moves with respiration. Bowel sounds present. Soft. No rebound tenderness, guarding or rigidity. No organomegaly. JOINTS: He has discomfort in shoulder joints with active and passive movement with decreased range of motion. EXTREMITIES: No clubbing, cyanosis, edema, infection or calf tenderness. GAIT: No abnormal gait. MENTAL: Alert and oriented x 3. Normal mood and affect. NEURO: Intact cranial nerves intact sensory and motor grossly nonfocal exam. IMPRESSION/REPORT/PLAN 1. Preoperative medical evaluation prior to right shoulder arthroplasty. He is stable from cardiac and respiratory standpoint. There is no absolute contraindication for planned procedure. He discussed with Dr. Semaj Acuña regarding risk, benefits, alternative therapy. He is willing to proceed because benefits outweigh the risks. He had EKG done on December 10, 2012, which shows sinus rhythm with sinus arrhythmia. Ventricular rate 86 beat per minute, no acute changes. According to patient he is goingto have blood test done at [facility] on May 03, 2013, because of that there was no blood test was obtained today. He should have nothing by mouth after May 06, 2013, midnight. He should take Combivent inhaler along with lisinopril/hydrochlorothiazide in the morning of surgery with sip of water. Need to closely monitor oxygen saturation armond- and postoperative period closely. He should restart all the medications following after surgery. Advised him not to take aspirin, asit-[id number]-[id number] NSAIDs for the time being. 2. Hypertension. Blood pressure is controlled. He is stable from cardiac standpoint. 3. Tobacco use. He continues to smoke cigarettes. He was advised to quit. He is not ready to quit atthis point. Advised him to use bronchodilator therapy regularly. 4. Gastroesophageal reflux disease. Currently he does not have symptoms. 5. Skin lesions on left nasolabial fold. Patient will be referred to Ivan Lieberman M.D. [facility] for excisional biopsy. All of his questions were answered. Thank you for allowing me to participate in care of this patient. Riley Sanchez M.D./brian cc: [facility] [place] Semaj Acuña M.D. [address] [place] [address]. [place] [address] Electronically Signed By: RILEY SANCHEZ MD On: 04/30/2013 03:28 PM Modified by and Electronically Signed by: RILEY SANCHEZ MD On: 04/30/2013 03:28 PM Source: [facility] MHSDOLBEYNONRADSYS Document Id: [id number] RVISOR MOLDING documented in this encounter Miscellaneous Notes Miscellaneous - Sanaz Singh R.N. - 11/24/2013 10:15 AM CDT *Medication Refill Msg Document Contains Addenda Addendum by RILEY SANCHEZ MD on 25 November 2013 12:06:41 CDT From: RILEY SANCHEZ MD To: SANAZ SINGH; Sent: 11/25/2013 12:06:41 CDT Subject: RE: *Medication Refill Msg Actions: Notify patient- refer to General Message OK. Please see below for new Rx. Addendum by RILEY SANCHEZ MD on 25 November 2013 12:06:25 CDT Submitted: Order:lisinopril-hydrochlorothiazide (lisinopril-hydrochlorothiazide 20 mg-12.5 mg oral tablet) See Instructions 2 tab(s) PO Daily in AM. Dose increased on 08/31/2012. Qty: 180 tab(s) Refills: 3 Substitutions Allowed Route To Pharmacy - [facility] #[id number] (Zestoretic) Signed by RILEY SANCHEZ MD 11/25/2013 12:06:05 From: SANAZ SINGH To: RILEY SANCHEZ MD; Sent: 11/24/2013 10:15:49 CDT Subject: *Medication Refill Msg Caller is: ( ) Patient ( ) Mother ( ) Father ( ) Spouse ( ) Daughter ( ) Son ( ) Pharmacy ( ) Other: Provider: Pharmacy:[facility] Name of Medications Needing Refill:lisinpril-HCTZ - patient wants rx transferred to [facility] Last Refill Date: Additional Information:on 08-31-12 you stated you increased his lisinopril -HCTZ 20-25mg 1.5 tabs daily to lisinopril -HCTZ 20-12.5 tabs - 2 tabs daily in am. wouldn't that be lisinpril - HCTZ 30-37.5 to lisinopril -HCTZ 40 -25. Last / Future Appointment: Disposition: ( ) Send to Pharmacy ( ) Call to Pharmacy ( ) Patient will grape picker Script ( ) Mail Rx to Patient Source: [facility] POWER[facility]ART Document Id: [id number] Electronically signed by Conversion, [facility] [employer] Channeler [id number] at 10/02/2016 8:37 PM CDT Miscellaneous - Conversion, Historical Provider Ser - 05/04/2013 1:29 PM SUPERVISOR MOLDING General Message From: CLEO MAJOR LPN To: RLIEY SANCHEZ MD; Sent: 05/04/2013 13:29:58 SUPERVISOR MOLDING Subject: General Message [facility] [place] Pre-op has been faxed to Dr. Acuña at [phone] and the [facility] Pre-op Dept. at [phone]. This has also been given to Mary Means [facility] Document Id: [id number] Miscellaneous - Riley Sanchez M.D. - 04/30/2013 1:17 PM CST Work Excuse 30 April 2013 SEVEN SALAZAR [address] [place] [phone] Dear SEVEN SALAZAR, You were examined in my office on: 04/30/2013 Reason for work excuse: Medical Illness ( X ) Yes ( _ ) No Injury ( _ ) Yes ( X ) No Is excused from all work: ( X ) Yes ( _ ) No Has work limitations: ( _ ) Yes ( _ ) No As follows: _ Limitations apply until: _ Follow-Up Appointment : ( After Shoulder surgery. ) Return to Work date: _ Notes: _ Sincerely, RILEY SANCHEZ [address] [place] [address] Electronic Signature Electronically Signed By: RILEY SANCHEZ MD On: 30 April 2013 This document has images extracted. Source: [facility] Document Id: [id number] Electronically signed by Conversion, [facility] [employer] Channeler [id number] at 10/02/2016 8:37 PM CDT Miscellaneous - Conversion, Historical Provider Ser - 04/30/2013 12:58 PM SUPERVISOR MOLDING Adult Consulting Practice Director Intake/History Adult Consulting Practice Director Intake/History Entered On: 04/30/2013 13:01 SUPERVISOR MOLDING Performed On: 04/30/2013 12:58 SUPERVISOR MOLDING by CLEO MAJOR LPN Intake Chief Complaint : Pre-op visit for surgery on 05-07-13. Temperature Core : 36.6 DegC(Converted to: 97.9 DegF) Peripheral Pulse Rate : 89 /min Respiratory Rate : 20 /min Systolic Blood Pressure : 118 mmHg Diastolic Blood Pressure : 60 mmHg NIBP Mean : 79 mmHg BP Location : Left upper extremity Blood Pressure Cuff Size : Thigh SpO2 : 95 % Oxygen Therapy : Room air Height : 173 cm(Converted to: 5 ft 8 inch(es), 68.11 inch(es)) Actual Weight : 102.5 kg(Converted to: 226 lb 0 oz) Weight Source : Standing scale Dosing Weight Clinic : 102.5 kg Clinic BSA : 2.22 Body Mass Index : 34.25 kg/m2 CLEO MAJOR ANGIE STATON - 04/30/2013 12:58 SUPERVISOR MOLDING General Info Information Given By : Patient Languages : Occitan CLEO MAJOR SHEMAR - 04/30/2013 12:58 SUPERVISOR MOLDING Subjective Pain Symptoms : Yes CLEO MAJOR ANGIE SHEMAR - 04/30/2013 12:58 SUPERVISOR MOLDING Pain Pain Assessment Grid Pain 1 Location : Generalized CLEO MAJOR ANGIE STATON - 04/30/2013 12:58 SUPERVISOR MOLDING Dependent Habits Tobacco Use/Currently Using : Yes Exposure to Tobacco Smoke : Patient smokes Smoking Status : Current every day smoker CLEO MAJOR ANGIE STATON - 04/30/2013 12:58 SUPERVISOR MOLDING Tobacco Use Grid Type : Cigarettes Cigarette Use Packs/Day : 0.5 Last Use : today CLEO MAJOR ANIGE STATON - 04/30/2013 12:58 SUPERVISOR MOLDING Caffeine Use Grid Caffeine Use : Current Type : Coffee, Tea Frequency : Daily Amount : 2 cup coffee/2 tea daily CLEO MAJOR ANGIE STATON - 04/30/2013 12:58 SUPERVISOR MOLDING Recreational Drug Use Grid Drug Use : None CLEO MAJOR ANGIE STATON - 04/30/2013 12:58 SUPERVISOR MOLDING Source: [facility] Document Id: [id number] SUPERVISOR MOLDING!46 Miscellaneous - Alessandra Marie L.P.NBhavesh - 04/29/2013 11:41 AM CST PHQ-9 Document Contains Addenda Addendum by ALESSANDRA MARIE LPN on 01 June 2013 07:48:38 SUPERVISOR MOLDING Seven has appointment on 06/14/[address] Sanchez will complete a PHQ-9 at that time. Addendum by CLEO MAJOR LPN on 19 May 2013 13:57:41 SUPERVISOR MOLDING From: CLEO MAJOR LPN To: ALESSANDRA MARIE LPN; Sent: 05/19/2013 13:57:41 SUPERVISOR MOLDING Show up: 05/19/2013 13:57:00 SUPERVISOR MOLDING Subject: RE: PHQ-9 Alessandra, could you route this to someone else? Thanks. Addendum by CLEO MAJOR LPN on 18 May 2013 09:12:00 SUPERVISOR MOLDING No answer , message left to call back. From: ALESSANDRA MARIE LPN To: CLEO MAJOR LPN; Sent: 04/29/2013 11:41:14 SUPERVISOR MOLDING Show up: 05/14/2013 11:41:00 SUPERVISOR MOLDING Subject: PHQ-9 Due Date/Time: 06/12/2013 11:40:00 SUPERVISOR MOLDING Please Remember to: PHQ-9 due within 30 days of 06/12/2013. Can be done by phone. If patient scores 9 or greater advise a follow up with provider. PATIENT: ( x ) Call Patient ( ) Ask Patient to ( ) ( ) Call Relative ( ) Schedule Patient ( ) ( ) Call for Tree Faller ( ) Follow up on Results ( ) Other: PROVIDER: ( ) Call Physician ( ) Call Pharmacist ( ) Call Lab ( ) Other: Special Instructions: Comments: Source: [facility] Document Id: [id number] Electronically signed by Rivka, [facility] [employer] Channeler [id number] at 10/02/2016 8:37 PM CDT documented in this encounter Plan of Treatment Upcoming Encounters Date Type Specialty Care Team Description 04/12/2022 Office Visit Cardiovascular Disease Simone Gooden AP RN, C.N.P. [address] [place] [address] [phone] (Wo rk) documented as of this encounter Visit Diagnoses Not on filedocumented in this encounter Additional Health Concerns Assessment Noted Time PHQ-9 Depression Total Score: 12 12/10/2012 8:45 AM CD T documented as of this encounter
--- OUTSIDE RECORDS SUMMARY | 2022-03-29 07:57 | XMS_ITS | Encounter Summary ---
:1950 Author Organization [facility] Address [address] [place] [address] Care Team Providers Name Role Phone Unavailable Primary Care Provider Unavailable Encounter Details Date Type Department Care Team Description 05/09/2014 Hospital Encounter HX [facility] FB Riley Jimenez M.D. [address] [facility], [facility] [address] [phone] Social History Tobacco Use Types Packs/Day [...] How often do you attend amish or congregational services? Never 04/16/2019 Do you belong to [...] at Date Recorded Male 06/28/2019 8:47 AM CMV DRIVER documented as of this encounter Last Filed Vital Signs Vital Sign Reading Time Taken Comments Blood Pressure 144/70 05/09/2014 11:57 AM CMV DRIVER Pulse - - Temperature - - Respiratory Rate 16 05/09/2014 11:23 AM CMV DRIVER Oxygen Saturation - - Inhaled Oxygen Concentration - - Weight 101 kg (222 lb 10.6 oz) 05/09/2014 11:23 AM CMV DRIVER Height 174.5 cm (5' 8.7) 05/09/2014 11:57 AM CMV DRIVER Body Mass Index 33.17 05/09/2014 11:23 AM CMV DRIVER documented in this encounter H&P Notes Riley Sanchez M.D. - 05/09/2014 11:14 AM CST [id number] CHIEF COMPLAINT/REASON FOR VISIT Proposed surgery date: 05/17/2014. Surgeon: Dr. Acuña. Proposed surgery: Left shoulder arthroplasty. Location: [facility]. HISTORY OF PRESENT ILLNESS Mik is a 64-year-old male who presents to the clinic today for a preanesthetic medical evaluation. Neto asked by Dr. Acuña to assess whether Seven Salazar is an adequate candidate for anesthesia for left shoulder arthroplasty on 05/17/2014. He had right shoulder arthroplasty on 05/07/2013. The patient denies any chest pain, shortness of breath, dizziness, lightheadedness, or paroxysmal nocturnal dyspnea. He has occasional wheezing. Patient denies any personal or family history intolerance to general anesthesia. There have been no complications during or after previous surgeries. He denies any reaction to blood transfusions. There is no personal history of hepatitis, jaundice, bleeding disorder, or drug resistant infection. His blood pressure is high today. He has been taking medication regularly. His blood pressure has been around 115/76 mmHg at home. His TSA clinical score was 29 today. We need to monitor his oxygen saturation during and after surgery. He should hold NSAIDs and Excedrin migraine 7 days before surgery. He should be NPO the night before surgery. He can take Lisinopril with a sip of water the morning of surgery. We will restart all medication after surgery. His BMP and CBC results from today were unremarkable. I reviewed and updated his medication list. Wediscussed potential side effects. There are no further concerns at this time. MEDICATIONS Tudorza Pressair 1 puff inhalation twice daily. Albuterol inhaler 2 puffs 4 times a day as needed. Excedrin Migraine 3 tablets by mouth as needed for headache. Calcium with vitamin D 600 mg/400 units 1 tablet by mouth twice a day. Furosemide 20 mg by mouth daily in the morning. Lisinopril/hydrochlorothiazide 20 mg/12.5 mg 2 tablets by mouth daily in the morning. ALLERGIES No known drug allergies. SYSTEMS REVIEW [...] bladder biopsy 02/01/2013. Status post right shoulder arthroplasty 05/07/2013. Status post excision of skin lesion on dermal nevus on left cheek/nasolabial fold 06/04/2013. PREVENTATIVE SERVICES Colonoscopy: 11/26/2011. PSA: 12/10/2012. Pneumovax: 01/17/2014. Tetanus booster: 02/12/2010. Influenza: 03/04/2014. Zostavax: N/A. SOCIAL HISTORY He is single. He lives alone. He smokes cigarettes. He denies drug abuse. He drinks alcohol twice a month. He does not do exercise but he is physically active. He is still working at [employer] in [place], [place]. FAMILY HISTORY Asthma in brother. Father had liver, lung, and pancreas cancer. Lung cancer in sister. Mother has cataract and glaucoma. Hearing loss in father. Hypertension in mother and brother. Parkinsons disease in father. VITAL SIGNS HEIGHT: 174.5 cm. WEIGHT: 101 kg. BMI: 33.17 kg/m2. PULSE: 64 /min. RESP: 16 /min. O2SAT: 97%. SYSTOLIC: 170 mmHg. DIASTOLIC: 89 mmHg. SR: 175/85 mmHg. TR: 144/70 mmHg. PHYSICAL EXAMINATION GENERAL: Patient is sitting. No distress. Able to talk without interruption. HEAD: No facial rash, asymmetry or sinus tenderness. EYES: PERRLA. EOMI. No pallor, icterus or conjunctivitis. He has bilateral cataract surgery. ENT: No nasal congestion, discharge or bleeding. There is no ear infection or discharge. He has somewax in right ear. No mastoid tenderness. Tongue is moist and midline. No oral lesions. LYMPH NODES: No cervical or supraclavicular lymphadenopathy. THYROID: No thyromegaly. No thyroid thrill or bruit. PERIPHERAL VESSELS: Good radial, femoral and pedal pulses. HEART: No carotid bruit. No JVD. Regular rhythm. There is no S3, gallop, murmur or thrill. LUNGS: Normal respiratory effort. Clear to auscultation. Normal percussion. ABDOMEN: Moves with respiration. Bowel sounds present. Soft. No rebound tenderness, guarding or rigidity. No organomegaly. JOINTS: No joint swelling or deformity. He has decreased range of motion in left shoulder. EXTREMITIES: No clubbing, cyanosis, edema, infection or calf tenderness. MENTAL: Alert and oriented x 3. Normal mood and affect. NEURO: Grossly nonfocal. IMPRESSION/REPORT/PLAN 1. Preoperative medical evaluation prior to left shoulder arthroplasty on 05/17/2014. The patient isstable from a cardiac and respiratory standpoint. There is no absolute contraindication for planned procedure. They discussed with Dr. Acuña regarding risks, benefits, alternative therapy. He is willing to proceed because the benefits outweigh the risks. EKG was last done on 01/17/2014 which shows normal sinus rhythm with frequent premature atrial complexes and right bundle branch block. Ventricularrate was 77 bpm, no acute changes. We need to monitor his oxygen saturation during and after surgery. He should hold NSAIDs and Excedrin migraine 7 days before surgery. He should be NPO the night before surgery. He can take Lisinopril with a sip of water the morning of surgery. We will restart all medication after surgery. 2. Hypertension. Blood pressure is high, possibly secondary to left should pain. Otherwise, he is stable from a cardiac standpoint. Advised to continue sodium controlled diet and current medication. Blood pressure goal is less than 140/90 mmHg. Need to continue cardiovascular risk factors modification. 3. Chronic bronchitis. It is improved. Patient is stable from respiratory standpoint. He needs to use inhaler regularly. He needs to quit smoking. Todays studies: BMP and CBC. He will be notified with results. I do thank Dr. Acuña for allowing me to participate in care of this patient. Please send copy to Dr. Acuña and [facility]. The patient will return to the clinic as previously scheduled. This document serves as a record of services personally performed by Dr. Riley Sanchez. It was created on their behalf by Juan Ramos, a trained nuclear medical tech. The creation of this record is based on the scribe's personal observations and the provider's statements to them. This document has been checked and approved by the attending provider. Riley Sanchez M.D./arti Electronically Signed By: RILEY SANCHEZ MD On: 05/15/2014 06:04 PM Modified by and Electronically Signed by: RILEY SANCHEZ MD On: 05/15/2014 06:04 PM Source: [facility] MHSDOLBEYNONRADSYS Document Id: [id number] DRIVER documented in this encounter Nursing Notes Mattie Pacheco - 09/01/2014 9:22 AM CDT panel management Pt had elevated BP on last visit. Attempted to contact pt to offer a no-cost nurse visit for BP check. Message left for pt to return call. Electronically Signed By: MATTIE PACHECO RATE AND COST ANALYST On: 09/01/2014 09:24 AM Source: [facility] POWERCHART Document Id: [id number] Chucky Duncan L.P.N. - 05/09/2014 4:19 PM CST Pre-op Dictation from 05/09/2014, EKG, and lab results faxed to [facility] for patient's upcoming surgery. Electronically Signed By: CHUCKY DUNCAN LPN On: 05/09/2014 04:22 PM Source: [facility] POWERCHART Document Id: [id number] DRIVER documented in this encounter Miscellaneous Notes Miscellaneous - Beatriz Jones R.N. - 10/07/2014 3:02 PM CDT lasix Document Contains Addenda Addendum by JOSÉ ANTONIO HOWARD on 07 October 2014 15:56:20 CDT From: JOSÉ ANTONIO HOWARD ( [facility] [employer]) To: [facility] [address] [employer]; Sent: 10/07/2014 15:56:20 CDT Subject: FW: lasix Patient has been scheduled for follow up Addendum by DAVINA SINGH on 07 October 2014 15:34:52 CDT From: DAVINA SINGH ( [facility]) [facility]; Sent: 10/07/2014 15:34:52 CDT Subject: FW: meliza please call patient to make a followup appointment with Dr. Laura thomas. Addendum by RILEY SANCHEZ MD on 07 October 2014 15:15:23 CDT From: RILEY SANCHEZ MD To: [facility]; Sent: 10/07/2014 15:15:23 CDT Subject: RE: lasvida Actions: Notify patient- refer to General Message, Notify patient of Future Order Please see below for new Rx. Also call him and remind him to make follow up appointment. Addendum by RILEY SANCHEZ MD on 07 October 2014 15:14:49 CDT Submitted: Order:furosemide (furosemide 20 mg oral tablet) 1 tab(s) PO Daily AM Needs follow up appointment. Qty: 30 tab(s) Refills: 0 Substitutions Allowed Route To Pharmacy - [facility] #[id number] Signed by RILEY SANCHEZ MD 10/07/2014 15:14:28 From: BEATRIZ JONES ( [facility]) To: RILEY SANCHEZ MD; Sent: 10/07/2014 15:02:36 CDT Subject: lasix Caller is: ( ) Patient ( ) Mother ( ) Father ( ) Spouse ( ) Daughter ( ) Son ( silva/carlos ) Pharmacy ( ) Other: Provider: laura Pharmacy: Name of Medications Needing Refill: lasix 20 mg Last Refill Date: 02/24/14 qty 14 Additional Information: 1 tab po daily...Pt has not refilled since feb. this was first time you gaveto him...Do you want him to continue. Last / Future Appointment: 05/09/14 Disposition: (x ) Send to Pharmacy ( ) Call to Pharmacy ( ) Patient will pharmacy picking tech Script ( ) Mail Rx to Patient Source: [facility] POWERCHART Document Id: [id number] Electronically signed by Conversion, [facility] Consultant Nurse [id number] at 09/29/2016 8:48 PM CDT Miscellaneous - Riley Sanchez M.D. - 05/13/2014 8:46 AM CST Lab from 05/09/2014 Document Contains Addenda Addendum by CHUCKY DUNCAN LPN on 13 May 2014 09:36:25 CMV DRIVER Patient informed of results. Information has already been sent to [facility]. From: RILEY SANCHEZ MD To: JOSE Sanchez Nurse; Sent: 05/13/2014 08:46:27 CMV DRIVER Show up: 05/13/2014 08:46:00 CMV DRIVER Subject: Lab from 05/09/2014 Actions: Notify patient of results Please call. BMP and CBC are OK. Please fax results to hospital for Pre-op. Results: Date Result Name Ind Value Ref Range 05/09/2014 12:10 Sodium Lvl 138 mmol/L (135 - 145) 05/09/2014 12:10 Potassium Lvl 4.4 mmol/L (3.5 - 4.8) 05/09/2014 12:10 Chloride (L) 97 mmol/L (100 - 108) 05/09/2014 12:10 CO2 (H) 34 mmol/L (22 - 30) 05/09/2014 12:10 Glucose Lvl 106 05/09/2014 12:10 Creatinine 0.9 mg/dL (0.9 - 1.4) 05/09/2014 12:10 EGFR (MDRD) >60 mL/min 05/09/2014 12:10 EGFR (MDRD) >60 mL/min/1.73m2 (>=60 - ) 05/09/2014 12:10 BUN 18 mg/dL (7 - 23) 05/09/2014 12:10 Calcium Lvl 10.4 mg/dL (8.5 - 10.5) 05/09/2014 12:10 Hgb 16.1 g/dL (13.5 - 17.5) 05/09/2014 12:10 Hct 47.7 % (38.8 - 50.0) 05/09/2014 12:10 WBC 7.8 x10(9)/L (3.5 - 10.5) 05/09/2014 12:10 RBC 5.48 x10(12)/L (4.32 - 5.72) 05/09/2014 12:10 MCV 87.0 fL (81.0 - 95.0) 05/09/2014 12:10 RDW 13.8 % (11.8 - 15.6) 05/09/2014 12:10 Platelet 263 x10(9)/L (150 - 450) 05/09/2014 12:10 Neutro Absolute 4.67 10(9)/L (1.70 - 7.00) 05/09/2014 12:10 Lymph Absolute 2.04 x10(9)/L (0.90 - 2.90) 05/09/2014 12:10 Hoke Absolute 0.81 x10(9)/L (0.30 - 0.90) 05/09/2014 12:10 Eos Absolute 0.24 x10(9)/L (0.05 - 0.50) 05/09/2014 12:10 Baso Absolute 0.05 x10(9)/L (0.00 - 0.30) 05/09/2014 12:10 Differential? Auto Source: [facility] POWERCHART Document Id: [id number] Electronically signed by Rivka [facility] Consultant Nurse [id number] at 09/29/2016 8:48 PM CDT Miscellaneous - Riley Sanchez M.D. - 05/09/2014 12:02 PM CST Ambulatory Patient Summary [address] [id number] Visit Information Name: SEVEN SALAZAR [facility] Number: [id number] Current Date: 05/09/2014 12:02:29 Physicians Attending Provider: RILEY SANCHEZ MD Primary [...] the Following Medications: Medication list as of 05-09-14 12:02 Attention: If you have any medications at [...] Electronically Signed By: RILEY SANCHEZ MD Signed On:09-MAY-2014 12:02:22 Your Allergies & Intolerances Substance Reaction Symptoms [...] appointment detail needed. Your Goals/Additional instructions: Source: [facility] POWERCHART Document Id: [id number] DRIVER Miscellaneous - Riley Sanchez M.D. - 05/09/2014 12:02 PM CST Ambulatory Discharge Medication List [address] [id number] Visit Information Name: CHRIS SEVEN AVINA [facility] Number: [id number] Visit Date: 05/09/2014 12:02:27 Attending Provider: RILEY SANCHEZ MD Primary Care [...] the Following Medications: Medication list as of 05-09-14 12:02 Attention: If you have any medications at [...] Electronically Signed By: RILEY SANCHEZ MD Signed On:09-MAY-2014 12:02:22 Additional Information: Source: [facility] [email or web address] Document Id: [id number] DRIVER Riley Rangel M.D. - 05/09/2014 11:57 AM CST Ambulatory Vitals Height Weight Ambulatory Vitals Height Weight Entered On: 05/09/2014 11:58 CMV DRIVER Performed On: 05/09/2014 11:57 CMV DRIVER by RILEY SANCHEZ MD Vitals/Ht/Wt Systolic Blood Pressure : 144 mmHg (HI) Diastolic Blood Pressure : 70 mmHg NIBP Mean : 95 mmHg BP Location : Left upper extremity Blood Pressure Cuff Size : Large Height : 174.5 cm(Converted to: 5 ft 9 inch(es), 69 inch(es)) RILEY SANCHEZ MD - 05/09/2014 11:57 CMV DRIVER Source: [facility] [email or web address] Document Id: [id number] CMV DRIVER!8 DRIVER Mook - Chucky Duncan L.P.NBhavesh - 05/09/2014 11:43 AM CST Obstructive Sleep Apnea Obstructive Sleep Apnea Entered On: 05/09/2014 11:45 CMV DRIVER Performed On: 05/09/2014 11:43 CMV DRIVER by CHUCKY DUNCAN LPN MICKEY Screening Known Obstructive Sleep Apnea : No - NOT diagnosed with MICKEY CHUCKY DUNCAN LPN - 05/09/2014 11:43 CMV DRIVER MICKEY Assessment Do you have high blood pressure or have you been told to take medication for high blood pressure? : Yes Frequency of Snoring HTN : Rarely (1-2 times per year) Frequency of Gasping, Choking, Snorting HTN : Never Total Number of Historical Features HTN : 0 Neck Circumference - MICKEY - HTN : 48/49 Total Sleep Apnea Clinical Score HTN Calc : 29 CHUCKY DUNCAN LPN - 05/09/2014 11:43 CMV DRIVER Source: [employer] Document Id: [id number] CMV DRIVER!10 DRIVER Jodicelljen - Chucky Duncan L.P.N. - 05/09/2014 11:41 AM CST Ambulatory Vitals Height Weight Ambulatory Vitals Height Weight Entered On: 05/09/2014 11:42 CMV DRIVER Performed On: 05/09/2014 11:41 CMV DRIVER by CHUCKY DUNCAN LPN Vitals/Ht/Wt Systolic Blood Pressure : 175 mmHg (>HHI) Diastolic Blood Pressure : 85 mmHg NIBP Mean : 115 mmHg BP Location : Right upper extremity Blood Pressure Cuff Size : Large SpO2 : 97 % Oxygen Therapy : Room air Height : 174.5 cm(Converted to: 5 ft 9 inch(es), 69 inch(es)) CHUCKY DUNCAN LPN - 05/09/2014 11:41 CMV DRIVER Source: [employer] Document Id: [id number] CMV DRIVER!10 DRIVER Nicoleaneous - Chucky Duncan LBhaveshP.N. - 05/09/2014 11:23 AM CST Adult Federal Agent Intake/History Adult Federal Agent Intake/History Entered On: 05/09/2014 11:41 CMV DRIVER Performed On: 05/09/2014 11:23 CMV DRIVER by CHUCKY DUNCAN LPN Intake Chief Complaint : Pre-op: surgery with Dr. Acuña on 05/17/2014 at [facility] - Left Shoulder. Apical Heart Rate : 64 /min Respiratory Rate : 16 /min Systolic Blood Pressure : 170 mmHg (>HHI) Diastolic Blood Pressure : 89 mmHg NIBP Mean : 116 mmHg BP Location : Right upper extremity Blood Pressure Cuff Size : Large Height : 174.5 cm(Converted to: 5 ft 9 inch(es), 69 inch(es)) Actual Weight : 101 kg(Converted to: 222 lb 11 oz) Weight Source : Standing scale Dosing Weight Clinic : 101 kg Clinic BSA : 2.21 Body Mass Index : 33.17 kg/m2 PERLA CHUCKY MANLEY LPN - 05/09/2014 11:23 CMV DRIVER General Info Information Given By : Patient Preferred Communication Mode : Verbal, Written Languages : Yakut Is Patient Female and 13-50 no hysterectomy : No CHUCKY DUNCAN LPN - 05/09/2014 11:23 CMV DRIVER Subjective Pain Symptoms : Yes CHUCKY DUNCAN RATE AND COST ANALYST - 05/09/2014 11:23 CMV DRIVER Pain Scale Pain Scale Verbal 0-10 : Open CHCUKY DUNCAN LPN - 05/09/2014 11:23 CMV DRIVER Pain Pain Assessment Grid Pain 1 Location : Shoulder Laterality : Left PERLA CHUCKY MANLEY [facility] - 05/09/2014 11:23 CMV DRIVER Dependent Habits Tobacco Use/Currently Using : Yes Exposure to Tobacco Smoke : Patient smokes Smoking Status : Current some day smoker PERLA CHUCKY MANLEY RATE AND COST ANALYST - 05/09/2014 11:23 CMV DRIVER Tobacco Use Grid Type : Cigarettes Cigarette Use Packs/Day : 0.5 Last Use : today PERLA CHUCKY MANLEY [facility] 05/09/2014 11:23 CMV DRIVER Caffeine Use Grid Caffeine Use : Current Type : Coffee, Tea Frequency : Daily Amount : 2 cup coffee/2 tea daily PERLA CHUCKY MANLEY [facility] - 05/09/2014 11:23 CMV DRIVER Recreational Drug Use Grid Drug Use : None PERLA CHUCKY MANLEY RATE AND COST ANALYST - 05/09/2014 11:23 CMV DRIVER ID Screen Drug Resistant Organism : No Travel Within Last 21 Days : No CHUCKY DUNCAN LPN 05/09/2014 11:23 CMV DRIVER [facility] Document Id: [id number] CMV DRIVER!51 DRIVER documented in this encounter Plan of Treatment Upcoming Encounters Date Type Specialty Care Team Description 04/12/2022 Office Visit Cardiovascular Disease Simone Gooden AP RN, C.N.P. [phone] [phone] (Wo rk) documented as of this encounter Procedures Procedure Name Priority Date/Time Associated Diagnosis Comme nts AUTOMATED Routine 05/09/2014 12:10 PM Results for this DIFFERENTIAL, B CMV DRIVER procedure ar e in the results section. CBC WITH Routine 05/09/2014 12:10 PM Results for this DIFFERENTIAL, B CMV DRIVER procedure ar e in the results section. BASIC METABOLIC Routine 05/09/2014 12:10 PM Resul ts for this PANEL, S/P CMV DRIVER procedure are i n the results section. documented in this encounter Results Automated Differential (05/09/2014 12:10 PM CMV DRIVER) P athologist Signature Absolute 4.67 1.70 - POWERCHART Neutrophils 7.00 109L Lymphocytes 2.04 0.90 - POWERCHART 2.90 X109L Monocytes 0.81 0.30 - POWERCHART 0.90 X109L Eosinophils 0.24 0.05 - POWERCHART 0.50 X109L Absolute 0.05 0.00 - POWERCHART Basophil 0.30 X109L Specimen Anatomical Collection Method Collection Time Receive d Time (Source) Location / / Volume Laterality Blood 05/09/2014 12:10 05/09/2014 PM CMV DRIVER 12:10 PM CMV DRIVER Riley Sanchez M.D. LAB BLOOD ADD-ON Performing Organization Address City/State/ZIP Code Phon e Number POWERCHART CBC with Differential (05/09/2014 12:10 PM CMV DRIVER) P athologist Signature Leukocytes 7.8 3.5 - 10.5 POWERCHART X109L Erythrocytes 5.48 4.32 - POWERCHART 5.72 [id number] Hemoglobin 16.1 13.5 - POWERCHART 17.5 GDL Hematocrit 47.7 38.8 - POWERCHART 50.0 MCV 87.0 81.0 - POWERCHART 95.0 FL Platelet Count 263 150 - 450 POWERCHART X109L HX RDW 13.8 11.8 - POWERCHART 15.6 HXDifferential? Auto POWERCHART Specimen (Source) Anatomical Collection Method Collection Time Re ceived Time Location / / Volume Laterality Blood 05/09/2014 12:10 PM CMV DRIVER Riley Sanchez M.D. LAB BLOOD ADD-ON Performing Organization Address City/State/ZIP Code Phon e Number POWERCHART (ABNORMAL) BMP (Basic Metabolic Panel) (05/09/2014 12:10 PM CMV DRIVER) P athologist Signature BUN (Blood Urea 18 7 - 23 POWERCHART Nitrogen), S MGDL Creatinine 0.9 0.9 - 1.4 POWERCHART MGDL Glucose 106 POWERCHART Potassium, S 4.4 3.5 - 4.8 POWERCHART MMOLL Sodium, S 138 135 - 145 POWERCHART MMOLL Chloride, S 97 (L) 100 - 108 POWERCHART MMOLL CO2 Total 34 (H) 22 - 30 POWERCHART MMOLL Calcium, Total, 10.4 8.5 - 10.5 POWERCHART S MGDL HXeGFR (MDRD) >60 MLMIN POWERCHART eGFR >60 >=60 POWERCHART Black/ [id number] [place]er Specimen (Source) Anatomical Collection Method Collection Time Re ceived Time Location / / Volume Laterality Blood 05/09/2014 12:10 PM CMV DRIVER Riley Sanchez M.D. LAB BLOOD ADD-ON Performing Organization Address City/State/ZIP Code Phon e Number POWERCHART documented in this encounter Visit Diagnoses Not on filedocumented in this encounter Additional Health Concerns Assessment Noted Time PHQ-9 Depression Total Score: 3 01/17/2014 1:01 PM CDT documented as of this encounter
--- OUTSIDE RECORDS SUMMARY | 2022-03-29 07:57 | XMS_ITS | Encounter Summary ---
:1950 Author Organization [facility] Address [address] [place] [address] Care Team Providers Name Role Phone Unavailable Primary Care Provider Unavailable Encounter Details Date Type Department Care Team Description 06/18/2013 Hospital Encounter HX [facility] Riley Jimenez M.D. [address] [facility], [facility] [address] [phone] Social History Tobacco Use Types Packs/Day [...] How often do you attend buddhism or hoahaoism services? 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 - 06/18/2013 2:17 PM CST [id number] CHIEF COMPLAINT/REASON FOR VISIT Six month followup. HISTORY OF PRESENT ILLNESS Mr. Salazar is a 63-year-old man who came in today for followup. He had right shoulder arthroplasty at [facility] on May 06, 2013. He is being followed with Dr. Acuña, [facility]oped[facility]. He no longer wears sling. He still has pain in the left shoulder. He is going to have surgery this winter. He has hypertension. He has been taking medication. Blood pressure is controlled. He does not have side effects from medication. Patient has chronic bronchitis. Currently he does not use any inhaler. Sometimes he has cough, especially in the morning. We discussed symptoms and signs of COPD exacerbation and management of chronic bronchitis. Patient continues to smoke cigarettes. Advised him to cut back or quit smoking cigarettes. In the past, he was given a Combivent inhaler which no longer available. After discussion, it was decided to try Tudorza inhaler. He will use 1 puff twice a day. He should contact me if there is side effects or intolerance to medication. Otherwise he does not have additional questions, concerns or complaints. He has bladder cancer. He is being followed with Dr. Camejo, urologist. He does not notice blood in his urine. MEDICATIONS Reviewed and updated as per the EMR. ALLERGIES Reviewed and updated as per the EMR. SYSTEMS REVIEW As per the history of present illness. Other systems are reviewed and are negative. PAST MEDICAL/SURGICAL HISTORY Reviewed and updated as per the EMR. PREVENTIVE SERVICES: Reviewed and updated as per the EMR. VITAL SIGNS Reviewed as per the EMR. PHYSICAL EXAMINATION GENERAL: Patient is sitting. No distress. Able to talk without interruption. HEAD: No facial rash, asymmetry or sinus tenderness. EYES: PERRLA. EOMI. No pallor, icterus or conjunctivitis. HEART: No carotid bruit. No JVD. Regular rhythm. There is no S3, gallop, murmur or thrill. LUNGS: Normal respiratory effort. Clear to auscultation. Normal percussion. EXTREMITIES: No clubbing, cyanosis, edema, infection or calf tenderness. IMPRESSION/REPORT/PLAN 1. Hypertension. Blood pressure is controlled. He is stable from cardiac standpoint. He will continue current medications along with sodium restriction diet. So far he does not have side effects from medications. On arrival, his heart rate was 108 beats per minute. It has decreased to 98 with rest. 2. Chronic bronchitis. Patient continues to smoke cigarettes. We discussed symptoms and signs of COPD exacerbation and management of COPD. After discussion, it was decided to try Tudorza inhaler. He will use 1 puff twice a day. Prescription for albuterol inhaler was given. He should use 2 puffs every 4 hour as needed for shortness of breath and wheezing. Strongly encouraged him to quit smoking cigarettes. 3. Degenerative joint disease of the shoulder. He underwent right shoulder arthroplasty at [facility] on May 06, 2013. It has improved. He is being followed with Dr. Acuña from [facility]. He has plan to proceed with left shoulder surgery in winter 2013. All of his questions were answered. Return to clinic in 6 months for Medicare Annual Wellness Visit, review chronic medical problems karlynew medications. Riley Sanchez M.D./[facility] Electronically Signed By: RILEY SANCHEZ MD On: 06/22/2013 10:25 AM Modified by and Electronically Signed by: RILEY SANCHEZ MD On: 06/22/2013 10:25 AM Source: [facility] [id number] Document Id: [id number] MACHINE OPERATOR documented in this encounter Miscellaneous Notes Miscellaneous - Riley Sanchez M.D. - 06/19/2013 3:58 PM CST Follow up cystoscopy for urinary bladder cancer Document Contains Addenda Addendum by PRUDENCIO LOVE on 21 June 2013 15:14:58 TAB MACHINE OPERATOR Left message to call back. Addendum by MARGARITA VENEGAS CMA on 21 June 2013 13:32:48 TAB MACHINE OPERATOR Called patient let him know message below. Addendum by TAMIKA CAMEJO MD on 21 June 2013 10:54:36 TAB MACHINE OPERATOR From: TAMIKA CAMEJO MD To: Urology Nurse; Sent: 06/21/2013 10:54:36 TAB MACHINE OPERATOR Subject: FW: Follow up cystoscopy for urinary bladder cancer Addendum by RILEY SANCHEZ MD on 21 June 2013 10:42:18 TAB MACHINE OPERATOR From: RILEY SANCHEZ MD To: Internal Medicine Nurse; Cc: TAMIKA CAMEJO MD; Sent: 06/21/2013 10:42:18 TAB MACHINE OPERATOR Subject: FW: Follow up cystoscopy for urinary bladder cancer Actions: Notify patient- refer to General Message Please call Mr. Salazar that he needs to see Dr. Camejo for follow up appointment. Addendum by TAMIKA CAMEJO MD on 21 June 2013 07:13:54 TAB MACHINE OPERATOR From: TAMIKA CAMEJO MD To: RILEY SANCHEZ MD; Sent: 06/21/2013 07:13:54 TAB MACHINE OPERATOR Subject: RE: Follow up cystoscopy for urinary bladder cancer Yes, he would be due now or very soon. From: RILEY SANCHEZ MD To: TAMIKA CAMEJO MD; Sent: 06/19/2013 15:58:02 TAB MACHINE OPERATOR Subject: Follow up cystoscopy for urinary bladder cancer Dr. Camejo, Does he need follow up appointment with you for cystoscopy? Thank you. Source: [facility] POWERCHART Document Id: [id number] Electronically signed by Conversion, [facility] Managed Security Sales Consultant [id number] at 10/01/2016 2:17 PM CDT Miscellaneous - Riley Sanchez M.D. - 06/18/2013 3:12 PM CST Ambulatory Patient Summary [address] [address] Visit Information Name: SEVEN SALAZAR [facility] Number: [id number] Current Date: 06/18/2013 15:11:59 Physicians Attending Provider: RILEY SANCHEZ MD Primary [...] breath / Wheezing use with spacer chamber This is a CHANGE Routed to [facility] [address] [place] [address] APAP/ASA/caffeine (Excedrin Migraine) 3 Tablet(s), Oral, once as needed for Headache calcium-vitamin D (Caltrate 600 with D 600 mg-400 intl units oral tablet) 1 Tablet(s), Oral, two times a day with food with plenty of water lisinopril-hydrochlorothiazide (lisinopril-hydrochlorothiazide 20 mg-12.5 mg oral tablet) See Instructions 2 tab(s) PO Daily in AM. Dose increased on 08/31/2012. / (Zestoretic) Stop Taking the Following Medications: Medication list as of 06-18-13 15:12 Attention: If you have any medications at home that are not on this list, DO NOT take them until youcontact your provider for clarification. Give a copy of your medication list to your primary care provider. Update your medication list any time medications or doses are changed and carry your medication list at all times in case of emergency. 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 HTN [Hypertension] Active 02/12/2010 Abdominal pain RLQ Active 02/12/2010 Tobacco use Active 02/12/2010 Lipoma, [...] gain due to prednison Rx Active 09/28/2010 Arthralgia, Most likely due to Intravesical BCG Rx Active 09/28/2010 Skin Tags Active 12/07/2010 [...] disease] Active Hiatal hernia, 2 cm Active Diverticulosis* Active Esophagitis, Per EGD Active 11/26/2011 Duodenitis per EGD Active 11/26/2011 Antritis per EGD Active 11/26/2011 Peptic ulcer, Linear ulcer in mid antrum per EGD Active 11/26/2011 High Risk Meds Active Chronic Bronchitis Active Skin Lesion, Left nasolabial fold Active 04/30/2013 Your Upcoming Appointments Date Time Location Reason Provider No Appointments found Attention: Contact your local Clinic if further appointment detail needed. Your Goals/Additional instructions: Source: [facility] POWERCHART Document Id: [id number] MACHINE OPERATOR Miscellaneous - Riley Sanchez M.D. - 06/18/2013 3:11 PM CST Ambulatory Depart Summary [address] [address] Visit Information Name: SEVEN SALAZAR [facility] Number: [id number] Visit Date: 06/18/2013 15:11:57 Attending Provider: RILEY SANCHEZ MD Primary Care [...] breath / Wheezing use with spacer chamber This is a CHANGE Routed to [facility] [address] [place] [address] APAP/ASA/caffeine (Excedrin Migraine) 3 Tablet(s), Oral, once as needed for Headache calcium-vitamin D (Caltrate 600 with D 600 mg-400 intl units oral tablet) 1 Tablet(s), Oral, two times a day with food with plenty of water lisinopril-hydrochlorothiazide (lisinopril-hydrochlorothiazide 20 mg-12.5 mg oral tablet) See Instructions 2 tab(s) PO Daily in AM. Dose increased on 08/31/2012. / (Zestoretic) Stop Taking the Following Medications: Medication list as of 06-18-13 15:11 Attention: If you have any medications at home that are not on this list, DO NOT take them until youcontact your provider for clarification. Give a copy of your medication list to your primary care provider. Update your medication list any time medications or doses are changed and carry your medication list at all times in case of emergency. Additional Information: Source: [facility] POWERCHART Document Id: [id number] MACHINE OPERATOR Miscellaneous - Riley Sanchez M.D. - 06/18/2013 3:00 PM CST Ambulatory Vitals Height Weight Ambulatory Vitals Height Weight Entered On: 06/18/2013 15:01 TAB MACHINE OPERATOR Performed On: 06/18/2013 15:00 TAB MACHINE OPERATOR by RILEY SANCHEZ MD Vitals/Ht/Wt Peripheral Pulse Rate : 98 /min RILEY SANCHEZ MD - 06/18/2013 15:00 TAB MACHINE OPERATOR Source: [facility] POWERCHART Document Id: [id number] TAB MACHINE OPERATOR!3 MACHINE OPERATOR Miscellaneous - Margarita Venegas C.M.A. - 06/18/2013 2:39 PM CST Adult Party Chief Intake/History Adult Party Chief Intake/History Entered On: 06/18/2013 14:47 TAB MACHINE OPERATOR Performed On: 06/18/2013 14:39 TAB MACHINE OPERATOR by MARGARITA VENEGAS [facility] Intake Peripheral Pulse Rate : 108 /min (HI) Respiratory Rate : 24 /min (HI) Heart Rhythm : Regular Systolic Blood Pressure : 134 mmHg Diastolic Blood Pressure : 74 mmHg NIBP Mean : 94 mmHg BP Location : Right upper extremity Blood Pressure Cuff Size : Large Actual Weight : 102 kg(Converted to: 224 lb 14 oz) Weight Source : Standing scale Dosing Weight Clinic : 102 kg MARGARITA VENEGAS [facility] - 06/18/2013 14:39 TAB MACHINE OPERATOR General Info Information Given By : Patient Languages : Macedonian MARGARITA VENEGAS [facility] - 06/18/2013 14:39 TAB MACHINE OPERATOR Subjective Pain Symptoms : Yes MARGARITA VENEGAS [facility] 06/18/2013 14:39 TAB MACHINE OPERATOR Pain Pain Assessment Grid Pain 1 Location : Shoulder Laterality : Bilateral MARGARITA VENEGAS [facility] 06/18/2013 14:39 TAB MACHINE OPERATOR Dependent Habits Tobacco Use/Advised to Quit : Yes MARGARITA VENEGAS [facility] 06/18/2013 14:47 TAB MACHINE OPERATOR Tobacco Use/Currently Using : Yes Exposure to Tobacco Smoke : Patient smokes Smoking Status : Current every day smoker MARGARITA VENEGAS [facility] 06/18/2013 14:39 TAB MACHINE OPERATOR Tobacco Use Grid Type : Cigarettes Cigarette Use Packs/Day : 0.5 Last Use : today MARGARITA VENEGAS [facility] 06/18/2013 14:39 TAB MACHINE OPERATOR Caffeine Use Grid Caffeine Use : Current Type : Coffee, Tea Frequency : Daily Amount : 2 cup coffee/2 tea daily MARGARITA VENEGAS [facility] - 06/18/2013 14:39 TAB MACHINE OPERATOR Recreational Drug Use Grid Drug Use : None MARGARITA VENEGAS [facility] - 06/18/2013 14:39 TAB MACHINE OPERATOR Source: [facility] POWERCHART Document Id: [id number] TAB MACHINE OPERATOR!3 MACHINE OPERATOR documented in this encounter Plan of Treatment Upcoming Encounters Date Type Specialty Care Team Description 04/12/2022 Office Visit Cardiovascular Disease Simone Gooden AP RN, C.N.P. [address] [phone] (Wo rk) documented as of this encounter Visit Diagnoses Not on filedocumented in this encounter Additional Health Concerns Assessment Noted Time PHQ-9 Depression Total Score: 12/10/2012 8:45 AM CD T documented as of this encounter
--- OUTSIDE RECORDS SUMMARY | 2022-03-29 07:57 | XMS_ITS | Encounter Summary ---
:1950 Author Organization [facility] Address [address] [place] [address] Care Team Providers Name Role Phone Unavailable Primary Care Provider Unavailable Encounter Details Date Type Department Care Team Description 02/01/2013 Hospital Encounter HX NO MAPPING Darlene Camejo M.D. [address] [place], [place] [phone] (Wo rk) Social History [...] How often do you attend quaker or baptist services? 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 [address] [phone] (Wo rk) documented as of this encounter Visit Diagnoses Not on filedocumented in this encounter Additional Health Concerns Assessment Noted Time PHQ-9 Depression Total Score: 12 12/10/2012 8:45 AM CD T documented as of this encounter
--- OUTSIDE RECORDS SUMMARY | 2022-03-29 07:57 | XMS_ITS | Encounter Summary ---
:1950 Author Organization [facility] Address [address] [place] [address] Care Team Providers Name Role Phone Unavailable Primary Care Provider Unavailable Encounter Details Date Type Department Care Team Description 07/08/2013 Hospital Encounter [facility] Riley Jimenez M.D. [address] [facility], [facility] [address] [phone] Social History Tobacco Use Types Packs/Day [...] How often do you attend moravian or oriental orthodox services? Never 04/16/2019 Do [...] at Date Recorded Male 06/28/2019 8:47 AM GERIATRIC PHYSICAL THERAPIST documented as of this encounter Last Filed Vital Signs Vital Sign Reading Time Taken Comments Blood Pressure 110/64 07/08/2013 1:08 PM GERIATRIC PHYSICAL THERAPIST Pulse 90 07/08/2013 1:08 PM GERIATRIC PHYSICAL THERAPIST Temperature - - Respiratory Rate 24 07/08/2013 1:08 PM GERIATRIC PHYSICAL THERAPIST Oxygen Saturation - - Inhaled Oxygen Concentration - - Weight 101 kg (223 lb 12.3 oz) 07/08/2013 1:08 PM GERIATRIC PHYSICAL THERAPIST Height 172 cm (5' 7.72) 07/08/2013 1:08 PM GERIATRIC PHYSICAL THERAPIST Body Mass Index 34.31 07/08/2013 1:08 PM GERIATRIC PHYSICAL THERAPIST documented in this encounter H&P Notes Phyo, Phunt, M.D. - 07/08/2013 1:02 PM CST [id number] CHIEF COMPLAINT/REASON FOR VISIT Proposed surgery date: July 12, 2013. Surgeon: Dr. Jatinder Camejo, Urologist. Proposed surgery: Biopsy of urinary bladder lesion. Location: [facility] in [place], [place]. HISTORY OF PRESENT ILLNESS Mr. Salazar is a 63 year-old male who presents to the clinic today for a preanesthetic medical evaluation. I am asked by Dr. Jatinder Camejo, Urologist to assess whether Seven is an adequate candidate for anesthesia for biopsy of urinary bladder lesion on July 12, 2013. He denies any chest pain or shortness of breath. He is having pain in his left shoulder and bilateral hips. Patient reports that his left shoulder pain keeps him awake night. He has had no blood in theurine and no pain with urination. He has had several cystoscopy and several surgical procedures in the past. There were no complications. Patient has never had a reaction to anesthesia. He has not had hepatitis, jaundice, bleeding disorder, or MRSA or VRE. Patient continues to smoke tobacco. We discussed smoking cessation medications Chantix and Wellbutrin. He is not ready to quit at this time. He has no additional questions, concerns, or complaints. MEDICATIONS 1. Albuterol inhaler 2 puffs 4 times a day as needed. 2. Tudorza Pressair inhaler 1 puff 2 times a day. 3. Lisinopril/hydrochlorothiazide 20 mg/12.5 mg, 2 tablets by mouth daily in the morning. 4. Calcium with vitamin D 1 tablet by mouth twice a day. 5. Excedrin Migraine 3 tablets by mouth once as needed. ALLERGIES No known drug allergies. SYSTEMS REVIEW [...] migraine headache. 8. Hypertension. 9. History of antritis. 10. History of esophagitis. 11. History of peptic ulcer. 12. History of duodenitis. 13. Gastroesophageal reflux disease. 14. 2 cm hiatal hernia. 15. Diverticulosis. 16. Degenerative joint disease of the shoulder. 17. Degenerative joint disease of knee joint. 18. Degenerative disk disease of cervical spine and lumbar spine. 19. History of polymyalgia rheumatica. 20. Insomnia. 21. Elevated sedimentation rate. 22. Status post appendectomy, 1967. 23. 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 24. Status post left C5-C6 foraminotomy and hemilaminectomy, left C6-C7 foraminotomy and hemilaminectomy and diskectomy, 05/31/1999. 25. Status post lipoma excision from back, 07/16/1999. 26. Status post right cataract extraction, 08/16/2008. 27. Status post right cataract extraction, 2008. 28. Status post excision of lipoma from anterior abdominal wall, 02/19/2010. 29. Status post transurethral resection of bladder tumor, 02/19/2010. 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 30. Status post esophagogastroduodenoscopy, 11/25 1012. 31. Status post colonoscopy, 11/26/2011. 32. Status post cystoscopy with biopsy of urinary bladder lesions 02/01/2013. 33. Status post right shoulder arthroplasty, 05/07/2013, at [facility]. 34. Status post excision of dermal nevus from left cheek, 2013. PREVENTIVE SERVICES: Reviewed and updated as per the EMR. SOCIAL HISTORY He is single. He lives alone. He smokes cigarettes. He denies alcohol or drug abuse. He does not do exercise but he is physically active. He is still working at [employer] in [place], [place]. FAMILY HISTORY Asthma in brother. Father had liver and pancreas cancer, lung cancer in sister. Mother has cataract and glaucoma, hearing loss in father. Hypertension in mother and brother. Parkinson disease in father. VITAL SIGNS TEMPERATURE: 36.6 Deg C. PULSE: 90 /min. RESPIRATORY RATE: 24 /min. SPO2: 98 %. BLOOD PRESSURE: 110 mmHg/64 mmHg. PHYSICAL EXAMINATION GENERAL: Patient is sitting. No distress. Able to talk without interruption. HEAD: No facial rash, asymmetry or sinus tenderness. EYES: PERRLA. EOMI. No pallor, icterus or conjunctivitis. Bilateral cataract extraction. ENT: No nasal congestion, discharge or bleeding. [...] Intact sensory and motor. Grossly nonfocal exam. IMPRESSION/REPORT/PLAN 1. Preoperative medical evaluation prior to biopsy of urinary bladder lesion on July 12, 2013. The patient is stable from a cardiac and respiratory standpoint. There is no absolute contradiction for planned procedure. He discussed with Dr. Camejo, Urologist regarding risks, benefits, alternative therapy. He is willing to proceed because the benefits outweigh the risks. EKG was last done on December 10, 2012 which shows normal sinus rhythm with sinus arrhythmia. Ventricular rate was 86 bpm, no acute changes. Will check complete blood count and basic metabolic profile today. He should be NPO after July 11, 2013 midnight. Advised him not to take medication on the morning of surgery 07/12/2013. Heshould restart medications immediately after surgery. 2. Pain in left shoulder. He will follow [facility]. He is planning to have surgery in near future. 3. Hypertension. Blood pressure is controlled. Todays blood pressure is 110 mmHg/64 mmHg. He is stable from cardiac standpoint. 4. Tobacco use. He continues to smoke cigarettes. He was advised to quit. We discussed treatment options for smoking cessation. We can try either Zyban or Chantix. I discussed potential side-effects ofthis medication. He will consider smoking cessation medication. All of his questions were answered. Todays Studies: Basic metabolic panel and complete blood count. Will return to clinic as previously scheduled in December 2013 for Medicare Annual Wellness Visit, to review medical problems, and renew medications. Thank you for allowing me to participate in care of this patient. This document serves as a record of services personally performed by Dr. Riley Sanchez. It was created on their behalf by Denice Robledo, a trained medical review coordinator. The creation of this record is based on the scribe's personal observations and the provider's statements to them. This document has been checked and approved by the attending provider. CC: Dr. Camejo, Urologist Riley Sanchez M.D./edgardo Electronically Signed By: RILEY SANCHEZ MD On: 07/08/2013 06:15 PM Modified by and Electronically Signed by: RILEY SANCHEZ MD On: 07/08/2013 06:15 PM Source: [facility] MHSDOLBEYNONRADSYS Document Id: [id number] ATRIC PHYSICAL THERAPIST documented in this encounter Miscellaneous Notes Miscellaneous - Riley Sanchez M.D. - 07/09/2013 3:59 PM CST Work Excuse 09 July 2013 SEVEN SALAZAR [address] [facility] [phone] Dear SEVEN SALAZAR, You were examined in my office on: 07/08/2013. Reason for work excuse: Medical Illness ( X ) Yes ( _ ) No Injury ( _ ) Yes ( X ) No Is excused from all work: ( X ) Yes ( _ ) No Has work limitations: ( X ) Yes ( _ ) No As follows: _ Limitations apply until: Follow-Up Appointment : ( _ ) Return to Work date: _ Notes: Work excuse on 07/08/2013. Sincerely, RILEY SANCHEZ [address] [place] [address] Electronic Signature Electronically Signed By: RILEY SANCHEZ MD On: 09 July 2013 This document has images extracted. Source: [facility] POWERCHART Document Id: [id number] Miscellaneous - Riley Sanchez M.D. - 07/08/2013 6:33 PM CST Results Notification Document Contains Addenda Addendum by MARGARITA VENEGAS CMA on 09 July 2013 11:09:11 GERIATRIC PHYSICAL THERAPIST Pre-op faxed. Patient notified. From: RILEY SANCHEZ MD Sent: 07/08/2013 18:33:29 GERIATRIC PHYSICAL THERAPIST ! Show up: 07/08/2013 18:33:29 GERIATRIC PHYSICAL THERAPIST Subject: Results Notification Actions: Notify patient of results Reminder Comments: Please call OK. Fax report to [facility] for Pre-op with EKG and today progress note. Results: Date Result Name Ind Value Ref Range 07/08/2013 13:45 Sodium Lvl 142 mmol/L (135 - 145) 07/08/2013 13:45 Potassium Lvl 3.8 mmol/L (3.5 - 4.8) 07/08/2013 13:45 Chloride (L) 96 mmol/L (100 - 108) 07/08/2013 13:45 CO2 (H) 34 mmol/L (22 - 30) 07/08/2013 13:45 Glucose Lvl 107 07/08/2013 13:45 Creatinine 1.0 mg/dL (0.9 - 1.4) 07/08/2013 13:45 EGFR (MDRD) >60 mL/min 07/08/2013 13:45 EGFR (MDRD) >60 mL/min 07/08/2013 13:45 BUN (H) 26 mg/dL (7 - 23) 07/08/2013 13:45 Calcium Lvl 10.2 mg/dL (8.5 - 10.5) 07/08/2013 13:45 Hgb 15.1 g/dL (13.5 - 17.5) 07/08/2013 13:45 Hct 46.3 % (38.8 - 50.0) 07/08/2013 13:45 WBC 7.7 x10(9)/L (3.5 - 10.5) 07/08/2013 13:45 RBC 5.37 x10(12)/L (4.32 - 5.72) 07/08/2013 13:45 MCV 86.2 fL (81.0 - 95.0) 07/08/2013 13:45 RDW 14.7 % (11.8 - 15.6) 07/08/2013 13:45 Platelet 300 x10(9)/L (150 - 450) 07/08/2013 13:45 Neutro % 52.2 % (34.0 - 67.9) 07/08/2013 13:45 Lymph % 27.3 % (21.8 - 53.1) 07/08/2013 13:45 Merrick % (H) 15.2 % (5.3 - 12.2) 07/08/2013 13:45 Eos % 4.8 % (0.8 - 7.0) 07/08/2013 13:45 Baso % 0.5 % (0.2 - 1.2) 07/08/2013 13:45 Neutro Absolute 4.02 10(9)/L (1.70 - 7.00) 07/08/2013 13:45 Lymph Absolute 2.10 x10(9)/L (0.90 - 2.90) 07/08/2013 13:45 Merrick Absolute (H) 1.17 x10(9)/L (0.30 - 0.90) 07/08/2013 13:45 Eos Absolute 0.37 x10(9)/L (0.05 - 0.50) 07/08/2013 13:45 Baso Absolute 0.04 x10(9)/L (0.00 - 0.30) 07/08/2013 13:45 Differential? Auto Source: [facility] POWERCHART Document Id: [id number] Miscellaneous - Riley Sanchez M.D. - 07/08/2013 6:32 PM CST Normal Results Letter 08 July 2013 SEVEN SALAZAR [address] [place] [phone] Dear SEVEN SALAZAR, I am pleased to report that your results from the following diagnostic test(s) are normal. Please follow up with us as we discussed during your visit or sooner if you have any concerns. If you have questions or concerns, please do not hesitate to call our office. Result Name Current Result Normal Range Sodium Lvl (mmol/L) 142 07/08/2013 135 - 145 Potassium Lvl (mmol/L) 3.8 07/08/2013 3.5 - 4.8 Chloride (mmol/L) (L) 96 07/08/2013 100 - 108 CO2 (mmol/L) (H) 34 07/08/2013 22 - 30 Glucose Lvl 107 07/08/2013 Creatinine (mg/dL) 1.0 07/08/2013 0.9 - 1.4 EGFR (MDRD) (mL/min) >60 07/08/2013 BUN (mg/dL) (H) 26 07/08/2013 7 - 23 Calcium Lvl (mg/dL) 10.2 07/08/2013 8.5 - 10.5 Hgb (g/dL) 15.1 07/08/2013 13.5 - 17.5 Hct (%) 46.3 07/08/2013 38.8 - 50.0 WBC (x10(9)/L) 7.7 07/08/2013 3.5 - 10.5 Platelet (x10(9)/L) 300 07/08/2013 150 - 450 Sincerely, RILEY SANCHEZ [address] [place] [phone] Electronic Signature Electronically Signed By: RILEY SANCHEZ MD On: 08 July 2013 This document has images extracted. Source: [facility] POWERCHART Document Id: [id number] Electronically signed by Rivka [facility] Center[facility] Damage Adjuster [id number] at 10/01/2016 3:34 AM CDT Miscellaneous - Riley Sanchez M.D. - 07/08/2013 1:42 PM CST Ambulatory Patient Summary [address] [id number] Visit Information Name: SEVEN SALAZAR [facility] Number: [id number] Current Date: 07/08/2013 13:42:00 Physicians Attending Provider: RILEY SANCHEZ MD Primary [...] 1 puff(s), Inhalation, two times a day Routed to [facility] [address] [place] [address] albuterol (albuterol CFC free 90 mcg/inh inhalation [...] the Following Medications: Medication list as of 07-08-13 13:42 Attention: If you have any medications at [...] Upcoming Appointments Date Time Location Reason Provider 07/19/2013 14:15 [facility] Urology results per Jatinder Taylor MD 12/16/2013 08:40 [facility] Medicare Annual Wellness Visit, review medical problems & renew medications. Riley Sanchez MD Attention: Contact your local Clinic if further appointment detail needed. Your Goals/Additional instructions: Source: [facility] POWERCHART Document Id: [id number] ATRIC PHYSICAL THERAPIST Miscellaneous - Riley Sanchez M.D. - 07/08/2013 1:41 PM CST Ambulatory Discharge Medication List [address] [facility] [place] [phone] Visit Information Name: SEVEN SALAZAR [facility] Number: [id number] Visit Date: 07/08/2013 13:41:58 Attending Provider: RILEY SANCHEZ MD Primary Care [...] 1 puff(s), Inhalation, two times a day Routed to [facility] [address] [place] [address] albuterol (albuterol CFC free 90 mcg/inh inhalation [...] the Following Medications: Medication list as of 07-08-13 13:41 Attention: If you have any medications at home that are not on this list, DO NOT take them until youcontact your provider for clarification. Give a copy of your medication list to your primary care provider. Update your medication list any time medications or doses are changed and carry your medication list at all times in case of emergency. Additional Information: Source: [facility] POWERCHART Document Id: [id number] ATRIC PHYSICAL THERAPIST Miscellaneous - Margarita Venegas C.M.A. - 07/08/2013 1:14 PM CST Obstructive Sleep Apnea Obstructive Sleep Apnea Entered On: 07/08/2013 13:14 GERIATRIC PHYSICAL THERAPIST Performed On: 07/08/2013 13:14 GERIATRIC PHYSICAL THERAPIST by MARGARITA VENEGAS CMA MICKEY Screening Known Obstructive Sleep Apnea : No - NOT diagnosed with MICKEY MARGARITA VENEGAS [facility] - 07/08/2013 13:14 GERIATRIC PHYSICAL THERAPIST MICKEY Assessment Do you have high blood pressure or have you been told to take medication for high blood pressure? : Yes Frequency of Snoring HTN : Never Frequency of Gasping, Choking, Snorting HTN : Never Total Number of Historical Features HTN : 0 Neck Circumference - MICKEY - HTN : Greater than 49 Total Sleep Apnea Clinical Score HTN Calc : 40 MARGARITA VENEGAS [facility] - 07/08/2013 13:14 GERIATRIC PHYSICAL THERAPIST [facility]: [facility] Document Id: [id number] GERIATRIC PHYSICAL THERAPIST!10 ATRIC PHYSICAL THERAPIST Miscellaneous - Magrarita Venegas C.MDale - 07/08/2013 1:08 PM CST Adult Community Living Coach Intake/History Adult Community Living Coach Intake/History Entered On: 07/08/2013 13:13 GERIATRIC PHYSICAL THERAPIST Performed On: 07/08/2013 13:08 GERIATRIC PHYSICAL THERAPIST by MARGARITA VENEGAS [facility] Intake Chief Complaint : Pre-Op Temperature Core : 36.6 DegC(Converted to: 97.9 DegF) Peripheral Pulse Rate : 90 /min Respiratory Rate : 24 /min (HI) Heart Rhythm : Regular Systolic Blood Pressure : 110 mmHg Diastolic Blood Pressure : 64 mmHg NIBP Mean : 79 mmHg BP Location : Left upper extremity Blood Pressure Cuff Size : Large SpO2 : 98 % Oxygen Therapy : Room air Height : 172 cm(Converted to: 5 ft 8 inch(es), 68 inch(es)) Actual Weight : 101.5 kg(Converted to: 223 lb 12 oz) Weight Source : Standing scale Dosing Weight Clinic : 101.5 kg Clinic BSA : 2.2 Body Mass Index : 34.31 kg/m2 MARGARITA VENEGAS [facility] - 07/08/2013 13:08 GERIATRIC PHYSICAL THERAPIST General Info Information Given By : Patient Languages : Korean MARGARITA VENEGAS [facility] 07/08/2013 13:08 GERIATRIC PHYSICAL THERAPIST Subjective Pain Symptoms : Yes MARGARITA VENEGAS [facility] 07/08/2013 13:08 GERIATRIC PHYSICAL THERAPIST Pain Pain Assessment Grid Pain 1 Location : Shoulder Laterality : Left MARGARITA VENEGAS [facility] 07/08/2013 13:08 GERIATRIC PHYSICAL THERAPIST Dependent Habits Tobacco Use/Currently Using : Yes Tobacco Use/Advised to Quit : Yes Exposure to Tobacco Smoke : Patient smokes Smoking Status : Current every day smoker [facility] 07/08/2013 13:08 GERIATRIC PHYSICAL THERAPIST Tobacco Use Grid Type : Cigarettes Cigarette Use Packs/Day : 0.5 Last Use : today [facility] 07/08/2013 13:08 GERIATRIC PHYSICAL THERAPIST Caffeine Use Grid Caffeine Use : Current Type : Coffee, Tea Frequency : Daily Amount : 2 cup coffee/2 tea daily [facility] 07/08/2013 13:08 GERIATRIC PHYSICAL THERAPIST Recreational Drug Use Grid Drug Use : None MARGARITA VENEGAS [facility] 07/08/2013 13:08 GERIATRIC PHYSICAL THERAPIST [facility]: [facility] Document Id: [id number] GERIATRIC PHYSICAL THERAPIST!49 ATRIC PHYSICAL THERAPIST documented in this encounter Plan of Treatment Upcoming Encounters Date Type Specialty Care Team Description 04/12/2022 Office Visit Cardiovascular Disease Simone Gooden AP RN, C.N.P. [address] [phone] ( rk) documented as of this encounter Procedures Procedure Name Priority Date/Time Associated Diagnosis Comme nts AUTOMATED Routine 07/08/2013 1:45 PM Results f or this DIFFERENTIAL, B GERIATRIC PHYSICAL THERAPIST procedure ar e in the results section. CBC WITH Routine 07/08/2013 1:45 PM Results f or this DIFFERENTIAL, B GERIATRIC PHYSICAL THERAPIST procedure ar e in the results section. BASIC METABOLIC Routine 07/08/2013 1:45 PM Result s for this PANEL, S/P GERIATRIC PHYSICAL THERAPIST procedure are i n the results section. documented in this encounter Results (ABNORMAL) Automated Differential (07/08/2013 1:45 PM GERIATRIC PHYSICAL THERAPIST) Patholo gist Method Time Signature Neutro % 52.2 34.0 - POWERCHART 67.9 Lymphocytes % 27.3 21.8 - POWERCHART 53.1 HX Merrick % 15.2 (H) 5.3 - 12.2 POWERCHART HX Eos % 4.8 0.8 - 7.0 POWERCHART HX Baso % 0.5 0.2 - 1.2 POWERCHART Absolute 4.02 1.70 - POWERCHART Neutrophils 7.00 109L Lymphocytes 2.10 0.90 - POWERCHART 2.90 X109L Monocytes 1.17 (H) 0.30 - POWERCHART 0.90 X109L Eosinophils 0.37 0.05 - POWERCHART 0.50 X109L Absolute 0.04 0.00 - POWERCHART Basophil 0.30 X109L Specimen Anatomical Collection Method Collection Time Receive d Time (Source) Location / / Volume Laterality Blood 07/08/2013 1:45 PM 4 1:45 GERIATRIC PHYSICAL THERAPIST PM GERIATRIC PHYSICAL THERAPIST Riley Sanchez M.D. LAB BLOOD ADD-ON Performing Organization Address City/[facility] Phon e Number POWERCHART CBC with Differential (07/08/2013 1:45 PM GERIATRIC PHYSICAL THERAPIST) athologist Signature Leukocytes 7.7 3.5 - 10.5 POWERCHART X109L Erythrocytes 5.37 4.32 - POWERCHART 5.72 [id number] Hemoglobin 15.1 13.5 - POWERCHART 17.5 GDL Hematocrit 46.3 38.8 - POWERCHART 50.0 MCV 86.2 81.0 - POWERCHART 95.0 FL Platelet Count 300 150 - 450 POWERCHART X109L HX RDW 14.7 11.8 - POWERCHART 15.6 HXDifferential? Auto POWERCHART Specimen (Source) Anatomical Collection Method Collection Time Re ceived Time Location / / Volume Laterality Blood 07/08/2013 1:45 PM GERIATRIC PHYSICAL THERAPIST Riley Valente Javdi LAB BLOOD ADD-ON Performing Organization Address City/[facility] Phon e Number POWERCHART (ABNORMAL) BMP (Basic Metabolic Panel) (07/08/2013 1:45 PM GERIATRIC PHYSICAL THERAPIST) P athologist Signature BUN (Blood Urea 26 (H) 7 - 23 POWERCHART Nitrogen), S MGDL Creatinine 1.0 0.9 - 1.4 POWERCHART MGDL Glucose 107 POWERCHART Potassium, S 3.8 3.5 - 4.8 POWERCHART MMOLL Sodium, S 142 135 - 145 POWERCHART MMOLL Chloride, S 96 (L) 100 - 108 POWERCHART MMOLL CO2 Total 34 (H) 22 - 30 POWERCHART MMOLL Calcium, Total, 10.2 8.5 - 10.5 POWERCHART S MGDL HXeGFR (MDRD) >60 MLMIN POWERCHART eGFR >60 MLMIN POWERCHART Black/ Specimen (Source) Anatomical Collection Method Collection Time Re ceived Time Location / / Volume Laterality Blood 07/08/2013 1:45 PM GERIATRIC PHYSICAL THERAPIST Riley Sanchez M.D. LAB BLOOD ADD-ON Performing Organization Address City/State/ZIP Code Phon e Number POWERCHART documented in this encounter Visit Diagnoses Not on filedocumented in this encounter Additional Health Concerns Assessment Noted Time PHQ-9 Depression Total Score: 12 12/10/2012 8:45 AM CD T documented as of this encounter
--- OUTSIDE RECORDS SUMMARY | 2022-03-29 07:57 | XMS_ITS | Encounter Summary ---
:1950 Author Organization [facility] Address [address] [place] [address] Care Team Providers Name Role Phone Unavailable Primary Care Provider Unavailable Encounter Details Date Type Department Care Team Description 01/19/2014 Hospital Encounter HX [facility] Riley Sanchez M.D. [address] [facility], [facility] [address] [phone] Social History Tobacco Use Types Packs/Day [...] How often do you attend episcopal or mu-ism services? 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 - 01/24/2014 1:03 PM CDT Custom Result Letter 24 January 2014 SEVEN SLAAZAR [address] [facility] [address] [place] [phone] Dear SEVEN SALAZAR, Tests for electrolytes, fasting glucose, kidney function, liver and thyroid are normal. Cholesterol is OK. Please cut back cholesterol and fat in diet. Increase exercise and activity level. Please quitsmoking tobacco. There is no evidence of abdominal aortic aneurysm per ultrasound. Please follow up with us as we discussed during your visit or sooner if you have any concerns. If you have questions or concerns, please do not hesitate to call our office. Result Name Current Result Normal Range Sodium Lvl (mmol/L) 139 01/19/2014 135 - 145 Potassium Lvl (mmol/L) 4.1 01/19/2014 3.5 - 4.8 Chloride (mmol/L) (L) 97 01/19/2014 100 - 108 CO2 (mmol/L) 30 01/19/2014 22 - 30 Alkaline Phosphatase (unit/L) 102 01/19/2014 45 - 115 Glucose Fasting (mg/dL) 85 01/19/2014 70 - 99 Creatinine (mg/dL) 1.0 01/19/2014 0.9 - 1.4 EGFR (MDRD) (mL/min) >60 01/19/2014 BUN (mg/dL) 13 01/19/2014 7 - 23 Calcium Lvl (mg/dL) 9.4 01/19/2014 8.5 - 10.5 Protein Total (mg/dL) 7.0 01/19/2014 6.3 - 8.2 Albumin Lvl (gm/dL) 4.0 01/19/2014 3.5 - 5.0 AST (unit/L) 21 01/19/2014 8 - 48 ALT (unit/L) (L) 19 01/19/2014 21 - 72 Bili Total (mg/dL) 0.6 01/19/2014 0.1 - 1.0 Bili Direct (mg/dL) 0.3 01/19/2014 0.0 - 0.3 Cholesterol (mg/dL) 169 01/19/2014 0 - 200 Trig (mg/dL) 68 01/19/2014 0 - 150 HDL (mg/dL) 43.0 01/19/2014 40.0 - 60.0 LDL Calculated (mg/dL) (H) 112 01/19/2014 0 - 100 TSH (mIU/L) 1.00 01/19/2014 0.30 - 5.00 Sincerely, RILEY SANCHEZ [address] [facility] [address] Electronic Signature Electronically Signed By: RILEY SANCHEZ MD On: 24 January 2014 This document has images extracted. Source: [facility] Karaz Document Id: [id number] Electronically signed by Conversion, [facility] Automobile Accessories Salesperson [id number] at 10/01/2016 4:29 PM CDT Miscellaneous - Riley Sanchez M.D. - 01/19/2014 10:22 PM CDT Normal Results Letter 19 January 2014 SEVEN SALAZAR [address] [place] [phone] Dear SEVEN SALAZAR, I am pleased to report that your blood count and prostate are normal. There is no evidence of cancerin urine. Please follow up with us as we discussed during your visit or sooner if you have any concerns. If you have questions or concerns, please do not hesitate to call our office. Result Name Current Result Normal Range Hgb (g/dL) 14.5 01/19/2014 13.5 - 17.5 Hct (%) 42.6 01/19/2014 38.8 - 50.0 WBC (x10(9)/L) 8.8 01/19/2014 3.5 - 10.5 Platelet (x10(9)/L) 269 01/19/2014 150 - 450 PSA (ng/mL) 1.57 01/19/2014 0.00 - 4.40 Sincerely, RILEY SANCHEZ [address] [facility] [address] [address] Electronic Signature Electronically Signed By: RILEY SANCHEZ MD On: 19 January 2014 This document has images extracted. Source: [facility] CodeSquareCHART Document Id: [id number] Electronically signed by Conversion, [facility] Automobile Accessories Salesperson [id number] at 10/01/2016 4:29 PM CDT documented in this encounter Plan of Treatment Upcoming Encounters Date Type Specialty Care Team Description 04/12/2022 Office Visit Cardiovascular Disease Simone Gooden AP RN, C.N.P. [address] [place] [address] [phone] (Wo rk) documented as of this encounter Procedures Procedure Name Priority Date/Time Associated Diagnosis Comme nts LIPID PANEL, S Routine 01/19/2014 3:24 PM Results for this CDT procedure are i n the results section. HEPATIC FUNCTION Routine 01/19/2014 3:24 PM Resul ts for this PANEL, S CDT procedure are i n the results section. AUTOMATED Routine 01/19/2014 3:24 PM Results f or this DIFFERENTIAL, B CDT procedure ar e in the results section. CBC WITH Routine 01/19/2014 3:24 PM Results f or this DIFFERENTIAL, B CDT procedure ar e in the results section. THYROID-STIMULATING Routine 01/19/2014 3:24 PM Re sults for this HORMONE-SENSITIVE CDT procedure are in (S-TSH) the results section. BASIC METABOLIC Routine 01/19/2014 3:24 PM Result s for this PANEL, S/P CDT procedure are i n the results section. PROSTATE-SPECIFIC Routine 01/19/2014 3:24 PM Resu lts for this AG (PSA) SCRN, S CDT procedure a re in the results section. documented in this encounter Results (ABNORMAL) Automated Differential (01/19/2014 3:24 PM CDT) Patholo gist Method Time Signature Absolute 5.14 1.70 - POWERCHART Neutrophils 7.00 109L Lymphocytes 2.32 0.90 - POWERCHART 2.90 X109L Monocytes 1.06 (H) 0.30 - POWERCHART 0.90 X109L Eosinophils 0.25 0.05 - POWERCHART 0.50 X109L Absolute 0.04 0.00 - POWERCHART Basophil 0.30 X109L Specimen Anatomical Collection Method Collection Time Receive d Time (Source) Location / / Volume Laterality Blood 01/19/2014 3:24 PM 4 3:24 CDT PM CDT Riley Sanchez M.D. LAB BLOOD ADD-ON Performing Organization Address City/State/ZIP Code Phon e Number POWERCHART CBC with Differential (01/19/2014 3:24 PM CDT) P athologist Signature HXDifferential? Auto POWERCHART Leukocytes 8.8 3.5 - 10.5 POWERCHART X109L Erythrocytes 5.01 4.32 - POWERCHART 5.72 [id number] Hemoglobin 14.5 13.5 - POWERCHART 17.5 GDL Hematocrit 42.6 38.8 - POWERCHART 50.0 MCV 85.0 81.0 - POWERCHART 95.0 FL Platelet Count 269 150 - 450 POWERCHART X109L HX RDW 15.2 11.8 - POWERCHART 15.6 Specimen (Source) Anatomical Collection Method Collection Time Re ceived Time Location / / Volume Laterality Blood 01/19/2014 3:24 PM CDT patrick Valente Javid LAB BLOOD ADD-ON Performing Organization Address City/[facility] Code Phon e Number POWERCHART Thyroid-Stimulating Hormone-Sensitive (s-TSH) (01/19/2014 3:24 PM CDT) athologist Signature TSH 1.00 0.30 - 5.00 POWERCHART (Thyrotropin) MIUL Specimen (Source) Anatomical Collection Method Collection Time Re ceived Time Location / / Volume Laterality Blood 01/19/2014 3:24 PM CDT Riley Sanchez M.D. LAB BLOOD ADD-ON Performing Organization Address City/[facility] Code Phon e Number POWERCHART (ABNORMAL) Lipid Panel (01/19/2014 3:24 PM CDT) [facility] Method Time Signature Cholesterol, Total 169 0 - 200 POWERCHART MGDL HX HDL 43.0 40.0 - POWERCHART 60.0 MGDL Triglycerides 68 0 - 150 POWERCHART MGDL Calculated LDL 112 (H) 0 - 100 POWERCHART MGDL Specimen (Source) Anatomical Collection Method Collection Time Re ceived Time Location / / Volume Laterality Blood 01/19/2014 3:24 PM CDT patrick [facility] Javid LAB BLOOD ADD-ON Performing Organization Address City/[facility]/ZIP Code Phon e Number POWERCHART (ABNORMAL) Hepatic Function Panel (01/19/2014 3:24 PM CDT) [facility] Method Time Signature Albumin, S 4.0 3.5 - 5.0 POWERCHART GMDL Alkaline 102 45 - 115 POWERCHART Phosphatase, S UNITL Aspartate 21 8 - 48 POWERCHART Aminotransferase UNITL (AST), S Alanine 19 (L) 21 - 72 POWERCHART Amniotransferase, LD UNITL Bilirubin, Total, S 0.6 0.1 - 1.0 POWERCHART MGDL Bilirubin, Direct, S 0.3 0.0 - 0.3 POWERCHAR T MGDL Total Protein, S 7.0 6.3 - 8.2 POWERCHART MGDL Specimen (Source) Anatomical Collection Method Collection Time Re ceived Time Location / / Volume Laterality Blood 01/19/2014 3:24 PM CDT Riley Sanchez M.D. LAB BLOOD ADD-ON Performing Organization Address City/State/ZIP Code Phon e Number POWERCHART (ABNORMAL) BMP (Basic Metabolic Panel) (01/19/2014 3:24 PM CDT) P athologist Signature BUN (Blood Urea 13 7 - 23 POWERCHART Nitrogen), S MGDL Creatinine 1.0 0.9 - 1.4 POWERCHART MGDL Potassium, S 4.1 3.5 - 4.8 POWERCHART MMOLL Sodium, S 139 135 - 145 POWERCHART MMOLL Chloride, S 97 (L) 100 - 108 POWERCHART MMOLL CO2 Total 30 22 - 30 POWERCHART MMOLL Calcium, Total, 9.4 8.5 - 10.5 POWERCHART S MGDL Glucose, 85 70 - 99 POWERCHART Fasting, S MGDL HXeGFR (MDRD) >60 MLMIN POWERCHART eGFR >60 MLMIN POWERCHART Black/ Specimen (Source) Anatomical Collection Method Collection Time Re ceived Time Location / / Volume Laterality Blood 01/19/2014 3:24 PM CDT Riley Sanchez M.D. LAB BLOOD ADD-ON Performing Organization Address City/State/ZIP Code Phon e Number POWERCHART PSA (Prostate-Specific Antigen) Screen (01/19/2014 3:24 PM CDT) P athologist Signature Prostate-Specif 1.57 0.00 - 4.40 POWERCHART ic Ag NGML Specimen (Source) Anatomical Collection Method Collection Time Re ceived Time Location / / Volume Laterality Blood 01/19/2014 3:24 PM CDT Riley Sanchez M.D. LAB BLOOD ADD-ON Performing Organization Address City/State/ZIP Code Phon e Number POWERCHART documented in this encounter Visit Diagnoses Not on filedocumented in this encounter Additional Health Concerns Assessment Noted Time PHQ-9 Depression Total Score: 3 01/17/2014 1:01 PM CDT documented as of this encounter
--- OUTSIDE RECORDS SUMMARY | 2022-03-29 07:57 | XMS_ITS | Encounter Summary ---
:1950 Author Organization [facility] Address [address] [place] [address] Care Team Providers Name Role Phone Unavailable Primary Care Provider Unavailable Encounter Details Date Type Department Care Team Description 07/05/2013 Hospital Encounter HX [facility] Tamika Camejo M.D. [address] [place] [phone] (Wo rk) Social History Tobacco [...] How often do you attend scientologist or zoroastrian services? 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 - 07/05/2013 11:32 AM CST [id number] CHIEF COMPLAINT / REASON FOR VISIT CYSTOSCOPY REPORT INDICATION History of bladder cancer. 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 A biopsy was performed within the operating room on 02/01/2013. Pathology revealed inflammatory changes. He presents today for a follow-up cystoscopy. He denies any hematuria, dysuria, or any changes in his urination habits. INSTRUMENT Olympus flexible cystoscope. ANESTHESIA 2% aqueous lidocaine jelly introduced [...] cm. Lateral lobes: Mild lateral lobe hypertrophy with incomplete visual obstruction. Middle lobe: Absent. Bladder neck: Unremarkable. Bladder: Ureteral orifices: Singular bilaterally, normal position on the trigone, slit- like in configurationand with clear efflux of urine noted bilaterally. Trabeculation: Mild Foreign bodies: On the left lateral wall there is a 1 - 1.5 cm patch that is slightly raised and red. No other evidence of stones, tumors, exophytic lesions or other foreign bodies COMMENTS The procedure was well tolerated by the patient. He was discharged from the office in satisfactory condition. Post-cystoscopy instructions were reviewed with him. IMPRESSION / REPORT / PLAN 1. Suspect inflammatory changes within the bladder, but cannot rule out recurrent bladder cancer or carcinoma in situ. Biopsy recommended. PLAN: I discussed the patients cystoscopy findings, noting that I am inclined to recommend a repeat biopsywithin the operating room. A urine sample was collected today, which will be sent for urine cytologyand urothelial fluorescence in situ hybridization studies. The patient will be notified of the results by phone. The patient will need to follow-up with his PCP for a preoperative exam. This document serves as a record of services personally performed by Dr. Tamika Camejo. It was created on his behalf by Narinder Malagon, a trained medical chemist. The creation of this record is based on the scribe's personal observations and the provider's statements to him. This document has been checked and approved by the attending provider. Tamika Camejo M.D./catherine cc: Riley Sanchez M.D. Electronically Signed By: TAMIKA CAMEJO MD On: 07/06/2013 12:53 PM Source: [facility] MHSDOLBEYNONRADSYS Document Id: [id number] ITY MANAGEMENT NURSE documented in this encounter Miscellaneous Notes Miscellaneous - Tamika Camejo M.D. - 07/07/2013 2:52 PM CST Results Notification Document Contains Addenda Addendum by PRUDENCIO LOVE on 08 July 2013 12:03:30 QUALITY MANAGEMENT NURSE Patient notified by phone. Addendum by MONI HUTCHISON CMA on 07 July 2013 17:16:10 QUALITY MANAGEMENT NURSE no answer From: TAMIKA CAMEJO MD Sent: 07/07/2013 14:52:51 QUALITY MANAGEMENT NURSE ! Show up: 07/07/2013 14:52:51 QUALITY MANAGEMENT NURSE Subject: Results Notification Actions: Notify patient of results Reminder Comments: fish & cyto negative Results: Date Result Name Value 07/05/2013 12:06 UroCancer Cnslt-[facility] See Comment 07/05/2013 12:06 UroCancer Intrp-[place] See Comment 07/05/2013 12:06 UroCancer Method-[place] See Comment 07/05/2013 12:06 UroCancer OrdDt-[place] See Comment 07/05/2013 12:06 UroCancer RptDt-Mas See Comment 07/05/2013 12:06 UroCancer Rslt-Mas Negative. 07/05/2013 12:06 UroCancer Rsn-Mas See Comment 07/05/2013 12:06 UroCancer Spec-Mas Urine 07/05/2013 12:06 UroCancer SpecID-Mas [id number] 07/05/2013 12:06 Spec Desc-[place] See Comment 07/05/2013 12:06 Cyto U Accn-Mas [id number] 07/05/2013 12:06 Cyto U FnlDiag-[place] See Comment 07/05/2013 12:06 Cyto U Sng Path-[place] See Comment Source: [facility] mobiliThinkCHART Document Id: [id number] Electronically signed by Rivka [id number] Assistant Construction Superintendent [id number] at 10/01/2016 3:34 AM CDT Miscellaneous - Tamika Camejo M.D. - 07/05/2013 12:12 PM CST Ambulatory Patient Summary [address] [id number] Visit Information Name: SEVEN SALAZAR [facility] Number: [id number] Current Date: 07/05/2013 12:12:48 Physicians Attending Provider: TAMIKA CAMEJO MD Primary [...] the Following Medications: Medication list as of 07-05-13 12:12 Attention: If you have any medications at [...] Upcoming Appointments Date Time Location Reason Provider 12/16/2013 08:40 [facility] [employer] Annual Wellness Visit, review medical problems & renew medications. Riley Sanchez MD Attention: Contact your local Clinic if further appointment detail needed. Your Goals/Additional instructions: Source: [facility] POWERCHART Document Id: [id number] ITY MANAGEMENT NURSE Miscellaneous - Tamika Camejo M.D. - 07/05/2013 12:12 PM CST Ambulatory Discharge Medication List [address] [id number] Visit Information Name: CHRISSEVEN FABRICE [facility] Number: [id number] Visit Date: 07/05/2013 12:12:46 Attending Provider: TAMIKA CAMEJO MD Primary Care [...] the Following Medications: Medication list as of 07-05-13 12:12 Attention: If you have any medications at home that are not on this list, DO NOT take them until youcontact your provider for clarification. Give a copy of your medication list to your primary care provider. Update your medication list any time medications or doses are changed and carry your medication list at all times in case of emergency. Additional Information: Source: [facility] POWERCHART Document Id: [id number] ITY MANAGEMENT NURSE Miscellaneous - Nikole Guajardo R.N. - 07/05/2013 11:38 AM CST Adult Crocheter Intake/History Adult Crocheter Intake/History Entered On: 07/05/2013 11:41 QUALITY MANAGEMENT NURSE Performed On: 07/05/2013 11:38 QUALITY MANAGEMENT NURSE by NIKOLE GUAJARDO Intake Chief Complaint : cystoscopy Temperature Core : 36.8 DegC(Converted to: 98.2 DegF) Peripheral Pulse Rate : 84 /min Systolic Blood Pressure : 132 mmHg Diastolic Blood Pressure : 80 mmHg NIBP Mean : 97 mmHg BP Location : Right upper extremity Blood Pressure Cuff Size : Regular NIKOLE GUAJARDO 07/05/2013 11:38 QUALITY MANAGEMENT NURSE General Info Information Given By : Patient Preferred Communication Mode : Verbal Languages : Hebrew NIKOLE GUAJARDO 07/05/2013 11:38 QUALITY MANAGEMENT NURSE Subjective Pain Symptoms : No NIKOLE GUAJARDO 07/05/2013 11:38 QUALITY MANAGEMENT NURSE Dependent Habits Tobacco Use/Currently Using : Yes Exposure to Tobacco Smoke : Patient smokes Smoking Status : Current every day smoker NIKOLE GUAJARDO - 07/05/2013 11:38 QUALITY MANAGEMENT NURSE Tobacco Use Grid Type : Cigarettes Cigarette Use Packs/Day : 0.5 Last Use : today NIKOLE GUAJARDO - 07/05/2013 11:38 QUALITY MANAGEMENT NURSE Caffeine Use Grid Caffeine Use : Current Type : Coffee, Tea Frequency : Daily Amount : 2 cup coffee/2 tea daily NIKOLE GUAJARDO R - 07/05/2013 11:38 QUALITY MANAGEMENT NURSE Recreational Drug Use Grid Drug Use : None NIKOLE GUAJARDO - 07/05/2013 11:38 QUALITY MANAGEMENT NURSE Source: [facility] POWERCHART Document Id: [id number] QUALITY MANAGEMENT NURSE!34 ITY MANAGEMENT NURSE documented in this encounter Plan of Treatment Upcoming Encounters Date Type Specialty Care Team Description 04/12/2022 Office Visit Cardiovascular Disease Simone Gooden AP RN, C.N.P. [address] [phone] (Wo rk) documented as of this encounter Procedures Procedure Name Priority Date/Time Associated Diagnosis Comme nts UROVYSION (R) FOR Routine 07/05/2013 12:06 PM Res ults for this BLADDER CANCER QUALITY MANAGEMENT NURSE procedure are in the results section. CYTOLOGY, U Routine 07/05/2013 12:06 PM Results for this QUALITY MANAGEMENT NURSE procedure are i n the results section. documented in this encounter Results Cytology, Urine (07/05/2013 12:06 PM QUALITY MANAGEMENT NURSE) [facility] gist Method Time Signature HX Spec See Comment POWERCHART [facility] Comment: RESULT: A. ??Urine, NOS: ??Received 70cc of yellow urine in PreservCyt Test Performed by: [facility] [address] [place] [address] Sock Liner: Cem cali III, M.D. Specimen (Source) Anatomical Collection Method Collection Time Re ceived Time Location / / Volume Laterality Urine 07/05/2013 12:06 PM QUALITY MANAGEMENT NURSE Tamika Camejo M.D. 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 HXUroCancer [facility] See Comment POWERCH ART Comment: RESULT: Rule out urothelial car cinoma HXUroCancer [facility] Negative. POWERCHA RT HXUroCancer [facility] See Comment POWER CHART Comment: No [...] the results were: Date ?? %Abnormal ?Result 01/25/2013 ?? 0% ?Negative 05/04/2012 ?? 0% ?Negative 10/07/2011 ?? 0% ?Negative 02/25/2011 ?? 0% ?Negative 10/08/2010 ?? 0% ?Negative HXUroCancer [facility] See Comment POWER CHART Comment: RESULT: Jalen Briceno MD, PhD [facility] See Comment POWER CHART Comment: RESULT: 07 Jul 2013 14:16 Test Performed by: [address] [address] Sock Liner: Cem cali III, M.D. Specimen (Source) Anatomical Collection Method Collection Time Re ceived Time Location / / Volume Laterality Urine 07/05/2013 12:06 PM QUALITY MANAGEMENT NURSE Tamika Camejo M.D. LAB GENETIC TESTING Performing Organization Address City/State/ZIP Code Phon e Number POWERCHART documented in this encounter Visit Diagnoses Not on filedocumented in this encounter Additional Health Concerns Assessment Noted Time PHQ-9 Depression Total Score: 12 12/10/2012 8:45 AM CD T documented as of this encounter
--- OUTSIDE RECORDS SUMMARY | 2022-03-29 07:57 | XMS_ITS | Encounter Summary ---
:1950 Author Organization [facility] Address [address] [place] [address] Care Team Providers Name Role Phone Unavailable Primary Care Provider Unavailable Encounter Details Date Type Department Care Team Description 06/04/2013 Hospital Encounter HX [facility] SURGEON Cristian Vazquez M.D. Social History Tobacco Use Types Packs/Day Years [...] How often do you attend rastafari or spiritism services? 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 - 06/04/2013 12:00 AM CST 1RPT Seven Salazar comes in today for removal of a mole of his left cheek. This is near the nasolabial fold. It is about 7 mm in greatest diameter, which is located vertically in the same direction as the nasolabial fold. After prepping and draping, an elliptical incision was made around this mole down into the subcutaneous tissue. The entire mole was removed. The wound was cleaned with peroxide and the skin was closed with 1 inverting #5-0 Monocryl and the skin itself was closed with #5-0 nylon simple interrupted sutures. Vaseline and a Band-Aid were applied to the site. He was asked to apply some Vaseline to the site on a daily basis for the next 3 or 4 days and then he can leave it alone after that.He will be allowed to get it wet in 2 days. He will return in 6 days for suture removal. Indra Vazquez M.D./sheila Electronically Signed By: INDRA VAZQUEZ MD On: 06/09/2013 12:28 PM Source: [facility] MHSDOLBEYNONRADSYS Document Id: [id number] P PRODUCT MANAGER documented in this encounter Miscellaneous Notes Miscellaneous - Indra Vazquez M.D. - 06/04/2013 12:40 PM CST Ambulatory Patient Summary [facility] [address] [place] [address] Visit Information Name: CHRISSEVEN FABRICE [facility] Number: [id number] Current Date: 06/04/2013 12:40:00 Physicians Attending Provider: INDRA VAZQUEZ MD Primary Care Provider: RILEY SANCHEZ MD [...] Instructions/Comments/Notes for Patient Medication Changes/Routing albuterol (albuterol 90 mcg/inh inhalation aerosol with adapter) 2 puff(s), Inhalation, four times aday as needed for Shortness of breath / Wheezing APAP/ASA/caffeine (Excedrin Migraine) 3 Tablet(s), Oral, once as needed for Headache calcium-vitamin D (Caltrate 600 with D 600 mg-400 intl units oral tablet) 1 Tablet(s), Oral, two times a day with food with plenty of water ipratropium-albuterol (ipratropium-albuterol CFC free 100 mcg-20 mcg/inh inhalation aerosol) 1 puff(s), Inhalation, four times a day lisinopril-hydrochlorothiazide (lisinopril-hydrochlorothiazide 20 mg-12.5 mg oral tablet) See Instructions 2 tab(s) PO Daily in AM. Dose increased on 08/31/2012. / (Zestoretic) Stop Taking the Following Medications: Medication list as of 06-04-13 12:40 Attention: If you have any medications at [...] Upcoming Appointments Date Time Location Reason Provider 06/10/2013 15:15 [facility] Surgeon suture removal Indra Vazquez MD 06/14/2013 09:20 [facility] 6 month follow up, HTN Riley Sanchez MD Attention: Contact your local Clinic if further appointment detail needed. Your Goals/Additional instructions: Source: [facility] POWERCHART Document Id: [id number] P PRODUCT MANAGER Miscellaneous - Indra Vazquez M.D. - 06/04/2013 12:39 PM CST Ambulatory Depart Summary [address] [address] Visit Information Name: CHRISSEVEN FABRICE [facility] Number: [id number] Visit Date: 06/04/2013 12:39:58 Attending Provider: INDRA VAZQUEZ MD Primary Care Provider: RILEY SANCHEZ MD [...] Instructions/Comments/Notes for Patient Medication Changes/Routing albuterol (albuterol 90 mcg/inh inhalation aerosol with adapter) 2 puff(s), Inhalation, four times aday as needed for Shortness of breath / Wheezing APAP/ASA/caffeine (Excedrin Migraine) 3 Tablet(s), Oral, once as needed for Headache calcium-vitamin D (Caltrate 600 with D 600 mg-400 intl units oral tablet) 1 Tablet(s), Oral, two times a day with food with plenty of water ipratropium-albuterol (ipratropium-albuterol CFC free 100 mcg-20 mcg/inh inhalation aerosol) 1 puff(s), Inhalation, four times a day lisinopril-hydrochlorothiazide (lisinopril-hydrochlorothiazide 20 mg-12.5 mg oral tablet) See Instructions 2 tab(s) PO Daily in AM. Dose increased on 08/31/2012. / (Zestoretic) Stop Taking the Following Medications: Medication list as of 06-04-13 12:39 Attention: If you have any medications at home that are not on this list, DO NOT take them until youcontact your provider for clarification. Give a copy of your medication list to your primary care provider. Update your medication list any time medications or doses are changed and carry your medication list at all times in case of emergency. Additional Information: Source: [facility] POWERCHART Document Id: [id number] P PRODUCT MANAGER Miscellaneous - Anshu Ann - 06/04/2013 10:58 AM CST Adult Mobile Unit Assistant Intake/History Adult Mobile Unit Assistant Intake/History Entered On: 06/04/2013 10:59 GROUP PRODUCT MANAGER Performed On: 06/04/2013 10:58 GROUP PRODUCT MANAGER by ANSHU ANN Intake Chief Complaint : mole evaluation, left cheek Temperature Core : 37 DegC(Converted to: 98.6 DegF) Systolic Blood Pressure : 128 mmHg Diastolic Blood Pressure : 76 mmHg NIBP Mean : 93 mmHg BP Location : Left upper extremity Blood Pressure Cuff Size : Regular ANSHU ANN - 06/04/2013 10:58 GROUP PRODUCT MANAGER General Info Languages : Australian ANSHU ANN - 06/04/2013 10:58 GROUP PRODUCT MANAGER Subjective Pain Symptoms : No ANSHU ANN - 06/04/2013 10:58 GROUP PRODUCT MANAGER Dependent Habits Tobacco Use/Currently Using : Yes Exposure to Tobacco Smoke : Patient smokes Smoking Status : Current every day smoker ANSHU ANN - 06/04/2013 10:58 GROUP PRODUCT MANAGER Tobacco Use Grid Type : Cigarettes Cigarette Use Packs/Day : 0.5 Last Use : today ANSHU ANN - 06/04/2013 10:58 GROUP PRODUCT MANAGER Caffeine Use Grid Caffeine Use : Current Type : Coffee, Tea Frequency : Daily Amount : 2 cup coffee/2 tea daily ANSHU ANN - 06/04/2013 10:58 GROUP PRODUCT MANAGER Recreational Drug Use Grid Drug Use : None ANSHU ANN - 06/04/2013 10:58 GROUP PRODUCT MANAGER Source: [employer] Document Id: [id number] GROUP PRODUCT MANAGER!31 P PRODUCT MANAGER documented in this encounter Plan of Treatment Upcoming Encounters Date Type Specialty Care Team Description 04/12/2022 Office Visit Cardiovascular Disease Simone Gooden AP RN, C.N.P. [address] [phone] (Wo rk) documented as of this encounter Procedures Procedure Name Priority Date/Time Associated Comments Diagnosis DERMATOPATHOLOGY CONSULT Routine 06/04/2013 4:52 Results for this PM GROUP PRODUCT MANAGER procedure are i n the results section. LAB SURG PATH,LEVEL IV Routine 06/04/2013 4:52 Re sults for this PRO AND TECH PM GROUP PRODUCT MANAGER procedure are i n the results section. documented in this encounter Results LAB SURG PATH,LEVEL IV PRO AND TECH (06/04/2013 4:52 PM GROUP PRODUCT MANAGER) [facility] Time Signature HXLvl IV Surg Performed POWERCHART [facility] Comment: Test Performed by: [address] [id number] Shoulder Sawyer: Cem cali III, M.D. Specimen Anatomical Collection Method Collection Time Receive d Time (Source) Location / / Volume Laterality Tissue 06/04/2013 4:52 PM 4 7:33 GROUP PRODUCT MANAGER AM GROUP PRODUCT MANAGER Historical Provider [facility] Performing Organization Address City/State/ZIP Code Phon e Number POWERCHART PATHOLOGY DERMPATH CONSULT, WET TISSUE (06/04/2013 4:52 PM GROUP PRODUCT MANAGER) [facility] Method Time Signature HXDrm Exam [id number] POWERCHART [facility] HXDrm Exam See Comment POWERCHART [facility] Comment: RESULT: Indra Vazquez M.D. [facility] See Comment POWERCH ART Comment: [facility] - [address] [address] Priority Fax HXDrm Exam [facility] See Comment POWERCH ART Comment: RESULT: A. DermPath Consultatio n, Wet Tissue; left cheek mole: HXDrm Exam [facility] See Comment POWERCH ART Comment: A. ??Received in formalin labeled with t he patient's name and as lef t cheek mole is a 1.1-0.5 cm unoriented ellipse of estrada-white skin excised to a depth of 0.2 cm. ??Eccentrically located on the skin surface, is a 0.5 x 0.5 cm estrada-white partially verrucoid nodule, wh ich abuts the closest peripheral margin (long-edge). ??The res ection margin is inked blue, the specimen is serially sectioned and i s entirely submitted as follows: A1-tips and A2-central sections . Grossed by [facility]. HXDrm Exam [facility] See Comment POWERCH ART Comment: A. ??DermPath Consultation, Wet Tissue; left cheek mole: ??Dermal nevus HXDrm Exam [facility] See Comment POWERCH ART Comment: RESULT: 06/10/2013 11:38 ??Interpreted by: Molly Rivera M.D Report electronically signed by Molly Rivera M.D. Transcribed by: [email or web address] 06/10/2013 10:54:08 Test Performed by: [place] [address] Shoulder Sawyer: Cem cali III, M.D. Specimen (Source) Anatomical Collection Method Collection Time Re ceived Time Location / / Volume Laterality Tissue 06/04/2013 4:52 PM GROUP PRODUCT MANAGER Indra Vazquez M.D. LAB PATH DERM ORDERABLES Performing Organization Address City/State/ZIP Code Phon e Number POWERCHART documented in this encounter Visit Diagnoses Not on filedocumented in this encounter Additional Health Concerns Assessment Noted Time PHQ-9 Depression Total Score: 12 12/10/2012 8:45 AM CD T documented as of this encounter
--- OUTSIDE RECORDS SUMMARY | 2022-03-29 07:57 | XMS_ITS | Encounter Summary ---
:1950 Author Organization [facility] Address [address] [place] [address] Care Team Providers Name Role Phone Unavailable Primary Care Provider Unavailable Encounter Details Date Type Department Care Team Description 01/24/2014 Hospital Encounter HX [facility] Leta Garcia M.D. [address] [facility] [address] [phone] Social History Tobacco Use Types Packs/Day [...] How often do you attend congregation or yarsanism services? 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 [address] [phone] (Wo rk) documented as of this encounter Procedures Procedure Name Priority Date/Time Associated Diagnosis Comme nts US AORTA Routine 01/24/2014 8:29 AM Results f or this CDT procedure are i n the results section . documented in this encounter Results US Aorta (01/24/2014 8:29 AM CDT) Anatomical Region Laterality Modality Abdomen, Pelvis N/A Ultrasound Specimen (Source) Anatomical Collection Method Collection Time Re ceived Time Location / / Volume Laterality 01/24/2014 8:29 AM CDT Addenda Addendum by Provider, Javid Samson o n 01/24/2014 8:29 AM CDT RAD^^^OW US AAA Screening Welcome Medicare 01/24/2014 08:29:54 Addendum by Provider, Javid Samson o n 01/24/2014 8:30 AM CDT RAD^^^OW US AAA Screening Welcome Medicare 01/24/2014 08:30:00 Impressions 01/24/2014 9:00 AM CDT Negative for abdominal aortic aneurysm. Narrative 01/24/2014 9:00 AM CDT EXAM: US AAA Screening Welcome Medicare INDICATION: Welcome to Medicare. Tobacco use COMPARISON: 10/21/2011. FINDINGS: Abdominal aorta is well visual ized and normal in caliber throughout without evidence of abdominal aortic aneurysm. There is a normal triphasic waveform. Common iliac arteries are normal in caliber. Procedure Note Lenny Hickey Jr., M.D. / Mali Roblero M.D. - 09/14/2016 EXAM: US AAA Screening Welcome Medicare INDICATION: Welcome to Medicare. Tobacco use COMPARISON: 10/21/2011. FINDINGS: Abdominal aorta is well visual ized and normal in caliber throughout without evidence of abdominal aortic aneurysm. There is a normal triphasic waveform. Common iliac arteries are normal in caliber. IMPRESSION: Negative for abdominal aorti c aneurysm. Jay Anderson Jr., R.D.M.S. IMG US PROCEDURES documented in this encounter Visit Diagnoses Not on filedocumented in this encounter Additional Health Concerns Assessment Noted Time PHQ-9 Depression Total Score: 3 01/17/2014 1:01 PM CDT documented as of this encounter
--- OUTSIDE RECORDS SUMMARY | 2022-03-29 07:57 | XMS_ITS | Encounter Summary ---
:1950 Author Organization [facility] Address [address] [place] [address] Care Team Providers Name Role Phone Unavailable Primary Care Provider Unavailable Encounter Details Date Type Department Care Team Description 06/10/2013 Hospital Encounter HX [facility] SURGEON Cristian [...] How often do you attend confucianist or muslim services? 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 - 06/10/2013 3:00 PM CST [id number] Seven Salazar is here for followup after we removed a mole from his left cheek area. The wound is healing well. Sutures are removed. He will return as needed if any problems develop. His path did show that it was a benign compound dermal nevus. Indra Vazquez M.D./martín Electronically Signed By: INDRA VAZQUEZ MD On: 07/09/2013 11:50 AM Source: [facility] MHSDOLBEYNONRADSYS Document Id: [id number] STRIPPER documented in this encounter Miscellaneous Notes Miscellaneous - Indra Vazquez M.D. - 06/10/2013 3:32 PM CST Amb[place] [address] Visit Information Name: SEVEN SALAZAR [facility] Number: [id number] Current Date: 06/10/2013 15:32:55 Physicians Attending Provider: INDRA VAZQUEZ MD Primary [...] the Following Medications: Medication list as of 06-10-13 15:32 Attention: If you have any medications at [...] Upcoming Appointments Date Time Location Reason Provider 06/14/2013 09:20 [facility] 6 month follow up, HTN Riley Sanchez MD Attention: Contact your local Clinic if further appointment detail needed. Your Goals/Additional instructions: Source: [facility] POWERCHART Document Id: [id number] STRIPPER Miscellaneous - Indra Vazquez M.D. - 06/10/2013 3:32 PM CST [place] [address] Visit Information Name: SEVEN SALAZAR [facility] Number: [id number] Visit Date: 06/10/2013 15:32:53 Attending Provider: INDRA VAZQUEZ MD Primary Care [...] the Following Medications: Medication list as of 06-10-13 15:32 Attention: If you have any medications at home that are not on this list, DO NOT take them until youcontact your provider for clarification. Give a copy of your medication list to your primary care provider. Update your medication list any time medications or doses are changed and carry your medication list at all times in case of emergency. Additional Information: Source: [facility] POWERCHART Document Id: [id number] STRIPPER Miscellaneous - Anshu Ann - 06/10/2013 3:04 PM CST Adult Plastic Dolls Mold Filler Intake/History Adult Plastic Dolls Mold Filler Intake/History Entered On: 06/10/2013 15:05 LEHR STRIPPER Performed On: 06/10/2013 15:04 LEHR STRIPPER by ANSHU ANN Intake Chief Complaint : sutures out/path results, mole left cheek Temperature Core : 36 DegC(Converted to: 96.8 DegF) (LOW) Systolic Blood Pressure : 138 mmHg Diastolic Blood Pressure : 78 mmHg NIBP Mean : 98 mmHg BP Location : Left upper extremity Blood Pressure Cuff Size : Regular ANSHU ANN - 06/10/2013 15:04 LEHR STRIPPER General Info Languages : Croatian ANSHU ANN - 06/10/2013 15:04 LEHR STRIPPER Subjective Pain Symptoms : No ANSHU ANN - 06/10/2013 15:04 LEHR STRIPPER Dependent Habits Tobacco Use/Currently Using : Yes Exposure to Tobacco Smoke : Patient smokes Smoking Status : Current every day smoker ANSHU ANN - 06/10/2013 15:04 LEHR STRIPPER Tobacco Use Grid Type : Cigarettes Cigarette Use Packs/Day : 0.5 Last Use : today ANSHU ANN - 06/10/2013 15:04 LEHR STRIPPER Caffeine Use Grid Caffeine Use : Current Type : Coffee, Tea Frequency : Daily Amount : 2 cup coffee/2 tea daily ANSHU ANN - 06/10/2013 15:04 LEHR STRIPPER Recreational Drug Use Grid Drug Use : None ANSHU ANN - 06/10/2013 15:04 LEHR STRIPPER Source: [facility] [employer]* Document Id: [id number] LEHR STRIPPER!31 STRIPPER documented in this encounter Plan of Treatment Upcoming Encounters Date Type Specialty Care Team Description 04/12/2022 Office Visit Cardiovascular Disease Simone Gooden AP RN, C.N.P. [address] [phone] (Wo rk) documented as of this encounter Visit Diagnoses Not on filedocumented in this encounter Additional Health Concerns Assessment Noted Time PHQ-9 Depression Total Score: 12/10/2012 8:45 AM CD T documented as of this encounter
--- OUTSIDE RECORDS SUMMARY | 2022-03-29 07:57 | XMS_ITS | Encounter Summary ---
:1950 Author Organization [facility] Address [address] [place] [address] Care Team Providers Name Role Phone Unavailable Primary Care Provider Unavailable Encounter Details Date Type Department Care Team Description 01/28/2013 Hospital Encounter HX [facility] Riley Jimenez M.D. [address] [facility], [facility] [address] [phone] Social History Tobacco Use Types Packs/Day [...] How often do you attend worship or zoroastrianism services? 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 - 01/28/2013 2:26 PM CDT [id number] CHIEF COMPLAINT/REASON FOR VISIT This is a preoperative medical evaluation requested by Dr. Jatinder Camejo urologist. HISTORY OF PRESENT ILLNESS Mr. Salazar is a 62-year-old man with history of urinary bladder cancer. He has been following with Dr. Camejo urologist. Recently he underwent cystoscopy on January 25, 2013. Patient was noted to have possible recurrent bladder cancer. Dr. Camejo recommend performing a biopsy of suspicious areas. Patient is scheduled to have cystoscopy with bladder biopsy at [facility] on February 01, 2013. He discussed with Dr. Camejo regarding risk, benefits, alternative therapy. He is willing to proceed. He has had similar procedures in the past. Patient smokes cigarettes. He continues to smoke. He is not ready to quit. Patient coughs in the morning. There was no significant sputum production. There was no hemoptysis. There was no history of hepatitis, bleeding disorder, blood transfusion, drug resistant bacteria infection. He does not use steroids. Please see detail in copy of preop history and physical form [facility]. MEDICATIONS Reviewed and updated as per the EMR. ALLERGIES Reviewed and updated as per the EMR. SYSTEMS REVIEW As per the history of present illness. Other systems are reviewed and are negative. PAST MEDICAL/SURGICAL HISTORY Reviewed and updated as per the EMR. PREVENTIVE SERVICES: Reviewed and updated as per the EMR. VITAL SIGNS Reviewed as per the EMR. PHYSICAL EXAMINATION Please refer to preop history and physical form from [facility] scanned into electronic medical record. IMPRESSION/REPORT/PLAN 1. Preoperative medical evaluation prior to cystoscopy with biopsy of urinary bladder lesions on February 01, 2013. He discussed with Dr. Camejo urologist regarding risk, benefits, alternative therapy. He is willing to proceed because benefits outweigh the risks. He is stable from cardiac standpoint. There are no absolute contraindications. Today's examination showed bilateral rhonchi, probably hemay have bronchitis. There was no significant wheezing. There was no respiratory distress. He can betreated with antibiotic. He needs to quit smoking. Advised him not to take aspirin or NSAIDs. He should be n.p.o. after January 31, 2013 midnight. He should take morning medications with sip of wateron February 01, 2013 morning before surgery. He needs to restart all his regular medications following after surgery. Today's studies: None. 2. Tobacco use with chronic bronchitis. Advised him to quit smoking cigarettes. He has been coughingin the morning. On exam showed bilateral rhonchi. There was no respiratory distress. He was given prescription for azithromycin. He should use Combivent inhaler 1 puff 4 times a day along with albuterol inhaler as needed. 3. Hypertension. Blood pressure is controlled. He is stable from cardiac standpoint. 4. Patient's portal and authorization to disclose protected health information. We discussed patient's portal. He signed authorization to disclose protected health information to his girlfriend. Pleasesee copy scanned into electronic medical record. Preop history and physical form with previous lab studies, x-ray, EKG were faxed to [facility]. Send copy to Dr. Camejo urologist to review. Thank you for allowing me to participate in care of this patient. Riley Sanchez M.D./edgar cc: Jatinder Camejo M.D. Electronically Signed By: RILEY SANCHEZ MD On: 02/22/2013 09:15 AM Modified by and Electronically Signed by: RILEY SANCHEZ MD On: 02/22/2013 09:15 AM Source: [facility] MHSDOLBEYNONRADSYS Document Id: [id number] documented in this encounter Miscellaneous Notes Miscellaneous - Riley Sanchez M.D. - 01/28/2013 3:28 PM CDT Ambulatory Patient Summary [address] [id number] Visit Information Name: SEVEN SALAZAR [facility] Number: [id number] Current Date: 01/28/2013 15:28:06 Physicians Attending Provider: RILEY SANHCEZ MD Primary Care Provider: RILEY SANCHEZ MD Your Medications Here is a list of your medications. It is important to take your medications as directed. Use a pillbox or chart to help remind you to take your medications. Please let your doctor or nurse know if you have problems taking your medications. Medication/Strength Dose Route Frequency Indications/Special Instructions/Comments/Notes azithromycin (Zithromax 250 mg oral tablet) See Instructions 2 tablets on day 1, then 1 tablet on day 2 to 5. PO As Directed ipratropium-albuterol (ipratropium-albuterol CFC free 100 mcg-20 mcg/inh inhalation aerosol) 1 puff(s) Inhalation four times a day lisinopril-hydrochlorothiazide (lisinopril-hydrochlorothiazide 20 mg-12.5 mg oral tablet) See Instructions 2 tab(s) PO Daily in AM. Dose increased on 08/31/2012. / (Zestoretic) albuterol (albuterol 90 mcg/inh inhalation aerosol with adapter) 2 puff(s) Inhalation four times a day as needed for Shortness of breath / Wheezing calcium-vitamin D (Caltrate 600 with D 600 mg-400 intl units oral tablet) 1 tab(s) Oral two times a day with food with plenty of water APAP/ASA/caffeine (Excedrin Migraine) 3 tab(s) Oral once as needed for Headache Attention: If you have any medications at home that are not on this list, DO NOT take them until youcontact your provider for clarification. Your Allergies & Intolerances Substance Reaction Symptoms [...] in mid antrum per EGD Active 11/26/2011 Polymyalgia Rheumatica Active 02/04/2012 High Risk Meds Active Your Upcoming Appointments Date Time Location Reason Provider 02/08/2013 09:00 [facility] PER PRUDENCIO MICHELA BALTAZAR AT 9:00 Jatinder Camejo MD 06/14/2013 09:20 [facility] 6 month follow up, HTN Riley Sanchez MD Your Goals/Additional instructions: Source: [facility] POWERCHART Document Id: [id number] Miscellaneous - Riley Sanchez M.D. - 01/28/2013 3:28 PM CDT Ambulatory Depart Summary [address] [address] Visit Information Name: SEVEN SALAZAR [facility] Number: [id number] Visit Date: 01/28/2013 15:28:05 Attending Provider: RILEY SANCHEZ MD Primary Care [...] medications. Medication/Strength Dose Route Frequency Indications/Special Instructions/Comments/Notes azithromycin (Zithromax 250 mg oral tablet) See Instructions 2 tablets on day 1, then 1 tablet on day 2 to 5. PO As Directed ipratropium-albuterol (ipratropium-albuterol CFC free 100 mcg-20 mcg/inh inhalation aerosol) 1 puff(s) Inhalation four times a day lisinopril-hydrochlorothiazide (lisinopril-hydrochlorothiazide 20 mg-12.5 mg oral tablet) See Instructions 2 tab(s) PO Daily in AM. Dose increased on 08/31/2012. / (Zestoretic) albuterol (albuterol 90 mcg/inh inhalation aerosol with adapter) 2 puff(s) Inhalation four times a day as needed for Shortness of breath / Wheezing calcium-vitamin D (Caltrate 600 with D 600 mg-400 intl units oral tablet) 1 tab(s) Oral two times a day with food with plenty of water APAP/ASA/caffeine (Excedrin Migraine) 3 tab(s) Oral once as needed for Headache Attention: If you have any medications at home that are not on this list, DO NOT take them until youcontact your provider for clarification. Additional Information: Source: [facility] POWERCHART Document Id: [id number] Miscellaneous - Riley Sanchez M.D. - 01/28/2013 2:57 PM CDT Ambulatory Vitals Height Weight Ambulatory Vitals Height Weight Entered On: 01/28/2013 14:57 CDT Performed On: 01/28/2013 14:57 CDT by RILEY SANCHEZ MD Vitals/Ht/Wt Peripheral Pulse Rate : 96 /min Heart Rhythm : Regular RILEY SANCHEZ MD - 01/28/2013 14:57 CDT Source: [facility] POWERCHART Document Id: [id number] CDT!4 Miscellaneous - Juan Francisco Mckinney L.P.N. - 01/28/2013 2:38 PM CDT Adult Newspaper Vendor Intake/History Adult Newspaper Vendor Intake/History Entered On: 01/28/2013 14:43 CDT Performed On: 01/28/2013 14:38 CDT by JUAN FRANCISCO MCKINNEY Intake Chief Complaint : pre op for surgery on Friday at [facility] Temperature Core : 36.6 DegC(Converted to: 97.9 DegF) Peripheral Pulse Rate : 101 /min (HI) Respiratory Rate : 20 /min Systolic Blood Pressure : 128 mmHg Diastolic Blood Pressure : 74 mmHg NIBP Mean : 92 mmHg BP Location : Right upper extremity Blood Pressure Cuff Size : Large SpO2 : 95 % Oxygen Therapy : Room air Height : 174.6 cm(Converted to: 5 ft 9 inch(es), 68.74 inch(es)) Actual Weight : 104.4 kg(Converted to: 230 lb 3 oz) Weight Source : Standing scale Dosing Weight Clinic : 104.4 kg Clinic BSA : 2.25 Body Mass Index : 34.25 kg/m2 Neck Circumference : 46.4 cm(Converted to: 18 inch(es)) JUAN FRANCISCO MCKINNEY - 01/28/2013 14:38 CDT General Info Information Given By : Patient Languages : Moldovan JUAN FRANCISCO MCKINNEY - 01/28/2013 14:38 CDT Subjective Pain Symptoms : No JUAN FRANCISCO MCKINNEY - 01/28/2013 14:38 CDT Dependent Habits Tobacco Use/Currently Using : Yes Tobacco Use/Advised to Quit : Yes Exposure to Tobacco Smoke : Patient smokes Smoking Status : Current every day smoker JUAN FRANCISCO MCKINNEY - 01/28/2013 14:38 CDT Tobacco Use Grid Type : Cigarettes Cigarette Use Packs/Day : 0.5 Last Use : today JUAN FRANCISCO MCKINNEY - 01/28/2013 14:38 CDT Caffeine Use Grid Caffeine Use : Current Type : Coffee, Tea Frequency : Daily Amount : 2 cup coffee/2 tea daily JUAN FRANCISCO MCKINNEY - 01/28/2013 14:38 CDT Recreational Drug Use Grid Drug Use : None JUAN FRANCISCO MCKINNEY - 01/28/2013 14:38 CDT Source: [facility] Document Id: [id number] CDT!44 Miscellaneous - Juan Francisco Mckinney L.P.NBhavesh - 01/28/2013 2:38 PM CDT Obstructive Sleep Apnea Obstructive Sleep Apnea Entered On: 01/28/2013 14:44 CDT Performed On: 01/28/2013 14:38 CDT by JUAN FRANCISCO MCKINNEY MICKEY Screening Known Obstructive Sleep Apnea : No - NOT diagnosed with MICKEY JUAN FRANCISCO MCKINNEY - 01/28/2013 14:38 CDT MICKEY Assessment Do you have high [...] Apnea Clinical Score HTN Calc : 21 JUAN FRANCISCO MCKINNEY - 01/28/2013 14:38 CDT Source: [facility] Document Id: [id number] CDT!10 documented in this encounter Plan of Treatment Upcoming Encounters Date Type Specialty Care Team Description 04/12/2022 Office Visit Cardiovascular Disease Simone Gooden AP RN, C.N.P. [address] [phone] (Wo rk) documented as of this encounter Visit Diagnoses Not on filedocumented in this encounter Additional Health Concerns Assessment Noted Time PHQ-9 Depression Total Score: 12 12/10/2012 8:45 AM CD T documented as of this encounter
--- OUTSIDE RECORDS SUMMARY | 2022-03-29 07:57 | XMS_ITS | Encounter Summary ---
:1950 Author Organization [facility] Address [address] [place] [address] Care Team Providers Name Role Phone Unavailable Primary Care Provider Unavailable Encounter Details Date Type Department Care Team Description 05/17/2014 Hospital Encounter HX NO MAPPING Jase Hernandez M.D. [address] [facility] [address] [place], [place] [address] (Wo rk) Social History Tobacco Use Types [...] How often do you attend judaism or jewish services? 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 They will contact patient to schedule. Addendum by RILEY SANCHEZ MD on 16 March 2015 11:41:19 DRILL SHARPENER OPERATOR From: RILEY SANCHEZ MD To: JOSE Sanchez Nurse; Sent: 03/16/2015 11:41:19 DRILL SHARPENER OPERATOR Subject: RE: *Phone Message Actions: Notify patient- refer to General Message, Notify patient of Future Order Please order Kidney ultrasound at [facility]. Dx: Right kidney mass, upper pole per recent CTof lumbar spine. Addendum by CHUCKY DUNCAN LPN on 16 March 2015 11:03:35 DRILL SHARPENER OPERATOR From: CHUCKY DUNCAN LPN (FB Laura Nurse) To: RILEY SANCHEZ MD; Sent: 03/16/2015 11:03:35 DRILL SHARPENER OPERATOR Subject: FW: *Phone Message Addendum by CHUCKY DUNCAN LPN on 16 March 2015 11:03:19 DRILL SHARPENER OPERATOR Patient notified. He will do whatever you think is best. There is ultrasound availability here on 03/27/2015 but the hospital doctors made him feel like it needed to be done urgently. Please advise. Addendum by RILEY SANCHEZ MD on 16 March 2015 07:53:20 DRILL SHARPENER OPERATOR From: RILEY SANCHEZ MD To: JOSE Sanchez Nurse; Sent: 03/16/2015 07:53:20 DRILL SHARPENER OPERATOR ! Subject: RE: *Phone Message Actions: Notify patient- refer to General Message, Notify patient of Future Order Order is in EHR. I ordered it yesterday, 03/15/2015 at 11:16:36. I don't know why PSR didn't see my order. If we don't have US tech, please schedule Kidney ultrasound at [facility]. Dx: 3.8 cm mass from right kidney upper pole per CT of lumbar spine done at [facility] on 03/06/2015. Addendum by ROBINSON LEÓN on 15 March 2015 13:21:17 DRILL SHARPENER OPERATOR From: ROBINSON LEÓN ( Laura Nurse) To: JOSE Sanchez Nurse; Sent: 03/15/2015 13:21:17 DRILL SHARPENER OPERATOR Subject: FW: *Phone Message There are no orders in the queue for an ultrasound at our clinic and there are no available appointments in [place] for an ultrasound for quite awhile. Patient states that Dr. Sanchez wanted him to havean ultrasound in [place] tomorrow. I am wondering if this was supposed to be scheduled at [facility]. Please call patient back at [phone] to advise. Addendum by EDER DOWLING CMA on 15 March 2015 11:58:05 DRILL SHARPENER OPERATOR From: EDER DOWLING CMA ( Laura Nurse) To: RILEY SANHCEZ MD; Sent: 03/15/2015 11:58:05 DRILL SHARPENER OPERATOR Subject: FW: *Phone Message From: CHARMAINE RATLIFF ( Jevon Silk Screen Cutter) To: JOSE Sanchez Nurse; Sent: 03/15/2015 11:30:12 DRILL SHARPENER OPERATOR Subject: *Phone Message Caller is: ( x ) Patient ( ) Mother ( ) Father ( ) Spouse ( ) Daughter ( ) Son ( ) Pharmacy ( ) Other: Physician: Patient MRN #: Reason for Call: Patient states Dr. Sanchez just called him and told him to schedule an ultrasound. Patient called and there is no order for an ultrasound. Please place order and call patient when it can be scheduled. [phone] Message: Advice/Action: Source used: ( ) Verbalizes [...] back cell phone number ( ) Source: [facility] POWERCHART Document Id: [id number] documented in this encounter Plan of Treatment Upcoming Encounters Date Type Specialty Care Team Description 04/12/2022 Office Visit Cardiovascular Disease Simone Gooden AP RN, C.N.P. [address] [phone] (Wo rk) documented as of this encounter Visit Diagnoses Not on filedocumented in this encounter Additional Health Concerns Assessment Noted Time PHQ-9 Depression Total Score: 3 01/17/2014 1:01 PM CDT documented as of this encounter
--- OUTSIDE RECORDS SUMMARY | 2022-03-29 07:57 | XMS_ITS | Encounter Summary ---
:1950 Author Organization [facility] Address [address] [place] [address] Care Team Providers Name Role Phone Unavailable Primary Care Provider Unavailable Encounter Details Date Type Department Care Team Description 07/19/2013 Hospital Encounter HX [facility] Tamika Camejo M.D. [address] [place] [phone] (Wo rk) Social History Tobacco [...] How often do you attend yazdanism or episcopal services? 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 - 07/19/2013 1:53 PM CDT [id number] CHIEF COMPLAINT / REASON FOR VISIT History of bladder cancer. 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 Pathology revealed inflammatory changes. At his most recent cystoscopy on 07/05/3013, on the left lateral wall there was a 1 - 1.5 cm patch that is slightly raised and red. Biopsies within the operating room on 07/12/2013. Pathology was negative for malignancy, revealing inflammatory changes. Today, the patient denies any hematuria or dysuria. He reports that the biopsy was tolerated well. MEDICATIONS Reviewed, no changes per EMR ALLERGIES Reviewed, no changes per EMR SYSTEMS REVIEW Systems reviewed unchanged. VITAL SIGNS TEMPERATURE: 36.8 DegC PERIPHERAL PULSE RATE: 72 /min BLOOD PRESSURE: 146/84 mmHg PHYSICAL EXAMINATION GENERAL: The patient is well nourished, well developed, and in no apparent distress. There are no communication barriers. He is alert and oriented X3. HEAD: No abnormalities of appearance. No facial abnormalities. LUNGS: Normal respiratory movements. No shortness of breath. SKIN: No peripheral cyanosis or edema. DIAGNOSTIC IMPRESSION / REPORT / PLAN 1. History of bladder cancer, negative biopsies. PLAN: As the patients pathology report was negative for recurrence, he is to return in 6 months for a follow-up appointment to include bladder cancer surveillance and repeat cystoscopy. This document serves as a record of services personally performed by Dr. Tamika Camejo. It was created on his behalf by Narinder Malagon, a trained medical staff services coordinator. The creation of this record is based on the scribe's personal observations and the provider's statements to him. This document has been checked and approved by the attending provider. Tamika Camejo M.D./catherine Electronically Signed By: TAMIKA CAMEJO MD On: 07/19/2013 03:26 PM Source: [facility] MHSDOLBEYNFREDDYRADSYS Document Id: [id number] documented in this encounter Miscellaneous Notes Miscellaneous - Tamika Camejo M.D. - 07/19/2013 2:34 PM CDT Ambulatory Patient Summary [address] [id number] Visit Information Name: CHRIS SEVEN FABRICE [facility] Number: [id number] Current Date: 07/19/2013 14:34:36 Physicians Attending Provider: TAMIKA CAMEJO MD Primary [...] the Following Medications: Medication list as of 07-19-13 14:34 Attention: If you have any medications at [...] Date Time Location Reason Provider 12/16/2013 08:40 [facility] Annual Wellness Visit, review medical problems & renew medications. Riley Sanchez MD Attention: Contact your local Clinic if further appointment detail needed. Your Goals/Additional instructions: Source: [facility] POWERCHART Document Id: [id number] Miscellaneous - Tamika Camejo M.D. - 07/19/2013 2:34 PM CDT Ambulatory Discharge Medication List [address] [id number] Visit Information Name: SEVEN SALAZAR [facility] Number: [id number] Visit Date: 07/19/2013 14:34:34 Attending Provider: TAMIKA CAMEJO MD Primary Care [...] the Following Medications: Medication list as of 07-19-13 14:34 Attention: If you have any medications at home that are not on this list, DO NOT take them until youcontact your provider for clarification. Give a copy of your medication list to your primary care provider. Update your medication list any time medications or doses are changed and carry your medication list at all times in case of emergency. Additional Information: Source: [facility] POWERCHART Document Id: [id number] Miscellaneous - Nikole Guajardo R.N. 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 Entered On: 07/19/2013 14:21 CDT Performed On: 07/19/2013 14:19 CDT by NIKOLE GUAJARDO Intake Chief Complaint : bladder bx results Temperature Core : 36.8 DegC(Converted to: 98.2 DegF) Peripheral Pulse Rate : 72 /min Systolic Blood Pressure : 146 mmHg (HI) Diastolic Blood Pressure : 84 mmHg NIBP Mean : 105 mmHg BP Location : Left upper extremity Blood Pressure Cuff Size : Regular NIKOLE GUAJARDO - 07/19/2013 14:19 CDT General Info Information Given By : Patient Preferred Communication Mode : Verbal Languages : Mosotho NIKOLE GUAJARDO - 07/19/2013 14:19 CDT Subjective Pain Symptoms : No NIKOLE GUAJARDO - 07/19/2013 14:19 CDT Dependent Habits Tobacco Use/Currently Using : Yes Exposure to Tobacco Smoke : Patient smokes Smoking Status : Current every day smoker NIKOLE GUAJARDO 07/19/2013 14:19 CDT Tobacco Use Grid Type : Cigarettes Cigarette Use Packs/Day : 0.5 Last Use : today NIKOLE GUAJARDO - 07/19/2013 14:19 CDT Caffeine Use Grid Caffeine Use : Current Type : Coffee, Tea Frequency : Daily Amount : 2 cup coffee/2 tea daily NIKOLE GUAJARDO - 07/19/2013 14:19 CDT Recreational Drug Use Grid Drug Use : None NIKOLE GUAJARDO - 07/19/2013 14:19 CDT Source: [facility] [employer] Document Id: [id number] CDT!34 documented in this encounter Plan of Treatment Upcoming Encounters Date Type Specialty Care Team Description 04/12/2022 Office Visit Cardiovascular Disease Simone Gooden AP RN, C.N.P. [address] [phone] (Wo rk) documented as of this encounter Visit Diagnoses Not on filedocumented in this encounter Additional Health Concerns Assessment Noted Time PHQ-9 Depression Total Score: 12 12/10/2012 8:45 AM CD T documented as of this encounter
--- OUTSIDE RECORDS SUMMARY | 2022-03-29 07:57 | XMS_ITS | Encounter Summary ---
:1950 Author Organization [facility] Address [address] [place] [address] Care Team Providers Name Role Phone Unavailable Primary Care Provider Unavailable Encounter Details Date Type Department Care Team Description 01/17/2014 Hospital Encounter HX [facility] Riley Jimenez M.D. [address] [facility], [facility] [address] [phone] Social History Tobacco Use Types Packs/Day [...] How often do you attend christian or jew services? 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 - 01/17/2014 12:53 PM CDT [id number] CHIEF COMPLAINT/ REASON FOR VISIT 1. Welcome to Medicare examination. 2. Review chronic medical problems. 3. Renew medication. HISTORY OF PRESENT ILLNESS Mik is a 63-year-old male who presents to the clinic today for the above complaints. His last physical examination was on 12/10/2012. He just started Medicare. We discussed Medicare visit preventive services. I updated his medical and surgical history, immunization record, family and social history, allergies, and medication list. Today, his PHQ-9 score was 3. I advised him to receive an influenza immunization this fall. He needs a Pneumovax immunization andwill receive it today. He doesnt see an eye doctor regularly. He has dentures and sees his dentist once a year. I advised him to see eye doctor every year and a dentist every six months. He is physically active. He is due for a screening PSA and lipid profile. His last colonoscopy was on 11/25/2013. He is low risk. Need to repeat screening colonoscopy in 2021. Patient has chronic bronchitis. He mentioned that he has had a cold for the last week or so. He is feeling better at todays visit, but is coughing intermittently. I suggested he take Prednisone 50 mg daily for one week. He saw Dr. Jatinder Camejo, Urologist on 07/19/2013 for history of urinary bladder cancer. No blood inthe urine or pain upon urination. He will follow with Dr. Camejo. He gets up twice at night to go to the bathroom. He has hypertension. His blood pressure is OK at todays visit. He takes lisinopril/hydrochlorothiazide. The patient denies any chest pain, shortness of breath, dizziness, lightheadedness, coughing up blood or phlegm, leg swelling, or gout. Patient recently restarted smoking. We discussed smoking cessation. Need to check abdominal ultrasound for aneurysm. 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 Patient feels that his arthritis is stable. His knees have been bothersome, but nothing serious. He has arthritis in his knee, and occasionally swells up. We discussed further evaluation and management. He has seen Dr. King in the past for an injection, which he feels didnt help. I advised him to lose weight. He doesnt want any treatment at this time. Patient has gastroesophageal reflux disease. There was no indigestion, acid reflux, choking, or bloody or black stools. He will continue antireflux measures. I reviewed and updated his medication list. We discussed potential side effects. There are no further concerns at this time. MEDICATIONS Tudorza Pressair 1 puff inhalation twice daily. Albuterol inhaler 2 puffs 4 times a day as needed. Excedrin Migraine 3 tablets by mouth as needed for headache. Calcium with vitamin D 600 mg/400 units 1 tablet by mouth twice a day. Lisinopril/hydrochlorothiazide 20 mg/12.5 mg 2 tablets by mouth daily in the morning. Prednisone 50 mg by mouth daily for 7 days. ALLERGIES No known drug allergies. SYSTEMS REVIEW As per the history of present illness. All other systems are reviewed and are negative. PAST MEDICAL/ SURGICAL HISTORY History of right kidney cyst per [...] esophagogastroduodenoscopy, 11/25 1012. Status post colonoscopy, 11/26/2011. PREVENTIVE SERVICES Colonoscopy: 11/26/2011. PSA: 12/10/2012. Pneumovax: 01/17/2014. Tetanus booster: 02/12/2010. Influenza: 02/04/2012. Zostavax: N/A. SOCIAL HISTORY He is single. He lives alone. He smokes cigarettes. He denies drug abuse. He drinks alcohol twice a month. He does not do exercise but he is physically active. He is still working at [employer] in [place], [place]. FAMILY HISTORY Asthma in brother. Father had liver, lung, and pancreas cancer. Lung cancer in sister. Mother has cataract and glaucoma. Hearing loss in father. Hypertension in mother and brother. Parkinsons disease in father. VITAL SIGNS HEIGHT: 172 cm. WEIGHT: 97 kg. BMI: 32.79 kg/m2. TEMP: 37.0 Deg C. PULSE: 60 /min. RESP: 20 /min. O2SAT: 97 %. SYSTOLIC: 145 mmHg. DIASTOLIC: 68 mmHg. SR: 121 mmHg/62 mmHg. PHYSICAL EXAMINATION GENERAL: Patient is sitting. No distress. Able to talk without interruption. He is obese. SKIN: No rash, bruise or nodules. HEAD: No facial rash, asymmetry or sinus tenderness. EYES: PERRLA. EOMI. No pallor, icterus or conjunctivitis. He has bilateral cataract surgery. ENT: No nasal congestion, discharge or bleeding. There is no ear infection or discharge. He has bilateral ear wax. No mastoid tenderness. Tongue is moist and midline. No oral lesions. LYMPH NODES: No cervical, supraclavicular, axillary, inguinal or femoral lymphadenopathy. THYROID: No thyromegaly. No thyroid thrill or bruit. BREASTS: No nipple discharge or retraction. No palpable breast mass or tenderness. PERIPHERAL VESSELS: Good radial, femoral and pedal pulses. HEART: No carotid bruit. No JVD. Regular rhythm. There is no S3, gallop, murmur or thrill. LUNGS: Normal respiratory effort. Normal percussion. He has some congestion and wheezing. ABDOMEN: Moves with respiration. Bowel sounds present. Soft. No rebound tenderness, guarding or rigidity. No organomegaly. RECTUM: Intact anal sphincter tone. No hemorrhoid or rectal mass. Stool guaiac negative. PROSTATE: Appropriate for age. No tenderness. Smooth surface. [...] Normal mood and affect. NEURO: Grossly nonfocal. IMPRESSION/ REPORT/ PLAN 1. Welcome to Medicare examination. We discussed Medicare initial physical exam and preventive screening services. He answered patient screening questionnaire for hearing screening, safety screening and activity of daily living. Please see copy scanned into EMR. He needs to eat healthy diet and exercise regularly to maintain healthy body weight and BMI. Today BMI is 32.79 kg/m2. Today PHQ-9 score is 3. Advised him to get an influenza immunization this fall. Pneumovax immunization was given today. Advised to see eye doctor once a year and dentist every six months. He needs health maintenance every year. 2. History of urinary bladder cancer. He is asymptomatic. He saw Dr. Camejo, Urologist on 07/19/2013. He needs to schedule an appointment with Dr. Camejo. Will check urine for cytology. 3. Tobacco abuse. I recommended smoking cessation. He is not read yet. We discussed complications. 4. Bilateral cerumen impaction. Ear irrigation was done today. He feels better. 5. Hypertension. Blood pressure is controlled. He is stable from a cardiac standpoint. Advised him to continue sodium controlled diet and current medication. Blood pressure goal is less than 140/90 mmHg. Need to continue cardiovascular risk factors modification. 6. Chronic bronchitis. Patient is stable from respiratory standpoint. He has some acute bronchitis with bronchospasm with cold symptoms. Will treat with Prednisone 50 mg daily for 7 days. He needs to use inhaler regularly. Again, he needs to quit smoking tobacco. 7. Gastroesophageal reflux disease. It is controlled. Patient will continue antireflux measures. 8. Knee osteoarthritis. He needs to see Dr. King and/or Dr. Acuña if he continues to have problems. He needs to lose weight. He can take over the counter pain medication as needed. 9. Advanced directive. He was given information. 10. Authorization to Disclose Protected Health Information. The patient signed authorization to disclose protected health information. Please see copy scanned into EMR. 11. Renew medications. The following medications were renewed: Lisinopril/hydrochlorothiazide, Tudorza, Albuterol. Todays studies: Urine Cytology, EKG, Spirometry, Abdominal ultrasound for AAA screening. The patient will return to the clinic next week for following blood tests: Fasting BMP, CBC, HFP, Lipid, TSH, PSA. He will return to the clinic in one year for Medicare annual wellness visit, review chronic medical problems, and renew medication. This document serves as a record of services personally performed by Dr. Riley Sanchez. It was created on their behalf by Juan Ramos, a trained manager of medical. The creation of this record is based on the scribe's personal observations and the provider's statements to them. This document has been checked and approved by the attending provider. Riley Sanchez M.D./arti Electronically Signed By: RILEY SANCHEZ MD On: 02/02/2014 06:57 PM Modified by and Electronically Signed by: RILEY SANCHEZ MD On: 02/02/2014 06:57 PM Source: [facility] [email or web address] Document Id: [id number] documented in this encounter Miscellaneous Notes Miscellaneous - Riley Sanchez M.D. - 01/17/2014 2:04 PM CDT Ambulatory Patient Summary [address] [id number] Visit Information Name: [facility] Number: [id number] Current Date: 01/17/2014 14:04:14 Physicians Attending Provider: RILEY SANCHEZ MD Primary [...] Inhalation, two times a day Routed to [place] [id number] albuterol (albuterol CFC free 90 mcg/inh inhalation aerosol) 2 puff(s), Inhalation, every 4 hours asneeded for Shortness of breath / Wheezing use with spacer chamber Routed to [address] [address] APAP/ASA/caffeine (Excedrin Migraine) 3 Tablet(s), Oral, once as needed for Headache calcium-vitamin D (Caltrate 600 with D 600 mg-400 intl units oral tablet) 1 Tablet(s), Oral, two times a day with food with plenty of water lisinopril-hydrochlorothiazide (lisinopril-hydrochlorothiazide 20 mg-12.5 mg oral tablet) See Instructions 2 tab(s) PO Daily in AM. / (Zestoretic) This is a CHANGE Routed to [address] [address] predniSONE (predniSONE 50 mg oral tablet) 1 Tablet(s), Oral, once a day x 7 day(s) with food New Routed to [address] [address] Stop Taking the Following Medications: Medication list as of 01-17-14 14:04 Attention: If you have any medications [...] Electronically Signed By: RILEY SANCHEZ MD Signed On:17-JAN-2014 14:04:02 Your Allergies & Intolerances Substance Reaction Symptoms [...] local Clinic if further appointment detail needed. Earwax, Home Treatment Everyone produces earwax from the lining of the ear canal. It serves to lubricate and protect the ear. The wax that forms in the canal naturally moves toward the outside of the ear and falls out. Sometimes there will be a build-up of wax in the ear canal causing a blockage and loss of hearing. Directions are given below for home treatment. Home Care: If your doctor has advised you to remove a wax blockage yourself, follow these directions: ?? Unless a prescription medicine was given, you may use an iesx-zaw-ofevitt product made for clearing earwax (such as Debrox or Murine Earwax Drops). These contain carbamide peroxide and are ymlkcivlfryfk-dpy-tupuozo. Lie down with the blocked ear facing upward. Apply one dropper full of medicine and wait a few minutes. Wiggle the outer ear to get the solution to enter the canal. ?? Lean over a sink or basin with the blocked ear facing downward. Use a rubber bulb syringe filled with warm (not hot or cold) water to rinse the ear several times. Use gentle pressure only. ?? If you are having trouble draining the water out of your ear canal, put a few drops of rubbing alcohol (isopropyl alcohol) into the ear canal. This will help remove the remaining water. ?? Repeat this procedure once a day for up to three days or until your hearing is back to normal. Donot use this treatment for more than three days in a row.. Do Not ?? DO NOT use cold water to rinse the ear since this will make you dizzy. ?? DO NOT perform this procedure if you have an ear infection. ?? DO NOT perform this procedure if you have a ruptured eardrum. ?? DO NOT use cotton applicators/Q-tips, matches, toothpicks, jeanine pins, keys or other objects to clean the ear canal. This can cause infection of the ear canal or rupture of the eardrum. Because oftheir size and shape, it is common for cotton applicators/Q-tips to push the ear wax deeper into theear canal instead of removing it. This can make matters worse. Follow Up with your doctor or this facility if you are not improving after three cleaning attempts. Get Prompt Medical Attention if any of the following occur: ?? Worsening ear pain ?? Fever of 100.4?F (38?C) or higher, or as directed by your healthcare provider ?? Hearing does not return to normal after three days of treatment ?? Fluid drainage or bleeding from the ear canal ?? Swelling, redness or tenderness of the outer ear ?? Headache, neck pain or stiff neck ?? [id number] [facility], [address] [place] [address]. All rights reserved. This information is not intended as a substitute for professional medical care. Always follow your healthcare professional's instructions. Your Goals/Additional instructions: This document has images extracted. Please consider using [employer] for all your patient education needs. Source: [facility] POWERCHART Document Id: [id number] Miscellaneous - Riley Sanchez M.D. - 01/17/2014 2:04 PM CDT Ambulatory Discharge Medication List [address] [id number] Visit Information Name: [facility] Number: [id number] Visit Date: 01/17/2014 14:04:12 Attending Provider: RILEY SANCHEZ MD Primary Care [...] Inhalation, two times a day Routed to [facility] [address] [place] [address] albuterol (albuterol CFC free 90 mcg/inh inhalation aerosol) 2 puff(s), Inhalation, every 4 hours asneeded for Shortness of breath / Wheezing use with spacer chamber Routed to [facility] [address] [place] [address] APAP/ASA/caffeine (Excedrin Migraine) 3 Tablet(s), Oral, once as needed for Headache calcium-vitamin D (Caltrate 600 with D 600 mg-400 intl units oral tablet) 1 Tablet(s), Oral, two times a day with food with plenty of water lisinopril-hydrochlorothiazide (lisinopril-hydrochlorothiazide 20 mg-12.5 mg oral tablet) See Instructions 2 tab(s) PO Daily in AM. / (Zestoretic) This is a CHANGE Routed to [facility] [address] [place] [address] predniSONE (predniSONE 50 mg oral tablet) 1 Tablet(s), Oral, once a day x 7 day(s) with food New Routed to [facility] [address] [place] [address] Stop Taking the Following Medications: Medication list as of 01-17-14 14:04 Attention: If you have any medications [...] Electronically Signed By: RILEY SANCHEZ MD Signed On:17-JAN-2014 14:04:02 Additional Information: Source: [facility] [employer] Document Id: [id number] Miscellaneous - Chucky Duncan, L.P.N. - 01/17/2014 1:13 PM CDT Ambulatory Vitals Height Weight Ambulatory Vitals Height Weight Entered On: 01/17/2014 13:15 CDT Performed On: 01/17/2014 13:13 CDT by CHUCKY DUNCAN LPN Vitals/Ht/Wt Systolic Blood Pressure : 121 mmHg Diastolic Blood Pressure : 62 mmHg NIBP Mean : 82 mmHg BP Location : Right upper extremity Blood Pressure Cuff Size : Large Height : 172 cm(Converted to: 5 ft 8 inch(es), 68 inch(es)) CHUCKY DUNCAN LPN - 01/17/2014 13:13 CDT Source: [facility] POWERCHART Document Id: [id number] CDT!8 Miscellaneous - Chucky Duncan L.P.N. - 01/17/2014 1:08 PM CDT Adult Traffic Checker Intake/History Adult Traffic Checker Intake/History Entered On: 01/17/2014 13:13 CDT Performed On: 01/17/2014 13:08 CDT by CHUCKY DUNCAN LPN Intake Chief Complaint : physical. Last physical 12/10/2012 Temperature Core : 37.0 DegC(Converted to: 98.6 DegF) Apical Heart Rate : 60 /min Respiratory Rate : 20 /min Heart Rhythm : Irregular Systolic Blood Pressure : 145 mmHg (HI) Diastolic Blood Pressure : 68 mmHg NIBP Mean : 94 mmHg BP Location : Right upper extremity Blood Pressure Cuff Size : Large SpO2 : 97 % Oxygen Therapy : Room air Height : 172 cm(Converted to: 5 ft 8 inch(es), 68 inch(es)) Actual Weight : 97 kg(Converted to: 213 lb 14 oz) Weight Source : Standing scale Dosing Weight Clinic : 97 kg Clinic BSA : 2.15 Body Mass Index : 32.79 kg/m2 CHUCKY DUNCAN LPN - 01/17/2014 13:08 CDT General Info Information Given By : Patient Preferred Communication Mode : Verbal, Written Languages : Peruvian Is Patient Female and 13-50 no hysterectomy : No CHUCKY DUNCAN LPN - 01/17/2014 13:08 CDT Subjective Pain Symptoms : No CHUCKY DUNCAN LPN - 01/17/2014 13:08 CDT Dependent Habits Tobacco Use/Currently Using : Yes Tobacco Use/Advised to Quit : Yes Exposure to Tobacco Smoke : Patient smokes Smoking Status : Current every day smoker CHUCKY DUNCAN LPN - 01/17/2014 13:08 CDT Tobacco Use Grid Type : Cigarettes Cigarette Use Packs/Day : 0.5 Last Use : today CHUCKY DUNCAN LPN - 01/17/2014 13:08 CDT Caffeine Use Grid Caffeine Use : Current Type : Coffee, Tea Frequency : Daily Amount : 2 cup coffee/2 tea daily CHUCKY DUNCAN LPN - 01/17/2014 13:08 CDT Recreational Drug Use Grid Drug Use : None CHUCKY DUNCAN LPN - 01/17/2014 13:08 CDT Source: [facility] POWERCHART Document Id: [id number] CDT!46 Miscellaneous - Chucky Duncan L.P.NBhavesh - 01/17/2014 1:03 PM CDT Health Assessment Health Assessment Entered On: 01/17/2014 13:04 CDT Performed On: 01/17/2014 13:03 CDT by CHUCKY DUNCAN LPN Health Assessment Complete Health Assessment Complete or Modified : Annual Health Assessment Annual Health Assessment Completed : Yes CHUCKY DUNCAN LPN - 01/17/2014 13:03 CDT Nutrition Nutrition Risk Factors by History Adult : None CHUCKY DUNCAN LPN - 01/17/2014 13:03 CDT Functional Current Daily Living Assistance : None CHUCKY DUNCAN LPN - 01/17/2014 13:03 CDT Dependent Habits Tobacco Use/Currently Using : Yes Tobacco Use/Advised to Quit : Yes Exposure to Tobacco Smoke : Patient smokes Smoking Status : Current every day smoker CHUCKY DUNCAN LPN - 01/17/2014 13:03 CDT Tobacco Use Grid Type : Cigarettes Cigarette Use Packs/Day : 0.5 Last Use : today CHUCKY DUNCAN LPN - 01/17/2014 13:03 CDT Caffeine Use Grid Caffeine Use : Current Type : Coffee, Tea Frequency : Daily Amount : 2 cup coffee/2 tea daily CHUCKY DUNCAN LPN - 01/17/2014 13:03 CDT Recreational Drug Use Grid Drug Use : None CHUCKY DUNCAN LPN - 01/17/2014 13:03 CDT Psychosocial Domestic Abuse Concerns : None Roman Catholic Preference : Unknown CHUCKY DUNCAN LPN - 01/17/2014 13:03 CDT Advance Directive Advanced Directives : No CHUCKY DUNCAN LPN - 01/17/2014 13:03 CDT Educ Needs Learning Style Preference Adult Grid Patient : Printed materials Family : Printed materials CHUCKY DUNCAN LPN - 01/17/2014 13:03 CDT Source: [employer] Document Id: [id number] CDT!36 Miscellaneous - Chucky Duncan L.P.N. - 01/17/2014 1:01 PM CDT PHQ-9 PHQ-9 Entered On: 01/17/2014 13:03 CDT Performed On: 01/17/2014 13:01 CDT by CHUCKY DUNCAN LPN PHQ-9 Little [...] Several days Trouble concentrating on things : Not at all Moving or speaking slowly; restless or fidgety : Not at all Thoughts that you would be better off /hurting self : Not at all PHQ-9 Calculated Score : 3 Problems make work, home, or dealing with others : Not difficult at all CHUCKY DUNCAN LPN - 01/17/2014 13:01 CDT Source: [employer] Document Id: [id number] CDT!13 documented in this encounter Plan of Treatment Upcoming Encounters Date Type Specialty Care Team Description 04/12/2022 Office Visit Cardiovascular Disease Simone Gooden AP RN, C.N.P. [address] [phone] (Wo rk) documented as of this encounter Procedures Procedure Name Priority Date/Time Associated Diagnosis Comme nts CYTOLOGY, U Routine 01/17/2014 2:43 PM Results f or this CDT procedure are i n the results section . documented in this encounter Results Cytology, Urine (01/17/2014 2:43 PM CDT) [facility] gist Method Time Signature HX Spec See Comment POWERCHART [facility] Comment: RESULT: A. ??Urine, NOS: ??Received 40cc of yellow urine in PreservCyt Test Performed by: [place] [address] Stove Polisher: Cem cali III, M.D. Specimen (Source) Anatomical Collection Method Collection Time Re ceived Time Location / / Volume Laterality Urine 01/17/2014 2:43 PM CDT Riley Sanchez M.D. LAB URINE ORDERABLES Performing Organization Address City/State/ZIP Code Phon e Number POWERCHART documented in this encounter Visit Diagnoses Not on filedocumented in this encounter Additional Health Concerns Assessment Noted Time PHQ-9 Depression Total Score: 3 01/17/2014 1:01 PM CDT documented as of this encounter
--- OUTSIDE RECORDS SUMMARY | 2022-03-29 07:57 | XMS_ITS | Encounter Summary ---
:1950 Author Organization [facility] Address [address] [place] [address] Care Team Providers Name Role Phone Unavailable Primary Care Provider Unavailable Encounter Details Date Type Department Care Team Description 10/18/2014 Hospital Encounter HX [facility] Riley Jimenez M.D. [address] [facility], [facility] [address] [phone] Social History Tobacco Use Types Packs/Day [...] How often do you attend christian or denominational services? 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 - 10/18/2014 10:51 AM CDT [id number] CHIEF COMPLAINT/ REASON FOR VISIT Followup on chronic medical problems. HISTORY OF PRESENT ILLNESS Mik is a 60-year-old male who presents to the clinic today for a followup. I last saw him on 05/09/2014. He had questions about taking Furosemide. His blood pressure is good today. There was no leg swelling. He continues to smoke 1 pack of cigarettes a day. I advised him to quit and watch his sodium intake. Patient [facility] Sem[facility] 07[facility]2014 for followup on his left shoulder arthroplasty. He has left shoulder pain for the last month. Additionally, his right shoulder has tingling and numbness, and falls asleep on him. He has neck stiffness. He denies hand weakness. He is using Tudorza at least once a day, sometimes twice a day. He hasnt had to use rescue inhaler. He has history of chronic bronchitis. He denies fever, chills, coughing up phlegm or blood, or chest pain. I reviewed and updated his medication list. We discussed potential side effects. Otherwise, there are no additional questions, concerns, or complaints. MEDICATIONS Reviewed and updated as per the EHR on 10/18/2014. ALLERGIES Reviewed and updated as per the EHR on 10/18/2014. SYSTEMS REVIEW As per the history of present illness. All other systems are reviewed and are negative. PAST MEDICAL/ SURGICAL HISTORY Reviewed and updated as per the EHR on 10/18/2014. PREVENTIVE SERVICES Reviewed and updated as per the EHR on 10/18/2014. SOCIAL HISTORY Reviewed and updated as per the EHR on 10/18/2014. FAMILY HISTORY Reviewed and updated as per the EHR on 10/18/2014. VITAL SIGNS HEIGHT: 174 cm. WEIGHT: 101 kg. BMI: 33.36 kg/m2. PULSE: 75 /min. RESP: 16 /min. SYSTOLIC: 139 mmHg. DIASTOLIC: 78 mmHg. PHYSICAL EXAMINATION GENERAL: Patient is sitting. No distress. Able to talk without interruption. HEAD: No facial rash, asymmetry, or sinus tenderness. ENT: No nasal congestion, discharge, or bleeding. There is no ear infection or discharge. No mastoidtenderness. Tongue is moist and midline. No oral lesions. LYMPH NODES: No cervical or supraclavicular lymphadenopathy. HEART: No carotid bruit. No JVD. Regular rhythm. There is no S3, gallop, murmur, or thrill. LUNGS: Normal respiratory effort. Clear to auscultation. Normal percussion. He has some congestion in left lung. EXTREMITIES: No clubbing, cyanosis, edema, infection, or calf tenderness. NEURO: Grossly nonfocal exam. IMPRESSION/ REPORT/ PLAN 1. Hypertension. Blood pressure is controlled. He is stable from a cardiac standpoint. He doesnt take Furosemide and he doesnt need to take it. There was no leg swelling. Need to continue sodium controlled diet and current medication. He needs to quit smoking. Blood pressure goal is less than 140/90 mmHg. Need to continue cardiovascular risk factors modification. 2. Left shoulder pain. He had shoulder surgery. He will follow with Dr. Acuña in November 2014. 3. Right shoulder numbness and tingling. 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 There is no weakness. He will discuss with Dr. Acuña. The patient will return to the clinic in 3 months for Medicare physical exam, review medical problems, renew medications, and following tests: Fasting BMP, CBC, HFP, Lipid, PSA, TSH, EKG, and Spirometry. This document serves as a record of services personally performed by Dr. Riley Sanchez. It was created on their behalf by Juan Ramos, a trained medical staff services manager. The creation of this record is based on the scribe's personal observations and the provider's statements to them. This document has been checked and approved by the attending provider. Riley Sanchez M.D./arti Electronically Signed By: RILEY SANCHEZ MD On: 10/27/2014 07:59 AM Modified by and Electronically Signed by: RILEY SANCHEZ MD On: 10/27/2014 07:59 AM Source: [facility] MHSDOLBEYNONRADSYS Document Id: [id number] documented in this encounter Miscellaneous Notes Miscellaneous - Riley Sanchez M.D. - 10/18/2014 11:32 AM CDT Ambulatory Patient Summary [address] [id number] Visit Information Name: [facility] Number: [id number] Current Date: 10/18/2014 11:32:09 Physicians Attending Provider: RILEY SANCHEZ MD Primary [...] / (Zestoretic) Stop Taking the Following Medications: APAP/ASA/caffeine (Excedrin Migraine) calcium-vitamin D (Caltrate 600 with D 600 mg-400 intl units oral tablet) furosemide (furosemide 20 mg oral tablet) Medication list as of 10-18-14 11:32 Attention: If you have any medications at [...] Electronically Signed By: RILEY SANCHEZ MD Signed On:18-OCT-2014 11:31:57 Your Allergies & Intolerances Substance Reaction Symptoms [...] local Clinic if further appointment detail needed. High Blood Pressure --Established High Blood Pressure (Hypertension) is a chronic disease. The cause is unknown in most cases. It can usually be controlled with lifestyle changes and/or medicines. Symptoms of high blood pressure may include headache, dizziness, visual changes, chest pain and shortness of breath. Sometimes it causes no symptoms at all. However, even if there are no symptoms, untreated high blood pressure increases therisk of heart attack, also known as acute myocardial infarction, or AMI, and stroke. It is a serioushealth risk and should not be ignored. A normal blood pressure is 120/80 or less. The first (top) number is the systolic pressure. The second (bottom) number is the diastolic pressure. Hypertension exists when either the top number is 140 or higher, OR the bottom number is 90 or higher on repeated measurements. Home Care: All patients with high blood pressure should do the following to lower their pressure. If you are onmedicines, then these methods may reduce or eliminate your need for medicines in the future. Begin a weight loss program if you are overweight. Reduce your salt intake. ?? Avoid high salt foods (olives, pickles, smoked meats, salted potato chips, etc.). ?? Do not add salt to your food at the table. ?? Use only small amounts of salt when cooking. Begin an exercise program. Discuss with your doctor what type of exercise program would be best for you. It doesn't have to be difficult. Even brisk walking for 20 minutes three times a week is a good form of exercise. Avoid medicines which contain heart stimulants. This includes many cold and sinus decongestant pillsand sprays as well as diet pills. Check the warnings about hypertension on the label. Stimulants such as amphetamine or cocaine could be lethal for someone with hypertension. Never take these. Limit your caffeine intake or switch to caffeine-free products. Stop smoking. If you are a long-time smoker, this can be hard. Enroll in a stop- smoking program to improve your chance of success. Learning how to handle stress better is an important part of any program to lower blood pressure. Learn about relaxation methods such as meditation, yoga or biofeedback. If medicines were prescribed, take them exactly as directed. Missing doses may cause your blood pressure get out of control. Consider buying an automatic blood pressure machine (available at most pharmacies). Use this to monitor your blood pressure at home and report the results to your doctor. Follow Up: Regular visits to your own physician for blood pressure checks and medicine adjustment is an important part of your care. Make a follow-up appointment as directed by our staff. Get Prompt Medical Attention if any of the following occur: ?? Chest pain or shortness of breath ?? Severe headache ?? Throbbing or rushing sound in the ears ?? Nosebleed ?? Sudden severe abdominal pain ?? Extreme drowsiness, confusion or fainting ?? Dizziness or vertigo (dizziness with spinning sensation) ?? Weakness of an arm or leg or one side of the face ?? Difficulty with speech or vision ?? [facility], [address] [place] [address]. All rights reserved. This information is not intended as a substitute for professional medical care. Always follow your healthcare professional's instructions. Low-Salt Choices Eating salt (sodium) can make your body retain too much water. Excess water makes your heart work harder. Canned, packaged, and frozen foods are easy to prepare, but they are often high in sodium. Hereare some ideas for low-salt foods you can easily prepare yourself. For Breakfast ?? Fruit or fruit juice ?? Bread or an Belarusian muffin ?? Shredded wheat ?? Jarratt tortillas ?? Steamed rice, unsalted ?? Hot cereal, regular (not instant) made without salt Stay away from: ?? Sausage, miller, ham ?? Flour tortillas ?? Packaged muffins, pancakes, and biscuits For Lunch and Dinner ?? Fresh fish, chicken, turkey, or meat-- baked, broiled, or roasted without salt ?? Dry beans, cooked without salt ?? Tofu, stir-fried without salt Stay away from: ?? Lunch meat ?? Cheese ?? Tomato juice and catsup ?? Canned vegetables, soups, fish ?? Packaged gravies and sauces ?? Olives, pickles, relish ?? Bottled salad dressings For Snacks and Desserts ?? Yogurt ?? Popcorn, air popped, unsalted Stay away from: ?? Pies ?? Canned and packaged puddings ?? Pretzels, chips, crackers, and nuts--unless the label says unsalted ?? [facility], [address] [place] [address]. All rights reserved. This information is not intended as a substitute for professional medical care. Always follow your healthcare professional's instructions. Your Goals/Additional instructions: This document has images extracted. Please consider using [employer] for all your patient education needs. Source: [facility] POWERCHART Document Id: [id number] Miscellaneous - Riley Sanchez M.D. - 10/18/2014 11:32 AM CDT Ambulatory Discharge Medication List [address] [id number] Visit Information Name: SEVEN [facility]AR [facility] Number: [id number] Visit Date: 10/18/2014 11:32:07 Attending Provider: RILEY SANCHEZ MD Primary Care [...] / (Zestoretic) Stop Taking the Following Medications: APAP/ASA/caffeine (Excedrin Migraine) calcium-vitamin D (Caltrate 600 with D 600 mg-400 intl units oral tablet) furosemide (furosemide 20 mg oral tablet) Medication list as of 10-18-14 11:32 Attention: If you have any medications at [...] Electronically Signed By: RILEY SANCHEZ MD Signed On:18-OCT-2014 11:31:57 Additional Information: Source: [facility] POWERCHART Document Id: [id number] Miscellaneous - Juany Duncan L.P.N. 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 left shoulder pain for one month 3. right shoulder falls asleep Peripheral Pulse Rate : 75 /min Respiratory Rate : 16 /min Systolic Blood Pressure : 139 mmHg Diastolic Blood Pressure : 78 mmHg NIBP Mean : 98 mmHg BP Location : Right upper extremity Blood Pressure Cuff Size : Large Height : 174 cm(Converted to: 5 ft 9 inch(es), 69 inch(es)) Actual Weight : 101 kg(Converted to: 222 lb 11 oz) Weight Source : Standing scale Dosing Weight Clinic : 101 kg Clinic BSA : 2.21 Body Mass Index : 33.36 kg/m2 JUANY DUNCAN LPN - 10/18/2014 11:00 CDT General Info Information Given By : Patient Preferred Communication Mode : Verbal, Written Languages : Belarusian Is Patient Female and 13-50 no hysterectomy : No JUANY DUNCAN LPN - 10/18/2014 11:00 CDT Subjective Pain Symptoms : Yes JUANY DUNCAN LPN - 10/18/2014 11:00 CDT Pain Scale Pain Scale Verbal 0-10 : Open JUANY DUNCAN LPN - 10/18/2014 11:00 CDT Pain Pain Assessment Grid Pain 1 Location : Shoulder Laterality : Left JUANY DUNCAN LPN - 10/18/2014 11:00 CDT Dependent Habits Tobacco Use/Currently Using : Yes Exposure to Tobacco Smoke : Patient smokes Smoking Status : Current every day smoker JUANY DUNCAN LPN - 10/18/2014 11:00 CDT Tobacco Use Grid Type : Cigarettes Cigarette Use Packs/Day : 0.5 JUANY DUNCAN HYDRAULICS ENGINEER - 10/18/2014 11:00 CDT Caffeine Use Grid Caffeine Use : Current Type : Coffee, Tea Frequency : Daily Amount : 2 cup coffee/2 tea daily JUANY DUNCAN SINDHU STATON - 10/18/2014 11:00 CDT Recreational Drug Use Grid Drug Use : None JUANY DUNCAN SINDHU STATON - 10/18/2014 11:00 CDT Source: [employer] Document Id: [id number] documented in this encounter Plan of Treatment Upcoming Encounters Date Type Specialty Care Team Description 04/12/2022 Office Visit Cardiovascular Disease Simone Gooden AP RN, C.N.P. [address] [phone] (Wo rk) documented as of this encounter Visit Diagnoses Not on filedocumented in this encounter Additional Health Concerns Assessment Noted Time PHQ-9 Depression Total Score: 3 01/17/2014 1:01 PM CDT documented as of this encounter
--- OUTSIDE RECORDS SUMMARY | 2022-03-29 07:57 | XMS_ITS | Encounter Summary ---
:1950 Author Organization [facility] Address [address] [place] [address] Care Team Providers Name Role Phone Unavailable Primary Care Provider Unavailable Encounter Details Date Type Department Care Team Description 07/12/2013 Hospital Encounter HX NO MAPPING Darlene Camejo M.D. [address] [place], [place] [phone] (Wo rk) Social History [...] How often do you attend buddhist or jain services? 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 [address] [phone] (Wo rk) documented as of this encounter Procedures Procedure Name Priority Date/Time Associated Diagnosis Comme [facility] SURGICAL PATHOLOGY Routine 07/12/2013 12:00 AM Re sults for this CDT procedure are i n the results section. SURGICAL PATHOLOGY Routine 07/12/2013 12:00 AM Re sults for this CDT procedure are i n the results section. documented in this encounter Results Pathology Surgical Pathology (07/12/2013 12:00 AM CDT) Specimen (Source) Anatomical Location Collection Method / Collectio n Time Received Time / Laterality Volume 07/12/2013 [facility] - 07/27/19 14 11:16 AM CDT PATIENT IMAGES Choose the Image button to view related documents. Historical Provider LAB SURG PATH ORDERABLES Performing Organization Address [facility]/ZIP Code Phon e Number [facility] Pathology Surgical Pathology (07/12/2013 12:00 AM CDT) Specimen (Source) Anatomical Location Collection Method / Collectio n Time Received Time / Laterality Volume 07/12/2013 [facility] - 07/21/19 14 12:51 PM CDT PATIENT IMAGES Choose the Image button to view related documents. Historical Provider LAB SURG PATH ORDERABLES Performing Organization Address City/[facility]/ZIP Code Phon e Number [facility] documented in this encounter Visit Diagnoses Not on filedocumented in this encounter Additional Health Concerns Assessment Noted Time PHQ-9 Depression Total Score: 12 12/10/2012 8:45 AM CD T documented as of this encounter
--- OUTSIDE RECORDS SUMMARY | 2022-03-29 07:57 | XMS_ITS | Encounter Summary ---
:1950 Author Organization [facility] Address [address] [place] [address] Care Team Providers Name Role Phone Unavailable Primary Care Provider Unavailable Encounter Details Date Type Department Care Team Description 03/04/2014 Hospital Encounter HX [facility] Riley Jimenez M.D. [address] [facility], [facility] [address] [phone] Social History Tobacco Use Types Packs/Day [...] How often do you attend evangelical or zoroastrianism services? 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 - 03/04/2014 2:34 PM CDT [id number] CHIEF COMPLAINT/ REASON FOR VISIT Followup. HISTORY OF PRESENT ILLNESS Mik is a 64-year-old male who presents to the clinic today for a one week followup from 02/24/2014. He is feeling much better today. He is quitting smoking by 03/12/2014. He still has some coughing and congestion, but it is much improved. He is sleeping better. He is currently taking Furosemide. He denies any feet swelling. He has lost 3 pounds in the last week. His blood pressure is good today. He should continue low sodium diet. He should continue current medication. He was given high dose influenza immunization today. There are no further concerns at this time. MEDICATIONS Reviewed and updated as per the EMR. ALLERGIES Reviewed and updated as per the EMR. SYSTEMS REVIEW As per the history of present illness. All other systems are reviewed and are negative. PAST MEDICAL/ SURGICAL HISTORY Reviewed and updated as per the EMR. PREVENTIVE SERVICES Reviewed and updated as per the EMR. SOCIAL HISTORY Reviewed and updated as per the EMR. FAMILY HISTORY Reviewed and updated as per the EMR. VITAL SIGNS HEIGHT: 172 cm. WEIGHT: 100.6 kg. BMI: 34 kg/m2. TEMP: 37.4 Deg C. PULSE: 68 /min. RESP: 16 /min. SYSTOLIC: 112 mmHg. DIASTOLIC: 70 mmHg. PHYSICAL EXAMINATION GENERAL: Patient is sitting. No distress. Able to talk without interruption. HEART: No carotid bruit. No JVD. There is no S3, gallop, murmur or thrill. He has slight irregular heart rhythm. LUNGS: Normal respiratory effort. Clear to auscultation. Normal percussion. EXTREMITIES: No clubbing, cyanosis, edema, infection or calf tenderness. IMPRESSION/ REPORT/ PLAN 1. Chronic bronchitis with acute exacerbation. It is much better. Patient is stable from respiratorystandpoint. There was no hypoxemia or tachypnea. He was advised him to drink plenty of fluids. He should continue medication. 2. Hypertension. Blood pressure is controlled. He is stable from a cardiac standpoint. Advised to continue sodium controlled diet and current medication. I advised him to quit smoking. He plans to quiton 03/12/2014. Blood pressure goal is less than 140/90 mmHg. Need to continue cardiovascular risk factors modification. 3. Influenza vaccination. He was given high dose influenza immunization today. Todays studies: BMP. He will be notified with results. The patient will return to the clinic on 07/18/2014 as previously scheduled. This document serves as a record of services personally performed by Dr. Riley Sanchez. It was created on their behalf by Juan Ramos, a trained medical cost consultant. The creation of this record is based on the scribe's personal observations and the provider's statements to them. This document has been checked and approved by the attending provider. Riley Sanchez M.D./arti Electronically Signed By: RILEY SANCHEZ MD On: 03/06/2014 10:42 AM Modified by and Electronically Signed by: RILEY SANCHEZ MD On: 03/06/2014 10:42 AM Source: [facility] MHSDOLBEYNONRADSYS Document Id: [id number] ONATOR documented in this encounter Miscellaneous Notes Miscellaneous - Riley Sanchez M.D. - 03/07/2014 11:23 AM CST Work Excuse 07 March 2014 [address] [address] [address] [id number] Dear SEVEN SALAZAR, You were examined in my office on: 03/04/2014 Reason for work excuse: Medical Illness ( [...] Work date: _ Notes: Work excuse on 03/05/2014. Sincerely, RILEY SANCHEZ [address] [place] [address] Electronic Signature Electronically Signed By: RILEY SANCHEZ MD On: 07 March 2014 This document has images extracted. Source: [facility] POWERCHART Document Id: [id number] Miscellaneous - Riley Sanchez M.D. - 03/07/2014 8:43 AM CST Results Notification Document Contains Addenda Addendum by CHUCKY DUNCAN LPN on 07 March 2014 13:35 CARBONATOR Work excuse faxed to [employer]. Addendum by RILEY SANCHEZ MD on 07 March 2014 11:24:19 CARBONATOR From: RILEY SNACHEZ MD To: JOSE Sanchez Nurse; Sent: 03/07/2014 11:24:19 CARBONATOR Show up: 03/07/2014 11:24:00 CARBONATOR Subject: RE: Results Notification Addendum by RILEY SANCHEZ MD on 07 March 2014 11:24:05 CARBONATOR From: RILEY SANCHEZ MD To: RILEY SANCHEZ MD; Sent: 03/07/2014 11:24:05 CARBONATOR Show up: 03/07/2014 11:23:00 CARBONATOR Subject: RE: Results Notification Actions: Notify Patient of Future order OK. Please fax the note. Addendum by CHUCKY DUNCAN LPN on 07 March 2014 10:33:46 CARBONATOR Patient informed of results. Patient states that at his visit on Friday he recieved a flu shot. That evening into the next day he had diarrhea and some abdominal cramping. All symptoms have resolved but he did miss work on Friday. He needs a note for his employer. Fax to [employer], Addendum by CHUCKY DUNCAN LPN on 07 March 2014 10:25:42 CARBONATOR Left messagefor patient to return my call. Addendum by CHUCKY DUNCAN LPN on 07 March 2014 09:44:20 CARBONATOR Left message for patient to return my call. From: RILEY SANCHEZ MD Sent: 03/07/2014 08:43:28 CARBONATOR ! Show up: 03/07/2014 08:43:28 CARBONATOR Subject: Results Notification Actions: Notify patient of results Reminder Comments: Please call. GAVIN BORDEN. Results: Date Result Name Ind Value Ref Range 03/04/2014 15:54 Sodium Lvl 138 mmol/L (135 - 145) 03/04/2014 15:54 Potassium Lvl 4.5 mmol/L (3.5 - 4.8) 03/04/2014 15:54 Chloride (L) 95 mmol/L (100 - 108) 03/04/2014 15:54 CO2 (H) 31 mmol/L (22 - 30) 03/04/2014 15:54 Glucose Lvl 131 03/04/2014 15:54 Creatinine 1.0 mg/dL (0.9 - 1.4) 03/04/2014 15:54 EGFR (MDRD) >60 mL/min 03/04/2014 15:54 EGFR (MDRD) >60 mL/min 03/04/2014 15:54 BUN (H) 32 mg/dL (7 - 23) 03/04/2014 15:54 Calcium Lvl 9.8 mg/dL (8.5 - 10.5) Source: [facility] POWERCHART Document Id: [id number] ONATOR Miscellaneous - Riley Sanchez M.D. - 03/04/2014 3:39 PM CDT Ambulatory Patient Summary [address] [id number] Visit Information Name: SEVEN SALAZAR [facility] Number: [id number] Current Date: 03/04/2014 15:39:38 Physicians Attending Provider: RILEY SANCHEZ MD Primary [...] Tablet(s), Oral, once as needed for Headache *calcium-vitamin D (Caltrate 600 with D 600 mg-400 intl units oral tablet) 1 Tablet(s), Oral, two times a day with food with plenty of water furosemide (furosemide 20 mg oral tablet) 1 Tablet(s), Oral, once a day (in the morning) lisinopril-hydrochlorothiazide (lisinopril-hydrochlorothiazide 20 mg-12.5 mg oral tablet) See Instructions 2 tab(s) PO Daily in AM. / (Zestoretic) predniSONE (predniSONE 20 mg oral tablet) See Instructions 3 tab(s) PO Daily 5 day, 2 tab(s) PO Daily 5 day(s), 1 tab(s) PO Daily 5 days. with food * You have let us know that you are not taking this medication as listed. Please talk with your primary care provider or the health care provider who prescribed the medication as soon as possible. Stop Taking the Following Medications: Medication list as of 03-04-14 15:39 Attention: If you have any medications at [...] Electronically Signed By: RILEY SANCHEZ MD Signed On:04-MAR-2014 15:39:16 Your Allergies & Intolerances Substance Reaction Symptoms [...] Your Upcoming Appointments Date Time Location Provider 03/07/2014 13:30 [facility] Jatinder Camejo MD 07/18/2014 09:50 [facility] Laura DEWEY, Riley Attention: Contact your [...] help loosen secretions in the lungs. ?? Rnip-mel-gpokmef cough medicines that contain dextromethorphan (such as [...] leg swelling, tenderness, redness or pain ?? [id number] [facility] [place], [address] [place] [address], [place] [address]. All rights reserved. This information is not intended as a substitute for professional medical care. Always follow your healthcare professional's instructions. Your Goals/Additional instructions: This document has images extracted. Please consider using [employer] for all your patient education needs. Source: [facility] POWERCHART Document Id: [id number] Miscellaneous - Riley Sanchez M.D. - 03/04/2014 3:39 PM CDT Ambulatory Discharge Medication List [address] [id number] Visit Information Name: SEVEN SALAZAR [facility] Number: [id number] Visit Date: 03/04/2014 15:39:36 Attending Provider: RILEY SANCHEZ MD Primary Care [...] Tablet(s), Oral, once as needed for Headache *calcium-vitamin D (Caltrate 600 with D 600 mg-400 intl units oral tablet) 1 Tablet(s), Oral, two times a day with food with plenty of water furosemide (furosemide 20 mg oral tablet) 1 Tablet(s), Oral, once a day (in the morning) lisinopril-hydrochlorothiazide (lisinopril-hydrochlorothiazide 20 mg-12.5 mg oral tablet) See Instructions 2 tab(s) PO Daily in AM. / (Zestoretic) predniSONE (predniSONE 20 mg oral tablet) See Instructions 3 tab(s) PO Daily 5 day, 2 tab(s) PO Daily 5 day(s), 1 tab(s) PO Daily 5 days. with food * You have let us know that you are not taking this medication as listed. Please talk with your primary care provider or the health care provider who prescribed the medication as soon as possible. Stop Taking the Following Medications: Medication list as of 03-04-14 15:39 Attention: If you have any medications at [...] Electronically Signed By: RILEY SANCHEZ MD Signed On:04-MAR-2014 15:39:16 Additional Information: Source: [facility] POWERCHART Document Id: [id number] Miscellaneous - Arpita Boss [id number] - 03/04/2014 3:06 PM CDT Adult Ring Sorter Intake/History Document Has Been Updated Adult Ring Sorter Intake/History Entered On: 03/04/2014 15:09 CDT Performed On: 03/04/2014 15:06 CDT by ARPITA BOSS Intake Chief Complaint : one week follow up from 02/24/14, chronic bronchitis Temperature Core : 37.4 DegC(Converted to: 99.3 DegF) Peripheral Pulse Rate : 68 /min Respiratory Rate : 16 /min Heart Rhythm : Regular Systolic Blood Pressure : 112 mmHg Diastolic Blood Pressure : 70 mmHg NIBP Mean : 84 mmHg BP Location : Left upper extremity Blood Pressure Cuff Size : Regular Height : 172 cm(Converted to: 5 ft 8 inch(es), 68 inch(es)) Actual Weight : 100.6 kg(Converted to: 221 lb 13 oz) Weight Source : Standing scale Dosing Weight Clinic : 100.6 kg Clinic BSA : 2.19 Body Mass Index : 34 kg/m2 ARPITA BOSS - 03/04/2014 15:06 CDT General Info Information Given By : Patient Languages : Belgian Is Patient Female and 13-50 no hysterectomy : No ARPITA BOSS - 03/04/2014 15:06 CDT Subjective Pain Symptoms : No ARPITA BOSS - 03/04/2014 15:06 CDT Dependent Habits Tobacco Use/Currently Using : Yes Tobacco Use/Advised to Quit : Yes Exposure to Tobacco Smoke : Patient smokes Smoking Status : Current every day smoker ARPITA BOSS - 03/04/2014 15:06 CDT Tobacco Use Grid Type : Cigarettes Cigarette Use Packs/Day : 0.5 Last Use : today ARPITA BOSS - 03/04/2014 15:06 CDT Caffeine Use Grid Caffeine Use : Current Type : Coffee, Tea Frequency : Daily Amount : 2 cup coffee/2 tea daily ARPITA BOSS - 03/04/2014 15:06 CDT Recreational Drug Use Grid Drug Use : None ARPITA BOSS - 03/04/2014 15:06 CDT Allergy (As Of: 03/04/2014 15:09:54 CDT) Allergies (Active) NKA Estimated Onset Date: Unspecified ; Created By: SARAI NIXON; Reaction Status: Active ; Category:Drug ; Substance: NKA ; Type: Allergy ; Updated By: SARAI NIXON; Reviewed Date: 03/04/2014 15:04 CDT ID Screen Drug Resistant Organism : No Travel Within Last 21 Days : No ARPITA BOSS - 03/04/2014 15:06 CDT [facility] Document Id: [id number] documented in this encounter Plan of Treatment Upcoming Encounters Date Type Specialty Care Team Description 04/12/2022 Office Visit Cardiovascular Disease Simone Gooden AP RN, C.N.P. [address] [address] [phone] (Wo rk) documented as of this encounter Procedures Procedure Name Priority Date/Time Associated Diagnosis Comme nts BASIC METABOLIC Routine 03/04/2014 3:54 PM Result s for this PANEL, S/P CDT procedure are i n the results section. documented in this encounter Results (ABNORMAL) BMP (Basic Metabolic Panel) (03/04/2014 3:54 PM CDT) P athologist Signature BUN (Blood Urea 32 (H) 7 - 23 POWERCHART Nitrogen), S MGDL Creatinine 1.0 0.9 - 1.4 POWERCHART MGDL Glucose 131 POWERCHART Potassium, S 4.5 3.5 - 4.8 POWERCHART MMOLL Sodium, S 138 135 - 145 POWERCHART MMOLL Chloride, S 95 (L) 100 - 108 POWERCHART MMOLL CO2 Total 31 (H) 22 - 30 POWERCHART MMOLL Calcium, Total, 9.8 8.5 - 10.5 POWERCHART S MGDL HXeGFR (MDRD) >60 MLMIN POWERCHART eGFR >60 MLMIN POWERCHART Black/ Specimen (Source) Anatomical Collection Method Collection Time Re ceived Time Location / / Volume Laterality Blood 03/04/2014 3:54 PM CDT Riley Sanchez M.D. LAB BLOOD ADD-ON Performing Organization Address City/State/ZIP Code Phon e Number POWERCHART documented in this encounter Visit Diagnoses Not on filedocumented in this encounter Additional Health Concerns Assessment Noted Time PHQ-9 Depression Total Score: 3 01/17/2014 1:01 PM CDT documented as of this encounter
--- OUTSIDE RECORDS SUMMARY | 2022-03-29 07:57 | XMS_ITS | Encounter Summary ---
:1950 Author Organization [facility] Address [address] [place] [address] Care Team Providers Name Role Phone Unavailable Primary Care Provider Unavailable Encounter Details Date Type Department Care Team Description 02/17/2014 Hospital Encounter HX [facility] Riley Jimenez M.D. [address] [facility], [facility] [address] [phone] Social History Tobacco Use Types Packs/Day [...] How often do you attend muslim or holiness services? 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 - 02/17/2014 4:45 PM CDT [id number] CHIEF COMPLAINT/ REASON FOR VISIT Followup. HISTORY OF PRESENT ILLNESS Seven is a 63-year-old male who presents to the clinic today for a followup from 01/17/2014. He hadWelcome to Medicare examination. At that time he was treated with Prednisone for bronchospasm. He felt better while he was taking Prednisone. He continues to smoke tobacco. He quit smoking on Friday. He has had coughing and congestion since December 2013. Prednisone therapy helped in the past, but symptoms have gotten worse recently. There is no fever or chills. When he coughs, he brings up chanel phlegm. He denies any chest pain, but some shortness of breath and chest congestion. He has occasional headaches. He has a runny nose, but no nausea, vomiting, or sore throat. His appetite is OK. He doesn'tthink he can go to work. He needs work excuse. I filled out work release form for today and tomorrow. I reviewed and updated his medication list. [...] EMR. VITAL SIGNS HEIGHT: 172 cm. WEIGHT: 99 kg. BMI: 33.46 kg/m2. TEMP: 36.7 Deg C. PULSE: 101 /min. RESP: 20 /min. O2SAT: 96 %. SYSTOLIC: 150 mmHg. DIASTOLIC: 83 mmHg. SR: 150 mmHg/77 mmHg. TR: 142/78 mmHg. PHYSICAL EXAMINATION GENERAL: Patient is sitting. [...] murmur or thrill. LUNGS: Normal respiratory effort. There is bilateral bronchi, wheezing, and congestion. ABDOMEN: Moves with respiration. Bowel sounds present. Soft. No rebound tenderness, guarding or rigidity. No organomegaly. EXTREMITIES: No clubbing, cyanosis, edema, infection or calf tenderness. IMPRESSION/ REPORT/ PLAN 1. Cough with dyspnea. He has chronic bronchitis exacerbation and bronchospasm. Patient is stable from respiratory standpoint. There was no hypoxemia or tachypnea. Advised him to drink plenty of fluids. He will take Prednisone 20 mg as directed and Levaquin 500 mg by mouth daily for 7 days. New prescriptions were given. 2. Tobacco abuse. Recommended smoking cessation. He stopped smoking this past Friday. Todays studies: BNP, BMP, CBC, and chest x-ray. He will be notified with results. The patient will return to the clinic next week for followup. Administrative Billing 25 minutes spent with greater than 50% counseling and coordination of care. This document [...] Electronically Signed By: RILEY SANCHEZ MD On: 02/18/2014 01:06 PM Modified by and Electronically Signed by: RILEY SANCHEZ MD On: 02/18/2014 01:06 PM Source: [facility] [email or web address] Document Id: [id number] documented in this encounter Miscellaneous Notes Miscellaneous - Riley Sanchez M.D. - 02/20/2014 8:22 PM CDT Results Notification Document Contains Addenda Addendum by JUANY DUNCAN LPN on 21 February 2014 11:13:24 CDT Patient informed of results. Addendum by JUANY DUNCAN LPN on 21 February 2014 10:18:49 CDT Left message for patient to return my call. From: RILEY SANCHEZ MD Sent: 02/20/2014 20:22:53 CDT ! Show up: 02/20/2014 20:22:53 CDT Subject: Results Notification Actions: Notify patient of results Reminder Comments: Please call. BMP is OK. Results: Date Result Name Ind Value Ref Range 02/17/2014 17:27 Sodium Lvl 141 mmol/L (135 - 145) 02/17/2014 17:27 Potassium Lvl 4.4 mmol/L (3.5 - 4.8) 02/17/2014 17:27 Chloride (L) 99 mmol/L (100 - 108) 02/17/2014 17:27 CO2 30 mmol/L (22 - 30) 02/17/2014 17:27 Glucose Lvl 102 02/17/2014 17:27 Creatinine 1.0 mg/dL (0.9 - 1.4) 02/17/2014 17:27 EGFR (MDRD) >60 mL/min 02/17/2014 17:27 EGFR (MDRD) >60 mL/min 02/17/2014 17:27 BUN (H) 24 mg/dL (7 - 23) 02/17/2014 17:27 Calcium Lvl 10.2 mg/dL (8.5 - 10.5) Source: [facility] POWERCHART Document Id: [id number] Electronically signed by Conversion, [facility] Return Checker [id number] at 09/30/2016 11:27 PM CDT Miscellaneous - Riley Sanchez M.D. - 02/20/2014 8:22 PM CDT Normal Results Letter 20 February 2014 SEVEN SALAZAR [address] [facility] [address] [place] [phone] Dear SEVEN SALAZAR, I am pleased to report that your results from the following diagnostic test(s) are normal. Please follow up with us as we discussed during your visit or sooner if you have any concerns. If you have questions or concerns, please do not hesitate to call our office. Result Name Current Result Normal Range Sodium Lvl (mmol/L) 141 02/17/2014 135 - 145 Potassium Lvl (mmol/L) 4.4 02/17/2014 3.5 - 4.8 Chloride (mmol/L) (L) 99 02/17/2014 100 - 108 CO2 (mmol/L) 30 02/17/2014 22 - 30 Glucose Lvl 102 02/17/2014 Creatinine (mg/dL) 1.0 02/17/2014 0.9 - 1.4 EGFR (MDRD) (mL/min) >60 02/17/2014 BUN (mg/dL) (H) 24 02/17/2014 7 - 23 Calcium Lvl (mg/dL) 10.2 02/17/2014 8.5 - 10.5 Sincerely, RILEY SANCHEZ [address] [place] [address] Electronic Signature Electronically Signed By: RILEY SANCHEZ MD On: 20 February 2014 This document has images extracted. Source: [facility] POWERCHART Document Id: [id number] Electronically signed by Conversion, [facility] Return Checker [id number] at 09/30/2016 11:27 PM CDT Telephone Encounter - Conversion, Historical Provider Ser - 02/18/2014 9:56 AM CDT *Phone Message/dr sanchez Document Contains Addenda Addendum by JUANY DUNCAN LPN on 18 February 2014 10:01:02 CDT Called and spoke with patient. Please refer to previous messages. From: KIRA HARDY ( [employer] Developer) To: JOSE Sanchez Nurse; Sent: 02/18/2014 09:56:56 CDT Subject: *Phone Message/dr sanchez Caller is: (x ) Patient ( ) Mother ( ) Father ( ) Spouse ( ) Daughter ( ) Son ( ) Pharmacy ( ) Other: Physician: Patient MRN #: Reason for Call: S patient returning your call B A R please call [phone] Message: Advice/Action: Source used: ( ) Verbalizes [...] back cell phone number ( ) Source: [facility] POWER48domain Document Id: [id number] Miscellaneous - Riley Sanchez M.D. - 02/18/2014 8:47 AM CDT Results Notification Document Contains Addenda Addendum by JUANY DUNCAN LPN on 18 February 2014 10:00:44 CDT Patient notified of results. Addendum by JUANY DUNCAN LPN on 18 February 2014 09:11:56 CDT Left message for patient to return my call. From: RILEY SANCHEZ MD Sent: 02/18/2014 08:47:33 CDT ! Show up: 02/18/2014 08:47:33 CDT Subject: Results Notification Actions: Notify patient of results Reminder Comments: Please call. CBC & BNP OK. No CHF. Results: Date Result Name Ind Value Ref Range 02/17/2014 17:27 BNP 9 pg/mL (0 - 100) 02/17/2014 17:27 Hgb 16.2 g/dL (13.5 - 17.5) 02/17/2014 17:27 Hct 47.7 % (38.8 - 50.0) 02/17/2014 17:27 WBC 9.1 x10(9)/L (3.5 - 10.5) 02/17/2014 17:27 RBC 5.57 x10(12)/L (4.32 - 5.72) 02/17/2014 17:27 MCV 85.6 fL (81.0 - 95.0) 02/17/2014 17:27 RDW 14.7 % (11.8 - 15.6) 02/17/2014 17:27 Platelet 358 x10(9)/L (150 - 450) 02/17/2014 17:27 Neutro Absolute 4.74 10(9)/L (1.70 - 7.00) 02/17/2014 17:27 Lymph Absolute 2.55 x10(9)/L (0.90 - 2.90) 02/17/2014 17:27 Cabell Absolute (H) 1.23 x10(9)/L (0.30 - 0.90) 02/17/2014 17:27 Eos Absolute (H) 0.51 x10(9)/L (0.05 - 0.50) 02/17/2014 17:27 Baso Absolute 0.05 x10(9)/L (0.00 - 0.30) 02/17/2014 17:27 Differential? Auto Source: [employer] Document Id: [id number] Miscellaneous - Riley Sanchez M.D. - 02/18/2014 8:46 AM CDT Results Notification Document Contains Addenda Addendum by JUANY DUNCAN LPN on 18 February 2014 10:00:32 CDT Patient notified of results. Addendum by JUANY DUNCAN LPN on 18 February 2014 09:11:38 CDT Left message for patient to return my call. From: RILEY SANCHEZ MD Sent: 02/18/2014 08:46:54 CDT ! Show up: 02/18/2014 08:46:54 CDT Subject: Results Notification Actions: Notify patient of results Reminder Comments: Please call. CXR showed no pneumonia. He has Chronic bronchitis exacerbation. Results: Date Result Type Result Name 02/17/2014 17:41 Radiology XR Chest 2 Views Source: [employer] Document Id: [id number] Miscellaneous - Riley Sanchez M.D. - 02/17/2014 5:22 PM CDT Ambulatory Patient Summary [address] [facility] [place], [place] [phone] Visit Information Name: CHRIS SEVEN AVINA [facility] Number: [id number] Current Date: 02/17/2014 17:22:58 Physicians Attending Provider: RILEY SANCHEZ MD Primary [...] day with food with plenty of water levofloxacin (Levaquin 500 mg oral tablet) 1 Tablet(s), Oral, once a day x 7 day(s) New Routed to [facility] [place] [address] lisinopril-hydrochlorothiazide (lisinopril-hydrochlorothiazide 20 mg-12.5 mg oral tablet) See Instructions 2 tab(s) PO Daily in AM. / (Zestoretic) predniSONE (predniSONE 20 mg oral tablet) See Instructions 3 tab(s) PO Daily 5 day, 2 tab(s) PO Daily 5 day(s), 1 tab(s) PO Daily 5 days. with food New Routed to [facility] [place] [address] Stop Taking the Following Medications: Medication list as of 02-17-14 17:22 Attention: If you have any medications at [...] Electronically Signed By: RILEY SANCHEZ MD Signed On:17-FEB-2014 17:22:40 Your Allergies & Intolerances Substance Reaction Symptoms [...] Jatinder Camejo MD 07/18/2014 09:50 [facility] Riley Sanchez MD Attention: Contact your local Clinic if further appointment detail needed. Your Goals/Additional instructions: Source: [facility] POWERCHART Document Id: [id number] Miscellaneous - Riley Sanchez M.D. - 02/17/2014 5:22 PM CDT Ambulatory Discharge Medication List [address] [id number] Visit Information Name: SEVEN SALAZAR [facility] Number: [id number] Visit Date: 02/17/2014 17:22:55 Attending Provider: RILEY SANCHEZ MD Primary Care [...] day with food with plenty of water levofloxacin (Levaquin 500 mg oral tablet) 1 Tablet(s), Oral, once a day x 7 day(s) New Routed to [facility] [place] [address] lisinopril-hydrochlorothiazide (lisinopril-hydrochlorothiazide 20 mg-12.5 mg oral tablet) See Instructions 2 tab(s) PO Daily in AM. / (Zestoretic) predniSONE (predniSONE 20 mg oral tablet) See Instructions 3 tab(s) PO Daily 5 day, 2 tab(s) PO Daily 5 day(s), 1 tab(s) PO Daily 5 days. with food New Routed to [facility] [place] [address] Stop Taking the Following Medications: Medication list as of 02-17-14 17:22 Attention: If you have any medications at [...] Electronically Signed By: RILEY SANCHEZ MD Signed On:17-FEB-2014 17:22:40 Additional Information: Source: [facility] POWERCHART Document Id: [id number] Miscellaneous - Riley Sanchez M.D. - 02/17/2014 5:22 PM CDT Work Excuse 17 February 2014 SEVEN SALAZAR [address] [facility] [address] [place] [id number] Dear SEVEN SALAZAR, You were examined in my office on: 02/17/2014 Reason for work excuse: Medical Illness ( X ) Yes ( _ ) No Injury ( _ ) Yes ( X ) No Is excused from all work: ( X ) Yes ( _ ) No Has work limitations: ( _ ) Yes ( _ ) No As follows: _ Limitations apply until: _ Follow-Up Appointment : In one week. Return to Work date: Wednesday, February 19, 2014 Notes: _ Sincerely, RILEY SANCHEZ [address] [place] [address] Electronic Signature Electronically Signed By: RILEY SANCHEZ MD On: 17 February 2014 This document has images extracted. Source: [facility] Document Id: [id number] Miscellaneous - Riley Sanchez M.D. - 02/17/2014 5:15 PM CDT Ambulatory Vitals Height Weight Ambulatory Vitals Height Weight Entered On: 02/17/2014 17:15 CDT Performed On: 02/17/2014 17:15 CDT by RILEY SANCHEZ MD Vitals/Ht/Wt Systolic Blood Pressure : 142 mmHg (HI) Diastolic Blood Pressure : 78 mmHg NIBP Mean : 99 mmHg BP Location : Right upper extremity Blood Pressure Cuff Size : Large Height : 172 cm(Converted to: 5 ft 8 inch(es), 68 inch(es)) RILEY SANCHEZ MD - 02/17/2014 17:15 CDT Source: [facility] Document Id: [id number] CDT!8 Miscellaneous - Juany Duncan L.P.NBhavesh - 02/17/2014 4:52 PM CDT Ambulatory Vitals Height Weight Ambulatory Vitals Height Weight Entered On: 02/17/2014 16:52 CDT Performed On: 02/17/2014 16:52 CDT by JUANY DUNCAN LPN Vitals/Ht/Wt Systolic Blood Pressure : 150 mmHg (HI) Diastolic Blood Pressure : 77 mmHg NIBP Mean : 101 mmHg BP Location : Right upper extremity Blood Pressure Cuff Size : Large Height : 172 cm(Converted to: 5 ft 8 inch(es), 68 inch(es)) JUANY DUNCAN LPN - 02/17/2014 16:52 CDT Source: [facility] POWERCHART Document Id: [id number] CDT!8 Miscellaneous - Juany Duncan L.P.N. - 02/17/2014 4:48 PM CDT Adult Minister Of Religion Intake/History Adult Minister Of Religion Intake/History Entered On: 02/17/2014 16:51 CDT Performed On: 02/17/2014 16:48 CDT by JUANY DUNCNA LPN Intake Chief Complaint : re-check chronic bronchitis Temperature Core : 36.7 DegC(Converted to: 98.1 DegF) Apical Heart Rate : 101 /min (HI) Respiratory Rate : 20 /min Systolic Blood Pressure : 150 mmHg (HI) Diastolic Blood Pressure : 83 mmHg NIBP Mean : 105 mmHg SpO2 : 96 % Oxygen Therapy : Room air Height : 172 cm(Converted to: 5 ft 8 inch(es), 68 inch(es)) Actual Weight : 99 kg(Converted to: 218 lb 4 oz) Weight Source : Standing scale Dosing Weight Clinic : 99 kg Clinic BSA : 2.17 Body Mass Index : 33.46 kg/m2 JUANY DUNCAN LPN - 02/17/2014 16:48 CDT General Info Information Given By : Patient Preferred Communication Mode : Verbal, Written Languages : Nepali Is Patient Female and 13-50 no hysterectomy : No JUANY DUNCAN LPN - 02/17/2014 16:48 CDT Subjective Pain Symptoms : No JUANY DUNCAN LPN - 02/17/2014 16:48 CDT Dependent Habits Tobacco Use/Currently Using : Yes Exposure to Tobacco Smoke : Patient smokes Smoking Status : Current every day smoker JUANY DUNCAN LPN - 02/17/2014 16:48 CDT Tobacco Use Grid Type : Cigarettes Cigarette Use Packs/Day : 0.5 Last Use : today JUANY DUNCAN LPN - 02/17/2014 16:48 CDT Caffeine Use Grid Caffeine Use : Current Type : Coffee, Tea Frequency : Daily Amount : 2 cup coffee/2 tea daily JUANY DUNCAN LPN - 02/17/2014 16:48 CDT Recreational Drug Use Grid Drug Use : None JUANY DUNCAN SHEMAR - 02/17/2014 16:48 CDT Source: [facility] POWERCHART Document Id: [id number] CDT!42 documented in this encounter Plan of Treatment Upcoming Encounters Date Type Specialty Care Team Description 04/12/2022 Office Visit Cardiovascular Disease Simone Gooden AP RN, C.N.P. [address], [place] [phone] (Wo rk) documented as of this encounter Procedures Procedure Name Priority Date/Time Associated Comments Diagnosis AUTOMATED Routine 02/17/2014 5:27 PM Results f or this DIFFERENTIAL, B CDT procedure ar e in the results section. NT-PRO B-TYPE Routine 02/17/2014 5:27 PM Results for this NATRIURETIC PEPTIDE CDT procedur e are in (BNP), S the results section. CBC WITH Routine 02/17/2014 5:27 PM Results f or this DIFFERENTIAL, B CDT procedure ar e in the results section. BASIC METABOLIC Routine 02/17/2014 5:27 PM Result s for this PANEL, S/P CDT procedure are i n the results section. DX CHEST AP OR PA AND Routine 02/17/2014 5:06 PM Results for this LATERAL 2 VIEWS CDT procedure ar e in the results section. documented in this encounter Results (ABNORMAL) Automated Differential (02/17/2014 5:27 PM CDT) [facility] gist Method Time Signature Absolute 4.74 1.70 - POWERCHART Neutrophils 7.00 109L Lymphocytes 2.55 0.90 - POWERCHART 2.90 X109L Monocytes 1.23 (H) 0.30 - POWERCHART 0.90 X109L Eosinophils 0.51 (H) 0.05 - POWERCHART 0.50 X109L Absolute 0.05 0.00 - POWERCHART Basophil 0.30 X109L Specimen Anatomical Collection Method Collection Time Receive d Time (Source) Location / / Volume Laterality Blood 02/17/2014 5:27 PM 4 5:27 CDT PM CDT Riley Padilla.D. LAB BLOOD ADD-ON Performing Organization Address City/State/ZIP Code Phon e Number POWERCHART CBC with Differential (02/17/2014 5:27 PM CDT) P athologist Signature Leukocytes 9.1 3.5 - 10.5 POWERCHART X109L Erythrocytes 5.57 4.32 - POWERCHART 5.72 F2042H Hemoglobin 16.2 13.5 - POWERCHART 17.5 GDL Hematocrit 47.7 38.8 - POWERCHART 50.0 MCV 85.6 81.0 - POWERCHART 95.0 [place] Platelet Count 358 150 - 450 POWERCHART X109L HX RDW 14.7 11.8 - POWERCHART 15.6 HXDifferential? Auto POWERCHART Specimen (Source) Anatomical Collection Method Collection Time Re ceived Time Location / / Volume Laterality Blood 02/17/2014 5:27 PM CDT Riley Sanchez M.D. LAB BLOOD ADD-ON Performing Organization Address City/[facility]/ZIP Code Phon e Number POWERCHART (ABNORMAL) BMP (Basic Metabolic Panel) (02/17/2014 5:27 PM CDT) P athologist Signature BUN (Blood Urea 24 (H) 7 - 23 POWERCHART Nitrogen), S MGDL Creatinine 1.0 0.9 - 1.4 POWERCHART MGDL Glucose 102 POWERCHART Potassium, S 4.4 3.5 - 4.8 POWERCHART MMOLL Sodium, S 141 135 - 145 POWERCHART MMOLL Chloride, S 99 (L) 100 - 108 POWERCHART MMOLL CO2 Total 30 22 - 30 POWERCHART MMOLL Calcium, Total, 10.2 8.5 - 10.5 POWERCHART S MGDL HXeGFR (MDRD) >60 MLMIN POWERCHART eGFR >60 MLMIN POWERCHART Black/ Specimen (Source) Anatomical Collection Method Collection Time Re ceived Time Location / / Volume Laterality Blood 02/17/2014 5:27 PM CDT Riley Padilla.D. LAB BLOOD ADD-ON Performing Organization Address City/[facility]/ZIP Code Phon e Number POWERCHART NT-Pro B-Type Natriuretic Peptide (BNP) (02/17/2014 5:27 PM CDT) P athologist Signature B-Type 9 0 - 100 POWERCHART Natriuretic PGML Peptide (BNP) Specimen (Source) Anatomical Collection Method Collection Time Re ceived Time Location / / Volume Laterality Blood 02/17/2014 5:27 PM CDT Riley Sanchez M.D. LAB BLOOD ADD-ON Performing Organization Address City/State/ZIP Code Phon e Number POWERCHART DX Chest AP or PA and Lateral 2 Views (02/17/2014 5:06 PM CDT) Anatomical Region Laterality Modality Chest N/A Radiographic Imaging Specimen (Source) Anatomical Collection Method Collection Time Re ceived Time Location / / Volume Laterality 02/17/2014 5:06 PM CDT Addenda Addendum by Provider, Javid Samson 02/17/2014 5:06 PM CDT RAD^^^OW XR Chest 2 Views 02/17/2014 17:06:43 Impressions 02/17/2014 5:38 PM CDT No active disease. Narrative 02/17/2014 5:38 PM CDT EXAM: XR Chest 2 Views INDICATION: Cough, dyspnea, tobacco use. COMPARISON: 12/10/2012. FINDINGS: ??There has been no significan t interval change. ??Lung samuel are clear. ??Heart and mediastina l structures are normal other than chronic mild thoracic aortic tortuo sity. ??Bony thorax and soft tissues appear currently intact (newly i dentified right shoulder arthroplasty, chronic diffuse spinal and left shoulder degenerative changes). ??There is no vascular congest ion. Procedure Note Georges Coleman M.D. / Provider, Frances gomez M.D. - 09/14/2016 EXAM: XR Chest 2 Views INDICATION: Cough, dyspnea, tobacco use. COMPARISON: 12/10/2012. FINDINGS: There has been no significant interval change. Lung samuel are clear. Heart and mediastinal structures are normal other than chronic mild thoracic aortic tortuo sity. Bony thorax and soft tissues appear currently intact (newly i dentified right shoulder arthroplasty, chronic diffuse spinal and left shoulder degenerative changes). There is no vascular congestio n. IMPRESSION: No active disease. Yaneth Nichole RBhaveshTBhavesh(R), R.T.(R)(M) IMG DIAGNOSTIC IMAG ING PROCEDURES documented in this encounter Visit Diagnoses Not on filedocumented in this encounter Additional Health Concerns Assessment Noted Time PHQ-9 Depression Total Score: 3 01/17/2014 1:01 PM CDT documented as of this encounter
--- OUTSIDE RECORDS SUMMARY | 2022-03-29 07:57 | XMS_ITS | Encounter Summary ---
:[address] [facility] Address [address] [place] [address] Care Team Providers Name Role Phone Unavailable Primary Care Provider Unavailable Encounter Details Date Type Department Care Team Description 02/24/2014 Hospital Encounter HX [facility] Riley Jimenez M.D. [address] [facility], [facility] [address] [place] [phone] Social History Tobacco Use Types Packs/Day [...] How often do you attend orthodoxy or religion services? 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 - 02/24/2014 4:13 PM CDT [id number] CHIEF COMPLAINT/ REASON FOR VISIT 1. Followup. 2. Discuss test results. HISTORY OF PRESENT ILLNESS Mik is a 64-year-old male who presents to the clinic today for a one week followup from 02/17/2014. We discussed his test results from 02/17/2014, which were normal. His chest x-ray from 02/17/2014 wasnegative for pneumonia, but showed chronic bronchitis exacerbation. He is 75% better. His blood pressure is slightly high. He has gained 6 pounds in the last week. He needs to watch his sodium intake. There are no symptoms and signs suggestive of congestive heart failure. He continues to smoke. I advised him to quit, which he agrees to do. He mentioned that he had some sweating and hallucinations earlier this past week, which was most likely due to Prednisone therapy. He doesnt have these symptoms anymore. He can continue Prednisone therapy. I filled out work release form. He would like to return to work on 02/28/2014. I reviewed and updated his medication list. [...] EMR. VITAL SIGNS HEIGHT: 172 cm. WEIGHT: 102 kg. BMI: 34.48 kg/m2. PULSE: 75 /min. RESP: 16 /min. O2SAT: 97 %. SYSTOLIC: 140 mmHg. DIASTOLIC: 89 mmHg. SR: 154 mmHg/72 mmHg. PHYSICAL EXAMINATION GENERAL: Patient is sitting. [...] thrill. LUNGS: Normal respiratory effort. There is some wheezing. ABDOMEN: Moves with respiration. Bowel sounds present. Soft. No rebound tenderness, guarding or rigidity. No organomegaly. EXTREMITIES: No clubbing, cyanosis, edema, infection or calf tenderness. IMPRESSION/ REPORT/ PLAN 1. Acute on chronic bronchitis exacerbation. It is better. He still has some wheezing. Patient is stable from respiratory standpoint. There was no hypoxemia or tachypnea. Advised him to drink plenty offluids. He will continue and finish Prednisone therapy. It was decided to treat with Furosemide 20 mg by mouth daily in the morning. I filled out work release form. 2. Tobacco abuse. Recommended smoking cessation. He agreed to quit. He has quit date in March. Wediscussed complications. 3. Hypertension. His blood pressure is high today. He is stable from a cardiac standpoint. Advised to continue sodium controlled diet and current medication. Blood pressure goal is less than 140/90 mmHg. Need to continue cardiovascular risk factors modification. 4. Discussed test results. I reviewed test results from 02/17/2014. All questions were answered. The patient will return to the clinic in one week for followup and check BMP. This document serves as a record of services personally performed by Dr. Riley Sanchez. It was created on their behalf by Juan Ramos, a trained medical scientific officer. The creation of this record is based on the scribe's personal observations and the provider's statements to them. This document has been checked and approved by the attending provider. Riley Sanchez M.D./arti Electronically Signed By: RILEY SANCHEZ MD On: 02/25/2014 12:33 PM Modified by and Electronically Signed by: RILEY SANCHEZ MD On: 02/25/2014 12:33 PM Source: [facility] [email or web address] Document Id: [id number] documented in this encounter Miscellaneous Notes Miscellaneous - Riley Sanchez M.D. - 02/24/2014 5:48 PM CDT Ambulatory Patient Summary [place] [id number] [facility] [place] [id number] Visit Information Name: [facility]RIS [facility] Number: [id number] Current Date: 02/24/2014 17:48:25 Physicians Attending Provider: RILEY SANCHEZ MD Primary [...] day (in the morning) New Routed to [facility] [address] [place] [address] lisinopril-hydrochlorothiazide (lisinopril-hydrochlorothiazide 20 mg-12.5 mg oral tablet) See Instructions 2 tab(s) PO Daily in AM. / (Zestoretic) predniSONE (predniSONE 20 mg oral tablet) See Instructions 3 tab(s) PO Daily 5 day, 2 tab(s) PO Daily 5 day(s), 1 tab(s) PO Daily 5 days. with food Stop Taking the Following Medications: Medication list as of 02-24-14 17:48 Attention: If you have any medications at [...] Electronically Signed By: RILEY SANCHEZ MD Signed On:24-FEB-2014 17:48:05 Your Allergies & Intolerances Substance Reaction Symptoms [...] help loosen secretions in the lungs. ?? Bdkh-tow-qzuhafw cough medicines that contain dextromethorphan (such as [...] leg swelling, tenderness, redness or pain ?? 3701-8830 [facility], [address] [place] [address]. All rights reserved. This information is not intended as a substitute for professional medical care. Always follow your healthcare professional's instructions. [id number] MEDICATION: FUROSEMIDE You have been prescribed Furosemide (brand: Lasix) which is a water pill. It will remove excess water and minerals from the body by making you pass more urine. It is used to treat high blood pressure, swelling and water retention caused by heart disease and other medical problems. DIRECTIONS FOR USE: Take this medicine with food to avoid an upset stomach. It must be taken at regular intervals to be effective. It is usually taken once or twice a day. It begins to work in half an hour and lasts for 6hours. Take the first dose in the morning. If the label says to take it twice a day, take the seconddose in the late afternoon rather than at bedtime so that you will not have to get up during the night to go to the bathroom. If you were given this medicine to treat high blood pressure, measure your own blood pressure every few days to check your response. You may measure your own blood pressure at home, or have someone do it for you at a pharmacy, clinic or your doctors office. Notify your doctor if your pressure does notbegin to improve within 1 week. Notify your doctor if your blood pressure goes below 110/60 on two readings in a row (this is too low). The goal for most persons is to get their blood pressure below 140/90. If you were told to take this medicine every day, do not skip doses or suddenly stop taking this medicine since this might make your condition worse. DIET: Usually a high-potassium diet is advised when taking Lasix. Potassium supplements may also be given. Ask your doctor for more specific advice on this. WHAT TO WATCH FOR: POSSIBLE SIDE EFFECTS: Nausea, upset stomach, cramping, diarrhea, constipation (Take the medicine with food). Dizziness, especially when getting up from lying or sitting (Get up more slowly). Sun sensitivity, ringing in the ears (Contact your doctor if symptoms persist or become severe). Muscle cramps, weakness, thirst, confusion, fast/irregular heartbeats, seizures (Contact your doctor or return to this facility promptly). ALLERGIC REACTIONS: Rash, itching or swelling, trouble breathing or swallowing (Contact your doctor or return to this facility promptly). MEDICAL CONDITIONS: Before starting this medicine, be sure your doctor knows if you have any of the following conditions: ?? Diabetes, Gout ?? Lupus ?? Severe kidney disease ?? or ?? Sensitivity to any sulfa drug DRUG INTERACTIONS: Before starting this medicine, be sure your doctor knows if you are taking any ofthe following drugs: ?? Steroids (prednisone, etc.), ?? Nonsteroidal inflammatory drugs (NSAIDs such as ibuprofen) ?? [place] ?? ANTHONY inhibitors ?? Allopurinol ?? Amifostine ?? Aminoglycoside antibiotics ?? Bile acid sequestrants ?? Cisapride ?? Ethacrynic acid ?? Rituximab ?? Salicylates [NOTE: This information topic may not include all directions, precautions, medical conditions, drug/food interactions, and warnings for this drug. Check with your doctor, nurse, or pharmacist for any questions that you may have.] ?? [id number] [facility], [address] [place] [address]. All rights reserved. This information is not intended as a substitute for professional medical care. Always follow your healthcare professional's instructions. Your Goals/Additional instructions: This document has images extracted. Please consider using [employer] for all your patient education needs. Source: [facility] POWERCHART Document Id: [id number] Miscellaneous - Riley Sanchez M.D. - 02/24/2014 5:48 PM CDT Ambulatory Discharge Medication List [address] [id number] Visit Information Name: [facility] Number: [id number] Visit Date: 02/24/2014 17:48:23 Attending Provider: RILEY SANCHEZ MD Primary Care [...] day (in the morning) New Routed to [facility] [address] [place] [address] lisinopril-hydrochlorothiazide (lisinopril-hydrochlorothiazide 20 mg-12.5 mg oral tablet) See Instructions 2 tab(s) PO Daily in AM. / (Zestoretic) predniSONE (predniSONE 20 mg oral tablet) See Instructions 3 tab(s) PO Daily 5 day, 2 tab(s) PO Daily 5 day(s), 1 tab(s) PO Daily 5 days. with food Stop Taking the Following Medications: Medication list as of 02-24-14 17:48 Attention: If you have any medications at [...] Electronically Signed By: RILEY SANCHEZ MD Signed On:24-FEB-2014 17:48:05 Additional Information: Source: [facility] Document Id: [id number] [facility]ook - Riley Sanchez M.D. - 02/24/2014 5:48 PM CDT Return to Work Status Return to Work Status Entered On: 02/24/2014 17:49 CDT Performed On: 02/24/2014 17:48 CDT by RILEY SANCHEZ MD Return to Work Status Employer : [employer] Work Injury : No Work Status : Return to work no restrictions Return to Work Start Date : 03/01/2014 CDT Follow Up Appointment Needed : Yes Follow Up Appointment Date : 03/03/2014 CDT Follow Up Physician Name : RILEY Sharp MD - 02/24/2014 17:48 CDT Source: [facility] Document Id: [id number] CDT!9 [facility] - Juany Duncan, L.P.NBhavesh - 02/24/2014 5:20 PM CDT Ambulatory Vitals Height Weight Ambulatory Vitals Height Weight Entered On: 02/24/2014 17:21 CDT Performed On: 02/24/2014 17:20 CDT by JUANY DUNCAN LPN Vitals/Ht/Wt Apical Heart Rate : 94 /min Systolic Blood Pressure : 154 mmHg (HI) Diastolic Blood Pressure : 72 mmHg NIBP Mean : 99 mmHg BP Location : Right upper extremity Blood Pressure Cuff Size : Large Height : 172 cm(Converted to: 5 ft 8 inch(es), 68 inch(es)) JUANY DUNCAN LPN - 02/24/2014 17:20 CDT [facility] Document Id: [id number] CDT!9 Miscellaneous - Juany Duncan LBhaveshP.N. 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 Intake/History Entered On: 02/24/2014 17:20 CDT Performed On: 02/24/2014 17:17 CDT by JUANY DUNCAN LPN Intake Chief Complaint : one week follow-up from 02/17/2014 Apical Heart Rate : 75 /min Respiratory Rate : 16 /min Systolic Blood Pressure : 140 mmHg Diastolic Blood Pressure : 89 mmHg NIBP Mean : 106 mmHg BP Location : Left upper extremity Blood Pressure Cuff Size : Large SpO2 : 97 % Oxygen Therapy : Room air Height : 172 cm(Converted to: 5 ft 8 inch(es), 68 inch(es)) Actual Weight : 102 kg(Converted to: 224 lb 14 oz) Weight Source : Standing scale Dosing Weight Clinic : 102 kg Clinic BSA : 2.21 Body Mass Index : 34.48 kg/m2 JUANY DUNCAN LPN - 02/24/2014 17:17 CDT General Info Information Given By : Patient Preferred Communication Mode : Verbal, Written Languages : Romanian Is Patient Female and 13-50 no hysterectomy : No JUANY DUNCAN LPN - 02/24/2014 17:17 CDT Subjective Pain Symptoms : No JUANY DUNCAN LPN - 02/24/2014 17:17 CDT Dependent Habits Tobacco Use/Currently Using : Yes Tobacco Use/Advised to Quit : Yes Exposure to Tobacco Smoke : Patient smokes Smoking Status : Current every day smoker JUANY DUNCAN SHEMAR - 02/24/2014 17:17 CDT Tobacco Use Grid Type : Cigarettes Cigarette Use Packs/Day : 0.5 Last Use : today JUANY DUNCAN SHEMAR - 02/24/2014 17:17 CDT Caffeine Use Grid Caffeine Use : Current Type : Coffee, Tea Frequency : Daily Amount : 2 cup coffee/2 tea daily JUANY DUNCAN SHEMAR - 02/24/2014 17:17 CDT Recreational Drug Use Grid Drug Use : None JUANY DUNCAN SHEMAR - 02/24/2014 17:17 CDT Source: [facility] Document Id: [id number] CDT!44 documented in this encounter Plan of Treatment Upcoming Encounters Date Type Specialty Care Team Description 04/12/2022 Office Visit Cardiovascular Disease Simone Gooden AP RN, C.N.P. [address] [phone] (Wo rk) documented as of this encounter Visit Diagnoses Not on filedocumented in this encounter Additional Health Concerns Assessment Noted Time PHQ-9 Depression Total Score: 3 01/17/2014 1:01 PM CDT documented as of this encounter
[2022-03-29 07:58] LABS: Magnesium* 1.9 mg/dL (1.5-2.6)
--- OUTSIDE RECORDS SUMMARY | 2022-03-29 07:58 | XMS_ITS | Encounter Summary ---
:1950 Author Organization [facility] Address [address] [place] [address] Care Team Providers Name Role Phone Unavailable Primary Care Provider Unavailable Encounter Details Date Type Department Care Team Description 12/10/2012 Hospital Encounter HX [facility] Riley Jimenez M.D. [address] [facility] [address] [id number] Social History Tobacco Use Types Packs/Day [...] How often do you attend adventist or religion services? 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 - 12/10/2012 8:38 AM CDT [id number] CHIEF COMPLAINT/REASON FOR VISIT 1. Annual physical examination. 2. Review chronic medical problems. 3. Renew medications. HISTORY OF PRESENT ILLNESS Mr. Salazar is a 62-year-old man who came in today for above complaints. He had physical examination on October 01, 2011. We discussed adult preventive services. He has not eaten anything yet. He is ready for fasting blood tests. 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 He still has pain intermittently, usually in the morning, usually goes away with activities. He still has pain, stiffness in both shoulders. He did receive steroid injection. It did not really help. According to patient he was told he is going to need surgery of the shoulder.Patient wears eyeglasses. Advised him to see eye doctor once a year. He usually sees dentist every year. He does not do exercise. He has a lot of activities. He is still working at [employer]. Patient has bladder cancer. He saw Dr. Jatinder Camejo, urologist, in the past. There was no recent followup. According to Dr. Camejo' progress note from October 07, 2011, he should have followup appointment in February or April 2012 with repeat cystoscopy. He did not have followup. He does not have problem with urination. Depends on his water intake, sometimes he has to get up 3 or 4 times at night. There was no dysuria, hematuria. He is not sexually active. He has history of polymyalgia rheumatica and elevated sedimentation rate. Prednisone was discontinued because he does not like the side effect. He does not have symptoms and signs suggestive for giant cell arteritis. He has gastroesophageal reflux disease. There was no indigestion, acid reflux. Currently he does not take any medications becausehe does not have symptoms. He has hypertension. He takes lisinopril/hydrochlorothiazide. There was no side effect. He denies chest pain, shortness of breath, orthopnea, paroxysmal nocturnal dyspnea, palpitations, or peripheral edema. He has had low potassium in the past. We need to check electrolytes and renal function. He has been using Combivent inhaler which is no longer available. We need to givehim Combivent Respimat. It should be noted that he is still smoking cigarettes. There was no recent bronchitis. CURRENT MEDICATIONS 1. Combivent Respimat 1 puff 4 times a day. 2. Lisinopril/hydrochlorothiazide 20 mg/12.5 mg 2 tablets by mouth daily in the morning. 3. Albuterol inhaler 2 puffs 4 times a day as needed. 4. Calcium with vitamin D 600 mg/400 units 1 tablet by mouth twice a day. 5. Excedrin Migraine 3 tablets by mouth as needed for headache. ALLERGIES No known drug allergies. SYSTEMS REVIEW As per the history of present illness. Other systems are reviewed and are negative. PAST MEDICAL / SURGICAL HISTORY 1. History of right kidney cyst [...] 11/25 1012. 27. Status post colonoscopy, 11/26/2011. PREVENTIVE SERVICES Reviewed and updated as per the EMR. SOCIAL HISTORY He is single. He lives alone. He smokes cigarettes. He denies alcohol or drug abuse. He does not do exercise but he is physically active. He is still working at [employer] in [place], [place]. FAMILY HISTORY Asthma in brother. Father had liver and pancreas cancer, lung cancer in sister. Mother has cataract and glaucoma, hearing loss in father. Hypertension in mother and brother. Parkinson disease in father. VITAL SIGNS HEIGHT: 174.5 cm. WEIGHT: 100 kg. BMI: 32.84. TEMPERATURE: 36.3. PULSE: 81. RESPIRATIONS: 24. OXYGEN SATURATION: 96% on room air. BLOOD PRESSURE: 158/78, repeat blood pressure 134/72. PHYSICAL EXAMINATION GENERAL: Patient is sitting. No distress. Able to talk without interruption. SKIN: No rash, bruise or nodules. HEAD: No facial rash, asymmetry or sinus tenderness. EYES: PERRLA. EOMI. No pallor, icterus or conjunctivitis. He has cataract extraction. ENT: No nasal congestion, discharge [...] tone. No hemorrhoid or rectal mass. Stool Guaiac negative. PROSTATE: Appropriate for age. GENITALIA: No hydrocele, hernia. SPINE: No scoliosis or kyphosis. No spinous tenderness or mass. JOINTS: No joint swelling or deformity. No decreased range of motion. EXTREMITIES: No clubbing, cyanosis, edema, infection or calf tenderness. GAIT: No abnormal gait. MENTAL: Alert and oriented x 3. Normal mood and affect. NEURO: Grossly nonfocal exam. IMPRESSION/REPORT/PLAN 1. Annual physical examination. Discussed with him regarding adult preventive services. He needs to eat healthy diet and he should do regular exercise to lose weight and maintain healthy body weight and body mass index. He needs to see eye doctor once a year and dentist at recommended intervals. He needs health maintenance exam every year. EKG was obtained which shows sinus arrhythmia, nonspecific ST-T wave changes, ventricular rate 86 beat per minute. Spirometry was obtained which is suggestive of restriction. There was no significant obstruction. 2. Degenerative joint disease. Patient had steroid injection in the past. It does not really help. He was advised to see Orthopedics for consideration of shoulder surgery. He will be referred to see Dr. Willingham, [facility]. Patient agreed with plan. 3. Elevated sedimentation rate. We need to check sedimentation rate level again, make sure it is nottoo high. 4. Gastroesophageal reflux disease. He does not have symptoms. He will continue antireflux measures. 5. Hypertension. Blood pressure is controlled. He will continue current medications. So far no side effects. 6. Hypokalemia. We need to make sure he does not have electrolyte imbalance because of lisinopril/hydrochlorothiazide therapy. 7. History of urinary bladder cancer. He was supposed to see Dr. Camejo, urologist, last year (2011). He did not see Dr. Camejo for followup. He will make an appointment to see Dr. Camejo for followup. We need to check urine cytology. It is important for him to follow with urologist regularly. 8. Renew medication. He was given prescription for Combivent Respimat. All of his questions were answered. Today's studies: Chest x-ray, PA and lateral, spirometry urine cytology, fasting basic metabolic profile, complete blood count, liver profile, lipid profile, screening PSA, sedimentation rate, and TSH. He will be notified when we get all these test results. Return to clinic in 6 months for followup. Riley Sanchez M.D./dustin Electronically Signed By: RILEY SANCHEZ MD On: 12/21/2012 12:10 PM Modified by and Electronically Signed by: RILEY SANCHEZ MD On: 12/21/2012 12:10 PM Source: [facility] [id number] Document Id: [id number] documented in this encounter Miscellaneous Notes Miscellaneous - Riley Sanchez M.D. - 12/20/2012 1:17 PM CDT Results Notification Document Contains Addenda Addendum by RILEY SANCHEZ MD on 21 December 2012 15:11:18 CDT From: RILEY SANCHEZ MD To: CLEO MAJOR LPN; Sent: 12/21/2012 15:11:18 CDT Show up: 12/21/2012 15:11:00 CDT Subject: RE: Results Notification It's OK. Addendum by CLEO MAJOR LPN on 21 December 2012 14:40:47 CDT From: CLEO MAJOR LPN To: RILEY SANCHEZ MD; Sent: 12/21/2012 14:40:47 CDT Show up: 12/21/2012 14:40:00 CDT Subject: RE: Results Notification He is aware of this result. He has an appt. to see Dr. Camejo on 01-25-13. Is that ok or does he need to be seen sooner? From: RILEY SANCHEZ MD To: CLEO MAJOR LPN; Sent: 12/20/2012 13:17:36 CDT ! Show up: 12/20/2012 18:17:36 [facility] Subject: Results Notification Actions: Notify patient of results Reminder Comments: Please call him. No cancer cells in urine. 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 He needs to follow with Dr. Borges. Results: Date Result Name Value 12/10/2012 09:37 Spec Desc-[place] See Comment 12/10/2012 09:[address] [id number] 12/10/2012 09:37 Cyto U FnlDiag-[place] See Comment 12/10/2012 09:37 Cyto U Sng Path-[place] See Comment [facility] POWERCHART Document Id: [id number] Miscellaneous - Riley Sanchez M.D. - 12/13/2012 5:41 PM CDT Custom Result Letter 13 December 2012 SEVEN SALAZAR [address] [facility] [id number] Dear SEVEN SALAZAR, Glucose (Sugar) slightly high. Cut back calories/carbohydrates. Increase exercise/activity level. Tests for kidney, liver, prostate, thyroid and blood count are OK. Cholesterol is good. Sed rate (Test for inflammation) is just above normal range, not serious. Chest X-ray was OK. Please follow up with us as we discussed during your visit or sooner if you have any concerns. If you have questions or concerns, please do not hesitate to call our office. Result Name Current Result Normal Range Sodium Lvl (mmol/L) 145 12/10/2012 135 - 145 Potassium Lvl (mmol/L) 4.5 12/10/2012 3.5 - 4.8 Chloride (mmol/L) (L) 98 12/10/2012 100 - 108 CO2 (mmol/L) (H) 35 12/10/2012 22 - 29 Alkaline Phosphatase (unit/L) (H) 129 12/10/2012 45 - 115 Glucose Fasting (mg/dL) (H) 102 12/10/2012 70 - 99 Creatinine (mg/dL) 1.0 12/10/2012 0.9 - 1.4 EGFR (MDRD) (mL/min) >60 12/10/2012 EGFR (MDRD) (mL/min) >60 12/10/2012 BUN (mg/dL) 23 12/10/2012 7 - 23 Calcium Lvl (mg/dL) 10.5 12/10/2012 8.5 - 10.5 Protein Total (mg/dL) 7.8 12/10/2012 6.3 - 8.2 Albumin Lvl (gm/dL) 4.4 12/10/2012 3.5 - 5.0 AST (unit/L) 25 12/10/2012 8 - 48 ALT (unit/L) 29 12/10/2012 21 - 72 Bili Total (mg/dL) 0.6 12/10/2012 0.1 - 1.0 Bili Direct (mg/dL) 0.2 12/10/2012 0.0 - 0.3 Cholesterol (mg/dL) 188 12/10/2012 0 - 200 Trig (mg/dL) 133 12/10/2012 0 - 150 HDL (mg/dL) 48.0 12/10/2012 40.0 - 60.0 LDL Calculated (mg/dL) (H) 113 12/10/2012 0 - 100 [id number] (ng/mL) 1.7 12/10/2012 <= 4.5 - TSH, Sensitive-Mas (mIU/L) 1.4 12/10/2012 0.3-5.0 - Hgb (g/dL) 16.0 12/10/2012 13.5 - 17.5 Hct (%) 45.9 12/10/2012 38.8 - 50.0 WBC (x10(9)/L) 9.1 12/10/2012 3.5 - 10.5 Platelet (x10(9)/L) 284 12/10/2012 150 - 450 Sed Rate (mm/hr) (H) 24 12/10/2012 0 - 22 XR Chest 2 Views 12/10/2012 Sincerely, RILEY SANCHEZ [address] [place], [place] [id number] Electronic Signature Electronically Signed By: RILEY SANCHEZ MD On: 13 December 2012 This document has images extracted. Source: [facility] POWERCHART Document Id: [id number] Electronically signed by Conversion, [facility] [place] [id number] at 10/02/2016 4:20 AM CDT Miscellaneous - Riley Sanchez M.D. - 12/13/2012 4:36 PM CDT EKG and spirometry 12/10/2012 Document Contains Addenda Addendum by CLEO MAJOR LPN on 14 December 2012 10:59:11 CDT Seven called back and is aware of this information. Addendum by CLEO MAJOR LPN on 14 December 2012 09:05:56 CDT Message left to call back. From: RILEY SANCHEZ MD To: CLEO MAJOR LPN; Sent: 12/13/2012 16:36:00 CDT Subject: EKG and spirometry 12/10/2012 Actions: Notify patient of results Please call him. EKG was OK. Spirometry showed some restriction. He needs to quit smoking and lose some weight. Source: [facility] POWERCHART Document Id: [id number] Miscellaneous - Riley Sanchez M.D. - 12/10/2012 9:21 AM CDT Ambulatory Patient Summary [address] [address] Visit Information Name: SEVEN SALAZAR [facility] Number: [id number] Current Date: 12/10/2012 09:21:17 Physicians Attending Provider: RILEY SANCHEZ MD Primary Care Provider: RILEY SANCHEZ MD Your Medications Here is a list of your medications. It is important to take your medications as directed. Use a pillbox or chart to help remind you to take your medications. Please let your doctor or nurse know if you have problems taking your medications. Medication/Strength Dose Route Frequency Indications/Special Instructions/Comments/Notes ipratropium-albuterol (ipratropium-albuterol CFC free 100 mcg-20 mcg/inh [...] Time Location Reason Provider No Appointments found Your Goals/Additional instructions: Source: [facility] POWERCHART Document Id: [id number] Miscellaneous - Riley Sanchez M.D. - 12/10/2012 9:21 AM CDT Ambulatory Depart Summary [address] [address] Visit Information Name: SEVEN SALAZAR [facility] Number: [id number] Visit Date: 12/10/2012 09:21:16 Attending Provider: RILEY SANCHEZ MD Primary Care [...] medications. Medication/Strength Dose Route Frequency Indications/Special Instructions/Comments/Notes ipratropium-albuterol (ipratropium-albuterol CFC free 100 mcg-20 mcg/inh [...] your provider for clarification. Additional Information: Source: [facility] POWERCHART Document Id: [id number] Miscellaneous - Riley Sanchez M.D. - 12/10/2012 9:09 AM CDT Need orthopedic consult at [facility] Document Contains Addenda Addendum by CLEO MAJOR LPN on 11 December 2012 09:57:47 CDT From: CLEO MAJOR LPN To: RILEY SANCHEZ MD; Sent: 12/11/2012 09:57:47 CDT Subject: RE: Need orthopedic consult at [facility] Seven has been scheduled for an appt. with Dr. Acuña at the [facility] in [place] on 12-24-12 at 8:30am. He needs to picker/puller a CD from X-ray here to hand carry. He is aware of all this and a referral has been sent to Marisol Guadalupe From: RILEY SANCHEZ MD To: CLEO MAJOR LPN; Sent: 12/10/2012 09:09:33 CDT Subject: Need orthopedic consult at [facility] Actions: Notify patient- refer to General Message, Notify patient of Future Order Please schedule orthopedic consult at [facility] with Dr. Acuña. Dx: Shoulder pain due to osteoarthritis. Source: [facility] POWERCHART Document Id: [id number] Miscellaneous - Riley Sanchez M.D. - 12/10/2012 9:09 AM CDT School or Work Excuse School or Work Excuse Entered On: 12/10/2012 9:10 CDT Performed On: 12/10/2012 9:09 CDT by RILEY SANCHEZ MD School or Work Excuse Date Patient Seen : 12/10/2012 CDT School or Work Restrictions : Other: He was seen at the clinic this morning. RILEY SANCHEZ MD - 12/10/2012 9:09 CDT Source: [employer] Document Id: [id number] CDT!4 Miscellaneous - Conversion, Historical Provider Ser - 12/10/2012 8:50 AM CDT Ambulatory Vitals Height Weight Ambulatory Vitals Height Weight Entered On: 12/10/2012 8:51 CDT Performed On: 12/10/2012 8:50 CDT by CLEO MAJOR LPN Vitals/Ht/Wt Systolic Blood Pressure : 134 mmHg Diastolic Blood Pressure : 72 mmHg NIBP Mean : 93 mmHg BP Location : Left upper extremity Blood Pressure Cuff Size : Thigh CLEO MAJOR LPN - 12/10/2012 8:50 CDT Source: [employer] Document Id: [id number] CDT!7 Miscellaneous - Conversion, Historical Provider Ser - 12/10/2012 8:47 AM CDT Adult Browning Processor Intake/History Adult Browning Processor Intake/History Entered On: 12/10/2012 8:50 CDT Performed On: 12/10/2012 8:47 CDT by CLEO MAJOR LPN Intake Chief Complaint : Annual physical. Temperature Core : 36.3 DegC(Converted to: 97.3 DegF) (LOW) Peripheral Pulse Rate : 81 /min Respiratory Rate : 24 /min (HI) Systolic Blood Pressure : 158 mmHg (HI) Diastolic Blood Pressure : 78 mmHg NIBP Mean : 105 mmHg BP Location : Left upper extremity Blood Pressure Cuff Size : Thigh SpO2 : 96 % Oxygen Therapy : Room air Height : 174.5 cm(Converted to: 5 ft 9 inch(es), 68.70 inch(es)) Actual Weight : 100 kg(Converted to: 220 lb 7 oz) Weight Source : Standing scale Dosing Weight Clinic : 100 kg Clinic BSA : 2.2 Body Mass Index : 32.84 kg/m2 CLEO MAJOR SHEMAR - 12/10/2012 8:47 CDT General Info Information Given By : Patient Languages : Sami CLEO MAJOR ANGIE SHEMAR - 12/10/2012 8:47 CDT Subjective Pain Symptoms : No CLEO MAJOR ANGIE SHEMAR - 12/10/2012 8:47 CDT Dependent Habits Tobacco Use/Currently Using : Yes Exposure to Tobacco Smoke : Patient smokes Smoking Status : Current every day smoker CLEO MAJOR ANGIE STATON - 12/10/2012 8:47 CDT Tobacco Use Grid Type : Cigarettes Cigarette Use Packs/Day : 0.5 Last Use : today CLEO MAJOR ANGIE STATON - 12/10/2012 8:47 CDT Caffeine Use Grid Caffeine Use : Current Type : Coffee, Tea Frequency : Daily Amount : 2 cup coffee/2 tea daily CLEO MAJOR ANGIE STATON - 12/10/2012 8:47 CDT Recreational Drug Use Grid Drug Use : None CLEO MAJOR ANGIE STATON - 12/10/2012 8:47 CDT Source: [employer] Document Id: [id number] CDT!42 Miscellaneous - Conversion, Historical Provider Ser - 12/10/2012 8:45 AM CDT PHQ-9 PHQ-9 Entered On: 12/10/2012 8:47 CDT Performed On: 12/10/2012 8:45 CDT by CLEO MAJOR LPN PHQ-9 Little interest or pleasure in doing things : Not at all Feeling down, depressed, or hopeless : Not at all Trouble falling or staying asleep, or sleeping too much : Nearly every day Feeling tired or having little energy : Several days Poor appetite or overeating : Several days Feeling bad about yourself or that you are a failure : Nearly every day Trouble concentrating on things : Nearly every day Moving or speaking slowly; restless or fidgety : Not at all Thoughts that you would be better off /hurting self : Several days PHQ-9 Calculated Score : 12 Problems make work, home, or dealing with others : Not difficult at all MORIAHCLEO ANGIE STATON - 12/10/2012 8:45 CDT Source: [facility] POWERCHART Document Id: [id number] CDT!13 documented in this encounter Plan of Treatment Upcoming Encounters Date Type Specialty Care Team Description 04/12/2022 Office Visit Cardiovascular Disease Simone Gooden AP RN, C.N.P. [address] [place] [address] [phone] (Wo rk) documented as of this encounter Procedures Procedure Name Priority Date/Time Associated Comments Diagnosis CYTOLOGY, U Routine 12/10/2012 9:37 AM Results f or this CDT procedure are i n the results section. DX CHEST AP OR PA AND Routine 12/10/2012 9:35 AM Results for this LATERAL 2 VIEWS CDT procedure ar e in the results section. LIPID PANEL, S Routine 12/10/2012 9:34 AM Results for this CDT procedure are i n the results section. HEPATIC FUNCTION Routine 12/10/2012 9:34 AM Resul ts for this PANEL, S CDT procedure are i n the results section. PROSTATE-SPECIFIC AG Routine 12/10/2012 9:34 AM R esults for this (PSA) SCRN, S CDT procedure are in the results section. AUTOMATED Routine 12/10/2012 9:34 AM Results f or this DIFFERENTIAL, B CDT procedure ar e in the results section. SEDIMENTATION RATE, B Routine 12/10/2012 9:34 AM Results for this CDT procedure are i n the results section. CBC WITH DIFFERENTIAL, Routine 12/10/2012 9:34 AM Results for this B CDT procedure are i n the results section. THYROID-STIMULATING Routine 12/10/2012 9:34 AM Re sults for this HORMONE-SENSITIVE CDT procedure are in (S-TSH) the results section. BASIC METABOLIC PANEL, Routine 12/10/2012 9:34 AM Results for this S/P CDT procedure are i n the results section. documented in this encounter Results Cytology, Urine (12/10/2012 9:37 AM CDT) [facility] Method Time Signature HX Spec See Comment POWERCHART Desc-[place] Comment: RESULT: A. ??Urine, NOS: ??Received 40cc of yellow urine in PreservCyt Test Performed by: [facility] [place] [address] Professional Poker Player: Cem cali III, M.D. Specimen (Source) Anatomical Collection Method Collection Time Re ceived Time Location / / Volume Laterality Urine 12/10/2012 9:37 AM CDT Riley Sanchez M.D. LAB URINE ORDERABLES Performing Organization Address City/State/ZIP Code Phon e Number POWERCHART DX Chest AP or PA and Lateral 2 Views (12/10/2012 9:35 AM CDT) Anatomical Region Laterality Modality Chest N/A Radiographic Imaging Specimen (Source) Anatomical Collection Method Collection Time Re ceived Time Location / / Volume Laterality 12/10/2012 9:35 AM CDT Addenda Addendum by Provider, Javid Samson 12/10/2012 9:35 AM CDT RAD^^^OW XR Chest 2 Views 12/10/2012 09:35:00 Impressions 12/10/2012 10:01 AM CDT No acute cardiopulmonary disease. Narrative 12/10/2012 10:01 AM CDT COMPARISON: 10/21/2011. FINDINGS: Heart size, cardiomediastinal, hilar contours are within normal limits. Lungs are clear. No pleur al effusion. No pulmonary vascular congestion. No acute osseous ab normality identified. Degenerative changes of both shoulders. Procedure Note Juan Toth M.D. / Provider, His lilli M.D. - 09/20/2016 COMPARISON: 10/21/2011. FINDINGS: Heart size, cardiomediastinal, hilar contours are within normal limits. Lungs are clear. No pleur al effusion. No pulmonary vascular congestion. No acute osseous ab normality identified. Degenerative changes of both shoulders. IMPRESSION: No acute cardiopulmonary dis ease. Jay Anderson Jr., R.D.M.SBhavesh IMG DIAGNOSTIC IMAGI NG PROCEDURES (ABNORMAL) Automated Differential (12/10/2012 9:34 AM CDT) [facility] Method Time Signature Neutro % 59.0 34.0 - POWERCHART 67.9 Lymphocytes % 22.0 21.8 - POWERCHART 53.1 HX Wirt % 11.7 5.3 - 12.2 POWERCHART HX Eos % 6.9 0.8 - 7.0 POWERCHART HX Baso % 0.4 0.2 - 1.2 POWERCHART Absolute 5.37 1.70 - POWERCHART Neutrophils 7.00 109L Lymphocytes 2.00 0.90 - POWERCHART 2.90 X109L Monocytes 1.07 (H) 0.30 - POWERCHART 0.90 X109L Eosinophils 0.63 (H) 0.05 - POWERCHART 0.50 X109L Absolute 0.04 0.00 - POWERCHART Basophil 0.30 X109L Specimen Anatomical Collection Method Collection Time Receive d Time (Source) Location / / Volume Laterality Blood 12/10/2012 9:34 AM 3 9:34 CDT AM CDT Riley Valente M.Bonilla. LAB BLOOD ADD-ON Performing Organization Address City/State/ZIP Code Phon e Number POWERCHART (ABNORMAL) Sedimentation Rate (12/10/2012 9:34 AM CDT) Patholo gist Method Time Signature Sedimentation 24 (H) 0 - 22 POWERCHART Rate, B MMHR Specimen (Source) Anatomical Collection Method Collection Time Re ceived Time Location / / Volume Laterality Blood 12/10/2012 9:34 AM CDT Riley Sanchez M.D. LAB BLOOD ADD-ON Performing Organization Address City/State/ZIP Code Phon e Number POWERCHART CBC with Differential (12/10/2012 9:34 AM CDT) P athologist Signature Leukocytes 9.1 3.5 - 10.5 POWERCHART X109L Erythrocytes 5.52 4.32 - POWERCHART 5.72 [id number] Hemoglobin 16.0 13.5 - POWERCHART 17.5 GDL Hematocrit 45.9 38.8 - POWERCHART 50.0 MCV 83.2 81.0 - POWERCHART 95.0 FL Platelet Count 284 150 - 450 POWERCHART X109L HX RDW 14.6 11.8 - POWERCHART 15.6 HXDifferential? Auto POWERCHART Specimen (Source) Anatomical Collection Method Collection Time Re ceived Time Location / / Volume Laterality Blood 12/10/2012 9:34 AM CDT Riley Sanchez M.D. LAB BLOOD ADD-ON Performing Organization Address [facility]/ZIP Code Phon e Number POWERCHART PSA (Prostate-Specific Antigen) Screen (12/10/2012 9:34 AM CDT) athologist Signature Prostate-Specif 1.7 <=4.5 NGML POWERCHART ic Ag Comment: The testing method is an electrochemilum inescence assay manufactured by [employer] and performed on the Modular or Alexis system . Values obtained with different assay met hods or kits may be different and cannot be used inte rchangeably. Test results cannot be interpreted as ab solute evidence for the presence or absence of malignant disease. Test Performed by: [place] [address] Professional Poker Player: Cem cali III, M.D. Specimen (Source) Anatomical Collection Method Collection Time Re ceived Time Location / / Volume Laterality Blood 12/10/2012 9:34 AM CDT Riley Sanchez M.D. LAB BLOOD ADD-ON Performing Organization Address [facility] Phon e Number POWERCHART Thyroid-Stimulating Hormone-Sensitive (s-TSH) (12/10/2012 9:34 AM CDT) athologist Signature TSH, Sensitive 1.4 0.3 - 5.0 POWERCHART MIUL Comment: Test Performed by: [place] [address] Professional Poker Player: Cem cali III, M.D. Specimen (Source) Anatomical Collection Method Collection Time Re ceived Time Location / / Volume Laterality Blood 12/10/2012 9:34 AM CDT Riley Sanchez M.Ele LAB BLOOD ADD-ON Performing Organization Address [facility] Code Phon e Number POWERCHART (ABNORMAL) Hepatic Function Panel (12/10/2012 9:34 AM CDT) Patholo gist Method Time Signature Albumin, S 4.4 3.5 - 5.0 POWERCHART GMDL Alkaline 129 (H) 45 - 115 POWERCHART Phosphatase, S UNITL Aspartate 25 8 - 48 POWERCHART Aminotransferase UNITL (AST), S Alanine 29 21 - 72 POWERCHART Amniotransferase, LD UNITL Bilirubin, Total, S 0.6 0.1 - 1.0 POWERCHART MGDL Bilirubin, Direct, S 0.2 0.0 - 0.3 POWERCHAR T MGDL Total Protein, S 7.8 6.3 - 8.2 POWERCHART MGDL Specimen (Source) Anatomical Collection Method Collection Time Re ceived Time Location / / Volume Laterality Blood 12/10/2012 9:34 AM CDT Riley Sanchez M.D. LAB BLOOD ADD-ON Performing Organization Address City/State/ZIP Code Phon e Number POWERCHART (ABNORMAL) Lipid Panel (12/10/2012 9:34 AM CDT) Patholo gist Method Time Signature Cholesterol, Total 188 0 - 200 POWERCHART MGDL HX HDL 48.0 40.0 - POWERCHART 60.0 MGDL Triglycerides 133 0 - 150 POWERCHART MGDL Calculated LDL 113 (H) 0 - 100 POWERCHART MGDL Specimen (Source) Anatomical Collection Method Collection Time Re ceived Time Location / / Volume Laterality Blood 12/10/2012 9:34 AM CDT Riley Sanchez M.D. LAB BLOOD ADD-ON Performing Organization Address City/[facility] Code Phon e Number POWERCHART (ABNORMAL) BMP (Basic Metabolic Panel) (12/10/2012 9:34 AM CDT) P athologist Signature BUN (Blood Urea 23 7 - 23 POWERCHART Nitrogen), S MGDL Creatinine 1.0 0.9 - 1.4 POWERCHART MGDL Potassium, S 4.5 3.5 - 4.8 POWERCHART MMOLL Sodium, S 145 135 - 145 POWERCHART MMOLL Chloride, S 98 (L) 100 - 108 POWERCHART MMOLL CO2 Total 35 (H) 22 - 29 POWERCHART MMOLL Calcium, Total, 10.5 8.5 - 10.5 POWERCHART S MGDL Glucose, 102 (H) 70 - 99 POWERCHART Fasting, S MGDL HXeGFR (MDRD) >60 MLMIN POWERCHART eGFR >60 MLMIN POWERCHART Black/ Specimen (Source) Anatomical Collection Method Collection Time Re ceived Time Location / / Volume Laterality Blood 12/10/2012 9:34 AM CDT Riley Sanchez M.D. LAB BLOOD ADD-ON Performing Organization Address City/State/ZIP Code Phon e Number POWERCHART documented in this encounter Visit Diagnoses Not on filedocumented in this encounter Additional Health Concerns Assessment Noted Time PHQ-9 Depression Total Score: 12 12/10/2012 8:45 AM CD T documented as of this encounter
--- OUTSIDE RECORDS SUMMARY | 2022-03-29 07:58 | XMS_ITS | Encounter Summary ---
:1950 Author Organization [facility] Address [address] [place] [address] Care Team Providers Name Role Phone Unavailable Primary Care Provider Unavailable Encounter Details Date Type Department Care Team Description 08/06/2012 Hospital Encounter HX [facility] FB Riley Jimenez M.D. [address] [facility], [facility] [address] [phone] Social History Tobacco Use Types Packs/Day [...] How often do you attend shinto or sikhism services? 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 - 08/06/2012 10:56 AM CDT [id number] CHIEF COMPLAINT/REASON FOR VISIT Swollen right hand. HISTORY OF PRESENT ILLNESS Mr. Salazar is a 62-year-old man who came in today for evaluation of swollen right hand. He fell at work on July 31, 2012. He works at [employer] in [place], [place]. He slipped on the ice, his hip quit working and he lost balance and fell. He broke the fall with his right hand. Since then he noticed swollen right hand with some discomfort and pain especially at the base of the thumb wrist joint area. He also noticed a little bit of redness. There was no head injury. There were no other preceding symptoms. CURRENT MEDICATIONS Reviewed and updated as per the [...] distress. Able to talk without interruption. EXTREMITIES: Examination of right wrist and hand. It is a little swollen, especially dorsum of the right hand with mild erythema. There is slightly decreased range of motion of the wrist joint. He has good radial pulse. There was no cyanosis. There was no crepitus. IMPRESSION/REPORT/PLAN Painful swelling of right hand and wrist following after fall at work on July 31, 2012. X-ray of the right hand and right wrist was obtained. There was no evidence of fracture per radiologist. I reviewed x-ray results with him. He was given wrist splint for the wrist. He should take pain medication as needed. He should elevate right upper arm. He should call me if there is persistent problem or worsening of symptoms. He would like to return to work on August 10, 2012 without restrictions. He should contact me if he has more problems at work. At that time he may need work restrictions. All of his questions were answered. Return to clinic as previously scheduled on August 27, 2012 for blood test and follow up appointment on August 31, 2012. Riley Sanchez M.D./milagros Electronically Signed By: RILEY SANCHEZ MD On: 08/11/2012 05:32 PM Source: [facility] Document Id: [id number] documented in this encounter Miscellaneous Notes Miscellaneous - Riley Sanchez M.D. - 08/06/2012 12:01 PM CDT Ambulatory Patient Summary [address] [address] Visit Information Name: SEVEN SALAZAR [facility] Number: [id number] Current Date: 08/06/2012 12:01:36 Physicians Attending Provider: RILEY SNACHEZ MD Primary Care Provider: RILEY SANCHEZ MD Your Medications Here is a list of your medications. It is important to take your medications as directed. Use a pillbox or chart to help remind you to take your medications. Please let your doctor or nurse know if you have problems taking your medications. Medication/Strength Dose Route Frequency Indications/Special Instructions/Comments cyclobenzaprine (cyclobenzaprine 10 mg oral tablet) 10 mg Oral three times a day as needed for Muscle spasm albuterol (albuterol 90 mcg/inh inhalation aerosol with adapter) 2 puff(s) Inhalation four times a day as needed for Shortness of breath / Wheezing lisinopril-hydrochlorothiazide (hydrochlorothiazide-lisinopril 25 mg-20 mg oral tablet) See Instructions 1.5 tab(s) PO Daily AM ipratropium-albuterol (Combivent 18 mcg-103 mcg/inh inhalation aerosol with adapter) 2 puff(s) Inhalation four times a day (shake well before using) use with spacer chamber predniSONE (predniSONE 5 mg oral tablet) See Instructions 2 tab(s) PO Daily AM for 7 days, then 1.5 tab(s) PO Daily AM for 7 days, then 1 tab(s) PO Daily in AM for 7 days, then 0.5 tab(s) PO Daily in AM for 7 days then STOP. with food calcium-vitamin D (Caltrate 600 with D 600 mg-400 intl units oral tablet) 1 tab(s) Oral two times a day with food with plenty of water omeprazole (omeprazole 20 mg oral delayed release capsule) 20 mg Oral once a day APAP/ASA/caffeine (Excedrin Migraine) 3 tab(s) Oral once [...] Upcoming Appointments Date Time Location Reason Provider 08/27/2012 07:00 [facility] 08/31/2012 14:50 [facility] 1 month follow up. Need blood tests before appt. Riley Sanchez MD Your Goals/Additional instructions: Source: [facility] POWERCHART Document Id: [id number] Miscellaneous - Riley Sanchez M.D. - 08/06/2012 12:01 PM CDT Ambulatory Depart Summary [address] [address] Visit Information Name: SEVEN SALAZAR [facility] Number: [id number] Visit Date: 08/06/2012 12:01:35 Attending Provider: RILEY SANCHEZ MD Primary Care [...] your medications. Medication/Strength Dose Route Frequency Indications/Special Instructions/Comments cyclobenzaprine (cyclobenzaprine 10 mg oral tablet) 10 mg Oral three times a day as needed for Muscle spasm albuterol (albuterol 90 mcg/inh inhalation aerosol with adapter) 2 puff(s) Inhalation four times a day as needed for Shortness of breath / Wheezing lisinopril-hydrochlorothiazide (hydrochlorothiazide-lisinopril 25 mg-20 mg oral tablet) See Instructions 1.5 tab(s) PO Daily AM ipratropium-albuterol (Combivent 18 mcg-103 mcg/inh inhalation aerosol with adapter) 2 puff(s) Inhalation four times a day (shake well before using) use with spacer chamber predniSONE (predniSONE 5 mg oral tablet) See Instructions 2 tab(s) PO Daily AM for 7 days, then 1.5 tab(s) PO Daily AM for 7 days, then 1 tab(s) PO Daily in AM for 7 days, then 0.5 tab(s) PO Daily in AM for 7 days then STOP. with food calcium-vitamin D (Caltrate 600 with D 600 mg-400 intl units oral tablet) 1 tab(s) Oral two times a day with food with plenty of water omeprazole (omeprazole 20 mg oral delayed release capsule) 20 mg Oral once a day APAP/ASA/caffeine (Excedrin Migraine) 3 tab(s) Oral once as needed for Headache Attention: If you have any medications at home that are not on this list, DO NOT take them until youcontact your provider for clarification. Additional Information: Source: [facility] Document Id: [id number] Jodicellaneous - Riley Sanchez M.D. - 08/06/2012 11:59 AM CDT Return to Work Status Return to Work Status Entered On: 08/06/2012 12:00 CDT Performed On: 08/06/2012 11:59 CDT by RILEY SANCHEZ MD Return to Work Status Employer : [employer] Date/Time of Injury : 07/31/2012 0:00 CDT Work Injury : Yes Work Status : Return to work no restrictions Return to Work Start Date : 08/10/2012 CDT Follow Up Appointment Needed : As needed Work Status Comment : He needs to contact me if he needs work restriction. Follow Up Physician Name : RILEY Montalvo MD - 08/06/2012 11:59 CDT Source: [facility] Document Id: [id number] Miscellaneous - Conversion, Historical Provider Ser - 08/06/2012 11:20 AM CDT Ambulatory Vitals Height Weight Ambulatory Vitals Height Weight Entered On: 08/06/2012 11:21 CDT Performed On: 08/06/2012 11:20 CDT by CLEO MAJOR LPN Vitals/Ht/Wt Systolic Blood Pressure : 164mmHg (>HHI) Diastolic Blood Pressure : 94mmHg (>HHI) NIBP Mean : 117mmHg BP Location : Right upper extremity Blood Pressure Cuff Size : Thigh CLEO MAJOR LPN - 08/06/2012 11:20 CDT Source: [facility] POWER[facility]ART Document Id: [id number] Miscellaneous - Conversion, Historical Provider Ser - 08/06/2012 11:15 AM CDT Adult [employer] Intake/History Adult [employer] Intake/History Entered On: 08/06/2012 11:20 CDT Performed On: 08/06/2012 11:15 CDT by CLEO MAJOR LPN Intake Chief Complaint : Fell at work on 07-31-12 and his hand has been swollen. Temperature Core : 37.0DegC(Converted to: 98.6DegF) Peripheral Pulse Rate : 89/min Respiratory Rate : 20/min Systolic Blood Pressure : 190mmHg (>HHI) Diastolic Blood Pressure : 98mmHg (>HHI) NIBP Mean : 129mmHg BP Location : Right upper extremity Blood Pressure Cuff Size : Large SpO2 : 96% Oxygen Therapy : Room air Actual Weight : 105kg(Converted to: 231lb 8oz) Weight Source : Standing scale Dosing Weight Clinic : 105.00kg CLEO MAJOR LPN - 08/06/2012 11:15 CDT General Info Information Given By : Patient Languages : Mongolian CLEO MAJOR LPN - 08/06/2012 11:15 CDT Subjective Pain Symptoms : Yes CLEO MAJOR LPN - 08/06/2012 11:15 CDT Pain Pain Assessment Grid Pain 1 Location : Hand (Comment: Right hand and wrist. [CLEO MAJOR LPN - 08/06/2012 11:15 CDT] ) CLEO MAJOR LPN - 08/06/2012 11:15 CDT Dependent Habits Tobacco Use/Currently Using : Yes Exposure to Tobacco Smoke : Patient smokes Smoking Status : Current every day smoker CLEO MAJOR [facility] - 08/06/2012 11:15 CDT Tobacco Use Grid Type : Cigarettes Cigarette Use Packs/Day : 0.5 Last Use : today CLEO MAJOR [facility] - 08/06/2012 11:15 CDT Caffeine Use Grid Caffeine Use : Current Type : Coffee, Tea Frequency : Daily Amount : 2 cup coffee/2 tea daily CLEO MAJOR [facility] - 08/06/2012 11:15 CDT Recreational Drug Use Grid Drug Use : None CLEO MAJOR [facility] - 08/06/2012 11:15 CDT Allergy Allergies (Active) NKA Estimated Onset Date: Unspecified ; Created By: SARAI NIXON; Reaction Status: Active ; Category:Drug ; Substance: NKA ; Type: Allergy ; Updated By: SARAI NIXON; Reviewed Date: 08/06/2012 11:14 CDT Source: [facility] Document Id: [id number] documented in this encounter Plan of Treatment Upcoming Encounters Date Type Specialty Care Team Description 04/12/2022 Office Visit Cardiovascular Disease Simone Gooden AP RN, C.N.P. [address] [phone] (Wo rk) documented as of this encounter Procedures Procedure Name Priority Date/Time Associated Diagnosis Comme nts DX HAND RIGHT 3+ Routine 08/06/2012 11:33 AM Resu lts for this VIEWS CDT procedure are i n the results section. DX WRIST RIGHT 3+ Routine 08/06/2012 11:27 AM Res ults for this VIEWS CDT procedure are i n the results section. documented in this encounter Results DX Hand Right 3+ Views (08/06/2012 11:33 AM CDT) Anatomical Region Laterality Modality Upper Extremity, Hand Right Radiographic Imagi ng Specimen (Source) Anatomical Collection Method Collection Time Re ceived Time Location / / Volume Laterality 08/06/2012 11:33 AM CDT Addenda Addendum by Provider, Javid Samson 08/06/2012 11:33 AM CDT RAD^^^OW XR Hand Right 3 or more views 08/06/2012 11:33:00 Narrative 08/06/2012 11:50 AM CDT COMPARISON: None. HISTORY: 62 year old male with right rubio d pain and swelling after a fall. Findings: There is no acute right hand o sseous abnormality. Bone mineralization is within normal limits. The visualized joint spaces are preserved. Impression: No acute right hand osseous abnormality. Procedure Note Miguel Mancilla M.D. / ProviderNitesh M.D. - 09/20/2016 COMPARISON: None. HISTORY: 62 year old male with right rubio d pain and swelling after a fall. Findings: There is no acute right hand o sseous abnormality. Bone mineralization is within normal limits. The visualized joint spaces are preserved. Impression: No acute right hand osseous abnormality. Aithai See R.T.(R) IMG DIAGNOSTIC IMAGING PROCE DURES DX Wrist Right 3+ Views (08/06/2012 11:27 AM CDT) Anatomical Region Laterality Modality Upper Extremity, Wrist Right Radiographic Imag ing Specimen (Source) Anatomical Collection Method Collection Time Re ceived Time Location / / Volume Laterality 08/06/2012 11:27 AM CDT Addenda Addendum by ProviderMali M.D. o n 08/06/2012 11:27 AM CDT RAD^^^OW XR Wrist Right 3 or more views 08/06/2012 11:27:00 Narrative 08/06/2012 11:50 AM CDT Exam: ?XR Wrist Right 3 or more view s Clinical history: ??Painful swelling due to fall on 07/31/12. Comparison: None Findings: The distal radius and ulna are intact and aligned. There is no soft tissue swelling visualized. The carpals, metacarpals, and visualized phalanges are intact and well aligned. There is no cortical lucency to suggest fracture. Impression: No evidence for fracture. Procedure Note Juan Nunes M.D. / ProviderJaison M.D. - 09/20/2016 Exam: XR Wrist Right 3 or more views Clinical history: Painful swelling due t o fall on 07/31/12. Comparison: None Findings: The distal radius and ulna are intact and aligned. There is no soft tissue swelling visualized. The carpals, metacarpals, and visualized phalanges are intact and well aligned. There is no cortical lucency to suggest fracture. Impression: No evidence for fracture. Jay Anderson Jr., R.D.MBhaveshS. IMG DIAGNOSTIC IMAGI NG PROCEDURES documented in this encounter Visit Diagnoses Not on filedocumented in this encounter
--- OUTSIDE RECORDS SUMMARY | 2022-03-29 07:58 | XMS_ITS | Encounter Summary ---
:1950 Author Organization [facility] Address [address] [place] [address] Care Team Providers Name Role Phone Unavailable Primary Care Provider Unavailable Encounter Details Date Type Department Care Team Description 10/05/2012 Hospital Encounter HX [facility] FB Riley Jimenez M.D. [address] [facility], [facility] [address] [phone] Social History Tobacco Use Types Packs/Day [...] How often do you attend scientology or anglican services? 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 - 10/05/2012 9:57 AM CDT [id number] CHIEF COMPLAINT/REASON FOR VISIT 1-month followup. HISTORY OF PRESENT ILLNESS Mr. Salazar is a 62-year-old man who came in today for 1-month followup. I saw him on August 31, 2012 for hypertension. At that time his blood pressure was out of control. He has been taking lisinopril hydrochlorothiazide as prescribed. He monitors blood pressure at home. Last night his blood pressure was 118/78. There was no chest pain, short of breath, cough, sputum production. There was no orthopnea, paroxysmal nocturnal dyspnea palpitations. Patient continues to smoke cigarettes. He smokes 1/2 pack per day. He is not ready to quit yet. He went to [facility] emergency department on September 25, 2012 because of painful swelling of the right knee. Patient was given [place] for pain and he was advised to use crutches and knee immobilizer. He [facility] October [facility], 2012. He had aspiration of rightknee joint with injection of corticosteroid injection to the right knee. I do not have these recordsfor my review. Patient felt better after steroid injections. He missed his work last week. He went back to work on Friday and Friday half day only. According to patient Dr. Acuña told him there is no restriction. He has to be careful regarding weightbearing if there is pain. He needs to see Dr. Acuña again if there is recurrent swelling of the right knee. He wants to know whether he can see Dr. Acuña for shoulder pain. Explained to the patient that he can see Dr. Acuña if he develops shoulder pain in future. Currently he does not take [place]. It should be noted that he had arthritis, arthralgia in the past. He completed prednisone therapy for inflammatory arthritis. In the past we checked CCP antibody that was negative. CURRENT MEDICATIONS Reviewed and updated as per [...] is moist and midline. No oral lesions. HEART: No carotid bruit. No JVD. Regular rhythm. There is no S3, gallop, murmur or thrill. LUNGS: Normal respiratory effort. Clear to auscultation. Normal percussion. EXTREMITIES: Examination of the right knee he has some bruise on medial aspect of the right knee. There was no swelling, tenderness. There was no decreased range of motion. IMPRESSION/REPORT/PLAN 1. Hypertension. Blood pressure is controlled. He is stable from cardiac standpoint. He does not have side effects from lisinopril hydrochlorothiazide. Basic metabolic profile done on September 14, 2012 was unremarkable. He will continue current medications. He will monitor blood pressure regularly at home. 2. Painful swelling of the right knee, status post corticosteroid injection on October 01, 2012. He noticed significant improvement. He no longer has pain or swelling. He went back to work on Friday and Friday half day only. He would like to get return to work without restrictions. He was given return to work status. All of his questions were answered. Patient will sign record release to get the record from [facility] including lab results. Return to clinic in 5 weeks for annual physical exam, review medical problems. Riley Sanchez M.D./terri Electronically Signed By: RILEY SANCHEZ MD On: 10/10/2012 09:41 PM Modified by and Electronically Signed by: RILEY SANCHEZ MD On: 10/10/2012 09:41 PM Source: [facility] MHSDOLBEYNONRADSYS Document Id: [id number] documented in this encounter Miscellaneous Notes Miscellaneous - Riley Sanchez M.D. - 10/05/2012 10:25 AM CDT Ambulatory Patient Summary [address] [address] Visit Information Name: SEVEN SALAZAR [facility] Number: [id number] Current Date: 10/05/2012 10:25:56 Physicians Attending Provider: RILEY SANCHEZ MD Primary Care Provider: RILEY SANCHEZ MD Your Medications Here is a list of your medications. It is important to take your medications as directed. Use a pillbox or chart to help remind you to take your medications. Please let your doctor or nurse know if you have problems taking your medications. Medication/Strength Dose Route Frequency Indications/Special Instructions/Comments lisinopril-hydrochlorothiazide (lisinopril-hydrochlorothiazide 20 mg-12.5 mg oral tablet) See Instructions 2 tab(s) PO Daily in AM. Dose increased on 08/31/2012. / (Zestoretic) albuterol (albuterol 90 mcg/inh inhalation aerosol with adapter) 2 puff(s) Inhalation four times a day as needed for Shortness of breath / Wheezing ipratropium-albuterol (Combivent 18 mcg-103 mcg/inh inhalation aerosol with adapter) 2 puff(s) Inhalation four times a day (shake well before using) use with spacer chamber calcium-vitamin D (Caltrate 600 with D 600 [...] No Appointments found Your Goals/Additional instructions: Source: [facility] POWERCHART Document Id: [id number] Miscellaneous - Riley Sanchez M.D. - 10/05/2012 10:25 AM CDT Ambulatory Depart Summary [address] [address] Visit Information Name: SEVEN SALAZAR [facility] Number: [id number] Visit Date: 10/05/2012 10:25:55 Attending Provider: RILEY SANCHEZ MD Primary Care [...] medications. Medication/Strength Dose Route Frequency Indications/Special Instructions/Comments lisinopril-hydrochlorothiazide (lisinopril-hydrochlorothiazide 20 mg-12.5 mg oral tablet) See Instructions 2 tab(s) PO Daily in AM. Dose increased on 08/31/2012. / (Zestoretic) albuterol (albuterol 90 mcg/inh inhalation aerosol with adapter) 2 puff(s) Inhalation four times a day as needed for Shortness of breath / Wheezing ipratropium-albuterol (Combivent 18 mcg-103 mcg/inh inhalation aerosol with adapter) 2 puff(s) Inhalation four times a day (shake well before using) use with spacer chamber calcium-vitamin D (Caltrate 600 with D 600 mg-400 intl units oral tablet) 1 tab(s) Oral two times a day with food with plenty of water APAP/ASA/caffeine (Excedrin Migraine) 3 tab(s) Oral once as needed for Headache Attention: If you have any medications at home that are not on this list, DO NOT take them until youcontact your provider for clarification. Additional Information: Source: [facility] POWERCHART Document Id: [id number] Miscellaneous - Riley Sanchez M.D. - 10/05/2012 10:20 AM CDT Need record from [facility] (ED visit) & Dr. Acuña ([facility]) including lab Document Contains Addenda Addendum by CLEO MAJOR LPN on 05 October 2012 14:09:07 CDT From: CLEO MAJOR LPN To: RILEY SANCHEZ MD; Sent: 10/05/2012 14:09:07 CDT Subject: RE: Need record from [facility] (ED visit) & Dr. Acñua ([facility]) including lab I have called both places and they will fax the information to you. From: RILEY SANCHEZ MD To: CLEO MAJOR LPN; Sent: 10/05/2012 10:20:49 CDT Subject: Need record from [facility] (ED visit) & Dr. Acuña ([facility]) including lab Please get record from [facility] (ED visit on 09/25/2012) & Dr. Acuña ([facility] on 10/01/2012) including lab results. Source: [facility] Document Id: [id number] Mook - Riley Sacnhez M.D. - 10/05/2012 10:15 AM CDT Return to Work Status Return to Work Status Entered On: 10/05/2012 10:16 CDT Performed On: 10/05/2012 10:15 CDT by RILEY SANCHEZ MD Return to Work Status Employer : [employer] Work Injury : No Work Status : Return to work no restrictions Return to Work Start Date : 10/02/2012 CDT Restricted Work Start Date : 09/29/2012 CDT Restricted Work Stop Date : 10/01/2012 CDT Follow Up Appointment Needed : As needed Follow Up Physician Name : Dr. 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 Temperature Core : 36.8 DegC(Converted to: 98.2 DegF) Peripheral Pulse Rate : 85 /min Respiratory Rate : 24 /min (HI) Systolic Blood Pressure : 138 mmHg Diastolic Blood Pressure : 80 mmHg NIBP Mean : 99 mmHg BP Location : Left upper extremity Blood Pressure Cuff Size : Thigh SpO2 : 97 % Oxygen Therapy : Room air Actual Weight : 100 kg(Converted to: 220 lb 7 oz) Weight Source : Standing scale Dosing Weight Clinic : 100 kg CLEO MAJOR ANGIE STATON - 10/05/2012 10:02 CDT General Info Information Given By : Patient Languages : Slovak CLEO MAJOR ANGIE SHMEAR - 10/05/2012 10:02 CDT Subjective Pain Symptoms : No MORIAHCLEO ANGIE STATON - 10/05/2012 10:02 CDT Dependent Habits Tobacco Use/Currently Using : Yes Exposure to Tobacco Smoke : Patient smokes Smoking Status : Current every day smoker MORIAHCLEO ANGIE STATON - 10/05/2012 10:02 CDT Tobacco Use Grid Type : Cigarettes Cigarette Use Packs/Day : 0.5 Last Use : today CLEO MAJOR ANGIE STATON - 10/05/2012 10:02 CDT Caffeine Use Grid Caffeine Use : Current Type : Coffee, Tea Frequency : Daily Amount : 2 cup coffee/2 tea daily CLEO MAJOR ANGIE STATON - 10/05/2012 10:02 CDT Recreational Drug Use Grid Drug Use : None CLEO MAJOR ANGIE STATON - 10/05/2012 10:02 CDT [facility] Document Id: [id number] CDT!39 documented in this encounter Plan of Treatment Upcoming Encounters Date Type Specialty Care Team Description 04/12/2022 Office Visit Cardiovascular Disease Simone Gooden AP RN, C.N.P. [address] [phone] (Wo rk) documented as of this encounter Visit Diagnoses Not on filedocumented in this encounter
--- OUTSIDE RECORDS SUMMARY | 2022-03-29 07:58 | XMS_ITS | Encounter Summary ---
:1950 Author Organization [facility] Address [address] [place] [address] Care Team Providers Name Role Phone Unavailable Primary Care Provider Unavailable Encounter Details Date Type Department Care Team Description 01/28/2012 Hospital Encounter HX [facility] Riley Jimenez M.D. [address] [facility], [facility] [address] [phone] Social History Tobacco Use Types Packs/Day [...] How often do you attend mu-ism or jewish services? 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 - 01/28/2012 2:49 PM CDT [id number] CHIEF COMPLAINT/REASON FOR VISIT Arthritis flare-up. HISTORY OF PRESENT ILLNESS Mr. Salazar is a 61-year-old man who came in today for above complaints. He has degenerative joint disease with arthralgia. Lately his symptoms are getting worse. He has pain in the neck, shoulder and knee. He has been active a lot lately. He has to stand on the concrete several hours a day. There was no headache or tenderness over the temporal artery. He has these pains all the time. He does not haveblurred vision, double vision or loss of vision. There was no jaw pain. He does not have fever or chills. He does not notice skin rash. In the past he developed arthralgia following after intravesicle BCG therapy therapy. CURRENT MEDICATIONS Reviewed and updated as per [...] No facial rash, asymmetry or sinus tenderness. There was no tenderness over the temporal artery. EYES: PERRLA. EOMI. No pallor, icterus or [...] edema, infection or calf tenderness. IMPRESSION/REPORT/PLAN 1. Degenerative joint disease with arthralgias involving neck, shoulder and knee. Discussed with himabout further evaluation and management. Clinically, he does not have symptoms and signs suggestive of giant cell arteritis. It was decided to check a complete blood count, basic metabolic profile, sedimentation rate and C-reactive protein. After discussion, it was decided to treat empirically with prednisone. He will take 50 mg by mouth daily with food for 10 days. Advised him to come back and see me in one week for follow up. Riley Sanchez M.D./harvey Electronically Signed By: RILEY SANCHEZ MD On: 02/06/2012 02:14 PM Modified by and Electronically Signed by: RILEY SANCHEZ MD On: 02/06/2012 02:14 PM Source: [facility] MHSDOLBEYNONRADSYS Document Id: [id number] documented in this encounter Miscellaneous Notes Miscellaneous - Riley Sanchez M.D. - 01/30/2012 12:21 PM CDT Results Notification Document Contains Addenda Addendum by CLEO MAJOR LPN on 31 January 2012 08:59:22 CDT Results mailed to the pt. From: RILEY SANCHEZ MD To: CLEO MAJOR LPN, CASSANDRA C LPN Sent: 01/30/2012 12:21:58 CDT ! Show up: 01/30/2012 17:21:58 [facility] Subject: Results Notification Actions: Notify patient of results Source: [facility] POWERCHART Document Id: [id number] Miscellaneous - Riley Sanchez M.D. - 01/29/2012 8:48 AM CDT Results Notification Document Contains Addenda Addendum by CLEO MAJOR LPN on 29 January 2012 09:41:15 CDT Results mailed to the pt. From: RILEY SANCHEZ MD To: CLEO MAJOR LPN Sent: 01/29/2012 08:48:27 CDT ! Show up: 01/29/2012 13:48:27 [facility] Subject: Results Notification Actions: Notify patient of results Source: [facility] ExpertFlyerCHART Document Id: [id number] Electronically signed by Conversion, [facility] Radial Arm Saw Operator [id number] at 10/05/2016 2:52 PM CDT Miscellaneous - Riley Sanchez M.D. - 01/28/2012 4:43 PM CDT Results Notification Document Contains Addenda Addendum by CLEO MAJOR LPN on 29 January 2012 09:40:09 CDT Results mailed to the pt. From: RILEY SANCHEZ MD To: CLEO MAJOR LPN Sent: 01/28/2012 16:43:27 CDT ! Show up: 01/28/2012 21:43:27 [facility] Subject: Results Notification Actions: Notify patient of results Source: [facility] ExpertFlyerCHART Document Id: [id number] Electronically signed by Conversion, [facility] Radial Arm Saw Operator [id number] at 10/05/2016 2:52 PM CDT Miscellaneous - Riley Sanchez M.D. - 01/28/2012 3:47 PM CDT Ambulatory Patient Summary [address] [place] [address] Visit Information Name: SEVEN SALAZAR Current Date: 01/28/2012 15:47:01 Physicians Attending Provider: RILEY SANCHEZ MD Primary Care Provider: RILEY SANCHEZ MD Your Medications Here is a list of your medications. It is important to take your medications as directed. Use a pillbox or chart to help remind you to take your medications. Please let your doctor or nurse know if you have problems taking your medications. Medication/Strength Dose Route Frequency Indications/Special Instructions/Comments predniSONE (predniSONE 50 mg oral tablet) 50 mg Oral once a day for 10 Days with food omeprazole (omeprazole 20 mg oral delayed release capsule) 20 mg Oral once a day ipratropium-albuterol (Combivent 18 mcg-103 mcg/inh inhalation aerosol with adapter) 2 puff(s) Inhalation four times a day albuterol (albuterol 90 mcg/inh inhalation aerosol with adapter) 2 puff(s) Inhalation four times a day as needed for Shortness of breath / Wheezing lisinopril-hydrochlorothiazide (hydrochlorothiazide-lisinopril 25 mg-20 mg oral tablet) See Instructions 1.5 tab(s) PO Daily AM APAP/ASA/caffeine (Excedrin Migraine) 3 tab(s) Oral once [...] in mid antrum per EGD Active 11/26/2011 Your Upcoming Appointments Date Time Location Reason Provider 04/13/2012 11:00 [facility] 6 months follow up Jatinder Camejo MD Your Goals/Additional instructions: Source: [facility] POWERCHART Document Id: [id number] Miscellaneous - Riley Sanchez M.D. - 01/28/2012 3:47 PM CDT Ambulatory Depart Summary [address] [address] Visit Information Name: SEVEN SALAZAR Visit Date: 01/28/2012 15:47:01 Attending Provider: RILEY SANCHEZ MD Primary Care [...] medications. Medication/Strength Dose Route Frequency Indications/Special Instructions/Comments predniSONE (predniSONE 50 mg oral tablet) 50 mg Oral once a day for 10 Days with food omeprazole (omeprazole 20 mg oral delayed release capsule) 20 mg Oral once a day ipratropium-albuterol (Combivent 18 mcg-103 mcg/inh inhalation aerosol with adapter) 2 puff(s) Inhalation four times a day albuterol (albuterol 90 mcg/inh inhalation aerosol with adapter) 2 puff(s) Inhalation four times a day as needed for Shortness of breath / Wheezing lisinopril-hydrochlorothiazide (hydrochlorothiazide-lisinopril 25 mg-20 mg oral tablet) See Instructions 1.5 tab(s) PO Daily AM APAP/ASA/caffeine (Excedrin Migraine) 3 tab(s) Oral once as needed for Headache Attention: If you have any medications at home that are not on this list, DO NOT take them until youcontact your provider for clarification. Additional Information: [facility] Document Id: [id number] Miscellaneous - Riley Sanchez M.D. - 01/28/2012 3:44 PM CDT School or Work Excuse School or Work Excuse Entered On: 01/28/2012 15:45 CDT Performed On: 01/28/2012 15:44 CDT by RILEY SANCHEZ MD School or Work Excuse Date Patient Seen : 01/28/2012 CDT School or Work Restrictions : Other: Work excuse on 01/28/2012 & 01/29/2012. 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 Temperature Core : 36.8C(Converted to: 98.2DegF) Peripheral Pulse Rate : 88/min Respiratory Rate : 16/min Systolic Blood Pressure : 120mmHg Diastolic Blood Pressure : 70mmHg NIBP Mean : 87mmHg BP Location : Right upper extremity Blood Pressure Cuff Size : Large Actual Weight : 97kg(Converted to: 213lb 14oz) Weight Source : Standing scale Dosing Weight Clinic : 97.00kg CLEO MAJOR LPN - 01/28/2012 15:21 CDT Subjective Pain Symptoms : Yes CLEO MAJOR LPN - 01/28/2012 15:21 CDT Pain Pain Assessment Grid Pain 1 Location : Other: Knees , hips , shoulders. CLEO MAJOR LPN - 01/28/2012 15:21 CDT Dependent Habits Tobacco Use/Currently Using : Yes Exposure to Tobacco Smoke : Patient smokes Smoking Status : Current every day smoker CLEO MAJOR LPN - 01/28/2012 15:21 CDT Tobacco Use Grid Type : Cigarettes Cigarette Use Packs/Day : 0.5 Last Use : today CLEO MAJOR LPN - 01/28/2012 15:21 CDT Caffeine Use Grid Caffeine Use : Current Type : Coffee, Tea Frequency : Daily Amount : 2 cup/day Last Use : today CLEO MAJOR LPN - 01/28/2012 15:21 CDT Recreational Drug Use Grid Drug Use : None CLEO MAJOR LPN - 01/28/2012 15:21 CDT Allergy Allergies (Active) NKA Estimated Onset Date: Unspecified ; Created By: SARAI NIXON; Reaction Status: Active ; Category:Drug ; Substance: NKA ; Type: Allergy ; Updated By: SARAI NIXON; Reviewed Date: 01/28/2012 15:21 CDT Source: [facility] POWERCHART Document Id: [id number] documented in this encounter Plan of Treatment Upcoming Encounters Date Type Specialty Care Team Description 04/12/2022 Office Visit Cardiovascular Disease Simone Gooden AP RN, C.N.P. [address] [facility] [phone] (Wo rk) documented as of this encounter Procedures Procedure Name Priority Date/Time Associated Comments Diagnosis AUTOMATED Routine 01/28/2012 3:55 PM Results f or this DIFFERENTIAL, B CDT procedure ar e in the results section. SEDIMENTATION RATE, B Routine 01/28/2012 3:55 PM Results for this CDT procedure are i n the results section. CBC WITH DIFFERENTIAL, Routine 01/28/2012 3:55 PM Results for this B CDT procedure are i n the results section. C-REACTIVE PROTEIN Routine 01/28/2012 3:55 PM Res ults for this (CRP), S/P CDT procedure are i n the results section. BASIC METABOLIC PANEL, Routine 01/28/2012 3:55 PM Results for this S/P CDT procedure are i n the results section. documented in this encounter Results Automated Differential (01/28/2012 3:55 PM CDT) P athologist Signature Neutro % 57.0 34.0 - 67.9 POWERCHART Lymphocytes % 26.9 21.8 - 53.1 POWERCHART HX Irion % 11.4 5.3 - 12.2 POWERCHART HX Eos % 4.2 0.8 - 7.0 POWERCHART HX Baso % 0.5 0.2 - 1.2 POWERCHART Specimen Anatomical Collection Method Collection Time Receive d Time (Source) Location / / Volume Laterality Blood 01/28/2012 3:55 PM 2 3:55 CDT PM CDT Riley Sanchez M.D. LAB BLOOD ADD-ON Performing Organization Address City/State/ZIP Code Phon e Number POWERCHART (ABNORMAL) Sedimentation Rate (01/28/2012 3:55 PM CDT) Patholo gist Method Time Signature Sedimentation 26 (H) 0 - 22 POWERCHART Rate, B MMHR Specimen (Source) Anatomical Collection Method Collection Time Re ceived Time Location / / Volume Laterality Blood 01/28/2012 3:55 PM CDT Riley Padilla.Bonilla. LAB BLOOD ADD-ON Performing Organization Address City/[facility]/ZIP Code Phon e Number POWERCHART CBC with Differential (01/28/2012 3:55 PM CDT) athologist [facility] Leukocytes 8.2 3.5 - 10.5 POWERCHART X109L Erythrocytes 5.16 4.32 - POWERCHART 5.72 [id number] Hemoglobin 15.2 13.5 - POWERCHART 17.5 GDL Hematocrit 43.5 38.8 - POWERCHART 50.0 MCV 84.3 81.0 - POWERCHART 95.0 FL Platelet Count 317 150 - 450 POWERCHART X109L HX RDW 13.8 11.8 - POWERCHART 15.6 HXDifferential? Auto POWERCHART Specimen (Source) Anatomical Collection Method Collection Time Re ceived Time Location / / Volume Laterality Blood 01/28/2012 3:55 PM CDT Riley Padilla.Bonilla. LAB BLOOD ADD-ON Performing Organization Address City/[facility] Phon e Number POWERCHART (ABNORMAL) CRP (C-Reactive Protein) (01/28/2012 3:55 PM CDT) athologist [facility] C-Reactive 13.6 (H) <=8.0 MGL POWERCHART Protein (CRP), S Comment: Test Performed by: [place] [id number] Quality Assurance Tester: Cem cali III, M.D. Specimen (Source) Anatomical Collection Method Collection Time Re ceived Time Location / / Volume Laterality Blood 01/28/2012 3:55 PM CDT Riley Padilla.Bonilla. LAB BLOOD ADD-ON Performing Organization Address City/[facility] Phon e Number POWERCHART (ABNORMAL) BMP (Basic Metabolic Panel) (01/28/2012 3:55 PM CDT) athologist Signature BUN (Blood Urea 13 7 - 23 POWERCHART Nitrogen), S MGDL Creatinine 1.0 0.9 - 1.4 POWERCHART MGDL Glucose 92 POWERCHART Potassium, S 4.1 3.5 - 4.8 POWERCHART MMOLL Sodium, S 137 135 - 145 POWERCHART MMOLL Chloride, S 97 (L) 100 - 108 POWERCHART MMOLL CO2 Total 31 (H) 22 - 29 POWERCHART MMOLL Calcium, Total, 9.8 8.5 - 10.5 POWERCHART S MGDL BUN/Creatinine 13 POWERCHART Ratio HXeGFR (MDRD) >60 MLMIN POWERCHART eGFR >60 MLMIN POWERCHART Black/ Specimen (Source) Anatomical Collection Method Collection Time Re ceived Time Location / / Volume Laterality Blood 01/28/2012 3:55 PM CDT Riley Sanchez M.D. LAB BLOOD ADD-ON Performing Organization Address City/State/ZIP Code Phon e Number POWERCHART documented in this encounter Visit Diagnoses Not on filedocumented in this encounter
--- OUTSIDE RECORDS SUMMARY | 2022-03-29 07:58 | XMS_ITS | Encounter Summary ---
:1950 Author Organization [facility] Address [address] [place] [address] Care Team Providers Name Role Phone Unavailable Primary Care Provider Unavailable Encounter Details Date Type Department Care Team Description 12/03/2011 Hospital Encounter HX [facility] SURGEON Cristian [...] How often do you attend taoist or anglican services? 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 - 12/03/2011 12:00 AM CDT [id number] CHIEF COMPLAINT/REASON FOR VISIT Followup after upper GI endoscopy and colonoscopy. HISTORY OF PRESENT ILLNESS The patient comes in today to discuss the results of his upper GI endoscopy and colonoscopy which were performed on 11/26/2011 at [facility]. His colonoscopy showed some minimal left colon diverticulosis and was otherwise negative. His upper GI endoscopy showed he had some LA grade B esophagitis. He had erosion coming up about 1 centimeter in at least one spot and he had a 2 centimeter hiatal hernia. He had some moderate antritiswith diffuse erythema in patches and a 1 centimeter x 3 to 4 millimeter linear ulcer located in the mid antrum with mild duodenitis of the duodenal bulb. Helicobacter pylori was negative. Celiac sprue biopsy was also negative. I went over the results of these procedures with him today. IMPRESSION/REPORT/PLAN At the time of his upper GI endoscopy, he was put on some omeprazole because of the ulcer. I gave him 90 of those. He can continue omeprazole for his stomach symptoms. He says actually his stomach symptoms have improved since I put him on the omeprazole. He will be returning to Dr. Sanchez for his routine care. Time component: Approximately 15 minutes Ivan Vazquez M.D./addis Electronically Signed By: IVAN VAZQUEZ MD On: 12/03/2011 05:19 PM Source: [facility] MHSDOLBEYNONRADSYS Document Id: [id number] documented in this encounter Miscellaneous Notes Miscellaneous - Conversion, Historical Provider Ser - 12/03/2011 3:07 PM CDT Reminder Msg for colonoscopy From: CLEO MAJOR LPN To: RILEY SANCHEZ MD; CLEO MAJOR LPN; Sent: 12/03/2011 15:07:43 CDT Show up: 10/26/2021 15:07:00 CDT Subject: Reminder Msg for colonoscopy Due Date/Time: 11/25/2021 15:07:00 CDT Please Remember to: Call patient to schedule a colonoscopy. Last done 11-26-11. Rescope in [address] Vazquez. PATIENT: ( ) Call Patient ( ) Ask Patient to ( ) ( ) Call Relative ( ) Schedule Patient ( ) ( ) Call for Preform Machine Operator ( ) Follow up on Results ( ) Other: PROVIDER: ( ) Call Physician ( ) Call Pharmacist ( ) Call Lab ( ) Other: Special Instructions: Comments: Source: [facility] MedLink Document Id: [id number] Miscellaneous - Ivan Vazquez M.D. - 12/03/2011 2:17 PM CDT Ambulatory [place] [address] Visit Information Name: SEVEN SALAZAR Current Date: 12/03/2011 14:17:00 Physicians Attending Provider: IVAN VAZQUEZ MD Primary Care Provider: RILEY SANCHEZ MD Your Medications Here is a list of your medications. It is important to take your medications as directed. Use a pillbox or chart to help remind you to take your medications. Please let your doctor or nurse know if you have problems taking your medications. Medication/Strength Dose Route Frequency Indications/Special Instructions/Comments ipratropium-albuterol (Combivent 18 mcg-103 mcg/inh inhalation aerosol [...] Left Active Arthritis, Bilateral shoulder Active 11/11/2011 Your Upcoming Appointments Date Time Location Reason Provider 12/09/2011 15:50 [facility] Follow up after consult with Dr. Vazquez & Orthopedic Laura DEWEY, [place] 04/13/2012 11:00 [facility] 6 months follow up Jatinder Camejo MD Your Goals/Additional instructions: Source: [facility] POWERCHART Document Id: [id number] Miscellaneous - Ivan Vazquez M.D. - 12/03/2011 2:16 PM CDT Ambulatory Depart Summary [address] [address] Visit Information Name: SEVEN SALAZAR Visit Date: 12/03/2011 14:16:59 Attending Provider: IVAN VAZQUEZ MD Primary Care Provider: RILEY SANCHEZ MD SEVEN SALAZAR has been given the following list of medications: Your Medications It is important to take your medications as directed. Use a pill box or chart to help remind you to take your medications. Please let your doctor or nurse know if you have problems taking your medications. Medication/Strength Dose Route Frequency Indications/Special Instructions/Comments ipratropium-albuterol (Combivent 18 mcg-103 mcg/inh inhalation aerosol [...] your provider for clarification. Additional Information: Source: [facility] POWERCHART Document Id: [id number] Miscellaneous - Gemini Bryant, R.N. - 12/03/2011 1:37 PM CDT Adult Want Ad Receiver Intake/History Adult Want Ad Receiver Intake/History Entered On: 12/03/2011 13:38 CDT Performed On: 12/03/2011 13:37 CDT by GEMINI BRYANT Intake Chief Complaint : Results Temperature Core : 36.8C(Converted to: 98.2DegF) Peripheral Pulse Rate : 64/min Respiratory Rate : 16/min Heart Rhythm : Regular Systolic Blood Pressure : 108mmHg Diastolic Blood Pressure : 62mmHg NIBP Mean : 77mmHg BP Location : Right upper extremity Blood Pressure Cuff Size : Regular Actual Weight : 94.4kg(Converted to: 208lb 2oz) Weight Source : Standing scale Dosing Weight Clinic : 94.40kg GEMINI BRYNAT - 12/03/2011 13:37 CDT Subjective Pain Symptoms : No GEMINI BRYANT - 12/03/2011 13:37 CDT Dependent Habits Tobacco Use/Currently Using : Yes Exposure to Tobacco Smoke : Patient smokes Smoking Status : Current every day smoker GEMINI BRYANT - 12/03/2011 13:37 CDT Tobacco Use Grid Type : Cigarettes Cigarette Use Packs/Day : 0.5 Last Use : today GEMINI BRYANT - 12/03/2011 13:37 CDT Caffeine Use Grid Caffeine Use : Current Type : Coffee, Tea Frequency : Daily Amount : 2 cup/day Last Use : today GEMINI BRYANT - 12/03/2011 13:37 CDT Recreational Drug Use Grid Drug Use : None GEMINI BRYANT - 12/03/2011 13:37 CDT Allergy Allergies (Active) NKA Estimated Onset Date: Unspecified ; Created By: SARAI NIXON; Reaction Status: Active ; Category:Drug ; Substance: NKA ; Type: Allergy ; Updated By: SARAI NIXON; Reviewed Date: 12/03/2011 13:37 CDT Source: [facility] POWERCHART Document Id: [id number] documented in this encounter Plan of Treatment Upcoming Encounters Date Type Specialty Care Team Description 04/12/2022 Office Visit Cardiovascular Disease Simone Gooden AP RN, C.N.P. [address] [phone] (Wo rk) documented as of this encounter Visit Diagnoses Not on filedocumented in this encounter
--- OUTSIDE RECORDS SUMMARY | 2022-03-29 07:58 | XMS_ITS | Encounter Summary ---
:1950 Author Organization [facility] Address [address] [place] [address] Care Team Providers Name Role Phone Unavailable Primary Care Provider Unavailable Encounter Details Date Type Department Care Team Description 02/04/2012 Hospital Encounter HX [facility] FB Riley Jimenez M.D. 15[address] [facility], [facility] [address] [phone] Social History Tobacco Use Types Packs/Day [...] How often do you attend voodoo or orthodox services? 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 - 02/04/2012 1:18 PM CDT [id number] CHIEF COMPLAINT/REASON FOR VISIT Followup. HISTORY OF PRESENT ILLNESS Mr. Salazar is a 61-year-old man who came in today for followup. I saw him on January 28, 2012 for arthritis flare-up associated with arthralgia involving his neck, shoulders and knees. He was given prednisone 50 mg by mouth daily. Advised him to come and see me today. After taking prednisone, he noticed significant improvement in arthritis and arthralgia. He had blood tests on January 28, 2012. Ireviewed blood test results with him. Basic metabolic profile was unremarkable. Complete blood countwas normal. Sedimentation rate was slightly high at 26. C-reactive protein was 13.6. He does not have headache. There is no pain over the temporal artery. He does not have blurred vision, double vision, loss of vision, or jaw pain. He was referred to [facility] in [place] for further evaluation management of similar problems in the past. Patient could not go to see a specialist because of billing issues. Discussed with him about further evaluation and management. Probably he may have polymyalgia rheumatica. It was decided to continue a low dose of prednisone and then we will gradually taper off depending on his symptoms and inflammatory markers. I reviewed side effects of long-term prednisone therapy with him including but not limited to osteoporosis, stomach upset, GI bleeding, and infection.We need to closely monitor for these symptoms. Advised him to make sure his daily calcium and vitamin D intake are adequate. CURRENT MEDICATIONS Reviewed and updated as per [facility] electronic medical record. ALLERGIES Reviewed as per [facility] electronic medical record. SYSTEMS REVIEW As per history of present illness. Other systems reviewed and they are negative. PAST MEDICAL/SURGICAL HISTORY Reviewed as per [facility] electronic medical record. PREVENTIVE SERVICES Reviewed as per [facility] electronic medical record. VITAL SIGNS Reviewed as per [facility] electronic medical record. PHYSICAL EXAMINATION GENERAL: Patient is sitting. No distress. Able to talk without interruption. HEAD: No facial rash, asymmetry or sinus tenderness. EYES: PERRLA. EOMI. No pallor, icterus or conjunctivitis. ENT: No nasal congestion, discharge or bleeding. There is no ear infection or discharge. No mastoid tenderness. Tongue is moist and midline. No oral lesions. IMPRESSION/ REPORT/ PLAN 1. Possible polymyalgia rheumatica. He has arthritis and arthralgia involving his neck, shoulders and knees. He was noted to have a slightly elevated sedimentation rate and C-reactive protein. These symptoms have improved after prednisone therapy. After discussion it was decided to continue prednisone. He will take 20 mg by mouth daily in the morning. We will gradually taper off prednisone depending on his symptoms and inflammatory markers. I reviewed side effects from long-term prednisone therapy. He needs to make sure his calcium and vitamin D intake are adequate. Patient agreed with plan. We will repeat complete blood count, basic metabolic profile, sedimentation rate and C-reactive protein in 1 month. 2. Hypertension. His blood pressure is slightly high today. We need to monitor blood pressure on subsequent visits. It is better to keep blood pressure less than 130/80. With prednisone therapy his blood pressure will be high because of salt and water retention. He should watch sodium intake. He will continue lisinopril and hydrochlorothiazide. 3. Immunization. He was given influenza immunization today. All of his questions were answered. He may return to work with no restrictions on February 05, 2012. Return to clinic in 1 month for followup. He needs the following tests before his next appointment: Complete blood count, basic metabolic profile, C-reactive protein and sedimentation rate. Time component: Greater than 25 minutes, more than half of the time for counseling, coordination of care, reviewing test results and answering his questions. Riley Sanchez M.D./addis Electronically Signed By: RILEY SANCHEZ MD On: 02/13/2012 05:23 PM Modified by and Electronically Signed by: RILEY SANCHEZ MD On: 02/13/2012 05:23 PM Source: [facility] MHSDOLBEYNONRADSYS Document Id: [id number] documented in this encounter Miscellaneous Notes Miscellaneous - Riley Sanchez M.D. - 02/04/2012 2:03 PM CDT Return to Work Status Return to Work Status Entered On: 02/04/2012 14:04 CDT Performed On: 02/04/2012 14:03 CDT by RILEY SANCHEZ MD Return to Work Status Employer : [employer] Work Injury : No Work Status : Return to work no restrictions Return to Work Start Date : 02/05/2012 CDT Follow Up Appointment Needed : As needed Follow Up Physician Name : RILEY Montalvo MD - 02/04/2012 14:03 CDT Source: [facility] Apos Therapy Document Id: [id number] Miscellaneous - Riley Sanchez M.D. - 02/04/2012 1:59 PM CDT Ambulatory Patient Summary [address] [address] Visit Information Name: SEVEN SALAZAR Current Date: 02/04/2012 13:59:34 Physicians Attending Provider: RILEY SANCHEZ MD Primary Care Provider: RILEY SANCHEZ MD Your Medications Here is a list of your medications. It is important to take your medications as directed. Use a pillbox or chart to help remind you to take your medications. Please let your doctor or nurse know if you have problems taking your medications. Medication/Strength Dose Route Frequency Indications/Special Instructions/Comments calcium-vitamin D (Caltrate 600 with D 600 mg-400 intl units oral tablet) 1 tab(s) Oral two times a day with food with plenty of water predniSONE (predniSONE 20 mg oral tablet) 20 mg Oral once a day (in the morning) with food predniSONE (predniSONE 50 mg oral tablet) 50 [...] EGD Active 11/26/2011 Polymyalgia Rheumatica Active 02/04/2012 Your Upcoming Appointments Date Time Location Reason Provider 04/13/2012 11:00 [facility] 6 months follow up Jatinder Camejo MD Your Goals/Additional instructions: Source: [facility] POWERCHART Document Id: [id number] Miscellaneous - Riley Sanchez M.D. - 02/04/2012 1:59 PM CDT Ambulatory Depart Summary [address] [address] Visit Information Name: SEVEN SALAZAR Visit Date: 02/04/2012 13:59:33 Attending Provider: RILEY SANCHEZ MD Primary Care [...] medications. Medication/Strength Dose Route Frequency Indications/Special Instructions/Comments calcium-vitamin D (Caltrate 600 with D 600 mg-400 intl units oral tablet) 1 tab(s) Oral two times a day with food with plenty of water predniSONE (predniSONE 20 mg oral tablet) 20 mg Oral once a day (in the morning) with food predniSONE (predniSONE 50 mg oral tablet) 50 [...] your provider for clarification. Additional Information: Source: [facility] Apos Therapy Document Id: [id number] Miscellaneous - Conversion, Historical Provider Ser - 02/04/2012 1:28 PM CDT Ambulatory Vitals Height Weight Ambulatory Vitals Height Weight Entered On: 02/04/2012 13:29 CDT Performed On: 02/04/2012 13:28 CDT by BARB GILL LPN Vitals/Ht/Wt Systolic Blood Pressure : 140mmHg Diastolic Blood Pressure : 82mmHg NIBP Mean : 101mmHg BP Location : Left upper extremity Blood Pressure Cuff Size : Large BARB GILL LPN - 02/04/2012 13:28 CDT Source: [facility] Apos Therapy Document Id: [id number] Miscellaneous - Conversion, Historical Provider Ser - 02/04/2012 1:25 PM CDT Adult Dewaterer Operator Intake/History Adult Dewaterer Operator Intake/History Entered On: 02/04/2012 13:28 CDT Performed On: 02/04/2012 13:25 CDT by BARB GILL LPN Intake Chief Complaint : follow up djd Temperature Core : 37.2C(Converted to: 99.0DegF) Peripheral Pulse Rate : 76/min Respiratory Rate : 18/min Heart Rhythm : Regular Systolic Blood Pressure : 142mmHg (HI) Diastolic Blood Pressure : 82mmHg NIBP Mean : 102mmHg BP Location : Left upper extremity Blood Pressure Cuff Size : Large Actual Weight : 100kg(Converted to: 220lb 7oz) Weight Source : Standing scale Dosing Weight Clinic : 100.00kg BARB GILL LPN - 02/04/2012 13:25 CDT Subjective Pain Symptoms : No BARB GILL LPN - 02/04/2012 13:25 CDT Dependent Habits Tobacco Use/Currently Using : Yes Tobacco Use/Advised to Quit : Yes Exposure to Tobacco Smoke : Patient smokes Smoking Status : Current every day smoker BARB GILL [facility] 02/04/2012 13:25 CDT Tobacco Use Grid Type : Cigarettes Cigarette Use Packs/Day : 0.5 Last Use : today BARB GILL [facility] - 02/04/2012 13:25 CDT Caffeine Use Grid Caffeine Use : Current Type : Coffee, Tea Frequency : Daily Amount : 2 cup/day Last Use : today BARB GILL [facility] - 02/04/2012 13:25 CDT Recreational Drug Use Grid Drug Use : None BARB GILL [facility] 02/04/2012 13:25 CDT Allergy Allergies (Active) NKA Estimated Onset Date: Unspecified ; Created By: SARAI NIXON; Reaction Status: Active ; Category:Drug ; Substance: NKA ; Type: Allergy ; Updated By: SARAI NIXON; Reviewed Date: 02/04/2012 13:24 CDT Source: [facility] POWERCHART Document Id: [id number] documented in this encounter Plan of Treatment Upcoming Encounters Date Type Specialty Care Team Description 04/12/2022 Office Visit Cardiovascular Disease Simone Gooden AP RN, C.N.P. [address] [phone] (Wo rk) documented as of this encounter Visit Diagnoses Not on filedocumented in this encounter
--- OUTSIDE RECORDS SUMMARY | 2022-03-29 07:58 | XMS_ITS | Encounter Summary ---
:1950 Author Organization [facility] Address [address] [place] [address] Care Team Providers Name Role Phone Unavailable Primary Care Provider Unavailable Encounter Details Date Type Department Care Team Description 08/27/2012 Hospital Encounter HX [facility] FB LAB Riley Sanchez M.D. 1518 [facility], [facility] [address] [phone] Social History Tobacco Use Types Packs/Day [...] How often do you attend episcopal or scientology services? 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 - 08/29/2012 3:42 PM CDT Custom Result Letter Document Contains Addenda Addendum by CLEO MAJOR LPN on 31 August 2012 10:58 CDT Seven has an appt. today and will give to him then. Modified by and Electronically Signed by: CLEO MAJOR LPN On: 08/31/2012 10:58 AM 29 August 2012 SEVEN SALAZAR [address] [facility] [id number] Dear SEVEN SALAZAR, Electrolytes, kidney function and blood count are normal. No more high white blood cell count. Sed rate is just above normal range. Please follow up with us as we discussed during your visit or sooner if you have any concerns. If you have questions or concerns, please do not hesitate to call our office. Result Name Current Result Normal Range Sodium Lvl (mmol/L) 144 08/27/2012 135 - 145 Potassium Lvl (mmol/L) 4.0 08/27/2012 3.5 - 4.8 Chloride (mmol/L) 102 08/27/2012 100 - 108 CO2 (mmol/L) (H) 31 08/27/2012 22 - 29 Glucose Lvl 105 08/27/2012 Creatinine (mg/dL) 0.9 08/27/2012 0.9 - 1.4 EGFR (MDRD) (mL/min) >60 08/27/2012 EGFR (MDRD) (mL/min) >60 08/27/2012 BUN (mg/dL) 18 08/27/2012 7 - 23 Calcium Lvl (mg/dL) 9.8 08/27/2012 8.5 - 10.5 Hgb (g/dL) 15.3 08/27/2012 13.5 - 17.5 Hct (%) 43.1 08/27/2012 38.8 - 50.0 WBC (x10(9)/L) 7.7 08/27/2012 3.5 - 10.5 RBC (x10(12)/L) 5.22 08/27/2012 4.32 - 5.72 MCV (fL) 82.6 08/27/2012 81.0 - 95.0 RDW (%) 14.4 08/27/2012 11.8 - 15.6 Platelet (x10(9)/L) 283 08/27/2012 150 - 450 Neutro % (%) 53.3 08/27/2012 34.0 - 67.9 Lymph % (%) 28.8 08/27/2012 21.8 - 53.1 [place] % (%) 11.3 08/27/2012 5.3 - 12.2 Eos % (%) 6.1 08/27/2012 0.8 - 7.0 Baso % (%) 00 0.5 08/27/2012 0.2 - 1.2 Neutro Absolute (10(9)/L) 4.11 08/27/2012 1.70 - 7.00 Lymph Absolute (x10(9)/L) 2.22 08/27/2012 0.90 - 2.90 [place] Absolute (x10(9)/L) 0.87 08/27/2012 0.30 - 0.90 Eos Absolute (x10(9)/L) 0.47 08/27/2012 0.05 - 0.50 Baso Absolute (x10(9)/L) 0.04 08/27/2012 0.00 - 0.30 Differential? Auto 08/27/2012 Sed Rate (mm/hr) (H) 24 08/27/2012 0 - 22 Sincerely, RILEY SANCHEZ [address], [place] [id number] Electronic Signature Electronically Signed By: RILEY SANCHEZ MD On: 29 August 2012 This document has images extracted. Source: [facility] POWERCHART Document Id: [id number] Electronically signed by Rivka [facility] Customer Operations Intern [id number] at 10/02/2016 9:11 AM CDT documented in this encounter Plan of Treatment Upcoming Encounters Date Type Specialty Care Team Description 04/12/2022 Office Visit Cardiovascular Disease Simone Gooden AP RN, C.N.P. [address] [phone] (Wo rk) documented as of this encounter Procedures Procedure Name Priority Date/Time Associated Comments Diagnosis AUTOMATED Routine 08/27/2012 7:08 AM Results f or this DIFFERENTIAL, B CDT procedure ar e in the results section. SEDIMENTATION RATE, B Routine 08/27/2012 7:08 AM Results for this CDT procedure are i n the results section. CBC WITH DIFFERENTIAL, Routine 08/27/2012 7:08 AM Results for this B CDT procedure are i n the results section. BASIC METABOLIC PANEL, Routine 08/27/2012 7:08 AM Results for this S/P CDT procedure are i n the results section. documented in this encounter Results Automated Differential (08/27/2012 7:08 AM CDT) P athologist Signature Neutro % 53.3 34.0 - POWERCHART 67.9 Lymphocytes % 28.8 21.8 - POWERCHART 53.1 HX [place] % 11.3 5.3 - 12.2 POWERCHART HX Eos % 6.1 0.8 - 7.0 POWERCHART HX Baso % 0.5 0.2 - 1.2 POWERCHART Absolute 4.11 1.70 - POWERCHART Neutrophils 7.00 109L Lymphocytes 2.22 0.90 - POWERCHART 2.90 X109L Monocytes 0.87 0.30 - POWERCHART 0.90 X109L Eosinophils 0.47 0.05 - POWERCHART 0.50 X109L Absolute 0.04 0.00 - POWERCHART Basophil 0.30 X109L Specimen Anatomical Collection Method Collection Time Receive d Time (Source) Location / / Volume Laterality Blood 08/27/2012 7:08 AM 3 7:08 CDT AM CDT [facility].[place]. LAB BLOOD ADD-ON Performing Organization Address City/[facility] Phon e Number POWERCHART (ABNORMAL) Sedimentation Rate (08/27/2012 7:08 AM CDT) [facility] gist Method Time Signature Sedimentation 24 (H) 0 - 22 POWERCHART Rate, B MMHR Specimen (Source) Anatomical Collection Method Collection Time Re ceived Time Location / / Volume Laterality Blood 08/27/2012 7:08 AM CDT [facility] M.[place]. LAB BLOOD ADD-ON Performing Organization Address City/[facility] Phon e Number POWERCHART CBC with Differential (08/27/2012 7:08 AM CDT) P athologist Signature Leukocytes 7.7 3.5 - 10.5 POWERCHART X109L Erythrocytes 5.22 4.32 - POWERCHART 5.72 [id number] Hemoglobin 15.3 13.5 - POWERCHART 17.5 GDL Hematocrit 43.1 38.8 - POWERCHART 50.0 MCV 82.6 81.0 - POWERCHART 95.0 FL Platelet Count 283 150 - 450 POWERCHART X109L HX RDW 14.4 11.8 - POWERCHART 15.6 HXDifferential? Auto POWERCHART Specimen (Source) Anatomical Collection Method Collection Time Re ceived Time Location / / Volume Laterality Blood 08/27/2012 7:08 AM CDT Riley Sanchez M.D. LAB BLOOD ADD-ON Performing Organization Address City/State/ZIP Code Phon e Number POWERCHART (ABNORMAL) BMP (Basic Metabolic Panel) (08/27/2012 7:08 AM CDT) P athologist Signature BUN (Blood Urea 18 7 - 23 POWERCHART Nitrogen), S MGDL Creatinine 0.9 0.9 - 1.4 POWERCHART MGDL Glucose 105 POWERCHART Potassium, S 4.0 3.5 - 4.8 POWERCHART MMOLL Sodium, S 144 135 - 145 POWERCHART MMOLL Chloride, S 102 100 - 108 POWERCHART MMOLL CO2 Total 31 (H) 22 - 29 POWERCHART MMOLL Calcium, Total, 9.8 8.5 - 10.5 POWERCHART S MGDL HXeGFR (MDRD) >60 MLMIN POWERCHART eGFR >60 MLMIN POWERCHART Black/ Specimen (Source) Anatomical Collection Method Collection Time Re ceived Time Location / / Volume Laterality Blood 08/27/2012 7:08 AM CDT Riley Sanchez M.D. LAB BLOOD ADD-ON Performing Organization Address City/State/ZIP Code Phon e Number POWERCHART documented in this encounter Visit Diagnoses Not on filedocumented in this encounter
--- OUTSIDE RECORDS SUMMARY | 2022-03-29 07:58 | XMS_ITS | Encounter Summary ---
:1950 Author Organization [facility] Address [address] [place] [address] Care Team Providers Name Role Phone Unavailable Primary Care Provider Unavailable Encounter Details Date Type Department Care Team Description 12/24/2011 Hospital Encounter HX [facility] Riley Jimenez M.D. [address] [facility], [facility] [address] [phone] Social History Tobacco Use Types Packs/Day [...] How often do you attend gnosticist or druze services? 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 - 12/24/2011 3:57 PM CDT [id number] CHIEF COMPLAINT/REASON FOR VISIT 1. Follow up. HISTORY OF PRESENT ILLNESS Mr. Salazar is a 61-year-old man who came in today for follow up. I saw him on November 22, 2011. He had esophagogastroduodenoscopy with colonoscopy at [facility] on November 26, 2011. Patient had stomach flu yesterday after eating fish and eggs. It is just loose stools. There was no pain. These symptoms went away. There was no nausea, vomiting, fever or chills. He is doing fine. There was no syncopal or near-syncopal episode. He no longer has pain in the neck.He has been going to yoga and it is seemed to help. I reviewed endoscopic evaluation. Colonoscopy showed minimal left colon diverticulosis. Esophagogastroduodenoscopy showed esophagitis with one erosion. He also has a 2 cm hiatal hernia, moderate antritis with erythema and lineal ulcer. He also has duodenitis. Pathology report was reviewed. He has reactive gastropathy. There was no evidence of dysplasia. No reflux or eosinophilic esophagitis. No H. pylori. Patient continues to smoke tobacco. Advised him to quit smoking. He should stay away from anti-inflammatory medications. He should not drink alcohol. According to Dr. Lieberman, he needs to take omeprazole. CURRENT MEDICATIONS Reviewed and updated as per the EMR. ALLERGIES Reviewed and updated as per the EMR. SYSTEMS REVIEW As per the history of present illness. Other systems are reviewed and are negative. PAST MEDICAL/SURGICAL HISTORY Reviewed and updated as per the EMR. PREVENTIVE SERVICES Reviewed and updated as per the EMR. VITAL SIGNS Reviewed as per the EMR. PHYSICAL EXAM GENERAL: Patient is sitting. No distress. Able to talk without interruption. HEAD: No facial rash, asymmetry or sinus tenderness. EYES: PERRLA. EOMI. No pallor, icterus or conjunctivitis. ENT: No nasal congestion, discharge or bleeding. There is no ear infection or discharge. No mastoid tenderness. Tongue is moist and midline. No oral lesions. IMPRESSION/REPORT/PLAN 1. Gastroesophageal reflux disease, esophagitis, and 2 cm hiatal hernia. I reviewed esophagogastroduodenoscopy report. He also has duodenitis and antritis with lineal ulcer. He needs to continue omeprazole. Discussed with him about anti-reflux measures. Strongly encouraged him to quit smoking. He should not take [id number]-[id number] NSAIDs. He should stay away from caffeine products and alcohol. 2. Hypertension. His blood pressure was high on arrival. Repeat blood pressure was 138/70. He will continue lisinopril/hydrochlorothiazide 25 mg/20 mg 1-1/2 tablets by mouth daily. Better to keep bloodpressure less than 130/80. Again, he needs to quit smoking. 3. Neck pain. It is improved. He has been going to yoga. 4. Work excuse. He was given work excuse for today. He may return to work tomorrow. All of his questions were answered. Return to clinic as needed. Riley Sanchez M.D./harvey Electronically Signed By: RILEY SANCHEZ MD On: 01/26/2012 05:34 PM Modified by and Electronically Signed by: RILEY SANCHEZ MD On: 01/26/2012 05:34 PM Source: [facility] MHSDOLBEYNONRADSYS Document Id: [id number] documented in this encounter Miscellaneous Notes Miscellaneous - Riley Sanchez M.D. - 12/24/2011 4:34 PM CDT Ambulatory Patient Summary [address] [address] Visit Information Name: SEVEN SALAZAR Current Date: 12/24/2011 16:34:00 Physicians Attending Provider: RILEY SANCHEZ MD Primary Care Provider: RILEY SANCHEZ MD Your Medications Here is a list of your medications. It is important to take your medications as directed. Use a pillbox or chart to help remind you to take your medications. Please let your doctor or nurse know if you have problems taking your medications. Medication/Strength Dose Route Frequency Indications/Special Instructions/Comments omeprazole (omeprazole 20 mg oral delayed release [...] Hiatal hernia, 2 cm Active Diverticulosis* Active Your Upcoming Appointments Date Time Location Reason Provider 04/13/2012 11:00 [facility] 6 months follow up Jatinder Camejo MD Your Goals/Additional instructions: Source: [facility] POWERCHART Document Id: [id number] Miscellaneous - Riley Sanchez M.D. - 12/24/2011 4:34 PM CDT Ambulatory Depart Summary [address] [address] Visit Information Name: SEVEN SALAZAR Visit Date: 12/24/2011 16:33:59 Attending Provider: RILEY SANCHEZ MD Primary Care [...] medications. Medication/Strength Dose Route Frequency Indications/Special Instructions/Comments omeprazole (omeprazole 20 mg oral delayed release [...] clarification. Additional Information: Source: [facility] [employer] Document Id: [id number] Miscellaneous - Riley Sanchez M.D. - 12/24/2011 4:32 PM CDT School or Work Excuse School or Work Excuse Entered On: 12/24/2011 16:33 CDT Performed On: 12/24/2011 16:32 CDT by RILEY SANCHEZ MD School or Work Excuse Date Patient Seen : 12/24/2011 CDT School or Work Restrictions : Other: Work Excuse today. Date of Return to School/Work Without Restrictions : 12/25/2011 CDT Comment : Return to work on 12/25/2011. RILEY SANCHEZ MD - 12/24/2011 16:32 CDT Source: [employer] Document Id: [id number] Jodicelljen - Riley Sanchez M.D. - 12/24/2011 4:26 PM CDT Ambulatory Vitals Height Weight Ambulatory Vitals Height Weight Entered On: 12/24/2011 16:27 CDT Performed On: 12/24/2011 16:26 CDT by RILEY SANCHEZ MD Vitals/Ht/Wt Systolic Blood Pressure : 138mmHg Diastolic Blood Pressure : 70mmHg NIBP Mean : 93mmHg BP Location : Right upper extremity Blood Pressure Cuff Size : Large RILEY SANCHEZ MD - 12/24/2011 16:26 CDT Source: [employer] Document Id: [id number] Miscellaneous - Rivka, Historical Provider Ser - 12/24/2011 4:12 PM CDT Ambulatory Vitals Height Weight Ambulatory Vitals Height Weight Entered On: 12/24/2011 16:13 CDT Performed On: 12/24/2011 16:12 CDT by BARB GILL LPN Vitals/Ht/Wt Systolic Blood Pressure : 154mmHg (HI) Diastolic Blood Pressure : 84mmHg NIBP Mean : 107mmHg BP Location : Right upper extremity Blood Pressure Cuff Size : Large BARB GILL LPN - 12/24/2011 16:12 CDT [facility] Document Id: [id number] Miscellaneous - Conversion, Historical Provider Ser - 12/24/2011 4:09 PM CDT 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 Intake/History Entered On: 12/24/2011 16:12 CDT Performed On: 12/24/2011 16:09 CDT by BARB GILL LPN Intake Chief Complaint : follow up Temperature Core : 37.5C(Converted to: 99.5DegF) Peripheral Pulse Rate : 80/min Respiratory Rate : 16/min Heart Rhythm : Regular Systolic Blood Pressure : 152mmHg (HI) Diastolic Blood Pressure : 90mmHg (HI) NIBP Mean : 111mmHg BP Location : Right upper extremity Blood Pressure Cuff Size : Large Actual Weight : 95kg(Converted to: 209lb 7oz) Dosing Weight Clinic : 95.00kg BARB GILL LPN - 12/24/2011 16:09 CDT Subjective Pain Symptoms : No BARB GILL LPN - 12/24/2011 16:09 CDT Dependent Habits Tobacco Use/Currently Using : Yes Tobacco Use/Advised to Quit : Yes Exposure to Tobacco Smoke : Patient smokes Smoking Status : Former smoker BARB GILL LPN - 12/24/2011 16:09 CDT Tobacco Use Grid Type : Cigarettes Cigarette Use Packs/Day : 0.5 Last Use : today BARB GILL LPN - 12/24/2011 16:09 CDT Caffeine Use Grid Caffeine Use : Current Type : Coffee, Tea Frequency : Daily Amount : 2 cup/day Last Use : today BARB GILL LPN - 12/24/2011 16:09 CDT Recreational Drug Use Grid Drug Use : None BARB GILL LPN - 12/24/2011 16:09 CDT Allergy Allergies (Active) NKA Estimated Onset Date: Unspecified ; Created By: SARAI NIXON; Reaction Status: Active ; Category:Drug ; Substance: NKA ; Type: Allergy ; Updated By: SARAI NIXON; Reviewed Date: 12/24/2011 16:06 CDT Source: [facility] POWERCHART Document Id: [id number] documented in this encounter Plan of Treatment Upcoming Encounters Date Type Specialty Care Team Description 04/12/2022 Office Visit Cardiovascular Disease Simone Gooden AP RN, C.N.P. [address] [phone] (Wo rk) documented as of this encounter Visit Diagnoses Not on filedocumented in this encounter
--- OUTSIDE RECORDS SUMMARY | 2022-03-29 07:58 | XMS_ITS | Encounter Summary ---
:1950 Author Organization [facility] Address [address] [place] [address] Care Team Providers Name Role Phone Unavailable Primary Care Provider Unavailable Encounter Details Date Type Department Care Team Description 08/31/2012 Hospital Encounter HX [facility] Riley Jimenez M.D. [address] [facility], [facility] [address] [phone] Social History Tobacco Use Types Packs/Day [...] How often do you attend rastafari or gnosticist services? 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 - 08/31/2012 2:36 PM CDT [id number] CHIEF COMPLAINT/REASON FOR VISIT 1-month follow up HISTORY OF PRESENT ILLNESS Mr. Salazar is a 62-year-old man who came in today for followup. He has hypertension and polymyalgia rheumatica. He does not tolerate prednisone. Because of that, patient was advised to cut back prednisone gradually. He does not have headache, dizziness, lightheadedness, pain over the temporal artery or jaw pain. There was no significant neck pain, stiffness.. He has hypertension. He denies eating fast food or microwave dinner. There was no chest pain, short of breath, dizziness, lightheadedness. He has been taking medication regularly. Currently, he takes lisinopril and hydrochlorothiazide. There was no side effects. He had leukocytosis while he was taking prednisone. He had blood test last week August 27, 2012. I reviewed blood test results with him. Basic metabolic profile unremarkable. Complete blood count was normal. Sedimentation rate was slightly high at 24.. When I saw him last time he was noted to have swollen right hand which is resolved now. He is going back to work work at [employer] tomorrow. Otherwise he is doing fine. He does not have any questions, concerns. There is no additional complaints. CURRENT MEDICATIONS Reviewed and updated as per [...] PERRLA. EOMI. No pallor, icterus or conjunctivitis. IMPRESSION/REPORT/PLAN 1. Leukocytosis, which is resolved. I believe it is related to prednisone therapy. 2. Hypertension. Blood pressure is not controlled. Explained to the patient that it is important to control blood pressure. Better to keep blood pressure less than 130/80. He should cut back sodium in his diet. It was decided to increase lisinopril hydrochlorothiazide. He will take lisinopril/hydrochlorothiazide 20 mg/12.5 mg 2 tablets by mouth daily in the morning. New prescription was sent to pharmacy. He should come back in 2 weeks to check blood pressure with the nurse. At that time, we need to check basic metabolic profile. 3. Elevated sedimentation rate with polymyalgia rheumatica. He does not have problem with polymyalgia rheumatica. He does not have symptoms and signs suggestive for giant cell arteritis. Sedimentation rate was slightly high. Advised him to taper off prednisone as recommended. 4. Painful swelling of the right hand, which is resolved. All of his questions were answered. Return to clinic in 2 weeks for blood pressure check and repeat basic metabolic profile. Return to clinic in 1 month for follow up. Riley Sanchez M.D./alfredo Electronically Signed By: RILEY SANCHEZ MD On: 09/02/2012 04:11 PM Modified by and Electronically Signed by: RILEY SANCHEZ MD On: 09/02/2012 04:11 PM Source: [facility] MHSDOLBEYNONRADSYS Document Id: [id number] documented in this encounter Miscellaneous Notes Miscellaneous - Riley Sanchez M.D. - 08/31/2012 3:01 PM CDT Ambulatory Patient Summary [address] [address] Visit Information Name: SEVEN SALAZAR [facility] Number: [id number] Current Date: 08/31/2012 15:01:42 Physicians Attending Provider: RILEY SANCHEZ MD Primary [...] No Appointments found Your Goals/Additional instructions: Source: [facility] [employer] Document Id: [id number] Miscellaneous - Riley Sanchez M.D. - 08/31/2012 3:01 PM CDT Ambulatory Depart Summary [address] [address] Visit Information Name: SEVEN SALAZAR [facility] Number: [id number] Visit Date: 08/31/2012 15:01:41 Attending Provider: RILEY SANCHEZ MD Primary Care [...] your provider for clarification. Additional Information: Source: [facility] [employer] Document Id: [id number] Miscellaneous - Conversion, Historical Provider Ser - 08/31/2012 2:48 PM CDT Ambulatory Vitals Height Weight Ambulatory Vitals Height Weight Entered On: 08/31/2012 14:49 CDT Performed On: 08/31/2012 14:48 CDT by CLEO MAOJR LPN Vitals/Ht/Wt Systolic Blood Pressure : 164 mmHg (>HHI) Diastolic Blood Pressure : 78 mmHg NIBP Mean : 107 mmHg BP Location : Right upper extremity Blood Pressure Cuff Size : Thigh CLEO MAJOR LPN - 08/31/2012 14:48 CDT Source: [facility] [employer] Document Id: [id number] CDT!7 Miscellaneous - Conversion, Historical Provider Ser - 08/31/2012 2:47 PM CDT Ambulatory Vitals Height Weight Ambulatory Vitals Height Weight Entered On: 08/31/2012 14:48 CDT Performed On: 08/31/2012 14:47 CDT by CLEO MAJOR LPN Vitals/Ht/Wt Systolic Blood Pressure : 168 mmHg (>HHI) Diastolic Blood Pressure : 80 mmHg NIBP Mean : 109 mmHg BP Location : Right upper extremity Blood Pressure Cuff Size : Thigh CLEO MAJOR LPN - 08/31/2012 14:47 CDT Source: [employer] Document Id: [id number]!7 Miscellaneous - Conversion, Historical Provider Ser - 08/31/2012 2:43 PM CDT 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 Temperature Core : 36.2 DegC(Converted to: 97.2 DegF) (LOW) Peripheral Pulse Rate : 75 /min Respiratory Rate : 28 /min (HI) Systolic Blood Pressure : 148 mmHg (HI) Diastolic Blood Pressure : 80 mmHg NIBP Mean : 103 mmHg BP Location : Right upper extremity Blood Pressure Cuff Size : Large SpO2 : 96 % Oxygen Therapy : Room air Actual Weight : 103 kg(Converted to: 227 lb 1 oz) Weight Source : Standing scale Dosing Weight Clinic : 103 kg CLEO MAJOR LPN - 08/31/2012 14:43 CDT General Info Information Given By : Patient Languages : Spanish MORIAHCLEO LPN - 08/31/2012 14:43 CDT Subjective Pain Symptoms : No CLEO MAJOR LPN - 08/31/2012 14:43 CDT Dependent Habits Tobacco Use/Currently Using : Yes Exposure to Tobacco Smoke : Patient smokes Smoking Status : Current every day smoker CLEO MAJOR LPN - 08/31/2012 14:43 CDT Tobacco Use Grid Type : Cigarettes Cigarette Use Packs/Day : 0.5 Last Use : today CLEO MAJOR LPN - 08/31/2012 14:43 CDT Caffeine Use Grid Caffeine Use : Current Type : Coffee, Tea Frequency : Daily Amount : 2 cup coffee/2 tea daily CLEO MAJOR LPN - 08/31/2012 14:43 CDT Recreational Drug Use Grid Drug Use : None CLEO MAJOR LPN - 08/31/2012 14:43 CDT Source: [employer] Document Id: [id number] CDT!39 documented in this encounter Plan of Treatment Upcoming Encounters Date Type Specialty Care Team Description 04/12/2022 Office Visit Cardiovascular Disease Simone Gooden AP RN, C.N.P. [address] [phone] (Wo rk) documented as of this encounter Visit Diagnoses Not on filedocumented in this encounter
--- OUTSIDE RECORDS SUMMARY | 2022-03-29 07:58 | XMS_ITS | Encounter Summary ---
:1950 Author Organization [facility] Address [address] [place] [address] Care Team Providers Name Role Phone Unavailable Primary Care Provider Unavailable Encounter Details Date Type Department Care Team Description 05/04/2012 Hospital Encounter HX [facility] Tamika Camejo M.D. [address] [place] [phone] (Wo rk) Social History Tobacco [...] How often do you attend gnosticist or baptist services? Never 04/16/2019 Do you [...] at Date Recorded Male 06/28/2019 8:47 AM SHALLOT PACKER documented as of this encounter Last Filed Vital Signs Vital Sign Reading Time Taken Comments Blood Pressure 152/96 05/04/2012 9:59 AM SHALLOT PACKER Pulse 86 05/04/2012 9:59 AM SHALLOT PACKER Temperature - - Respiratory Rate - - Oxygen Saturation - - Inhaled Oxygen Concentration - - Weight - - Height - - Body Mass Index - - documented in this encounter Procedure Tamika Bridegs M.D. - 05/04/2012 12:00 AM CST 1RPT PROCEDURE Cystoscopy INDICATION Bladder cancer. 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 He completed six weeks of induction immunotherapy. Follow-up cystoscopy suggested some suspicious areas, however there was no evidence of recurrence based on biopsy. He subsequently underwent an additional three-week maintenance therapy. He then developed arthralgias presumably related to intravesical BCG and has not had any further BCG. His most recent negative cystoscopy was on 10/07/2011. PROCEDURE PROTOCOL The universal protocol was utilized. The patient was appropriately identified with at least two separate identifiers and the correct procedure was confirmed. INSTRUMENT Storz flexible cystourethroscope ANESTHESIA 2% aqueous lidocaine jelly introduced into the urethra The patient was placed in a supine position. The genitalia were prepped and draped sterily. The urethra was anesthetized with 2% aqueous lidocaine jelly. The cystoscope was advanced into the urethra. FINDINGS Meatus: Normal. Urethra: No strictures noted. Bulbous urethra and membranous urethra are normal. Prostate: Length: 3.5 to 4 centimeters. Lateral lobes: Lateral lobe hypertrophy with partial visual obstruction. Middle lobe: Absent. Bladder neck: Normal. Residual urine: Minimal. Ureteral orifices: Singular bilaterally, normal position on the trigone, slit- like in configuration and with clear efflux of urine noted bilaterally. Trabeculation: Mild. Tumors: There are no tumors, exophytic lesions, foreign bodies or suspicious areas located within the bladder. The procedure was well tolerated by the patient. IMPRESSION 1. History of transitional cell carcinoma of the urinary bladder, no cystoscopic evidence of recurrent disease. PLAN Send urine for both urine cytology and urothelial FISH studies. Provided these are negative, he is to return to urologic clinic for repeat cystoscopy in one year. He was discharged from the office in satisfactory condition. Post-cystoscopy instructions were reviewed with him. Tamika Camejo M.D./addis Electronically Signed By: TAMIKA CAMEJO MD On: 05/07/2012 10:07 AM Source: [facility] MHSDOLBEYNONRADSYS Document Id: [id number] LOT PACKER documented in this encounter Miscellaneous Notes Miscellaneous - Tamika Camejo M.D. - 05/11/2012 7:12 AM CST Results Notification Document Contains Addenda Addendum by STONEY MEDRANO on 11 May 2012 09:45:05 SHALLOT PACKER Pt notified Addendum by STONEY MEDRANO on 11 May 2012 09:38:20 SHALLOT PACKER LMTCB From: TAMIKA CAMEJO MD To: Urology Pool Sent: 05/11/2012 07:12:49 SHALLOT PACKER ! Show up: 05/11/2012 13:12:49 [facility] Subject: Results Notification Actions: Notify patient of results Source: [facility] POWERCHART Document Id: [id number] Jodicellaneous - Tamika Camejo M.D. - 05/04/2012 10:19 AM CST Ambulatory Patient Summary [facility] [address] [place] [address] Visit Information Name: SEVEN SALAZAR [facility] Number: [id number] Current Date: 05/04/2012 10:19:43 Physicians Attending Provider: TAMIKA CAMEJO MD Primary [...] Dose Route Frequency Indications/Special Instructions/Comments predniSONE (predniSONE 5 mg oral tablet) 15 mg Oral once a day (in the morning) with food / Dose decreased on 04/07/2012. calcium-vitamin D (Caltrate 600 with D 600 mg-400 intl units oral tablet) 1 tab(s) Oral two times a day with food with plenty of water predniSONE (predniSONE 20 mg oral tablet) 20 mg Oral once a day (in the morning) with food omeprazole (omeprazole 20 mg oral [...] Upcoming Appointments Date Time Location Reason Provider 05/11/2012 10:00 [facility] 1 month follow up for PMR & HTN Riley Sanchez MD Your Goals/Additional instructions: Source: [facility] POWERCHART Document Id: [id number] LOT PACKER Miscellaneous - Tamika Camejo M.D. - 05/04/2012 10:19 AM CST [place] [address] Visit Information Name: SEVEN SALAZAR [facility] Number: [id number] Visit Date: 05/04/2012 10:19:42 Attending Provider: TAMIKA CAMEJO MD Primary Care [...] Dose Route Frequency Indications/Special Instructions/Comments predniSONE (predniSONE 5 mg oral tablet) 15 mg Oral once a day (in the morning) with food / Dose decreased on 04/07/2012. calcium-vitamin D (Caltrate 600 with D 600 mg-400 intl units oral tablet) 1 tab(s) Oral two times a day with food with plenty of water predniSONE (predniSONE 20 mg oral tablet) 20 mg Oral once a day (in the morning) with food omeprazole (omeprazole 20 mg oral [...] your provider for clarification. Additional Information: Source: [facility] POWERCHART Document Id: [id number] LOT PACKER Miscellaneous - Stoney Velázquez, CBhaveshMBhaveshABhavesh - 05/04/2012 9:59 AM CST Adult [employer] Member Intake/History Document Has Been Updated Adult [employer] Member Intake/History Entered On: 05/04/2012 10:01 SHALLOT PACKER Performed On: 05/04/2012 9:59 SHALLOT PACKER by STONEY MEDRANO Intake Chief Complaint : 6 mo recheck, cytology/cysto Temperature Core : 36.7C(Converted to: 98.1DegF) Peripheral Pulse Rate : 86/min STONEY MEDRANO - 05/04/2012 9:59 SHALLOT PACKER Systolic Blood Pressure : 152mmHg (HI) (Comment: pt declined bp recheck, (did not take bp meds this morning) [STONEY MEDRANO - 05/04/2012 10:30 SHALLOT PACKER] ) STONEY MEDRANO - 05/04/2012 10:30 SHALLOT PACKER Diastolic Blood Pressure : 96mmHg (>HHI) NIBP Mean : 115mmHg BP Location : Left upper extremity Blood Pressure Cuff Size : Large STONEY MEDRANO - 05/04/2012 9:59 SHALLOT PACKER Subjective Pain Symptoms : No STONEY MEDRANO - 05/04/2012 9:59 SHALLOT PACKER Dependent Habits Tobacco Use/Currently Using : Yes Tobacco Use/Advised to Quit : Yes Exposure to Tobacco Smoke : Patient smokes Smoking Status : Current every day smoker STONEY MEDRANO - 05/04/2012 9:59 SHALLOT PACKER Tobacco Use Grid Type : Cigarettes Cigarette Use Packs/Day : 0.5 Last Use : today STONEY MDERANO - 05/04/2012 9:59 SHALLOT PACKER Alcohol Use : Yes (Comment: very rare [STONEY MEDRANO - 05/04/2012 9:59 SHALLOT PACKER] ) STONEY MEDRANO - 05/04/2012 9:59 SHALLOT PACKER Caffeine Use Grid Caffeine Use : Current Type : Coffee, Tea Frequency : Daily Amount : 2 cup coffee/2 tea daily STONEY MEDRANO - 05/04/2012 9:59 SHALLOT PACKER Recreational Drug Use Grid Drug Use : None STONEY MEDRANO - 05/04/2012 9:59 SHALLOT PACKER Allergy Allergies (Active) NKA Estimated Onset Date: Unspecified ; Created By: SARAI NIXON; Reaction Status: Active ; Category:Drug ; Substance: NKA ; Type: Allergy ; Updated By: SARAI NIXON; Reviewed Date: 05/04/2012 9:58 SHALLOT PACKER Source: [facility] POWERCHART Document Id: [id number] LOT PACKER documented in this encounter Plan of Treatment Upcoming Encounters Date Type Specialty Care Team Description 04/12/2022 Office Visit Cardiovascular Disease Simone Gooden AP RN, C.N.P. [address] [phone] (Wo rk) documented as of this encounter Procedures Procedure Name Priority Date/Time Associated Diagnosis Comme nts UROVYSION (R) FOR Routine 05/04/2012 10:30 AM Res ults for this BLADDER CANCER SHALLOT PACKER procedure are in the results section. CYTOLOGY, U Routine 05/04/2012 10:30 AM Results for this SHALLOT PACKER procedure are i n the results section. documented in this encounter Results Cytology, Urine (05/04/2012 10:30 AM SHALLOT PACKER) [facility] Method Time Signature HX Spec See Comment [facility]OWER[facility]ART [facility] Comment: RESULT: A. ??Urine, NOS: ??Received 40cc of yellow urine Test Performed by: [place] [id number] Set Up And Lay Out Inspector: Cem cali III, M.D. Specimen (Source) Anatomical Collection Method Collection Time Re ceived Time Location / / Volume Laterality Urine 05/04/2012 10:30 AM SHALLOT PACKER Tamika Camejo M.D. LAB URINE ORDERABLES Performing Organization Address City/State/ZIP Code Phon e Number POWERCHART UroVysion for Detection of Bladder Cancer, Urine (05/04/2012 10:30 AM SHALLOT PACKER) 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 [facility] See Comment POWERCH ART Comment: RESULT: r/o urothelial carcinom a HXUroCancer [facility] Negative. POWERCHA RT HXUroCancer [facility] See Comment POWER CHART Comment: No evidence [...] this FISH test. In previous urinary tract specimens, the results were negative on 07OCT2011; negative on 25FEB2011; negative on 08OCT2010; and ne gative on 02JUL2010. HXUroCancer [facility] See Comment POWER CHART Comment: RESULT: Alexis Francis MD HXUroCancer [facility] See Comment POWER CHART Comment: RESULT: 08 May 2012 14:50 Test Performed by: [address] [address] Set Up And Lay Out Inspector: Cem cali III, M.D. Specimen (Source) Anatomical Collection Method Collection Time Re ceived Time Location / / Volume Laterality Urine 05/04/2012 10:30 AM SHALLOT PACKER Tamika Camejo M.D. LAB GENETIC TESTING Performing Organization Address City/State/ZIP Code Phon e Number POWERCHART documented in this encounter Visit Diagnoses Not on filedocumented in this encounter
--- OUTSIDE RECORDS SUMMARY | 2022-03-29 07:58 | XMS_ITS | Encounter Summary ---
:1950 Author Organization [facility] Address [address] [place] [address] Care Team Providers Name Role Phone Unavailable Primary Care Provider Unavailable Encounter Details Date Type Department Care Team Description 09/14/2012 Hospital En[facility] NURSE Leta Ferrera M.D. [address] [phone] Social History Tobacco Use Types Packs/Day [...] How often do you attend druze or pentecostal services? Never 04/16/2019 Do you [...] at Date Recorded Male 06/28/2019 8:47 AM [employer]EL [employer] documented as of this encounter Last Filed Vital Signs Vital Sign Reading Time Taken Comments Blood Pressure 142/88 09/14/2012 9:25 AM CDT Pulse 80 09/14/2012 9:15 AM CDT Temperature - - Respiratory Rate 20 09/14/2012 9:15 AM CDT Oxygen Saturation - - Inhaled Oxygen Concentration - - Weight - - Height - - Body Mass Index - - documented in this encounter Miscellaneous Notes Miscellaneous - Juan Francisco Mckinney, L.P.N. - 09/14/2012 9:25 AM CDT Ambulatory Vitals Height Weight Ambulatory Vitals Height Weight Entered On: 09/14/2012 10:23 CDT Performed On: 09/14/2012 9:25 CDT by JUAN FRANCISCO MCKINNEY Vitals/Ht/Wt Systolic Blood Pressure : 142 mmHg (HI) Diastolic Blood Pressure : 88 mmHg NIBP Mean : 106 mmHg BP Location : Right upper extremity Blood Pressure Cuff Size : Large JUAN FRANCISCO MCKINNEY - 09/14/2012 10:23 CDT Source: [employer] Document Id: [id number]!7 Miscellaneous - Juan Francisco Mckinney LBhaveshP.NBhavesh - 09/14/2012 9:15 AM CDT Ambulatory Vitals Height Weight Ambulatory Vitals Height Weight Entered On: 09/14/2012 10:23 CDT Performed On: 09/14/2012 9:15 CDT by JUAN FRANCISCO MCKINNEY Vitals/Ht/Wt Peripheral Pulse Rate : 80 /min Respiratory Rate : 20 /min Systolic Blood Pressure : 142 mmHg (HI) Diastolic Blood Pressure : 88 mmHg NIBP Mean : 106 mmHg BP Location : Right upper extremity Blood Pressure Cuff Size : Large JUAN FRANCISCO MCKINNEY - 09/14/2012 10:22 CDT Source: [employer] Document Id: [id number]!9 documented in this encounter Plan of Treatment Upcoming Encounters Date Type Specialty Care Team Description 04/12/2022 Office Visit Cardiovascular Disease Simone Gooden AP RN, C.N.P. [address] [phone] (Wo rk) documented as of this encounter Visit Diagnoses Not on filedocumented in this encounter
--- OUTSIDE RECORDS SUMMARY | 2022-03-29 07:58 | XMS_ITS | Encounter Summary ---
:1950 Author Organization [facility] Address [address] [place] [address] Care Team Providers Name Role Phone Unavailable Primary Care Provider Unavailable Encounter Details Date Type Department Care Team Description 07/28/2012 Hospital Encounter HX [facility] Riley Jimenez M.D. [address] [facility] [address] [phone] Social History Tobacco Use Types Packs/Day [...] How often do you attend mandaen or shinto services? 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 - 07/28/2012 10:44 AM CDT [id number] CHIEF COMPLAINT/REASON FOR VISIT 2-week follow up. HISTORY OF PRESENT ILLNESS I saw Mr. Salazar on July 13, 2012 for emergency room follow up. He had work related injury. He was diagnosed with cervical radiculopathy at [facility] emergency department on July 10, 2012. When I saw him last time he was given Flexeril and cervical spine x-ray was obtained. Patient was advised to come back today for follow up. He is feeling better. He no longer has pain and discomfort in the neck and shoulder. He does not have tingling or numbness in upper extremities. I reviewed cervicalspine x-ray results. There was no fracture. No acute abnormality. He has degenerative disk disease at C5-C6 and C6-C7. Patient needs work excuse today. CURRENT MEDICATIONS Reviewed and updated as per [...] EOMI. No pallor, icterus or conjunctivitis. IMPRESSION/REPORT/PLAN Cervical radiculopathy, which is resolved. He feels better. I reviewed cervical spine x-ray. It is remarkable for degenerative disk disease. He was given work excuse for today. Return to clinic if there is recurrent problem. Riley Sanchez M.D./milagros Electronically Signed By: RILEY SANCHEZ MD On: 08/05/2012 11:28 AM Source: [facility] MHSDOLBEYNONRADSYS Document Id: [id number] Riley Sanchez M.D. - 07/28/2012 10:44 AM CDT [id number] CHIEF COMPLAINT/REASON FOR VISIT Follow up. HISTORY OF PRESENT ILLNESS This is a 62-year-old man who came in today for follow up. I saw him on July 13, 2012. He has polymyalgia rheumatica, hypertension and leukocytosis. Patient does not want to take prednisone anymore because he feels hungry and the medication put him on edge. He would like to taper off. He no longer has aches and pains. There was no stiffness. When I saw him last time on July 13, 2012 he had a blood test. Complete blood count remarkable for leukocytosis, WBC 15.7, basic metabolic profile remarkable for CO2 32, creatinine 0.8, and sedimentation rate was normal at 16. When I saw him last time he was also noted to have uncontrolled blood pressure secondary to noncompliance with medications. His medications were renewed. According to patient, he has been taking medication regularly. CURRENT MEDICATIONS Reviewed and updated as per [...] Able to talk without interruption. IMPRESSION/REPORT/PLAN 1. Polymyalgia rheumatica. Recent sedimentation rate was normal. He would like to discontinue prednisone as soon as possible because of side effects. After discussion, it was decided to taper off prednisone. He will take 10 mg by mouth daily for one week, then 7.5 mg by mouth daily for one week, then 5 mg by mouth daily for one week, then 2.5 mg by mouth daily for one week and discontinue. He should contact me if he has recurrent symptoms and signs suggestive for polymyalgia rheumatica. 2. Hypertension. Blood pressure is better since he has been taking medications. He should watch sodium intake which should be less than 2000 mg a day. He will continue lisinopril/hydrochlorothiazide once a day. 3. Leukocytosis. He still has elevated white blood cells. It could be due to prednisone therapy. Need to monitor complete blood count. All of his questions were answered. Return to clinic in one month for follow up. He needs following tests before next appointment: Complete blood count, basic metabolic profile and sedimentation rate. Riley Sanchez M.D./milagros Crystal: 08/01/2012 07:07 PM Electronically Signed By: RILEY SANCHEZ MD On: 08/05/2012 12:21 PM Modified by and Electronically Signed by: RILEY SANCHEZ MD On: 08/05/2012 12:21 PM Source: [facility] MHSDOLBEYNONRADSYS Document Id: [id number] documented in this encounter Miscellaneous Notes Miscellaneous - Riley Sanchez M.D. - 07/28/2012 11:11 AM CDT School or Work Excuse School or Work Excuse Entered On: 07/28/2012 11:12 CDT Performed On: 07/28/2012 11:11 CDT by RILEY SANCHEZ MD School or Work Excuse Date Patient Seen : 07/28/2012 CDT School or Work Restrictions : Other: Work excuse today, 07/28/2012. Date of Return to School/Work Without Restrictions : 07/29/2012 CDT RILEY SANCHEZ MD - 07/28/2012 11:11 CDT Source: [facility] POWERCHART Document Id: [id number] Miscellaneous - Riley Sanchez M.D. - 07/28/2012 11:03 AM CDT Ambulatory Patient Summary [address] [address] Visit Information Name: SEVEN SALAZAR [facility] Number: [id number] Current Date: 07/28/2012 11:03:42 Physicians Attending Provider: RILEY SANCHEZ MD Primary [...] No Appointments found Your Goals/Additional instructions: Source: [facility] POWERCHART Document Id: [id number] Miscellaneous - Riley Sanchez M.D. - 07/28/2012 11:03 AM CDT Ambulatory Depart Summary [address] [address] Visit Information Name: SEVEN SALAZAR [facility] Number: [id number] Visit Date: 07/28/2012 11:03:41 Attending Provider: RILEY SANCHEZ MD Primary Care [...] your provider for clarification. Additional Information: Source: [facility] POWERCHART Document Id: [id number] Miscellaneous - Conversion, Historical Provider Ser - 07/28/2012 10:49 AM CDT Adult Hospital Insurance Clerk Intake/History Adult Hospital Insurance Clerk Intake/History Entered On: 07/28/2012 10:53 CDT Performed On: 07/28/2012 10:49 CDT by KULDEEP MAJOREMMA ADAMS LPN Intake Chief Complaint : WC 2 week follow up. Temperature Core : 36.2DegC(Converted to: 97.2DegF) (LOW) Peripheral Pulse Rate : 98/min Respiratory Rate : 20/min Systolic Blood Pressure : 130mmHg Diastolic Blood Pressure : 80mmHg NIBP Mean : 97mmHg SpO2 : 98% Oxygen Therapy : Room air Actual Weight : 103kg(Converted to: 227lb 1oz) Weight Source : Standing scale Dosing Weight Clinic : 103.00kg CLEO MAJOR SHEMAR - 07/28/2012 10:49 CDT General Info Information Given By : Patient Languages : Macedonian CLEO MAJOR SHEMAR - 07/28/2012 10:49 CDT Subjective Pain Symptoms : No CLEO MAJOR ANGIE STATON - 07/28/2012 10:49 CDT Dependent Habits Tobacco Use/Currently Using : Yes Exposure to Tobacco Smoke : Patient smokes Smoking Status : Current every day smoker CLEO MAJOR ANGIE STATON - 07/28/2012 10:49 CDT Tobacco Use Grid Type : Cigarettes Cigarette Use Packs/Day : 0.5 Last Use : today MORIAHCLEO ANGIE STATON - 07/28/2012 10:49 CDT Caffeine Use Grid Caffeine Use : Current Type : Coffee, Tea Frequency : Daily Amount : 2 cup coffee/2 tea daily CLEO MAJOR ANGIE STATON - 07/28/2012 10:49 CDT Recreational Drug Use Grid Drug Use : None CLEO MAJOR ANGIE STATON - 07/28/2012 10:49 CDT Allergy Allergies (Active) NKA Estimated Onset Date: Unspecified ; Created By: SARAI NIXON; Reaction Status: Active ; Category:Drug ; Substance: NKA ; Type: Allergy ; Updated By: SARAI NIXON; Reviewed Date: 07/28/2012 10:48 CDT [facility] P[facility] Document Id: [id number] documented in this encounter Plan of Treatment Upcoming Encounters Date Type Specialty Care Team Description 04/12/2022 Office Visit Cardiovascular Disease Simone Gooden AP RN, C.N.P. [address] [place], [place] [phone] (Wo rk) documented as of this encounter Visit Diagnoses Not on filedocumented in this encounter
--- OUTSIDE RECORDS SUMMARY | 2022-03-29 07:58 | XMS_ITS | Encounter Summary ---
:1950 Author Organization [facility] Address [address] [place] [address] Care Team Providers Name Role Phone Unavailable Primary Care Provider Unavailable Encounter Details Date Type Department Care Team Description 07/13/2012 Hospital Encounter HX [facility] Riley Jimenez M.D. [address] [facility], [facility] [[email or web address]] [address] [phone] Social History Tobacco Use Types Packs/Day [...] How often do you attend christianity or temple services? 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 - 07/13/2012 11:34 AM CDT [id number] CHIEF COMPLAINT/REASON FOR VISIT Followup. HISTORY OF PRESENT ILLNESS Mr. Salazar is a 62-year-old man who came in today for followup after emergency room visit. He went to [facility] emergency department because of injury at work. He was diagnosed with cervical radiculopathy. Please see detail in the other note. I saw him on April 06, 2012 for polymyalgia rheumatica , hypertension and leukocytosis. He was advised to come back in 1 month for follow up with a blood test. He missed follow up appointment on May 11, 2012. We contacted him to schedule appointment. He has not done it yet. According to patient he does not take prednisone as prescribed. He does not use omeprazole. His blood pressure was high. There was no chest pain, short of breath, dizziness,lightheadedness or fainting spells. He needs prescription for albuterol inhaler, Combivent inhaler, lisinopril and hydrochlorothiazide. Patient agreed to have blood test today. CURRENT MEDICATIONS Reviewed and updated as [...] No pallor, icterus or conjunctivitis. IMPRESSION/REPORT/PLAN 1. Hypertension. Blood pressure is high secondary to noncompliance. Advised him to restart blood pressure medication. He should cut back sodium in his diet. We need to monitor blood pressure in subsequent visit. Better to keep blood pressure less than 130/80. 2. Polymyalgia rheumatica. He does not take prednisone as prescribed. Currently he takes Medrol Dosepak as prescribed by physician from [facility] emergency department. We need to check sedimentation rate today. 3. Leukocytosis. It could be partly due to prednisone therapy. We need to check complete blood counttoday. 4. Tobacco use. He continues to smoke cigarettes. He is not ready to quit at this point. All of his questions were answered. Today's studies: Complete blood count, basic metabolic profile and sedimentation rate. He will be notified when we get all these test results. Riley Sanchez M.D./doroteo Electronically Signed By: RILEY SANCHEZ MD On: 08/03/2012 08:51 AM Source: [facility] MHSDOLBEYNONRADSYS Document Id: [id number] Riley Sanchez M.D. - 07/13/2012 11:34 AM CDT [id number] CHIEF COMPLAINT/REASON FOR VISIT Emergency room follow up. HISTORY OF PRESENT ILLNESS This is a 62-year-old man came in today for followup after emergency department visit. He went to [facility] on July 09, 2012 because of work related injury. He works at [employer] in [place], [place]. He was lifting 77 pound object and following after that he has pain discomfort on his neck and shoulder. Then he went to [facility]. He was diagnosed with cervical radiculopathy. He wasgiven a Medrol Dosepak and Ativan and advised him to take Tylenol 2 tablets every 4-hour as needed. Patient was told to see me for further evaluation. He noticed some tingling, numbness sensation in upper extremities when he plays pool or when he bends over. He does not take Ativan regularly because of sleepiness. Patient is ambulating. There was no motor weakness in upper extremities. CURRENT MEDICATIONS Reviewed and updated as per [...] effort. Clear to auscultation. Normal percussion. SPINE: Examination of the cervical spine. There was no paravertebral mass and he has spasms. There was no crepitus. MENTAL: Alert and oriented x 3. Normal mood and affect. NEURO: Grossly nonfocal exam. IMPRESSION/REPORT/PLAN 1. Neck pain with cervical radiculopathy due to work related injury on 07/09/2012. Discussed with himabout further evaluation and management. Will get cervical spine x-ray. Will follow official radiologist report. He can take Demerol Dosepak. Prescription for Flexeril was given. He will take 10 mg by m outh 3 times a day as needed for muscle spasms. Advised him not to take Lorazepam. Discussed with him about potential side effects of Flexeril. Return to clinic in 2 weeks for follow up. Riley Sanchez M.D./alfredo Electronically Signed By: RILEY SANCHEZ MD On: 08/05/2012 10:53 AM Modified by and Electronically Signed by: RILEY SANCHEZ MD On: 08/05/2012 10:53 AM Source: [facility] MHSDOLBEYNONRADSYS Document Id: [id number] documented in this encounter Miscellaneous Notes Miscellaneous - Riley Sanchez M.D. - 07/13/2012 4:23 PM CDT Results Notification Document Contains Addenda Addendum by CLEO MAJOR LPN on 14 July 2012 16:16:06 CDT From: CLEO MAJOR LPN To: RILEY SANCHEZ MD; Sent: 07/14/2012 16:16:06 CDT Show up: 07/14/2012 16:15:00 CDT Subject: RE: Results Notification Seven called and is aware of these results. From: RILEY SANCHEZ MD To: CLEO MAJOR LPN Sent: 07/13/2012 16:23:10 CDT ! Show up: 07/13/2012 21:23:10 [facility] Subject: Results Notification Actions: Notify patient of results Source: [facility] POWERCHART Document Id: [id number] Electronically signed by Rivka [facility] Inspector Balance Wheel Motion [id number] at 10/02/2016 11:01 AM CDT Miscellaneous - Riley Sanchez M.D. - 07/13/2012 2:26 PM CDT Results Notification Document Contains Addenda Addendum by CLEO MAJOR LPN on 14 July 2012 16:15:38 CDT From: CLEO MAJOR LPN To: RILEY SANCHEZ MD; Sent: 07/14/2012 16:15:38 CDT Show up: 07/14/2012 16:15:00 CDT Subject: RE: Results Notification Seven called and aware of results. From: RILEY SANCHEZ MD To: CLEO MAJOR LPN, MARCIA D Sent: 07/13/2012 14:26:01 CDT ! Show up: 07/13/2012 19:26:01 [facility] Subject: Results Notification Actions: Notify patient of results Source: [facility] POWERCHART Document Id: [id number] Electronically signed by Conversion, [facility] Inspector [employer] Wheel [employer] [id number] at 10/02/2016 11:01 AM CDT Miscellaneous - Riley Sanchez M.D. - 07/13/2012 12:29 PM CDT Results Notification Document Contains Addenda Addendum by CLEO MAJOR LPN on 14 July 2012 16:15:16 CDT From: CLEO MAJOR LPN To: RILEY SANCHEZ MD; Sent: 07/14/2012 16:15:16 CDT Show up: 07/14/2012 16:15:00 CDT Subject: RE: Results Notification Seven is aware of these results. From: RILEY SANCHEZ MD To: CLEO MAJOR LPN, MARCIA D Sent: 07/13/2012 12:29:44 CDT ! Show up: 07/13/2012 17:29:44 [facility] Subject: Results Notification Actions: Notify patient of results Source: [facility] POWERCHART Document Id: [id number] Electronically signed by Conversion, [facility] Inspector Balance Wheel Motion [id number] at 10/02/2016 11:01 AM CDT Miscellaneous - Riley Sanchez M.D. - 07/13/2012 12:04 PM CDT Ambulatory Patient Summary [address] [address] Visit Information Name: SEVEN SALAZAR [facility] Number: [id number] Current Date: 07/13/2012 12:04:28 Physicians Attending Provider: RILEY SANCHEZ MD Primary Care Provider: RILEY SANCHEZ MD Your Medications Here is a list of your medications. It is important to take your medications as directed. Use a pillbox or chart to help remind you to take your medications. Please let your doctor or nurse know if you have problems taking your medications. Medication/Strength Dose Route Frequency Indications/Special Instructions/Comments albuterol (albuterol 90 mcg/inh inhalation aerosol with adapter) 2 puff(s) Inhalation four times a day as needed for Shortness of breath / Wheezing lisinopril-hydrochlorothiazide (hydrochlorothiazide-lisinopril 25 mg-20 mg oral tablet) See Instructions 1.5 tab(s) PO Daily AM ipratropium-albuterol (Combivent 18 mcg-103 mcg/inh inhalation aerosol with adapter) 2 puff(s) Inhalation four times a day (shake well before using) use with spacer chamber cyclobenzaprine (Flexeril 10 mg oral tablet) 10 mg Oral three times a day as needed for Muscle spasm *predniSONE (predniSONE 5 mg oral tablet) 15 mg Oral once a day (in the morning) with food / Dose decreased on 04/07/2012. calcium-vitamin D (Caltrate 600 with D 600 mg-400 intl units oral tablet) 1 tab(s) Oral two times a day with food with plenty of water *predniSONE (predniSONE 20 mg oral tablet) 20 mg Oral once a day (in the morning) with food *omeprazole (omeprazole 20 mg oral delayed release capsule) 20 mg Oral once a day APAP/ASA/caffeine (Excedrin Migraine) 3 tab(s) Oral once as needed for Headache * You have let us know that you are not taking this medication as listed. Please talk with your primary care provider or the health care provider who prescribed the medication as soon as possible. Attention: If you have any medications at [...] No Appointments found Your Goals/Additional instructions: Source: [facility] POWERCHART Document Id: [id number] Miscellaneous - Riley Sanchez M.D. - 07/13/2012 12:04 PM CDT Ambulatory Depart Summary [address] [address] Visit Information Name: CHRIS SEVEN AVINA [facility] Number: [id number] Visit Date: 07/13/2012 12:04:27 Attending Provider: RILEY SANCHEZ MD Primary Care [...] medications. Medication/Strength Dose Route Frequency Indications/Special Instructions/Comments albuterol (albuterol 90 mcg/inh inhalation aerosol with adapter) 2 puff(s) Inhalation four times a day as needed for Shortness of breath / Wheezing lisinopril-hydrochlorothiazide (hydrochlorothiazide-lisinopril 25 mg-20 mg oral tablet) See Instructions 1.5 tab(s) PO Daily AM ipratropium-albuterol (Combivent 18 mcg-103 mcg/inh inhalation aerosol with adapter) 2 puff(s) Inhalation four times a day (shake well before using) use with spacer chamber cyclobenzaprine (Flexeril 10 mg oral tablet) 10 mg Oral three times a day as needed for Muscle spasm *predniSONE (predniSONE 5 mg oral tablet) 15 mg Oral once a day (in the morning) with food / Dose decreased on 04/07/2012. calcium-vitamin D (Caltrate 600 with D 600 mg-400 intl units oral tablet) 1 tab(s) Oral two times a day with food with plenty of water *predniSONE (predniSONE 20 mg oral tablet) 20 mg Oral once a day (in the morning) with food *omeprazole (omeprazole 20 mg oral delayed release capsule) 20 mg Oral once a day APAP/ASA/caffeine (Excedrin Migraine) 3 tab(s) Oral once as needed for Headache * You have let us know that you are not taking this medication as listed. Please talk with your primary care provider or the health care provider who prescribed the medication as soon as possible. Attention: If you have any medications at home that are not on this list, DO NOT take them until youcontact your provider for clarification. Additional Information: Source: [employer] Document Id: [id number] Miscellaneous - Conversion, Historical Provider Ser - 07/13/2012 11:50 AM CDT Ambulatory Vitals Height Weight Ambulatory Vitals Height Weight Entered On: 07/13/2012 11:50 CDT Performed On: 07/13/2012 11:50 CDT by CLEO MAJOR LPN Vitals/Ht/Wt Systolic Blood Pressure : 180mmHg (>HHI) Diastolic Blood Pressure : 100mmHg (>HHI) NIBP Mean : 127mmHg BP Location : Right upper extremity Blood Pressure Cuff Size : Thigh CLEO MAJOR LPN - 07/13/2012 11:50 CDT Source: [employer] Document Id: [id number] Miscellaneous - Conversion, Historical Provider Ser - 07/13/2012 11:44 AM CDT Health Assessment Health Assessment Entered On: 07/13/2012 11:44 CDT Performed On: 07/13/2012 11:44 CDT by CLEO MAJOR LPN Health Assessment Complete Health Assessment Complete or Modified : Annual Health Assessment Annual Health Assessment Completed : Yes CLEO MAJOR LPN - 07/13/2012 11:44 CDT Nutrition Nutrition Risk Factors by History Adult : None CLEO MAJOR LPN - 07/13/2012 11:44 CDT Functional Current Daily Living Assistance : None CLEO MAJOR LPN - 07/13/2012 11:44 CDT Dependent Habits Tobacco Use/Currently Using : Yes Exposure to Tobacco Smoke : Patient smokes Smoking Status : Current every day smoker MORIAH CLEO ADAMS LPN - 07/13/2012 11:44 CDT Tobacco Use Grid Type : Cigarettes Cigarette Use Packs/Day : 0.5 Last Use : today MORIAH CLEO ADAMS LPN - 07/13/2012 11:44 CDT Caffeine Use Grid Caffeine Use : Current Type : Coffee, Tea Frequency : Daily Amount : 2 cup coffee/2 tea daily CLEO MAJOR LPN - 07/13/2012 11:44 CDT Recreational Drug Use Grid Drug Use : None MORIAH CLEO ADAMS LPN - 07/13/2012 11:44 CDT Psychosocial Domestic Abuse Concerns : None CLEO MAJOR LPN - 07/13/2012 11:44 CDT Advance Directive Advanced Directives : Yes Advance Directive Type : Living will Advance Directive Additional Information : No CLEO MAJOR LPN - 07/13/2012 11:44 CDT Educ Needs Learning Style Preference Adult Grid Patient : Verbal explanation Family : Verbal explanation CLEO MAJOR LPN - 07/13/2012 11:44 CDT Source: [employer] Document Id: [id number] Miscellaneous - Conversion, Historical Provider Ser - 07/13/2012 11:44 AM CDT 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 Temperature Core : 37.0C(Converted to: 98.6DegF) Peripheral Pulse Rate : 84/min Respiratory Rate : 16/min Systolic Blood Pressure : 210mmHg (>HHI) Diastolic Blood Pressure : 100mmHg (>HHI) NIBP Mean : 137mmHg BP Location : Right upper extremity Blood Pressure Cuff Size : Thigh SpO2 : 96% Oxygen Therapy : Room air Actual Weight : 104kg(Converted to: 229lb 4oz) Weight Source : Standing scale Dosing Weight Clinic : 104.00kg CLEO MAJOR LPN - 07/13/2012 11:44 CDT General Info Information Given By : Patient Languages : Japanese CLEO MAJOR [facility] - 07/13/2012 11:44 CDT Subjective Pain Symptoms : Yes CLEO MAJOR [facility] - 07/13/2012 11:44 CDT Pain Pain Assessment Grid Pain 1 Location : Neck CLEO MAJOR MARKETING INFORMATION MANAGER - 07/13/2012 11:44 CDT Dependent Habits Tobacco Use/Currently Using : Yes Exposure to Tobacco Smoke : Patient smokes Smoking Status : Current every day smoker CLEO MAJOR [facility] - 07/13/2012 11:44 CDT Tobacco Use Grid Type : Cigarettes Cigarette Use Packs/Day : 0.5 Last Use : today CLEO MAJOR [facility] - 07/13/2012 11:44 CDT Caffeine Use Grid Caffeine Use : Current Type : Coffee, Tea Frequency : Daily Amount : 2 cup coffee/2 tea daily CLEO MAJOR [facility] - 07/13/2012 11:44 CDT Recreational Drug Use Grid Drug Use : None CLEO MAJOR [facility] - 07/13/2012 11:44 CDT Allergy Allergies (Active) NKA Estimated Onset Date: Unspecified ; Created By: SARAI NIXON; Reaction Status: Active ; Category:Drug ; Substance: NKA ; Type: Allergy ; Updated By: SARAI NIXON; Reviewed Date: 07/13/2012 11:40 CDT Source: [facility] [employer] Document Id: [id number] documented in this encounter Plan of Treatment Upcoming Encounters Date Type Specialty Care Team Description 04/12/2022 Office Visit Cardiovascular Disease Simone Gooden AP RN, C.N.P. [address] [phone] (Wo rk) documented as of this encounter Procedures Procedure Name Priority Date/Time Associated Comments Diagnosis HXPERIPH SMEAR EXAM Routine 07/13/2012 12:18 Resu lts for this PM CDT procedure are i n the results section. AUTOMATED Routine 07/13/2012 12:18 Results for this DIFFERENTIAL, B PM CDT procedure ar e in the results section. SEDIMENTATION RATE, B Routine 07/13/2012 12:18 Re sults for this PM CDT procedure are i n the results section. CBC WITH DIFFERENTIAL, Routine 07/13/2012 12:18 R esults for this B PM CDT procedure are i n the results section. BASIC METABOLIC PANEL, Routine 07/13/2012 12:18 R esults for this S/P PM CDT procedure are i n the results section. DX CERVICAL SPINE 2-3 Routine 07/13/2012 12:17 Re sults for this VIEWS PM CDT procedure are i n the results section. documented in this encounter Results HXPERIPH SMEAR EXAM (07/13/2012 12:18 PM CDT) Patholo gist Method Time Signature HXWBC Est. agree agree POWERCHART PLT Estimate adequate POWERCHART HXPeriph Morph appears POWERCHART normal Specimen (Source) Anatomical Collection Method Collection Time Re ceived Time Location / / Volume Laterality Blood 07/13/2012 12:18 PM CDT Riley Sanchez M.D. LAB HISTORICAL ORDERS Performing Organization Address City/State/ZIP Code Phon e Number POWERCHART Automated Differential (07/13/2012 12:18 PM CDT) P athologist Signature Neutro % 66.1 34.0 - 67.9 POWERCHART Lymphocytes % 23.1 21.8 - 53.1 POWERCHART HX [place] % 9.4 5.3 - 12.2 POWERCHART HX Eos % 1.0 0.8 - 7.0 POWERCHART HX Baso % 0.4 0.2 - 1.2 POWERCHART Specimen Anatomical Collection Method Collection Time Receive d Time (Source) Location / / Volume Laterality Blood 07/13/2012 12:18 07/13/2012 PM CDT 12:18 PM CDT Riley Sanchez MRoldan LAB BLOOD ADD-ON Performing Organization Address City/State/ZIP Code Phon e Number POWERCHART Sedimentation Rate (07/13/2012 12:18 PM CDT) Analysis Performed At Patho logist Time Signature Sedimentation 16 0 - 22 POWERCHART Rate, B MMHR Specimen (Source) Anatomical Collection Method Collection Time Re ceived Time Location / / Volume Laterality Blood 07/13/2012 12:18 PM CDT Riley Sanchez M.D. LAB BLOOD ADD-ON Performing Organization Address City/State/ZIP Code Phon e Number POWERCHART (ABNORMAL) CBC with Differential (07/13/2012 12:18 PM CDT) Patholo gist Method Time Signature HXDifferential? Auto POWERCHART Leukocytes 15.7 (H) 3.5 - 10.5 POWERCHART X109L Erythrocytes 5.33 4.32 - POWERCHART 5.72 [id number] Hemoglobin 15.2 13.5 - POWERCHART 17.5 GDL Hematocrit 44.2 38.8 - POWERCHART 50.0 MCV 82.9 81.0 - POWERCHART 95.0 FL Platelet Count 336 150 - 450 POWERCHART X109L HX RDW 14.6 11.8 - POWERCHART 15.6 Specimen (Source) Anatomical Collection Method Collection Time Re ceived Time Location / / Volume Laterality Blood 07/13/2012 12:18 PM CDT Riley Valente Javid LAB BLOOD ADD-ON Performing Organization Address City/[facility]/ZIP Code Phon e Number POWERCHART (ABNORMAL) BMP (Basic Metabolic Panel) (07/13/2012 12:18 PM CDT) P athologist Signature BUN (Blood Urea 23 7 - 23 POWERCHART Nitrogen), S MGDL Creatinine 0.8 (L) 0.9 - 1.4 POWERCHART MGDL Glucose 70 POWERCHART Potassium, S 4.3 3.5 - 4.8 POWERCHART MMOLL Sodium, S 143 135 - 145 POWERCHART MMOLL Chloride, S 101 100 - 108 POWERCHART MMOLL CO2 Total 32 (H) 22 - 29 POWERCHART MMOLL Calcium, Total, 9.6 8.5 - 10.5 POWERCHART S MGDL HXeGFR (MDRD) >60 MLMIN POWERCHART eGFR >60 MLMIN POWERCHART Black/ Specimen (Source) Anatomical Collection Method Collection Time Re ceived Time Location / / Volume Laterality Blood 07/13/2012 12:18 PM CDT Riley Sanchez M.D. LAB BLOOD ADD-ON Performing Organization Address City/State/ZIP Code Phon e Number POWERCHART DX Cervical Spine 2-3 Views (07/13/2012 12:17 PM CDT) Anatomical Region Laterality Modality Cervical Spine N/A Radiographic Imaging Specimen (Source) Anatomical Collection Method Collection Time Re ceived Time Location / / Volume Laterality 07/13/2012 12:17 PM CDT Addenda Addendum by Provider, Javid Samson o n 07/13/2012 12:17 PM CDT RAD^^^OW XR Cervical Spine 2 or 3 views 07/13/2012 12:17:00 Impressions 07/13/2012 12:44 PM CDT 1. Stable cervical spine, no fracture or acute abnormality. 2. Degenerative disc disease at C5-C6 an d C6-C7. Narrative 07/13/2012 12:44 PM CDT EXAM: XR Cervical Spine 3 or less views INDICATION: Pain, Cervical radiculopathy COMPARISON: 11/22/2011. FINDINGS: Prevertebral soft tissues are unremarkable. The 7 cervical vertebrae are well visualized and normal in height and alignment without evidence of fracture or destruct nini lesions. There is straightening of the normal cervical jeffrey dosis which is likely secondary to positioning. There is some calcification in the ligamentum nuchae posterior to the spino us process of C5. There is disc space narrowing with degenerative s purring primarily anteriorly at C5-C6 and C6-C7. Remaining disc level s are preserved. There is no significant interval change compared wit h 11/22/2011. Procedure Note Lenny Hickey Jr., M.D. / Mali Roblero M.D. - 09/20/2016 EXAM: XR Cervical Spine 3 or less views INDICATION: Pain, Cervical radiculopathy COMPARISON: 11/22/2011. FINDINGS: Prevertebral soft tissues are unremarkable. The 7 cervical vertebrae are well visualized and normal in height and alignment without evidence of fracture or destruct nini lesions. There is straightening of the normal cervical jeffrey dosis which is likely secondary to positioning. There is some calcification in the ligamentum nuchae posterior to the spino us process of C5. There is disc space narrowing with degenerative s purring primarily anteriorly at C5-C6 and C6-C7. Remaining disc level s are preserved. There is no significant interval change compared wit h 11/22/2011. IMPRESSION: 1. Stable cervical spine, no fracture or acute abnormality. 2. Degenerative disc disease at C5-C6 an d C6-C7. Jennifer Byrd(RRochelle Razo (R)(Randy) IMG DIAGNOSTIC IM AGING PROCEDURES documented in this encounter Visit Diagnoses Not on filedocumented in this encounter
--- OUTSIDE RECORDS SUMMARY | 2022-03-29 07:58 | XMS_ITS | Encounter Summary ---
:1950 Author Organization [facility] Address [address] [place] [address] Care Team Providers Name Role Phone Unavailable Primary Care Provider Unavailable Encounter Details Date Type Department Care Team Description 09/14/2012 Hospital Encounter HX [facility] Riley Sanchez M.D. [address] [facility] [address] [phone] Social History Tobacco Use Types Packs/Day [...] How often do you attend adventism or shinto services? 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 - 09/14/2012 12:39 PM CDT Normal Results Letter Document Contains Addenda Addendum by CLEO MAJOR LPN on 14 Sep 2012 15:11 CDT Results mailed. Modified by and Electronically Signed by: CLEO MAJOR LPN On: 09/14/2012 03:11 PM 14 Sep 2012 SEVEN SALAZAR [address] [facility] [address] [facility] [phone] Deamaribell SALAZAR, I am pleased to report that your results from the following diagnostic test(s) are normal. Electrolytes, glucose & kidney function OK. Please follow up with us as we discussed during your visit or sooner if you have any concerns. If you have questions or concerns, please do not hesitate to call our office. Result Name Current Result Previous Result Normal Range Sodium Lvl (mmol/L) 143 09/14/2012 144 08/27/2012 143 07/13/2012 141 04/06/2012 135 - 145 Potassium Lvl (mmol/L) 4.4 09/14/2012 4.0 08/27/2012 4.3 07/13/2012 4.1 04/06/2012 3.5 - 4.8 Chloride (mmol/L) 103 09/14/2012 102 08/27/2012 101 07/13/2012 100 04/06/2012 100 - 108 CO2 (mmol/L) (H) 31 09/14/2012 (H) 31 08/27/2012 (H) 32 07/13/2012 (H) 30 04/06/2012 22 - 29 Glucose Lvl 95 09/14/2012 105 08/27/2012 70 07/13/2012 76 04/06/2012 Creatinine (mg/dL) (L) 0.8 09/14/2012 0.9 08/27/2012 (L) 0.8 07/13/2012 (L) 0.8 04/06/2012 0.9 - 1.4 EGFR (MDRD) (mL/min) >60 09/14/2012 >60 08/27/2012 >60 07/13/2012 >60 04/06/2012 EGFR (MDRD) (mL/min) >60 09/14/2012 >60 08/27/2012 >60 07/13/2012 >60 04/06/2012 BUN (mg/dL) 20 09/14/2012 18 08/27/2012 23 07/13/2012 19 04/06/2012 7 - 23 Calcium Lvl (mg/dL) 9.9 09/14/2012 9.8 08/27/2012 9.6 07/13/2012 9.9 04/06/2012 8.5 - 10.5 Sincerely, PHUNT [address] [address] [place] [address] Electronic Signature Electronically Signed By: RILEY SANCHEZ MD On: 14 Sep 2012 This document has images extracted. Source: [facility] POWERCHART Document Id: [id number] Electronically signed by Rivka [facility] Final Inspector Shuttle [id number] at 10/02/2016 3:22 AM CDT documented in this encounter Plan of Treatment Upcoming Encounters Date Type Specialty Care Team Description 04/12/2022 Office Visit Cardiovascular Disease Simone Gooden AP RN, C.N.P. [address] [phone] (Wo rk) documented as of this encounter Procedures Procedure Name Priority Date/Time Associated Diagnosis Comme nts BASIC METABOLIC Routine 09/14/2012 9:35 AM Result s for this PANEL, S/P CDT procedure are i n the results section. documented in this encounter Results (ABNORMAL) BMP (Basic Metabolic Panel) (09/14/2012 9:35 AM CDT) P athologist Signature BUN (Blood Urea 20 7 - 23 POWERCHART Nitrogen), S MGDL Creatinine 0.8 (L) 0.9 - 1.4 POWERCHART MGDL Glucose 95 POWERCHART Potassium, S 4.4 3.5 - 4.8 POWERCHART MMOLL Sodium, S 143 135 - 145 POWERCHART MMOLL Chloride, S 103 100 - 108 POWERCHART MMOLL CO2 Total 31 (H) 22 - 29 POWERCHART MMOLL Calcium, Total, 9.9 8.5 - 10.5 POWERCHART S MGDL eGFR >60 MLMIN POWERCHART Black/ HXeGFR (MDRD) >60 MLMIN POWERCHART Specimen (Source) Anatomical Collection Method Collection Time Re ceived Time Location / / Volume Laterality Blood 09/14/2012 9:35 AM CDT Riley Sanchez M.D. LAB BLOOD ADD-ON Performing Organization Address City/State/ZIP Code Phon e Number POWERCHART documented in this encounter Visit Diagnoses Not on filedocumented in this encounter
--- OUTSIDE RECORDS SUMMARY | 2022-03-29 07:58 | XMS_ITS | Encounter Summary ---
:1950 Author Organization [facility] Address [address] [place] [address] Care Team Providers Name Role Phone Unavailable Primary Care Provider Unavailable Encounter Details Date Type Department Care Team Description 01/25/2013 Hospital Encounter HX [facility] Tamika Camejo M.D. [address] [place] [phone] (Wo rk) Social History Tobacco [...] How often do you attend baptism or christianity services? 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 - 01/25/2013 9:31 AM CDT [id number] CHIEF COMPLAINT / REASON FOR VISIT CYSTOSCOPY [...] further BCG. His last cystoscopy was on 10/07/11 and urine cytology and FISH studies were negative. His most recent PSA was 1.7 ng/mL, which was from 12/10/12. He presents today for a follow-up cystoscopy. Hedenies any hematuria or dysuria. He denies any sense of incomplete bladder emptying, needing to urinate less than 2 hours after voiding, or experiencing an intermittent stream. He also denies experiencing difficulty postponing urination, experiencing a weak stream, or experiencing the need to strain to initiate urination. He experiences nocturia averaging 2 times per night. Today, his total AUA symptom score is 2, and he is satisfied with his urinary condition. INSTRUMENT Olympus flexible cystoscope. ANESTHESIA 2% aqueous [...] evidence of stones, or other foreign bodies. There were three, 1 cm lesions on the right lateral wall, and one, 1cm lesion on the left wall which are suspicious for transitional cell carcinoma in situ. COMMENTS The procedure was well tolerated by the patient. He was discharged from the office in satisfactory condition. Post-cystoscopy instructions were reviewed with him. IMPRESSION / REPORT / PLAN 1. Possible recurrent bladder cancer. PLAN: Due to the concerning lesions within the patient's bladder, I recommend performing a biopsy of the suspicious areas. The patient was notified that this will be performed in the operating room. The risks/benefits of the procedure were discussed with the patient, including the chance of infection, and the chance that we may leave a catheter in place for a few days following the procedure. He was notified that he will be given an antibiotic to take following the procedure. A urine sample was collected today, which will be sent for cytology and urothelial fluorescence in situ hybridization studies. Thepatient was instructed to drink excess fluid for the remainder of the day. This document serves as a record of services personally performed by Dr. Tamika Camejo. It was created on his behalf by Narinder Malagon, a trained medical recruiter. The creation of this record is based on the scribe's personal observations and the provider's statements to him. This document has been checked and approved by the attending provider. Tamika Camejo M.D./catherine cc: Riley Sanchez M.D. Electronically Signed By: TAMIKA CAMEJO MD On: 01/26/2013 11:40 AM Source: [facility] MHSDOLBEYNONRADSYS Document Id: [id number] documented in this encounter Miscellaneous Notes Miscellaneous - Delaney Baer P.A.-C. - 01/27/2013 5:28 PM CDT Results Notification Document Contains Addenda Addendum by PRUDENCIO LOVE on 28 January 2013 18:14:43 CDT Patient notified by phone of results. From: DELANEY BAER To: Urology Nurse; Sent: 01/27/2013 17:28:37 CDT ! Show up: 01/27/2013 22:28:37 [facility] Subject: Results Notification Actions: Notify patient of results Reminder Comments: Negative Results: Date Result Name Value 01/25/2013 10:04 UroCancer Cnslt-[place] Raphael Wilson MD 01/25/2013 10:04 UroCancer Intrp-[facility] See Comment 01/25/2013 10:04 UroCancer Method-Mas See Comment 01/25/2013 10:04 UroCancer OrdDt-[facility] See Comment 01/25/2013 10:04 UroCancer RptDt-Mas See Comment 01/25/2013 10:04 UroCancer Rslt-Mas Negative. 01/25/2013 10:04 UroCancer Rsn-[facility] See Comment 01/25/2013 10:04 UroCancer Spec-Mas Urine 01/25/2013 10:04 UroCancer SpecID-[place] [id number] 01/25/2013 10:04 Spec Desc-[place] See Comment 01/25/2013 10:04 Cyto U Accn-[place] [id number] 01/25/2013 10:04 Cyto U FnlDiag-[place] See Comment 01/25/2013 10:04 Cyto U Sng Path-[place] See Comment Source: [facility] POWERCHART Document Id: [id number] Electronically signed by Rivka [facility] Necktie Operator Pockets [employer] Pieces [id number] at 10/02/2016 7:40 PM CDT Miscellaneous - Tamika Camejo M.D. - 01/25/2013 10:21 AM CDT Ambulatory Patient Summary [facility] [address] [place] [address] Visit Information Name: SEVEN SALAZAR [facility] Number: [id number] Current Date: 01/25/2013 10:21:46 Physicians Attending Provider: TAMIKA CAMEJO MD Primary [...] Riley Sanchez MD Your Goals/Additional instructions: Source: [facility] POWERCHART Document Id: [id number] Miscellaneous - Tamika Camejo M.D. - 01/25/2013 10:21 AM CDT Ambulatory Depart Summary [facility] [address] [place] [address] Visit Information Name: CHRISSEVEN PARSONS FABRICE [facility] Number: [id number] Visit Date: 01/25/2013 10:21:45 Attending Provider: TAMIKA CAMEJO MD Primary Care [...] your provider for clarification. Additional Information: Source: [facility] VDI Space Document Id: [id number] Miscellaneous - Prudencio Love, L.P.N. - 01/25/2013 9:43 AM CDT Urology AUA/BPH Symptom Score Urology AUA/BPH Symptom Score Entered On: 01/25/2013 9:43 CDT Performed On: 01/25/2013 9:43 CDT by PRUDENCIO LOVE Urology AUA/BPH Symptom Score Emptying Bladder After Urinating : Not at all Urinate 2 Hours After Urinating : Not at all Stop/Start Again When Urinating : Not at all Difficult to Postpone Urination : Not at all Weak Urinary Stream : Not at all Push/Strain to Begin Urination : Not at all Up to Urinate at Night : 2 times Total Symptom Score : 2 Feel About Urinary Condition : Satisfied PRUDENCIO LOVE - 01/25/2013 9:43 CDT [facility] Document Id: [id number] CDT!11 Miscellaneous - Prudencio Love, L.P.N. - 01/25/2013 9:40 AM CDT Adult Public Health Technologist Intake/History Adult Public Health Technologist Intake/History Entered On: 01/25/2013 9:42 CDT Performed On: 01/25/2013 9:40 CDT by PRUDENCIO LOVE Intake Peripheral Pulse Rate : 84 /min Heart Rhythm : Regular PRUDENCIO LOVE - 01/25/2013 10:02 CDT Chief Complaint : cystoscopy Temperature Core : 36.8 DegC(Converted to: 98.2 DegF) Systolic Blood Pressure : 138 mmHg Diastolic Blood Pressure : 82 mmHg NIBP Mean : 101 mmHg BP Location : Right upper extremity Blood Pressure Cuff Size : Regular PRUDENCIO LOVE - 01/25/2013 9:40 CDT General Info Information Given By : Patient Preferred Communication Mode : Verbal Languages : Bulgarian PRUDENCIO LOVE - 01/25/2013 9:40 CDT Subjective Pain Symptoms : No PRUDENCIO LOVE - 01/25/2013 9:40 CDT Dependent Habits Tobacco Use/Currently Using : Yes Tobacco Use/Advised to Quit : Yes Exposure to Tobacco Smoke : Patient smokes Smoking Status : Current every day smoker PRUDENCIO LOVE - 01/25/2013 9:40 CDT Tobacco Use Grid Type : Cigarettes Cigarette Use Packs/Day : 0.5 Last Use : today PRUDENCIO LOVE - 01/25/2013 9:40 CDT Caffeine Use Grid Caffeine Use : Current Type : Coffee, Tea Frequency : Daily Amount : 2 cup coffee/2 tea daily PRUDENCIO LOVE - 01/25/2013 9:40 CDT Recreational Drug Use Grid Drug Use : None PRUDENCIO LOVE - 01/25/2013 9:40 CDT Source: [facility] POWERCHART Document Id: [id number] CDT!4 documented in this encounter Plan of Treatment Upcoming Encounters Date Type Specialty Care Team Description 04/12/2022 Office Visit Cardiovascular Disease Simone Gooden AP RN, C.N.P. [address] [phone] (Wo rk) documented as of this encounter Procedures Procedure Name Priority Date/Time Associated Diagnosis Comme nts UROVYSION (R) FOR Routine 01/25/2013 10:04 AM Res ults for this BLADDER CANCER CDT procedure are in the results section. CYTOLOGY, U Routine 01/25/2013 10:04 AM Results for this CDT procedure are i n the results section. documented in this encounter Results Cytology, Urine (01/25/2013 10:04 AM CDT) [facility] Method Time Signature HX Spec See Comment POWERCHART [facility] Comment: RESULT: A. ??Urine, NOS: ??Received 50cc of yellow urine in PreservCyt Test Performed by: [place] [address] Rn Supplemental: Cem cali III, M.D. Specimen (Source) Anatomical Collection Method Collection Time Re ceived Time Location / / Volume Laterality Urine 01/25/2013 10:04 AM CDT Tamika Camejo M.D. 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 HXUroCancer [facility] See Comment POWERCH ART Comment: RESULT: Rule out urothelial car cinoma HXUroCancer [facility] Negative. POWERCHA RT [facility] See Comment POWER CHART Comment: No evidence [...] urinary tract specimens, the results were negative ??on [id number] , negative on 07OCT2011, negative on 25FEB2011, negati ve on 08OCT2010, and negative on 02JUL2010. HXUroCancer [facility]ns[facility] Raphael MARLEY RCHART HXUroCancer RptDt-[place] See Comment POWER CHART Comment: RESULT: 27 Jan 2013 16:13 Test Performed by: [place] [address] Rn Supplemental: Cem cali III, M.D. Specimen (Source) Anatomical Collection Method Collection Time Re ceived Time Location / / Volume Laterality Urine 01/25/2013 10:04 AM CDT Tamika Camejo M.D. LAB GENETIC TESTING Performing Organization Address City/State/ZIP Code Phon e Number POWERCHART documented in this encounter Visit Diagnoses Not on filedocumented in this encounter Additional Health Concerns Assessment Noted Time PHQ-9 Depression Total Score: 12 12/10/2012 8:45 AM CD T documented as of this encounter
--- OUTSIDE RECORDS SUMMARY | 2022-03-29 07:58 | XMS_ITS | Encounter Summary ---
:1950 Author Organization [facility] Address [address] [place] [address] Care Team Providers Name Role Phone Unavailable Primary Care Provider Unavailable Encounter Details Date Type Department Care Team Description 11/22/2011 Hospital Encounter [facility] Riley Jimenez M.D. 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 - 11/22/2011 12:00 AM CDT [id number] CHIEF COMPLAINT/REASON FOR VISIT 1. Nausea, vomiting with diarrhea 2. Lightheadedness with syncope. 3. Neck pain. HISTORY OF PRESENT ILLNESS This is a 61-year-old man who came in today for above complaints. Last Friday he had nausea, vomiting, diarrhea. It was severe he could not eat or drink. He was feeling weak and lightheaded. He noticedconcentrated urine, nausea, vomiting, diarrhea were resolved by Friday, but he fell and he passed out. He lives alone. He believes he had passed out probably an hour or so patient is weak, lethargic he missed work because of nausea, vomiting and feeling weak. Now he has been eating. He no longer hasnausea, vomiting. He does not have diarrhea at all. Patient is complaining of pain in the neck but there was no headache, blurred vision, double vision, change in vision. He feels slight spongy in his h ead there was no weakness in extremities. There is no symptoms and signs suggestive for cerebrovascular accident. According to the patient he was in the kitchen he hit right side of the head with the kitchen door. There was no palpitations, skipping heartbeats before he passed out. He called my office yesterday, advised him to go to emergency room if he continues to have a problem. Patient decided tocome in today he did not go to emergency room because he no longer has nausea, vomiting, diarrhea. CURRENT MEDICATIONS Reviewed and updated as per [...] No distress. Able to talk without interruption. No slurred speech. HEAD: No facial rash, asymmetry or sinus tenderness. EYES: PERRLA. EOMI. No pallor, icterus or conjunctivitis No nystagmus. ENT: No nasal congestion, discharge or bleeding. [...] 2+ DTRs throughout. Equal on both sides. Normal finger-nose test. Negative Romberg. Able to do tandem walk. IMPRESSION/REPORT/PLAN 1. Nausea, vomiting with diarrhea, which is resolved. Most likely he has acute gastroenteritis, probably viral illness. There is no acute abdomen clinically. Advised him to drink plenty of fluids to replace fluid loss. Basic metabolic profile was unremarkable except for slightly low chloride, 95. Estimated GFR was more than 60. 2. Syncope. Most likely due to dehydration caused by acute gastroenteritis. Because of head injury patient was referred to [facility] to get immediate head CT scan without contrast. According to radiologist there was no definite acute intracranial abnormalities. I discussed with patient about his CT scans results. Patient is stable from neurological standpoint. Probably he has a concussion. It should be gradually getting better. 3. Neck pain. There is no radicular symptom. X-ray of cervical spine was obtained, which showed degenerative changes. There was no radiographic evidence of acute pathology per radiologist. Advised him to take pain medications as needed. 4. Work excuse. He missed his work because of recent illness. He was given work excuse yesterday andtoday. He may return to work tomorrow November 23, 2011 if he continues to feel better. 5. Upcoming esophagogastroduodenoscopy and colonoscopy. He is scheduled to have esophagogastroduodenoscopy and colonoscopy at [facility] on November 26, 2011. Will contact Dr. Lieberman office to give him IV fluids before and during endoscopy exam to prevent dehydration from bowel preparation. He needs normal saline IV total of 1 liter. I also sent a message to Dr. Lieberman regarding IV hydration All of his questions were answered. Today's study: Complete blood count, basic metabolic profile, cervical spine x- ray and head CT scan Return to clinic as previously scheduled on December 02, 2011 Time spent 40 minutes, more than half the time is for counseling, coordination of care, reviewing test results and answering his questions. Riley Sanchez M.D./francisco javier Electronically Signed By: RILEY SANCHEZ MD On: 12/04/2011 11:38 AM Modified by and Electronically Signed by: RILEY SANCHEZ MD On: 12/04/2011 11:38 AM Source: [facility] [email or web address] Document Id: [id number] documented in this encounter Miscellaneous Notes Miscellaneous - Riley Sanchez M.D. - 11/22/2011 2:34 PM CDT Ambulatory Patient Summary [address] [id number] Visit Information Name: SEVEN SALAZAR Current Date: 11/22/2011 14:34:03 Physicians Attending Provider: RILEY SANCHEZ MD Primary Care Provider: RILEY SANCHEZ MD Your Medications Here is a list of your medications. It is important to take your medications as directed. Use a pillbox or chart to help remind you to take your medications. Please let your doctor or nurse know if you have problems taking your medications. Medication/Strength Dose Route Frequency Indications/Special Instructions/Comments magnesium citrate (magnesium citrate 1.745 g/30 mL oral liquid) 17.45 gm Oral once 4 hours before your procedure, drink the contents of this bottle with 10 ounces of water. polyethylene glycol 3350 with electrolytes (MiraLax 100% oral powder) See Instructions Mix 1 bottle (238 grams) with 64 ounces of Gatorade in a pitcher. Drink an 8 ounce glass of solution every 15 mineutes until all the solution is gone. bisacodyl (bisacodyl 5 mg oral delayed release tablet) 10 mg Oral once Take 2 tablets orally [id number] noon and 4 pm with an 8 ounce glass of water. Take these before you start the Miralax and Gatorade mixture. ipratropium-albuterol (Combivent 18 mcg-103 mcg/inh inhalation aerosol [...] Upcoming Appointments Date Time Location Reason Provider 11/26/2011 15:30 [facility] fell may have concussion Riley Sanchez MD 12/02/2011 09:40 [facility] Follow up after consult with Dr. Lieberman & Orthopedic Riley Sanchez MD 04/13/2012 11:00 [facility] 6 months follow up Jatinder Camejo MD Your Goals/Additional instructions: Source: [facility] POWERCHART Document Id: [id number] Miscellaneous - Riley Sanchez M.D. - 11/22/2011 2:34 PM CDT Ambulatory Depart Summary [address] [address] Visit Information Name: SEVEN SALAZAR Visit Date: 11/22/2011 14:34:03 Attending Provider: RILEY SANCHEZ MD Primary Care [...] medications. Medication/Strength Dose Route Frequency Indications/Special Instructions/Comments magnesium citrate (magnesium citrate 1.745 g/30 mL oral liquid) 17.45 gm Oral once 4 hours before your procedure, drink the contents of this bottle with 10 ounces of water. polyethylene glycol 3350 with electrolytes (MiraLax 100% oral powder) See Instructions Mix 1 bottle (238 grams) with 64 ounces of Gatorade in a pitcher. Drink an 8 ounce glass of solution every 15 mineutes until all the solution is gone. bisacodyl (bisacodyl 5 mg oral delayed release tablet) 10 mg Oral once Take 2 tablets orally [id number] noon and 4 pm with an 8 ounce glass of water. Take these before you start the Miralax and Gatorade mixture. ipratropium-albuterol (Combivent 18 mcg-103 mcg/inh inhalation aerosol [...] your provider for clarification. Additional Information: Source: [facility] Amp'd Mobile Document Id: [id number] Riley Rangel M.D. - 11/22/2011 2:32 PM CDT School or Work Excuse School or Work Excuse Entered On: 11/22/2011 14:33 CDT Performed On: 11/22/2011 14:32 CDT by RILEY SANCHEZ MD School or Work Excuse Date Patient Seen : 11/22/2011 CDT School or Work Restrictions : Other: Work excuse for 11/21/2011 & 11/22/2011. Date of Return to School/Work Without Restrictions : 11/23/2011 CDT RILEY SANCHEZ MD - 11/22/2011 14:32 CDT [facility] Document Id: [id number] Riley Rangel M.D. - 11/22/2011 12:24 PM CDT Results Notification Document Contains Addenda Addendum by BARB GILL LPN on 10 December 2011 17:33:59 CDT mailed From: RILEY SANCHEZ MD To: BARB GILL LPN Sent: 11/22/2011 12:24:46 CDT ! Show up: 11/22/2011 17:24:46 [facility] Subject: Results Notification Actions: Notify patient of results Source: [facility] POWERCHART Document Id: [id number] Electronically signed by Conversion, [employer] [facility] [employer] [facility] [employer] Director [id number] at 10/05/2016 8:06 PM CDT Miscellaneous - Conversion, Historical Provider Ser - 11/22/2011 11:01 AM CDT Adult Stacker Intake/History Adult Stacker Intake/History Entered On: 11/22/2011 11:06 CDT Performed On: 11/22/2011 11:01 CDT by BARB GILL LPN Intake Chief Complaint : lightheaded , hit his head last week when he passed out. been weak and lethargic,. tipsy when he walks, head feels like sponge inside. Onset of Symptoms : since last Friday. Temperature Core : 37C(Converted to: 98.6DegF) Peripheral Pulse Rate : 84/min Respiratory Rate : 20/min Heart Rhythm : Regular Systolic Blood Pressure : 112mmHg Diastolic Blood Pressure : 68mmHg NIBP Mean : 83mmHg BP Location : Right upper extremity Blood Pressure Cuff Size : Large Actual Weight : 95kg(Converted to: 209lb 7oz) Dosing Weight Clinic : 95.00kg BARB GILL LPN - 11/22/2011 11:01 CDT Subjective Pain Symptoms : No BARB GILL LPN - 11/22/2011 11:01 CDT Dependent Habits Tobacco Use/Currently Using : Yes Tobacco Use/Advised to Quit : Yes Exposure to Tobacco Smoke : Patient smokes Smoking Status : Current every day smoker BARB GILL LPN - 11/22/2011 11:01 CDT Tobacco Use Grid Type : Cigarettes Cigarette Use Packs/Day : 0.5 Last Use : today BARB GILL LPN - 11/22/2011 11:01 CDT Caffeine Use Grid Caffeine Use : Current Type : Coffee, Tea Frequency : Daily Amount : 2 cup/day Last Use : today BARB GILL [employer] JOURNEY[employer] - 11/22/2011 11:01 CDT Recreational Drug Use Grid Drug Use : None BARB GILL [facility] - 11/22/2011 11:01 CDT Allergy Allergies (Active) NKA Estimated Onset Date: Unspecified ; Created By: SARAI NIXON; Reaction Status: Active ; Category:Drug ; Substance: NKA ; Type: Allergy ; Updated By: SARAI NIXON; Reviewed Date: 11/22/2011 10:59 CDT Source: [facility] POWERCHART Document Id: [id number] documented in this encounter Plan of Treatment Upcoming Encounters Date Type Specialty Care Team Description 04/12/2022 Office Visit Cardiovascular Disease Simone Gooden AP RN, C.N.P. [address] [phone] (Wo rk) documented as of this encounter Procedures Procedure Name Priority Date/Time Associated Diagnosis Comme nts AUTOMATED Routine 11/22/2011 11:48 AM Results for this DIFFERENTIAL, B CDT procedure ar e in the results section. CBC WITH Routine 11/22/2011 11:48 AM Results for this DIFFERENTIAL, B CDT procedure ar e in the results section. BASIC METABOLIC Routine 11/22/2011 11:48 AM Resul ts for this PANEL, S/P CDT procedure are i n the results section. DX CERVICAL SPINE Routine 11/22/2011 11:28 AM Res ults for this 2-3 VIEWS CDT procedure are i n the results section. documented in this encounter Results Automated Differential (11/22/2011 11:48 AM CDT) P athologist Signature Neutro % 58.0 34.0 - 67.9 POWERCHART Lymphocytes % 27.2 21.8 - 53.1 POWERCHART HX Marshall % 10.5 5.3 - 12.2 POWERCHART HX Eos % 3.9 0.8 - 7.0 POWERCHART HX Baso % 0.4 0.2 - 1.2 POWERCHART Specimen Anatomical Collection Method Collection Time Receive d Time (Source) Location / / Volume Laterality Blood 11/22/2011 11:48 11/22/2011 AM CDT 11:48 AM CDT Riley Padilla.D. LAB BLOOD ADD-ON Performing Organization Address City/State/ZIP Code Phon e Number POWERCHART (ABNORMAL) CBC with Differential (11/22/2011 11:48 AM CDT) Patholo gist Method Time Signature Leukocytes 11.3 (H) 3.5 - 10.5 POWERCHART X109L Erythrocytes 5.24 4.32 - POWERCHART 5.72 U2611H Hemoglobin 15.9 13.5 - POWERCHART 17.5 GDL Hematocrit 44.3 38.8 - POWERCHART 50.0 MCV 84.5 81.0 - POWERCHART 95.0 FL Platelet Count 373 150 - 450 POWERCHART X109L HX RDW 13.6 11.8 - POWERCHART 15.6 HXDifferential? Auto POWERCHART Specimen (Source) Anatomical Collection Method Collection Time Re ceived Time Location / / Volume Laterality Blood 11/22/2011 11:48 AM CDT Riley Sanchez M.D. LAB BLOOD ADD-ON Performing Organization Address City/State/ZIP Code Phon e Number POWERCHART (ABNORMAL) BMP (Basic Metabolic Panel) (11/22/2011 11:48 AM CDT) P athologist Signature BUN (Blood Urea 22 7 - 23 POWERCHART Nitrogen), S MGDL Creatinine 0.9 0.9 - 1.4 POWERCHART MGDL Glucose 93 POWERCHART Potassium, S 4.2 3.5 - 4.8 POWERCHART MMOLL Sodium, S 135 135 - 145 POWERCHART MMOLL Chloride, S 95 (L) 100 - 108 POWERCHART MMOLL CO2 Total 26 22 - 29 POWERCHART MMOLL Calcium, Total, 10.1 8.5 - 10.5 POWERCHART S MGDL BUN/Creatinine 24 POWERCHART Ratio HXeGFR (MDRD) >60 MLMIN POWERCHART eGFR >60 MLMIN POWERCHART Black/ Specimen (Source) Anatomical Collection Method Collection Time Re ceived Time Location / / Volume Laterality Blood 11/22/2011 11:48 AM CDT Phunt Phyo M.D. LAB BLOOD ADD-ON Performing Organization Address City/State/ZIP Code Phon e Number POWERCHART DX Cervical Spine 2-3 Views (11/22/2011 11:28 AM CDT) Anatomical Region Laterality Modality Cervical Spine N/A Radiographic Imaging Specimen (Source) Anatomical Collection Method Collection Time Re ceived Time Location / / Volume Laterality 11/22/2011 11:28 AM CDT Addenda Addendum by Provider, Javid Samson 11/22/2011 11:28 AM CDT RAD^^^OW XR Cervical Spine 2 or 3 views 11/22/2011 11:28:00 Narrative 11/22/2011 12:09 PM CDT Technique: 3 views of the cervical spine were obtained and were compared with cervical spine x-ray dated 02/12/2010. Findings: There is mild straightening of the cervical lordosis, positional versus muscle spasm. The vert ebral body heights are maintained, stable. Again seen is modera te intervertebral disc space narrowing involving C5-6 and C6-7 associ ated with anterior osteophyte formations. The posterior elements are u nremarkable. The prevertebral soft tissue is unremarkable. Impression: No radiographic evidence of acute pathol ogy. Degenerative changes at C5-C7 seen. Procedure Note Boo Saavedra M.D. / Provider, Pia virgen M.D. - 09/25/2016 Technique: 3 views of the cervical spine were obtained and were compared with cervical spine x-ray dated 02/12/2010. Findings: There is mild straightening of the cervical lordosis, positional versus muscle spasm. The vert ebral body heights are maintained, stable. Again seen is modera te intervertebral disc space narrowing involving C5-6 and C6-7 associ ated with anterior osteophyte formations. The posterior elements are u nremarkable. The prevertebral soft tissue is unremarkable. Impression: No radiographic evidence of acute pathol ogy. Degenerative changes at C5-C7 seen. Historical Provider IMG DIAGNOSTIC IMAGING PROCE DURES documented in this encounter Visit Diagnoses Not on filedocumented in this encounter
--- OUTSIDE RECORDS SUMMARY | 2022-03-29 07:58 | XMS_ITS | Encounter Summary ---
:1950 Author Organization [facility] Address [address] [place] [address] Care Team Providers Name Role Phone Unavailable Primary Care Provider Unavailable Encounter Details Date Type Department Care Team Description 03/05/2012 Hospital Encounter [facility]X [facility] Riley Sanchez M.D. 1518 [facility] [address] [phone] Social History Tobacco Use Types Packs/Day [...] How often do you attend samaritan or confucianist services? 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 - 03/06/2012 8:48 AM CDT Results Notification Document Contains Addenda Addendum by CLEO MAJOR LPN on 06 March 2012 09:32:41 CDT Patient returning 03-09-12. From: RILEY SANCHEZ MD To: BARB GILL LPN Sent: 03/06/2012 08:48:36 CDT ! Show up: 03/06/2012 13:48:36 [facility] Subject: Results Notification Actions: Notify patient of results Source: [facility] POWERCHART Document Id: [id number] Electronically signed by Conversion, [facility] Coil Cutter [id number] at 10/05/2016 6:24 PM CDT Miscellaneous - Riley Sanchez M.D. - 03/05/2012 9:11 AM CDT Results Notification Document Contains Addenda Addendum by BARB GILL LPN on 05 March 2012 13:57:52 CDT mailed From: RILEY SANCHEZ MD To: BARB GILL LPN Sent: 03/05/2012 09:11:42 CDT ! Show up: 03/05/2012 14:11:41 [facility] Subject: Results Notification Actions: Notify patient of results Source: [facility] POWERCHART Document Id: [id number] Electronically signed by Conversion, [facility] Coil Cutter [id number] at 10/05/2016 6:24 PM CDT documented in this encounter Plan of Treatment Upcoming Encounters Date Type Specialty Care Team Description 04/12/2022 Office Visit Cardiovascular Disease Simone Gooden AP RN, C.N.P. [address] [place] [phone] (Wo rk) documented as of this encounter Procedures Procedure Name Priority Date/Time Associated Comments Diagnosis AUTOMATED Routine 03/05/2012 7:05 AM Results f or this DIFFERENTIAL, B CDT procedure ar e in the results section. SEDIMENTATION RATE, B Routine 03/05/2012 7:05 AM Results for this CDT procedure are i n the results section. CBC WITH DIFFERENTIAL, Routine 03/05/2012 7:05 AM Results for this B CDT procedure are i n the results section. C-REACTIVE PROTEIN Routine 03/05/2012 7:05 AM Res ults for this (CRP), S/P CDT procedure are i n the results section. BASIC METABOLIC PANEL, Routine 03/05/2012 7:05 AM Results for this S/P CDT procedure are i n the results section. documented in this encounter Results Automated Differential (03/05/2012 7:05 AM CDT) P athologist Signature Neutro % 62.1 34.0 - 67.9 POWERCHART Lymphocytes % 24.4 21.8 - 53.1 POWERCHART HX Franklin % 10.2 5.3 - 12.2 POWERCHART HX Eos % 3.0 0.8 - 7.0 POWERCHART HX Baso % 0.3 0.2 - 1.2 POWERCHART Specimen Anatomical Collection Method Collection Time Receive d Time (Source) Location / / Volume Laterality Blood 03/05/2012 7:05 AM 2 7:05 CDT AM CDT Riley Sanchez M.D. LAB BLOOD ADD-ON Performing Organization Address City/State/ZIP Code Phon e Number POWERCHART Sedimentation Rate (03/05/2012 7:05 AM CDT) Analysis Performed At Patho logist Time Signature Sedimentation 8 0 - 22 POWERCHART Rate, B MMHR Specimen (Source) Anatomical Collection Method Collection Time Re ceived Time Location / / Volume Laterality Blood 03/05/2012 7:05 AM CDT Riley Sanchez M.D. LAB BLOOD ADD-ON Performing Organization Address City/State/ZIP Code Phon e Number POWERCHART (ABNORMAL) CBC with Differential (03/05/2012 7:05 AM CDT) Patholo gist Method Time Signature Leukocytes 10.9 (H) 3.5 - 10.5 POWERCHART X109L Erythrocytes 5.28 4.32 - POWERCHART 5.72 [id number] Hemoglobin 15.6 13.5 - POWERCHART 17.5 GDL Hematocrit 45.3 38.8 - POWERCHART 50.0 MCV 85.8 81.0 - POWERCHART 95.0 FL Platelet Count 257 150 - 450 POWERCHART X109L HX RDW 14.7 11.8 - POWERCHART 15.6 HXDifferential? Auto POWERCHART Specimen (Source) Anatomical Collection Method Collection Time Re ceived Time Location / / Volume Laterality Blood 03/05/2012 7:05 AM CDT Riley Sanchez M.D. LAB BLOOD ADD-ON Performing Organization Address City/[facility]/ZIP Code Phon e Number POWERCHART (ABNORMAL) CRP (C-Reactive Protein) (03/05/2012 7:05 AM CDT) athologist Signature C-Reactive 17.0 (H) <=8.0 MGL POWERCHART Protein (CRP), S Comment: Test Performed by: [place] [address] Automotive Service Advisor: Cem cali III, M.D. Specimen (Source) Anatomical Collection Method Collection Time Re ceived Time Location / / Volume Laterality Blood 03/05/2012 7:05 AM CDT Riley Sanchez M.D. LAB BLOOD ADD-ON Performing Organization Address City/[facility] Code Phon e Number POWERCHART (ABNORMAL) BMP (Basic Metabolic Panel) (03/05/2012 7:05 AM CDT) athologist Signature BUN (Blood Urea 13 7 - 23 POWERCHART Nitrogen), S MGDL Creatinine 0.8 (L) 0.9 - 1.4 POWERCHART MGDL Glucose 107 POWERCHART Potassium, S 4.3 3.5 - 4.8 POWERCHART MMOLL Sodium, S 142 135 - 145 POWERCHART MMOLL Chloride, S 99 (L) 100 - 108 POWERCHART MMOLL CO2 Total 32 (H) 22 - 29 POWERCHART MMOLL Calcium, Total, 9.8 8.5 - 10.5 POWERCHART S MGDL BUN/Creatinine 16 POWERCHART Ratio HXeGFR (MDRD) >60 MLMIN POWERCHART eGFR >60 MLMIN POWERCHART Black/ Specimen (Source) Anatomical Collection Method Collection Time Re ceived Time Location / / Volume Laterality Blood 03/05/2012 7:05 AM CDT [facility] LAB BLOOD ADD-ON Performing Organization Address City/[facility]/ZIP Code Phon e Number POWERCHART documented in this encounter Visit Diagnoses Not on filedocumented in this encounter
--- OUTSIDE RECORDS SUMMARY | 2022-03-29 07:58 | XMS_ITS | Encounter Summary ---
:1950 Author Organization [facility] Address [address] [place] [address] Care Team Providers Name Role Phone Unavailable Primary Care Provider Unavailable Encounter Details Date Type Department Care Team Description 11/26/2011 Hospital Encounter HX NO MAPPING Ivan Lieberman M. D. Social History Tobacco Use Types Packs/Day Years [...] How often do you attend taoism or latter day services? Never 04/16/2019 Do [...] at Date Recorded Male 06/28/2019 8:47 AM K [employer] documented as of this encounter Plan of Treatment Upcoming Encounters Date Type Specialty Care Team Description 04/12/2022 Office Visit Cardiovascular Disease Simone Gooden AP RN, C.N.P. [address] [phone] (Wo rk) documented as of this encounter Visit Diagnoses Not on filedocumented in this encounter
--- OUTSIDE RECORDS SUMMARY | 2022-03-29 07:58 | XMS_ITS | Encounter Summary ---
:1950 Author Organization [facility] Address [address] [place] [address] Care Team Providers Name Role Phone Unavailable Primary Care Provider Unavailable Encounter Details Date Type Department Care Team Description 04/06/2012 Hospital Encounter HX [facility] FB Riley Jimenez M.D. [address] [facility], [facility] [address] [phone] Social History Tobacco Use Types Packs/Day [...] How often do you attend restorationism or islam services? Never 04/16/2019 Do you [...] at Date Recorded Male 06/28/2019 8:47 AM ORAL HEALTH THERAPIST documented as of this encounter Last Filed Vital Signs Vital Sign Reading Time Taken Comments Blood Pressure 142/80 04/06/2012 2:51 PM ORAL HEALTH THERAPIST Pulse 80 04/06/2012 2:39 PM ORAL HEALTH THERAPIST Temperature - - Respiratory Rate - - Oxygen Saturation - - Inhaled Oxygen Concentration - - Weight 105 kg (231 lb 7.7 oz) 04/06/2012 2:39 PM ORAL HEALTH THERAPIST Height - - Body Mass Index 33.82 10/01/2011 10:06 AM CDT documented in this encounter Progress Notes Riley Sanchez M.D. - 04/06/2012 2:31 PM CST [id number] CHIEF COMPLAINT/REASON FOR VISIT Follow up. HISTORY OF PRESENT ILLNESS Mr. Salazar is a 62-year-old man who came in today for follow up. I saw him on February 04, 2012. He was started on prednisone because of arthralgia aches and pain with polymyalgia rheumatica. Since he has been on prednisone his symptoms have improved. He no longer has aches and pains. There were no arthralgias. He had blood test on March 05, 2012. Complete blood count remarkable for mild leukocytosis. Sedimentation rate was normal. C-reactive protein was high. Basic metabolic profile unremarkable. Patient was advised to continue prednisone. He has been taking prednisone without side effects. He sleeps better. There was no stomach upset. He has been eating since he has been on prednisone. Patient takes calcium with vitamin D along with multivitamin. He believes these medications are helping him. He joined [employer]. He has been going there at least three times now. There was no chest pain shortness of breath or decreased exercise tolerance. He has hypertension. He takes medication regularly. There were no side effects. Today, his blood pressure is slightly high. He does not use extra salt but he does not really watch his sodium intake. Advised him to cut back sodium in his diet. Sodium intake should be less than 2000 mg a day. CURRENT MEDICATIONS Reviewed and updated as per [...] talk without interruption. IMPRESSION/REPORT/PLAN 1. Polymyalgia rheumatica. His arthralgia aches and pain symptoms have improved with current dose ofprednisone. Sedimentation rate was normal although C- reactive protein was high. So far he does not have side effects from prednisone. He needs to make sure his calcium and vitamin D intake are adequate. He may continue regular exercise at [employer]. Will check sedimentation rate and C-reactive protein today. 2. Hypertension. Blood pressure is slightly high. Repeated blood pressure was 142/80. It could be partly due to salt and water retention from prednisone therapy. Advised him to cut back sodium in his diet which should be less than 2000 mg a day. He was given information about sodium. Advised him to come and check blood pressure in 7 to 10 days. 3. Leukocytosis. He does not have symptoms and signs suggestive for infection. It could be partly due to prednisone therapy. We need to check complete blood count. All of his questions were answered. Today's studies: Complete blood count, basic metabolic profile, sedimentation rate and C-reactive protein. Return to clinic in one month for follow up. He will be back in one week to check blood pressure. Riley Sanchez M.D./milagros Electronically Signed By: RILEY SANCHEZ MD On: 04/08/2012 04:59 PM Source: [facility] MHSDOLBEYNONRADSYS Document Id: [id number] HEALTH THERAPIST documented in this encounter Miscellaneous Notes Miscellaneous - Riley Sanchez M.D. - 04/07/2012 10:54 AM CST Results Notification Document Contains Addenda Addendum by BARB GILL LPN on 10 April 2012 17:02:45 ORAL HEALTH THERAPIST From: BRAB GILL LPN To: RILEY SANCHEZ MD; Sent: 04/10/2012 17:02:45 ORAL HEALTH THERAPIST Show up: 04/10/2012 17:02:00 ORAL HEALTH THERAPIST Subject: RE: Results Notification patient is notified and agreeable with this plan of care. Addendum by BARB GILL LPN on 07 April 2012 17:06:20 ORAL HEALTH THERAPIST msg left From: RILEY SANCHEZ MD To: BARB GILL LPN Sent: 04/07/2012 10:54:16 ORAL HEALTH THERAPIST ! Show up: 04/07/2012 16:54:16 [facility] Subject: Results Notification Actions: Notify patient of results Source: [facility] POWERCHART Document Id: [id number] Electronically signed by [facility], [facility] [employer] Car Loader [id number] at 10/06/2016 12:38 AM CDT Riley Rangel M.D. - 04/06/2012 4:11 PM CST Results Notification Document Contains Addenda Addendum by BARB GILL LPN on 10 April 2012 17:04:26 ORAL HEALTH THERAPIST notified Addendum by BARB GILL LPN on 07 April 2012 17:06:38 ORAL HEALTH THERAPIST msg left From: RILEY SANCHEZ MD To: BARB GILL LPN Sent: 04/06/2012 16:11:12 ORAL HEALTH THERAPIST ! Show up: 04/06/2012 22:11:12 [facility] Subject: Results Notification Actions: Notify patient of results Source: [facility] POWERCHART Document Id: [id number] Riley Rangel M.D. - 04/06/2012 2:57 PM CST Ambulatory Patient Summary [address] [address] Visit Information Name: [facility] Number: [id number] Current Date: 04/06/2012 14:57:42 Physicians Attending Provider: RILEY SANCHEZ MD Primary [...] Upcoming Appointments Date Time Location Reason Provider 05/04/2012 09:45 [facility] 6 months follow up Jatinder Camejo MD 05/04/2012 09:45 [facility] 6 months follow up/left message to reschedule Jatinder Camejo MD Your Goals/Additional instructions: Source: [facility] POWERCHART Document Id: [id number] HEALTH THERAPIST Miscellaneous - Riley Sanchez M.D. - 04/06/2012 2:57 PM CST Ambulatory Depart Summary [address] [address] Visit Information Name: [facility] Number: [id number] Visit Date: 04/06/2012 14:57:41 Attending Provider: RILEY SANCHEZ MD Primary Care [...] your provider for clarification. Additional Information: Source: [facility] [employer] Document Id: [id number] HEALTH THERAPIST Miscellaneous - Riley Sanchez M.D. - 04/06/2012 2:51 PM CST Ambulatory Vitals Height Weight Ambulatory Vitals Height Weight Entered On: 04/06/2012 14:54 ORAL HEALTH THERAPIST Performed On: 04/06/2012 14:51 ORAL HEALTH THERAPIST by RILEY SANCHEZ MD Vitals/Ht/Wt Systolic Blood Pressure : 142mmHg (HI) Diastolic Blood Pressure : 80mmHg NIBP Mean : 101mmHg BP Location : Left upper extremity Blood Pressure Cuff Size : Large RILEY SANCHEZ MD - 04/06/2012 14:51 ORAL HEALTH THERAPIST Source: [employer] Document Id: [id number] HEALTH THERAPIST Miscellaneous - Conversion, Historical Provider Ser - 04/06/2012 2:41 PM ORAL HEALTH THERAPIST Ambulatory Vitals Height Weight Ambulatory Vitals Height Weight Entered On: 04/06/2012 14:42 ORAL HEALTH THERAPIST Performed On: 04/06/2012 14:41 ORAL HEALTH THERAPIST by BARB GILL LPN Vitals/Ht/Wt Systolic Blood Pressure : 142mmHg (HI) Diastolic Blood Pressure : 88mmHg NIBP Mean : 106mmHg BP Location : Left upper extremity Blood Pressure Cuff Size : Large BARB GILL LPN - 04/06/2012 14:41 ORAL HEALTH THERAPIST [facility] Id: [id number] Miscellaneous - Conversion, Historical Provider Ser - 04/06/2012 2:39 PM ORAL HEALTH THERAPIST Adult School Bus Inspector Intake/History Adult School Bus Inspector Intake/History Entered On: 04/06/2012 14:41 ORAL HEALTH THERAPIST Performed On: 04/06/2012 14:39 ORAL HEALTH THERAPIST by BARB GILL LPN Intake Chief Complaint : follow up Temperature Core : 37.1C(Converted to: 98.8DegF) Peripheral Pulse Rate : 80/min Systolic Blood Pressure : 142mmHg (HI) Diastolic Blood Pressure : 88mmHg NIBP Mean : 106mmHg BP Location : Left upper extremity Blood Pressure Cuff Size : Large Actual Weight : 105kg(Converted to: 231lb 8oz) Weight Source : Standing scale Dosing Weight Clinic : 105.00kg BARB GILL LPN - 04/06/2012 14:39 ORAL HEALTH THERAPIST Subjective Pain Symptoms : No BARB GILL LPN - 04/06/2012 14:39 ORAL HEALTH THERAPIST Dependent Habits Tobacco Use/Currently Using : Yes Tobacco Use/Advised to Quit : Yes Exposure to Tobacco Smoke : Patient smokes Smoking Status : Current every day smoker BARB GILL LPN - 04/06/2012 14:39 ORAL HEALTH THERAPIST Tobacco Use Grid Type : Cigarettes Cigarette Use Packs/Day : 0.5 Last Use : today BARB GILL PATROL COMMANDER - 04/06/2012 14:39 ORAL HEALTH THERAPIST Caffeine Use Grid Caffeine Use : Current Type : Coffee, Tea Frequency : Daily Amount : 2 cup/day Last Use : today BARB GILL PATROL COMMANDER - 04/06/2012 14:39 ORAL HEALTH THERAPIST Recreational Drug Use Grid Drug Use : None BRAB GILL PATROL COMMANDER - 04/06/2012 14:39 ORAL HEALTH THERAPIST Allergy Allergies (Active) NKA Estimated Onset Date: Unspecified ; Created By: SARAI NIXON; Reaction Status: Active ; Category:Drug ; Substance: NKA ; Type: Allergy ; Updated By: SARAI NIXON; Reviewed Date: 04/06/2012 14:38 ORAL HEALTH THERAPIST Source: [facility] [employer]OTCH[employer] Document Id: [id number] documented in this encounter Plan of Treatment Upcoming Encounters Date Type Specialty Care Team Description 04/12/2022 Office Visit Cardiovascular Disease Simone Gooden AP RN, C.N.P. [address] [phone] (Wo rk) documented as of this encounter Procedures Procedure Name Priority Date/Time Associated Comments Diagnosis AUTOMATED Routine 04/06/2012 3:16 PM Results f or this DIFFERENTIAL, B ORAL HEALTH THERAPIST procedure ar e in the results section. SEDIMENTATION RATE, B Routine 04/06/2012 3:16 PM Results for this ORAL HEALTH THERAPIST procedure are i n the results section. CBC WITH DIFFERENTIAL, Routine 04/06/2012 3:16 PM Results for this B ORAL HEALTH THERAPIST procedure are i n the results section. C-REACTIVE PROTEIN Routine 04/06/2012 3:16 PM Res ults for this (CRP), S/P ORAL HEALTH THERAPIST procedure are i n the results section. BASIC METABOLIC PANEL, Routine 04/06/2012 3:16 PM Results for this S/P ORAL HEALTH THERAPIST procedure are i n the results section. documented in this encounter Results Automated Differential (04/06/2012 3:16 PM ORAL HEALTH THERAPIST) P athologist Signature Neutro % 56.0 34.0 - 67.9 POWERCHART Lymphocytes % 29.8 21.8 - 53.1 POWERCHART HX [place] % 11.0 5.3 - 12.2 POWERCHART HX Eos % 2.8 0.8 - 7.0 POWERCHART HX Baso % 0.4 0.2 - 1.2 POWERCHART Specimen Anatomical Collection Method Collection Time Receive d Time (Source) Location / / Volume Laterality Blood 04/06/2012 3:16 PM 2 3:16 ORAL HEALTH THERAPIST PM ORAL HEALTH THERAPIST Riley Sanchez M.D. LAB BLOOD ADD-ON Performing Organization Address [facility] Code Phon e Number POWERCHART Sedimentation Rate (04/06/2012 3:16 PM ORAL HEALTH THERAPIST) Analysis Performed At Patho logist Time Signature Sedimentation 19 0 - 22 POWERCHART Rate, B MMHR Specimen (Source) Anatomical Collection Method Collection Time Re ceived Time Location / / Volume Laterality Blood 04/06/2012 3:16 PM ORAL HEALTH THERAPIST Riley Sanchez M.D. LAB BLOOD ADD-ON Performing Organization Address [facility] Phon e Number POWERCHART CBC with Differential (04/06/2012 3:16 PM ORAL HEALTH THERAPIST) P athologist Signature Leukocytes 9.0 3.5 - 10.5 POWERCHART X109L Erythrocytes 5.10 4.32 - POWERCHART 5.72 [id number] Hemoglobin 14.9 13.5 - POWERCHART 17.5 GDL Hematocrit 43.1 38.8 - POWERCHART 50.0 MCV 84.5 81.0 - POWERCHART 95.0 FL Platelet Count 290 150 - 450 POWERCHART X109L HX RDW 14.5 11.8 - POWERCHART 15.6 HXDifferential? Auto POWERCHART Specimen (Source) Anatomical Collection Method Collection Time Re ceived Time Location / / Volume Laterality Blood 04/06/2012 3:16 PM ORAL HEALTH THERAPIST Riley Sanchez M.D. LAB BLOOD ADD-ON Performing Organization Address [facility] Phon e Number POWERCHART CRP (C-Reactive Protein) (04/06/2012 3:16 PM ORAL HEALTH THERAPIST) P athologist Signature C-Reactive 7.7 <=8.0 MGL POWERCHART Protein (CRP), S Comment: Test Performed by: [address] [address] Plant And Maintenance Technician: Cem cali III, M.D. Specimen (Source) Anatomical Collection Method Collection Time Re ceived Time Location / / Volume Laterality Blood 04/06/2012 3:16 PM ORAL HEALTH THERAPIST Riley Sanchez M.D. LAB BLOOD ADD-ON Performing Organization Address City/State/ZIP Code Phon e Number POWERCHART (ABNORMAL) BMP (Basic Metabolic Panel) (04/06/2012 3:16 PM ORAL HEALTH THERAPIST) P athologist Signature BUN (Blood Urea 19 7 - 23 POWERCHART Nitrogen), S MGDL Creatinine 0.8 (L) 0.9 - 1.4 POWERCHART MGDL Glucose 76 POWERCHART Potassium, S 4.1 3.5 - 4.8 POWERCHART MMOLL Sodium, S 141 135 - 145 POWERCHART MMOLL Chloride, S 100 100 - 108 POWERCHART MMOLL CO2 Total 30 (H) 22 - 29 POWERCHART MMOLL Calcium, Total, 9.9 8.5 - 10.5 POWERCHART S MGDL BUN/Creatinine 23 POWERCHART Ratio HXeGFR (MDRD) >60 MLMIN POWERCHART eGFR >60 MLMIN POWERCHART Black/ Specimen (Source) Anatomical Collection Method Collection Time Re ceived Time Location / / Volume Laterality Blood 04/06/2012 3:16 PM ORAL HEALTH THERAPIST Riley Sanchez M.D. LAB BLOOD ADD-ON Performing Organization Address City/State/ZIP Code Phon e Number POWERCHART documented in this encounter Visit Diagnoses Not on filedocumented in this encounter
--- OUTSIDE RECORDS SUMMARY | 2022-03-29 07:59 | XMS_ITS | Encounter Summary ---
:1950 Author Organization [facility] Address [address] [place] [address] Care Team Providers Name Role Phone Unavailable Primary Care Provider Unavailable Encounter Details Date Type Department Care Team Description 02/25/2011 Hospital Encounter HX [facility] FB Riley Jimenez M.D. [address] [facility], [facility] [address] [phone] Social History Tobacco Use Types Packs/Day [...] How often do you attend scientology or orthodoxy services? Never 04/16/2019 Do you [...] at Date Recorded Male 06/28/2019 8:47 AM BRINELL TESTER documented as of this encounter Progress Notes Riley Sanchez M.D. - 02/25/2011 12:00 AM CDT [id number] CHIEF COMPLAINT/ REASON FOR VISIT Follow up HISTORY OF PRESENT ILLNESS This is a 61-year-old white man who came in today for follow up. I saw him on February 11, 2011. Patient has elevated blood pressure currently he takes Zestoretic so far no side effects. He is doing fine. Patient saw Dr. Camejo Urologist he underwent cystoscopy patient was told everything was fine. He had a blood test on February 11, 2011. I reviewed with him about those test results. Complete blood count was normal. Basic metabolic profile remarkable for slightly low potassium, liver profile was normal, TSH was normal. Advised him to eat more potassium rich foods. Currently he does not have symptoms. Denies leg cramps muscle weakness of pain. Currently he takes prednisone for arthralgia and it is better now. Today patient declined influenza immunization. CURRENT MEDICATIONS Reviewed and updated as per [...] the EMR. PHYSICAL EXAM GENERAL: Patient is sitting no distress. Able to talk without interruption. IMPRESSION/REPORT/PLAN 1. Hypertension. Blood pressure is fairly controlled. Repeated blood pressure was 132/74 right arm sitting. He will continue current medications along with sodium restriction diet. 2. Hypokalemia. Advised him to eat more potassium in his diet. It was decided not to start potassium supplementation. Will monitor electrolytes. 3. Arthralgia. It is better. He will continue prednisone. Recent sedimentation rate was normal. But C reactive protein was slightly high. Need to check C-reactive protein and sedimentation rate in March 2011. 4. Vaccination for influenza. Patient was offered influenza immunization. He declined. He will wash his hands frequently. All of his questions were answered. Return to clinic in 3 months for follow up. He needs following blood tests in 2 weeks: Basic metabolic profile, C-reactive protein and sedimentation rate. PP/nuk Signed Riley Sanchez M.D. Internal Medicine Electronically Signed By: RILEY SANCHEZ MD On: 03/15/2011 08:23 PM Modified by and Electronically Signed by: RILEY SANCHEZ MD On: 03/15/2011 08:23 PM Source: [facility] MHSDOLBEYNONRADSYS Document Id: [id number] ELL TESTER documented in this encounter Miscellaneous Notes Miscellaneous - Riley Sanchez M.D. - 02/25/2011 4:21 PM CDT Ambulatory Patient Summary [address] [facility] [place] [address] Visit Information Name: SEVEN SALAZAR Current Date: 02/25/2011 16:21:12 Primary Care Provider: RILEY SANCHEZ MD Your Medications Here is a list of your medications. It is important to take your medications as directed. Use a pillbox or chart to help remind you to take your medications. Please let your doctor or nurse know if you have problems taking your medications. Medication/Strength Dose Route Frequency Indications/Special Instructions/Comments APAP/ASA/caffeine (Excedrin Migraine) 3 tab(s) Oral once as needed for Headache lisinopril-hydrochlorothiazide (hydrochlorothiazide-lisinopril 25 mg-20 mg oral tablet) See Instructions 1.5 tab(s) PO Daily AM / Dose increased on 02/11/2011. predniSONE (predniSONE 1 mg oral tablet) 4 mg Oral once a day with food / Take with 5 mg pill at thesame time. Total 9 mg PO Daily. predniSONE (predniSONE 5 mg oral tablet) 5 mg Oral once a day with food / Dose decreased on 01/08/2011. 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 02/19/2010 Obesity NOS Active 02/15/2010 Elevated Sedimentation Rate Active 02/12/2010 Degenerative disc disease, lumbar Active 02/12/2010 Per X-Ray Degenerative disc disease, cervical* Active 02/12/2010 Per X-Ray Osteoarthrosis, Localized, Primary, Involving Shoulder Region Active 02/12/2010 Per X-Ray Back pain Active 03/09/2010 Cancer of urinary bladder Active 02/19/2010 Pain in shoulder Active 03/26/2010 Arthritis Active 08/31/2010 Weight gain Active 09/28/2010 Arthralgia, multiple sites Active 09/28/2010 Skin Tags Active 12/07/2010 Insomnia Active 02/11/2011 Fatigue* Active 02/11/2011 Snoring Active 02/11/2011 Weight loss Active 02/11/2011 Your Recommendations We want to make sure you get the tests, immunizations, and guidance you need to stay healthy. Here is a customized list of recommendations, based on information we have in your medical record. Your doctor may have additional recommendations for you, based on your personal medical history and risk factors. You can help us by calling us to make an appointment when you are due for your tests. Additional information regarding recommendations: Test/Treatment Last Done Next Due Additional Information Screening Colonoscopy or Flex Sig or Occult Blood X3 02/22/2005 02/20/2015 Checks for signs of cancer of the colon. Lipid Panel every 5 years Age 20-75 10/26/2010 10/25/2015 Checks blood for good (HDL) and bad (LDL) cholesterol. Know your numbers, they are one indicator of your risk for heart attack and stroke. Vaccine: Flu every 1 year 02/25/2011 Immunization to help prevent you from getting the flu strain expected to be a problem for that year's flu season. Vaccine: Tetanus every 10 years 02/12/2010 02/10/2020 Immunization to help prevent you from getting the serious disease Tetanus (Lockjaw). Your Upcoming Appointments Date Time Location Reason Provider 05/27/2011 11:00 [facility] Urology cystoscopy Jatinder Camejo MD Your Goals/Additional instructions: Source: [facility] POWERCHART Document Id: [id number] Miscellaneous - Riley Sanchez M.D. - 02/25/2011 4:21 PM CDT Ambulatory Depart Summary [address] [address] Visit Information Name: SEVEN SALAZAR Current Date: 02/25/2011 16:21:11 Primary Care Provider: RILEY SANCHEZ MD SEVEN SALAZAR has been given the following list of medications: Your Medications It is important to take your medications as directed. Use a pill box or chart to help remind you to take your medications. Please let your doctor or nurse know if you have problems taking your medications. Medication/Strength Dose Route Frequency Indications/Special Instructions/Comments APAP/ASA/caffeine (Excedrin Migraine) 3 tab(s) Oral once as needed for Headache lisinopril-hydrochlorothiazide (hydrochlorothiazide-lisinopril 25 mg-20 mg oral tablet) See Instructions 1.5 tab(s) PO Daily AM / Dose increased on 02/11/2011. predniSONE (predniSONE 1 mg oral tablet) 4 mg Oral once a day with food / Take with 5 mg pill at thesame time. Total 9 mg PO Daily. predniSONE (predniSONE 5 mg oral tablet) 5 mg Oral once a day with food / Dose decreased on 01/08/2011. Additional Information: Yes - Current list of reconciled medications is provided and explained to the patient and/or family, guardian/caregiver. Source: [facility] MOLOME Document Id: [id number] Miscellaneous - Riley Sanchez M.D. - 02/25/2011 4:20 PM CDT Ambulatory Vitals Height Weight Ambulatory Vitals Height Weight Entered On: 03/09/2011 22:24 CDT Performed On: 02/25/2011 16:20 CDT by RILEY SANCHEZ MD Vitals/Ht/Wt Systolic Blood Pressure : 132mmHg Diastolic Blood Pressure : 74mmHg NIBP Mean : 93mmHg BP Location : Right upper extremity RILEY SANCHEZ MD - 03/09/2011 22:23 CDT [facility] Document Id: [id number] CDT!6 Miscellaneous - Mali Tineo Provider Mamadou - 02/25/2011 3:50 PM CDT Adult Satellite Manager Intake/History Adult Satellite Manager Intake/History Entered On: 02/25/2011 15:52 CDT Performed On: 02/25/2011 15:50 CDT by EMPERATRIZ HASSAN Intake Chief Complaint: Follow up on lab results Temperature Core: 37.5C(Converted to: 99.5DegF) Peripheral Pulse Rate: 96/min Respiratory Rate: 16/min Systolic Blood Pressure: 134mmHg Diastolic Blood Pressure: 54mmHg NIBP Mean: 81mmHg BP Location: Right upper extremity SpO2: 96% Heart Rhythm: Regular Oxygen Therapy: Room air Actual Weight: 97.000kg(Converted to: 213lb 14oz) Weight Source: Standing scale Dosing Weight Clinic: 97.00kg EMPERATRIZ HASSAN 02/25/2011 15:50 CDT Subjective Pain Symptoms: No EMPERATRIZ HASSAN 02/25/2011 15:50 CDT Dependent Habits Tobacco Use/Currently Using: Yes Tobacco Use/Advised to Quit: Yes Exposure to Tobacco Smoke: Patient smokes Smoking Status: Current every day smoker EMPERATRIZ HASSAN 02/25/2011 15:50 CDT Tobacco Use Grid Type: Cigarettes Cigarette Use Packs/Day: 0.5 Last Use: today EMPERATRIZ HASSAN 02/25/2011 15:50 CDT Caffeine Use Grid Caffeine Use: Current Type: Coffee, Tea Frequency: Daily Amount: 2 cup/day Last Use: today EMPERATRIZ HASSAN 02/25/2011 15:50 CDT Allergy Allergies (Active) NKA Estimated Onset Date: Unspecified ; Created By: SARAI NIXON; Reaction Status: Active ; Category:Drug ; Substance: NKA ; Type: Allergy ; Updated By: SARAI NIXON; Reviewed Date: 02/25/2011 10:55 CDT Source: [facility] POWERCHART Document Id: [id number] CDT!35 documented in this encounter Plan of Treatment Upcoming Encounters Date Type Specialty Care Team Description 04/12/2022 Office Visit Cardiovascular Disease Simone Gooden AP RN, C.N.P. [address] [phone] (Wo rk) documented as of this encounter Visit Diagnoses Not on filedocumented in this encounter
--- OUTSIDE RECORDS SUMMARY | 2022-03-29 07:59 | XMS_ITS | Encounter Summary ---
:1950 Author Organization [facility] Address [address] [place] [address] Care Team Providers Name Role Phone Unavailable Primary Care Provider Unavailable Encounter Details Date Type Department Care Team Description 10/08/2010 Hospital Encounter HX [facility] UROLOGY Tamika Camejo M.D. [address] [place] [phone] (Wo rk) Social History Tobacco [...] often do you attend jehovah's witness or spiritism services? 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 - 10/08/2010 12:00 AM CDT [id number] PROCEDURE Cystoscopy INDICATION Bladder cancer. This is a 60-year-old male who continues to use tobacco. 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 He completed six weeks of induction immunotherapy with BCG. Follow-up cystoscopies were suspicious so he was taken to the operating room for another biopsy. There was no evidence of recurrence. He then went on to have maintenance therapy for three weeks. He developed some arthralgias which were felt to be related to BCG. He has not had any further BCG. He is currently asymptomatic. INSTRUMENT Storz flexible cystourethroscope ANESTHESIA 2% aqueous lidocaine jelly introduced into the urethra PROCEDURE The patient was placed in a supine position. The genitalia were prepped and draped sterily. The urethra was anesthetized with 2% aqueous lidocaine jelly. The cystoscope was advanced into the urethra. FINDINGS Meatus: Normal. Urethra: No strictures noted. Bulbous urethra and membranous urethra are normal. Prostate: Length: Approximately 4 centimeters. Lateral lobes: Lateral lobe hypertrophy with partial visual obstruction. Middle lobe: Absent. Bladder neck: Normal. Bladder: Residual urine: Minimal. Ureteral orifices: Singular bilaterally, normal position on the trigone, slit-like in configuration and with clear efflux of urine noted bilaterally. Trabeculation: Mild. Tumors: There are no stones, tumors or raised tumors in the bladder. There are two areas that are mildly suggestive of carcinoma in situ, both near the dome of the bladder. Both of these areas are redder than the surrounding areas and are considered mildly suspicious. The remainder of the bladder is unremarkable. COMMENTS The procedure was well tolerated by the patient. He was discharged from the office in satisfactory condition. Post-cystoscopy instructions were reviewed with him. IMPRESSION 1. History of transitional cell carcinoma of the urinary bladder. Somewhat suspicious exam. 2. 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 PLAN 1. Send urine for cytology and FISH studies. 2. I would like him to come back in the near future for cystoscopy, biopsies and fulguration in the office setting. If both the cytology and FISH studies are negative, we in all likelihood will still plan on doing the biopsies as we probably cannot use BCG in the future. Unless push comes to shove, we will need to consider using other agents such as thiotepa or mitomycin C. /nmd Signed Tamika Camejo M.D. Urology Electronically Signed By: TAMIKA CAMEOJ MD On: 10/09/2010 02:04 PM Source: [facility] MHSDOLBEYNONRADSYS Document Id: [id number] documented in this encounter Miscellaneous Notes Miscellaneous - Tamika Camejo M.D. - 10/11/2010 5:25 PM CDT Results Notification Document Contains Addenda Addendum by PRUDENCIO CANNON on 11 October 2010 18:15:12 CDT Patient notified by mail. From: TAMIKA CAMEJO MD To: PRUDENCIO CANNON TAMMY A Sent: 10/11/2010 17:25:09 CDT ! Show up: 10/11/2010 17:24:00 CDT Subject: Results Notification Actions: Notify patient of results Due Date/Time: 10/11/2010 17:24:00 CDT Source: [facility] POWERCHART Document Id: [id number] Miscellaneous - Tamika Camejo M.D. - 10/08/2010 4:20 PM CDT [place] [address] Visit Information Name: SILAS SALAZAREL FABRICE Current Date: 10/08/2010 16:20:21 Primary Care Provider: LETA SANCHEZ MD Your Medications Here is a list of your medications. It is important to take your medications as directed. Use a pillbox or chart to help remind you to take your medications. Please let your doctor or nurse know if you have problems taking your medications. Medication/Strength Dose Route Frequency Indications/Special Instructions/Comments predniSONE (predniSONE 5 mg oral tablet) See Instructions 3 tab(s) PO Daily / Dose decreased on 09/28/2010. predniSONE (predniSONE 20 mg oral tablet) 20 mg Oral once a day (in the morning) with food hydrochlorothiazide-lisinopril (hydrochlorothiazide-lisinopril 25 mg-20 mg oral tablet) 1 tab(s) Oral once a day (at bedtime) Cancel previous prescriptions for HCTZ and lisinopril. 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 Diabetes and/or Vascular: LDL every 1 year 10/08/2010 Screening Colonoscopy or Flex Sig or Occult Blood X3 02/22/2005 02/20/2015 Checks for signs of cancer of the colon. Lipid Panel every 5 years Age 20-75 10/08/2010 Checks blood for good (HDL) and bad (LDL) cholesterol. Know your numbers, they are one indicator of your risk for heart attack and stroke. Vaccine: Flu every 1 year 10/08/2010 Immunization to help prevent you from getting the flu strain expected to be a problem for that year's flu season. Vaccine: Tetanus every 10 years 02/12/2010 02/10/2020 Immunization to help prevent you from getting the serious disease Tetanus (Lockjaw). Your Upcoming Appointments Date Time Location Reason Provider 10/26/2010 08:30 [facility] Lab 10/29/2010 10:00 [facility] Follow up. Leta Sanchez MD 10/29/2010 10:45 [facility] Urology cystoscopy, biopsy Tamika Camejo MD Your Goals/Additional instructions: Source: [facility] POWERCHART Document Id: [id number] Miscellaneous - Tamika Camejo M.D. - 10/08/2010 4:20 PM CDT [place] [address] Visit Information Name: SEVEN SALAZAR Current Date: 10/08/2010 16:20:20 Primary Care Provider: LETA SANCHEZ MD SEVEN SALAZAR has been given the following list of medications: Your Medications It is important to take your medications as directed. Use a pill box or chart to help remind you to take your medications. Please let your doctor or nurse know if you have problems taking your medications. Medication/Strength Dose Route Frequency Indications/Special Instructions/Comments predniSONE (predniSONE 5 mg oral tablet) See Instructions 3 tab(s) PO Daily / Dose decreased on 09/28/2010. predniSONE (predniSONE 20 mg oral tablet) 20 mg Oral once a day (in the morning) with food hydrochlorothiazide-lisinopril (hydrochlorothiazide-lisinopril 25 mg-20 mg oral tablet) 1 tab(s) Oral once a day (at bedtime) Cancel previous prescriptions for HCTZ and lisinopril. Additional Information: Yes - Current list of reconciled medications is provided and explained to the patient and/or family, guardian/caregiver. Source: [facility] [employer] Document Id: [id number] Miscellaneous - Prudencio Cannon L.P.N. - 10/08/2010 3:09 PM CDT Adult Area Manager Intake/History Adult Area Manager Intake/History Entered On: 10/08/2010 15:11 CDT Performed On: 10/08/2010 15:09 CDT by PRUDENCIO CANNON Intake Chief Complaint: Cystoscopy Temperature Core: 36.9C(Converted to: 98.4DegF) Peripheral Pulse Rate: 80/min Systolic Blood Pressure: 148mmHg (HI) Diastolic Blood Pressure: 92mmHg (>HHI) NIBP Mean: 111mmHg BP Location: Left upper extremity PRUDENCIO CANNON - 10/08/2010 15:09 CDT Subjective Pain Symptoms: No PRUDENCIO CANNON - 10/08/2010 15:09 CDT Dependent Habits Tobacco Use/Currently Using: Yes Exposure to Tobacco Smoke: Patient smokes PRUDENCIO CANNON - 10/08/2010 15:09 CDT Tobacco Use Grid Type: Cigarettes Cigarette Use Packs/Day: 0.5 Last Use: today PRUDENCIO CANNON - 10/08/2010 15:09 CDT Alcohol Use: No PRUDENCIO CANNON - 10/08/2010 15:09 CDT Caffeine Use Grid Caffeine Use: Current Type: Coffee, Tea Frequency: Daily Amount: 2 cup/day Last Use: today PRUDENCIO CANNON - 10/08/2010 15:09 CDT Allergy Allergies (Active) NKA Estimated Onset Date: Unspecified ; Created By: SARAI NIXON; Reaction Status: Active ; Category:Drug ; Substance: NKA ; Type: Allergy ; Updated By: SARAI NIXON; Reviewed Date: 10/08/2010 15:08 CDT Source: [facility] [employer] Document Id: [id number] CDT!27 documented in this encounter Plan of Treatment Upcoming Encounters Date Type Specialty Care Team Description 04/12/2022 Office Visit Cardiovascular Disease Simone Gooden AP RN, C.N.P. [address] [address] [phone] (Wo rk) documented as of this encounter Procedures Procedure Name Priority Date/Time Associated Diagnosis Comme nts CYTOLOGY NON-FOOD CRITIC Routine 10/08/2010 4:50 PM Resul ts for this CDT procedure are i n the results section. documented in this encounter Results Pathology Non-FOOD CRITIC Cytology (10/08/2010 4:50 PM CDT) [facility] Method Time Signature HX Spec See Comment POWERCHART [facility] Comment: RESULT: A. ??Urine, NOS: ??Received 40cc of yellow urine in PreservCyt Test Performed by: [facility] Dpt of Lab Med and Pathology [address] [place] [address] Medical Engineer: Cem cali III, M.D. Specimen (Source) Anatomical Collection Method Collection Time Re ceived Time Location / / Volume Laterality Urine 10/08/2010 4:50 PM CDT Tamika Camejo M.D. LAB SURG PATH ORDERABLES Performing Organization Address City/State/ZIP Code Phon e Number POWERCHART documented in this encounter Visit Diagnoses Not on filedocumented in this encounter
--- OUTSIDE RECORDS SUMMARY | 2022-03-29 07:59 | XMS_ITS | Encounter Summary ---
:1950 Author Organization [facility] Address [address] [place] [address] Care Team Providers Name Role Phone Unavailable Primary Care Provider Unavailable Encounter Details Date Type Department Care Team Description 02/11/2011 Hospital Encounter HX [facility] Riley Jimenez M.D. [address] [facility], [facility] [address] [phone] Social History Tobacco Use Types Packs/Day [...] How often do you attend alevism or jainism services? 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 - 02/11/2011 12:00 AM CDT [id number] CHIEF COMPLAINT/ REASON FOR VISIT Follow up. HISTORY OF PRESENT ILLNESS This is a 60-year-old white man who came in today for follow up. I saw him on January 08, 2011 patient was noted to have high blood pressure and patient was advised to stick with sodium restriction diet and quit smoking cigarettes. He came back to check blood pressure it has been high. He was also complaining of insomnia, fatigue and tiredness. Patient was advised to come back today for followup. He went to [facility] on January 21, 2011 because of headache. Patient had a head CT scan, MRI of the brain they all came back negative. Advised him to follow with me for further evaluation. Head CT scan showed mild cerebral atrophy small vessel ischemic change. No acute intracranial pathology or bleeding. He also had a MRI and MRA of the brain there was no acute infarct, intracranial hemorrhage or increased mass effect. He has mild to moderate prominence of ventricles and CSF space he has chronic small vessel ischemic changes. There was no evidence of hemodynamically significant stenosis or aneurysm measuring greater than 3 to 4 mm in size or major intracranial arteries. Today he is complaining of loss of appetite. He lost approximately 10 pounds in 3 weeks. There was no nausea, vomiting, abdominal pain, change in bowel movement. Denies blood mucous in his stool. He is snoring at night especially when he sleeps on back. He has fatigue, tiredness. There was no significant excessive daytime sleepiness. It should be noted that he had to cancel cystoscopy with Dr. Camejo because of uncontrolled hypertension. Another complaint is pain in the back, flank area on the right side. His father had a liver cancer pancreas cancer. Sister also has liver cancer. One of his uncles had pancreas cancer. But there was no family history of colon cancer. He had a CT abdomen and pelvis, done on February 06, 2010 at that time he was found to have a 1.5 cm bladder wall tumor with enlarged prostate. It was decided to repeat CT scan of the chest, abdomen and pelvis at [facility]. Because of significant weight loss and loss of appetite and history of bladder cancer. CURRENT MEDICATIONS 1. Lisinopril hydrochlorothiazide 25/20 1.5 tablets by mouth daily in the morning in (dose increase) 2. Prednisone 9 milligrams by mouth daily ALLERGIES No known drug allergies. SYSTEMS REVIEW As per the history of present illness. Other systems are reviewed and are negative. PAST MEDICAL/SURGICAL HISTORY Reviewed and updated as per the EMR. PREVENTIVE SERVICES Reviewed and updated as per the EMR. VITAL SIGNS Reviewed as per the EMR. PHYSICAL EXAM GENERAL: Patient is sitting no distress. Able to talk without interruption. HEAD: No facial rash, asymmetry or sinus tenderness. EYES: PERRLA, EOMI. No pallor, icterus or conjunctivitis. ENT: No nasal congestion, discharge or bleeding. There is no ear infection or discharge. No mastoid tenderness. Tongue is moist, midline. No oral lesions. LYMPH NODES: There was no cervical or supraclavicular lymphadenopathy. HEART: Regular rhythm. There is no S3, gallop, no obvious murmur. LUNGS: Normal respiratory effort. Clear to auscultation. Normal percussion. ABDOMEN: Moves with respiration. Bowel sounds present. Soft. No rebound, tenderness, guarding, or rigidity. No organomegaly. EXTREMITIES: No clubbing, cyanosis, edema, infection, or calf tenderness. MENTAL: Alert and oriented x 3. Normal mood and affect. NEURO: Grossly nonfocal exam. IMPRESSION/REPORT/PLAN 1. Hypertension. Repeated blood pressure was 150/84 mmHg. It is better to keep blood pressure less than 130/80. It was decided to increase Zestoretic. New prescription was given. Advised him to come and check blood pressure in 2 weeks. He should call me if there is side effect or intolerance to new dose. 2. Possible obstructive sleep apnea. He has insomnia, fatigue, snoring, headache and hypertension. It was decided to get sleep study. 3. Arthralgia with elevated sedimentation rate. He will continue current dose of prednisone. Sedimentation rate was normal but C reactive protein was high on February 08, 2011. We need to repeat sedimentation rate and C-reactive protein in March 2011. 4. Urothelial carcinoma of urinary bladder. He will follow with Dr. Camejo. 5. Weight loss. His body weight was 103.6 kg on February 13, 2010. Today's body weight was 98 kg. He is also complaining of pain in the right posterior flank area. Because of history of urinary bladder cancer, we need to make sure he does not have metastasis. It was decided to proceed with CT scan of the chest, abdomen and pelvis. That will be done at [facility]. Patient agreed with plan. All of his questions were answered. Today's studies: Complete blood count, basic metabolic profile, liver profile, TSH. Return to clinic in 2 weeks for followup. PP/nuk Signed Riley Sanchez M.D. Internal Medicine Electronically Signed By: RILEY SANCHEZ MD On: 03/15/2011 08:54 PM Modified by and Electronically Signed by: RILEY SANCHEZ MD On: 03/15/2011 08:54 PM Source: [facility] MHSDOLBEYNONRADSYS Document Id: [id number] AND MAKER documented in this encounter Miscellaneous Notes Miscellaneous - Riley Sanchez M.D. - 02/14/2011 9:00 AM CDT Results Notification Document Contains Addenda Addendum by BARB GILL LPN on 15 February 2011 17:20:13 CDT From: BARB GILL LPN To: RILEY SANCHEZ MD; Sent: 02/15/2011 17:20:13 CDT Subject: notified notified From: RILEY SANCHEZ MD To: BARB GILL LPN Sent: 02/14/2011 09:00:42 CDT ! Show up: 02/14/2011 09:00:00 CDT Subject: Results Notification Actions: Notify patient of results Due Date/Time: 02/14/2011 09:00:00 CDT Source: [facility] POWERCHART Document Id: [id number] Miscellaneous - Riley Sanchez M.D. - 02/11/2011 5:37 PM CDT Results Notification Document Contains Addenda Addendum by BARB GILL LPN on 15 February 2011 17:20:42 CDT From: BARB GILL LPN To: RILEY SANCHEZ MD; Sent: 02/15/2011 17:20:42 CDT Subject: notified notified From: RILEY SANCHEZ MD To: BARB GILL LPN Sent: 02/11/2011 17:37:15 CDT ! Show up: 02/11/2011 17:36:00 CDT Subject: Results Notification Actions: Notify patient of results Due Date/Time: 02/11/2011 17:36:00 CDT Source: [facility] [employer] Document Id: [id number] Electronically signed by Rivka [facility] Applied Anthropologist [id number] at 10/06/2016 4:02 PM CDT Miscellaneous - Riley Sanchez M.D. - 02/11/2011 5:20 PM CDT Ambulatory Patient Summary [address] [address] Visit Information Name: SEVEN SALAZAR Current Date: 02/11/2011 17:20:44 Primary Care Provider: RILEY SANCHEZ MD Your Medications Here is a list of your medications. It is important to take your medications as directed. Use a pillbox or chart to help remind you to take your medications. Please let your doctor or nurse know if you have problems taking your medications. Medication/Strength Dose Route Frequency Indications/Special Instructions/Comments lisinopril-hydrochlorothiazide (hydrochlorothiazide-lisinopril 25 mg-20 mg oral tablet) [...] Diabetes and/or Vascular: LDL every 1 year 10/26/2010 10/26/2011 Screening Colonoscopy or Flex Sig or Occult Blood X3 02/22/2005 02/20/2015 Checks for signs of cancer of the colon. Lipid Panel every 5 years Age 20-75 10/26/2010 10/25/2015 Checks blood for good (HDL) and bad (LDL) cholesterol. Know your numbers, they are one indicator of your risk for heart attack and stroke. Vaccine: Flu every 1 year 02/11/2011 Immunization to help prevent you from getting the flu strain expected to be a problem for that year's flu season. Vaccine: Tetanus every 10 years 02/12/2010 02/10/2020 Immunization to help prevent you from getting the serious disease Tetanus (Lockjaw). Your Upcoming Appointments Date Time Location Reason Provider No Appointments found Your Goals/Additional instructions: [facility]: [facility] Document Id: [id number] Electronically signed by Conversion, [facility] Applied Anthropologist [id number] at 10/06/2016 4:02 PM CDT Riley Rangel M.D. - 02/11/2011 5:20 PM CDT Ambulatory Depart Summary [address] [address] Visit Information Name: SEVEN SALAZAR Current Date: 02/11/2011 17:20:43 Primary Care Provider: RILEY SANCHEZ MD SEVEN SALAZAR has been given the following list of medications: Your Medications It is important to take your medications as directed. Use a pill box or chart to help remind you to take your medications. Please let your doctor or nurse know if you have problems taking your medications. Medication/Strength Dose Route Frequency Indications/Special Instructions/Comments lisinopril-hydrochlorothiazide (hydrochlorothiazide-lisinopril 25 mg-20 mg oral tablet) [...] to the patient and/or family, guardian/caregiver. Source: [facility] Document Id: [id number] Electronically signed by Conversion, [facility] Applied Anthropologist [id number] at 10/06/2016 4:02 PM CDT Mook Sanchez Phunt, M.D. - 02/11/2011 5:10 PM CDT Ambulatory Vitals Height Weight Ambulatory Vitals Height Weight Entered On: 02/11/2011 17:12 CDT Performed On: 02/11/2011 17:10 CDT by RILEY SANCHEZ MD Vitals/Ht/Wt Peripheral Pulse Rate: 80/min Systolic Blood Pressure: 150mmHg (HI) Diastolic Blood Pressure: 84mmHg NIBP Mean: 106mmHg BP Location: Left upper extremity Heart Rhythm: Regular RILEY SANCHEZ MD - 02/11/2011 17:10 CDT Source: [employer] Document Id: [id number] CDT!8 Miscellaneous - Conversion, Historical Provider Ser - 02/11/2011 4:41 PM CDT Ambulatory Vitals Height Weight Ambulatory Vitals Height Weight Entered On: 02/11/2011 16:42 CDT Performed On: 02/11/2011 16:41 CDT by BARB GILL LPN Vitals/Ht/Wt Systolic Blood Pressure: 136mmHg Diastolic Blood Pressure: 84mmHg NIBP Mean: 101mmHg BARB GILL LPN - 02/11/2011 16:41 CDT Source: [employer] Document Id: [id number] CDT!5 Miscellaneous - Conversion, Historical Provider Ser - 02/11/2011 4:36 PM CDT Adult Hand Pleater Intake/History Adult Hand Pleater Intake/History Entered On: 02/11/2011 16:41 CDT Performed On: 02/11/2011 16:36 CDT by BARB GILL LPN Intake Chief Complaint: htn meds appetite decreased Peripheral Pulse Rate: 84/min Respiratory Rate: 18/min Systolic Blood Pressure: 142mmHg (HI) Diastolic Blood Pressure: 82mmHg NIBP Mean: 102mmHg BP Location: Right upper extremity Actual Weight: 98.000kg(Converted to: 216lb 1oz) Dosing Weight Clinic: 98.00kg BARB GILL [facility] - 02/11/2011 16:36 CDT Subjective Pain Symptoms: No BARB GILL [facility] - 02/11/2011 16:36 CDT Dependent Habits Tobacco Use/Currently Using: Yes Tobacco Use/Advised to Quit: Yes Exposure to Tobacco Smoke: Patient smokes BARB GILL [facility] 02/11/2011 16:36 CDT Tobacco Use Grid Type: Cigarettes Cigarette Use Packs/Day: 0.5 Last Use: today BARB GILL [facility] 02/11/2011 16:36 CDT Caffeine Use Grid Caffeine Use: Current Type: Coffee, Tea Frequency: Daily Amount: 2 cup/day Last Use: today BARB GILL [facility] - 02/11/2011 16:36 CDT Allergy Allergies (Active) NKA Estimated Onset Date: Unspecified ; Created By: SARAI NIXON; Reaction Status: Active ; Category:Drug ; Substance: NKA ; Type: Allergy ; Updated By: SARAI NIXON; Reviewed Date: 02/11/2011 16:35 CDT Source: [facility] [employer] Document Id: [id number] CDT!29 documented in this encounter Plan of Treatment Upcoming Encounters Date Type Specialty Care Team Description 04/12/2022 Office Visit Cardiovascular Disease Simone Gooden AP RN, C.N.P. [address] [phone] (Wo rk) documented as of this encounter Visit Diagnoses Not on filedocumented in this encounter
--- OUTSIDE RECORDS SUMMARY | 2022-03-29 07:59 | XMS_ITS | Encounter Summary ---
:1950 Author Organization [facility] Address [address] [place] [address] Care Team Providers Name Role Phone Unavailable Primary Care Provider Unavailable Encounter Details Date Type Department Care Team Description 10/07/2011 Hospital Encounter HX [facility] Tamika Camejo M.D. 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 - 10/07/2011 12:00 AM CDT [id number] PROCEDURE Cystoscopy INDICATION Bladder cancer. HISTORY OF [...] further BCG. His last cystoscopy was on 02/25/2011 and urine cytology and FISH studies were negative. He is now here for another cystoscopy. INSTRUMENT Storz flexible cystourethroscope ANESTHESIA 2% aqueous lidocaine jelly introduced into the urethra PROCEDURE The patient was appropriately identified with at least two separate identifiers and the correct procedure was confirmed. The patient was placed in a supine position. The genitalia were prepped and draped sterily. The urethra was anesthetized with 2% aqueous lidocaine jelly. The cystoscope was advanced into the urethra. FINDINGS Meatus: Normal. Urethra: No strictures noted. Bulbous urethra and membranous urethra are normal. Prostate: Length: 4 centimeters. Lateral lobes: Lateral lobe hypertrophy with partial visual obstruction. Middle lobe: Absent. Bladder neck: Normal. Bladder: Residual urine: Minimal. Ureteral orifices: Singular bilaterally, normal position on the trigone, slit-like in configuration and with clear efflux of urine noted bilaterally. Trabeculation: Mild. Tumors: There are no stones, foreign bodies, exophytic lesions, or suspicious areas anywhere within the bladder. There is no indication for doing a bladder biopsy today. COMMENTS The procedure was well tolerated by the patient. He was discharged from the office in satisfactory condition. Post-cystoscopy instructions were reviewed with him. IMPRESSION 1. History of transitional cell carcinoma of the urinary bladder, no cystoscopic evidence of recurrent disease. 2. 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 PLAN Send urine for cytology and FISH studies. Provided these are negative, return to urologic clinic in four to six months for a repeat cystoscopy. /nmd Signed Tamika Camejo M.D. Urology Electronically Signed By: TAMIKA CAMEJO MD On: 10/09/2011 12:04 PM Source: [facility] MHSDOLBEYNONRADSYS Document Id: [id number] documented in this encounter Miscellaneous Notes Miscellaneous - Tamika Camejo M.D. - 10/11/2011 10:56 AM CDT Results Notification Document Contains Addenda Addendum by PRUDENCIO LOVE on 11 October 2011 11:14:34 CDT Patient notified by mail. From: TAMIKA CAMEJO MD To: Urology Pool Sent: 10/11/2011 10:56:42 CDT ! Show up: 10/11/2011 15:56:42 [facility] Subject: Results Notification Actions: Notify patient of results Source[facility] Document Id: [id number] Electronically signed by Rivka [facility] Client Support Coordinator [id number] at 10/06/2016 4:17 AM CDT Miscellaneous - Stoney Velázquez, C.M.ABhavesh - 10/07/2011 2:32 PM CDT Ambulatory Vitals Height Weight Ambulatory Vitals Height Weight Entered On: 10/07/2011 14:33 CDT Performed On: 10/07/2011 14:32 CDT by STONEY MEDRANO Vitals/Ht/Wt Systolic Blood Pressure : 154mmHg (HI) (Comment: bp recheck, pt advised to repeat in 1 week & f/u w/PCP if elevated [STONEY MEDRANO - 10/07/2011 14:32 CDT] ) Diastolic Blood Pressure : 78mmHg NIBP Mean : 103mmHg BP Location : Left upper extremity Blood Pressure Cuff Size : Large STONEY MEDRANO - 10/07/2011 14:32 CDT Source: [employer] Document Id: [id number] Miscellaneous - Tamika Camejo M.D. - 10/07/2011 2:23 PM CDT Ambulatory Patient Summary [address] [address] Visit Information Name: SEVEN SALAZAR Current Date: 10/07/2011 14:23:46 Physicians Attending Provider: TAMIKA CAMEJO MD Primary [...] 07/01/2011 Pseudophakia Active 10/07/2011 Presbyopia Active 10/07/2011 Your Upcoming Appointments Date Time Location Reason Provider 10/31/2011 16:00 [facility] Follow-up. Riley Sanchez MD Your Goals/Additional instructions: Source: [facility] POWERCHART Document Id: [id number] Miscellaneous - Tamika Camejo M.D. - 10/07/2011 2:23 PM CDT [place] [address] Visit Information Name: SEVEN SALAZAR Visit Date: 10/07/2011 14:23:45 Attending Provider: TAMIKA CAMEJO MD Primary Care [...] your provider for clarification. Additional Information: Source: [facility] POWERCHART Document Id: [id number] Miscellaneous - Stoney Velázquez C.MDale - 10/07/2011 1:54 PM CDT Adult Human Performance Consultant Intake/History Adult Human Performance Consultant Intake/History Entered On: 10/07/2011 13:58 CDT Performed On: 10/07/2011 13:54 CDT by STONEY MEDRANO Intake Chief Complaint : recheck, cysto/cytology/FISH Temperature Core : 37.4C(Converted to: 99.3DegF) Peripheral Pulse Rate : 86/min Systolic Blood Pressure : 144mmHg (HI) Diastolic Blood Pressure : 80mmHg NIBP Mean : 101mmHg BP Location : Right upper extremity Blood Pressure Cuff Size : Large STONEY MEDRANO - 10/07/2011 13:54 CDT Subjective Pain Symptoms : No STONEY MEDRANO - 10/07/2011 13:54 CDT Dependent Habits Tobacco Use/Currently Using : Yes Tobacco Use/Advised to Quit : Yes Exposure to Tobacco Smoke : Patient smokes Smoking Status : Current every day smoker STONEY MEDRANO - 10/07/2011 13:54 CDT Tobacco Use Grid Type : Cigarettes Cigarette Use Packs/Day : 0.5 Last Use : today STONEY MEDRANO - 10/07/2011 13:54 CDT Alcohol Use : No STONEY MEDRANO - 10/07/2011 13:54 CDT Caffeine Use Grid Caffeine Use : Current Type : Coffee, Tea Frequency : Daily Amount : 2 cup/day Last Use : today STONEY MEDRANO - 10/07/2011 13:54 CDT Recreational Drug Use Grid Drug Use : None STONEY MEDRANO - 10/07/2011 13:54 CDT Allergy Allergies (Active) NKA Estimated Onset Date: Unspecified ; Created By: SARAI NIXON; Reaction Status: Active ; Category:Drug ; Substance: NKA ; Type: Allergy ; Updated By: SARAI NIXON; Reviewed Date: 10/07/2011 13:53 CDT Source: [facility] POWERCHART Document Id: [id number] documented in this encounter Plan of Treatment Upcoming Encounters Date Type Specialty Care Team Description 04/12/2022 Office Visit Cardiovascular Disease Simone Gooden AP RN, C.N.P. [address] [phone] (Wo rk) documented as of this encounter Procedures Procedure Name Priority Date/Time Associated Diagnosis Comme nts UROVYSION (R) FOR Routine 10/07/2011 2:25 PM Resu lts for this BLADDER CANCER CDT procedure are in the results section. CYTOLOGY, U Routine 10/07/2011 2:25 PM Results f or this CDT procedure are i n the results section. documented in this encounter Results UroVysion for Detection of Bladder Cancer, Urine (10/07/2011 2:25 PM CDT) [facility] Method Time Signature HXUroCancer Urine POWERCHART [facility] HXUroCancer [id number] POWERCHART [facility] HXUroCancer See Comment [facility]OWER[facility]ART [facility] Comment: RESULT: 09 Oct 2011 09:12 Method See Comment POWERCHART Comment: Fluorescence in situ hybridization (FISH ) with centromere probes for chromosome 3 (D3Z1), 7 (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 HXUroCancer [facility] See Comment POWERCH ART Comment: RESULT: r/o urothelial carcinom a HXUroCancer [facility] Negative. POWERCHA RT [facility]cer [facility] See Comment POWER CHART Comment: No evidence of urothelial carcinoma. ??T his test result does not rule out the possibility that the pa tient may have a low grade (i.e. grade 1 or 2) non invasive p apillary urothelial carcinoma. ??Some patients with low grad e non invasive papillary urothelial carcinoma do not polanco ve abnormalities with this FISH test. ??In previous urina ry tract specimens, the results were negative on 25FEB2011, negative on 08OCT2010, and negative on 02JUL2010. HXUroCancer [facility] Nini Diaz MD P OWERCHART HXUroCancer RptDt[facility] See Comment POWER CHART Comment: RESULT: 10 Oct 2011 14:59 Test Performed by: [facility] [place] [address] Landscape Nurseryman: Cem cali III, M.D. Specimen (Source) Anatomical Collection Method Collection Time Re ceived Time Location / / Volume Laterality Urine 10/07/2011 2:25 PM CDT Tamika Camejo M.D. LAB GENETIC TESTING Performing Organization Address City[facility] Phon e Number POWERCHART Cytology, Urine (10/07/2011 2:25 PM CDT) Patholo gist Method Time Signature HX Spec See Comment POWERCHART [facility] Comment: RESULT: A. ??Urine, NOS: ??Received 35cc of yellow urine Test Performed by: [place] [address] Landscape Nurseryman: Cem cali III, M.D. Specimen (Source) Anatomical Collection Method Collection Time Re ceived Time Location / / Volume Laterality Urine 10/07/2011 2:25 PM CDT Tamika Camejo M.D. LAB URINE ORDERABLES Performing Organization Address [facility] Phon e Number POWERCHART documented in this encounter Visit Diagnoses Not on filedocumented in this encounter
--- OUTSIDE RECORDS SUMMARY | 2022-03-29 07:59 | XMS_ITS | Encounter Summary ---
:1950 Author Organization [facility] Address [address] [place] [address] Care Team Providers Name Role Phone Unavailable Primary Care Provider Unavailable Encounter Details Date Type Department Care Team Description 12/31/2010 Hospital Encounter HX [facility] Jatinder Camejo M.D. [address] [place] [address] (Wo rk) Social History [...] How often do you attend advent or islam services? 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 [address] [phone] (Wo rk) documented as of this encounter Visit Diagnoses Not on filedocumented in this encounter
--- OUTSIDE RECORDS SUMMARY | 2022-03-29 07:59 | XMS_ITS | Encounter Summary ---
:1950 Author Organization [facility] Address [address] [place] [address] Care Team Providers Name Role Phone Unavailable Primary Care Provider Unavailable Encounter Details Date Type Department Care Team Description 11/11/2011 Hospital Encounter HX [facility] Riley Jimenez M.D. 1518 [facility], [facility] [address] [phone] Social History Tobacco Use Types Packs/Day [...] How often do you attend amish or scientologist services? 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 - 11/11/2011 12:00 AM CDT [id number] CHIEF COMPLAINT/REASON FOR VISIT 1 Follow up 2. Review test results. HISTORY OF PRESENT ILLNESS This is a 61-year-old man came in today for followup. I saw him on October 21, 2011, because of right upper quadrant abdominal pain associated with nausea. Gallbladder pathology was suspected he had abdominal ultrasound same day. It was unremarkable except for right kidney cyst. Abdominal x-ray and chest x-ray showed non obstructive bowel gas pattern without evidence of free air. No acute airspace disease. Complete blood count unremarkable basic metabolic profile unremarkable. Liver profile, lipase and amylase were normal. Sedimentation rate was just above normal at 24. He had a HIDA scan at [facility] on November 07, 2011 it was normal. He has been doing well. He does not have abdominal pain at all. Since he has changed his diet he stay with from dairy products. He does not eat butter or sour cream. He has been eating more vegetables and drink skin milk and he eats tomatoes. There was no fever, chills. There was no nausea. There was no vomiting at all. He moves bowels every day. There was no blood mucous in his stool. He needs to make an appointment to see Dr. Lieberman general surgeon for further evaluation. He has not done yet because he just completed HIDA scan last week. Today he is complaining of joint pain. He has significant pain in the shoulder knee and hip. There was no recent injury or trauma. He saw Dr. King in 2009 he was diagnosed with degenerative joint disease of the knee shoulder and hip he did receive steroid injection to right shoulder it helped him for 3 to 4 weeks. Patient was told by Dr. Ivan King that in near future, he is going to need surgery for shoulder and knee. Currently he does not take prescription pain medications. Patient does not want to go back to see Dr. Ivan King because of corticosteroid injection that did not last long. I reviewed x-ray report from March 27, 2010. 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 He had MRI of the cervical spine on April 02, 2010 he was noted to have C5-C6 and C6-7 disc bulging with osteophytic ridging. Mild to moderate central canal narrowing, [id number] bilateral foraminal narrowing at C5-C6 moderate right and mild left foraminal narrowing at C6-7, C3-C4 disk/osteophyte complex with mild central canal narrowing and mild foraminal narrowing. After discussion, he would like to see orthopedic he will be referred to see orthopedic from [facility] in [place]. CURRENT MEDICATIONS 1. Combivent inhaler 2 puffs 4 times a day 2. Albuterol inhaler 2 puffs four times a day as needed. 3. Lisinopril/hydrochlorothiazide 25 mg/20 mg 1-1/2 tablets by mouth daily in the morning 4. Excedrin migraine 3 tablets by mouth as needed for headache. ALLERGIES No known drug allergies. SYSTEMS REVIEW As per the history of present illness. Other systems are reviewed and are negative. PAST MEDICAL/SURGICAL HISTORY 1. 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 He has been followed with Dr. Camejo. 2. Hypokalemia. 3. Obesity. 4. Tobacco use. He started smoking again 5. History of partial complex seizures. Currently asymptomatic 6. Migraine headache 7. Hypertension 8. 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 9. Arthralgia following after intravesical and BCG therapy 10. Degenerative disc disease of cervical and lumbar spine 11. Insomnia 12. Fatigue 13. Snoring 14. Status post appendectomy 1967 15. 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 16. Status post left C5-C6 foraminotomy and hemilaminectomy, left C6-C7 foraminotomy and hemilaminectomy and diskectomy 05/31/1999. 17. Excision of lipoma from back 07/16/1999. 18. Excision of lipoma from anterior abdominal wall 02/19/2010. 19. Status post bilateral cataract extraction in 2008. 20. Status post transurethral resection of bladder tumor. 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 SOCIAL HISTORY He is single. He lives alone. He started smoking again. Denies alcohol or drug abuse. He is active. He still working at [employer] in [facility]. FAMILY HISTORY Asthma in brother. Father had liver and pancreas cancer, lung cancer in sister. Mother has cataract and glaucoma, hearing loss in father. Hypertension in mother and brother. Parkinson disease in father. VITAL SIGNS BODY WEIGHT 95.5. TEMPERATURE 36.8 PULSE 80 RESPIRATIONS 32 on arrival. BLOOD PRESSURE 128/70. Left arm sitting. PHYSICAL EXAMINATION GENERAL: Patient is sitting. No distress. Able to talk without interruption. He is overweight. IMPRESSION/REPORT/PLAN 1. Abdominal pain in right upper quadrant with nausea, which is resolved since he changed his diet. He has to stay away from dairy products, butter and sour cream. He has been eating more vegetables. I reviewed HIDA scan results. It was negative. He will make an appointment to see Dr. Lieberman for further evaluation and management. 2. Osteoarthritis involving shoulder joints and knee joints. I reviewed Dr. King's recommendations, previous x-rays and MRI results. After discussion it was decided to get orthopedic consultation at [facility] in [place]. Patient agreed with plan. All of his questions were answered. Return to clinic after surgical consultation and orthopedic consultation. Riley Sanchez M.D./francisco javier Electronically Signed By: RILEY SANCHEZ MD On: 11/11/2011 05:29 PM Modified by and Electronically Signed by: RILEY SANCHEZ MD On: 11/11/2011 05:29 PM Source: [facility] MHSDOLBEYNONRADSYS Document Id: [id number] documented in this encounter Miscellaneous Notes Telephone Encounter - Danyelle Nixon L.P.N. - 11/21/2011 10:54 AM CDT Phone Message Document Contains Addenda Addendum by GRIS RICE on 21 November 2011 12:03:13 CDT Patient notified. Addendum by RILEY SANCHEZ MD on 21 November 2011 11:48:19 CDT From: RILEY SANCHEZ MD To: DANYELLE NIXON; Cc: BARB GILL LPN; Sent: 11/21/2011 11:48:19 CDT ! Subject: RE: Phone Message Actions: Notify patient- refer to General Message Please call him to go to ED if he continues to have vomiting & diarrhea. I can see him tomorrow late in the morning. Ask him to come in at 11:00 AM. Call hotel front desk clerk to set up appointment. Addendum by DANYELLE NIXON on 21 November 2011 10:54:54 CDT From: DANYELLE NIXON To: DANYELLE NIXON; Sent: 11/21/2011 10:54:54 CDT Subject: FW: Phone Message From: DANYELLE NIXON To: RILEY SANCHEZ MD; GRIS RICE; Sent: 11/21/2011 10:54:22 CDT Subject: Phone Message Caller is: ( x ) Patient ( ) Mother ( ) Father ( ) Spouse ( ) Daughter ( ) Son ( ) Pharmacy ( ) Other: Physician: Patient MRN #: Reason for Call: Message:Would like to see Dr. Sanchez as quickly as possible-have some circumstances. Please call me.(called patient to find out information) Last Friday he got real sick- had diarrhea and vomiting lost all of his fluid. Friday morning he passed out- hit his head on door. He came to had tenderness and sore , bump on back of his head. He had (a scheduled) appointment with Dr. Lieberman on Friday. Thought he may have had a viral infection. He is experiencing sensitive to light, kind of in a grog , gets lightheaded when bends down. Friend told him he may have concussion. Advice/Action: Source used: ( ) Verbalizes understanding [...] back cell phone number ( ) Source: [facility] hyperWALLET SystemsCHART Document Id: [id number] Electronically signed by Rivka [facility] Retail Sales Merchandiser [id number] at 10/06/2016 3:31 AM CDT Miscellaneous - Riley Sanchez M.D. - 11/11/2011 9:01 AM CDT Ambulatory Patient Summary [address] [address] Visit Information Name: CHRIS SEVEN AVINA Current Date: 11/11/2011 09:01:09 Physicians Attending Provider: RILEY SANCHEZ MD Primary [...] Jatinder Camejo MD Your Goals/Additional instructions: Source: [facility] POWERCHART Document Id: [id number] Miscellaneous - Riley Sanchez M.D. - 11/11/2011 9:01 AM CDT Ambulatory Depart Summary [facility] - [address] [address] Visit Information Name: SEVEN SALAZAR Visit Date: 11/11/2011 09:01:08 Attending Provider: RILEY SANCHEZ MD Primary Care [...] your provider for clarification. Additional Information: Source: [facility] POWERCHART Document Id: [id number] Miscellaneous - Alok Webster, L.P.N. - 11/11/2011 8:36 AM CDT Adult Processing Assistant Intake/History Adult Processing Assistant Intake/History Entered On: 11/11/2011 8:40 CDT Performed On: 11/11/2011 8:36 CDT by ALOK WEBSTER LPN Intake Chief Complaint : follow-up on test results Temperature Core : 36.8C(Converted to: 98.2DegF) Peripheral Pulse Rate : 80/min Respiratory Rate : 32/min (>HHI) Systolic Blood Pressure : 128mmHg Diastolic Blood Pressure : 70mmHg NIBP Mean : 89mmHg BP Location : Left upper extremity Blood Pressure Cuff Size : Regular Actual Weight : 95.5kg(Converted to: 210lb 9oz) Dosing Weight Clinic : 95.50kg ALOK WEBSTER RESOURCE ECONOMIST - 11/11/2011 8:36 CDT Subjective Pain Symptoms : No ALOK WEBSTER LPN - 11/11/2011 8:36 CDT Dependent Habits Tobacco Use/Currently Using : Yes Exposure to Tobacco Smoke : Patient smokes Smoking Status : Current every day smoker ALOK WEBSTER RESOURCE ECONOMIST - 11/11/2011 8:36 CDT Tobacco Use Grid Type : Cigarettes Cigarette Use Packs/Day : 0.5 Last Use : today ALOK WEBSTER LPN - 11/11/2011 8:36 CDT Caffeine Use Grid Caffeine Use : Current Type : Coffee, Tea Frequency : Daily Amount : 2 cup/day Last Use : today ALOK WEBSTER RESOURCE ECONOMIST - 11/11/2011 8:36 CDT Recreational Drug Use Grid Drug Use : None ALOK WEBSTER LPN - 11/11/2011 8:36 CDT Allergy Allergies (Active) NKA Estimated Onset Date: Unspecified ; Created By: DANYELLE NIXON; Reaction Status: Active ; Category:Drug ; Substance: NKA ; Type: Allergy ; Updated By: DANYELLE NIXON; Reviewed Date: 11/11/2011 8:36 CDT Source: [facility] POWERCHART Document Id: [id number] documented in this encounter Plan of Treatment Upcoming Encounters Date Type Specialty Care Team Description 04/12/2022 Office Visit Cardiovascular Disease Simone Gooden AP RN, C.N.P. [address] [phone] (Wo rk) documented as of this encounter Visit Diagnoses Not on filedocumented in this encounter
--- OUTSIDE RECORDS SUMMARY | 2022-03-29 07:59 | XMS_ITS | Encounter Summary ---
:1950 Author Organization [facility] Address [address] [place] [address] Care Team Providers Name Role Phone Unavailable Primary Care Provider Unavailable Encounter Details Date Type Department Care Team Description 10/21/[address] [facility] Riley Garcia M.D. 1518 [facility] [address] [phone] Social History Tobacco Use Types Packs/Day [...] How often do you attend yazidi or muslim services? 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 - 10/21/2011 4:20 PM CDT Results Notification Document Contains Addenda Addendum by BARB GILL LPN on 25 October 2011 13:43:55 CDT mailed From: RILEY SANCHEZ MD To: BARB GILL LPN Sent: 10/21/2011 16:20:26 CDT ! Show up: 10/21/2011 21:20:26 [facility] Subject: Results Notification Actions: Notify patient of results Source: [facility] POWERCHART Document Id: [id number] documented in this encounter Plan of Treatment Upcoming Encounters Date Type Specialty Care Team Description 04/12/2022 Office Visit Cardiovascular Disease Simone Gooden AP RN, C.N.P. [address] [place], [place] [phone] (Wo rk) documented as of this encounter Procedures Procedure Name Priority Date/Time Associated Diagnosis Comme nts US ABDOMEN COMPLETE Routine 10/21/2011 2:52 PM Re sults for this CDT procedure are i n the results section. documented in this encounter Results US Abdomen Complete (10/21/2011 2:52 PM CDT) Anatomical Region Laterality Modality Abdomen N/A Ultrasound Specimen (Source) Anatomical Collection Method Collection Time Re ceived Time Location / / Volume Laterality 10/21/2011 2:52 PM CDT Addenda Addendum by Provider, Javid Samson 10/21/2011 2:52 PM CDT RAD^^^OW US Abdomen Complete 10/21/2011 14:52:00 Narrative 10/21/2011 3:57 PM CDT Technique: Grayscale and color Doppler u ltrasound examination of the upper abdomen was obtained without prior studies available for comparison. Findings: The visualized head, body and part of the tail of the pancreas are unremarkable. The rest of t he pancreatic tail is not well visualized. The abdominal aorta and bilateral iliac arteries are normal in caliber. The liver demonstrate s normal echogenicity without focal lesions. The gallbladder is disten ded, without cholelithiasis or evidence of cholecystitis. The common bile duct is within normal limits. The right kidney is within marlee l limits. There is a 2.2 x 2.5 x 2.7 cm partially exophytic anechoi c structure arising from the inferior pole of the right kidney, with good through transmission, compatible with a cyst. The left kidney is also within normal limits. The spleen is unremarkable. The IVC is p atent proximally. The main portal vein is patent with normal flow d irection. Impression: Other than a 2.2 x 2.5 x 2.7 cm right re nal cyst, unremarkable. Procedure Note Boo Saavedra M.D. / ProviderPia M.D. - 09/24/2016 Technique: Grayscale and color Doppler u ltrasound examination of the upper abdomen was obtained without prior studies available for comparison. Findings: The visualized head, body and part of the tail of the pancreas are unremarkable. The rest of t he pancreatic tail is not well visualized. The abdominal aorta and bilateral iliac arteries are normal in caliber. The liver demonstrate s normal echogenicity without focal lesions. The gallbladder is disten ded, without cholelithiasis or evidence of cholecystitis. The common bile duct is within normal limits. The right kidney is within marlee l limits. There is a 2.2 x 2.5 x 2.7 cm partially exophytic anechoi c structure arising from the inferior pole of the right kidney, with good through transmission, compatible with a cyst. The left kidney is also within normal limits. The spleen is unremarkable. The IVC is p atent proximally. The main portal vein is patent with normal flow d irection. Impression: Other than a 2.2 x 2.5 x 2.7 cm right re nal cyst, unremarkable. Jay Anderson Jr. RRoldanMBhaveshS. IMG US PROCEDURES documented in this encounter Visit Diagnoses Not on filedocumented in this encounter
--- OUTSIDE RECORDS SUMMARY | 2022-03-29 07:59 | XMS_ITS | Encounter Summary ---
:1950 Author Organization [facility] Address [address] [place] [address] Care Team Providers Name Role Phone Unavailable Primary Care Provider Unavailable Encounter Details Date Type Department Care Team Description 12/04/2010 Hospital Encounter HX [facility] Leta Sanchez M.D. 1518 [facility], [facility] [address] [address] Social History Tobacco Use Types Packs/Day [...] How often do you attend jainism or quaker services? 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 [address] [phone] (Wo rk) documented as of this encounter Visit Diagnoses Not on filedocumented in this encounter
--- OUTSIDE RECORDS SUMMARY | 2022-03-29 07:59 | XMS_ITS | Encounter Summary ---
:1950 Author Organization [facility] Address [address] [place] [address] Care Team Providers Name Role Phone Unavailable Primary Care Provider Unavailable Encounter Details Date Type Department Care Team Description 02/08/2011 Hospital Encounter HX [facility] Riley Sanchez M.D. 1518 [facility], [facility] [address] [address] Social History Tobacco Use Types Packs/Day [...] How often do you attend muslim or uatsdin services? 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 - 02/10/2011 5:43 PM CDT Results Notification Document Contains Addenda Addendum by BARB GILL LPN on 11 February 2011 17:07:35 CDT From: BARB GILL LPN To: RILEY SANCHEZ MD; Sent: 02/11/2011 17:07:35 CDT Subject: RE: Results Notification patient is notified at appointment today From: RILEY SANCHEZ MD To: BARB GILL LPN Sent: 02/10/2011 17:43:31 CDT ! Show up: 02/10/2011 17:42:00 CDT Subject: Results Notification Actions: Notify patient of results Due Date/Time: 02/10/2011 17:42:00 CDT Source: [facility] QuesCom Document Id: [id number] Electronically signed by [employer], [facility] Mincing Machine Operator [id number] at 10/06/2016 4:02 PM CDT Miscellaneous - Riley Sanchez M.D. - 02/08/2011 4:42 PM CDT Results Notification Document Contains Addenda Addendum by BARB GILL LPN on 11 February 2011 18:41:16 CDT notified From: RILEY SANCHEZ MD To: BARB GILL LPN Sent: 02/08/2011 16:42:55 CDT ! Show up: 02/08/2011 16:42:00 CDT Subject: Results Notification Actions: Notify patient of results Due Date/Time: 02/08/2011 16:42:00 CDT Source: [facility] [employer]uesCom Document Id: [id number] Electronically signed by [employer], [facility] Mincing Machine Operator [id number] at 10/06/2016 4:02 PM CDT documented in this encounter Plan of Treatment Upcoming Encounters Date Type Specialty Care Team Description 04/12/2022 Office Visit Cardiovascular Disease Simone Gooden AP RN, C.N.P. [address] [place], [place] [phone] (Wo rk) documented as of this encounter Visit Diagnoses Not on filedocumented in this encounter
--- OUTSIDE RECORDS SUMMARY | 2022-03-29 07:59 | XMS_ITS | Encounter Summary ---
:1950 Author Organization [facility] Address [address] [place] [address] Care Team Providers Name Role Phone Unavailable Primary Care Provider Unavailable Encounter Details Date Type Department Care Team Description 11/18/2011 Hospital Encounter HX [facility] SURGEON Cristian Lieberman M.D. Social History Tobacco Use Types Packs/Day [...] How often do you attend bahai or gnosticism services? 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 - 11/18/2011 12:00 AM CDT [id number] CHIEF COMPLAINT/REASON FOR VISIT Right upper quadrant abdominal pain. HISTORY OF PRESENT ILLNESS This 61-year-old gentleman is referred by Dr. Sanchez because of right upper quadrant abdominal pain that he has had for several weeks. He has had right upper quadrant discomfort, kind of an achy pain, associated with nausea after fatty food intake. He had a recent episode last Friday where he actually had some diarrhea and then passed out when he got up from the toilet. He thought he was dehydrated at the time. That is the only time he has had diarrhea. He said he felt hot and sweaty on Friday night. The ultrasound of his gallbladder showed a distended gallbladder but otherwise was negative. He had a HIDA scan recently that had an ejection fraction of 88% which was normal. PAST MEDICAL HISTORY His past medical history includes an appendectomy, treatments for carcinoma of the bladder by Dr. 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 He had a colonoscopy in 2004. FAMILY HISTORY Father had pancreatic cancer and liver cancer. A sister had lung cancer. VITAL SIGNS Weight: 95.4 kilograms. Temperature: 37.0 Celsius. Pulse: 86 per/min. Respiratory rate: 16 per/min. Blood pressure: 135/78. PHYSICAL EXAM GENERAL: He is moderately obese. ABDOMEN: His abdomen is soft with some right upper quadrant and epigastric tenderness. I would say it is mild to moderate tenderness in that location. There is no rebound or guarding. The remainder of his exam is unremarkable. IMPRESSION/REPORT/PLAN Symptoms very suggestive of gallbladder type pain with radiation of pain to the back associated with nausea following fatty food intake. The patient is somewhat improved after being on a low-fat diet that Dr. Sanchez recommended. My recommendation on him would be to do an upper GI endoscopy to see if he might have some type of duodenitis or ulcer responsible for the right upper quadrant abdominal pain with nausea. Also, it has been seven years since he has had a colonoscopy. His recent diarrhea and just his overall symptom complex I think would be indicative of doing a total GI workup with a colonoscopy also. We have scheduled him for upper GI endoscopy and colonoscopy on 11/26/2011. Indra Lieberman M.D./addis Electronically Signed By: INDRA LIEBERMAN MD On: 11/22/2011 09:54 AM Source: [facility] MHSDOLBEYNONRADSYS Document Id: [id number] documented in this encounter Nursing Notes Conversion, Historical Provider Ser - 11/21/2011 11:39 AM CDT Prior Auth [facility] [place] [address] Referral Authorization: Procedure or visit authorized for: Colonoscopy for abdominal pain and Upper GI for nausea. (CPT 39177 and 00390 per Karissa Michael) Referred by: Dr. Sanchez Contact Location: [facility] Contact Referred to: Dr. Lieberman Contact Location: [facility] Contact No Authorization Needed: yes or ___x___ no If yes, Referral valid: From: To: Number of visits approved for: Authorized by: Computer generated Contact Number: [phone] Date Authorized: 11-21-11 Reference Number: or ___x__ not applicable per Manufacturing Engineering Technician. Individual that received the Referral Authorization: GRAHAM Electronically Signed By: CLEO MAJOR LPN On: 11/21/2011 11:41 AM Source: [facility] POWERCHART Document Id: [id number] Elissa Peralta L.P.N. - 11/18/2011 4:12 PM CDT Colonoscopy/ UGI scheduled DATE: 11-18-11 SCHEDULED FOR: Colonoscopy and UGI AT [facility] WITH DR. LIEBERMAN DATE OF PROCEDURE: 11-26-11 TIME OF PROCEDURE: 9:00am PER: Dr. Sanchez / DR. PALMA ORDERS - PREP INSTRUCTIONS HAVE BEEN SENT TO THE PATIENT. - PATIENT ADVISED TO NOT TAKE ASPIRIN OR IBUPROFEN FOR 10 DAYS PRIOR TO THE SCHEDULED PROCEDURE. - INSURANCE REFFERAL DONE _X__YES ___NO - COPIES OF REFERRING HEALTHCARE PROVIDER NOTES SENT TO [facility]. Electronically Signed By: ELISSA PERALTA On: 11/18/2011 04:13 PM Source: [facility] POWERCHART Document Id: [id number] documented in this encounter Miscellaneous Notes Miscellaneous - Indra Lieberman M.D. - 11/18/2011 3:46 PM CDT Ambulatory Patient Summary [address] [address] Visit Information Name: SEVEN SALAZAR Current Date: 11/18/2011 15:46:37 Physicians Attending Provider: INDRA LIEBERMAN MD Primary Care Provider: RILEY SANCHEZ MD [...] Upcoming Appointments Date Time Location Reason Provider 12/02/2011 09:40 [facility] Follow up after consult with Dr. Lieberman & Orthopedic Laura DEWEY, [place] 04/13/2012 11:00 [facility] Urology 6 months follow up Jatinder Camejo MD Your Goals/Additional instructions: Source: [facility] POWERCHART Document Id: [id number] Miscellaneous - Indra Lieberman M.D. - 11/18/2011 3:46 PM CDT Ambulatory Depart Summary [address] [address] Visit Information Name: SEVEN SALAZAR Visit Date: 11/18/2011 15:46:36 Attending Provider: INDRA LIEBERMAN MD Primary Care Provider: RILEY SANCHEZ MD [...] your provider for clarification. Additional Information: Source: [facility] POWERCHART Document Id: [id number] Miscellaneous - Gemini Emery, R.N. 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 Intake/History Adult Bus Girl Intake/History Entered On: 11/18/2011 15:04 CDT Performed On: 11/18/2011 15:03 CDT by GEMINI EMERY Intake Chief Complaint : RUQ pain Temperature Core : 37.0C(Converted to: 98.6DegF) Peripheral Pulse Rate : 86/min Respiratory Rate : 16/min Heart Rhythm : Regular Systolic Blood Pressure : 135mmHg Diastolic Blood Pressure : 78mmHg NIBP Mean : 97mmHg BP Location : Right upper extremity Blood Pressure Cuff Size : Regular Actual Weight : 95.4kg(Converted to: 210lb 5oz) Weight Source : Standing scale Dosing Weight Clinic : 95.40kg GEMINI EMERY - 11/18/2011 15:03 CDT Subjective Pain Symptoms : No GEMINI EMERY - 11/18/2011 15:03 CDT Dependent Habits Tobacco Use/Currently Using : Yes Exposure to Tobacco Smoke : Patient smokes Smoking Status : Current every day smoker GEMINI EMERY - 11/18/2011 15:03 CDT Tobacco Use Grid Type : Cigarettes Cigarette Use Packs/Day : 0.5 Last Use : today GEMINI EMERY - 11/18/2011 15:03 CDT Caffeine Use Grid Caffeine Use : Current Type : Coffee, Tea Frequency : Daily Amount : 2 cup/day Last Use : today GEMINI EMERY - 11/18/2011 15:03 CDT Recreational Drug Use Grid Drug Use : None GEMINI EMERY - 11/18/2011 15:03 CDT Allergy Allergies (Active) NKA Estimated Onset Date: Unspecified ; Created By: SARAI NIXON; Reaction Status: Active ; Category:Drug ; Substance: NKA ; Type: Allergy ; Updated By: SARAI NIXON; Reviewed Date: 11/18/2011 15:02 CDT Source: [facility] POWERCHART Document Id: [id number] documented in this encounter Plan of Treatment Upcoming Encounters Date Type Specialty Care Team Description 04/12/2022 Office Visit Cardiovascular Disease Simone Gooden AP RN, C.N.P. [address] [phone] (Wo rk) documented as of this encounter Visit Diagnoses Not on filedocumented in this encounter
--- OUTSIDE RECORDS SUMMARY | 2022-03-29 07:59 | XMS_ITS | Encounter Summary ---
:1950 Author Organization [facility] Address [address] [place] [address] Care Team Providers Name Role Phone Unavailable Primary Care Provider Unavailable Encounter Details Date Type Department Care Team Description 01/08/2011 Hospital Encounter HX [facility] FB Riley Jimenez M.D. [address] [facility], [facility] [address] [phone] Social History Tobacco Use Types Packs/Day [...] How often do you attend temple or restorationist services? 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 - 01/08/2011 12:00 AM CDT [id number] CHIEF COMPLAINT/ REASON FOR VISIT 1. Follow up 2. Removal of skin tags. HISTORY OF PRESENT ILLNESS This is a 60-year-old white man came in today for followup. I saw him on December 07, 2010. He has arthralgia following after intravesical BCG therapy for urinary bladder cancer. Currently he takes prednisone. His arthritis symptoms is better. Patient does not have side effects from medications. He is taking Bactrim for PCP prophylaxis. He has hypertension when I saw him last time his blood pressure was slightly high. He does not have chest pain, shortness of breath, dizzy, lightheadedness. He is taking medication regularly and he continues to smoke tobacco. He had a blood test on January 03, 2011 and I reviewed with him about those test results, complete blood count was normal. Sedimentation rate was 16 which is normal. C-reactive protein is slightly high 8.9 which has decreased from 13.2. It was decided to cut back prednisone will monitor him clinically need to check inflammatory markers every month. It should be noted that he was referred to [facility]. He did not make an appointment because of his insurance coverage. CURRENT MEDICATIONS Reviewed and updated as per [...] no distress. Able to talk without interruption. SKIN: Remarkable for moles keratotic lesions and several skin tags around the neck, upper back and both axilla. IMPRESSION/REPORT/PLAN 1. Arthralgia with elevated sedimentation rate. Patient is feeling better. There is no arthralgia, joint aches or joint pain. Sedimentation rate was normal although C reactive protein is slightly high. After discussion it was decided to cut back prednisone. He will take 9 milligrams by mouth daily and it was decided to discontinue Bactrim therapy. Need to check sedimentation rate and C-reactive protein in a month. 2. Hypertension. On arrival his blood pressure was 156/90. Repeat blood pressure was 142/80. His blood pressure should be less than 130/80. He should cut back sodium in his diet. It is better if he can quit smoking. Advised him to come back in 2 weeks to check blood pressure. Will adjust blood pressure medications if it is needed. 3. Tobacco use. He continues to smoke tobacco. Encouraged him to quit smoking and he has to keep trying. 4. Multiple skin tags. Patient has several skin tags around the neck, upper back and both axillary area. The patient gave me verbal informed consent to proceed with excision of those skin tags. All these area were cleaned with Povidone iodine. Under aseptic conditions and sterile technique all the skin tags were removed without complications. Bleeding was minimal and controlled with silver nitrite. The patient tolerated the procedure very well. I removed a total of 29 skin tags, two from the right side of the neck, two from left side of the neck, two from upper back, 11 from left axilla and 12 from right axilla. Two large ones from upper back were sent to the lab for pathology examination. Advised patient to watch for bleeding and infection and he should call me right away if there is infection or bleeding. All of his questions were answered. Return to clinic in 1 month to check C-reactive protein and sedimentation rate. PP/kmk Signed Riley Sanchez M.D. Internal Medicine Electronically Signed By: RILEY SANCHEZ MD On: 02/06/2011 05:36 PM Modified by and Electronically Signed by: RILEY SANCHEZ MD On: 02/06/2011 05:36 PM Source: [facility] MHSDOLBEYNONRADSYS Document Id: [id number] documented in this encounter Miscellaneous Notes Miscellaneous - Riley Sanchez M.D. - 01/11/2011 5:33 PM CDT Results Notification Document Contains Addenda Addendum by BARB GILL LPN on 11 January 2011 18:14:00 CDT From: BARB GILL LPN To: RILEY SANCHEZ MD; Sent: 01/11/2011 18:14:00 CDT Subject: RE: Results Notification patient states he is doing well, is a bit sore , but no bleeding or sign of infection noted From: RILEY SANCHEZ MD To: MALINDA GILLRA Andrez STATON Sent: 01/11/2011 17:33:51 CDT ! Show up: 01/11/2011 17:32:00 CDT Subject: Results Notification Actions: Notify patient of results Due Date/Time: 01/11/2011 17:32:00 CDT Source: [facility] POWERCHART Document Id: [id number] Miscellaneous - Riley Sanchez M.D. - 01/08/2011 5:33 PM CDT Ambulatory Patient Summary [address] [address] Visit Information Name: SEVEN SALAZAR Current Date: 01/08/2011 17:33:50 Primary Care Provider: RILEY SANCHEZ MD Your Medications Here is a list of your medications. It is important to take your medications as directed. Use a pillbox or chart to help remind you to take your medications. Please let your doctor or nurse know if you have problems taking your medications. Medication/Strength Dose Route Frequency Indications/Special Instructions/Comments predniSONE (predniSONE 1 mg oral tablet) 4 mg Oral once a day with food / Take with 5 mg pill at thesame time. Total 9 mg PO Daily. predniSONE (predniSONE 5 mg oral tablet) 5 mg Oral once a day with food / Dose decreased on 01/08/2011. hydrochlorothiazide-lisinopril (hydrochlorothiazide-lisinopril 25 mg-20 mg oral tablet) [...] sites Active 09/28/2010 Skin Tags Active 12/07/2010 Your Recommendations We want to make sure [...] and stroke. Vaccine: Flu every 1 year 01/08/2011 Immunization to help prevent you from getting the flu strain expected to be a problem for that year's flu season. Vaccine: Tetanus every 10 years 02/12/2010 02/10/2020 Immunization to help prevent you from getting the serious disease Tetanus (Lockjaw). Your Upcoming Appointments Date Time Location Reason Provider No Appointments found Your Goals/Additional instructions: Source: [facility] POWERCHART Document Id: [id number] Electronically signed by Conversion, [facility] Performance Manager [id number] at 10/06/2016 1:37 PM CDT Miscellaneous - Riley Sanchez M.D. - 01/08/2011 5:33 PM CDT Ambulatory Depart Summary [id number] [place] [address] Visit Information Name: SEVEN SALAZAR Current Date: 01/08/2011 17:33:49 Primary Care Provider: RILEY SANCHEZ MD SEVEN SALAZAR has been given the following list of medications: Your Medications It is important to take your medications as directed. Use a pill box or chart to help remind you to take your medications. Please let your doctor or nurse know if you have problems taking your medications. Medication/Strength Dose Route Frequency Indications/Special Instructions/Comments predniSONE (predniSONE 1 mg oral tablet) 4 mg Oral once a day with food / Take with 5 mg pill at thesame time. Total 9 mg PO Daily. predniSONE (predniSONE 5 mg oral tablet) 5 mg Oral once a day with food / Dose decreased on 01/08/2011. hydrochlorothiazide-lisinopril (hydrochlorothiazide-lisinopril 25 mg-20 mg oral tablet) 1 tab(s) Oral once a day (at bedtime) Cancel previous prescriptions for HCTZ and lisinopril. Additional Information: Yes - Current list of reconciled medications is provided and explained to the patient and/or family, guardian/caregiver. 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 Intake/History Entered On: 01/08/2011 16:32 CDT Performed On: 01/08/2011 16:30 CDT by BARB GILL LPN Intake Actual Weight: 99.000kg(Converted to: 218lb 4oz) Dosing Weight Clinic: 99.00kg BARB GILL LPN - 01/08/2011 16:35 CDT Chief Complaint: follow up Peripheral Pulse Rate: 76/min Systolic Blood Pressure: 142mmHg (HI) Diastolic Blood Pressure: 80mmHg NIBP Mean: 101mmHg BP Location: Right upper extremity BARB GILL [facility] - 01/08/2011 16:30 CDT Subjective Pain Symptoms: No BARB GILL [facility] - 01/08/2011 16:30 CDT Dependent Habits Tobacco Use/Currently Using: Yes Exposure to Tobacco Smoke: Patient smokes BARB GILL [facility] - 01/08/2011 16:30 CDT Tobacco Use Grid Type: Cigarettes Cigarette Use Packs/Day: 0.5 Last Use: today BABR GILL [facility] - 01/08/2011 16:30 CDT Caffeine Use Grid Caffeine Use: Current Type: Coffee, Tea Frequency: Daily Amount: 2 cup/day Last Use: today BARB GILL [facility] - 01/08/2011 16:30 CDT Allergy Allergies (Active) NKA Estimated Onset Date: Unspecified ; Created By: SARAI NIXON; Reaction Status: Active ; Category:Drug ; Substance: NKA ; Type: Allergy ; Updated By: SARAI NIXON; Reviewed Date: 01/08/2011 16:30 CDT Source: [facility] SatmexCHART Document Id: [id number] documented in this encounter Plan of Treatment Upcoming Encounters Date Type Specialty Care Team Description 04/12/2022 Office Visit Cardiovascular Disease Simone Gooden AP RN, C.N.P. [address] [phone] (Wo rk) documented as of this encounter Procedures Procedure Name Priority Date/Time Associated Diagnosis Comme [facility] SURGICAL PATHOLOGY Routine 01/08/2011 5:31 PM Res ults for this CDT procedure are i n the results section. documented in this encounter Results Pathology Surgical Pathology, [facility] (01/08/2011 5:31 PM CDT) [facility] [place] Time Signature HXSurg IV [id number] POWERCHART [facility] HXSurg IV See Comment POWERCHART [facility] Comment: RESULT: Riley Sanchez M.D. HXSurg IV [facility] See Comment POWERCHA RT Comment: [facility] [address] [place] [address] [phone] SLIDE DISPOSITION: HXSurg IV Ts [facility] See Comment POWER CHART Comment: [id number] A. ??Received in formalin labeled with t he patient's name and medical record number as [id number] and labeled skin lesion back is a 0.6 x 0.5 x 0.4 cm white polypoid skin which is inked, bisected and all submitted as A1. B.Received in formalin labeled with the patient's name and medical record number as [id number] and labeled skin lesion back is a 0.8 x 0.8 x 0.6 cm polypoid white skin which is inked, bisected and all submitted as B1. Part A: ??Back 1 skin lesion back Part B: ??Back 1 skin lesion back [facility] See Comment POWER CHART Comment: A. ??Skin, back, site note specified, bi opsy: Benign skin with mild, non-specific superficial dermal and armond -vascular chronic inflammation. B. ??Skin, back, site not specified, bio psy: ??Benign skin with features suggestive of inflamed seborrhe ic keratosis. HXSurg IV [facility] See Comment POWER CHART Comment: RESULT: 01/11/2011 17:06 Interpreted by: Sam Briceno M.D., PhD. Report electronically signed by Jalen Briceno M.D., PhD. Transcribed by: [email or web address] 01/11/2011 16:59:56 Test Performed by: [facility] Dpt of Lab Med and Pathology [address] [place] [address] Ecotherapist: Cem cali III, M.D. Specimen (Source) Anatomical Collection Method Collection Time Re ceived Time Location / / Volume Laterality Tissue 01/08/2011 5:31 PM CDT Riley Sanchez M.D. LAB SURG PATH ORDERABLES Performing Organization Address City/State/ZIP Code Phon e Number POWERCHART documented in this encounter Visit Diagnoses Not on filedocumented in this encounter
--- OUTSIDE RECORDS SUMMARY | 2022-03-29 07:59 | XMS_ITS | Encounter Summary ---
:1950 Author Organization [facility] Address [address] [place] [address] Care Team Providers Name Role Phone Unavailable Primary Care Provider Unavailable Encounter Details Date Type Department Care Team Description 09/28/2010 Hospital Encounter HX [facility] Riley Jimenez M.D. 1518 [facility], [facility] [address] [phone] Social History Tobacco Use Types Packs/Day [...] How often do you attend bahai or adventist services? 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 - 09/28/2010 2:12 PM CDT Ambulatory Patient Summary [id number] [facility] [place] [address] Visit Information Name: SEVEN SALAZAR Current Date: 09/28/2010 14:12:09 Primary Care Provider: RILEY SANCHEZ MD Your Medications Here is a list of your medications. It is important to take your medications as directed. Use a pillbox or chart to help remind you to take your medications. Please let your doctor or nurse know if you have problems taking your medications. Medication/Strength Dose Route Frequency Indications/Special Instructions/Comments predniSONE (predniSONE 20 mg oral tablet) 20 [...] in shoulder Active 03/26/2010 Arthritis Active 08/31/2010 Your Recommendations We want to make sure [...] Diabetes and/or Vascular: LDL every 1 year 09/28/2010 Screening Colonoscopy or Flex Sig or Occult Blood X3 02/22/2005 02/20/2015 Checks for signs of cancer of the colon. Lipid Panel every 5 years Age 20-75 09/28/2010 Checks blood for good (HDL) and bad (LDL) cholesterol. Know your numbers, they are one indicator of your risk for heart attack and stroke. Vaccine: Flu every 1 year 09/28/2010 Immunization to help prevent you from getting the flu strain expected to be a problem for that year's flu season. Vaccine: Tetanus every 10 years 02/12/2010 02/10/2020 Immunization to help prevent you from getting the serious disease Tetanus (Lockjaw). Your Upcoming Appointments Date Time Location Reason Provider 10/08/2010 15:00 [facility] Urology systal Jatinder Camejo MD Your Goals/Additional instructions: Source: [facility] POWERCHART Document Id: [id number] Electronically signed by Rivka [facility] Director Consumer [id number] at 10/06/2016 6:26 PM CDT Miscellaneous - Riley aSnchez M.D. - 09/28/2010 2:12 PM CDT Ambulatory Depart Summary [address] [address] Visit Information Name: SEVEN SALAZAR Current Date: 09/28/2010 14:12:09 Primary Care Provider: RILEY SANCHEZ MD SEVEN SALAZAR has been given the following list of medications: Your Medications It is important to take your medications as directed. Use a pill box or chart to help remind you to take your medications. Please let your doctor or nurse know if you have problems taking your medications. Medication/Strength Dose Route Frequency Indications/Special Instructions/Comments predniSONE (predniSONE 20 mg oral tablet) 20 mg Oral once a day (in the morning) with food hydrochlorothiazide-lisinopril (hydrochlorothiazide-lisinopril 25 mg-20 mg oral tablet) 1 tab(s) Oral once a day (at bedtime) Cancel previous prescriptions for HCTZ and lisinopril. Additional Information: Yes - Current list of reconciled medications is provided and explained to the patient and/or family, guardian/caregiver. Source: [facility] POWERCHART Document Id: [id number] Electronically signed by Conversion, [facility] Director Consumer [id number] at 10/06/2016 6:26 PM CDT Miscellaneous - Conversion, Historical Provider Ser - 09/28/2010 1:51 PM CDT Ambulatory Vitals Height Weight Ambulatory Vitals Height Weight Entered On: 09/28/2010 13:52 CDT Performed On: 09/28/2010 13:51 CDT by PRACHI GRIMM Vitals/Ht/Wt Systolic Blood Pressure: 160mmHg (HI) Diastolic Blood Pressure: 80mmHg NIBP Mean: 107mmHg BP Location: Left upper extremity PRACHI GRIMM - 09/28/2010 13:51 CDT Source: [facility] [email or web address] Document Id: [id number] CDT!6 Miscellaneous - Conversion, Historical Provider Ser - 09/28/2010 1:50 PM CDT 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/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 Entered On: 09/28/2010 13:51 CDT Performed On: 09/28/2010 13:50 CDT by PRACHI GRIMM Intake Chief Complaint: recheck Temperature Core: 36.5C(Converted to: 97.7DegF) Peripheral Pulse Rate: 60/min Respiratory Rate: 20/min Systolic Blood Pressure: 144mmHg (HI) Diastolic Blood Pressure: 84mmHg NIBP Mean: 104mmHg BP Location: Left upper extremity SpO2: 99% Heart Rhythm: Regular Oxygen Therapy: Room air Actual Weight: 94.000kg(Converted to: 207lb 4oz) Weight Source: Standing scale Dosing Weight Clinic: 94.00kg PRACHI GRIMM - 09/28/2010 13:50 CDT Subjective Pain Symptoms: No PRACHI GRIMM - 09/28/2010 13:50 CDT Dependent Habits Tobacco Use/Currently Using: Yes Exposure to Tobacco Smoke: Patient smokes PRACHI GRIMM - 09/28/2010 13:50 CDT Tobacco Use Grid Type: Cigarettes Cigarette Use Packs/Day: 0.5 Last Use: today PRCAHI GRIMM - 09/28/2010 13:50 CDT Alcohol Use: No PRACHI GRIMM - 09/28/2010 13:50 CDT Caffeine Use Grid Caffeine Use: Current Type: Coffee, Tea Frequency: Daily Amount: 2 cup/day Last Use: today PRACHI GRIMM - 09/28/2010 13:50 CDT Allergy Allergies (Active) NKA Estimated Onset Date: Unspecified ; Created By: SARAI NIXON; Reaction Status: Active ; Category:Drug ; Substance: NKA ; Type: Allergy ; Updated By: SARAI NIXON; Reviewed Date: 09/28/2010 8:24 CDT [facility] Document Id: [id number] documented in this encounter Plan of Treatment Upcoming Encounters Date Type Specialty Care Team Description 04/12/2022 Office Visit Cardiovascular Disease Simone Gooden AP RN, C.N.P. [address] [phone] (Wo rk) documented as of this encounter Visit Diagnoses Not on filedocumented in this encounter
--- OUTSIDE RECORDS SUMMARY | 2022-03-29 07:59 | XMS_ITS | Encounter Summary ---
:1950 Author Organization [facility] Address [address] [place] [address] Care Team Providers Name Role Phone Unavailable Primary Care Provider Unavailable Encounter Details Date Type Department Care Team Description 10/21/2011 Hospital Encounter HX [facility] Riley Jimenez M.D. 1518 [facility] [address] [address] 761 Social History Tobacco Use Types Packs/Day [...] How often do you attend restoration or oriental orthodox services? 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 - 10/21/2011 12:00 AM CDT [id number] CHIEF COMPLAINT/ REASON FOR VISIT 1. Abdominal pain with nausea 2. Joint pain. HISTORY OF PRESENT ILLNESS This is a 61-year-old man came in today for above complaints. He has not been feeling well since last week. He noticed upper abdominal pain following after eating. Abdominal pain is located on right upper quadrant area throbbing in nature. He noticed pain both anterior and posteriorly. He does not recall any injury or trauma. Because of significant pain, he missed his work. He works at [email or web address] in [place]. He also needed a work excuse. Right now he does not have significant pain. He does not have shoulder pain. Yesterday he ate potato with butter for lunch after that he has started having pain again associated with nausea. He did not have vomiting. There was no fever or chills. He still has gallbladder. He does not have history of gallstones. He has not ate anything since last night. This morning, he drank water and tea. He was able to keep it down. Patient has joint pain which is chronic and constant. There was no swelling. He does not notice skin rash. His main concern is abdominal pain with nausea. Patient smoke tobacco. He continues to smoke cigarettes. He does not drink alcohol. He denies change in diet or medications. He saw Dr. Camejo, 2 weeks ago for bladder cancer follow up and he had a cystoscopy CURRENT MEDICATIONS Reviewed and updated as per the EMR. ALLERGIES Reviewed and updated as per the EMR. SYSTEMS REVIEW As per the history of present illness. Other systems are reviewed and are negative. PAST MEDICAL/SURGICAL HISTORY Reviewed and updated as per the EMR. PREVENTIVE SERVICES Reviewed and updated as per the EMR. VITAL SIGNS Reviewed and updated as per the EMR. PHYSICAL EXAM GENERAL: Patient is sitting. No distress. Able to talk without interruption. HEAD: No facial rash, asymmetry or sinus tenderness. EYES: PERRLA. EOMI. No pallor, icterus or conjunctivitis. ENT: No nasal congestion, discharge or bleeding. There is no ear infection or discharge. No mastoid tenderness. Tongue is moist and midline. No oral lesions. LYMPH NODES: There was no cervical or supraclavicular lymphadenopathy. HEART: No carotid bruit. No JVD. Regular rhythm. There is no S3, gallop, murmur or thrill. LUNGS: Normal respiratory effort. Clear to auscultation. Normal percussion. ABDOMEN: Moves with respiration. There was no visible peristalsis bowel sounds present. Soft. Mild discomfort in right upper quadrant area. No rebound tenderness, guarding, rigidity. I do not see skin rash on right upper quadrant or posterior back suggestive for shingles. EXTREMITIES: No clubbing, cyanosis, edema, infection or calf tenderness. MENTAL: Alert and oriented x 3. Normal mood and affect. NEURO: Grossly nonfocal exam. IMPRESSION/REPORT/PLAN 1. Right upper quadrant abdominal pain with nausea. Clinically there is no evidence of acute abdomen. X-ray abdomen two views with chest one view was obtained. There was no free air under the diaphragm or intestinal obstruction. Chest x-ray was unremarkable. It was decided to get abdominal ultrasound to look for gallbladder pathology. It was unremarkable except for 2.2 x 2.5 x 2.7 cm right renal cyst. Complete blood count was obtained. There was no leukocytosis. Basic metabolic profile remarkable for BUN 26, CO2 30, chloride 95, sedimentation rate was slightly high 24. Liver profile, amylase was normal. Lipase was sent out. I discussed further evaluation and management with patient. His presenting symptom is suggestive for gallbladder disease although ultrasound was unremarkable. Advised him to stay away from fried food and fatty foods. He should eat a clear liquid diet. It was decided to schedule - HIDA scan tomorrow at [facility]. I spoke with Dr. Lieberman and requesting his consultation. Dr. Lieberman agreed to see the patient this October following after HIDA scan. Patient agreed with plan. Patient was given work excuse until October 22, 2011. He would like to go back to work on October 23, 2011. He does not think he needs medication for nausea. Advised him to call me if he needs one. Otherwise he will continue current medications and he should contact me if there is worsening of symptom. 2. Joint pains. According to the patient joint pain was not the reason he made appointment today. He has joint pain and arthralgia all the time, which is unchanged. He may take ppkf-efh-vnejihp pain medication. All of his questions were answered. Return to clinic after Dr. Lieberman consultation. Today's studies: Ultrasound abdomen, x-ray abdomen two views and chest 1 view, sedimentation rate, lipase, liver profile, complete blood count, basic metabolic profile and amylase. Time spent more than 30 minutes, more than half the time is for counseling, coordination of care, reviewing test results and answering his questions. PP/kmk Signed Riley Sanchez M.D. Internal Medicine Electronically Signed By: RILEY SANCHEZ MD On: 10/23/2011 04:54 PM Modified by and Electronically Signed by: RILEY SANCHEZ MD On: 10/23/2011 04:54 PM Source: [facility] MHSDOLBEYNONRADSYS Document Id: [id number] documented in this encounter Miscellaneous Notes Miscellaneous - Riley Sanchez M.D. - 10/23/2011 4:26 PM CDT Results Notification Document Contains Addenda Addendum by BARB GILL LPN on 25 October 2011 13:43:44 CDT mailed From: RILEY SANCHEZ MD To: BARB GILL LPN Sent: 10/23/2011 16:26:50 CDT ! Show up: 10/23/2011 21:26:50 [facility] Subject: Results Notification Actions: Notify patient of results Source: [facility] POWERCHART Document Id: [id number] Electronically signed by Rivka [facility] Hospital[facility] Gasser Machine Operator [id number] at 10/05/2016 7:14 PM CDT Miscellaneous - Riley Sanchez M.D. - 10/21/2011 4:39 PM CDT Ambulatory Patient Summary [address] [address] Visit Information Name: SEVEN SALAZAR Current Date: 10/21/2011 16:39:15 Physicians Attending Provider: RILEY SANCHEZ MD Primary [...] 16:00 [facility] Follow-up. Riley Sanchez MD 04/13/2012 11:00 [facility] 6 months follow up Jatinder Camejo MD Your Goals/Additional instructions: Source: [facility] POWERCHART Document Id: [id number] Miscellaneous - Riley Sanchez M.D. - 10/21/2011 4:39 PM CDT Ambulatory Depart Summary [address] [address] Visit Information Name: SEVEN SALAZAR Visit Date: 10/21/2011 16:39:14 Attending Provider: RILEY SANCHEZ MD Primary Care [...] your provider for clarification. Additional Information: Source: [facility] [employer] Document Id: [id number] Miscellaneous - Riley Sanchez M.D. - 10/21/2011 4:38 PM CDT School or Work Excuse School or Work Excuse Entered On: 10/21/2011 16:38 CDT Performed On: 10/21/2011 16:38 CDT by RILEY SANCHEZ MD School or Work Excuse Date Patient Seen : 10/21/2011 CDT School or Work Restrictions : Other: Work Excuse Date of Return to School/Work Without Restrictions : 10/23/2011 CDT Comment : Work Excuse starting from 10/16/2011 to 10/22/2011. RILEY SANCHEZ MD - 10/21/2011 16:38 CDT Source: [facility] [employer] Document Id: [id number] Jodicelljen - Riley Sanchez M.D. - 10/21/2011 4:19 PM CDT Results Notification Document Contains Addenda Addendum by BARB GILL LPN on 25 October 2011 13:44:07 CDT mailed From: RILEY SANCHEZ MD To: BARB GILL LPN Sent: 10/21/2011 16:19:42 CDT ! Show up: 10/21/2011 21:19:42 [facility] Subject: Results Notification Actions: Notify patient of results Source: [facility] [employer] Document Id: [id number] Miscellaneous - Conversion, Historical Provider Ser - 10/21/2011 2:30 PM CDT Adult Manager Program Intake/History Adult Manager Program Intake/History Entered On: 10/21/2011 14:34 CDT Performed On: 10/21/2011 14:30 CDT by BARB GILL [facility] Intake Chief Complaint : weak all over, throb on right side after eating Onset of Symptoms : month? Temperature Core : 37.2C(Converted to: 99.0DegF) Peripheral Pulse Rate : 80/min Respiratory Rate : 18/min Heart Rhythm : Regular Systolic Blood Pressure : 92mmHg Diastolic Blood Pressure : 62mmHg NIBP Mean : 72mmHg BP Location : Right upper extremity Blood Pressure Cuff Size : Large BRIDGET BARB C [facility] - 10/21/2011 14:30 CDT Subjective Pain Symptoms : No BARB GILL [facility] - 10/21/2011 14:30 CDT Dependent Habits Tobacco Use/Currently Using : Yes Tobacco Use/Advised to Quit : Yes Exposure to Tobacco Smoke : Patient smokes Smoking Status : Current every day smoker BARB GILL [facility] - 10/21/2011 14:30 CDT Tobacco Use Grid Type : Cigarettes Cigarette Use Packs/Day : 0.5 Last Use : today BARB GILL [facility] - 10/21/2011 14:30 CDT Caffeine Use Grid Caffeine Use : Current Type : Coffee, Tea Frequency : Daily Amount : 2 cup/day Last Use : today [facility] - 10/21/2011 14:30 CDT Recreational Drug Use Grid Drug Use : None [facility] - 10/21/2011 14:30 CDT Allergy Allergies (Active) NKA Estimated Onset Date: Unspecified ; Created By: SARAI NIXON; Reaction Status: Active ; Category:Drug ; Substance: NKA ; Type: Allergy ; Updated By: SARAI NIXON; Reviewed Date: 10/21/2011 14:28 CDT Source: [facility] POWERCHART Document Id: [id number] documented in this encounter Plan of Treatment Upcoming Encounters Date Type Specialty Care Team Description 04/12/2022 Office Visit Cardiovascular Disease Simone Gooden AP RN, C.N.P. [address] [address] [phone] (Wo rk) documented as of this encounter Procedures Procedure Name Priority Date/Time Associated Comments Diagnosis DX ABDOMEN SUPINE AND Routine 10/21/2011 3:42 PM Results for this UPRIGHT 2 VIEWS CDT procedure ar e in the results section. HEPATIC FUNCTION Routine 10/21/2011 2:53 PM Resul ts for this PANEL, S CDT procedure are i n the results section. AUTOMATED Routine 10/21/2011 2:53 PM Results f or this DIFFERENTIAL, B CDT procedure ar e in the results section. SEDIMENTATION RATE, B Routine 10/21/2011 2:53 PM Results for this CDT procedure are i n the results section. CBC WITH DIFFERENTIAL, Routine 10/21/2011 2:53 PM Results for this B CDT procedure are i n the results section. LIPASE, S/P Routine 10/21/2011 2:53 PM Results f or this CDT procedure are i n the results section. AMYLASE, TOT, S Routine 10/21/2011 2:53 PM Result s for this CDT procedure are i n the results section. BASIC METABOLIC PANEL, Routine 10/21/2011 2:53 PM Results for this S/P CDT procedure are i n the results section. documented in this encounter Results DX Abdomen Supine and Upright 2 Views (10/21/2011 3:42 PM CDT) Anatomical Region Laterality Modality Abdomen Right Radiographic Imaging Specimen (Source) Anatomical Collection Method Collection Time Re ceived Time Location / / Volume Laterality 10/21/2011 3:42 PM CDT Addenda Addendum by Provider, Javid Samson 10/21/2011 3:42 PM CDT RAD^^^OW XR Abdomen 2 views w ??Chest 1 view 10/21/2011 15:42:00 Narrative 10/21/2011 4:13 PM CDT Comparison: None, chest x-ray performed 10/01/2011. History: 61 year old male with abdominal pain. Findings: There is a non- obstructed bow el gas pattern. There is no evidence for free air. No acute airspace opacity is observed. Impression: 1. Non- obstructed bowel gas pattern wit hout evidence for free air. 2. No acute airspace disease. Procedure Note Miguel Mancilla M.D. / Provider, iNtesh bello M.D. - 09/24/2016 Comparison: None, chest x-ray performed 10/01/2011. History: 61 year old male with abdominal pain. Findings: There is a non- obstructed bow el gas pattern. There is no evidence for free air. No acute airspace opacity is observed. Impression: 1. Non- obstructed bowel gas pattern wit hout evidence for free air. 2. No acute airspace disease. Katlyn Byrd(R), ROmar(R)(M) IMG DIAGNOSTIC IMAGING PROCEDURES Automated Differential (10/21/2011 2:53 PM CDT) athologist Signature Neutro % 64.5 34.0 - 67.9 POWERCHART Lymphocytes % 23.3 21.8 - 53.1 POWERCHART HX [place] % 9.4 5.3 - 12.2 POWERCHART HX Eos % 2.3 0.8 - 7.0 POWERCHART HX Baso % 0.5 0.2 - 1.2 POWERCHART Specimen Anatomical Collection Method Collection Time Receive d Time (Source) Location / / Volume Laterality Blood 10/21/2011 2:53 PM 2 2:53 CDT PM CDT Riley Sanchez M.D. LAB BLOOD ADD-ON Performing Organization Address City/State/ZIP Code Phon e Number POWERCHART (ABNORMAL) Sedimentation Rate (10/21/2011 2:53 PM CDT) [facility] gist Method Time Signature Sedimentation 24 (H) 0 - 22 POWERCHART Rate, B MMHR Specimen (Source) Anatomical Collection Method Collection Time Re ceived Time Location / / Volume Laterality Blood 10/21/2011 2:53 PM CDT Riley Sanchez M.D. LAB BLOOD ADD-ON Performing Organization Address City/State/ZIP Code Phon e Number POWERCHART CBC with Differential (10/21/2011 2:53 PM CDT) athologist Signature Leukocytes 10.3 3.5 - 10.5 POWERCHART X109L Erythrocytes 5.37 4.32 - POWERCHART 5.72 [id number] Hemoglobin 15.7 13.5 - POWERCHART 17.5 GDL Hematocrit 44.2 38.8 - POWERCHART 50.0 MCV 82.3 81.0 - POWERCHART 95.0 FL Platelet Count 348 150 - 450 POWERCHART X109L HX RDW 13.9 11.8 - POWERCHART 15.6 HXDifferential? Auto POWERCHART Specimen (Source) Anatomical Collection Method Collection Time Re ceived Time Location / / Volume Laterality Blood 10/21/2011 2:53 PM CDT Phunt Phyo M.D. LAB BLOOD ADD-ON Performing Organization Address City/[facility] Code Phon e Number POWERCHART Lipase (10/21/2011 2:53 PM CDT) athologist Signature Lipase, S 36 10 - 73 POWERCHART UNITL Comment: Test Performed by: [place] [address] Chairlift Operator: Cem cali III, M.D. Specimen (Source) Anatomical Collection Method Collection Time Re ceived Time Location / / Volume Laterality Blood 10/21/2011 2:53 PM CDT Phunt Phyo M.D. LAB BLOOD ADD-ON Performing Organization Address City/[facility]/ZIP Code Phon e Number POWERCHART Amylase, Total (10/21/2011 2:53 PM CDT) athologist Signature Amylase, Total, 94 30 - 110 POWERCHART S UNITL Specimen (Source) Anatomical Collection Method Collection Time Re ceived Time Location / / Volume Laterality Blood 10/21/2011 2:53 PM CDT Phunt Phyo M.D. LAB BLOOD ADD-ON Performing Organization Address City/[facility]/ZIP Code Phon e Number POWERCHART Hepatic Function Panel (10/21/2011 2:53 PM CDT) [facility] gist Method Time Signature Albumin, S 4.7 3.5 - 5.0 POWERCHART GMDL Alkaline 100 45 - 115 POWERCHART Phosphatase, S UNITL Aspartate 23 8 - 48 POWERCHART Aminotransferase UNITL (AST), S Alanine 27 21 - 72 POWERCHART Amniotransferase, LD UNITL Bilirubin, Total, S 0.6 0.1 - 1.0 POWERCHART MGDL Bilirubin, Direct, S 0.2 0.0 - 0.3 POWERCHAR T MGDL Total Protein, S 8.2 6.3 - 8.2 POWERCHART MGDL Specimen (Source) Anatomical Collection Method Collection Time Re ceived Time Location / / Volume Laterality Blood 10/21/2011 2:53 PM CDT Riley Sanchez M.D. LAB BLOOD ADD-ON Performing Organization Address City/State/ZIP Code Phon e Number POWERCHART (ABNORMAL) BMP (Basic Metabolic Panel) (10/21/2011 2:53 PM CDT) P athologist Signature BUN (Blood Urea 26 (H) 7 - 23 POWERCHART Nitrogen), S MGDL Creatinine 1.1 0.9 - 1.4 POWERCHART MGDL Glucose 96 POWERCHART Potassium, S 4.2 3.5 - 4.8 POWERCHART MMOLL Sodium, S 136 135 - 145 POWERCHART MMOLL Chloride, S 95 (L) 100 - 108 POWERCHART MMOLL CO2 Total 30 (H) 22 - 29 POWERCHART MMOLL Calcium, Total, 10.3 8.5 - 10.5 POWERCHART S MGDL BUN/Creatinine 23 POWERCHART Ratio HXeGFR (MDRD) >60 MLMIN POWERCHART eGFR >60 MLMIN POWERCHART Black/ Specimen (Source) Anatomical Collection Method Collection Time Re ceived Time Location / / Volume Laterality Blood 10/21/2011 2:53 PM CDT Riley Sanchez M.D. LAB BLOOD ADD-ON Performing Organization Address City/State/ZIP Code Phon e Number POWERCHART documented in this encounter Visit Diagnoses Not on filedocumented in this encounter
--- OUTSIDE RECORDS SUMMARY | 2022-03-29 07:59 | XMS_ITS | Encounter Summary ---
:1950 Author Organization [facility] Address [address] [place] [address] Care Team Providers Name Role Phone Unavailable Primary Care Provider Unavailable Encounter Details Date Type Department Care Team Description 07/01/2011 Hospital Encounter HX [facility] Riley Jimenez M.D. [address] [facility], [facility] [address] [phone] Social History Tobacco Use Types Packs/Day [...] How often do you attend worship or baptist services? 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 - 07/01/2011 12:00 AM CST [id number] CHIEF COMPLAINT/ REASON FOR VISIT 1. Migraine headache 2. Elevated blood pressure. HISTORY OF PRESENT ILLNESS This is a 61-year-old man came in today for above complaints. He called Dr. Camp this weekend because of severe headache associated with elevated blood pressure. Patient was advised to come and see me today for evaluation. Patient had migraine headache in the past. Last episode was 6 or 7 years ago. On Friday, he had a severe headache it is whole head and frontal area pressure-like in nature associated with nausea, photophobia, phonophobia. Because of that he missed work Friday and Friday at that time his blood pressure was 232/170 on Friday. He denies change in diet change in medications. He has been taking medication regularly. Patient has sinus congestion and sinus headache. There was no fever, chills. He has cough. He continues to smoke cigarettes one half pack per day. Sometimes he coughs up greenish sputum. There was no chest pain, short of breath, chest congestion, wheezing. Today he does not have headache. His blood pressure is better. There was no orthopnea, paroxysmal nocturnal dyspnea, palpitations, peripheral edema. Patient needs a work excuse for Friday and Friday. He would like to go back to work tomorrow. CURRENT MEDICATIONS Reviewed and updated as per the EMR. ALLERGY Reviewed and updated as per the EMR. SYSTEMS REVIEW As per the history of present illness. Other systems are reviewed and are negative. It should be noted that he stopped taking prednisone in April 2011 after he ran out of prednisone bottles. He no longer has arthritis, arthralgia. PAST MEDICAL/SURGICAL HISTORY Reviewed and updated as per the EMR. PREVENTIVE SERVICES Reviewed and updated as per the EMR. VITAL SIGNS Reviewed as per the EMR. PHYSICAL EXAM GENERAL: Patient is sitting no distress. Able to talk without interruption. HEAD: Remarkable for maxillary sinus tenderness EYES: PERRLA, EOMI. No pallor, icterus or conjunctivitis. ENT: No nasal congestion, discharge or bleeding. There is no ear infection or discharge. No mastoid tenderness. Tongue is moist, midline. No oral lesions. LYMPH NODES: There was no cervical or supraclavicular lymphadenopathy. HEART: Regular rhythm. There is no S3, gallop, no obvious murmur. LUNGS:. Normal respiratory effort. He has rhonchi at posterior basilar region. No pleural rub, wheezing. IMPRESSION/REPORT/PLAN 1. Migraine headache, which has resolved. 2. Hypertension. Today's blood pressure was 122/70. Repeated blood pressure was 126/70. He will continue current medications. Blood pressure should be less than 130/80. 3. Acute maxillary sinusitis. Prescription for Z-Handy was given. He should call me if there is persistent problems. 4. Cough with tobacco use. He is stable from respiratory standpoint. Probably he may have bronchitis. This should be better with Z-Handy. Encouraged him to quit smoking tobacco. He is not ready to quit at this point. 5. Vaccination for influenza. He was given influenza immunization today. 6. Preventive services. Patient will be back in 3 months for annual physical exam and review medical problems. PP/kmk Signed Riley Sanchez M.D. Internal Medicine Electronically Signed By: RILEY SANCHEZ MD On: 07/11/2011 09:25 AM Modified by and Electronically Signed by: RILEY SANCHEZ MD On: 07/11/2011 09:25 AM Source: [facility] MHSDOLBEYNONRADSYS Document Id: [id number] HOPPER documented in this encounter Miscellaneous Notes Miscellaneous - Riley Sanchez M.D. - 07/01/2011 3:09 PM CST Ambulatory Patient Summary [address] [address] Visit Information Name: SEVEN SALAZAR Current Date: 07/01/2011 15:09:41 Physicians Attending Provider: RILEY SANCHEZ MD Primary Care Provider: RILEY SANCHEZ MD Your Medications Here is a list of your medications. It is important to take your medications as directed. Use a pillbox or chart to help remind you to take your medications. Please let your doctor or nurse know if you have problems taking your medications. Medication/Strength Dose Route Frequency Indications/Special Instructions/Comments azithromycin (Zithromax 250 mg oral tablet) 2 tablets on day 1, then 1 tablet on days 2-5 Oral as directed for 5 Days APAP/ASA/caffeine (Excedrin Migraine) 3 tab(s) Oral once as needed for Headache lisinopril-hydrochlorothiazide (hydrochlorothiazide-lisinopril 25 mg-20 mg oral tablet) See Instructions 1.5 tab(s) PO Daily AM / Dose increased on 02/11/2011. Attention: If you have any medications at [...] loss Active 02/11/2011 Migraine headache Active 07/01/2011 Your Recommendations We want to make sure [...] Test/Treatment Last Done Next Due Additional Information Health Assessment every 1 year 07/01/2011 06/30/2012 Screening Colonoscopy or Flex Sig or Occult Blood 02/22/2005 02/20/2015 Checks for signs of cancer of the colon. Lipid Panel every 5 years Age 20-75 10/26/2010 10/25/2015 Checks blood for good (HDL) and bad (LDL) cholesterol. Know your numbers, they are one indicator of your risk for heart attack and stroke. Vaccine: Tetanus every 10 years 02/12/2010 02/10/2020 Immunization to help prevent you from getting the serious disease Tetanus (Lockjaw). Your Upcoming Appointments Date Time Location Reason Provider No Appointments found Your Goals/Additional instructions: Source: [facility] POWERCHART Document Id: [id number] HOPPER Miscellaneous - Riley Sanchez M.D. - 07/01/2011 3:09 PM CST Ambulatory Depart Summary [address] [address] Visit Information Name: SEVEN SALAZAR Visit Date: 07/01/2011 15:09:40 Attending Provider: RILEY SANCHEZ MD Primary Care [...] medications. Medication/Strength Dose Route Frequency Indications/Special Instructions/Comments azithromycin (Zithromax 250 mg oral tablet) 2 tablets on day 1, then 1 tablet on days 2-5 Oral as directed for 5 Days APAP/ASA/caffeine (Excedrin Migraine) 3 tab(s) Oral once as needed for Headache lisinopril-hydrochlorothiazide (hydrochlorothiazide-lisinopril 25 mg-20 mg oral tablet) See Instructions 1.5 tab(s) PO Daily AM / Dose increased on 02/11/2011. Attention: If you have any medications at home that are not on this list, DO NOT take them until youcontact your provider for clarification. Additional Information: Source: [facility] Risktail Document Id: [id number] HOPPER Miscellaneous - Riley Sanchez M.D. - 07/01/2011 3:08 PM CST School or Work Excuse School or Work Excuse Entered On: 07/01/2011 15:09 CAR HOPPER Performed On: 07/01/2011 15:08 CAR HOPPER by RILEY SANCHEZ MD School or Work Excuse Date Patient Seen : 07/01/2011 CAR HOPPER School or Work Restrictions : No Restrictions School Med Procedure Form Completed : N/A Date of Return to School/Work Without Restrictions : 07/02/2011 CAR HOPPER Comment : Work excuse on 06/28/2011 & 06/29/2011. RILEY SANCHEZ MD - 07/01/2011 15:08 CAR HOPPER Source: [facility] Risktail Document Id: [id number] CAR HOPPER!7 HOPPER Jodicellaneous - Riley Sanchez M.D. - 07/01/2011 3:08 PM CST Ambulatory Vitals Height Weight Ambulatory Vitals Height Weight Entered On: 07/01/2011 15:15 CAR HOPPER Performed On: 07/01/2011 15:08 CAR HOPPER by RILEY SANCHEZ MD Vitals/Ht/Wt Systolic Blood Pressure : 126mmHg Diastolic Blood Pressure : 70mmHg NIBP Mean : 89mmHg BP Location : Left upper extremity Blood Pressure Cuff Size : Large RILEY SANCHEZ MD - 07/01/2011 15:15 CAR HOPPER Source: [facility] Risktail Document Id: [id number] CAR HOPPER!7 HOPPER Miscellaneous - Conversion, Historical Provider Ser - 07/01/2011 2:43 PM CAR HOPPER Adult Sugar Sampler Intake/History Adult Sugar Sampler Intake/History Entered On: 07/01/2011 14:48 CAR HOPPER Performed On: 07/01/2011 14:43 CAR HOPPER by BARB GILL LPN Intake Chief Complaint : recent migraine with elevated blood pressure. needs work excuse for fri and sat Temperature Core : 37C(Converted to: 98.6DegF) Peripheral Pulse Rate : 88/min Respiratory Rate : 18/min Heart Rhythm : Regular Systolic Blood Pressure : 122mmHg Diastolic Blood Pressure : 70mmHg NIBP Mean : 87mmHg BP Location : Left upper extremity Blood Pressure Cuff Size : Large Actual Weight : 99.7kg(Converted to: 219lb 13oz) Weight Source : Standing scale Dosing Weight Clinic : 99.70kg BARB GILL LPN - 07/01/2011 14:43 CAR HOPPER Subjective Pain Symptoms : No BARB GILL LPN - 07/01/2011 14:43 CAR HOPPER Dependent Habits Tobacco Use/Currently Using : Yes Tobacco Use/Advised to Quit : Yes Exposure to Tobacco Smoke : Patient smokes Smoking Status : Current every day smoker BARB GILL LPN - 07/01/2011 14:43 CAR HOPPER Tobacco Use Grid Type : Cigarettes Cigarette Use Packs/Day : 0.5 Last Use : today BARB GILL LPN - 07/01/2011 14:43 CAR HOPPER Caffeine Use Grid Caffeine Use : Current Type : Coffee, Tea Frequency : Daily Amount : 2 cup/day Last Use : today BARB GILL LPN - 07/01/2011 14:43 CAR HOPPER Allergy Allergies (Active) NKA Estimated Onset Date: Unspecified ; Created By: SARAI NIXON; Reaction Status: Active ; Category:Drug ; Substance: NKA ; Type: Allergy ; Updated By: SARAI NIXON; Reviewed Date: 07/01/2011 14:41 CAR HOPPER Source: [facility] POWERCHART Document Id: [id number] CAR HOPPER!34 Miscellaneous - Conversion, Historical Provider Ser - 07/01/2011 2:43 PM CAR HOPPER Health Assessment Health Assessment Entered On: 07/01/2011 14:49 CAR HOPPER Performed On: 07/01/2011 14:43 CAR HOPPER by BARB GILL LPN Health Assessment Complete Health Assessment Complete or Modified : Annual Health Assessment Annual Health Assessment Completed : Yes BARB GILL LPN - 07/01/2011 14:43 CAR HOPPER Nutrition Nutrition Risk Factors by History Adult : None [facility]B GILL [facility] 07/01/2011 14:43 CAR HOPPER Functional Current Daily Living Assistance : None BARB GILL [facility] 07/01/2011 14:43 CAR HOPPER Dependent Habits Tobacco Use/Currently Using : Yes Tobacco Use/Advised to Quit : Yes Exposure to Tobacco Smoke : Patient smokes Smoking Status : Current every day smoker BARB GILL [facility] 07/01/2011 14:43 CAR HOPPER Tobacco Use Grid Type : Cigarettes Cigarette Use Packs/Day : 0.5 Last Use : today BARB GILL [facility] 07/01/2011 14:43 CAR HOPPER Caffeine Use Grid Caffeine Use : Current Type : Coffee, Tea Frequency : Daily Amount : 2 cup/day Last Use : today BARB GILL [facility] 07/01/2011 14:43 CAR HOPPER Psychosocial Domestic Abuse Concerns : None BARB GILL [facility] 07/01/2011 14:43 CAR HOPPER Advance Directive Advanced Directives : Yes Advance Directive Type : Living will BARB GILL [facility] 07/01/2011 14:43 CAR HOPPER Educ Needs Learning Style Preference Adult Grid Patient : Demonstration, Printed materials, Verbal explanation Family : None BARB GILL [facility] 07/01/2011 14:43 CAR HOPPER Source: [facility] POWERCHART Document Id: [id number] CAR HOPPER!34 documented in this encounter Plan of Treatment Upcoming Encounters Date Type Specialty Care Team Description 04/12/2022 Office Visit Cardiovascular Disease Simone Gooden AP RN, C.N.P. [address] [phone] (Wo rk) documented as of this encounter Visit Diagnoses Not on filedocumented in this encounter
--- OUTSIDE RECORDS SUMMARY | 2022-03-29 07:59 | XMS_ITS | Encounter Summary ---
:1950 Author Organization [facility] Address [address] [place] [address] Care Team Providers Name Role Phone Unavailable Primary Care Provider Unavailable Encounter Details Date Type Department Care Team Description 10/07/2011 Hospital Encounter HX [facility] Provider, Histor ical Social History Tobacco Use Types Packs/Day Years [...] How often do you attend latter-day or buddhism services? 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 Last Eye Exam : Years ago Smoking Status : Current every day smoker Family History Reviewed : 10/07/2011 CDT SAM BARBOSA OD - 10/07/2011 9:29 CDT Optometry Exam Familty History Grid Oncologic Medical History : Self Respiratory : Self Smoker : Self Cataract : Mother Eye Surgery : Self, s/p PCIOL OU SAM BARBOSA OD - 10/07/2011 9:29 CDT Pain Symptoms : No SAM BARBOSA OD - 10/07/2011 8:58 CDT Vision Testing Right Eye Vision Testing : With glasses - primary, 20/40 Left Eye Vision Testing : With glasses - primary, 20/30 Both Eyes Vision Testing : With glasses - primary, 20/25, -1 Near Vision Both Eyes : With glasses - primary, J-1 SAM BARBOSA OD - 10/07/2011 9:29 CDT Refraction Current Glasses Rx Grid Glasses/RE Glasses/LE Comment : PLANO +0.25 +0.25 x 075 ADD +2.50 SAM BARBOSA OD - 10/07/2011 9:29 CDT SAM BARBOSA - 10/07/2011 9:29 CDT Right Eye Manifest Grid Comment : -0.25 sph = 20/25 SAM BARBOSA OD - 10/07/2011 9:29 CDT Left Eye Manifest Grid Comment : +0.25 sph = 20/20-1 ADD +2.50 = 20/20 SAM BARBOSA OD - 10/07/2011 9:29 CDT Ocular Testing EOMS : Normal Pupils : PERRLA Confrontation Gomez : RE Normal, LE Normal SAM BARBOSA - 10/07/2011 9:29 CDT Intraoccular Pressures Intraoccular Pressures Grid Eye : RE LE Applanation : 18 16 Eye Drops : Fluress Fluress SAM BARBOSA - 10/07/2011 9:29 CDT SAM BARBOSA - 10/07/2011 9:29 CDT Eye Drops Exam Phenylephrine 2.5% Eye Drops Eye : Both eyes Phenylephrine 2.5% Eye Drops Amount : One drop Phenylephrine 2.5% Eye Drops Time : 9:27 PARIMUTUEL TICKET SELLER Tropicamide 1% Eye Drops Eye : Both eyes Tropicamide 1% Eye Drops Amount : One drop Tropicamide 1% Eye Drops Time : 9:27 PARIMUTUEL TICKET SELLER SAM BARBOSA - 10/07/2011 9:29 CDT Ocular Health Ocular Health Ext Rt Eye Grid Ext Rt Eye - Lids/Lashes : Normal Ext Rt Eye - Conjunctiva : Normal Ext Rt Eye - Cornea : Normal (Comment: temp CE scar, arcus [SAM BARBOSA OD - 10/07/2011 9:35 CDT] ) Ext Rt Eye - A/C : Normal Ext Rt Eye - Iris : Normal Ext Rt Eye - Lens : Normal (Comment: PCIOL with trace PCO OD>OS [SAM BARBOSA OD - 10/07/2011 9:35 CDT] ) SAM BARBOSA OD - 10/07/2011 9:35 CDT Ocular Health Ext Lt Eye Grid Ext Lt Eye - Lids/Lashes : Normal Ext Lt Eye - Conjunctiva : Normal Ext Lt Eye - Cornea : Normal (Comment: temp CE scar, arcus [SAM BARBOSA - 10/07/2011 9:35 CDT] ) Ext Lt Eye - A/C : Normal Ext Lt Eye - Iris : Normal (Comment: sectoral TID 3:00 [SAM BARBOSA OD - 10/07/2011 9:35 CDT] ) Ext Lt Eye - Lens : Normal (Comment: PCIOL w/trace PCO [SAM BARBOSA - 10/07/2011 9:35 CDT] ) SAM BARBOSA OD - 10/07/2011 9:35 CDT Ocular Health Int Rt Eye Grid Int Rt Eye - Vitreous : Normal Int Rt Eye - C/D : Normal (Comment: 0.2V x 0.25H, temp sloping [SAM BARBOSA - 10/07/2011 9:35 CDT] ) Int Rt Eye - Margins : Normal Int Rt Eye - Color : Normal Int Rt Eye - Macula : Normal (Comment: no FR, flat/clear [SAM BARBOSA - 10/07/2011 9:35 CDT] ) Int Rt Eye - Posterior Pole : Normal Int Rt Eye - Periphery : Normal Int Rt Eye - Vessels : Normal SAM BARBOSA - 10/07/2011 9:35 CDT Ocular Health Int Lt Eye Grid Int Lt Eye - Vitreous : Normal Int Lt Eye - C/D : Normal (Comment: 0.2V x 0.25H, temp sloping [SAM BARBOSA - 10/07/2011 9:35 CDT] ) Int Lt Eye - Margins : Normal Int Lt Eye - Color : Normal Int Lt Eye - Macula : Normal (Comment: no FR, flat/clear [SAM BARBOSA OD - 10/07/2011 9:35 CDT] ) Int Lt Eye - Posterior Pole : Normal Int Lt Eye - Periphery : Normal Int Lt Eye - Vessels : Normal SAM BARBOSA OD - 10/07/2011 9:35 CDT Assessment Findings : Presbyopia, Other: 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 Document Id: [id number] documented in this encounter Plan of Treatment Upcoming Encounters Date Type Specialty Care Team Description 04/12/2022 Office Visit Cardiovascular Disease Simone Gooden AP RN, C.N.P. [address] [phone] (Wo rk) documented as of this encounter Visit Diagnoses Not on filedocumented in this encounter
--- OUTSIDE RECORDS SUMMARY | 2022-03-29 07:59 | XMS_ITS | Encounter Summary ---
:1950 Author Organization [facility] Address [address] [place] [address] Care Team Providers Name Role Phone Unavailable Primary Care Provider Unavailable Encounter Details Date Type Department Care Team Description 01/03/2011 Hospital Encounter HX [facility] Riley aSnchez M.D. [address] [facility] [address] [phone] Social History Tobacco Use Types Packs/Day [...] How often do you attend latter-day or jehovah's witness services? 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 - 01/03/2011 9:12 AM CDT Results Notification Document Contains Addenda Addendum by EMPERATRIZ HASSAN on 03 January 2011 09:28:21 CDT Patient notified. SAVANNAH From: RILEY SANCHEZ MD To: BARB GILL LPN Sent: 01/03/2011 09:12:29 CDT ! Show up: 01/03/2011 09:12:00 CDT Subject: Results Notification Actions: Notify patient of results Due Date/Time: 01/03/2011 09:12:00 CDT Source: [facility] [employer] - A First [employer] Its Kind [employer]op Document Id: [id number] Electronically signed by [facility] Caustic Operator [id number] at 10/06/2016 1:37 PM CDT Miscellaneous - Riley Sanchez M.D. - 01/03/2011 9:11 AM CDT Results Notification Document Contains Addenda Addendum by EMPERATRIZ HASSAN on 03 January 2011 09:34:28 CDT Patient notified. SAVANNAH From: RILEY SANCHEZ MD To: BARB GILL LPN Sent: 01/03/2011 09:11:47 CDT ! Show up: 01/03/2011 09:11:00 CDT Subject: Results Notification Actions: Notify patient of results Due Date/Time: 01/03/2011 09:11:00 CDT [facility] Document Id: [id number] Electronically signed by [facility] Caustic Operator [id number] at 10/06/2016 1:37 PM CDT documented in this encounter Plan of Treatment Upcoming Encounters Date Type Specialty Care Team Description 04/12/2022 Office Visit Cardiovascular Disease Simone Gooden, KELLY RN, C.N.P. [address] [address] [phone] (Wo rk) documented as of this encounter Visit Diagnoses Not on filedocumented in this encounter
--- OUTSIDE RECORDS SUMMARY | 2022-03-29 07:59 | XMS_ITS | Encounter Summary ---
:1950 Author Organization [facility] Address [address] [place] [address] Care Team Providers Name Role Phone Unavailable Primary Care Provider Unavailable Encounter Details Date Type Department Care Team Description 10/29/2010 Hospital Encounter [facility]X [facility] Riley Jimenez M.D. [address] [facility] [address] [phone] Social History Tobacco Use Types Packs/Day [...] How often do you attend zoroastrian or christian services? 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 - 10/29/2010 12:00 AM CDT [id number] CHIEF COMPLAINT/REASON FOR VISIT Follow up. HISTORY OF PRESENT ILLNESS This is a 60 year-old white man who came in today for follow up. I saw him on September 28, 2010 because of arthralgia with arthritis symptoms. His symptoms responded to prednisone. So far he does not notice any side effects. Patient saw Dr. Camejo Urologist and he underwent cystoscopy on October 08, 2010. It came back normal and he is going to see Dr. Camejo in December 2010. He was referred to see a specialist at the [facility] for further evaluation of arthralgia arthritis with elevated sedimentation rate and C reactive protein. He has not had an appointment yet because he owes money to [facility] he could not get into see the physician. Today he does not have any complaints. He continues to smoke tobacco. Patient was advised to quit smoking cigarettes. He already had bladder cancer. According to patient yesterday he smoked 7 to 8 cigarettes only. He is planning to quit on November 05 2010. Today we discussed about smoking cessation including pharmacological therapy. I discussed with him about Chantix therapy versus Wellbutrin therapy. After discussion he would like to try Chantix. I discussed with him about side effects from these medications, risk, benefits and alternative therapy. He was noted to have elevated white blood cells but there was no fever, signs and symptoms of infection most likely related to prednisone therapy. I discussed with him about side effect from prednisone therapy. It was decided to start Bactrim for PCP prophylaxis while he is taking prednisone. Advised him not to take Chantix at the same time with Bactrim. I want him to start one new medication at a time incase he develops side effects or intolerance. Otherwise he denies fever, or chills, cough, sputum production, hemoptysis. Patient believes he has some weight gain. 1 1/2 years ago his body weight was 210 pounds. CURRENT MEDICATIONS Reviewed and updated as per [...] EMR. PHYSICAL EXAM GENERAL: Patient is sitting in no distress. Able to talk without interruption. SKIN: No rash, bruise or nodule. HEAD: No facial rash, asymmetry or sinus tenderness. EYES: PERRLA, EOMI. No pallor, icterus or conjunctivitis. ENT: No nasal congestion, discharge or bleeding. There is no ear infection or discharge. No mastoid tenderness. Tongue is moist, midline. No oral lesions. HEART: Regular rhythm. There is no S3, gallop, no obvious murmur. LUNGS: Normal respiratory effort. Clear to auscultation. Normal percussion. ABDOMEN: Bowel sounds present. Soft. No tenderness. EXTREMITIES: No clubbing, cyanosis, edema, infection, or calf tenderness. MENTAL: Alert and oriented x 3. Normal mood and affect. NEURO: Nonfocal exam. IMPRESSION / REPORT / PLAN 1. Arthralgia with arthritis. Most likely related to previous intravesical BCG therapy. His symptoms are getting better. He will continue prednisone. Need to monitor sedimentation rate, C reactive protein and complete blood count. He was given prescription for Bactrim double strength for PCP prophylaxis. He will take one tablet by mouth three days a week, every Friday, Friday And Friday. He should drink plenty of fluid. He should call me if there is side effect or intolerance to Bactrim. 2. Hypertension. Repeated blood pressure was 138/76 mmHg. Pulse rate 88. He is stable form a cardiac standpoint. Blood pressure is fairly controlled. He needs to lose weight. He should cut back sodium in his diet. He should continue current medications. 3. Leukocytosis, most likely due to prednisone therapy. I reviewed with him about side effects from prednisone. Need to monitor complete blood count in subsequent visits. 4. Tobacco use. Today we discussed about smoking cessation, including but not limited pharmacological therapy and their side effects. After discussion, it was decide to start Chantix. He is planning to quit smoking cigarettes on the 05 of November. Advised him not to take Chantix at the same time as Bactrim. He should start Chantix at least one week after taking Bactrim. He should call me if there is side effect or intolerance to Chantix. Smoking cessation counseling time was more than 3 minutes. 5. Urinary bladder cancer. He saw Dr. Camejo. Recent cystoscopy was unremarkable. Strongly encouraged him to quit smoking. He will follow up with Dr. Camejo in December 2010. All of his questions were answered. Discussed with him about blood tests done on October 26, 2010. Return to the clinic in one month for follow up. At that time he needs the following blood tests: Complete blood count, basic metabolic profile, sedimentation rate and C reactive protein. BRADEN/francisco javier Signed Riley Sanchez M.D. Internal Medicine Electronically Signed By: RILEY SANCHEZ MD On: 12/10/2010 12:52 PM Modified by and Electronically Signed by: RILEY SANCHEZ MD On: 12/10/2010 12:52 PM Source: [email or web address] Document Id: [id number] documented in this encounter Miscellaneous Notes Miscellaneous - Riley Sanchez M.D. - 10/29/2010 10:30 AM CDT Ambulatory Patient Summary [address] [address] Visit Information Name: SEVEN SALAZAR Current Date: 10/29/2010 10:30:04 Primary Care Provider: RILEY SANCHEZ MD Your Medications Here is a list of your medications. It is important to take your medications as directed. Use a pillbox or chart to help remind you to take your medications. Please let your doctor or nurse know if you have problems taking your medications. Medication/Strength Dose Route Frequency Indications/Special Instructions/Comments sulfamethoxazole-trimethoprim (sulfamethoxazole-trimethoprim 800 mg-160 mg oral tablet) 1 tab(s) Oral 3 times a week for 90 Days (drink plenty of fluids) / For PCP prophylaxis during prednisone therapy. Fri, Fri and Fridays. varenicline (Chantix 1 mg oral tablet) 1 mg Oral two times a day with meals beginning WEEK 5 until end of treatment varenicline (Chantix Starter Pack) See Instructions as directed on package labeling predniSONE (predniSONE 5 mg oral tablet) See Instructions 3 tab(s) PO Daily / Dose decreased on 09/28/2010. hydrochlorothiazide-lisinopril (hydrochlorothiazide-lisinopril 25 mg-20 mg oral tablet) [...] and stroke. Vaccine: Flu every 1 year 10/29/2010 Immunization to help prevent you from getting the flu strain expected to be a problem for that year's flu season. Vaccine: Tetanus every 10 years 02/12/2010 02/10/2020 Immunization to help prevent you from getting the serious disease Tetanus (Lockjaw). Your Upcoming Appointments Date Time Location Reason Provider No Appointments found Your Goals/Additional instructions: Source: [facility] Document Id: [id number] Electronically signed by Conversion, [facility] Manager [id number] at 10/06/2016 8:57 PM CDT Riley Rangel M.D. - 10/29/2010 10:30 AM CDT Ambulatory Depart Summary [address] [address] Visit Information Name: CHRIS SEVEN AVINA Current Date: 10/29/2010 10:30:03 Primary Care Provider: RILEY SANCHEZ MD SEVEN SALAZAR has been given the following list of medications: Your Medications It is important to take your medications as directed. Use a pill box or chart to help remind you to take your medications. Please let your doctor or nurse know if you have problems taking your medications. Medication/Strength Dose Route Frequency Indications/Special Instructions/Comments sulfamethoxazole-trimethoprim (sulfamethoxazole-trimethoprim 800 mg-160 mg oral tablet) 1 tab(s) Oral 3 times a week for 90 Days (drink plenty of fluids) / For PCP prophylaxis during prednisone therapy. Fri, Fri and Fridays. varenicline (Chantix 1 mg oral tablet) 1 mg Oral two times a day with meals beginning WEEK 5 until end of treatment varenicline (Chantix Starter Pack) See Instructions as directed on package labeling predniSONE (predniSONE 5 mg oral tablet) See Instructions 3 tab(s) PO Daily / Dose decreased on 09/28/2010. hydrochlorothiazide-lisinopril (hydrochlorothiazide-lisinopril 25 mg-20 mg oral tablet) 1 tab(s) Oral once a day (at bedtime) Cancel previous prescriptions for HCTZ and lisinopril. Additional Information: Yes - Current list of reconciled medications is provided and explained to the patient and/or family, guardian/caregiver. Source: [employer] Document Id: [id number] Electronically signed by Conversion, [facility] Manager [id number] at 10/06/2016 8:57 PM CDT Riley Rangel M.D. - 10/29/2010 10:29 AM CDT Ambulatory Vitals Height Weight Ambulatory Vitals Height Weight Entered On: 10/29/2010 10:29 CDT Performed On: 10/29/2010 10:29 CDT by RILEY SANCHEZ MD Vitals/Ht/Wt Peripheral Pulse Rate: 88/min Systolic Blood Pressure: 138mmHg Diastolic Blood Pressure: 76mmHg NIBP Mean: 97mmHg BP Location: Left upper extremity Heart Rhythm: Regular RILEY SANCHEZ MD - 10/29/2010 10:29 CDT Source: [employer] Document Id: [id number] CDT!8 Miscellaneous - Conversion, Historical Provider Ser - 10/29/2010 10:02 AM CDT Ambulatory Vitals Height Weight Ambulatory Vitals Height Weight Entered On: 10/29/2010 10:03 CDT Performed On: 10/29/2010 10:02 CDT by EMPERATRIZ HASSAN Vitals/Ht/Wt Systolic Blood Pressure: 126mmHg Diastolic Blood Pressure: 70mmHg NIBP Mean: 89mmHg EMPERATRIZ HASSAN - 10/29/2010 10:02 CDT Source: [employer] Document Id: [id number] CDT!5 Miscellaneous - Conversion, Historical Provider Ser - 10/29/2010 10:00 AM CDT Adult Marketing Technology Specialist Intake/History Adult Marketing Technology Specialist Intake/History Entered On: 10/29/2010 10:02 CDT Performed On: 10/29/2010 10:00 CDT by EMPERATRIZ HASSAN Intake Chief Complaint: Follow up Temperature Core: 36.8C(Converted to: 98.2DegF) Peripheral Pulse Rate: 88/min Respiratory Rate: 25/min (HI) Systolic Blood Pressure: 156mmHg (HI) Diastolic Blood Pressure: 70mmHg NIBP Mean: 99mmHg BP Location: Left upper extremity SpO2: 98% Heart Rhythm: Regular Oxygen Therapy: Room air Actual Weight: 96.400kg(Converted to: 212lb 8oz) Weight Source: Standing scale Dosing Weight Clinic: 96.40kg EMPERATRIZ HASSAN 10/29/2010 10:00 CDT Subjective Pain Symptoms: No EMPERATRIZ HASSAN 10/29/2010 10:00 CDT Dependent Habits Tobacco Use/Currently Using: Yes Tobacco Use/Advised to Quit: Yes Exposure to Tobacco Smoke: Patient smokes EMPERATRIZ HASSAN 10/29/2010 10:00 CDT Tobacco Use Grid Type: Cigarettes Cigarette Use Packs/Day: 0.5 Last Use: today EMPERATRIZ HASSAN 10/29/2010 10:00 CDT Caffeine Use Grid Caffeine Use: Current Type: Coffee, Tea Frequency: Daily Amount: 2 cup/day Last Use: today EMPERATRIZ HASSAN 10/29/2010 10:00 CDT Allergy Allergies (Active) NKA Estimated Onset Date: Unspecified ; Created By: SARAI NIXON; Reaction Status: Active ; Category:Drug ; Substance: NKA ; Type: Allergy ; Updated By: SARAI NIXON; Reviewed Date: 10/08/2010 15:08 CDT Source: [facility] Document Id: [id number] CDT!34 documented in this encounter Plan of Treatment Upcoming Encounters Date Type Specialty Care Team Description 04/12/2022 Office Visit Cardiovascular Disease Simone Gooden AP RN, C.N.P. [address] [phone] (Wo [id number]) documented as of this encounter Visit Diagnoses Not on filedocumented in this encounter
--- OUTSIDE RECORDS SUMMARY | 2022-03-29 07:59 | XMS_ITS | Encounter Summary ---
:1950 Author Organization [facility] Address [address] [place] [address] Care Team Providers Name Role Phone Unavailable Primary Care Provider Unavailable Encounter Details Date Type Department Care Team Description 10/01/[address] [facility] Riley Jimenez M.D. [address] [facility] [address] [phone] Social History Tobacco Use Types Packs/Day [...] How often do you attend taoist or latter-day services? 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 - 10/01/2011 12:00 AM CDT [id number] CHIEF COMPLAINT/ REASON FOR VISIT 1. Annual physical examination 2. Review chronic medical problems. 3. Renew medications. HISTORY OF PRESENT ILLNESS This is 61-year-old man who came in today for above complaints. I saw him on July 01, 2011. He was advised to come back in 3 months for annual physical exam and review medical problems. Patient ran out of medications. He did not call my office or contact pharmacy. He started smoking again. He had some cough, shortness of breath with wheezing. No fever or chills. There was no chest pain, orthopnea, proximal nocturnal dyspnea, palpitations or peripheral edema. Now he has smoked one half pack per day. He has been followed with Dr. Camejo Urologist for bladder cancer. He is going to have cystoscopy with follow-up appointment on October 07, 2011. Patient wear eyeglasses he has not seen eye doctor for several years. He saw dentist a year ago or so. He is active. He is still working at [employer] in [place], [place]. There was no nausea, vomiting, change in bowel movement. He does not notice hematemesis, melena, rectal bleeding. Once in awhile he has to get up to go to bathroom at least twice. He is single and lives alone. He denies erectile dysfunction. He has hypertension. Explained to the patient that he needs to take these medications regularly. He cannot run out of these medications. He should call me or call the pharmacy if he runs out of medication. We need to make sure his blood pressure is controlled. Blood pressure should be less than 130/80. CURRENT MEDICATIONS 1. Combivent inhaler 2 puffs four times a day 2. Albuterol inhaler 2 puffs four times a day as needed. 3. Lisinopril/hydrochlorothiazide 20/25 mg 1.5 tablets by mouth daily in the morning. 4. Excedrin migraine 3 tablets by mouth as needed for headache. ALLERGIES No known drug allergies SYSTEMS REVIEW As per the history of [...] Fatigue 13. Snoring 14. 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 He still working at [employer] in [facility]. FAMILY HISTORY Asthma in brother. Father had liver and pancreas cancer, lung cancer in sister. Mother has cataract and glaucoma, hearing loss in father. Hypertension in mother and brother. Parkinson disease in father. VITAL SIGNS HEIGHT 176.2 cm. WEIGHT 98 BMI 31.57 TEMPERATURE 36.7. PULSE 81 RESPIRATIONS 20, Oxygen saturation 96% room air. BLOOD PRESSURE 162/98 repeat blood pressure 148/98 right arm sitting. PHYSICAL EXAM GENERAL: Patient is sitting. No distress. Able to talk without interruption. SKIN: No rash, bruise or nodules. HEAD: No facial rash, asymmetry or sinus tenderness. EYES: PERRLA. EOMI. No pallor, icterus or conjunctivitis. Status-post cataract extraction. ENT: No nasal congestion, discharge [...] or rectal mass. Stool Guaiac negative. PROSTATE: There is no prostate tenderness. Smooth surface. GENITALIA: No hydrocele or hernia. No testicular pain or urethral discharge. SPINE: No scoliosis or kyphosis. No spinous tenderness or mass. JOINTS: No joint swelling or deformity. No decreased range of motion. EXTREMITIES: No clubbing, cyanosis, edema, infection or calf tenderness. GAIT: No abnormal gait. MENTAL: Alert and oriented x 3. Normal mood and affect. NEURO: Intact cranial nerves. Intact sensory and motor grossly nonfocal exam. IMPRESSION/REPORT/PLAN 1. Annual physical examination. I discussed with him about health maintenance examination including but not limited to healthy diet, regular exercise, maintaining healthy body weight, updating immunization, screening for cardiovascular condition, diabetes mellitus, thyroid disorder and age appropriate cancer. He needs to see eye doctor once a year and dentist every 6 months or so. He needs health maintenance exam every year. EKG was obtained which shows sinus rhythm with frequent PACs, ventricular rate 79 beat per minute. Spirometry was obtained which showed obstruction FVC 44% and FEV1 46%. 2. Cough with wheezing. He is stable from respiratory standpoint. There is no hypoxemia. Chest x-ray PA lateral was obtained. There was no definite infiltration or effusion. Will follow official radiology report. Discussed with him about smoking cessation. Strongly encouraged him to quit smoking. Otherwise his lung function will decline significantly. 3. Hypertension. Blood pressure is not controlled secondary to noncompliance with medications. He ran out of antihypertensive medications few days age. Advised him to restart blood pressure medications as soon as he gets home. Blood pressure should be less than 130/80. 4. Urothelial carcinoma of urinary bladder. He already had appointment to see Dr. Camejo on October 07, 2011. All of his questions were answered. Today's studies. EKG, chest x-ray, TSH, screening PSA, lipid profile, liver profile, complete blood count, fasting basic metabolic profile. He will be notified when we get test results. Return to clinic in a month for followup. PP/kmk Signed Riley Sanchez M.D. Internal Medicine Electronically Signed By: RILEY SANCHEZ MD On: 10/24/2011 01:48 PM Modified by and Electronically Signed by: RILEY SANCHEZ MD On: 10/24/2011 01:48 PM Source: [facility] MHSDOLBEYNONRADSYS Document Id: [id number] documented in this encounter Miscellaneous Notes Miscellaneous - Riley Sanchez M.D. - 10/02/2011 5:28 PM CDT Results Notification Document Contains Addenda Addendum by BARB GILL LPN on 11 October 2011 17:56:11 CDT mailed From: RILEY SANCHEZ MD To: BARB GILL LPN Sent: 10/02/2011 17:28:58 CDT ! Show up: 10/02/2011 22:28:58 [facility] Subject: Results Notification Actions: Notify patient of results Source: [facility] POWERCHART Document Id: [id number] Electronically signed by Conversion, [facility] Phosphoric Acid Operator [id number] at 10/06/2016 8:24 AM CDT Telephone Encounter - Conversion, Historical Provider Ser - 10/01/2011 2:35 PM CDT Prescription routing temporarily unavailable Document Contains Addenda Addendum by DELBERT BURROWS on 01 Oct 2011 15:44:12 CDT Called pharmacy. Entered by DELBERT BURROWS on 01 Oct 2011 14:35:27 CDT resent The system is currently not able to route this prescription to the pharmacy. Please use another means to communicate this prescription to the intended pharmacy. Internal Error, LEONARDO Queueing Infrastructure Failed Comments: Internal LEONARDO Wheat Queueing Infrastructure Failed Source: [facility] Videonetics TechnologiesCHART Document Id: [id number] Riley Rangel M.D. - 10/01/2011 11:56 AM CDT Results Notification Document Contains Addenda Addendum by BARB GILL LPN on 11 October 2011 17:54:40 CDT mailed From: RILEY SANCHEZ MD To: BARB GILL LPN Sent: 10/01/2011 11:56:10 CDT ! Show up: 10/01/2011 16:56:10 [facility] Subject: Results Notification Actions: Notify patient of results Source: [facility] Social Genius Document Id: [id number] Electronically signed by Rivka, [facility] Phosphoric Acid Operator [id number] at 10/06/2016 8:24 AM CDT Riley Rangel M.D. - 10/01/2011 11:23 AM CDT Ambulatory Patient Summary [address] [address] Visit Information Name: SEVEN SALAZAR Current Date: 10/01/2011 11:23:10 Physicians Attending Provider: RILEY SANCHEZ MD Primary [...] Active 02/11/2011 Migraine headache Active 07/01/2011 Your Upcoming Appointments Date Time Location Reason Provider 10/07/2011 14:00 [facility] cysto, wants to see about procedure Jatinder Camejo MD 10/07/2011 14:00 [facility] wants to see about procedure Jatinder Camejo MD Your Goals/Additional instructions: Source: [facility] POWERCHART Document Id: [id number] Miscellaneous - Riley Sanchez M.D. - 10/01/2011 11:23 AM CDT Ambulatory Depart Summary [address] [address] Visit Information Name: CHRISSILASFRANKI AVINA Visit Date: 10/01/2011 11:23:09 Attending Provider: RILEY SANCHEZ MD Primary Care [...] your provider for clarification. Additional Information: Source: [facility] POWERCHART Document Id: [id number] Miscellaneous - Conversion, Historical Provider Ser - 10/01/2011 10:15 AM CDT Ambulatory Vitals Height Weight Ambulatory Vitals Height Weight Entered On: 10/01/2011 10:16 CDT Performed On: 10/01/2011 10:15 CDT by BARB GILL LPN Vitals/Ht/Wt Systolic Blood Pressure : 148mmHg (HI) Diastolic Blood Pressure : 98mmHg (>HHI) NIBP Mean : 115mmHg BP Location : Right upper extremity Blood Pressure Cuff Size : Large BARB GILL LPN - 10/01/2011 10:15 CDT Source: [facility] Social Genius Document Id: [id number] CDT!7 Miscellaneous - Conversion, Historical Provider Ser - 10/01/2011 10:06 AM CDT Adult Career Development Facilitator Intake/History Adult Career Development Facilitator Intake/History Entered On: 10/01/2011 10:14 CDT Performed On: 10/01/2011 10:06 CDT by BARB GILL LPN Intake Chief Complaint : physical Temperature Core : 36.7C(Converted to: 98.1DegF) Peripheral Pulse Rate : 81/min Respiratory Rate : 20/min Systolic Blood Pressure : 162mmHg (>HHI) Diastolic Blood Pressure : 98mmHg (>HHI) NIBP Mean : 119mmHg BP Location : Right upper extremity Blood Pressure Cuff Size : Large SpO2 : 96% Oxygen Therapy : Room air Height : 176.2cm(Converted to: 5ft 9inch(es), 69.37inch(es)) Actual Weight : 98kg(Converted to: 216lb 1oz) Weight Source : Standing scale Dosing Weight Clinic : 98.00kg Clinic BSA : 2.19 Body Mass Index : 31.57kg/m2 BARB GILL LPN - 10/01/2011 10:06 CDT General Info Information Given By : Patient Preferred Communication Mode : Verbal Languages : Barbadian BARB GILL LPN - 10/01/2011 10:06 CDT Subjective Pain Symptoms : No BARB GILL LPN - 10/01/2011 10:06 CDT FLACC Legs FLACC : Normal position or relaxed BARB GILL LPN 10/01/2011 10:06 CDT Dependent Habits Tobacco Use/Currently Using : Yes Tobacco Use/Advised to Quit : Yes Exposure to Tobacco Smoke : Patient smokes Smoking Status : Current every day smoker BARB GILL [facility] 10/01/2011 10:06 CDT Tobacco Use Grid Type : Cigarettes Cigarette Use Packs/Day : 0.5 Last Use : today BARB GILL [facility] 10/01/2011 10:06 CDT Alcohol Use : No BARB GILL [facility] 10/01/2011 10:06 CDT Caffeine Use Grid Caffeine Use : Current Type : Coffee, Tea Frequency : Daily Amount : 2 cup/day Last Use : today BARB GILL [facility] 10/01/2011 10:06 CDT Recreational Drug Use Grid Drug Use : None BARB GILL [facility] 10/01/2011 10:06 CDT Allergy Allergies (Active) NKA Estimated Onset Date: Unspecified ; Created By: SARAI NIXON; Reaction Status: Active ; Category:Drug ; Substance: NKA ; Type: Allergy ; Updated By: SARAI NIXON; Reviewed Date: 10/01/2011 10:06 CDT Anesth/Transfusion Anesthesia/Transfusions : Prior anesthesia BARB GILL [facility] 10/01/2011 10:06 CDT ID Screen Drug Resistant Organism : No BARB GILL [facility] 10/01/2011 10:06 CDT Syndrome Surveillance Symptoms Grid New or Worsening Cough : Yes BARB GILL [facility] 10/01/2011 10:06 CDT Travel Within Last 14 Days : No BARB GILL [facility] 10/01/2011 10:06 CDT Activity/Exercise Exercise Type : Walking Exercise Frequency : 2-3 times per week Duration : 30-60 minutes BARB GILL [facility] 10/01/2011 10:06 CDT Sexuality Sexually Active : No Testicular Self Exam : Yes BARB GILL [facility] 10/01/2011 10:06 CDT Diabetes Intake Do You Have Diabetes : No BARB GILL [facility] 10/01/2011 10:06 CDT Source: [facility] POWERCHART Document Id: [id number] CDT!64 Miscellaneous - Conversion, Historical Provider Ser - 10/01/2011 10:06 AM CDT Health Assessment Health Assessment Entered On: 10/01/2011 10:15 CDT Performed On: 10/01/2011 10:06 CDT by BARB GILL LPN Health Assessment Complete Health Assessment Complete or Modified : Annual Health Assessment Annual Health Assessment Completed : Yes BARB GILL LPN - 10/01/2011 10:06 CDT Nutrition Nutrition Risk Factors by History Adult : None BARB GILL LPN - 10/01/2011 10:06 CDT Functional Living Situation : Home independently Current Daily Living Assistance : None BARB GILL LPN - 10/01/2011 10:06 CDT Dependent Habits Tobacco Use/Currently Using : Yes Tobacco Use/Advised to Quit : Yes Exposure to Tobacco Smoke : Patient smokes Smoking Status : Current every day smoker BARB GILL LPN - 10/01/2011 10:06 CDT Tobacco Use Grid Type : Cigarettes Cigarette Use Packs/Day : 0.5 Last Use : today BARB GILL LPN - 10/01/2011 10:06 CDT Alcohol Use : No BARB GILL LPN - 10/01/2011 10:06 CDT Caffeine Use Grid Caffeine Use : Current Type : Coffee, Tea Frequency : Daily Amount : 2 cup/day Last Use : today BARB GILL LPN - 10/01/2011 10:06 CDT Psychosocial Domestic Abuse Concerns : None Marital Status : Occupation : [employer] 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 BARB GILL LPN - 10/01/2011 10:06 CDT Advance Directive Advanced Directives : Yes Advance Directive Type : Living will Advance Directive Additional Information : No BARB GILL LPN - 10/01/2011 10:06 CDT Educ Needs Learning Style Preference Adult Grid Patient : Demonstration, Printed materials, Verbal explanation Family : None BARB GILL LPN - 10/01/2011 10:06 CDT Source: [facility] POWERCHART Document Id: [id number] CDT!40 documented in this encounter Plan of Treatment Upcoming Encounters Date Type Specialty Care Team Description 04/12/2022 Office Visit Cardiovascular Disease Simone Gooden AP RN, C.N.P. [address] [phone] (Wo rk) documented as of this encounter Procedures Procedure Name Priority Date/Time Associated Diagnosis Comme nts LIPID PANEL, S Routine 10/01/2011 10:51 AM Result s for this CDT procedure are i n the results section. HEPATIC FUNCTION Routine 10/01/2011 10:51 AM Resu lts for this PANEL, S CDT procedure are i n the results section. PROSTATE-SPECIFIC Routine 10/01/2011 10:51 AM Res ults for this AG (PSA) SCRN, S CDT procedure a re in the results section. AUTOMATED Routine 10/01/2011 10:51 AM Results for this DIFFERENTIAL, B CDT procedure ar e in the results section. CBC WITH Routine 10/01/2011 10:51 AM Results for this DIFFERENTIAL, B CDT procedure ar e in the results section. THYROID-STIMULATING Routine 10/01/2011 10:51 AM R esults for this HORMONE-SENSITIVE CDT procedure are in (S-TSH) the results section. BASIC METABOLIC Routine 10/01/2011 10:51 AM Resul ts for this PANEL, S/P CDT procedure are i n the results section. DX CHEST AP OR PA Routine 10/01/2011 10:47 AM Res ults for this AND LATERAL 2 VIEWS CDT procedur e are in the results section. documented in this encounter Results Automated Differential (10/01/2011 10:51 AM CDT) P athologist Signature Neutro % 57.5 34.0 - 67.9 POWERCHART Lymphocytes % 27.8 21.8 - 53.1 POWERCHART HX [place] % 10.2 5.3 - 12.2 POWERCHART HX Eos % 4.1 0.8 - 7.0 POWERCHART HX Baso % 0.4 0.2 - 1.2 POWERCHART Specimen Anatomical Collection Method Collection Time Receive d Time (Source) Location / / Volume Laterality Blood 10/01/2011 10:51 10/01/2011 AM CDT 10:51 AM CDT Riley Valentepenny Ann. LAB BLOOD ADD-ON Performing Organization Address City/State/ZIP Code Phon e Number POWERCHART CBC with Differential (10/01/2011 10:51 AM CDT) athologist Signature Leukocytes 7.6 3.5 - 10.5 POWERCHART X109L Erythrocytes 5.60 4.32 - POWERCHART 5.72 [id number] Hemoglobin 16.2 13.5 - POWERCHART 17.5 GDL Hematocrit 47.2 38.8 - POWERCHART 50.0 MCV 84.3 81.0 - POWERCHART 95.0 FL Platelet Count 308 150 - 450 POWERCHART X109L HX RDW 14.3 11.8 - POWERCHART 15.6 HXDifferential? Auto POWERCHART Specimen (Source) Anatomical Collection Method Collection Time Re ceived Time Location / / Volume Laterality Blood 10/01/2011 10:51 AM CDT Riley Valentepenny M.Ele LAB BLOOD ADD-ON Performing Organization Address City/[facility]/ZIP Code Phon e Number POWERCHART PSA (Prostate-Specific Antigen) Screen (10/01/2011 10:51 AM CDT) athologist [facility] Prostate-Specif 1.8 <=4.5 NGML POWERCHART ic Ag Comment: The [...] absence of malignant disease. Test Performed by: [facility] Dpt of Lab Med and Pathology [address] [place] [id number] Continuous Churn Buttermaker: Cem cali III, M.D. Specimen (Source) Anatomical Collection Method Collection Time Re ceived Time Location / / Volume Laterality Blood 10/01/2011 10:51 AM CDT Riley Sanchez M.Bonilla. LAB BLOOD ADD-ON Performing Organization Address [facility] Phon e Number POWERCHART Thyroid-Stimulating Hormone-Sensitive (s-TSH) (10/01/2011 10:51 AM CDT) athologist Signature TSH, Sensitive 1.1 0.3 - 5.0 POWERCHART MIUL Comment: Test Performed by: [facility] Dpt of Lab Med and Pathology [address] [place], [place] [id number] Continuous Churn Buttermaker: Cem cali III, M.D. Specimen (Source) Anatomical Collection Method Collection Time Re ceived Time Location / / Volume Laterality Blood 10/01/2011 10:51 AM CDT Riley Sanchez M.D. LAB BLOOD ADD-ON Performing Organization Address City/State/[facility] [[email or web address]] Code Phon e Number POWERCHART Hepatic Function Panel (10/01/2011 10:51 AM CDT) [facility] Method Time Signature Albumin, S 4.3 3.5 - 5.0 POWERCHART GMDL Alkaline 98 45 - 115 POWERCHART Phosphatase, S UNITL Aspartate 27 8 - 48 POWERCHART Aminotransferase UNITL (AST), S Alanine 27 21 - 72 POWERCHART Amniotransferase, LD UNITL Bilirubin, Total, S 0.7 0.1 - 1.0 POWERCHART MGDL Bilirubin, Direct, S 0.0 0.0 - 0.3 POWERCHAR T MGDL Total Protein, S 7.5 6.3 - 8.2 POWERCHART MGDL Specimen (Source) Anatomical Collection Method Collection Time Re ceived Time Location / / Volume Laterality Blood 10/01/2011 10:51 AM CDT Riley Sanchez MRoldan LAB BLOOD ADD-ON Performing Organization Address City/[facility] [[email or web address]] Code Phon e Number POWERCHART (ABNORMAL) Lipid Panel (10/01/2011 10:51 AM CDT) [facility] Method Time Signature Cholesterol, Total 202 (H) 0 - 200 POWERCHART MGDL HX HDL 54.0 40.0 - POWERCHART 60.0 MGDL Triglycerides 117 0 - 150 POWERCHART MGDL Calculated LDL 125 (H) 0 - 100 POWERCHART MGDL Specimen (Source) Anatomical Collection Method Collection Time Re ceived Time Location / / Volume Laterality Blood 10/01/2011 10:51 AM CDT Ambrosiopatrick Ambrosiopenny M.Bonilla. LAB BLOOD ADD-ON Performing Organization Address City/[facility]/ZIP Code Phon e Number POWERCHART (ABNORMAL) BMP (Basic Metabolic Panel) (10/01/2011 10:51 AM CDT) P athologist Signature BUN (Blood Urea 14 7 - 23 POWERCHART Nitrogen), S MGDL Creatinine 1.0 0.9 - 1.4 POWERCHART MGDL Potassium, S 4.2 3.5 - 4.8 POWERCHART MMOLL Sodium, S 143 135 - 145 POWERCHART MMOLL Chloride, S 104 100 - 108 POWERCHART MMOLL CO2 Total 30 (H) 22 - 29 POWERCHART MMOLL Calcium, Total, 9.6 8.5 - 10.5 POWERCHART S MGDL BUN/Creatinine 14 POWERCHART Ratio Glucose, 96 70 - 99 POWERCHART Fasting, S MGDL HXeGFR (MDRD) >60 MLMIN POWERCHART eGFR >60 MLMIN POWERCHART Black/ Specimen (Source) Anatomical Collection Method Collection Time Re ceived Time Location / / Volume Laterality Blood 10/01/2011 10:51 AM CDT Riley Sanchez M.D. LAB BLOOD ADD-ON Performing Organization Address City/State/ZIP Code Phon e Number POWERCHART DX Chest AP or PA and Lateral 2 Views (10/01/2011 10:47 AM CDT) Anatomical Region Laterality Modality Chest N/A Radiographic Imaging Specimen (Source) Anatomical Collection Method Collection Time Re ceived Time Location / / Volume Laterality 10/01/2011 10:47 AM CDT Addenda Addendum by Provider, Javid Samson 10/01/2011 10:47 AM CDT RAD^^^OW XR Chest 2 Views 10/01/2011 10:47:00 Impressions 10/01/2011 11:27 AM CDT No acute cardiopulmonary disease. Narrative 10/01/2011 11:27 AM CDT COMPARISON: February 12, 2010. FINDINGS: Heart size, cardiomediastinal, hilar contours are within normal limits. Lungs are clear. No pleur al effusion. No pulmonary vascular congestion. No acute osseous ab normality identified. Procedure Note Juan Toth M.D. / Provider, His lilli M.D. - 09/24/2016 COMPARISON: February 12, 2010. FINDINGS: Heart size, cardiomediastinal, hilar contours are within normal limits. Lungs are clear. No pleur al effusion. No pulmonary vascular congestion. No acute osseous ab normality identified. IMPRESSION: No acute cardiopulmonary dis ease. [place] Provider IMG DIAGNOSTIC IMAGING PROCE DURES documented in this encounter Visit Diagnoses Not on filedocumented in this encounter
--- OUTSIDE RECORDS SUMMARY | 2022-03-29 07:59 | XMS_ITS | Encounter Summary ---
:1950 Author Organization [facility] Address [address] [place] [address] Care Team Providers Name Role Phone Unavailable Primary Care Provider Unavailable Encounter Details Date Type Department Care Team Description 02/25/2011 Hospital Encounter HX [facility] Tamika Camejo M.D. [address] [place] [phone] (Wo rk) Social History Tobacco [...] How often do you attend gnosticist or methodist services? 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 - 02/25/2011 12:00 AM CDT [id number] PROCEDURE Cystoscopy The patient was appropriately identified with at least two separate identifiers and the correct procedure was confirmed. INDICATION Bladder cancer. This is a 61-year-old male who has [...] further BCG. His last cystoscopy was on 10/08/2010 and was minimally suspicious, but urine cytology and FISH studies were negative. [...] are negative, return to urologic clinic in three months for a repeat cystoscopy. If it continues to be negative, we will space out the interval of his cystoscopies to four month intervals. /nmd Signed Tamika Camejo M.D. Urology CC: Riley Sanchez M.D. Internal Medicine [address] [place] [id number] Electronically Signed By: TAMIKA CAMEJO MD On: 02/26/2011 04:20 PM Source: [facility] MHSDOLBEYNONRADSYS Document Id: [id number] documented in this encounter Miscellaneous Notes Miscellaneous - Tamika Camejo M.D. - 02/28/2011 3:09 PM CDT Results Notification Document Contains Addenda Addendum by PRUDENCIO LOVE on 28 February 2011 17:21:28 CDT Patient notified by phone. Addendum by OLIMPIA MEDRANO on 28 February 2011 16:37:43 CDT LMTCB From: TAMIKA CAMEJO MD To: Urology Pool Sent: 02/28/2011 15:09:24 CDT ! Show up: 02/28/2011 15:08:00 CDT Subject: Results Notification Actions: Notify patient of results Due Date/Time: 02/28/2011 15:08:00 CDT Source: [facility] POWERCHART Document Id: [id number] Miscellaneous - Tamika Camejo M.D. - 02/25/2011 11:29 AM CDT [place] [address] Visit Information Name: SEVEN SALAZAR Current Date: 02/25/2011 11:29:37 Primary Care Provider: RILEY SANCHEZ MD Your Medications Here is a list of your medications. It is important to take your medications as directed. Use a pillbox or chart to help remind you to take your medications. Please let your doctor or nurse know if you have problems taking your medications. Medication/Strength Dose Route Frequency Indications/Special Instructions/Comments APAP/ASA/caffeine (Excedrin Migraine) Oral Pain lisinopril-hydrochlorothiazide (hydrochlorothiazide-lisinopril 25 mg-20 mg oral tablet) [...] you from getting the serious disease Tetanus (Alen). Your Upcoming Appointments Date Time Location Reason Provider 02/25/2011 15:40 [facility] Follow up Riley Sanchez MD Your Goals/Additional instructions: Source: [facility] POWERCHART Document Id: [id number] Miscellaneous - Tamika Camejo M.D. - 02/25/2011 11:29 AM CDT [place] [address] Visit Information Name: SEVEN SALAZAR Current Date: 02/25/2011 11:29:35 Primary Care Provider: RILEY SANCHEZ MD SEVEN [...] Route Frequency Indications/Special Instructions/Comments APAP/ASA/caffeine (Excedrin Migraine) Oral Pain lisinopril-hydrochlorothiazide (hydrochlorothiazide-lisinopril 25 mg-20 mg oral tablet) [...] to the patient and/or family, guardian/caregiver. Source: [facility] POWERCHART Document Id: [id number] Miscellaneous - Olimpia Velázquez C.M.A. - 02/25/2011 10:57 AM CDT Adult Performance Reporter Intake/History Adult Performance Reporter Intake/History Entered On: 02/25/2011 11:00 CDT Performed On: 02/25/2011 10:57 CDT by OLIMPIA MEDRANO Intake Chief Complaint: cystoscopy w/bugby Temperature Core: 37.1C(Converted to: 98.8DegF) Peripheral Pulse Rate: 70/min Systolic Blood Pressure: 130mmHg Diastolic Blood Pressure: 72mmHg NIBP Mean: 91mmHg BP Location: Left upper extremity OLIMPIA MEDRANO - 02/25/2011 10:57 CDT Subjective Pain Symptoms: No OLIMPIA MEDRANO - 02/25/2011 10:57 CDT Dependent Habits Tobacco Use/Currently Using: Yes Tobacco Use/Advised to Quit: Yes Exposure to Tobacco Smoke: Patient smokes Smoking Status: Smoker OLIMPIA MEDRANO - 02/25/2011 10:57 CDT Tobacco Use Grid Type: Cigarettes Cigarette Use Packs/Day: 0.5 Last Use: today OLIMPIA MEDRANO - 02/25/2011 10:57 CDT Alcohol Use: No OLIMPIA MEDRANO - 02/25/2011 10:57 CDT Caffeine Use Grid Caffeine Use: Current Type: Coffee, Tea Frequency: Daily Amount: 2 cup/day Last Use: today OLIMPIA MEDRANO - 02/25/2011 10:57 CDT Allergy Allergies (Active) NKA Estimated Onset Date: Unspecified ; Created By: SARAI NIXON; Reaction Status: Active ; Category:Drug ; Substance: NKA ; Type: Allergy ; Updated By: SARAI NIXON; Reviewed Date: 02/25/2011 10:55 CDT Source: [facility] POWERCHART Document Id: [id number] CDT!29 documented in this encounter Plan of Treatment Upcoming Encounters Date Type Specialty Care Team Description 04/12/2022 Office Visit Cardiovascular Disease Simone Gooden AP RN, C.N.P. 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 documented in this encounter Results Pathology Non-FILING MACHINE OPERATOR Cytology (02/25/2011 12:13 PM CDT) [facility] gist Method Time Signature HX Spec See Comment POWERCHART [facility] Comment: RESULT: A. ??Urine Voided: ??Received 40 cc of yellow urine Test Performed by: [facility] Dpt of Lab Med and Pathology [address] [place] [address] Financial Coordinator: Cem cali III, M.D. Specimen (Source) Anatomical Collection Method Collection Time Re ceived Time Location / / Volume Laterality Urine 02/25/2011 12:13 PM CDT Tamika Camejo M.D. LAB SURG PATH ORDERABLES Performing Organization Address City/State/ZIP Code Phon e Number POWERCHART documented in this encounter Visit Diagnoses Not on filedocumented in this encounter
--- OUTSIDE RECORDS SUMMARY | 2022-03-29 07:59 | XMS_ITS | Encounter Summary ---
:1950 Author Organization [facility] Address [address] [place] [address] Care Team Providers Name Role Phone Unavailable Primary Care Provider Unavailable Encounter Details Date Type Department Care Team Description 09/24/2010 Hospital Encounter HX [facility] FB LAB Leta Sanchez M.D. [address] [facility], [facility] [address] [place] [phone] Social History Tobacco Use Types Packs/Day [...] How often do you attend gnosticist or church services? 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 [address] [phone] (Wo rk) documented as of this encounter Visit Diagnoses Not on filedocumented in this encounter
--- OUTSIDE RECORDS SUMMARY | 2022-03-29 07:59 | XMS_ITS | Encounter Summary ---
:1950 Author Organization [facility] Address [address] [place] [address] Care Team Providers Name Role Phone Unavailable Primary Care Provider Unavailable Encounter Details Date Type Department Care Team Description 10/26/2010 Hospital Encounter HX [facility] FB LAB Leta Sanchez M.D. 15[address] [facility], [facility] [address] [place] [phone] Social History Tobacco Use Types Packs/Day [...] How often do you attend hoahaoism or jain services? 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 [address] [phone] (Wo rk) documented as of this encounter Visit Diagnoses Not on filedocumented in this encounter
--- OUTSIDE RECORDS SUMMARY | 2022-03-29 07:59 | XMS_ITS | Encounter Summary ---
:1950 Author Organization [facility] Address [address] [place] [address] Care Team Providers Name Role Phone Unavailable Primary Care Provider Unavailable Encounter Details Date Type Department Care Team Description 12/07/2010 Hospital Encounter HX [facility] FB Riley Jimenez M.D. 1518 [facility], [facility] [address] [phone] Social History Tobacco Use Types Packs/Day [...] How often do you attend samaritan or restorationism services? 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 - 12/07/2010 12:00 AM CDT [id number] CHIEF COMPLAINT/REASON FOR VISIT Recheck. HISTORY OF PRESENT ILLNESS Mr. Salazar is a 60-year-old white man who came in today for followup. He is doing fine. He does not have any complaints. Currently he takes prednisone. According to him last month was the best month and in 8 to 10 months. He did not feel well following after urinary bladder cancer diagnosis. He had a blood test on December 04, 2010. According to the patient he cut back prednisone 10 milligrams daily because he was feeling good. There is no more arthralgia muscle aches or pains. He has been taking prednisone 10 milligrams daily for about 10 days. Now he is active again. He has been working out and When I saw him last time on October 29, 2010. He was given prescription for Chantix. He has been taking it. He does not notice any side effects. Chantix is helping him once in awhile he smokes cigarettes yesterday he smoked one cigarette. He could not quit tobacco completely yet. He has hypertension and he monitored blood pressure regularly at home according to him blood pressure were controlled. It was 115/78 yesterday he denies chest pain, short of breath, dizzy, lightheadedness. He has been followed with Dr. Camejo Urologist for urinary bladder cancer, cystoscopy was done on October 08, 2010, urine cytology was done it was negative for malignancy. He does not have follow up appointment. He wants to know when he should go back to see Dr. Camejo and repeat cystoscopy. I sent a message to Dr. Camejo according to his previous order, the patient needs to go back to see Dr. Camejo at the end of December. The patient will make an appointment. Another complaint is skin tags, especially in both axillary region and around the neck they are bothering him. He would like to remove those skin tags. Advised him to make an appointment so we can remove those skin tags. According to the patient he does not watch sodium intake. He has been drinking can soup. Because of high blood pressure he needs to control sodium in his diet. Sodium intake should be less than 2000 milligrams per day. He was given information about high blood pressure and controlling sodium. CURRENT MEDICATIONS Reviewed and updated as per [...] the EMR. PHYSICAL EXAM GENERAL: Patient is overweight sitting no distress. Able to talk without interruption. HEAD: No facial rash, asymmetry or sinus tenderness. EYES: PERRLA, EOMI. No pallor, icterus or conjunctivitis. ENT: No nasal congestion, discharge or bleeding. There is no ear infection or discharge. No mastoid tenderness. Tongue is moist, midline. No oral lesions. SKIN: Remarkable for skin tags in the axilla and around the neck. IMPRESSION/REPORT/PLAN 1. Arthralgia it is better. He cut back prednisone on his own advised him not to cut back prednisone without telling me. Recent sedimentation rate was normal but C reactive protein was high at 13.2 need to monitor every month. So far he does not have side effects from prednisone he should continue Bactrim for PCP prophylaxis. He should drink enough fluids. We may need to cut back prednisone 1 milligram every month. If he is asymptomatic and sed rate inflammatory markers were normal. 2. Urinary bladder cancer. He will follow with Dr. Camejo I reviewed Dr. Camejo recommendations I sent a message to Dr. Camejo patient will make an appointment to see Dr. Camejo end of December 2010 3. Hypertension. His blood pressure is high. Repeated blood pressure was 140/80 and 142/78. Advised him to cut back sodium in his diet. He was given information about high blood pressure and sodium it is better if he can quite smoking completely which can cause high blood pressure 4. Multiple skin tags around the neck and axillary regions he will be back in one month at that time we will remove skin tags. 5. Tobacco use. He will continue Chantix. So far no side effects. Patient will try to quit smoking completely. All of his questions were answered. Discussed with him about blood test done on December 04, 2010 they are unremarkable except for elevated CRP Return to clinic in 1 month for followup. We need to check complete blood count, sedimentation rate, C-reactive protein at that time. PP/kmk Signed Riley Sanchez M.D. Internal Medicine Electronically Signed By: RILEY SANCHEZ MD On: 12/13/2010 09:10 AM Electronically Signed by Proxy by: MARTHA GALICIA MD Source: [facility] MHSDOLBEYNONRADSYS Document Id: [id number] documented in this encounter Miscellaneous Notes Miscellaneous - Riley Sanchez M.D. - 12/07/2010 3:27 PM CDT Ambulatory Patient Summary [address] [address] Visit Information Name: SEVEN SALAZAR Current Date: 12/07/2010 15:27:11 Primary Care Provider: RILEY SANCHEZ MD Your [...] beginning WEEK 5 until end of treatment predniSONE (predniSONE 5 mg oral tablet) See Instructions 2 tab(s) PO Daily with food / Dose decreased on 12/06/2010. hydrochlorothiazide-lisinopril (hydrochlorothiazide-lisinopril 25 mg-20 mg oral tablet) [...] and stroke. Vaccine: Flu every 1 year 12/07/2010 Immunization to help prevent you from getting the flu strain expected to be a problem for that year's flu season. Vaccine: Tetanus every 10 years 02/12/2010 02/10/2020 Immunization to help prevent you from getting the serious disease Tetanus (Lockjaw). Your Upcoming Appointments Date Time Location Reason Provider No Appointments found Your Goals/Additional instructions: Source: [facility] POWERCHART Document Id: [id number] Electronically signed by Rivka, [facility] Humidifier Operator [id number] at 10/06/2016 10:01 PM CDT Miscellaneous - Riley Sanchez M.D. - 12/07/2010 3:27 PM CDT Ambulatory Depart Summary [place] [id number] [place] [address] Visit Information Name: SEVEN SALAZAR Current Date: 12/07/2010 15:27:10 Primary Care Provider: RILEY SANCHEZ MD SEVEN [...] beginning WEEK 5 until end of treatment predniSONE (predniSONE 5 mg oral tablet) See Instructions 2 tab(s) PO Daily with food / Dose decreased on 12/06/2010. hydrochlorothiazide-lisinopril (hydrochlorothiazide-lisinopril 25 mg-20 mg oral tablet) 1 tab(s) Oral once a day (at bedtime) Cancel previous prescriptions for HCTZ and lisinopril. Additional Information: Yes - Current list of reconciled medications is provided and explained to the patient and/or family, guardian/caregiver. Source: [facility] [employer] Document Id: [id number] Miscellaneous - Riley Sanchez M.D. - 12/07/2010 3:21 PM CDT Ambulatory Vitals Height Weight Ambulatory Vitals Height Weight Entered On: 12/07/2010 15:22 CDT Performed On: 12/07/2010 15:21 CDT by RILEY SANCHEZ MD Vitals/Ht/Wt Systolic Blood Pressure: 142mmHg (HI) Diastolic Blood Pressure: 78mmHg NIBP Mean: 99mmHg BP Location: Right upper extremity RILEY SANCHEZ MD - 12/07/2010 15:21 CDT Source: [facility] [employer] Document Id: [id number] CDT!6 Jodicellaneous - Riley Sanchez M.D. - 12/07/2010 3:18 PM CDT Ambulatory Vitals Height Weight Ambulatory Vitals Height Weight Entered On: 12/07/2010 15:19 CDT Performed On: 12/07/2010 15:18 CDT by RILEY SANCHEZ MD Vitals/Ht/Wt Peripheral Pulse Rate: 80/min Systolic Blood Pressure: 140mmHg Diastolic Blood Pressure: 80mmHg NIBP Mean: 100mmHg BP Location: Right upper extremity Heart Rhythm: Regular RILEY SANCHEZ MD - 12/07/2010 15:18 CDT Source: [employer] Document Id: [id number] CDT!8 Miscellaneous - Rachel Mclaughlin, L.P.N. - 12/07/2010 2:52 PM CDT Ambulatory Vitals Height Weight Ambulatory Vitals Height Weight Entered On: 12/07/2010 14:54 CDT Performed On: 12/07/2010 14:52 CDT by RACHEL MCLAUGHLIN Vitals/Ht/Wt Systolic Blood Pressure: 142mmHg (HI) Diastolic Blood Pressure: 80mmHg NIBP Mean: 101mmHg BP Location: Right upper extremity RACHEL MCLAUGHLIN - 12/07/2010 14:52 CDT Source: [employer] Document Id: [id number] CDT!6 Miscellaneous - Rachel Mclaughlin L.P.N. 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/History Entered On: 12/07/2010 14:52 CDT Performed On: 12/07/2010 14:47 CDT by RACHEL MCLAUGHLIN Intake Chief Complaint: tobacco use and arthralgia Temperature Core: 37.0C(Converted to: 98.6DegF) Peripheral Pulse Rate: 82/min Respiratory Rate: 14/min Systolic Blood Pressure: 144mmHg (HI) Diastolic Blood Pressure: 82mmHg NIBP Mean: 103mmHg BP Location: Right upper extremity SpO2: 97% Heart Rhythm: Regular Actual Weight: 99.500kg(Converted to: 219lb 6oz) Weight Source: Standing scale Dosing Weight Clinic: 99.50kg RACHEL MCLAUGHLIN - 12/07/2010 14:47 CDT Subjective Pain Symptoms: No RACHEL MCLAUGHLIN - 12/07/2010 14:47 CDT Dependent Habits Tobacco Use/Currently Using: Yes Exposure to Tobacco Smoke: Patient smokes RACHEL MCLAUGHLIN - 12/07/2010 14:47 CDT Tobacco Use Grid Type: Cigarettes Cigarette Use Packs/Day: 0.5 Last Use: today RACHEL MCLAUGHLIN - 12/07/2010 14:47 CDT Alcohol Use: No RACHEL MCLAUGHLIN - 12/07/2010 14:47 CDT Caffeine Use Grid Caffeine Use: Current Type: Coffee, Tea Frequency: Daily Amount: 2 cup/day Last Use: today RACHEL MCLAUGHLIN - 12/07/2010 14:47 CDT Allergy Allergies (Active) NKA Estimated Onset Date: Unspecified ; Created By: SARAI NIXON; Reaction Status: Active ; Category:Drug ; Substance: NKA ; Type: Allergy ; Updated By: SARAI NIXON; Reviewed Date: 12/07/2010 14:47 CDT Source: [facility] POWERCHART Document Id: [id number] CDT!33 documented in this encounter Plan of Treatment Upcoming Encounters Date Type Specialty Care Team Description 04/12/2022 Office Visit Cardiovascular Disease Simone Gooden AP RN, C.N.P. [address], [place] [phone] (Wo rk) documented as of this encounter Visit Diagnoses Not on filedocumented in this encounter
--- OUTSIDE RECORDS SUMMARY | 2022-03-29 07:59 | XMS_ITS | Encounter Summary ---
:1950 Author Organization [facility] Address [address] [place] [address] Care Team Providers Name Role Phone Unavailable Primary Care Provider Unavailable Encounter Details Date Type Department Care Team Description 02/08/2011 Hospital Encounter HX [facility] SPEC NURS Leta Sanchez M.D. 1518 [facility], [facility] [address] [place] [address] Social History Tobacco Use Types Packs/Day [...] How often do you attend faith or druze services? 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 as of this encounter Miscellaneous Notes Miscellaneous - Conversion, Historical Provider Ser - 02/08/2011 10:00 AM CDT Ambulatory Vitals Height Weight Ambulatory Vitals Height Weight Entered On: 02/08/2011 10:00 CDT Performed On: 02/08/2011 10:00 CDT by BARB GILL LPN Vitals/Ht/Wt Peripheral Pulse Rate: 80/min Systolic Blood Pressure: 136mmHg Diastolic Blood Pressure: 82mmHg NIBP Mean: 100mmHg BP Location: Right upper extremity BARB GILL LPN - 02/08/2011 10:00 CDT Source: [employer] Document Id: [id number] CDT!7 Miscellaneous - Conversion, Historical Provider Ser - 02/08/2011 9:57 AM CDT Ambulatory Vitals Height Weight Ambulatory Vitals Height Weight Entered On: 02/08/2011 10:00 CDT Performed On: 02/08/2011 9:57 CDT by BABR GILL LPN Vitals/Ht/Wt Peripheral Pulse Rate: 80/min Systolic Blood Pressure: 142mmHg (HI) Diastolic Blood Pressure: 82mmHg NIBP Mean: 102mmHg BP Location: Right upper extremity BARB GILL LPN - 02/08/2011 9:57 CDT Source: [employer] Document Id: [id number] CDT!7 documented in this encounter Plan of Treatment Upcoming Encounters Date Type Specialty Care Team Description 04/12/2022 Office Visit Cardiovascular Disease Simone Gooden AP RN, C.N.P. [address] [place] [phone] (Wo rk) documented as of this encounter Visit Diagnoses Not on filedocumented in this encounter
--- OUTSIDE RECORDS SUMMARY | 2022-03-29 07:59 | XMS_ITS | Encounter Summary ---
:1950 Author Organization [facility] Address [address] [place] [address] Care Team Providers Name Role Phone Unavailable Primary Care Provider Unavailable Encounter Details Date Type Department Care Team Description 09/28/2010 Hospital Encounter HX [facility] FB LAB Riley Sanchez M.D. [address] [facility], [facility] [address] [phone] Social History Tobacco Use Types Packs/Day [...] How often do you attend christian or bahai services? 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 - 09/28/2010 12:00 AM CDT [id number] IMPRESSION / REPORT / PLAN 1. Arthritis with arthralgia. I believe it is related to intravesicle BCG therapy. His symptoms have responded to prednisone therapy. He will continue prednisone. We will adjust the dose pending on today's sedimentation rate and C reactive protein results. So far he does not notice side effects except for weight gain. I advised him to see a specialist at [facility] to make sure I do not miss other etiology for arthritis and arthralgia. He is gong to see Dr. Camejo on October 08, 2010. He will discuss with Dr. Camejo at that time. 2. Leukocytosis. We need to check complete blood count. At this point, it is difficult to differentiate etiology of leukocytosis which can be high while he is on prednisone therapy. Clinically, there is no evidence of infection. 3. Hypertension. Repeated blood pressure was 166/88 mmHg right arm sitting. He is stable from a cardiac standpoint. According to the patient, his blood pressure has been controlled at home. Advised him to watch sodium intake. That should be less than 2 grams per day. He will continue current medications and he will monitor blood pressure regularly at home. If there is persistent elevated blood pressure, we need to adjust his antihypertensive medication. 4. Weight gain. He has gained weight 2.5 Kg since 09-06-2010. I believe it is related to salt and water retention from prednisone therapy. All of his questions were answered. Return to the clinic in one month for follow up. At that time we need to check complete blood count, basic metabolic profile, Creatinine protein and sedimentation sed rate. Today's studies: Complete blood count, C Reactive protein and sedimentation rate. He will be notified when we get all these test results. CHIEF COMPLAINT/REASON FOR VISIT Recheck HISTORY OF PRESENT ILLNESS This is a 60 year-old white man who came in today for follow up. I saw him on September 06, 2010 for evaluation of arthralgia with arthritis. He was noted to have elevated sedimentation rate and Creatinine. He was started on prednisone 20 mg by mouth daily in the morning. Since he has been on prednisone his symptoms are better. There is no more joint swelling and joint pain. His arthralgia is improved significantly. Right now he has minor aches and pains. There is no stiffness. So far he does not have side effects from prednisone. He was referred to [facility]. So far he has not heard anything. Since he has been taking prednisone. He has had no weight gain. There was no chest pain, orthopnea, paroxysmal dyspnea, palpitations or peripheral edema. He has hypertension. He monitored his blood pressure at home. Systolic blood pressure is 120s, diastolic blood pressure is in the 70s to 80s. He usually checks it in the evening. I reviewed with him about possible etiology. Most likely his symptoms are related to intravesical BCG therapy. I discussed with Dr. Camejo about him and patient is going to see Dr. Camejo on October 08, 2010. We need to check sedimentation rate, Creative protein and we need to adjust the dose of prednisone, pending on these test results. It should be noted that patient was here on Sep 24 2010 for blood tests. At that time he had basic metabolic profile only, rest of the lab order were missed. CURRENT MEDICATIONS Post-visit Medication Reconciliation Reviewed and updated as per the EMR. ALLERGIES Reviewed and updated as per the EMR. SYSTEMS REVIEW As per the history of present illness. Other systems are reviewed and are negative. PAST MEDICAL/SURGICAL HISTORY Reviewed and updated as per the EMR. PREVENTIVE SERVICES Reviewed and updated as per the EMR. VITAL SIGNS Reviewed as per the EMR. PHYSICAL EXAM AREA EXAM TEXT GENERAL Patient is sitting with no distress. Able to talk without interruption. HEAD No facial rash, asymmetry or sinus tenderness. EYES PERRLA, EOMI. No pallor, icterus or conjunctivitis. ENT No nasal congestion, discharge or bleeding. There is no ear infection. Normal tympanic membrane. No mastoid tenderness. Tongue is moist, midline. No oral lesion or dehydration. PP/kmk Signed Riley Sanchez M.D. Internal Medicine Electronically Signed By: RILEY SANCHEZ MD On: 10/03/2010 03:34 PM Modified by and Electronically Signed by: RILEY SANCHEZ MD On: 10/03/2010 03:34 PM Source: [facility] [email or web address] Document Id: [id number] documented in this encounter Miscellaneous Notes Miscellaneous - Riley Sanchez M.D. - 09/29/2010 9:47 AM CDT Results Notification Document Contains Addenda Addendum by PRACHI GRIMM on 04 October 2010 18:30:22 CDT Mailed report From: RILEY SANCHEZ MD To: PRACHI GRIMM Sent: 09/29/2010 09:47:58 CDT ! Show up: 09/29/2010 09:46:00 CDT Subject: Results Notification Actions: Notify patient of results Due Date/Time: 09/29/2010 09:46:00 CDT Source: [facility] POWERCHART Document Id: [id number] Electronically signed by Rivka [facility] Intern Architect [id number] at 10/06/2016 6:26 PM CDT documented in this encounter Plan of Treatment Upcoming Encounters Date Type Specialty Care Team Description 04/12/2022 Office Visit Cardiovascular Disease Simone Gooden AP RN, C.N.P. [address] [phone] (Wo rk) documented as of this encounter Visit Diagnoses Not on filedocumented in this encounter
--- OUTSIDE RECORDS SUMMARY | 2022-03-29 08:00 | XMS_ITS | Encounter Summary ---
:1950 Author Organization [facility] Address [address] [place] [address] Care Team Providers Name Role Phone Unavailable Primary Care Provider Unavailable Encounter Details Date Type Department Care Team Description 04/23/2010 Hospital Encounter HX [facility] FBHB LAB Tarik Camejo M.D. [address] [place], [place] [phone] (Wo rk) Social History [...] How often do you attend pentecostalism or mosque services? 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 [address] [phone] (Wo rk) documented as of this encounter Visit Diagnoses Not on filedocumented in this encounter
--- OUTSIDE RECORDS SUMMARY | 2022-03-29 08:00 | XMS_ITS | Encounter Summary ---
:1950 Author Organization [facility] Address [address] [place] [address] Care Team Providers Name Role Phone Unavailable Primary Care Provider Unavailable Encounter Details Date Type Department Care Team Description 04/02/2010 Hospital Encounter HX [facility] Jatinder Camejo M.D. [address] [place] [phone] (Wo rk) Social History Tobacco [...] How often do you attend yazidism or pentecostal services? Never 04/16/2019 Do you [...] at Date Recorded Male 06/28/2019 8:47 AM KILNMAN documented as of this encounter Miscellaneous Notes Miscellaneous - Prudencio Cannon, L.P.N. 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 Intake/History Adult Automotive Service Writer Intake/History Entered On: 04/02/2010 9:11 KILNMAN Performed On: 04/02/2010 9:07 KILNMAN by PRUDENCIO CANNON Intake Chief Complaint: 3 OF 6 LUI BCG Temperature Core: 36.8C(Converted to: 98.2DegF) Peripheral Pulse Rate: 80/min Systolic Blood Pressure: 140mmHg Diastolic Blood Pressure: 80mmHg NIBP Mean: 100mmHg BP Location: Left upper extremity PRUDENCIO CANNON - 04/02/2010 9:07 KILNMAN Subjective Pain Symptoms: No PRUDENCIO CANNON - 04/02/2010 9:07 KILNMAN Dependent Habits Tobacco Use/Currently Using: Yes Exposure to Tobacco Smoke: Patient smokes PRUDENCIO CANNON - 04/02/2010 9:07 KILNMAN Tobacco Use Grid Type: Cigarettes Cigarette Use Packs/Day: 0.7 Last Use: today PRUDENCIO CANNON - 04/02/2010 9:07 KILNMAN Caffeine Use Grid Caffeine Use: Current Type: Coffee, Tea Frequency: Daily Amount: 2 cup/day Last Use: today PRUDENCIO CANNON - 04/02/2010 9:07 KILNMAN Allergies Allergies (Active) NKA Estimated Onset Date: Unspecified ; Created By: SARAI NIXON; Reaction Status: Active ; Category:Drug ; Substance: NKA ; Type: Allergy ; Updated By: SARAI NIXON; Reviewed Date: 04/02/2010 9:02 KILNMAN Source: [employer] Document Id: [id number]!26 MAN documented in this encounter Plan of Treatment Upcoming Encounters Date Type Specialty Care Team Description 04/12/2022 Office Visit Cardiovascular Disease Simone Gooden AP RN, C.N.P. [address] [phone] (Wo rk) documented as of this encounter Visit Diagnoses Not on filedocumented in this encounter
--- OUTSIDE RECORDS SUMMARY | 2022-03-29 08:00 | XMS_ITS | Encounter Summary ---
:1950 Author Organization [facility] Address [address] [place] [address] Care Team Providers Name Role Phone Unavailable Primary Care Provider Unavailable Encounter Details Date Type Department Care Team Description 07/12/2010 Hospital Encounter HX [facility] FB Leta Jimenez M.D. [address] [facility], [facility] [address] [phone] Social History Tobacco Use Types Packs/Day [...] How often do you attend presybeterian or samaritan services? 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 [address] [phone] (Wo rk) documented as of this encounter Visit Diagnoses Not on filedocumented in this encounter
--- OUTSIDE RECORDS SUMMARY | 2022-03-29 08:00 | XMS_ITS | Encounter Summary ---
:1950 Author Organization [facility] Address [address] [place] [address] Care Team Providers Name Role Phone Unavailable Primary Care Provider Unavailable Encounter Details Date Type Department Care Team Description 05/07/2010 Hospital Encounter HX [facility] FB LAB Leta Sanchez M.D. 15[address] [facility], [facility] [address] [phone] Social History Tobacco Use Types Packs/Day [...] How often do you attend mormon or cheondoism services? 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 [address] [phone] (Wo rk) documented as of this encounter Visit Diagnoses Not on filedocumented in this encounter
--- OUTSIDE RECORDS SUMMARY | 2022-03-29 08:00 | XMS_ITS | Encounter Summary ---
:1950 Author Organization [facility] Address [address] [place] [address] Care Team Providers Name Role Phone Unavailable Primary Care Provider Unavailable Encounter Details Date Type Department Care Team Description 08/06/2010 Hospital Encounter HX [facility] Jatinder Camejo M.D. [address] [place] [phone] (Wo rk) Social History Tobacco [...] How often do you attend voodoo or rastafari services? 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 - 08/06/2010 10:15 AM CDT Adult Adult School Counselor Intake/History Adult Adult School Counselor Intake/History Entered On: 08/06/2010 12:35 CDT Performed On: 08/06/2010 10:15 CDT by PRUDENCIO CANNON Intake Chief Complaint: # 1 of 3 LUI/BCG treatments Temperature Core: 36.6C(Converted to: 97.9DegF) Peripheral Pulse Rate: 72/min Systolic Blood Pressure: 128mmHg Diastolic Blood Pressure: 86mmHg NIBP Mean: 100mmHg BP Location: Left upper extremity IVAN PRUDENCIO Maguire - 08/06/2010 12:32 CDT Subjective Pain Symptoms: No IVAN PRUDENCIO Maguire 08/06/2010 12:32 CDT Dependent Habits Tobacco Use/Currently Using: Yes Exposure to Tobacco Smoke: Patient smokes PRUDENCIO CANNON 08/06/2010 12:32 CDT Tobacco Use Grid Type: Cigarettes Cigarette Use Packs/Day: 0.5 Last Use: today IVAN PRUDENCIO Maguire - 08/06/2010 12:32 CDT Alcohol Use: No PRUDENCIO CANNON 08/06/2010 12:32 CDT Caffeine Use Grid Caffeine Use: Current Type: Coffee, Tea Frequency: Daily Amount: 2 cup/day Last Use: today IVAN PRUDENCIO Maguire 08/06/2010 12:32 CDT Allergies Allergies (Active) NKA Estimated Onset Date: Unspecified ; Created By: SARAI NIXON; Reaction Status: Active ; Category:Drug ; Substance: NKA ; Type: Allergy ; Updated By: SARAI NIXON; Reviewed Date: 08/06/2010 12:29 CDT Source: [employer] Document Id: [id number]!27 documented in this encounter Plan of Treatment Upcoming Encounters Date Type Specialty Care Team Description 04/12/2022 Office Visit Cardiovascular Disease Simone Gooden AP RN, C.N.P. [address] [phone] (Wo rk) documented as of this encounter Visit Diagnoses Not on filedocumented in this encounter
--- OUTSIDE RECORDS SUMMARY | 2022-03-29 08:00 | XMS_ITS | Encounter Summary ---
:1950 Author Organization [facility] Address [address] [place] [address] Care Team Providers Name Role Phone Unavailable Primary Care Provider Unavailable Encounter Details Date Type Department Care Team Description 03/27/2010 Hospital Encounter HX [facility] FB Kumar Pink M.D. [address] [facility], [address] [place] [address] (Wo rk) Social History Tobacco Use Types [...] How often do you attend adventism or orthodox services? 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 [address] [phone] (Wo rk) documented as of this encounter Procedures Procedure Name Priority Date/Time Associated Diagnosis Comme nts DX HIP AND PELVIS Routine 03/27/2010 10:35 AM Res ults for this RIGHT 1 VIEW MARKETING SERVICES MANAGER procedure are i n the results section. documented in this encounter Results DX Hips And Pelvis Right 1 View (03/27/2010 10:35 AM MARKETING SERVICES MANAGER) Anatomical Region Laterality Modality Lower Extremity, Pelvis, Hip Right Radiographi c Imaging Specimen (Source) Anatomical Collection Method Collection Time Re ceived Time Location / / Volume Laterality 03/27/2010 10:35 AM MARKETING SERVICES MANAGER Addenda Addendum by Provider, Javid Samson o lindy 03/27/2010 10:35 AM MARKETING SERVICES MANAGER RAD^^^OW XR Pelvis Hip Right 1 view 03/27/2010 10:35:00 Impressions 03/27/2010 10:59 AM MARKETING SERVICES MANAGER Negative pelvis and hips with attention to the right. Narrative 03/27/2010 10:59 AM MARKETING SERVICES MANAGER HISTORY: Pain. ?? COMPARISON: None. ?? FINDINGS: Soft tissues are unremarkable except for some vascular calcification in the pelvis bilaterally. No pelvic or hip fracture or destructive lesion is identified with at tention to the right. Hip joint spaces appear to be preserved and bilaterally symmetric without significant degenerative change and sacr oiliac joints are unremarkable. There is some degenerative disc disease in the lower lumbar spine. ?? Procedure Note Lenny Hickey Jr., M.D. / Mali Roblero M.D. - 09/27/2016 HISTORY: Pain. COMPARISON: None. FINDINGS: Soft tissues are unremarkable except for some vascular calcification in the pelvis bilaterally. No pelvic or hip fracture or destructive lesion is identified with at tention to the right. Hip joint spaces appear to be preserved and bilaterally symmetric without significant degenerative change and sacr oiliac joints are unremarkable. There is some degenerative disc disease in the lower lumbar spine. IMPRESSION: Negative pelvis and hips wit h attention to the right. Romel Byrd(R)(M) IMG DIAGNOSTIC IMAGING PROCE DIMITRIOS documented in this encounter Visit Diagnoses Not on filedocumented in this encounter
--- OUTSIDE RECORDS SUMMARY | 2022-03-29 08:00 | XMS_ITS | Encounter Summary ---
:1950 Author Organization [facility] Address [address] [place] [address] Care Team Providers Name Role Phone Unavailable Primary Care Provider Unavailable Encounter Details Date Type Department Care Team Description 07/23/2010 Hospital Encounter HX [facility] Tamika Camejo M.D. [address] [place] [phone] (Wo rk) Social History Tobacco [...] How often do you attend alevism or druze services? 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 - 07/23/2010 12:00 AM CDT [id number] CHIEF COMPLAINT/REASON FOR VISIT Surgical followup. HISTORY OF PRESENT ILLNESS Mr. Salazar returns today for followup after his recent bladder biopsies. 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 Recent cystoscopy in the office was negative, but urine cytology was suspicious but not diagnostic for recurrent cancer. His urothelial FISH studies were negative. Cystoscopy was repeated in the operating room and there was a suspicious area which was biopsied. Random bladder biopsies were also performed. All biopsies were negative. There were some chronic cystitis related changes, but no cancer or carcinoma in situ. The patient has done very well for the past week. He is looking forward to having the catheter removed. CURRENT MEDICATIONS Post-visit Medication Reconciliation Please see [facility] electronic medical record. ALLERGIES See [facility] electronic medical record. SYSTEMS REVIEW As noted above, otherwise unchanged. VITAL SIGNS Per [facility] electronic medical record. IMPRESSION/REPORT/PLAN 1. History of transitional cell carcinoma of the urinary bladder, no pathological evidence of recurrent disease. PLAN Continue maintenance therapy with BCG. He will start this in two weeks. We will plan on repeating an office based cystoscopy in approximately two and half to three months. /nmd Signed Tamika Camejo M.D. Urology Electronically Signed By: TAMIKA CAMEJO MD On: 07/26/2010 08:35 Source: [facility] MHSDOLBEYNONRADSYS Document Id: [id number] documented in this encounter Miscellaneous Notes Miscellaneous - Tamika Camejo M.D. - 07/23/2010 11:49 AM CDT Ambulatory Patient Summary [address] [address] Visit Information Name: SEVEN SALAZAR Current Date: 07/23/2010 11:49:05 Primary Care Provider: RILEY RIVERA MD Your Medications Here is a list of your medications. It is important to take your medications as directed. Use a pillbox or chart to help remind you to take your medications. Please let your doctor or nurse know if you have problems taking your medications. Medication/Strength Dose Route Frequency Indications/Special Instructions/Comments hydrocodone-acetaminophen (Vicodin 5 mg-500 mg oral tablet) 1 to 2 tablets Oral every 6 hours as needed for Pain No more than 4,000mg acetaminophen/24hrs hydrochlorothiazide-lisinopril (hydrochlorothiazide-lisinopril 25 mg-20 mg oral tablet) [...] Active 02/19/2010 Pain in shoulder Active 03/26/2010 Your Recommendations We want to make sure [...] Diabetes and/or Vascular: LDL every 1 year 07/23/2010 Screening Colonoscopy or Flex Sig or Barium Enema or Occult Blood X3 07/23/2010 Checks for signs of cancer of the colon. Lipid Panel every 5 years Age 20-75 07/23/2010 Checks blood for good (HDL) and bad (LDL) cholesterol. Know your numbers, they are one indicator of your risk for heart attack and stroke. Vaccine: Flu every 1 year 07/23/2010 Immunization to help prevent you from getting the flu strain expected to be a problem for that year's flu season. Vaccine: Tetanus every 10 years 02/12/2010 02/10/2020 Immunization to help prevent you from getting the serious disease Tetanus (Lockjaw). Your Upcoming Appointments Date Time Location Reason Provider 08/06/2010 09:00 [facility] Bcg treatment Tamika Camejo MD 08/13/2010 09:00 [facility] bcg treatment Tamika Camejo MD 08/20/2010 09:00 [facility] bcg treatment Tamika Camejo MD Your Goals/Additional instructions: [facility] Id: [id number] Electronically signed by Conversion, [facility] Box Coverer Hand [id number] at 10/06/2016 4:43 PM CDT Miscellaneous - Tamika Camejo M.D. - 07/23/2010 11:49 AM CDT [place] [address] Visit Information Name: SEVEN SALAZAR Current Date: 07/23/2010 11:49:04 Primary Care Provider: RILEY RIVERA MD SEVEN SALAZAR has been given the following list of medications: Your Medications It is important to take your medications as directed. Use a pill box or chart to help remind you to take your medications. Please let your doctor or nurse know if you have problems taking your medications. Medication/Strength Dose Route Frequency Indications/Special Instructions/Comments hydrocodone-acetaminophen (Vicodin 5 mg-500 mg oral tablet) 1 to 2 tablets Oral every 6 hours as needed for Pain No more than 4,000mg acetaminophen/24hrs hydrochlorothiazide-lisinopril (hydrochlorothiazide-lisinopril 25 mg-20 mg oral tablet) 1 tab(s) Oral once a day (at bedtime) Cancel previous prescriptions for HCTZ and lisinopril. Additional Information: Yes - Current list of reconciled medications is provided and explained to the patient and/or family, guardian/caregiver. [facility] Document Id: [id number] Electronically signed by Conversion, [facility] Box Coverer Hand [id number] at 10/06/2016 4:43 PM CDT Miscellaneous - Prudencio Cannon, L.P.N. - 07/23/2010 10:53 AM CDT Adult Hardwood Faller Intake/History Adult Hardwood Faller Intake/History Entered On: 07/23/2010 10:56 CDT Performed On: 07/23/2010 10:53 CDT by PRUDENCIO CANNON Intake Chief Complaint: f/u results and trial voiding Temperature Core: 36.8C(Converted to: 98.2DegF) Peripheral Pulse Rate: 76/min Systolic Blood Pressure: 128mmHg Diastolic Blood Pressure: 84mmHg NIBP Mean: 99mmHg BP Location: Right upper extremity Oxygen Therapy: Bag valve mask PRUDENCIO CANNON - 07/23/2010 10:53 CDT Subjective Pain Symptoms: No PRUDENCIO CANNON - 07/23/2010 10:53 CDT Dependent Habits Tobacco Use/Currently Using: Yes Exposure to Tobacco Smoke: Patient smokes PRUDENCIO CANNON - 07/23/2010 10:53 CDT Tobacco Use Grid Type: Cigarettes Cigarette Use Packs/Day: 0.5 Last Use: today PRUDENCIO CANNON - 07/23/2010 10:53 CDT Caffeine Use Grid Caffeine Use: Current Type: Coffee, Tea Frequency: Daily Amount: 2 cup/day Last Use: today PRUDENCIO CANNON - 07/23/2010 10:53 CDT Allergies Allergies (Active) NKA Estimated Onset Date: Unspecified ; Created By: SARAI NIXON; Reaction Status: Active ; Category:Drug ; Substance: NKA ; Type: Allergy ; Updated By: SARAI NIXON; Reviewed Date: 07/23/2010 10:51 CDT Source: [facility] POWERCHART Document Id: [id number] CDT!27 documented in this encounter Plan of Treatment Upcoming Encounters Date Type Specialty Care Team Description 04/12/2022 Office Visit Cardiovascular Disease Simone Gooden AP RN, C.N.P. [address] [phone] (Wo rk) documented as of this encounter Visit Diagnoses Not on filedocumented in this encounter
--- OUTSIDE RECORDS SUMMARY | 2022-03-29 08:00 | XMS_ITS | Encounter Summary ---
:1950 Author Organization [facility] Address [address] [place] [address] Care Team Providers Name Role Phone Unavailable Primary Care Provider Unavailable Encounter Details Date Type Department Care Team Description 08/13/2010 Hospital Encounter HX [facility] Tarik Camejo M.D. [address] [place], [place] [phone] (Wo rk) Social History [...] How often do you attend presybeterian or orthodoxy services? 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 [address] [phone] (Wo rk) documented as of this encounter Visit Diagnoses Not on filedocumented in this encounter
--- OUTSIDE RECORDS SUMMARY | 2022-03-29 08:00 | XMS_ITS | Encounter Summary ---
:1950 Author Organization [facility] Address [address] [place] [address] Care Team Providers Name Role Phone Unavailable Primary Care Provider Unavailable Encounter Details Date Type Department Care Team Description 08/31/2010 Hospital Encounter HX [facility] Wendy Adams M.D. Social History Tobacco Use Types Packs/Day [...] How often do you attend jain or yarsani services? 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 - 08/31/2010 12:00 AM CDT [id number] CHIEF COMPLAINT/ REASON FOR VISIT Pain in the joints. HISTORY OF PRESENT ILLNESS This 60-year-old male patient has had problem with pain in his joints since Friday 4 days ago. Friday and Friday was really bad he could hardly get out of bed. He had pain in his knees ran low grade fever had also aching in the shoulders, elbows, hips were tender all of his joints seemed to bother him. He was worse when he got up in the morning and later in the day it has been down. He felt he might be getting gout from the hydrochlorothiazide so stopped it 12 days ago. He did not eat any unusual foods at [facility] which was 5 days ago. He had a low grade fever. He is outdoors so could be exposed to Lyme disease. Has not had uric acid as far as I can tell from looking at the records but he said last fall he had tests for her rheumatic disease. EMR record reviewed and updated. SYSTEMS REVIEW 1. Respiratory: No cough or shortness of breath. 2. Cardiovascular: No palpitation of the heart, no chest pain. 3. GI: No nausea, vomiting, diarrhea, constipation or recent change in weight. 4. : No dysuria, no hematuria. 5. All other systems reviewed and negative, except as mentioned above. PHYSICAL EXAM Patient has swollen tender knees bilaterally without redness or heat. Elbows were not bothering him today he feels like he is getting better taking Excedrin tablets IMPRESSION/REPORT/PLAN Feel the patient has arthritis and will get a CBC, sed rate Lyme test uric acid LYNN and RA test. Patient will continue using Excedrin as needed and recheck in 1 week return sooner p.r.n. SFO/clf Signed Jen Adams M.D. Family Medicine Electronically Signed By: JEN ADAMS MD On: 09/03/2010 10:52 Source: [facility] MHSDOLBEYNONRADSYS Document Id: [id number] documented in this encounter Miscellaneous Notes Miscellaneous - Jen Adams M.D. - 09/03/2010 11:01 AM CDT Results Notification From: JEN ADAMS MD To: JEN ADAMS MD Sent: 09/03/2010 11:01:54 CDT ! Show up: 09/03/2010 11:01:00 CDT Subject: Results Notification Actions: Notify patient of results Due Date/Time: 09/03/2010 11:01:00 CDT [facility] Document Id: [id number] Electronically signed by Conversion, [facility] Computer Systems Hardware Analyst [id number] at 10/06/2016 10:24 AM CDT eJn Restrepo M.D. - 08/31/2010 4:06 PM CDT Results Notification From: JEN ADAMS MD To: JEN ADAMS MD Sent: 08/31/2010 16:06:43 CDT ! Show up: 08/31/2010 16:05:00 CDT Subject: Results Notification Actions: Notify patient of results Due Date/Time: 08/31/2010 16:05:00 CDT [facility] Document Id: [id number] Electronically signed by Conversion, [facility] Computer Systems Hardware Analyst [id number] at 10/06/2016 10:24 AM CDT Jen Restrepo M.D. - 08/31/2010 2:31 PM CDT Ambulatory Patient Summary [address] [address] Visit Information Name: SEVEN SALAZAR Current Date: 08/31/2010 14:31:03 Primary Care Provider: RILEY RIVERA MD Your [...] Diabetes and/or Vascular: LDL every 1 year 08/31/2010 Screening Colonoscopy or Flex Sig or Barium Enema or Occult Blood X3 08/31/2010 Checks for signs of cancer of the colon. Lipid Panel every 5 years Age 20-75 08/31/2010 Checks blood for good (HDL) and bad (LDL) cholesterol. Know your numbers, they are one indicator of your risk for heart attack and stroke. Vaccine: Flu every 1 year 08/31/2010 Immunization to help prevent you from getting the flu strain expected to be a problem for that year's flu season. Vaccine: Tetanus every 10 years 02/12/2010 02/10/2020 Immunization to help prevent you from getting the serious disease Tetanus (Lockjaw). Your Upcoming Appointments Date Time Location Reason Provider 10/08/2010 15:00 [facility] Urology systal Nell DEWEY, Jatinder Your Goals/Additional instructions: Source: [employer] Document Id: [id number] Electronically signed by Conversion, [facility] Computer Systems Hardware Analyst [id number] at 10/06/2016 10:24 AM CDT Miscellaneous - Jen Adams M.D. - 08/31/2010 2:31 PM CDT Ambulatory Depart Summary [address] [address] Visit Information Name: SEVEN SALAZAR Current Date: 08/31/2010 14:31:02 Primary Care Provider: RILEY RIVERA MD SEVEN [...] to the patient and/or family, guardian/caregiver. Source: [employer] Document Id: [id number] Miscellaneous - Annelise Rico L.PBhaveshNBhavesh - 08/31/2010 1:54 PM CDT Adult Coverstitch Machine Operator Intake/History Adult Coverstitch Machine Operator Intake/History Entered On: 08/31/2010 13:59 CDT Performed On: 08/31/2010 13:54 CDT by ANNELISE RICO Intake Chief Complaint: For 2 days has had very achy shoulders, elbows, knees. Hips tender. All joints swollen Peripheral Pulse Rate: 84/min Respiratory Rate: 18/min Systolic Blood Pressure: 144mmHg (HI) Diastolic Blood Pressure: 80mmHg NIBP Mean: 101mmHg ANNELISE RICO - 08/31/2010 13:54 CDT Subjective Pain Symptoms: Yes ANNELISE RICO ADY - 08/31/2010 13:54 CDT Pain Pain Assessment Grid Pain 1 Location: Generalized Laterality: Bilateral Intensity: 5 Time Pattern: Intermittent Onset: Sudden Quality: Sharp Pain Radiation: No Aggravating Factors: Movement ANNELISE RICO - 08/31/2010 13:54 CDT Dependent Habits Tobacco Use/Currently Using: Yes Exposure to Tobacco Smoke: Patient smokes ANNELISE RICO - 08/31/2010 13:54 CDT Tobacco Use Grid Type: Cigarettes Cigarette Use Packs/Day: 0.5 Last Use: today RICOANNELISE MCKEON - 08/31/2010 13:54 CDT Caffeine Use Grid Caffeine Use: Current Type: Coffee, Tea Frequency: Daily Amount: 2 cup/day Last Use: today ANNELISE RICO - 08/31/2010 13:54 CDT Allergy Allergies (Active) NKA Estimated Onset Date: Unspecified ; Created By: SARAI NIXON; Reaction Status: Active ; Category:Drug ; Substance: NKA ; Type: Allergy ; Updated By: SARAI NIXON; Reviewed Date: 08/20/2010 9:42 CDT Source: [facility] POWERCHART Document Id: [id number] CDT!36 documented in this encounter Plan of Treatment Upcoming Encounters Date Type Specialty Care Team Description 04/12/2022 Office Visit Cardiovascular Disease Simone Gooden AP RN, C.N.P. [address] [phone] (Wo rk) documented as of this encounter Visit Diagnoses Not on filedocumented in this encounter
--- OUTSIDE RECORDS SUMMARY | 2022-03-29 08:00 | XMS_ITS | Encounter Summary ---
:1950 Author Organization [facility] Address [address] [place] [address] Care Team Providers Name Role Phone Unavailable Primary Care Provider Unavailable Encounter Details Date Type Department Care Team Description 05/07/2010 Hospital Encounter HX [facility] Jatinder Camejo M.D. [address] [place] [address] (Wo rk) Social History Tobacco [...] How often do you attend adventism or hindu services? 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 - 05/07/2010 9:19 AM CST Adult Grinder Set Up Operator Gear Tool Intake/History Adult Grinder Set Up Operator Gear Tool Intake/History Entered On: 05/07/2010 9:24 TRANSMISSION OPERATOR Performed On: 05/07/2010 9:19 TRANSMISSION OPERATOR by PRUDENCIO CANNON Intake Chief Complaint: # 6 OF 6 LUI/BCG Temperature Core: 36.8C(Converted to: 98.2DegF) Peripheral Pulse Rate: 68/min Systolic Blood Pressure: 136mmHg Diastolic Blood Pressure: 84mmHg NIBP Mean: 101mmHg BP Location: Left upper extremity IVAN PRUDENCIO Maguire 05/07/2010 9:19 TRANSMISSION OPERATOR Subjective Pain Symptoms: Yes IVAN PRUDENCIO Maguire 05/07/2010 9:19 TRANSMISSION OPERATOR Pain Pain Assessment Grid Pain 1 Location: Knee (Comment: RIGHT [IVAN PRUDENCIO Maguire 05/07/2010 9:19 TRANSMISSION OPERATOR] ) Laterality: Right Time Pattern: Chronic Quality: Aching IVAN PRUDENCIO Maguire 05/07/2010 9:19 TRANSMISSION OPERATOR Dependent Habits Tobacco Use/Currently Using: Yes Exposure to Tobacco Smoke: Patient smokes IVAN PRUDENCIO Maguire 05/07/2010 9:19 TRANSMISSION OPERATOR Tobacco Use Grid Cigarette Use Packs/Day: 0.7 Last Use: today IVAN PRUDENCIO Maguire 05/07/2010 9:19 TRANSMISSION OPERATOR Caffeine Use Grid Caffeine Use: Current Type: Coffee, Tea Frequency: Daily Amount: 2 cup/day Last Use: today IVAN PRUDENCIO Maguire 05/07/2010 9:19 TRANSMISSION OPERATOR Allergies Allergies (Active) NKA Estimated Onset Date: Unspecified ; Created By: SARAI NIXON; Reaction Status: Active ; Category:Drug ; Substance: NKA ; Type: Allergy ; Updated By: SARAI NIXON; Reviewed Date: 05/07/2010 9:15 TRANSMISSION OPERATOR Source: [facility] POWERCHART Document Id: [id number] TRANSMISSION OPERATOR!32 SMISSION OPERATOR documented in this encounter Plan of Treatment Upcoming Encounters Date Type Specialty Care Team Description 04/12/2022 Office Visit Cardiovascular Disease Simone Gooden AP RN, C.N.P. [address] [phone] (Wo rk) documented as of this encounter Visit Diagnoses Not on filedocumented in this encounter
--- OUTSIDE RECORDS SUMMARY | 2022-03-29 08:00 | XMS_ITS | Encounter Summary ---
:1950 Author Organization [facility] Address [address] [place] [address] Care Team Providers Name Role Phone Unavailable Primary Care Provider Unavailable Encounter Details Date Type Department Care Team Description 03/23/2010 Hospital Encounter HX [facility] Leta Sanchez M.D. [address] [facility] [address] [phone] Social History Tobacco Use Types Packs/Day [...] How often do you attend temple or yarsani services? 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 [address] [phone] (Wo rk) documented as of this encounter Visit Diagnoses Not on filedocumented in this encounter
--- OUTSIDE RECORDS SUMMARY | 2022-03-29 08:00 | XMS_ITS | Encounter Summary ---
:1950 Author Organization [facility] Address [address] [place] [address] Care Team Providers Name Role Phone Unavailable Primary Care Provider Unavailable Encounter Details Date Type Department Care Team Description 03/27/[address] [facility] FB Kumar Pink M.D. [address] [facility], [address] [place] [address] (Wo rk) Social History Tobacco [...] week 04/16/2019 How often do you attend mormonism or yarsani services? Never 04/16/2019 Do you belong to any clubs or organizations such as mormonism N o 04/16/2019 groups, unions, fraternal or [...] at Date Recorded Male 06/28/2019 8:47 AM SENSITIZER documented as of this encounter Plan of Treatment Upcoming Encounters Date Type Specialty Care Team Description 04/12/2022 Office Visit Cardiovascular Disease Simone Gooden AP RN, C.N.P. [address] [phone] (Wo rk) documented as of this encounter Procedures Procedure Name Priority Date/Time Associated Diagnosis Comme nts DX SHOULDER LEFT 2+ Routine 03/27/2010 10:35 AM R esults for this VIEWS SENSITIZER procedure are i n the results section. documented in this encounter Results DX Shoulder Left 2+ Views (03/27/2010 10:35 AM SENSITIZER) Anatomical Region Laterality Modality Upper Extremity, Shoulder Left Radiographic I maging Specimen (Source) Anatomical Collection Method Collection Time Re ceived Time Location / / Volume Laterality 03/27/2010 10:35 AM SENSITIZER Addenda Addendum by Provider, Javid Samson o lindy 03/27/2010 10:35 AM SENSITIZER RAD^^^OW XR Shoulder Left 2 or more views 03/27/2010 10:35:00 Impressions 03/27/2010 11:00 AM SENSITIZER Advanced degenerative osteoarthritis of the glenohumeral joint. Narrative 03/27/2010 11:00 AM SENSITIZER HISTORY: Pain. ?? COMPARISON: None. ?? FINDINGS: Soft tissues are unremarkable. No fractures or destructive lesions are identified. There is advance d degenerative osteoarthritis of the glenohumeral joint with joint spa ce narrowing, flattening of the humeral head and glenoid, subchondra l sclerosis, and degenerative spurring. The acromioclavicular joint is unremarkable. ?? Procedure Note Lenny Hickey Jr., M.D. / Mali Roblero M.D. - 09/27/2016 HISTORY: Pain. COMPARISON: None. FINDINGS: Soft tissues are unremarkable. No fractures or destructive lesions are identified. There is advance d degenerative osteoarthritis of the glenohumeral joint with joint spa ce narrowing, flattening of the humeral head and glenoid, subchondra l sclerosis, and degenerative spurring. The acromioclavicular joint is unremarkable. IMPRESSION: Advanced degenerative osteoa rthritis of the glenohumeral joint. Romel Byrd(Denny)(M) IMG DIAGNOSTIC IMAGING PROCE DURES documented in this encounter Visit Diagnoses Not on filedocumented in this encounter
--- OUTSIDE RECORDS SUMMARY | 2022-03-29 08:00 | XMS_ITS | Encounter Summary ---
:1950 Author Organization [facility] Address [address] [place] [address] Care Team Providers Name Role Phone Unavailable Primary Care Provider Unavailable Encounter Details Date Type Department Care Team Description 03/19/2010 Hospital Encounter [facility]X [facility] Jatinder Camejo M.D. [address] [place] [address] (Wo rk) Social History Tobacco [...] How often do you attend islam or holiness services? Never 04/16/2019 Do you [...] Date Recorded Male 06/28/2019 8:47 AM MANAGER POST documented as of this encounter Miscellaneous Notes Miscellaneous - Prudencio Cannon, L.P.N. - 03/19/2010 9:09 AM CST Adult Medical Apparatus Model Maker Intake/History Adult Medical Apparatus Model Maker Intake/History Entered On: 03/19/2010 9:12 MANAGER POST Performed On: 03/19/2010 9:09 MANAGER POST by PRUDENCIO CANNON Intake Chief Complaint: #1 of 6 leny treatments Temperature Core: 37.2C(Converted to: 99.0DegF) Peripheral Pulse Rate: 88/min Systolic Blood Pressure: 138mmHg Diastolic Blood Pressure: 66mmHg NIBP Mean: 90mmHg BP Location: Left upper extremity PRUDENCIO CANNON - 03/19/2010 9:09 MANAGER POST Subjective Pain Symptoms: No PRUDENCIO CANNON - 03/19/2010 9:09 MANAGER POST Dependent Habits Tobacco Use/Currently Using: Yes Exposure to Tobacco Smoke: Patient smokes PRUDENCIO CANNON 03/19/2010 9:09 MANAGER POST Tobacco Use Grid Type: Cigarettes Cigarette Use Packs/Day: 1.0 Last Use: today PRUDENCIO CANNON - 03/19/2010 9:09 MANAGER POST Caffeine Use Grid Caffeine Use: Current Type: Coffee, Tea Frequency: Daily Amount: 2 cup/day Last Use: today PRUDENCIO CANNON - 03/19/2010 9:09 MANAGER POST Allergies Allergies (Active) NKA Estimated Onset Date: Unspecified ; Created By: SARAI NIXNO; Reaction Status: Active ; Category:Drug ; Substance: NKA ; Type: Allergy ; Updated By: SARAI NIXON; Reviewed Date: 03/19/2010 9:09 MANAGER POST [facility] Document Id: [id number] MANAGER POST!26 GER POST documented in this encounter Plan of Treatment Upcoming Encounters Date Type Specialty Care Team Description 04/12/2022 Office Visit Cardiovascular Disease Simone Gooden AP RN, C.N.P. [address] [phone] (Wo rk) documented as of this encounter Visit Diagnoses Not on filedocumented in this encounter
--- OUTSIDE RECORDS SUMMARY | 2022-03-29 08:00 | XMS_ITS | Encounter Summary ---
:1950 Author Organization [facility] Address [address] [place] [address] Care Team Providers Name Role Phone Unavailable Primary Care Provider Unavailable Encounter Details Date Type Department Care Team Description 03/26/2010 Hospital Encounter HX [facility] Jatinder Camejo M.D. [address] [place] [phone] (Wo rk) Social History Tobacco [...] often do you attend roman catholic or taoist services? Never 04/16/2019 Do [...] at Date Recorded Male 06/28/2019 8:47 AM GRAPHIC TECHNICIAN documented as of this encounter Miscellaneous Notes Miscellaneous - Prudencio Cannon, L.P.N. - 03/26/2010 9:01 AM CST Adult Body Specialist Intake/History Adult Body Specialist Intake/History Entered On: 03/26/2010 9:05 GRAPHIC TECHNICIAN Performed On: 03/26/2010 9:01 GRAPHIC TECHNICIAN by PRUDENCIO CANNON Intake Chief Complaint: #2 of 6 [place] BCG treatments Temperature Core: 36.7C(Converted to: 98.1DegF) Peripheral Pulse Rate: 68/min Systolic Blood Pressure: 112mmHg Diastolic Blood Pressure: 76mmHg NIBP Mean: 88mmHg BP Location: Left upper extremity Actual Weight: 99.400kg Actual Weight Conversion to Pounds: 218.680lb Dosing Weight Clinic: 99.40kg PRUDENCIO CANNON 03/26/2010 9:01 GRAPHIC TECHNICIAN Subjective Pain Symptoms: No PRUDENCIO CANNON 03/26/2010 9:01 GRAPHIC TECHNICIAN Dependent Habits Tobacco Use/Currently Using: Yes Exposure to Tobacco Smoke: Patient smokes PRUDENCIO CANNON 03/26/2010 9:01 GRAPHIC TECHNICIAN Tobacco Use Grid Type: Cigarettes Cigarette Use Packs/Day: 0.7 Last Use: today PRUDENCIO CANNON 03/26/2010 9:01 GRAPHIC TECHNICIAN Alcohol Use: Yes PRUDENCIO CANNON 03/26/2010 9:01 GRAPHIC TECHNICIAN Caffeine Use Grid Caffeine Use: Current Type: Coffee, Tea Frequency: Daily Amount: 2 cup/day Last Use: today PRUDENCIO CANNON 03/26/2010 9:01 GRAPHIC TECHNICIAN Allergies Allergies (Active) NKA Estimated Onset Date: Unspecified ; Created By: SARAI NIXON; Reaction Status: Active ; Category:Drug ; Substance: NKA ; Type: Allergy ; Updated By: SARAI NIXON; Reviewed Date: 03/26/2010 9:01 GRAPHIC TECHNICIAN [facility]: [facility] QuestCHART Document Id: [id number] GRAPHIC TECHNICIAN!30 HIC TECHNICIAN documented in this encounter Plan of Treatment Upcoming Encounters Date Type Specialty Care Team Description 04/12/2022 Office Visit Cardiovascular Disease Simone Gooden AP RN, C.N.P. [address] [phone] (Wo rk) documented as of this encounter Visit Diagnoses Not on filedocumented in this encounter
--- OUTSIDE RECORDS SUMMARY | 2022-03-29 08:00 | XMS_ITS | Encounter Summary ---
:1950 Author Organization [facility] Address [address] [place] [address] Care Team Providers Name Role Phone Unavailable Primary Care Provider Unavailable Encounter Details Date Type Department Care Team Description 04/02/2010 Hospital Encounter HX [facility] LAB Tarik Camejo M.D. [address] [place], [place] [phone] (Wo rk) Social History [...] How often do you attend uatsdin or jew services? Never 04/16/2019 Do you [...] at Date Recorded Male 06/28/2019 8:47 AM SILK SCREEN ETCHER documented as of this encounter Plan of Treatment Upcoming Encounters Date Type Specialty Care Team Description 04/12/2022 Office Visit Cardiovascular Disease Simone Gooden AP RN, C.N.P. [address] [phone] (Wo rk) documented as of this encounter Visit Diagnoses Not on filedocumented in this encounter
--- OUTSIDE RECORDS SUMMARY | 2022-03-29 08:00 | XMS_ITS | Encounter Summary ---
:1950 Author Organization [facility] [place] [facility] Address [address] [place] [address] Care Team Providers Name Role Phone Unavailable Primary Care Provider Unavailable Encounter Details Date Type Department Care Team Description 04/02/2010 Hospital Encounter [facility]X [facility] SURGEON Cristian [...] How often do you attend jewish or adventism services? Never 04/16/2019 Do you [...] at Date Recorded Male 06/28/2019 8:47 AM MANAGEMENT DEVELOPMENT SPECIALIST documented as of this encounter Progress Notes Ivan Vazquez M.D. - 04/02/2010 12:00 AM CST [id number] IMPRESSION/REPORT/PLAN He will return in two weeks for a recheck. CHIEF COMPLAINT/REASON FOR VISIT Followup after excision of lipoma, right flank. HISTORY OF PRESENT ILLNESS The patient returns today for followup after excision of an approximately 8 to 9 centimeter in diameter lipoma from his right flank on 02/19/2010. He developed a hematoma after surgery and this has been getting smaller. About two weeks ago it started to drain. He had some serosanguineous drainage from the wound. It continues to drain some. He keeps it covered. PHYSICAL EXAM There is no evidence of infection. The wound is open along the incision line a couple of centimeters. I placed some Bacitracin ointment and a dressing today. He is cleaning the wound with peroxide every day. I told him it might be best if he kept some Bacitracin ointment on the area. RRB/nmd Signed Ivan Vazquez M.D. General Surgery Electronically Signed By:IVAN VAZQUEZ MD On 04/10/2010 12:52 PM Source: [facility] MHSDOLBEYNONRADSYS Document Id: [id number] GEMENT DEVELOPMENT SPECIALIST documented in this encounter Miscellaneous Notes Miscellaneous - Claude Alfaro L.P.NBhavesh - 04/02/2010 2:14 PM CST Ambulatory Vitals Height Weight Ambulatory Vitals Height Weight Entered On: 04/02/2010 14:14 MANAGEMENT DEVELOPMENT SPECIALIST Performed On: 04/02/2010 14:14 MANAGEMENT DEVELOPMENT SPECIALIST by CLAUDE ALFARO LPN Vitals/Ht/Wt Systolic Blood Pressure: 130mmHg Diastolic Blood Pressure: 80mmHg NIBP Mean: 97mmHg BP Location: Right upper extremity CLAUDE ALFARO LPN - 04/02/2010 14:14 MANAGEMENT DEVELOPMENT SPECIALIST Source: [facility] POWERCHART Document Id: [id number] MANAGEMENT DEVELOPMENT SPECIALIST!6 GEMENT DEVELOPMENT SPECIALIST Miscellaneous - Claude Alfaro L.P.NBhavesh - 04/02/2010 2:13 PM CST Adult It Technician Intake/History Adult It Technician Intake/History Entered On: 04/02/2010 14:14 MANAGEMENT DEVELOPMENT SPECIALIST Performed On: 04/02/2010 14:13 MANAGEMENT DEVELOPMENT SPECIALIST by CLAUDE ALFARO LPN Intake Chief Complaint: post op Temperature Core: 36.8C(Converted to: 98.2DegF) Peripheral Pulse Rate: 80/min Systolic Blood Pressure: 140mmHg Diastolic Blood Pressure: 84mmHg NIBP Mean: 103mmHg BP Location: Right upper extremity Actual Weight: 101.100kg Actual Weight Conversion to Pounds: 222.420lb Weight Source: Standing scale Dosing Weight Clinic: 101.10kg CLAUDE ALFARO [facility] - 04/02/2010 14:13 MANAGEMENT DEVELOPMENT SPECIALIST Subjective Pain Symptoms: No YUE CLAUDE A [facility] 04/02/2010 14:13 MANAGEMENT DEVELOPMENT SPECIALIST Dependent Habits Tobacco Use/Currently Using: Yes Exposure to Tobacco Smoke: Patient smokes CLAUDE ALFARO [facility] 04/02/2010 14:13 MANAGEMENT DEVELOPMENT SPECIALIST Tobacco Use Grid Type: Cigarettes Cigarette Use Packs/Day: 0.7 Last Use: today YUE CLAUDE A [facility] 04/02/2010 14:13 MANAGEMENT DEVELOPMENT SPECIALIST Caffeine Use Grid Caffeine Use: Current Type: Coffee, Tea Frequency: Daily Amount: 2 cup/day Last Use: today YUE CLAUDE A [facility] 04/02/2010 14:13 MANAGEMENT DEVELOPMENT SPECIALIST Allergies Allergies (Active) NKA Estimated Onset Date: Unspecified ; Created By: SARAI NIXON; Reaction Status: Active ; Category:Drug ; Substance: NKA ; Type: Allergy ; Updated By: SARAI NIXON; Reviewed Date: 04/02/2010 9:02 MANAGEMENT DEVELOPMENT SPECIALIST Source: [facility] EyeVerifyCHART Document Id: [id number] MANAGEMENT DEVELOPMENT SPECIALIST!30 GEMENT DEVELOPMENT SPECIALIST documented in this encounter Plan of Treatment Upcoming Encounters Date Type Specialty Care Team Description 04/12/2022 Office Visit Cardiovascular Disease Simone Gooden AP RN, C.N.P. [address] [phone] (Wo rk) documented as of this encounter Visit Diagnoses Not on filedocumented in this encounter
--- OUTSIDE RECORDS SUMMARY | 2022-03-29 08:00 | XMS_ITS | Encounter Summary ---
:1950 Author Organization [facility] Address [address] [place] [address] Care Team Providers Name Role Phone Unavailable Primary Care Provider Unavailable Encounter Details Date Type Department Care Team Description 03/26/2010 Hospital Encounter HX [facility] Tarik Camejo M.D. [address] [place], [place] [phone] (Wo rk) Social History [...] How often do you attend presybeterian or oriental orthodox services? 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 [address] [phone] (Wo rk) documented as of this encounter Visit Diagnoses Not on filedocumented in this encounter
--- OUTSIDE RECORDS SUMMARY | 2022-03-29 08:00 | XMS_ITS | Encounter Summary ---
:1950 Author Organization [facility] Address [address] [place] [address] Care Team Providers Name Role Phone Unavailable Primary Care Provider Unavailable Encounter Details Date Type Department Care Team Description 07/02/2010 Hospital Encounter [facility]X [facility] Tamika Camejo M.D. [address] [place] [address] (Wo rk) Social History Tobacco [...] How often do you attend restoration or buddhist services? 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 - 07/02/2010 12:00 AM CST [id number] PROCEDURE Cystoscopy INDICATION Bladder cancer. This is a 60-year-old male who three months ago underwent transurethral resection of a urinary bladder tumor which was grade 1 of 3. He has completed six weeks of induction therapy with intravesical BCG. He remains asymptomatic at this time. INSTRUMENT Storz flexible cystourethroscope ANESTHESIA 2% aqueous [...] centimeters. Lateral lobes: Lateral lobe hypertrophy with visual obstruction. Middle lobe: Absent. Bladder neck: Normal. Bladder: Residual urine: Minimal. Ureteral orifices: Singular bilaterally, normal position on the trigone, slit-like in configuration and with clear efflux of urine noted bilaterally. Trabeculation: Mild. Tumors: No stones, foreign bodies or exophytic lesions are identified in the bladder. No suggestion of carcinoma in situ based on cystoscopy. There are some BCG related inflammatory changes. IMPRESSION 1. History of transitional cell carcinoma of the urinary bladder, no cystoscopic evidence of recurrent disease. RECOMMENDATIONS Send urine for cytology and FISH studies. Provided these are normal, start maintenance therapy with intravesical BCG. He will receive three treatments within the next three months, these will be given three weeks in a row. Repeat cystoscopy in three months. Clearly, if the urine tests are abnormal, we will need to proceed with biopsies of the bladder. The procedure was well tolerated by the patient. He was discharged from the office in satisfactory condition. Post-cystoscopy instructions were reviewed with him. /nmd Signed Tamika Camejo M.D. Urology Electronically Signed By: TAMIKA CAMEJO MD On: 07/02/2010 02:45 Source: [facility] MHSDOLBEYNONRADSYS Document Id: [id number] AL TECHNICIAN documented in this encounter Miscellaneous Notes Miscellaneous - Tamika Camejo M.D. - 07/05/2010 8:14 AM CST Results Notification Document Contains Addenda Addendum by SHERLYN HOFFMAN on 05 July 2010 13:57:18 SIGNAL TECHNICIAN From: SHERLYN HOFFMAN To: TAMIKA CAMEJO MD; Sent: 07/05/2010 13:57:18 SIGNAL TECHNICIAN Subject: RE: Results Notification Pt notified and is scheduled at [facility] 07/09 @ 10am. Addendum by ROBINSON COOK on 05 July 2010 09:12:55 SIGNAL TECHNICIAN [facility]. From: TAMIKA CAMEJO MD To: ROBINSON COOK KELLY E Sent: 07/05/2010 08:14:17 SIGNAL TECHNICIAN ! Show up: 07/05/2010 08:07:00 SIGNAL TECHNICIAN Subject: Results Notification Actions: Notify patient of results Due Date/Time: 07/05/2010 08:07:00 SIGNAL TECHNICIAN Source: [facility] AvvenuCHART Document Id: [id number] Electronically signed by Rivka [facility] Supervisor Winding Department [id number] at 10/06/2016 10:52 AM CDT Miscellaneous - Tamika Camejo M.D. - 07/02/2010 11:42 AM CST [place] [address] Visit Information Name: SEVEN SALAZAR Current Date: 07/02/2010 11:42:37 Primary Care Provider: RILEY RIVERA MD Your Medications Here is a list of your medications. It is important to take your medications as directed. Use a pillbox or chart to help remind you to take your medications. Please let your doctor or nurse know if you have problems taking your medications. Medication/Strength Dose Route Frequency Indications/Special Instructions/Comments hydrochlorothiazide-lisinopril (hydrochlorothiazide-lisinopril 25 mg-20 mg oral tablet) 1 tab(s) Oral once a day (in the morning) Cancel previous prescriptions for HCTZ and lisinopril. [...] Diabetes and/or Vascular: LDL every 1 year 07/02/2010 Screening Colonoscopy or Flex Sig or Barium Enema or Occult Blood X3 07/02/2010 Checks for signs of cancer of the colon. Lipid Panel every 5 years Age 20-75 07/02/2010 Checks blood for good (HDL) and bad (LDL) cholesterol. Know your numbers, they are one indicator of your risk for heart attack and stroke. Vaccine: Flu every 1 year 07/02/2010 Immunization to help prevent you from getting the flu strain expected to be a problem for that year's flu season. Vaccine: Tetanus every 10 years 02/12/2010 02/10/2020 Immunization to help prevent you from getting the serious disease Tetanus (Lockjaw). Your Upcoming Appointments Date Time Location Reason Provider No Appointments found Your Goals/Additional instructions: Source: [facility] POWERCHART Document Id: [id number] Electronically signed by Conversion, [facility] Supervisor Winding Department [id number] at 10/06/2016 10:52 AM CDT Mook - Tamika Camejo M.D. - 07/02/2010 11:42 AM CST Ambulatory Depart Summary [address] [address] Visit Information Name: SEVEN SALAZAR Current Date: 07/02/2010 11:42:36 Primary Care Provider: RILEY RIVERA MD SEVEN SALAZAR has been given the following list of medications: Your Medications It is important to take your medications as directed. Use a pill box or chart to help remind you to take your medications. Please let your doctor or nurse know if you have problems taking your medications. Medication/Strength Dose Route Frequency Indications/Special Instructions/Comments hydrochlorothiazide-lisinopril (hydrochlorothiazide-lisinopril 25 mg-20 mg oral tablet) 1 tab(s) Oral once a day (in the morning) Cancel previous prescriptions for HCTZ and lisinopril. Additional Information: Yes - Current list of reconciled medications is provided and explained to the patient and/or family, guardian/caregiver. Source: [facility] POWERCHART Document Id: [id number] Electronically signed by Conversion, [facility] Supervisor Winding Department [id number] at 10/06/2016 10:52 AM CDT Mook - Prudencio Cannon, L.P.N. - 07/02/2010 10:50 AM CST Adult Md Allergy Immunology Intake/History Adult Md Allergy Immunology Intake/History Entered On: 07/02/2010 10:53 SIGNAL TECHNICIAN Performed On: 07/02/2010 10:50 SIGNAL TECHNICIAN by PRUDENCIO CANNON Intake Chief Complaint: F/u scope Temperature Core: 36.6C(Converted to: 97.9DegF) Peripheral Pulse Rate: 68/min Systolic Blood Pressure: 134mmHg Diastolic Blood Pressure: 84mmHg NIBP Mean: 101mmHg BP Location: Right upper extremity PRUDENCIO CANNON - 07/02/2010 10:50 SIGNAL TECHNICIAN Subjective Pain Symptoms: No PRUDENCIO CANNON Andrez - 07/02/2010 10:50 SIGNAL TECHNICIAN Dependent Habits Tobacco Use/Currently Using: Yes Exposure to Tobacco Smoke: Patient smokes ROSALVA CANNONDALJIT Maguire - 07/02/2010 10:50 SIGNAL TECHNICIAN Tobacco Use Grid Type: Cigarettes Cigarette Use Packs/Day: 0.7 Last Use: today ROSALVA CANNONDALJIT Maguire - 07/02/2010 10:50 SIGNAL TECHNICIAN Alcohol Use: No ROSALVA CANNONDALJIT Maguire - 07/02/2010 10:50 SIGNAL TECHNICIAN Caffeine Use Grid Caffeine Use: Current Type: Coffee, Tea Frequency: Daily Amount: 2 cup/day Last Use: today ROSALVA CANNONDALJIT Maguire - 07/02/2010 10:50 SIGNAL TECHNICIAN Allergies Allergies (Active) NKA Estimated Onset Date: Unspecified ; Created By: SARAI NIXON; Reaction Status: Active ; Category:Drug ; Substance: NKA ; Type: Allergy ; Updated By: SARAI NIXON; Reviewed Date: 07/02/2010 10:49 SIGNAL TECHNICIAN Source: [facility] POWERCHART Document Id: [id number] SIGNAL TECHNICIAN!27 AL TECHNICIAN documented in this encounter Plan of Treatment Upcoming Encounters Date Type Specialty Care Team Description 04/12/2022 Office Visit Cardiovascular Disease Simone Gooden AP RN, C.N.P. [address] [phone] (Wo rk) documented as of this encounter Procedures Procedure Name Priority Date/Time Associated Diagnosis Comme nts CYTOLOGY NON-CONTROL CLERK SUBASSEMBLY Routine 07/02/2010 12:51 PM Resu lts for this SIGNAL TECHNICIAN procedure are i n the results section. documented in this encounter Results Pathology Non-CONTROL CLERK SUBASSEMBLY Cytology (07/02/2010 12:51 PM SIGNAL TECHNICIAN) [facility] Method Time Signature HX Spec See Comment POWERCHART [facility] Comment: RESULT: A. ??Urine, NOS: ??Received 80cc of yellow urine in PreservCyt Test Performed by: [facility] Dpt of Lab Med and Pathology [address] [place] [id number] Hand Model: Cem cali III, M.D. Specimen (Source) Anatomical Collection Method Collection Time Re ceived Time Location / / Volume Laterality Urine 07/02/2010 12:51 PM SIGNAL TECHNICIAN Tamika Camejo M.D. LAB SURG PATH ORDERABLES Performing Organization Address City/State/ZIP Code Phon e Number POWERCHART documented in this encounter Visit Diagnoses Not on filedocumented in this encounter
--- OUTSIDE RECORDS SUMMARY | 2022-03-29 08:00 | XMS_ITS | Encounter Summary ---
:1950 Author Organization [facility] Address [address] [place] [address] Care Team Providers Name Role Phone Unavailable Primary Care Provider Unavailable Encounter Details Date Type Department Care Team Description 03/19/2010 Hospital Encounter HX [facility] LAB Tarik Camejo M.D. [address] [place], [place] [phone] (Wo rk) Social History [...] How often do you attend bahai or yazidism services? 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 [address] [phone] (Wo rk) documented as of this encounter Visit Diagnoses Not on filedocumented in this encounter
--- OUTSIDE RECORDS SUMMARY | 2022-03-29 08:00 | XMS_ITS | Encounter Summary ---
:1950 Author Organization [facility] Address [address] [place] [address] Care Team Providers Name Role Phone Unavailable Primary Care Provider Unavailable Encounter Details Date Type Department Care Team Description 04/09/2010 Hospital Encounter [facility]X [facility] Jatinder Camejo M.D. [address] [place] [phone] (Wo rk) Social History Tobacco [...] How often do you attend mandaen or samaritan services? 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 - 04/09/2010 9:25 AM CST Adult Clinical Office Technician Intake/History Adult Clinical Office Technician Intake/History Entered On: 04/09/2010 9:28 DYE LINE OPERATOR Performed On: 04/09/2010 9:25 DYE LINE OPERATOR by PRUDENCIO CANNON Intake Chief Complaint: 4 of 6 leny treatment Temperature Core: 36.6C(Converted to: 97.9DegF) Peripheral Pulse Rate: 72/min Systolic Blood Pressure: 122mmHg Diastolic Blood Pressure: 86mmHg NIBP Mean: 98mmHg BP Location: Left upper extremity PRUDENCIO CANNON - 04/09/2010 9:25 DYE LINE OPERATOR Subjective Pain Symptoms: No PRUDENCIO CANNON - 04/09/2010 9:25 DYE LINE OPERATOR Dependent Habits Tobacco Use/Currently Using: Yes Exposure to Tobacco Smoke: Patient smokes PRUDENCIO CANNON - 04/09/2010 9:25 DYE LINE OPERATOR Tobacco Use Grid Type: Cigarettes Cigarette Use Packs/Day: 0.7 Last Use: today PRUDENCIO CANNON - 04/09/2010 9:25 DYE LINE OPERATOR Caffeine Use Grid Caffeine Use: Current Type: Coffee, Tea Frequency: Daily Amount: 2 cup/day Last Use: today PRUDENCIO CANNON - 04/09/2010 9:25 DYE LINE OPERATOR Allergies Allergies (Active) NKA Estimated Onset Date: Unspecified ; Created By: SARAI NIXON; Reaction Status: Active ; Category:Drug ; Substance: NKA ; Type: Allergy ; Updated By: SARAI NIXON; Reviewed Date: 04/09/2010 9:25 DYE LINE OPERATOR [facility]jur Document Id: [id number] DYE LINE OPERATOR!26 LINE OPERATOR documented in this encounter Plan of Treatment Upcoming Encounters Date Type Specialty Care Team Description 04/12/2022 Office Visit Cardiovascular Disease Simone Gooden AP RN, C.N.P. [address] [phone] (Wo rk) documented as of this encounter Visit Diagnoses Not on filedocumented in this encounter
--- OUTSIDE RECORDS SUMMARY | 2022-03-29 08:00 | XMS_ITS | Encounter Summary ---
:1950 Author Organization [facility] Address [address] [place] [address] Care Team Providers Name Role Phone Unavailable Primary Care Provider Unavailable Encounter Details Date Type Department Care Team Description 04/09/2010 Hospital Encounter HX [facility] Kumar King M.D. [address] [place] [address], [address] [place] [address] (Wo rk) Social History Tobacco [...] How often do you attend denominational or orthodoxy services? 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 - 04/09/2010 12:00 AM CST [id number] CHIEF COMPLAINT / REASON FOR VISIT Follow-up neck pain, right greater left shoulder pain, right hip pain and right knee pain. HISTORY OF PRESENT ILLNESS Mr. Salazar returns today in followup. He had an MRI performed of his cervical spine on April 02 and I reviewed the images with him in detail today. Significant findings include disc bulging and osteophyte ridging at C5-6 resulting in mild to moderate central canal narrowing and mild to moderate bilateral foraminal narrowing. At see C6-7, there is disc bulging and osteophytic ridging with mild to moderate central canal narrowing and contacting the ventral surface of cord at C5-C6 level. There is also moderate right and left foraminal narrowing. There is no areas of cervical spinal cord signal abnormality seen. There is no cervical spinal cord compression. There is a probable lipoma seen in the posterior subcutaneous tissues extending from C6-7 through T2 measuring approximately 6 x 2 cm. I also reviewed Mr. Dunaway left shoulder x-rays with him which showed severe degenerative changes of the glenohumeral joint. His right knee x-rays showed mild narrowing of the medial joint compartment with evidence of chondrocalcinosis about the medial and lateral compartments. His right hip x-rays were unremarkable. Mr. Salazar reports that his symptoms are unchanged since I saw him prior to his imaging studies. He can continue to describe pain that is located in the right greater than left shoulder as an achy, deep discomfort. The pain continues to be worse at night when he attempts to lie his right or left side. He is also experiencing occasional tingling in the right hand and this has not worsened since I saw him previously. He also denies any new symptoms such as weakness in his upper extremities, fevers or chills. IMPRESSION/REPORT/PLAN . 1. Neck pain with a history of left C5-6 and C6-7 foraminotomy and hemilaminectomy in 1999. 2. 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 Intermittent right upper extremity pain and paresthesias 6. Right knee pain 7. Right knee DJD 8. Right hip pain 9. Lumbar spondylosis 10.ladder cancer currently undergoing intravesical BCG therapy. I had a long discussion today with Mr. Salazar and answered very appropriate questions that he had. I do feel that the majority of the pain in his right upper extremity is secondary to his severe glenohumeral degenerative changes and potential full thickness rotator cuff tear on the right. However, the paresthesias that he can experience in his right hand could be consistent with a C6 or C7 radiculopathy which would fit with the imaging findings on his cervical spine MRI. That is currently the most bothersome area for him. PLAN 1. We discussed potentially proceeding with a diagnostic as well as therapeutic right glenohumeral joint and right subacromial/subdeltoid bursa corticosteroid injections. Mr. Salazar would like to proceed with this and we will schedule this for a week after he completes his BCG therapy which would be in approximately 3 weeks. We also discussed the possibility of physical therapy and very likely will have Mr. Salazar involved in this following the corticosteroid injections. 2. He will be in contact with me prior to the scheduled procedures if he notes any worsening or worrisome symptoms which we went over in detail today. He voiced agreement and understanding with this plan. Total time 20 minutes and counseling time 15 minutes. JMP/alfredo Signed Elise King M.D. Physical Medicine & Rehabilitation CC: Leta Sanchez M.D. Internal Medicine [address] [place] [id number] Electronically Signed By:ELISE KING MD On 04/10/2010 09:30 AM Modified by:ELISE KING MD On 04/10/2010 09:30 AM Source: [facility] MHSDOLBEYNONRADSYS Document Id: [id number] ISSIONS ANALYST documented in this encounter Plan of Treatment Upcoming Encounters Date Type Specialty Care Team Description 04/12/2022 Office Visit Cardiovascular Disease Simone Gooden AP RN, C.N.P. [address] [phone] (Wo rk) documented as of this encounter Visit Diagnoses Not on filedocumented in this encounter
--- OUTSIDE RECORDS SUMMARY | 2022-03-29 08:00 | XMS_ITS | Encounter Summary ---
:1950 Author Organization [facility] Address [address] [place] [address] Care Team Providers Name Role Phone Unavailable Primary Care Provider Unavailable Encounter Details Date Type Department Care Team Description 03/26/2010 Hospital Encounter [facility]X [facility] Riley Jimenez M.D. [address] [facility], [facility] [address] [phone] Social History Tobacco Use Types Packs/Day [...] How often do you attend mosque or judaism services? 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 - 03/26/2010 12:00 AM CST [id number] IMPRESSION / REPORT / PLAN 1. Pain in the neck and back with degenerative disc disease. He will follow up with Dr. King for further evaluation and management. Currently he is taking Vicodin 5/500 mg one tablet by mouth every four hours as needed for pain. 2. Hypertension. His blood pressure is better and controlled. He will continue current medications. So far no side effects. I review basic metabolic profile done on March 23, 2010. 3. Pain in the shoulder, more on the right than the left. He is scheduled to have shoulder x-ray and he will follow up with Dr. King. 4. Tobacco use. He is not ready to quit smoking at this point. He would let me know when he is ready to quit tobacco. 5. Immunization. He declined influenza immunization today. 6. Hematoma following after lipoma excision from anterior abdominal wall. It is better and he will follow up with Dr. Lieberman. All of his questions were answered. He was given prescription for generic Zestoretic 25/20 mg instead of taking separate hydrochlorothiazide and lisinopril. CHIEF COMPLAINT/REASON FOR VISIT Recheck. HISTORY OF PRESENT ILLNESS This is a 60 year-old white man who came in today for follow up. I saw him on March 09, 2010 at that time he was started on hydrochlorothiazide 25 mg daily for hypertension. He has been taking it every day. So far no side effect. There was no dizziness or lightheadedness, joint swelling or joint pain or dry mouth. He had a basic metabolic profile on March 23, 2010 it was unremarkable except for slightly low chloride 99. BUN was 24. He has been followed with Dr. Lieberman following after lipoma excision and hematoma of the injury. It is gradually getting better. There is no evidence of infection. There was no fever or chills. He saw Dr. Camejo urologist and he did receive intravesical VCG for bladder tumor. There was no hematuria. He saw Dr. King on March 23, 2010. It was suggested to get MRI of the cervical spine and advised him to get x-ray of the right hip, right knee and left shoulder. Patient will follow up with Dr. King following after MRI and x-ray. It should be noted that he does not want influenza immunization and he continued to smoke tobacco. He is not ready to quit. CURRENT MEDICATIONS Post-visit Medication Reconciliation Reviewed and [...] no distress. Able to talk without interruption. PP/kmk Signed Riley Sanchez M.D. Internal Medicine Electronically Signed By:RILEY SANCHEZ MD On 04/21/2010 03:33 PM Modified by:RILEY SANCHEZ MD On 04/21/2010 03:33 PM Source: [facility] MHSDOLBEYNONRADSYS Document Id: [id number] ON ATTACHING MACHINE OPERATOR documented in this encounter Miscellaneous Notes Miscellaneous - Riley Sanchez M.D. - 03/26/2010 10:39 AM CST Ambulatory Patient Summary [address] [address] Visit Information Name: SEVEN SALAZAR Current Date: 03/26/2010 10:39:43 Primary Care Provider: RILEY SANCHEZ MD Your [...] Cancel previous prescriptions for HCTZ and lisinopril. acetaminophen-hydrocodone (acetaminophen-hydrocodone 500 mg-5 mg oral tablet) 1 tab(s) Oral every 4 hours as needed for Pain Your Allergies & Intolerances Substance Reaction Symptoms [...] Next Due Additional Information Diabetes and/or Vascular: LDL every 1 year 03/26/2010 Screening Colonoscopy or Flex Sig or Barium Enema or Occult Blood X3 03/26/2010 Checks for signs of cancer of the colon. Lipid Panel every 5 years Age 20-75 03/26/2010 Checks blood for good (HDL) and bad (LDL) cholesterol. Know your numbers, they are one indicator of your risk for heart attack and stroke. Vaccine: Flu every 1 year 03/26/2010 Immunization to help prevent you from getting the flu strain expected to be a problem for that year's flu season. Vaccine: Tetanus every 10 years 02/12/2010 02/10/2020 Immunization to help prevent you from getting the serious disease Tetanus (Lockjaw). Your Upcoming Appointments Date Time Location Reason Provider 03/28/2010 16:30 [facility] Surgeon Ivan Garcia MD 04/02/2010 08:30 [facility] Lab TEST 04/02/2010 09:00 [facility] Urology bcg per Jodie after UA w/micro /coming at 9:00 Jatinder Camejo MD 04/09/2010 08:30 [facility] Lab TEST 04/09/2010 09:00 [facility] Urology bcg per Jodie after UA w/micro Jatinder Camejo MD 04/16/2010 08:10 [facility] Lab TEST 04/16/2010 09:00 [facility] Urology bcg per Jodie after UA w/micro Sneiders MD, Jatinder 04/23/2010 08:15 [facility] Lab TEST 04/23/2010 09:00 [facility] Urology bcg per Jodie after UA w/Jatinder Perdomo MD Your Goals/Additional instructions: Source: [facility] POWERCHART Document Id: [id number] Miscellaneous - Riley Sanchez M.D. - 03/26/2010 10:39 AM CST Ambulatory Depart Summary [address] [address] Visit Information Name: SEVEN SALAZAR Current Date: 03/26/2010 10:39:41 Primary Care Provider: RILEY SANCHEZ MD SEVEN [...] Cancel previous prescriptions for HCTZ and lisinopril. acetaminophen-hydrocodone (acetaminophen-hydrocodone 500 mg-5 mg oral tablet) 1 tab(s) Oral every 4 hours as needed for Pain Additional Information: Yes - Current list of reconciled medications is provided and explained to the patient and/or family, guardian/caregiver. Source: [facility] [employer] Document Id: [id number] Miscellaneous - Rivka, Historical Provider Ser - 03/26/2010 9:58 AM BUTTON ATTACHING MACHINE OPERATOR Adult Capital Markets Specialist Intake/History Adult Capital Markets Specialist Intake/History Entered On: 03/26/2010 10:00 BUTTON ATTACHING MACHINE OPERATOR Performed On: 03/26/2010 9:58 BUTTON ATTACHING MACHINE OPERATOR by PRACHI GRIMM Intake Chief Complaint: recheck Temperature Core: 36.8C(Converted to: 98.2DegF) Apical Heart Rate: 60/min Respiratory Rate: 20/min Systolic Blood Pressure: 110mmHg Diastolic Blood Pressure: 60mmHg NIBP Mean: 77mmHg BP Location: Right upper extremity SpO2: 96% Heart Rhythm: Regular Oxygen Therapy: Room air Actual Weight: 98.000kg Actual Weight Conversion to Pounds: 215.600lb Weight Source: Standing scale Dosing Weight Clinic: 98.00kg PRACHI GRIMM - 03/26/2010 9:58 BUTTON ATTACHING MACHINE OPERATOR Subjective Pain Symptoms: No PRACHI GRIMM - 03/26/2010 9:58 BUTTON ATTACHING MACHINE OPERATOR Dependent Habits Tobacco Use/Currently Using: Yes Exposure to Tobacco Smoke: Patient smokes PRACHI GRIMM - 03/26/2010 9:58 BUTTON ATTACHING MACHINE OPERATOR Tobacco Use Grid Type: Cigarettes Cigarette Use Packs/Day: 0.7 Last Use: today PRACHI GRIMM - 03/26/2010 9:58 BUTTON ATTACHING MACHINE OPERATOR Alcohol Use: Yes PRACHI GRIMM 03/26/2010 9:58 BUTTON ATTACHING MACHINE OPERATOR Caffeine Use Grid Caffeine Use: Current Type: Coffee, Tea Frequency: Daily Amount: 2 cup/day Last Use: today PRACHI GRIMM - 03/26/2010 9:58 BUTTON ATTACHING MACHINE OPERATOR Allergies Allergies (Active) NKA Estimated Onset Date: Unspecified ; Created By: SARAI NIXON; Reaction Status: Active ; Category:Drug ; Substance: NKA ; Type: Allergy ; Updated By: SARAI NIXON; Reviewed Date: 03/26/2010 9:01 BUTTON ATTACHING MACHINE OPERATOR Source: [facility] POWERCHART Document Id: [id number] BUTTON ATTACHING MACHINE OPERATOR!35 documented in this encounter Plan of Treatment Upcoming Encounters Date Type Specialty Care Team Description 04/12/2022 Office Visit Cardiovascular Disease Simone Gooden AP RN, C.N.P. [address] [phone] (Wo rk) documented as of this encounter Visit Diagnoses Not on filedocumented in this encounter
--- OUTSIDE RECORDS SUMMARY | 2022-03-29 08:00 | XMS_ITS | Encounter Summary ---
:1950 Author Organization [facility] Address [address] [place] [address] Care Team Providers Name Role Phone Unavailable Primary Care Provider Unavailable Encounter Details Date Type Department Care Team Description 08/20/2010 Hospital Encounter HX [facility] UROLOGY Jatinder Camejo M.D. [address] [place] [phone] (Wo rk) Social History Tobacco [...] How often do you attend islam or mandaen services? 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 documented as of this encounter Miscellaneous Notes Miscellaneous - Conversion, Historical Provider Ser - 08/20/2010 9:43 AM CDT Adult Registered Land Surveyor Intake/History Adult Registered Land Surveyor Intake/History Entered On: 08/20/2010 9:45 CDT Performed On: 08/20/2010 9:43 CDT by ROBINSON COOK Intake Chief Complaint: BCG Tx #3 of 3 Temperature Core: 36.4C(Converted to: 97.5DegF) (LOW) Peripheral Pulse Rate: 72/min Systolic Blood Pressure: 140mmHg Diastolic Blood Pressure: 86mmHg NIBP Mean: 104mmHg BP Location: Left upper extremity ROBINSON COOK 08/20/2010 9:43 CDT Subjective Pain Symptoms: No ROBINSON COOK 08/20/2010 9:43 CDT Dependent Habits Tobacco Use/Currently Using: Yes Exposure to Tobacco Smoke: Patient smokes ROBINSON COOK 08/20/2010 9:43 CDT Tobacco Use Grid Type: Cigarettes Cigarette Use Packs/Day: 0.5 Last Use: today ROBINSON COOK 08/20/2010 9:43 CDT Caffeine Use Grid Caffeine Use: Current Type: Coffee, Tea Frequency: Daily Amount: 2 cup/day Last Use: today ROBINSON COOK 08/20/2010 9:43 CDT Allergies Allergies (Active) NKA Estimated Onset Date: Unspecified ; Created By: SARAI NIXON; Reaction Status: Active ; Category:Drug ; Substance: NKA ; Type: Allergy ; Updated By: SARAI NIXON; Reviewed Date: 08/20/2010 9:42 CDT [facility] [employer] Document Id: [id number]!26 documented in this encounter Plan of Treatment Upcoming Encounters Date Type Specialty Care Team Description 04/12/2022 Office Visit Cardiovascular Disease Simone Gooden AP RN, C.N.P. [address] [phone] (Wo rk) documented as of this encounter Visit Diagnoses Not on filedocumented in this encounter
--- OUTSIDE RECORDS SUMMARY | 2022-03-29 08:00 | XMS_ITS | Encounter Summary ---
:1950 Author Organization [facility] Address [address] [place] [address] Care Team Providers Name Role Phone Unavailable Primary Care Provider Unavailable Encounter Details Date Type Department Care Team Description 04/23/2010 Hospital Encounter [facility]X [facility] UROLOGY Jatinder Camejo M.D. 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 - 04/23/2010 8:55 AM CST Adult Payroll Administrator Intake/History Adult Payroll Administrator Intake/History Entered On: 04/23/2010 8:58 VOTATOR MACHINE OPERATOR Performed On: 04/23/2010 8:55 VOTATOR MACHINE OPERATOR by PRUDENCIO CANNON Intake Chief Complaint: 5 of 6 BCG treatments Temperature Core: 36.4C(Converted to: 97.5DegF) (LOW) Peripheral Pulse Rate: 74/min Systolic Blood Pressure: 136mmHg Diastolic Blood Pressure: 76mmHg NIBP Mean: 96mmHg BP Location: Left upper extremity IVAN PRUDENCIO Maguire 04/23/2010 8:55 VOTATOR MACHINE OPERATOR Subjective Pain Symptoms: Yes IVAN PRUDENCIO Maguire 04/23/2010 8:55 VOTATOR MACHINE OPERATOR Pain Pain Assessment Grid Pain 1 Location: Shoulder (Comment: arthritis pain [IVAN PRUDENCIO Maguire 04/23/2010 8:55 VOTATOR MACHINE OPERATOR] ) Laterality: Bilateral Onset: Other: chronic PRUDENCIO CANNON 04/23/2010 8:55 VOTATOR MACHINE OPERATOR Dependent Habits Tobacco Use/Currently Using: Yes Exposure to Tobacco Smoke: Patient smokes IVAN PRUDENCIO Montez 04/23/2010 8:55 VOTATOR MACHINE OPERATOR Tobacco Use Grid Type: Cigarettes Cigarette Use Packs/Day: 0.7 Last Use: today PRUDENCIO CANNON 04/23/2010 8:55 VOTATOR MACHINE OPERATOR Caffeine Use Grid Caffeine Use: Current Type: Coffee, Tea Frequency: Daily Amount: 2 cup/day Last Use: today PRUDENCIO CANNON 04/23/2010 8:55 VOTATOR MACHINE OPERATOR Allergies Allergies (Active) NKA Estimated Onset Date: Unspecified ; Created By: SARAI NIXON; Reaction Status: Active ; Category:Drug ; Substance: NKA ; Type: Allergy ; Updated By: SARAI NIXON; Reviewed Date: 04/23/2010 8:51 VOTATOR MACHINE OPERATOR Source: [facility] POWERCHART Document Id: [id number] VOTATOR MACHINE OPERATOR!32 TOR MACHINE OPERATOR documented in this encounter Plan of Treatment Upcoming Encounters Date Type Specialty Care Team Description 04/12/2022 Office Visit Cardiovascular Disease Simone Gooden AP RN, C.N.P. [address] [phone] (Wo rk) documented as of this encounter Visit Diagnoses Not on filedocumented in this encounter
--- OUTSIDE RECORDS SUMMARY | 2022-03-29 08:00 | XMS_ITS | Encounter Summary ---
:1950 Author Organization [facility] Address [address] [place] [address] Care Team Providers Name Role Phone Unavailable Primary Care Provider Unavailable Encounter Details Date Type Department Care Team Description 05/02/2010 Hospital Encounter HX [facility] Kumar King M.D. [address] [place] [address], [address] [place] [address] (Wo rk) Social History Tobacco [...] How often do you attend jew or yazidism services? 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 - 05/02/2010 12:00 AM CST [id number] DIAGNOSIS 1. Right shoulder pain 2. Right glenohumeral DJD HISTORY/INDICATION Mr. Salazar presents today to have his ultrasound guided right subacromial/subdeltoid bursa as well as his ultrasound guided right glenohumeral joint corticosteroid injections performed. PROCEDURE PERFORMED 1. Ultrasound guided right subacromial/subdeltoid bursa corticosteroid injection. 2. Ultrasound guided right glenohumeral joint corticosteroid injection. PATIENT EDUCATION Ready to learn. No apparent learning barriers were identified. Learning preferences include listening. Explained diagnosis and treatment of plan. The patient expressed understanding of the content. Following denial of allergy and review of potential side effects and complications including but not necessarily limited to infection, allergic reaction, local tissue breakdown, systemic effects of corticosteroids, elevation of blood glucose, injury to soft tissues and/or nerves and seizure, the patient indicated understanding and agreed to proceed. Signed informed consent was obtained. DESCRIPTION OF PROCEDURE 1. Ultrasound guided right subacromial/subdeltoid bursa corticosteroid injection. Prior to the start of the procedure, a pause was performed to confirm the patient's name, affected area and proposed procedure. The patient was placed in a lateral decubitus position. An optimal ultrasound image of the right subacromial/subdeltoid bursa was obtained with a 12-5 linear transducer. A pre-procedure image was saved to the hard drive. Following this, the area was prepped with a ChloraPrep scrub, then re-examined using the same transducer, sterile ultrasound transducer cover and sterile ultrasound transducer gel. Real time ultrasound was utilized to guide a 25 gauge 2 inch needle into the anterior synovial recess of the subacromial/subdeltoid bursa. After visualization of the tip in the target area and negative aspiration for blood, a mixture of 4 cc's of 1% Lidocaine and 1 cc of 40 mg. per cc of Depo-Medrol was delivered to the target area while observing injectate flow with real time ultrasonographic imaging. The injectate was delivered without complications. 0 cc's of Depo-Medrol was wasted due to single use vials for infection control purposes. DESCRIPTION OF PROCEDURE 2. Ultrasound guided right glenohumeral joint corticosteroid injection. Prior to the start of the procedure, a pause was performed to confirm the patient's name, affected area and proposed procedure. The patient was placed in a seated position. An optimal ultrasound image of the posterior right glenohumeral joint was obtained with a 5-2 curvilinear transducer. A pre-procedure image was saved to the hard drive. Following this, the area was prepped with a ChloraPrep scrub, then re-examined using the same transducer, sterile ultrasound transducer cover and sterile ultrasound transducer gel. Next, 3 cc's of 1% Lidocaine was used for local anesthesia using a 25 gauge 2 inch needle. Following delivery of local anesthesia, real time ultrasound was utilized to guide the same 25 gauge 2 inch needle into the posterior aspect of the glenohumeral joint. At this point, the syringe containing the Lidocaine was disconnected from the needle while the needle tip remained within the posterior glenohumeral joint. A syringe containing 3 cc's of 1% Lidocaine and 1 cc of 40 mg. per cc of Depo-Medrol was then attached to the needle. After reconfirming the needle tip placement with in the posterior glenohumeral joint, this mixture was delivered to the target area while observing injectate flow with real time ultrasonographic imaging. The injectate was delivered without complications. 0 cc's of Depo-Medrol was wasted due to single use vials for infection control purposes. The patient tolerated the procedure well. He was observed for an appropriate amount of time and discharged under his own power. He was instructed to contact me with any questions pertaining to the injection. He was instructed to use ice over the area of injection and limit activity for the rest of today. ADDITIONAL INSTRUCTIONS Mr. Salazar will be in contact with us if he has any difficulty following today's procedure. Otherwise, I will plan on being in contact with him next week to assess his progress following today's procedure and likely have him involved in physical therapy at that time. He voiced agreement and understanding with this plan. . DIANE/alfredo Signed Elise King M.D. Physical Medicine & Rehabilitation Electronically Signed By:ELISE KING MD On 05/11/2010 02:38 PM Modified by:ELISE KING MD On 05/11/2010 02:38 PM Source: [facility] [id number] Document Id: [id number] ET INSPECTOR documented in this encounter Miscellaneous Notes Miscellaneous - Micheal Mata P.A.-C. - 05/02/2010 9:14 AM CST Ambulatory Vitals Height Weight Ambulatory Vitals Height Weight Entered On: 05/02/2010 9:14 CASKET INSPECTOR Performed On: 05/02/2010 9:14 CASKET INSPECTOR by MICHEAL MATA Vitals/Ht/Wt Systolic Blood Pressure: 142mmHg (HI) Diastolic Blood Pressure: 80mmHg NIBP Mean: 101mmHg BP Location: Right upper extremity MATA, MICHEAL ADAMS - 05/02/2010 9:14 CASKET INSPECTOR Source: [facility] POWERCHART Document Id: [id number] CASKET INSPECTOR!6 ET INSPECTOR Miscellaneous - Micheal Mata P.A.-C. - 05/02/2010 9:10 AM CST Adult Senior Sous Chef Intake/History Adult Senior Sous Chef Intake/History Entered On: 05/02/2010 9:12 CASKET INSPECTOR Performed On: 05/02/2010 9:10 CASKET INSPECTOR by MICHEAL MATA Intake Systolic Blood Pressure: 148mmHg (HI) Diastolic Blood Pressure: 80mmHg NIBP Mean: 103mmHg BP Location: Right upper extremity Actual Weight: 97.300kg(Converted to: 214lb 8oz) Weight Source: Standing scale Dosing Weight Clinic: 97.30kg MATA, MICHEAL ADAMS - 05/02/2010 9:10 CASKET INSPECTOR Subjective Pain Symptoms: No MATABILLIEMICHEALSAY ADAMS - 05/02/2010 9:10 CASKET INSPECTOR Dependent Habits Tobacco Use/Currently Using: Yes Tobacco Use/Advised to Quit: Yes Exposure to Tobacco Smoke: Patient smokes MATA, MICHEAL ADAMS - 05/02/2010 9:10 CASKET INSPECTOR Tobacco Use Grid Type: Cigarettes Cigarette Use Packs/Day: 0.7 Last Use: today ADOLFO MICHEAL ADAMS - 05/02/2010 9:10 CASKET INSPECTOR Caffeine Use Grid Caffeine Use: Current Type: Coffee, Tea Frequency: Daily Amount: 2 cup/day Last Use: today MICHEAL MATA - 05/02/2010 9:10 CASKET INSPECTOR Allergies Allergies (Active) NKA Estimated Onset Date: Unspecified ; Created By: SARAI NIXON; Reaction Status: Active ; Category:Drug ; Substance: NKA ; Type: Allergy ; Updated By: SARAI NIXON; Reviewed Date: 04/23/2010 8:51 CASKET INSPECTOR Source: [facility] POWERCHART Document Id: [id number] CASKET INSPECTOR!27 ET INSPECTOR documented in this encounter Plan of Treatment Upcoming Encounters Date Type Specialty Care Team Description 04/12/2022 Office Visit Cardiovascular Disease Simone Gooden AP RN, C.N.P. [address] [address] [phone] (Wo rk) documented as of this encounter Visit Diagnoses Not on filedocumented in this encounter
--- OUTSIDE RECORDS SUMMARY | 2022-03-29 08:00 | XMS_ITS | Encounter Summary ---
:1950 Author Organization [facility] Address [address] [place] [address] Care Team Providers Name Role Phone Unavailable Primary Care Provider Unavailable Encounter Details Date Type Department Care Team Description 09/06/2010 Hospital Encounter HX [facility] Riley Jimenez M.D. [address] [facility], [facility] [address] [phone] Social History Tobacco Use Types Packs/Day [...] How often do you attend lutheran or gnosticism services? 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 - 09/06/2010 12:00 AM CDT [id number] IMPRESSION/REPORT/PLAN 1. Arthritis with arthralgia. The patient was noted to have an elevated sedimentation rate of 105 and leukocytosis with a white blood cell count of 13.9 on 08/31/2010. The etiology for his symptoms is not clear. This may be related to intravesical BCG therapy. His symptoms are suspicious for polymyalgia rheumatica. There are no symptoms of temporal artery tenderness or vision problems or other symptoms suggestive of temporal arteritis. It was decided to treat empirically with prednisone 20 milligrams daily in the morning with food. Advised him not to take aspirin every two hours because of the risk of GI bleeding and stomach upset. We will repeat a complete blood count and sedimentation rate today. He should call me if there is no improvement or worsening of symptoms. Otherwise, he should return to the clinic in two weeks for followup. If continues to have problems, we will consider a consultation at [facility]. All of his questions were answered. Today's studies: Complete blood count, sedimentation rate, liver profile, C reactive protein, CCP antibody, and parvo virus antibody. CHIEF COMPLAINT/REASON FOR VISIT Arthritis HISTORY OF PRESENT ILLNESS This is a 60-year-old white man who came in today for the above complaint. He has been having pain over his joint areas for about two weeks. He saw Dr. Camp on 08/31/2010 and had blood tests at that time. He came in today because of persistent symptoms. He has also noticed a lot of joint pain and swelling in spite of taking aspirin every two hours. According to the patient, this all started in his legs and the spread to his shoulders, hips and ribs. Initially, he thought these symptoms were related to his blood pressure medication. He stopped taking hydrochlorothiazide and he did not notice any improvement without his blood pressure medication. He has noticed swelling of his knee joints. He had a low-grade fever with some chills. He has stiffness in his neck and back, especially in the morning. He feels a little bit better in the afternoon and evening. He has some headache, but he has had no blurred vision, double vision or loss of vision. He denies tenderness over his scalp. He denies jaw pain. He does not have cough, sputum production, or hemoptysis. He denies chest congestion and wheezing. The patient completed BCG therapy for bladder cancer on 08/20/2010. CURRENT MEDICATIONS Post-visit Medication Reconciliation 1. Hydrochlorothiazide/lisinopril 25/20 milligrams one tablet by mouth daily at bedtime 2. Prednisone 20 milligrams by mouth daily in the morning with food ALLERGIES No known drug allergies. SYSTEMS REVIEW As per history of present illness. Other systems reviewed and they are negative. PAST MEDICAL/SURGICAL HISTORY Past medical history 1. Arthritis 2. Degenerative disc disease of the cervical spine, C5, C6 and C6-C7 3. Degenerative disc disease of the lumbar spine, L3, L4 through L5-S1 4. 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 Urothelial carcinoma of the urinary bladder, status post cystoscopy. Recently underwent BCG therapy. 6. Elevated sedimentation rate 7. History of partial complex seizure 8. Hypertension 9. Hypokalemia 10. Leukocytosis 11. Lipoma, anterior abdominal wall 12. Obesity 13. History of stroke 14. Tobacco use Past surgical history 1. Status post appendectomy, 1967 2. Status post excision of keratoacanthoma from scalp, 04/11/1998 3. Status post left C5-C6 foraminotomy and hemilaminectomy 4. Status post left C6-C7 foraminotomy, hemilaminectomy and discectomy, 05/31/1999 at [facility] 5. Status post excision of lipoma from back, 07/16/1999 6. Status post right cataract extraction, 08/2008 7. Status post left cataract extraction, 08/2008 8. Status post excision of lipoma from anterior abdominal wall, 02/19/2010 9. Status post transurethral resection of bladder tumor, 02/19/2010. 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 PREVENTIVE SERVICES Tetanus: 02/12/2010. Other preventive services per EMR. BCG therapy completed on 08/20/2010. SOCIAL HISTORY The patient is single. He has five children. He smokes one pack of cigarettes a day. He drinks alcohol occasionally. He drinks coffee. 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 FAMILY HISTORY Hypertension in mother and siblings. Father from pancreatic cancer at the age of 81. There is no family history of bleeding disorders or reaction to general anesthesia. VITAL SIGNS DATE/TIME 09/06/2010 WEIGHT 91.5 kg TEMPERATURE 37.0 degreesC RESP RATE 20 / min RESP DESC Oxygen saturation on room air: 98% PULSE 90 SYSTOLIC 152, repeat blood pressure 160 DIASTOLIC 80, repeat blood pressure 80 PHYSICAL EXAM AREA EXAM TEXT GENERAL The patient is sitting in no acute distress. He is able to talk without interruption. SKIN No rash, bruise, ecchymosis or nodule. HEAD No facial rash, asymmetry or sinus tenderness. EYES Pupils equal, round, reactive to light and accommodation. Extraocular movements intact. No pallor, icterus or conjunctivitis. ENT No nasal congestion, discharge or bleeding. There is no ear infection. Normal tympanic membranes. No mastoid tenderness. Tongue is moist and midline. No oral lesion or dehydration. LYMPH NODES There is no cervical or supraclavicular lymphadenopathy. HEART Regular rhythm. There is no S3 or gallop. No obvious murmur. LUNGS Normal respiratory effort. Clear to auscultation. Normal to percussion. ABDOMEN Moves with respiration. Bowel sounds present. Soft. No rebound, tenderness, guarding or rigidity. No organomegaly. EXTREMITIES No clubbing, cyanosis, edema, infection or calf tenderness. MENTAL Alert and oriented times three. NEURO Grossly nonfocal exam. PP/nmd Signed Riley Sanchez M.D. Internal Medicine Electronically Signed By: RILEY SANCHEZ MD On: 10/03/2010 03:36 PM Modified by and Electronically Signed by: RILEY SANCHEZ MD On: 10/03/2010 03:36 PM Source: [facility] [id number] Document Id: [id number] documented in this encounter Miscellaneous Notes Miscellaneous - Riley Sanchez M.D. - 09/06/2010 5:32 PM CDT Results Notification From: RILEY SANCHEZ MD To: PRACHI GRIMM Sent: 09/06/2010 17:32:18 CDT ! Show up: 09/06/2010 17:31:00 CDT Subject: Results Notification Actions: Notify patient of results Due Date/Time: 09/06/2010 17:31:00 CDT Source: [facility] [email or web address] Document Id: [id number] Miscellaneous - Riley Sanchez M.D. - 09/06/2010 4:46 PM CDT Ambulatory Patient Summary [address] [address] Visit Information Name: SEVEN SALAZAR Current Date: 09/06/2010 16:46:22 Primary Care Provider: RILEY SANCHEZ MD Your [...] Diabetes and/or Vascular: LDL every 1 year 09/06/2010 Screening Colonoscopy or Flex Sig or Barium Enema or Occult Blood X3 02/22/2005 02/20/2015 Checks for signs of cancer of the colon. Lipid Panel every 5 years Age 20-75 09/06/2010 Checks blood for good (HDL) and bad (LDL) cholesterol. Know your numbers, they are one indicator of your risk for heart attack and stroke. Vaccine: Flu every 1 year 09/06/2010 Immunization to help prevent you from getting the flu strain expected to be a problem for that year's flu season. Vaccine: Tetanus every 10 years 02/12/2010 02/10/2020 Immunization to help prevent you from getting the serious disease Tetanus (Lockjaw). Your Upcoming Appointments Date Time Location Reason Provider 10/08/2010 15:00 [facility] Urology systJatinder Alonzo MD Your Goals/Additional instructions: Source: [facility] POWERCHART Document Id: [id number] Miscellaneous - Riley Sanchez M.D. - 09/06/2010 4:46 PM CDT Ambulatory Depart Summary [address] [address] Visit Information Name: SEVEN SALAZAR Current Date: 09/06/2010 16:46:21 Primary Care Provider: RILEY SANCHEZ MD SEVEN [...] to the patient and/or family, guardian/caregiver. Source: [facility] [employer] Document Id: [id number] Electronically signed by Conversion, [facility] Senior Account Clerk [id number] at 10/06/2016 6:26 PM CDT Miscellaneous - Conversion, Historical Provider Ser - 09/06/2010 4:16 PM CDT Ambulatory Vitals Height Weight Ambulatory Vitals Height Weight Entered On: 09/06/2010 16:18 CDT Performed On: 09/06/2010 16:16 CDT by PRACHI GRIMM Vitals/Ht/Wt Systolic Blood Pressure: 160mmHg (HI) Diastolic Blood Pressure: 80mmHg NIBP Mean: 107mmHg BP Location: Right upper extremity PRACHI GRIMM - 09/06/2010 16:16 CDT Source: [facility] [employer] Document Id: [id number] CDT!6 Miscellaneous - Conversion, Historical Provider Ser - 09/06/2010 4:14 PM CDT Adult Hearing Therapy Teacher Intake/History Adult Hearing Therapy Teacher Intake/History Entered On: 09/06/2010 16:15 CDT Performed On: 09/06/2010 16:14 CDT by PRACHI GRIMM Intake Chief Complaint: recheck Temperature Core: 37.0C(Converted to: 98.6DegF) Peripheral Pulse Rate: 90/min Respiratory Rate: 20/min Systolic Blood Pressure: 152mmHg (HI) Diastolic Blood Pressure: 80mmHg NIBP Mean: 104mmHg BP Location: Right upper extremity SpO2: 98% Heart Rhythm: Regular Oxygen Therapy: Room air Actual Weight: 91.500kg(Converted to: 201lb 12oz) Weight Source: Standing scale Dosing Weight Clinic: 91.50kg PRACHI GRIMM - 09/06/2010 16:14 CDT Subjective Pain Symptoms: No PRACHI GRIMM - 09/06/2010 16:14 CDT Dependent Habits Tobacco Use/Currently Using: Yes Exposure to Tobacco Smoke: Patient smokes PRACHI GRIMM - 09/06/2010 16:14 CDT Tobacco Use Grid Type: Cigarettes Cigarette Use Packs/Day: 0.5 Last Use: today PRACHI GRIMM - 09/06/2010 16:14 CDT Alcohol Use: No PRACHI GRIMM 09/06/2010 16:14 CDT Caffeine Use Grid Caffeine Use: Current Type: Coffee, Tea Frequency: Daily Amount: 2 cup/day Last Use: today PRACHI GRIMM 09/06/2010 16:14 CDT Allergy Allergies (Active) NKA Estimated Onset Date: Unspecified ; Created By: SARAI NIXON; Reaction Status: Active ; Category:Drug ; Substance: NKA ; Type: Allergy ; Updated By: SARAI NIXON; Reviewed Date: 08/20/2010 9:42 CDT Source: [facility] [employer] Document Id: [id number] CDT!34 documented in this encounter Plan of Treatment Upcoming Encounters Date Type Specialty Care Team Description 04/12/2022 Office Visit Cardiovascular Disease Simone Gooden AP RN, C.N.P. [address] [phone] (Wo rk) documented as of this encounter Visit Diagnoses Not on filedocumented in this encounter
--- OUTSIDE RECORDS SUMMARY | 2022-03-29 08:00 | XMS_ITS | Encounter Summary ---
:1950 Author Organization [facility] Address [address] [place] [address] Care Team Providers Name Role Phone Unavailable Primary Care Provider Unavailable Encounter Details Date Type Department Care Team Description 04/09/2010 Hospital Encounter [facility] Tarik Camejo M.D. [address] [place], [place] [phone] (Wo rk) Social History [...] How often do you attend catholic or shinto services? 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 [address] [phone] (Wo rk) documented as of this encounter Visit Diagnoses Not on filedocumented in this encounter
--- OUTSIDE RECORDS SUMMARY | 2022-03-29 08:00 | XMS_ITS | Encounter Summary ---
:1950 Author Organization [facility] Address [address] [place] [address] Care Team Providers Name Role Phone Unavailable Primary Care Provider Unavailable Encounter Details Date Type Department Care Team Description 07/09/2010 Hospital Encounter HX [facility] Tamika Camejo M.D. [address] [place] [address] (Wo rk) Social History Tobacco [...] How often do you attend yazidi or sikh services? 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 - 07/09/2010 12:00 AM CST [id number] CHIEF COMPLAINT/REASON FOR VISIT Bladder cancer. HISTORY OF PRESENT ILLNESS This is a 60-year-old male who approximately three months ago underwent transurethral resection of a bladder tumor which was grade 1 of 3. It was not invasive. He has completed six weeks of induction immunotherapy with intravesical BCG. He remains asymptomatic. He specifically denies hematuria, dysuria, urinary frequency, urgency, or urge incontinence. Cystoscopy was performed last week which was essentially unremarkable. He did have urine cytology and FISH studies sent. The FISH studies were negative, however the urine cytology was suspicious for recurrent low-grade carcinoma. DISCUSSION/PLAN The above findings were described to the patient. It was recommended that we proceed with cystoscopy in the operating room looking for recurrent tumors or carcinoma in situ. This would include doing random and directed biopsies if a lesion is identified. Assuming these biopsies are negative, he would also need to have a repeat CT urogram. If the biopsies are indeed positive, I will recommend that he repeat a second six week course of intravesical immunotherapy with BCG, only this time we would also add alpha interferon. The patient will require a preoperative history and physical exam with Dr. Sanchez, this consult is requested to help manage comorbidities during the perioperative timeframe. I would note that the patient is somewhat hypertensive today with a blood pressure of 154/90. He was anxious about hearing the results, but he has also not yet taken his antihypertensive medications. The patient and I spent approximately 15 to 18 minutes together, greater than 50 percent of this time was spent counseling and coordinating care. /nmd Signed Tamika Camejo M.D. Urology CC: Riley Sanchez M.D. Internal Medicine [address] [place] [id number] Electronically Signed By: TAMIKA CAMEJO MD On: 07/09/2010 04:30 Source: [facility] MHSDOLBEYNONRADSYS Document Id: [id number] PAPER MACHINE OPERATOR documented in this encounter Miscellaneous Notes Miscellaneous - Tamika Camejo M.D. - 07/09/2010 10:47 AM CST Ambulatory Patient Summary [address] [address] Visit Information Name: SEVEN SALAZAR Current Date: 07/09/2010 10:47:52 Primary Care Provider: RILEY SANCHEZ MD Your [...] Diabetes and/or Vascular: LDL every 1 year 07/09/2010 Screening Colonoscopy or Flex Sig or Barium Enema or Occult Blood X3 07/09/2010 Checks for signs of cancer of the colon. Lipid Panel every 5 years Age 20-75 07/09/2010 Checks blood for good (HDL) and bad (LDL) cholesterol. Know your numbers, they are one indicator of your risk for heart attack and stroke. Vaccine: Flu every 1 year 07/09/2010 Immunization to help prevent you from getting the flu strain expected to be a problem for that year's flu season. Vaccine: Tetanus every 10 years 02/12/2010 02/10/2020 Immunization to help prevent you from getting the serious disease Tetanus (Lockjaw). Your Upcoming Appointments Date Time Location Reason Provider 08/06/2010 09:00 [facility] Bcg treatment Nell DEWEY, Tamika 09:00 [facility] bcg treatment Tamika Camejo MD 08/20/2010 09:00 [facility] bcg treatment Tamika Camejo MD Your Goals/Additional instructions: Source: [employer] Document Id: [id number] Miscellaneous - Tamika Camejo M.D. - 07/09/2010 10:47 AM CST [place] [address] Visit Information Name: SEVEN SALAZAR Current Date: 07/09/2010 10:47:51 Primary Care Provider: RILEY SANCHEZ MD SEVEN [...] to the patient and/or family, guardian/caregiver. Source: [employer] Document Id: [id number] Miscellaneous - Sherlyn Jung, C.MBhaveshABhavesh - 07/09/2010 10:13 AM CST Adult Bootmaker Intake/History Adult Bootmaker Intake/History Entered On: 07/09/2010 10:18 LACE PAPER MACHINE OPERATOR Performed On: 07/09/2010 10:13 LACE PAPER MACHINE OPERATOR by SHERLYN JUNG Intake Chief Complaint: Discuss results (urine for cyto/FISH) Temperature Core: 36.8C(Converted to: 98.2DegF) Peripheral Pulse Rate: 78/min Systolic Blood Pressure: 154mmHg (HI) Diastolic Blood Pressure: 90mmHg (HI) NIBP Mean: 111mmHg BP Location: Right upper extremity Heart Rhythm: Regular SHERLYN JUNG - 07/09/2010 10:13 LACE PAPER MACHINE OPERATOR Subjective Pain Symptoms: No SHERLYN JUNG - 07/09/2010 10:13 LACE PAPER MACHINE OPERATOR Dependent Habits Tobacco Use/Currently Using: Yes Exposure to Tobacco Smoke: Patient smokes SHERLYN JUNG - 07/09/2010 10:13 LACE PAPER MACHINE OPERATOR Tobacco Use Grid Type: Cigarettes Cigarette Use Packs/Day: 0.5 Last Use: today SHERLYN JUNG - 07/09/2010 10:13 LACE PAPER MACHINE OPERATOR Caffeine Use Grid Caffeine Use: Current Type: Coffee, Tea Frequency: Daily Amount: 2 cup/day Last Use: today SHERLYN JUNG - 07/09/2010 10:13 LACE PAPER MACHINE OPERATOR Allergies Allergies (Active) NKA Estimated Onset Date: Unspecified ; Created By: SARAI NIXON; Reaction Status: Active ; Category:Drug ; Substance: NKA ; Type: Allergy ; Updated By: SARAI NIXON; Reviewed Date: 07/02/2010 10:49 LACE PAPER MACHINE OPERATOR Source: [facility] POWERCHART Document Id: [id number] LACE PAPER MACHINE OPERATOR!27 PAPER MACHINE OPERATOR documented in this encounter Plan of Treatment Upcoming Encounters Date Type Specialty Care Team Description 04/12/2022 Office Visit Cardiovascular Disease Simone Gooden AP RN, C.N.P. [address] [phone] (Wo rk) documented as of this encounter Visit Diagnoses Not on filedocumented in this encounter
--- OUTSIDE RECORDS SUMMARY | 2022-03-29 08:00 | XMS_ITS | Encounter Summary ---
:1950 Author Organization [facility] Address [address] [place] [address] Care Team Providers Name Role Phone Unavailable Primary Care Provider Unavailable Encounter Details Date Type Department Care Team Description 08/20/2010 Hospital Encounter HX [facility] Tarik Camejo M.D. [address] [place], [place] [phone] (Wo rk) Social History [...] How often do you attend sabianist or episcopalian services? 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 - 08/20/2010 9:24 AM CDT Results Notification Document Contains Addenda Addendum by ROBINSON COOK on 20 August 2010 12:32:48 CDT Tx complete and lab notified. From: TAMIKA CAMEJO MD To: PRUDENCIO LOVE TAMMY A Sent: 08/20/2010 09:24:08 CDT ! Show up: 08/20/2010 09:23:00 CDT Subject: Results Notification Actions: Notify patient of results Due Date/Time: 08/20/2010 09:23:00 CDT Source: [facility] Photo Rankr Document Id: [id number] Electronically signed by Conversion, [facility] Supervisor [employer] [id number] at 10/06/2016 10:24 AM CDT documented in this encounter Plan of Treatment Upcoming Encounters Date Type Specialty Care Team Description 04/12/2022 Office Visit Cardiovascular Disease Simone Gooden AP RN, C.N.P. [address] [phone] (Wo rk) documented as of this encounter Visit Diagnoses Not on filedocumented in this encounter
--- OUTSIDE RECORDS SUMMARY | 2022-03-29 08:00 | XMS_ITS | Encounter Summary ---
:1950 Author Organization [facility] Address [address] [place] [address] Care Team Providers Name Role Phone Unavailable Primary Care Provider Unavailable Encounter Details Date Type Department Care Team Description 03/23/2010 Hospital Encounter HX [facility] Kumar King M.D. [address] [place] [address], [address] [place] [address] (Wo rk) Social History Tobacco [...] often do you attend jehovah's witness or yazdanism services? 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 - 03/23/2010 12:00 AM CST [id number] CHIEF COMPLAINT / REASON FOR VISIT Referral is by Dr. Sanchez. Neck pain, right greater left shoulder pain, right hip pain, and right knee pain HISTORY OF PRESENT ILLNESS Mr. Salazar is a pleasant 60-year-old male with a past medical history significant for left C5-C6, C6-7 foraminotomy and hemilaminectomy and diskectomy in May 1999. He also has a past medical history of a seizure disorder and bladder cancer currently undergoing intravesicular BCG therapy. Mr. Salazar reports that the area of pain that is bothering in the most currently is right shoulder pain. This is present for the past year. He describes this as an achy, deep discomfort located diffusely in the right shoulder. This pain is worse at night when attempts to lye on his right side or if he attempts to do any type of work with his right arm including in front of his body, over his head, or out to his side. The pain can radiate into the mid into the mid humerus. It does not radiate distal to this point. He is also describing right sided neck pain. This has also been increasing over the past 6 to 12 months. He can occasionally experience some tingling in the right hand. He estimates that this occurs approximately two to three times per week. He feels weak generally but denies any focal weakness in his upper extremities. He has noted that he has significantly decreased range of motion of the right shoulder as well as the left although the left that painful for him. He denies any fevers or chills, recent unintentional weight loss. He is currently being treated for bladder cancer as mentioned above. He also describes right knee pain. This been intermittently bothering him for the past couple of years. This pain is worse when he is standing or walking. 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 He has noted swelling in the past but does not note any recently. He denies any warmth, erythema about the right knee. Denies any mechanical symptoms such as catching or locking. He denies any buckling or give away of the knee. He also describes intermittent right groin pain. He tends to notice this if he lifts his leg up to get in to a vehicle. This is probably the least bothersome for him of the other areas of discomfort. He also has intermittent low back pain which has been present for several years and has not been worsening. He is not taking any medication currently for this pain. He tries to avoid medications if possible. He rates his discomfort at its worse as a 10 out of 10 and this would be located on the right shoulder at its best as a 2 out of 10. He had x-rays performed of his right shoulder on February 12 which I reviewed with him. There is mildly advanced degenerative changes of the right glenohumeral joint as well as moderate degenerative changes of the AC joint. There appears to be a 1.4 cm calcific density along the anterior joint space likely presenting a loose body. He had x-rays of the cervical spine performed February 12, showed mildly advanced degenerative disc changes at C5-6 and C6-7. He had x-rays of the lumbar spine on 02/12/2010 which show moderately degenerative disc changes at L3-L4, L4-L5, L5-S1. There is mild facet arthropathy from L3-L4 through L5-S1. PAST MEDICAL/SURGICAL HISTORY 1. Bladder cancer 2. Hypertension 3. Hypokalemia 4. Seizure disorder 5. History of left C5-6 and C6-7 hemilaminectomy and foraminotomy in 1999. CURRENT MEDICATIONS 1. Hydrochlorothiazide 25 milligrams daily 2. Lisinopril 20 milligrams daily ALLERGIES No known medication allergies. SOCIAL HISTORY The patient lives in [place]. He works at [email or web address]. He smokes one-pack per day of cigarettes but has been decreasing this and is scheduled to meet with Dr. Sanchez next week to attempt to quit smoking. PHYSICAL EXAM GENERAL: Pleasant 60-year-old male in no acute distress. NEURO: Oriented to person, place and time. Appropriate mood and affect. GAIT: Gait reveals normal quique and stride. Toe and heel walking are normal. EXTREMITIES: Strength: All major muscle groups of the bilateral upper and lower extremities have normal and symmetric muscle strength, bulk and tone, except for -1 weakness of resisted external rotation bilaterally secondary to pain. Reflexes: Reflexes: Bilateral upper extremity muscle stretch reflexes are physiologic and symmetric. Plantar responses downgoing bilaterally. Patellar tendon 0/0, Achilles 0/-1. Negative Jory's response bilaterally. Sensation a patchy decreased sensation to pinprick in the right upper extremity and non dermatomal distribution. MUSCULOSKELETAL: SPINE: -1 cervical extension as well as right lateral rotation. Spurling's maneuver to the right causes a mild increase in his right upper extremity pain and tingling in the right hand. Palpation there is tenderness to palpation over the right cervical paraspinals. JOINT RANGE OF MOTION: Shoulder forward elevation is to 100 degrees bilaterally, abduction is to approximately 80 degrees bilateral before begins to shoulder height internal rotation is to L5 on the left and ipsilateral block on the right external rotation is 15 degrees in the right and 40 degrees in the left knee. There is no effusion present in the right knee. There is tenderness along both the medial and lateral joint lines. There is no warmth or erythema about the knee. Negative bounce home, Nicole's causes pain to the medial knee without a palpable click. There is no tenderness over the patellar facets bilaterally. Hip: mildly decreased hip internal range of motion on the right with pain in the groin at the end range of internal range of motion. Stinchfield's and Marily's are negative bilaterally. IMPRESSION/REPORT/PLAN 1. Neck pain with a history of left C5-6 and C6-7 foraminotomy and hemilaminectomy in 1999. 2. Right glenohumeral DJD 3. Intermittent right upper extremity pain and paresthesias 4. Right knee pain 5. Right hip pain 6. Lumbar spondylosis 7. Bladder cancer currently undergoing intravesical BCG therapy. I had a long discussion today with Mr. Salazar. He does not have any focal neurologic deficits on his examination. I feel that his right shoulder and right upper extremity pain is likely multifactorial. He has severe degenerative changes in the right glenohumeral joint and markedly decreased range of motion of the right shoulder and passive range of motion of the right shoulder reproduces much of his right shoulder and upper extremity pain. It is likely this is contributing to a significant amount to his right upper extremity symptoms. However, he does have a mildly positive Spurling's test and he is having occasional tingling and numbness into his right hand and a cervical radiculopathy cannot be excluded. His right knee and right hip pain is likely secondary to degenerative changes in those locations. He likely also has a significant amount of left glenohumeral DJD with his marked decreased range of motion on the left which is only slightly better when compared to the right. PLAN 1. I am going to proceed with an MRI of the cervical spine with the length of time this pain has persisted for Mr. Salazar as well as his previous history. 2. We are going to take x-rays of the right hip, right knee and left shoulder with the discomfort in these areas. 3. I will plan on seeing Mr. Salazar back following the imaging studies to review the results and discuss the next step in his management. We did discuss the possibility of proceeding with a combined ultrasound guided right subacromial/subdeltoid bursa corticosteroid and glenohumeral joint corticosteroid injections. This will be potentially for therapeutic as well as diagnostic purposes. 4. Mr. Salazar will be in contact with me prior to his follow up appointment if he notes any worsening or worrisome symptoms which we went over in detail today. He voiced agreement and understanding with this plan. JMP/kmk Signed Elise King M.D. Physical Medicine & Rehabilitation CC: Leta Sanchez M.D. Internal Medicine [address] [place] [address] Electronically Signed By:ELISE KING MD On 04/04/2010 05:55 PM Modified by:ELISE KING MD On 04/04/2010 05:55 PM Source: [facility] MHSDOLBEYNONRADSYS Document Id: [id number] CAR SALESPERSON documented in this encounter Miscellaneous Notes Miscellaneous - Micheal Mata P.A.-C. - 03/23/2010 9:56 AM CST Adult Client Support Analyst Intake/History Adult Client Support Analyst Intake/History Entered On: 03/23/2010 10:02 NEW CAR SALESPERSON Performed On: 03/23/2010 9:56 NEW CAR SALESPERSON by MICHEAL MATA Intake Systolic Blood Pressure: 90mmHg (LOW) Diastolic Blood Pressure: 66mmHg NIBP Mean: 74mmHg BP Location: Right upper extremity Actual Weight: 100.400kg Actual Weight Conversion to Pounds: 220.880lb Weight Source: Standing scale Dosing Weight Clinic: 100.40kg MICHEAL MATA - 03/23/2010 9:56 NEW CAR SALESPERSON Subjective Pain Symptoms: No MICHEAL MATA - 03/23/2010 9:56 NEW CAR SALESPERSON Dependent Habits Tobacco Use/Currently Using: Yes Tobacco Use/Advised to Quit: Yes Exposure to Tobacco Smoke: Patient smokes MICHEAL MAAT - 03/23/2010 9:56 NEW CAR SALESPERSON Tobacco Use Grid Type: Cigarettes Cigarette Use Packs/Day: 1.0 Last Use: today MICHEAL MATA - 03/23/2010 9:56 NEW CAR SALESPERSON Caffeine Use Grid Caffeine Use: Current Type: Coffee, Tea Frequency: Daily Amount: 2 cup/day Last Use: today MICHEAL MATA - 03/23/2010 9:56 NEW CAR SALESPERSON Allergies Allergies (Active) NKA Estimated Onset Date: Unspecified ; Created By: SARAI NIXON; Reaction Status: Active ; Category:Drug ; Substance: NKA ; Type: Allergy ; Updated By: SARAI NIXON; Reviewed Date: 03/19/2010 9:09 NEW CAR SALESPERSON Source: [facility] Cue Document Id: [id number] NEW CAR SALESPERSON!28 CAR SALESPERSON documented in this encounter Plan of Treatment Upcoming Encounters Date Type Specialty Care Team Description 04/12/2022 Office Visit Cardiovascular Disease Simone Gooden AP RN, C.N.P. [address] [phone] (Wo rk) documented as of this encounter Visit Diagnoses Not on filedocumented in this encounter
--- OUTSIDE RECORDS SUMMARY | 2022-03-29 08:00 | XMS_ITS | Encounter Summary ---
:1950 Author Organization [facility] Address [address] [place] [address] Care Team Providers Name Role Phone Unavailable Primary Care Provider Unavailable Encounter Details Date Type Department Care Team Description 08/13/2010 Hospital Encounter HX [facility] Jatinder Camejo M.D. [address] [place] [phone] (Wo rk) Social History [...] How often do you attend buddhism or catholic services? 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 documented as of this encounter Miscellaneous Notes Miscellaneous - Conversion, Historical Provider Ser - 08/13/2010 9:31 AM CDT Adult Child Psychiatrist Intake/History Adult Child Psychiatrist Intake/History Entered On: 08/13/2010 9:34 CDT Performed On: 08/13/2010 9:31 CDT by ROBINSON COOK Intake Chief Complaint: BCG Tx #2 of 3 Temperature Core: 37.0C(Converted to: 98.6DegF) Peripheral Pulse Rate: 66/min Systolic Blood Pressure: 128mmHg Diastolic Blood Pressure: 78mmHg NIBP Mean: 95mmHg BP Location: Left upper extremity ROBINSON COOK 08/13/2010 9:31 CDT Subjective Pain Symptoms: No ROBINSON COOK 08/13/2010 9:31 CDT Dependent Habits Tobacco Use/Currently Using: Yes Exposure to Tobacco Smoke: Patient smokes ROBINSON COOK 08/13/2010 9:31 CDT Tobacco Use Grid Type: Cigarettes Cigarette Use Packs/Day: 0.5 Last Use: today ROBINSON COOK 08/13/2010 9:31 CDT Caffeine Use Grid Caffeine Use: Current Type: Coffee, Tea Frequency: Daily Amount: 2 cup/day Last Use: today ROBINSON COOK 08/13/2010 9:31 CDT Allergies Allergies (Active) NKA Estimated Onset Date: Unspecified ; Created By: SARAI NIXON; Reaction Status: Active ; Category:Drug ; Substance: NKA ; Type: Allergy ; Updated By: SARAI NIXON; Reviewed Date: 08/13/2010 9:30 CDT [facility] Document Id: [id number] CDT!26 documented in this encounter Plan of Treatment Upcoming Encounters Date Type Specialty Care Team Description 04/12/2022 Office Visit Cardiovascular Disease Simone Gooden AP RN, C.N.P. [address] [phone] (Wo rk) documented as of this encounter Visit Diagnoses Not on filedocumented in this encounter
--- OUTSIDE RECORDS SUMMARY | 2022-03-29 08:00 | XMS_ITS | Encounter Summary ---
:1950 Author Organization [facility] Address [address] [place] [address] Care Team Providers Name Role Phone Unavailable Primary Care Provider Unavailable Encounter Details Date Type Department Care Team Description 03/27/2010 Hospital Encounter HX [facility] Kumar Pink M.D. [address], [address] [place] [address] (Wo rk) Social History Tobacco [...] How often do you attend jew or anabaptist services? 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 [address] [phone] (Wo rk) documented as of this encounter Procedures Procedure Name Priority Date/Time Associated Diagnosis Comme nts DX KNEE RIGHT 3 Routine 03/27/2010 10:35 AM Resul ts for this VIEWS MOLD COOLER procedure are i n the results section. documented in this encounter Results DX Knee Right 3 Views (03/27/2010 10:35 AM MOLD COOLER) Anatomical Region Laterality Modality Lower Extremity, Knee Right Radiographic Imagi ng Specimen (Source) Anatomical Collection Method Collection Time Re ceived Time Location / / Volume Laterality 03/27/2010 10:35 AM MOLD COOLER Addenda Addendum by Provider, Javid Samson 03/27/2010 10:35 AM MOLD COOLER RAD^^^OW XR Knee Right 3 views 03/27/2010 10:35:00 Narrative 03/27/2010 10:59 AM MOLD COOLER FINDINGS: The bones are intact and show no evidence of fracture or focal destruction. There is slight narro wing of the medial joint compartment. There is chondrocalcinosis of the medial and lateral joint compartments. Minimal spurring is seen in the patellofemoral joint space. ?? CONCLUSION: Degenerative osteoarthritis of the right knee as described. Procedure Note Torsten Pacheco M.D. / Provider, Everett agosto M.D. - 09/27/2016 FINDINGS: The bones are intact and show no evidence of fracture or focal destruction. There is slight narro wing of the medial joint compartment. There is chondrocalcinosis of the medial and lateral joint compartments. Minimal spurring is seen in the patellofemoral joint space. CONCLUSION: Degenerative osteoarthritis of the right knee as described. Romel Byrd(Denny)(M) IMG DIAGNOSTIC IMAGING PROCE DIMITRIOS documented in this encounter Visit Diagnoses Not on filedocumented in this encounter
--- OUTSIDE RECORDS SUMMARY | 2022-03-29 08:00 | XMS_ITS | Encounter Summary ---
:1950 Author Organization [facility] Address [address] [place] [address] Care Team Providers Name Role Phone Unavailable Primary Care Provider Unavailable Encounter Details Date Type Department Care Team Description 08/06/2010 Hospital Encounter HX [facility] Tarik Camejo M.D. [address] [place], [place] [phone] (Wo rk) Social History [...] How often do you attend nondenominational or nondenominational services? 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 [address] [phone] (Wo rk) documented as of this encounter Visit Diagnoses Not on filedocumented in this encounter
--- OUTSIDE RECORDS SUMMARY | 2022-03-29 08:01 | XMS_ITS | Encounter Summary ---
:1950 Author Organization [facility] Address [address] [place] [address] Care Team Providers Name Role Phone Unavailable Primary Care Provider Unavailable Encounter Details Date Type Department Care Team Description 05/31/1999 - 06/02/1999 Hospital Encounter HX NO MAPPING Social History [...] How often do you attend presybeterian or orthodox services? 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 [address] [phone] (Wo rk) documented as of this encounter Procedures Procedure Name Priority Date/Time Associated Diagnosis Comme nts DX CERVICAL SPINE Routine 05/31/1999 12:41 PM Res ults for this 2-3 VIEWS PIPEFITTER HELPER procedure are i n the results section. HXGENERAL PATHOLOGY Routine 05/31/1999 11:24 AM R esults for this REPORT PIPEFITTER HELPER procedure are i n the results section. documented in this encounter Results DX Cervical Spine 2-3 Views (05/31/1999 12:41 PM PIPEFITTER HELPER) Anatomical Region Laterality Modality Cervical Spine N/A Radiographic Imaging Specimen (Source) Anatomical Collection Method Collection Time Re ceived Time Location / / Volume Laterality 05/31/1999 12:41 PM PIPEFITTER HELPER Narrative 06/01/1999 9:02 AM PIPEFITTER HELPER 31-May-1999 12:41:00 ??Exam: Sp Cerv 2vw AP/Lat Indications: cervial decompression ORIGINAL REPORT - 01-Jun-1999 09:02:00 Films made for localization purposes. Electronically signed by: ?? Clary Pickard MD. ??[id number] 01-Jun-1999 09: 02 Procedure Note Codey Pickard M.D. - 08/11/2017Format ting of this note might be different from the original. 31-May-1999 12:41:00 Exam: Sp Cerv 2vw A P/Lat Indications: cervial decompression ORIGINAL REPORT - 01-Jun-1999 09:02:00 Films made for localization purposes. Electronically signed by: Clary Pickard MD. [id number] 01-Jun-1999 09:02 Gabriel Kim M.D. IMG DIAGNOSTIC IMAGING PROCE DIMITRIOS Hx general Pathology Report (05/31/1999 11:24 AM PIPEFITTER HELPER) Specimen Anatomical Collection Method Collection Time Receive d Time (Source) Location / / Volume Laterality 05/31/1999 11:24 05/31/1999 AM PIPEFITTER HELPER 11:24 AM PIPEFITTER HELPER Narrative [facility] - 05/31/1999 11:24 AM PIPEFITTER HELPER 31May1999 Surgical Pathology Requested By: ? Gabriel Kim M.D. ? ([id number]) ?? TISSUE DESCRIPTION: ?? Tissue from the spine (left C-6) ?? DIAGNOSIS: ?? Disk, left C-6, laminectomy: ??Disk material weighing 160 milligrams. ?? [id number] ?Jenna Pond M.D.:cjr Procedure Note 03/24/2018 31May1999 Surgical Pathology Requested By: Gabriel Kim M.D. (M [id number]) TISSUE DESCRIPTION: Tissue from the spine (left C-6) DIAGNOSIS: Disk, left C-6, laminectomy: Disk mater ial weighing 160 milligrams. 31May1999 Jenna Pond M.D.:hannah Gabriel Kim M.D. LAB PATHOLOGY/CYTOLOGY ORDER IRVIN Performing Organization Address City/State/ZIP Code Phon e Number [facility] - [address] [place] [id number] [facility] documented in this encounter Visit Diagnoses Not on filedocumented in this encounter
--- OUTSIDE RECORDS SUMMARY | 2022-03-29 08:01 | XMS_ITS | Encounter Summary ---
:1950 Author Organization [facility] Address [address] [place] [address] Care Team Providers Name Role Phone Unavailable Primary Care Provider Unavailable Encounter Details Date Type Department Care Team Description 03/15/2004 Hospital Encounter HX NO MAPPING Social History [...] How often do you attend pentecostalism or christian services? Never 04/16/2019 Do you [...] Date Recorded Male 06/28/2019 8:47 AM INSPECTOR RECEIVING documented as of this encounter Plan of Treatment Upcoming Encounters Date Type Specialty Care Team Description 04/12/2022 Office Visit Cardiovascular Disease Simone Gooden AP RN, C.N.P. [address] [phone] (Wo rk) documented as of this encounter Visit Diagnoses Not on filedocumented in this encounter
--- OUTSIDE RECORDS SUMMARY | 2022-03-29 08:01 | XMS_ITS | Encounter Summary ---
:1950 Author Organization [facility] Address [address] [place] [address] Care Team Providers Name Role Phone Unavailable Primary Care Provider Unavailable Encounter Details Date Type Department Care Team Description 02/26/[address] [facility] Riley Sanchez M.D. [address] [facility] [place] [address] [phone] Social History Tobacco Use Types Packs/Day [...] How often do you attend zoroastrian or oriental orthodox services? Never 04/16/2019 Do [...] Date Recorded Male 06/28/2019 8:47 AM CAR SCRUBBER documented as of this encounter Miscellaneous Notes Miscellaneous - Riley Sanchez M.D. - 02/26/2010 5:21 PM CDT Reminder Msg Document Contains Addenda Addendum by PRACHI GRIMM on 01 March 2010 18:47:34 CDT mailed report From: RILEY SANCHEZ MD To: PRACHI GRIMM Sent: 02/26/2010 17:21:39 CDT ! Show up: 02/26/2010 17:21:00 CDT Subject: Reminder Msg Actions: Notify patient of results Due Date/Time: 02/26/2010 17:21:00 CDT Source: [facility] POWERCHART Document Id: [id number] Electronically signed by Rivka, [facility] Patient Financial Services Specialist [id number] at 10/06/2016 11:21 PM CDT documented in this encounter Plan of Treatment Upcoming Encounters Date Type Specialty Care Team Description 04/12/2022 Office Visit Cardiovascular Disease Simone Gooden AP RN, C.N.P. [address] [phone] (Wo rk) documented as of this encounter Visit Diagnoses Not on filedocumented in this encounter
--- OUTSIDE RECORDS SUMMARY | 2022-03-29 08:01 | XMS_ITS | Encounter Summary ---
:1950 Author Organization [facility] Address [address] [place] [address] Care Team Providers Name Role Phone Unavailable Primary Care Provider Unavailable Encounter Details Date Type Department Care Team Description 06/09/2001 Hospital Encounter HX [facility] Kingsley Larkin M.D. [address] [place], [place] [phone] (Wo rk) Social History Tobacco Use Types [...] How often do you attend gnosticism or muslim services? 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 [address] [phone] (Wo rk) documented as of this encounter Visit Diagnoses Not on filedocumented in this encounter
--- OUTSIDE RECORDS SUMMARY | 2022-03-29 08:01 | XMS_ITS | Encounter Summary ---
:1950 Author Organization [facility] Address [address] [place] [address] Care Team Providers Name Role Phone Unavailable Primary Care Provider Unavailable Encounter Details Date Type Department Care Team Description 02/15/2010 Hospital Encounter HX [facility] FB Riley Jimenez M.D. [address] [facility] [address] [phone] Social History Tobacco Use Types Packs/Day [...] How often do you attend episcopalian or bahai services? 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 - 02/15/2010 12:00 AM CDT [id number] IMPRESSION / REPORT / PLAN 1. Preoperative evaluation. Patient is scheduled to have lipoma excision and excision of bladder tumor on February 19, 2010 at [facility]. Patient is willing to proceed. Benefits outweigh the risks. There was no absolute contraindication for procedure. Patient may undergo surgery. Advised him not to eat or drink after February 18, 2010 midnight. He should not take any medication in the morning of surgery and restart blood pressure medication following after surgery. 2. Hypertension. Blood pressure is still high. It was decided to increase lisinopril. He will take 20 mg by mouth daily. Repeated blood pressure was 150/98. He should come back and see me in two weeks at that time we need to check basic metabolic profile. 3. Immunizations. Patient declined influenza immunization today. All questions answered. Time spent 40 minutes. More than half the time was spent in counseling, coordination of care. CHIEF COMPLAINT/REASON FOR VISIT Preoperative medical evaluation. HISTORY OF PRESENT ILLNESS This is a preoperative medical evaluation requested by Dr. Lieberman and Dr. Camejo. Mr. Salazar is an 60 year-old white man who came in today for preoperative evaluation. 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 Lieberman and Dr. Camejo at [facility] on February 19, 2010. Patient is willing to proceed. He discussed with Dr. Lieberman and Dr. Camejo about risk, benefit and alternative therapy. Please see detailed in copy of preoperative history and physical form from [facility]. He has hypertension. He has been taking medication regularly. There was no angina. Today we discussed about influenza immunization. Patient declined to have it today. PP/kmk Signed Riley Sanchez M.D. Internal Medicine Electronically Signed By:RILEY SANCHEZ MD On 02/28/2010 08:06 PM Modified by:RILEY SANCHEZ MD On 02/28/2010 08:06 PM Source: [facility] [email or web address] Document Id: [id number] documented in this encounter Miscellaneous Notes Miscellaneous - Riley Sanchez M.D. - 02/15/2010 4:46 PM CDT Ambulatory Patient Summary [address] [address] Visit Information Name: SEVEN SALAZAR Current Date: 02/15/2010 16:46:55 Primary Care Provider: RILEY SANCHEZ MD Your Medications Here is a list of your medications. It is important to take your medications as directed. Use a pillbox or chart to help remind you to take your medications. Please let your doctor or nurse know if you have problems taking your medications. Medication/Strength Dose Route Frequency Indications/Special Instructions/Comments lisinopril (lisinopril 20 mg oral tablet) 20 mg Oral once a day (in the morning) acetaminophen-hydrocodone (acetaminophen-hydrocodone 500 mg-5 mg oral tablet) [...] Lateral Wall of Urinary Bladder Active Your Recommendations We want to make sure [...] Diabetes and/or Vascular: LDL every 1 year 02/15/2010 Screening Colonoscopy or Flex Sig or Barium Enema or Occult Blood X3 02/15/2010 Checks for signs of cancer of the colon. Lipid Panel every 5 years Age 20-75 02/15/2010 Checks blood for good (HDL) and bad (LDL) cholesterol. Know your numbers, they are one indicator of your risk for heart attack and stroke. Vaccine: Flu every 1 year 02/15/2010 Immunization to help prevent you from getting the flu strain expected to be a problem for that year's flu season. Your Upcoming Appointments Date Time Location Reason Provider 02/26/2010 16:15 [facility] Lab lab 03/01/2010 14:00 [facility] PM&R BACK PAIN R/SHOULDER NUMB TINGLING Ivan King MD 03/01/2010 16:15 [facility] 401.9 Riley Sanchez MD Your Goals/Additional instructions: Source: [facility] POWERCHART Document Id: [id number] Electronically signed by [facility] [place] Pump Machine Operator [id number] at 10/06/2016 11:21 PM CDT Nicoleaneous - Riley Sanchez M.D. - 02/15/2010 4:46 PM CDT Ambulatory Depart Summary [address] [address] Visit Information Name: SEVEN SALAZAR FABRICE Current Date: 02/15/2010 16:46:55 Primary Care Provider: RILEY SANCHEZ MD SEVEN SALAZAR has been given the following list of medications: Your Medications It is important to take your medications as directed. Use a pill box or chart to help remind you to take your medications. Please let your doctor or nurse know if you have problems taking your medications. Medication/Strength Dose Route Frequency Indications/Special Instructions/Comments lisinopril (lisinopril 20 mg oral tablet) 20 mg Oral once a day (in the morning) acetaminophen-hydrocodone (acetaminophen-hydrocodone 500 mg-5 mg oral tablet) 1 tab(s) Oral every 4 hours as needed for Pain Additional Information: Yes - Current list of reconciled medications is provided and explained to the patient and/or family, guardian/caregiver. Source: [facility] POWERCHART Document Id: [id number] Electronically signed by Conversion, [facility] [place] Pump Machine Operator [id number] at 10/06/2016 11:21 PM CDT Jodicellaneous - Riley Sanchez M.D. - 02/15/2010 3:41 PM CDT Ambulatory Vitals Height Weight Ambulatory Vitals Height Weight Entered On: 02/15/2010 15:42 CDT Performed On: 02/15/2010 15:41 CDT by RILEY SANCHEZ MD Vitals/Ht/Wt Peripheral Pulse Rate: 70/min Systolic Blood Pressure: 158mmHg (HI) Diastolic Blood Pressure: 98mmHg (>HHI) NIBP Mean: 118mmHg BP Location: Right upper extremity Heart Rhythm: Regular RILEY SANCHEZ MD - 02/15/2010 15:41 CDT Source: [employer] Document Id: [id number] CDT!8 Miscellaneous - Danyelle Nixon L.PBhaveshN. - 02/15/2010 3:21 PM CDT Ambulatory Vitals Height Weight Ambulatory Vitals Height Weight Entered On: 02/15/2010 15:21 CDT Performed On: 02/15/2010 15:21 CDT by DANYELLE NIXON Vitalpablo/Ht/Wt Systolic Blood Pressure: 144mmHg (HI) Diastolic Blood Pressure: 80mmHg NIBP Mean: 101mmHg BP Location: Left upper extremity DANYELLE NIXON - 02/15/2010 15:21 CDT Source: [employer] Document Id: [id number] CDT!6 Miscellaneous - Danyelle Nixon LBhaveshP.N. 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 Lieberman. LMP Date: N/A Temperature Core: 37.0C(Converted to: 98.6DegF) Peripheral Pulse Rate: 68/min Respiratory Rate: 20/min Systolic Blood Pressure: 150mmHg (HI) Diastolic Blood Pressure: 84mmHg NIBP Mean: 106mmHg BP Location: Left upper extremity Height: 171.50cm(Converted to: 5ft 8in, 67.52in) Actual Weight: 101.900kg(Converted to: 224lb 10oz) Dosing Weight Clinic: 101.90kg Clinic BSA: 2.20 Body Mass Index: 35kg/m2 DANYELLE NIXON - 02/15/2010 15:11 CDT Subjective Pain Symptoms: No DANYELLE NIXON - 02/15/2010 15:11 CDT Dependent Habits Tobacco Use/Currently Using: Yes Tobacco Use/Advised to Quit: Yes Exposure to Tobacco Smoke: Patient smokes DANYELLE NIXON - 02/15/2010 15:11 CDT Tobacco Use Grid Type: Cigarettes Cigarette Use Packs/Day: 1.0 Last Use: today DANYELLE NIXON - 02/15/2010 15:11 CDT Alcohol Use: No DANYELLE NIXON - 02/15/2010 15:11 CDT Caffeine Use Grid Caffeine Use: Current Type: Coffee, Tea Frequency: Daily Amount: 2 cup/day Last Use: today DANYELLE NIXON - 02/15/2010 15:11 CDT Allergies Allergies (Active) NKA Estimated Onset Date: Unspecified ; Created By: DANYELLE NIXON; Reaction Status: Active ; Category:Drug ; Substance: NKA ; Type: Allergy ; Updated By: DANYELLE NIXON; Reviewed Date: 02/13/2010 15:53 CDT Source: [employer] Document Id: [id number] CDT!4 documented in this encounter Plan of Treatment Upcoming Encounters Date Type Specialty Care Team Description 04/12/2022 Office Visit Cardiovascular Disease Simone Gooden AP RN, C.N.P. [address] [phone] (Wo rk) documented as of this encounter Visit Diagnoses Not on filedocumented in this encounter
--- OUTSIDE RECORDS SUMMARY | 2022-03-29 08:01 | XMS_ITS | Encounter Summary ---
:1950 Author Organization [facility] Address [address] [place] [address] Care Team Providers Name Role Phone Unavailable Primary Care Provider Unavailable Encounter Details Date Type Department Care Team Description 02/12/2010 Hospital Encounter HX [facility] FB Riley Jimenez M.D. [address] [facility], [facility] [address] [phone] Social History Tobacco Use Types Packs/Day [...] How often do you attend jainism or samaritan services? 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 - 02/12/2010 12:00 AM CDT [id number] IMPRESSION / REPORT / PLAN 1. Abdominal pain, right lower quadrant area. There is no acute abdomen. I reviewed CT of the abdomen and pelvis results. Probably he has discomfort coming from subcutaneous lipoma, refer him to Dr. Lieberman for further evaluation and consideration of excision. 2. Back pain. We will get an x-ray of the lumbosacral spine. He will continue Vicodin as needed for the time being. 3. Hypertension. Today his blood pressure was high. EKG was obtained and showed normal sinus rhythm. Nonspecific T wave changes. Ventricular rate was 78 beats per minute. No significant changes from previous EKG done on August 08, 2008. It was decided to restart lisinopril. He will take 10 mg by mouth daily. He needs to lose weight. Blood pressure goals should be less than 130/80. He should let me know if there are side effects or intolerance to Lisinopril therapy. 4. Hypokalemia. Patient was noted to have low potassium when he went to [facility]. He is asymptomatic. We will check electrolytes today. 5. Leukocytosis. His WBC was 14 at [facility]. Need to repeat complete blood count. There is no evidence of infection, clinically. 6. Lipoma on the anterior abdominal wall right lower quadrant. Refer him to Dr. Lieberman. 7. Mass in the urinary bladder. Patient needs cystoscopy. I spoke with Nell office who has agreed to evaluate patient tomorrow at the [facility]. I appreciate Dr. Camejo consultation. We will follow his recommendation. 8. Tingling, numbness in the right shoulder with pain. We will check right shoulder x-ray. At the same time, we will get cervical spine x-ray. Patient will be notified when we get the x-ray results. For the time being he should continue Vicodin as needed. 9. Tobacco use. Discussed with him about smoking cessation. He is not ready to quit completely. We will get a chest x-ray. 10. Immunization. Patient was given Adacel for booster. He declined influenza immunization. All questions answered. Return to the clinic in two weeks for follow up. Today's studies Complete blood count, basic metabolic profile, sedimentation rate, vitamin B 12, folate, EKG, chest x-ray, lumbosacral spine, cervical spine and right shoulder x-ray. Time spent 40 minutes. More than half the time was spent in counseling, coordination of care and reviewing results CHIEF COMPLAINT/REASON FOR VISIT Post hospital check. HISTORY OF PRESENT ILLNESS Mr. Salazar is a 60 year-old white man who came in today for posthospital check. He went to [facility] emergency room on February 06, 2010 because of back pain and pain in the right lower abdomen. At that time he was also noted to have blood in the urine, urinary urgency. Patient was found to have mass in urinary bladder. Advised him to see me for further evaluation management. There was no recurrent hematuria. There was no dysuria. He does not have any other bleeding. Denies hematemesis, melena or rectal bleeding. He usually has bowel movements. Once in awhile he has constipation. It all started pain in the low back and right flank area, both anterior and posterior aspect started a couple of weeks ago and it has increased in intensity last week and he decided to go to the emergency room. He also noticed weight loss approximately 30 pounds in one year. I reviewed record from [facility]. He had a CT scan which showed normal liver, gallbladder, biliary tree, pancreas, spleen and adrenal glands. There is 3 cm cysts in the right kidney otherwise no evidence of pyelonephritis, hydronephrosis or pancreatitis. There was no evidence of appendicitis, there was no evidence of distended bowel. Ureters were normal in size without evidence of stone. Prostate is enlarged with small calcification. There is 1.5 cm soft tissue abnormality of left posterior bladder wall surrounded by urine near the site of left ureteral vesicle junction. Bladder wall tumor or polypoid abnormalities are differential diagnoses. It was suggested to have cystoscopy. There was no free air, inflammatory changes. Then he had a right upper quadrant abdominal ultrasound on February 07, 2010 showed right kidney cysts, otherwise negative right upper quadrant abdominal ultrasound. I reviewed laboratory results. He has elevated WBC, 14, slightly low potassium 3.5, lipase, Mylase liver profile, UA were negative. Patient was given Vicodin 5 x 500 mg and advised him to take 1 to 2 tablets every four to six hours as needed. CURRENT MEDICATIONS Post-visit Medication Reconciliation Reviewed and updated as per the EMR. ALLERGIES Reviewed and updated as per the EMR. SYSTEMS REVIEW As per the history of present illness. He is also complaining of pain in the right shoulder associated with tingling, numbness sensation for about six months. He cannot sleep on the right side anymore because of pain. He also noticed some back pain. There was no recent injury or trauma. Other systems are reviewed and are negative. It should be noted that the patient has hypertension. He was given lisinopril when I saw him on August 08, 2008. Patient took it for awhile then he did not come back for follow up and he did not get medication refills. Discussed with him about hypertension management. We need to restart medication to control his blood pressure. He did not have side effects while he was taking lisinopril. PAST MEDICAL/SURGICAL HISTORY Reviewed as per the EMR. PREVENTIVE SERVICES Reviewed as per the EMR. VITAL SIGNS Reviewed and updated as per the EMR. PHYSICAL EXAM AREA EXAM TEXT GENERAL Patient is sitting with no distress. Able to talk without interruption. HEAD No facial rash, asymmetry or sinus tenderness. EYES PERRLA, EOMI. No pallor, icterus or conjunctivitis. Status-post bilateral cataract extraction. ENT No nasal congestion, discharge or bleeding. There is no ear infection. Normal tympanic membrane. No mastoid tenderness. Tongue is moist, midline. No oral lesion or dehydration. LYMPH NODES There was no cervical or supraclavicular lymphadenopathy. HEART Regular rhythm. There is no S3, gallop, no obvious murmur. LUNGS Normal respiratory effort. Clear to auscultation. Normal percussion. ABDOMEN Moves with respiration. Bowel sounds present. Soft. No rebound, tenderness, guarding or rigidity. I could not feel internal organs. Patient has subcutaneous lipoma located on the anterior abdominal wall right lower quadrant with some tenderness. SPINE There was no spinous tenderness or paravertebral mass. EXTREMITIES No clubbing, cyanosis, edema, infection, or calf tenderness. GAIT No abnormal gait. MENTAL Alert and oriented x 3. Normal mood and affect. NEURO Grossly nonfocal exam. PP/kmk Signed Riley Sanchez M.D. Internal Medicine Electronically Signed By:RILEY SANCHEZ MD On 03/19/2010 09:07 am Modified by:RILEY SANCHEZ MD On 03/19/2010 09:07 am Source: [facility] MHSDOLBEYNONRADSYS Document Id: [id number] CLOSER documented in this encounter Miscellaneous Notes Miscellaneous - Riley Sanchez M.D. - 02/13/2010 9:06 AM CDT Reminder Msg Document Contains Addenda Addendum by DANYELLE NIXON on 15 February 2010 10:04:04 CDT Patient has appointment todaty will give copyof this information From: RILEY SANCHEZ MD To: DANYELLE NIXON Sent: 02/13/2010 09:06:07 CDT ! Show up: 02/13/2010 09:05:00 CDT Subject: Reminder Msg Actions: Notify patient of results Due Date/Time: 02/13/2010 09:05:00 CDT Source: [facility] Share[employer] Document Id: [id number] Miscellaneous - Riley Sanchez M.D. - 02/12/2010 4:11 PM CDT Ambulatory Patient Summary [address] [id number] Visit Information Name: SEVEN SALAZAR Current Date: 02/12/2010 16:11:26 Primary Care Provider: RILEY SANCHEZ MD Your Medications Here is a list of your medications. It is important to take your medications as directed. Use a pillbox or chart to help remind you to take your medications. Please let your doctor or nurse know if you have problems taking your medications. 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 Localization-Related (Focal) (Partial) Epilepsy and Epileptic Syndromes with Complex Partial Seizures, without Mention of Intractable Epilepsy Active 03/23/2004 Unspecified Essential Hypertension Active 03/23/2004 HTN [Hypertension] Active 02/12/2010 Abdominal pain RLQ Active 02/12/2010 Tobacco use Active 02/12/2010 Lipoma of skin and subcutaneous tissue Active 02/12/2010 Bladder, mass Active 02/12/2010 Leukocytosis Active 02/12/2010 Hypokalemia Active 02/12/2010 Your Recommendations We want to make sure [...] Diabetes and/or Vascular: LDL every 1 year 02/12/2010 Screening Colonoscopy or Flex Sig or Barium Enema or Occult Blood X3 02/12/2010 Checks for signs of cancer of the colon. Lipid Panel every 5 years Age 20-75 02/12/2010 Checks blood for good (HDL) and bad (LDL) cholesterol. Know your numbers, they are one indicator of your risk for heart attack and stroke. Vaccine: Flu every 1 year 02/12/2010 Immunization to help prevent you from getting the flu strain expected to be a problem for that year's flu season. Vaccine: Tetanus every 10 years 02/12/2010 Immunization to help prevent you from getting the seriousdisease Tetanus (Lockjaw). Your Upcoming Appointments Date Time Location Reason Provider 02/13/2010 13:20 [facility] Surgeon lipoma abdomen RLQ area Ivan Lieberman MD 03/01/2010 14:00 [facility] PM&R BACK PAIN R/SHOULDER NUMB TINGLING Fernando DEWEY, Ivan Padilla Your Goals/Additional instructions: Source: [facility] POWERCHART Document Id: [id number] Miscellaneous - Riley Sanchez M.D. - 02/12/2010 4:11 PM CDT Ambulatory Depart Summary [address] [id number] Visit Information Name: SILAS SALAZAREL FABRICE Current Date: 02/12/2010 16:11:25 Primary Care Provider: RILEY SANCHEZ MD SEVEN SALAZAR has been given the following list of medications: Your Medications It is important to take your medications as directed. Use a pill box or chart to help remind you to take your medications. Please let your doctor or nurse know if you have problems taking your medications. Medication/Strength Dose Route Frequency Indications/Special Instructions/Comments acetaminophen-hydrocodone (acetaminophen-hydrocodone 500 mg-5 mg oral tablet) 1 tab(s) Oral every 4 hours as needed for Pain lisinopril (lisinopril 10 mg oral tablet) 10 mg Oral once a day Additional Information: Yes - Current list of reconciled medications is provided and explained to the patient and/or family, guardian/caregiver. Source: [facility] Share[employer] Document Id: [id number] Miscellaneous - Danyelle Nixon, L.P.N. - 02/12/2010 1:56 PM CDT Ambulatory Vitals Height Weight Ambulatory Vitals Height Weight Entered On: 02/12/2010 13:57 CDT Performed On: 02/12/2010 13:56 CDT by DANYELLE NIXON/Ht/Wt Systolic Blood Pressure: 168mmHg (>HHI) Diastolic Blood Pressure: 86mmHg NIBP Mean: 113mmHg BP Location: Left upper extremity DANYELLE NIXON - 02/12/2010 13:56 CDT [facility] Document Id: [id number] CDT!6 Miscellaneous - Danyelle Nixon L.P.N. - 02/12/2010 1:51 PM CDT Adult Hole Filler Intake/History Adult Hole Filler Intake/History Entered On: 02/12/2010 13:56 CDT Performed On: 02/12/2010 13:51 CDT by DANYELLE NIXON Intake Chief Complaint: test results LMP Date: N/A Temperature Core: 37.3C(Converted to: 99.1DegF) Peripheral Pulse Rate: 80/min Respiratory Rate: 20/min Systolic Blood Pressure: 162mmHg (>HHI) Diastolic Blood Pressure: 92mmHg (>HHI) NIBP Mean: 115mmHg BP Location: Left upper extremity Actual Weight: 101.400kg(Converted to: 223lb 9oz) Dosing Weight Clinic: 101.40kg DANYELLE NIXON - 02/12/2010 13:51 CDT Subjective Pain Symptoms: Yes DANYELLE NIXON - 02/12/2010 13:51 CDT Pain Pain Assessment Grid Pain 1 Location: Lower back (Comment: right side , lower back( internal and lower back) [DANYELLE NIXON 02/12/2010 13:51 CDT] ) DANYELLE NIXON - 02/12/2010 13:51 CDT Dependent Habits Tobacco Use/Currently Using: Yes Tobacco Use/Advised to Quit: Yes DANYELLE NIXON 02/12/2010 13:51 CDT Tobacco Use Grid Type: Cigarettes Cigarette Use Packs/Day: 1.0 Last Use: today DANYELLE NIXON - 02/12/2010 13:51 CDT Alcohol Use: Yes DANYELLE NIXON 02/12/2010 13:51 CDT Caffeine Use Grid Caffeine Use: Current Type: Coffee, Tea Frequency: Daily Amount: 2 cup/day Last Use: today ADNYELLE NIXON - 02/12/2010 13:51 CDT Allergies Allergies (Active) NKA Estimated Onset Date: Unspecified ; Created By: DANYELLE NIXON; Reaction Status: Active ; Category:Drug ; Substance: NKA ; Type: Allergy ; Updated By: DANYELLE NIXON; Reviewed Date: 02/12/2010 13:51 CDT Source: [facility] POWERCHART Document Id: [id number] CDT!35 documented in this encounter Plan of Treatment Upcoming Encounters Date Type Specialty Care Team Description 04/12/2022 Office Visit Cardiovascular Disease Simone Gooden AP RN, C.N.P. [address] [phone] (Wo rk) documented as of this encounter Procedures Procedure Name Priority Date/Time Associated Diagnosis Comme nts DX SHOULDER RIGHT Routine 02/12/2010 2:41 PM Resu lts for this 2+ VIEWS CDT procedure are i n the results section. DX LUMBAR SPINE 2-3 Routine 02/12/2010 2:41 PM Re sults for this VIEWS CDT procedure are i n the results section. DX CERVICAL SPINE Routine 02/12/2010 2:41 PM Resu lts for this 4-5 VIEWS CDT procedure are i n the results section. DX CHEST AP OR PA Routine 02/12/2010 2:41 PM Resu lts for this AND LATERAL 2 VIEWS CDT procedur e are in the results section. documented in this encounter Results DX Cervical Spine 4-5 Views (02/12/2010 2:41 PM CDT) Anatomical Region Laterality Modality Cervical Spine N/A Radiographic Imaging Specimen (Source) Anatomical Collection Method Collection Time Re ceived Time Location / / Volume Laterality 02/12/2010 2:41 PM CDT Addenda Addendum by Provider, Javid Samson o n 02/12/2010 2:41 PM CDT RAD^^^OW XR Cervical Spine 4 views 02/12/2010 14:41:00 Impressions 02/12/2010 3:37 PM CDT 1. Moderately advanced degenerative disc changes, C5-C6 and C6-C7 levels as described above. 2. 2.2 cm calcific density posterior to the spinous process of C5 and C6, which may represent sequelae from re mote trauma. Clinical correlation is necessary. Narrative 02/12/2010 3:37 PM CDT Four views of the cervical spine demonst rate narrowing of the C5-C6 and C6-C7 intervertebral disc spaces, wh ere moderate anterior osteophytes are also noted. There are no acute fractures. The prevertebral soft tissues appear normal. There is a 2.2 cm calcification posterior to the spinous p rocess of C5 and C6, which may represent sequelae from a remote fractur e or calcification of the interspinous ligament. The odontoid is p oorly visualized on the AP view due to positioning and the patient' s teeth. ?? Procedure Note Alexis Hall M.D. / Provider, Frances gomez M.D. - 09/26/2016 Four views of the cervical spine demonst rate narrowing of the C5-C6 and C6-C7 intervertebral disc spaces, wh ere moderate anterior osteophytes are also noted. There are no acute fractures. The prevertebral soft tissues appear normal. There is a 2.2 cm calcification posterior to the spinous p rocess of C5 and C6, which may represent sequelae from a remote fractur e or calcification of the interspinous ligament. The odontoid is p oorly visualized on the AP view due to positioning and the patient' s teeth. IMPRESSION: 1. Moderately advanced degenerative disc changes, C5-C6 and C6-C7 levels as described above. 2. 2.2 cm calcific density posterior to the spinous process of C5 and C6, which may represent sequelae from re mote trauma. Clinical correlation is necessary. Romel Byrd(R)(M) IMG DIAGNOSTIC IMAGING PROCE DURES DX Lumbar Spine 2-3 Views (02/12/2010 2:41 PM CDT) Anatomical Region Laterality Modality Lumbar Spine N/A Radiographic Imaging Specimen (Source) Anatomical Collection Method Collection Time Re ceived Time Location / / Volume Laterality 02/12/2010 2:41 PM CDT Addenda Addendum by Provider, Javid Samson 02/12/2010 2:41 PM CDT RAD^^^OW XR Lumbosacral Spine 02/12/2010 14:41:00 Impressions 02/12/2010 3:38 PM CDT 1. Moderate degenerative disc disease, L 3-L4 through L5-S1 levels as described above. 2. No acute pathology. Narrative 02/12/2010 3:38 PM CDT Three views of the lumbar spine demonstr ate a grade 1 anterolisthesis of L4 on L5, likely degenerative in natu re, as well as mild narrowing of the L3-L4 through L5-S1 disc spaces. Small anterior osteophytes are identified from L3 through L5. There are mild sclerotic degenerative changes of the facet joints from L3-L4 t hrough L5-S1. ?? The pedicles appear normal. There are no abnormal paraspinal soft tissue masses. There are no acute fractu res. ?? Procedure Note Alexis Hall M.D. / Frances Moctezuma M.D. - 09/26/2016 Three views of the lumbar spine demonstr ate a grade 1 anterolisthesis of L4 on L5, likely degenerative in natu re, as well as mild narrowing of the L3-L4 through L5-S1 disc spaces. Small anterior osteophytes are identified from L3 through L5. There are mild sclerotic degenerative changes of the facet joints from L3-L4 t hrough L5-S1. The pedicles appear normal. There are no abnormal paraspinal soft tissue masses. There are no acute fractu res. IMPRESSION: 1. Moderate degenerative disc disease, L 3-L4 through L5-S1 levels as described above. 2. No acute pathology. Romel Byrd(Denny)(M) IMG DIAGNOSTIC IMAGING PROCE DURES DX Shoulder Right 2+ Views (02/12/2010 2:41 PM CDT) Anatomical Region Laterality Modality Upper Extremity, Shoulder Right Radiographic I maging Specimen (Source) Anatomical Collection Method Collection Time Re ceived Time Location / / Volume Laterality 02/12/2010 2:41 PM CDT Addenda Addendum by Provider, Javid Samson 02/12/2010 2:41 PM CDT RAD^^^OW XR Shoulder Right 2 or more views 02/12/2010 14:41:00 Impressions 02/12/2010 3:34 PM CDT Moderately advanced erosive degenerative changes of the right glenohumeral joint as described ab jacqueline. Narrative 02/12/2010 3:34 PM CDT Three views of the right shoulder demons trate advanced sclerotic degenerative changes of the glenohumeral joint, with flattening of the medial humeral head, as well as the tj oid process, consistent with disarticulation. There are no acute frac tures or dislocations. Moderate degenerative changes of the AC joint includes small anterior osteophytes. The surrounding soft tissue s appear normal, with the exception of a 1.4 cm calcific density a long the anterior joint space, which may represent a loose body. ?? Procedure Note Alexis Hall M.D. / Provider, Frances gomez M.D. - 09/26/2016 Three views of the right shoulder demons trate advanced sclerotic degenerative changes of the glenohumeral joint, with flattening of the medial humeral head, as well as the tj oid process, consistent with disarticulation. There are no acute frac tures or dislocations. Moderate degenerative changes of the AC joint includes small anterior osteophytes. The surrounding soft tissue s appear normal, with the exception of a 1.4 cm calcific density a long the anterior joint space, which may represent a loose body. IMPRESSION: Moderately advanced erosive degenerative changes of the right glenohumeral joint as described ab ove. Romel SandraT.(R)(M) IMG DIAGNOSTIC IMAGING PROCE DURES DX Chest AP or PA and Lateral 2 Views (02/12/2010 2:41 PM CDT) Anatomical Region Laterality Modality Chest N/A Radiographic Imaging Specimen (Source) Anatomical Collection Method Collection Time Re ceived Time Location / / Volume Laterality 02/12/2010 2:41 PM CDT Addenda Addendum by Provider, Javid Samson o n 02/12/2010 2:41 PM CDT RAD^^^OW XR Chest 2 Views 02/12/2010 14:41:00 Impressions 02/12/2010 3:32 PM CDT Normal chest. Narrative 02/12/2010 3:32 PM CDT PA and lateral views of the chest were o btained, demonstrating the heart and pulmonary vasculature to be wi thin normal limits. The lungs are clear. ?? Procedure Note Alexis Hall M.D. / Provider, Frances gomez M.D. - 09/26/2016 PA and lateral views of the chest were o btained, demonstrating the heart and pulmonary vasculature to be wi thin normal limits. The lungs are clear. IMPRESSION: Normal chest. Romel SandraTBhavesh(R)(M) IMG DIAGNOSTIC IMAGING PROCE DURES documented in this encounter Visit Diagnoses Not on filedocumented in this encounter
--- OUTSIDE RECORDS SUMMARY | 2022-03-29 08:01 | XMS_ITS | Encounter Summary ---
:1950 Author Organization [facility] Address [address] [place] [address] Care Team Providers Name Role Phone Unavailable Primary Care Provider Unavailable Encounter Details Date Type Department Care Team Description 03/09/2010 Hospital Encounter HX [facility] FB Riley Jimenez M.D. [address] [facility], [facility] [address] [phone] Social History Tobacco Use Types Packs/Day [...] week 04/16/2019 How often do you attend oriental orthodox or religion services? 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 - 03/09/2010 12:00 AM CDT [id number] IMPRESSION / REPORT / PLAN 1. Status-post excision of lipoma from anterior abdominal wall near the right lower quadrant. Probably he may have some hematoma of that area. He will follow up with Dr. Lieberman on Friday. 2. 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 He saw Dr. Camejo and he is scheduled to have intravesical BCG therapy. Advised him to quit smoking. He will follow up with Dr. Camejo. 3. Back pain with degenerative disc disease. Patient will follow up with Dr. King. He has an appointment on March 23, 2010. 4. Hypertension. Repeated blood pressure was 146/80 on the left arm. He does not have side effects from Lisinopril. We need to keep blood pressure less than 130/80. It is better if he can quit smoking. Discussed with him about different pharmacological therapy. It was decided to start Hydrochlorothiazide. He will take 25 mg daily in the morning. I reviewed with him about side effects including but not limited to low blood pressure, dizziness, lightheadedness, electrolyte imbalance and gouty arthritis. He should call me if there is side effects or intolerance. We need to check blood pressure and basic metabolic profile in two weeks or so. Patient agreed with plan. 5. Tobacco use. Patient quit smoking cold turkey in the past. He will discuss about smoking cessation again at next visit. 6. Immunization. Discussed with him about influenza immunization. Patient does not want to have a flu shot because he has never had the flu and has never had the flu vaccine in the past. All questions answered. Return to the clinic in two weeks. We need to check basic metabolic profile at that time. Time spent 25 minutes. More than half the time was spent in counseling, coordination of care. CHIEF COMPLAINT/REASON FOR VISIT Recheck. HISTORY OF PRESENT ILLNESS This is a 60 year-old white male who came in today for follow up. He had a lipoma excision from anterior abdominal wall near the right lower quadrant and excision of bladder tumor on February 19, 2010 at [facility]. Patient is doing fine following after surgery except for pain. He is going to see Dr. Lieberman on Friday for follow up. Abdominal incision scar is healed. No bleeding or discharge. He has been eating. No nausea, vomiting or abdominal pain. Patient has back pain. He is going to see Dr. King on March 23 2010. I reviewed pathology report, he has bladder tumor on the left lateral wall. Patient has back pain, he is going to see Dr. King on March 23, 2010. I reviewed pathology report. He has bladder tumor on the left lateral wall. It was not invasive papillary urothelial (transitional cell carcinoma) low grade which is equivalent to grade I of III urothelial carcinoma. There was no evidence of associated flat carcinoma in situ. An excision of subcutaneous tissue on anterior abdominal wall was lipoma. There was no evidence of atypia or malignancy. Patient was scheduled to have intravesical immunotherapy with BCG. Patient smokes tobacco he smokes one pack a day. I strongly advised him to quit smoking because of bladder cancer. Discussed with him about different options. Patient said he quit smoking tobacco in the past. He did it cold turkey. He would like to discuss next time. Today he is not ready. Patient continues to have back pain. Advised him to keep appointment to see Dr. King. He is taking medications for hypertension. So far no side effects. There was no chest pain, shortness of breath, dizziness or lightheadedness. There was no skin rash, lip swelling or tongue swelling. CURRENT MEDICATIONS Post-visit Medication Reconciliation Reviewed and [...] moist, midline. No oral lesion or dehydration. HEART Regular rhythm. There is no S3, gallop, no obvious murmur. LUNGS Normal respiratory effort. Clear to auscultation. Normal percussion. ABDOMEN Patient has a scar on the right anterior abdominal wall. There was no bleeding or discharge. He has a little bit of tenderness probably due to hematoma. PP/kmk Signed Riley Sanchez M.D. 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 - 03/09/2010 3:03 PM CDT Ambulatory Patient Summary [address] [address] Visit Information Name: SEVEN SALAZAR Current Date: 03/09/2010 15:03:18 Primary Care Provider: RILEY SANCHEZ MD Your Medications Here is a list of your medications. It is important to take your medications as directed. Use a pillbox or chart to help remind you to take your medications. Please let your doctor or nurse know if you have problems taking your medications. Medication/Strength Dose Route Frequency Indications/Special Instructions/Comments hydrochlorothiazide (hydrochlorothiazide 25 mg oral tablet) 25 mg Oral once a day (in the morning) lisinopril (lisinopril 20 mg oral tablet) 20 [...] of Lateral Wall of Urinary Bladder Active Obesity NOS Active 02/15/2010 Elevated Sedimentation Rate Active 02/12/2010 Degenerative disc disease, lumbar Active 02/12/2010 Per X-Ray Degenerative disc disease, cervical* Active 02/12/2010 Per X-Ray Osteoarthrosis, Localized, Primary, Involving Shoulder Region Active 02/12/2010 Per X-Ray Your Recommendations We want to make sure [...] Diabetes and/or Vascular: LDL every 1 year 03/09/2010 Screening Colonoscopy or Flex Sig or Barium Enema or Occult Blood X3 03/09/2010 Checks for signs of cancer of the colon. Lipid Panel every 5 years Age 20-75 03/09/2010 Checks blood for good (HDL) and bad (LDL) cholesterol. Know your numbers, they are one indicator of your risk for heart attack and stroke. Vaccine: Flu every 1 year 03/09/2010 Immunization to help prevent you from getting the flu strain expected to be a problem for that year's flu season. Your Upcoming Appointments Date Time Location Reason Provider 03/12/2010 16:00 [facility] Surgeon Ivan Fernández MD 03/12/2010 16:00 [facility] Surgeon nae/left message to come at 4:00 [facility] Ivan Lieberman MD 03/19/2010 09:15 [facility] Urology per Jodie coming at 9:00 UA w/micro first per Jatinder Mantilla MD 03/19/2010 10:00 [facility] Lab UA W/MICRO B/4 APPT FABIÁN 03/23/2010 09:45 [facility] PM&R BACK PAIN R/SHOULDER NUMB TINGLING Ivan King MD 03/26/2010 09:00 [facility] Urology bcg per Jodie UA w/micro first per Jatinder Mantilla MD 03/26/2010 09:30 [facility] Lab UA W/MICRO B/4 APPT FABIÁN 04/02/2010 08:30 [facility] Lab TEST 04/02/2010 09:00 [facility] Urology bcg per Jodie after UA w/micro /coming at 9:00 Jatinder Camejo MD 04/09/2010 08:30 [facility] Lab TEST 04/09/2010 09:00 [facility] Urology bcg per Jodie after UA w/Jatinder Perdomo MD 04/16/2010 08:10 [facility] Lab TEST 04/16/2010 09:00 [facility] Urology bcg per Jodie after UA w/Jatinder Perdomo MD 04/23/2010 08:10 [facility] Lab TEST 04/23/2010 09:00 [facility] Urology bcg per Jodie after UA w/Jatinder Perdomo MD Your Goals/Additional instructions: Source: [facility] POWERCHART Document Id: [id number] Electronically signed by Conversion, [facility] Dramatic Director [id number] at 10/07/2016 3:57 AM CDT Riley Rangel M.D. - 03/09/2010 3:03 PM CDT Ambulatory Depart Summary [address] [address] Visit Information Name: SEVEN SALAZAR Current Date: 03/09/2010 15:03:17 Primary Care Provider: RILEY SANCHEZ MD SEVEN SALAZAR has been given the following list of medications: Your Medications It is important to take your medications as directed. Use a pill box or chart to help remind you to take your medications. Please let your doctor or nurse know if you have problems taking your medications. Medication/Strength Dose Route Frequency Indications/Special Instructions/Comments hydrochlorothiazide (hydrochlorothiazide 25 mg oral tablet) 25 mg Oral once a day (in the morning) lisinopril (lisinopril 20 mg oral tablet) 20 mg Oral once a day (in the morning) acetaminophen-hydrocodone (acetaminophen-hydrocodone 500 mg-5 mg oral tablet) 1 tab(s) Oral every 4 hours as needed for Pain Additional Information: Yes - Current list of reconciled medications is provided and explained to the patient and/or family, guardian/caregiver. Source: [facility] POWERCHART Document Id: [id number] Electronically signed by Conversion, [facility] Dramatic Director [id number] at 10/07/2016 3:57 AM CDT Riley Rangel M.D. - 03/09/2010 2:52 PM CDT Ambulatory Vitals Height Weight Ambulatory Vitals Height Weight Entered On: 03/09/2010 14:55 CDT Performed On: 03/09/2010 14:52 CDT by RILEY SANCHEZ MD Vitals/Ht/Wt Peripheral Pulse Rate: 84/min Systolic Blood Pressure: 146mmHg (HI) Diastolic Blood Pressure: 80mmHg NIBP Mean: 102mmHg BP Location: Left upper extremity Heart Rhythm: Regular RILEY SANCHEZ MD - 03/09/2010 14:52 CDT Source: [facility] mSpotCHART Document Id: [id number] CDT!8 Miscellaneous - Conversion, Historical Provider Ser - 03/09/2010 2:35 PM CDT Adult Merchandise Flow Associate Intake/History Adult Merchandise Flow Associate Intake/History Entered On: 03/09/2010 14:41 CDT Performed On: 03/09/2010 14:35 CDT by PRACHI GRIMM Intake Chief Complaint: recheck Temperature Core: 36.8C(Converted to: 98.2DegF) Peripheral Pulse Rate: 70/min Respiratory Rate: 16/min Systolic Blood Pressure: 120mmHg Diastolic Blood Pressure: 84mmHg NIBP Mean: 96mmHg BP Location: Left upper extremity SpO2: 99% Heart Rhythm: Regular Oxygen Therapy: Room air Actual Weight: 100.000kg(Converted to: 220lb 7oz) Weight Source: Standing scale Dosing Weight Clinic: 100.00kg PRACHI GRIMM - 03/09/2010 14:35 CDT Subjective Pain Symptoms: No PRACHI GRIMM - 03/09/2010 14:35 CDT Dependent Habits Tobacco Use/Currently Using: Yes Exposure to Tobacco Smoke: Patient smokes PRACHI GRIMM - 03/09/2010 14:35 CDT Tobacco Use Grid Type: Cigarettes Cigarette Use Packs/Day: 1.0 Last Use: today PRACHI GRIMM - 03/09/2010 14:35 CDT Alcohol Use: No PRACHI GRIMM - 03/09/2010 14:35 CDT Caffeine Use Grid Caffeine Use: Current Type: Coffee, Tea Frequency: Daily Amount: 2 cup/day Last Use: today PRACHI GRIMM - 03/09/2010 14:35 CDT Allergies Allergies (Active) NKA Estimated Onset Date: Unspecified ; Created By: SARAI NIXON; Reaction Status: Active ; Category:Drug ; Substance: NKA ; Type: Allergy ; Updated By: SARAI NIXON; Reviewed Date: 02/22/2010 8:31 CDT Source: [facility] POWERCHART Document Id: [id number] CDT!34 documented in this encounter Plan of Treatment Upcoming Encounters Date Type Specialty Care Team Description 04/12/2022 Office Visit Cardiovascular Disease Simone Gooden AP RN, C.N.P. [address] [phone] (Wo rk) documented as of this encounter Visit Diagnoses Not on filedocumented in this encounter
--- OUTSIDE RECORDS SUMMARY | 2022-03-29 08:01 | XMS_ITS | Encounter Summary ---
:1950 Author Organization [facility] Address [address] [place] [address] Care Team Providers Name Role Phone Unavailable Primary Care Provider Unavailable Encounter Details Date Type Department Care Team Description 02/22/2010 Hospital Encounter HX [facility] Tamika Camejo M.D. [address] [place] [phone] (Wo rk) Social History Tobacco [...] How often do you attend shinto or jew services? 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 - 02/22/2010 12:00 AM CDT [id number] CHIEF COMPLAINT/REASON FOR VISIT Surgical followup. HISTORY OF PRESENT ILLNESS This is a 60-year-old male who was found to have a bladder tumor on a recent CT scan. Earlier this week he underwent transurethral resection of the bladder tumor with random bladder biopsies. He returns today to review the results. He is accompanied by his son. He has done very well, but is looking forward to having the catheter removed. He also had an excision of abdominal wall lipoma. He states that this caused more pain and discomfort than did the bladder procedure. The bladder tumor was grade 1 of 3 urothelial carcinoma without evidence of invasion or associated carcinoma in situ. All the random bladder biopsies were negative for cancer or carcinoma in situ. 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 We spent approximately 25 minutes together and discussed the interpretation of the pathology report, followup protocols and the use of intravesical immunotherapy. He and his son are interested in proceeding with intravesical BCG. Both induction and maintenance therapy was explained. Potential risks, including infections and standard side effects were described. We anticipate starting this in 3-4 weeks after the bladder has had a chance to recover from the recent surgery. He would prefer to have the treatment done in [place] as that is where he lives and where he receives his primary care. Tamika Camejo M.D. [facility] Electronically Signed By:TAMIKA CAMEJO MD On 02/27/2010 10:51 AM Source: [facility] MHSDOLBEYNONRADSYS Document Id: [id number] documented in this encounter Miscellaneous Notes Miscellaneous - Tamika Camejo M.D. - 02/22/2010 9:05 AM CDT Ambulatory Patient Summary [address] [address] Visit Information Name: SEVEN SALAZAR Current Date: 02/22/2010 09:05:13 Primary Care Provider: RILEY SANCHEZ MD Your Medications Here is a list of your medications. It is important to take your medications as directed. Use a pillbox or chart to help remind you to take your medications. Please let your doctor or nurse know if you have problems taking your medications. Medication/Strength Dose Route Frequency Indications/Special Instructions/Comments ciprofloxacin (Cipro 500 mg oral tablet) 500 mg Oral every 12 hours lisinopril (lisinopril 20 mg oral tablet) 20 [...] Active 02/15/2010 Elevated Sedimentation Rate Active 02/12/2010 Your Recommendations We want to [...] Diabetes and/or Vascular: LDL every 1 year 02/22/2010 Screening Colonoscopy or Flex Sig or Barium Enema or Occult Blood X3 02/22/2010 Checks for signs of cancer of the colon. Lipid Panel every 5 years Age 20-75 02/22/2010 Checks blood for good (HDL) and bad (LDL) cholesterol. Know your numbers, they are one indicator of your risk for heart attack and stroke. Vaccine: Flu every 1 year 02/22/2010 Immunization to help prevent you from getting the flu strain expected to be a problem for that year's flu season. Your Upcoming Appointments Date Time Location Reason Provider 02/26/2010 14:45 [facility] Surgeon POSTOP EXC. OF LIPOMA Ivan Lieberman MD 02/26/2010 16:15 [facility] Lab lab 03/01/2010 14:00 [facility] PM&R BACK PAIN R/SHOULDER NUMB TINGLING Ivan King MD 03/01/2010 16:15 [facility] 401.9 Riley Sanchez MD Your Goals/Additional instructions: Source: [facility] WSN SystemsCHART Document Id: [id number] Electronically signed by Conversion, [facility] Agricultural Produce Packer [id number] at 10/06/2016 11:21 PM CDT Miscellaneous - Tamika Camejo M.D. - 02/22/2010 9:05 AM CDT Ambulatory Depart Summary [address] [address] Visit Information Name: SEVEN SALAZAR Current Date: 02/22/2010 09:05:12 Primary Care Provider: RILEY SANCHEZ MD CHRISSILASFRANKI AVINA has been given the following list of medications: Your Medications It is important to take your medications as directed. Use a pill box or chart to help remind you to take your medications. Please let your doctor or nurse know if you have problems taking your medications. Medication/Strength Dose Route Frequency Indications/Special Instructions/Comments ciprofloxacin (Cipro 500 mg oral tablet) 500 mg Oral every 12 hours lisinopril (lisinopril 20 mg oral tablet) 20 mg Oral once a day (in the morning) acetaminophen-hydrocodone (acetaminophen-hydrocodone 500 mg-5 mg oral tablet) 1 tab(s) Oral every 4 hours as needed for Pain Additional Information: Yes - Current list of reconciled medications is provided and explained to the patient and/or family, guardian/caregiver. Source: [facility] [employer] Document Id: [id number] Electronically signed by Conversion, [facility] Agricultural Produce Packer [id number] at 10/06/2016 11:21 PM CDT Miscellaneous - Prudencio Love, LBhaveshPBhaveshN. - 02/22/2010 8:32 AM CDT Adult Urgent Care Technician Intake/History Adult Urgent Care Technician Intake/History Entered On: 02/22/2010 8:34 CDT Performed On: 02/22/2010 8:32 CDT by PRUDENCIO LOVE Intake Chief Complaint: f/u after 02/19/10 surgery dc nichols Temperature Core: 37.3C(Converted to: 99.1DegF) Peripheral Pulse Rate: 84/min Systolic Blood Pressure: 134mmHg Diastolic Blood Pressure: 76mmHg NIBP Mean: 95mmHg BP Location: Right upper extremity PRUDENCIO LOVE - 02/22/2010 8:32 CDT Subjective Pain Symptoms: No PRUDENCIO LOVE - 02/22/2010 8:32 CDT Dependent Habits Tobacco Use/Currently Using: Yes Exposure to Tobacco Smoke: Patient smokes PRUDENCIO LOVE - 02/22/2010 8:32 CDT Tobacco Use Grid Type: Cigarettes Cigarette Use Packs/Day: 1.0 Last Use: today PRUDENCIO LOVE - 02/22/2010 8:32 CDT Caffeine Use Grid Caffeine Use: Current Type: Coffee, Tea Frequency: Daily Amount: 2 cup/day Last Use: today PRUDENCIO LOVE 02/22/2010 8:32 CDT Allergies Allergies (Active) NKA Estimated Onset Date: Unspecified ; Created By: SARAI NIXON; Reaction Status: Active ; Category:Drug ; Substance: NKA ; Type: Allergy ; Updated By: SARAI NIXON; Reviewed Date: 02/22/2010 8:31 CDT Source: [employer] Document Id: [id number] CDT!26 documented in this encounter Plan of Treatment Upcoming Encounters Date Type Specialty Care Team Description 04/12/2022 Office Visit Cardiovascular Disease Simone Gooden AP RN, C.N.P. [address] [phone] (Wo rk) documented as of this encounter Visit Diagnoses Not on filedocumented in this encounter
--- OUTSIDE RECORDS SUMMARY | 2022-03-29 08:01 | XMS_ITS | Encounter Summary ---
:1950 Author Organization [facility] Address [address] [place] [address] Care Team Providers Name Role Phone Unavailable Primary Care Provider Unavailable Encounter Details Date Type Department Care Team Description 03/12/2010 Hospital Encounter HX [facility] SURGEON Cristian [...] How often do you attend mormon or jehovah's witness services? 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 - 03/12/2010 12:00 AM CST [id number] IMPRESSION/REPORT/PLAN I would like to see him back in two weeks because the hematoma may liquify and need to be aspirated. CHIEF COMPLAINT/REASON FOR VISIT Followup after excision of lipoma, right flank. HISTORY OF PRESENT ILLNESS The patient returns today for followup after excision of an approximately 8 to 9 centimeter in diameter lipoma from his right flank on 02/19/2010. He says the pain he had from the lipoma is now gone. PHYSICAL EXAM He has a pretty good sized hematoma in the area which we have been following. The bruising that he had the last time I saw him has gone away. He does have this mass on that side where we removed the lipoma. RRB/nmd Signed Ivan Vazquez M.D. General Surgery Electronically Signed By:IVAN VAZQUEZ MD On 03/19/2010 04:58 PM Source: [facility] MHSDOLBEYNONRADSYS Document Id: [id number] [employer] OPERAT[employer] SUPERVISOR documented in this encounter Miscellaneous Notes Miscellaneous - Claude Alfaro L.P.NBhavesh - 03/12/2010 4:04 PM CST Adult Dinkey Brakeman Intake/History Adult Dinkey Brakeman Intake/History Entered On: 03/12/2010 16:05 [employer]AT[employer] SUPERVISOR Performed On: 03/12/2010 16:04 [employer]AT[employer] SUPERVISOR by CLAUDE ALFARO LPN Intake Chief Complaint: follow up lipoma Peripheral Pulse Rate: 80/min Systolic Blood Pressure: 120mmHg Diastolic Blood Pressure: 72mmHg NIBP Mean: 88mmHg BP Location: Right upper extremity Actual Weight: 100.100kg(Converted to: 220lb 11oz) Weight Source: Standing scale Dosing Weight Clinic: 100.10kg CLAUDE ALFARO LPN - 03/12/2010 16:04 [employer] SUPERVISOR Subjective Pain Symptoms: No CLAUDE ALFARO LPN - 03/12/2010 16:04 [employer] SUPERVISOR Dependent Habits Tobacco Use/Currently Using: Yes Exposure to Tobacco Smoke: Patient smokes CLAUDE ALFARO LPN - 03/12/2010 16:04 [employer] SUPERVISOR Tobacco Use Grid Type: Cigarettes Cigarette Use Packs/Day: 1.0 Last Use: today CLAUDE ALFARO LPN - 03/12/2010 16:04 [employer] SUPERVISOR Caffeine Use Grid Caffeine Use: Current Type: Coffee, Tea Frequency: Daily Amount: 2 cup/day Last Use: today CLAUDE ALFARO LPN - 03/12/2010 16:04 [employer] SUPERVISOR Allergies Allergies (Active) NKA Estimated Onset Date: Unspecified ; Created By: SARAI NIXON; Reaction Status: Active ; Category:Drug ; Substance: NKA ; Type: Allergy ; Updated By: SARAI NIXON; Reviewed Date: 02/22/2010 8:31 CDT Source: [facility] POWERCHART Document Id: [id number] [employer] SUPERVISOR!28 [employer] SUPERVISOR documented in this encounter Plan of Treatment Upcoming Encounters Date Type Specialty Care Team Description 04/12/2022 Office Visit Cardiovascular Disease Simone Gooden AP RN, C.N.P. [address] [phone] (Wo rk) documented as of this encounter Visit Diagnoses Not on filedocumented in this encounter
--- OUTSIDE RECORDS SUMMARY | 2022-03-29 08:01 | XMS_ITS | Encounter Summary ---
:1950 Author Organization [facility] Address [address] [place] [address] Care Team Providers Name Role Phone Unavailable Primary Care Provider Unavailable Encounter Details Date Type Department Care Team Description 02/13/2010 Hospital Encounter [facility]X [facility] Tamika Camejo M.D. [address] [place] [address] (Wo rk) Social History [...] How often do you attend christian or worship services? 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 - 02/13/2010 12:00 AM CDT [id number] CHIEF COMPLAINT / REASON FOR VISIT CYSTOSCOPY REPORT INDICATION Bladder tumor found on CT scan. INSTRUMENT Olympus flexible cystoscope. ANESTHESIA 2% aqueous lidocaine jelly introduced into the urethra. PROCEDURE The patient was placed in a supine position. The genitalia were prepped and draped sterilely. The urethra was anesthetized with 2% aqueous lidocaine jelly. The cystoscope was advanced into the urethra. FINDINGS Meatus: Normal. Urethra: No strictures noted. Bulbous urethra and membranous urethra are normal. Prostate: Length: 3 cm. Lateral lobes: With hypertrophy and minimal obstruction. Middle lobe: Absent. Bladder neck: Slightly raised but not truly obstructing. Bladder: Residual urine: Minimal. Ureteral orifices: Singular bilaterally, normal position on the trigone, slit-like in configuration and with clear efflux of urine noted bilaterally. Tumors: Approximately a centimeter lateral to the left ureteral orifice is a tumor. Cystoscopically I would estimate the size of the tumor to be approximately 3 cm in greatest diameter. This visually appears to be a low to mid grade tumor. It is not actively bleeding. It is on a relatively narrow stalk but is papillary in configuration, consistent with transitional cell carcinoma. There are occasional calcifications attached to it. Remainder of the bladder is free of additional stones, foreign bodies or exophytic lesions COMMENTS Uroflow was performed following cystoscopy. He voided 200 mL in 21 seconds. His peak flow was 13, mean flow 9 with a relatively normal to slightly slow shaped voiding curve. The procedure was well tolerated by the patient. He was discharged from the office in satisfactory condition. Post-cystoscopy instructions were reviewed with him. IMPRESSION / REPORT / PLAN 1) Bladder cancer arising from the left lateral wall. PLAN: See separately dictated evaluation and management of the same date. Tamika Camejo M.D. cer cc: Ivan Lieberman M.D. [facility] [address] [place] [address] Riley Sanchez M.D. [facility] [address] [place] [address] [facility] Ambulatory Surgery [address] [place] [address] Electronically Signed By:TAMIKA CAMEJO MD On 02/14/2010 10:46 AM Source: [facility] MHSDOLBEYNONRADSYS Document Id: [id number] Tamika Camejo M.D. - 02/13/2010 12:00 AM CDT [id number] CHIEF COMPLAINT/REASON FOR VISIT Bladder tumor found on CT scan. HISTORY OF PRESENT ILLNESS This is a 59-year-old male referred by Dr. Riley Sanchez for evaluation of a bladder mass. CT scan was performed on February 06, 2010, and he had a subsequent renal ultrasound on February 07, 2010. This was done for evaluation of right upper quadrant pain. The only other significant finding was lipoma in the right upper quadrant. For the last half a year or so, he has been having some irritative voiding symptoms. This includes nocturia to 2-3 times per night, some daytime frequency, urgency and urge incontinence. He is able to withstand the urgency for only a minute or two. If he does have some leakage, it is usually a significant volume, frequently enough for him to change his clothes. He has not had any gross hematuria. He has had occasional dysuria. His stream sometimes is weak, sometimes intermittent, and sometimes he has a sensation of incomplete emptying. The patient is a smoker. He has been smoking intermittently for 31 years. He estimates that he has never been more than 1 pack per day. CURRENT MEDICATIONS Reviewed and no changes per EMR. ALLERGIES Reviewed and no changes per EMR. PAST MEDICAL/SURGICAL HISTORY 1) History of stroke in 2003. 2) History of tobacco use. 3) History of lipoma. FAMILY HISTORY Father at 80 of liver cancer, mother at 92 of natural causes. One sister of liver and bone cancer at age 60. He has another brother who is age 65 in good health. SOCIAL HISTORY The patient is . He works at [employer] He has a [id number] smoking history. He rarely uses alcohol. He does not use recreational drugs. SYSTEMS REVIEW Please see Personal History form dated February 13, 2010. VITAL SIGNS TEMP: 37.1 degreesC PULSE: 80 SYSTOLIC: 140 DIASTOLIC: 72 PHYSICAL EXAM GENERAL: The patient is well nourished, well developed and in no apparent distress. There are no communication barriers. He is alert and oriented. HEAD: No abnormality of appearance. No facial abnormalities. ENT: No neck masses. THYROID: No thyroid enlargement. HEART: Regular rate and rhythm. Abdominal aorta is not palpable. Femoral pulses are 2+ and equal bilaterally. No peripheral cyanosis or edema. LUNGS: Normal respiratory movements. No shortness of breath. ABDOMEN: Mildly obese. No guarding. No tenderness. No ascites. No hepatosplenomegaly. Kidneys are not palpable. Bladder size is normal. There are no ventral hernias. There are no inguinal hernias. A lipoma is present in the right lateral wall toward the right upper quadrant of the abdomen. There is no CVA tenderness. RECTUM: Perirectal region is unremarkable without evidence of condyloma, skin tags or other lesions. Rectal sphincter tone is normal. There are no rectal masses. PROSTATE: Prostate is approximately 35-40 grams in size. It is smooth in consistency. It is symmetrical. Prostate is without nodules or tenderness. Seminal vesicles are normal. GENITALIA: Penis: No discharge, no masses and no plaques. Meatus is normally located on the glans penis, there is no meatal scarring and it is of normal size. Penis is circumcised. Scrotum: No rashes. No hydroceles or spermatoceles are present. No palpable varicocele is noted. Testes: Both testes are descended. They are without masses or tenderness. Each testis is of normal size and consistency. Epididymides: Each epididymis is of normal size, without masses, without tenderness or signs of epididymitis. Both the right and left vas deferens are palpable. Perineum: Unremarkable. There are no obvious skin tags, condylomata or other lesions. SPINE: No spinal tenderness. No costovertebral angle tenderness. IMPRESSION / REPORT / PLAN IMAGING STUDIES: CT scan and renal ultrasound were performed on February 06 and February 07 respectively. I have reviewed these films. Taken together, there is evidence of a tumor arising in the left lateral wall of the bladder. This is not associated with hydroureter or hydronephrosis. Incidentally noted is a benign-appearing cyst in the right kidney. For non-urological findings, I would refer the reader to the radiology report. Cystoscopy was accomplished today. See separately dictated report. This did demonstrate a roughly 2 to 3 cm tumor arising from the left lateral wall, in relatively close proximity to the left ureteral orifice. No additional tumors or foreign bodies were seen elsewhere in the bladder. The prostate was mildly enlarged with only partial obstruction. A uroflow was performed which was slightly slow, but not obstructive. 1) Bladder tumor arising from the left lateral wall. 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 2) Irritative voiding symptoms likely secondary to #1. 3) History of tobacco abuse. The patient, his son and I discussed the situation in detail. Radiographic and cystoscopic findings were explained. It was felt that the lesion in the right kidney was consistent with a simple cyst and does not warrant any additional followup. The tumor in the bladder is likely malignant and does deserve further treatment. I am recommending that we proceed with transurethral resection of the bladder tumor associated with some random bladder biopsies. I did inform them that there is a potential risk of a bladder perforation and that if this is extraperitoneal it can be treated with an indwelling Max catheter, but if it is intraperitoneal, it would require immediate surgery to fix it. This would be done on the same day if it were to be recognized. I advised them that there is a potential risk to the left ureteral orifice or the left ureteral tunnel as it goes through the bladder. If this does occur, we would place a ureteral stent to help facilitate healing. We did discuss the issues regarding 2 staging of bladder cancer. In other words, if it is superficial vs. if it involves the muscle or has gone through the bladder wall. We discussed difference in areas regarding followup, possibility of intravesical immunotherapy. The patient is already scheduled for excision of his lipoma by Dr. Ivan Lieberman at [facility] on Friday. That is also my operating time at [facility]. If there are no contraindications, I would like to proceed with his bladder surgery at the same time and under the same anesthetic. ADMINISTRATIVE BILLING Total Time: 45-50 minutes. Counseling Time: Approximately half this time, or slightly more, was spent counseling and coordinating care. Javid Valenzuela cc: Ivan Lieberman M.D. [facility] [address] [facility] [place] [address] [facility] Department of Ambulatory Surgery [address] [place] [address] Riley Sanchez M.D. [facility] [address] [facility] [place] [address] Electronically Signed By:TAMIKA CAMEJO MD On 02/14/2010 10:46 AM Source: [facility]SDOLBEYNONRADSYS Document Id: [id number] documented in this encounter Miscellaneous Notes Miscellaneous - Tamika Camejo M.D. - 02/13/2010 5:14 PM CDT Ambulatory Patient Summary [address] [address] Visit Information Name: SEVEN SALAZAR Current Date: 02/13/2010 17:14:06 Primary Care Provider: RILEY SANCHEZ MD Your [...] Diabetes and/or Vascular: LDL every 1 year 02/13/2010 Screening Colonoscopy or Flex Sig or Barium Enema or Occult Blood X3 02/13/2010 Checks for signs of cancer of the colon. Lipid Panel every 5 years Age 20-75 02/13/2010 Checks blood for good (HDL) and bad (LDL) cholesterol. Know your numbers, they are one indicator of your risk for heart attack and stroke. Vaccine: Flu every 1 year 02/13/2010 Immunization to help prevent you from getting the flu strain expected to be a problem for that year's flu season. Your Upcoming Appointments Date Time Location Reason Provider 02/15/2010 14:45 [facility] preop Riley Sanchez MD 03/01/2010 14:00 [facility] PM&R BACK PAIN R/SHOULDER NUMB TINGLING Fernando DEWEY, Ivan Padilla Your Goals/Additional instructions: [facility] Document Id: [id number] Electronically signed by Rivka [facility] Center[facility] Material Manager [id number] at 10/06/2016 11:21 PM CDT Miscellaneous - Tamika Camejo M.D. - 02/13/2010 5:14 PM CDT Ambulatory Depart Summary [address] [address] Visit Information Name: SEVEN SALAZAR Current Date: 02/13/2010 17:14:06 Primary Care Provider: RILEY SANCHEZ MD SEVEN [...] to the patient and/or family, guardian/caregiver. Source: [facility] POWERCHART Document Id: [id number] Miscellaneous - Prudencio Love L.P.N. - 02/13/2010 4:01 PM CDT Urology AUA/BPH Symptom Score Urology AUA/BPH Symptom Score Entered On: 02/13/2010 16:02 CDT Performed On: 02/13/2010 16:01 CDT by PRUDENCIO LOVE Urology AUA/BPH Symptom Score Emptying Bladder After Urinating: Not at all Urinate 2 Hours After Urinating: More than half the time Stop/Start Again When Urinating: About half the time Difficult to Postpone Urination: Almost always Weak Urinary Stream: About half the time Push/Strain to Begin Urination: Not at all Up to Urinate at Night: 3 times Total Symptom Score: 18 Feel About Urinary Condition: Mixed PRUDENCIO LOVE - 02/13/2010 16:01 CDT Source: [facility] POWERCHART Document Id: [id number] CDT!11 Miscellaneous - Prudencio Love L.P.N. - 02/13/2010 3:53 PM CDT Adult Area Operations Manager Intake/History Adult Area Operations Manager Intake/History Entered On: 02/13/2010 16:00 CDT Performed On: 02/13/2010 15:53 CDT by PRUDENCIO LOVE Intake Chief Complaint: question bladder tumor found on recent CT Urinary urgency the past few months. Temperature Core: 37.1C(Converted to: 98.8DegF) Peripheral Pulse Rate: 80/min Systolic Blood Pressure: 140mmHg Diastolic Blood Pressure: 72mmHg NIBP Mean: 95mmHg BP Location: Right upper extremity Heart Rhythm: Regular PRUDENCIO LOVE - 02/13/2010 15:53 CDT Subjective Pain Symptoms: Yes PRUDENCIO LOVE - 02/13/2010 15:53 CDT Pain Pain Assessment Grid Pain 1 Location: Abdomen Laterality: Right Intensity: 4 Time Pattern: Intermittent Onset: Sudden Quality: Aching PRUDENCIO LOVE - 02/13/2010 15:53 CDT Dependent Habits Tobacco Use/Currently Using: Yes Exposure to Tobacco Smoke: Patient smokes PRUDECNIO LOVE - 02/13/2010 15:53 CDT Tobacco Use Grid Type: Cigarettes Cigarette Use Packs/Day: 1.0 Last Use: today PRUDENCIO LOVE - 02/13/2010 15:53 CDT Alcohol Use: Yes PRUDENCIO LOVE - 02/13/2010 15:53 CDT Caffeine Use Grid Caffeine Use: Current Type: Coffee, Tea Frequency: Daily Amount: 2 cup/day Last Use: today PRUDENCIO LOVE - 02/13/2010 15:53 CDT Allergies Allergies (Active) NKA Estimated Onset Date: Unspecified ; Created By: SARAI NIXON; Reaction Status: Active ; Category:Drug ; Substance: NKA ; Type: Allergy ; Updated By: SARAI NIXON; Reviewed Date: 02/13/2010 15:53 CDT Source: [employer] Document Id: [id number] CDT!37 documented in this encounter Plan of Treatment Upcoming Encounters Date Type Specialty Care Team Description 04/12/2022 Office Visit Cardiovascular Disease Simone Gooden AP RN, C.N.P. [address] [phone] (Wo rk) documented as of this encounter Visit Diagnoses Not on filedocumented in this encounter
--- OUTSIDE RECORDS SUMMARY | 2022-03-29 08:01 | XMS_ITS | Encounter Summary ---
:1950 Author Organization [facility] Address [address] [place] [address] Care Team Providers Name Role Phone Unavailable Primary Care Provider Unavailable Encounter Details Date Type Department Care Team Description 02/26/2010 Hospital Encounter HX [facility] SURGEON Cristian [...] How often do you attend quaker or voodoo services? 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 - 02/26/2010 12:00 AM CDT [id number] IMPRESSION/REPORT/PLAN He is doing pretty well even though he has this and he is not in a lot of pain, so I think we should observe it for right now. There may come a point where I will have to aspirate, but I think right now we are going to leave this alone and see how he does. Will return in two weeks for a recheck. CHIEF COMPLAINT/REASON FOR VISIT Follow up HISTORY OF PRESENT ILLNESS Mr. Salazar is here for follow up of excision of a lipoma from the right flank area. He had a cysto procedure at the same time with a bladder tumor excision. He got a hematoma after the surgery. He has a lot of bruising on that side and you can feel the firmness in the wound from the hematoma, I would say it is at least the size the lipoma was which was about probably 6 cm. in diameter. RRB/sks Signed Ivan Vazquez M.D. General Surgery Electronically Signed By:IVAN VAZQUEZ MD On 03/08/2010 02:15 PM Source: [facility]SDOLBEYNONRADSYS Document Id: [id number] documented in this encounter Miscellaneous Notes Miscellaneous - Claude Alfaro L.P.N. - 02/26/2010 3:28 PM CDT Adult Mica Plate Layer Hand Intake/History Adult Mica Plate Layer Hand Intake/History Entered On: 02/26/2010 15:28 CDT Performed On: 02/26/2010 15:28 CDT by CLAUDE ALFARO LPN Intake Chief Complaint: post op Peripheral Pulse Rate: 90/min Systolic Blood Pressure: 154mmHg (HI) Diastolic Blood Pressure: 84mmHg NIBP Mean: 107mmHg BP Location: Right upper extremity Actual Weight: 104.700kg(Converted to: 230lb 13oz) Weight Source: Standing scale Dosing Weight Clinic: 104.70kg CLAUDE ALFARO LPN - 02/26/2010 15:28 CDT Subjective Pain Symptoms: No CLAUDE ALFARO LPN - 02/26/2010 15:28 CDT Dependent Habits Tobacco Use/Currently Using: Yes Exposure to Tobacco Smoke: Patient smokes CLAUDE ALFARO LPN - 02/26/2010 15:28 CDT Tobacco Use Grid Type: Cigarettes Cigarette Use Packs/Day: 1.0 Last Use: today CLAUDE ALFARO LPN - 02/26/2010 15:28 CDT Caffeine Use Grid Caffeine Use: Current Type: Coffee, Tea Frequency: Daily Amount: 2 cup/day Last Use: today CLAUDE ALFARO LPN - 02/26/2010 15:28 CDT Allergies Allergies (Active) NKA Estimated Onset Date: Unspecified ; Created By: SARAI NIXON; Reaction Status: Active ; Category:Drug ; Substance: NKA ; Type: Allergy ; Updated By: SARAI NIXON; Reviewed Date: 02/22/2010 8:31 CDT Source: [employer] Document Id: [id number] CDT!28 Miscellaneous - Claude Alfaro L.PBhaveshNBhavesh - 02/26/2010 3:28 PM CDT Ambulatory Vitals Height Weight Ambulatory Vitals Height Weight Entered On: 02/26/2010 15:29 CDT Performed On: 02/26/2010 15:28 CDT by CLAUDE ALFARO LPN Vitals/Ht/Wt Systolic Blood Pressure: 138mmHg Diastolic Blood Pressure: 76mmHg NIBP Mean: 97mmHg BP Location: Right upper extremity CLAUDE ALFARO LPN - 02/26/2010 15:28 CDT Source: [employer] Document Id: [id number] CDT!6 documented in this encounter Plan of Treatment Upcoming Encounters Date Type Specialty Care Team Description 04/12/2022 Office Visit Cardiovascular Disease Simone Gooden AP RN, C.N.P. [address] [phone] (Wo rk) documented as of this encounter Visit Diagnoses Not on filedocumented in this encounter
--- OUTSIDE RECORDS SUMMARY | 2022-03-29 08:01 | XMS_ITS | Encounter Summary ---
:1950 Author Organization [facility] Address [address] [place] [address] Care Team Providers Name Role Phone Unavailable Primary Care Provider Unavailable Encounter Details Date Type Department Care Team Description 02/13/2010 Hospital Encounter HX [facility] SURGEON Cristian [...] How often do you attend mormon or buddhist services? 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 - 02/13/2010 12:00 AM CDT [id number] IMPRESSION/REPORT/PLAN Probable lipomatous mass, right flank area. The patient would like to have this removed because it is causing him discomfort. I told him we could do this, but that it would be best done in the operating room under local anesthesia with some IV sedation because of its size. We will be setting this up for 02/19/2010. He will need to see Dr. Sanchez for a preop. CHIEF COMPLAINT/REASON FOR VISIT Probable lipoma, right flank area. HISTORY OF PRESENT ILLNESS The patient is seen at the request of Dr. Sanchez because of a probable lipoma in his right flank area which is causing him discomfort. It is kind of between the flank and the right lower quadrant. It is at least a 6 or 7 centimeter mass x about 2 to 3 centimeters. It feels like a lipoma in the deeper subcutaneous tissue. RRB/nmd Signed Ivan Vazquez M.D. General Surgery Electronically Signed By:IVAN VAZQUEZ MD On 02/21/2010 05:28 PM Source: [facility]SDOLBEYNONRADSYS Document Id: [id number] documented in this encounter Nursing Notes Conversion, Historical Provider Ser - 02/13/2010 2:13 PM CDT Surgery Scheduled Excision of a 6cm right lower abdominal wall lipoma under local anesthesia with sedation scheduled for 02/19/10 at [facility] with Dr. Vazquez. Insurance referral completed. Pre-op physical scheduled with Dr. Sanchez. Seven was advised to be NPO after midnight the night before surgery, and he was instructed not to take any aspirin, advil, motrin or ibuprofen. He will arrive at 9:30am for a 10:30am surgery. The OR was notified. Electronically Signed By:BHAVNA PENA LPN On 02/13/2010 02:19 pm Source: [facility] POWERCHART Document Id: [id number] documented in this encounter Miscellaneous Notes Miscellaneous - Conversion, Historical Provider Ser - 02/13/2010 1:13 PM CDT Adult Dogman/Woman Intake/History Adult Dogman/Woman Intake/History Entered On: 02/13/2010 13:15 CDT Performed On: 02/13/2010 13:13 CDT by BARB GILL LPN Intake Chief Complaint: excision lipoma Peripheral Pulse Rate: 84/min Systolic Blood Pressure: 130mmHg Diastolic Blood Pressure: 84mmHg NIBP Mean: 99mmHg BP Location: Right upper extremity Heart Rhythm: Regular Actual Weight: 103.600kg(Converted to: 228lb 6oz) Weight Source: Standing scale Dosing Weight Clinic: 103.60kg BARB GILL [facility] 02/13/2010 13:13 CDT Subjective Pain Symptoms: No BARB GILL [facility] 02/13/2010 13:13 CDT Dependent Habits Tobacco Use/Currently Using: Yes Tobacco Use/Advised to Quit: Yes Exposure to Tobacco Smoke: Patient smokes BARB GILL [facility] 02/13/2010 13:13 CDT Tobacco Use Grid Type: Cigarettes Cigarette Use Packs/Day: 1.0 Last Use: today BARB GILL [facility] 02/13/2010 13:13 CDT Caffeine Use Grid Caffeine Use: Current Type: Coffee, Tea Frequency: Daily Amount: 2 cup/day Last Use: today BARB GILL [facility] 02/13/2010 13:13 CDT Allergies Allergies (Active) NKA Estimated Onset Date: Unspecified ; Created By: SARAI NIXON; Reaction Status: Active ; Category:Drug ; Substance: NKA ; Type: Allergy ; Updated By: SARAI NIXON; Reviewed Date: 02/13/2010 13:12 CDT Source: [facility] [employer] Document Id: [id number] CDT!30 documented in this encounter Plan of Treatment Upcoming Encounters Date Type Specialty Care Team Description 04/12/2022 Office Visit Cardiovascular Disease Simone Gooden AP RN, C.N.P. [address] [phone] (Wo rk) documented as of this encounter Visit Diagnoses Not on filedocumented in this encounter
[2022-03-29 08:07] LABS: NT Pro B Type NatriureticPept* 206 PG/mL (0-125)
[2022-03-29 08:10] LABS: PCR FLU A Negative PCR FLU A (Negative); PCR FLU B Negative PCR FLU B (Negative)
[2022-03-29 08:11] LABS: SARS PCR* POSITIVE SARS-CoV-2 (Negative)
--- NOTE | 2022-03-29 08:26 | W.PC.EDHO ---
Primary Language: Preferred Language: Orientation Status: [X] Alert & Oriented [] Slight Confusion [] Known Dx Dementia Transfers By: [] Assist of 1 [] Assist of 2 [] Lift Independent Active Medications Discontinued Medications Generic Name Dose Route Start Last Admin Trade Name Marino PRN Reason Stop Dose Admin Sodium Chloride 1,000 mls @ 1,000 mls/hr 03/29/22 07:15 03/29/22 07:22 0.9 % Sodium Chloride 1000 Ml IV 03/29/22 08:14 1,000 mls/hr .Q1H CLIFF Administration Description of Symptoms ED Triage Present Problem Patient arrives [facility] with c/o dizziness and low Description heart rate. Patient states 911 was called by coworkers when the patient states he felt like he was going to faint. Patient took 2 nitro prior to EMS arrival. Patient was found to have dizziness and hypotension by EMS and was given 1mg atropine with increase in HR and BP. Patient denies CP, SOB , recent illness, cough, fever, diarrhea. Patient has h/o CAD with stents placed at [facility]. Patient given a total of 324mg ASA. ED Triage Date of Onset of 03/29/22 Symptoms [place] Coma Scale [place] coma scale total score 15 IV Insertion/Site Date of IV Line Insertion [ 03/29/22 Left Wrist] Oxygen Administration Pulse Oximetry 99 Pulse Oximetry 99 Pulse Oximetry 99 Pulse Oximetry 99 Pulse Oximetry 98 Pulse Oximetry 98 Pulse Oximetry 98 Pulse Oximetry 98 Pulse Oximetry 96 Pulse Oximetry 95 Pulse Oximetry 92 Pulse Oximetry 91 Pulse Oximetry 92 Pulse Oximetry 92 Pulse Oximetry 96 Oxygen Delivery Method Room Air Cardiac Monitoring EKG Method 12 Lead
--- NOTE | 2022-03-29 09:08 | ED.NURSE ---
Report to MARGARITA Andrade on MS
--- NOTE | 2022-03-29 09:20 | ED.NURSE ---
Pt and belongings brought to room 276 via w/c
[2022-03-29 11:53] LABS: Appearance Urine Clear (Clear); Bilirubin Urine Negative (Negative); Blood Urine Negative (Negative); Color Urine Dark yellow (Yellow); Glucose Urine Negative (Negative); Ketones Urine Negative (Negative); Leukocyte Esterase Urine Negative (Negative); Nitrite Urine Negative (Negative); Protein Urine Negative (Negative); Specific Gravity Urine 1.025 (1.000-1.030); Urobilinogen Urine 0.2 (0.2-1.0); pH Urine 5.5 (5.0-8.5)
--- NOTE | 2022-03-29 11:55 | PM.IMHP1 ---
Hospitalist- H&P: HPI History of Present Illness Date Seen: 03/29/22 Chief complaint: Low heartrate Narrative: Seven Salazar is a 72 year old male who was BIBA to the ED this morning for symptomatic lightheadedness. Patient notes illness that began yesterday with fatigue and decreased appetite; needed to sleep most of the afternoon yesterday, which is very atypical for him. Today, was not yet back to baseline but he went to work at [employer]. While there, he had an acute episode of lightheadedness and diaphoresis; he took nitroglycerin x1 and called EMS. Patient was noted to be bradycardic and hypotensive with a heart rate in the 50s and blood pressure 90/50 upon EMS arrival. EMS administered atropine prior to ER transfer. Patient has not had any nausea, vomiting, or stool changes. He has not had any chest pain or dyspnea accompanying his symptoms. He started coughing soon after arrival to the emergency room, but had not been coughing previously. ER course and findings: - hypotension, BP sanjay in ED 70/50. Treated with IVF bolus - sinus rhythm in the 70s on EKG with RBBB (chronic, per chart review) - negative troponin - positive COVID - no acute findings on chest x-ray Patient admitted to the hospital for symptomatic bradycardia and COVID infection. Past medical history includes coronary artery disease with stable angina. Patient had multiple cardiac stents placed in 2017, followed by an nSTEMI in 2018, repeat angiography at that time revealed diffuse nonobstructive coronary artery disease, currently managed with dual anti-platelet therapy. Other past medical and surgical history updated in tabs below. He is COVID vaccinated, PCP is Dr. Dockery at the [facility] in [place]. Outpatient HR was 80 during recent clinic visit. Patient lives alone, he is . He works at [employer] (formerly [employer]). He continues to smoke, approximally 1 pack of cigarettes per week. He declines nicotine replacement. No alcohol use. Son Trino in [place], [place] would be medical decision maker if needed. Patient requests DNI status, he is amenable to CPR and pharmacologic intervention for ACS. Review of Systems Status of ROS: Reports: 10 or more systems reviewed and unremarkable except as noted in History and below Narrative: No urinary changes, no GI symptoms accompanying his decreased appetite. Mild cough as noted in HPI. PFSH PFS Medical History (Updated 03/29/22 @ 12:24 by Anamika Morales MD) Nonmalignant tumors Osteoarthritis Surgical History (Updated 03/29/22 @ 12:13 by Anamika Morales MD) H/O laminectomy History of appendectomy History of bladder surgery History of intravascular stent placement History of melanoma excision History of tonsillectomy History of total replacement of left shoulder joint (05/17/14) History of total replacement of right shoulder joint (05/07/13) Stented coronary artery Family History (Updated 01/02/22 @ 15:05 by Bina Dan CMA) Father Liver cancer Sister Liver cancer Brother Heart disease Social History (Updated 01/02/22 @ 15:06 by Bina Dan CMA) Smoking Status: Current every day smoker What tobacco products do you use: cigarettes Smoking packs per day: 2 Smoking cigarettes per day: 40.0 Do you use any of these nicotine containing products: None Second hand tobacco smoke exposure: No How often do you have a drink containing alcohol: never AUDIT-C Alcohol total score: 0 Non-prescribed substance use: denies use Caffeine: Yes (Daily) Are you now , , , , never or living with a partner: Social isolation score (0-1 are the most socially isolated patients): 0 Meds Home Medications and Allergies Home Medications Medication Instructions Recorded Confirmed Type albuterol sulfate 90 mcg/actuation 2 puff inhalation Q4-6H PRN 01/02/22 03/29/22 History aerosol inhaler atorvastatin 80 mg tablet 80 mg PO QDAY 01/02/22 03/29/22 History clopidogrel 75 mg tablet 75 mg PO QDAY 01/02/22 03/29/22 History isosorbide mononitrate 60 mg 60 mg PO DAILY 01/02/22 03/29/22 History tablet,extended release 24 hr lisinopril 20 mg tablet 20 mg PO QDAY 01/02/22 03/29/22 History metoprolol succinate 25 mg 25 mg PO DAILY 01/02/22 03/29/22 History tablet,extended release 24 hr nitroglycerin 0.4 mg sublingual 0.4 mg sublingual Q5M PRN 01/02/22 03/29/22 History tablet aspirin 81 mg tablet,delayed 81 mg PO DAILY 03/29/22 03/29/22 History release (Adult Low Dose Aspirin) Allergies Allergy/AdvReac Type Severity Reaction Status Date / Time No Known Allergies Allergy Unknown Unverified 01/02/22 15:10 Exam Narrative: Exam Narrative: GEN: Alert and oriented, answering questions appropriately HEENT: Normal external ears, EOMIs bilaterally CV: RRR, No concerning murmurs, rubs, or gallops R: LCTA bilaterally without concerning wheezing, rales, or rhonchi. Air movement adequate Ext: wwp, no concerning edema Skin: No concerning skin lesions or rashes on exposed skin Neuro: Nonfocal, no resting tremor, gait not observed Psych: Appropriate Const: Vital Signs, click to edit/add: Vital Signs - 24 hr 03/29/22 07:11 03/29/22 07:16 03/29/22 07:19 Temperature 96.9 F L Pulse Rate 62 63 Pulse Rate [Right Radial] 50 L Respiratory Rate 18 Blood Pressure 94/62 Blood Pressure [Ri ght Upper Arm] 113/65 Pulse Oximetry 96 92 92 Oxygen Delivery Me thod Room Air 03/29/22 07:20 03/29/22 07:25 03/29/22 07:29 Temperature Pulse Rate 65 60 61 Pulse Rate [Right Radial] Respiratory Rate Blood Pressure 79/50 L Blood Pressure [Ri ght Upper Arm] Pulse Oximetry 91 92 95 Oxygen Delivery Me thod 03/29/22 07:30 03/29/22 07:32 03/29/22 07:35 Temperature Pulse Rate 64 65 55 L Pulse Rate [Right Radial] Respiratory Rate Blood Pressure 95/57 L Blood Pressure [Ri ght Upper Arm] Pulse Oximetry 96 98 98 Oxygen Delivery Me thod 03/29/22 07:37 03/29/22 07:40 03/29/22 07:42 Temperature Pulse Rate 54 L 53 L 56 L Pulse Rate [Right Radial] Respiratory Rate Blood Pressure 108/59 L 108/59 L Blood Pressure [Ri ght Upper Arm] Pulse Oximetry 98 98 99 Oxygen Delivery Me thod 03/29/22 07:45 03/29/22 07:47 03/29/22 07:50 Temperature Pulse Rate 54 L 57 L 51 L Pulse Rate [Right Radial] Respiratory Rate Blood Pressure 108/60 Blood Pressure [Ri ght Upper Arm] Pulse Oximetry 99 99 99 Oxygen Delivery Me thod 03/29/22 07:52 03/29/22 07:55 03/29/22 07:58 Temperature Pulse Rate 54 L 56 L Pulse Rate [Right Radial] Respiratory Rate Blood Pressure 107/65 113/60 Blood Pressure [Ri ght Upper Arm] Pulse Oximetry 99 98 Oxygen Delivery Me thod 03/29/22 08:00 03/29/22 08:02 03/29/22 08:05 Temperature Pulse Rate 55 L 53 L 55 L Pulse Rate [Right Radial] Respiratory Rate Blood Pressure 122/67 Blood Pressure [Ri ght Upper Arm] Pulse Oximetry 97 97 97 Oxygen Delivery Me thod 03/29/22 08:10 03/29/22 08:15 03/29/22 08:19 Temperature Pulse Rate 52 L 52 L 52 L Pulse Rate [Right Radial] Respiratory Rate Blood Pressure 141/68 H Blood Pressure [Ri ght Upper Arm] Pulse Oximetry 97 97 97 Oxygen Delivery Me thod 03/29/22 08:20 03/29/22 08:25 03/29/22 08:30 Temperature Pulse Rate 51 L 51 L 50 L Pulse Rate [Right Radial] Respiratory Rate Blood Pressure Blood Pressure [Ri ght Upper Arm] Pulse Oximetry 97 96 98 Oxygen Delivery Me thod 03/29/22 08:32 03/29/22 08:35 03/29/22 08:40 Temperature Pulse Rate 48 L 51 L 47 L Pulse Rate [Right Radial] Respiratory Rate Blood Pressure 112/88 Blood Pressure [Ri ght Upper Arm] Pulse Oximetry 97 97 96 Oxygen Delivery Me thod 03/29/22 08:45 03/29/22 08:46 03/29/22 08:50 Temperature Pulse Rate 48 L 47 L 47 L Pulse Rate [Right Radial] Respiratory Rate Blood Pressure 118/64 Blood Pressure [Ri ght Upper Arm] Pulse Oximetry 95 96 96 Oxygen Delivery Me thod 03/29/22 08:55 03/29/22 09:00 03/29/22 09:02 Temperature 97.1 F L Pulse Rate 50 L 48 L 52 L Pulse Rate [Right Radial] Respiratory Rate Blood Pressure 119/71 Blood Pressure [Ri ght Upper Arm] Pulse Oximetry 96 96 98 Oxygen Delivery Me thod 03/29/22 09:51 03/29/22 10:00 03/29/22 10:42 Temperature 97.1 F L Pulse Rate 55 L Pulse Rate [Right Radial] Respiratory Rate 18 18 Blood Pressure Blood Pressure [Ri ght Upper Arm] Pulse Oximetry 96 96 Oxygen Delivery Me thod Room Air Room Air Hospitalist - H&P: Result Labs Labs: Short CBC 03/29/22 Range/Units 07:24 WBC 5.37 (4.50-11.00) K/uL Hgb 14.3 (13.5-17.5) gm/dL Hct 42.7 (37.0-53.0) % Plt Count 178 (140-440) K/uL BMP 03/29/22 07:24 Sodium 137 Potassium 4.4 Chloride 104 Carbon Dioxide 29 BUN 23 Creatinine 1.0 Glucose 111 Calcium 8.9 Urine 03/29/22 Range/Units 11:45 Urine Color Dark yellow (Yellow) Urine Appearance Clear (Clear) Urine pH 5.5 (5.0-8.5) Ur Specific [place] 1.025 (1.000-1.030) Urine Protein Negative (Negative) Urine Glucose (UA) Negative (Negative) Assessment and Plan Assessment and plan (1) COVID: Problem comment: - given comorbidities and severity of illness, treat with remdesivir Status: Acute (2) Coronary artery disease: Problem comment: - given symptoms and history will follow troponins - continue home medications Status: Acute (3) Acute hypotension: Problem comment: - treat with IV fluids in the emergency room, resolved upon arrival to the floor - continue home medications for hypertension with holding parameters Status: Acute (4) Near syncope: Problem comment: - likely related to bradycardia and hypotension from acute illness; follow orthostatics - obtain TTE Status: Acute (5) Bradycardia: Problem comment: - iatrogenic vs related to acute illness - follow with telemetry, TTE today Status: Acute Plan - per above - SCDs, aspirin, Plavix for prophylaxis - patient requests DNI status
[2022-03-29 12:03] LABS: Squamous Epithelial Cell Urine Few (None-Few); WBC Urine 0-2 (0-5)
--- NOTE | 2022-03-29 13:31 | PC.NURSE ---
PATIENT ALERT AND ORIENTED, ALTHOUGH FORGETFUL AND CONFUSED AT TIMES, NEEDS LOT OF DIRECTION, UP HEAVY A1 WITH WALKER AND BELT TO CHAIR AND BACK TO BED, USING URINAL AT BEDSIDE WITH TANK STAVE ASSEMBLER, TOLERATING REGULAR DIET DOES NEED ASSISTANCE WITH SET UP.
--- NOTE | 2022-03-29 13:41 | PC.NURSE ---
PATIENT PLEASANT AND COOPERATIVE, ALERT AND ORIENTED, UP SBA WITHOUT ANY ADAPTIVE DEVICES, DECLINING LIGHTHEADEDNESS, DIZZINESS, SOB AND CP, DECLINING PAIN ALTHOUGH DOES HAVE KNEE PAIN NOT REQUIRING ANY MEDICATION AT THIS TIME, TELE SINUS ARRHYTHMIA/BEVERLY WITH BBB, TOLERATING REGULAR DIET REPORTING POOR APPETITE AT HOME, ENCOURAGING PATIENT TO EAT MORE PROTIEN WITH MEALS.
[2022-03-29 13:52] LABS: Troponin I* < 0.01 ng/mL (0.01-0.04)
[2022-03-29] MEDS: PERFLUTREN LIPID MICROSPHERES 2 ML VIAL IV (15:00)
[2022-03-29] MEDS: SODIUM CHLORIDE 0.9 % (FLUSH) 10 ML SYRINGE 5 ML IVF (20:57)
--- NOTE | 2022-03-29 22:24 | PC.NURSE ---
Shift [id number]- Patient is sleepy throughout shift. He denies shortness of breath, lightheadedness, dizziness, or pain. HR from low 40s BPM at rest to 70s BPM. On RA with saturation >90%.
[2022-03-30] VITALS (7 sets, daily range): BP systolic 117–153; BP diastolic 53–71; PULSE 42–98; RESP 16–26; TEMP 36.7–36.9; O2SAT 93–98
--- NOTE | 2022-03-30 05:07 | PC.NURSE ---
[id number] Pt slept all night, denies pain, sob, lightheaded or dizziness. bradycardic all night, asymptomatic.
[2022-03-30 07:12] LABS: Basophils Absolute Auto 0.02 K/uL (0.00-0.30); Basophils Percent Auto 0.4 % (0.0-3.0); Hematocrit 42.2 % (37.0-53.0); Hemoglobin* 14.1 gm/dL (13.5-17.5); Immature Granulocytes Abs Auto 0.01 K/uL (0.00-0.30); Immature Granulocytes Pct Auto 0.2 %; Lymphocytes Absolute Auto 1.28 K/uL (0.90-2.90); Mean Corpuscular HGB Conc 33 gm/dL (32-36); Mean Corpuscular Hemoglobin 29 pg (26-34); Mean Corpuscular Volume 88 fL (80-100); Monocytes Percent Auto 10.3 % (0.0-11.0); Neutrophils Absolute Auto 3.47 K/uL (1.7-7.0); Neutrophils Percent Auto 65.1 % (42.0-72.0); Platelet Count* 177 K/uL (140-440); Red Blood Count 4.79 m/uL (4.30-5.90); White Blood Count* 5.33 K/uL (4.50-11.00)
[2022-03-30 07:21] LABS: Slide Review Reflex No
[2022-03-30 07:30] LABS: Chloride* 105 mmol/L (96-114)
[2022-03-30 07:31] LABS: Sodium* 138 mmol/L (135-149)
[2022-03-30 07:33] LABS: Creatinine* 0.8 mg/dL (0.5-1.5); Est. Creatinine Clearance* 63.65; Estimated Glomerular Filt Rate 93 ml/min
[2022-03-30 07:34] LABS: Blood Urea Nitrogen* 18 mg/dL (7-30); Calcium* 8.9 mg/dL (8.4-10.6); Carbon Dioxide* 29 mmol/L (20-32); Glucose* 71 mg/dL (60-115)
[2022-03-30 07:46] LABS: Troponin I* < 0.01 ng/mL (0.01-0.04)
[2022-03-30] MEDS: ATORVASTATIN CALCIUM 40 MG TABLET 80 MG PO (09:09)
[2022-03-30] MEDS: METOPROLOL SUCCINATE (XL) 25 MG TAB PO (09:09)
[2022-03-30] MEDS: lisinopriL 20 MG TABLET PO (09:09)
[2022-03-30] MEDS: CLOPIDOGREL 75 MG TABLET PO (09:09)
[2022-03-30] MEDS: ISOSORBIDE MONONITRATE ER 30 MG TAB 60 MG PO (09:09)
[2022-03-30] MEDS: ASPIRIN 81 MG TABLET EC PO (09:09)
[2022-03-30] MEDS: SODIUM CHLORIDE 0.9 % (FLUSH) 10 ML SYRINGE 5 ML IVF (09:10)
--- NOTE | 2022-03-30 10:30 | P.DS_ITS ---
DS: Providers Provider Date Seen: 03/30/22 Date of admission: 03/29/22 09:11 Primary care physician: Not a Local Provider Admitting Clinician: Anamika Morales MD Attending Physician on discharge: Anamika Morales MD Date of Discharge: 03/30/22 DS: Diagnosis Discharge Diagnosis (1) Bradycardia: Status: Acute Problem details: - iatrogenic vs related to acute illness - sinus bradycardia noted on telemetry throughout stay, patient asymptomatic - patient checks VS at home, notes that his HR is typically in the 50s (2) Coronary artery disease: Status: Acute Problem details: - given symptoms and history will follow troponins - continue home medications TTE performed 03/29 Final Impressions: Limited Echocardiogram performed 1. Normal left ventricular size, mildly increased wall thickness, normal global systolic function, calculated EF of 65 %. 2. Echo contrast was administered to enhance visualization of all left ventricular segments. 3. Right ventricular cavity size is normal, global systolic RV function is normal. 4. Normal left atrium size. 5. The aortic valve is sclerotic, no stenosis and trivial regurgitation. 6. The mitral valve is moderate mitral annular calcification (posterior), trace mitral regurgitation. 7. 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 8. No pericardial effusion. (3) Acute hypotension: Status: Acute Problem details: - treat with IV fluids in the emergency room, resolved upon arrival to the floor - continue home medications for hypertension with holding parameters (4) COVID: Status: Acute Problem details: - patient remained stable, did not require supplemental oxygen or COVID-sp ecific therapies (5) Near syncope: Status: Acute Problem details: - likely related to bradycardia and hypotension from acute illness; + orthostatic hypotension - patient much improved on hospital day 1, requesting d/c home DS: Summary Hospital Course Hospital Course: Patient is a very pleasant 72-year-old male who was BIBA to the emergency room on 03/29/2022 for an acute episode of hypo tension and diaphoresis while working at [employer]. Patient was subsequently found to be positive for COVID in the emergency department, hospitalized for observation given coronary artery disease history. Seven did well during hospital stay; he was noted to have orthostatic hypotension but no syncope or near-syncope. He was also found to have sinus bradycardia on telemetry throughout stay; notes that his home pulses typically in the 50s and he remained asymptomatic. He did not require any supplemental oxygen or COVID specific therapies during hospitalization. Troponins remained negative during stay. TTE was obtained with reassuring andrew shelton as noted above, and he was requesting discharge home on hospital day 1; we discussed that as long as he is asymptomatic from his orthostatic hypotension and bradycardia, tolerating p.o. intake, and isolates given his positive COVID test, he is medically cleared for discharge. He will see his PCP early next week for hospital follow-up and we discussed restrictions regarding return to work at [employer]. Time Spent with Patient Time attestation: Total time spent providing and/or coordinating discharge services: Time spent: Greater than 30 minutes Specific discharge activities: Medication reconciliation, discharge teaching Exam Narrative: Exam Narrative: GEN: Alert and oriented, answering questions appropriately with normal thought process. He is able to sit up in bed during my exam and has no dizziness, lightheadedness, or presyncope HEENT: EOMIs bilaterally, no scleral icterus CV: Sinus bradycardia with rate in the 50s during my exam, no concerning murmurs R: LCTA bilaterally without concerning wheezing, rales, or rhonchi, air movement adequate Ext: wwp, no concerning edema Skin: No concerning skin lesions or rashes on exposed skin Neuro: Nonfocal Psych: Appropriate Const: Vital Signs, click to edit/add: Vital Signs - 24 hr 03/29/22 10:42 03/29/22 11:00 03/29/22 16:15 Temperature 97.1 F L Pulse Rate 55 L Pulse Rate [Pulse Oximeter] Pulse Rate [orthos tatic lying] Pulse Rate [orthos tatic sitting] Pulse Rate [orthos tatic standing] Respiratory Rate 18 Blood Pressure [Le ft Arm] 144/86 H Blood Pressure [or thostatic lying] Blood Pressure [or thostatic sitting] Blood Pressure [or thostatic standing ] Pulse Oximetry 96 93 Oxygen Delivery Me thod Room Air Room Air 03/29/22 16:15 03/29/22 15:27 03/29/22 18:19 Temperature 97.5 F L Pulse Rate 60 Pulse Rate [Pulse Oximeter] 55 L Pulse Rate [orthos tatic lying] 56 L Pulse Rate [orthos tatic sitting] 53 L Pulse Rate [orthos tatic standing] 59 L Respiratory Rate 18 Blood Pressure [Le ft Arm] 138/71 Blood Pressure [or thostatic lying] 154/73 H Blood Pressure [or thostatic sitting] 150/66 H Blood Pressure [or thostatic standing ] 133/75 Pulse Oximetry 93 Oxygen Delivery Me thod 03/29/22 23:00 03/29/22 23:00 03/30/22 01:23 Temperature 98.1 F Pulse Rate 46 L Pulse Rate [Pulse Oximeter] 51 L Pulse Rate [orthos tatic lying] Pulse Rate [orthos tatic sitting] Pulse Rate [orthos tatic standing] Respiratory Rate 18 16 Blood Pressure [Le ft Arm] 157/71 H Blood Pressure [or thostatic lying] Blood Pressure [or thostatic sitting] Blood Pressure [or thostatic standing ] Pulse Oximetry 93 93 Oxygen Delivery Me thod Room Air Room Air 03/30/22 02:59 Temperature 98.1 F Pulse Rate Pulse Rate [Pulse Oximeter] 49 L Pulse Rate [orthos tatic lying] Pulse Rate [orthos tatic sitting] Pulse Rate [orthos tatic standing] Respiratory Rate 16 Blood Pressure [Le ft Arm] 117/53 L Blood Pressure [or thostatic lying] Blood Pressure [or thostatic sitting] Blood Pressure [or thostatic standing ] Pulse Oximetry 93 Oxygen Delivery Me thod Room Air DS: Data Data Completed and Pending Labs on day of discharge: Labs from last 24 hours 03/30/22 03/30/22 03/29/22 06:20 06:20 12:51 WBC 5.33 RBC 4.79 Hgb 14.1 Hct 42.2 MCV 88 MCH 29 MCHC 33 RDW Coeff of Alin 13.0 Plt Count 177 Neut % (Auto) 65.1 Lymph % (Auto) 24.0 [place] % (Auto) 10.3 Eos % (Auto) 0.0 Baso % (Auto) 0.4 Neut # (Auto) 3.47 Lymph # (Auto) 1.28 [place] # (Auto) 0.50 Eos # (Auto) 0.00 Baso # (Auto) 0.02 Abs Immat Gran (auto) 0.01 Imm/Tot Granulo (auto) 0.2 Sodium 138 Potassium 4.0 Chloride 105 Carbon Dioxide 29 BUN 18 Creatinine 0.8 Estimated Creat Clear 63.65 Estimated GFR 93 Glucose 71 Calcium 8.9 Troponin I < 0.01 L < 0.01 L Urine Color Urine Appearance Urine pH Ur Specific [place] Urine Protein Urine Glucose (UA) Urine Ketones Urine Blood Urine Nitrite Urine Bilirubin Urine Urobilinogen Ur Leukocyte Esterase Urine RBC Urine WBC Ur Squamous Epith Cells Urine Bacteria 03/29/22 11:45 WBC RBC Hgb Hct MCV MCH MCHC RDW Coeff of Alin Plt Count Neut % (Auto) Lymph % (Auto) [place] % (Auto) Eos % (Auto) Baso % (Auto) Neut # (Auto) Lymph # (Auto) [place] # (Auto) Eos # (Auto) Baso # (Auto) Abs Immat Gran (auto) Imm/Tot Granulo (auto) Sodium Potassium Chloride Carbon Dioxide BUN Creatinine Estimated Creat Clear Estimated GFR Glucose Calcium Troponin I Urine Color Dark yellow Urine Appearance Clear Urine pH 5.5 Ur Specific [place] 1.025 Urine Protein Negative Urine Glucose (UA) Negative Urine Ketones Negative Urine Blood Negative Urine Nitrite Negative Urine Bilirubin Negative Urine Urobilinogen 0.2 Ur Leukocyte Esterase Negative Urine RBC 2-5 A Urine WBC 0-2 Ur Squamous Epith Cells Few Urine Bacteria None Discharge Plan Discharge Disposition: Home, Self-Care Date of Admission: 03/29/22 09:11 Attending Provider on Discharge: Anamika Morales Primary Care Provider: Provider,Not a Local Condition: Improved Anticipated Discharge Date/Time: 03/30/22 12:00 Discharge Medications: New isosorbide mononitrate 30 mg tablet extended release 24 hr 30 mg PO DAILY Qty: 30 2RF Continued clopidogrel 75 mg tablet 75 mg PO QDAY lisinopril 20 mg tablet 20 mg PO QDAY nitroglycerin 0.4 mg tablet, sublingual 0.4 mg sublingual Q5M PRN albuterol sulfate 90 mcg/actuation HFA aerosol inhaler 2 puff inhalation Q4-6H PRN atorvastatin 80 mg tablet 80 mg PO QDAY metoprolol succinate 25 mg tablet extended release 24 hr 25 mg PO DAILY aspirin [Adult Low Dose Aspirin] 81 mg tablet,delayed release (DR/EC) 81 mg PO DAILY Discontinued isosorbide mononitrate 60 mg tablet extended release 24 hr 60 mg PO DAILY Discharge Orders: Discharge Order (Routine); Ordered 03/30/22 Ordered By: Anamika Morales Patient Education: COVID-19 (Coronavirus Disease 2019) (GEN) Additional Instructions: No work until , 04/04. Mask until 04/07 (this is 10 days from your + COVID test). See Dr. Dockery next week to make sure you're doing okay and to see if your colonoscopy needs to be postponed. Activity Level: Activity as Tolerated and No strenuous activity Activity Detail: Make sure you're not getting up too fast. Stay hydrated and make sure you're eating regularly. Discharge Diet: Regular Follow Up Appointments: Faiaz Dockery DO [Other] - None (PCP unavailable) Brendan Santizo [employer] [employer] [facility] [Other] - 04/01/22 9:10 am Forms: [employer] Info Instructions Discharge Comments: Postponed events of
--- NOTE | 2022-03-30 16:22 | PC.NURSE ---
shift note: pt dc'd to home @1200. pt denies pain or difficulty breathing. Iv dc'd Lt Wrist intact. tele monitor reading Sbrady with rate 42-50/min. Pt asymptomatic of slow HR. LS remain clr. Reviewed pt dc and copies sent with pt at dc. Belongings sent with pt at dc.
== END 2022-03-30 12:00 | disposition home or self-care (01) ==
LOC: ED 08:07 → MEDSURG 09:13
PROVIDERS: Family Medicine; Admitting Provider Family Medicine; Emergency Provider Emergency Medicine; Visit Provider Family Medicine
DX: U07.1 COVID-19 (principal); I95.1 Orthostatic hypotension; R00.1 Bradycardia, unspecified; I25.10 Atherosclerotic heart disease of native coronary artery without angina pectoris; Z79.82 Long term (current) use of aspirin; I34.81 Nonrheumatic mitral (valve) annulus calcification; I77.819 Aortic ectasia, unspecified site; I34.0 Nonrheumatic mitral (valve) insufficiency; Z95.5 Presence of coronary angioplasty implant and graft; R05.9 Cough, unspecified; Z87.01 Personal history of pneumonia (recurrent); F17.210 Nicotine dependence, cigarettes, uncomplicated; I44.7 Left bundle-branch block, unspecified; I45.10 Unspecified right bundle-branch block
CPT/HCPCS: 36415; 71045; 80048; 81001; 83605; 83735; 83880; 84484; 85025; 87631; 93005; 93308; 93321; 93325; 96360; 99284; 99285; G0378; A9270; G0379; J7030; Q9957

== ENCOUNTER 2025-04-29 08:24 | Outpatient (CLI) | payer OTHER, SELFPAY | END 2025-04-29 08:25 | disposition home or self-care (01) | LOC: AMB 05-10 13:15 | PROVIDERS: Visit Provider Emergency Medicine Emergency Medical Services | DX: R07.89 Other chest pain (principal) | CPT/HCPCS: A0998 ==